=== PATIENT | female | born 1990 | race Caucasian/White ===

== ENCOUNTER 2017-11-17 22:09 | Emergency (ER) | payer MEDICAID, SELFPAY ==
[2017-11-17 22:10] VITALS: BP 136/87; PULSE 103; RESP 18; TEMP 37; O2SAT 100; BMI 22.6
--- NOTE | 2017-11-17 22:22 | EKG12_ITS ---
Test Reason : SEIZURE Blood Pressure : / mmHG Vent. Rate : 078 BPM Atrial Rate : 078 BPM P-R Int : 126 ms QRS Dur : 076 ms QT Int : 368 ms P-R-T Axes : 050 056 055 degrees QTc Int : 419 ms Normal sinus rhythm Normal ECG Confirmed by ART LIMON, ANGELICA ([id number]), film editor CRISTIANO BARAHONA ([id number]) on 11/23/2017 9:14:48 AM Referred By: Confirmed By:ANGELICA CORDOVA MD
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
[2017-11-17] MEDS: Acetaminophen 500 MG Tablet 1000 MG PO (22:37)
[2017-11-17] MEDS: Ondansetron ODT 4 MG Tablet PO (22:37)
[2017-11-17 22:48] LABS: Absolute Neutrophil Count 3.4 X10^3/uL (2.0-7.7); Basophil# 0.04 X10^3/uL; Basophil% 0.5 % (0-1); Eosinophil# 0.33 X10^3/uL; Eosinophils% 4.1 % (0-5); Hematocrit 41.8 % (37-47); Hemoglobin 14.3 g/dl (12.0-15.0); Lymphocyte % 41.3 % (19-41); Mean Corp Hgb Conc 34.2 g/gl (32-36); Mean Corpuscular Hgb 30.5 pg (27.0-32.0); Mean Corpuscular Volume 89.1 fL (81-99); Mean Platelet Vol. 10.7 fl (6.2-12.0); Monocyte# 0.95 X10^3/uL; Monocyte% 11.9 % (0-10); Neutrophil # 3.37 X10^3/uL (2.7-7.7); Neutrophil % 42.1 % (47-70); Platelet Count 252 K/mm3 (150-450); RBC Distribution Width CV 12.3 % (11.6-14.6); RBC Distribution Width SD 39.8 fl (35.1-43.9); Red Blood Count 4.69 M/mm3 (4.2-5.4)
[2017-11-17 22:52] LABS: POSITIVE COUNT NO; POSITIVE DIFFERENTIAL NO; POSITIVE MORPHOLOGY NO
[2017-11-17 23:00] LABS: Bacteria 0 SEEN /hpf (None Seen); Mucous, Urine 0 SEEN /hpf (<or=2+); Red Blood Cells-Urine 0 SEEN /hpf (0-5)
[2017-11-17 23:05] LABS: ALB/GLOB Ratio 0.9 RATIO (0.9-2.4); AST(SGOT) 8 U/L (15-37); Alanine Aminotransfer ALT/SGPT 12 U/L (13-56); Albumin, Serum 3.5 g/dL (3.2-5.0); Alkaline Phosphatase 66 U/L (45-117); Anion Gap 7 (5-15); BUN 14 mg/dL (7-18); BUN/Creat Ratio 13.9 RATIO (10-20); Calcium,Total 8.9 mg/dL (8.5-10.1); Chloride 107 mmol/L (98-107); Creatinine, Serum 1.01 mg/dL (0.55-1.02); EST Glomerular Filtration Rate 70 mL/min (>60); Est Glom Filt Rate - Afr Amer 84 mL/min (>60); Estimated Creatinine Clearance 78.32 ml/min; Globulin 3.8 g/dL (2.2-4.2); Glucose 87 mg/dL (74-106); Potassium 4.1 mmol/L (3.5-5.1); Protein, Total 7.3 g/dL (6.4-8.2); Sodium Level 140 mmol/L (136-145)
[2017-11-17 23:07] LABS: Color, Urine Yellow (Yellow); Glucose, Dipstick Normal (Normal); Ketone-Dipstick Negative (Negative); Leukocyte Esterase-Dipstick Negative /ul (Negative); Nitrite-Dipstick Negative (Negative); Occult Blood-Urine Negative /ul (Negative); Protein-Dipstick Negative (Negative); Specific Gravity, Urine 1.015 (1.002-1.030); Urine Bilirubin Dipstick Negative (Negative); Urine Clarity Cloudy (Clear); Urine Urobilinogen Normal (Normal)
[2017-11-17 23:11] LABS: Lactic Acid 1.1 mmol/L (0.4-2.0)
[2017-11-17 23:17] LABS: Amorphous Sediment 4+
[2017-11-17 23:18] LABS: Coarse Granular Cast 0-5 SEEN /lpf (0-5 /lpf)
[2017-11-17 23:19] LABS: Squamous Epithelial Cells - UA 0-5 SEEN /hpf (5-10); White Blood Cells 0-5 SEEN /hpf (0-5)
[2017-11-17 23:27] LABS: Amphetamine Urine VISTA NEGATIVE (<1000 ng/mL); Barbiturate Urine VISTA NEGATIVE (< 200 ng/mL); Benzodiazepine Urine VISTA NEGATIVE (< 200 ng/mL); Cocaine Urine VISTA NEGATIVE (< 300 ng/mL); Ecstacy Urine VISTA NEGATIVE (< 500 ng/mL); Methadone Urine VISTA NEGATIVE (< 300 ng/mL); PCP Urine VISTA NEGATIVE (< 25 ng/mL); THC Urine VISTA NEGATIVE (< 50 ng/mL); Vista UDS pH Range 7
[2017-11-18 00:11] LABS: Internal QC Validated? YES +Cl - CLEAR BKGD; Pregnancy, Urine Negative Negative
[2017-11-18 00:27] VITALS: BP 124/76; PULSE 76; RESP 16; O2SAT 98
== END 2017-11-18 00:31 | disposition home or self-care (01) ==
PROVIDERS: Emergency Provider Emergency Medicine; Family Provider Family Medicine; PCP Family Medicine
DX: R55 Syncope and collapse (principal); I48.91 Unspecified atrial fibrillation; F17.200 Nicotine dependence, unspecified, uncomplicated; Z79.899 Other long term (current) drug therapy
CPT/HCPCS: 80053; 80307; 80320; 81001; 81025; 83605; 85025; 93005; 99285; A4216; G0480

== ENCOUNTER → 2018-01-05 07:27 | Outpatient (CLI) | payer MEDICAID, SELFPAY ==
--- NOTE | 2018-01-14 11:51 | EEG_ITS ---
- Electroencephalogram Date of service 01/05/2018 This is an 18 channel electroencephalogram performed with photic stimulation and hyperventilation as well as EKG reference leads on this 27-year-old female with a history of losing track of time. International 10-20 electrode placement system is utilized. And remained awake throughout the recording without evidence of lateralizing or epileptiform changes. Background activity is 10-12 Hz symmetrically in the posterior leads which attenuates with eye opening. Hyperventilation is performed for 4 minutes with good effort with no lateralizing or epileptiform changes. Photic stimulation generates a normal symmetric driving response in the posterior leads , EKG rhythm strip recording is normal sinus rhythm throughout the recording. Impression: Normal awake electroencephalogram
== END ==
PROVIDERS: Family Provider Family Medicine; PCP Family Medicine; Visit Provider Family Medicine
DX: R56.9 Unspecified convulsions (principal)
CPT/HCPCS: 95819

== ENCOUNTER 2018-03-16 23:48 | Emergency (ER) | payer MEDICAID, SELFPAY ==
[2018-03-16 23:51] VITALS: BP 112/76; PULSE 81; RESP 18; TEMP 36.4; O2SAT 100; BMI 23.9
--- NOTE | 2018-03-17 00:26 | CT_ITS ---
STUDY: CT ABDOMEN AND PELVIS WITHOUT CONTRAST REASON FOR EXAM: Female, 27 years old. Left-sided abdominal pain and left groin pain for 2 days. RADIATION DOSAGE (If Supplied By Facility): CTDIvol = ( 6.95 ) mGy, DLP = ( 324.73 ) mGycm TECHNIQUE: Transaxial images were obtained from the dome of the diaphragm to the symphysis pubis without oral contrast, and without intravenous contrast. Sagittal and coronal images were reconstructed. Individualized dose optimization techniques were used for this CT. COMPARISON: CT of abdomen and pelvis dated August 28, 2013. FINDINGS: The visualized lung bases are unremarkable. The visualized portions of the heart are within normal limits. Normal liver. There is non-visualization of the gallbladder, which may be secondary to either contraction or a prior cholecystectomy. Normal spleen. Normal pancreas. Normal bilateral adrenal glands. There are nonobstructing right-sided renal calculi with the largest measuring about 3 mm in size. There are nonobstructing left-sided renal calculi with the largest measuring about 4 mm. There is no evidence for hydronephrosis, hydroureter or radiopaque ureteral calculus. Normal visualized stomach. There is no evidence for dilated bowel, ascites or pneumoperitoneum. The small bowel has a grossly normal appearance. Stool is visible throughout the colon with scattered diverticula. The appendix is visualized and appears normal. Normal abdominal aorta. There is venous distention of the inferior vena cava (IVC). Normal retroperitoneum. Normal urinary bladder. Normal visualized uterus. There is a small umbilical hernia containing fat. Normal osseous structures. CT/Abdomen/Pelvis without Cont IMPRESSION: 1. Nonobstructing bilateral renal calculi. 2. No CT evidence of acute intra-abdominal disease. Electronically Signed: Rachel Ortiz MD at 1:40 EDT , Service support ,
--- NOTE | 2018-03-17 00:39 | ED.DCSUM_ITS ---
- ER Visit Summary Date of Service: 03/17/18 Chief Complaint: [] Left hip and groin pain History of Present Illness: The patient is a 27 F complaining of left hip and groin pain for last 3 days. Gradual onset continuous stabbing pain. Current severity is mild after Tylenol. It was moderate. It hurts worse when she walks too long or sits too long. She went to [facility] and they gave her prednisone for possible sciatica and doxycycline for possible infection. They did no lab work or imaging studies. She came here for further evaluation. They did not tell her why they placed her on antibiotic. She denies a history of any sex since July. She denies any urinary symptoms. She did have a remote STD years ago but is not sexually active. She is on the NuvaRing. She has had sciatica in the past but this feels different. On the posterior lateral and medial portion of her left leg. Stops at her knee. She felt some lymph nodes were swollen in her groin a few days ago but that resolved. She said she had a temperature of 101 tonight. She took Tylenol she made it go away. Physical Examination: [] Vital signs reviewed General: Well-nourished well-developed Head: Normocephalic atraumatic Eyes: Pupils equal round and reactive to light extraocular movements intact ENT: TMs clear no hemotympanum no trauma Neck: Nontender full range of motion Cardiovascular: Regular rate rhythm no murmurs normal S1-S2 Respiratory: No distress clear to auscultation bilaterally chest nontender Abdomen: Soft tenderness left groin and left lower abdomen. nondistended normal bowel sounds no masses Back: Nontender no CVA tenderness Extremities. Mild tenderness left groin in left lateral thigh and quad. Decreased range of motion secondary to pain. Skin: Normal color no trauma Neuro alert oriented cranial nerves II through XII intact normal strength sensation reflexes Test Results: [] Emergency Department Course and Treatment: [] Patient did not want anything for symptoms. Lab work and CT abdomen pelvis obtained. Lab work is unremarkable including CBC chemistry and urine and . CT abdomen pelvis just shows renal calculi only. This is not the cause of her symptoms. These are inciden dotty findings. Nothing acute noted. Patient was reassured. She will not take the doxycycline. I think she was given this for chlamydia she had negative STI testing in the last several months. She is not sexually active. I told her she does not have to take this. It does not sound like sciatica. This could be viral related. She will follow-up as an outpatient. I do not think she needs to take the prednisone. Treatment Plan: [] Disposition: [] Impression: [] Left lower abdominal pain Left groin pain Left leg pain This note was generated with [employer] dictation software. It may contain incorrect words, spelling, and punctuation that were not noted in review of the chart prior to signing ED Disposition - Plan for ED Patient: Chief Complaint: Other, Pain/Inj Referrals: Deshaun Chao MD [Primary Care Provider] -
[2018-03-17 00:47] LABS: Absolute Lymphocyte Count 3.08 X10^3/ul (0.83-4.51); Absolute Neutrophil Count 5.5 X10^3/uL (2.0-7.7); Basophil# 0.03 X10^3/uL; Basophil% 0.3 % (0-1); Eosinophil# 0.27 X10^3/uL; Eosinophils% 2.8 % (0-5); Hematocrit 40.3 % (37-47); Hemoglobin 14.6 g/dl (12.0-15.0); Lymphocyte # 3.08 X10^3/ul (4.0); Mean Corp Hgb Conc 36.2 g/gl (32-36); Mean Corpuscular Hgb 31.3 pg (27.0-32.0); Mean Corpuscular Volume 86.3 fL (81-99); Mean Platelet Vol. 10.5 fl (6.2-12.0); Monocyte% 7.3 % (0-10); Neutrophil # 5.52 X10^3/uL (2.7-7.7); Neutrophil % 57.4 % (47-70); Platelet Count 259 K/mm3 (150-450); RBC Distribution Width CV 11.8 % (11.6-14.6); RBC Distribution Width SD 36.9 fl (35.1-43.9); Red Blood Count 4.67 M/mm3 (4.2-5.4); White Blood Count 9.6 K/mm3 (4.4-11.0)
[2018-03-17 00:47] LABS: Bacteria 0 SEEN /hpf (None Seen); Mucous, Urine 0 SEEN /hpf (<or=2+); Red Blood Cells-Urine 0 SEEN /hpf (0-5); White Blood Cells 0 SEEN /hpf (0-5)
[2018-03-17 00:50] LABS: Color, Urine Yellow (Yellow); Glucose, Dipstick Normal (Normal); Ketone-Dipstick Negative (Negative); Leukocyte Esterase-Dipstick Negative /ul (Negative); Nitrite-Dipstick Negative (Negative); Occult Blood-Urine Negative /ul (Negative); Protein-Dipstick Negative (Negative); Specific Gravity, Urine 1.015 (1.002-1.030); Urine Bilirubin Dipstick Negative (Negative); Urine Clarity Clear (Clear); Urine Urobilinogen Normal (Normal); Urine pH 6.5 (5.0 - 8.0)
[2018-03-17 00:50] LABS: POSITIVE COUNT NO; POSITIVE DIFFERENTIAL NO; POSITIVE MORPHOLOGY NO
[2018-03-17 00:58] LABS: Anion Gap 10 (5-15); BUN 12 mg/dL (7-18); BUN/Creat Ratio 13.8 RATIO (10-20); Calcium,Total 9.2 mg/dL (8.5-10.1); Chloride 105 mmol/L (98-107); Creatinine, Serum 0.87 mg/dL (0.55-1.02); EST Glomerular Filtration Rate 82 mL/min (>60); Est Glom Filt Rate - Afr Amer 100 mL/min (>60); Estimated Creatinine Clearance 90.93 ml/min; Glucose 100 mg/dL (74-106); Potassium 3.5 mmol/L (3.5-5.1); Sodium Level 137 mmol/L (136-145)
[2018-03-17 00:58] LABS: Squamous Epithelial Cells - UA 0-5 SEEN /hpf (5-10)
[2018-03-17 01:06] LABS: Pregnancy, Serum, hCG Quali. NEGATIVE Negative (0-9 Nonpreg)
[2018-03-17 02:15] VITALS: BP 107/75; PULSE 78; RESP 18; O2SAT 98
[2018-03-17 02:18] VITALS: BP 107/78; PULSE 78; RESP 18; O2SAT 98
--- NOTE | 2018-03-17 02:18 | ED.DEP ---
ED Disposition - Plan for ED Patient: Disposition: Home or Assisted Living Chief Complaint: Other, Pain/Inj Instructions: Abdominal Pain Referrals: Deshaun Chao MD [Primary Care Provider] -
== END 2018-03-17 02:21 | disposition home or self-care (01) ==
PROVIDERS: Emergency Provider Emergency Medicine; Family Provider Family Medicine; PCP Family Medicine
DX: R10.32 Left lower quadrant pain (principal); M79.652 Pain in left thigh; I48.91 Unspecified atrial fibrillation; Z86.19 Personal history of other infectious and parasitic diseases; Z72.0 Tobacco use; Z79.899 Other long term (current) drug therapy
CPT/HCPCS: 74176; 80048; 81001; 84703; 85025; 99284; A4216

== ENCOUNTER 2018-05-08 20:26 | Emergency (ER) | payer MEDICAID, SELFPAY ==
[2018-05-08 20:27] VITALS: BP 121/85; PULSE 108; RESP 20; TEMP 36.6; O2SAT 100; BMI 24.4
--- NOTE | 2018-05-08 20:34 | EKG12_ITS ---
Test Reason : CP Blood Pressure : / mmHG Vent. Rate : 099 BPM Atrial Rate : 099 BPM P-R Int : 124 ms QRS Dur : 074 ms QT Int : 324 ms P-R-T Axes : 065 074 062 degrees QTc Int : 415 ms Normal sinus rhythm Normal ECG Confirmed by ART LIMON, ANGELICA ([id number]), manuscript editor RCISTIANO BARAHONA ([id number]) on 05/11/2018 2:30:39 PM Referred By: TRISTEN Confirmed By:ANGELICA CORDOVA MD
--- NOTE | 2018-05-08 20:35 | RAD_ITS ---
STUDY: X-RAY CHEST REASON FOR EXAM: Female, 28 years old. Chest pain TECHNIQUE: Single frontal view COMPARISON: September 01, 2015 FINDINGS: The lungs are clear and expanded. There is no demonstrated pleural abnormality. Normal size heart. Normal mediastinum and elan. Normal visualized pulmonary arteries. Normal visualized aortic arch and descending thoracic aorta. Mild degenerative changes of the thoracic spine. Normal visualized ribs, clavicles, and shoulders. There is no demonstrated abnormality of the visualized soft tissue structures of the upper abdomen. RAD/Chest 1 View (Portable) IMPRESSION: Normal x-ray examination of the chest. Electronically Signed: Joey Cavanaugh DO at 21:35 EST Tel [phone], Service support ,
--- NOTE | 2018-05-08 20:35 | ED.VISSUMM ---
- ER Visit Summary Date of Service: 05/08/18 Chief Complaint: [] Sharp nonspecific chest pain to left neck and left shoulder since 6 PM today History of Present Illness: The patient is a 28 F [] history of chest pain etiology which is unclear, PVCs, indicates today around 6 PM she began having sharp chest pain to the left parasternal region left shoulder and left neck. She indicates she did not exert herself anyway she was did not do anything to cause the pain, she had a history of chest pain the past with a prior extensive evaluation including stress test echograms, though unremarkable she has had what sounds like a Holter monitor as her event monitors and was told one time she had frequent PVCs, she was seen by Dr. Cabral of [facility] who is now , she is on statalol for the PVCs, she indicates she had an ablation procedure for the PVCs but it did not work and she continued to have the PVCs so we was placed on that medicine. She has no history of DE PE or DVT she was not ill in any way today, she also has a history of reflux, she is not take any medicines for the reflux and this pain is not identical to previous episodes of reflux, no fever no cough normal bowel bladder habits denies , she believes she had PVCs today, On the monitoring manager here she is in a sinus rhythm no PVCs her EKG shows a sinus rhythm nothing acute Physical Examination: [] Blood pressure is 121/85 heart rate is 90 pulse ox is 100% on room air she is in no distress she takes her hand and draws it to her left sternal border across her left shoulder and then across her left neck General, no distress resting comfortably HEENT is generally unremarkable The neck is supple no adenopathy, palpation of the neck is entirely unremarkable Cardiovascular, regular rate and rhythm Lungs, clear bilateral Abdomen, soft nontender Extremities, no clubbing cyanosis or edema, palpation of the shoulder is entirely unremarkable full range of motion her pulses are symmetric upper lower extremities are completely normal Neurologic, awake alert answering questions appropriately moving all 4 extremities Nothing reproduces the pain She has had this pain in the past has had extensive prior evaluation at a different facility with a automatic lump making machine tender who is screening labs EKG Patient screening labs are all generally unremarkable please see those reports, I would like to reassess the patient she has is feeling better I explained to her we could arrange for admission versus discharge outpatient management report. Repeat her troponin, however she states she feels better does not wish to be admitted does not wish to have the troponin repeated wants to go home she indicates now that she is still under the care of [address] Cabral his colleagues who she can see for outpatient management of this recurring chest pain, she will follow-up with them return for change in symptoms Test Results: [] Emergency Department Course and Treatment: [] Treatment Plan: [] Disposition: [] Home stable Impression: [] Chest pain resolved This note was generated with [employer] dictation software. It may contain incorrect words, spelling, and punctuation that were not noted in review of the chart prior to signing ED Disposition - Plan for ED Patient: Chief Complaint: Chest Pain Referrals: Deshaun Chao MD [Primary Care Provider] -
[2018-05-08 20:38] VITALS: O2SAT 100
--- NOTE | 2018-05-08 20:38 | ED.DCSUM_ITS ---
- ER Visit Summary Date of Service: 05/08/18 Chief Complaint: [] Sharp nonspecific chest pain to left neck and left shoulder since 6 PM today History of Present Illness: The patient is a 28 F [] history of chest pain etiology which is unclear, PVCs, indicates today around 6 PM she began having sharp chest pain to the left parasternal region left shoulder and left neck. She indicates she did not exert herself anyway she was did not do anything to cause the pain, she had a history of chest pain the past with a prior extensive evaluation including stress test echograms, though unremarkable she has had what sounds like a Holter monitor as her event monitors and was told one time she had frequent PVCs, she was seen by Dr. Cabral of [facility] who is now , she is on statalol for the PVCs, she indicates she had an ablation procedure for the PVCs but it did not work and she continued to have the PVCs so we was placed on that medicine. She has no history of ID PE or DVT she was not ill in any way today, she also has a history of reflux, she is not take any medicines for the reflux and this pain is not identical to previous episodes of reflux, no fever no cough normal bowel bladder habits denies , she believes she had PVCs today, On the youth nutritional monitor here she is in a sinus rhythm no PVCs her EKG shows a sinus rhythm nothing acute Physical Examination: [] Blood pressure is 121/85 heart rate is 90 pulse ox is 100% on room air she is in no distress she takes her hand and draws it to her left sternal border across her left shoulder and then across her left neck General, no distress resting comfortably HEENT is generally unremarkable The neck is supple no adenopathy, palpation of the neck is entirely unremarkable Cardiovascular, regular rate and rhythm Lungs, clear bilateral Abdomen, soft nontender Extremities, no clubbing cyanosis or edema, palpation of the shoulder is entirely unremarkable full range of motion her pulses are symmetric upper lower extremities are completely normal Neurologic, awake alert answering questions appropriately moving all 4 extremities Nothing reproduces the pain She has had this pain in the past has had extensive prior evaluation at a different facility with a salon professional who is screening labs EKG Patient screening labs are all generally unremarkable please see those reports, I would like to reassess the patient she has is feeling better I explained to her we could arrange for admission versus discharge outpatient management report. Repeat her troponin, however she states she feels better does not wish to be admitted does not wish to have the troponin repeated wants to go home she indicates now that she is still under the care of [address] Cabral his colleagues who she can see for outpatient management of this recurring chest pain, she will follow-up with them return for change in symptoms Test Results: [] Emergency Department Course and Treatment: [] Treatment Plan: [] Disposition: [] Home stable Impression: [] Chest pain resolved This note was generated with [employer] dictation software. It may contain incorrect words, spelling, and punctuation that were not noted in review of the chart prior to signing ED Disposition - Plan for ED Patient: Chief Complaint: Chest Pain Referrals: Deshaun Chao MD [Primary Care Provider] -
[2018-05-08 20:43] LABS: Absolute Lymphocyte Count 3.41 X10^3/ul (0.83-4.51); Absolute Neutrophil Count 4.7 X10^3/uL (2.0-7.7); Basophil# 0.03 X10^3/uL; Basophil% 0.3 % (0-1); Eosinophil# 0.32 X10^3/uL; Eosinophils% 3.5 % (0-5); Hematocrit 43.5 % (37-47); Hemoglobin 15.2 g/dl (12.0-15.0); Lymphocyte # 3.41 X10^3/ul (4.0); Lymphocyte % 37.1 % (19-41); Mean Corp Hgb Conc 34.9 g/gl (32-36); Mean Corpuscular Hgb 30.5 pg (27.0-32.0); Mean Corpuscular Volume 87.3 fL (81-99); Mean Platelet Vol. 10.9 fl (6.2-12.0); Monocyte# 0.72 X10^3/uL; Monocyte% 7.8 % (0-10); Neutrophil # 4.71 X10^3/uL (2.7-7.7); Neutrophil % 51.2 % (47-70); Platelet Count 293 K/mm3 (150-450); RBC Distribution Width CV 12.6 % (11.6-14.6); RBC Distribution Width SD 39.6 fl (35.1-43.9); Red Blood Count 4.98 M/mm3 (4.2-5.4); White Blood Count 9.2 K/mm3 (4.4-11.0)
[2018-05-08 20:44] LABS: POSITIVE COUNT NO; POSITIVE DIFFERENTIAL NO; POSITIVE MORPHOLOGY NO
[2018-05-08] MEDS: Ondansetron 4 MG/2 ML Vial IV (20:48)
[2018-05-08] MEDS: 0.9% Normal Saline 1,000 ML 1000 ML IV (20:50)
[2018-05-08] MEDS: Aspirin 81 MG TAB.CHEW 324 MG PO (20:51)
[2018-05-08 21:01] LABS: D-Dimer Quantitative (DVT/PE) < 0.27 FEU/ug/m (0.27-0.49)
[2018-05-08 21:02] LABS: Anion Gap 8 (5-15); BUN 13 mg/dL (7-18); BUN/Creat Ratio 16.3 RATIO (10-20); Calcium,Total 9.1 mg/dL (8.5-10.1); Chloride 106 mmol/L (98-107); EST Glomerular Filtration Rate 91 mL/min (>60); Est Glom Filt Rate - Afr Amer 110 mL/min (>60); Estimated Creatinine Clearance 98.01 ml/min; Glucose 129 mg/dL (74-106); Potassium 3.3 mmol/L (3.5-5.1); Sodium Level 139 mmol/L (136-145)
[2018-05-08 21:11] LABS: BNP,B-Type NATRIURETIC PEPTIDE 11.9 pg/mL (0-100)
[2018-05-08 22:18] VITALS: BP 110/75; RESP 16; O2SAT 98
--- NOTE | 2018-05-08 22:21 | ED.DEP ---
ED Disposition - Plan for ED Patient: Chief Complaint: Chest Pain Instructions: ED Chest Pain Atypical Unkn Cause Referrals: Deshaun Chao MD [Primary Care Provider] -
[2018-05-08 22:59] VITALS: BP 111/78; PULSE 63; RESP 18; O2SAT 98
== END 2018-05-08 22:59 | disposition home or self-care (01) ==
LOC: ED 20:43
PROVIDERS: Emergency Provider Emergency Medicine; Family Provider Family Medicine; PCP Family Medicine
DX: R07.9 Chest pain, unspecified (principal); I49.3 Ventricular premature depolarization; Z79.899 Other long term (current) drug therapy
CPT/HCPCS: 71045; 80048; 83880; 84484; 85025; 85379; 93005; 96361; 96374; 96375; 99285; J7030; A4216; J2405

== ENCOUNTER 2018-06-12 14:30 | Outpatient (RCR) | payer MEDICAID, SELFPAY ==
--- NOTE | 2018-05-16 09:50 | HP.PTEVAL_ITS ---
Patient's Visit Information QUE HER is a 28 year old F referred to Physical Therapy by TAWNYA FLORES with a diagnosis of lumbar radiculopathy and sacral neuritis. Date of Evaluation: 05/10/18 Physical Therapist: Yousuf Mccallum - Visit Plan Frequency: 2x /Week Duration: 4-6 Weeks Plan: Continue AT. - Subjective Findings: Pt. is here today for his initial evaluation with diagnosis of lumbar radiculopathy and sacral neuritis. Pt. reports having pain for many years and has seen many physician without reduction in symptoms. She has recently not been able to work due to intensity of her pain. Pt. reports having low back pain that radiates into her sacrum and BLEs. Pt. denies N/T in either LE. Increased pain: walking, standing, sitting for too long, lying for too long. Decreased pain: nothing. Pt. reports having some urinary incontience, but not loss of function. Pt. relays this to bladder issues. Pt. reports having weakness in BLEs, but not sudden and is biteral. Her legs do not give out on her. Pt. reports all ADLs are difficult, due to increased pain. Pt. is hopeful to get an MRI and figure out what is causing her symptoms. Pt. did have an MRI in 2014 showing an L5-S1 disc protrustion. - Pain Back Pain Intensity (Out of 10): 8 Pain Intensity Range: 4, 10 - Objective POSTURE: Pt. has slouched posture in both sitting and standing. Pt. has increased pain with attempts to correct. Pt. has FH and rounded shoulder. Pt. has normal iliac crest heights. Normal FERNIE. Pt. has increased pain with initial standing and did not alleviate with further standing. PALPATION: Pt. has increased pain with palpation thorughout bilateral erector spinea, B gluteal regions. Pt. has increased pain with spring testing throughout L1-L5 no hypombility noted. Pt. has increased pain with all quadrant testing throughout sacral spine. NEURO: pt. has normal sensation of bilateral LEs throughout. Pt. ahs 2+ patellar and achilels DTR bilaterally. ROM: LUMBAR SPINE: flexion- mod loss increase NW, ext mod loss increase NW, SB mod loss increase NW bilat, rotation mod loss bilat increase NW. Pt. has tight HS and hip flexors bilaterally. Pt. has normal hip ROM bilat without increase in symptoms. MMT: RLE- ankle 5/5 throughout; knee- ext 4/5, flexion 4/5; hip- flexon 4/5, abd 4/5, ext 4/5. LLE- ankle 5/5 throughout; knee- ext 4/5, flexion 4/5; hip- flexon 4/5, abd 4/5, ext 4/5. Core strength- poor. increased pain with all testing. GAIT: Pt. was able to ambulate for 525' with out AD, but requested to sit down due to high intensity of pain. Pt. has flexed posture with gait, decreased step length bilat. Pt. has increased rigidity of trunk with movement. Flexed psoture throughout with occassional use of UEs on hips to stabilize. - Special Tests L/S Slump test left side: Negative L/S Slump test right side: Negative L/S Left Straight Leg Raise: Negative L/S Right Straight Leg Raise: Negative Lumbar Standing: Flexion - Mechanical Response: No effect Lumbar Standing: Flexion - Symptoms During Testing: Increases Lumbar Standing: Flexion - Symptoms After Testing: No worse Lumbar Standing: Extension - Mechanical Response: No effect Lumbar Standing: Extension - Symptoms During Testing: Increases Lumbar Standing: Extension - Symptoms After Testing: Worse Lumbar Standing: Right Side Glides - Mechanical Response: No effect Lumbar Standing: Right Side [place] - Symptoms During Testing: Abolishes Lumbar Standing: Right Side [place] - Symptoms After Testing: No worse Lumbar Standing: Left Side [place] - Mechanical Response: No effect Lumbar Standing: Left Side [place] - Symptoms During Testing: Increases Lumbar Standing: Left Side [place] - Symptoms After Testing: No worse Lumbar Lying: Flexion - Mechanical Response: No effect Lumbar Lying: Flexion - Symptoms During Testing: Increases Lumbar Lying: Flexion - Symptoms After Testing: No worse Lumbar Lying: Extension - Mechanical Response: No effect Lumbar Lying: Extension - Symptoms During Testing: Increases Lumbar Lying: Extension - Symptoms After Testing: Worse - Goals Goal 1:: Pt. to be I with HEP. Goal Time Frame: 4-6 Weeks Goal 2:: Pt. to have increased core and BLE strength by 1/2 grade of all effected musculature. Goal Time Frame: 4-6 Weeks Goal 3:: Pt. to tolerated walking unlimited distances with improved gait pattern allowing for increased community mobility. Goal Time Frame: 4-6 Weeks Goal 4:: Pt. to sleep throughout the night with 0-4/10 pain allowing for increased quality of life. Goal Time Frame: 4-6 Weeks Goal 5:: Pt. to tolerated all work activies with 0-2/10 pain in lumbar spine. - Rehabilitation Potential Physical Therapy Diagnosis: Pt. has signs and symptoms consistent with high le vels of back pain. Pt. has normal neuro testing, but has marked weakness through her core and BLEs. Pt. has limited tolerance to all functional mobility. Pt. would benefit from PT to increase tolerance to mobility and initial core stability. Pt. did not tolerate positioning required to complete most modalities at this point int time. I would like her to start to pool to increase tolerance to mobility and decrease symptoms, then progress to land if tolerated. Rehabilitation Potential: Fair - Anticipated Interventions Patient/Client Instruction: Educate patient on: Condition, Plan of Care, Risk Factors, Benefits of Fitness Program For the Purpose of:: To improve health and function, To foster healthy habits, To improve decision making, To facilitate caregiver knowledge, To improve self management, To prevent re-injury, To improve ability to perform tasks related to life management, To improve tolerance to ADL's Therapeutic Exercise to Include: Strength training, Power training, Endurance training, Balance training, Body mechanics, Postural training, Flexibilty training, Gait and locomotor training, In an aquatic setting, Passive ROM, Active ROM, Dynamic Lumbar Stabilization, Cristy Exercises, Scapular Strength/Stabilization For the Purpose of:: To decrease pain, To decrease swelling/inflammation, To increase ROM, To improve nutrient delivery to tissue, To increase oxygenation perfusion, To improve muscle performance and motor function, To improve ability to perform ADL's, To increase tolerance to activity/condition/position, To improve performance and independence with ADL's, To improve ability of physical actions for home/community/work/leisure, To improve gait and locomotor functions, To improve health of tissue, To decrease soft tissue restriction, To increase flexibility/ROM Manual Therapy Techniques to Include: Mobilization, Passive ROM, Functional dry needling, Soft tissue mobilization For the Purpose of:: To decrease pain, To decrease swelling/inflammation, To increase ROM, To improve nutrient delivery to tissue, To improve gait and locomotor functions, To improve health of tissue, To decrease soft tissue restriction IF ES: Yes Cryotherapy (ice pack, ice massage): Yes Thermo therapy (hot pack): Yes Ultrasound (thermal/non thermal): Yes For the Purpose of:: To decrease pain, To decrease swelling/inflammation, To increase ROM, To improve nutrient delivery to tissue, To increase oxygenation perfusion, To improve muscle performance and motor function Thank you for the opportunity to evaluate your patient. For Medicare and Medicare HMO plans, please review the plan of care and approve it. It will need to be FAXED BACK to us at [phone] for Medicare purposes. For Medicare only, by signing this I certify the plan of care. Please let me know if there are questions or concerns regarding this plan of care. Physician Signature: Date:
--- NOTE | 2018-08-01 14:19 | HP.PT.NRP ---
HP - Discharge Summary (1) - Patient Information QUE HER was seen in my office for initial evaluation on 05/10/18. The following Plan of Care was established for this patient: Initial Frequency: 2x /Week Initial Duration: 4-6 Weeks - Anticipated Interventions Patient/Client Instruction: Educate patient on: Condition, Plan of Care, Risk Factors, Benefits of Fitness Program For the Purpose of:: To improve health and function, To foster healthy habits, To improve decision making, To facilitate caregiver knowledge, To improve self management, To prevent re-injury, To improve ability to perform tasks related to life management, To improve tolerance to ADL's Therapeutic Exercise to Include: Strength training, Power training, Endurance training, Balance training, Body mechanics, Postural training, Flexibilty training, Gait and locomotor training, In an aquatic setting, Passive ROM, Active ROM, Dynamic Lumbar Stabilization, Cristy Exercises, Scapular Strength/Stabilization For the Purpose of:: To decrease pain, To decrease swelling/inflammation, To increase ROM, To improve nutrient delivery to tissue, To increase oxygenation perfusion, To improve muscle performance and motor function, To improve ability to perform ADL's, To increase tolerance to activity/condition/position, To improve performance and independence with ADL's, To improve ability of physical actions for home/community/work/leisure, To improve gait and locomotor functions, To improve health of tissue, To decrease soft tissue restriction, To increase flexibility/ROM Manual Therapy Techniques to Include: Mobilization, Passive ROM, Functional dry needling, Soft tissue mobilization For the Purpose of:: To decrease pain, To decrease swelling/inflammation, To increase ROM, To improve nutrient delivery to tissue, To improve gait and locomotor functions, To improve health of tissue, To decrease soft tissue restriction IF ES: Yes Cryotherapy (ice pack, ice massage): Yes Thermo therapy (hot pack): Yes Ultrasound (thermal/non thermal): Yes For the Purpose of:: To decrease pain, To decrease swelling/inflammation, To increase ROM, To improve nutrient delivery to tissue, To increase oxygenation perfusion, To improve muscle performance and motor function This patient was last seen in our office 06/12/18. Pertinent comments regarding their Physical therapy will appear below: Pt. was seen for her low back pain in PT. Pt. was treated in aquatic setting and was making mild progress. Pt. had to cancel several appointments and only attended 4 appoints since starting PT. Pt. cancelled the last 3 and the final one she did not show up to. Pt. has not been seen in ~7 weeks and will be DC from PT at this point intime. At this point I will be discontinuing this patient from physical therapy. I would be happy to see this patient again in the future if found appropriate by the physician. Thank you! MITCH CunninghamT
== END 2018-06-12 19:00 | disposition home or self-care (01) ==
LOC: PT 14:30
PROVIDERS: Family Provider Family Medicine; PCP Family Medicine
DX: M54.17 Radiculopathy, lumbosacral region (principal)
CPT/HCPCS: 97113; 97162

== ENCOUNTER 2018-06-19 20:12 | Emergency (ER) | payer MEDICAID, SELFPAY ==
[2018-06-19 20:13] VITALS: BP 103/59; PULSE 98; RESP 16; TEMP 36.7; O2SAT 98; BMI 23.5
[2018-06-19] MEDS: LORazepam 1 MG Tablet PO (21:12)
--- NOTE | 2018-06-19 21:19 | CM.ED ---
SOCIAL WORK ASSESSMENT REFERRAL DATE: 06/19/18 DATE OF ASSESSMENT: 06/19/18 INFORMANT: SELF-REFERRAL REASON FOR CONSULT: ANXIETY INFORMATION OBTAINED FROM: PATIENT LIVING ARRANGEMENTS: PT LIVES HOME WITH MAXIM CANALES AND CHILDREN. EMPLOYMENT/FINANCIAL: PT REPORTS HAS NOT WORKED SINCE DECEMBER AND HAS FILED FOR DISABILITY. 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 SUPPORTS: PT REPORTS GOOD SUPPORT FROM [employer] AND EXTENDED FAMILY. SOCIAL/FAMILY STRESSORS: PT REPORTS FEELINGS OF BEING OVERWHELMED WITH FAMILY ISSUES AND HEALTH ISSUES. PT'S COUSIN CAME TO [place] FROM [place] AND FAMILY PUT ALL THE RESPONSIBILITY OF ASSISTING COUSIN WITH FINDING A JOB AND HOUSING ON PT. PT STATES HER COUSIN HAS OWN MENTAL HEALTH ISSUES AND HER MENTAL HEALTH WAS GIVING PT MORE ANXIETY. PT REPORTS COUSIN IS CONSTANTLY PARANOID AND PT'S ANXIETY ESCALATED TODAY WHEN ASSISTING COUSIN WITH GETTING BACK AND FORTH TO APPOINTMENTS. PT REPORTS HAS OWN HEALTH ISSUES TO WORRY ABOUT AND STATES NEVER HAS TIME FOR ANYTHING ELSE. MENTAL HEALTH HX: PT ADMITS TO HX OF ANXIETY AND PANIC ATTACKS. SUBSTANCE ABUSE HX: PT ADMITS TO EXPERIMENTATION OF SUBSTANCES A TEENAGER. PT DENIES ANY CURRENT USE. INTERVENTIONS: INFORMATION ON OUTPT COUNSELING AND PSYCH SERVICES. REFERRAL TO [facility]. ASSESSMENT: PT IS A 28 Y/O FEMALE WHO PRESENTS TO THE ED WITH ANXIETY. NURSING INFORMED THIS WORKER PT HAD PRESCRIPTION FOR XANAX THAT HAD AND PT IN WANTING TO KNOW IF ABLE TO TAKE THE MEDICATION. UPON ENTERING ROOM, PT UP IN ROOM PACING. INTRODUCED THIS WORKER'S ROLE AND REASON FOR REFERRAL. PT EXPLAINED SOCIAL/FAMILY STRESSORS TO THIS WORKER AND PREVIOUS HX OF MENTAL HEALTH. PT REPORTS DOES NOT CURRENTLY FOLLOW WITH ANY MENTAL HEALTH SERVICES AND EXPLAINED EXTENSIVE CARE TEAM OF HEALTH CARE PROVIDERS INCLUDING PCP, GEAR SHAPER, PAIN MANAGEMENT, PHYSICAL THERAPY, OB, AND CHIROPRACTOR. PT DISCUSSED HER HX OF SEIZURES AND NEED FOR NEURO FOLLOW UP. PT REPORTS HER OB HAS DISCUSSED HER ANXIETY AND RECOMMENDED FOLLOW UP WITH OUTPT MENTAL HEALTH SERVICES. PT STATES HAS NOT FOUND THE TIME TO DO SO AND PUT IT OFF. DISCUSSED SERVICES AND EDUCATION PROVIDED ON [facility]. PT IN AGREEMENT WITH REFERRAL AND SCHEDULING OF INTAKE ASSESSMENT TOMORROW AT 2PM. INFORMED BY PT AND NURSING ATIVAN HAS BEEN ORDERED FOR PT. UPDATED NURSING ON THIS WORKER ASSESSMENT. REFERRAL FAXED TO THE [facility] AT THIS TIME. PLAN: HOME WITH REFERRAL TO [facility] FOR INTAKE APPOINTMENT TOMORROW AT 2PM.
--- NOTE | 2018-06-19 22:23 | ED.VISSUMM ---
- ER Visit Summary Date of Service: 06/19/18 Chief Complaint: [Anxiety reaction] History of Present Illness: The patient is a 28 F [presents the emergency department with complaint of feeling very anxious. Patient states her symptoms started around 10 AM. Patient states that she thinks that her trigger was her cousin who called her up and who is very intense and hard to be around. Patient feels very anxious and jittery and feels like her skin is crawling. Patient has felt sweaty. She had leftover Valium from 2016 but she was not sure if she should take it being that it is so old. Patient has had prior anxiety reaction like this before. She denies feeling suicidal or homicidal. Patient does have a history of seizures, chronic pain, PVCs, SVT, and anxiety.] Physical Examination: [HEENT-PERRLA, EOMI. Cranial nerves II through XII grossly intact. TMs clear. Mucous membranes moist. No adenopathy. Cardiovascular-regular rate and rhythm without murmur or ectopy Lungs-clear to auscultation, chest wall stable without crepitus or subcu emphysema Abdomen-normoactive bowel sounds, soft, nontender, no rebound or rigidity, no peritoneal signs. Extremities-intact ?4, normal range of motion, normal pulses, atraumatic] Test Results: [None indicated] Emergency Department Course and Treatment: [Patient was given a milligram of Ativan and felt significantly improved.] Treatment Plan: [Patient will be given a prescription for as needed Ativan and she will follow-up with counseling tomorrow] Disposition: [Discharged home in stable condition] Impression: [Anxiety reaction] This note was generated with [employer] dictation software. It may contain incorrect words, spelling, and punctuation that were not noted in review of the chart prior to signing ED Disposition - Plan for ED Patient: Chief Complaint: Anxiety Referrals: Deshaun Chao MD [Primary Care Provider] -
--- NOTE | 2018-06-19 22:25 | ED.DEP ---
ED Disposition - Plan for ED Patient: Chief Complaint: Anxiety Instructions: ED Panic Attack Prescriptions: Lorazepam [Ativan] 1 mg PO TID PRN #10 tab PRN Reason: Anxiety Referrals: Deshaun Chao MD [Primary Care Provider] - 3-5 Days
[2018-06-19 22:41] VITALS: PULSE 86; RESP 18; O2SAT 99
== END 2018-06-19 22:41 | disposition home or self-care (01) ==
LOC: ED 21:28
PROVIDERS: Emergency Provider Emergency Medicine; Family Provider Family Medicine; PCP Family Medicine
DX: F41.1 Generalized anxiety disorder (principal); I49.3 Ventricular premature depolarization; I47.1 Supraventricular tachycardia; G89.29 Other chronic pain; Z79.899 Other long term (current) drug therapy
CPT/HCPCS: 99283

== ENCOUNTER → 2018-06-22 11:00 | Outpatient (CLI) | payer MEDICAID, SELFPAY ==
[2018-06-19 20:13] VITALS: BMI 23.5
== END ==
PROVIDERS: Family Provider Family Medicine; PCP Family Medicine
DX: I48.3 Typical atrial flutter (principal)
CPT/HCPCS: 93225; 93226

== ENCOUNTER 2018-08-23 18:39 | Emergency (ER) | payer MEDICAID, SELFPAY ==
[2018-06-29 15:34] VITALS: BMI 23.5
[2018-08-23 18:40] VITALS: BP 128/87; PULSE 124; RESP 16; TEMP 36.9; O2SAT 98; BMI 23.8
[2018-08-23 19:16] LABS: Absolute Lymphocyte Count 1.59 X10^3/ul (0.83-4.51); Absolute Neutrophil Count 8.3 X10^3/uL (2.0-7.7); Basophil# 0.03 X10^3/uL; Basophil% 0.3 % (0-1); Eosinophil# 0.05 X10^3/uL; Eosinophils% 0.5 % (0-5); Hematocrit 43.7 % (37-47); Hemoglobin 15.4 g/dl (12.0-15.0); Lymphocyte # 1.59 X10^3/ul (4.0); Lymphocyte % 15.2 % (19-41); Mean Corp Hgb Conc 35.2 g/gl (32-36); Mean Corpuscular Hgb 30.9 pg (27.0-32.0); Mean Corpuscular Volume 87.8 fL (81-99); Mean Platelet Vol. 10.2 fl (6.2-12.0); Monocyte# 0.49 X10^3/uL; Monocyte% 4.7 % (0-10); Neutrophil # 8.27 X10^3/uL (2.7-7.7); Neutrophil % 79.1 % (47-70); Platelet Count 290 K/mm3 (150-450); RBC Distribution Width CV 12.6 % (11.6-14.6); RBC Distribution Width SD 40.5 fl (35.1-43.9); Red Blood Count 4.98 M/mm3 (4.2-5.4); White Blood Count 10.5 K/mm3 (4.4-11.0)
[2018-08-23 19:18] LABS: POSITIVE COUNT NO; POSITIVE DIFFERENTIAL NO; POSITIVE MORPHOLOGY NO
[2018-08-23 19:33] LABS: Anion Gap 9 (5-15); BUN 10 mg/dL (7-18); BUN/Creat Ratio 10.9 RATIO (10-20); Calcium,Total 9.2 mg/dL (8.5-10.1); Chloride 109 mmol/L (98-107); Creatinine, Serum 0.92 mg/dL (0.55-1.02); EST Glomerular Filtration Rate 77 mL/min (>60); Est Glom Filt Rate - Afr Amer 94 mL/min (>60); Estimated Creatinine Clearance 85.23 ml/min; Glucose 110 mg/dL (74-106); Potassium 3.4 mmol/L (3.5-5.1); Sodium Level 139 mmol/L (136-145)
[2018-08-23 19:37] LABS: Amphetamine Urine VISTA NEGATIVE (<1000 ng/mL); Barbiturate Urine VISTA NEGATIVE (< 200 ng/mL); Benzodiazepine Urine VISTA NEGATIVE (< 200 ng/mL); Cocaine Urine VISTA NEGATIVE (< 300 ng/mL); Ecstacy Urine VISTA NEGATIVE (< 500 ng/mL); Methadone Urine VISTA NEGATIVE (< 300 ng/mL); PCP Urine VISTA NEGATIVE (< 25 ng/mL); THC Urine VISTA NEGATIVE (< 50 ng/mL); Vista UDS pH Range 5
--- NOTE | 2018-08-23 20:00 | CM.ED ---
Social Work Assessment Referral Date: 08/23/18 Date of Assessment: 08/23/18 Informant: NURSING Reason for Consult: DEPRESSION Information obtained from: PATIENT Living Arrangements: PATIENT LIVES HOME WITH ÁNGEL MADRIGAL, MAXIM MARTINS AND 4 CHILDREN Employment/Financial: PATIENT IS CURRENTLY NOT WORKING. PATIENT DENIES ANY FINANCIAL CONCERNS. Supports: PATIENT REPORTS LIMITED SUPPORT. MOTHER LIVES IN [place]. NO LOCAL FAMILY MEMBERS. Social/Family Stressors: PATIENT REPORTS RELATIONSHIP ISSUES. PATIENT JUST FOUND OUT THIS DAY THAT SIG ROHAN IS CHEATING. PATIENT CONCERNED SHE NOW HAS AN STD. PATIENT HAS APPOINTMENT TOMORROW AT THE [facility] FOR STD TESTING. PATIENT REPORTS MULTIPLE OTHER STRESSORS D/T HEALTH ISSUES. Mental Health History: PATIENT ADMITS TO HX OF ANXIETY, DEPRESSION, AND BIPOLAR. PATIENT WAS PREVIOUSLY TREATED WITH MEDICATION-XANAX. PATIENT DOES NOT DO WELL ON ANTI DEPRESSANTS. Substance Abuse History: PATIENT ADMITS TO EXPERIMENTING WITH SUBSTANCES. PATIENT DENIES ANY SUBSTANCE ABUSE. Interventions: SOCIAL SERVICE ASSESSMENT CRISIS APPOINTMENT AT THE [facility]ING [facility] SCHEDULED FOR TOMORROW, 08/24/18 AT 11AM. Assessment: PATIENT IS A 28 Y/O FEMALE WHO PRESENTS TO THE ED BY POLICE. PATIENT HAS A HX OF CUTTING AND SCRATCHED HER WRIST AND ALSO DID BITE HER HAND IN ORDER TO TAKE THE PAIN AWAY. PATIENT STATES FOUND OUT THIS EVENING SIG OTHER HAD CHEATED ON HER. PATIENT TEARFUL WHEN EXPLAINING THE EVENTS THAT BROUGHT HER TO THE HOSPITAL. PATIENT STATES SIG ROHAN LOOKED AT HER WRIST AND CALLED THE POLICE. PATIENT DENIES ANY SUICIDAL IDEATION. PATIENT STATES I WOULD NOT KILL MYSELF. PATIENT DENIES ANY PLAN OR INTENT. PATIENT HAS INTAKE APPOINTMENT SCHEDULED AT THE [facility] FOR NEXT MONDAY. DISCUSSED SETTING UP CRISIS APPOINTMENT FOR TOMORROW. PATIENT IN AGREEMENT. DISCUSSED WITH DR. PEREZ, AND RECOMMENDED THE REMOVAL OF THE SITTER THIS PROTOCOL IS NOT NECESSARY AT THIS TIME. CALL TO THE [facility]ING [facility]. CRISIS APPOINTMENT SCHEDULED FOR TOMORROW AT 11AM. PATIENT PROVIDED WITH 24 HOUR CRISIS HOTLINE. UPDATED PATIENT'S NURSE ON THIS WORKER'S ASSESSMENT AND D/C PLAN. PLAN: HOME WITH CRISIS FOLLOW UP APPOINTMENT TOMORROW, Monday08/24/18 AT 11AM.
--- NOTE | 2018-08-23 20:03 | ED.VISSUMM ---
- ER Visit Summary Date of Service: 08/23/18 Chief Complaint: Depression History of Present Illness: The patient is a 28 F who presents with depression that has been getting worse over the past week. Patient states she recently found out that her fianc? was cheating on her. She states she has had suicidal thoughts but denies any suicidal plan. Currently, the patient denies any suicidal thoughts. Patient states she has children that she wants to live for. Patient states she has a history of anxiety. Patient admits to some chest pain but relates that to anxiety. Patient also admits to some recent nausea and vomiting that she also relates to anxiety. Physical Examination: Vital signs are stable except for mild tachycardia of 124. Patient is afebrile. Patient is in no acute distress. Patient does have a depressed mood and a flat affect. Patient admits to some suicidal thoughts but denies any suicidal ideations or plan. Oral mucosa is pink and moist. Neck is supple. Trachea is midline. There is no JVD noted. Heart was regular rate and rhythm. Lungs are clear and equal bilateral. Abdomen is soft. Bowel sounds are normal. There is no tenderness. Cranial nerves II through XII are intact. There are no focal motor or sensory deficits noted. Test Results: CBC and basic metabolic profile were obtained and were essentially within normal limits. Urine tox screen was negative. Serum alcohol level is normal. test was negative. Emergency Department Course and Treatment: electrical worker was in to evaluate the patient. She is going to try to make arrangements to have the patient see her counselor tomorrow instead of next week. She will contract for safety with the patient. Patient understands and is agreeable with the plan. All questions were answered. Disposition: Discharge home Impression: Depression This note was generated with [employer] dictation software. It may contain incorrect words, spelling, and punctuation that were not noted in review of the chart prior to signing ED Disposition - Plan for ED Patient: Disposition: Home or Assisted Living Diagnosis: Depression Instructions: ED Depression Referrals: Deshaun Chao MD [Primary Care Provider] - Additional Instructions: Follow-up with the crisis counseling center tomorrow morning at 11 AM.
--- NOTE | 2018-08-23 20:07 | ED.DCSUM_ITS ---
- ER Visit Summary Date of Service: 08/23/18 Chief Complaint: Depression History of Present Illness: The patient is a 28 F who presents with depression that has been getting worse over the past week. Patient states she recently found out that her fianc? was cheating on her. She states she has had suicidal thoughts but denies any suicidal plan. Currently, the patient denies any suicidal thoughts. Patient states she has children that she wants to live for. Patient states she has a history of anxiety. Patient admits to some chest pain but relates that to anxiety. Patient also admits to some recent nausea and vomiting that she also relates to anxiety. Physical Examination: Vital signs are stable except for mild tachycardia of 124. Patient is afebrile. Patient is in no acute distress. Patient does have a depressed mood and a flat affect. Patient admits to some suicidal thoughts but denies any suicidal ideations or plan. Oral mucosa is pink and moist. Neck is supple. Trachea is midline. There is no JVD noted. Heart was regular rate and rhythm. Lungs are clear and equal bilateral. Abdomen is soft. Bowel sounds are normal. There is no tenderness. Cranial nerves II through XII are intact. There are no focal motor or sensory deficits noted. Test Results: CBC and basic metabolic profile were obtained and were essentially within normal limits. Urine tox screen was negative. Serum alcohol level is normal. test was negative. Emergency Department Course and Treatment: community mental health worker was in to evaluate the patient. She is going to try to make arrangements to have the patient see her counselor tomorrow instead of next week. She will contract for safety with the patient. Patient understands and is agreeable with the plan. All questions were answered. Disposition: Discharge home Impression: Depression This note was generated with [employer] dictation software. It may contain incorrect words, spelling, and punctuation that were not noted in review of the chart prior to signing ED Disposition - Plan for ED Patient: Disposition: Home or Assisted Living Diagnosis: Depression Instructions: ED Depression Referrals: Deshaun Chao MD [Primary Care Provider] - Additional Instructions: Follow-up with the crisis counseling center tomorrow morning at 11 AM.
[2018-08-23 20:17] LABS: Pregnancy, Serum, hCG Quali. NEGATIVE Negative (0-9 Nonpreg)
[2018-08-23 21:28] VITALS: PULSE 100; RESP 17; RESP 18; O2SAT 100; O2SAT 99
== END 2018-08-23 21:30 | disposition home or self-care (01) ==
PROVIDERS: Emergency Provider Emergency Medicine; Family Provider Family Medicine; PCP Family Medicine
DX: F32.9 Major depressive disorder, single episode, unspecified (principal)
CPT/HCPCS: 80048; 80307; 80320; 84703; 85025; 99283; G0480

== ENCOUNTER 2020-09-25 15:47 | Emergency (ER) | payer MEDICAID, SELFPAY ==
[2020-09-25 15:49] VITALS: BP 94/69; PULSE 102; RESP 17; TEMP 36.1; O2SAT 96; BMI 25.7
--- NOTE | 2020-09-25 15:59 | ED.DCSUM_ITS ---
History of Present Illness Chief Complaint: Neuro S/Sx Informant: Patient Narrative: 30-year-old female presents out of concern for seizure and facial twitching. She tells me that she has a history of stress-induced petit mall seizures but has prescribed Ativan for it. She also history of A. fib and has been on sotalol. She tells me that around noon she thought it was odd that she would be having the petit mall seizure because she has not had 1 for about a year. She then noticed that her right eye seemed droopy and then she began to have twitching of the right side of her face. Symptoms resolved around 3:00. Her mom was concerned she was having a stroke and wanted her evaluated. Patient states that she frequently has muscle spasms. She denies any new medications or medication dosing adjustments. Past Medical History - Allergies and Home Meds Allergies/Adverse Reactions: Allergies metronidazole [From Flagyl] Allergy (Verified 09/25/20 15:48) Upset Stomach Penicillins [PCN] Allergy (Verified 09/25/20 15:48) Hives ANTIDEPRESSANTS Adverse Reaction (Uncoded 09/25/20 15:48) Other suicidal ideation Primary Care Physician: Deshaun Chao MD [Primary Care Provider] - 1 Week Past Medical History: - - Pseudoseizures A. fib Surgical History: noncontributory Smoking Status: Current every day smoker Drugs: None Review of Systems General: Denies: Chills, Fever, Sweats Eyes: Denies: Visual changes - bilaterally, Diplopia ENT: Denies: Rhinorrhea, Sore throat Cardiovascular: Denies: Chest pain, Palpitations Respiratory: Denies: Dyspnea, Cough, Dyspnea on exertion Gastrointestinal: Denies: Abdominal pain, Nausea, Vomiting, Diarrhea, Melena, Hematochezia Genitourinary: Denies: Dysuria, Hematuria, Frequency Musculoskeletal: Denies: Back pain, Extremity Pain Skin: Denies: Rash, Wounds Neurological: Reports: - - See history of present illness. Denies: Headache, Weakness, Parasthesia, Numbness Physical Exam Vital Signs/Narrative: Vital Signs Temp Pulse Resp BP Pulse Ox 09/25/20 15:49 97.0 F L 102 H 17 94/69 96 Inital Vital Signs reviewed: Yes General: Well nourished, Well developed, No Acute Distress Head: Normocephalic, Atraumatic Eyes: Perrl, EOMI ENT: Moist mucous membranes, No rhinorrhea Neck: Supple, Nontender Cardiovascular: Regular rate, Regular rhythm, No murmurs Respiratory: No distress, CTA bilaterally, Chest nontender Abdomen: Soft, Nontender, Nondistended, Normal bowel sounds Back: Nontender, Normal Inspection Extremities: Nontender, No edema Skin: Normal color, No rash Neurological: Alert, Oriented x3, Cranial nerves II-XII grossly intact, Normal Strength, Normal Sensation Psychological: Normal affect, Normal Mood Diagnostic/Tx/Re-eval Laboratory Last Values WBC 7.7 K/mm3 (4.4-11.0) 09/25/20 16:30 Corrected WBC Cancelled 09/25/20 16:13 RBC 4.65 M/mm3 (4.2-5.4) 09/25/20 16:30 Hgb 14.3 g/dL (12.0-15.0) 09/25/20 16:30 Hct 42.9 % (37-47) 09/25/20 16:30 MCV 92.3 fL (81-99) 09/25/20 16:30 MCH 30.8 pg (27.0-32.0) 09/25/20 16:30 MCHC 33.3 g/dL (32-36) 09/25/20 16:30 RDW Std Deviation 42.8 fl (35.1-43.9) 09/25/20 16:30 RDW Coeff of Debra 12.7 % (11.6-14.6) 09/25/20 16:30 Plt Count 263 K/mm3 (150-450) 09/25/20 16:30 MPV 10.0 fl (6.2-12.0) 09/25/20 16:30 Immature Gran % (Auto) 0.100 % (0.0-0.9) 09/25/20 16:30 Neut % (Auto) 54.6 % (47-70) 09/25/20 16:30 Lymph % (Auto) 33.1 % (19-41) 09/25/20 16:30 [place] % (Auto) 8.8 % (0-10) 09/25/20 16:30 Eos % (Auto) 3.0 % (0-5) 09/25/20 16:30 Baso % (Auto) 0.4 % (0-1) 09/25/20 16:30 Absolute Neuts (auto) 4.2 X10^3/uL (2.0-7.7) 09/25/20 16:30 Absolute Lymphs (auto) 2.56 X10^3/uL (0.83-4.51) 09/25/20 16:30 Total Counted Cancelled 09/25/20 16:13 Neutrophils % (Manual) Cancelled 09/25/20 16:13 Band Neutrophils % Cancelled 09/25/20 16:13 Lymphocytes % (Manual) Cancelled 09/25/20 16:13 Monocytes % (Manual) Cancelled 09/25/20 16:13 Eosinophils % (Manual) Cancelled 09/25/20 16:13 Basophils % (Manual) Cancelled 09/25/20 16:13 Metamyelocytes % Cancelled 09/25/20 16:13 Myelocytes % Cancelled 09/25/20 16:13 Promyelocytes % Cancelled 09/25/20 16:13 Blast Cells % Cancelled 09/25/20 16:13 Plasma Cell % (Manual) Cancelled 09/25/20 16:13 Other Cells % Cancelled 09/25/20 16:13 Nucleated RBC % 0 % (0-5) 09/25/20 16:30 Nucleated RBCs/100 WBC Cancelled 09/25/20 16:13 Differential Comment Cancelled 09/25/20 16:13 Diff Path Review Cancelled 09/25/20 16:13 Hypersegmented Neuts Cancelled 09/25/20 16:13 Atypical Lymphocytes Cancelled 09/25/20 16:13 Reactive Lymphocytes Cancelled 09/25/20 16:13 Smudge Cells Cancelled 09/25/20 16:13 Toxic Granulation Cancelled 09/25/20 16:13 Toxic Vacuolation Cancelled 09/25/20 16:13 Dohle Bodies Cancelled 09/25/20 16:13 Camille Rods Cancelled 09/25/20 16:13 Platelet Estimate Cancelled 09/25/20 16:13 Plt Morphology Comment Cancelled 09/25/20 16:13 RBC Morphology Cancelled 09/25/20 16:13 RBC Morphology Cancelled 09/25/20 16:13 Polychromasia Cancelled 09/25/20 16:13 Hypochromasia Cancelled 09/25/20 16:13 Poikilocytosis Cancelled 09/25/20 16:13 Basophilic Stippling Cancelled 09/25/20 16:13 Anisocytosis Cancelled 09/25/20 16:13 Microcytosis Cancelled 09/25/20 16:13 Macrocytosis Cancelled 09/25/20 16:13 Spherocytes Cancelled 09/25/20 16:13 Sickle Cells Cancelled 09/25/20 16:13 Target Cells Cancelled 09/25/20 16:13 Tear Drop Cells Cancelled 09/25/20 16:13 Ovalocytes Cancelled 09/25/20 16:13 Stomatocytes Cancelled 09/25/20 16:13 [place] Bodies Cancelled 09/25/20 16:13 [place] Cells Cancelled 09/25/20 16:13 Bite Cells Cancelled 09/25/20 16:13 Crenated Cell Cancelled 09/25/20 16:13 Acanthocytes (Spur) Cancelled 09/25/20 16:13 Rouleaux Cancelled 09/25/20 16:13 Schistocytes Cancelled 09/25/20 16:13 Sodium 140 mmol/L (136-145) 09/25/20 16:30 Potassium 3.9 mmol/L (3.5-5.1) 09/25/20 16:30 Chloride 109 mmol/L (98-107) H 09/25/20 16:30 Carbon Dioxide 27.0 mmol/L (21.0-32.0) 09/25/20 16:30 Anion Gap 4 (5-15) L 09/25/20 16:30 BUN 11 mg/dL (7-18) 09/25/20 16:30 Creatinine 0.96 mg/dL (0.55-1.02) 09/25/20 16:30 Estim Creat Clear Calc 80.22 ml/min 09/25/20 16:30 Est GFR (MDRD) Af Amer 87 mL/min (>60) 09/25/20 16:30 Est GFR (MDRD) Non-Af 72 mL/min (>60) 09/25/20 16:30 BUN/Creatinine Ratio 11.4 RATIO (10-20) 09/25/20 16:30 Glucose 98 mg/dL (74-106) 09/25/20 16:30 Calcium 9.1 mg/dL (8.5-10.1) 09/25/20 16:30 POC Glucose 114 mg/dL (70-110) H 09/25/20 16:36 - Medical Decision Making No events on the monitor. Her heart rate has slowed to a normal sinus rhythm at 82 on the monitor. Blood pressure is currently 108/79 Basic blood work showed glucose 114 normal potassium and calcium. She is not anemic. Patient symptoms have resolved. I do not believe the patient had a stroke. Should be discharged home with instructions to follow-up with her doctors return if worsening or concerns ED Disposition - Plan for ED Patient: Disposition: Home or Assisted Living Diagnosis: Facial twitching Instructions: Muscle Spasm Referrals: Deshaun Chao MD [Primary Care Provider] - 1 Week
[2020-09-25 16:32] VITALS: BMI 25.7
[2020-09-25 16:36] LABS: Absolute Lymphocyte Count 2.56 X10^3/uL (0.83-4.51); Absolute Neutrophil Count 4.2 X10^3/uL (2.0-7.7); Basophil# 0.03 X10^3/uL; Basophil% 0.4 % (0-1); Eosinophil# 0.23 X10^3/uL; Hematocrit 42.9 % (37-47); Hemoglobin 14.3 g/dL (12.0-15.0); Lymphocyte # 2.56 X10^3/ul (0.83-4.51); Lymphocyte % 33.1 % (19-41); Mean Corp Hgb Conc 33.3 g/dL (32-36); Mean Corpuscular Hgb 30.8 pg (27.0-32.0); Mean Corpuscular Volume 92.3 fL (81-99); Monocyte# 0.68 X10^3/uL; Monocyte% 8.8 % (0-10); NRBC Flagged by Analyzer 0 % (0-5); Neutrophil # 4.22 X10^3/uL (2.7-7.7); Neutrophil % 54.6 % (47-70); Platelet Count 263 K/mm3 (150-450); RBC Distribution Width CV 12.7 % (11.6-14.6); RBC Distribution Width SD 42.8 fl (35.1-43.9); Red Blood Count 4.65 M/mm3 (4.2-5.4); White Blood Count 7.7 K/mm3 (4.4-11.0)
[2020-09-25 16:45] LABS: Bedside Glucose 114 mg/dL (70-110)
[2020-09-25 16:48] LABS: Anion Gap 4 (5-15); BUN 11 mg/dL (7-18); BUN/Creat Ratio 11.4 RATIO (10-20); Calcium,Total 9.1 mg/dL (8.5-10.1); Chloride 109 mmol/L (98-107); Creatinine, Serum 0.96 mg/dL (0.55-1.02); EST Glomerular Filtration Rate 72 mL/min (>60); Est Glom Filt Rate - Afr Amer 87 mL/min (>60); Estimated Creatinine Clearance 80.22 ml/min; Glucose 98 mg/dL (74-106); Potassium 3.9 mmol/L (3.5-5.1); Sodium Level 140 mmol/L (136-145)
== END 2020-09-25 17:11 | disposition home or self-care (01) ==
PROVIDERS: Emergency Provider Emergency Medicine; PCP Family Medicine
DX: R25.3 Fasciculation (principal); F17.200 Nicotine dependence, unspecified, uncomplicated
CPT/HCPCS: 36415; 80048; 82962; 85025; 99282

== ENCOUNTER 2021-06-25 20:05 | Outpatient (CLI) | payer MEDICAID, SELFPAY ==
[2021-06-25 21:13] VITALS: BMI 28.0
[2021-06-25 21:22] VITALS: BP 113/69; PULSE 88; TEMP 37.1
[2021-06-25 22:13] LABS: Absolute Lymphocyte Count 2.46 X10^3/uL (0.83-4.51); Basophil# 0.02 X10^3/uL; Basophil% 0.2 % (0-1); Eosinophil# 0.25 X10^3/uL; Hematocrit 36.6 % (37-47); Hemoglobin 12.5 g/dL (12.0-15.0); Lymphocyte # 2.46 X10^3/ul (0.83-4.51); Lymphocyte % 19.3 % (19-41); Mean Corp Hgb Conc 34.2 g/dL (32-36); Mean Corpuscular Hgb 32.1 pg (27.0-32.0); Mean Corpuscular Volume 93.8 fL (81-99); Mean Platelet Vol. 10.3 fl (6.2-12.0); Monocyte# 0.88 X10^3/uL; Monocyte% 6.9 % (0-10); NRBC Flagged by Analyzer 0 % (0-5); Neutrophil # 9.01 X10^3/uL (2.7-7.7); Neutrophil % 70.6 % (47-70); Platelet Count 261 K/mm3 (150-450); RBC Distribution Width CV 13.3 % (11.6-14.6); RBC Distribution Width SD 45.7 fl (35.1-43.9); White Blood Count 12.8 K/mm3 (4.4-11.0)
[2021-06-25 22:16] LABS: Color, Urine Yellow (Yellow); Glucose, Dipstick Normal (Normal); Ketone-Dipstick 15 mg/dl (Negative); Leukocyte Esterase-Dipstick 100 /ul (Negative); Nitrite-Dipstick Negative (Negative); Occult Blood-Urine Negative /ul (Negative); Protein-Dipstick 15 mg/dl (Negative); Specific Gravity, Urine 1.025 (1.002-1.030); Urine Bilirubin Dipstick Negative (Negative); Urine Clarity Clear (Clear); Urine Urobilinogen Normal (Normal)
[2021-06-25 23:01] LABS: ALB/GLOB Ratio 0.7 RATIO (0.9-2.4); AST(SGOT) 22 U/L (15-37); Alanine Aminotransfer ALT/SGPT 51 U/L (13-56); Albumin, Serum 2.8 g/dL (3.2-5.0); Alkaline Phosphatase 84 U/L (45-117); Anion Gap 7 (5-15); BUN 10 mg/dL (7-18); BUN/Creat Ratio 15.9 RATIO (10-20); Calcium,Total 8.7 mg/dL (8.5-10.1); Chloride 105 mmol/L (98-107); Creatinine, Serum 0.63 mg/dL (0.55-1.02); EST Glomerular Filtration Rate 117 mL/min (>60); Est Glom Filt Rate - Afr Amer 142 mL/min (>60); Estimated Creatinine Clearance 121.12 ml/min; Glucose 96 mg/dL (74-106); Potassium 3.7 mmol/L (3.5-5.1); Protein, Total 6.8 g/dL (6.4-8.2); Sodium Level 136 mmol/L (136-145)
[2021-06-26 02:40] VITALS: PULSE 100; O2SAT 100
--- NOTE | 2021-06-26 22:33 | OB.TRI.NOTE ---
HPI - General HPI Narrative QUE HER, is a 31 F at 24.1 weeks gestation who presents to triage with lower abdominal pain and pressure with urination. Positive movement. Denies any loss of fluid, vaginal bleeding or contractions. Maternal Data Information JOY Calculator Estimated Delivery Date Method Current WG Current Estimate 10/14/21 Manual 24w 2d PFSH PFSH Home Medications escitalopram oxalate [Lexapro] 20 mg PO DAILY 06/25/21 [History Last Taken 06/25/21] famotidine [Pepcid] 10 mg PO BID 06/25/21 [History Last Taken 06/25/21] vit-iron fum-folic ac [ Fa] tab PO DAILY 06/25/21 [History Last Taken 06/25/21] valacyclovir [Valtrex] 500 mg PO DAILY 06/25/21 [History Last Taken 06/25/21] Allergy/AdvReac Type Severity Reaction Status Date / Time metronidazole [From Flagyl] Allergy Upset Verified 09/25/20 15:48 Stomach ANTIDEPRESSANTS AdvReac Other Uncoded 09/25/20 15:48 Social History (Updated 06/29/18 @ 17:19 by Bobby BELL, ARABELLA) Smoking Status: Current every day smoker History Elective abortions Hx Para 3 Spontaneous abortions Hx # Term Pregnancies Ectopic pregnancies Hx # Pregnancies Multiple births # of living children ROS Eyes Eyes: Denies blurry vision Cardiovascular Cardiovascular: Reports none; Denies chest pain at rest, chest pain with activity or dizziness Respiratory/Chest Respiratory/Chest: Denies cough or dyspnea Gastrointestinal Gastrointestinal: Reports abdominal pain, change in stool character and other Details: increased odor with stools- hx of cdiff Musculoskeletal Musculoskeletal: Reports none Integumentary Integumentary: Reports none; Denies rash Neurologic Neurologic: Denies dizziness, headache(s) or other visual disturbances Psychiatric Psychiatric: Reports none Physical Exam Const alert and no apparent distress General Appearance: cooperative Orientation / Consciousness: awake Exam Limitations: no limitations HEENT normocephalic Eyes General Eye: normal appearance of both eyes Neck full ROM Chest inspection of chest normal Resp normal respiratory effort and normal air movement Effort and Inspection: symmetric chest movement Auscultation: clear to auscultation bilaterally Cardio regular rate GI soft to palpation, non-tender and non-distended Inspection: and other Back/Spine normal ROM Extremity full ROM, normal capillary refill and no calf tenderness Skin no rashes or lesions noted Neuro oriented x3 and CN's II-XII intact bilaterally Psych mental status grossly normal Assessment & Plan (1) 24 weeks gestation of : (2) Abdominal pain affecting , antepartum: (3) Abnormality of urination: PLAN: FHT 135-140 bpm via doppler TOCO- no contractions or irritability noted UA- positive for ketones, protein and leukocyte Urine culture sent CBC and CMP normal D/C home with instructions for increased hydration, labor precautions and follow up in office
== END 2021-06-25 23:59 | disposition home or self-care (01) ==
LOC: WPOUT 20:15 → WP 20:26
PROVIDERS: PCP Family Medicine; Visit Provider Advanced Practice Midwife
DX: O26.892 Other specified pregnancy related conditions, second trimester (principal); R10.30 Lower abdominal pain, unspecified; O99.332 Smoking (tobacco) complicating pregnancy, second trimester; F17.200 Nicotine dependence, unspecified, uncomplicated; O99.891 Other specified diseases and conditions complicating pregnancy; R30.9 Painful micturition, unspecified; Z3A.24 24 weeks gestation of pregnancy
CPT/HCPCS: 36415; 59025; 59050; 80053; 81002; 85025; 99218; G0378

== ENCOUNTER → 2022-07-29 | Outpatient (CLI) | payer MEDICAID, SELFPAY ==
[2022-07-29 16:31] LABS: hCG Titer Quant., Serum 9612 mIU/mL (1-3)
== END | disposition home or self-care (01) ==
LOC: LAB 14:39
PROVIDERS: PCP Family Medicine; Visit Provider Obstetrics & Gynecology
DX: N91.2 Amenorrhea, unspecified (principal)
CPT/HCPCS: 36415; 84702

== ENCOUNTER → 2022-08-03 | Outpatient (CLI) | payer MEDICAID, SELFPAY ==
--- NOTE | 2022-08-03 15:27 | US_ITS ---
EXAM: US , TRANSVAGINAL CLINICAL INDICATION: viability TECHNIQUE: Real-time transvaginal obstetrical ultrasound of the maternal pelvis and a first trimester with image documentation. Transvaginal imaging was used for better evaluation of the fetus and adnexa. This report was created using [employer] report generation technology. COMPARISON: None. FINDINGS: GESTATION: There is a gestational sac mean sac diameter 1.6 cm age 6 weeks 3 days. There is a yolk sac present that measures 3 mm. There is a pole crown-rump length of 5 mm age 6 weeks 2 days. heart rate is 129 bpm. PLACENTA/AMNIOTIC FLUID: There is a 9 x 2 x 7 mm hypoechoic area in the uterus adjacent to the gestational sac which may represent a subchorionic hemorrhage. UTERUS/CERVIX: Uterus measures 10.1 x 5.0 x 6.7 cm. No myometrial mass. OVARIES: The left ovary measures 2.6 x 1.9 x 2.5 cm. There is a 1.2 x 1.4 x 1.1 cm anechoic structure in the left ovary compatible with a cyst. The right ovary measures 1.7 x 0.9 x 1.3 cm. No mass. FREE FLUID: No free fluid. US/Transvaginal w/Preg US IMPRESSION: Intrauterine gestation with an average ultrasound age of 6 weeks 3 days and ultrasound estimated due date of 03/26/2023. heart rate is 129 bpm. There is a small hypoechoic area adjacent to the gestational sac which may represent a subchorionic hemorrhage. Electronically Signed: Marcel Joshi MD at 0:07 EST ,
== END | disposition home or self-care (01) ==
LOC: US 15:25
PROVIDERS: PCP Family Medicine; Visit Provider Nurse Practitioner Women's Health
DX: N92.0 Excessive and frequent menstruation with regular cycle (principal)
CPT/HCPCS: 76817

== ENCOUNTER → 2022-08-17 | Outpatient (CLI) | payer MEDICAID, SELFPAY ==
[2022-08-20 11:09] LABS: Chlamydia By Nucleic Acid AMP Negative (Negative)
[2022-08-20 13:01] LABS: Gonococcus By Nucleic Acid AMP Negative (Negative)
[2022-08-25 12:52] LABS: HPV APTIMA, High Risk Negative (Negative)
== END | disposition home or self-care (01) ==
LOC: LABSPEC 14:58
PROVIDERS: PCP Family Medicine; Referring Provider Obstetrics & Gynecology; Visit Provider Obstetrics & Gynecology
DX: O09.90 Supervision of high risk pregnancy, unspecified, unspecified trimester (principal)
CPT/HCPCS: 87086; 87491; 87591; 87624; 88175; G0145

== ENCOUNTER → 2022-09-28 | Outpatient (CLI) | payer MEDICAID, SELFPAY | END | disposition home or self-care (01) | LOC: LABSPEC 12:01 | PROVIDERS: PCP Family Medicine; Referring Provider Obstetrics & Gynecology; Visit Provider Obstetrics & Gynecology | DX: O26.899 Other specified pregnancy related conditions, unspecified trimester (principal); N89.8 Other specified noninflammatory disorders of vagina | CPT/HCPCS: 87070; 87205 ==

== ENCOUNTER → 2022-11-04 | Outpatient (CLI) | payer MEDICAID, SELFPAY ==
--- NOTE | 2022-11-04 12:16 | US_ITS ---
STUDY: SECOND AND THIRD TRIMESTER OBSTETRICAL ULTRASOUND REASON FOR EXAM: Female, 32 years old anatomy LMP: December 14, 2022. TECHNIQUE: Transabdominal and Transvaginal TECHNICAL QUALITY: Adequate. PRIOR ULTRASOUND: Comparison is made with prior study August 03, 2022. FINDINGS: There is a single intrauterine fetus. The fetus is in a cephalic presentation. There is demonstrated cardiac activity with a heart rate of 150 bpm. There is a normal amniotic fluid volume. The largest amniotic fluid pocket measures 4.14 cm. The amniotic fluid index (PAULO) is within normal limits. The placenta is anterior in location and is not low lying. There are Grade 0 placental changes. The cervix measures 5.3 cm in length. The bilateral adnexal regions are normal. BIOMETRY: BPD: 4.94 cm: 21 weeks, 0 days HC: 18.08 cm: 20 weeks, 3 days AC: 15.47 cm: 20 weeks, 5 days FL: 3.12 cm: 20 weeks, 5 days CI: 79% FL/BPD: 63% FL/HC: FL/AC: 20% HC/AC: 1.17 age by current US: 20 weeks, 3 days. JOY by current US: March 21, 2023. Estimated weight: 347 grams, +/- 52 grams, 55 %. age by prior US: 19 weeks, 4 days. JOY by prior US: March 26, 2023. Age by LMP: 20 weeks, 1 days. JOY by LMP: March 23, 2023. ANATOMY: Gender: Male Cranium: Normal lateral ventricles. Normal choroid plexus. Normal cerebellum. Normal cisterna magna. Normal face, nose and lips. Chest: Normal 4-chamber heart. Abdomen/Pelvis: Normal diaphragm. Normal stomach. Normal abdominal wall. Normal cord insertion. Normal 3 vessel cord. Normal kidneys. Normal bladder. Spine: Normal cervical spine. Normal thoracic spine. Normal lumbar spine. Normal sacrum. Extremities: Normal bilateral upper extremities. Normal bilateral lower extremities. US/OB Anatomy w/ Transvaginal IMPRESSION: Single live uterine gestation with a mean gestational age of 19 weeks and 4 days. The measurements obtained today fall within the normal expected range. Electronically Signed: Yash Sullivan MD at 15:41 EDT ,
== END | disposition home or self-care (01) ==
PROVIDERS: PCP Family Medicine; Referring Provider Obstetrics & Gynecology; Visit Provider Obstetrics & Gynecology
DX: O09.90 Supervision of high risk pregnancy, unspecified, unspecified trimester (principal); Z3A.00 Weeks of gestation of pregnancy not specified
CPT/HCPCS: 76805; 76817

== ENCOUNTER → 2022-12-21 | Outpatient (CLI) | payer MEDICAID, SELFPAY ==
[2022-12-21 11:13] LABS: Absolute Lymphocyte Count 1.45 X10^3/uL (0.83-4.51); Absolute Neutrophil Count 6.8 X10^3/uL (2.0-7.7); Basophil# 0.04 X10^3/uL; Basophil% 0.4 % (0-1); Eosinophil# 0.23 X10^3/uL; Eosinophils% 2.5 % (0-5); Hematocrit 33.9 % (37-47); Lymphocyte # 1.45 X10^3/ul (0.83-4.51); Lymphocyte % 15.7 % (19-41); Mean Corp Hgb Conc 32.4 g/dL (32-36); Mean Corpuscular Hgb 30.5 pg (27.0-32.0); Mean Corpuscular Volume 93.9 fL (81-99); Mean Platelet Vol. 9.7 fl (6.2-12.0); Monocyte# 0.64 X10^3/uL; Monocyte% 6.9 % (0-10); NRBC Flagged by Analyzer 0 % (0-5); Neutrophil # 6.79 X10^3/uL (2.7-7.7); Neutrophil % 73.4 % (47-70); Platelet Count 280 K/mm3 (150-450); RBC Distribution Width CV 13.3 % (11.6-14.6); RBC Distribution Width SD 45.7 fl (35.1-43.9); Red Blood Count 3.61 M/mm3 (4.2-5.4); White Blood Count 9.3 K/mm3 (4.4-11.0)
[2022-12-21 11:25] LABS: Protein, Urine (Random) 23.1 mg/dL (<11.9); Protein:Creat Ratio 189 mg/g CRE (0-200)
[2022-12-21 11:42] LABS: ALB/GLOB Ratio 0.6 RATIO (0.9-2.4); AST(SGOT) 8 U/L (15-37); Alanine Aminotransfer ALT/SGPT 10 U/L (13-56); Albumin, Serum 2.5 g/dL (3.2-5.0); Alkaline Phosphatase 79 U/L (45-117); Anion Gap 10 (5-15); BUN 5 mg/dL (7-18); BUN/Creat Ratio 7.8 RATIO (10-20); Calcium,Total 8.6 mg/dL (8.5-10.1); Chloride 106 mmol/L (98-107); Creatinine, Serum 0.64 mg/dL (0.55-1.02); EST Glomerular Filtration Rate 113 mL/min (>60); Est Glom Filt Rate - Afr Amer 137 mL/min (>60); Globulin 4.1 g/dL (2.2-4.2); Glucose 139 mg/dL (74-106); Glucose Challenge Gest 1H 50g 139 mg/dL (70-140); Potassium 3.6 mmol/L (3.5-5.1); Protein, Total 6.6 g/dL (6.4-8.2); Sodium Level 137 mmol/L (136-145)
[2022-12-21 12:28] LABS: HIV - WCH Non-Reactive (Nonreactive); Hepatitis B Surface Antigen Non-Reactive (Nonreactive); Hepatitis C Antibody Non-Reactive (Nonreactive); Rubella IgG Reactive (Nonreactive); Syphilis Antibodies Non-reactive
== END | disposition home or self-care (01) ==
LOC: LAB 10:46
PROVIDERS: PCP Family Medicine; Referring Provider Obstetrics & Gynecology; Visit Provider Obstetrics & Gynecology
DX: O09.90 Supervision of high risk pregnancy, unspecified, unspecified trimester (principal); Z87.59 Personal history of other complications of pregnancy, childbirth and the puerperium; Z3A.00 Weeks of gestation of pregnancy not specified
CPT/HCPCS: 36415; 80053; 82570; 82950; 84156; 85025; 86703; 86762; 86780; 86803; 86850; 86900; 86901; 87340

== ENCOUNTER 2023-01-16 16:20 | Outpatient (CLI) | payer MEDICAID, SELFPAY ==
[2023-01-16 16:26] VITALS: BP 105/70; PULSE 96; TEMP 36.2
[2023-01-16 16:48] VITALS: BMI 30.5
--- NOTE | 2023-01-16 17:20 | OB.TRI.HP_ITS ---
HPI - General HPI Narrative QUE HER, is a 32 F who presents with bilateral lower back pain, no ctx or vb but possible LOF. she denies any fevers, co urinary discomfort has a history of bilateral kidney stones Maternal Data Information JOY Calculator Estimated Delivery Date Method Current WG Current Estimate 03/23/23 LMP (Certain) 30w 4d Other Estimates 03/25/23 Ultrasound #1 30w 2d PFSH PFSH Medical History 24 weeks gestation of Abdominal pain affecting , antepartum Abnormality of urination Fungal toenail infection Home Medications famotidine 20 mg tablet (Pepcid) 10 mg PO BID heartburn 06/25/21 [History Last Taken 06/25/21] vit with calcium-iron fum-folic acid 60 mg iron-1 mg tablet 1 tab PO DAILY 06/25/21 [History Last Taken 01/14/23] promethazine 12.5 mg tablet 12.5 mg PO Q6H PRN nausea and vomiting #30 tabs 08/17/22 [Rx Last Taken Unknown] valacyclovir 500 mg tablet (Valtrex) 500 mg PO DAILY #90 tabs 08/17/22 [Rx Last Taken Unknown] valacyclovir 500 mg tablet (Valtrex) 500 mg PO DAILY prevention 08/17/22 [History Last Taken 01/14/23] escitalopram oxalate 20 mg tablet (Lexapro) 10 mg PO DAILY depression 09/28/22 [History Last Taken 01/15/23] cephalexin 500 mg capsule 500 mg PO Q6 10 days #40 caps 01/16/23 [Rx Last Taken Unknown] omeprazole magnesium 20 mg capsule,delayed release (Acid Sport Intern (omeprazole)) 20 mg PO DAILY 01/16/23 [History Last Taken 01/15/23] Allergy/AdvReac Type Severity Reaction Status Date / Time metronidazole [From Flagyl] Allergy Upset Verified 01/16/23 16:49 Stomach Phenylpiperazine AdvReac suicidal Verified 01/16/23 16:49 Antidepressant ideation Tetracyclic Antidepressants AdvReac suicidal Verified 01/16/23 16:49 ideation Tricyclic Antidepressants AdvReac suicidal Verified 01/16/23 16:49 and Tricy ideation Social History Smoking Status: Current every day smoker alcohol intake: never substance use type: does not use caffeine: Yes what type of physical activity do you participate in: none seatbelt use: always do you feel safe at home: Yes additional social history: Boyfriend- Will History 6 Elective abortions Hx Para 5 Spontaneous abortions Hx # Term Pregnancies Ectopic pregnancies Hx # Pregnancies Multiple births # of living children Past Pregnancies Del. Date Name GA/Weeks Outcome Route Bth Weight Infant Gen Labor Lgth Anesthesia Del Locatn Provider FOB 02/23/08 Radha 42 live - full term 7lbs 2oz Female 14 epidural [facility] Dr. Emilia Jung 09/07/10 Tinslejitendra 39 live - full term 7lbs 4oz Female 46 suzette rs [facility] Satya 07/12/12 Pj 38 live - full term 7lbs 6oz Male 4 hours [facility] Lilli Piña 07/15/16 Missy 37 live - full term 7lbs 8oz Male 12 hours [facility] Dr. Jurado 10/12/21 [place] 40 live - full term 8lbs 2oz Male [place] Dr. Rueda Will Delivery Date: 02/23/08 Last Updated by: Tameka Harp Cord wrapped around neck twice and around body once. Born not breathing Delivery Date: 09/07/10 Last Updated by: Tameka Harp Cord around neck x1 Delivery Date: 07/12/12 Last Updated by: Tameka Harp Blood pressure dropped, passed out during labor, was getting prepped for csection when she woke up and delivered vaginally. Delivery Date: 07/15/16 Last Updated by: Tameka Harp Anemia Delivery Date: 10/12/21 Last Updated by: Tameka Harp No issues during or delivery. Visit Details Expected Delivery Route/Plan Labor Preferences- CB/BF classes: no labor support person: Will labor intervention preferences: [] pain management options preferred: wants epidural if stable cut cord/dad catch: cord : bottle PP control planned: spouse vasectomy now complete discussed possible routes of delivery and associated risks: [] special requests: [] Plans Covid status: [] Flu vaccine: [] Tdap vaccine: declines Rhogam: [] LARC form signed: yes Problem list reviewed and updated with the most current plan of care details and appropriate orders placed. Relevant counseling for the gestational age provided. Continue routine care and follow up unless otherwise noted in visit notes/problem list details OB Flowsheet Initial Weight: Not Recorded Date -?-?-?-?-?-?-?-?-?-?-?-?- EGA Weight BP Urine Prot -?-?-?-?-?-?-?-?-?-?-?-?- Glucose FHR FuHt Pres Dilation -?-?-?-?-?-?-?-?-?-?-?-?- Effaced St Visit Note 08/17/22 -?-?-?-?-?-?-?-?-?-?-?-?- 8w 6d 164 lb 105/70 -?-?-?-?-?-?-?-?-?-?-?-?- 180 -?-?-?-?-?-?-?-?-?-?-?-?- JV- single live IUP measuring 8 weeks 4d consistent with LMP. needs 16 week CL us. desires NIPT. 09/28/22 -?-?-?-?-?-?-?-?-?-?-?-?- 14w 6d 166 lb 6 oz 104/71 Nega tive -?-?-?-?-?-?-?-?-?-?-?-?- Negative 150 -?-?-?-?-?-?-?-?-?-?-?-?- JV- pt complains of vaginal discharge and odor. on exam has yeast like dc. She is tearful stating that she is having doubts about this . She took the morning after pill and was on her menses when got . She is not feeling attached to the baby. we talked for quite a while and resources offered. continue lexapro. declines increase. 10/28/22 -?-?-?-?-?-?-?-?-?-?-?-?- 19w 1d 170 lb 2 oz 106/73 Nega tive -?-?-?-?-?-?-?-?-?-?-?-?- Negative 140 -?-?-?-?-?-?-?-?-?-?-?-?- LC- c/o headache s tylenol and magnesium not assisting. does not want additiona l medication. neurology referral made. LC- c/o consistent headaches tylenol and magnesium not assisting. does not want additional medication. neurology referral made. no vb/cramping. +FM 11/25/22 -?-?-?-?-?-?-?-?-?-?-?-?- 23w 1d 175 lb 6 oz 98/65 Nega tive -?-?-?-?-?-?-?-?-?-?-?-?- Negative 155 24 -?-?-?-?-?-?-?-?-?-?-?-?- JV- no lof, vagi nal bleeding, or cramping. still has headaches. making appt with neuro. recommend phenergan and decreasing caffeine (drinking 4 cups of coffee a day) 12/21/22 -?-?-?-?--?-?-?-?-?-?-?-?- 26w 6d 182 lb 6 oz 110/70 Nega tive -?-?-?-?-?-?-?-?-?-?-?-?- Negative 156 27 -?-?-?-?-?-?-?-?-?-?-?-?- MH-No VB, lof. G ood FM. 28 wk labs pending. Declines tdap. Larc done. Struggles w/hip pain, stopped PT due to no time with other kids. Enc chiropractor 01/16/23 -?-?-?-?-?-?-?-?-?-?-?-?- 30w 4d 190 lb 8 oz Negative -?-?-?-?-?-?-?-?-?-?-?-?- Negative 140 30 -?-?-?-?-?-?-?-?-?-?-?-?- KW-no vb/crampin yomi salazar FM. complaints of vaginal discharge x 1 week with it running down her leg-to WP for evaluation KW-no vb/cramping. good FM. complaints of vaginal discharge x 1 week with it running down her leg-to WP for evaluation-SM aware ROS Constitutional Constitutional: Reports systems reviewed and no addt'l complaints, except as documented and as per HPI ENT HEENT: Reports systems reviewed and no addt'l complaints, except as documented Cardiovascular Cardiovascular: Reports systems reviewed and no addt'l complaints, except as documented Respiratory/Chest Respiratory/Chest: Reports systems reviewed and no addt'l complaints, except as documented Gastrointestinal Gastrointestinal: Reports as per HPI Genitourinary Genitourinary: Reports as per HPI Musculoskeletal Musculoskeletal: Reports systems reviewed and no addt'l complaints, except as documented Integumentary Integumentary: Reports systems reviewed and no addt'l complaints, except as documented Neurologic Neurologic: Reports systems reviewed and no addt'l complaints, except as documented Physical Exam Const alert, oriented x3 and no apparent distress HEENT Head and Scalp: normocephalic and atraumatic Neck full ROM and no lymphadenopathy Chest inspection of chest normal Resp normal respiratory effort GI GI Narrative: gravid, abdomen nontender, AGA Manual OB Exam: dilated, effaced and station NST FHR Rate Baby A Baseline: 150 Variability:: Moderate Accelerations:: 15 x 15 Decelerations:: None NST Reactive:: Yes FHR Category:: Category I Uterine Activity:: none Assessment & Plan (1) UTI in : COMMENT: ceftriaxone in triage renal US and then home on keflex, culture sent PLAN: Plan workup and IVFs, ultrasound. dc home on keflex Charges/Coding Multi Select Codes Visit Charges Office Visit/Consults: 54215 OV L3 Est Urinary/Genital Urinary/Genital CPT Codes: 42677-85 non-stress test Interp
[2023-01-16 17:30] LABS: ROM Internal Control Test YES-OK TO RESULT pt. (Internal QC); ROM Patient Test Negative (Negative); Record Kit Lot#, ROM+ K1374
[2023-01-16] MEDS: Lactated Ringers 1,000 ML 999 ML IV (17:35)
[2023-01-16 17:59] LABS: Hematocrit 29.1 % (37-47); Hemoglobin 9.5 g/dL (12.0-15.0); Mean Corp Hgb Conc 32.6 g/dL (32-36); Mean Corpuscular Hgb 30.1 pg (27.0-32.0); Mean Corpuscular Volume 92.1 fL (81-99); Mean Platelet Vol. 9.9 fl (6.2-12.0); Platelet Count 256 K/mm3 (150-450); RBC Distribution Width CV 13.5 % (11.6-14.6); RBC Distribution Width SD 45.9 fl (35.1-43.9); Red Blood Count 3.16 M/mm3 (4.2-5.4); White Blood Count 9.8 K/mm3 (4.4-11.0)
[2023-01-16] MEDS: 0.9% Saline Lock 10 ML Syringe IV (18:36)
[2023-01-16] MEDS: Ceftriaxone 1 GM/50 ML BAG IV (18:43)
[2023-01-16 19:56] VITALS: TEMP 36.6
[2023-01-16 19:57] VITALS: BP 96/54; PULSE 90; PULSE 94; O2SAT 99
[2023-01-18 22:06] LABS: Chlamydia By Nucleic Acid AMP Positive (Negative); Gonococcus By Nucleic Acid AMP Negative (Negative)
== END 2023-01-16 20:16 | disposition home or self-care (01) ==
LOC: WPOUT 16:26 → WP 16:27
PROVIDERS: Advanced Practice Midwife; PCP Family Medicine; Referring Provider Obstetrics & Gynecology; Visit Provider Obstetrics & Gynecology
DX: O23.43 Unspecified infection of urinary tract in pregnancy, third trimester (principal); O99.891 Other specified diseases and conditions complicating pregnancy; M54.9 Dorsalgia, unspecified; F17.200 Nicotine dependence, unspecified, uncomplicated; O99.333 Smoking (tobacco) complicating pregnancy, third trimester; Z3A.30 30 weeks gestation of pregnancy
CPT/HCPCS: 96360; 36415; 59025; 59050; 84112; 85027; 87491; 87591; 99221; J7120; A4216; G0378

== ENCOUNTER 2023-01-23 19:50 | Emergency (ER) | payer MEDICAID, SELFPAY ==
[2023-01-23 19:52] VITALS: BP 109/80; PULSE 104; RESP 18; TEMP 36.2; O2SAT 99; BMI 30.2
[2023-01-23 20:17] LABS: Absolute Lymphocyte Count 2.06 X10^3/uL (0.83-4.51); Absolute Neutrophil Count 8.5 X10^3/uL (2.0-7.7); Basophil# 0.05 X10^3/uL; Basophil% 0.4 % (0-1); Eosinophils% 0.9 % (0-5); Hematocrit 33.1 % (37-47); Hemoglobin 10.9 g/dL (12.0-15.0); Lymphocyte # 2.06 X10^3/ul (0.83-4.51); Lymphocyte % 17.5 % (19-41); Mean Corp Hgb Conc 32.9 g/dL (32-36); Mean Corpuscular Hgb 29.4 pg (27.0-32.0); Mean Corpuscular Volume 89.2 fL (81-99); Mean Platelet Vol. 9.7 fl (6.2-12.0); Monocyte# 0.81 X10^3/uL; Monocyte% 6.9 % (0-10); NRBC Flagged by Analyzer 0 % (0-5); Neutrophil # 8.52 X10^3/uL (2.7-7.7); Neutrophil % 72.6 % (47-70); Platelet Count 310 K/mm3 (150-450); RBC Distribution Width CV 13.9 % (11.6-14.6); RBC Distribution Width SD 44.8 fl (35.1-43.9); Red Blood Count 3.71 M/mm3 (4.2-5.4); White Blood Count 11.7 K/mm3 (4.4-11.0)
[2023-01-23 20:40] LABS: Anion Gap 11 (5-15); BUN 7 mg/dL (7-18); BUN/Creat Ratio 14.1 RATIO (10-20); Calcium,Total 9.4 mg/dL (8.5-10.1); Chloride 105 mmol/L (98-107); EST Glomerular Filtration Rate 152 mL/min (>60); Est Glom Filt Rate - Afr Amer 184 mL/min (>60); Estimated Creatinine Clearance 151.22 ml/min; Glucose 99 mg/dL (74-106); Potassium 3.3 mmol/L (3.5-5.1); Sodium Level 134 mmol/L (136-145); Troponin-I HS (w/2H Reflex) 6 pg/mL (3.0-54.0)
[2023-01-23 21:32] VITALS: BP 114/75; PULSE 104; RESP 18; O2SAT 96; O2SAT 97
[2023-01-23 22:14] LABS: Reflex Troponin-HS? (from REC) Y
[2023-01-23 22:36] VITALS: BP 117/79; PULSE 82; RESP 18; O2SAT 100
--- NOTE | 2023-01-24 00:18 | EDS_ITS ---
HPI History of Present Illness Chief Complaint: Palpitations Narrative Narrative: 32-year-old female with chest palpitations and dyspnea. This is ongoing and intermittent. Denies chest pain. Patient currently being treated for UTI on Keflex. No fevers or chills. No nausea or vomiting. Patient states that she was checking her Apple Watch and noted her heart rate was 103 earlier. She thinks she might be dehydrated. No vaginal bleeding or loss of fluid. She had confirmed intrauterine . [facility] Medical History 24 weeks gestation of Abdominal pain affecting , antepartum Abnormality of urination Fungal toenail infection Home Medications famotidine 20 mg tablet (Pepcid) 10 mg PO BID heartburn 06/25/21 [History Last Taken 06/25/21] vit with calcium-iron fum-folic acid 60 mg iron-1 mg tablet 1 tab PO DAILY 06/25/21 [History Last Taken 01/14/23] valacyclovir 500 mg tablet (Valtrex) 500 mg PO DAILY #90 tabs 08/17/22 [Rx Last Taken Unknown] valacyclovir 500 mg tablet (Valtrex) 500 mg PO DAILY prevention 08/17/22 [History Last Taken 01/14/23] escitalopram oxalate 20 mg tablet (Lexapro) 10 mg PO DAILY depression 09/28/22 [History Last Taken 01/15/23] cephalexin 500 mg capsule 500 mg PO Q6 10 days #40 caps 01/16/23 [Rx Last Taken Unknown] omeprazole magnesium 20 mg capsule,delayed release (Acid Squirrel Worker (omeprazole)) 20 mg PO DAILY 01/16/23 [History Last Taken 01/15/23] promethazine 12.5 mg tablet 12.5 mg PO Q6H PRN nausea and vomiting #60 tabs 01/18/23 [Rx Last Taken Unknown] azithromycin 500 mg tablet 500 mg PO ONCE #2 tabs 01/19/23 [Rx Last Taken Unknown] Allergy/AdvReac Type Severity Reaction Status Date / Time metronidazole [From Flagyl] Allergy Upset Verified 01/23/23 19:52 Stomach Phenylpiperazine AdvReac suicidal Verified 01/23/23 19:52 Antidepressant ideation Tetracyclic Antidepressants AdvReac suicidal Verified 01/23/23 19:52 ideation Tricyclic Antidepressants AdvReac suicidal Verified 01/23/23 19:52 and Tricy ideation Social History Smoking Status: Former smoker alcohol intake: never substance use type: does not use caffeine: Yes what type of physical activity do you participate in: none seatbelt use: always do you feel safe at home: Yes additional social history: Boyfriend- Will ROS ROS ED Constitutional Constitutional ED: Denies chills, fever(s) or sweats Eyes Eyes: Denies blurry vision or change in vision ENT ENT ED: Denies ear pain or sore throat Cardiovascular Cardiovascular: Reports palpitations and racing heartbeat Respiratory/Chest Respiratory/Chest: Reports dyspnea; Denies cough or sputum Gastrointestinal Gastrointestinal: Denies abdominal pain, constipation, diarrhea, nausea or vomiting Genitourinary Genitourinary ED: Denies dysuria, hematuria or urinary frequency Musculoskeletal Musculoskeletal: Denies arthralgias, myalgias or neck pain Integumentary Denies abscess, Abrasions or rash Neurologic Neurologic: Denies headache(s), paresthesias or weakness Psychiatric Psychiatric: Denies anxiety, depression, suicidal ideation or suicidal thoughts Endocrine Endocrinology: Denies polydipsia or polyuria EXAM Physical Exam Const Vital Signs: 01/23/23 19:52 01/23/23 21:32 01/23/23 21:32 Temperature 97.2 F L Temperature Source Temporal Pulse Rate 104 H 104 H Respiratory Rate 18 18 Respiratory Effort Blood Pressure 109/80 114/75 Blood Pressure Mean 89 88 Pulse Ox 99 96 97 Oxygen Delivery Method Room Air Room Air Room Air 01/23/23 21:45 01/23/23 22:36 Temperature Temperature Source Pulse Rate 82 Respiratory Rate 18 Respiratory Effort Normal Non-Labored Blood Pressure 117/79 Blood Pressure Mean Pulse Ox 100 Oxygen Delivery Method Positive well nourished General Appearance ED: NAD; Negative for pallor HEENT Reports moist mucous membranes normocephalic and atraumatic Eyes PERRL Chest Wall inspection of chest normal and palpation of chest normal Resp normal respiratory effort Auscultation: Negative for rales, rhonchi or wheezes Cardio regular rate and regular rhythm GI normal to inspection, nondistended, normoactive bowel sounds Back/Spine no CVA tenderness Neuro oriented x3 and CN's II-XII intact bilaterally Motor Exam: strength 5/5 throughout Psych mental status grossly normal Skin no rashes or lesions noted General Skin Exam: Negative for jaundice or pallor MDM MDM MDM Narrative Medical decision making narrative: Patient presenting palpitations in . 31weeks Gestation with confirmed intrauterine . She is having palpitations without chest pain. Patient currently being treated for UTI on Keflex. Denies fevers or chills. Currently has no dysuria or hematuria. CBC was obtained to assess white blood cell count, hemoglobin, platelets. BMP to assess renal function electrolytes. High- sensitivity troponin to assess for ischemia. EKG was obtained which shows a sinus rhythm at 109 bpm without sign of ischemic change or ectopy. Lungs are clear to auscultation bilaterally. Since electrolytes are normal and blood work is normal I feel the patient is safe for discharge home. I do not believe she is a chest x-ray since her lungs are clear. I have low suspicion for pneumonia as she is having palpitations and not chest pain. Her oxygen is 99 to 100% on room air. Heart rate is now 82. Respiratory rate of 18. She is afebrile. 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 Impression: 1. Palpitations 2. Dyspnea 3. 31 weeks gestation Lab Data Attestation: I reviewed the patient's lab results. Labs: Laboratory Results - last 24 hr 01/23/23 20:12 WBC 11.7 H RBC 3.71 L Hgb 10.9 L Hct 33.1 L MCV 89.2 MCH 29.4 MCHC 32.9 RDW Std Deviation 44.8 H RDW Coeff of Debra 13.9 Plt Count 310 MPV 9.7 Immature Gran % (Auto) 1.700 H Neut % (Auto) 72.6 H Lymph % (Auto) 17.5 L [place] % (Auto) 6.9 Eos % (Auto) 0.9 Baso % (Auto) 0.4 Absolute Neuts (auto) 8.5 H Absolute Lymphs (auto) 2.06 Nucleated RBC % 0 Sodium 134 L Potassium 3.3 L Chloride 105 Carbon Dioxide 18.0 L Anion Gap 11 BUN 7 Creatinine 0.50 L Estim Creat Clear Calc 151.22 Est GFR (MDRD) Af Amer 184 Est GFR (MDRD) Non-Af 152 BUN/Creatinine Ratio 14.1 Glucose 99 Calcium 9.4 Troponin I High Sens 6 Discharge Plan Triage Chief Complaint: Palpitations Other Complaint: Chest Pain ED Provider: Car Gage Dx/Rx/DC Orders Instructions: ED Chest Pain, Noncardiac Prescriptions: No Action valacyclovir [Valtrex] 500 mg tablet 500 mg PO DAILY valacyclovir [Valtrex] 500 mg tablet 500 mg PO DAILY Qty: 90 4RF Hold Instructions: Duplicate Order escitalopram oxalate [Lexapro] 20 mg tablet 10 mg PO DAILY Fa 60 mg iron-1 mg Tablet 1 tab PO DAILY famotidine [Pepcid] 20 mg Tablet 10 mg PO BID Hold Instructions: Pt stated not taking omeprazole magnesium [Acid Squirrel Worker (omeprazole)] 20 mg capsule,delayed rele ase(DR/EC) 20 mg PO DAILY cephalexin [cephalexin] 500 mg capsule 500 mg PO Q6 10 Days Qty: 40 0RF promethazine 12.5 mg tablet 12.5 mg PO Q6H PRN (Reason: nausea and vomiting) Qty: 60 2RF azithromycin 500 mg tablet 500 mg PO ONCE Qty: 2 0RF Primary Care Provider: Deshaun Chao Referrals: Deshaun Chao MD [Primary Care Provider] - Disposition Disposition: Home, Self Care Discharge Date/Time: 01/23/23 22:37
== END 2023-01-23 22:37 | disposition home or self-care (01) ==
PROVIDERS: Emergency Provider Student in an Organized Health Care Education/Training Program; PCP Family Medicine; Visit Provider Student in an Organized Health Care Education/Training Program
DX: O99.891 Other specified diseases and conditions complicating pregnancy (principal); O23.43 Unspecified infection of urinary tract in pregnancy, third trimester; Z3A.31 31 weeks gestation of pregnancy; R00.2 Palpitations; R06.00 Dyspnea, unspecified; Z87.891 Personal history of nicotine dependence; R07.9 Chest pain, unspecified
CPT/HCPCS: 80048; 84484; 85025; 93005; 99283; J7030; A4216

== ENCOUNTER 2023-01-30 13:45 | Outpatient (CLI) | payer MEDICAID, SELFPAY ==
--- NOTE | 2023-01-30 12:19 | US_ITS ---
STUDY: ABDOMINAL ULTRASOUND - RIGHT UPPER QUADRANT REASON FOR VISIT: Female, 32 years old BACK PAIN . Recent kidney infection. The patient is 32 weeks . TECHNIQUE: Ultrasound evaluation of the right upper quadrant was performed with real-time and static thurman-scale imaging. TECHNICAL QUALITY: Adequate. COMPARISON: None. FINDINGS: Liver: The liver measures 17 cm. There is normal echogenicity of the liver. The bile ducts are within normal limits. There is hepatic color flow. The direction of portal flow is hepatopetal. There is no demonstrated mass lesion. Gallbladder: The patient is status post cholecystectomy. Common Bile Duct (C.B.D.): The common bile duct measures 8.1 mm. It tapers to 4.6 mm distally. Pancreas: Normal size of the head, body and tail of the pancreas. There is normal echogenicity of the pancreas. There is no demonstrated pancreatic mass or cyst. Right Kidney: Normal size of the right kidney. The right kidney measures 12.8 cm x 6 cm x 6.8 cm. Normal renal cortex. The right cortex measures 1.7 cm. There is no demonstrated renal mass or cyst. There is moderate hydronephrosis of the right kidney. There are 2 right intrarenal calculi. The larger measures 4 mm x 3 mm x 4 mm. US/Gallbladder IMPRESSION: Moderate degree of right hydronephrosis. 2. Nonobstructive right intrarenal calculi. Status post cholecystectomy. Electronically Signed: Yash Sullivan MD at 13:59 EDT ,
[2023-01-30 12:23] LABS: Absolute Lymphocyte Count 1.57 X10^3/uL (0.83-4.51); Absolute Neutrophil Count 5.8 X10^3/uL (2.0-7.7); Basophil# 0.02 X10^3/uL; Basophil% 0.2 % (0-1); Eosinophil# 0.07 X10^3/uL; Eosinophils% 0.8 % (0-5); Hematocrit 30.6 % (37-47); Hemoglobin 10.1 g/dL (12.0-15.0); Lymphocyte # 1.57 X10^3/ul (0.83-4.51); Lymphocyte % 18.8 % (19-41); Mean Corpuscular Hgb 29.8 pg (27.0-32.0); Mean Corpuscular Volume 90.3 fL (81-99); Mean Platelet Vol. 9.8 fl (6.2-12.0); Monocyte# 0.79 X10^3/uL; Monocyte% 9.4 % (0-10); NRBC Flagged by Analyzer 0 % (0-5); Neutrophil # 5.84 X10^3/uL (2.7-7.7); Neutrophil % 69.8 % (47-70); Platelet Count 271 K/mm3 (150-450); RBC Distribution Width CV 14.2 % (11.6-14.6); RBC Distribution Width SD 46.1 fl (35.1-43.9); Red Blood Count 3.39 M/mm3 (4.2-5.4); White Blood Count 8.4 K/mm3 (4.4-11.0)
[2023-01-30 13:18] LABS: ALB/GLOB Ratio 0.6 RATIO (0.9-2.4); AST(SGOT) 17 U/L (15-37); Alanine Aminotransfer ALT/SGPT 22 U/L (13-56); Albumin, Serum 2.5 g/dL (3.2-5.0); Alkaline Phosphatase 99 U/L (45-117); Anion Gap 7 (5-15); BUN 5 mg/dL (7-18); BUN/Creat Ratio 8.4 RATIO (10-20); Calcium,Total 8.6 mg/dL (8.5-10.1); Chloride 107 mmol/L (98-107); Creatinine, Serum 0.59 mg/dL (0.55-1.02); EST Glomerular Filtration Rate 124 mL/min (>60); Est Glom Filt Rate - Afr Amer 151 mL/min (>60); Globulin 3.9 g/dL (2.2-4.2); Glucose 102 mg/dL (74-106); Potassium 3.1 mmol/L (3.5-5.1); Protein, Total 6.4 g/dL (6.4-8.2); Sodium Level 138 mmol/L (136-145)
[2023-01-30 13:52] LABS: Hepatitis B Surface Antibody Non-Reactive; Hepatitis C Antibody Non-Reactive (Nonreactive)
--- NOTE | 2023-01-30 14:07 | US_ITS ---
STUDY: OBSTETRICAL ULTRASOUND - BIOPHYSICAL PROFILE REASON FOR EXAM: Female, 32 years old wellbeing LMP: June 16, 2022. PRIOR ULTRASOUND: Comparison is made with prior ultrasound examination dated November 04, 2022. TECHNIQUE: Transabdominal TECHNICAL QUALITY: Adequate. FINDINGS: There is a single intrauterine fetus. The fetus is in a cephalic presentation. There is demonstrated cardiac activity with a heart rate of 142 bpm. There is a normal amniotic fluid volume. The largest amniotic fluid pocket measures 5.6 x 2 x 4.1 cm. The amniotic fluid index (PAULO) is 12.2 cm. The placenta is anterior and right lateral in location and is not low lying. There are Grade 1 placental changes. Age by LMP: 32 weeks, 4 days. JOY by LMP: March 23, 2023. age by prior US: 32 weeks, 6 days. JOY by prior US: March 21, 2023. BIOPHYSICAL PROFILE: Breathing Movements (FBM): 2 Gross Body Movements (GBM): 2 Tone (FT): 2 Amniotic Fluid Volume (AFV): 2 TOTAL SCORE: 8 / 8 US/Biophysical Prof W/O Non Stres IMPRESSION: Normal biophysical profile of 8/8. Electronically Signed: Yash Sullivan MD at 15:02 EDT ,
[2023-01-30 14:12] VITALS: BP 119/65; PULSE 101; TEMP 36
[2023-01-30 14:15] VITALS: BMI 30.8
[2023-01-30 18:40] VITALS: BP 119/68; PULSE 76; TEMP 36.6
--- NOTE | 2023-01-30 18:47 | OB.TRI.HP_ITS ---
HPI - General HPI Narrative QUE HER, is a 32 F who presents at 32+4 with complaints of itching on hands and feet with back pain with history of recent kidney infection treated by keflex. seen in PCP office who noticed icterus. LFTs demonstrated mildly elevated bilirubin and a RUQ ultrasound was ordered by with fi ndings below. bile acids are pending. sent to for BPP and extended monitoring. STUDY: ABDOMINAL ULTRASOUND - RIGHT UPPER QUADRANT REASON FOR VISIT: Female, 32 years old BACK PAIN . Recent kidney infection. The patient is 32 weeks . TECHNIQUE: Ultrasound evaluation of the right upper quadrant was performed with real-time and static thurman-scale imaging. TECHNICAL QUALITY: Adequate. COMPARISON: None. FINDINGS: Liver: The liver measures 17 cm. There is normal echogenicity of the liver. The bile ducts are within normal limits. There is hepatic color flow. The direction of portal flow is hepatopetal. There is no demonstrated mass lesion. Gallbladder: The patient is status post cholecystectomy. Common Bile Duct (C.B.D.): The common bile duct measures 8.1 mm. It tapers to 4.6 mm distally. Pancreas: Normal size of the head, body and tail of the pancreas. There is normal echogenicity of the pancreas. There is no demonstrated pancreatic mass or cyst. Right Kidney: Normal size of the right kidney. The right kidney measures 12.8 cm x 6 cm x 6.8 cm. Normal renal cortex. The right cortex measures 1.7 cm. There is no demonstrated renal mass or cyst. There is moderate hydronephrosis of the right kidney. There are 2 right intrarenal calculi. The larger measures 4 mm x 3 mm x 4 mm. US/Gallbladder IMPRESSION: Moderate degree of right hydronephrosis. 2. Nonobstructive right intrarenal calculi. Status post cholecystectomy. Electronically Signed: Yash Sullivan MD at 13:59 EDT , Maternal Data Information JOY Calculator Estimated Delivery Date Method Current WG Current Estimate 03/23/23 LMP (Certain) 32w 4d Other Estimates 03/25/23 Ultrasound #1 32w 2d PFSH PFSH Medical History 24 weeks gestation of Abdominal pain affecting , antepartum Abnormality of urination Fungal toenail infection Home Medications famotidine 20 mg tablet (Pepcid) 10 mg PO BID heartburn 06/25/21 [History Last Taken 06/25/21] vit with calcium-iron fum-folic acid 60 mg iron-1 mg tablet 1 tab PO DAILY 06/25/21 [History Last Taken 01/14/23] valacyclovir 500 mg tablet (Valtrex) 500 mg PO DAILY #90 tabs 08/17/22 [Rx Last Taken Unknown] valacyclovir 500 mg tablet (Valtrex) 500 mg PO DAILY prevention 08/17/22 [History Last Taken 01/14/23] escitalopram oxalate 20 mg tablet (Lexapro) 10 mg PO DAILY depression 09/28/22 [History Last Taken 01/15/23] cephalexin 500 mg capsule 500 mg PO Q6 10 days #40 caps 01/16/23 [Rx Last Taken Unknown] omeprazole magnesium 20 mg capsule,delayed release (Acid Sound Tester (omeprazole)) 20 mg PO DAILY 01/16/23 [History Last Taken 01/15/23] promethazine 12.5 mg tablet 12.5 mg PO Q6H PRN nausea and vomiting #60 tabs 01/18/23 [Rx Last Taken Unknown] azithromycin 500 mg tablet 500 mg PO ONCE #2 tabs 01/19/23 [Rx Last Taken Unknown] buspirone 7.5 mg tablet 7.5 mg PO TID PRN anxiety #30 tabs 01/27/23 [Rx Last Taken Unknown] potassium chloride 20 mEq tablet,extended release(part/cryst) 20 meq PO BID #6 tabs 01/30/23 [Rx Last Taken Unknown] ursodiol 300 mg capsule 300 mg PO BID #60 caps 01/30/23 [Rx Last Taken Unknown] Allergy/AdvReac Type Severity Reaction Status Date / Time metronidazole [From Flagyl] Allergy Upset Verified 01/30/23 14:14 Stomach Phenylpiperazine AdvReac suicidal Verified 01/30/23 14:14 Antidepressant ideation Tetracyclic Antidepressants AdvReac suicidal Verified 01/30/23 14:14 ideation Tricyclic Antidepressants AdvReac suicidal Verified 01/30/23 14:14 and Tricy ideation Social History Smoking Status: Former smoker alcohol intake: never substance use type: does not use caffeine: Yes what type of physical activity do you participate in: none seatbelt use: always do you feel safe at home: Yes additional social history: Boyfriend- Will History 6 Elective abortions Hx Para 5 Spontaneous abortions Hx # Term Pregnancies Ectopic pregnancies Hx # Pregnancies Multiple births # of living children Past Pregnancies Del. Date Name GA/Weeks Outcome Route Bth Weight Infant Gen Labor Lgth Anesthesia Del Locatn Provider FOB 02/23/08 Radha 42 live - full term 7lbs 2oz Female [address] [facility] Dr. Emilia Jung 09/07/10 Kaila 39 live - full term 7lbs 4oz Female [address] [facility] Satya 07/12/12 Pj 38 live - full term 7lbs 6oz Male [address] [facility] Lilli Piña 07/15/16 Missy 37 live - full term 7lbs 8oz Male [address] [facility] Dr. Jurado 10/12/21 [place] 40 live - full term 8lbs 2oz Male [facility] Dr. Rueda Will Delivery Date: 02/23/08 Last Updated by: Tameka Harp Cord wrapped around neck twice and around body once. Born not breathing Delivery Date: 09/07/10 Last Updated by: Tameka Harp Cord around neck x1 Delivery Date: 07/12/12 Last Updated by: Tameka Harp Blood pressure dropped, passed out during labor, was getting prepped for csection when she woke up and delivered vaginally. Delivery Date: 07/15/16 Last Updated by: Tameka Harp Anemia Delivery Date: 10/12/21 Last Updated by: Tameka Harp No issues during or delivery. Visit Details Expected Delivery Route/Plan Labor Preferences- CB/BF classes: no labor support person: Will labor intervention preferences: [] pain management options preferred: wants epidural if stable cut cord/dad catch: cord : bottle PP control planned: spouse vasectomy now complete discussed possible routes of delivery and associated risks: [] special requests: [] Plans Covid status: [] Flu vaccine: [] Tdap vaccine: declines Rhogam: [] LARC form signed: yes Problem list reviewed and updated with the most current plan of care details and appropriate orders placed. Relevant counseling for the gestational age provided. Continue routine care and follow up unless otherwise noted in visit notes/problem list details OB Flowsheet Initial Weight: Not Recorded Date -?-?-?-?-?-?-?-?-?-?-?-?- EGA Weight BP Urine Prot -?-?-?-?-?-?-?-?-?-?-?-?- Glucose FHR FuHt Pres Dilation -?-?-?-?-?-?-?-?-?-?-?-?- Effaced St Visit Note 08/17/22 -?-?-?-?-?-?-?-?--?-?-?-?- 8w 6d 164 lb 105/70 -?-?-?-?-?-?-?-?-?-?-?-?- 180 -?-?-?-?-?-?-?-?-?-?-?-?- JV- single live IUP measuring 8 weeks 4d consistent with LMP. needs 16 week CL us. desires NIPT. 09/28/22 -?-?-?-?-?-?-?-?-?-?-?-?- 14w 6d 166 lb 6 oz 104/71 Nega tive -?-?-?-?-?-?-?-?-?-?-?-?- Negative 150 -?-?-?-?-?-?-?-?-?-?-?-?- JV- pt complains of vaginal discharge and odor. on exam has yeast like dc. She is tearful stating that she is having doubts about this . She took the morning after pill and was on her menses when got . She is not feeling attached to the baby. we talked for quite a while and resources offered. continue lexapro. declines increase. 10/28/22 -?-?-?-?-?-?-?-?-?-?-?-?- 19w 1d 170 lb 2 oz 106/73 Nega tive -?-?-?-?-?-?-?-?-?-?-?-?- Negative 140 -?-?-?-?-?-?-?-?-?-?-?-?- LC- c/o headache s tylenol and magnesium not assisting. does not want additional medication. neurology referral made. LC- c/o consistent headaches tylenol and magnesium not assisting. does not want additional medication. neurology referral made. no vb/cramping. +FM 11/25/22 -?-?-?-?-?-?-?-?-?-?-?-?- 23w 1d 175 lb 6 oz 98/65 Nega tive -?-?-?-?-?--?-?-?-?-?-?-?- Negative 155 24 -?-?-?-?-?-?-?-?-?-?-?-?- JV- no lof, vagi nal bleeding, or cramping. still has headaches. making appt with neuro. recommend phenergan and decreasing caffeine (drinking 4 cups of coffee a day) 12/21/22 -?-?-?-?-?-?-?-?-?-?-?-?- 26w 6d 182 lb 6 oz 110/70 Nega tive -?-?-?-?-?-?-?-?-?-?-?-?- Negative 156 27 -?-?-?-?-?-?-?-?-?-?-?-?- MH-No VB, lof. G ood FM. 28 wk labs pending. Declines tdap. Larc done. Struggles w/hip pain, stopped PT due to no time with other kids. Enc chiropractor 01/16/23 -?-?-?-?-?-?-?-?-?-?-?-?- 30w 4d 190 lb 8 oz Negative -?-?-?-?-?-?-?-?-?-?-?-?- Negative 140 30 -?-?-?-?-?-?-?-?-?-?-?-?- KW-no vb/crampin g. good FM. complaints of vaginal discharge x 1 week with it running down her leg-to WP for evaluation KW-no vb/cramping. good FM. complaints of vaginal discharge x 1 week with it running down her leg-to WP for evaluation-SM aware Physical Exam Const alert and no apparent distress Eyes Eyes Narrative: mild scleral icterus Resp normal respiratory effort, normal air movement, no retractions and no use of accessory muscles Cardio regular rate and regular rhythm GI soft to palpation and non-tender Inspection: Palpation: soft Rectal Exam: deferred no CVA tenderness and external exam normal Bimanual Exam - Vag & Uterus: uterus non-tender and other gravid uterus, normal for gestational age Manual OB Exam: estimated gestational size appropriate Amniotic Fluid: no amniotic fluid noted Extremity normal to inspection and full ROM NST FHR Rate Baby A Variability:: Moderate Accelerations:: 15 x 15 Decelerations:: None NST Reactive:: Yes FHR Category:: Category I Assessment & Plan (1) Pruritus of : COMMENT: suspected cholestasis. bile acids pending. AST/ALT normal. actigall 300mg bid bpp 2xweekly (2) Elevated bilirubin: COMMENT: surgical consult. 02/01/2023 appt 0945am. RUQ ultrasound dilated CBD. (3) Supervision of high risk , antepartum: COMMENT: JOY 03/20/23 (4) : QUALIFIERS: Weeks of gestation: 23 weeks Qualified Code(s): Z3A.23 - 23 weeks gestation of COMMENT: NIPT, anatomy nl (5) Depression affecting : (6) Hypokalemia: COMMENT: started on K-Dur 20meq BID x3 days. repeat labs in 7 days (repeat 02/06/2023) PLAN: Plan Patient presents for triage evaluation secondary to extending monitoring following suspected cholestasis of . BPP 01/10. reactive NST. surgical consultation to be obtained for elevated bilirubin and dilated common bile duct in . consult scheduled for Monday. FHT: Moderate variability reactive no decelerations category I tracing [place]: no Contractions Assessment and plan: Reactive NST, reassuring maternal and status patient discharged to home to follow-up with plan to repeat BPP on monday and to be seen in office by . See problem list details for additional plan information. Charges/Coding Visit Charges Office Visits / Consults: 83840 OV L3 Est Procedures Urinary/Genital 52xxx-59xxx: 02826-93 non-stress test Interp Multi Select Codes Urinary/Genital Urinary/Genital CPT Codes: 08391-71 non-stress test Interp
== END 2023-01-30 16:56 | disposition home or self-care (01) ==
LOC: WPOUT 13:49 → US 13:52 → WPOUT 13:53 → WP 14:03
PROVIDERS: Nurse Practitioner Women's Health; Obstetrics & Gynecology; PCP Family Medicine; Referring Provider Registered Nurse; Visit Provider Registered Nurse
DX: O99.713 Diseases of the skin and subcutaneous tissue complicating pregnancy, third trimester (principal); Z3A.32 32 weeks gestation of pregnancy; O99.891 Other specified diseases and conditions complicating pregnancy; M54.9 Dorsalgia, unspecified; N13.30 Unspecified hydronephrosis; L29.9 Pruritus, unspecified; O99.343 Other mental disorders complicating pregnancy, third trimester; F32.A Depression, unspecified; O99.283 Endocrine, nutritional and metabolic diseases complicating pregnancy, third trimester; E87.6 Hypokalemia
CPT/HCPCS: 36415; 59025; 59050; 76705; 76819; 80053; 85025; 86706; 86803

== ENCOUNTER → 2023-02-02 | Outpatient (CLI) | payer MEDICAID, SELFPAY ==
--- NOTE | 2023-02-02 15:14 | US_ITS ---
STUDY: OBSTETRICAL ULTRASOUND - BIOPHYSICAL PROFILE REASON FOR EXAM: Female, 32 years old well being LMP: Unknown. PRIOR ULTRASOUND: None. TECHNIQUE: Transabdominal TECHNICAL QUALITY: Adequate. FINDINGS: There is a single intrauterine fetus. The fetus is in a cephalic presentation. There is demonstrated cardiac activity with a heart rate of 176 bpm. There is a normal amniotic fluid volume. The largest amniotic fluid pocket measures 6.0 cm. The amniotic fluid index (PAULO) is 12.0 cm. The placenta is anterior and slightly to the right lateral side, not low lying. There are Grade 1 placental changes. Age by LMP: 30 weeks, 0 days. JOY by LMP: 03/23/2023. BIOPHYSICAL PROFILE: Breathing Movements (FBM): 2 Gross Body Movements (GBM): 2 Tone (FT): 2 Amniotic Fluid Volume (AFV): 2 TOTAL SCORE: 8 / 8 US/Biophysical Prof W/O Non Stres IMPRESSION: Normal biophysical profile of 01/10. Electronically Signed: Manda Rodriguez MD at 16:43 EDT ,
== END | disposition home or self-care (01) ==
LOC: US 15:13
PROVIDERS: PCP Family Medicine; Referring Provider Obstetrics & Gynecology; Visit Provider Obstetrics & Gynecology
DX: O99.719 Diseases of the skin and subcutaneous tissue complicating pregnancy, unspecified trimester (principal); L29.9 Pruritus, unspecified; R17 Unspecified jaundice; O26.619 Liver and biliary tract disorders in pregnancy, unspecified trimester; K83.1 Obstruction of bile duct; E87.6 Hypokalemia
CPT/HCPCS: 76819

== ENCOUNTER → 2023-02-17 | Outpatient (CLI) | payer MEDICAID, SELFPAY | END | disposition home or self-care (01) | PROVIDERS: PCP Family Medicine; Visit Provider Registered Nurse | DX: O98.819 Other maternal infectious and parasitic diseases complicating pregnancy, unspecified trimester (principal); A74.9 Chlamydial infection, unspecified; Z3A.00 Weeks of gestation of pregnancy not specified | CPT/HCPCS: 87491; 87591 ==

== ENCOUNTER 2023-02-18 07:10 | Outpatient (CLI) | payer MEDICAID, SELFPAY ==
[2023-02-18 07:23] VITALS: BP 90/52; PULSE 88
[2023-02-18 07:25] VITALS: PULSE 96; O2SAT 98
[2023-02-18 08:09] LABS: ROM Internal Control Test YES-OK TO RESULT pt. (Internal QC); ROM Patient Test Negative (Negative); Record Kit Lot#, ROM+ K1409
[2023-02-18 08:48] VITALS: BP 107/66; PULSE 80
--- NOTE | 2023-02-18 09:21 | US_ITS ---
STUDY: OBSTETRICAL ULTRASOUND - BIOPHYSICAL PROFILE REASON FOR EXAM: Female, 32 years old Fall LMP: Unknown. PRIOR ULTRASOUND: 02/02/2023 TECHNIQUE: Transabdominal TECHNICAL QUALITY: Adequate. FINDINGS: There is a single intrauterine fetus. The fetus is in a cephalic presentation. There is demonstrated cardiac activity with a heart rate of 140 bpm. There is a normal amniotic fluid volume. The largest amniotic fluid pocket measures 3.8 cm. The amniotic fluid index (PAULO) is 11.5 cm. The placenta is anterior and right lateral, not low lying There are Grade 1 placental changes. BIOPHYSICAL PROFILE: Breathing Movements (FBM): 2 Gross Body Movements (GBM): 2 Tone (FT): 2 Amniotic Fluid Volume (AFV): 2 TOTAL SCORE: US/Biophysical Prof W/O Non Stres IMPRESSION: Normal biophysical profile of 01/10. Electronically Signed: Tarun Pierce MD at 12:33 EDT ,
--- NOTE | 2023-02-18 09:49 | OB.TRI.PN ---
Progress Notes Date of Service: 02/18/23 Progress Note: Patient presents for triage evaluation secondary to fall FHT: 140 Moderate variability reactive no decelerations category I tracing [place]: no regualr Contractions Assessment and plan: post fall rhogam given labs drawn WNL reasurring tracing 01/10 bpp Reactive NST, reassuring maternal and status patient discharged to home to follow-up as scheduled. See problem list details for additional plan information. Laboratory Studies: Laboratory Tests 02/18/23 Range/Units 07:40 Vag Amniotic Fld Detect Negative (Negative) Charges/Coding Procedures Urinary/Genital 52xxx-59xxx: 90716-84 non-stress test Interp
[2023-02-18 10:52] LABS: Hematocrit 29.5 % (37-47); Hemoglobin 9.5 g/dL (12.0-15.0); Mean Corp Hgb Conc 32.2 g/dL (32-36); Mean Corpuscular Hgb 28.3 pg (27.0-32.0); Mean Corpuscular Volume 87.8 fL (81-99); Mean Platelet Vol. 10.5 fl (6.2-12.0); Platelet Count 278 K/mm3 (150-450); RBC Distribution Width CV 14.6 % (11.6-14.6); RBC Distribution Width SD 46.6 fl (35.1-43.9); Red Blood Count 3.36 M/mm3 (4.2-5.4); White Blood Count 10.9 K/mm3 (4.4-11.0)
[2023-02-18 11:00] LABS: Fibrinogen 527 mg/dl (203-444)
[2023-02-18 11:20] LABS: ALB/GLOB Ratio 0.6 RATIO (0.9-2.4); AST(SGOT) 11 U/L (15-37); Alanine Aminotransfer ALT/SGPT 11 U/L (13-56); Albumin, Serum 2.4 g/dL (3.2-5.0); Alkaline Phosphatase 144 U/L (45-117); Anion Gap 9 (5-15); BUN 5 mg/dL (7-18); BUN/Creat Ratio 9.5 RATIO (10-20); Calcium,Total 8.5 mg/dL (8.5-10.1); Chloride 108 mmol/L (98-107); Creatinine, Serum 0.53 mg/dL (0.55-1.02); EST Glomerular Filtration Rate 142 mL/min (>60); Est Glom Filt Rate - Afr Amer 172 mL/min (>60); Globulin 3.7 g/dL (2.2-4.2); Glucose 85 mg/dL (74-106); Potassium 3.7 mmol/L (3.5-5.1); Protein, Total 6.1 g/dL (6.4-8.2); Sodium Level 137 mmol/L (136-145)
== END 2023-02-18 12:39 | disposition home or self-care (01) ==
LOC: WPOUT 07:15 → WP 07:16
PROVIDERS: PCP Family Medicine; Referring Provider Obstetrics & Gynecology; Visit Provider Obstetrics & Gynecology
DX: Z04.3 Encounter for examination and observation following other accident (principal)
CPT/HCPCS: 36415; 59025; 59050; 76819; 80053; 84112; 85027; 85384; 85461; 86850; 86900; 86901; 87070; 87205; 96372; 99221; G0378; J2790

== ENCOUNTER → 2023-02-22 | Outpatient (CLI) | payer MEDICAID, SELFPAY ==
--- NOTE | 2023-02-22 16:52 | US_ITS ---
STUDY: OBSTETRICAL ULTRASOUND - BIOPHYSICAL PROFILE REASON FOR EXAM: Female, 32 years old Cholestasis/ well being LMP: Unknown. PRIOR ULTRASOUND: February 18, 2023 TECHNIQUE: Transabdominal TECHNICAL QUALITY: Adequate. FINDINGS: There is a single intrauterine fetus. The fetus is in a cephalic presentation. There is demonstrated cardiac activity with a heart rate of 160 bpm. There is a normal amniotic fluid volume. The largest amniotic fluid pocket measures 6.1 cm. The amniotic fluid index (PAULO) is 12.1 cm. The placenta is anterior and right lateral. There are Grade 1 placental changes. Age by report: 35 weeks, 6 days. JOY by report: March 23, 2023. BIOPHYSICAL PROFILE: Breathing Movements (FBM): 2 Gross Body Movements (GBM): 2 Tone (FT): 2 Amniotic Fluid Volume (AFV): 2 TOTAL SCORE: 8 / 8 US/Biophysical Prof W/O Non Stres IMPRESSION: Normal biophysical profile of 8/8. Electronically Signed: Manuel Morelos MD at 18:12 EDT ,
== END | disposition home or self-care (01) ==
LOC: OPUS 16:51
PROVIDERS: PCP Family Medicine; Referring Provider Obstetrics & Gynecology; Visit Provider Obstetrics & Gynecology
DX: O26.619 Liver and biliary tract disorders in pregnancy, unspecified trimester (principal); O99.719 Diseases of the skin and subcutaneous tissue complicating pregnancy, unspecified trimester; K83.1 Obstruction of bile duct; L29.9 Pruritus, unspecified; Z3A.00 Weeks of gestation of pregnancy not specified; O99.619 Diseases of the digestive system complicating pregnancy, unspecified trimester
CPT/HCPCS: 76819

== ENCOUNTER → 2023-02-24 | Outpatient (CLI) | payer MEDICAID, SELFPAY ==
--- NOTE | 2023-02-24 11:15 | US_ITS ---
INDICATION: Cholestasis EXAMINATION: Ultrasound US Biophysical Profile W/O Nonst TECHNIQUE: Transabdominal pelvic ultrasound was performed. COMPARISON: Prior examination of 02/22/2023. LMP: Unknown. Beta-hCG: Unknown. Provided EGA: None. FINDINGS: INTRAUTERINE GESTATION(s): Single. HEART MOTION is 150 bpm. AMNIOTIC FLUID INDEX (PAULO): 13.5 cm, MVP: 6.4 cm. BIOPHYSICAL PROFILE (BPP): 01/10 -- Breathin/2. -- Movement: 2/2. -- Tone: 2/2. --PAULO: 2/2. PRESENTATION: Cephalic PLACENTA: Anterior. There is no placenta previa or abruption. CERVIX: Not visualized. MATERNAL OVARIES: No adnexal masses. FREE FLUID: None. US/Biophysical Prof W/O Non Stres IMPRESSION: Normal biophysical profile. Electronically Signed: Manoj Lopez MD at 15:25 EDT ,
== END | disposition home or self-care (01) ==
LOC: OPUS 11:13
PROVIDERS: PCP Family Medicine; Referring Provider Obstetrics & Gynecology; Visit Provider Obstetrics & Gynecology
DX: O26.619 Liver and biliary tract disorders in pregnancy, unspecified trimester (principal); O99.719 Diseases of the skin and subcutaneous tissue complicating pregnancy, unspecified trimester; K83.1 Obstruction of bile duct; L29.9 Pruritus, unspecified; Z3A.00 Weeks of gestation of pregnancy not specified; O99.619 Diseases of the digestive system complicating pregnancy, unspecified trimester
CPT/HCPCS: 76819

== ENCOUNTER → 2023-02-28 | Outpatient (CLI) | payer MEDICAID, SELFPAY ==
--- NOTE | 2023-02-28 14:16 | US_ITS ---
STUDY: OBSTETRICAL ULTRASOUND - BIOPHYSICAL PROFILE REASON FOR EXAM: Female, 32 years old Cholestasis LMP: June 16, 2022. PRIOR ULTRASOUND: Comparison is made with prior study dated February 24, 2023. TECHNIQUE: Transabdominal TECHNICAL QUALITY: Adequate. FINDINGS: There is a single intrauterine fetus. The fetus is in a cephalic presentation. There is demonstrated cardiac activity with a heart rate of 155 bpm. There is a normal amniotic fluid volume. The largest amniotic fluid pocket measures 4.9 cm. The amniotic fluid index (PAULO) is 16 cm. The placenta is anterior and right lateral in location and is not low lying. There are Grade 1 placental changes. Age by LMP: 36 weeks, 5 days. JOY by LMP: March 23, 2023. BIOPHYSICAL PROFILE: Breathing Movements (FBM): 2 Gross Body Movements (GBM): 2 Tone (FT): 2 Amniotic Fluid Volume (AFV): 2 TOTAL SCORE: US/Biophysical Prof W/O Non Stres IMPRESSION: Normal biophysical profile of 01/10. Electronically Signed: Yash Sullivan MD at 15:37 EDT ,
--- NOTE | 2023-02-28 14:16 | US_ITS ---
STUDY: RENAL ULTRASOUND - COMPLETE REASON FOR EXAM: Female, 32 years old. Hydronephrosis TECHNIQUE: Ultrasound evaluation of the kidneys was performed with real-time and static garzon-scale imaging. COMPARISON: None. FINDINGS: RIGHT KIDNEY: Normal location of the right kidney, which is normal in size. The right kidney measures 11.4 cm x 6.7 cm x 5.5 cm. There is a normal cortex of the right kidney. The renal cortex measures 1.3 cm. There is no right renal mass or cyst. There are no right renal calculi. There is mild hydronephrosis of the right kidney. DISTAL RIGHT URETER: There is non-visualization of the distal right ureter. There is no demonstrated right ureterovesical junction calculus. There is a visualized right ureteral jet. LEFT KIDNEY: Normal location of the left kidney, which is normal in size. The left kidney measures 12.8 cm x 5.5 cm x 6 cm. There is a normal cortex of the left kidney. The renal cortex measures 1.2 cm. There is no left renal mass or cyst. There are no left renal calculi. There is no left hydronephrosis. DISTAL LEFT URETER: There is non-visualization of the distal left ureter. There is no demonstrated left ureterovesical junction calculus. There is a visualized left ureteral jet. BLADDER: The distended urinary bladder has a volume of 195 ml. There is a normal wall thickness of the distended urinary bladder. There is no demonstrated mass within the urinary bladder. There are no demonstrated bladder calculi. US/Kidney and Bladder IMPRESSION: Mild degree of right hydronephrosis. Electronically Signed: Yash Sullivan MD at 15:41 EDT ,
== END | disposition home or self-care (01) ==
PROVIDERS: PCP Family Medicine; Referring Provider Obstetrics & Gynecology; Visit Provider Obstetrics & Gynecology
DX: O09.90 Supervision of high risk pregnancy, unspecified, unspecified trimester (principal); Z3A.00 Weeks of gestation of pregnancy not specified
CPT/HCPCS: 76770; 76819; 87081

== ENCOUNTER 2023-03-01 19:45 | Outpatient (CLI) | payer MEDICAID, SELFPAY ==
[2023-03-01 20:07] VITALS: PULSE 107; O2SAT 99
[2023-03-01 20:10] VITALS: BP 103/64; PULSE 105
[2023-03-01 20:19] VITALS: BMI 30.6
[2023-03-01] MEDS: Acetaminophen 325 MG Tablet 650 MG PO (21:15)
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
== END 2023-03-01 22:28 | disposition home or self-care (01) ==
LOC: WPOUT 19:53 → WP 19:54
PROVIDERS: PCP Family Medicine; Referring Provider Obstetrics & Gynecology; Visit Provider Obstetrics & Gynecology
DX: O47.1 False labor at or after 37 completed weeks of gestation (principal); Z3A.37 37 weeks gestation of pregnancy; F17.210 Nicotine dependence, cigarettes, uncomplicated; O99.333 Smoking (tobacco) complicating pregnancy, third trimester
CPT/HCPCS: 59025; 59050; 99221; G0378

== ENCOUNTER → 2023-03-03 | Outpatient (CLI) | payer MEDICAID, SELFPAY ==
--- NOTE | 2023-03-03 16:56 | US_ITS ---
STUDY: OBSTETRICAL ULTRASOUND - BIOPHYSICAL PROFILE REASON FOR EXAM: Female, 32 years old Cholestasis LMP: PRIOR ULTRASOUND: None. TECHNIQUE: Transabdominal TECHNICAL QUALITY: Adequate. FINDINGS: There is a single intrauterine fetus. The fetus is in a cephalic presentation. There is demonstrated cardiac activity with a heart rate of 153 bpm. There is a normal amniotic fluid volume. The largest amniotic fluid pocket measures 5.4 x 7.5 cm. The amniotic fluid index (PAULO) is 15.8 cm. The placenta is right anterolateral and not low-lying There are Grade 1 placental changes. Age by LMP: 37 weeks, 1 days. JOY by LMP: March 23, 2023. BIOPHYSICAL PROFILE: Breathing Movements (FBM): 2 Gross Body Movements (GBM): 2 Tone (FT): 2 Amniotic Fluid Volume (AFV): 2 TOTAL SCORE: 8 / 8 US/Biophysical Prof W/O Non Stres IMPRESSION: Normal biophysical profile of 01/10. Electronically Signed: Rm Crum MD at 17:37 EDT ,
== END | disposition home or self-care (01) ==
LOC: OPUS 16:55
PROVIDERS: PCP Family Medicine; Referring Provider Obstetrics & Gynecology; Visit Provider Obstetrics & Gynecology
DX: O26.619 Liver and biliary tract disorders in pregnancy, unspecified trimester (principal); K83.1 Obstruction of bile duct; O99.719 Diseases of the skin and subcutaneous tissue complicating pregnancy, unspecified trimester; L29.9 Pruritus, unspecified; Z3A.00 Weeks of gestation of pregnancy not specified; O99.619 Diseases of the digestive system complicating pregnancy, unspecified trimester
CPT/HCPCS: 76819

== ENCOUNTER 2023-03-04 03:50 | Outpatient (CLI) | payer MEDICAID, SELFPAY ==
[2023-03-04 04:00] VITALS: BMI 31.1
[2023-03-04 04:08] VITALS: TEMP 36.3
[2023-03-04 04:11] VITALS: BP 122/79; PULSE 74; PULSE 84; O2SAT 99
[2023-03-04 07:46] VITALS: TEMP 36.4; O2SAT 100
[2023-03-04 07:47] VITALS: BP 122/70; PULSE 74
--- NOTE | 2023-03-12 09:59 | OB.TRI.PN_ITS ---
Progress Notes Date of Service: 03/04/23 Progress Note: Patient presents for triage evaluation secondary to contractions and labor possibly FHT: 130 moderate variability reactive no decelerations category I tracing although questionable deceleration at the beginning of the tracing, extended monitoring and BPP done and reassuring. Darling: Irregular contractions Assessment and plan: False labor no cervical change reactive NST BPP done and reassuring, extended monitoring., reassuring maternal and status patient discharged to home to follow-up as scheduled. See problem list details for additional plan information. Charges/Coding Procedures Urinary/Genital 52xxx-59xxx: 85831-88 non-stress test Interp
== END 2023-03-04 08:00 | disposition home or self-care (01) ==
LOC: WPOUT 03:59 → WP 03:59
PROVIDERS: PCP Family Medicine; Referring Provider Obstetrics & Gynecology; Visit Provider Obstetrics & Gynecology
DX: O47.9 False labor, unspecified (principal); Z3A.00 Weeks of gestation of pregnancy not specified
CPT/HCPCS: 59025; 59050 ×2

== ENCOUNTER 2023-03-04 09:20 | Outpatient (CLI) | payer MEDICAID, SELFPAY ==
[2023-03-04 09:27] VITALS: BP 106/69; PULSE 99
[2023-03-04 09:28] VITALS: TEMP 36.5
[2023-03-04 09:34] VITALS: BMI 31.4
--- NOTE | 2023-03-04 09:39 | US_ITS ---
STUDY: OBSTETRICAL ULTRASOUND - BIOPHYSICAL PROFILE REASON FOR EXAM: Female, 32 years old decelerating heart LMP: 06/16/2022 PRIOR ULTRASOUND: 03/03/2023 TECHNIQUE: Transabdominal TECHNICAL QUALITY: Adequate. FINDINGS: There is a single intrauterine fetus. The fetus is in a cephalic presentation. There is demonstrated cardiac activity with a heart rate of 143 bpm. There is a normal amniotic fluid volume. The largest amniotic fluid pocket measures 5.0 cm. The amniotic fluid index (PAULO) is 11.54 cm. The placenta is anterior and right lateral, not low-lying There are Grade 1 placental changes. BIOPHYSICAL PROFILE: Breathing Movements (FBM): 2 Gross Body Movements (GBM): 2 Tone (FT): 2 Amniotic Fluid Volume (AFV): 2 TOTAL SCORE: / US/Biophysical Prof W/O Non Stres IMPRESSION: Normal biophysical profile of 01/10. Electronically Signed: Tarun Pierce MD at 13:55 EDT ,
--- NOTE | 2023-03-04 09:50 | OB.TRI.PN_ITS ---
Progress Notes Date of Service: 03/04/23 Progress Note: Patient presents for triage evaluation secondary to labor and contractions, heart rate decel FHT: 130-150 Moderate variability reactive no decelerations category I tracing [place]: irreuglar Contractions Assessment and plan: heart rate decel, no cervical change Reactive NST bpp done reassuring maternal and status patient discharged to home to follow- up as scheduled. See problem list details for additional plan information. Charges/Coding Procedures Urinary/Genital [id number]: 68585-03 non-stress test Interp
[2023-03-04] MEDS: Acetaminophen 500 MG Tablet 1000 MG PO (10:50)
[2023-03-04] MEDS: cycloBENZAPRine HCl 10 MG Tablet PO (11:31)
[2023-03-08 04:50] VITALS: BP 107/76; PULSE 100; TEMP 36.4; O2SAT 100; O2SAT 99
== END 2023-03-04 13:28 | disposition home or self-care (01) ==
LOC: WPOUT 09:24 → WP 09:30
PROVIDERS: PCP Family Medicine; Referring Provider Obstetrics & Gynecology; Visit Provider Obstetrics & Gynecology
DX: O47.9 False labor, unspecified (principal); Z3A.00 Weeks of gestation of pregnancy not specified
CPT/HCPCS: 59025; 59050; 76819

== ENCOUNTER 2023-03-08 04:25 | Outpatient (CLI) | payer MEDICAID, SELFPAY ==
[2023-03-08 05:22] VITALS: BMI 31.4
[2023-03-08 05:47] LABS: Mucous, Urine 0 SEEN /hpf (<or=2+)
[2023-03-08 05:50] LABS: Color, Urine Yellow (Yellow); Glucose, Dipstick Normal (Normal); Ketone-Dipstick 50 mg/dl (Negative); Leukocyte Esterase-Dipstick 100 /ul (Negative); Nitrite-Dipstick Negative (Negative); Occult Blood-Urine 10 /ul (Negative); Protein-Dipstick 30 mg/dl (Negative); Specific Gravity, Urine 1.015 (1.002-1.030); Urine Bilirubin Dipstick Negative (Negative); Urine Clarity Clear (Clear); Urine Urobilinogen 4 mg/dl (Normal); Urine pH 6.5 (5.0 - 8.0)
[2023-03-08 06:02] LABS: Bacteria 2+ /hpf (None Seen); Red Blood Cells-Urine 0-5 SEEN /hpf (0-5); Squamous Epithelial Cells - UA 5-10 SEEN /hpf (5-10); White Blood Cells 5-10 SEEN /hpf (0-5)
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
== END 2023-03-08 06:55 | disposition home or self-care (01) ==
LOC: WPOUT 05:07 → WP 05:08
PROVIDERS: PCP Family Medicine; Referring Provider Advanced Practice Midwife; Visit Provider Advanced Practice Midwife
DX: O47.03 False labor before 37 completed weeks of gestation, third trimester (principal); Z3A.36 36 weeks gestation of pregnancy; O99.810 Abnormal glucose complicating pregnancy; O99.891 Other specified diseases and conditions complicating pregnancy; R51.9 Headache, unspecified; O99.343 Other mental disorders complicating pregnancy, third trimester; F32.A Depression, unspecified; O98.513 Other viral diseases complicating pregnancy, third trimester; B00.9 Herpesviral infection, unspecified
CPT/HCPCS: 59025; 59050; 81001; G0378 ×2; 99221

== ENCOUNTER 2023-03-09 17:10 | Inpatient (IN) | payer MEDICAID, SELFPAY ==
[2023-03-09] VITALS (17 sets, daily range): BP systolic 101–128; BP diastolic 50–80; PULSE 80–98; TEMP 36.5–37.3; O2SAT 98–100; BMI 31.4
[2023-03-09] MEDS: Lactated Ringers 1,000 ML 200 ML IV ×2 (18:15→23:32)
[2023-03-09 19:01] LABS: Absolute Lymphocyte Count 2.13 X10^3/uL (0.83-4.51); Absolute Neutrophil Count 10.3 X10^3/uL (2.0-7.7); Basophil# 0.04 X10^3/uL; Basophil% 0.3 % (0-1); Eosinophil# 0.28 X10^3/uL; Hemoglobin 9.4 g/dL (12.0-15.0); Lymphocyte # 2.13 X10^3/ul (0.83-4.51); Lymphocyte % 15.1 % (19-41); Mean Corp Hgb Conc 31.3 g/dL (32-36); Mean Corpuscular Hgb 26.6 pg (27.0-32.0); Mean Corpuscular Volume 84.7 fL (81-99); Mean Platelet Vol. 10.9 fl (6.2-12.0); Monocyte# 1.15 X10^3/uL; Monocyte% 8.1 % (0-10); NRBC Flagged by Analyzer 0.1 % (0-5); Neutrophil # 10.33 X10^3/uL (2.7-7.7); Neutrophil % 73.2 % (47-70); Platelet Count 281 K/mm3 (150-450); RBC Distribution Width CV 15.6 % (11.6-14.6); RBC Distribution Width SD 47.6 fl (35.1-43.9); Red Blood Count 3.54 M/mm3 (4.2-5.4); White Blood Count 14.1 K/mm3 (4.4-11.0)
[2023-03-09] MEDS: LACTATED RINGERS 500 ML 999 ML IV (19:31)
[2023-03-09 19:53] LABS: Syphilis Antibodies Non-reactive
[2023-03-09] MEDS: fentaNYL-bupivacaine (epidural) 100 ML BAG EPIDURAL (20:40)
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
[2023-03-10] VITALS (43 sets, daily range): BP systolic 101–136; BP diastolic 57–90; PULSE 61–92; RESP 16–18; TEMP 36.2–36.9; O2SAT 91–100
[2023-03-10] MEDS: LACTATED RINGERS 500 ML 999 ML IV (01:18)
[2023-03-10] MEDS: fentaNYL-bupivacaine (epidural) 100 ML BAG EPIDURAL (02:17)
[2023-03-10] MEDS: Oxytocin 15 Units/NS 250ml 15 UNITS/250 ML IV.SOLN 2 UNITS IV (03:15)
[2023-03-10] MEDS: Lactated Ringers 1,000 ML 200 ML IV (04:28)
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
--- NOTE | 2023-03-10 05:44 | DCINST_ITS ---
Discharge Instructions Diet Discharge Diet: No restrictions Activity Discharge Activity: Return to Normal Activity, May Not Drive (while taking narcotic pain medications.) and May Shower May resume sexual activity in: 4-6 weeks Dressing / Incision Call your doctor if your incision/area has: Continuous Slow Oozing, Sudden Increased Bleeding, Increased Pain/ Swelling, Increased Redness and Foul Smelling Discharge Follow Up Care Please Follow Up With: Carolina Caal MD When: Call [phone] to make an appointment with your doctor in 6 weeks. If you had elevated blood pressure or 4th degree laceration, you will need to be seen in 2 weeks. Test Results: Test results from this visit will be discussed in further detail at your follow- up appointment, if applicable. Discharge Plan Admission Admit Date/Time: 03/09/23 17:10 Attending Provider: Carolina Caal Primary Care Provider: Deshaun Chao Discharge Orders/Prescriptions Prescriptions: No Action valacyclovir [Valtrex] 500 mg tablet 500 mg PO DAILY Qty: 90 4RF Hold Instructions: Duplicate Order escitalopram oxalate [Lexapro] 20 mg tablet 10 mg PO DAILY omeprazole magnesium [Acid Offset Duplicating Machine Operator (omeprazole)] 20 mg capsule,delayed release(DR/EC) 20 mg PO DAILY Qty: 30 12RF Fa 60 mg iron-1 mg Tablet 1 tab PO DAILY buspirone 7.5 mg tablet 7.5 mg PO TID PRN (Reason: anxiety) Qty: 30 0RF Referrals / Follow Up: Deshaun Chao MD [Primary Care Provider] - Disposition Disposition (needs filled in before D/C Order can be placed): Home, Self Care
[2023-03-10] MEDS: Lactated Ringers 1,000 ML 125 ML IV ×2 (06:17→11:30)
[2023-03-10] MEDS: Oxytocin 15 Units/NS 250ml 15 UNITS/250 ML IV.SOLN 83 UNITS IV (06:34)
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
--- NOTE | 2023-03-10 16:04 | NURSING ---
1130 to OR, transported in bed by OR staff
--- NOTE | 2023-03-10 16:53 | NURSING ---
1620 returned from OR via bed
--- NOTE | 2023-03-10 16:59 | NURSING ---
epidural cath removed, tip intact, bandaid applied.
[2023-03-10] MEDS: Naproxen 500 MG Tablet PO (19:36)
[2023-03-10] MEDS: oxyCODONE 5 MG Tablet PO (21:40)
[2023-03-10] MEDS: Escitalopram Oxalate 10 MG Tablet PO (22:30)
[2023-03-11 00:35] VITALS: BP 111/66; PULSE 74; RESP 16; TEMP 36.4; O2SAT 95
[2023-03-11] MEDS: Acetaminophen 500 MG Tablet 1000 MG PO ×2 (00:55→10:00)
[2023-03-11 04:12] VITALS: BP 110/67; PULSE 67; RESP 15; TEMP 36.5; O2SAT 95
--- NOTE | 2023-03-11 06:25 | PCM.OPRPT ---
Problems Associated Problem List Diagnoses (1) Sterilization: (2) Social discord: (3) Elevated bilirubin: (4) Chlamydia infection affecting : (5) Abnormal glucose: (6) Chronic headache: (7) History of pre-eclampsia: (8) History of LEEP (loop electrosurgical excision procedure) of cervix complicating : (9) Depression affecting : (10) Supervision of high risk , antepartum: (11) Rh negative status during : (12) : (13) Herpes simplex infection during , antepartum: (14) Vaginal delivery: Report of Operation Date of Procedure: 03/10/23 Pre-Operative Diagnosis: sterilization Post-Operative Diagnosis: same Surgery/Procedure Performed:: tubal ligation filshie clips Description of Surgical Findings:: nl tubes and ovaries Surgeon: Carolina Caal rubber tire and tubes supervisor: None Type of Anesthesia: General Special Medications: none Specimen's removed: tubes Drains: none Estimated Blood Loss (mL): 50 Fluids Replaced: crystalloid Description of Procedure: Patient was taken to the operating room and epidural anesthesia was found to be adequate. Patient was placed in the dorsal supine position was prepped and draped in normal sterile fashion. Carl catheter was used to drain the bladder. Infra umbilical incision was made with a scalpel after injecting with marcaine and carried through the underlying layer of the fascia with a scalpel fascial incision was extended bilaterally with Preciado scissors and bowel packed away and the right fallopian tube identified confirmed to be fallopian tube by following it out to the fimbria and a Filshie clip was applied in the mid interstitial portion of the fallopian tube noting to completely transect the tube. This was repeated on the left side where the tube was identified and followed out to the fimbria and confirmed to be fallopian tube and then the mid interstitial portion of the tube was completely transected with the Filshie clip. Excellent hemostasis was noted. Fascia was closed with 0 Vicryl and skin closed with 3-0 Monocryl. No complications. Patient was taken recovery in stable condition. Grafts/Implants Used: none Complications none Admit VTE Documentation VTE Present on Admission: No VTE Mechan Device Prophylaxis: SCD's Multi Select Codes Urinary/Genital Urinary/Genital CPT Codes: 42344 PPTL
[2023-03-11 10:00] VITALS: BP 126/71; PULSE 70; RESP 16; TEMP 36.5; O2SAT 100
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
--- NOTE | 2023-03-11 10:01 | PCM.PN.OB ---
Subjective Subjective Patient doing well, bonding with son. is having some shoulder pain following tubal ligation yesterday. improved after passing gas. Tolerating PO. Ambulating and voiding without difficulty. Feeding well, bottle feeding only. Denies chest pain, shortness of breath, calf pain/swelling, fevers, chills, lightheadedness. Objective Data Objective Data Vital Signs: Vital Signs Temp Pulse Resp BP Pulse Ox O2 Del Method 97.7 F L 67 15 110/67 95 Room Air 03/11/23 04:12 03/11/23 04:12 03/11/23 04:12 03/11/23 04:12 03/11/23 04:12 03/11/23 04:12 Oxygen Delivery Method Room Air Weight: 194 lb 7.163 oz Body Mass Index (BMI) 31.4 Intake & Output: Intake and Output for Last 24 Hours 03/09/23 03/10/23 03/11/23 23:59 23:59 23:59 Intake Total 1434.16 / 1434.16 3533.05 / 3533.05 Output Total 1530 / 1530 Balance 1434.16 / 1434.16 Lab / Micro Data 03/09/23 18:15 Labs: Laboratory Results - last 24 hr 03/10/23 21:45: Screen NEGATIVE, Baby's Blood Type A POSITIVE, Baby's MEJIA NEGATIVE Physical Exam Const alert and no apparent distress Neck General: normal visual inspection Lymph Lymphatic: no lymphadenopathy noted Chest inspection of chest normal Resp normal respiratory effort and normal air movement Cardio regular rate and regular rhythm GI normal to inspection, nondistended, normoactive bowel sounds and soft to palpation Assessment & Plan (1) Vaginal delivery: COMMENT: TESS [place] PLAN: s/p PPD # 1 1. routine post delivery care 2. formula feeding only. breast support provided. 3. rh positive 4. rubella immune 5 d/c home today (2) Status post tubal ligation: COMMENT: 03/10/2023 PLAN: d/c home with oral pain management.
[2023-03-11 12:00] VITALS: BP 117/74; PULSE 67; RESP 16; TEMP 36.7; O2SAT 99
[2023-03-11] MEDS: Naproxen 500 MG Tablet PO (13:18)
== END 2023-03-11 17:54 | disposition home or self-care (01) | DRG 541 ==
LOC: WPOUT 17:14 → WP 03-10 05:45
PROVIDERS: Admitting Provider Obstetrics & Gynecology; PCP Family Medicine; Referring Provider Obstetrics & Gynecology; Visit Provider Obstetrics & Gynecology
PROC: 0UL70ZZ Occlusion of Bilateral Fallopian Tubes, Open Approach (ICD-10-PCS; principal; 2023-03-10 12:30)
DX: O98.52 Other viral diseases complicating childbirth (principal); Z37.0 Single live birth; K83.8 Other specified diseases of biliary tract; F17.210 Nicotine dependence, cigarettes, uncomplicated; O99.334 Smoking (tobacco) complicating childbirth; O26.62 Liver and biliary tract disorders in childbirth; O34.43 Maternal care for other abnormalities of cervix, third trimester; Z30.2 Encounter for sterilization; R51.9 Headache, unspecified; B00.9 Herpesviral infection, unspecified; Z3A.38 38 weeks gestation of pregnancy
CPT/HCPCS: 59025; 59050; 81001; 85025; 85461; 86780; 86850; 86870; 86900; 86901; 99221; J7120; G0378; J2405; J2790

== ENCOUNTER 2023-03-18 01:17 | Outpatient (CLI) | payer MEDICAID, SELFPAY ==
[2023-03-18] VITALS (9 sets, daily range): BP systolic 109–139; BP diastolic 57–95; PULSE 56–72; O2SAT 98; BMI 28.2
--- NOTE | 2023-03-18 01:57 | EKG12_ITS ---
Test Reason : CP Blood Pressure : / mmHG Vent. Rate : 062 BPM Atrial Rate : 062 BPM P-R Int : 128 ms QRS Dur : 072 ms QT Int : 412 ms P-R-T Axes : 037 034 042 degrees QTc Int : 418 ms Normal sinus rhythm Normal ECG When compared with ECG of 23-JAN-2023 20:04, Vent. rate has decreased BY 47 BPM Nonspecific T wave abnormality has replaced inverted T waves in Inferior leads Nonspecific T wave abnormality no longer evident in Anterolateral leads Confirmed by ART LIMON, ANGELICA ([id number]), editor at large SAAD COELHO ([id number]) on 03/23/2023 1:44:45 PM Referred By: Confirmed By:ANGELICA CORDOVA MD
[2023-03-18 02:34] LABS: Hematocrit 34.9 % (37-47); Hemoglobin 10.4 g/dL (12.0-15.0); Mean Corp Hgb Conc 29.8 g/dL (32-36); Mean Corpuscular Hgb 26.1 pg (27.0-32.0); Mean Corpuscular Volume 87.7 fL (81-99); Mean Platelet Vol. 9.1 fl (6.2-12.0); Platelet Count 400 K/mm3 (150-450); RBC Distribution Width CV 15.8 % (11.6-14.6); RBC Distribution Width SD 49.8 fl (35.1-43.9); Red Blood Count 3.98 M/mm3 (4.2-5.4); White Blood Count 9.4 K/mm3 (4.4-11.0)
[2023-03-18] MEDS: Mag Hydrox/Al Hydrox/Simeth 30 ML UDC PO (02:50)
[2023-03-18 02:52] LABS: AST(SGOT) 12 U/L (15-37); Alanine Aminotransfer ALT/SGPT 17 U/L (13-56); Creatinine, Serum 0.65 mg/dL (0.55-1.02); EST Glomerular Filtration Rate 112 mL/min (>60); Est Glom Filt Rate - Afr Amer 136 mL/min (>60); Estimated Creatinine Clearance 116.32 ml/min; Uric Acid 5.1 mg/dL (2.6-6.0)
--- NOTE | 2023-03-18 03:40 | NURSING ---
Discussed with Dung Roach patient assessment, bp, and lab results. Medical screening exam indicates she needs evaluated by the doctor before discharge. Jeanette to be in to see patient.
--- NOTE | 2023-03-18 04:03 | PCM.PN.BLA ---
Progress Note hussein Escobar 32yr old female presents to for elevated BPs at home. Reports BPs in the 150/100s this evening accompanied by headache. She is one week . Denies dizziness, blurred vision and RUQ pain. Physical Exam Const alert, oriented x3 and no apparent distress Eyes no papilledema General Eye: normal appearance of both eyes Periorbital: periorbital findings normal Resp normal respiratory effort, normal air movement, no retractions and no use of accessory muscles GI soft to palpation Palpation: soft Uterus Palpation: Negative for uterus tender Extremity normal to inspection, full ROM, no calf tenderness and no pedal edema Peripheral Pulses: Yes pulses 2+ throughout Skin no rashes or lesions noted Neuro moves all extremities and deep tendon reflexes 2+ bilaterally Motor Exam: clonus present 1+ bilateral Psych mental status grossly normal, thought process normal and cooperative Appearance: grossly normal Assessment & Plan Assessment/Plan (1) Anxiety: PLAN: Restart home medication of ativan PRN buspirone (2) Depression: PLAN: has counselor and using SSRI (3) Status post tubal ligation: (4) Headache: PLAN: pre e labs normal bps normal follow up in office beginning of week for Bp check Visit Charges Office Visits / Consults: [id number] OV L3 Est
--- NOTE | 2023-03-18 04:06 | NURSING ---
Dung Roach in assessing patient and talking about discharge instructions with her.
== END 2023-03-18 04:10 | disposition home or self-care (01) ==
LOC: WPOUT 01:22 → WP 01:23
PROVIDERS: PCP Family Medicine; Visit Provider Advanced Practice Midwife
DX: O99.893 Other specified diseases and conditions complicating puerperium (principal); R51.9 Headache, unspecified; O99.345 Other mental disorders complicating the puerperium; F41.9 Anxiety disorder, unspecified; F32.A Depression, unspecified
CPT/HCPCS: 36415; 82565; 84450; 84460; 84550; 85027; 93005

== ENCOUNTER → 2023-06-28 | Outpatient (CLI) | payer MEDICAID, SELFPAY ==
[2023-06-28 14:18] LABS: Absolute Lymphocyte Count 1.74 X10^3/uL (0.83-4.51); Absolute Neutrophil Count 3.5 X10^3/uL (2.0-7.7); Basophil# 0.05 X10^3/uL; Basophil% 0.8 % (0-1); Eosinophil# 0.34 X10^3/uL; Eosinophils% 5.7 % (0-5); Hematocrit 37.6 % (37-47); Hemoglobin 11.9 g/dL (12.0-15.0); Lymphocyte # 1.74 X10^3/ul (0.83-4.51); Mean Corp Hgb Conc 31.6 g/dL (32-36); Mean Corpuscular Hgb 28.1 pg (27.0-32.0); Mean Corpuscular Volume 88.7 fL (81-99); Mean Platelet Vol. 9.7 fl (6.2-12.0); Monocyte% 6.7 % (0-10); NRBC Flagged by Analyzer 0 % (0-5); Neutrophil # 3.46 X10^3/uL (2.7-7.7); Neutrophil % 57.5 % (47-70); Platelet Count 388 K/mm3 (150-450); RBC Distribution Width CV 13.7 % (11.6-14.6); RBC Distribution Width SD 44.3 fl (35.1-43.9); Red Blood Count 4.24 M/mm3 (4.2-5.4)
[2023-06-28 15:24] LABS: Thyroid Stim Hormone (TSH) 1.21 uIU/mL (0.358-3.74)
== END | disposition home or self-care (01) ==
LOC: LAB 13:06
PROVIDERS: PCP Family Medicine; Referring Provider Obstetrics & Gynecology; Visit Provider Obstetrics & Gynecology
DX: N93.9 Abnormal uterine and vaginal bleeding, unspecified (principal)
CPT/HCPCS: 36415; 84443; 85025

== ENCOUNTER → 2023-06-28 | Outpatient (CLI) | payer MEDICAID, SELFPAY ==
[2023-07-01 06:10] LABS: Chlamydia By Nucleic Acid AMP Negative (Negative); Gonococcus By Nucleic Acid AMP Negative (Negative)
== END | disposition home or self-care (01) ==
LOC: LABSPEC 14:58
PROVIDERS: PCP Family Medicine; Referring Provider Nurse Practitioner Women's Health; Visit Provider Nurse Practitioner Women's Health
DX: N93.9 Abnormal uterine and vaginal bleeding, unspecified (principal)
CPT/HCPCS: 36415; 84443; 85025; 87070; 87205; 87491; 87591

== ENCOUNTER → 2023-07-13 | Outpatient (CLI) | payer MEDICAID, SELFPAY ==
--- NOTE | 2023-07-13 15:57 | US_ITS ---
STUDY: ULTRASOUND OF THE FEMALE PELVIS - COMPLETE REASON FOR EXAM: Female, 33 years old. Irregular bleeding LMP: June 02, 2023 TECHNIQUE: Transabdominal and Transvaginal TECHNICAL QUALITY: Adequate. Examination limited by bowel gas. COMPARISON: None. FINDINGS: The uterus is anteverted and is in a midline position. The uterus measures 8.7 x 5.9 x 4.3 cm. Normal uterine cervix. The endometrium measures 6 mm in thickness, and is hyperechoic. There is 0.3 cm cyst of the endometrium. There is no demonstrated myometrial mass. I.U.D. - The patient does not have an I.U.D. The right ovary is visualized. The right ovary measures 2.3 x 1.7 x 1.7 cm. There is no right ovarian cyst or ovarian mass. There is no visualized right adnexal mass or complex lesion. There is normal arterial and normal venous vascularity. The left ovary is visualized. The left ovary measures 2.4 x 2.0 x 1.1 cm. There is no left ovarian cyst or ovarian mass. There is no visualized left adnexal mass or complex lesion. There is normal arterial and normal venous vascularity. There is no fluid in the cul-de-sac. The pre void volume of the bladder was 46 ml. US/Pelvic w/ Transvaginal IMPRESSION: Small cystic focus of the endometrium. Electronically Signed: Manuel Morelos MD at 9:22 EST ,
[2023-07-13 18:09] LABS: hCG Titer Quant., Serum < 1 mIU/mL (1-3)
== END | disposition home or self-care (01) ==
LOC: US 15:54
PROVIDERS: PCP Family Medicine; Referring Provider Nurse Practitioner Women's Health; Visit Provider Nurse Practitioner Women's Health
DX: N92.1 Excessive and frequent menstruation with irregular cycle (principal)
CPT/HCPCS: 36415; 76830; 76856; 84702

== ENCOUNTER 2023-10-03 05:44 | Day surgery (SDC) | payer MEDICAID, SELFPAY ==
[2023-10-03] VITALS (7 sets, daily range): BP systolic 87–97; BP diastolic 61–70; PULSE 67–83; RESP 16; TEMP 35.9–36.5; O2SAT 92–100; BMI 28.0
[2023-10-03] MEDS: Lactated Ringers 1,000 ML 15 ML IV (06:28)
[2023-10-03 06:29] LABS: Hematocrit 36.6 % (37-47); Hemoglobin 11.9 g/dL (12.0-15.0); Mean Corp Hgb Conc 32.5 g/dL (32-36); Mean Corpuscular Hgb 27.8 pg (27.0-32.0); Mean Corpuscular Volume 85.5 fL (81-99); Mean Platelet Vol. 9.9 fl (6.2-12.0); Platelet Count 282 K/mm3 (150-450); RBC Distribution Width CV 14.6 % (11.6-14.6); RBC Distribution Width SD 45.8 fl (35.1-43.9); Red Blood Count 4.28 M/mm3 (4.2-5.4); White Blood Count 5.7 K/mm3 (4.4-11.0)
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
--- NOTE | 2023-10-03 07:26 | DCINST_ITS ---
Discharge Instructions Diet Discharge Diet: No restrictions Activity Discharge Activity: Return to Normal Activity, May Shower and May Take a Tub Bath (after 1 week) May resume sexual activity in: 1-2 weeks Weight Bearing Status: Weight bearing as tolerated Lifting Restrictions: none Dressing / Incision Call your doctor if you observe: Fever of 101 or Higher, Using more than 1 pad per hour, Shortness of breath and Uncontrolled pain Follow Up Care Please Follow Up With: Melissa Brasher DO When: Call [phone] to schedule appointment. Test Results: Test results from this visit will be discussed in further detail at your follow- up appointment, if applicable. Discharge Plan Admission Primary Reason for Your Visit: hysteroscopy dilation and curettage Attending Provider: Melissa Brasher Primary Care Provider: Deshaun Chao Discharge Orders/Prescriptions Prescriptions: New naproxen 500 mg tablet 500 mg PO BID PRN (Reason: pain) Qty: 20 0RF Continued escitalopram oxalate [Lexapro] 20 mg tablet 20 mg PO DAILY metoprolol tartrate 25 mg tablet 25 mg PO DAILY lorazepam [Ativan] 1 mg tablet 1 mg PO BID PRN (Reason: anxiety) valacyclovir [Valtrex] 500 mg tablet 500 mg PO DAILY Probiotic 10 billion cell capsule 100 mmu cells PO DAILY gabapentin 300 mg capsule 300 mg PO TID phenazopyridine 95 mg tablet 190 mg PO DAILY Referrals / Follow Up: Deshaun Chao MD [Primary Care Provider] - Disposition Disposition (needs filled in before D/C Order can be placed): Home, Self Care
--- NOTE | 2023-10-03 07:30 | EMB_PTH ---
PATIENT: QUE SANCHEZ [place] [facility] [place][id number] AGE/SX: 33/F ROOM: RE10/03/[address]: Dr. Melissa Brasher DO : 1990 BED: DIS: 10/03/2023 SPEC #: [id number] RECD: 10/03/23 10:26 STATUS: LEXI STEVEN #: [id number] LINDA: 10/03/23 07:[address]: Melissa Brasher DEPT: SURGICAL PATHOLOGY RECD BY: Chayo Segura ENTERED: 10/03/23 10:59 SP TYPE: ENDOM BX/C ROSSANA DR: Dr. Deshaun Chao MD Tissues: Endometrium, NOS Procedures: Surgery Specimen Level IV HEADER OPERATION: D&C, Hysteroscopy with Symphion PRE-OP DIAGNOSIS: Menorrhagia TISSUE SUBMITTED: Endometrial Curettings MICROSCOPIC DIAGNOSIS Endometrium, Curetitngs: Transitional endometrium with glandular and stromal breakdown. Fragments of benign superficial endocervix. Rare fragments of benign myometrium with changes suggested of adenomyosis. / 10/04/2023 MICROSCOPIC DESCRIPTION Slides are reviewed. GROSS DESCRIPTION Received in fixative is one container labeled with the patient's name and designated Endometrial curettings. The specimen consists of multiple irregular fragments of red - lala soft tissue that in aggregate measure 5.0 x 3.0 x 0.2 cm. The specimen is totally submitted in two cassettes. AM/mr 10/03/2023 TC:5 CPT:94792
[2023-10-03] MEDS: Lidocaine 1% (20 ml mdv) 20 ML Vial (07:42)
--- NOTE | 2023-10-03 08:15 | OP.PCM_ITS ---
Problems Associated Problem List Diagnoses (1) Menorrhagia with irregular cycle: Report of Operation Date of Procedure: 10/03/23 Pre-Operative Diagnosis: menorrhagia, finding of endometrial cyst on ultrasound Post-Operative Diagnosis: menorrhagia, finding of endometrial cyst on ultrasound Surgery/Procedure Performed:: hysteroscopy dilation and curettage Description of Surgical Findings:: thick endometrium with polyp or cystic like structures present Surgeon: Melissa Brasher warehouse incentive selector: None Type of Anesthesia: MAC and Topical Anesth Specimen's removed: endometrial curetting's Estimated Blood Loss (mL): 10cc Description of Procedure: Patient was prepped and draped in a normal sterile fashion under MAC anesthesia. A weighted speculum was placed in the vagina and the anterior lip of the cervix was grasped with a single-tooth tenaculum. A paracervical block was placed with 1% lidocaine. Cervix was progressively dilated to allow passage of a 5 mm hysteroscope. The lining was fully visualized and noted to have areas of increased vasculature and polyp like structures . The uterus sounded to 8 cm. Curettage was performed with the symphion device and cautery was used on the areas of increased vasculature for excellent hemostasis. The specimen was sent to pathology. All instruments were removed from the vagina and excellent hemostasis was noted. Patient was awoken and taken to recovery in stable condition. Complications none Admit VTE Documentation VTE Present on Admission: No VTE Mechan Device Prophylaxis: SCD's VTE Pharm Prophylaxis ordered?: No Multi Select Codes Urinary/Genital Urinary/Genital CPT Codes: 63497 Hysteroscopy,EMC, Polypectomy
[2023-10-03] MEDS: Acetaminophen 500 MG Tablet 1000 MG PO (09:05)
== END 2023-10-03 09:21 | disposition home or self-care (01) ==
LOC: SDC 05:45 → AC 05:47
PROVIDERS: PCP Family Medicine; Referring Provider Obstetrics & Gynecology; Visit Provider Obstetrics & Gynecology
PROC: (CPT 58120; principal; 2023-10-03 07:15)
DX: N92.5 Other specified irregular menstruation (principal); N93.9 Abnormal uterine and vaginal bleeding, unspecified; F17.200 Nicotine dependence, unspecified, uncomplicated; F41.9 Anxiety disorder, unspecified; Z79.899 Other long term (current) drug therapy
CPT/HCPCS: 58558; 00952; 85027; 86850; 86900; 86901; 88305; J7120; J2405

== ENCOUNTER → 2024-04-19 | Outpatient (CLI) | payer MEDICAID, SELFPAY ==
[2024-04-19 15:45] LABS: hCG Titer Quant., Serum < 1 mIU/mL (1-3)
[2024-04-19 15:52] LABS: Free T3 2.9 pg/mL (2.18-3.98); T4 Free Direct 1.08 ng/dL (0.76-1.46)
[2024-04-22 21:07] LABS: Chlamydia By Nucleic Acid AMP Negative (Negative); Gonococcus By Nucleic Acid AMP Negative (Negative)
== END | disposition home or self-care (01) ==
LOC: BWCLAB 14:20
PROVIDERS: PCP Family Medicine; Referring Provider Registered Nurse; Visit Provider Registered Nurse
DX: N89.8 Other specified noninflammatory disorders of vagina (principal); Z11.3 Encounter for screening for infections with a predominantly sexual mode of transmission; N91.2 Amenorrhea, unspecified
CPT/HCPCS: 36415; 84439; 84443; 84481; 84702; 87070; 87205; 87491; 87591

== ENCOUNTER → 2024-06-10 | Outpatient (CLI) | payer MEDICAID, SELFPAY | END | disposition home or self-care (01) | LOC: LABSPEC 15:02 | PROVIDERS: PCP Family Medicine; Referring Provider Nurse Practitioner Women's Health; Visit Provider Nurse Practitioner Women's Health | DX: N89.8 Other specified noninflammatory disorders of vagina (principal) | CPT/HCPCS: 87070; 87205 ==

== ENCOUNTER → 2024-07-24 | Outpatient (CLI) | payer MEDICAID, SELFPAY ==
[2024-07-24 16:09] LABS: Free T3 2.9 pg/mL (2.18-3.98); T4 Free Direct 1.06 ng/dL (0.76-1.46)
[2024-07-29 01:06] LABS: Anti-Mullerian Hormone,Serum 2.36 ng/mL (.)
== END | disposition home or self-care (01) ==
LOC: BWCLAB 14:21
PROVIDERS: PCP Family Medicine; Referring Provider Registered Nurse; Visit Provider Registered Nurse
DX: N91.2 Amenorrhea, unspecified (principal); N97.9 Female infertility, unspecified
CPT/HCPCS: 36415; 83516; 84439; 84443; 84481

== ENCOUNTER → 2024-08-19 | Outpatient (CLI) | payer MEDICAID, SELFPAY ==
[2024-08-21 21:07] LABS: Chlamydia By Nucleic Acid AMP Negative (Negative); Gonococcus By Nucleic Acid AMP Negative (Negative)
[2024-08-22 14:09] LABS: HPV APTIMA, High Risk Negative (Negative)
== END | disposition home or self-care (01) ==
LOC: LABSPEC 16:30
PROVIDERS: PCP Family Medicine; Referring Provider Obstetrics & Gynecology; Visit Provider Obstetrics & Gynecology
DX: N93.0 Postcoital and contact bleeding (principal); Z12.4 Encounter for screening for malignant neoplasm of cervix
CPT/HCPCS: 87070; 87205; 87491; 87591; 87624; 88175; G0145

== ENCOUNTER → 2024-08-21 | Outpatient (CLI) | payer MEDICAID, SELFPAY ==
--- NOTE | 2024-08-21 12:35 | US_ITS ---
EXAM: US Pelvis Transabdominal and Transvaginal, Complete CLINICAL INDICATION: POSTCOITAL BLEEDING TECHNIQUE: Real-time complete transabdominal and transvaginal pelvic ultrasound with image documentation. Transvaginal imaging was used for better evaluation of the endometrium and adnexa. COMPARISON: No relevant prior studies available. FINDINGS: UTERUS/CERVIX: Multiple uterine fibroids, largest measuring up to 1.8 cm. Apparent anechoic lesion within the endometrium, measuring up to 0.5 cm likely cyst. Fluid within the endometrial canal. The uterus measures 9.1 x 5.6 x 3.8 cm. The endometrial stripe measures 0.8 cm in thickness. RIGHT OVARY: Unremarkable. Normal blood flow. The right ovary measures 4.4 x 4.4 x 1.6 cm. LEFT OVARY: Apparent septated cystic structure shown in the left ovary measuring up to 1.9 cm, likely complex ovarian cysts. Normal blood flow. The left ovary measures 2.4 x 1.8 x 1.7 cm. FREE FLUID: No free fluid. BLADDER: Unremarkable as visualized. Wall is normal thickness for degree of distention. US/Pelvic w/ Transvaginal IMPRESSION: 1. Multiple uterine fibroids, largest measuring up to 1.8 cm. 2. Apparent anechoic lesion within the endometrium, measuring up to 0.5 cm lik yinka cyst. 3. If symptoms persist, further evaluation with MRI is recommended. Reading Location: [facility]
== END | disposition home or self-care (01) ==
PROVIDERS: PCP Family Medicine; Referring Provider Obstetrics & Gynecology; Visit Provider Obstetrics & Gynecology
DX: N93.0 Postcoital and contact bleeding (principal)
CPT/HCPCS: 76830; 76856

== ENCOUNTER → 2024-10-26 | Outpatient (CLI) | payer MEDICAID, SELFPAY ==
[2024-10-26 10:22] LABS: hCG Titer Quant., Serum < 1 mIU/mL (<9 non-preg)
== END | disposition home or self-care (01) ==
LOC: LAB 09:32
PROVIDERS: PCP Family Medicine; Referring Provider Obstetrics & Gynecology; Visit Provider Obstetrics & Gynecology
DX: N91.2 Amenorrhea, unspecified (principal)
CPT/HCPCS: 36415; 84702

== ENCOUNTER → 2024-11-11 | Outpatient (CLI) | payer MEDICAID, SELFPAY ==
[2024-11-13 08:08] LABS: PROGESTERONE 9.5 ng/mL (.)
== END | disposition home or self-care (01) ==
LOC: LAB 16:54
PROVIDERS: PCP Family Medicine; Referring Provider Obstetrics & Gynecology; Visit Provider Obstetrics & Gynecology
DX: N92.1 Excessive and frequent menstruation with irregular cycle (principal); N97.9 Female infertility, unspecified
CPT/HCPCS: 36415; 84144

== ENCOUNTER → 2024-11-15 | Outpatient (CLI) | payer MEDICAID, SELFPAY ==
[2024-11-15 18:06] LABS: hCG Titer Quant., Serum < 1 mIU/mL (<9 non-preg)
== END | disposition home or self-care (01) ==
PROVIDERS: Obstetrics & Gynecology; PCP Family Medicine; Referring Provider Advanced Practice Midwife; Visit Provider Advanced Practice Midwife
DX: N91.2 Amenorrhea, unspecified (principal)
CPT/HCPCS: 36415; 84702

== ENCOUNTER 2024-11-23 20:21 | Emergency (ER) | payer MEDICAID, SELFPAY ==
[2024-11-23 20:23] VITALS: BP 107/71; PULSE 78; RESP 18; TEMP 37.1; O2SAT 100; BMI 28.3
--- NOTE | 2024-11-23 21:28 | EKG12_ITS ---
Test Reason : CP Blood Pressure : */* mmHG Vent. Rate : 76 BPM Atrial Rate : 76 BPM P-R Int : 126 ms QRS Dur : 72 ms QT Int : 370 ms P-R-T Axes : 57 63 73 degrees QTcB Int : 416 ms Normal sinus rhythm Normal ECG Confirmed by Louis Rodriguez [id number]), publishing editor NATALIE OAKLEY ([id number]) on 11/26/2024 11:50:27 AM Referred By: Confirmed By: Louis Rodriguez
--- NOTE | 2024-11-23 21:28 | ED.VIS.CHEST ---
HPI History of Present Illness Chief Complaint: Chest Pain Informant: patient Narrative Narrative: Brought in for chest pain 7 PM sharp in nature reported nausea. She feels palpitations. History of A-fib with ablation in 2014 down in [place] at [place]. Currently does not follow with cardiology. Drinks 1 cup of coffee a day. Tobacco history. Denies control. Denies recent travel or surgeries. No history of mobilizations. No history of PE or DVT. Denies hypertension, diabetes, hyperlipidemia. No family history of MIs at young age. Denies any sudden heart . Reported was told EMS told her they auscultated an irregular rhythm however when EKG was done it was normal. Palpitations have resolved. Prior Similar Symptoms: Yes CVD Risk Factors: Positive for Smoking; Negative for Hypertension, Diabetes, Hypercholesterolemia or Family History 1' </=55 PFSH PFSH Medical History Multiple personality disorder History of Clostridium difficile infection Alcohol use Arthritis Injury of back Injury of head and neck Seizures TIA (transient ischemic attack) Eosinophilic esophagitis Difficulty swallowing History of ulceration History of IBS Electronic cigarette use History of echocardiogram History of stress test Tilt table evaluation Cardiology follow-up encounter Chest pain History of irregular heartbeat History of atrial fibrillation Tachycardia Abnormality of urination Abdominal pain affecting , antepartum 24 weeks gestation of Fungal toenail infection Home Medications ?Medication ?Instructions ?Recorded ?Last Taken ?Type NK 11/23/24 Unknown History Allergy/AdvReac Type Severity Reaction Status Date / Time metronidazole (From Flagyl) Allergy Upset Verified 11/23/24 20:22 Stomach Phenylpiperazine AdvReac suicidal Verified 11/23/24 20:22 Antidepressant ideation Tetracyclic Antidepressants AdvReac suicidal Verified 11/23/24 20:22 ideation Tricyclic Antidepressants AdvReac suicidal Verified 11/23/24 20:22 and Tricy ideation Surgical History S/P dilation and curettage (~10/03/23) Status post hysteroscopy History of cardiac radiofrequency ablation History of esophagogastroduodenoscopy (EGD) History of colonoscopy History of loop electrical excision procedure (LEEP) Status post tubal ligation History of surgery Sterilization Hx of cholecystectomy Social History household members: children Smoking Status: Current every day smoker tobacco type: e-cigarettes alcohol intake: never substance use type: does not use caffeine: Yes what type of physical activity do you participate in: none seatbelt use: always do you feel safe at home: Yes ROS ROS ED Constitutional Constitutional ED: Denies chills, fever(s) or sweats ENT ENT ED: Denies sore throat Cardiovascular Cardiovascular: Reports chest pain and palpitations; Denies leg edema or racing heartbeat Respiratory/Chest Respiratory/Chest: Denies cough, dyspnea or dyspnea on exertion Gastrointestinal Gastrointestinal: Reports nausea; Denies abdominal pain, diarrhea or vomiting Genitourinary Genitourinary ED: Denies dysuria, hematuria or urinary frequency Musculoskeletal Musculoskeletal: Denies back pain, extremity pain or neck pain Integumentary Denies rash or wounds Neurologic Neurologic: Denies headache(s), paresthesias or weakness EXAM Physical Exam Const Vital Signs: 11/23/24 20:23 11/23/24 20:25 11/23/24 22:10 Temperature 98.7 F Temperature Source Oral Pulse Rate 78 74 Respiratory Rate 18 22 H Respiratory Effort Normal Non-Labored Blood Pressure 107/71 97/72 Blood Pressure Mean 83 80 Pulse Ox 100 98 Oxygen Delivery Method Room Air Room Air 11/23/24 22:29 Temperature 98.1 F Temperature Source Pulse Rate 74 Respiratory Rate 23 H Respiratory Effort Blood Pressure 97/72 Blood Pressure Mean 80 Pulse Ox 97 Oxygen Delivery Method Positive well nourished and well developed General Appearance ED: well developed and NAD HEENT Reports moist mucous membranes normocephalic and atraumatic Eyes General Eye ED: Yes normal appearance of both eyes Neck full ROM Chest Wall Chest: Negative for tenderness Resp normal respiratory effort and normal air movement Effort and Inspection: symmetric chest movement; Negative for respiratory distress Cardio regular rate, regular rhythm and no murmurs Peripheral Pulses: pulses 2+ throughout GI normal to inspection, nondistended, normoactive bowel sounds and non-tender Palpation: Negative for guarding or rebound tenderness present Extremity normal to inspection General Extremety ED: Negative for edema or tenderness General Extremity: Negative for edema Neuro oriented x3 and no sensory deficits noted Sensorium / Orientation: awake and alert Skin no rashes or lesions noted and no wounds Heart Score History: Slightly/Non-Suspicious ECG: Normal Age: </= 45 years Risk Factors: 1 or 2 Risk Factors Troponin: </= Normal Limit Score: 1 MDM MDM MDM Narrative Medical decision making narrative: Interventions / MDM: Differential diagnosis: Atypical chest pain. Palpitations, history of A-fib with ablation Diagnosis considered but do not suspect: Pulmonary illness however PERC negative. My EKG interpretation: Sinus rate of 76, no ST changes. QTc 416. Imaging independently reviewed and interpreted by myself: 2 view chest x-ray: No acute process also read by radiology. External documents reviewed: N/A Test considered but not ordered:N/A ED course: Patient chest pain started 7 PM. Palpitations resolved. Nausea. History of A-fib with ablation 2014. Will check cardiac labs including thyroid screening. Will treat with Zofran. PERC criteria negative. Patient cardiac enzyme negative labs are stable. TSH normal. Nausea improved. Patient does have Zofran at home to use from previous surgeries. She is given cardiology for follow-up.Discussed return precautions. Re-evaluation: stable Disposition discussed with patient/family/significant other: Patient Case discussed with consulting clinician: N/A This note was generated with [employer]gar dictation software. It may contain incorrect words, spelling, and punctuation that were not noted in checking the note before signing. Lab Data Attestation: I reviewed the patient's lab results. Labs: Laboratory Results - last 24 hr 11/23/24 20:24 WBC 7.9 RBC 4.84 Hgb 14.9 Hct 42.4 MCV 87.6 MCH 30.8 MCHC 35.1 RDW Std Deviation 39.5 RDW Coeff of Debra 12.3 Plt Count 331 MPV 10.4 Immature Gran % (Auto) 0.400 Neut % (Auto) 49.5 Lymph % (Auto) 35.9 Tripp % (Auto) 8.0 Eos % (Auto) 5.6 H Baso % (Auto) 0.6 Absolute Neuts (auto) 3.9 Absolute Lymphs (auto) 2.84 Nucleated RBC % 0 Sodium 139 Potassium 3.7 Chloride 103 Carbon Dioxide 19.7 L Anion Gap 16 H BUN 11 Creatinine 1.06 Estim Creat Clear Calc 79.55 Est GFR (MDRD) Non-Af 71 BUN/Creatinine Ratio 10.6 Glucose 89 Calcium 9.9 Troponin T High Sens < 6 TSH 1.310 Radiography Diagnostic Testing: Clinical Impression(s) from Imaging Studies Chest X-Ray 11/23/24 21:40 IMPRESSION: NEGATIVE CHEST Reading Location: [facility] Discharge Plan Triage Chief Complaint: Chest Pain Other Complaint: Abd Pain ED Provider: Ryan Pearson Dx/Rx/DC Orders Clinical Impression: Chest pain, Palpitations Instructions: ED Chest Pain, Uncertain Cause, ED Palpitations Prescriptions: No Action NK Primary Care Provider: Deshaun Chao Referrals: Deshaun Chao MD [Primary Care Provider] - Louis Rodriguez MD [Med Staff - Active Staff] - 1 Week Activity Restrictions/Additional Instructions: EKG normal your labs troponin negative. Your thyroid levels normal. Use your home Zofran as needed. Tylenol Motrin as needed. Follow-up with cardiology with your history of A-fib and ablation in the past. If you develop any recurrent worsening symptoms, return to ED for reevaluation. Print Language: Kazakh Disposition Disposition: Home, Self Care Discharge Date/Time: 11/23/24 22:34
[2024-11-23] MEDS: Ondansetron 4 MG/2 ML Vial IV (21:37)
--- NOTE | 2024-11-23 21:40 | RAD_ITS ---
PROCEDURE: CHEST PA AND LATERAL 11/23/2024 REASON FOR EXAM: CHEST PAIN TECHNIQUE: CHEST PA AND LATERAL COMPARISON: Chest radiograph 05/08/2018. FINDINGS: Hardware: None. Heart: The heart size is normal. Mediastinum: The mediastinal contour is unremarkable. Lungs: No focal consolidation, pleural effusion or pneumothorax. Bones: The bones are unremarkable. RAD/Chest PA and Lateral IMPRESSION: NEGATIVE CHEST Reading Location: [id number]
--- OUTSIDE RECORDS SUMMARY | 2024-11-23 21:42 | XMS RPT_ITS | CCD ---
Author Organization [facility] Care Team Providers Care Ward Aide Name Role Phone Kam Crandall Unavailable Unavailable RENETTA SOW Attending Unavailable IMCA Referring Unavailable Davide Chao Primary Care Unavailable RENETTA SOW Attending Unavailable RENETTA SOW Referring Unavailable Davide Chao Primary Care Unavailable Davide Chao Primary Care Provider [phone] RENETTA SOW Attending Unavailable JERRY MORILLO Referring Unavailable RENETTA SOW Attending Unavailable RENETTA SOWROOLGAH Referring Unavailable HITESH RESTREPO Attending Unavailabl e PROVIDER, UNKNOWN Referring Unavailable Davide Chao Primary Care Unavailable Alexis Hernadez Attending Unavailable PROVIDER, UNKNOWN Referring Unavailable Davide Chao Primary Care Unavailable UNKNOWN, PROVIDER Attending Unavailable Davide Chao Primary Care Provider Davide Chao Unavailable Rm Veras Unavailable Unavailable Davide Chao MD Primary Care Provider Davide Blount Unavailable Unavailable Cheyanne Izaguirre Unavailable Unavailable Son Gunderson Unavailable Davide Chao MD Primary Care Provider [facility] Attending Un available SYSTEM, PROVIDER NOT IN Referring Unavaila ble DAVIDE CHAO Primary Care Unavailable ALEXANDRIA DIAZ Admitting Unavail able DAVIDE CHAO Primary Care Unavailable BARBARA SANDOVAL Attending Unavailable BARBARA SANDOVAL Admitting Unavailable DAVIDE CHAO Primary Care Unavailable MARICEL SIMEON Attending Unavailable DAVIDE CHAO Primary Care Unavailable TIKA RODRIGUEZ Attending UnavailTIKA Spears Admitting Unavailabl e RICHARD, YURI MOORE Attending Unavailable RICHARD, YURI MOORE Referring Unavailable ELDERBROSYDNEY, DAVIDE Primary Care Unavailable RICHARD, YURI MOORE Admitting Unavailable RICHARD, YURI MOORE Referring Unavailable ELDERBROSYDNEY, DAVIDE Primary Care Unavailable BLANCO, MARICEL MAKENZIE Admitting Unavailable RICHARD, YURI MOORE Attending Unavailable BLANCO, MARICEL MAKENZIE Referring Unavailable ZHANNA, DAVIDE Primary Care Unavailable Davide Chao MD Primary Care Provider PROVIDER, UNKNOWN Attending Unavailable PROVIDER, UNKNOWN Admitting Unavailable PATIENT, SELF Referring Unavailable Davide Chao Unavailable Unavailable Unavailable Andry Rueda Unavailable Davide Chao MD Primary Care Provider MIREYA DEWITT Attending Unavailabl e ZHANNA, DAVIDE Primary Care Unavailable Davide Chao MD Primary Care Provider Davide Chao MD Primary Care Provider Davide Chao MD Primary Care Provider Davide Chao Primary Care Provider [phone] Dr. Davide Chao Primary Care Provider Dr. Davide Chao Referring Provider Dr. Yuri Crenshaw Attending Provider DAVIDE CHAO Primary Care Unavailable DIAB, NERY Attending Unavailable ZHANNA, DAVIDE Primary Care Unavailable SKYE, YANIV P Attending Unavailable ZHANNA, DAVIDE Primary Care Unavailable SKYE, YANIV P Referring Unavailable ELDERBROSYDNEY, DAVIDE Primary Care Unavailable SKYE, YANIV P Referring Unavailable ELDERAGUSTO, DAVIDE Primary Care Unavailable DIPAK DIETZ Attending U navailable ZHANNA, DAVIDE Primary Care Unavailable ANDRY ECKERT JR. Attending Unav ailable ZHANNA, DAVIDE Primary Care Unavailable Zhanna, Dr. Davide Walsh Primary Care Unav ailMD ANDRY Olivier Attending Unavail able MD ANDRY RUEDA Attending Unavail able Zhanna, Dr. Davide Walsh Primary Care Unav MD ANDRY Esquivel Referring Unavail able Elderbrosydney, Dr. Davide Walsh Primary Care Unav ailable MD ANDRY RUEDA Attending Unavail able MD ANDRY RUEDA Referring Unavail able [place], Dr. Davide Walsh Primary Care Unav ailable MD ANDRY RUEDA Attending Unavail able MD ANDRY RUEDA Referring Unavail able [place], Dr. Davide Walsh Primary Care Unav ailable MD ANDRY RUEDA Attending Unavail able MOHIT, MD ANDRY EDWARD Referring Unavail able Abdulkadir, Dr. Anil Sharma Attending Unavailabl e [place], Dr. Anil Sharma Referring Unavailabl e [place], Dr. Davide Walsh Primary Care Unav ailMD ANDRY Olivier Attending Unavail able MOHIT, MD ANDRY EDWARD Referring Unavail able [place], Dr. Davide Walsh Primary Care Unav ailable MD ADNRY RUEDA Referring Unavail able MOHIT, MD ANDRY EDWARD Attending Unavail able [place]ros[place], Dr. Davide Walsh Primary Care Unav ailable Zhanna, Dr. Davide Walsh Primary Care Unav ailMD ANDRY Olivier Referring Unavail able MD ANDRY RUEDA Attending Unavail able Zhanna, Dr. Meade Primary Care Provider Zhanna, Dr. Meade Referring Provider [phone] Dr. Yuri Crenshaw Attending Provider [phone] Dr. Melissa Brasher Attending Provider Rosi, Byron I Unavailable Unavailable DAVIDE CHAO Primary Care Unavailable MELISSA VANG Referring Unavailab SUSANNE Snow Attending Unavailable Davide Chao MD Primary Care Provider TIM Salinas Attending Provider Zhanna, Dr. Davide Walsh Attending Unav ailable Zhanna, Dr. Davide Walsh Primary Care Chiquitav ailable Zhanna, Dr. Davide Walsh Primary Care Chiquitav ailbridgette Rueda, Dr. Andry Edward Attending Unavai lablarissa Rueda, Dr. Andry Edward Referring Unavai geo Valladares, Dr. John Myers Attending Un available Zhanna, Dr. Davide Walsh Primary Care Byron Chen Attending Unavailable Zhanna, Dr. Davide Walsh Primary Care [facility]av ailable [facility] Walsh Attending Chiquitav ailable Zhanna, Dr. Davide Walsh Primary Care Unav ailable Zhanna, Dr. Davide Walsh Attending Chiquitav ailable Zhanna, Dr. Davide Walsh Primary Care Unav ailable Zhanna, Dr. Davide Walsh Attending Chiquitav ailable Zhanna, Dr. Davide Walsh Primary Care Chiquitav ailbridgette Chao, Dr. Meade Primary Care Provider [phone] Zhanna, Dr. Meade Referring Provider [phone] Dr. Melissa Brasher Attending Provider Dr. Yuri Crenshaw Attending Provider Anna VENDING MACHINE REPAIRER, VENDING MACHINE REPAIRER-C Love Attending Provider [phone] TIM Roach Attending Provider Dr. Yuri Crenshaw Referring Provider [phone] Dr. Yuri Crenshaw Other Provider TIM Roach Other Provider Dr. Davide Chao Primary Care Provider [phone] Dr. Davide Chao Referring Provider [phone] Dr. Melissa Brasher Attending Provider [phone] Anna VENDING MACHINE REPAIRER, VENDING MACHINE REPAIRER-C Love Other Provider Brad, TIM Sanchez Referring Provider Brad, ANTONIM Laura Other Provider Dr. Zander Morales Attending Provider Dr. Davide Chao Primary Care Provider [phone] Dr. Davide Chao Referring Provider [phone] TIM Salinas Attending Provider Davide Chao MD Primary Care Provider Dr. Davide Chao Primary Care Provider [phone] Dr. Davide Chao Referring Provider [phone] Dr. Yuri Crenshaw Attending Provider [phone] TIM Roach Referring Provider [phone] Dr. Yuri Crenshaw Admit Provider Dr. Melissa Brasher Referring Provider [phone] Dr. Melissa Brasher Other Provider Davide Chao MD Primary Care Provider GUMPRECHT, ALINA Referring Unavailable DAVIDE CHAO Primary Care Unavailable GUMPRECHT, ALINA Attending Unavailable MAXX, ALINA Referring Unavailable DAVIDE CHAO Primary Care Unavailable MAXX, ALINA Attending Dr. Davide Gonzalez Primary Care Provider TIM Roach Attending Provider [phone] TIM Roach Referring Provider [phone] TIM Roach Other Provider [phone] Davide Chao Referring Provider Dr. Yuri Crenshaw Admit Provider Dr. Yuri Crenshaw Attending Provider [phone] Dr. Yuri Crenshaw Referring Provider [phone] Dr. Yuri Crenshaw Other Provider Dr. Melissa Brasher Attending Provider [phone] Dr. Melissa Brasher Referring Provider [phone] Dr. Melissa Brasher Other Provider Anna VENDING MACHINE REPAIRER, VENDING MACHINE REPAIRER-C Love Attending Provider [phone] Dr. Davide Chao Primary Care Provider [phone] Dr. Davide Chao Referring Provider GUMPRECHT, ALINA Referring Unavailable DAVIDE CHAO Primary Care Unavailable GUMPRECHT, ALINA Attending Unavailable DAVIDE CHAO Primary Care Unavailable SELF, SELF Referring Unavailable MAXX, ALINA Attending Unavailable Dr. Davide Chao Primary Care Provider [phone] Dr. Davide Chao Referring Provider Anna VENDING MACHINE REPAIRER, VENDING MACHINE REPAIRER-C Love Attending Provider Dr. Melissa Brasher Attending Provider [phone] Dr. Melissa Brasher Referring Provider Dr. Melissa Brasher Other Provider Davide Chao MD Primary Care Provider DAVIDE CHAO Primary Care UnavailSON Flannery W Attending Unavailable DAVIDE CHAO Primary Care Unavaila CHEYANNE Bassett Attending Unavailable DAVIDE CHAO Primary Care UnavailSON Flannery W Attending Unavailable DR DAVIDE CHAO MD Primary Care Physician ANATOLIY BRYANT Admitting Unavailable ANATOLIY BRYANT Attending Unavailable ANATOLIY BRYANT Primary Care Unavailable ROBER HANEY Consulting Unavailable ROBER HANEY Referring Unavailable PROVIDER, UNKNOWN Consulting Unavailable PROVIDER, UNKNOWN Consulting Unavailable PROVIDER, UNKNOWN Consulting Unavailable ANTONETTE MENDEZ Admitting Unavailable ANTONETTE MENDEZ Attending Unavailable ANTONETTE MENDEZ Primary Care Unavailable DAVIDE CHAO Consulting Unavailable PROVIDER, UNKNOWN Consulting Unavailable RAMON PULLIAM MD Attending Unavailable DR DAVIDE CHAO MD Primary Care Unavailab larissa Rock LINE PILOT.EMAIL DESIGNER, Harini Unavailable Frank LINE PILOT.EMAIL DESIGNER, Isaac Unavailable ALINA ALVARADO Referring Unavailable ALINA ALVARADO Attending Unavailable DAVIDE CHAO Primary Care Unavailable Dr. Davide Chao MD Primary Care Provider [phone] Dr. Davide Chao MD Referring Provider Anna VENDING MACHINE REPAIRER-CLove Attending Provider Anna VENDING MACHINE REPAIRER-C, Love Referring Provider Laura Salinas CNM Attending Provider Laura Salinas CNM Referring Provider Dr. Melissa Brasher DO Attending Provider Keith Saxena DO, Dr. Torres Referring Provider DAVIDE CHAO Referring Unavailable ELDERBROCK, DAVIDE Oglesby Primary Care Unavailable ELDERBROCK, DAVIDE D Primary Care Unavailable BOGNER, RAYO Attending Unavailable ELDERBROCK, DAVIDE D Primary Care Unavailable BOGNER, RAYO Referring Unavailable ELDERBROCK, DAVIDE D Primary Care Unavailable ELDERBROCK, DAVIDE D Attending Unavailable ELDERBROCK, DAVIDE D Attending Unavailable ELDERBROCK, DAVIDE D Primary Care Unavailable ELDERBROCK, DAVIDE D Attending Unavailable ELDERBROCK, DAVIDE D Primary Care Unavailable ELDERBROCK, DAVIDE D Referring Unavailable ELDERBROCK, DAVIDE D Primary Care Unavailable ELDERBROCK, DAVIDE D Primary Care Unavailable CHANNING MARINA Attending Unavailable CHANNING MARINA Referring Unavailable ELDERBROCK, DAVIDE D Primary Care Unavailable ELDERBROCK, DAVIDE D Attending Unavailable ELDERBROSYDNEY, DAVIDE D Primary Care Unavailable ELDERAGUSTO, DAVIDE D Attending Unavailable ELDERSAUDCK, DAVIDE D Primary Care Unavailable Pranav SALCEDO.Harini MESA Unavailable [phone] Zhanna LIMON, Dr. Meade Primary Care Provider [phone] Dr. Davide Chao MD Referring Provider Harini Rock APRN.CNP Unavailable Melissa Brasher Attending Unavailabl e Vande VelMelissa kan Referring Unavailabl e [place], Davide Primary Care Unavailable Melissa Brasher Attending Unavailabl e Vande VeldeMelissa Referring Unavailabl e [place], Davide Primary Care Unavailable Love Castillo Attending Unavailable Love Castillo Referring Unavailable [place], Davide Primary Care Unavailable Laura Salinas Attending Unavailable Salinas, Laura Referring Unavailable [place], Davide Primary Care Unavailable Melissa Brasher Attending Unavailabl e Vande VeldeMelissa Referring Unavailabl e [place], Davide Primary Care Unavailable Laura Salinas Attending Unavailable Salinas, Laura Referring Unavailable [place], Davide Primary Care Unavailable Jeanette Roach Attending Unavailable Jeanette Roach Referring Unavailable [place], Davide Primary Care Unavailable Laura Salinas Attending Unavailable [place], Davide Referring Unavailable [place], Davide Primary Care Unavailable Love Castillo Attending Unavailable Davide Chao Referring Unavailable Davide Chao Primary Care Unavailable Melissa Brasher Attending UnavailDavide Sweet Referring Unavailable Davide Chao Primary Care Unavailable Melissa Brasher Attending UnavailMelissa Montgomery Referring UnavailDavide Sweet Primary Care Unavailable Jeanette Roach CNM Attending Provider [phone] Jeanette Roach CNM Referring Provider Allergies Allergy Classification Reported Allergen(s) Allergy Type Date of Onset Reaction(s) Facility Penicillins (antibiotic) (2 sources) Penicillins Drug Allergy 05-13-20 15 [facility] (8 sources) Penicillins; 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: [PENICILLINS] Drug allergy (disorder) 01-16-20 08 [facility] Repository (6 sources) TRICYCLIC COMPOUNDS; 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: [TRICYCLIC COMPOUNDS] Propensity to adverse reactions (disorder) 08-16-19 12 Other: See Comments [facility] Repository (20 sources) Lactose; 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: [LACTOSE] Drug Allergy 08-21-19 19 GI Upset, Dyspepsia [facility] Repository (1 source) Penicillin; 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: [PENICILLIN G] Drug Allergy [facility] Repository (4 sources) Tricyclic Antidepressants; 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: [TRICYCLIC ANTIDEPRESSANTS] Propensity to adverse reactions to drug (disorder) 08-16-19 12 [facility] Rep[facility] (15 sources) Penicillins; 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: [Penicillins] Allergy to drug (finding) [facility] [employer] Work Phone: (15 sources) Tetracycline; 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: [tetracycline] Drug Allergy [place] [address] [employer] Work Phone: (20 sources) guaiFENesin; 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: [GUAIFENESIN] Drug Allergy 10-31-19 19 Other: See Comments [facility] (20 sources) metroNIDAZOLE; 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: [METRONIDAZOLE HCL] Drug Allergy 09-27-19 19 GI Upset [facility] Work Phone: (20 sources) Dog Dander; 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: [DOG DANDER] Drug Allergy 10-26-19 19 Other: See Comments [facility] (20 sources) Tricyclic Antidepressants And Tricyclic Compounds; 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: [TRICYCLIC ANTIDEPRESSANTS AND TRICYCLIC COMPOUNDS] Drug Intolerance 08-16-19 12 Other: See Comments [facility] Work Phone: (1 source) Penicillins Propensity to adverse reactions to drug 09-19-19 19 [facility] (3 sources) Antidepressants Propensity to adverse reactions 07-29-19 23 Other [facility] (20 sources) metroNIDAZOLE Drug Allergy 09-27-19 19 Dyspepsia [facility] (3 sources) *Animal Dander Propensity to adverse reactions to substance 10-26-19 [facility] (17 sources) traZODone Drug Allergy 10-29-19 23 suicidal ideation [facility] (17 sources) Tetracyclic Antidepressants Propensity to adverse reactions 10-29-19 23 suicidal ideation [facility] (17 sources) Tricyclic Antidepressants and Tricy Propensity to adverse reactions 10-29-19 23 suicidal ideation [facility] (2 sources) guaiFENesin Drug Allergy 10-31-19 [facility] (1 source) metroNIDAZOLE Drug Allergy 08-20-19 [facility] Rep[facility] (1 source) Tricyclic Antidepressants and Tricy Drug allergy (disorder) 08-20-19 25 [facility] Repository (1 source) Tetracyclic Antidepressants Drug allergy (disorder) 08-20-19 [facility] Rep[facility] (1 source) Phenylpiperazine Antidepressant Drug allergy (disorder) 08-20-19 [facility] Repository Medications Current Medications Medication Drug Class(es) Dates Sig (Normalized) Sig (Original) amoxicillin 875 mg / clavulanate 125 mg oral tablet (1 source) Penicillin-class Antibacterial Start: 11-21-2021 End: 12-01-2021 take 1 tablet by mouth twice daily amoxicillin-clav ulanate (Augmentin) 875-125 mg per tablet Take 1 (one) tablet by mouth 2 (two) times a day for 10 days . 20 tablet 0 11/21/2021 12/01/2021 Active aspirin 81 mg delayed release oral tablet (4 sources) Platelet Aggregation Inhibitor, Nonsteroidal Anti-inflammatory Drug Start: 09-27-2020 End: 09-26-2020 aspirin EC tablet 81 mg aspirin 81 MG Ch ew Tab chewable tablet Chew 1 tablet daily. 0 Active atomoxetine 18 mg oral capsule (15 sources) Norepinephrine Reuptake Inhibitor Start: 06-25-2024 take 1 capsule by mouth once daily Atomoxetine (Strattera) 18 mg capsule Active 36 mg PO daily August 19, 2024 12:00am Start: 06-10-2024 End: 08-06-2024 take 1 capsule by mouth once daily atomoxetine (STRATTERA) 40 mg capsule Indications: ADHD (attention deficit hyperactivity disorder), combined type Take 1 capsule by mouth once daily. 30 capsule 2 06/10/2024 08/06/2024 Discontinued (Changing Therapy/Dosage Form) cetirizine hydrochloride 10 mg oral tablet (1 source) Histamine-1 Receptor Antagonist Start: 11-21-2021 End: 12-21-2021 take 1 tablet by mouth once daily cetirizine (ZYRTEC) 10 MG tablet Take 1 (one) tablet (10 mg total) by mouth daily . 30 tablet 0 11/21/2021 12/21/2021 Active clonazePAM 1 mg oral tablet (2 sources) Benzodiazepine Start: 03-28-2023 End: 05-27-2023 take 1 tablet by mouth twice daily as needed clonazePAM (KLONOPIN) 1 mg tablet Indications: Anxiety with depression Take 1 tablet by mouth two times a day as needed for up to 60 days. 60 tablet 1 03/28/2023 05/27/2023 Active Comment on above: Take 1 tablet by abraham two times a day as needed for up to 60 days. 21 day ethinyl estradiol 0.434532 mg/hr / etonogestrel 0.005 mg/hr vaginal system (8 sources) Progestin, Estrogen Start: 08-30-2018 NuvaRing 0.120 mg-0.015 mg/24 hours vaginal ring Dose = 1 EA, Vaginal, q4wk Start Date: 08/30/18 Status: Ordered End: 07-13-2022 etonogestrel-ethinyl estradi ol (NUVARING) 0.12-0.015 MG/24HR vaginal ring Place 1 each vaginally See Admin Instructions 0 07/13/2022 Discontinued (LIST CLEANUP) etonogestrel-eth inyl estradiol (NUVARING) 0.12-0.015 mg/24 hr vaginal ring Insert 1 each into the vagina every 28 days Insert vaginally and leave in place for 3 consecutive weeks, then remove for 1 week. 0 Active Ethinyl Estradiol / Levonorgestrel (1 source) Progestin, Estrogen, Progestin-containing Intrauterine Device Start: 06-07-2023 End: 08-02-2023 levonorgestreL-ethinyl estrad (Nordette) 0.15-0.03 mg tablet Indications: Vaginal bleeding Take 1 tablet by mouth once daily. Special instructions: Take 4 tablets/day x 3 days then 3 tablets/day for 3 days then 2 tablets/day for 3 days then daily. Skip and discard the 7 days of placebo. 28 tablet 1 06/07/2023 08/02/2023 Active LORazepam 1 mg oral tablet (20 sources) Benzodiazepine Start: 03-29-2024 End: 04-28-2024 take 1 tablet by mouth every twelve hours as needed for anxiety LORazepam (ATIVAN) 1 mg tablet Indications: Anxiety with depression Take 1 tablet by mouth every 12 hours as needed for anxiety for up to 30 days. 60 tablet 03/29/2024 04/28/2024 Active Start: 03-22-2024 LORazepam 1 mg oral tablet Dose : 1 mg = 1 tab(s), Oral, BID, PRN as needed for anxiety, 0 Refill(s), 81.8 Start Date: 03/22/24 Status: Ordered Start: 01-01-2024 End: 01-31-2024 take 1 tablet by mouth every twelve hours as needed for anxiety LORazepam (ATIVAN) 1 mg tablet Indications: Anxiety with depression Take 1 tablet by mouth every 12 hours as needed for anxiety for up to 30 days. 60 tablet 0 01/01/2024 01/31/2024 Active Start: 06-28-2023 take 1 tablet by abraham three times daily Lorazepam (Ativan) 1 mg tablet Active 1 MG PO THREE TIMES A DAY June 28, 2023 12:00am Start: 04-10-2023 End: 08-19-2024 take 1 tablet by mouth twice daily as needed for anxiety Lorazepam (Ativan) 1 mg tablet Discontinued 1 mg PO TWICE A DAY as needed for anxiety June 28, 2023 1:00am August 19, 2024 3:42pm Start: 06-17-2022 End: 07-02-2022 take 1 tablet by mouth every twelve hours as needed for anxiety and anxiety LORazepam (ATIVAN) 1 mg tablet Indications: Anxiety Take 1 tablet by mouth twice daily as needed for anxiety for up to 15 days. 30 tablet 0 06/17/2022 07/02/2022 Active Start: 11-29-2021 End: 02-27-2022 take 1 tablet by mouth every twelve hours as needed for anxiety and anxiety LORazepam (ATIVAN) 1 mg tablet Indications: Anxiety Take 1 tablet by mouth twice daily as needed for anxiety for up to 90 days. 60 tablet 2 11/29/2021 02/27/2022 Active Start: 06-19-2018 End: 12-03-2023 take 1 tablet by mouth every twelve hours as needed for anxiety LORazepam (ATIVAN) 1 mg tablet Indications: Anxiety with depression Take 1 tablet by mouth every 12 hours as needed for anxiety for up to 30 days. 60 tablet 0 11/03/2023 12/03/2023 Active take 1 tablet by abraham th every six hours as needed for anxiety LORazepam (ATIVAN) 1 MG tablet Take 1 mg by mouth every 6 hours as needed for Anxiety. 0 Active Comment on above: Take 1 tablet by abarham th twice daily as needed for anxiety for up to 90 days. Take 1 tablet by abraham th twice daily as needed for anxiety for up to 15 days. Take 1 tablet by abraham th two times a day as needed for anxiety for up to 90 days. Take 1 tablet by abraham th two times a day as needed for anxiety for up to 30 days. meclizine hydrochloride 25 mg oral tablet (1 source) Antiemetic Start: 1 End: 1 take 1 tablet by mouth every six hours meclizine 25 mg oral tablet ; 1 tab(s) orally every 6 hours Quantity: 28 Refills: 0 Ordered: 16-Mar-2021 Cheyanne Izaguirre Start: 16-Mar-2021 End: 22-Mar-2021 Generic Substitution Allowed Comments: May cause drowsiness. Alcohol may intensify this effect. Use care when operating dangerous machinery. Comment on above: May cause drowsiness . Alcohol may intensify this effect. Use care when operating dangerous machinery. 12 hr orphenadrine citrate 100 mg extended release oral tablet (5 sources) Muscle Relaxant Start: 3 take 1 tablet by mouth twice daily as needed for muscle spasms orphenadrine (NORFLEX) 100 MG extended release tablet Take 1 tablet by mouth 2 times daily as needed for Muscle spasms 10 tablet 0 07/14/2022 Active Start: 07-13-2022 End: 07-13-2022 orphenadrine (NORFLEX) injec tion 30 mg pantoprazole 40 mg delayed release oral tablet (17 sources) Proton Pump Inhibitor Start: 03-29-2024 take 1 tablet by mouth once daily Pantoprazole (Protonix) 40 mg tablet,delayed release (DR/EC) Active 40 mg PO daily August 19, 2024 12:00am Start: 09-27-2020 End: 09-26-2020 take 40 mg by mouth once daily 40 mg, Oral, Daily, Fir st dose on 09/27/20 at 0900 DO NOT CRUSH OR CHEW. End: 07-13-2022 take 1 tablet by mouth once daily pantoprazole (PROTONIX) 20 MG tablet Take 20 mg by mouth daily 0 07/13/2022 Discontinued (LIST CLEANUP) 1 oral capsule (2 sources) take 1 capsule by mouth once daily 1 oral capsule ; 1 cap(s) orally once a day Quantity: 0 Refills: 0 Ordered: 14-Jul-2021 Elba Lowery Generic Substitution Allowed Fnmxtazj-Ehl-Qn-FA (PRE-CARLTON PO) (3 sources) take 1 capsule by mouth once daily Bcomulpo-Rcj-Gs-FA (PRE- PO) Take 1 capsule by mouth daily. 0 Active propranolol hydrochloride 40 mg oral tablet (9 sources) beta-Adrenergic Swapnil Start: 06-10-19 take 1 tablet by mouth twice daily as needed propranolol (INDERAL) 40 mg tablet Indications: Anxiety , Elevated blood pressure reading without diagnosis of hypertension Take 1 tablet by mouth two times a day as needed (panic attacks). 30 tablet 5 06/10/2024 Active sotalol hydrochloride 80 mg oral tablet (3 sources) Antiarrhythmic Start: 01-28-20 End: 07-13-19 sotalol 80 mg oral tablet Dose : 80 mg = 1 tab(s), Oral, BID, # 180 tab(s), 0 Refill(s) Start Date: 01/27/17 Status: Ordered End: 06-23-2021 sotalol 80 MG Tab tablet Deandre e 40 mg by mouth 2 times daily. 0 06/23/2021 Discontinued (Stop Taking at Discharge) Zofran ODT 4 mg oral tablet, disintegrating (1 source) Start: 08-30-2018 Zofran ODT 4 m g oral tablet, disintegrating Dose : 4 mg = 1 tab(s), Oral, TID, # 10 tab(s), 0 Refill(s) Start Date: 08/30/18 Status: Ordered Completed/Discontinued Medications Medication Drug Class(es) Dates Sig (Normalized) Sig (Original) acetaminophen 325 mg oral tablet (6 sources) Start: 06-06-2023 End: 06-06-2023 acetaminophen (Tylenol) tablet 650 mg Acetaminophen 32 5 MG tablet Take 1 tablet by mouth as needed for Mild Pain. 0 Active take 3 capsules by m outh every six hours as needed Tylenol 325 mg oral capsule ; 3 cap(s) orally every 6 hours, As Needed Quantity: 0 Refills: 0 Ordered: 14-Oct-2021 Luke Euceda Generic Substitution Allowed acyclovir 50 mg/ml topical cream (2 sources) Herpesvirus Nucleoside Analog DNA Polymerase Inhibitor, Herpes Simplex Virus Nucleoside Analog DNA Polymerase Inhibitor, Herpes Zoster Virus Nucleoside Analog DNA Polymerase Inhibitor Start: 06-17-2022 acyclovir (ZOVIRAX) 5 % crea Apply 1 application to affected area five times daily. Use for 4 days with viral sores. 2 g 3 06/17/2022 Active Comment on above: Apply 1 application to affected area five times daily. Use for 4 days with viral sores. albuterol 0.833 mg/ml / ipratropium bromide 0.167 mg/ml inhalation solution (1 source) Anticholinergic, beta2-Adrenergic Agonist Start: 09-26-2020 End: 09-26-2020 take 3 mL by inhalation every two hours as needed 3 mL, Inhalation, Every 2 hour PRN (RT), wheezing, shortness of breath, Starting 09/26/20 at 2019 ALPRAZolam 0.5 mg oral tablet (6 sources) Benzodiazepine Start: 09-26-2020 End: 05-17-2021 take 0.5 mg by mouth three times daily as needed for sleep 0.5 mg, Oral, 3 times daily PRN, sleep, Starting 09/26/20 at 2018 amoxicillin 500 mg oral capsule (4 sources) Penicillin-class Antibacterial Start: 12-08-2020 End: 12-14-2020 take 1 capsule by mouth three times daily amoxicillin 500 mg oral capsule ; 1 cap(s) orally 3 times a day Quantity: 21 Refills: 0 Ordered: 08-Dec-2020 Davide Blount Start: 08-Dec-2020 End: 14-Dec-2020 Generic Substitution Allowed Comments: Finish all this medication unless otherwise directed by prescriber. Comment on above: Finish all this medi cation unless otherwise directed by prescriber. azithromycin 500 mg oral tablet (16 sources) Macrolide Antimicrobial Start: 01-19-2023 End: 03-04-2023 take 1 tablet by mouth once Azithromycin 500 mg tablet Discontinued 500 mg PO ONCE January 19, 2023 12:00am March 04, 2023 4:14am On Hold: Order Changed busPIRone hydrochloride 7.5 mg oral tablet (15 sources) Start: 01-27-2023 End: 06-28-2023 take 1 tablet by mouth three times daily as needed for anxiety Buspirone 7.5 mg tablet Discontinued 7.5 mg PO THREE TIMES A DAY as needed for anxiety January 27, 2023 12:00am June 28, 2023 2:37pm cephalexin 500 mg oral capsule (16 sources) Cephalosporin Antibacterial Start: 01-16-2023 End: 03-04-2023 take 1 capsule by mouth every six hours Cephalexin 500 mg capsule Discontinued 500 mg PO EVERY 6 HOURS 40 January 16, 2023 12:00am March 04, 2023 4:14am On Hold: Order Completed ciprofloxacin 3 mg/ml / dexamethasone 1 mg/ml otic suspension (4 sources) Corticosteroid, Quinolone Antimicrobial Start: 12-08-2020 End: 12-12-2020 Ciprodex 0.3%-0.1% otic suspension ; 2 drop(s) in each affected ear 4 times a day Quantity: 1 Refills: 0 Ordered: 08-Dec-2020 Davide Blount Start: 08-Dec-2020 End: 12-Dec-2020 Generic Substitution Allowed Comments: For the ear.Shake well before use. Comment on above: For the ear.Shake we ll before use. clindamycin 300 mg oral capsule (1 source) Lincosamide Antibacterial End: 06-23-2021 take 1 capsule by mouth three times daily clindamycin 300 MG Cap Take 300 mg by mouth 3 times daily. 0 06/23/2021 Discontinued (Stop Taking at Discharge) clobetasol propionate 0.5 mg/ml medicated shampoo (5 sources) Corticosteroid Start: 05-24-2021 End: 06-21-2022 Clobetasol Propionate 0.05 % sham Use once daily as directed 118 mL 0 05/24/2021 06/21/2022 Discontinued Comment on above: Use once daily as di rected cyclobenzaprine hydrochloride 10 mg oral tablet (6 sources) Muscle Relaxant Start: 05-26-2020 End: 05-30-2020 take 1 tablet by mouth three times daily cyclobenzaprine 10 mg oral tablet ; 1 tab(s) orally 3 times a day Quantity: 15 Refills: 0 Ordered: 25-May-2020 Bernardo Ramos Start: 25-May-2020 End: 29-May-2020 Status: Other Generic Substitution Allowed Comments: May cause drowsiness. Alcohol may intensify this effect. Use care when operating dangerous machinery.Obtain medical advice before taking any non-prescription drugs as some may affect the action of this medication. Comment on above: May cause drowsiness . Alcohol may intensify this effect. Use care when operating dangerous machinery.Obtain medical advice before taking any non-prescription drugs as some may affect the action of this medication. dicyclomine hydrochloride 10 mg oral capsule (1 source) Anticholinergic End: 07-13-2022 take 1 capsule by mouth four times daily before mealtime dicyclomine (BENTYL) 10 MG capsule Take 10 mg by mouth 4 times daily (before meals and nightly) 0 07/13/2022 Discontinued (LIST CLEANUP) doxycycline hyclate 100 mg oral capsule (1 source) Tetracycline-class Drug Start: 03-16-2018 End: 03-23-2018 doxycycline hyclate 100 mg oral capsule Dose : 100 mg = 1 cap(s), Oral, BID, # 14 cap(s), 0 Refill(s) Start Date: 03/16/18 Stop Date: 03/23/18 Status: Ordered escitalopram 10 mg oral tablet (20 sources) Serotonin Reuptake Inhibitor Start: 12-08-2023 End: 03-29-2024 take 1 tablet by mouth once daily escitalopram oxalate (LEXAPRO) 10 mg tablet Indications: Anxiety with depression Take 1 tablet by mouth once daily. 30 tablet 5 12/08/2023 03/29/2024 Discontinued Start: 09-28-2022 End: 06-28-2023 take 1 tablet by mouth once daily Escitalopram Oxalate Discontinued 0 .ROUTE .COMPLEX April 20, 2023 11:38am June 28, 2023 2:36pm take 1 tablet by mouth once daily Start: 07-07-2021 End: 03-04-2022 take 1 tablet by mouth once daily escitalopram oxalate (LEXAPRO) 10 mg tablet Indications: Anxiety with depression Take 1 tablet by mouth once daily. 180 tablet 3 03/04/2022 Active Start: 06-25-2021 End: 08-19-2024 take 1 tablet by mouth once daily Escitalopram Oxalate 20 mg tablet Discontinued 0 .ROUTE .COMPLEX April 20, 2023 11:38am June 28, 2023 2:36pm take 1 tablet by mouth once daily Start: 10-05-2020 Escitalopram O xalate 10 MG Oral Tablet Quantity: 0 Refills: 0 Ordered: 30-Oct-2020 DO Start : 05-Oct-2020 Active take 2 tablets by mo uth once daily escitalopram 10 MG tablet Take 2 tablets by mouth daily. 0 Active take 1 tablet by abraham th once daily escitalopram oxalate (LEXAPRO) 5 MG tablet Take 5 mg by mouth daily . 0 Active Comment on above: Take 1 tablet by abraham th once daily. etodolac 400 mg oral tablet (1 source) Nonsteroidal Anti-inflammatory Drug Start: 1 End: 1 etodolac 400 mg oral tablet Dose : 400 mg = 1 tab(s), Oral, BID, # 14 tab(s), 0 Refill(s), Neck pain Start Date: 11/05/20 Stop Date: 11/12/20 Status: Ordered famotidine 20 mg oral tablet (20 sources) Histamine-2 Receptor Antagonist Start: 2 End: 3 take 10 mg by mouth twice daily Famotidine (Pepcid) 20 mg Tablet Discontinued 10 mg PO TWICE A DAY June 25, 2021 1:00am February 28, 2023 4:16pm On Hold: Pt stated not taking Start: 05-03-2021 Famotidine 20 MG Oral Tablet Quantity: 0 Refills: 0 Ordered: 07-Jul-2021 DO Start : 03-May-2021 Active Start: 05-03-2021 End: 06-21-2022 take 1 tablet by mouth twice daily famotidine (PEPCID) 20 mg tablet Indications: 16 weeks gestation of , Encounter for supervision of other normal in first trimester , Nausea/vomiting in Take 1 tablet by mouth twice daily. 60 tablet 1 05/03/2021 06/21/2022 Discontinued take 1 tablet by abraham th once daily at bedtime Pepcid 20 mg oral tablet ; 1 tab(s) orally once a day (at bedtime) Quantity: 0 Refills: 0 Ordered: 17-Jul-2021 Adilson Lundberg Generic Substitution Allowed Comment on above: Take 1 tablet by abraham th twice daily. ferrous sulfate 325 mg oral tablet (20 sources) Start: 05-07-20 End: 07-17-19 take 1 tablet by mouth twice daily at mealtime Ferrous Sulfate 325 MG tablet Discontinued 325 mg PO TWICE DAILY WITH MEALS May 07, 2016 1:00am July 17, 2016 11:38am gabapentin 300 mg oral capsule (20 sources) Anti-epileptic Agent Start: 04-10-20 End: 11-05-19 take 1 capsule by mouth three times daily Gabapentin 300 mg capsule Discontinued 300 mg PO THREE TIMES A DAY September 21, 2023 12:00am August 19, 2024 3:42pm Comment on above: Take 1 capsule by mo [facility] three times a day for 90 days. hydrOXYzine pamoate 25 mg oral capsule (6 sources) Antihistamine Start: 11-30-19 take 1 capsule by mouth every eight hours as needed hydrOXYzine pamoate (VISTARIL) 25 mg capsule Take 1 capsule by mouth three times daily as needed for anxiety. 30 capsule 5 11/29/2021 Active Comment on above: Take 1 capsule by mo ut three times daily as needed for anxiety. ibuprofen 400 mg oral tablet (3 sources) Nonsteroidal Anti-inflammatory Drug Start: 09-02-19 19 End: 09-02-19 ibuprofen (ADVIL,MOTRIN) tablet 400 mg take 1 tablet by abraham th every six hours as needed Motrin 600 mg oral tablet ; 1 tab(s) ora lly every 6 hours, As Needed Quantity: 0 Refills: 0 Ordered: 14-Oct-2021 Luke Euceda Generic Substitution Allowed lactobacillus acidophilus [id number] unt oral capsule (15 sources) Start: 09-21-2023 End: 08-19-2024 take 10 capsules by mouth once daily Lactobacillus Acidophilus (Probiotic) 10 billion cell capsule Discontinued 100 NMA PO DAILY September 21, 2023 12:00am August 19, 2024 3:42pm End: 03-29-2024 take 2 tablets by mouth once daily Lactobacillus acidophilus (PROBIOTIC ORAL) Take 2 tablets by mouth once daily. 03/29/2024 Discontinued take 2 tablets by mo ut once daily Lactobacillus acidophilus (PROBIOTIC ORAL) Take 2 tablets by mouth once daily. Active take 2 tablets by mo ut once daily Lactobacillus acidophilus (PROBIOTIC ORAL) Take 2 tablets by mouth once daily. 0 Active levonorgestrel 1.5 mg oral tablet (3 sources) Progestin, Progestin-containing Intrauterine Device Start: 06-21-2022 take 1 tablet by mouth once levonorgestrel (PLAN B ONE-STEP) 1.5 mg tab Take 1 tablet by mouth one time only for 1 dose. 1 tablet 0 06/21/2022 Active Start: 01-10-2022 take 1 tablet by mouth once le vonorgestrel (PLAN B ONE-STEP) 1.5 mg tab Take 1 tablet by mouth one time only for 1 dose. 1 tablet 0 01/10/2022 Active Comment on above: Take 1 tablet by [facility] one time only for 1 dose. lidocaine 0.05 mg/mg medicated patch (6 sources) Antiarrhythmic, Amide Local Anesthetic Start: 0 End: 1 Lidoderm 5% topical film ; Apply topically to affected area once a day Quantity: 90 Refills: 0 Ordered: 25-May-2020 Bernardo Ramos Start: 25-May-2020 End: 23-Jun-2020 Status: Other Generic Substitution Allowed Comments: For external use only.Remove old patch prior to applying a new patch. Comment on above: For external use onl y.Remove old patch prior to applying a new patch. metoprolol tartrate 25 mg oral tablet (14 sources) beta-Adrenergic Swapnil Start: 4 End: 5 take 1 tablet by mouth once daily Metoprolol Tartrate 25 mg tablet Discontinued 25 mg PO DAILY June 28, 2023 1:00am August 19, 2024 3:42pm End: 12-08-2023 take 1 tablet by mouth once daily metoprolol succinate ER (TOPROL XL) 25 mg 24 hr tablet Take 1 tablet by mouth once daily. 0 12/08/2023 Discontinued metroNIDAZOLE 500 mg oral tablet (10 sources) Nitroimidazole Antimicrobial Start: 05-01-2024 End: 05-04-2024 take 1 tablet by mouth twice daily Metronidazole 500 mg tablet Discontinued 500 mg PO TWICE A DAY 6 May 01, 2024 10:43am May 03, 2024 1:00am May 04, 2024 1:15am Start: 04-22-2024 End: 04-29-2024 take 1 tablet by mouth twice daily Metronidazole 500 mg tablet Discontinued 500 mg PO TWICE A DAY 14 April 22, 2024 1:00am April 28, 2024 1:00am April 29, 2024 1:08am nabumetone 500 mg oral tablet (6 sources) Nonsteroidal Anti-inflammatory Drug Start: 05-26-2020 End: 05-30-2020 take 1 tablet by mouth twice daily at mealtime nabumetone 500 mg oral tablet ; 1 tab(s) orally 2 times a day Quantity: 10 Refills: 0 Ordered: 25-May-2020 Bernardo Ramos Start: 25-May-2020 End: 29-May-2020 Status: Other Generic Substitution Allowed Comments: It is very important that you take or use this exactly as directed. Do not skip doses or discontinue unless directed by your doctor.May cause drowsiness or dizziness.Obtain medical advice before taking any non-prescription drugs as some may affect the action of this medication.Take with food or milk. Comment on above: It is very important that you take or use this exactly as directed. Do not skip doses or discontinue unless directed by your doctor.May cause drowsiness or dizziness.Obtain medical advice before taking any non-prescription drugs as some may affect the action of this medication.Take with food or milk. naproxen 500 mg oral tablet (6 sources) Nonsteroidal Anti-inflammatory Drug Start: 10-03-2023 End: 10-11-2023 take 1 tablet by mouth twice daily as needed for pain Naproxen 500 mg tablet Discontinued 500 mg PO TWICE A DAY as needed for pain October 03, 2023 12:00am October 11, 2023 9:41am nitroglycerin 0.4 mg/actuat mucosal spray (1 source) Nitrate Vasodilator Start: 06-09-2023 End: 06-09-2023 nitroGLYCERIN (NITROLINGUAL) spray 1 spray norethindrone acetate 5 mg oral tablet (9 sources) Start: 06-28-2023 End: 09-04-2023 Norethindrone Acetate 5 mg tablet Discontinued 5 mg PO .COMPLEX June 28, 2023 1:00am September 04, 2023 8:13am 5 mg PO tid until bleeding stops X 24 hr then bid to finish Rx omeprazole 20 mg delayed release oral capsule (20 sources) Proton Pump Inhibitor Start: 01-16-2023 End: 03-18-2023 take 1 capsule by mouth once daily Omeprazole Magnesium (Acid Switch Technician (Omeprazole)) 20 mg capsule,delayed release(DR/EC) Discontinued 20 mg PO DAILY February 28, 2023 4:16pm March 18, 2023 1:48am Start: 10-27-2022 End: 03-28-2023 take 1 capsule by mouth once daily omeprazole (PRILOSEC) 40 mg capsule Indications: Gastritis without bleeding, unspecified chronicity, unspecified gastritis type Take 1 capsule by mouth once daily. 30 capsule 5 10/27/2022 03/28/2023 Discontinued Start: 06-21-2022 take 1 capsule by [facility] once daily omeprazole (PRILOSEC) 40 mg capsule Indications: Gastritis without bleeding, unspecified chronicity, unspecified gastritis type Take 1 capsule by mouth once daily. 30 capsule 5 06/21/2022 Active take 1 capsule by mo [facility] once daily omeprazole (PRILOSEC) 10 MG delayed release capsule Take 10 mg by mouth daily 0 Active take 1 capsule by mo ut once daily omeprazole (PRILOSEC) 20 MG capsule Take 20 mg by mouth daily 0 Active Comment on above: Take 1 capsule by mo [facility] once daily. ondansetron 4 mg disintegrating oral tablet (20 sources) Serotonin-3 Receptor Antagonist Start: 08-10-19 End: 08-10-19 take 1 tablet by mouth every six hours as needed for nausea ondansetron orally disintegrating (ZOFRAN ODT) 4 mg disintegrating tablet Indications: Viral syndrome Take 1 tablet by mouth every 6 hours as needed for nausea/vomiting. 15 tablet 0 08/10/2023 08/10/2023 Discontinued Start: 06-06-2023 End: 06-06-2023 ondansetron ODT (Zofran-ODT) disintegrating tablet 4 mg Start: 07-30-2021 take 1 tablet by abraham th every eight hours as needed for nausea Ondansetron HCl - 8 MG Oral Tablet TAKE 1 TABLET Every 8 hours as needed for nausea Quantity: 10 Refills: 6 Ordered: 30-Jul-2021 Andry Rueda MD Start : 30-Jul-2021 Active Start: 03-17-2021 take 1 tablet by abraham th every six hours ondansetron 8 mg oral tablet, disintegrating ; 1 tab(s) orally every 6 hours Quantity: 12 Refills: 0 Ordered: 16-Mar-2021 Cheyanne Izaguirre Start: 16-Mar-2021 Generic Substitution Allowed Start: 09-26-2020 End: 09-26-2020 take 4 mg intravenously every six hours as needed 4 mg, Intravenous, Every 6 hours PRN, nausea, vomiting, Starting 09/26/20 at 2019 Start: 06-13-2019 End: 06-21-2022 take 1 tablet by mouth every eight hours as needed ondansetron orally disintegrating (ZOFRAN ODT) 4 mg disintegrating tablet Take 1 tablet by mouth every 8 hours as needed for nausea/vomiting. DISSOLVE ON TONGUE 30 tablet 1 04/02/2021 06/21/2022 Discontinued Start: 09-18-2018 End: 07-13-2022 take 1 tablet by mouth every eight hours as needed for nausea ondansetron (ZOFRAN) 4 MG tablet Take 1 tablet by mouth every 8 hours as needed for Nausea 10 tablet 0 09/18/2018 07/13/2022 Discontinued (LIST CLEANUP) Start: 09-01-2018 End: 09-01-2018 ondansetron (ZOFRAN) injecti on 4 mg Comment on above: Take 1 tablet by abraham th every 8 hours as needed for nausea/vomiting. DISSOLVE ON TONGUE Take 1 tablet by abraham th every 6 hours as needed for nausea/vomiting. oxyCODONE hydrochloride 5 mg oral tablet (10 sources) Opioid Agonist Start: 2022 End: 2023 take 1 tablet by mouth three times daily as needed for pain Oxycodone 5 mg tablet Discontinued 5 mg PO THREE TIMES A DAY as needed for pain 20 March 11, 2023 June 28, 2023 2:36pm phenazopyridine hydrochloride 95 mg oral tablet (6 sources) Start: 2023 End: 2024 take 2 tablets by mouth once daily Phenazopyridine 95 mg tablet Discontinued 190 mg PO DAILY September 21, 2023 12:00am August 19, 2024 3:42pm Start: 09-21-2023 take 190 mg by mouth once daily Phenazopyridine Active 190 MG PO DAILY September 21, 2023 12:00am microencapsulated potassium chloride 20 meq extended release oral tablet (20 sources) Start: 01-30-2023 End: 03-04-2023 Potassium Chloride 20 mEq tablet,ER particles/crystals Discontinued 0 .ROUTE .COMPLEX 6 January 31, 2023 9:56am March 04, 2023 4:14am On Hold: Order Completed take 1 tablet twice a day predniSONE 20 mg oral tablet (13 sources) Start: 05-26-2020 End: 05-30-2020 take 3 tablets by mouth once daily at mealtime predniSONE 20 mg oral tablet ; 3 tab(s) orally once a day Quantity: 15 Refills: 0 Ordered: 25-May-2020 Bernardo Ramos Start: 25-May-2020 End: 29-May-2020 Status: Other Generic Substitution Allowed Comments: It is very important that you take or use this exactly as directed. Do not skip doses or discontinue unless directed by your doctor.Obtain medical advice before taking any non-prescription drugs as some may affect the action of this medication.Take with food or milk. Start: 06-13-2019 End: 06-17-2019 take 2 tablets by mouth once daily at mealtime Deltasone 20 mg oral tablet ; 2 tab(s) orally once a day Quantity: 10 Refills: 0 Ordered: 13-Jun-2019 Son Gunderson Start: 13-Jun-2019 End: 17-Jun-2019 Status: Other Generic Substitution Allowed Comments: It is very important that you take or use this exactly as directed. Do not skip doses or discontinue unless directed by your doctor.Obtain medical advice before taking any non-prescription drugs as some may affect the action of this medication.Take with food or milk. Start: 03-16-2018 End: 03-19-2018 predniSONE 20 mg oral tablet Dose : 40 mg = 2 tab(s), Oral, Daily, # 6 tab(s), 0 Refill(s) Start Date: 03/16/18 Stop Date: 03/19/18 Status: Ordered Comment on above: It is very important that you take or use this exactly as directed. Do not skip doses or discontinue unless directed by your doctor.Obtain medical advice before taking any non-prescription drugs as some may affect the action of this medication.Take with food or milk. Multi +DHA 27-0.8-250 MG Oral Capsule (15 sources) Multi + DHA 27-0.8-250 MG Oral Capsule Quantity: 0 Refills: 0 Ordered: 12-Jul-2021 DO Active Gdhxydwv-Kn-Nvy-F e-FA ( VITAMIN) tab (5 sources) End: take 1 tablet by mouth once Qvbzvvlx-Bp-Hew-Fe-F A ( VITAMIN) tab Take 1 tablet by mouth. 0 06/21/2022 Discontinued take 1 tablet by mouth once Pren atal Znhjddbp-Oq-Std-Fe-FA ( VITAMIN) tab Take 1 tablet by mouth. 0 Active Comment on above: Take 1 tablet by abraham th. Vit-Iron Fum-Folic Ac ( Fa) 60 mg iron-1 mg Tablet (20 sources) Start: 06-25-2021 End: 03-18-2023 Vit-Iron Fum-Folic Ac ( Fa) 60 mg iron-1 mg Tablet Discontinued 1 {tbl} PO DAILY June 25, 2021 1:00am March 18, 2023 1:48am Start: 06-25-2021 End: 03-18-2023 take 1 tablet by mouth once daily before mealtime Vit-Iron Fum-Folic Ac ( Fa) 60 mg iron-1 mg Tablet Discontinued 1 TABLET PO DAILY June 25, 2021 12:00am March 18, 2023 12:48am Start: 06-25-2021 End: 03-18-2023 take 1 tablet by mouth once daily before mealtime Vit-Iron Fum-Folic Ac ( Fa) 60 mg iron-1 mg Tablet Discontinued 1 TABLET PO DAILY June 25, 2021 1:00am March 18, 2023 1:48am Start: 06-25-2021 take 1 tablet by abraham th once daily before mealtime Vit-Iron Fum-Folic Ac ( Fa) 60 mg iron-1 mg Tablet Active 1 TABLET PO DAILY June 25, 2021 1:00am Start: 06-25-2021 take 1 tablet by abraham th once daily before mealtime Vit-Iron Fum-Folic Ac ( Fa) 60 mg iron-1 mg Tablet Active TABLET PO DAILY June 25, 2021 1:00am Start: 06-25-2021 take 1 tablet by abraham th once daily before mealtime Vit-Iron Fum-Folic Ac ( Fa) 60 mg iron-1 mg Tablet Active TABLET PO DAILY June 25, 2021 12:00am promethazine hydrochloride 12.5 mg oral tablet (20 sources) Phenothiazine Start: 08-10-2023 End: 11-03-2023 take 1 tablet by mouth every six hours as needed promethazine (PHENERGAN) 12.5 mg tablet Indications: Viral syndrome Take 1 tablet by mouth every 6 hours as needed. 10 tablet 0 08/10/2023 11/03/2023 Discontinued (Course of therapy completed) Start: 08-17-2022 End: 03-04-2023 take 1 tablet by mouth every six hours as needed for nausea and vomiting Promethazine 12.5 mg tablet Discontinued 12.5 mg PO EVERY 6 HOURS as needed for nausea and vomiting 60 January 18, 2023 12:00am March 04, 2023 4:14am On Hold: Order Completed Start: 03-17-2021 Promethegan 25 mg rectal suppository ; 1 suppository(ies) rectally every 6 hours Quantity: 10 Refills: 0 Ordered: 16-Mar-2021 Cheyanne Izaguirre Start: 16-Mar-2021 Generic Substitution Allowed Comments: For rectal use only.Keep in refrigerator. Do not freeze.May cause drowsiness. Alcohol may intensify this effect. Use care when operating dangerous machinery.Obtain medical advice before taking any non-prescription drugs as some may affect the action of this medication. Start: 08-30-2018 Phenergan 25 m g rectal suppository Dose : 25 mg = 1 supp, Rectal, q4h, # 12 supp, 0 Refill(s) Start Date: 08/30/18 Status: Ordered Comment on above: For rectal use only. Keep in refrigerator. Do not freeze.May cause drowsiness. Alcohol may intensify this effect. Use care when operating dangerous machinery.Obtain medical advice before taking any non-prescription drugs as some may affect the action of this medication. Take 1 tablet by abraham th every 6 hours as needed. pyridoxine hydrochloride 25 mg oral tablet (5 sources) Start: 05-03-20 End: 06-21-19 23 take 1 tablet by mouth three times daily pyridoxine, vitamin B6, (VITAMIN B-6) 25 mg tablet Indications: 16 weeks gestation of , Nausea/vomiting in Take 1 tablet by mouth three times daily. 100 tablet 1 05/03/2021 06/21/2022 Discontinued Comment on above: Take 1 tablet by abraham three times daily. raNITIdine 25 mg/ml injectable solution (1 source) Histamine-2 Receptor Antagonist End: 07-13-19 ranitidine HCl (ZANTAC) 1000 MG/40ML injection Inject as directed 0 07/13/2022 Discontinued (LIST CLEANUP) 1000 ml sodium chloride 9 mg/ml injection (3 sources) Start: 06-09-19 End: 06-09-19 24 Sodium chloride 0.9% IV solution 1,000 mL Start: 06-06-2023 End: 06-07-2023 sodium chloride 0.9 % bolus 1,000 mL Start: 09-01-2018 End: 09-02-2018 sodium chloride (PF) (NS) fl ush 5 mL sodium chloride (PF) (NS) 0.9 % contrast line flush 10 mL (1 source) Start: 09-26-2020 End: 09-26-2020 sodium chloride (PF) (NS) 0.9 % contrast line flush 10 mL tamsulosin hydrochloride 0.4 mg oral capsule (2 sources) alpha-Adrenergic Swapnil Start: 09-01-2018 End: 09-06-2018 tamsulosin (FLOMAX) 24 hr capsule 0.4 mg terconazole 8 mg/ml vaginal cream (18 sources) Azole Antifungal Start: 09-28-2022 End: 10-01-2022 Terconazole 0.8 % cream Discontinued 1 NMA VAGINAL AT BEDTIME 20 September 28, 2022 12:00am September 30, 2022 12:00am October 01, 2022 12:13am Start: 09-28-2022 End: 10-01-2022 Terconazole Discontinued 1 A PPFUL VAGINAL AT BEDTIME 20 September 28, 2022 12:00am October 01, 2022 12:13am tiZANidine 2 mg oral capsule (9 sources) Central alpha-2 Adrenergic Agonist Start: 11-05-2020 End: 11-12-2020 tiZANidine 2 mg oral capsule Dose : 2 mg = 1 cap(s), Oral, q8h, PRN as needed for muscle spasm, # 21 cap(s), 0 Refill(s), Neck pain Start Date: 11/05/20 Stop Date: 11/12/20 Status: Ordered take 1 tablet by abraham th three times daily as needed for muscle spasms Tizanidine 2 MG tablet Take 1 tablet by mouth 3 times daily as needed for Muscle spasms. 0 Active traZODone hydrochloride 50 mg oral tablet (1 source) Serotonin Reuptake Inhibitor Start: 06-21-2022 take 1 tablet by mouth once daily at bedtime traZODone (DESYREL) 50 mg tablet Indications: Chronic insomnia Take 1 tablet by mouth daily at bedtime. 30 tablet 5 06/21/2022 Active Comment on above: Take 1 tablet by abraham th daily at bedtime. ursodiol 300 mg oral capsule (14 sources) Bile Acid Start: 01-30-2023 End: 03-04-2023 take 1 capsule by mouth twice daily Ursodiol 300 mg capsule Discontinued 300 mg PO TWICE A DAY 60 January 30, 2023 12:00am March 04, 2023 4:14am On Hold: Order Completed valACYclovir 500 mg oral tablet (20 sources) Herpesvirus Nucleoside Analog DNA Polymerase Inhibitor, Herpes Simplex Virus Nucleoside Analog DNA Polymerase Inhibitor, Herpes Zoster Virus Nucleoside Analog DNA Polymerase Inhibitor Start: 05-03-2021 End: 08-19-2024 take 1 tablet by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 [address] Performed By: #### 2 4331-1, 30668-6 ####[facility] LABIA [id number] [place] [id number] [place] CO2 [Moles/Vol] 25 mmol/L Normal 22-30 [facility] Comment on above: Order Comment: Speci men Type: BLOOD SPECIMENOrdering Facility: [facility] Address: [address] [place] [address] Performed By: #### 2 4331-1, 10611-9 ####[facility] LABIA [id number] [place] [address] [place] Creatinine [Mass/Vol] 0.75 mg/dL Normal 0.58-0.96 [facility] Comment on above: Order Comment: Speci men Type: BLOOD SPECIMENOrdering Facility: [facility] Address: [address] [place] [address] Performed By: #### 2 4331-1, 92596-8 ####[facility] [id number] [place] [address] [place] [facility] Creatinine and Glomerular filtration rate.predicted panel (S/P/Bld) 107 mL/min/1.73m??? Normal >=60 [facility] Comment on above: Order Comment: Speci men Type: BLOOD SPECIMENOrdering Facility: [facility] Address: [address] [place] [address] Result Comment: Yolanda mated Glomerular Filtration Rate (eGFR) is calculated using the 2020 CKD-EPI creatinine equation. This equation utilizes serum creatinine, sex, and age as parameters. The creatinine assay has traceable calibration to isotope dilution-mass spectrometry. Refer to KDIGO guidelines for clinical interpretation. In patients with unstable renal function, e.g. those with acute kidney injury, the eGFR may not accurately reflect actual GFR. Performed By: #### 2 4331-, ####[facility] LABCLIA [id number] [address] [address] [place] Glucose [Mass/Vol] 105 mg/dL High 74-99 [facility] Comment on above: Order Comment: Casandra moran Type: BLOOD SPECIMENOrdering Facility: [facility] Address: [address] [place] [address] Result Comment: The [place] Diabetes Association (ADA) provides guidance for cutoff values for fasting glucose and random glucose. The ADA defines fasting as no caloric intake for at least 8 hours. Fasting plasma glucose results between 100 to 125 mg/dL indicate increased risk for diabetes (prediabetes). Fasting plasma glucose results greater than or equal to 126 mg/dL meet the criteria for diagnosis of diabetes. In the absence of unequivocal hyperglycemia, results should be confirmed by repeat testing. In a patient with classic symptoms of hyperglycemia or hyperglycemic crisis, random plasma glucose results greater than or equal to 200 mg/dL meet the criteria for diagnosis of diabetes. Reference: Standards of Medical Care in Diabetes 2016, [place] Diabetes Association. Diabetes Care. 2016.39(Suppl 1). Performed By: #### 2 4331-, ####[facility] LABCLIA [id number] [facility] [place] [id number] [place] Potassium [Moles/Vol] 4.6 mmol/L Normal 3.7-5.1 [facility] Comment on above: Order Comment: Casandra moran Type: BLOOD SPECIMENOrdering Facility: [facility] Address: [address] [place] [address] Performed By: #### 2 433-, ####[facility] LABCLIA [id number] [address] [address] [place] Protein [Mass/Vol] 6.9 g/dL Normal 6.3-8.0 [facility] Comment on above: Order Comment: Speci men Type: BLOOD SPECIMENOrdering Facility: [facility] Address: [address] [place], [place] [address] Performed By: #### 2 4331-1, ####[facility] LABCLIA [id number] [address] [place] [address] [place] Sodium [Moles/Vol] 139 mmol/L Normal 136-144 [facility] Comment on above: Order Comment: Speci men Type: BLOOD SPECIMENOrdering Facility: [facility] Address: [address] [place] [address] Performed By: #### 2 4331-1, ####[facility] LABCLIA [id number] [address] [place] [address] [place] Urea nitrogen [Mass/Vol] 9 mg/dL Normal 7-21 [facility] Comment on above: Order Comment: Speci men Type: BLOOD SPECIMENOrdering Facility: [facility] Address: [address] [place] [address] Performed By: #### 2 4331-1, ####[facility] LABCLIA [id number] [address] [place] [address] [place] Lipid 1996 panelon 5 Cholesterol [Mass/Vol] 152 mg/dL Normal <200 [facility] Comment on above: Order Comment: Speci men Type: BLOOD SPECIMENOrdering Facility: [facility] Address: [address] [place], [place] [address] Result Comment: <200 mg/dL, Desirable 200-239 mg/dL, Borderline high >239 mg/dL, High Performed By: #### 2 4331-1, 15040-0 ####[facility] LABCLIA [id number] [address] [place] [address] [place] Cholesterol in HDL [Mass/Vol] 41 mg/dL Normal >39 [facility] Comment on above: Order Comment: Speci men Type: BLOOD SPECIMENOrdering Facility: [facility] Address: [address] [place] [address] Result Comment: 40-5 9 mg/dL, Acceptable >59 mg/dL, High: Negative risk factor for coronary heart disease <40 mg/dL, Low: Positive risk factor for coronary heart disease Performed By: #### 2 4331-1, ####[facility] LABCLIA [id number] [address] [address] [place] Cholesterol in LDL [Mass/Vol] 90 mg/dL Normal <100 [facility] Comment on above: Order Comment: Speci men Type: BLOOD SPECIMENOrdering Facility: [facility] Address: [address] [place] [address] Result Comment: <100 mg/dL, Optimal 100-129 mg/dL, Near optimal/above optimal 130-159 mg/dL, Borderline high 160-189 mg/dL, High >189 mg/dL, Very high Secondary prevention optimal LDL Cholesterol levels are recommended to be < 70 mg/dL Performed By: #### 2 4331-1, ####[facility] LABCLIA [id number] [address] [address] [place] Cholesterol in LDL/Cholesterol in HDL [Mass ratio] 2.20 {ratio} Normal <2.54 [facility] Comment on above: Order Comment: Speci men Type: BLOOD SPECIMENOrdering Facility: [facility] Address: [address] [place] [address] Result Comment: Refe rence: 1. National Cholesterol Education Program ATP III Guideline At-A-Glance Quick Desk Reference: National Heart, Lung, and Blood [place]. National Institutes of Health. 2001: NIH Publication No. 01-3305. 2. An International Atherosclerosis Society position paper: global recommendations for the management of dyslipidemia: executive summary, Atherosclerosis. 2014: 232(2):410-413. Performed By: #### 2 4331-1, ####[facility] LABCLIA [id number] [address] [address] [place] Cholesterol in VLDL [Mass/Vol] 21 mg/dL Normal <30 [facility] Comment on above: Order Comment: Speci men Type: BLOOD SPECIMENOrdering Facility: [facility] Address: [address] [place] [id number] Performed By: #### 2 4331-1, ####[facility] LABCLIA [id number] [id number] [address] [place] Cholesterol non HDL [Mass/Vol] 111 mg/dL Normal <130 [facility] Comment on above: Order Comment: Speci men Type: BLOOD SPECIMENOrdering Facility: [facility] Address: [address] [place] [address] Result Comment: <130 mg/dL, Optimal 130-159 mg/dL, Near optimal/above optimal 160-189 mg/dL, Borderline high 190-219 mg/dL, High >219 mg/dL, Very high Secondary prevention optimal non HDL Cholesterol levels are recommended to be <100 mg/dL Performed By: #### 2 433-, ####[facility] LABCLIA [id number] [facility]PL[facility]ITALK [address] [place] [address] [place] Cholesterol.total/Chol esterol in HDL [Mass ratio] 3.71 {ratio} Normal <5.10 [facility] Comment on above: Order Comment: Speci men Type: BLOOD SPECIMENOrdering Facility: [facility] Address: [address] [place], [place] [address] Performed By: #### 2 4331-, ####[facility] LABCLIA [id number] [address] [place] [address] [place] FASTING TIME 12 hrs Normal [facility] Comment on above: Order Comment: Speci men Type: BLOOD SPECIMENOrdering Facility: [facility] Address: [address] [place] [id number] Performed By: #### 2 4331-, ####[facility] LABCLIA [id number] [facility] [place] [address] [place] Triglyceride [Mass/Vol] 105 mg/dL Normal <150 [facility] Comment on above: Order Comment: Speci men Type: BLOOD SPECIMENOrdering Facility: [facility] Address: [address] [place] [address] Result Comment: <150 mg/dL, Normal 150-199 mg/dL, Borderline high 200-499 mg/dL, High >499 mg/dL, Very high Performed By: #### 2 4331-1, 59270-4 ####[facility] LABCLIA [id number] [place] [address] [place] Antimullerian Hormone, Serum on 07-29-2024 AMH, SERUM 2.36 ng/mL Normal . [facility] Comment on above: Result Comment: For assays employing antibodies, the possibility exists for interference by heterophile antibodies in the samples.1 1.Himanshu Quintana Interferences in Immunoassays - still a threat. Clin. Chem. 2000; 46: 1769-0820. This test was developed and its performance characteristics determined by [employer]. It has not been cleared or approved by the Food and Drug Administration. Reference Range: Females 31 - 35y: 0.66 - 8.75 Median 3.00 AMH concentrations of >= 1.06 ng/mL is correlated with a better response to ovarian stimulation, produced more retrievable oocytes and higher odds of live according to Reddyer et al. Fertility and Sterility. 2010: 94:9505-7618. The current AMH test method correlates with the study method with a slope of 0.94. Females at risk of ovarian hyperstimulation syndrome or polycystic ovarian syndrome (PCOS) may exhibit elevated serum AMH concentrations. AMH levels from PCOS patients may be 2 to 5 fold higher than age-appropriate reference interval values. Granulosa cell tumors of the ovary may secrete AMH along with other tumor markers. Elevated AMH is not specific for malignancy, and the assay should not be used exclusively to diagnose or exclude an AMH-secreting ovarian tumor. Performed at: [facility] [address] [place] [id number] [employer] Adjuster: Jasen Davila MD, Phone: [phone] Performed By: #### L 486.6912, I604.7656, L803.3000, L501.04845 ####[facility] [id number] [place], [address] Direct serum free thyroxine (FT4) measurementOrdered By: Laura Salinas on 07-24-2024 Free T4 [Mass/Vol] 1.06 ng/dL 0.76-1.46 [facility] Flecainide [Mass/Vol]Ordered By: Laura Salinas on 07-24-2024 Anti-Mullerian Hormone 2.36 ng/mL . [facility] Comment on above: For assays employing antibodies, the possibility exists forinterference by heterophile antibodies in the samples.11.Himanshu Quintana Interferences in Immunoassays - still a threat. Clin. Chem. 2000; 46: 7628-8951.This test was developed and its performance characteristicsdetermined by [employer]. It has not been cleared or approvedby the Food and Drug Administration.Reference Range:Females 31 - 35y: 0.66 - 8.75Median 3.00AMH concentrations of >= 1.06 ng/mL is correlated with abetter response to ovarian stimulation, produced moreretrievable oocytes and higher odds of live accordingto Reddyer et al. Fertility and Sterility. 2010:94:4335-5746. The current AMH test method correlates withthe study method with a slope of 0.94.Females at risk of ovarian hyperstimulation syndrome orpolycystic ovarian syndrome (PCOS) may exhibit elevatedserum AMH concentrations. AMH levels from PCOS patientsmay be 2 to 5 fold higher than age-appropriate referenceinterval values.Granulosa cell tumors of the ovary may secrete AMH alongwith other tumor markers. Elevated AMH is not specific formalignancy, and the assay should not be used exclusively todiagnose or exclude an AMH-secreting ovarian tumor.Performed at: [email or web address] [address] [id number] Director: Jasen Davila MD, Phone: [phone] Free T3on 07-24-2024 Free T3 [Mass/Vol] 2.9 pg/mL Normal 2.18-3.98 [facility] Comment on above: Performed By: #### L 506.0400, L501.9520, L803.3000, L501.29140 ####[facility] [id number] [place], [address] Free K5Wlzjvaq By: Laura weathers on 07-24-2024 Free T3 [Mass/Vol] 2.9 pg/mL 2.18-3.98 [facility] Free Triiodothyronine (T3) pg/dL 2.9 pg/mL 2.18-3.98 [facility] Serum or plasma flecainide m easurement (mass/volume)Ordered By: aLura Salinas on 07-24-2024 Flecainide [Mass/Vol] 2.36 ng/mL . [facility] Comment on above: For assays employing antibodies, the possibility exists forinterference by heterophile antibodies in the samples.11.Himanshu Quintana Interferences in Immunoassays - still a threat. Clin. Chem. 2000; 46: 4754-2628.This test was developed and its performance characteristicsdetermined by [employer]. It has not been cleared or approvedby the Food and Drug Administration.Reference Range:Females 31 - 35y: 0.66 - 8.75Median 3.00AMH concentrations of >= 1.06 ng/mL is correlated with abetter response to ovarian stimulation, produced moreretrievable oocytes and higher odds of live accordingto Ryan et al. Fertility and Sterility. 2010:94:5650-3543. The current AMH test method correlates withthe study method with a slope of 0.94.Females at risk of ovarian hyperstimulation syndrome orpolycystic ovarian syndrome (PCOS) may exhibit elevatedserum AMH concentrations. AMH levels from PCOS patientsmay be 2 to 5 fold higher than age-appropriate referenceinterval values.Granulosa cell tumors of the ovary may secrete AMH alongwith other tumor markers. Elevated AMH is not specific formalignancy, and the assay should not be used exclusively todiagnose or exclude an AMH-secreting ovarian tumor.Performed at: [email or web address] [address] [id number] Director: Jasen Davila MD, Phone: [phone] Serum or plasma thyroid stim ulating hormone (TSH) measurement (units/volume)Ordered By: Laura Salinas on 07-24-2024 TSH Qn 1.170 uIU/mL 0.358-3.740 [facility] T4 Free Directon 07-24-2024 T4 FREE DIRECT 1.06 ng/dL Normal 0.76-1.46 [facility] Comment on above: Performed By: #### L 506.0400, L501.9520, L803.3000, L501.19415 ####[facility] [id number] [place], [place], [address] TSH QnOrdered By: Laura hou on 07-24-2024 Thyroid Stimulating Hormone (TSH) 1.170 uIU/mL 0.358-3.740 [facility] Thyroid Stim Hormone (TSH)on 07-24-2024 TSH 1.170 uIU/mL Normal 0.358-3.740 [facility] Comment on above: Performed By: #### L 506.0400, L501.9520, L803.3000, L501.79853 ####[facility] [id number] [facility], [address] Genital Culture Comprehensiv tiara 06-11-2024 VAC Reason for Exam: Vaginal discharge Normal vaginal kenny isolated. No yeast, Gardnerella, Neisseria or beta-hemolytic Streptococcus isolated. Normal [facility] Comment on above: Performed By: #### M 100.2000, M100.3200 ####[facility] [id number] [facility] [address] [place], [place], [address] CNOVon 06-10-2024 CNOV Office Visit (FAMPWS ) QUE SANCHEZ ([id number]) 1990 [facility] Date Time Provider Department 1/6/25 7:00 PM DAVIDE CHAO FAMPWS During your visit today, we recorded the following information about you: Pulse Respiration Blood pressure Weight 78/minute 16/minute 110/74 81.1 kg Davide Chao MD 06/10/2024 7:53 PM Signed Chief Complaint Patient presents with: Blood Pressure Anxiety HPI Que Escobar is a 34 year old female who presents here today for blood pressure. Pt here with concerns about her blood pressure and anxiety. Anxiety: Chronic. Currently taking Ativan 1 mg 1 tab po every 12 hours prn. At last visit her Lexapro was decreased from 20 mg to 10 mg due to depersonalization, felt like she was in a movie. She states that she weaned herself off the lexapro a few months ago and is doing well without it as far as her moods, however the last few weeks she has been having panic attacks again. Has not had them in years. Has Ativan to use which helps but she can't work when she takes it. No sure what has triggered the panic attacks to start again. She states that she was driving and had a really bad attack so had to test puller to the side off road for about 30 minutes till it passed, hasn't had a panic attack while driving for a long time prior to that episode. Was previously working with two separate Counselors. Has been tried on several SSRI medications for depression, but were unable to take due to causing suicidal thoughts. She can not focus on more than one thing at a time, feels that someone can be talking to her but she doesn't hear them, is not focused. Stated this all seemed to have started after the stress and trauma she went through a year ago. She states she has hx of ADHD but never had issues like this with it. She prefers to be off medications, is not happy that she has had to start taking the Ativan again. States that there are times when the Ativan can calm her down and she can function and then other times she can take it and feels high off her ass. She has a lot of stress with her job. She states she feels broken. She states she doesn't mean to cry, states I am not sad it just sucks. Has a licensed counselor and works with her stock sorter which she feels the stock sorter is more helpful. Follows with Cardiology due to hx of arrhythmia, has taken Metoprolol 25 mg daily. No refills lately. She has talked to her operational intelligence analyst about this but has not wanted to treat her with medications as her BP has not been consistently elevated. She stated she has had readings as high as 155/120 and that the BP typically goes up in the evenings. States she doesn't get any chest pains, dizziness, or SOB but she gets pressure in her face and head and then tingling sensation down her body. Has been on Propranolol and Metoprolol in the past. The metoprolol wasn't helping so she stopped taking it. Is using Protonix but is still choking on her food at times and then vomiting. Was told at 21 years old that she needed to have her esophagus stretched but was too afraid to have that completed. Feels she needs to be referred back to Gastro. Has been trying to lose weight, is down 13 lbs. Past medical history, appointments, medications, allergies reviewed. Previous Medical History PAST MEDICAL HISTORY Diagnosis Date Anemia Anxiety Arrhythmia Bipolar affect, depressed (HCC) Chlamydia 05/2009 DJD (degenerative joint disease) GERD (gastroesophageal reflux disease) 09/18/2015 Herpes simplex virus (HSV) infection HGSIL (high grade squamous intraepithelial lesion) on Pap smear of cervix 2015 History of Helicobacter pylori infection 09/18/2015 IBS (irritable bowel syndrome) 2018 Interstitial cystitis 2018 MVP (mitral valve prolapse) Orthostatic hypotension 09/18/2015 Palpitations Paroxysmal supraventricular tachycardia (HCC) 09/18/2015 depression PVC (premature ventricular contraction) 09/18/2015 Seizure (HCC) Seizures (HCC) Syncope Previous Surgical History PAST SURGICAL HISTORY Procedure Laterality Date COLONOSCOPY FLX DX W/COLLJ SPEC WHEN PFRMD 11/21/2013 Colonoscopy AND EGD COLONOSCOPY FLX DX W/COLLJ SPEC WHEN PFRMD 07/20/2017 Colonoscopy CYSTOSCOPY jul 2018 DANDC, DIAG AND/OR THERAPEUTIC N/A 10/03/2023 ESOPHAGOGASTRODUODENOSC OPY TRANSORAL DIAGNOSTIC 07/20/2017 EGD ESOPHAGOGASTRODUODENOSC OPY TRANSORAL DIAGNOSTIC 08/08/2018 EGD LAPAROSCOPY SURG CHOLECYSTECTOMY 09/14/2009 LEEP PROCEDURE (PRINT FINISHER DEPT)_*FL 09/09/2015 SVT ABLATION 05/2015 procedure was incomplete and did not work per patient- records requested Family History FAMILY HISTORY Problem Relation Age of Onset Psychiatry Mother Depression Thyroid Mother No Known Problems Father No Known Problems Sister No Known Problems Sister Seizures Sister Multiple Sclerosis Sister (more content not included)... Normal [facility] Genital cultureOrdered By: Omer Castillo on 06-10-2024 Genital Culture Neisseria or beta-hemolytic Streptococcus isolated. [facility] Gram Stainon 06-10-2024 GS Reason for Exam: Vaginal discharge Gram Stain 3+ White Blood Cells 4+ Gram positive rods No Gram negative diplococci Score = 0 Interpretation: 0-3 Normal, 4-6 Intermediate, 7-10 Positive BV Normal [facility] Comment on above: Performed By: #### M 100.2000, M100.3200 #### [facility] [address] [place], [address] Gram stainOrdered By: Love Castillo on 06-10-2024 Microscopic observation Gram stain Nom (Unsp spec) [facility] No Panel Informationon 06-10 POC Bacterial Vaginitis (Rapid) Negative [facility] Damaged Freight Inspector Office Visit Reporton 06-10-2024 Damaged Freight Inspector Office Visit Report [facility] [address], [address] [place] [address] OFFICE VISIT Date of Service: 06/10/24 MR#: [id number] Acct: [id number] Name: QUE SANCHEZ Rep #: [id number] : 1990 Provider: MALENA samuels Age/Sex: 34/F Location[place] [facility] [place] Status: Signed Intake Vital Signs 04/19/24 13:51 06/10/24 13:57 06/10/24 14:04 Height 5 ft 6 in 5 ft 6 in 5 ft 6 in Weight: 183 lb 6 oz 176 lb 6 oz BMI 29.5 28.4 BP 118/80 112/74 Intake Visit Reasons: vaginal odor/cyst Chief Complaint: Vaginal odor/cyst Ammonium Nitrate Crystallizer Required: No Is patient in pain?: No Allergies metronidazole (From Flagyl) Allergy (Verified 06/10/24 13:56) Upset Stomach Phenylpiperazine Antidepressant Adverse Reaction (Verified 06/10/24 13:56) suicidal ideation Tetracyclic Antidepressants Adverse Reaction (Verified 06/10/24 13:56) suicidal ideation Tricyclic Antidepressants and Tricy Adverse Reaction (Verified 06/10/24 13:56) suicidal ideation Medications ???Medication ???Instructions ???Recorded ???Confirmed ???Type escitalopram oxalate 20 mg tablet 20 mg PO DAILY depression 09/28/22 06/10/24 History (Lexapro) lorazepam 1 mg tablet (Ativan) 1 mg PO BID PRN anxiety 06/28/23 06/10/24 History metoprolol tartrate 25 mg tablet 25 mg PO DAILY 06/28/23 06/10/24 History valacyclovir 500 mg tablet 500 mg PO DAILY 06/28/23 06/10/24 History (Valtrex) Lactobacillus acidophilus 10 100 mmu cells PO DAILY 09/21/23 06/10/24 History billion cell capsule (Probiotic) gabapentin 300 mg capsule 300 mg PO TID 09/21/23 06/10/24 History phenazopyridine 95 mg tablet 190 mg PO DAILY 09/21/23 06/10/24 History Is last menstrual period known: Yes Last Menstrual Period: 05/25/24 Post menopausal: No Patient : No : No PFSH Medical History Multiple personality disorder History of Clostridium difficile infection Alcohol use Arthritis Injury of back Injury of head and neck Seizures TIA (transient ischemic attack) Eosinophilic esophagitis Difficulty swallowing History of ulceration History of IBS Electronic cigarette use History of echocardiogram History of stress test Tilt table evaluation Cardiology follow-up encounter Chest pain History of irregular heartbeat History of atrial fibrillation Tachycardia Abnormality of urination Abdominal pain affecting , antepartum 24 weeks gestation of Fungal toenail infection Surgical History S/P dilation and curettage ( 10/03/23) Status post hysteroscopy History of cardiac radiofrequency ablation History of esophagogastroduodenosc opy (EGD) History of colonoscopy History of loop electrical excision procedure (LEEP) Status post tubal ligation History of surgery Sterilization Hx of cholecystectomy Social History household members: children Smoking Status: Current every day smoker tobacco type: e-cigarettes alcohol intake: never substance use type: does not use caffeine: Yes what type of physical activity do you participate in: none seatbelt use: always do you feel safe at home: Yes HPI vaginal odor/cyst Details: QUE SANCHEZ is a 34 year old who presents for vaginal odor that has persisted since visit in April when she had BV and was treated with flagyl and then clindamycin cream. She had STD theo ting at that time, negative and has not been sexually active since that visit. She also has a lump in vaginal area that actually drained and is now smaller. She and are planning to go to [place] so she can have a tubal reversal. Female Reproductive History Last Menstrual Period: 05/25/24 History 6 Elective abortions Hx Para 5 Spontaneous abortions Hx # Term Pregnancies Ectopic pregnancies Hx # Pregnancies Multiple births # of living children Past Pregnancies Del. Date Name GA/Weeks Outcome Route Bth Weight Gen Labor Lgth Anesthesia Del Locatn Provider FOB 02/23/08 Radha 42 live - full term 7lbs 2oz Female [address] [facility] [address] Emilia Jung 09/07/10 Bridget 39 live - full term 7lbs 4oz Female 46 hours [facility] Satya 07/12/12 Pj 38 live - full term 7lbs 6oz Male 4 hours [facility] intosh Wang 07/15/16 Missy 37 live - full term 7lbs 8oz Male 12 hours [facility] Reny Jurado 10/12/21 Lottie 40 live - full term 8lbs 2oz Male Christina Rueda Will 03/10/24 Von live - full term Male SM Delivery Date: 02/23/08 Last Updated by: Tameka Jacobo Katiuska Cord wrapped around neck twice and around body once. Born not breath (more content not included)... Normal [facility] Chlamydia/GC MAYTE aptimaon CHLAMY,NUC ACID Negative Normal Negative [facility] Comment on above: Performed By: #### M 100.3200, L7000.1800, M100.2000 #### [facility] [address] [place], [address] GC BY NUC ACID Negative Normal Negative [facility] Comment on above: Result Comment: Perf ormed at: =G - [facility] [address] [place] [place] [id number] [employer] Machine Adjuster: Rita Vallecillo MD, Phone: [phone] Performed By: #### M 100.3200, L7000.1800, .1999 #### [facility]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 Comment on above: Result Comment: MARCI T D-DIMER Performed By: #### 2 [id number] ####[address] [address] ED FACILITY CODING SUMMARYon 03-22-2024 ED FACILITY CODING SUMMARY Facility Coding Facility Coding Summary [address] [address] [phone] 03/22/2024 Patient: QUE SANCHEZ Sex: Female : 1990 Age: 33y Providers: Antonette Mendez D.O. DIAGNOSTIC WORKUP Chief Complaint CHEST PAIN. -- Antonette Mendez D.O. Principal Diagnosis Chest pain characterized as discomfort and pressure. -- Antonette Mendez D.O. ICD-10 Codes R07.89: Other chest pain PROCEDURES Procedures from Providers: EKG (Insufficient documentation to return CPT code.) -- Antonette Mendez D.O. Procedures from Nurses/Facility: EKG (CPT: 57717) [facility] 45266-83 1 of 2 Facility Coding This is a partial abstract of information documented in the full record. Bilingual Speech Therapist must use independent judgment in selecting codes. CPT copyright 2022 [employer]. All Rights Reserved. 2 of 2 Normal [facility] ED MED ADMINISTRATION DETAIL on 03-22-2024 ED MED ADMINISTRATION DETAIL Quality Assurance Coordinator Medication Administration Record [facility] [address] [place] [address] [id number] 03/22/2024 Patient: QUE SANCHEZ Sex: Female : 1990 Age: 33y MEASUREMENTS: Wt: 81.6 kg ALLERGIES: No known drug allergies Medication Ordered Medication Administration Date/Time 1 of 1 Normal [facility] ED NURSES CLINICAL NOTEon ED NURSES CLINICAL NOTE Nurse Narrative Nurse Clinical Narrative [facility] [address] [place] [address] [id number] 03/22/2024 Patient: QUE SANCHEZ Sex: Female : 1990 Age: 33y Disposition: Left AMA Left Against Medical Advice Disposition Decision Time: 14:18 03/22/2024 Departure Time: 14:18 03/22/2024 TRIAGE ( Started 1.5 hours ago with dizziness.). Triage time: 11:49 03/22/2024. Acuity: LEVEL 3. Chief Complaint: CHEST PAIN. This started today. Reports experiencing sweating episodes. The patient has had nausea. SEPSIS SCREEN: NEGATIVE. SIRS criteria negative. No possible sources of infection. -- 11:54 03/22/24 EDT Romero Reyes R.N. 11:53 03/22/24. BP: 128/74 MAP: 92. HR: 78. RR: 16. O2 saturation: 99% Temperature: 98 F. Pain level now 510. -- 11:53 03/22/24 EDT Romero Reyes R.N. Measurements: 11:54 03/22/24 Wt: 81.6 kg -- 11:54 03/22/24 EDT Romero Reyes R.N. Medications: no known home medications -- 11:51 03/22/24 VETO Reyes R.N. Allergies: 1 of 3 Nurse Narrative no known drug allergies -- 11:51 03/22/24 CARLOST Romero Reyes R.N. Problems: Anxiety disorder -- 11:55 03/22/24 CARLOST Romero Reyes R.N. ADDITIONAL SURGERIES: Cholecystectomy -- 11:51 03/22/24 VETO Reyes R.N. History 11:49 03/22/24. SOCIAL HX: Heavy vaping. No alcohol use or drug use. ABUSE ASSESSMENT: The patient answered yes to the question(s) Do you feel safe in your home? and no to the question(s) Are you afraid to go home?. SELF HARM ASSESSMENT: Self harm assessment was performed. The patient answered no to the question(s) Have you recently felt down, depressed, or hopeless? and Do you have thoughts of harming or killing yourself?. FALL RISK ASSESSMENT: Fall risk assessment completed. No risk factors identified. -- 11:54 03/22/24 VETO Reyes R.N. 11:55 03/22/24. SOCIAL HX: The patient has not traveled outside the [place] Infectious disease exposure: No infectious disease exposure. -- 11:55 03/22/24 VETO Reyes R.N. PHYSICAL ASSESSMENT 11:57 03/22/24. ( Patient complains of a 1.5 hour hx of midsternal chest pain accompanied with dizziness, nausea, and diaphoresis.). GENERAL / NEURO / PSYCH: Alert. Oriented X 4. Appears in no acute distress. HEENT: Mucous membranes are pink. RESPIRATORY: Respirations not labored. Chest nontender. Breath sounds within normal limits. CVS: Normal sinus rhythm noted. Heart sounds within normal limits. Pulses within normal limits. Capillary refill less than 2 seconds. GI / : Abdomen soft and nontender. 2 of 3 Nurse Narrative EXTREMITIES: No lower extremity edema. SKIN: Skin is warm and dry. Normal skin turgor. Skin is non-tender. -- 11:57 03/22/24 VETO Reyes R.N. NURSING PROGRESS NOTES 11:58 03/22/24. 12-LEAD EKG: EKG time: (11:28 03/22/2024). 12-Lead EKG was performed by a animal husbandry technician and shown to the ED physician. -- 11:58 03/22/24 EDT Romero Reyes R.N. 12:16 03/22/24. Site #1 started via IV with an 18g angiocath; 1 attempt. Blood drawn: rainbow set tube(s). Saline lock flushed with 5 mL saline. -- 12:16 03/22/24 EDT Romero Reyes R.N. DISPOSITION / DISCHARGE 14:17 03/22/24. Condition at departure: unchanged. ( Patient D/C her IV and elopes at this time). The patient left prior to discharge education being provided. -- 14:17 03/22/24 EDT Romero Reyes R.N. Departure time: 14:18 03/22/2024. -- 14:18 03/22/24 EDT Romero Reyes R.N. 14:18 03/22/24. Site #1 removed. -- 14:18 03/22/24 EDT Romero Reyes R.N. (Electronically signed by Romero Reyes R.N. 03/22/24 14:19:22 EDT) Generated by [facility] 3 of 3 Normal [facility] ED ORDER SHEET (CPOE ONLY)on 03-22-2024 ED ORDER SHEET (CPOE ONLY) Order Sheet Order Sheet [address] [place] [address] [id number] 03/22/2024 Patient: QUE SANCHEZ Sex: Female : 1990 Age: 33y MEASUREMENTS: Wt: 81.6 kg ALLERGIES: No known drug allergies MEDICATION/IV/DRIP/FLUI D ORDERS Order Description Priority Entered Acknowledged Completed LAB ORDERS Order Description Priority Entered Acknowledged Collected Completed CBC w Diff Stat Stat 12:03/22/2024 12:10 03/22/2024 Romero Pena D.O. R.N. CMP Stat Stat 12:03/22/2024 12:10 03/22/2024 Romero Pena D.O. R.N. Troponin-I (Sched: q3h Stat 12:05 03/22/2024 12:10 03/22/2024 X2); Stat 1 of 2 Romero Pena D.O. R.N. Troponin-I (Sched: q3h Stat 12:05 03/22/2024 X2); Stat 2 of 2 Antonette Mendez, 1 of 3 Order Sheet Reny.Celia D-Dimer Stat Stat 12:05 03/22/2024 12:10 03/22/2024 Romero Pena D.O. R.N. EKG - ED Stat Stat 12:05 03/22/2024 12:10 03/22/2024 12:16 03/22/2024 Romero Pena Cortnee Amos D.O. R.N. Urinalysis Stat Stat 12:24 03/22/2024 Antonette Mendez D.O. DIAGNOSTIC STUDY ORDERS Order Description Priority Entered Acknowledged Completed STAFF ORDERS Order Description Priority Entered Acknowledged Collected Completed IV Saline Lock 12:05 03/22/2024 12:10 03/22/2024 Romero Pena D.O. R.N. Obtain Old EKG 12:05 03/22/2024 12:10 03/22/2024 Romero Pena D.O. R.N. Office Clinician 12:05 03/22/2024 12:10 03/22/2024 Romero Pena D.O. R.N. 2 of 3 Order Sheet Vital signs every 15 12:05 03/22/2024 12:10 03/22/2024 minutes Romero Pena D.O. R.N. [Electronically signed by Antonette Mendez D.O. (03/22/2024 16:18 EDT)] 3 of 3 Normal [facility] ED PHYS CODING ABST SUMMARYo n 03-22-2024 ED PHYS CODING ABST SUMMARY Coding Summary Coding Summary [address] [place] [address] [id number] 03/22/2024 Patient: QUE SANCHEZ Sex: Female : 1990 Age: 33y ICD-10 Codes R07.89: Other chest pain CPT Codes EKG (Insufficient documentation to return CPT code.) This is a partial abstract of information documented in the full record. Bilingual Speech Therapist must use independent judgment in selecting codes. CPT copyright 2022 [employer]. All Rights Reserved. 1 of 1 Normal [facility] ED PHYSICIAN CLINICAL REPORT on 03-22-2024 ED PHYSICIAN CLINICAL REPORT Narrative Physician Clinical Narrative [facility] [address] [place] [address] [id number] 03/22/2024 Patient: QUE SANCHEZ Sex: Female : 1990 Age: 33y Disposition: Left AMA Left Against Medical Advice Disposition Decision Time: 14:18 03/22/2024 Departure Time: 14:18 03/22/2024 Measurements Wt: 81.6 kg Initial Vital Sign Measured Time BP MAP HR RR O2Sat ETCO2 Temp Pain GCS RTS 11:53 03/22/2024 128/74 92 78 16 99% 98.0 F 5 Time Seen: 11:33 03/22/2024. Arrived- By private vehicle. Historian- patient. HISTORY OF PRESENT ILLNESS Chief Complaint: CHEST PAIN. This started just prior to arrival patient chest discomfort started at 10:00 a.m. this morning while she was sitting doing work. They last for about 20 minutes she got lightheaded and kind of dissipated then she had again it went upper back into her shoulders into her jaw she had nausea she had no vomiting and the pain was very severe. She has had a history of AFib with ablation. She occasionally has hypertension but she is not on medication. She said she was diagnosed hypertension after her childbirth approximately a year ago. The patient has had difficulty breathing and nausea and has experienced diaphoresis. REVIEW OF SYSTEMS ENDO/HEME/LYMPH: No enlarged lymph nodes. NEUROLOGICAL: No fainting episodes. RESPIRATORY: No cough. CONSTITUTIONAL: No fever or chills. SKIN: No skin rash. 1 of 10 Narrative PAST HISTORY Anxiety disorder Surgeries: Cholecystectomy Medications: no known home medications Allergies: no known drug allergies SOCIAL HISTORY Current every day smoker. No alcohol use. ADDITIONAL NOTES The nursing notes have been reviewed. PHYSICAL EXAM Appearance: Alert. Oriented X3. No acute distress. Eyes: Eyes normal inspection. ENT: Ears normal. Nose normal. CVS: Normal heart rate and rhythm. Heart sounds normal. Respiratory: No respiratory distress. Breath sounds normal. Chest nontender. Abdomen: Soft and nontender. No mass. Skin: Skin warm and dry. Normal skin color. Normal skin turgor. Extremities: Extremities exhibit normal ROM. Neuro: Oriented X 3. No motor deficit. No sensory deficit. LABS, X-RAYS, AND EKG 12-LEAD EKG: EKG time: 11:30 03/22/2024. No acute process. No acute ischemia. Normal EKG. Normal sinus rhythm. Rate: 97. Interpretation time: 11:35 03/22/2024. 2 of 10 Narrative Laboratory Tests: CBC + DIFF Final LINDA: 03/22/2024 12:14:00 EDT MsgRcvd: 03/22/2024 12:33 EDT Lab Test Result Reference Status Received Comments 03/22/2024 12:33 CBC-COMPLETE CBC + DIFF Final EDT BLOOD COUNT 03/22/2024 12:33 WBC 8.0 x 10/UL 4.5 - 10.8 Final EDT 03/22/2024 12:33 RBC 4.91 x 10/UL 4.10 - 5.30 Final EDT 03/22/2024 12:33 HEMOGLOBIN 14.3 g/dl 12.0 - 16.0 Final EDT 03/22/2024 12:33 HEMATOCRIT 43.5 % 34.0 - 46.0 Final EDT 03/22/2024 12:33 MCV 89 fl 80 - 99 Final EDT 03/22/2024 12:33 MCH 29 pg 27 - 33 Final EDT 03/22/2024 12:33 MCHC 33 X10 3 32 - 36 Final EDT 03/22/2024 12:33 RDW/CV 13.9 % 12.0 - 15.6 Final EDT 03/22/2024 12:33 PLATELET 281 x10/UL 150 - 450 Final EDT 03/22/2024 12:33 AUTOMATED MPV 7.8 fl 6.6 - 10.5 Final EDT DIFFERENTIAL 3 of 10 Narrative 03/22/2024 12:33 NEUT % 66.5 % 46.0 - 76.0 Final EDT 03/22/2024 12:33 LYMPH % 23.0 % 20.0 - 45.0 Final EDT 03/22/2024 12:33 MONOS % 6.9 % 0.0 - 10.0 Final EDT 03/22/2024 12:33 EO % 3.4 % 0.0 - 7.0 Final EDT 03/22/2024 12:33 BASO % 0.3 % 0.0 - 2.0 Final EDT 03/22/2024 12:33 Lymph # 1.83 x10/UL 0.80 - 2.80 Final EDT 03/22/2024 12:33 Neut # 5.29 x10/UL 1.50 - 7.10 Final EDT 03/22/2024 12:33 [place] # 0.55 x10/UL 0.20 - 1.00 Final EDT 03/22/2024 12:33 EO # 0.27 x10/UL 0.00 - 0.50 Final EDT 03/22/2024 12:33 Baso # 0.02 x10/UL 0.00 - 0.10 Final EDT 03/22/2024 12:33 MANUAL DIFF N/A New Order EDT 03/22/2024 12:33 MORPHOLOGY N/A New Order EDT CMP with eGFR Final LINDA: 03/22/2024 12:14:00 EDT MsgRcvd: 03/22/2024 12:54 EDT Lab Test Result Reference Status Received Comments 4 of 10 Narrative COMPREHENSIVE 03/22/2024 CMP with eGFR Final METABOLIC 12:54 EDT PANEL 03/22/2024 SODIUM 139 mmol/l 136 - 145 Final 12:54 EDT 03/22/2024 POTASSIUM 4.0 mmol/L 3.5 - 5.1 Final 12:54 EDT 03/22/2024 CHLORIDE 105 mmol/L 98 - 107 Final 12:54 EDT 03/22/2024 CO2 24.3 mmol/L 21.0 - 32.0 Final 12:54 EDT 03/22/2024 GLUCOSE 87 mg/dl 74 - 106 Final 12:54 EDT 03/22/2024 BUN 15 mg/dl 7 - 18 Final 12:54 EDT 03/22/2024 CREATININE 0.87 mg/dl 0.55 - 1.02 Final 12:54 EDT 03/22/2024 AST/SGOT 18 U/L 13 - 39 Final 12:54 EDT 03/22/2024 ALK PHOS 104 U/L 46 - 116 Final 12:54 EDT 03/22/2024 CALCIUM (more content not included)... Normal [facility] ED SUPER BILLon 03-22-2024 ED SUPER BILL [facility] [address] [place] [address] [id number] 03/22/2024 Patient: QUE SANCHEZ Sex: Female : 1990 Age: 33y Item Professional Category Description Facility Code Code Quantity Fee Total Nurse/E/M EMERGENCY [id number] 1 $0.00 $0.00 DEPARTMENT VISIT MODERATE SEVERITY (78663-54) Grand Total $0.00 Providers Antonette Mendez D.O. Chief Complaint CHEST PAIN. Principal Diagnosis Chest pain characterized as discomfort and pressure. ICD-10 Codes 1 of 2 [facility] R07.89: Other chest pain 2 of 2 Normal [facility] ED VISIT SUMMARYon ED VISIT SUMMARY Visit Overview Visit Overview [facility] [address] [facility] [place] [address] [id number] 03/22/2024 Patient: QUE SANCHEZ Sex: Female : 1990 Age: 33y 03/22/2024 04:19 PM EDT ED Arrival:11:32 03/22/2024 EDT Status: Recent Travel:no Language:eng Adv Directive: Isolation Status: Ethnicity:N Fall Risk:no risk Infectious Disease Exposure:no Measurements:180.0 lb / 81.6 kg Self-Harm Status:risk Sepsis Screen:negative Chief Complaint:CHEST PAIN and (Started 1.5 hours ago with dizziness. ) ALLERGIES No Known Drug Allergies HOME MEDICATIONS None PAST MEDICAL HISTORY / PROBLEMS Anxiety disorder PAST SURGICAL HISTORY 1 of 3 Visit Overview Cholecystectomy SOCIAL HISTORY Smoking status: Unknown Alcohol use: No Drug use: No ED COURSE MEDICATIONS GIVEN IN EMERGENCY DEPARTMENT IV SITE INFORMATION INTAKE OUTPUT REASSESMENT (most recent) 11:57 03/22/24. ( Patient complains of a 1.5 hour hx of midsternal chest pain accompanied with dizziness, nausea, and diaphoresis.). GENERAL / NEURO / PSYCH: Alert. Oriented X 4. Appears in no acute distress. HEENT: Mucous membranes are pink. RESPIRATORY: Respirations not labored. Chest nontender. Breath sounds within normal limits. CVS: Normal sinus rhythm noted. Heart sounds within normal limits. Pulses within normal limits. Capillary refill less than 2 seconds. GI / : Abdomen soft and nontender. EXTREMITIES: No lower extremity edema. SKIN: Skin is warm and dry. Normal skin turgor. Skin is non-tender. VITAL SIGNS First Vitals Last Vitals Temp 11:53 03/22/24 98.0 F Temp 11:53 03/22/24 98.0 F BP 11:53 03/22/24 128/74 BP 11:53 03/22/24 128/74 HR 11:53 03/22/24 78 HR 11:53 03/22/24 78 RR 11:53 03/22/24 16 RR 11:53 03/22/24 16 O2 Sat 11:53 03/22/24 99% O2 Sat 11:53 03/22/24 99% Pain 11:53 03/22/24 5 Pain 11:53 03/22/24 5 ETCO2 11:53 03/22/24 ETCO2 11:53 03/22/24 GCS 11:53 03/22/24 GCS 11:53 03/22/24 2 of 3 Visit Overview First Vitals Last Vitals RTS 11:53 03/22/24 RTS 11:53 03/22/24 PROCEDURES NURSING INTERVENTIONS LABS / STUDIES LABS / STUDIES ORDERED CBC w Diff CMP D-Dimer EKG - ED Troponin-I Troponin-I Urinalysis CLINICAL IMPRESSION CHEST PAIN CHARACTERIZED DISCOMFORT AND PRESSURE 3 of 3 Normal [facility] LABORATORYOrdered By: Christopher Roberts on 03-22-2024 Appearance (U) Clear (03/22/24 3:04 PM) Normal Clear AO Auto Urine SS Bilirubin Ql (U) Negative (03/22/24 3:04 PM) Normal Negative AO Auto Urine SS Color (U) Yellow (03/22/24 3:04 PM) Normal AO Auto Urine SS Glucose Test strip (U) [Mass/Vol] Negative Normal Negative AO Auto Urine SS Hemoglobin Auto test strip (U) [Mass/Vol] Negative (03/22/24 3:04 PM) Normal Negative AO Auto Urine SS Ketones Ql (U) Trace mg/dL Invalid Interpretation Code Negative AO Auto Urine SS UA Leuk Est Negative (03/22/24 3:04 PM) Normal Negative AO Auto Urine SS UA Nitrite Negative (03/22/24 3:04 PM) Normal Negative AO Auto Urine SS UA pH 7.0 (03/22/24 3:04 PM) Normal 5.0 - 8.0 AO Auto Urine SS UA Protein Negative Normal Negative AO Auto Urine SS UA Spec Grav 1.020 (03/22/24 3:04 PM) Normal 1.015-1.025 AO Auto Urine SS UA Specimen Type Clean Catch (03/22/24 3:04 PM) Normal AO Auto Urine SS UA Urobilinogen 0.2 E.U./dL Normal 0.2-1.0 AO Auto Urine SS LABORATORYOrdered By: SYSTEM SYSTEM on 03-22-2024 Basophils (Bld) [#/Vol] 0.0 103/mcL Normal 0.0 - 0.2 10^3/mcL AO Workflow SS Basophils/100 WBC (Bld) 0.4 % Normal 0.0 - 2.5 % AO Workflow SS Calcium [Mass/Vol] 8.9 mg/dL Normal 8.4 - 10. 2 mg/dL AO ADM SS Chloride [Moles/Vol] 103 mmol/L Normal 98 - 10 7 mmol/L AO ADM SS CO2 [Moles/Vol] 25 mmol/L Normal 22 - 29 mmol/L AO ADM SS Creatinine [Mass/Vol] 0.82 mg/dL Normal 0.55 - 1.02 mg/dL AO ADM SS Comment on above: Interpretive Data: T esting performed on Siemens Dimension EXL analyzer using a modified kinetic Tyrell technique. Electrolyte Balance 10.0 mEq/L Normal 4.0 - 15 .0 mEq/L AO ADM SS Eosinophil, Absolute 0.2 103/mcL Normal 0.0 - 0 .7 10^3/mcL AO Workflow SS Eosinophils/100 WBC (Bld) 2.7 % Normal 0.0 - 7.0 % AO Workflow SS Erythrocyte distribution width (RBC) [Ratio] 13.8 % Normal 11.5 - 15.5 % AO Workflow SS GFR/1.73 sq M.predicted among blacks MDRD (S/P/Bld) [Vol rate/Area] 97 ml/min/1.73sqm Invalid Interpretation Code AO Chemistry S Comment on above: Interpretive Data: GFR Population mean for , Non- Americans Ages 20-29 = 116 mL/min/1.73 sq.m. Ages 30-39 = 107 mL/min/1.73 sq.m. Ages 40-49 = 99 mL/min/1.73 sq.m. Ages 50-59 = 93 mL/min/1.73 sq.m. Ages 60-69 = 85 mL/min/1.73 sq.m. Ages 70+ = 75 mL/min/1.73 sq.m. Chronic Kidney Disease: Less than 60 mL/min/1.73 square meters End Stage Renal Disease: Less than 15 mL/min/1.73 square meters GFR/1.73 sq M.predicted among non-blacks MDRD (S/P/Bld) [Vol rate/Area] 80 ml/min/1.73sqm Invalid Interpretation Code AO Chemistry S Comment on above: Interpretive Data: GFR Population mean for , Non- Americans Ages 20-29 = 116 mL/min/1.73 sq.m. Ages 30-39 = 107 mL/min/1.73 sq.m. Ages 40-49 = 99 mL/min/1.73 sq.m. Ages 50-59 = 93 mL/min/1.73 sq.m. Ages 60-69 = 85 mL/min/1.73 sq.m. Ages 70+ = 75 mL/min/1.73 sq.m. Chronic Kidney Disease: Less than 60 mL/min/1.73 square meters End Stage Renal Disease: Less than 15 mL/min/1.73 square meters Glucose [Mass/Vol] 88 mg/dL Normal 70 - 105 mg/dL AO ADM SS Hematocrit (Bld) [Volume fraction] 40.0 % Normal 34.0 - 46.0 % AO Workflow SS Hemoglobin (Bld) [Mass/Vol] 14.0 G/dL Normal 12.0 - 16.0 G/dL AO Workflow SS Lymphocytes (Bld) [#/Vol] 2.2 103/mcL Normal 0.9 - 4.3 10^3/mcL AO Workflow SS Lymphocytes/100 WBC (Bld) 29.5 % Normal 20.0 - 40.0 % AO Workflow SS MCH (RBC) [Entitic mass] 30.7 pg Normal 27.0 - 33.0 pg AO Workflow SS MCHC 35.0 G/dL Normal 32.0 - 36.0 G/dL AO Workflow SS MCV (RBC) [Entitic vol] 87.6 fL Normal 80.0 - 99.0 fL AO Workflow SS Monocyte distribution width Auto (Bld) [Entitic vol] 18.30 1 Normal 0.00 - 20.00 AO Workflow SS Comment on above: Result Comment: For ED adult patients suspected of sepsis, MDW<=20.0 does not rule out sepsis or risk of sepsis Monocytes (Bld) [#/Vol] 0.5 103/mcL Normal 0.1 - 1.4 10^3/mcL AO Workflow SS Monocytes/100 WBC (Bld) 7.4 % Normal 2.0 - 13.0 % AO Workflow SS Neutrophils (Bld) [#/Vol] 4.5 103/mcL Normal 2.3 - 8.1 10^3/mcL AO Workflow SS Neutrophils/100 WBC (Bld) 60.0 % Normal 50.0 - 75.0 % AO Workflow SS Platelet mean volume (Bld) [Entitic vol] 7.8 fL Normal 6.6 - 10.5 fL AO Workflow SS Platelets (Bld) [#/Vol] 257 103/mcL Normal 150 - 450 10^3/mcL AO Workflow SS Potassium [Moles/Vol] 3.6 mmol/L Normal 3.5 - 5.1 mmol/L AO ADM SS RBC (Bld) [#/Vol] 4.56 106/mcL Normal 4.10 - 5.3 0 10^6/mcL AO Workflow SS Sodium [Moles/Vol] 138 mmol/L Normal 136 - 145 mmol/L AO ADM SS Troponin I.cardiac DL <= 0.01 ng/mL [Mass/Vol] 4 ng/L Normal 0 - 51 ng/L AO ADM SS Comment on above: Interpretive Data: H igh Sensitive Troponin I Reference Ranges: Female: 0-51 ng/L Male: 0-76 ng/L Testing performed on [employer] using a homogeneous sandwich chemiluminescent immunoassay based on LiveProfile technology. Urea nitrogen [Mass/Vol] 12 mg/dL Normal 7 - 18 mg/dL AO ADM SS Urea nitrogen/Creatinine [Mass ratio] 15 ratio Normal 7 - 27 ratio AO ADM SS WBC (Bld) [#/Vol] 7.4 103/mcL Normal 4.5 - 10.8 10^3/mcL AO Workflow SS LABORATORYOrdered By: Jaya Dewitt on 03-22-2024 Platelets LM Ql (Bld) Normal (03/22/24 2:55 PM) Normal AO Hematology S TROPHSon 03-22-2024 High Sensitivity Troponin I 4 ng/L Normal 0-51 [facility] Comment on above: Result Comment: High Sensitive Troponin I Reference Ranges: Female: 0-51 ng/L Male: 0-76 ng/L Testing performed on [employer] using a homogeneous sandwich chemiluminescent immunoassay based on LiveProfile technology. Performed By: #### A MEERA DALE MDW, GFR, CBC, MORPH, TROPHS, BMP #### [place] [address] TROPONINon 03-22-2024 HS TROPONIN 4.7 pg/mL Normal 0.0 - 51.4 [facility] Comment on above: Performed By: #### 2 96583 #### [facility],[address] [place] [address] UAon 03-22-2024 Color (U) Yellow Normal [facility] Comment on above: Performed By: #### U A #### [place] [address] Glucose (U) [Mass/Vol] Negative Normal Negative [facility] Comment on above: Performed By: #### U A #### [place] [address] Ketones Ql (U) Trace Abnormal Negative [facility] Comment on above: Performed By: #### U A #### [place] [address] UA Appear Clear Normal Clear [facility] Comment on above: Performed By: #### U A #### [place] [address] UA Blood Negative Normal Negative [facility] Comment on above: Performed By: #### U A #### [place] [id number] UA Leuk Est Negative Normal Negative [facility] Comment on above: Performed By: #### U A #### [place] [address] UA Nitrite Negative Normal Negative [facility] Comment on above: Performed By: #### U A #### [place] [address] UA pH 7.0 Normal 5.0 - 8.0 [facility] Comment on above: Performed By: #### U A #### [place] [address] UA Protein Negative Normal Negative [facility] Comment on above: Performed By: #### U A #### [place] [address] UA Spec Grav 1.020 Normal 1.015-1.025 [facility] Comment on above: Performed By: #### U A #### [place] [address] UA Specimen Type Clean Catch Normal [facility] Comment on above: Performed By: #### U A #### [place] [address] UA Urobilinogen 0.2 E.U./dL Normal 0.2-1.0 [facility] Comment on above: Performed By: #### U A #### [place] [address] Urobilinogen (U) [Mass/Vol] Negative Normal Negative [facility] Comment on above: Performed By: #### U A #### [place] [address] URINALYSISon 03-22-2024 Bilirubin Ql (U) Negative Normal NORMAL: NEGATIVE [facility] Comment on above: Performed By: #### 2 27371 ####[facility],[address] [place] [address] Clarity (U) clear Normal NORMAL: CLEAR [facility] Comment on above: Performed By: #### 2 61437 ####[facility],[address] [place] [address] Color (U) YELLOW Normal NORMAL: YELLOW [facility] Comment on above: Performed By: #### 2 76657 ####[facility],[address] [place] [address] Glucose Ql (U) NORM Normal NORMAL: NORMAL [facility] Comment on above: Performed By: #### 2 51086 ####[facility],[address] [place] [address] Hemoglobin Ql (U) Negative Normal NORMAL: NEGATIVE [facility] Comment on above: Performed By: #### 2 36310 ####[facility],[address] [place] [address] Ketone Negative Normal NORMAL: NEGATIVE [facility] Comment on above: Performed By: #### 2 34883 ####[facility],[address] [place] [address] Leukocytes Negative Normal NORMAL: NEGATIVE [facility] Comment on above: Performed By: #### 2 44393 ####[facility],[address] [place] [address] Nitrite Ql (U) Negative Normal NORMAL: NEGATIVE [facility] Comment on above: Performed By: #### 2 44000 ####[facility],[address] [place] [address] pH (U) 7 [pH] Normal NORMAL: 5.0-8.0 [facility] Comment on above: Performed By: #### 2 18263 ####[facility],[address] [place] [address] Protein Ql (U) Negative Normal NORMAL: NEGATIVE [facility] Comment on above: Performed By: #### 2 42940 ####[facility],[address] [place] [address] Sp [place] 1.015 Normal NORMAL: 1.010-1.030 [facility] Comment on above: Performed By: #### 2 78237 ####[facility],[address] [place] [address] Specimen Type UNSPECIFIED Normal [facility] Comment on above: Performed By: #### 2 80486 ####[facility],[address] [place] [address] Urinalysis dipstick W Reflex Microscopic panel (U) NOT INDICATED Normal [facility] Comment on above: Performed By: #### 2 48952 ####[facility],[address] [place] [address] Urobilinog NORM Normal NORMAL: NORMAL [facility] Comment on above: Performed By: #### 2 49674 ####[facility],[address] [place] [address] 12-28-2023 [facility] Telephone ([facility]) QUE ESCOBAR ([id number]) 1990 [facility] Date Time Provider Department 12/28/23 DAVIDE CHAO [facility] During your visit today, we recorded the following information about you: Fiordaliza Sims RN 12/28/2023 3:53 PM Signed The patient has been identified by name and date of : Yes Caregiver verified no other encounters exist for this prescription request: Yes Caregiver confirmed with patient/requestor that no other refills are due, in the near future, with this provider at this time: Yes The last office visit in the department: 10/17/2023 Requested Prescriptions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 Take 1 tablet by mouth every 6 hours as needed. (Patient not taking: Reported on 10/17/2023) valACYclovir (VALTREX) 500 mg tablet Take 1 tablet by mouth once daily. (Patient not taking: Reported on 10/17/2023) No current facility-administered medications for this visit. SOCIAL HISTORY Social History Tobacco Use Smoking status: Former Packs/day: 1.00 Years: 17.00 Additional pack years: 0.00 Total pack years: 17.00 Types: Cigarettes Quit date: 01/22/2021 Years since quittin.7 Smokeless tobacco: Never Vaping Use Vaping Use: current everyday user Substance Use Topics Alcohol use: No Drug use: No REVIEW OF SYSTEMS See HPI OBJECTIVE: BP 89/62 (BP Site: Right Arm, BP Position: Sitting, BP Cuff Size: Large Adult) Pulse 94 Resp 16 Wt 79.2 kg (174 lb 9.6 oz) LMP 10/03/2023 (Approximate) SpO2 98% BMI 28.18 kg/m? APPEARANCE Well appearing, alert, in no acute distress, well-hydrated, well nourished. EYES PERRLA, conjunctiva and sclera normal. EARS External ears normal, canals clear NOSE/SINUS Nares normal. Septum midline. Mucosa normal. No drainage or sinus tenderness. THROAT normal, no erythema NECK Supple, no adenopathy; thyroid symmetric, normal size, no bruits HEART RRR with normal S1 and S2, no murmurs, no gallops, no JVD appreciated LUNG clear to auscultation ABDOMEN bowel sounds normoactive, no bruits, soft, non-tender, non-distended, without organomegaly or palpable masses, no tenderness to palpation EXTREMITIES Extremities normal, No deformities, No skin discoloration, No edema, and Normal pulses bilaterally. (more content not included)... Normal [facility] HbA1c (Bld)on 10-17-2023 Average glucose Estimated from glycated hemoglobin (Bld) [Mass/Vol] 105 mg/dL [facility] Comment on above: eAG: (Estimated aver age glucose) is a calculated value from HgbA1c and is underwriting sales representative of the average blood glucose level in the last 2-3 month period. HbA1c (Bld) [Mass fraction] 5.3 % 4.3 - 5.6 % [facility] Comment on above: [place] Diabetes As sociation guidelines indicate that patients with HgbA1c in the range 5.7-6.4% are at increased risk for development of diabetes, and intervention by lifestyle modification may be beneficial. HgbA1c greater or equal to 6.5% is considered diagnostic of diabetes. [facility] Average glucose Estimated from glycated hemoglobin (Bld) [Mass/Vol] 105 mg/dL Normal [facility] Comment on above: Order Comment: Casandra moran Type: BLOOD SPECIMENOrdering Facility: [facility] Address: [address] [place] [address] Result Comment: eAG: (Estimated average glucose) is a calculated value from HgbA1c and is underwriting sales representative of the average blood glucose level in the last 2-3 month period. Performed By: #### 5 5454-3 ####[facility] LABCLIA [id number] [place] [address] [place] HbA1c (Bld) [Mass fraction] 5.3 % Normal 4.3-5.6 [facility] Comment on above: Order Comment: Casandra moran Type: BLOOD SPECIMENOrdering Facility: [facility] Address: [address] [place] [address] Result Comment: [place] Diabetes Association guidelines indicate that patients with HgbA1c in the range 5.7-6.4% are at increased risk for development of diabetes, and intervention by lifestyle modification may be beneficial. HgbA1c greater or equal to 6.5% is considered diagnostic of diabetes. Performed By: #### 5 5454-3 ####[facility] LABCLIA [id number] [place] [address] [place] TSH SerPl-aCncon 10-17-2023 TSH Qn 0.885 m[IU]/L Normal 0.270-4.200 [facility] Comment on above: Order Comment: Speci men Type: BLOOD SPECIMENOrdering Facility: [facility] Address: [address] [place] [address] Result Comment: If t he patient is , TSH reference range varies by gestational period: First Trimester (weeks 9-12): 0.180-2.990 mIU/L Second Trimester: 0.110-3.980 mIU/L Third Trimester: 0.480-4.710 mIU/L Howard Jacobo et al. A Practical Approach for the Verifications and Determination of Site- and Trimester-Specific Reference Intervals for Thyroid Function tests in . Thyroid, 2019:29:3:412-420. John E, et al. 2017 Guidelines of the [place] Thyroid Association for the Diagnosis and Management of Thyroid Disease during and the . Thyroid, 2017:27:3:315-389. Performed By: #### 2 4321-2, 3016-3 ####[facility] LABCLIA [id number] [place] [address] [place] Basophil percentageOrdered B y: Melissa Saxena on 10-03-2023 Hemoglobin (Bld) [Mass/Vol] 11.9 g/dL 12.0-15.0 [facility] WBC (Bld) [#/Vol] 5.7 10*3/uL 4.4-11.0 [facility] Determination of erythrocyte mean corpuscular volume (MCV)Ordered By: Melissa Saxena on 10-03-2023 MCV (RBC) [Entitic vol] 85.5 fL 81-99 [facility] Erythrocyte distribution wid th ratioOrdered By: Melissa Saxena on 10-03-2023 Erythrocyte distribution width (RBC) [Ratio] 14.6 % 11.6-14.6 [facility] Erythrocyte distribution wid th standard deviationOrdered By: Melissa Armentaloreta on 10-03-2023 Erythrocyte distribution width (RBC) [Entitic vol] 45.8 fL 35.1-43.9 [facility] Hematocrit Auto (Bld) [Volum e fraction]Ordered By: Melissa Hemanth on 10-03-2023 Hematocrit (Bld) [Volume fraction] 36.6 % 37-47 [facility] Laboratory - Hematology and Cell countsOrdered By: Melissa Saxena on 10-03-2023 MCH (RBC) [Entitic mass] 27.8 pg 27.0-32.0 [facility] MCHC (RBC) [Mass/Vol] 32.5 g/dL 32-36 [facility] Platelet mean volume (Bld) [Entitic vol] 9.9 fL 6.2-12.0 [facility] Platelets (Bld) [#/Vol] 282 10*3/uL 150-450 [facility] RBC Auto (Bld) [#/Vol]Ordere d By: Melissa Hemanth on 10-03-2023 RBC (Bld) [#/Vol] 4.28 10*6/uL 4.2-5.4 [facility] CBC + DIFFon 09-21-2023 Baso # 0.04 x10EE3/UL Normal 0.00 - 0.10 [facility] Comment on above: Performed By: #### 2 25489 #### [facility],[address] [place] [address] Basophils/100 WBC (Bld) 0.5 % Normal 0.0 - 2.0 [facility] Comment on above: Performed By: #### 2 87654 #### [facility],[address] [place] [address] CBC + DIFF Normal [facility] Comment on above: Result Comment: CBC- COMPLETE BLOOD COUNT Performed By: #### 2 60954 #### [facility],[address] [place] [address] EO # 0.41 x10EE3/UL Normal 0.00 - 0.50 [facility] Comment on above: Performed By: #### 2 75248 #### [facility],[address] [place], [place] [id number] Eosinophils/100 WBC (Bld) 4.5 % Normal 0.0 - 7.0 [facility] Comment on above: Performed By: #### 2 59268 #### [facility],[address] [place] [address] Erythrocyte distribution width (RBC) [Ratio] 15.1 % Normal 12.0 - 15.6 [facility] Comment on above: Performed By: #### 2 01250 #### [facility],[address] [place] [address] Hematocrit (Bld) [Volume fraction] 38.9 % Normal 34.0 - 46.0 [facility] Comment on above: Performed By: #### 2 56943 #### [facility],[address] [place] [address] Hemoglobin (Bld) [Mass/Vol] 13.1 g/dL Normal 12.0 - 16.0 [facility] Comment on above: Performed By: #### 2 22996 #### [facility],[address] [place] [address]265 Lymph # 2.92 x10EE3/UL High 0.80 - 2.80 [facility] Comment on above: Performed By: #### 2 99522 #### [facility],[address] [place], [place] [id number] Lymphocytes/100 WBC (Bld) 32.0 % Normal 20.0 - 45.0 [facility] Comment on above: Performed By: #### 2 62983 #### [facility],[address] [place] [address] MANUAL DIFF N/A Normal [facility] Comment on above: Performed By: #### 2 49825 #### [facility],[address] [place] [address] MCH (RBC) [Entitic mass] 28 pg Normal 27 - 33 [facility] Comment on above: Performed By: #### 2 13356 #### [facility],[address] [place] [address] MCHC 34 X10 3 Normal 32 - 36 [facility] Comment on above: Performed By: #### 2 81936 #### [facility],[address] [place] [address] MCV (RBC) [Entitic vol] 84 fL Normal 80 - 99 [facility] Comment on above: Performed By: #### 2 88723 #### [facility],[address] [place] [address] [place] # 0.69 x10EE3/UL Normal 0.20 - 1.00 [facility] Comment on above: Performed By: #### 2 62914 #### [facility],[address] [place] [address] MONOS % 7.6 % Normal 0.0 - 10.0 [facility] Comment on above: Performed By: #### 2 40354 #### [facility],[address] [place] [address] Morphology Subhash (Bld) [Interp] N/A Normal [facility] Comment on above: Performed By: #### 2 41906 #### [facility],[address] [place] [address] Neut # 5.08 x10EE3/UL Normal 1.50 - 7.10 [facility] Comment on above: Performed By: #### 2 21538 #### [facility],[address] [place] [address] Neutrophils/100 WBC (Bld) 55.5 % Normal 46.0 - 76.0 [facility] Comment on above: Performed By: #### 2 74348 #### [facility],[address] [place] [address]49 PLATELET 295 x10EE3/UL Normal 150 - 450 [facility] Comment on above: Performed By: #### 2 25698 #### [facility],[address] [place] [address] 61672 Platelet mean volume (Bld) [Entitic vol] 8.8 fL Normal 6.6 - 10.5 [facility] Comment on above: Result Comment: AUTO MATED DIFFERENTIAL Performed By: #### 2 15070 #### [facility],[address] [place] [address] 74591 RBC 4.65 x 10EE6/UL Normal 4.10 - 5.30 [facility] Comment on above: Performed By: #### 2 89183 #### [facility],[address] [place] [address] 55071 WBC 9.2 x 10EE3/UL Normal 4.5 - 10.8 [facility] Comment on above: Performed By: #### 2 50626 #### [facility],[address] [place] [address] 98418 CMP with eGFRon 09-21-2023 AGE 33 years Normal [facility] Comment on above: Performed By: #### 2 70113 ####[facility],[address] [place] [address] 26495 Albumin [Mass/Vol] 3.8 g/dL Normal 3.4 - 5.0 [facility] Comment on above: Performed By: #### 2 18402 ####[facility],[address] [place] [address] 69202 Albumin/Globulin [Mass ratio] 1.0 {ratio} Normal 0.9 - 1.6 [facility] Comment on above: Performed By: #### 2 11623 ####[facility],[address] [place] [address] 33866 ALK PHOS 117 U/L High 46 - 116 [facility] Comment on above: Performed By: #### 2 56565 ####[facility],[address] [place] [address] 03781 ALT [Catalytic activity/Vol] 28 U/L Normal 16 - 63 [facility] Comment on above: Performed By: #### 2 40211 ####[facility],[address] [place] [address] 48238 Anion gap [Moles/Vol] 14 mmol/L Normal 10 - 20 [facility] Comment on above: Performed By: #### 2 73768 ####[facility],[address] [place] [place] [address] 35805 AST [Catalytic activity/Vol] 18 U/L Normal 13 - 39 [facility] Comment on above: Performed By: #### 2 95483 ####[facility],[address] [place] [address] 08663 B/C RATIO 20 ratio Normal 0 - 30 [facility] Comment on above: Performed By: #### 2 17027 ####[facility],[address] [place] [address] 32515 Bilirubin [Mass/Vol] 0.6 mg/dL Normal 0.2 - 1.0 [facility] Comment on above: Performed By: #### 2 17982 ####[facility],[address] [place] [address] 10986 Calcium [Mass/Vol] 8.9 mg/dL Normal 8.5 - 10.1 [facility] Comment on above: Performed By: #### 2 14471 ####[facility],[address] [place] [address] 69530 Chloride [Moles/Vol] 100 mmol/L Normal 98 - 107 [facility] Comment on above: Performed By: #### 2 65683 ####[facility],[address] [place] [address] 39583 CMP with eGFR Normal [facility] Comment on above: Result Comment: COMP REHENSIVE METABOLIC PANEL Performed By: #### 2 44630 ####[facility],[address] [place] [address] 24935 CO2 [Moles/Vol] 24.9 mmol/L Normal 21.0 - 32.0 [facility] Comment on above: Performed By: #### 2 99598 ####[facility],[address] [place] [address] 74670 Creatinine [Mass/Vol] 0.89 mg/dL Normal 0.55 - 1.02 [facility] Comment on above: Performed By: #### 2 15299 ####[facility],[address] [place] [address] 78468 GFR/1.73 sq M.predicted among non-blacks MDRD (S/P/Bld) [Vol rate/Area] mL/min/{1.73_m2} Normal 60 - 999 [facility] Comment on above: Performed By: #### 2 72355 ####[facility],[address] [place] [address] 05910 Result Comment: ACCO RDING TO THE NATIONAL KIDNEY DISEASE EDUCATION PROGRAM(NKDE), A NORMAL eGFR IS A VALUE GREATER THAN OR EQUAL TO 60 ML/MIN/1.73 SQ METERS. CHRONIC KIDNEY DISEASE: <60mL/MIN/1.73 SQ METERS KIDNEY FAILURE: <15mL/MIN/1.73 SQ METERS THIS TEST SHOULD ONLY BE USED FOR PATIENTS 18 YEARS OF AGE AND OLDER. Globulin (S) [Mass/Vol] 3.8 g/dL Normal 1.5 - 3.8 [facility] Comment on above: Performed By: #### 2 91303 ####[facility],[address] [place] [address] 25815 Glucose [Mass/Vol] 82 mg/dL Normal 74 - 106 [facility] Comment on above: Performed By: #### 2 67437 ####[facility],[address] [place] [address] 77644 Potassium [Moles/Vol] 3.8 mmol/L Normal 3.5 - 5.1 [facility] Comment on above: Performed By: #### 2 63030 ####[facility],[address] [place] [address] 79409 Protein [Mass/Vol] 7.6 g/dL Normal 6.4 - 8.2 [facility] Comment on above: Performed By: #### 2 32838 ####[facility],[address] [place] [address] 52125 Sodium [Moles/Vol] 135 mmol/L Low 136 - 145 [facility] Comment on above: Performed By: #### 2 86244 ####[facility],[address] [place] [address] 88824 Urea nitrogen [Mass/Vol] 18 mg/dL Normal 7 - 18 [facility] Comment on above: Performed By: #### 2 81796 ####[facility],[address] [place], [place] [id number] CT ABDOMEN/PELVIS [facility] 2023 CT ABDOMEN/PELVIS [place] [address] Patient: QUE ESCOBAR Phone#: : 1990 Age: 33 Gender: F Pt. Type: ER Account: [id number] Location: [facility] Ordering: ANATOLIY BRYANT Exam Date: 09/21/2023/18:04 Family Phys: ROBER HANEY Charge Code: 858528 Physician: Bradford Order #: [id number] Dose#: 13.2 PROCEDURE: CT ABDOMEN/PELVIS WITH CONTRAST COMPARISON: None. INDICATIONS: Left lower quadrant pain. TECHNIQUE: After obtaining the patient's consent, CT images were created with non-ionic intravenous contrast material. All CT scans at this facility use dose modulation, iterative reconstruction, and/or weight based dosing when appropriate to reduce radiation dose to as low as reasonably achievable. IV CONTRAST: Omnipaque 350,80ml TOTAL DOSE: 13.2 CTDIvol(mGy) FINDINGS: LIVER: Focal low-attenuation adjacent to the falciform ligament, nonspecific but most often due to focal fatty infiltration. No enlargement, atrophy, or significant focal lesion. BILIARY: Gallbladder is absent. PANCREAS: Normal. No lesion, fluid collection, ductal dilatation, or atrophy. SPLEEN: Normal. No enlargement or focal lesion. KIDNEYS: Kidneys enhance and excrete contrast symmetrically. No hydronephrosis. Low-attenuation lesion in the left kidney, too small to characterize. ADRENALS: Normal. No mass or enlargement. AORTA/VASCULAR: No aortic aneurysm. RETROPERITONEUM: Normal. No mass or adenopathy. BOWEL/MESENTERY: No bowel obstruction or dilatation. Moderate to large stool burden. Appendix is unremarkable in size containing air. ABDOMINAL WALL: Fat containing umbilical hernia URINARY BLADDER: Normal. No visible focal wall thickening, lesion, or calculus. PELVIC NODES: Normal. No adenopathy. PELVIC ORGANS: Uterus is present. Tubal ligation clips in the adnexa. No adnexal mass. BONES: Normal. No bony lesion or fracture. LUNG BASES: Normal. No visible pulmonary or pleural disease. Continued Report - Page 2 of 2 Patient: QUE ESCOBAR Phone#: : 1990 Age: 33 Gender: F Pt. Type: ER Account: [id number] Location: 052 Ordering: ANATOLIY BRYANT Exam Date: 09/21/2023/18:04 Family Phys: ROBER HANEY Charge Code: 257511 Physician: Bradford Order #: [id number] Dose#: 13.2 OTHER: Negative. CONCLUSION: 1. No acute intra-abdominal or pelvic abnormality. 2. Constipation Dictated by: Rowan Cordero MD on 09/22/2023 at 9:59 Approved by: Rowan Cordero MD on 09/22/2023 at 10:07 Normal [facility] LIPASEon 09-21-2023 Lipase [Catalytic activity/Vol] 49.0 U/L Normal 15.0 - 78.0 [facility] Comment on above: Result Comment: *PLE ASE NOTE THAT RANGES FOR LIPASE HAVE CHANGED OF 06/02/23 DUE TO AN ASSAY UPDATE BY THE METEOROLOGY INSTRUCTOR.THE NEW ASSAY RANGE IS 6-250 U/L, WITH A REFERENCE RANGE OF 16-77 U/L. Performed By: #### 2 85701 ####[facility],[address] [place] [address] 69464 URINEon 09-21-2023 Beta HCG ( test) Ql (U) Negative Normal NEGATIVE [facility] Comment on above: Performed By: #### 2 51493 #### [facility],[address] [place] [address] EXTERNAL QC DONE? YES Normal [facility] Comment on above: Performed By: #### 2 86295 #### [facility],[address] [place] [address] INTERNAL QC PASS Normal [facility] Comment on above: Performed By: #### 2 70345 #### [facility],[address] [place], [place] [id number] URINALYSISon 09-21-2023 Bilirubin Ql (U) Negative Normal NORMAL: NEGATIVE [facility] Comment on above: Performed By: #### 2 99513 #### [facility],[address] [place] [address] 45526 Clarity (U) clear Normal NORMAL: CLEAR [facility] Comment on above: Performed By: #### 2 84220 #### [facility],[address] [place] [address] 80759 Color (U) p.yel Normal NORMAL: YELLOW [facility] Comment on above: Performed By: #### 2 09739 #### [facility],[address] [place] [address] 48024 Glucose Ql (U) NORM Normal NORMAL: NORMAL [facility] Comment on above: Performed By: #### 2 24476 #### [facility],[address] [place] [address] 94168 Hemoglobin Ql (U) Negative Normal NORMAL: NEGATIVE [facility] Comment on above: Performed By: #### 2 63097 #### [facility],[address] [place] [address] 78350 Ketone Negative Normal NORMAL: NEGATIVE [facility] Comment on above: Performed By: #### 2 34510 #### [facility],[address] [place] [address] Leukocytes Negative Normal NORMAL: NEGATIVE [facility] Comment on above: Performed By: #### 2 92538 #### [facility],[address] [place] [address] Nitrite Ql (U) Negative Normal NORMAL: NEGATIVE [facility] Comment on above: Performed By: #### 2 13543 #### [facility],[address] [place] [address] pH (U) 7 [pH] Normal NORMAL: 5.0-8.0 [facility] Comment on above: Performed By: #### 2 18899 #### [facility],[address] [place] [address] Protein Ql (U) Negative Normal NORMAL: NEGATIVE [facility] Comment on above: Performed By: #### 2 41923 #### [facility],[address] [place] [address] Sp [place] 1.010 Normal NORMAL: 1.010-1.030 [facility] Comment on above: Performed By: #### 2 06297 #### [facility],[address] [place] [address] Specimen Type Void Normal [facility] Comment on above: Performed By: #### 2 43033 #### [facility],[address] [place] [address] Urinalysis dipstick W Reflex Microscopic panel (U) NOT INDICATED Normal [facility] Comment on above: Performed By: #### 2 05619 #### [facility],[address] [place] [address] Urobilinog NORM Normal NORMAL: NORMAL [facility] Comment on above: Performed By: #### 2 03622 #### [facility],[address] [place] [address] INFLUENZA A&B MOLECULAR (POC )on 08-10-2023 Flu A (POCT) Negative Negative [facility] Flu B (POCT) Negative Negative [facility] Procedural Control Valid [facility] UA DIP, URINE (POC)on 2023 BILIRUBIN UA (POCT) Negative Negative [facility] CLARITY UA (POCT) Clear [facility] COLOR UA (POCT) Yellow [facility] GLUCOSE UA (POCT) Negative Negative mg/dL [facility] Hemoglobin Ql (U) Small Abnormal Negative [facility] KETONE UA (POCT) Negative Negative mg/dL [facility] LEUKOCYTES UA (POCT) Negative Negative [facility] ([facility]) Negative [facility] PH UA (POCT) 6.0 4.5 - 8.0 [facility] Protein Ql (U) Negative Negative mg/dL [facility] SPECIFIC GRAVITY UA (POCT) 1.015 1.005 - 1.030 [facility] UROBILINOGEN UA (POCT) 0.2 E.U./dL Kelly l E.U./dL [facility] Serum or plasma choriogonado tropin detectionOrdered By: Love Castillo on 07-13-2023 HCG ( test) Ql < 1 mIU/mL <4 [facility] Comment on above: hCG levels with Gest ational AgeGestational Age hCG mIU/mL (IU/L)0.2 - 1 week 5 - 501-2 weeks 50 - 5002-3 weeks 100 - 40836-6 weeks 500 - 918399-3 weeks 1000 - 454205-1 weeks 85657 - 100,0006-8 weeks 62591 - 200,0002-3 months 67151 - 100,000 Absolute lymphocyte countOrd ered By: Melissa Saxena on 06-28-2023 Lymphocytes Auto (Unsp spec) [#/Vol] 1.74 10*3/uL 0.83-4.51 [facility] Automated lymphocyte count a s percentage of total leukocytesOrdered By: Melissa Saxena on 06-28-2023 Lymphocytes/100 WBC Auto (Unsp spec) 29.0 % 19-41 [facility] Basophil percentageOrdered B y: Melissa Saxena on 06-28-2023 Basophils/100 WBC (Bld) 0.8 % 0-1 [facility] Eosinophils/100 WBC (Bld) 5.7 % 0-5 [facility] Hemoglobin (Bld) [Mass/Vol] 11.9 g/dL 12.0-15.0 [facility] Monocytes/100 WBC (Bld) 6.7 % 0-10 [facility] Neutrophils (Bld) [#/Vol] 3.5 10*3/uL 2.0-7.7 [facility] Neutrophils/100 WBC (Bld) 57.5 % 47-70 [facility] WBC (Bld) [#/Vol] 6.0 10*3/uL 4.4-11.0 [facility] Chlamydia trachomatis rRNA d etection by probe and target amplification methodOrdered By: Love Castillo on 06-28-2023 C. trachomatis rRNA MAYTE+probe Ql (Unsp spec) Negative Negative [facility] Determination of erythrocyte mean corpuscular volume (MCV)Ordered By: Melissa [place] on 06-28-2023 MCV (RBC) [Entitic vol] 88.7 fL 81-99 [facility] Erythrocyte distribution wid th ratioOrdered By: Melissa Saxena on 06-28-2023 Erythrocyte distribution width (RBC) [Ratio] 13.7 % 11.6-14.6 [facility] Erythrocyte distribution wid th standard deviationOrdered By: Melissa [place]ena on 06-28-2023 Erythrocyte distribution width (RBC) [Entitic vol] 44.3 fL 35.1-43.9 [facility] Gram stain for investigation of transfusion reactionOrdered By: Love Castillo on 06-28-2023 Microscopic observation Gram stain Nom (Unsp spec) [facility] Microscopic observation Gram stain Nom (Unsp spec) [facility] Hematocrit Auto (Bld) [Volum e fraction]Ordered By: Melissa [place]ena on 06-28-2023 Hematocrit (Bld) [Volume fraction] 37.6 % 37-47 [facility] Immature granulocytes/100 WB C Auto (Bld)Ordered By: Melissa Saxena on 06-28-2023 Immature granulocytes/100 WBC (Bld) 0.300 % 0.0-0.9 [facility] Comment on above: IG% - Immature Granu locytes (promyelocytes, myelocytes and metamyelocytes) > 1% indicates that a LEFT SHIFT is Present. Laboratory - Hematology and Cell countsOrdered By: Melissa [place]ena on 06-28-2023 MCH (RBC) [Entitic mass] 28.1 pg 27.0-32.0 [facility] MCHC (RBC) [Mass/Vol] 31.6 g/dL 32-36 [facility] Nucleated RBC/100 WBC (Bld) [Ratio] 0 % 0-5 [facility] Platelets (Bld) [#/Vol] 388 10*3/uL 150-450 [facility] Laboratory - Microbiology an d Antimicrobial susceptibilityOrdered By: Love Castillo on 06-28-2023 N. gonorrhoeae DNA MAYTE+probe Ql (Unsp spec) Negative Negative [facility] Comment on above: Performed at: =[address] [id number] Director: Rita Vallecillo MD, Phone: [phone] No Panel InformationOrdered By: Love Castillo on 06-28-2023 Genital Culture Neisseria or beta-hemolytic Streptococcus isolated. [facility] Genital Culture Neisseria or beta-hemolytic Streptococcus isolated. [facility] No Panel Informationon 06-28 POC Bacterial Vaginitis (Rapid) Negative [facility] POC Trichomonas (Rapid) Negative [facility] Platelet mean volume Bulmaro-Ec ker (Bld) [Entitic vol]Ordered By: Melissa [place]ena on 06-28-2023 Platelet mean volume (Bld) [Entitic vol] 9.7 fL 6.2-12.0 [facility] RBC Auto (Bld) [#/Vol]Ordere d By: Melissa Saxena on 06-28-2023 RBC (Bld) [#/Vol] 4.24 10*6/uL 4.2-5.4 [facility] Serum or plasma thyroid stim ulating hormone (TSH) measurement (units/volume)Ordered By: Melissa Saxena on 06-28-2023 TSH Qn 1.21 uIU/mL 0.358-3.74 [facility] Urinalysis complete W Reflex Culture panel (U)on 06-07-2023 Appearance (U) Hazy Abnormal Clear [facility] Bilirubin (U) [Mass/Vol] Negative NEGATIVE [facility] Color (U) Yellow Straw, Yellow [facility] Crystals.amorphous Computer assisted (U) [#/Area] 1+ NONE, 1+, 2+ /HPF [facility] Glucose Auto test strip (U) [Mass/Vol] Negative NEGATIVE mg/dL [facility] Interpretation and review of laboratory results Abnormal [facility] Ketones (U) [Mass/Vol] Negative NEGAT JESUS mg/dL [facility] Leukocyte clumps Auto (Urine sed) [#/Area] FEW Reference range not established. /HPF [facility] Leukocyte esterase Auto test strip Ql (U) Negative NEGATIVE [facility] Mucus Auto (Urine sed) [#/Area] 1+ Reference range not established. /LPF [facility] Nitrite Auto test strip Ql (U) Negative NEGATIVE [facility] pH (U) 7.0 [pH] 5.0, 5.5, 6.0, 6.5, 7.0, 7.5, 8.0 [facility] Protein (U) [Mass/Vol] 100 (2+) Abnormal NEGAT JESUS mg/dL [facility] RBC (U) [#/Vol] LARGE (3+) Abnormal NEGATIVE [facility] RBC Auto (Urine sed) [#/Area] >20 Abnormal NONE, 1-2, 3-5 /HPF [facility] Specific gravity (U) [Rel density] 1.020 1.005 - 1.035 [facility] Urobilinogen (U) [Mass/Vol] mg/dL NINF - 2.0 mg/dL [facility] WBC Auto (Urine sed) [#/Area] 21-50 Abnormal 1-5, NONE /HPF [facility] ANTIBODY IDENTIFICATIONon Blood group antibody investigation (P/RBC) [Interp] Inconclusive [facility] Comment on above: Performed By: #### 5 902-2 #### STARKS TIARA ([id number]) [facility] ([facility]) [address] [place] [address] CASE # Normal [facility] Comment on above: Performed By: #### 5 902-2 #### RAUDEL MENJIVAR ([id number]) [facility] ([facility]) [facility] [place] [address] Bacteria identifiedon 2023 Bacteria identified Cx Nom (U) Test: Urine Culture Specimen Source: Clean Catch/Voided Specimen Type: Urine Specimen Date: 06/06/2023 11:41 PM Result Date: 06/08/2023 8:53 AM Result Status: Final result Abnormal: No Resulting Lab: [facility] [id number] [place] [address] CULTURE No growth Normal [facility] Comment on above: Performed By: #### 5 902-2 #### RAUDEL MENJIVAR ([id number]) [facility] ([facility]) [address] [place] [address] 98235 Basic metabolic 2000 panelon 06-06-2023 Anion gap [Moles/Vol] 11 mmol/L 10 - 2 0 mmol/L [facility] Calcium [Mass/Vol] 9.0 mg/dL 8.6 - 10. 3 mg/dL [facility] Chloride [Moles/Vol] 107 mmol/L 98 - 10 7 mmol/L [facility] CO2 [Moles/Vol] 25 mmol/L 21 - 32 mmol/L [facility] Creatinine [Mass/Vol] 0.79 mg/dL 0.50 - 1.05 mg/dL [facility] GFR/1.73 sq M.predicted MDRD (S/P/Bld) [Vol rate/Area] - PINF [facility] Comment on above: Calculations of yolanda mated GFR are performed using the 2020 CKD-EPI Study Refit equation without the race variable for the IDMS-Traceable creatinine methods. https://jasn.asnjournals.org/content/early/ASN.76983 47569 Glucose [Mass/Vol] 96 mg/dL 74 - 99 mg/dL [facility] Interpretation and review of laboratory results Normal [facility] Potassium [Moles/Vol] 3.9 mmol/L 3.5 - 5.3 mmol/L [facility] Sodium [Moles/Vol] 139 mmol/L 136 - 145 mmol/L [facility] Urea nitrogen [Mass/Vol] 12 mg/dL 6 - 23 mg/dL [facility] Anion gap [Moles/Vol] 11 mmol/L Normal 10-20 [facility] Comment on above: Performed By: #### 2 4321-2 ####RAUDEL MENJIVAR ([id number])[facility] ([facility])[address] [place] [address] 97156 Calcium [Mass/Vol] 9.0 mg/dL Normal 8.6-10.3 [facility] Comment on above: Performed By: #### 2 4321-2 ####RAUDEL MENJIVAR ([id number])[facility] ([facility])[address] [place] [address] 03530 Chloride [Moles/Vol] 107 mmol/L Normal 98-107 [facility] Comment on above: Performed By: #### 2 4321-2 ####RAUDEL MENJIVAR ([id number])[facility] ([facility])[address] [place] [address] 16626 CO2 [Moles/Vol] 25 mmol/L Normal 21-32 [facility] Comment on above: Performed By: #### 2 4321-2 ####RAUDEL MENJIVAR ([id number])[facility] ([facility])[address] [place] [address] 56194 Creatinine [Mass/Vol] 0.79 mg/dL Normal 0.50-1.05 [facility] Comment on above: Performed By: #### 2 4321-2 ####RAUDEL MENJIVAR ([id number])[facility] ([facility])[address] [place] [address] 78566 GFR/1.73 sq M.predicted MDRD (S/P/Bld) [Vol rate/Area] mL/min/{1.73_m2} Normal >60 [facility] Comment on above: Result Comment: Calc ulations of estimated GFR are performed using the 2020 CKD-EPI Study Refit equation without the race variable for the IDMS-Traceable creatinine methods. https://jasn.asnjournals.org/content//ASN.35588 33850 Performed By: #### 2 4321-2 ####RAUDEL MENJIVAR ([id number])[facility] ([facility])[address] [place] [address] 55913 Glucose [Mass/Vol] 96 mg/dL Normal 74-99 [facility] Comment on above: Performed By: #### 2 4321-2 ####RAUDEL MENJIVAR ([id number])[facility] ([facility])[address] [place] [address] 69793 Potassium [Moles/Vol] 3.9 mmol/L Normal 3.5-5.3 [facility] Comment on above: Performed By: #### 2 4321-2 ####RAUDEL MENJIVAR ([id number])[facility] ([facility])[address] [place] [address] 34795 Sodium [Moles/Vol] 139 mmol/L Normal 136-145 [facility] Comment on above: Performed By: #### 2 4321-2 ####RAUDEL MENJIVAR ([id number])[facility] ([facility])[address] [place] [address] 15794 Urea nitrogen [Mass/Vol] 12 mg/dL Normal 6-23 [facility] Comment on above: Performed By: #### 2 4321-2 ####RAUDEL MENJIVAR ([id number])[facility] ([facility])[address] [place] [address] 52969 Blood type and Indirect anti body screen panel (Bld)on 06-06-2023 ABO group Nom (Bld) A Normal [facility] Comment on above: Order Comment: Revie w your Rh Negative female patient's potential need for Rh Immune Globulin (RhIg)administration. Performed By: #### 3 4532-2 ####RAUDEL MENJIVAR ([id number])[facility] ([facility])[address] Blood group antibody screen Ql Positive Normal [facility] Comment on above: Order Comment: Revie w your Rh Negative female patient's potential need for Rh Immune Globulin (RhIg)administration. Performed By: #### 3 4532-2 ####RAUDEL MENJIVAR ([id number])[facility] ([facility])[address] [place] [address] D Ag Ql (Bld) Negative Normal [facility] Comment on above: Order Comment: Revie w your Rh Negative female patient's potential need for Rh Immune Globulin (RhIg)administration. Performed By: #### 3 4532-2 ####RAUDEL MENJIVAR ([id number])[facility] ([facility])[address] [place] [address] CBC W Auto Differential pane l (Bld)on 06-06-2023 Basophils (Bld) [#/Vol] 0.03 10*3/uL [facility] Basophils/100 WBC (Bld) 0.4 % 0.0 - 2.0 % [facility] Eosinophils (Bld) [#/Vol] 0.39 10*3/uL [facility] Eosinophils/100 WBC (Bld) 4.8 % 0.0 - 6.0 % [facility] Erythrocyte distribution width (RBC) [Ratio] 14.9 % High 11.5 - 14.5 % [facility] Hematocrit (Bld) [Volume fraction] 37.0 % 36.0 - 46.0 % [facility] Hemoglobin (Bld) [Mass/Vol] 11.8 g/dL Low 12.0 - 16.0 g/dL [facility] Immature granulocytes (Bld) [#/Vol] 0.02 10*3/uL [facility] Immature granulocytes/100 WBC (Bld) 0.2 % 0.0 - 0.9 % [facility] Comment on above: Immature Granulocyte Count (IG) includes promyelocytes, myelocytes and metamyelocytes but does not include bands. Percent differential counts (%) should be interpreted in the context of the absolute cell counts (cells/UL). Interpretation and review of laboratory results Abnormal [facility] Lymphocytes (Bld) [#/Vol] 2.86 10*3/uL [facility] Lymphocytes/100 WBC (Bld) 35.0 % 13.0 - 44.0 % [facility] MCH (RBC) [Entitic mass] 28.6 pg 26.0 - 34.0 pg [facility] MCHC (RBC) [Mass/Vol] 31.9 g/dL Low 32.0 - 36.0 g/dL [facility] MCV (RBC) [Entitic vol] 90 fL 80 - 100 fL [facility] Monocytes (Bld) [#/Vol] 0.61 10*3/uL [facility] Monocytes/100 WBC (Bld) 7.5 % 2.0 - 10.0 % [facility] Neutrophils (Bld) [#/Vol] 4.26 10*3/uL [facility] Comment on above: Percent differential counts (%) should be interpreted in the context of the absolute cell counts (cells/uL). Neutrophils/100 WBC (Bld) 52.1 % 40.0 - 80.0 % [facility] Nucleated RBC/100 WBC (Bld) [Ratio] 0.0 % [facility] Platelets (Bld) [#/Vol] 363 10*3/uL [facility] RBC (Bld) [#/Vol] 4.12 10*6/uL [facility] WBC (Bld) [#/Vol] 8.2 10*3/uL [facility] Basophils (Bld) [#/Vol] 0.03 x10*3/uL Normal 0.00-0.10 [facility] Comment on above: Performed By: #### 5 7021-8 ####RAUDEL MENJIVAR ([id number])[facility] ([facility])[address] [place] [address] 30820 Basophils/100 WBC (Bld) 0.4 % Normal 0.0-2.0 [facility] Comment on above: Performed By: #### 5 7021-8 ####RAUDEL MENJIVAR ([id number])[facility] ([facility])[address] [place] [address] 30540 Eosinophils (Bld) [#/Vol] 0.39 x10*3/uL Normal 0.00-0.70 [facility] Comment on above: Performed By: #### 5 7021-8 ####RAUDEL MENJIVAR ([id number])[facility] ([facility])[address] [place] [address] 83618 Eosinophils/100 WBC (Bld) 4.8 % Normal 0.0-6.0 [facility] Comment on above: Performed By: #### 5 7021-8 ####RAUDEL MENJIVAR ([id number])[facility] ([facility])[address] [place] [address] 57953 Erythrocyte distribution width (RBC) [Ratio] 14.9 % High 11.5-14.5 [facility] Comment on above: Performed By: #### 5 7021-8 ####RAUDEL MENJIVAR ([id number])[facility] ([facility])[address] [place] [address] 86668 Hematocrit (Bld) [Volume fraction] 37.0 % Normal 36.0-46.0 [facility] Comment on above: Performed By: #### 5 7021-8 ####RAUDEL MENJVIAR ([id number])[facility] ([facility])[address] [place] [address] 91488 Hemoglobin (Bld) [Mass/Vol] 11.8 g/dL Low 12.0-16.0 [facility] Comment on above: Performed By: #### 5 7021-8 ####RAUDEL MENJIVAR ([id number])[facility] ([facility])[address] [place] [address] 00388 Immature granulocytes (Bld) [#/Vol] 0.02 x10*3/uL Normal 0.00-0.70 [facility] Comment on above: Performed By: #### 5 7021-8 ####RAUDEL MENJIVAR ([id number])[facility] ([facility])[address] [place] [address] 17843 Immature granulocytes/100 WBC (Bld) 0.2 % Normal 0.0-0.9 [facility] Comment on above: Result Comment: Yuliya ture Granulocyte Count (IG) includes promyelocytes, myelocytes and metamyelocytes but does not include bands. Percent differential counts (%) should be interpreted in the context of the absolute cell counts (cells/UL). Performed By: #### 5 7021-8 ####RAUDEL MENJIVAR ([id number])[facility] ([facility])[address] [place] [address] 99042 Lymphocytes (Bld) [#/Vol] 2.86 x10*3/uL Normal 1.20-4.80 [facility] Comment on above: Performed By: #### 5 7021-8 ####RAUDEL MENJIVAR ([id number])[facility] ([facility])[address] [place] [address] 09030 Lymphocytes/100 WBC (Bld) 35.0 % Normal 13.0-44.0 [facility] Comment on above: Performed By: #### 5 7021-8 ####RAUDEL MENJIVAR ([id number])[facility] ([facility])[address] [place] [address] 67680 MCH (RBC) [Entitic mass] 28.6 pg Normal 26.0-34.0 [facility] Comment on above: Performed By: #### 5 7021-8 ####RAUDEL MENJIVAR ([id number])[facility] ([facility])[address] [place] [address] 86132 MCHC (RBC) [Mass/Vol] 31.9 g/dL Low 32.0-36.0 [facility] Comment on above: Performed By: #### 5 7021-8 ####RAUDEL MENJIVAR ([id number])[facility] ([facility])[address] [place] [address] 65801 MCV (RBC) [Entitic vol] 90 fL Normal 80-100 [facility] Comment on above: Performed By: #### 5 7021-8 ####RAUDEL MENJIVAR ([id number])[facility] ([facility])[address] [place] [address] 49874 Monocytes (Bld) [#/Vol] 0.61 x10*3/uL Normal 0.10-1.00 [facility] Comment on above: Performed By: #### 5 7021-8 ####RAUDEL MENJIVAR ([id number])[facility] ([facility])[address] [place] [address] 78568 Monocytes/100 WBC (Bld) 7.5 % Normal 2.0-10.0 [facility] Comment on above: Performed By: #### 5 7021-8 ####RAUDEL MENJIVAR ([id number])[facility] ([facility])[address] [place] [address] 43347 Neutrophils (Bld) [#/Vol] 4.26 x10*3/uL Normal 1.20-7.70 [facility] Comment on above: Result Comment: Perc ent differential counts (%) should be interpreted in the context of the absolute cell counts (cells/uL). Performed By: #### 5 7021-8 ####RAUDEL MENJIVAR ([id number])[facility] ([facility])[address] [place] [address] 05786 Neutrophils/100 WBC (Bld) 52.1 % Normal 40.0-80.0 [facility] Comment on above: Performed By: #### 5 7021-8 ####RAUDEL MENJIVAR ([id number])[facility] ([facility])[address] [place] [address] 60423 Nucleated RBC/100 WBC (Bld) [Ratio] 0.0 /100 WBCs Normal 0.0-0.0 [facility] Comment on above: Performed By: #### 5 7021-8 ####RAUDEL MENJIVAR ([id number])[facility] ([facility])[address] [place] [address] 44351 Platelets (Bld) [#/Vol] 363 x10*3/uL Normal 150-450 [facility] Comment on above: Performed By: #### 5 7021-8 ####RAUDEL MENJIVAR ([id number])[facility] ([facility])[address] [place] [address] 09284 RBC (Bld) [#/Vol] 4.12 x10*6/uL Normal 4.00-5.20 [facility] Comment on above: Performed By: #### 5 7021-8 ####RAUDEL MENJIVAR ([id number])[facility] ([facility])[address] [place] [address] WBC (Bld) [#/Vol] 8.2 x10*3/uL Normal 4.4-11.3 [facility] Comment on above: Performed By: #### 5 7021-8 ####RAUDEL MENJIVAR ([id number])[facility] ([facility])[address] [place] [address] Urinalysis complete W Reflex Culture panel (U)on 06-06-2023 Appearance (U) Hazy Normal Clear [facility] Comment on above: Performed By: #### 5 8077-9 ####RAUDEL MENJIVAR ([id number])[facility] ([facility])[address] [place] [address] Bilirubin (U) [Mass/Vol] Negative Normal NEGATIVE [facility] Comment on above: Performed By: #### 5 8077-9 ####RAUDEL MENJIVAR ([id number])[facility] ([facility])[address] [place] [address] Color (U) Yellow Normal Straw, Yellow [facility] Comment on above: Performed By: #### 5 8077-9 ####RAUDEL MENJIVAR ([id number])[facility] ([facility])[address] [place] [address] Crystals.amorphous Computer assisted (U) [#/Area] 1+ /HPF Normal NONE, 1+, 2+ [facility] Comment on above: Performed By: #### 5 8077-9 ####RAUDEL MENJIVAR ([id number])[facility] ([facility])[address] [place] [address] Glucose Auto test strip (U) [Mass/Vol] Negative Normal NEGATIVE [facility] Comment on above: Performed By: #### 5 8077-9 ####RAUDEL MENJIVAR ([id number])[facility] ([facility])[address] [place] [address] 22676 Ketones (U) [Mass/Vol] Negative Normal NEGATIVE [facility] Comment on above: Performed By: #### 5 8077-9 ####RAUDEL MENJIVAR ([id number])[facility] ([facility])[address] [place] [address] 92149 Leukocyte clumps Auto (Urine sed) [#/Area] FEW Normal Reference range not established. [facility] Comment on above: Performed By: #### 5 8077-9 ####RAUDEL MENJIVAR ([id number])[facility] ([facility])[address] [place] [address] 24042 Leukocyte esterase Auto test strip Ql (U) Negative Normal NEGATIVE [facility] Comment on above: Performed By: #### 5 8077-9 ####RAUDEL MENJIVAR ([id number])[facility] ([facility])[address] [place] [address] 67849 Mucus Auto (Urine sed) [#/Area] 1+ /LPF Normal Reference range not established. [facility] Comment on above: Performed By: #### 5 8077-9 ####RAUDEL MENJIVAR ([id number])[facility] ([facility])[address] [place] [address] 24762 Nitrite Auto test strip Ql (U) Negative Normal NEGATIVE [facility] Comment on above: Performed By: #### 5 8077-9 ####RAUDEL MENJIVAR ([id number])[facility] ([facility])[address] [place], [place] [id number] pH (U) 7.0 [pH] Normal 5.0, 5.5, 6.0, 6.5, 7.0, 7.5, 8.0 [facility] Comment on above: Performed By: #### 5 8077-9 ####RAUDEL MENJIVAR ([id number])[facility] ([facility])[address] [place] [address] 02432 Protein (U) [Mass/Vol] 100 (2+) Normal NEGATIVE [facility] Comment on above: Performed By: #### 5 8077-9 ####RAUDEL MENJIVAR ([id number])[facility] ([facility])[address] [place] [address] 59837 RBC (U) [#/Vol] LARGE (3+) Abnormal NEGATIVE [facility] Comment on above: Performed By: #### 5 8077-9 ####RAUEDL MENJIVAR ([id number])[facility] ([facility])[address] [place] [address] 58017 RBC Auto (Urine sed) [#/Area] >20 Abnormal NONE, 1-2, 3-5 [facility] Comment on above: Performed By: #### 5 8077-9 ####RAUDEL MENJIVAR ([id number])[facility] ([facility])[address] [place] [address] 11431 Specific gravity (U) [Rel density] 1.020 Normal 1.005-1.035 [facility] Comment on above: Performed By: #### 5 8077-9 ####RAUDEL MENJIVAR ([id number])[facility] ([facility])[address] [place] [address] 65505 Urobilinogen (U) [Mass/Vol] mg/dL Normal <2.0 [facility] Comment on above: Performed By: #### 5 8077-9 ####RAUDEL MENJIVAR ([id number])[facility] ([facility])[address] [place] [address] 10846 WBC Auto (Urine sed) [#/Area] 21-50 Abnormal 1-5, NONE [facility] Comment on above: Performed By: #### 5 8077-9 ####RAUDEL MENJIVAR ([id number])[facility] ([facility])[address] [place] [address] 50484 Basophil percentageOrdered B y: Jeanette Roach on 03-18-2023 WBC (Bld) [#/Vol] 9.4 10*3/uL 4.4-11.0 [facility] Blood erythrocytes count (nu mber/volume)Ordered By: Jeanette Roach on 03-18-2023 RBC (Bld) [#/Vol] 3.98 10*6/uL 4.2-5.4 [facility] Blood hemoglobin measurement (mass/volume)Ordered By: Jeanette Roach on 03-18-2023 Hemoglobin (Bld) [Mass/Vol] 10.4 g/dL 12.0-15.0 [facility] Blood platelet mean volumeOr dered By: Jeanette Roach on 03-18-2023 Platelet mean volume (Bld) [Entitic vol] 9.1 fL 6.2-12.0 [facility] Determination of erythrocyte mean corpuscular volume (MCV)Ordered By: Jeanette Roach on 03-18-2023 MCV (RBC) [Entitic vol] 87.7 fL 81-99 [facility] Hematocrit Auto (Bld) [Volum e fraction]Ordered By: Jeanette Roach on 03-18-2023 Hematocrit (Bld) [Volume fraction] 34.9 % 37-47 [facility] Laboratory - Chemistry and C hemistry - challengeOrdered By: Jeanette Roach on 03-18-2023 ALT [Catalytic activity/Vol] 17 U/L 13-56 [facility] - Hematology and Cell countsOrdered By: Jeanette Roach on 03-18-2023 Erythrocyte distribution width (RBC) [Entitic vol] 49.8 fL 35.1-43.9 [facility] Erythrocyte distribution width (RBC) [Ratio] 15.8 % 11.6-14.6 [facility] MCH (RBC) [Entitic mass] 26.1 pg 27.0-32.0 [facility] MCHC Auto (RBC) [Mass/Vol]Or dered By: Jeanette Roach on 03-18-2023 MCHC (RBC) [Mass/Vol] 29.8 g/dL 32-36 [facility] No Panel InformationOrdered By: Jeanette Roach on 03-18-2023 Estimated Creatinine Clearance Calc 116.32 ml/min [facility] Estimated GFR (MDRD) Amer 136 mL/min >60 [facility] Comment on above: GFR Calc Estimated GFR (MDRD) Non-Af Amer 112 mL/min >60 [facility] Comment on above: Non- GFR Calc Platelets bldOrdered By: Marc Roach on 03-18-2023 Platelets (Bld) [#/Vol] 400 10*3/uL 150-450 [facility] Serum or plasma creatinine m easurement (mass/volume)Ordered By: Jeanette Roach on 03-18-2023 Creatinine [Mass/Vol] 0.65 mg/dL 0.55-1.02 [facility] Comment on above: The validity of the calculated GFR & GFRAA in patients over 70 years has not been determined. Clinical correlation is essential. Serum or plasma uric acid me asurement (mass/volume)Ordered By: Jeanette Roach on 03-18-2023 Urate [Mass/Vol] 5.1 mg/dL 2.6-6.0 [facility] Comment on above: The drugs N-Acetylcy steine and Metamizole may falsely depress this assay. Thin prep Papanicolaou smear with manual screeningOrdered By: Jeanette Roach on 03-18-2023 Thin prep Papanicolaou smear with manual screening 12 U/L 15-37 [facility] APTTon 03-13-2023 aPTT Coag (PPP) [Time] 27 s Un [facility] Work Phone: Bacteria identifiedon 2022 Bacteria identified Cx Nom (U) Test: Urine Culture Specimen Source: Clean Catch/Voided Specimen Type: Urine Specimen Date: 03/13/2023 6:19 PM Result Date: 03/14/2023 7:22 PM Result Status: Final result Abnormal: No Resulting Lab: [facility] [address] [place] [address] CULTURE No significant growth Normal [facility] Comment on above: Performed By: #### 6 30-4 ####LEA Jacobo ([id number])[facility] ([facility])[id number] [place] [address] Basic metabolic 2000 panelon 03-13-2023 Anion gap [Moles/Vol] 15 mmol/L 10 - 2 0 mmol/L [facility] Calcium [Mass/Vol] 8.8 mg/dL 8.6 - 10. 3 mg/dL [facility] Chloride [Moles/Vol] 103 mmol/L 98 - 10 7 mmol/L [facility] CO2 [Moles/Vol] 25 mmol/L 21 - 32 mmol/L [facility] Creatinine [Mass/Vol] 0.51 mg/dL 0.50 - 1.05 mg/dL [facility] GFR/1.73 sq M.predicted MDRD (S/P/Bld) [Vol rate/Area] - PINF [facility] Comment on above: Calculations of yolanda mated GFR are performed using the 2020 CKD-EPI Study Refit equation without the race variable for the IDMS-Traceable creatinine methods. https://jasn.asnjournals.org/content/early//ASN.34526 08807 Glucose [Mass/Vol] 89 mg/dL 74 - 99 mg/dL [facility] Potassium [Moles/Vol] 3.8 mmol/L 3.5 - 5.3 mmol/L [facility] Sodium [Moles/Vol] 139 mmol/L 136 - 145 mmol/L [facility] Urea nitrogen [Mass/Vol] 10 mg/dL 6 - 23 mg/dL [facility] Anion gap [Moles/Vol] 15 mmol/L Normal 10-20 [facility] Comment on above: Performed By: #### 2 4321-2 ####RAUDEL MENJIVAR ([id number])[facility] ([facility])[address] [place] [address] 81875 Calcium [Mass/Vol] 8.8 mg/dL Normal 8.6-10.3 [facility] Comment on above: Performed By: #### 2 4321-2 ####RAUDEL MENJIVAR ([id number])[facility] ([facility] [place] [address] Chloride [Moles/Vol] 103 mmol/L Normal 98-107 [facility] Comment on above: Performed By: #### 2 4321-2 ####RAUDEL MENJIVAR ([id number])[facility] ([facility] [place] [address] CO2 [Moles/Vol] 25 mmol/L Normal 21-32 [facility] Comment on above: Performed By: #### 2 4321-2 ####RAUDEL MENJIVAR ([id number])[facility] ([facility] [place] [address] Creatinine [Mass/Vol] 0.51 mg/dL Normal 0.50-1.05 [facility] Comment on above: Performed By: #### 2 4321-2 ####RAUDEL MENJIVAR ([id number])[facility] ([facility])[address] [place] [address] 05398 GFR/1.73 sq M.predicted MDRD (S/P/Bld) [Vol rate/Area] mL/min/{1.73_m2} Normal >60 [facility] Comment on above: Result Comment: Calc ulations of estimated GFR are performed using the 2020 CKD-EPI Study Refit equation without the race variable for the IDMS-Traceable creatinine methods. https://jasn.asnjournals.org/content//ASN.94649 73372 Performed By: #### 2 1-2 ####RAUDEL MENJIVAR ([id number])[facility] ([facility])[address] [place] [address] 15624 Glucose [Mass/Vol] 89 mg/dL Normal 74-99 [facility] Comment on above: Performed By: #### 2 1-2 ####RAUDEL MENJIVAR ([id number])[facility] ([facility])[address] [place] [address] 29761 Potassium [Moles/Vol] 3.8 mmol/L Normal 3.5-5.3 [facility] Comment on above: Performed By: #### 2 4321-2 ####RAUDEL MENJIVAR ([id number])[facility] ([facility])[address] [place] [address] 27303 Sodium [Moles/Vol] 139 mmol/L Normal 136-145 [facility] Comment on above: Performed By: #### 2 4321-2 ####RAUDEL MENJIVAR ([id number])[facility] ([facility])[address] [place] [address] 28725 Urea nitrogen [Mass/Vol] 10 mg/dL Normal 6-23 [facility] Comment on above: Performed By: #### 2 4321-2 ####RAUDEL MENJIVAR ([id number])[facility] ([facility])[address] [place] [address] C reactive proteinon 023 CRP [Mass/Vol] 6.62 mg/dL High <1.00 [facility] Comment on above: Performed By: #### 1 988-5 #### RAUDEL MENJIVAR ([id number]) [facility] ([facility]) [address] [place] [address] C-Reactive Proteinon 023 CRP [Mass/Vol] 6.62 mg/dL High NINF - 1.00 mg/dL [facility] CBC W Auto Differential pane l (Bld)on 03-13-2023 Basophils (Bld) [#/Vol] 0.04 10*3/uL [facility] Basophils/100 WBC (Bld) 0.3 % 0.0 - 2.0 % [facility] Eosinophils (Bld) [#/Vol] 0.33 10*3/uL [facility] Eosinophils/100 WBC (Bld) 2.8 % 0.0 - 6.0 % [facility] Erythrocyte distribution width (RBC) [Ratio] 15.5 % High 11.5 - 14.5 % [facility] Hematocrit (Bld) [Volume fraction] 32.1 % Low 36.0 - 46.0 % [facility] Hemoglobin (Bld) [Mass/Vol] 9.7 g/dL Low 12.0 - 16.0 g/dL [facility] Immature granulocytes (Bld) [#/Vol] 0.12 10*3/uL [facility] Immature granulocytes/100 WBC (Bld) 1.0 % High 0.0 - 0.9 % [facility] Comment on above: Immature Granulocyte Count (IG) includes promyelocytes, myelocytes and metamyelocytes but does not include bands. Percent differential counts (%) should be interpreted in the context of the absolute cell counts (cells/UL). Interpretation and review of laboratory results Abnormal [facility] Lymphocytes (Bld) [#/Vol] 1.38 10*3/uL [facility] Lymphocytes/100 WBC (Bld) 11.8 % 13.0 - 44.0 % [facility] MCH (RBC) [Entitic mass] 26.5 pg 26.0 - 34.0 pg [facility] MCHC (RBC) [Mass/Vol] 30.2 g/dL Low 32.0 - 36.0 g/dL [facility] MCV (RBC) [Entitic vol] 88 fL 80 - 100 fL [facility] Monocytes (Bld) [#/Vol] 0.80 10*3/uL [facility] Monocytes/100 WBC (Bld) 6.9 % 2.0 - 10.0 % [facility] Neutrophils (Bld) [#/Vol] 8.99 10*3/uL High [facility] Comment on above: Percent differential counts (%) should be interpreted in the context of the absolute cell counts (cells/uL). Neutrophils/100 WBC (Bld) 77.2 % 40.0 - 80.0 % [facility] Nucleated RBC/100 WBC (Bld) [Ratio] 0.0 % [facility] Platelet mean volume (Bld) [Entitic vol] 9.6 fL 7.5 - 11.5 fL [facility] Platelets (Bld) [#/Vol] 287 10*3/uL [facility] RBC (Bld) [#/Vol] 3.66 10*6/uL Low [facility] WBC (Bld) [#/Vol] 11.7 10*3/uL High [facility] Basophils (Bld) [#/Vol] 0.04 x10*3/uL Normal 0.00-0.10 [facility] Comment on above: Performed By: #### 5 7021-8 #### RAUDEL MENJIVAR ([id number]) [facility] ([facility]) [address] [place] [address] Basophils/100 WBC (Bld) 0.3 % Normal 0.0-2.0 [facility] Comment on above: Performed By: #### 5 7021-8 #### RAUDEL MENJIVAR ([id number]) [facility] ([facility]) [address] [place] [address] 25347 Eosinophils (Bld) [#/Vol] 0.33 x10*3/uL Normal 0.00-0.70 [facility] Comment on above: Performed By: #### 5 7021-8 #### RAUDEL MENJIVAR ([id number]) [facility] ([facility]) [address] [place] [address] 98656 Eosinophils/100 WBC (Bld) 2.8 % Normal 0.0-6.0 [facility] Comment on above: Performed By: #### 5 7021-8 #### RAUDEL MENJIVAR ([id number]) [facility] ([facility]) [address] [place] [address] 71490 Erythrocyte distribution width (RBC) [Ratio] 15.5 % High 11.5-14.5 [facility] Comment on above: Performed By: #### 5 7021-8 #### RAUDEL MENJIVAR ([id number]) [facility] ([facility]) [address] [place] [address] Hematocrit (Bld) [Volume fraction] 32.1 % Low 36.0-46.0 [facility] Comment on above: Performed By: #### 5 7021-8 #### RAUDEL MENJIVAR ([id number]) [facility] ([facility]) [address] [place] [address] 35753 Hemoglobin (Bld) [Mass/Vol] 9.7 g/dL Low 12.0-16.0 [facility] Comment on above: Performed By: #### 5 7021-8 #### RAUDEL MENJIVAR ([id number]) [facility] ([facility]) [address] [place] [address] 00871 Immature granulocytes (Bld) [#/Vol] 0.12 x10*3/uL Normal 0.00-0.70 [facility] Comment on above: Performed By: #### 5 7021-8 #### RAUDEL MENJIVAR ([id number]) [facility] ([facility]) [address] [place] [id number] Immature granulocytes/100 WBC (Bld) 1.0 % High 0.0-0.9 [facility] Comment on above: Result Comment: Yuliya ture Granulocyte Count (IG) includes promyelocytes, myelocytes and metamyelocytes but does not include bands. Percent differential counts (%) should be interpreted in the context of the absolute cell counts (cells/UL). Performed By: #### 5 7021-8 #### RAUDEL MENJIVAR ([id number]) [facility] ([facility]) [address] [place] [address] Lymphocytes (Bld) [#/Vol] 1.38 x10*3/uL Normal 1.20-4.80 [facility] Comment on above: Performed By: #### 5 7021-8 #### RAUDEL MENJIVAR ([id number]) [facility] ([facility]) [address] [place] [address] Lymphocytes/100 WBC (Bld) 11.8 % Normal 13.0-44.0 [facility] Comment on above: Performed By: #### 5 7021-8 #### RAUDEL MENJIVAR ([id number]) [facility] ([facility]) [address] [place] [address] MCH (RBC) [Entitic mass] 26.5 pg Normal 26.0-34.0 [facility] Comment on above: Performed By: #### 5 7021-8 #### RAUDEL MENJIVAR ([id number]) [facility] ([facility]) [address] [place], [place] [address] MCHC (RBC) [Mass/Vol] 30.2 g/dL Low 32.0-36.0 [facility] Comment on above: Performed By: #### 5 7021-8 #### RAUDEL MENJIVAR ([id number]) [facility] ([facility]) [address] [place] [address]709 MCV (RBC) [Entitic vol] 88 fL Normal 80-100 [facility] Comment on above: Performed By: #### 5 7021-8 #### RAUDEL MENJIVAR ([id number]) [facility] ([facility]) [address] [place] [address] 99296 Monocytes (Bld) [#/Vol] 0.80 x10*3/uL Normal 0.10-1.00 [facility] Comment on above: Performed By: #### 5 7021-8 #### RAUDEL MENJIVAR ([id number]) [facility] ([facility]) [address] [place] [address] 41120 Monocytes/100 WBC (Bld) 6.9 % Normal 2.0-10.0 [facility] Comment on above: Performed By: #### 5 7021-8 #### RAUDEL MENJIVAR ([id number]) [facility] ([facility]) [address] [place] [address] 03343 Neutrophils (Bld) [#/Vol] 8.99 x10*3/uL High 1.20-7.70 [facility] Comment on above: Result Comment: Perc ent differential counts (%) should be interpreted in the context of the absolute cell counts (cells/uL). Performed By: #### 5 7021-8 #### RAUDEL MENJIVAR ([id number]) [facility] ([facility]) [address] [place] [address] 02711 Neutrophils/100 WBC (Bld) 77.2 % Normal 40.0-80.0 [facility] Comment on above: Performed By: #### 5 7021-8 #### RAUDEL MENJIVAR ([id number]) [facility] ([facility]) [address] [place] [address] 93329 Nucleated RBC/100 WBC (Bld) [Ratio] 0.0 /100 WBCs Normal 0.0-0.0 [facility] Comment on above: Performed By: #### 5 7021-8 #### RAUDEL MENJIVAR ([id number]) [facility] ([facility]) [address] [place] [address] 96398 Platelet mean volume (Bld) [Entitic vol] 9.6 fL Normal 7.5-11.5 [facility] Comment on above: Performed By: #### 5 7021-8 #### RAUDEL MENJIVAR ([id number]) [facility] ([facility]) [address] [place] [address] Platelets (Bld) [#/Vol] 287 x10*3/uL Normal 150-450 [facility] Comment on above: Performed By: #### 5 7021-8 #### RAUDEL MENJIVAR ([id number]) [facility] ([facility]) [address] [place] [address] RBC (Bld) [#/Vol] 3.66 x10*6/uL Low 4.00-5.20 [facility] Comment on above: Performed By: #### 5 7021-8 #### RAUDEL MENJIVAR ([id number]) [facility] ([facility]) [address] [place] [address] WBC (Bld) [#/Vol] 11.7 x10*3/uL High 4.4-11.3 [facility] Comment on above: Performed By: #### 5 7021-8 #### RAUDEL MENJIVAR ([id number]) [facility] ([facility]) [address] [place] [address] CRP [Mass/Vol]on 03-13-2023 Interpretation and review of laboratory results Abnormal [facility] Coagulation surface inducedo n 03-13-2023 aPTT Coag (PPP) [Time] 27 s Normal 27-38 [facility] Comment on above: Order Comment: The A PTT is no longer used for monitoring Unfractionated Heparin Therapy. For monitoring Heparin Therapy, use the Heparin Assay. Performed By: #### 1 4979-9 #### RAUDEL MENJIVAR ([id number]) [facility] ([facility]) [address] [place], [place] [address] Coagulation tissue factor in ducedon 03-13-2023 PT Coag (PPP) [Time] 10.9 s Normal 9.8-12.8 [facility] Comment on above: Performed By: #### 5 902-2 #### RAUDEL MENJIVAR ([id number]) [facility] ([facility]) [address] [place], [place] [address] Hepatic function 2000 panelo n 03-13-2023 Albumin BCP dye [Mass/Vol] 3.2 g/dL Low 3.4 - 5.0 g/dL [facility] ALP [Catalytic activity/Vol] 142 U/L High 33 - 110 U/L [facility] ALT With P-5'-P [Catalytic activity/Vol] 9 U/L 7 - 45 U/L [facility] Comment on above: Patients treated wit h Sulfasalazine may generate falsely decreased results for ALT. AST With P-5'-P [Catalytic activity/Vol] 14 U/L 9 - 39 U/L [facility] Bilirubin [Mass/Vol] 0.7 mg/dL 0.0 - 1 .2 mg/dL [facility] Bilirubin.direct [Mass/Vol] 0.1 mg/dL 0.0 - 0.3 mg/dL [facility] Interpretation and review of laboratory results Abnormal [facility] Protein [Mass/Vol] 6.3 g/dL Low 6.4 - 8.2 g/dL [facility] Albumin BCP dye [Mass/Vol] 3.2 g/dL Low 3.4-5.0 [facility] Comment on above: Performed By: #### 2 4325-3 ####RAUDEL MENJIVAR ([id number])[facility] ([facility])[address] [place] [address] ALP [Catalytic activity/Vol] 142 U/L High 33-110 [facility] Comment on above: Performed By: #### 2 4325-3 ####RAUDEL MENJIVAR ([id number])[facility] ([facility])[address] [place] [address] 90341 ALT With P-5'-P [Catalytic activity/Vol] 9 U/L Normal 7-45 [facility] Comment on above: Result Comment: Monika ents treated with Sulfasalazine may generate falsely decreased results for ALT. Performed By: #### 2 4325-3 ####RAUDEL MENJIVAR ([id number])[facility] ([facility])[address] [place] [address] 46437 AST With P-5'-P [Catalytic activity/Vol] 14 U/L Normal 9-39 [facility] Comment on above: Performed By: #### 2 4325-3 ####RAUDEL MENJIVAR ([id number])[facility] ([facility])[address] [place] [address] 81794 Bilirubin [Mass/Vol] 0.7 mg/dL Normal 0.0-1.2 [facility] Comment on above: Performed By: #### 2 4325-3 ####RAUDEL MENJIVAR ([id number])[facility] ([facility])[address] [place] [address]88 Bilirubin.direct [Mass/Vol] 0.1 mg/dL Normal 0.0-0.3 [facility] Comment on above: Performed By: #### 2 4325-3 ####RAUDEL MENJIVAR ([id number])[facility] ([facility])[address] [place] [address] 32100 Protein [Mass/Vol] 6.3 g/dL Low 6.4-8.2 [facility] Comment on above: Performed By: #### 2 4325-3 ####RAUDEL MENJIVAR ([id number])[facility] ([facility])[address] [place] [address] 50850 Lactateon 03-13-2023 Lactate [Moles/Vol] 0.9 mmol/L 0.4 - 2. 0 mmol/L [facility] Lactate [Moles/Vol] 0.9 mmol/L Normal 0.4-2.0 [facility] Comment on above: Order Comment: Venip uncture immediately after or during the administration of Metamizole may lead to falsely low results. Testing should be performed immediately prior to Metamizole dosing. Performed By: #### 2 524-7 #### RAUDEL MENJIVAR ([id number]) [facility] ([facility]) [address] [place] [address] 04498 Lactate [Moles/Vol]on 2022 Interpretation and review of laboratory results Normal [facility] Venipuncture immediately after or during the administration of Metamizole may lead to falsely low results. Testing should be performed immediately prior to Metamizole dosing. [facility] Magnesiumon 03-13-2023 Magnesium [Mass/Vol] 1.91 mg/dL 1.60 - 2.40 mg/dL [facility] Magnesium [Mass/Vol] 1.91 mg/dL Normal 1.60-2.40 [facility] Comment on above: Performed By: #### 1 9123-9 #### RAUDEL MENJIVAR ([id number]) [facility] ([facility]) [address] [place] [address] Natriuretic peptide B [Mass/ Vol]on 03-13-2023 Interpretation and review of laboratory results Abnormal [facility] Natriuretic peptide B (Bld) [Mass/Vol] 285 pg/mL High 0 - 99 pg/mL [facility] <100 pg/mL - Heart failure unlikely 100-299 pg/mL - Intermediate probability of acute heart failure exacerbation. Correlate with clinical context and patient history. >=300 pg/mL - Heart Failure likely. Correlate with clinical context and patient history. BNP testing is performed using different testing methodology at [facility]. Direct result comparisons should only be made within the same method. [facility] Natriuretic peptide B (Bld) [Mass/Vol] 285 pg/mL High 0-99 [facility] Comment on above: Order Comment: <100 pg/mL - Heart failure unlikely 100-299 pg/mL - Intermediate probability of acute heart failure exacerbation. Correlate with clinical context and patient history. >=300 pg/mL - Heart Failure likely. Correlate with clinical context and patient history. BNP testing is performed using different testing methodology at [facility] than [facility]. Direct result comparisons should only be made within the same method. Performed By: #### 3 0934-4 #### RAUDEL MENJIVAR ([id number]) [facility] ([facility]) [address] [place], [place] [address] No Panel Informationon 03-13 Interpretation and review of laboratory results Abnormal [facility] Interpretation and review of laboratory results Normal [facility] PT Coag (PPP) [Time]Ordered By: Carey Epstein on 10-09-2023 INR Coag (PPP) [Relative time] 1.0 {INR} 0.9 - 1.1 [facility] Interpretation and review of laboratory results Normal [facility] PT Coag (PPP) [Time]on 03-13 INR Coag (PPP) [Relative time] 1.0 Normal 0.9-1.1 [facility] Comment on above: Performed By: #### 5 902-2 #### RAUDEL MENJIVAR ([id number]) [facility] ([facility]) [address] [place] [address] 37803 Phosphateon 03-13-2023 Phosphate [Mass/Vol] 4.1 mg/dL Normal 2.5-4.9 [facility] Comment on above: Result Comment: The performance characteristics of phosphorus testing in heparinized plasma have been validated by the individual laboratory site where testing is performed. Testing on heparinized plasma is not approved by the FDA; however, such approval is not necessary. Performed By: #### 2 777-1 #### RAUDEL MENJIVAR ([id number]) [facility] ([facility]) [facility] [place] [address] Phosphoruson 03-13-2023 Phosphate [Mass/Vol] 4.1 mg/dL 2.5 - 4 .9 mg/dL [facility] Comment on above: The performance miles acteristics of phosphorus testing in heparinized plasma have been validated by the individual laboratory site where testing is performed. Testing on heparinized plasma is not approved by the FDA; however, such approval is not necessary. Protime-INROrdered By: Marilynn Epstein on 03-13-2023 PT Coag (PPP) [Time] 10.9 s [facility] Tropinin I.cardiac panel Hig h sensitivity methodon 03-13-2023 Interpretation and review of laboratory results Normal [facility] Less than 99th percentile of normal range cutoff- Female and children under 18 years old <14 ng/L; Male <21 ng/L: Negative Repeat testing should be performed if clinically indicated. Female and children under 18 years old 14-50 ng/L; Male 21-50 ng/L: Consistent with possible cardiac damage and possible increased clinical risk. Serial measurements may help to assess extent of myocardial damage. >50 ng/L: Consistent with cardiac damage, increased clinical risk and myocardial infarction. Serial measurements may help assess extent of myocardial damage. NOTE: Children less than 1 year old may have higher baseline troponin levels and results should be interpreted in conjunction with the overall clinical context. NOTE: Troponin I testing is performed using a different testing methodology at [facility] than at other [facility]. Direct result comparisons should only be made within the same method. [facility] Troponin I, High Sensitivity on 03-13-2023 Tropinin I.cardiac panel High sensitivity method 6 ng/L 0 - 13 ng/L [facility] Troponin I.cardiac panelon 1 Tropinin I.cardiac panel High sensitivity method 6 ng/L Normal 0-13 [facility] Comment on above: Order Comment: Less than 99th percentile of normal range cutoff- Female and children under 18 years old <14 ng/L; Male <21 ng/L: Negative Repeat testing should be performed if clinically indicated. Female and children under 18 years old 14-50 ng/L; Male 21-50 ng/L: Consistent with possible cardiac damage and possible increased clinical risk. Serial measurements may help to assess extent of myocardial damage. >50 ng/L: Consistent with cardiac damage, increased clinical risk and myocardial infarction. Serial measurements may help assess extent of myocardial damage. NOTE: Children less than 1 year old may have higher baseline troponin levels and results should be interpreted in conjunction with the overall clinical context. NOTE: Troponin I testing is performed using a different testing methodology at [facility] than at other [facility]. Direct result comparisons should only be made within the same method. Performed By: #### 8 9577-1 #### STARKS TIARA ([id number]) [facility] ([facility]) [address] [place] [address] Urinalysis complete W Reflex Culture panel (U)on 03-13-2023 Appearance (U) Clear Clear [facility] Bilirubin (U) [Mass/Vol] Negative NEGATIVE [facility] Color (U) Straw Straw, Yellow [facility] Glucose Auto test strip (U) [Mass/Vol] Negative NEGATIVE mg/dL [facility] Ketones (U) [Mass/Vol] Negative NEGAT JESUS mg/dL [facility] Leukocyte esterase Auto test strip Ql (U) TRACE Abnormal NEGATIVE [facility] Nitrite Auto test strip Ql (U) Negative NEGATIVE [facility] pH (U) 8.0 [pH] 5.0, 5.5, 6.0, 6.5, 7.0, 7.5, 8.0 [facility] Protein (U) [Mass/Vol] Negative NEGAT JESUS mg/dL [facility] RBC (U) [#/Vol] MODERATE (2+) Abnormal NEGATIVE [facility] Specific gravity (U) [Rel density] 1.010 1.005 - 1.035 [facility] Urobilinogen (U) [Mass/Vol] mg/dL NINF - 2.0 mg/dL [facility] Appearance (U) Clear Normal Clear [facility] Comment on above: Performed By: #### 5 8077-9 ####RAUDEL MENJIVAR ([id number])[facility] ([facility])[address] [place] [address] Bilirubin (U) [Mass/Vol] Negative Normal NEGATIVE [facility] Comment on above: Performed By: #### 5 8077-9 ####RAUDEL MENJIVAR ([id number])[facility] ([facility])[address] [place] [address] Color (U) Straw Normal Straw, Yellow [facility] Comment on above: Performed By: #### 5 8077-9 ####RAUDEL MENJIVAR ([id number])[facility] ([facility])[address] [place] [address] Glucose Auto test strip (U) [Mass/Vol] Negative Normal NEGATIVE [facility] Comment on above: Performed By: #### 5 8077-9 ####RAUDEL MENJIVAR ([id number])[facility] ([facility])[address] [place] [address] Ketones (U) [Mass/Vol] Negative Normal NEGATIVE [facility] Comment on above: Performed By: #### 5 8077-9 ####RAUDEL MENJIVAR ([id number])[facility] ([facility])[address] [place] [address] 36527 Leukocyte esterase Auto test strip Ql (U) TRACE Abnormal NEGATIVE [facility] Comment on above: Performed By: #### 5 8077-9 ####RAUDEL MENJIVAR ([id number])[facility] ([facility])[address] [place] [address] 45821 Nitrite Auto test strip Ql (U) Negative Normal NEGATIVE [facility] Comment on above: Performed By: #### 5 8077-9 ####RAUDEL MENJIVAR ([id number])[facility] ([facility])[address] [place] [address] 54144 pH (U) 8.0 [pH] Normal 5.0, 5.5, 6.0, 6.5, 7.0, 7.5, 8.0 [facility] Comment on above: Performed By: #### 5 8077-9 ####RAUDEL MENJIVAR ([id number])[facility] ([facility])[address] [place] [address] Protein (U) [Mass/Vol] Negative Normal NEGATIVE [facility] Comment on above: Performed By: #### 5 8077-9 ####RAUDEL MENJIVAR ([id number])[facility] ([facility])[address] [place], [place] [phone] RBC (U) [#/Vol] MODERATE (2+) Abnormal NEGATIVE [facility] Comment on above: Performed By: #### 5 8077-9 ####RAUDEL MENJIVAR ([id number])[facility] ([facility])[address] [place] [address] 94057 Specific gravity (U) [Rel density] 1.010 Normal 1.005-1.035 [facility] Comment on above: Performed By: #### 5 8077-9 ####RAUDEL MENJIVAR ([id number])[facility] ([facility])[address] [place] [address] 64788 Urobilinogen (U) [Mass/Vol] mg/dL Normal <2.0 [facility] Comment on above: Performed By: #### 5 8077-9 ####RAUDEL MENJIVAR ([id number])[facility] ([facility])[address] [place] [address] 26642 Urinalysis microscopic panel Auto Ql (U)on 03-13-2023 RBC Auto (Urine sed) [#/Area] 11-20 Abnormal NONE, 1-2, 3-5 /HPF [facility] WBC Auto (Urine sed) [#/Area] 1-5 1-5, NONE /HPF [facility] RBC Auto (Urine sed) [#/Area] 11-20 Abnormal NONE, 1-2, 3-5 [facility] Comment on above: Performed By: #### 5 3315-8 ####RAUDEL MENJIVAR ([id number])[facility] ([facility])[address] [place] [address] 53053 WBC Auto (Urine sed) [#/Area] 1-5 Normal 1-5, NONE [facility] Comment on above: Performed By: #### 5 3315-8 ####RAUDEL MENJIVAR ([id number])[facility] ([facility])[address] [place] [address] 21541 XR CHEST 1 VIEWon 03-13-2023 XR CHEST 1 VIEW Interpreted By: Jasen Aguirre, STUDY: XR CHEST 1 VIEW; 03/13/2023 5:17 pm INDICATION: Signs/Symptoms:pre-ecla mpsia. COMPARISON: May 25, [address] and December 14, 2020 chest radiograph ACCESSION NUMBER(S): [id number] ORDERING CLINICIAN: EDY ORELLANA FINDINGS: AP radiograph of the chest was provided. CARDIOMEDIASTINAL SILHOUETTE: Cardiomediastinal silhouette is normal in size and configuration. LUNGS: Lungs are clear. ABDOMEN: No remarkable upper abdominal findings. BONES: No acute osseous changes. IMPRESSION: 1. No evidence of acute cardiopulmonary process. MACRO: None Signed by: Jasen Aguirre 03/13/2023 5:28 PM Dictation workstation: [id number] [facility] XR Chest Single viewon 03-13 1. No evidence of ac kenaitze cardiopulmonary process. MACRO: None Signed by: Jasen Aguirre 03/13/2023 5:28 PM Dictation workstation: [id number] MMODAL Interpreted By: Jasen Aguirre, STUDY: XR CHEST 1 VIEW; 03/13/2023 5:17 pm INDICATION: Signs/Symptoms:pre-ecla mpsia. COMPARISON: May 25, [address] and December 14, 2020 chest radiograph ACCESSION NUMBER(S): [id number] ORDERING CLINICIAN: EDY ORELLANA FINDINGS: AP radiograph of the chest was provided. CARDIOMEDIASTINAL SILHOUETTE: Cardiomediastinal silhouette is normal in size and configuration. LUNGS: Lungs are clear. ABDOMEN: No remarkable upper abdominal findings. BONES: No acute osseous changes. [facility] Jasen Aguirre MD - 03/13/2023 Interpreted By: Jasen Aguirre, STUDY: XR CHEST 1 VIEW; 03/13/2023 5:17 pm INDICATION: Signs/Symptoms:pre-ecla mpsia. COMPARISON: May 25, [address] and December 14, 2020 chest radiograph ACCESSION NUMBER(S): [id number] ORDERING CLINICIAN: EDY ORELLANA FINDINGS: AP radiograph of the chest was provided. CARDIOMEDIASTINAL SILHOUETTE: Cardiomediastinal silhouette is normal in size and configuration. LUNGS: Lungs are clear. ABDOMEN: No remarkable upper abdominal findings. BONES: No acute osseous changes. IMPRESSION: 1. No evidence of acute cardiopulmonary process. MACRO: None Signed by: Jasen Aguirre 03/13/2023 5:28 PM Dictation workstation: [id number] [facility] Work Phone: Radiology Study observation (narrative) [facility] Work Phone: XR Chest Single viewOrdered By: Jasen Aguirre on 03-13-2023 [facility] Work Phone: aPTT Coag (PPP) [Time]on Interpretation and review of laboratory results Normal [facility] Work Phone: The APTT is no longe r used for monitoring Unfractionated Heparin Therapy. For monitoring Heparin Therapy, use the Heparin Assay. [facility] Work Phone: [facility] Work Phone: Absolute lymphocyte countOrd ered By: Yuri Crenshaw on 03-09-2023 Lymphocytes Auto (Unsp spec) [#/Vol] 2.13 10*3/uL 0.83-4.51 [facility] Basophil percentageOrdered B y: Yuri Crenshaw on 03-09-2023 Basophils/100 WBC (Bld) 0.3 % 0-1 [facility] Eosinophils/100 WBC (Bld) 2.0 % 0-5 [facility] Neutrophils (Bld) [#/Vol] 10.3 10*3/uL 2.0-7.7 [facility] Neutrophils/100 WBC (Bld) 73.2 % 47-70 [facility] WBC (Bld) [#/Vol] 14.1 10*3/uL 4.4-11.0 [facility] Blood erythrocytes count (nu mber/volume)Ordered By: Yuri Crenshaw on 03-09-2023 RBC (Bld) [#/Vol] 3.54 10*6/uL 4.2-5.4 [facility] Blood hemoglobin measurement (mass/volume)Ordered By: Yuri Crenshaw on 03-09-2023 Hemoglobin (Bld) [Mass/Vol] 9.4 g/dL 12.0-15.0 [facility] Blood lymphocytes/100 leukoc ytesOrdered By: Yuri Crenshaw on 03-09-2023 Lymphocytes/100 WBC (Bld) 15.1 % 19-41 [facility] Blood monocytes/100 leukocyt esOrdered By: Yuri Crenshaw on 03-09-2023 Monocytes/100 WBC (Bld) 8.1 % 0-10 [facility] Blood platelet mean volumeOr dered By: Yuri Crenshaw on 03-09-2023 Platelet mean volume (Bld) [Entitic vol] 10.9 fL 6.2-12.0 [facility] Determination of erythrocyte mean corpuscular volume (MCV)Ordered By: Yuri Crenshaw on 03-09-2023 MCV (RBC) [Entitic vol] 84.7 fL 81-99 [facility] Hematocrit Auto (Bld) [Volum e fraction]Ordered By: Yuri Crenshaw on 03-09-2023 Hematocrit (Bld) [Volume fraction] 30.0 % 37-47 [facility] Laboratory - Chemistry and C hemistry - challengeon 03-09-2023 Glucose Ql (U) Negative [facility] Laboratory - Hematology and Cell countsOrdered By: Yuri Crenshaw on 03-09-2023 Erythrocyte distribution width (RBC) [Entitic vol] 47.6 fL 35.1-43.9 [facility] Erythrocyte distribution width (RBC) [Ratio] 15.6 % 11.6-14.6 [facility] Immature granulocytes/100 WBC (Bld) 1.300 % 0.0-0.9 [facility] Comment on above: IG% - Immature Granu locytes (promyelocytes, myelocytes and metamyelocytes) > 1% indicates that a LEFT SHIFT is Present. MCH (RBC) [Entitic mass] 26.6 pg 27.0-32.0 [facility] Nucleated RBC/100 WBC (Bld) [Ratio] 0.1 % 0-5 [facility] Laboratory - Urinalysison Protein Ql (U) Negative [facility] MCHC Auto (RBC) [Mass/Vol]Or dered By: Yuri Crenshaw on 03-09-2023 MCHC (RBC) [Mass/Vol] 31.3 g/dL 32-36 [facility] Platelets bldOrdered By: Alexis Crenshaw on 03-09-2023 Platelets (Bld) [#/Vol] 281 10*3/uL 150-450 [facility] Serum Treponema species anti body detectionOrdered By: Yuri Crenshaw on 03-09-2023 Treponema sp Ab Ql (S) Non-Reactive [facility] Basophil percentageOrdered B y: Jeanette Roach on 03-08-2023 Basophil percentage 5-10 SEEN /hpf 0-5 [facility] Bilirubin Test strip Ql (U)O rdered By: Jeanette Roach on 03-08-2023 Bilirubin Ql (U) Negative Negative [facility] Ketones Test strip Ql (U)Ord ered By: Jeanette Roach on 03-08-2023 Ketones Ql (U) 50 mg/dl Negative [facility] Mucus LM Ql (Urine sed)Order ed By: Jeanette Roach on 03-08-2023 Mucus Ql (Urine sed) 0 SEEN /hpf [facility] Nitrite Test strip Ql (U)Ord ered By: Jeanette Roach on 03-08-2023 Nitrite Ql (U) Negative Negative [facility] Protein Test strip Ql (U)Ord ered By: Jeanette Roach on 03-08-2023 Protein Ql (U) 30 mg/dl Negative [facility] Squamous epithelial cells de tection in urine sediment by light microscopyOrdered By: Jeanette Roach on 03-08-2023 Epithelial cells.squamous LM Ql (Urine sed) 5-10 SEEN /hpf 5-10 [facility] Urine blood detectionOrdered By: Jeanette Roach on 03-08-2023 RBC Ql (U) 10 /ul Negative [facility] RBC Ql (U) 0-5 SEEN /hpf 0-5 [facility] Urine clarityOrdered By: Marc Roach on 03-08-2023 Clarity (U) Clear Clear [facility] Urine color determinationOrd ered By: Jeanette Roach on 03-08-2023 Color (U) Yellow Yellow [facility] Urine glucose detectionOrder ed By: Jeanette Roach on 03-08-2023 Glucose Ql (U) Normal mg/dl Normal [facility] Urine leukocyte esterase det ection by dipstickOrdered By: Jeanette Roach on 03-08-2023 Leukocyte esterase Test strip Ql (U) 100 /ul Negative [facility] Urine pHOrdered By: Jeanette silva on 03-08-2023 pH (U) 6.5 [pH] 5.0 - 8.0 [facility] Urine sediment bacteria coun t by microscopy (number/high power field)Ordered By: Jeanette Roach on 03-08-2023 Bacteria LM.HPF (Urine sed) [#/Area] 2 /[HPF] None Seen [facility] Urine specific gravity measu rementOrdered By: Jeanette Roach on 03-08-2023 Specific gravity (U) [Rel density] 1.015 1.002-1.030 [facility] Urobilinogen Auto test strip Ql (U)Ordered By: Jeanette Roach on 03-08-2023 Urobilinogen Ql (U) 4 mg/dl Normal [facility] Laboratory - Chemistry and C hemistry - challengeon 02-28-2023 Glucose Ql (U) Negative [facility] Laboratory - Urinalysison Protein Ql (U) Negative [facility] No Panel InformationOrdered By: Yuri Crenshaw on 02-28-2023 Group B Streptococcus Culture Group B Beta Streptococcus is not isolated. [facility] Basophil percentageOrdered B y: Yuri Crenshaw on 02-18-2023 Bilirubin [Mass/Vol] 1.00 mg/dL 0.20-1.00 [facility] Comment on above: For patients on eltr ombopag therapy, use of Dimension [employer] TBIL is not recommended. Chloride [Moles/Vol] 108 mmol/L 98-107 [facility] Glucose [Mass/Vol] 85 mg/dL 74-106 [facility] Potassium [Moles/Vol] 3.7 mmol/L 3.5-5.1 [facility] Protein [Mass/Vol] 6.1 g/dL 6.4-8.2 [facility] Sodium [Moles/Vol] 137 mmol/L 136-145 [facility] WBC (Bld) [#/Vol] 10.9 10*3/uL 4.4-11.0 [facility] Blood erythrocytes count (nu mber/volume)Ordered By: Yuri Crenshaw on 02-18-2023 RBC (Bld) [#/Vol] 3.36 10*6/uL 4.2-5.4 [facility] Blood hemoglobin measurement (mass/volume)Ordered By: Yuri Crenshaw on 02-18-2023 Hemoglobin (Bld) [Mass/Vol] 9.5 g/dL 12.0-15.0 [facility] Blood platelet mean volumeOr dered By: Yuri Crenshaw on 02-18-2023 Platelet mean volume (Bld) [Entitic vol] 10.5 fL 6.2-12.0 [facility] Determination of erythrocyte mean corpuscular volume (MCV)Ordered By: Yuri Crenshaw on 02-18-2023 MCV (RBC) [Entitic vol] 87.8 fL 81-99 [facility] Gram stain for investigation of transfusion reactionOrdered By: Yuri Crenshaw on 02-18-2023 Microscopic observation Gram stain Nom (Unsp spec) [facility] Hematocrit Auto (Bld) [Volum e fraction]Ordered By: Yuri Crenshaw on 02-18-2023 Hematocrit (Bld) [Volume fraction] 29.5 % 37-47 [facility] Laboratory - Chemistry and C hemistry - challengeOrdered By: Yuri Crenshaw on 02-18-2023 ALP [Catalytic activity/Vol] 144 U/L 45-117 [facility] ALT [Catalytic activity/Vol] 11 U/L 13-56 [facility] CO2 [Moles/Vol] 20.0 mmol/L 21.0-32.0 [facility] Globulin (S) [Mass/Vol] 3.7 g/dL 2.2-4.2 [facility] Urea nitrogen/Creatinine [Mass ratio] 9.5 mg/mg 10-20 [facility] Laboratory - Hematology and Cell countsOrdered By: Yuri Crenshaw on 02-18-2023 Erythrocyte distribution width (RBC) [Entitic vol] 46.6 fL 35.1-43.9 [facility] Erythrocyte distribution width (RBC) [Ratio] 14.6 % 11.6-14.6 [facility] MCH (RBC) [Entitic mass] 28.3 pg 27.0-32.0 [facility] MCHC Auto (RBC) [Mass/Vol]Or dered By: Yuri Crenshaw on 02-18-2023 MCHC (RBC) [Mass/Vol] 32.2 g/dL 32-36 [facility] No Panel InformationOrdered By: Yuri Crenshaw on 02-18-2023 Estimated GFR (MDRD) Amer 172 mL/min >60 [facility] Comment on above: GFR Calc Estimated GFR (MDRD) Non-Af Amer 142 mL/min >60 [facility] Comment on above: Non- GFR Calc Fibrinogen 527 mg/dl 203-444 [facility] Miscellaneous Test See [facility] [place] Comment on above: TEST RESULT LIMITSBi le Acids, Fractionated LCMS Ursodeoxycholic Acids <0.10 umol/L Reference Range: All Ages: <1.9 Cholic Acids 0.90 umol/L Reference Range: All Ages: <2.2 Chenodeoxycholic Acids 1.5 umol/L Reference Range: All Ages: <5.8 Deoxycholic Acids 0.60 umol/L Reference Range: All Ages: <3.3 Total Bile Acids 3.0 umol/L This test was developed and its performance characteristics determined by [facility]. It has not been cleared or approved by the Food and Drug Administration. Reference Range: All Ages: <9.2 TESTING PERFORMED AT [facility]. ORIGINAL REPORT ON FILE IN LAB CONTAINS ADDITIONAL TEST SITE INFORMATION. Vaginal Amniotic Fluid Detection Negative Negative [facility] Comment on above: Amniotic fluid not p resent indicates No Rupture of FetalMembranes at time of specimen collection. Platelets bldOrdered By: Alexis Crenshaw on 02-18-2023 Platelets (Bld) [#/Vol] 278 10*3/uL 150-450 [facility] Serum or plasma albumin edilia urement (mass/volume)Ordered By: Yuri Crenshaw on 02-18-2023 Albumin [Mass/Vol] 2.4 g/dL 3.2-5.0 [facility] Serum or plasma albumin/glob ulin mass ratioOrdered By: Yuri Crenshaw on 02-18-2023 Albumin/Globulin [Mass ratio] 0.6 {ratio} 0.9-2.4 [facility] Serum or plasma calcium edilia urement (mass/volume)Ordered By: Yuri Crenshaw on 02-18-2023 Calcium [Mass/Vol] 8.5 mg/dL 8.5-10.1 [facility] Serum or plasma creatinine m easurement (mass/volume)Ordered By: Yuri Crenshaw on 02-18-2023 Creatinine [Mass/Vol] 0.53 mg/dL 0.55-1.02 [facility] Comment on above: The validity of the calculated GFR & GFRAA in patients over 70 years has not been determined. Clinical correlation is essential. Serum or plasma urea nitroge n measurement (mass/volume)Ordered By: Yuri Crenshaw on 02-18-2023 Urea nitrogen [Mass/Vol] 5 mg/dL 7-18 [facility] Thin prep Papanicolaou smear with manual screeningOrdered By: Yuri Crenshaw on 02-18-2023 Thin prep Papanicolaou smear with manual screening Neisseria or beta-hemolytic Streptococcus isolated. [facility] Thin prep Papanicolaou smear with manual screening 11 U/L 15-37 [facility] Thin prep Papanicolaou smear with manual screening 9 5-15 [facility] Laboratory - Chemistry and C hemistry - challengeon 02-17-2023 Glucose Ql (U) Negative [facility] Laboratory - Urinalysison Protein Ql (U) Negative [facility] Neisseria gonorrhoeae genita l PCROrdered By: Laura Salinas on 02-17-2023 N. gonorrhoeae DNA MAYTE+probe Ql (Genital specimen) [facility] No Panel InformationOrdered By: Laura Salinas on 02-17-2023 Chlamydia trachomatis (PCR) [facility] Laboratory - Chemistry and C hemistry - challengeon 02-02-2023 Glucose Ql (U) Negative [facility] Laboratory - Urinalysison Protein Ql (U) Negative [facility] Absolute lymphocyte countOrd ered By: Love Castillo on 01-30-2023 Lymphocytes Auto (Unsp spec) [#/Vol] 1.57 10*3/uL 0.83-4.51 [facility] Basophil percentageOrdered B y: Love Castillo on 01-30-2023 Basophils/100 WBC (Bld) 0.2 % 0-1 [facility] Bilirubin [Mass/Vol] 1.10 mg/dL 0.20-1.00 [facility] Comment on above: For patients on eltr ombopag therapy, use of Dimension [employer] TBIL is not recommended. Chloride [Moles/Vol] 107 mmol/L 98-107 [facility] Eosinophils/100 WBC (Bld) 0.8 % 0-5 [facility] Glucose [Mass/Vol] 102 mg/dL 74-106 [facility] Comment on above: Fasting Glucose resu lt from 100 to 125 mg/dL suggests IMPAIRED HOMEOSTASIS per A.D.A. criteria. Neutrophils (Bld) [#/Vol] 5.8 10*3/uL 2.0-7.7 [facility] Neutrophils/100 WBC (Bld) 69.8 % 47-70 [facility] Potassium [Moles/Vol] 3.1 mmol/L 3.5-5.1 [facility] Protein [Mass/Vol] 6.4 g/dL 6.4-8.2 [facility] Sodium [Moles/Vol] 138 mmol/L 136-145 [facility] WBC (Bld) [#/Vol] 8.4 10*3/uL 4.4-11.0 [facility] Blood erythrocytes count (nu mber/volume)Ordered By: Love Castillo on 01-30-2023 RBC (Bld) [#/Vol] 3.39 10*6/uL 4.2-5.4 [facility] Blood hemoglobin measurement (mass/volume)Ordered By: Love Castillo on 01-30-2023 Hemoglobin (Bld) [Mass/Vol] 10.1 g/dL 12.0-15.0 [facility] Blood lymphocytes/100 leukoc ytesOrdered By: Love Castillo on 01-30-2023 Lymphocytes/100 WBC (Bld) 18.8 % 19-41 [facility] Blood monocytes/100 leukocyt esOrdered By: Love Castillo on 01-30-2023 Monocytes/100 WBC (Bld) 9.4 % 0-10 [facility] Blood platelet mean volumeOr dered By: Love Castillo on 01-30-2023 Platelet mean volume (Bld) [Entitic vol] 9.8 fL 6.2-12.0 [facility] Determination of erythrocyte mean corpuscular volume (MCV)Ordered By: Love Castillo on 01-30-2023 MCV (RBC) [Entitic vol] 90.3 fL 81-99 [facility] Hematocrit Auto (Bld) [Volum e fraction]Ordered By: Love Castillo on 01-30-2023 Hematocrit (Bld) [Volume fraction] 30.6 % 37-47 [facility] Laboratory - Chemistry and C hemistry - challengeOrdered By: Love Castillo on 01-30-2023 ALP [Catalytic activity/Vol] 99 U/L 45-117 [facility] ALT [Catalytic activity/Vol] 22 U/L 13-56 [facility] CO2 [Moles/Vol] 24.0 mmol/L 21.0-32.0 [facility] Globulin (S) [Mass/Vol] 3.9 g/dL 2.2-4.2 [facility] Urea nitrogen/Creatinine [Mass ratio] 8.4 mg/mg 10-20 [facility] Laboratory - Hematology and Cell countsOrdered By: Love Castillo on 01-30-2023 Erythrocyte distribution width (RBC) [Entitic vol] 46.1 fL 35.1-43.9 [facility] Erythrocyte distribution width (RBC) [Ratio] 14.2 % 11.6-14.6 [facility] Immature granulocytes/100 WBC (Bld) 1.000 % 0.0-0.9 [facility] Comment on above: IG% - Immature Granu locytes (promyelocytes, myelocytes and metamyelocytes) > 1% indicates that a LEFT SHIFT is Present. MCH (RBC) [Entitic mass] 29.8 pg 27.0-32.0 [facility] Nucleated RBC/100 WBC (Bld) [Ratio] 0 % 0-5 [facility] MCHC Auto (RBC) [Mass/Vol]Or dered By: Love Castillo on 01-30-2023 MCHC (RBC) [Mass/Vol] 33.0 g/dL 32-36 [facility] No Panel InformationOrdered By: Love Castillo on 01-30-2023 Estimated GFR (MDRD) Amer 151 mL/min >60 [facility] Comment on above: GFR Calc Estimated GFR (MDRD) Non-Af Amer 124 mL/min >60 [facility] Comment on above: Non- GFR Calc Miscellaneous Test See comment [facility] Comment on above: TEST RESULTS LIMITSB ile Acids, Fractionated LCMSUrsodeoxycholic Acids 0.10 umol/LReference Range:All Ages: <1.9Cholic Acids 0.20 umol/LReference Range:All Ages: <2.2Chenodeoxycholic Acids 0.90 umol/LReference Range:All Ages: <5.8Deoxycholic Acids 0.50 umol/LReference Range:All Ages: <3.3Total Bile Acids 1.7 umol/LThis test was developed and its performance characteristicsdetermined by [facility]. It has not been cleared or approvedby the Food and Drug Administration.Reference Range:All Ages: <9.2 TESTING PERFORMED AT [facility]. ORIGINAL REPORT ON FILE IN LAB CONTAINS ADDITIONAL TEST SITE INFORMATION. No Panel InformationOrdered By: Yuri Crenshaw on 01-30-2023 Hepatitis C Antibody Non-Reactive Nonreactive [facility] Comment on above: Non Reactive: < 0.8 Equivocal: >/= 0.8 to < 1.0 Reactive: >/= 1.0The CDC recommends that a reactive/equivocal HCV antibody result be followed up by the HCV Nucleic Acid Amplificationtest ([id number]) Platelets bldOrdered By: Doug Castillo on 01-30-2023 Platelets (Bld) [#/Vol] 271 10*3/uL 150-450 [facility] Serum hepatitis B virus [place] antibody IgG detectionOrdered By: Yuri Crenshaw on 01-30-2023 HBV surface IgG Ql (S) Non-Reactive [facility] Comment on above: Non Reactive: Incons istent with immunity less than <10 mIU/mL Reactive: Consistent with immunity greater than or equal to 10 mIU/mL Serum or plasma albumin edilia urement (mass/volume)Ordered By: Love Castillo on 01-30-2023 Albumin [Mass/Vol] 2.5 g/dL 3.2-5.0 [facility] Serum or plasma albumin/glob ulin mass ratioOrdered By: Love Castillo on 01-30-2023 Albumin/Globulin [Mass ratio] 0.6 {ratio} 0.9-2.4 [facility] Serum or plasma calcium edilia urement (mass/volume)Ordered By: Love Castillo on 01-30-2023 Calcium [Mass/Vol] 8.6 mg/dL 8.5-10.1 [facility] Serum or plasma creatinine m easurement (mass/volume)Ordered By: Love Castillo on 01-30-2023 Creatinine [Mass/Vol] 0.59 mg/dL 0.55-1.02 [facility] Comment on above: The validity of the calculated GFR & GFRAA in patients over 70 years has not been determined. Clinical correlation is essential. Serum or plasma urea nitroge n measurement (mass/volume)Ordered By: Love Castillo on 01-30-2023 Urea nitrogen [Mass/Vol] 5 mg/dL 7-18 [facility] Thin prep Papanicolaou smear with manual screeningOrdered By: Lovelevar Castillo on 01-30-2023 Thin prep Papanicolaou smear with manual screening 17 U/L 15-37 [facility] Thin prep Papanicolaou smear with manual screening 7 5-15 [facility] Absolute lymphocyte countOrd ered By: ED PROVIDER on 01-23-2023 Lymphocytes Auto (Unsp spec) [#/Vol] 2.06 10*3/uL 0.83-4.51 [facility] Basophil percentageOrdered B y: ED PROVIDER on 01-23-2023 Basophils/100 WBC (Bld) 0.4 % 0-1 [facility] Chloride [Moles/Vol] 105 mmol/L 98-107 [facility] Eosinophils/100 WBC (Bld) 0.9 % 0-5 [facility] Glucose [Mass/Vol] 99 mg/dL 74-106 [facility] Neutrophils (Bld) [#/Vol] 8.5 10*3/uL 2.0-7.7 [facility] Neutrophils/100 WBC (Bld) 72.6 % 47-70 [facility] Potassium [Moles/Vol] 3.3 mmol/L 3.5-5.1 [facility] Sodium [Moles/Vol] 134 mmol/L 136-145 [facility] WBC (Bld) [#/Vol] 11.7 10*3/uL 4.4-11.0 [facility] Blood erythrocytes count (nu mber/volume)Ordered By: ED PROVIDER on 01-23-2023 RBC (Bld) [#/Vol] 3.71 10*6/uL 4.2-5.4 [facility] Blood hemoglobin measurement (mass/volume)Ordered By: ED PROVIDER on 01-23-2023 Hemoglobin (Bld) [Mass/Vol] 10.9 g/dL 12.0-15.0 [facility] Blood lymphocytes/100 leukoc ytesOrdered By: ED PROVIDER on 01-23-2023 Lymphocytes/100 WBC (Bld) 17.5 % 19-41 [facility] Blood monocytes/100 leukocyt esOrdered By: ED PROVIDER on 01-23-2023 Monocytes/100 WBC (Bld) 6.9 % 0-10 [facility] Blood platelet mean volumeOr dered By: ED PROVIDER on 01-23-2023 Platelet mean volume (Bld) [Entitic vol] 9.7 fL 6.2-12.0 [facility] Determination of erythrocyte mean corpuscular volume (MCV)Ordered By: ED PROVIDER on 01-23-2023 MCV (RBC) [Entitic vol] 89.2 fL 81-99 [facility] Hematocrit Auto (Bld) [Volum e fraction]Ordered By: ED PROVIDER on 01-23-2023 Hematocrit (Bld) [Volume fraction] 33.1 % 37-47 [facility] Laboratory - Chemistry and C hemistry - challengeOrdered By: ED PROVIDER on 01-23-2023 CO2 [Moles/Vol] 18.0 mmol/L 21.0-32.0 [facility] Urea nitrogen/Creatinine [Mass ratio] 14.1 mg/mg 10-20 [facility] Laboratory - Hematology and Cell countsOrdered By: ED PROVIDER on 01-23-2023 Erythrocyte distribution width (RBC) [Entitic vol] 44.8 fL 35.1-43.9 [facility] Erythrocyte distribution width (RBC) [Ratio] 13.9 % 11.6-14.6 [facility] Immature granulocytes/100 WBC (Bld) 1.700 % 0.0-0.9 [facility] Comment on above: IG% - Immature Granu locytes (promyelocytes, myelocytes and metamyelocytes) > 1% indicates that a LEFT SHIFT is Present. MCH (RBC) [Entitic mass] 29.4 pg 27.0-32.0 [facility] Nucleated RBC/100 WBC (Bld) [Ratio] 0 % 0-5 [facility] MCHC Auto (RBC) [Mass/Vol]Or dered By: ED PROVIDER on 01-23-2023 MCHC (RBC) [Mass/Vol] 32.9 g/dL 32-36 [facility] No Panel InformationOrdered By: ED PROVIDER on 01-23-2023 Estimated Creatinine Clearance Calc 151.22 ml/min [facility] Estimated GFR (MDRD) Amer 184 mL/min >60 [facility] Comment on above: GFR Calc Estimated GFR (MDRD) Non-Af Amer 152 mL/min >60 [facility] Comment on above: Non- GFR Calc Troponin I High Sensitivity 6 pg/mL 3.0-54.0 [facility] Comment on above: Please Note: New Theo t Units and Gender Specific Reference Ranges. For more information see Policy Stat Procedure [employer] High Sensitivity Troponin (TNIH) and attachments. Platelets bldOrdered By: ED PROVIDER on 01-23-2023 Platelets (Bld) [#/Vol] 310 10*3/uL 150-450 [facility] Serum or plasma calcium edilia urement (mass/volume)Ordered By: ED PROVIDER on 01-23-2023 Calcium [Mass/Vol] 9.4 mg/dL 8.5-10.1 [facility] Serum or plasma creatinine m easurement (mass/volume)Ordered By: ED PROVIDER on 01-23-2023 Creatinine [Mass/Vol] 0.50 mg/dL 0.55-1.02 [facility] Comment on above: The validity of the calculated GFR & GFRAA in patients over 70 years has not been determined. Clinical correlation is essential. Serum or plasma urea nitroge n measurement (mass/volume)Ordered By: ED PROVIDER on 01-23-2023 Urea nitrogen [Mass/Vol] 7 mg/dL 7-18 [facility] Thin prep Papanicolaou smear with manual screeningOrdered By: ED PROVIDER on 01-23-2023 Thin prep Papanicolaou smear with manual screening 11 5-15 [facility] Basophil percentageOrdered B y: Yuri Crenshaw on 01-16-2023 WBC (Bld) [#/Vol] 9.8 10*3/uL 4.4-11.0 [facility] Blood erythrocytes count (nu mber/volume)Ordered By: Yuri Crenshaw on 01-16-2023 RBC (Bld) [#/Vol] 3.16 10*6/uL 4.2-5.4 [facility] Blood hemoglobin measurement (mass/volume)Ordered By: Yuri Crenshaw on 01-16-2023 Hemoglobin (Bld) [Mass/Vol] 9.5 g/dL 12.0-15.0 [facility] Blood platelet mean volumeOr dered By: Yuri Crenshaw on 01-16-2023 Platelet mean volume (Bld) [Entitic vol] 9.9 fL 6.2-12.0 [facility] Chlamydia trachomatis rRNA d etection by probe and target amplification methodOrdered By: Jeanette Roach on 01-16-2023 C. trachomatis rRNA MAYTE+probe Ql (Unsp spec) Positive Negative [facility] Determination of erythrocyte mean corpuscular volume (MCV)Ordered By: Yuri Crenshaw on 01-16-2023 MCV (RBC) [Entitic vol] 92.1 fL 81-99 [facility] Hematocrit Auto (Bld) [Volum e fraction]Ordered By: Yuri Crenshaw on 01-16-2023 Hematocrit (Bld) [Volume fraction] 29.1 % 37-47 [facility] Laboratory - Chemistry and C hemistry - challengeon 01-16-2023 Bilirubin Ql (U) Negative [facility] Glucose Ql (U) Negative [facility] Ketones Ql (U) Small (15+) [facility] Specific gravity (U) [Rel density] 1.010 [facility] Urobilinogen (U) [Mass/Vol] Negative [facility] Laboratory - Hematology and Cell countsOrdered By: Yuri Crenshaw on 01-16-2023 Erythrocyte distribution width (RBC) [Entitic vol] 45.9 fL 35.1-43.9 [facility] Erythrocyte distribution width (RBC) [Ratio] 13.5 % 11.6-14.6 [facility] MCH (RBC) [Entitic mass] 30.1 pg 27.0-32.0 [facility] Laboratory - Hematology and Cell countson 01-16-2023 Hemoglobin Ql (U) Negative [facility] Laboratory - Microbiology an d Antimicrobial susceptibilityOrdered By: Jeanette Roach on 01-16-2023 N. gonorrhoeae DNA MAYTE+probe Ql (Unsp spec) Negative Negative [facility] Comment on above: Performed at: =[address] [id number] Director: Rita Vallecillo MD, Phone: [phone] Laboratory - Specimen inform ationon 01-16-2023 Clarity (U) Clear [facility] Color (U) RED [facility] Laboratory - Urinalysison Nitrite Ql (U) Negative [facility] Protein Ql (U) Negative [facility] MCHC Auto (RBC) [Mass/Vol]Or dered By: Yuri Crenshaw on 01-16-2023 MCHC (RBC) [Mass/Vol] 32.6 g/dL 32-36 [facility] No Panel InformationOrdered By: Jeanette Roach on 01-16-2023 Vaginal Amniotic Fluid Detection Negative Negative [facility] Comment on above: Amniotic fluid not p resent indicates No Rupture of FetalMembranes at time of specimen collection. No Panel Informationon 01-16 POC Bacterial Vaginitis (Rapid) Negative [facility] POC Trichomonas (Rapid) Negative [facility] Urine Leukocytes Positive [facility] Urine Non-Hemolyzed Blood [facility] Platelets bldOrdered By: Alexis Crenshaw on 01-16-2023 Platelets (Bld) [#/Vol] 256 10*3/uL 150-450 [facility] Absolute lymphocyte countOrd ered By: Melissa Saxena on 12-21-2022 Lymphocytes Auto (Unsp spec) [#/Vol] 1.45 10*3/uL 0.83-4.51 [facility] Basophil percentageOrdered B y: Melissa Saxena on 12-21-2022 Basophils/100 WBC (Bld) 0.4 % 0-1 [facility] Bilirubin [Mass/Vol] 0.60 mg/dL 0.20-1.00 [facility] Comment on above: For patients on eltr ombopag therapy, use of Dimension [employer] TBIL is not recommended. Chloride [Moles/Vol] 106 mmol/L 98-107 [facility] Eosinophils/100 WBC (Bld) 2.5 % 0-5 [facility] Glucose [Mass/Vol] 139 mg/dL 74-106 [facility] Comment on above: Fasting Glucose resu lt greater than or equal to 126 mg/dL suggests DIABETES MELLITUS per A.D.A. criteria. Neutrophils (Bld) [#/Vol] 6.8 10*3/uL 2.0-7.7 [facility] Neutrophils/100 WBC (Bld) 73.4 % 47-70 [facility] Potassium [Moles/Vol] 3.6 mmol/L 3.5-5.1 [facility] Protein [Mass/Vol] 6.6 g/dL 6.4-8.2 [facility] Sodium [Moles/Vol] 137 mmol/L 136-145 [facility] WBC (Bld) [#/Vol] 9.3 10*3/uL 4.4-11.0 [facility] Blood erythrocytes count (nu mber/volume)Ordered By: Melissa Saxena on 12-21-2022 RBC (Bld) [#/Vol] 3.61 10*6/uL 4.2-5.4 [facility] Blood hemoglobin measurement (mass/volume)Ordered By: Melissa Saxena on 12-21-2022 Hemoglobin (Bld) [Mass/Vol] 11.0 g/dL 12.0-15.0 [facility] Blood lymphocytes/100 leukoc ytesOrdered By: Melissa Saxena on 12-21-2022 Lymphocytes/100 WBC (Bld) 15.7 % 19-41 [facility] Blood monocytes/100 leukocyt esOrdered By: Melissa Saxena on 12-21-2022 Monocytes/100 WBC (Bld) 6.9 % 0-10 [facility] Blood platelet mean volumeOr dered By: Melissa Saxena on 12-21-2022 Platelet mean volume (Bld) [Entitic vol] 9.7 fL 6.2-12.0 [facility] Determination of erythrocyte mean corpuscular volume (MCV)Ordered By: Melissa Saxena on 12-21-2022 MCV (RBC) [Entitic vol] 93.9 fL 81-99 [facility] Gestational diabetes screen 1-hour screen with 50g oral glucose loadOrdered By: Melissa Saxena on 12-21-2022 Glucose 1 Hr post 50 g glucose PO [Mass/Vol] 139 mg/dL 70-140 [facility] HIV 1 and HIV-2 antibody ass ay with HIV-1 p24 antigen detectionOrdered By: Melissa Saxena on 12-21-2022 HIV 1+2 Ab+HIV1 p24 Ag IA Ql Non-Reactive Nonreactive [facility] Hematocrit Auto (Bld) [Volum e fraction]Ordered By: Melissa Saxena on 12-21-2022 Hematocrit (Bld) [Volume fraction] 33.9 % 37-47 [facility] Laboratory - Chemistry and C hemistry - challengeOrdered By: Melissa Saxena on 12-21-2022 ALP [Catalytic activity/Vol] 79 U/L 45-117 [facility] ALT [Catalytic activity/Vol] 10 U/L 13-56 [facility] CO2 [Moles/Vol] 21.0 mmol/L 21.0-32.0 [facility] Globulin (S) [Mass/Vol] 4.1 g/dL 2.2-4.2 [facility] Urea nitrogen/Creatinine [Mass ratio] 7.8 mg/mg 10-20 [facility] Laboratory - Chemistry and C hemistry - challengeon 12-21-2022 Glucose Ql (U) Negative [facility] Laboratory - Hematology and Cell countsOrdered By: Melissa Saxena on 12-21-2022 Erythrocyte distribution width (RBC) [Entitic vol] 45.7 fL 35.1-43.9 [facility] Erythrocyte distribution width (RBC) [Ratio] 13.3 % 11.6-14.6 [facility] Immature granulocytes/100 WBC (Bld) 1.100 % 0.0-0.9 [facility] Comment on above: IG% - Immature Granu locytes (promyelocytes, myelocytes and metamyelocytes) > 1% indicates that a LEFT SHIFT is Present. MCH (RBC) [Entitic mass] 30.5 pg 27.0-32.0 [facility] Nucleated RBC/100 WBC (Bld) [Ratio] 0 % 0-5 [facility] Laboratory - Urinalysison Protein Ql (U) Negative [facility] MCHC Auto (RBC) [Mass/Vol]Or dered By: Melissa Saxena on 12-21-2022 MCHC (RBC) [Mass/Vol] 32.4 g/dL 32-36 [facility] No Panel InformationOrdered By: Melissa Saxena on 12-21-2022 Estimated GFR (MDRD) Amer 137 mL/min >60 [facility] Comment on above: GFR Calc Estimated GFR (MDRD) Non-Af Amer 113 mL/min >60 [facility] Comment on above: Non- GFR Calc Hepatitis B Surface Antigen Non-Reactive Nonreactive [facility] Hepatitis C Antibody Non-Reactive Nonreactive [facility] Comment on above: Non Reactive: < 0.8 Equivocal: >/= 0.8 to < 1.0 Reactive: >/= 1.0The CDC recommends that a reactive/equivocal HCV antibody result be followed up by the HCV Nucleic Acid Amplificationtest (618383) Rubella IgG Antibody Reactive Nonreactive [facility] Comment on above: Antibody Results Int erpretation of Immune Status Non Reactive Presumed Non-Immune Equivocal Equivocal Reactive Presumed Immune Platelets bldOrdered By: Ivanna Saxena on 12-21-2022 Platelets (Bld) [#/Vol] 280 10*3/uL 150-450 [facility] Serum Treponema species anti body detectionOrdered By: Melissa Saxena on 12-21-2022 Treponema sp Ab Ql (S) Non-Reactive [facility] Serum or plasma albumin edilia urement (mass/volume)Ordered By: Melissa Saxena on 12-21-2022 Albumin [Mass/Vol] 2.5 g/dL 3.2-5.0 [facility] Serum or plasma albumin/glob ulin mass ratioOrdered By: Melissa Saxena on 12-21-2022 Albumin/Globulin [Mass ratio] 0.6 {ratio} 0.9-2.4 [facility] Serum or plasma calcium edilia urement (mass/volume)Ordered By: Melissa Saxena on 12-21-2022 Calcium [Mass/Vol] 8.6 mg/dL 8.5-10.1 [facility] Serum or plasma creatinine m easurement (mass/volume)Ordered By: Melissa Saxena on 12-21-2022 Creatinine [Mass/Vol] 0.64 mg/dL 0.55-1.02 [facility] Comment on above: The validity of the calculated GFR & GFRAA in patients over 70 years has not been determined. Clinical correlation is essential. Serum or plasma urea nitroge n measurement (mass/volume)Ordered By: Melissa Saxena on 12-21-2022 Urea nitrogen [Mass/Vol] 5 mg/dL 7-18 [facility] Thin prep Papanicolaou smear with manual screeningOrdered By: Melissa Saxena on 12-21-2022 Thin prep Papanicolaou smear with manual screening 8 U/L 15-37 [facility] Thin prep Papanicolaou smear with manual screening 10 5-15 [facility] Urine creatinine measurement (mass/volume)Ordered By: Melissa Saxena on 12-21-2022 Creatinine (U) [Mass/Vol] 122.00 mg/dL NO RANGE EST. [facility] Urine protein measurement (m ass/volume)Ordered By: Melissa Saxena on 12-21-2022 Protein (U) [Mass/Vol] 23.1 mg/dL 0.0-11.8 [facility] Urine protein/creatinine mas s ratioOrdered By: Melissa Saxena on 12-21-2022 Protein/Creatinine (U) [Mass ratio] 189 mg/g CRE 0-200 [facility] PT Progress Noteon 3 PT Progress Note No report was sent Normal [facility] Therapy Communicationon 11-04 Therapy Communication Message QUE ESCOBAR no showed today 11/29/22. Pt NCNS to recheck again. Signatures Electronically signed by : Sylvia Calle, PT; Nov 29 2022 9:53AM EST (Author) Normal [facility] Laboratory - Chemistry and C hemistry - challengeon 11-25-2022 Glucose Ql (U) Negative [facility] Laboratory - Urinalysison Protein Ql (U) Negative [facility] PT Progress Noteon PT Progress Note No report was sent [facility] Therapy Communicationon 11-03 Therapy Communication Message QUE ESCOBAR canceled today 11/17/22. Pt cancel recheck today. If she does not return within 30 days she will be d/c from skilled PT per attendance policy. Signatures Electronically signed by : Sylvia Calle PT; Nov 17 2022 10:28AM EST (Author) Normal [facility] Blood type and Indirect anti body screen panel (Bld)on 11-11-2022 ABO group Nom (Bld) A [facility] Rh Nom (Bld) Negative [facility] Comment on above: Review your Rh Negat jesus female patient's potential need for Rh Immune Globulin (RhIg)administration. [facility] CBCon 11-11-2022 Erythrocyte distribution width (RBC) [Ratio] 14.2 % Normal 11.5 - 14.5 [facility] Comment on above: Performed By: #### C BC #### [address] [address] Hematocrit (Bld) [Volume fraction] 33.5 % Low 36.0 - 46.0 [facility] Comment on above: Performed By: #### C BC #### [address] [address] Hemoglobin (Bld) [Mass/Vol] 11.4 g/dL Low 12.0 - 16.0 [facility] Comment on above: Performed By: #### C BC #### [address] [address] MCHC (RBC) [Mass/Vol] 34.0 g/dL Normal 32.0 - 36.0 [facility] Comment on above: Performed By: #### C BC #### [address] [address] MCV (RBC) [Entitic vol] 93 fL Normal 80 - 100 [facility] Comment on above: Performed By: #### C BC #### [address] [address] Platelets (Bld) [#/Vol] 271 10*3/uL Normal 150 - 450 [facility] Comment on above: Performed By: #### C BC #### [address] [address] RBC 3.62 x10E12/L Low 4.00 - 5.20 [facility] Comment on above: Performed By: #### C BC #### [address] [address] WBC (Bld) [#/Vol] 10.5 10*3/uL Normal 4.4 - 11.3 [facility] Comment on above: Performed By: #### C BC #### [address] [address] CBC panel Auto (Bld)on 11-11 Erythrocyte distribution width (RBC) [Ratio] 14.2 % 11.5 - 14.5 % [facility] Hematocrit (Bld) [Volume fraction] 33.5 % Low 36.0 - 46.0 % [facility] Hemoglobin (Bld) [Mass/Vol] 11.4 g/dL Low 12.0 - 16.0 g/dL [facility] Interpretation and review of laboratory results Abnormal [facility] MCHC (RBC) [Mass/Vol] 34.0 g/dL 32.0 - 36.0 g/dL [facility] MCV (RBC) [Entitic vol] 93 fL 80 - 100 fL [facility] Platelets (Bld) [#/Vol] 271 10*3/uL [facility] RBC (Bld) [#/Vol] 3.62 10*6/uL Low [facility] WBC (Bld) [#/Vol] 10.5 10*3/uL [facility] Daily Progress Note - OB-Tri ageon 11-11-2022 Daily Progress Note - OB-Triage Current Stage: Stage: Triage OB Dating: EDC/EGA Final [id number] EGA21.1 Subjective Data: Antepartum Vaginal Bleeding: Yes Movement: Good Antepartum: Patient presents stating that she has had intermittent vaginal bleeding over the last day. Patient states that the bleeding was minimal and she then had intercourse earlier last night. Patient obtains her care in [place]. Objective Information Objective Information: T PRBPMAPSpO2 [id number]% Date/Time11/11 3: 0:256/9 3: 3: 3:48 Range (78 - 115 ) (16 - 16 ) (104 - 107 )/ (64 - 72 ) (77 - 84 ) (97% - 98% ) Physical Exam: Obstetric: Abdomen is soft and nontender per nursing. No blood on perineum noted per nursing. Recent Lab Results Results: CBC: 11/11/2022 01:25 \ Hgb / \ 11.4 L / WBC Plt 10.5 271 / Hct \ / 33.5 L \ RBC: 3.62 L MCV: 93 Radiology Results Results: Impression: Single live intrauterine with ultrasound average gestational age of 21 week and 4 days. Placenta is fundal in location without evidence of placenta previa. Please note the examination was performed for assessment of viability and anatomy is not assessed; correlation with outpatient full anatomic survey is recommended. Ultrasound Pelvis, Uterus and Ovaries [Nov 11 2022 2:30AM] Assessment and Plan: Assessment: 1. Intrauterine at 21 weeks 1 day 2. Vaginal bleeding in the second trimester 3. Probable postcoital bleeding 4. Patient is Rh- OB ultrasound shows the placenta to be fundal. Recent vaginal bleeding is most likely related to recent intercourse. 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 Electronic Signatures for Addendum Section: Andry Rueda) (Signed Addendum 11-Nov-2022 08:36) Patient given recommendation to avoid intercourse for the time being. Electronic Signatures: Andry Rueda) (Signed 11-Nov-2022 07:48) Authored: Current Stage, OB Dating, Subjective Data, Objective Data, Assessment and Plan, Note Completion Last Updated: 11-Nov-2022 08:36 by Andry Rueda) [facility] Laboratory - Blood bankon ABO group Nom (Bld) A [facility] Work Phone: Blood group antibody screen Ql Negative [facility] [place] Work Phone: Rh immune globulin screen (Bld) [Interp] Negative [facility] [place] Work Phone: Comment on above: Review your Rh Negat jesus female patient's potential need for Rh Immune Globulin (RhIg)administration. Laboratory - Hematology and Cell countson 11-11-2022 Erythrocyte distribution width (RBC) [Ratio] 14.2 % See Below [facility] [place] Work Phone: Comment on above: Reference Range: 11. 5 - 14.5 Hematocrit (Bld) [Volume fraction] 33.5 % below low threshold See Below [facility] [place] Work Phone: Comment on above: Reference Range: 36. 0 - 46.0 Hemoglobin (Bld) [Mass/Vol] 11.4 g/dL below low threshold [facility] [place] Work Phone: Comment on above: Reference Range: 12. 0 - 16.0 MCHC (RBC) [Mass/Vol] 34.0 g/dL See Below [facility] [place] Work Phone: Comment on above: Reference Range: 32. 0 - 36.0 MCV (RBC) [Entitic vol] 93 fL 80 - 100 [facility] [place] Work Phone: Platelets (Bld) [#/Vol] 271 10*3/uL 150 - 450 [facility] [place] Work Phone: RBC (Bld) [#/Vol] 3.62 {x10E12/L} below low threshold See Below [facility] Work Phone: Comment on above: Reference Range: 4.0 0 - 5.20 WBC (Bld) [#/Vol] 10.5 10*3/uL 4.4 - 11.3 [facility] Work Phone: No Panel Informationon 11-11 Normal [facility] Work Phone: TYPE + SCREENon 11-11-2022 ABO TYPE A Normal [facility] Comment on above: Performed By: #### T +S #### [address] [address] RH TYPE Negative Normal [facility] Comment on above: Result Comment: Revi ew your Rh Negative female patient's potential need for Rh Immune Globulin (RhIg)administration. Performed By: #### T +S #### [address] [address] Triage Note - OB v4on 2022 Triage Note - OB v4 Triage: General Info: Time of Arrival on [id number] 00:07 Patient arrived viaambulatory Arrived Frommorley Acuity Level2 Time Acuity Level [id number] 00:15 Chief Complaintvaginal bleeding Spoken Language PreferredEnglish Source of Informationpatient Weight in kg78 kilogram(s) Weight in hya637.9 pound(s) Weight Methodactual (measured) Scale Typestanding Height in feet5 feet Height in inches5.94 inch(es) Height in cm167.4 centimeter(s) Height Methodstated BMI (kg/m2)27.834 square meter Blood Avoidance/Restrictionsn one Previous Transfusion Reactionnot applicable Patient Belongingsremains with patient Patient Belongings Remaining with Patientcell phone/electronics; clothing Home Meds have been Reviewed and Verified with Patient/Familyyes Info: Gravida6 Term Deliveries5 Deliveries0 Abortions0 Living Children5 Patient stated [id number] Calculation of EGA based on patient stated EDD21.1 Records availableno Trimester Care Initiatedfirst Care ProviderRiley Vogel Current RisksRh negative, seizure disorder, previous subchorionic hem. @ 8wks- tx RhoGam Previous live (any gestational age)yes All Previous /Delivery Complicationsnone Substance: Smoking Statusmoderate user (uses 11-30 cig/day, OR 0.5-1.5 ppd, OR 2-3 cans/pouches loose leaf tobacco per week, OR 0.5-1.5 vape pods per day) Tobacco Cessation Education (provide if tobacco use within the last 12 mos) patient declined Alcohol Usedenies Drug Usedenies Disposition/Disch: Dispositiondischarged from facility, home with own care Patient Meets Criteria for Home Blood Pressure Monitorno Admission/Observation/D ischarge/Transfer Date/[id number]-[id number]-0438 03:53 Discharge Modeambulatory Transportation Methodprivate car Travel History: Travel or ExposureNO travel to International locations in the past 30 days Additional Information: Information Review: Allergies have been Reviewed and Verified with Patient/Familyyes Allergy, Intolerance, Adverse Event: Allergies: No Known Allergies: Active Intolerances: Flagyl: Drug, Nausea/Vomiting, Active Electronic Signatures: Eleuterio Boone) (Signed 11-Nov-2022 00:34) Authored: General Info, Info, Substance, Travel History, Additional Information Mame Hughes) (Signed 11-Nov-2022 03:58) Authored: Disposition/Disch, Additional Information Last Updated: 11-Nov-2022 03:58 by Mame Hughes (MICHAEL) [facility] US PLACENT LOCon 11-11-2022 US PLACENT LOC Patient Name: QUE ESCOBAR STUDY: US PLACENT LOC 11/11/2022 2:16 am INDICATION: 32 y/o F with vaginal bleeding . COMPARISON: 09/10/2022 ACCESSION NUMBER(S): [id number] ORDERING CLINICIAN: ANDRY RUEDA TECHNIQUE: Transabdominal sonographic grayscale and color images of the pelvis were performed. FINDINGS: There is a single live intrauterine . The presentation is variable. heart rate measures 153 beats per minute. The placenta is fundal in location. No evidence of placenta previa. The cervix is closed and measures 4.7 cm in length. The biparietal diameter measures 5.2 cm, which corresponds to 21 week and 5 day gestational age. The head circumference measures 19.3 cm, which corresponds to 21 week and 4 day gestational age. The abdominal circumference measures 15.9 cm, which corresponds to 21 week and 0 day gestational age. The femur length measures 3.8 cm, which corresponds to 22 week and 1 day gestational age. The ultrasound average gestational age is 21 week and 4 days gestational age. IMPRESSION: Single live intrauterine with ultrasound average gestational age of 21 week and 4 days. Placenta is fundal in location without evidence of placenta previa. Please note the examination was performed for assessment of viability and anatomy is not assessed; correlation with outpatient full anatomic survey is recommended. Electronically signed by: SOUTH NAJERA MD [facility] for pregnancyon 3 Single live intrauterine with ultrasound average gestational age of 21 week and 4 days. Placenta is fundal in location without evidence of placenta previa. Please note the examination was performed for assessment of viability and anatomy is not assessed; correlation with outpatient full anatomic survey is recommended. [facility] Interpreted By: SOUTH NAJERA MD Patient Name: QUE ESCOBAR STUDY: US PLACENT LOC 11/11/2022 2:16 am INDICATION: 32 y/o F with vaginal bleeding . COMPARISON: 09/10/2022 ACCESSION NUMBER(S): [id number] ORDERING CLINICIAN: ANDRY RUEDA TECHNIQUE: Transabdominal sonographic grayscale and color images of the pelvis were performed. FINDINGS: There is a single live intrauterine . The presentation is variable. heart rate measures 153 beats per minute. The placenta is fundal in location. No evidence of placenta previa. The cervix is closed and measures 4.7 cm in length. The biparietal diameter measures 5.2 cm, which corresponds to 21 week and 5 day gestational age. The head circumference measures 19.3 cm, which corresponds to 21 week and 4 day gestational age. The abdominal circumference measures 15.9 cm, which corresponds to 21 week and 0 day gestational age. The femur length measures 3.8 cm, which corresponds to 22 week and 1 day gestational age. The ultrasound average gestational age is 21 week and 4 days gestational age. [facility] South Najera MD - 11/11/2022 Interpreted By: SOUTH NAJERA MD Patient Name: QUE ESCOBAR STUDY: US PLACENT LOC 11/11/2022 2:16 am INDICATION: 32 y/o F with vaginal bleeding . COMPARISON: 09/10/2022 ACCESSION NUMBER(S): [id number] ORDERING CLINICIAN: ANDRY RUEDA TECHNIQUE: Transabdominal sonographic grayscale and color images of the pelvis were performed. FINDINGS: There is a single live intrauterine . The presentation is variable. heart rate measures 153 beats per minute. The placenta is fundal in location. No evidence of placenta previa. The cervix is closed and measures 4.7 cm in length. The biparietal diameter measures 5.2 cm, which corresponds to 21 week and 5 day gestational age. The head circumference measures 19.3 cm, which corresponds to 21 week and 4 day gestational age. The abdominal circumference measures 15.9 cm, which corresponds to 21 week and 0 day gestational age. The femur length measures 3.8 cm, which corresponds to 22 week and 1 day gestational age. The ultrasound average gestational age is 21 week and 4 days gestational age. IMPRESSION: Single live intrauterine with ultrasound average gestational age of 21 week and 4 days. Placenta is fundal in location without evidence of placenta previa. Please note the examination was performed for assessment of viability and anatomy is not assessed; correlation with outpatient full anatomic survey is recommended. [facility] Work Phone: Radiology Study observation (narrative) [facility] Work Phone: US for pregnancyOrdered By: South Najera on 11-11-2022 [facility] Work Phone: PT Progress Noteon 3 PT Progress Note Therapy Diagnosis Assessed Chronic bilateral low back pain with left-sided sciatica (724.2,724.3,338.29) (M54.42,G89.29) Neck pain (723.1) (M54.2) Plan Goals: Goals set and discussed today. Improved gross B GH joint and periscapular musculature strength for increased stability of thoracic and cervical region with completion of ADLs/iADLs-Week 4 Improved painfree cervical AROM flexion and B LF: 45 deg to demonstrate increased painfree functional mobility for ease with ADLs/iADLs.-Week 4 Activity Limitation: Decrease in RACHEL score to 17/50 to demonstrate ease with prolonged standing and ambulation, by week 4 Pain: 6/10 baseline pain of low back and cervical region for ease of sleeping and improved QOL, by week 4 Range Of Motion/Joint Mobility: Improved gross lumbar AROM painfree >/=85% for ease with performance of ADLs/iADLs, by week 4 Strength: Improved gross B hip, knee, and core musculature strength 5/5 MMT for increased stability with standing and ambulation, by week 4 HEP, Patient will demonstrate compliance in their home exercise program in order to promote independence in self management of functional mobility., by week 2 Planned interventions include: aquatic therapy, cryotherapy, education/instruction, home program, kinesiotaping, manual therapy, therapeutic activities and therapeutic exercises. Frequency and duration: 2 time(s) a week, for 4 weeks, for 8 visits. Potential to achieve rehab goals is good Continue with core strengthening/ cervical ROM and STW to allow for improved posture and reduced pain with ADLs. JW. Assessment Patient confirmed name and date of . Focused session on cervical ROM/STW. Patient could tolerate thoracic extension in small range. Patient could tolerate gentle STW and traction with no exacerbation of UE SX. UE Sx recreated with pec stretch. Adult Risk Screening There are no spiritual/cultural practices/values/needs that are important to know Initial Fall Risk Screening: QUE has not fallen in the last 6 months. QUE has a fear of falling. She needs assistance with d/t pain may need assistance. Does not need assistance walking in her home. She does not need assistance in an unfamiliar setting. The patient is not using an assistive device. Fall Risk Screening: Patient is identified as a fall risk. Care Plan: Low Risk: Environmental for all patients and low risk patients: Offer assistance as needed or requested, keep environment free of obstacles, keep floor clean and dry, keep room lighting, wheelchair brakes on, bed/ stretcher locked and in low position if applicable, non-slip footwear if applicable, walker/cane available if needed, side rails up if applicable and pre-emptive toileting. Low: current pain. Please identify location of pain: Low back. Pain Quality: aching. The pain makes it hard for the patient to do these things: walking, sleep and house work. Living Will. Living Will: Living will on file. Healthcare POA: Health care proxy on file. Declaration of Mental Health Treatment: Declaration of mental health treatment on file. Domestic Violence Screen: Does not feel threatened or abused physically, emotionally or sexually. Do you feel UNSAFE? The patient feels safe in the home. Depression/Suicide Screening: During the past 2 weeks, the patient has not felt down, depressed or hopeless. During the past 2 weeks, the patient has not felt little interest or pleasure in doing things. Shukla Learner(s) are identified by the patient as person(s) most likely to participate in providing care, such as managing medications or taking them to doctors? appointments. Primary Language for learning: azerbaijani. Insurance Insurance reviewed Visit number: 3 08/10 Authorization required after evaluation Insurance: [facility] Evaluating therapist: Sharon Baldwin, PT, DPT PT dx: M54.42, M54.2 Precautions: Seizure disorder Onset Date: 2022 Subjective Patient reports:. Patient reports neck/shoulder pain of 8/10, states that she gets pain all the way into her R UE that comes and goes. Reports that her back pain is 7/10. Home program performing as directed: Partially . once a day. Precautions: seizures. Fall Risk: low Patient is Hx of stroke (no traction of cervical region), CVA, PVCs, tachycardia, A-fib. Treatment Time in clinic started at 11:30 Time in clinic ended at 12:15 Total time in clinic is 45 minutes. Total timed code time is 38 minutes. Therapeutic exercise (37727): timed minutes 13, units 1 . 3x20 second each UT 3x20 second each levator scap Thoracic Extension 3 x 5 holds N Chin Tuck 10 x 3 holds N Scap Retraction 10 x 3 holds N Pec Stretch . Manual Therapy (21517): timed minutes 25, units 2 . PROM cervical 5' Gentle STW cervical paraspinals, UTs, LS, Pecs 10' Gentle traction 2'. Aquatic Therapy (58572):. Below not performed; deferred at this time d/t current heart monitor All exercises preformed (more content not included)... [facility] Progress Noteon 3 PT Progress Note No report was sent [facility] PT Progress Note Therapy Diagnosis Assessed Chronic bilateral low back pain with left-sided sciatica (724.2,724.3,338.29) (M54.42,G89.29) Neck pain (723.1) (M54.2) Plan Goals: Goals set and discussed today. Improved gross B GH joint and periscapular musculature strength for increased stability of thoracic and cervical region with completion of ADLs/iADLs-Week 4 Improved painfree cervical AROM flexion and B LF: 45 deg to demonstrate increased painfree functional mobility for ease with ADLs/iADLs.-Week 4 Activity Limitation: Decrease in RACHEL score to 17/50 to demonstrate ease with prolonged standing and ambulation, by week 4 Pain: 6/10 baseline pain of low back and cervical region for ease of sleeping and improved QOL, by week 4 Range Of Motion/Joint Mobility: Improved gross lumbar AROM painfree >/=85% for ease with performance of ADLs/iADLs, by week 4 Strength: Improved gross B hip, knee, and core musculature strength 5/5 MMT for increased stability with standing and ambulation, by week 4 HEP, Patient will demonstrate compliance in their home exercise program in order to promote independence in self management of functional mobility., by week 2 Planned interventions include: aquatic therapy, cryotherapy, education/instruction, home program, kinesiotaping, manual therapy, therapeutic activities and therapeutic exercises. Frequency and duration: 2 time(s) a week, for 4 weeks, for 8 visits. Potential to achieve rehab goals is good Continue with core strengthening to allow for improved tolerance to prolonged standing with ADLs. JW. Assessment Patient confirmed name and date of . Patient was encouraged to mildly engage TrA contraction secondary to , focusing on core control with LE/UE exercises. No increase in pain with UE/LE exercises and reduced pain with unloading. Reviewed Kegel exercises with patient. Adult Risk Screening There are no spiritual/cultural practices/values/needs that are important to know Initial Fall Risk Screening: QUE has not fallen in the last 6 months. QUE has a fear of falling. She needs assistance with d/t pain may need assistance. Does not need assistance walking in her home. She does not need assistance in an unfamiliar setting. The patient is not using an assistive device. Fall Risk Screening: Patient is identified as a fall risk. Care Plan: Low Risk: Environmental for all patients and low risk patients: Offer assistance as needed or requested, keep environment free of obstacles, keep floor clean and dry, keep room lighting, wheelchair brakes on, bed/ stretcher locked and in low position if applicable, non-slip footwear if applicable, walker/cane available if needed, side rails up if applicable and pre-emptive toileting. Low: current pain. Please identify location of pain: Low back. Pain Quality: aching. The pain makes it hard for the patient to do these things: walking, sleep and house work. Living Will. Living Will: Living will on file. Healthcare POA: Health care proxy on file. Declaration of Mental Health Treatment: Declaration of mental health treatment on file. Domestic Violence Screen: Does not feel threatened or abused physically, emotionally or sexually. Do you feel UNSAFE? The patient feels safe in the home. Depression/Suicide Screening: During the past 2 weeks, the patient has not felt down, depressed or hopeless. During the past 2 weeks, the patient has not felt little interest or pleasure in doing things. Hsukla Learner(s) are identified by the patient as person(s) most likely to participate in providing care, such as managing medications or taking them to doctors? appointments. Primary Language for learning: azerbaijani. Insurance Insurance reviewed Visit number: 2 07/13 Authorization required after evaluation Insurance: [facility] Evaluating therapist: Sharon Baldwin PT, DPT PT dx: M54.42, M54.2 Precautions: Seizure disorder Onset Date: 2022 Subjective Patient reports:. Patient reports neck/shoulder pain of 8/10 and low back pain of 7/10. States that she has LE weakness. 5/10 pain levels after session. Home program performing as directed: Partially . not everyday secondary to busyness. Precautions: seizures. Fall Risk: low Patient is Hx of stroke (no traction of cervical region), CVA, PVCs, tachycardia, A-fib. Treatment Time in clinic started at 11:30 Time in clinic ended at 12:15 Total time in clinic is 45 minutes. Total timed code time is 43 minutes. Aquatic Therapy (41461): timed minutes 43, units 3 . All exercises preformed in 70-75% unloading unless noted TrA x10 5? hold/instruction (review) TrA engagement w/each exercise Side Stepping 3 laps Hip flex x10 B/L Hip abd x10 B/L Alt august x10 Squats x10 Heel raises x10 B/L UE Paddles with TrA Level 1 2x10 -flex/ext, push/pull, abd/add, H abd/add 100% Unloading with LG noodle and B UE support -bike 5? -abd/add 5? -hang 5? Gradual exi (more content not included)... Normal [facility] - Chemistry and C hemistry - challengeon 10-28-2022 Glucose Ql (U) Negative [facility] Laboratory - Urinalysison Protein Ql (U) Negative [facility] PT Progress Noteon PT Progress Note No report was sent Normal [facility] Therapy Communicationon 10-04 Therapy Communication Message QUE ESCOBAR canceled today . Signatures Electronically signed by : Katalina Roach PTA; Oct 27 2022 11:42AM EST (Author) Normal [facility] Initial Evaluationon 10-03 PT Initial Evaluation Therapy Diagnosis Assessed Chronic bilateral low back pain with left-sided sciatica (724.2,724.3,338.29) (M54.42,G89.29) Neck pain (723.1) (M54.2) Plan of Care Goals: Goals set and discussed today. Improved gross B GH joint and periscapular musculature strength for increased stability of thoracic and cervical region with completion of ADLs/iADLs-Week 4 Improved painfree cervical AROM flexion and B LF: 45 deg to demonstrate increased painfree functional mobility for ease with ADLs/iADLs.-Week 4 Activity Limitation: Decrease in RACHEL score to 17/50 to demonstrate ease with prolonged standing and ambulation, by week 4 Pain: 6/10 baseline pain of low back and cervical region for ease of sleeping and improved QOL, by week 4 Range Of Motion/Joint Mobility: Improved gross lumbar AROM painfree >/=85% for ease with performance of ADLs/iADLs, by week 4 Strength: Improved gross B hip, knee, and core musculature strength 5/5 MMT for increased stability with standing and ambulation, by week 4 HEP, Patient will demonstrate compliance in their home exercise program in order to promote independence in self management of functional mobility., by week 2 Planned interventions include: aquatic therapy, cryotherapy, education/instruction, home program, kinesiotaping, manual therapy, therapeutic activities and therapeutic exercises. Frequency and duration: 2 time(s) a week, for 4 weeks, for 8 visits. Potential to achieve rehab goals is good Plan of care was developed with input and agreement by the patient. Assessment Que Escobar, a 32 year old female, arrives to outpatient PT c/o low back and neck pain. Pt presents with the following impairments: low back pain, neck pain, deficits in painfree cervical and lumbar AROM, deficits in B hip, knee, core, and B GH joint, and periscapular musculature strength, restriction of lumbopelvic and cervical region, and deficits in functional mobility per RACHEL score. These impairments contribute to difficulty in activity limitations and participation restrictions including standing, ambulation, household duties, sleeping, and community engagement. The pt will benefit from skilled PT services 2x/week for 4 weeks to address the above stated impairments and functional limitations to maximize participation and ease in household, social, and work related activities. The pt has a good prognosis when considering positive factors including age and prior improvement with PT interventions with barriers such as PLOF and chronicity of symptoms. Educated in cervical and lumbar mobility exercises within painfree ROM with good tolerance. HEP handout provided. No change in pain post treatment. The pt verbalized understanding and agreement to goals and POC. Thank you for this referral and please call [phone] with any questions or concerns. Clinical Presentation: Stable and/or uncomplicated characteristics. Level of Complexity: low Problem List: activity limitations, ADLs/IADLs/self care skills, decreased knowledge of HEP, flexibility, gait/locomotion, pain, participation restrictions, posture, range of motion/joint mobility and strength. Reason For Visit Initial Evaluation . Low back pain/Neck pain. Referred by: Davide Chao MD Adult Risk Screening There are no spiritual/cultural practices/values/needs that are important to know Initial Fall Risk Screening: QUE has not fallen in the last 6 months. QUE has a fear of falling. She needs assistance with d/t pain may need assistance. Does not need assistance walking in her home. She does not need assistance in an unfamiliar setting. The patient is not using an assistive device. Fall Risk Screening: Patient is identified as a fall risk. Care Plan: Low Risk: Environmental for all patients and low risk patients: Offer assistance as needed or requested, keep environment free of obstacles, keep floor clean and dry, keep room lighting, wheelchair brakes on, bed/ stretcher locked and in low position if applicable, non-slip footwear if applicable, walker/cane available if needed, side rails up if applicable and pre-emptive toileting. Low: current pain. Pain Scale: On a scale of 0 to 10, the patient rates the pain at 8. Please identify location of pain: Low back. Pain Quality: aching. The pain makes it hard for the patient to do these things: walking, sleep and house work. Living Will. Living Will: Living will on file. Healthcare POA: Health care proxy on file. Declaration of Mental Health Treatment: Declaration of mental health treatment on file. Domestic Violence Screen: Does not feel threatened or abused physically, emotionally or sexually. Do you feel UNSAFE? The patient feels safe in the home. Depression/Suicide Screening: During the past 2 weeks, the patient has not felt down, depressed or hopeless. During the past 2 weeks, the patient has not felt little interest or pleasure in doing things. Shukla Learner(s) are identified by the patient as person(s) most lik (more content not included)... Normal [facility] Thin prep Papanicolaou smear with manual screeningOrdered By: Dr. Saxena on 09-30-2022 Thin prep Papanicolaou smear with manual screening Normal genital kenny isolated [facility] Gram stain for investigation of transfusion reactionOrdered By: Dr. Saxena on 09-29-2022 Microscopic observation Gram stain Nom (Unsp spec) [facility] Gram stain for investigation of transfusion reactionOrdered By: Melissa Saxena on 09-28-2022 Microscopic observation Gram stain Nom (Unsp spec) [facility] Laboratory - Chemistry and C hemistry - challengeon 09-28-2022 Glucose Ql (U) Negative [facility] Laboratory - Urinalysison Protein Ql (U) Negative [facility] Thin prep Papanicolaou smear with manual screeningOrdered By: Melissa Saxena on 09-28-2022 Thin prep Papanicolaou smear with manual screening Normal genital kenny isolated [facility] Provider Note - ED v3on 0 Provider Note - ED v3 Provider Note: Clinical Impression: Chart Review: ED NOTES ED NOTES: HPI: Apparently patient was seen here yesterday for complaints of vaginal bleeding and apparently had a transvaginal ultrasound but patient left AMA before results were in stating she wanted to go get something to eat. On evaluation today she complains of kaleidoscope like vision. She states that she had a stroke about 2 years ago but was nonspecific on the details denying any residual effects. She states that this feels similar to her previous stroke. Patient's ultrasound yesterday shows a 12-week fetus with heart rate of 152. Patient is a negative. Apparently she did have a RhoGAM shot about 6 weeks ago. Patient follows up with Dr. Yuri Fermin out of [place]. She states that she did have some minor vaginal bleeding about 3:00 this afternoon but none since. Medical/Family HX: Physical Exam I have reviewed the triage vital signs. Const: Well nourished, well developed, appears stated age, no acute distress Eyes: PERRL, EOM intact, no conjunctival injection, vision grossly normal HENT: Neck supple without meningismus , Moist mucous membranes, no pharyengeal swelling or exudate CV: Regular rate and rhythm, Warm, well-perfused extremities. Chest non tender RESP: Lungs clear bilaterally, Unlabored respiratory effort GI: soft, non-tender, non-distended, no masses : MSK: No gross deformities appreciated Back: Non tender, no pain with ROM Skin: Warm, dry. No rashes Neuro: Alert and oriented x4, GCS 15 , cosmetic consultant II-XII grossly intact. Sensation and motor function of extremities grossly intact. Psych: Appropriate mood and affect. I have reviewed and confirmed nurses/medics notes for patient past, social and family history. Portions of this note were dictated by speech recognition. An attempt at proof reading was made to minimize errors. Minor errors in block out machine operator may be present. HISTORY OF PRESENTING ILLNESS QUE is a 32 year old Female and was seen by me at 11-Sep-2022 21:05 for a chief complaint of other (vision changes that started 10 min prior to arrival. pt was here yesterday for vaginal bleeding. PT is 12wks with her 6 child. PT is still experiencing stringy vaginal bleeding. RT pupil is slightly larger)(1). Triage Information: Most recent Vital Sign Value Date Heart Rate (beats/min): 80 09-11-2022 20:56 Respirations (breaths/min): 18 09-11-2022 20:56 SpO2 (%): 100 09-11-2022 20:56 BP Systolic (mm Hg): 114 09-11-2022 20:56 BP Diastolic (mm Hg): 77 09-11-2022 20:56 PAST MEDICAL HISTORY ALLERGIES/INTOLERANCES: Allergy Allergen: No Known Allergies Type: Reaction: Intolerance Allergen: Flagyl Type: Drug Reaction: Nausea/Vomiting HEALTH HISTORY: No documented data. OUTPATIENT MEDICATIONS: Home Medications Review Status for Reconciliation: N/A Med Status: Patient Currently Takes Medications Drug Name: 1 oral capsule Instructions: 1 cap(s) orally once a day Drug Name: Valtrex Instructions: 1 cap(s) orally once a day Drug Name: Lexapro 10 mg oral tablet Instructions: 1 tab(s) orally once a day Drug Name: Pepcid 20 mg oral tablet Instructions: 1 tab(s) orally once a day (at bedtime) Drug Name: Motrin 600 mg oral tablet Instructions: 1 tab(s) orally every 6 hours, As Needed Drug Name: Tylenol 325 mg oral capsule Instructions: 3 cap(s) orally every 6 hours, As Needed SIGNIFICANT EVENTS: Infection Control Description:C. Diff Past Medical History Description:TACHYCARDIA Description:H Pylori Description:A fib Description:seizures Description:PVCs Description:stroke Past Surgical History Description:EGD Description:Colonscopy Description:Cholecystec [facility] MDM/ED COURSE: On evaluation patient did not appear to have any obvious visual changes as when asked what time it was she looked at her phone and appeared to be focusing on it with no difficulty. Patient did the [id number] test again with no difficulty showing no obvious sign of vision changes. Based on my clinical exam my concern for CVA is extremely low. Even though the patient is [address] scan of the head will be ordered as a precaution. 2129-I did review the case with her OB, Dr. Crenshaw, who states that patient's RhoGAM shot is good for 12 weeks and should cover 15 L of blood. She is feels that patient does not need further treatment at this time. 2149-patient declined the CAT scan concern for her baby and also stating that her vision has returned to normal. I discussed with her various treatment options at this point she request to be discharged home and she will follow-up with her PCP and discuss outpatient MRI. Patient will be discharged home per her request. As patient has had a benign physical exam to this point I do not feel this is unreason (more content not included)... Normal [facility] ABO/RH GROUP TESTon 09-11-19 23 ABO TYPE A Normal [facility] Comment on above: Performed By: #### A BAY #### [place] [address] RH TYPE Negative Normal [facility] Comment on above: Result Comment: Revi ew your Rh Negative female patient's potential need for Rh Immune Globulin (RhIg)administration. Performed By: #### A BYA #### [place] [address] BASIC METABOLIC PANELon Anion gap [Moles/Vol] 10 mmol/L Normal 10 - 20 [facility] Comment on above: Performed By: #### B MP #### [place] [address] Calcium [Mass/Vol] 8.7 mg/dL Normal 8.6 - 10.3 [facility] Comment on above: Performed By: #### B MP #### [place] [id number] Chloride [Moles/Vol] 103 mmol/L Normal 98 - 107 [facility] Comment on above: Performed By: #### B MP #### [place] [id number] Creatinine [Mass/Vol] 0.56 mg/dL Normal 0.50 - 1.05 [facility] Comment on above: Performed By: #### B MP #### [place] [id number] eGFR FEMALE >90 Normal >90 [facility] Comment on above: Result Comment: CALC ULATIONS OF ESTIMATED GFR ARE PERFORMED USING THE 2020 CKD-EPI STUDY REFIT EQUATION WITHOUT THE RACE VARIABLE FOR THE IDMS-TRACEABLE CREATININE METHODS. https://jasn.asnjournals.org/content/early/ASN.15890 54167 Performed By: #### B MP #### [address] [address] Glucose [Mass/Vol] 84 mg/dL Normal 74 - 99 [facility] Comment on above: Performed By: #### B MP #### [address] [address] HCO3 (Bld) [Moles/Vol] 24 mmol/L Normal 21 - 32 [facility] Comment on above: Performed By: #### B MP #### [address] [address] Potassium [Moles/Vol] 3.8 mmol/L Normal 3.5 - 5.3 [facility] Comment on above: Performed By: #### B MP #### [address] [address] Sodium [Moles/Vol] 133 mmol/L Low 136 - 145 [facility] Comment on above: Performed By: #### B MP #### [address] [address] Urea nitrogen [Mass/Vol] 10 mg/dL Normal 6 - 23 [facility] Comment on above: Performed By: #### B MP #### [address] [address] CBC AND DIFFERENTIALon 09-10 % AUTOMATED IMMATURE GRAN 1.8 % High 0.0 - 0.9 [facility] Comment on above: Result Comment: Yuliya ture Granulocyte Count (IG) includes promyelocytes, myelocytes and metamyelocytes but does not include bands. Percent differential counts (%) should be interpreted in the context of the absolute cell counts (cells/L). Performed By: #### C BCDF #### [address] [address] Basophils (Bld) [#/Vol] 0.03 10*3/uL Normal 0.00 - 0.10 [facility] Comment on above: Performed By: #### C BCDF #### [address] [address] Basophils/100 WBC (Bld) 0.3 % Normal 0.0 - 2.0 [facility] Comment on above: Performed By: #### C BCDF #### [address] [address] Eosinophils (Bld) [#/Vol] 0.31 10*3/uL Normal 0.00 - 0.70 [facility] Comment on above: Performed By: #### C BCDF #### [address] [address] Eosinophils/100 WBC (Bld) 3.4 % Normal 0.0 - 6.0 [facility] Comment on above: Performed By: #### C BCDF #### [address] [address] Erythrocyte distribution width (RBC) [Ratio] 13.0 % Normal 11.5 - 14.5 [facility] Comment on above: Performed By: #### C BCDF #### [address] [address] Hematocrit (Bld) [Volume fraction] 38.5 % Normal 36.0 - 46.0 [facility] Comment on above: Performed By: #### C BCDF #### [address] [address] Hemoglobin (Bld) [Mass/Vol] 13.3 g/dL Normal 12.0 - 16.0 [facility] Comment on above: Performed By: #### C BCDF #### [address] [address] Lymphocytes (Bld) [#/Vol] 2.18 10*3/uL Normal 1.20 - 4.80 [facility] Comment on above: Performed By: #### C BCDF #### [address] [address] Lymphocytes/100 WBC (Bld) 23.9 % Normal 13.0 - 44.0 [facility] Comment on above: Performed By: #### C BCDF #### [address] [address] MCHC (RBC) [Mass/Vol] 34.5 g/dL Normal 32.0 - 36.0 [facility] Comment on above: Performed By: #### C BCDF #### [address] [address] MCV (RBC) [Entitic vol] 88 fL Normal 80 - 100 [facility] Comment on above: Performed By: #### C BCDF #### [address] [address] Monocytes (Bld) [#/Vol] 0.81 10*3/uL Normal 0.10 - 1.00 [facility] Comment on above: Performed By: #### C BCDF #### [address] [address] Monocytes/100 WBC (Bld) 8.9 % Normal 2.0 - 10.0 [facility] Comment on above: Performed By: #### C BCDF #### [address] [address] Neutrophils (Bld) [#/Vol] 5.64 10*3/uL Normal 1.20 - 7.70 [facility] Comment on above: Result Comment: Perc ent differential counts (%) should be interpreted in the context of the absolute cell counts (cells/L). Performed By: #### C BCDF #### [address] [address] Neutrophils/100 WBC (Bld) 61.7 % Normal 40.0 - 80.0 [facility] Comment on above: Performed By: #### C BCDF #### [address] [address] Platelets (Bld) [#/Vol] 253 10*3/uL Normal 150 - 450 [facility] Comment on above: Performed By: #### C BCDF #### [address] [address] RBC 4.39 x10E12/L Normal 4.00 - 5.20 [facility] Comment on above: Performed By: #### C BCDF #### [address] [address] WBC (Bld) [#/Vol] 9.1 10*3/uL Normal 4.4 - 11.3 [facility] Comment on above: Performed By: #### C BCDF #### [address] [address] HCG,BETA-QUANTITATIVEon HCG,BETA-QUANTITATIVE 18554 mIU/mL Abnormal [facility] Comment on above: Result Comment: . Total HCG measurement is performed using the [employer] Interactive Access Immunoassay which detects intact HCG and free beta HCG subunit. . This test is not indicated for use as a tumor marker. HCG testing is performed using a different test methodology at [facility] than other [facility]. Direct result comparison should only be made within the same method. REF VALUES NON FEMALE <5 MALES <5 . Low-level positive HCG results can be seen in early , in jean marie- or post-menopausal females due to normal pituitary HCG production, or with analytic interference. Repeat testing in 48-72 hours can aid in assessing for as results should double in this time period. FSH measurement is recommended in jean marie- or post-menopausal females as concurrent elevation of FSH can support pituitary production as the source of the HCG elevation. Performed By: #### H CGQU #### [address] [address] Provider Note - ED v3on Provider Note - ED v3 Provider Note: Chart Review: ED NOTES ED NOTES: Source of Information: Patient. EMR was reviewed for previous records. HPI: Vaginal bleeding. This 32-year-old right female states that she noted some vaginal bleeding today approximate hour prior to arrival to the ED when she was in the shower. She states that she noted bright red blood with some small clots. She does admit to some back pain though states that she has had back pain for most of her . She did have a lot of cramping yesterday. Patient is Rh- and states that 6 weeks ago she got RhoGAM. Patient states that she is 6 para 5 AB 0. She is seen by Yuri Crenshaw at [place]. Patient states that nothing makes her symptoms better or worse. PMH: atrial fibrillation, PVCs, seizure disorder, stroke, preeclampsia risk PSH: Cholecystectomy Social Hx: The patient denies any use of alcohol or illicit drugs. Patient vapes nicotine. Fam: MEDS: Dose aspirin ALLERGIES: NKDA PHYSICAL EXAM: General: Patient alert, awake, oriented X3, appears to be in no obvious distress, nontoxic, cooperative Skin: Warm. Dry. Intact. No rash. Eyes: PEARTLA, EOMIs intact, sclera white, conjunctiva clear HEENT: Atraumatic. Normo-cephalic. Oral and nasal mucosa pink and moist. Neck: Supple without meningismus, no lymphadenopathy. CV: Regular rate and rhythm without murmurs, heaves, lifts or thrills. Respiratory: Nonlabored breathing. There are no retractions or tachypnea. Lungs are clear to auscultation bilaterally. GI: Soft, nontender, without gross distention, bowel sounds present in all 4 quadrants. There is no pulsatile masses. There is no CVA tenderness. No rebound, rigidity or guarding. MUSC: There is no joint swelling or bony tenderness on exam. Neuro: Cranial nerves II - XII grossly intact. No focal neurologic deficits are noted on exam. Lower extremities: There is no peripheral edema bilaterally, negative Homans sign. No palpable cords. Distal pulses are +2/4 and present in both lower extremities. Psych: Maintains eye contact. Cooperative. ED course: Patient was seen and evaluated due to complaints of vaginal bleeding and is currently 5 weeks . She states that she has had some back pain but she has had back pain with her so far. She states that she had some cramping yesterday but minimal cramping today she does admit to some clots. Patient was ordered blood work, quantitative hCG and blood type she is Rh- and states that 6 weeks ago she had RhoGAM injections. Pelvic ultrasound was ordered and pending. At 2340 I was contacted by nursing staff that the patient wanted to sign out AGAINST MEDICAL ADVICE she felt as though she had waited long enough to get the ultrasound results and would be able to find these results on her cell phone with the shell. I told her that I wanted to talk to her the OB on-call concerning her RhoGAM status to see if she needed another dose because of her vaginal bleeding. She states that she does not believe she needs a and just wants to sign out AMA. Subsequently she signed out AGAINST MEDICAL ADVICE and I strongly recommended to the patient she contact her own OB concerning her RhoGAM status to see if she requires another dose. Patient was discharged after signing AMA form in stable satisfactory condition. This chart was dictated with the use of [employer] software within the framework of the current electronic medical records software. Attempts were made to edit in real time, given time constraints there is the potential for inaccuracies in my dictation. Cheyanne Izaguirre, DO HISTORY OF PRESENTING ILLNESS QUE is a 32 year old Female and was seen by me at 10-Sep-2022 19:51. Triage Information: Most recent Vital Sign Value Date Temp (F): 98.1 09-10-2022 20:15 Temp (C): 36.7 09-10-2022 20:15 Heart Rate (beats/min): 83 09-10-2022 20:15 Respirations (breaths/min): 20 09-10-2022 20:15 SpO2 (%): 99 09-10-2022 20:15 BP Systolic (mm Hg): 102 09-10-2022 20:15 BP Diastolic (mm Hg): 72 09-10-2022 20:15 PAST MEDICAL HISTORY CURRENT OR FORMER SUBSTANCE USE: Tobacco/Nicotine Use: never smoker Alcohol Use: denies Drug Use: denies,Drug 2 Use: daily (Vapes nicotine) ALLERGIES/INTOLERANCES: Allergy Allergen: No Known Allergies Type: Reaction: Intolerance Allergen: Flagyl T (more content not included)... Normal [facility] Risk Screen - Adult Emergenc yon 09-10-2022 Risk Screen - Adult Emergency Preferred Language: Preferred Language: Preferred Language for Discussing Health Care (patient/designee)Patrice fiore Patient Preferred Pharmacy: Patient Preferred Pharmacy Statement: I have reviewed and updated the patient's preferred pharmacy selection for today's visit. Advanced Directives: Advance Directive/DNRno Family Violence Adult: Abuse Screen: Are you or have you been threatened or abused physically, emotionally, or sexually by anyoneno Learning Assessment (Patient): Learning Assessment (Patient): Patient is Able to be Assessed for Learningyes Factors Influencing Readiness to Learninterest in learning Factors that Impact Ability to Learnnone Devices/Methods Used to Communicatenone Learning Preferencesverbal instruction; written material Cultural Considerationsnone Developmental Considerationsnone Mormonism Considerationsnone Learning Assessment (Other Learner): Learning Assessment (Other Learner): Other learner availableno Pressure Injury/TB/Substance: Pressure Injury: Pressure Injury Present on Admissionno Do you have a coughno Smoking Statusoccasional user (use that is infrequent, sporadic, not on a daily basis) Tobacco Cessation Education (provide if tobacco use within the last 12 mos)not applicable Alcohol Usedenies(1) Drug Usedenies (1) Drug 2 Usedaily Vapes nicotine (1) Admission Risk Screen: Significant IndicatorsComplete CAGE: CAGE: Is this an injured patient at a Trauma Center ([facility]/[place]/[place]): no Electronic Signatures: Jessica Tijerina (MICHAEL) (Signed 10-Sep-2022 21:01) Authored: Preferred Language, Patient Preferred Pharmacy, Advanced Directives, Family Violence Adult, Learning Assessment (Patient), Learning Assessment (Other Learner), Pressure Injury/TB/Substance, Pressure Injury, CAGE Last Updated: 10-Sep-2022 21:01 by Jessica Tijerina (MICHAEL) References: 1. Data Referenced From Provider Note - ED v3 10-Sep-2022 20:06 [facility] Triage - EDon 09-10-2022 Triage - ED Quick Triage: Are You yes Have You Given In The Last 6 Weeksno Are You Currently Breastfeedingno The patient and/or guardian verbally acknowledges placement for services into the following (when Urgent Care Service hours are operating):emergency department Chart Review: ARRIVAL INFORMATION Mode of Arrival: private vehicle CHIEF COMPLAINT QUE ESCOBAR is a Female patient with a chief complaint of vaginal bleeding (pt comes to the ER for vaginal bleeding starting around 1900. pt states she was getting in the shower when she noticed. Pt is currently 12wk with her 6th child. Pt was instructed to come to the ER by her OB if she started to bleed. Pt states she is having lower abdominal pain with stringy bleeding from the vagina.). Onset of the Complaint: 10-Sep-2022 19:00 Triage Date/Time: 10-Sep-2022 20:15 NAHUM: 2 Vital Signs: Temperature: 98.1F ( 36.7C) taken temporal Blood Pressure: 102/72 Mean: Heart Rate: 83 Respiratory Rate: 20 Pulse Oximetry: 99% Height: 5 feet 6.00 inches. 167.6 CM Weight: 160.2 pounds. Calculated 72.7 kg. 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 Symptoms Are Negative For: abdominal cramp, edema, fever, vaginal itching, nausea and vaginal discharge. Risk Screens Suicide Risk Screen In the Past Month: Have you wished you were or wished you could go to sleep and not wake up no In the Past Month: Have you had any actual thoughts of killing yourself no In Your Lifetime: Have you ever done anything, started to do anything, or prepared to do anything to end your life no Veras Fall Scale Screening Has the patient fallen before (or is the patient in the ED as a result of a fall) has not had a fall Does the patient have an impaired gait does not have impaired gait Is the patient cognitively impaired not cognitively impaired Interventions: Veras Fall Interventions: LOW INTERVENTIONS: *patient oriented to surroundings and call system, * patient/family falls education completed and documented, *patients fall status communicated during bedside handoff, *whiteboard updated, *mode of toileting discussed with patient, *bed in low position with brakes locked, *call light in reach, * non-skid footwear TRAVEL HISTORY Travel History Coronavirus Screening: no exposure or symptoms Travel Exposure History: NO travel to International locations in the past 30 days PAIN Pain Scale Used: ELVIN Past Medical History: Past Medical History Reviewedyes PVCs: Past Medical History, Active Electronic Signatures: Jessica Tijerina (RN) (Signed 10-Sep-2022 21:00) Authored: Quick Triage, Chart Review Hamlet Jamison (EMT-P) (Signed 10-Sep-2022 20:18) Entered: Risk Screens, Pain, Travel History, Chart Review, Scores, Past Medical History Authored: Quick Triage, Risk Screens, Pain, Travel History, Chart Review, Scores, Past Medical History Last Updated: 10-Sep-2022 21:00 by Jessica Tijerina (RN) Normal [facility] UA MICROSCOPICon 09-10-2022 Mucus Ql (Urine sed) 1+ /LPF Normal [facility] Comment on above: Performed By: #### U AMIC ####[place] [address] RBC 5 /HPF Normal 0-5 [facility] Comment on above: Performed By: #### U AMIC ####[place] [address] SQUAMOUS EPITH. CELLS 2 /HPF Normal [facility] Comment on above: Performed By: #### U AMIC ####[place] [address] WBC 1 /HPF Normal 0-5 [facility] Comment on above: Performed By: #### U AMIC ####[place] [address] URINALYSIS WITH CULTURE IF I NDICATEDon 09-10-2022 Appearance (U) CLEAR Normal CLEAR [facility] Comment on above: Performed By: #### U ARFX #### [place] [address] Bilirubin Ql (U) Negative Normal NEGATIVE [facility] Comment on above: Performed By: #### U ARFX #### [place] [address] Color (U) Yellow Normal STRAW,YELLOW [facility] Comment on above: Performed By: #### U ARFX #### [place] [address] Glucose Ql (U) Negative Normal NEGATIVE [facility] Comment on above: Performed By: #### U ARFX #### [place] [address] Hemoglobin Ql (U) MODERATE(2+) Abnormal NEGATIVE [facility] Comment on above: Performed By: #### U ARFX #### [place] [address] Ketones Ql (U) Negative Normal NEGATIVE [facility] Comment on above: Performed By: #### U ARFX #### [place] [address] Leukocyte esterase Test strip Ql (U) Negative Normal NEGATIVE [facility] Comment on above: Performed By: #### U ARFX #### [place] [address] Nitrite Ql (U) Negative Normal NEGATIVE [facility] Comment on above: Performed By: #### U ARFX #### [place] [address] pH (U) 5.0 [pH] Normal 5.0 - 8.0 [facility] Comment on above: Performed By: #### U ARFX #### [place] [address] Protein Ql (U) Negative Normal NEGATIVE [facility] Comment on above: Performed By: #### U ARFX #### [place] [address] Specific gravity (U) [Rel density] 1.028 Normal 1.005 - 1.035 [facility] Comment on above: Performed By: #### U ARFX #### [place] [address] Urobilinogen (U) [Mass/Vol] mg/dL Normal 0.0 - 1.9 [facility] Comment on above: Performed By: #### U ARFX #### [place] [id number] US AGEon 09-10-2022 US AGE Patient Name: QUE ESCOBAR STUDY: US AGE 409[birth year]10/2022 9:33 pm INDICATION: 32 y/o F with 12 WEEKS / BLEEDING. LMP: Unknown. COMPARISON: None. ACCESSION NUMBER(S): [id number] ORDERING CLINICIAN: CHEYANNE BRIGGS TECHNIQUE: Routine ultrasound of the pelvis was performed. Evaluation of the female pelvis was performed by transabdominal and subsequent transvaginal technique. Static images were obtained for remote interpretation. FINDINGS: Uterus measures 10.8 x 8.9 x 11.1 cm. Single intrauterine at 12 weeks 0 days by gestation. heart tones at 152 beats per minute. Ovaries not well seen IMPRESSION: 1. Single live intrauterine . 2. Estimated gestational age: 12 weeks 0 days. No complications detected. Electronically signed by: EDY BRIGGS MD [facility] Culture, urineOrdered By: Dr Susana Saxena on 08-20-2022 Bacteria identified Cx Nom (U) Culture exhibits no growth. [facility] Cervical or vagninal specime n microscopic examination by cytology stain (reported asOrdered By: Dr. Saxena on 08-17-2022 Cytology report Cyto stain Doc (Cvx/Vag) Comment . [facility] Comment on above: The Pap smear is a s creening test designed to aid in thedetection of premalignant and malignant conditions of theuterine cervix. It is not a diagnostic procedure andshould not be used as the sole means of detecting cervicalcancer. Both false-positive and false-negative reports dooccur. Chlamydia trachomatis rRNA d etection by probe and target amplification methodOrdered By: Dr. Saxena on 08-17-2022 C. trachomatis rRNA MAYTE+probe Ql (Unsp spec) Negative Negative [facility] Detection in cervical specim en of any of human papilloma virus (HPV) 16, 18, 31, 33,Ordered By: Dr. Saxena on 08-17-2022 HPV 16+18+31+33+35+39+45+5 1+52+56+58+59+66+68 DNA Probe+sig amp Ql (Cvx) Negative Negative [facility] Comment on above: This nucleic acid am plification test detects fourteen high- risk HPV types (16,18,31,33,35,39,45,51,52,56,58,59,66,68)without differentiation. Laboratory - CytologyOrdered By: Dr. Saxena on 08-17-2022 Business Supervisor Cyto stain Nom (Cvx/Vag) [ID] Comment . [facility] Comment on above: Lizandro Ferrer Cyt otechnologist (ASCP) Laboratory - Microbiology an d Antimicrobial susceptibilityOrdered By: Dr. Saxena on 08-17-2022 N. gonorrhoeae DNA MAYTE+probe Ql (Unsp spec) Negative Negative [facility] Comment on above: Performed at: =G - L [facility] [address] [id number] Director: Rita Vallecillo MD, Phone: [phone] Laboratory - Miscellaneous t estsOrdered By: Dr. Saxena on 08-17-2022 Service comment (Unsp spec) [Interp] Comment . [facility] Comment on above: This liquid based Th inPrep(R) pap test was screened withthe use of an image guided system. Service comment (Unsp spec) [Interp] . . [facility] Liquid-based cerv Pap + CT/G C by MAYTE w reflex to high-risk HPV for ASCUSOrdered By: Dr. Saxena on 08-17-2022 Cytology report Cyto stain.thin prep Doc (Cvx/Vag) Comment . [facility] Comment on above: Criteria not met, HP V Genotype not performed.Performed at: - [facility] [address] [id number] Director: Rita Vallecillo MD, Phone: [phone] at: = - [facility] [address] [id number] Director: Rita Vallecillo MD, Phone: [phone] No Panel InformationOrdered By: Dr. Saxena on 08-17-2022 Pathology report final diagnosis Narrative Comment . [facility] Comment on above: NEGATIVE FOR INTRAEP ITHELIAL LESION OR MALIGNANCY.CELLULAR CHANGES ASSOCIATED WITH INFLAMMATION ARE PRESENT. COVID-19/INFLUENZA A,B MOLEC ULARon 08-02-2022 SARS-CoV-2 (COVID-19) Ab IA Ql INFLUENZA A (CEPHEID): Not Detected INFLUENZA B (CEPHEID): Not Detected SARS-COV-2 (CEPHEID): Not Detected This test was performed under the FDA's Emergency Use Authorization (EUA). Testing was performed using the Xpert?? Xpress SARS-CoV-2/Flu/RSV plus RT-PCR [facility] Isotopesid assay on the GeneXpert Xpress System. This test has not been approved for use in asymptomatic patients and its performance in this patient population has not been evaluated. Negative results do not rule out the presence of SARS-CoV-2/COVID-19. Fact sheets for this EUA can be found at the following links: For Healthcare Providers: https://www.fda.gov/med ia/898180/download For Patients: https://www.fda.gov/med ia/994654/download [facility] Comment on above: Performed By: #### L [id number] #### [facility] [address] [place], [place] [address] Roberto Cruz M.D. [id number] HCG, Quanton 07-30-2022 HCG, Quant 80689 mIU/mL High <[address] [facility] Comment on above: Result Comment: Non-preg premeno <=5 Postmeno <=8 Male <=3 If HCG results do not concur with clinical observations, additional testing to confirm results is recommended. Performed By: #### B HCG #### [facility] [address] [place] [address] [employer] Adjuster: Osiel Sapp MD HCG, Quantitative, on 07-30-2022 hCG Quant 13953 High NINF [facility] Comment on above: Non-preg premeno <=5 Postmeno <=8 Male <=3 If HCG results do not concur with clinical observations, additional testing to confirm results is recommended. Interpretation and review of laboratory results Abnormal [facility] Serum or plasma choriogonado tropin detectionOrdered By: Dr. Saxena on 07-29-2022 HCG ( test) Ql 9612 mIU/mL <4 [facility] Comment on above: hCG levels with Gest ational AgeGestational Age hCG mIU/mL (IU/L)0.2 - 1 week 5 - 501-2 weeks 50 - 5002-3 weeks 100 - 55624-7 weeks 500 - 600277-0 weeks 1000 - 813259-0 weeks 69630 - 100,0006-8 weeks 42418 - 200,0002-3 months 83483 - 100,000 Cult,Urineon 07-28-2022 Cult,Urine Specimen Description .URINE, MIDSTREAM Culture NO SIGNIFICANT GROWTH Report Status FINAL 07/28/2022 Normal [facility] Comment on above: Performed By: #### U RC #### [facility] [address] [place] [address] [employer] Adjuster: Lucas Olson MD [facility] [address] [place] [address] [employer] Adjuster: Osiel Sapp MD HCG, Quanton 07-28-2022 HCG, Quant 7888 mIU/mL High <5 [facility] Comment on above: Result Comment: Non-preg premeno <=5 Postmeno <=8 Male <=3 If HCG results do not concur with clinical observations, additional testing to confirm results is recommended. Performed By: #### B HCG #### [facility] [address] [place] [address] [employer] Adjuster: Osiel Sapp MD US OB TRANSVAGINALon 023 US OB TRANSVAGINAL TRANSVAGINAL FIRST TRIMESTER OB ULTRASOUND HISTORY: ; size and dates. COMPARISON: None. FINDINGS: The uterus measures 9.4 x 4.0 x 6.9 cm. There is a single intrauterine with only a yolk sac visualized. There is no pole. The gestational sac measures 0.91 cm. There is a question of a subcentimeter subchronic hemorrhage. The right ovary measures 2.4 x 1.2 x 1.2 cm. The left ovary measures 3.1 x 1.6 x 1.6 cm. There is no free fluid seen within the cul-de-sac. IMPRESSION: Single viable intrauterine with only a yolk sac visualized with an estimated sonographic age less than 5 weeks. Question subcentimeter subchorionic hemorrhage. Recommend serial beta hCGs and follow-up ultrasound. Interpreted by: Charles Jay MD Signed by: Charles Jay MD 07/28/22 Final result Normal [facility] Single viable intrauterine with only a yolk sac visualized with an estimated sonographic age less than 5 weeks. Question subcentimeter subchorionic hemorrhage. Recommend serial beta hCGs and follow-up ultrasound. [facility] TRANSVAGINAL FIRST TRIMESTER OB ULTRASOUND HISTORY: ; size and dates. COMPARISON: None. FINDINGS: The uterus measures 9.4 x 4.0 x 6.9 cm. There is a single intrauterine with only a yolk sac visualized. There is no pole. The gestational sac measures 0.91 cm. There is a question of a subcentimeter subchronic hemorrhage. The right ovary measures 2.4 x 1.2 x 1.2 cm. The left ovary measures 3.1 x 1.6 x 1.6 cm. There is no free fluid seen within the cul-de-sac. [facility] Charles Jay MD - 07/28/2022 TRANSVAGINAL FIRST TRIMESTER OB ULTRASOUND HISTORY: ; size and dates. COMPARISON: None. FINDINGS: The uterus measures 9.4 x 4.0 x 6.9 cm. There is a single intrauterine with only a yolk sac visualized. There is no pole. The gestational sac measures 0.91 cm. There is a question of a subcentimeter subchronic hemorrhage. The right ovary measures 2.4 x 1.2 x 1.2 cm. The left ovary measures 3.1 x 1.6 x 1.6 cm. There is no free fluid seen within the cul-de-sac. IMPRESSION: Single viable intrauterine with only a yolk sac visualized with an estimated sonographic age less than 5 weeks. Question subcentimeter subchorionic hemorrhage. Recommend serial beta hCGs and follow-up ultrasound. [facility] Work Phone: Radiology Study observation (narrative) [facility] Work Phone: OB TRANSVAGINALOrdered By : Charles Jay on 07-28-2022 [employer] Work Phone: hCG, Quantitative, on 07-28-2022 hCG Quant 7888 High NINF [facility] Comment on above: Non-preg premeno <=5 Postmeno <=8 Male <=3 If HCG results do not concur with clinical observations, additional testing to confirm results is recommended. Interpretation and review of laboratory results Abnormal [facility] CBC with Diffon 07-26-2022 Abs. Basophil 0.00 k/uL Normal 0.0-0.2 [facility] Comment on above: Performed By: #### C DP, CP #### [facility] [address] [place], [place] [id number] [employer] Adjuster: Osiel Sapp MD Abs.Neutrophil (Seg) 5.10 k/uL Normal 2.5-7.0 [facility] Comment on above: Performed By: #### C DP, CP #### [facility] [address] [place] [address] [employer] Adjuster: Osiel Sapp MD Auto Diff Performed YES Normal [facility] Comment on above: Performed By: #### C DP, CP #### [facility] [address] [place] [address] [employer] Adjuster: Osiel Sapp MD Basophils/100 WBC (Bld) 0 % Normal 0-2 [facility] Comment on above: Performed By: #### C DP, CP #### [facility] [address] [place] [address] [employer] Adjuster: Osiel Sapp MD Eosinophils (Bld) [#/Vol] 0.30 10*3/uL Normal 0.0-0.4 [facility] Comment on above: Performed By: #### C DP, CP #### [facility] [address] [place], [place] [id number] [employer] Adjuster: Osiel Sapp MD Eosinophils/100 WBC (Bld) 3 % Normal 0-5 [facility] Comment on above: Performed By: #### C DP, CP #### [facility] [address] [place] [address] [employer] Adjuster: Osiel Sapp MD Erythrocyte distribution width (RBC) [Ratio] 13.1 % Normal 12.1-15.2 [facility] Comment on above: Performed By: #### C DP, CP #### [facility] [address] [place] [address] [employer] Adjuster: Osiel Sapp MD Hematocrit (Bld) [Volume fraction] 41.1 % Normal 36-46 [facility] Comment on above: Performed By: #### C DP, CP #### [facility] [address] [place] [id number] [employer] Adjuster: Osiel Sapp MD Hemoglobin (Bld) [Mass/Vol] 14.0 g/dL Normal 12.0-16.0 [facility] Comment on above: Performed By: #### C DP, CP #### [facility] [address] [place] [id number] [employer] Adjuster: Osiel Sapp MD Lymphocytes (Bld) [#/Vol] 2.40 10*3/uL Normal 1.0-4.8 [facility] Comment on above: Performed By: #### C DP, CP #### [facility] [address] [place] [address] [employer] Adjuster: Osiel Sapp MD Lymphocytes/100 WBC (Bld) 28 % Normal 15-40 [facility] Comment on above: Performed By: #### C DP, CP #### [facility] [address] [place] [id number] [employer] Adjuster: Osiel Sapp MD MCH (RBC) [Entitic mass] 30.3 pg Normal 26-34 [facility] Comment on above: Performed By: #### C DP, CP #### [facility] [address] [place] [address] [employer] Adjuster: Osiel Sapp MD MCHC (RBC) [Mass/Vol] 34.0 g/dL Normal 31-37 [facility] Comment on above: Performed By: #### C DP, CP #### [facility] [address] [place] [address] [employer] Adjuster: Osiel Sapp MD MCV (RBC) [Entitic vol] 89.2 fL Normal 80-100 [facility] Comment on above: Performed By: #### C DP, CP #### [facility] [address] [place], [place] [id number] (084) [employer] Adjuster: Osiel Sapp MD Monocytes (Bld) [#/Vol] 0.60 10*3/uL Normal 0.0-1.0 [facility] Comment on above: Performed By: #### C DP, CP #### [facility] [address] [place] [address] [employer] Adjuster: Osiel Sapp MD Monocytes/100 WBC (Bld) 7 % Normal 4-8 [facility] Comment on above: Performed By: #### C DP, CP #### [facility] [address] [place] [address] [employer] Adjuster: Osiel Sapp MD Neutrophil (Seg) 62 % Normal 47-75 [facility] Comment on above: Performed By: #### C DP, CP #### [facility] [address] [place] [address] [employer] Adjuster: Osiel Sapp MD Platelets (Bld) [#/Vol] 276 10*3/uL Normal 140-450 [facility] Comment on above: Performed By: #### C DP, CP #### [facility] [address] [place], [place] [address] [employer] Adjuster: Osiel Sapp MD RBC (Bld) [#/Vol] 4.61 10*6/uL Normal 4.0-5.2 [facility] Comment on above: Performed By: #### C DP, CP #### [facility] [address] [place], [place] [id number] (933) [employer] Adjuster: Osiel Sapp MD WBC (Bld) [#/Vol] 8.3 10*3/uL Normal 3.5-11.0 [facility] Comment on above: Performed By: #### C DP, CP #### [facility] [address] [place] [address] [employer] Adjuster: Osiel Sapp MD Comp Metabolic Profon 2022 Albumin [Mass/Vol] 4.3 g/dL Normal 3.5-5.2 [facility] Comment on above: Performed By: #### C DP, CP #### [facility] [address] [place] [address] [employer] Adjuster: Osiel Sapp MD Alkaline Phos 115 U/L High 35-104 [facility] Comment on above: Performed By: #### C DP, CP #### [facility] [address] [place] [address] [employer] Adjuster: Osiel Sapp MD ALT [Catalytic activity/Vol] 16 U/L Normal 5-33 [facility] Comment on above: Performed By: #### C DP, CP #### [facility] [address] [place], [place] [id number] [employer] Adjuster: Osiel Sapp MD Anion gap [Moles/Vol] 12 mmol/L Normal 9-17 [facility] Comment on above: Performed By: #### C DP, CP #### [facility] [address] [place], [place] [id number] [employer] Adjuster: Osiel Sapp MD AST [Catalytic activity/Vol] 17 U/L Normal <32 [facility] Comment on above: Performed By: #### C DP, CP #### [facility] [address] [place] [address] [employer] Adjuster: Osiel Sapp MD Bilirubin [Mass/Vol] 0.6 mg/dL Normal 0.3-1.2 [facility] Comment on above: Performed By: #### C DP, CP #### [facility] [address] [place], [place] [id number] [employer] Adjuster: Osiel Sapp MD BUN/CRE Ratio 13 Normal 9-20 [facility] Comment on above: Performed By: #### C DP, CP #### [facility] [address] [place], [place] [id number] [employer] Adjuster: Osiel Sapp MD Calcium [Mass/Vol] 9.1 mg/dL Normal 8.6-10.4 [facility] Comment on above: Performed By: #### C DP, CP #### [facility] [address] [place], [place] [id number] [employer] Adjuster: Osiel Sapp MD Chloride [Moles/Vol] 99 mmol/L Normal 98-107 [facility] Comment on above: Performed By: #### C DP, CP #### [facility] [address] [place], [place] [id number] [employer] Adjuster: Osiel Sapp MD CO2 [Moles/Vol] 20 mmol/L Normal 20-31 [facility] Comment on above: Performed By: #### C DP, CP #### [facility] [address] [place] [place], [place] [id number] [employer] Adjuster: Osiel Sapp MD Creatinine [Mass/Vol] 0.82 mg/dL Normal 0.50-0.90 [facility] Comment on above: Performed By: #### C DP, CP #### [facility] [address] [place], [place] [address] [employer] Adjuster: Osiel Sapp MD GFR/1.73 sq M.predicted among non-blacks MDRD (S/P/Bld) [Vol rate/Area] mL/min/{1.73_m2} Normal >60 [facility] Comment on above: Result Comment: These results are not intended for use in patients <18 years of age. eGFR results are calculated without a race factor using the 2020 CKD-EPI equation. Careful clinical correlation is recommended, particularly when comparing to results calculated using previous equations. The CKD-EPI equation is less accurate in patients with extremes of muscle mass, extra-renal metabolism of creatine, excessive creatine ingestion, or following therapy that affects renal tubular secretion. Performed By: #### C DP, CP #### [facility] [address] [place] [address] [employer] Adjuster: Osiel Sapp MD Glucose [Mass/Vol] 91 mg/dL Normal 70-99 [facility] Comment on above: Performed By: #### C DP, CP #### [facility] [address] [place] [address] [employer] Adjuster: Osiel Sapp MD Potassium [Moles/Vol] 3.7 mmol/L Normal 3.7-5.3 [facility] Comment on above: Performed By: #### C DP, CP #### [facility] [address] [place] [address] [employer] Adjuster: Osiel Sapp MD Protein [Mass/Vol] 7.2 g/dL Normal 6.4-8.3 [facility] Comment on above: Performed By: #### C DP, CP #### [facility] [address] [place] [address] [employer] Adjuster: Osiel Sapp MD Sodium [Moles/Vol] 131 mmol/L Low 135-144 [facility] Comment on above: Performed By: #### C DP, CP #### [facility] [address] [place] [address] [employer] Adjuster: Osiel Sapp MD Urea nitrogen [Mass/Vol] 11 mg/dL Normal 6-20 [facility] Comment on above: Performed By: #### C DP, CP #### [facility] [address] [place] [address] [employer] Adjuster: Osiel Sapp MD HCG, ,Urineon 07-26 Beta HCG ( test) Ql (U) Positive Abnormal NEG [facility] Comment on above: Result Comment: If H CG results do not concur with clinical observations, additional testing to confirm result is recommended. This test is not labeled for use as a tumor marker. Performed By: #### U A, FRANCCG, UMICAO #### [facility] [address] [place] [address] [employer] Adjuster: Osiel Sapp MD HCG, Quanton 07-26-2022 HCG, Quant 5174 mIU/mL High <5 [facility] Comment on above: Result Comment: Non-preg premeno <=5 Postmeno <=8 Male <=3 If HCG results do not concur with clinical observations, additional testing to confirm results is recommended. Performed By: #### B HCG #### [facility] [address] [place] [address] [employer] Adjuster: Osiel Sapp MD Urinalysis, Routineon 2022 Bilirubin, SemiQt,Ur Negative Normal NEG [facility] Comment on above: Performed By: #### U A, [facility] UMICAO #### [facility] [address] [place] [address] [employer] Adjuster: Osiel Sapp MD Blood, Urine Negative Normal NEG [facility] Comment on above: Performed By: #### U A, CG, UMICAO #### [facility] [address] [place] [address] [employer] Adjuster: Osiel Sapp MD Clarity (U) Clear Normal CLEAR [facility] Comment on above: Performed By: #### U A, [facility], UMICAO #### [facility] [address] [place] [address] [employer] Adjuster: Osiel Sapp MD Color (U) Yellow Normal YEL [facility] Comment on above: Performed By: #### U A, UHCG, UMICAO #### [facility] [address] [place], [place] [id number] [employer] Adjuster: Osiel Sapp MD Comment Normal [facility] Comment on above: Performed By: #### U A [facility] ZANEO #### [facility] [address] [place] [address] [employer] Adjuster: Osiel Sapp MD Glucose Ql (U) Negative Normal NEG [facility] Comment on above: Performed By: #### U A, [facility] UMICAO #### [facility] [address] [place] [address] [employer] Adjuster: Osiel Sapp MD Ketones Ql (U) TRACE Abnormal NEG [facility] Comment on above: Performed By: #### U Renee [facility] ZANEO #### [facility] [address] [place] [address] [employer] Adjuster: Osiel Sapp MD Leukocyte esterase Test strip Ql (U) 1+ Abnormal NEG [facility] Comment on above: Performed By: #### U Renee [facility] ZANEO #### [facility] [address] [place] [address] [employer] Adjuster: Osiel Sapp MD Nitrite,Ur Negative Normal NEG [facility] Comment on above: Performed By: #### U A [facility] ZANE[facility] #### [facility] [address] [place] [address] [employer] Adjuster: Osiel Sapp MD PH,Ur 5.0 Normal 5.0-8.0 [facility] Comment on above: Performed By: #### U A [facility], UMLOR[facility]O #### [facility] [address] [place] [address] [employer] Adjuster: Osiel Sapp MD Protein Ql (U) TRACE Abnormal NEG [facility] Comment on above: Performed By: #### U A, UHCG, UMICAO #### [facility] [address] [place] [address] [employer] Adjuster: Osiel Sapp MD Spec. [place],Ur 1.025 Normal 1.005-1.030 [facility] Comment on above: Performed By: #### U A, UHCG, UMICAO #### [facility] [address] [place] [address] [employer] Adjuster: Osiel Sapp MD Urobilinogen,Ur Normal Normal NORM [facility] Comment on above: Performed By: #### U A, [facility], UMICAO #### [facility] [address] [place] [address] [employer] Adjuster: Osiel Sapp MD Urinalysis,Microon 3 ----- Normal [facility] Comment on above: Performed By: #### U A, [facility], UMICAO #### [facility] [address] [place] [address] [employer] Adjuster: Osiel Sapp MD Bacteria RARE Abnormal NONE [facility] Comment on above: Performed By: #### U A, [facility], UMICAO #### [facility] [address] [place], [place] [id number] [employer] Adjuster: Osiel Sapp MD Urine RBC's 0 TO 2 Normal 0-2 [facility] Comment on above: Performed By: #### U A, [facility], UMICAO #### [facility] [address] [place], [place] [id number] [employer] Adjuster: Osiel Sapp MD Urine WBC's 2 TO 5 Normal 0 [facility] Comment on above: Performed By: #### U A, CG, UMICAO #### [facility] [address] [place] [address] [employer] Adjuster: Osiel Sapp MD CT LUMBAR SPINE WO CONTRASTo n 07-14-2022 CT LUMBAR SPINE WO CONTRAST EXAMINATION:CT LUMBAR SPINE WO CONTRAST HISTORY:Reason for exam:->back pain with sciatica COMPARISON:None TECHNIQUE:Multiple thin section transaxial slices were acquired through the lumbar spine without contrast. Coronal and sagittal reconstructed images were reviewed. FINDINGS: There is normal alignment of the lumbar spine without spondylolisthesis. No acute compression fractures are noted. The disc spaces are well-maintained. Surrounding paraspinal soft tissues are grossly unremarkable. IMPRESSION: Unremarkable CT examination of the lumbar spine. Interpreted by: Ashly Miles DO Signed by: Ashly Miles DO 07/14/22 Final result Normal [facility] Unremarkable CT examination of the lumbar spine. [facility] EXAMINATION:CT LUMBA R SPINE WO CONTRAST HISTORY:Reason for exam:->back pain with sciatica COMPARISON:None TECHNIQUE:Multiple thin section transaxial slices were acquired through the lumbar spine without contrast. Coronal and sagittal reconstructed images were reviewed. FINDINGS: There is normal alignment of the lumbar spine without spondylolisthesis. No acute compression fractures are noted. The disc spaces are well-maintained. Surrounding paraspinal soft tissues are grossly unremarkable. [facility] Ashly Miles DO - 07/14/2022 EXAMINATION:CT LUMBAR SPINE WO CONTRAST HISTORY:Reason for exam:->back pain with sciatica COMPARISON:None TECHNIQUE:Multiple thin section transaxial slices were acquired through the lumbar spine without contrast. Coronal and sagittal reconstructed images were reviewed. FINDINGS: There is normal alignment of the lumbar spine without spondylolisthesis. No acute compression fractures are noted. The disc spaces are well-maintained. Surrounding paraspinal soft tissues are grossly unremarkable. IMPRESSION: Unremarkable CT examination of the lumbar spine. [employer] [facility] Work Phone: CT LUMBAR SPINE WO CONTRASTO rdered By: Ashly Miles on 07-14-2022 [facility] Work Phone: HCG, ,Urineon 07-14 Beta HCG ( test) Ql (U) Negative Normal NEG [facility] Comment on above: Performed By: #### U HCG ####[facility] [address] [place] [address] lab Director: Osiel Sapp MD CT LUMBAR SPINE WO CONTRASTo n 07-13-2022 Radiology Study observation (narrative) [facility] Work Phone: Urine Preg (Lab)on 3 Beta HCG ( test) Ql (U) Negative NEGATIVE [facility] COVID-19/INFLUENZA A,B MOLEC ULARon 05-09-2022 SARS-CoV-2 (COVID-19) Ab IA Ql INFLUENZA A (CEPHEID): Detected INFLUENZA B (CEPHEID): Not Detected SARS-COV-2 (CEPHEID): Not Detected This test was performed under the FDA's Emergency Use Authorization (EUA). Testing was performed using the Xpert?? Xpress SARS-CoV-2/Flu/RSV plus RT-PCR Cepheid assay on the [employer] Xpress System. This test has not been approved for use in asymptomatic patients and its performance in this patient population has not been evaluated. Negative results do not rule out the presence of SARS-CoV-2/COVID-19. Fact sheets for this EUA can be found at the following links: For Healthcare Providers: https://www.fda.gov/med ia/707583/download For Patients: https://www.fda.gov/med ia/538957/download [facility] Comment on above: Performed By: #### L [id number] #### [facility] [address] [place], [place] [address] Roberto Cruz M.D. [id number] CORONAVIRUS 2019, SCREEN ASY MPTOMATICon 11-09-2021 SARS-CoV-2 (COVID-19) RNA MAYTE+probe Ql (Unsp spec) Canceled Normal [facility] Comment on above: Order Comment: TEST CORONAVIRUS 2018, SCREEN ASYMPTOMATIC WAS CANCELLED, 11/09/2021 11:40 test not completed. Result Comment: . This assay is designed to detect the N, ORF1ab and/or S genes of SARS-CoV-2 via nucleic acid amplification. A Negative (NOT DETECTED) result does not preclude 2019-nCoV infection since the adequacy of sample collection and/or low viral burden may result in presence of viral nucleic acids below the clinical sensitivity of this test method. Negative (NOT DETECTED) result should not be used as the sole basis for treatment or other patient management decisions. Rather negative results should be combined with clinical observations, patient history, and epidemiological information to make patient management decisions. Fact sheet for providers: https://www.fda.gov/media/504618/download Fact sheet for patients: https://www.fda.gov/media/823580/download This test has received FDA Emergency Use Authorization (EUA) and has been verified by [facility] ([facility]). This test is only authorized for the duration of time that circumstances exist to justify the authorization of the emergency use of in vitro diagnostic tests for the detection of SARS-CoV-2 virus and/or diagnosis of COVID-19 infection under section 564(b)(1) of the Act, 21 U.S.C. 360bbb-3(b)(1), unless the authorization is terminated or revoked sooner. [facility] is certified under CLIA-88 as qualified to perform high complexity testing. Testing is performed in the [facility] laboratories located at [address] [place] [address]. Performed By: #### C OVSC #### [address] [place] [address] CORONAVIRUS 2019, SCREEN ASY MPTOMATICon 10-11-2021 SARS-CoV-2 (COVID-19) RNA MAYTE+probe Ql (Unsp spec) Not detected Normal Not Detected [facility] Comment on above: Result Comment: . This assay is designed to detect the N, ORF1ab and/or S genes of SARS-CoV-2 via nucleic acid amplification. A Negative (NOT DETECTED) result does not preclude 2019-nCoV infection since the adequacy of sample collection and/or low viral burden may result in presence of viral nucleic acids below the clinical sensitivity of this test method. Negative (NOT DETECTED) result should not be used as the sole basis for treatment or other patient management decisions. Rather negative results should be combined with clinical observations, patient history, and epidemiological information to make patient management decisions. Fact sheet for providers: https://www.fda.gov/media/717994/download Fact sheet for patients: https://www.fda.gov/media/598625/download This test has received FDA Emergency Use Authorization (EUA) and has been verified by [facility] ([facility]). This test is only authorized for the duration of time that circumstances exist to justify the authorization of the emergency use of in vitro diagnostic tests for the detection of SARS-CoV-2 virus and/or diagnosis of COVID-19 infection under section 564(b)(1) of the Act, 21 U.S.C. 360bbb-3(b)(1), unless the authorization is terminated or revoked sooner. [facility] is certified under CLIA-88 as qualified to perform high complexity testing. Testing is performed in the [facility] laboratories located at [address] [place] [address]. Performed By: #### C OVSC #### [place] [address] Covid 19 Resultson 2 SARS-CoV-2 (COVID-19) RNA MAYTE+probe Ql (Unsp spec) NEGATIVE COVID-19 Test Coronaviruses are common world-wide and are the cause of many common colds. SARS-COV2 is a new coronavirus that began circulating worldwide in 2019 so we are calling it COVID-19. It has been estimated that four out of five patients with COVID-19 will recover at home without the need for medical attention. Symptoms of COVID-19 may include cough, fever, shortness of breath, loss of taste or smell and other flu-like symptoms including chills, sore muscles, sore throat, and headache. Severe illness is more common in older people and people with other health problems such as high blood pressure, obesity, and immune system problems. If the test is positive, you have COVID-19. You will be contacted by the ordering physicians office and instructed to remain on home isolation, in accordance with CDC guidelines. You may also be contacted by the [facility] to see if any of your close contacts may have been exposed to the virus and need to quarantine. If the test is negative, you likely do not have COVID-19 at this time, but you still may have a different illness that can spread to other people (like Influenza, or the Flu) and could still be at risk for getting COVID-19. We recommend that you stay away from other people to limit the spread of illness until your symptoms are improving and you are fever-free for 24 hours without the use of fever lowering medications such as acetaminophen or ibuprofen. No test is 100% accurate so if you are still concerned you may have COVID-19, talk to your doctor about the need to continue to stay away from others. Medicines Unless your provider told you not to use the following: Acetaminophen (Tylenol and others) is generally safe. Anti-inflammatory medications, such as Ibuprofen (Advil or Motrin) or Naproxen (Aleve) can also be used. Ntcy-wye-etyobfi cough and cold medicines can be used according to the instructions on the package. Some kisg-zod-kjtabbo medicines also contain acetaminophen. Make sure you are not taking more than your recommended dose. For those not hospitalized, there is no specific treatment available for this illness. Antibiotics do not treat Coronaviruses. Follow-Up Follow up with your doctor by scheduling a virtual visit or consider follow-up at one of our urgent care fever clinics. If you are having difficulty breathing, or are very weak and having difficulty standing, this is a medical emergency. Call 911 or have someone take you to the nearest emergency room immediately. If possible, wear a facemask. Additional guidance from the CDC for patients who tested POSITIVE for COVID-19 How to isolate: Isolate yourself in a specific room at home and limit your contact with others. Use a separate bathroom from other members of the household, when possible. Leave home only to get essential medical care. Do not go to work, school or public areas. Avoid using public transportation, ride-sharing, or taxis. Restrict contact with pets and other animals. If you must care for your pet or be around animals while you are sick, wash your hands before and after your interaction and wear a facemask. Make sure that shared spaces in the home have good airflow, such as by an air conditioner or an opened window, weather permitting. Personal Hygiene Procedures: Wear a face mask when in the same room as other people or pets. If a face mask interferes with your breathing, others should wear a mask when sharing space with you. Frequent hand-washing: wash your hands with soap and water for at least 20 seconds. If soap and water are not available, use alcohol-based hand mechanical engineering advisor. Avoid touching your eyes, nose, and mouth with unwashed hands. Household Hygiene Procedures: Avoid sharing personal household items such as dishes, glassware, cups, eating utensils, towels or bedding with other people or pets in your home. After use, these items should be washed with soap and hot water. Disinfect all high-touch surfaces every day with antibacterial cleaning solutions such as Lysol wipes, bleach, cleansers, etc. High-touch surfaces include tabletops, doorknobs, bathroom fixtures, toilets, phones, keyboards, tablets and bedside tables. Immediately clean any surfaces that may have blood, poop or body fluids on them, using antibacterial cleaning solutions such as Lysol wipes, bleach, cleansers, etc. If clothing or bedding come into contact with blood, poop or body fluids, they should be washed immediately. Follow the directions on the laundry detergent and clothing labels but hot water is recommended when possible. Stopping home isolation precautions: If possible, consult your doctor before stopping home isolation precautions. According to the CDC, you can discontinue home isolation precautions when you have met both of these criteria: Your fever and respiratory symptoms have been gone for 24 suzette (more content not included)... Normal [facility] CORONAVIRUS 2019, SCREEN ASY MPTOMATICon 10-10-2021 Lab Specimen Source Nasal, Nasopharyngeal Normal [facility] Comment on above: Performed By: #### C OVSC #### [facility] [address] [place] [address] Coronavirus 2019 RNA by PCR, Screening Asymptomticon 10-10-2021 Coronavirus 2019 RNA by PCR, Screening Asymptomtic Not detected Normal See Below [facility] [address] [employer] Work Phone: Comment on above: SOURCE: Nasal, Nasop haryngealReference Range: Not Detected.This assay is designed to detect the N, ORF1ab and/or S genes of SARS-CoV-2 via nucleic acid amplification. A Negative (NOT DETECTED) result does not preclude 2019-nCoV infection since the adequacy of sample collection and/or low viral burden may result in presence of viral nucleic acids below the clinical sensitivity of this test method. Negative (NOT DETECTED) result should not be used as the sole basis for treatment or other patient management decisions. Rather negative results should be combined with clinical observations, patient history, and epidemiological information to make patient management decisions.Fact sheet for providers: https://www.fda.gov/media/220830/downloadFact sheet for patients: https://www.fda.gov/media/522553/downloadThis test has received FDA Emergency Use Authorization (EUA) and has been verified by [facility] ([facility]). This test is only authorized for the duration of time that circumstances exist to justify the authorization of the emergency use of in vitro diagnostic tests for the detection of SARS-CoV-2 virus and/or diagnosis of COVID-19 infection under section 564(b)(1) of the Act, 21 U.S.C. 360bbb-3(b)(1), unless the authorization is terminated or revoked sooner. [facility] is certified under CLIA-88 as qualified to perform high complexity testing. Testing is performed in the [facility] laboratories located at [address] [place] [address]. CORONAVIRUS 2018, SCREEN ASY MPTOMATICon 10-08-2021 Lab Specimen Source Nasal, Nasopharyngeal Normal [facility] Comment on above: Order Comment: TEST CORONAVIRUS 2018, SCREEN ASYMPTOMATIC WAS CANCELLED, 11/09/2021 11:40 test not completed. Performed By: #### C OVSC #### [address] [place] [address] Laboratory - Chemistry and C hemistry - challengeon 09-26-2021 Albumin BCP dye [Mass/Vol] 3.2 g/dL below low threshold 3.4 - 5.0 [employer] Work Phone: ALP [Catalytic activity/Vol] 125 U/L above high threshold 33 - 110 [facility] [employer] Work Phone: ALT With P-5'-P [Catalytic activity/Vol] 7 U/L 7 - [address] [facility] [employer] Work Phone: Comment on above: Patients treated wit h Sulfasalazine may generate falsely decreased results for ALT. Anion gap [Moles/Vol] 14 mmol/L 10 - 20 [email or web address] Work Phone: AST With P-5'-P [Catalytic activity/Vol] 10 U/L 9 - 39 [employer] Work Phone: Bilirubin [Mass/Vol] 0.6 mg/dL 0.0 - 1.2 [facility] Work Phone: [phone] Calcium [Mass/Vol] 7.7 mg/dL below low threshold 8.6 - 10.3 [employer] Work Phone: [phone] Chloride [Moles/Vol] 107 mmol/L 98 - 107 [facility] Work Phone: CO2 [Moles/Vol] 18 mmol/L below low threshold 21 - 32 [employer] Work Phone: Creatinine [Mass/Vol] 0.44 mg/dL below low threshold See Below [employer] Work Phone: Comment on above: Reference Range: 0.5 0 - 1.05 Glucose [Mass/Vol] 117 mg/dL above high threshold 74 - 99 [employer] Work Phone: Potassium [Moles/Vol] 3.5 mmol/L 3.5 - 5.3 [email or web address] Work Phone: Protein [Mass/Vol] 6.0 g/dL below low threshold 6.4 - 8.2 [employer] Work Phone: Sodium [Moles/Vol] 135 mmol/L below low threshold 136 - 145 [employer] Work Phone: Urea nitrogen [Mass/Vol] 7 mg/dL 6 - 23 [employer] Work Phone: Laboratory - Hematology and Cell countson 09-26-2021 Erythrocyte distribution width (RBC) [Ratio] 14.2 % See Below [employer] Work Phone: Comment on above: Reference Range: 11. 5 - 14.5 Hematocrit (Bld) [Volume fraction] 33.5 % below low threshold See Below [employer] Work Phone: Comment on above: Reference Range: 36. 0 - 46.0 Hemoglobin (Bld) [Mass/Vol] 11.1 g/dL below low threshold See Below [employer] Work Phone: Comment on above: Reference Range: 12. 0 - 16.0 MCHC (RBC) [Mass/Vol] 33.2 g/dL See Below [facility] Work Phone: Comment on above: Reference Range: 32. 0 - 36.0 MCV (RBC) [Entitic vol] 92 fL 80 - 100 [employer] Work Phone: [phone] Platelets (Bld) [#/Vol] 233 10*3/uL 150 - 450 [employer] Work Phone: RBC (Bld) [#/Vol] 3.66 {x10E12/L} below low threshold See Below [employer] Work Phone: Comment on above: Reference Range: 4.0 0 - 5.20 WBC (Bld) [#/Vol] 12.0 10*3/uL above high threshold 4.4 - 11.3 [employer] Work Phone: No Panel Informationon 09-26 >90 >90 [employer] Work Phone: Comment on above: CALCULATIONS OF YOLANDA MATED GFR ARE PERFORMED USING THE 2020 CKD-EPI STUDY REFIT EQUATION WITHOUT THE RACE VARIABLE FOR THE IDMS-TRACEABLE CREATININE METHODS.https://jasn.asnjournals.org/content//A SN.3202753838 Total Protein, Urine Spoton 09-26-2021 Creatinine (U) [Mass/Vol] 86.0 mg/dL See Below [place] [address] [place] Work Phone: Comment on above: Reference Range: 20. 0 - 320.0 Protein (U) [Mass/Vol] 19 mg/dL 5 - 24 Wo [place] [address] [place] Work Phone: Protein/Creatinine (U) [Ratio] 0.22 {mg/mg_Creat} above high threshold See Below [address] Work Phone: Comment on above: Reference Range: 0.0 0 - 0.17 Uric Acid, Serumon Urate [Mass/Vol] 4.1 mg/dL 2.3 - 6.7 [place] [address] [place] Work Phone: Comment on above: Venipuncture immedia tely after or during the administration of Metamizole may lead to falsely low results. Testing should be performed immediately prior to Metamizole dosing. GROUP B STREP SCREENon 09-17 GROUP B STREP SCREEN PATIENT: ARSALAN ESCOBAR IN L LOCATION: [address]#: [id number] : 89 AGE: SEX: F ORDERED BY: ANDRY RUEDA SOURCE: VAGINAL COLLECTED: 09/17/21 11:29 ANTIBIOTICS AT LINDA.: RECEIVED : 09/17/21 22:38 SITE: VAGINAL R E S U L T S GROUP B STREP SCREEN FINAL 09/19/21 12:47 NEGATIVE FOR GROUP B BETA STREP. Normal [facility] Comment on above: Performed By: #### G BSCR #### [facility] [address] [place] [address] Laboratory - Microbiology an d Antimicrobial susceptibilityon 09-17-2021 Bacteria identified Aer cx Nom (Genital specimen) [address] Work Phone: No Panel Informationon 09-[address] Work Phone: IO Wet Mounton 08-27-2021 IO Wet Mount Negative [facility] [employer] Work Phone: No Panel Informationon 08-[address] [facility] [employer] Work Phone: Glucose, 1 Hour Screen, Preg nancyon 07-14-2021 Glucose 1 Hr post 50 g glucose PO [Mass/Vol] 132 mg/dL <135 [place] [address] [employer] Work Phone: Comment on above: Diagnostic value wit h glucose loading dose of 50 g. Reference values from [place] [employer]. Diabetes Care 2015;38(Suppl.1):S8-S16 Laboratory - Blood bankon Blood group antibody screen Ql Canceled [facility] Work Phone: Blood group antibody screen Ql Negative [facility] [employer] Work Phone: Laboratory - Hematology and Cell countson 07-14-2021 Erythrocyte distribution width (RBC) [Ratio] 13.9 % See Below [facility] [employer] Work Phone: Comment on above: Reference Range: 11. 5 - 14.5 Hematocrit (Bld) [Volume fraction] 35.7 % below low threshold See Below [facility] [employer] Work Phone: Comment on above: Reference Range: 36. 0 - 46.0 Hemoglobin (Bld) [Mass/Vol] 12.3 g/dL See Below [facility] [employer] Work Phone: Comment on above: Reference Range: 12. 0 - 16.0 MCHC (RBC) [Mass/Vol] 34.5 g/dL See Below Wom [facility] [employer] Work Phone: Comment on above: Reference Range: 32. 0 - 36.0 MCV (RBC) [Entitic vol] 93 fL 80 - 100 [facility] [employer] Work Phone: Platelets (Bld) [#/Vol] 260 10*3/uL 150 - 450 [facility] [employer] Work Phone: RBC (Bld) [#/Vol] 3.83 {x10E12/L} below low threshold See Below [employer] Work Phone: Comment on above: Reference Range: 4.0 0 - 5.20 WBC (Bld) [#/Vol] 10.7 10*3/uL 4.4 - 11.3 [employer] Work Phone: No Panel Informationon 07-14 NONE [employer] Work Phone: Rhogamon 07-14-2021 Rhogam ORDER RECD [facility] Work Phone: Rhogam Canceled [employer] Work Phone: RAPID TOX SCREEN WITH RELEX TO DRUGMCon 06-23-2021 Amphetamine (U) [Mass/Vol] Negative NEGATIVE NG/ML [facility] Comment on above: <500 ng/ml CUTOFF Barbiturates Screen Ql (U) Negative NEGATIVE NG/ML [facility] Comment on above: <200 ng/ml CUTOFF Benzodiazepines Ql (U) Negative NEGAT JESUS NG/ML [facility] Comment on above: <150 ng/ml CUTOFF Benzoylecgonine Ql (U) Negative NEGAT JESUS NG/ML [facility] Comment on above: <150 ng/ml CUTOFF Buprenorphine Ql (U) Negative NEGATIV E NG/ML [facility] Comment on above: <10 ng/ml CUTOFF Testing performed at [place], [place] [address] Cannabinoids Screen Ql (U) Negative NEGATIVE NG/ML [facility] Comment on above: <50 ng/ml CUTOFF Methadone Screen Ql (U) Negative NEGATIVE NG/ML [facility] Comment on above: <200 ng/ml CUTOFF Methamphetamine (U) [Mass/Vol] Negative NEGATIVE NG/ML [facility] Comment on above: <500 ng/ml CUTOFF Opiates Screen Ql (U) Negative NEGATI VE NG/ML [facility] Comment on above: <100 ng/ml CUTOFF oxyCODONE Ql (U) Negative NEGATIVE NG/ML [facility] Comment on above: <100 ng/ml CUTOFF Phencyclidine Screen method >25 ng/mL Ql (U) Negative NEGATIVE NG/ML [facility] Comment on above: <25 ng/ml CUTOFF Propoxyphene+Norpropox yphene Screen Ql (U) Negative NEGATIVE NG/ML [facility] Comment on above: <300 ng/ml CUTOFF Tricyclic antidepressants Screen Ql (U) Negative NEGATIVE NG/ML [facility] Comment on above: <300 ng/ml CUTOFF [facility] URINALYSIS, MACROon 06-23-19 22 Bilirubin Ql (U) Negative NEGATIVE [facility] Clarity (U) CLEAR CLEAR [facility] Color (U) YELLOW YELLOW [facility] Glucose Test strip (U) [Mass/Vol] Negative NEGATIVE mg/dl [facility] [place] [facility] Hemoglobin Ql (U) Negative NEGATIVE [facility] Ketones (U) [Mass/Vol] Negative NEGAT JESUS mg/dl [facility] Leukocyte esterase Test strip Ql (U) Negative NEGATIVE [facility] Comment on above: Testing performed at [place], [place] [address] Nitrite Ql (U) Negative NEGATIVE [facility] pH (U) 6.0 [pH] [facility] Protein Ql (U) Negative NEGATIVE mg/dl [facility] Specific gravity (U) [Rel density] 1.025 [facility] Urobilinogen (U) [Mass/Vol] 0.2 mg/dL [facility] HOLTER MONITOR- EXTENDED (3 TO 7 DAYS)on 06-01-2021 HOLTER MONITOR- EXTENDED (3 TO 7 DAYS) This is a summary report. The complete report is available in the patient's medical record. If you cannot access the medical record, please contact the sending organization for a detailed fax or copy. ?? HOLTER REPORT: 05/17/2021 TO 05/19/2021 ?? INDICATIONS: PALPIATIONS Sinus rhythm with rare PVCs No atrial fibrillation No high degree AV block No significant bradycardia episodes Normal [facility] Ferritinon 05-17-2021 Ferritin [Mass/Vol] 18 ng/mL 13 - 150 ng/mL [facility] Iron and Iron binding capaci ty panelon 05-17-2021 Iron [Mass/Vol] 123 ug/dL [facility] binding capacity [Mass/Vol] 368 [facility] Iron saturation [Mass fraction] 33 % 20 - 50 % [facility] No Panel Informationon 05-17 Interpretation and review of laboratory results Normal [facility] CTPCRon 02-14-2021 C. trachomatis Interp Normal See CT Interp N [facility] [place]) Comment on above: Result Comment: C. t rachomatis DNA not detected. Specimen is presumptive negative for C. trachomatis. A negative result does not preclude C. trachomatis infection because results depend on adequate specimen collection, absence of inhibitors, and sufficient DNA to be detected. See CT Interp N Performed By: #### C TPCR, [email or web address] #### [address] [address] C.trachomatis PCR Negative Normal Negative [facility] ([place]) Comment on above: Result Comment: Dias sport tube received with two swabs. Review collection procedure. Inappropriate collection may cause aberrant results. Transport tube received with two swabs. Review collection procedure. Inappropriate collection may cause aberrant results. Molecular (PCR) assay performed on the Kelvin Irma 4800 system. Performed By: #### C TPCR, NGPCR1 #### [address] [address] Chlam Source Vaginal Normal [facility] ([place] Comment on above: Performed By: #### C TPCR, NGPCR1 #### [address] [address] ADOHZ7io 02-14-2021 GC PCR Source Vaginal Normal [facility] ([place] Comment on above: Performed By: #### U A, PREGU #### [address] [address] N. gonorrhoeae (PCR) Negative Normal Negative [facility] ([place]) Comment on above: Result Comment: Dias sport tube received with two swabs. Review collection procedure. Inappropriate collection may cause aberrant results. Transport tube received with two swabs. Review collection procedure. Inappropriate collection may cause aberrant results. Molecular (PCR) assay performed on the Kelvin Irma 4800 System. Performed By: #### U A, PREGU #### [address] [address] N. gonorrhoeae Interp Normal See NG Interp N [facility] ([place] Comment on above: Result Comment: N. g onorrhoeae DNA not detected. Specimen is presumptive negative for N. gonorrhoeae. A negative result does not preclude Neisseria gonorrhoeae infection because results depend on adequate specimen collection, absence of inhibitors, and sufficient DNA to be detected. See NG Interp N Performed By: #### U A, PREGU #### [address] [address] .Auto Diffon 02-12-2021 Basophil, Absolute 0.00 10 3/mcL Normal 0.00-0.19 [facility] ([place]) Comment on above: Performed By: #### B MP, GFR #### [place] [address] #### CBC, ADIFF, ANEU, HCGQ, ABOG #### [address] [address] Basophils/100 WBC (Bld) 0.4 % Normal 0.0-2.5 [facility] ([place] Comment on above: Performed By: #### B MP, GFR #### [place] [address] #### CBC, ADIFF, ANEU, HCGQ, ABOG #### [address] [address] Eosinophil, Absolute 0.00 10 3/mcL Normal 0.00-0.40 A [facility] ([place]) Comment on above: Performed By: #### B MP, GFR #### [place] [address] #### CBC, ADIFF, ANEU, HCGQ, ABOG #### [address] [address] Eosinophils/100 WBC (Bld) 0.1 % Normal 0.0-7.0 [facility] ([place] Comment on above: Performed By: #### B MP, GFR #### [place] [address] #### CBC, ADIFF, ANEU, HCGQ, ABOG #### [address] [address] Lymphocyte, Absolute 1.40 10 3/mcL Normal 0.77-3.85 [facility] ([place]) Comment on above: Performed By: #### B MP, GFR #### [place] [address] #### CBC, ADIFF, ANEU, HCGQ, ABOG #### [address] [address] Lymphocytes/100 WBC (Bld) 29.2 % Normal 10.0-50.0 [facility] ([place]) Comment on above: Performed By: #### B MP, GFR #### [place] [address] #### CBC, ADIFF, ANEU, HCGQ, ABOG #### [address] [address] Monocyte, Absolute 0.30 10 3/mcL Normal 0.15-1.00 [facility] ([place]) Comment on above: Performed By: #### B MP, GFR #### [place] [address] #### CBC, ADIFF, ANEU, HCGQ, ABOG #### [address] [address] Monocytes/100 WBC (Bld) 7.2 % Normal 1.7-13.0 [facility] ([place] Comment on above: Performed By: #### B MP, GFR #### [place] [address] #### CBC, ADIFF, ANEU, HCGQ, ABOG #### [address] [address] Neutrophils/100 WBC (Bld) 63.1 % Normal 37.0-80.0 [facility] ([place] Comment on above: Performed By: #### B MP, GFR #### [place] [address] #### CBC, ADIFF, ANEU, HCGQ, ABOG #### [address] [address] .GFRon 02-12-2021 GFR 96 ml/min/1.73sqm Normal [facility] ([place] Comment on above: Result Comment: GFR Population mean for , Non- Americans Ages 20-29 = 116 mL/min/1.73 sq.m. Ages 30-39 = 107 mL/min/1.73 sq.m. Ages 40-49 = 99 mL/min/1.73 sq.m. Ages 50-59 = 93 mL/min/1.73 sq.m. Ages 60-69 = 85 mL/min/1.73 sq.m. Ages 70+ = 75 mL/min/1.73 sq.m. Chronic Kidney Disease: Less than 60 mL/min/1.73 square meters End Stage Renal Disease: Less than 15 mL/min/1.73 square meters Performed By: #### B MP, GFR #### [address] [address] #### CBC, ADIFF, ANEU, HCGQ, ABOG #### [address] [address] GFR Non- 80 ml/min/1.73sqm Normal [facility] ([place] Comment on above: Result Comment: GFR Population mean for , Non- Americans Ages 20-29 = 116 mL/min/1.73 sq.m. Ages 30-39 = 107 mL/min/1.73 sq.m. Ages 40-49 = 99 mL/min/1.73 sq.m. Ages 50-59 = 93 mL/min/1.73 sq.m. Ages 60-69 = 85 mL/min/1.73 sq.m. Ages 70+ = 75 mL/min/1.73 sq.m. Chronic Kidney Disease: Less than 60 mL/min/1.73 square meters End Stage Renal Disease: Less than 15 mL/min/1.73 square meters Performed By: #### B MP, GFR #### [address] [address] #### CBC, ADIFF, ANEU, HCGQ, ABOG #### [address] [address] .NEUABSon 02-12-2021 Neutrophil, Absolute 3.00 10 3/mcL Normal 2.85-6.16 A [facility] ([place]) Comment on above: Performed By: #### B MP, GFR #### [place] [address] #### CBC, ADIFF, ANEU, HCGQ, ABOG #### [address] [address] BMPon 02-12-2021 BUN/Creatinine Ratio 14 ratio Normal 7-27 [facility] ([place]) Comment on above: Performed By: #### B MP, GFR #### [place] [address] #### CBC, ADIFF, ANEU, HCGQ, ABOG #### [address] [address] Calcium [Mass/Vol] 8.4 mg/dL Normal 8.4-10.2 [facility] ([place]) Comment on above: Performed By: #### B MP, GFR #### [place] [address] #### CBC, ADIFF, ANEU, HCGQ, ABOG #### [address] [address] Chloride [Moles/Vol] 104 mmol/L Normal 98-107 [facility] ([place]) Comment on above: Performed By: #### B MP, GFR #### [place] [address] #### CBC, ADIFF, ANEU, HCGQ, ABOG #### [address] [address] CO2 [Moles/Vol] 26 mmol/L Normal 22-29 [facility] ([place] Comment on above: Performed By: #### B MP, GFR #### [place] [address] #### CBC, ADIFF, ANEU, HCGQ, ABOG #### [address] [address] Creatinine [Mass/Vol] 0.84 mg/dL Normal 0.55-1.02 [facility] ([place]) Comment on above: Performed By: #### B MP, GFR #### [place] [address] #### CBC, ADIFF, ANEU, HCGQ, ABOG #### [address] [address] Electrolyte Balance 11.0 mEq/L Normal [facility] ([place]) Comment on above: Performed By: #### B MP, GFR #### [place] [address] #### CBC, ADIFF, ANEU, HCGQ, ABOG #### [address] [address] Glucose [Mass/Vol] 151 mg/dL High 70-105 [facility] ([place]) Comment on above: Performed By: #### B MP, GFR #### [place] [address] #### CBC, ADIFF, ANEU, HCGQ, ABOG #### [address] [address] Potassium [Moles/Vol] 3.7 mmol/L Normal 3.5-5.1 [facility] ([place]) Comment on above: Performed By: #### B MP, GFR #### [place] [address] #### CBC, ADIFF, ANEU, HCGQ, ABOG #### [address] [address] Sodium [Moles/Vol] 141 mmol/L Normal 136-145 [facility] ([place]) Comment on above: Performed By: #### B MP, GFR #### [place] [address] #### CBC, ADIFF, ANEU, HCGQ, ABOG #### [address] [address] Urea nitrogen [Mass/Vol] 12 mg/dL Normal 7-18 [facility] ([place] Comment on above: Performed By: #### B MP, GFR #### [place] [address] #### CBC, ADIFF, ANEU, HCGQ, ABOG #### [address] [address] CBCon 02-12-2021 Erythrocyte distribution width (RBC) [Ratio] 13.1 % Normal 11.5-14.5 [facility] ([place] Comment on above: Performed By: #### B MP, GFR #### [place] [address] #### CBC, ADIFF, ANEU, HCGQ, ABOG #### [place] [id number] Hematocrit (Bld) [Volume fraction] 42.0 % Normal 37.0-47.0 [facility] ([place] Comment on above: Performed By: #### B MP, GFR #### [place] [address] #### CBC, ADIFF, ANEU, HCGQ, ABOG #### [place] [address] Hgb 14.3 G/dL Normal 12.0-16.0 [facility] ([place] Comment on above: Performed By: #### B MP, GFR #### [place] [address] #### CBC, ADIFF, ANEU, HCGQ, ABOG #### [address] [address] MCH (RBC) [Entitic mass] 31.5 pg High 27.0-31.2 [facility] ([place] Comment on above: Performed By: #### B MP, GFR #### [place] [address] #### CBC, ADIFF, ANEU, HCGQ, ABOG #### [address] [address] MCHC 34.1 G/dL Normal 33.0-37.0 [facility] ([place] Comment on above: Performed By: #### B MP, GFR #### [place] [address] #### CBC, ADIFF, ANEU, HCGQ, ABOG #### [address] [address] MCV (RBC) [Entitic vol] 92.3 fL Normal 80.0-94.0 [facility] ([place] Comment on above: Performed By: #### B MP, GFR #### [place] [address] #### CBC, ADIFF, ANEU, HCGQ, ABOG #### [address] [address] Platelet 199 10 3/mcL Normal 130-400 [facility] ([place] Comment on above: Performed By: #### Adria MP, GFR #### [place] [address] #### CBC, ADIFF, ANEU, HCGQ, ABOG #### [place] [address] Platelet mean volume (Bld) [Entitic vol] 8.6 fL Normal 7.4-10.4 [facility] ([place] Comment on above: Performed By: #### B MP, GFR #### [place] [address] #### CBC, ADIFF, ANEU, HCGQ, ABOG #### [address] [address] RBC 4.55 10 6/mcL Normal 4.20-5.40 [facility] ([place] Comment on above: Performed By: #### B MP, GFR #### [place] [address] #### CBC, ADIFF, ANEU, HCGQ, ABOG #### [address] [address] WBC 4.80 10 3/mcL Normal 4.60-10.80 [facility] ([place] Comment on above: Performed By: #### B MP, GFR #### [address] [address] #### CBC, ADIFF, ANEU, HCGQ, ABOG #### [address] [address] Gel ABOon 02-12-2021 ABO/Rh Interp Negative Invalid Interpretation Code [facility] ([place] Comment on above: Performed By: #### B MP, GFR #### [place] [id number] #### CBC, ADIFF, ANEU, HCGQ, ABOG #### [address] [address] HCGQon 02-12-2021 hCG, quantitative 5108.5 mIU/mL Normal [facility] ([place]) Comment on above: Result Comment: HCG Quantitative 3 Weeks Gestation mIU/mL 5.0 to 12.0 HCG Quantitative 4 Weeks Gestation mIU/mL 10.0 to 708.0 HCG Quantitative 5 Weeks Gestation mIU/mL 217.0 to 8245.0 HCG Quantitative 6 Weeks Gestation mIU/mL 152.0 to 32,177.0 HCG Quantitative 7 Weeks Gestation mIU/mL 4059.0 to 153,767.0 HCG Quantitative 8 Weeks Gestation mIU/mL 31,366.0 to 149,094.0 HCG Quantitative 9 Weeks Gestation mIU/mL 59,109.0 to 135,901.0 HCG Quantitative 10 Weeks Gestation mIU/mL 44,186.0 to 170,409.0 HCG Quantitative 12 Weeks Gestation mIU/mL 27,107.0 to 201,615.0 HCG Quantitative 14 Weeks Gestation mIU/mL 24,302.0 to 93,646.0 Performed By: #### B MP, GFR #### [place] [address] #### CBC, ADIFF, ANEU, HCGQ, ABOG #### [address] [address] PREGUon 02-12-2021 HCG ( test) Ql (U) Positive Normal [facility] ([place] Comment on above: Performed By: #### U A, PREGU #### [address] [address] test (u) int Detected Invalid Interpretation Code [facility] ([place]) Comment on above: Performed By: #### U A, PREGU #### [address] [address] UAon 02-12-2021 Color (U) Yellow Normal [facility] ([place] Comment on above: Performed By: #### U A, PREGU #### [place] [id number] Glucose (U) [Mass/Vol] Negative Normal Negative [facility] ([place]) Comment on above: Performed By: #### U A, PREGU #### [place] [address] Ketones Ql (U) 80 mg/dL Abnormal Negative [facility] ([place] Comment on above: Performed By: #### U A, PREGU #### [place] [id number] UA Appear Clear Normal Clear [facility] ([place]) Comment on above: Performed By: #### U A, PREGU #### [address] [address] UA Bili Small Abnormal Negative [facility] ([place] Comment on above: Performed By: #### U A, PREGU #### [address] [address] UA Blood Negative Normal Negative [facility] ([place] Comment on above: Performed By: #### U A, PREGU #### [address] [address] UA Leuk Est Negative Normal Negative [facility] ([place] Comment on above: Performed By: #### U A, PREGU #### [address] [address] UA Nitrite Negative Normal Negative [facility] ([place]) Comment on above: Performed By: #### U A, PREGU #### [address] [address] UA pH 6.0 Normal 5.0 - 8.0 [facility]) Comment on above: Performed By: #### U A, PREGU #### [address] [address] UA Protein Trace Normal Negative [facility]) Comment on above: Performed By: #### U A, PREGU #### [address] [address] UA Spec Grav >=1.030 Abnormal 1.015-1.025 [facility]) Comment on above: Performed By: #### U A, PREGU #### [address] [address] UA Specimen Type Clean Catch Normal [facility]) Comment on above: Performed By: #### U A, PREGU #### [address] [address] UA Urobilinogen 0.2 E.U./dL Normal 0.2-1.0 [facility]) Comment on above: Performed By: #### U A, PREGU #### [address] [address] CBC and Differentialon 10-17 Abs Baso 0.04 k/uL Normal <0.11 [facility] Comment on above: Performed By: #### C BCDIF, BETAMM, CMP, LIPA #### [facility] [address] [place], [place] [id number] Abs [place] 0.64 k/uL Normal <0.87 [facility] Comment on above: Performed By: #### C BCDIF, BETAMM, CMP, LIPA #### [facility] [address] [place], [place] [phone] Abs Neut 4.48 k/uL Normal 1.45-7.50 [facility] Comment on above: Performed By: #### C BCDIF, BETAMM, CMP, LIPA #### [facility] [address] [place], [place] [phone] Basophils/100 WBC (Bld) 0.5 % Normal [facility] Comment on above: Performed By: #### C BCDIF, BETAMM, CMP, LIPA #### [facility] [address] [phone] Eosinophils #/vol (Bld) 0.26 10*3/uL Normal <0.46 [facility] Comment on above: Performed By: #### C BCDIF, BETAMM, CMP, LIPA #### [facility] [address] [facility] [phone] Eosinophils/100 WBC (Bld) 3.4 % Normal [facility] Comment on above: Performed By: #### C BCDIF, BETAMM, CMP, LIPA #### [facility] [address] [place], [place] [phone] Erythrocyte distribution width Ratio (RBC) 13.1 % Normal 11.5-15.0 [facility] Comment on above: Performed By: #### C BCDIF, BETAMM, CMP, LIPA #### [facility] [address] [place] [phone] Hematocrit Volume Fraction (Bld) 44.4 % Normal 36.0-46.0 [facility] Comment on above: Performed By: #### C BCDIF, BETAMM, CMP, LIPA #### [facility] [address] [place] [phone] Hemoglobin mass conc (Bld) 14.8 g/dL Normal 11.5-15.5 [facility] Comment on above: Performed By: #### C BCDIF, BETAMM, CMP, LIPA #### [facility] [address] [place] [phone] Lymphocytes #/vol (Bld) 2.28 10*3/uL Normal 1.00-4.00 [facility] Comment on above: Performed By: #### C BCDIF, BETAMM, CMP, LIPA #### [facility] [address] [place] [phone] Lymphocytes/100 WBC (Bld) 29.6 % Normal [facility] Comment on above: Performed By: #### C BCDIF, BETAMM, CMP, LIPA #### [facility] [address] [place] [phone] MCH Entitic mass (RBC) 30.4 pG Normal 26.0-34.0 [facility] Comment on above: Performed By: #### C BCDIF, BETAMM, CMP, LIPA #### [facility] [address] [facility] [phone] MCHC mass conc (RBC) 33.3 g/dL Normal 30.5-36.0 [facility] Comment on above: Performed By: #### C BCDIF, BETAMM, CMP, LIPA #### [facility] [address] [facility] [phone] MCV Entitic volume (RBC) 91.2 fL Normal 80.0-100.0 [facility] Comment on above: Performed By: #### C BCDIF, BETAMM, CMP, LIPA #### [facility] [address] [facility] [phone] Monocytes/100 WBC (Bld) 8.3 % Normal [facility] Comment on above: Performed By: #### C BCDIF, BETAMM, CMP, LIPA #### [facility] [address] [facility] [phone] Neutrophils/100 WBC (Bld) 58.2 % Normal [facility] Comment on above: Performed By: #### C BCDIF, BETAMM, CMP, LIPA #### [facility] [address] [facility] [phone] Platelet mean volume Entitic volume (Bld) 10.7 fL Normal 9.0-12.7 [facility] Comment on above: Performed By: #### C BCDIF, BETAMM, CMP, LIPA #### [facility] [address] [facility] [phone] Platelets #/vol (Bld) 283 10*3/uL Normal 150-400 [facility] Comment on above: Performed By: #### C BCDIF, BETAMM, CMP, LIPA #### [facility] [address] [facility] [phone] RBC #/vol (Bld) 4.87 10*6/uL Normal 3.90-5.20 [facility] Comment on above: Performed By: #### C BCDIF, BETAMM, CMP, LIPA #### [facility] [address] [facility] [phone] WBC #/vol (Bld) 7.70 10*3/uL Normal 3.70-11.00 [facility] Comment on above: Performed By: #### C BCDIF, BETAMM, CMP, LIPA #### [facility] [address] [facility] [phone] CT ABD/PEL W IVCONon 019 CT ABD/PEL W IVCON * * *Final Report* * * DATE OF EXAM: Oct 17 2018 6:20PM [facility] [place] ABD/PEL W IVCON / PROCEDURE REASON: Infection, abdomen-pelvis * * * * Physician Interpretation * * * * EXAMINATION: CT ABDOMEN AND PELVIS WITH IV CONTRAST CLINICAL HISTORY: Infection, abdomen-pelvis Contrast and Creatinine->Wait for labs acute illness ABD PAIN, BLOOD IN STOOL, H PYLORI TECHNIQUE: CT of the abdomen and pelvis was performed using standard technique, scanning from just above the dome of the diaphragm to the symphysis pubis. MQ: CTAP_3 Contrast: IV: 100 ml of Omnipaque 300 CT Radiation dose: Integrated Dose-length product (DLP) for this visit = 457 mGy*cm. CT Dose Reduction Employed: Automated exposure control (AEC) COMPARISON: 08/31/2018. RESULT: Liver: No mass. Biliary: Mild intrahepatic biliary ductal dilatation likely related to cholecystectomy. Spleen: No mass. No splenomegaly. Pancreas: No mass or duct dilation. Adrenals: No mass. Kidneys: Subcentimeter lesions that are too small to characterize but likely benign. 2 mm stone in the interpolar right kidney. 2 mm stone in the interpolar left kidney. No hydronephrosis. The mid right ureter is mildly dilated; however, there is no obstructing stone or mass identified. GI tract: No dilation or wall thickening. Appendix is not visualized. No diverticulosis. Lymph nodes: No abdominal or pelvic lymphadenopathy. Mesentery/Peritoneum: No ascites or mass. Retroperitoneum: No mass. Vasculature: The celiac axis and SMA are patent. The portal vein and branches, splenic vein, SMV, and hepatic veins are patent. No abdominal aortic or iliac artery aneurysm. Pelvis: No mass, ascites or fluid collection. Bones/Soft Tissues: No significant finding. Lower thorax: Unremarkable. IMPRESSION: 1. No acute findings in the abdomen or pelvis. 2. Nonobstructing renal calculi bilaterally. Icer Hand: TONYA Transcribe Date/Time: Oct 17 2018 6:22P Dictated by : AG ALLAN MD This examination was interpreted and the report reviewed and electronically signed by: AG ALLAN MD on Oct 17 2018 6:35PM EST [id number] Normal [facility] Comp Metabolic Panelon 10-17 Albumin mass conc 4.0 g/dL Normal 3.9-4.9 [facility] Comment on above: Performed By: #### C BCDIF, BETAMM, CMP, LIPA #### [facility] [address] [place] [address] ALP enzyme act/vol 66 U/L Normal 34-123 [facility] Comment on above: Performed By: #### C BCDIF, BETAMM, CMP, LIPA #### [facility] [address] [place] [address] ALT enzyme act/vol 11 U/L Normal 7-38 [facility] Comment on above: Performed By: #### C BCDIF, BETAMM, CMP, LIPA #### [facility] [address] [place] [address] Anion gap molar conc 10 mmol/L Normal 9-18 [facility] Comment on above: Performed By: #### C BCDIF, BETAMM, CMP, LIPA #### [facility] [address] [place] [address] AST enzyme act/vol 14 U/L Normal 13-35 [facility] Comment on above: Performed By: #### C BCDIF, BETAMM, CMP, LIPA #### [facility] [address] [place] [address] Bilirubin mass conc 0.5 mg/dL Normal 0.2-1.3 [facility] Comment on above: Performed By: #### C BCDIF, BETAMM, CMP, LIPA #### [facility] [address] [place] [address] Calcium mass conc 8.8 mg/dL Normal 8.5-10.2 [facility] Comment on above: Performed By: #### C BCDIF, BETAMM, CMP, LIPA #### [facility] [address] [place] [address] Chloride molar conc 104 mmol/L Normal 97-105 [facility] Comment on above: Performed By: #### C BCDIF, BETAMM, CMP, LIPA #### [facility] [address] [facility] [phone] CO2 molar conc 22 mmol/L Normal 22-30 [facility] Comment on above: Performed By: #### C BCDIF, BETAMM, CMP, LIPA #### [facility] [address] [facility] [phone] Creatinine mass conc 0.83 mg/dL Normal 0.58-0.96 [facility] Comment on above: Performed By: #### C BCDIF, BETAMM, CMP, LIPA #### [facility] [address] [phone] eGFR- Amer. >60 Normal [facility] Comment on above: Performed By: #### C BCDIF, BETAMM, CMP, LIPA #### [facility] [address] [phone] GFR/1.73 sq M predicted among non-blacks MDRD vol rate/area (S/P/Bld) mL/min/{1.73_m2} Normal [facility] Comment on above: Result Comment: eGFR (Estimated GFR) Units of measure: mL/min/1.73 meters squared eGFR is derived from the reexpressed MDRD Study equation using the following parameters: serum creatinine, age, gender and race. The creatinine assay has been calibrated to be traceable to IDMS. An eGFR <60 mL/min/1.73m2 for >3 months is consistent with chronic kidney disease. Refer to KDOQI guidelines for clinical interpretation. In patients with unstable renal function, e.g. those with acute kidney injury, the eGFR may not accurately reflect actual GFR. Performed By: #### C BCDIF, BETAMM, CMP, LIPA #### [facility] [address] [facility] [phone] Glucose mass conc 99 mg/dL Normal 74-99 [facility] Comment on above: Result Comment: The [place] Diabetes Association (ADA) provides guidance for cutoff values for fasting glucose and random glucose. The ADA defines fasting as no caloric intake for at least 8 hours. Fasting plasma glucose results between 100 to 125 mg/dL indicate increased risk for diabetes (prediabetes). Fasting plasma glucose results greater than or equal to 126 mg/dL meet the criteria for diagnosis of diabetes. In the absence of unequivocal hyperglycemia, results should be confirmed by repeat testing. In a patient with classic symptoms of hyperglycemia or hyperglycemic crisis, random plasma glucose results greater than or equal to 200 mg/dL meet the criteria for diagnosis of diabetes. Reference: Standards of Medical Care in Diabetes 2016, [place] [employer] Association. Diabetes Care. 2016.39(Suppl 1). Performed By: #### C BCDIF, BETAMM, CMP, LIPA #### [facility] [address] [place] [address] Potassium molar conc 3.9 mmol/L Normal 3.7-5.1 [facility] Comment on above: Performed By: #### C BCDIF, BETAMM, CMP, LIPA #### [facility] [address] [place] [address] Protein mass conc 7.5 g/dL Normal 6.3-8.0 [facility] Comment on above: Performed By: #### C BCDIF, BETAMM, CMP, LIPA #### [facility] [address] [place] [address] Sodium molar conc 136 mmol/L Normal 136-144 [facility] Comment on above: Performed By: #### C BCDIF, BETAMM, CMP, LIPA #### [facility] [address] [place] [address] Urea nitrogen mass conc 10 mg/dL Normal 7-21 [facility] Comment on above: Performed By: #### C BCDIF, BETAMM, CMP, LIPA #### [facility] [address] [place] [address] ED NOTEon 10-17-2018 ED NOTE HNO ID: [id number] Author: Elba RecinosRnTigre Nguyen RN Service: ? Author Type: Registered Nurse Type: ED Notes Filed: 10/17/2018 7:10 PM Note Text: Pt was ambulatory with her discharge [facility] ED NOTE HNO ID: [id number] Author: Elba Nguyen RN Service: ? Author Type: Registered Nurse Type: ED Notes Filed: 10/17/2018 7:08 PM Note Text: Pt was discharged home and will follow up with her family medical dr as per needed [facility] ED NOTE HNO ID: [id number] Author: Elba RecinosRn) MICHAEL Nguyen Service: ? Author Type: Registered Nurse Type: ED Notes Filed: 10/17/2018 7:00 PM Note Text: viktor bell has rounded [facility] ED NOTE HNO ID: [id number] Author: Elba RecinosRn) MICHAEL Nguyen Service: ? Author Type: Registered Nurse Type: ED Notes Filed: 10/17/2018 5:56 PM Note Text: Pt report was received Pt is in a position of comfort [facility] ED NOTE HNO ID: [id number] Author: Charleen RecinosRn) MICHAEL Clifton Service: ? Author Type: Registered Nurse Type: ED Notes Filed: 10/17/2018 4:39 PM Note Text: In July pt found out from a scope that she has H. Pylori, per pt they tried with the flagyl to treat it but she got cold sweats and felt like she was going to pass out from it. Pt states she is suppose to come in to get evaluated for a pcn allergy. Pt has left side abd pain today with black stool that's like paint chips. Pt reports nausea and a unintentional 20lbs weight loss over the last two months [facility] ED PROV NOTEon 10-17-2018 Protein mass conc HNO ID: [id number] Author: Viktor Smith ([place]) Service: Emergency Medicine Author Type: Physician Dry Folder Cloth Type: ED Provider Notes Filed: 10/17/2018 6:56 PM Note Text: ED Provider Note Patient Name: Que Escobar SERVICE DATE: 10/17/18 History Patient presents with: Abdominal Pain: left, black stools 28-year-old female with a past medical history of anxiety, bipolar disorder, GERD, history of H. pylori infection, presents to the emergency department today with a chief complaint of abdominal pain. Patient also complained of dark tarry stools. Patient also complains of nausea and weight loss over the last 2 months now. She denies any chest pain. Denies any urinary symptoms. Denies any constipation or obstipation. She stated that she's had a history of H. pylori but was never treated because she was not tolerating and Flagyl and is penicillin allergic. Patient denies any fever or chills, denies any vaginal bleeding or discharge from PAST MEDICAL HISTORY Diagnosis Date - Anxiety - Arrhythmia - Bipolar affect, depressed (HCC) - Chlamydia 05/2009 - DJD (degenerative joint disease) - GERD (gastroesophageal reflux disease) 09/18/2015 - HGSIL (high grade squamous intraepithelial lesion) on Pap smear of cervix 2015 - History of Helicobacter pylori infection 09/18/2015 - IBS (irritable bowel syndrome) 2017 - Interstitial cystitis 2018 - MVP (mitral valve prolapse) - Orthostatic hypotension 09/18/2015 - Palpitations - Paroxysmal supraventricular tachycardia (HCC) 09/18/2015 - PVC (premature ventricular contraction) 09/18/2015 - Seizures (HCC) - Syncope PAST SURGICAL HISTORY Procedure Laterality Date - COLONOSCOP W/ OR W/O [facility] SPEC 11/21/2013 Colonoscopy AND EGD - COLONOSCOP W/ OR W/O [facility] SPEC 07/20/2017 Colonoscopy - EGD W/O OR W/BRUSH/WASH 07/20/2017 EGD - EGD W/O OR W/BRUSH/WASH 08/08/2018 EGD - LAPAROSCOPIC CHOLEYCYSTECTOMY 09/14/2009 - LEEP PROCEDURE ([employer] DE[employer])_*[place] 09/09/2015 - SVT ABLATION 05/2015 procedure was incomplete and did not work per patient- records requested FAMILY HISTORY Problem Relation Age of Onset - Psychiatry Mother Depression - Arthritis Maternal Grandmother - Arthritis Maternal Grandfather - Hypertension Maternal Grandfather - Lipids Maternal Grandfather - Alcohol/Drug Maternal Uncle - Alcohol/Drug Maternal Uncle - Alcohol/Drug Maternal Uncle - Alcohol/Drug Maternal Uncle - Seizures Sister Social History Tobacco Use - Smoking status: Current Every Day Smoker Packs/day: 1.00 Years: 15.00 Pack years: 15.00 Types: Cigarettes Last attempt to quit: 05/23/2010 Years since quittin.4 - Smokeless tobacco: Never Used Substance and Sexual Activity - Alcohol use: No - Drug use: No - Sexual activity: Yes Partners: Male control/protection: Condom, Inserts Comment: Nuvaring ALLERGIES Allergen Reactions - Flagyl [Metronidazo* GI Upset nausea, vomiting and cold sweats lightheaded like going to pass out. - Penicillins Rash CHILDHOOD REACTION - Antidepressants [Tr* Other: See Comments Suicidal thoughts - Lactose GI Upset Review of Systems Constitutional: Negative for chills and fever. HENT: Negative for congestion and sore throat. Eyes: Negative for photophobia and visual disturbance. Respiratory: Negative for chest tightness, shortness of breath and wheezing. Cardiovascular: Negative for chest pain and palpitations. Gastrointestinal: Positive for abdominal pain, blood in stool and nausea. Genitourinary: Negative for dysuria and hematuria. Musculoskeletal: Negative for neck pain and neck stiffness. Skin: Negative for color change. Neurological: Negative for dizziness and headaches. Psychiatric/Behavioral: Negative for agitation and confusion. Physical Exam BP 102/69 Pulse 98 Temp (Src) 98.7 (Oral) Resp 18 Wt 132 lb (59.9kg) SpO2 100% O2 Therapy: Room Air Physical Exam Constitutional: She is oriented to person, place, and time. She appears well-developed and well-nourished. HENT: Head: Normocephalic and atraumatic. Eyes: Conjunctivae and EOM are normal. Neck: Normal range of motion. Neck supple. Cardiovascular: Normal rate and regular rhythm. Pulmonary/Chest: Effort normal and breath sounds normal. No respiratory distress. She has no wheezes. Abdominal: Soft. Bowel sounds are normal. Abdomen is soft. Bowel sounds active in all 4 quadrants. TTP over the Left lower quadrant. There is no guarding or rebound tenderness on exam, no murphys or McBurneys, no mass or hernia appreciated on exam, no CVA tenderness Musculoskeletal: Normal range of motion. Neurological: She is alert and oriented to person, place, and time. Skin: Skin is warm and dry. Psychiatric: She has a normal mood and affect. Her behavior is normal. Diagnostic Testing ED Labs Ordered and Reviewed COMP METABOLIC PANEL CBC + DIFF LIPASE BLD HCG QUAL BLD URINALYSIS CT ABD/PEL W IVCON Final Result IMPRESSION: 1. No acute findings in the abdomen or pelvis. 2. Nonobstructing renal calculi bilaterally. Icer Hand: PSCB Transcribe Date/Time: Oct 17 2018 6:22P Dictated by : AG ALLAN MD This examination was interpreted and the report reviewed and electronically signed by: AG ALLAN MD on Oct 17 2018 6:35PM EST Results for orders placed or performed during the hospital encounter of 10/17/18 COMP METABOLIC PANEL Result Value Ref Range Protein, Total 7.5 6.3 - 8.0 g/dL Albumin 4.0 3.9 - 4.9 g/dL Calcium 8.8 8.5 - 10.2 mg/dL Bilirubin, Total 0.5 0.2 - 1.3 mg/dL Alkaline Phosphatase 66 34 - 123 U/L AST 14 13 - 35 U/L Glucose 99 74 - 99 mg/dL BUN 10 7 - 21 mg/dL Creatinine 0.83 0.58 - 0.96 mg/dL Sodium 136 136 - 144 mmol/L Potassium 3.9 3.7 - 5.1 mmol/L Chloride 104 97 - 105 mmol/L CO2 22 22 - 30 mmol/L Anion Gap 10 9 - 18 mmol/L ALT 11 7 - 38 U/L eGFR- >60 eGFR-All Other Races >60 . CBC + DIFF Result Value Ref Range WBC 7.70 3.70 - 11.00 k/uL RBC 4.87 3.90 - 5.20 m/uL Hemoglobin 14.8 11.5 - 15.5 g/dL Hematocrit 44.4 36.0 - 46.0 % MCV 91.2 80.0 - 100.0 fL MCH 30.4 26.0 - 34.0 pG MCHC 33.3 30.5 - 36.0 g/dL RDW-CV 13.1 11.5 - 15.0 % Platelet Count 283 150 - 400 k/uL MPV 10.7 9.0 - 12.7 fL Neut% 58.2 % Abs Neut (ANC) 4.48 1.45 - 7.50 k/uL Lymph% 29.6 % Abs Lymph 2.28 1.00 - 4.00 k/uL [place]% 8.3 % Abs [place] 0.64 <0.87 k/uL Eosin% 3.4 % Abs Eosin 0.26 <0.46 k/uL Baso% 0.5 % Abs Baso 0.04 <0.11 k/uL LIPASE BLD Result Value Ref Range Lipase 35 16 - 61 U/L HCG QUAL BLD Result Value Ref Range HCG, Qualitative Negative Negative URINALYSIS Result Value Ref Range Color Yellow Yellow Appearance (U) Clear Clear Glucose, Urine Negative Negative mg/dL Bilirubin, Urine Negative Negative Ketones, Urine Negative Negative Specific [place], Ur 1.015 1.001 - 1.029 Hemoglobin/Blood,Ur Negative Negative pH, Urine 6.5 5.0 - 8.0 Protein, Urine Negative Negative mg/dL Urobilinogen 0.2 0.2 - 1.0 Nitrites Negative Negative Leukest Negative Negative *Note: Due to a large number of results and/or encounters for the requested time period, some results have not been displayed. A complete set of results can be found in Results Review. Procedures ED Course / Clinical Impression Clinical Impressions as of Oct 17 1852 Generalized abdominal pain Nausea (R10.84) Generalized abdominal pain (primary encounter diagnosis) Comment: acute Plan: Fluids See pcp See gi Avoid motrin Rest Return to ed if sx worsen (R11.0) Nausea Comment: acute Plan: Fluids See pcp See gi Avoid motrin Rest Return to ed if sx worsen MDM / Disposition / Plan The medical record is reviewed.Triage note is reviewed and incorporated. The nursing note is reviewed and consistent with patient's history and physical exam findings. The vital signs were reviewed and the vital signs are : BP 102/69 Pulse (!) 98 Temp 37.1 ?C (98.7 ?F) (Oral) Resp 18 Wt 59.9 kg (132 lb) SpO2 100% BMI 21.31 kg/m? CT directly visualized by me and independently interpreted by radiologist showed : ?No acute findings in the abdomen or pelvis. 2. ?Nonobstructing renal calculi bilaterally. This is a well-appearing female with a pmh of anxiety, bipolar disorder, who presents to the ED with a chief complaint of abdominal pain, nausea, who is, afebrile , hemodynamically stable, in no acute distress patient whose symptoms are controlled in the ED with ivf . The plan is to obtain labs, ct. Based on patient's pmh, chief complaint and physical exam findings, differential diagnoses include but is not limited, acute abdomen vs colitis, vs pregnacy, vs pud vs anemia. LABS Reveal : cbc and cmp within normal limits lipase within normal limits DIFFERENTIAL DIAGNOSES: : Based on patient's physical exam findings, clinical picture, lab results and imaging studies that were performed here today in the ED, at this time, the following differential diagnoses such as acute abdomen is less likely due to unremarkable ct. The following differential diagnosis such as anemia is less likely due to unremarkable cbc.The following differential diagnosis such as electrolyte imbalance is less likely due to unremarkable cmp.The following differential diagnosis such as is less likely due to unremarkable hcg. ASSESSMENT AND PLAN: Patient presents today for abdominal pain. She also told me that she has dark tarry stools. She's had a history of H. pylori. She is not being treated for this. She feels better after IV fluids. CT unremarkable. Labs are unremarkable. She will go home with close follow-up with GI. She is on Zofran. DISCHARGE INSTRUCTIONS The patient has remained hemodynamically stable throughout the entire ED visit and is without objective evidence or laboratory findings for acute process requiring urgent intervention or hospitalization. The patient and/or family had all the tests and diagnosis explained to them and were given both verbal and written discharge instructions. I answered the patient's question as well as family to the best of my ability about the patient's symptoms. The patient is stable for discharge, and patient is instructed to follow up with pcp and educated to return to ed if symptoms worsen or starts to experience any new symptoms. I did educate the patient that at this time there is no indication for urgent intervention or hospitalization, however certain conditions or diagnosis sometimes take time to present, therefore if symptoms worsen, patient should presents back to the ED. Patient and family are agreeable with plan and are comfortable with the disposition. . At this time, based on the patient's history, physical exam findings, lab results and clinical picture , the most likely diagnosis is abdominal pain Pt educated on the most common causes of Abdominal pain Pt instructed to follow up with PCP in 1-2 days Discharge care instructions, medications, follow up instructions, and reasons to return to the ED immediately, such as worsening of symptoms or any new symptoms, were provided verbally and in writing to patient (patient guardian / underwriting sales representative), who verbalized understanding. This note was partially generated using [employer] voice recognition system, and there may be some incorrect words, spellings, and punctuation that were not noted in checking the note before saving SIGNATURE: ADIA Workman ([place]) 10/17/18 1856 Normal [facility] Lipaseon 10-17-2018 Lipase enzyme act/vol 35 U/L Normal 16-61 [facility] Comment on above: Performed By: #### C BCDIF, BETAMM, CMP, LIPA ####[facility] [id number] [place] [id number] Serum Beta HCG [facility]///[place] D/SL/LOon 10-17-2018 HCG.beta subunit Qn Negative Normal Negative [facility] Comment on above: Result Comment: Fals e positives and false negatives are rare but have been described. Clinical correlation of the findings is recommended. Performed By: #### C BCDIF, BETAMM, CMP, LIPA #### [facility] Laboratory [address] [address] Urinalysison 10-17-2018 Bilirubin, Urine Negative Normal Negative [facility] Comment on above: Performed By: #### U A ####[facility] [id number] [place] [address] Clarity Nom (U) Clear Normal Clear [facility] Comment on above: Performed By: #### U A ####[address] [address] Color Nom (U) Yellow Normal Yellow [facility] Comment on above: Performed By: #### U A ####[address] [address] Glucose Ql (U) Negative Normal Negative [facility] Comment on above: Performed By: #### U A ####[facility] [id number] [place] [address] Hemoglobin/Blood,Ur Negative Normal Negative [facility] Comment on above: Performed By: #### U A ####[address] [address] Ketones Ql (U) Negative Normal Negative [facility] Comment on above: Performed By: #### U A ####[address] [address] Leukest Negative Normal Negative [facility] Comment on above: Performed By: #### U A ####[facility] [id number] [place] [address] Nitrite Ql (U) Negative Normal Negative [facility] Comment on above: Performed By: #### U A ####[address] [address] pH (Bld) 6.5 Normal 5.0-8.0 [facility] Comment on above: Performed By: #### U A ####[address] [address] Protein mass conc (U) Negative Normal Negative [facility] Comment on above: Performed By: #### U A ####[facility] [id number]721-5160 Specific [place], Ur 1.015 Normal 1.001-1.029 [facility] Comment on above: Performed By: #### U A ####[facility] [id number] [id number] Urobilinogen Qn (U) 0.2 Normal 0.2-1.0 [facility] Comment on above: Performed By: #### U A ####[facility] [address]vks[address]ce4306 [address] Basic Metabolic Panelon - Calcium mass conc 9.5 mg/dL Normal 8.4-10.4 [facility] Comment on above: Performed By: #### H EMDF, BMP3 #### [facility] [address] [place] [address] Glucose mass conc 92 mg/dL Normal 70-100 [facility] Comment on above: Performed By: #### H EMDF, BMP3 #### [facility] [address] [place] [address] Urea nitrogen mass conc 13 mg/dL Normal 7-20 [facility] Comment on above: Performed By: #### H EMDF, BMP3 #### [facility] [address] [place] [address] Anion gap molar conc 8 Normal [facility] Comment on above: Performed By: #### H EMDF, BMP3 #### [facility] [address] [place] [address] CO2 molar conc 25 mmol/L Normal 22-30 [facility] Comment on above: Performed By: #### H EMDF, BMP3 #### [facility] [address] [place] [address] Creatinine mass conc 0.74 mg/dL Normal 0.52-1.25 [facility] Comment on above: Performed By: #### H EMDF, BMP3 #### [facility] [address] [place] [address] GFR/1.73 sq M predicted among blacks MDRD vol rate/area (S/P/Bld) mL/min/{1.73_m2} Normal >60 [facility] Comment on above: Performed By: #### H ADAMS, BMP3 #### [facility] [address] [place] [address] GFR/1.73 sq M predicted among non-blacks MDRD vol rate/area (S/P/Bld) mL/min/{1.73_m2} Normal >60 [facility] Comment on above: Result Comment: Sour ce- MDRD equation with creatinine calibration to IDMS(NKDEP) eGFR not recommended for drug dose adjustment Performed By: #### H ADAMS, BMP3 #### [facility] [address] [place] [address] Potassium molar conc 3.6 mmol/L Normal 3.5-5.1 [facility] Comment on above: Performed By: #### H DICKF, BMP3 #### [facility] [address] [place] [address] Chloride molar conc 106 mmol/L Normal 98-107 [facility] Comment on above: Performed By: #### H ADAMS, BMP3 #### [facility] [employer] [facility] [address] [place] [address] Sodium molar conc 139 mmol/L Normal 135-145 [facility] Comment on above: Performed By: #### H ADAMS, BMP3 #### [facility] [address] [place] [address] HCG,Urine Qualon 09-18-2018 HCG.beta subunit ( test) Ql (U) Negative Normal Negative [facility] Comment on above: Result Comment: Preg fallon is the most common reason for HCG in urine, although choriocarcinoma, hydatidiform mole, and certain nontropho- blastic malignancies also result in detectable urinary HCG levels. Sensitivity = 20mIU/mL. Performed By: #### H CGUR, UAMAC, UAMIC #### [facility] [employer] [facility] [address] [place] [address] Hemogram w/ Autodiffon 09-18 Abs Baso Cnt 0.0 10*3/uL Normal 0.0-0.2 [facility] Comment on above: Performed By: #### H EMDF, BMP3 #### [facility] [address] [place] [address] Abs Neutrophile Cnt 4.9 10*3/uL Normal 1.8-7.0 [facility] Comment on above: Performed By: #### H EMDF, BMP3 #### [facility] [address] [place] [address] Basophils/100 WBC (Bld) 0.6 % Normal 0.0-2.0 [facility] Comment on above: Performed By: #### H EMDF, BMP3 #### [facility] [address] [place] [address] Eosinophils #/vol (Bld) 0.1 10*3/uL Normal 0.0-0.5 [facility] Comment on above: Performed By: #### H EMDF, BMP3 #### [facility] [address] [place] [address] Eosinophils/100 WBC (Bld) 1.4 % Normal 1.0-6.0 [facility] Comment on above: Performed By: #### H EMDF, BMP3 #### [facility] [address] [place] [address] Erythrocyte distribution width Ratio (RBC) 13.5 % Normal 11.5-14.5 [facility] Comment on above: Performed By: #### H EMDF, BMP3 #### [facility] [address] [place] [address] Granulocytes/100 WBC (Bld) 63.0 % Normal 40.0-80.0 [facility] Comment on above: Performed By: #### H EMDF, BMP3 #### [facility] [address] [place] [address] Hematocrit Volume Fraction (Bld) 39.8 % Normal 35.0-47.0 [facility] Comment on above: Performed By: #### H EMDF, BMP3 #### [facility] [address] [place] [address] Hemoglobin mass conc (Bld) 13.6 g/dL Normal 11.7-16.0 [facility] Comment on above: Performed By: #### H EMDF, BMP3 #### [facility] [address] [place] [address] Lymphocytes #/vol (Bld) 2.2 10*3/uL Normal 1.0-4.3 [facility] Comment on above: Performed By: #### H EMDF, BMP3 #### [facility] [address] [place] [address] Lymphocytes/100 WBC (Bld) 27.6 % Normal 20.0-40.0 [facility] Comment on above: Performed By: #### H EMDF, BMP3 #### [facility] [address] [place] [address] MCH Entitic mass (RBC) 30.9 pg Normal 26.0-34.0 [facility] Comment on above: Performed By: #### H EMDF, BMP3 #### [facility] [address] [place] [address] MCHC mass conc (RBC) 34.3 % Normal 32.0-36.0 [facility] Comment on above: Performed By: #### H EMDF, BMP3 #### [facility] [address] [place] [address] MCV Entitic volume (RBC) 90.0 fL Normal 79.0-98.0 [facility] Comment on above: Performed By: #### H EMDF, BMP3 #### [facility] [address] [place] [address] Monocytes #/vol (Bld) 0.6 10*3/uL Normal 0.0-0.8 [facility] Comment on above: Performed By: #### H EMDF, BMP3 #### [facility] [address] [place] [address] Monocytes/100 WBC (Bld) 7.4 % Normal 2.0-10.0 [facility] Comment on above: Performed By: #### H EMDF, BMP3 #### [facility] [address] [place] [address] Platelet mean volume Entitic volume (Bld) 8.1 fL Normal 7.4-10.4 [facility] Comment on above: Performed By: #### H EMDF, BMP3 #### [facility] [address] [place] [address] Platelets #/vol (Bld) 296 10*3/uL Normal 140-440 [facility] Comment on above: Performed By: #### H EMDF, BMP3 #### [facility] [address] [place] [address] RBC #/vol (Bld) 4.42 10*6/uL Normal 3.80-5.20 [facility] Comment on above: Performed By: #### H EMDF, BMP3 #### [facility] [address] [place] [address] WBC #/vol (Bld) 7.8 10*3/uL Normal 3.6-10.7 [facility] Comment on above: Performed By: #### H EMDF, BMP3 #### [facility] [address] [place] [address] Urinalysis,Macroon 9 Appearance Nom (U) CLEAR Normal Clear [facility] Comment on above: Performed By: #### H EMDF, CMP3, LIPA4 #### [facility] [address] [place] [address] Bilirubin,Ur Positive Normal Negative [facility] Comment on above: Performed By: #### H EMDF, CMP3, LIPA4 #### [facility] [address] [place] [address] Color Nom (U) YELLOW Normal Lt. Yellow [facility] Comment on above: Performed By: #### H EMDF, CMP3, LIPA4 #### [facility] [address] [place] [address] Glucose Ql (U) Negative Normal Negative [facility] Comment on above: Performed By: #### H EMDF, CMP3, LIPA4 #### [facility] [address] [place] [address] Ketone,Urine TRACE Normal Negative [facility] Comment on above: Performed By: #### H EMDF, CMP3, LIPA4 #### [facility] [address] [place] [address] Nitrite Ql (U) Negative Normal Negative [facility] Comment on above: Performed By: #### H EMDF, CMP3, LIPA4 #### [facility] [address] [place] [address] Occult Blood,Ur Negative Normal Negative [facility] Comment on above: Performed By: #### H EMDF, CMP3, LIPA4 #### [facility] [address] [place] [address] pH (U) 6.0 Normal 5.0-8.0 [facility] Comment on above: Performed By: #### H EMDF, CMP3, LIPA4 #### [facility] [address] [place] [address] Protein mass conc (U) TRACE Normal Negative [facility] Comment on above: Performed By: #### H EMDF, CMP3, LIPA4 #### [facility] [address] [place] [address] Specific [place],Urine 1.025 Normal 1.005-1.030 [facility] Comment on above: Performed By: #### H EMDF, CMP3, LIPA4 #### [facility] [address] [place] [address] Urobilinogen Qn (U) 1.0 mg/dL Normal 0-1 [facility] Comment on above: Performed By: #### H EMDF, CMP3, LIPA4 #### [facility] [address] [place] [address] WBC #/vol (Bld) Negative Normal Negative [facility] Comment on above: Performed By: #### H EMDF, CMP3, LIPA4 #### [facility] [address] [place] [address] Urinalysis,Microscopicon Bacteria LM.HPF #/area (Urine sed) Few (1-5) Normal Negative [facility] Comment on above: Performed By: #### H EMDF, CMP3, LIPA4 #### [facility] [address] [place] [address] Cast, Hyaline 3 - 5 Normal 0-1 [facility] Comment on above: Performed By: #### H EMDF, CMP3, LIPA4 #### [facility] [address] [place] [address] Epithelial cells LM.HPF #/area (Urine sed) 0 - 2 Normal 3-5 [facility] Comment on above: Performed By: #### H EMDF, CMP3, LIPA4 #### [facility] [address] [place] [address] Mucous Threads Moderate Normal Negative [facility] Comment on above: Performed By: #### H EMDF, CMP3, LIPA4 #### [facility] [address] [place] [address] RBC LM.HPF #/area (Urine sed) 0 - 2 Normal 0-2 [facility] Comment on above: Performed By: #### H EMDF, CMP3, LIPA4 #### [facility] [address] [place] [address] WBC LM.HPF #/area (Urine sed) 0 - 2 Normal 0-5 [facility] Comment on above: Performed By: #### H EMDF, CMP3, LIPA4 #### [facility] [address] [place] [address] [facility] Anion gap molar conc 12 mmol/L 10 - 20 mmol/L [facility] Calcium mass conc 8.3 mg/dL Low 8.4 - 10.2 mg/dL [facility] Chloride molar conc 110 mmol/L High 98 - 108 mmol/L [facility] Creatinine mass conc 1.13 mg/dL High 0.4 - 1 .1 mg/dL [facility] GFR/1.73 sq M predicted among non-blacks MDRD vol rate/area (S/P/Bld) The eGFR should be used for monitoring renal function only and not for medication dosing. [facility] GFR/1.73 sq M.predicted CKD-EPI vol rate/area (S/P/Bld) 66 >=60 mL/min/1.73 m2 [facility] Glucose mass conc 78 mg/dL 65 - 99 mg/dL [facility] HCO3 molar conc 22 mmol/L 21 - 32 mmol/L [facility] Potassium molar conc 3.4 mmol/L Low 3.5 - 5 .1 mmol/L [facility] Sodium molar conc 141 mmol/L 135 - 145 mmol/L [facility] Urea nitrogen mass conc 7 mg/dL Low 8 - 25 mg/dL [facility] Urea nitrogen/Creatinine mass ratio 6.2 mg/mg Low [facility] CBC WITH AUTO DIFFERENTIALon 09-01-2018 Basophils #/vol (Bld) 0.04 10*3/uL [facility] Basophils/100 WBC (Bld) 0.3 % [facility] Eosinophils #/vol (Bld) 0.12 10*3/uL [facility] Eosinophils/100 WBC (Bld) 0.9 % [facility] Erythrocyte distribution width Entitic volume (RBC) 13.3 % 11.6 - 14.8 % [facility] Hematocrit Volume Fraction (Bld) 38.6 % 36 - 46 % [facility] Hemoglobin mass conc (Bld) 12.9 g/dL 12 - 16 g/dL [facility] Immature granulocytes #/vol (Bld) 0.05 10*3/uL [facility] Immature granulocytes/100 WBC (Bld) 0.40 % [facility] Comment on above: The IG parameter is the percentage of metamyelocytes, myelocytes, and promyelocytes. Interpretation and review of laboratory results Abnormal [facility] Lymphocytes #/vol (Bld) 2.10 10*3/uL [facility] Lymphocytes/100 WBC (Bld) 16.4 % [facility] MCH Entitic mass (RBC) 30.1 pg 26 - 34 pg [facility] MCHC mass conc (RBC) 33.4 g/dL 31 - 37 g/dL [facility] MCV Entitic volume (RBC) 90.2 fL 80 - 100 fL [facility] Monocytes #/vol (Bld) 1.27 10*3/uL [facility] Monocytes/100 WBC (Bld) 9.9 % [facility] Neutrophils #/vol (Bld) 9.22 10*3/uL [facility] Neutrophils/100 WBC (Bld) 72.1 % [facility] Nucleated RBC #/vol (Bld) 0.00 10*3/uL [facility] Nucleated RBC/100 WBC Ratio (Bld) 0.0 % [facility] Platelet mean volume Entitic volume (Bld) 10.8 fL 9 - 15.5 fL [facility] Platelets #/vol (Bld) 226 10*3/uL [facility] RBC #/vol (Bld) 4.28 10*6/uL [facility] lth WBC #/vol (Bld) 12.80 10*3/uL [facility] alth CT KIDNEY STONEon 09-01-2018 Qvfu-co-gkncyryy left-sided hydroureteronephrosis secondary to an obstructing 3 mm very distal left ureteral calculus. [employer]™ Network/[employer] Workstation ID: [id number] [facility] EXAMINATION: CT KIDN EY STONE HISTORY: ORDERING SYSTEM PROVIDED HISTORY: Left Flank Pain, TECHNOLOGIST PROVIDED HISTORY: Reason for exam: right flank pain Illness/Other Encounter Type: Subsequent/Follow-up Additional signs and symptoms: left constant flank pain, known stones ORDERING SYSTEM PROVIDED DIAGNOSIS CODES: COMPARISON: None. TECHNIQUE: Dose reduction techniques were achieved by using automated exposure control and/or adjustment of mA and/or kV according to patient size and/or use of iterative reconstruction technique. Axial CT images were performed of the abdomen/pelvis utilizing kidney stone protocol; coronal and sagittal reformats were provided. FINDINGS: Limited visualization of the lung bases is unremarkable. The osseous structures are intact. Limited visualization of the liver demonstrates mild hepatic steatosis. The visualized portions of the spleen, pancreas and bilateral adrenal glands are unremarkable. The patient is status post cholecystectomy. The aorta is nonaneurysmal. No abdominal/pelvic lymphadenopathy is present. There is mobq-xg-fneazwli left-sided hydroureteronephrosis secondary to an obstructing 3 mm very distal left ureteral calculus as on series 2, image 98 (appearing just proximal to the ureterovesicular junction). Punctate nonobstructing bilateral renal calculi are noted otherwise. No hydronephrosis is noted at the right kidney. No bowel obstruction or discrete evidence of acute bowel inflammatory changes are noted. The appendix is unremarkable. The CT appearance of the bladder is otherwise unremarkable. The uterus is present with a probable ring-like intrauterine device. No pelvic free fluid is evident. [facility] Interface, Rad In Fu ji Speechq - 09/01/2018 9:28 PM EDT EXAMINATION: CT KIDNEY STONE HISTORY: ORDERING SYSTEM PROVIDED HISTORY: Left Flank Pain, TECHNOLOGIST PROVIDED HISTORY: Reason for exam: right flank pain Illness/Other Encounter Type: Subsequent/Follow-up Additional signs and symptoms: left constant flank pain, known stones ORDERING SYSTEM PROVIDED DIAGNOSIS CODES: COMPARISON: None. TECHNIQUE: Dose reduction techniques were achieved by using automated exposure control and/or adjustment of mA and/or kV according to patient size and/or use of iterative reconstruction technique. Axial CT images were performed of the abdomen/pelvis utilizing kidney stone protocol; coronal and sagittal reformats were provided. FINDINGS: Limited visualization of the lung bases is unremarkable. The osseous structures are intact. Limited visualization of the liver demonstrates mild hepatic steatosis. The visualized portions of the spleen, pancreas and bilateral adrenal glands are unremarkable. The patient is status post cholecystectomy. The aorta is nonaneurysmal. No abdominal/pelvic lymphadenopathy is present. There is qfqs-rj-vkxrvasg left-sided hydroureteronephrosis secondary to an obstructing 3 mm very distal left ureteral calculus as on series 2, image 98 (appearing just proximal to the ureterovesicular junction). Punctate nonobstructing bilateral renal calculi are noted otherwise. No hydronephrosis is noted at the right kidney. No bowel obstruction or discrete evidence of acute bowel inflammatory changes are noted. The appendix is unremarkable. The CT appearance of the bladder is otherwise unremarkable. The uterus is present with a probable ring-like intrauterine device. No pelvic free fluid is evident. IMPRESSION: Ajqc-gs-cjffuemg left-sided hydroureteronephrosis secondary to an obstructing 3 mm very distal left ureteral calculus. [employer] Network/[employer] Workstation ID: [id number] [facility] ED NOTEon 09-01-2018 ED NOTE HNO ID: [id number] Author: Abhijeet (Rn) Baldemar, RN Service: Emergency Medicine Author Type: Registered Nurse Type: ED Notes Filed: 09/01/2018 1:55 AM Note Text: RN walked in pts room and pts ripping IV out of her arm. Pt told to not do that and pt responded im leaving this leaving this fucking place pt asked why ? What happened? Pt responded she caught her bf with someone else and he is outsdoe talign to her and she wants to leave. Pt encouraged to stay and reminded she has a procedure scheduled for today and she responded I dont care I will pass this fucking stone by myself and stormed out the room . Pt refused to take her potassium medication [facility] ED NOTE HNO ID: [id number] Author: Abhijeet RecinosRn) Baldemar, RN Service: Emergency Medicine Author Type: Registered Nurse Type: ED Notes Filed: 08/31/2018 11:48 PM Note Text: ED CT notified pt ready [facility] ED NOTE HNO ID: [id number] Author: Tera Wang (Tech) Service: Emergency Medicine Author Type: Director Internal Audit Type: ED Notes Filed: 08/31/2018 10:14 PM Note Text: urine specimen obtained and sent. [facility] ED PROV NOTEon 09-01-2018 Protein mass conc HNO ID: [id number] Author: Ondina Segal MD Service: Emergency Medicine Author Type: Resident Type: ED Provider Notes Filed: 09/01/2018 1:58 AM Note Text: Attestation signed by Jayesh Partida at 09/01/2018 11:03 PM Attending Physician Attestation Note: Shukla findings confirmed. I saw the patient in coordination with the resident physician. I personally interviewed and examined the patient. I discussed the patient with the resident physician. I reviewed the resident physician's note. I was present for shukla portions of and personally supervised any/all procedures. I agree with the resident physician's findings and medical decision making unless otherwise documented. Signature: Jayesh Partida, Date: 09/01/2018 Time: 11:03 PM ED Resident Continuation of Care Note September 01, 2018 1:53 Iraj Escobar was endorsed to me by Dr. Tubbs. Briefly, the patient initially presented to the ED for refractory ureteral stone pain. Signout note reviewed Clinical Course: Previously diagnosed ureteral stone of unknown size. Seen by Urology at outpatient visit, unknown physician. Told to come to this ED for uncontrollable pain because we have 24 hour Urology. Labs show a leukocytosis, negative UA, mild BRAXTON. CT A/P shows a 3-4mm left distal ureteral stone with mild hydronephrosis. Signed out to me with Urology consult pending. Urology spoke with their attending, Dr. Best, and will admit the patient to their service with plan for lithotripsy at 0800 today. I informed the patient of this. Patient was then admitted in stable condition. Shortly after, I was informed by nursing that the patient had ripped her IV out and said that she was leaving, referencing an issue with her boyfriend. Patient left before receiving any discharge instructions or follow-up instructions. Urology resident notified via text page. Ondina Segal, PGY2 Ondina (Res) MD Luzma Resident 09/01/18 0158 Jayesh Partida 09/01/18 2303 [facility] Protein mass conc HNO ID: [id number] Author: Hitesh Restrepo MD Service: Emergency Medicine Author Type: Physician Type: ED Provider Notes Filed: 09/01/2018 2:46 PM Note Text: Attending Note I evaluated the patient and personally participated in the shukla components. I agree with the resident's findings and plan as documented and have discussed the case and management of the patient's care with the resident. PE: Patient non-toxic appearing. Appears in discomfort. Awake and alert. Heart tachy and regular. Lungs clear. Abd soft, non-tender, and non-distended. Back with CVA tenderness on the left. Patient was at [facility] ED yesterday. Stated they did an ultrasound and x-ray and diagnosed the stone. She followed up with a Urologist today. Does not rememeber their name. Was seen at [facility]. 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 Labs here show leukocytosis. Elevated Cr. UA with some blood but no signs of infection. Will medicate here. Since she did not have CT yesterday will get one today. Likely Urology consult after CT. Patient signed out to Dr. Partida pending CT results. Signature: Hitesh Restrepo MD Date: 08/31/2018 Time: 11:07 PM Hitesh Restrepo MD 09/01/18 1446 [facility] Protein mass conc HNO ID: [id number] Author: Hitesh Restrepo MD Service: Emergency Medicine Author Type: Physician Type: ED Provider Notes Filed: 09/01/2018 2:45 PM Note Text: ED Provider Note Patient Name: Que Escobar SERVICE DATE: 08/31/18 History Patient presents with: Flank Pain: Pt comes to ED with complaints of a kidney stone. Pt states she went [place] and followed up with a urologist. Pt scheduled surgery but states the pain increased. Pt states they told her to come to ED for admission to have surgery. Pt states pain is on the left side. This patient is a 28-year-old female with a past medical history significant for bipolar disorder, IBS, arrhythmias, orthostatic hypotension, seizures, chronic pelvic pain and interstitial cystitis presents to emergency department with left flank pain as well as left lower quadrant pain. Patient also endorses nausea and vomiting that has been present for the last 4 days. Patient states was seen at [facility] ER and diagnosed with a kidney stone and referred to urology. Patient states for urology earlier today and was scheduled for outpatient urologic procedure but was advised by the urologist that if develops worsening symptoms she should go to the emergency department for immediate lithotripsy. Patient states this evening she had worsening pain despite taking ibuprofen and Percocet as prescribed hence coming to the emergency department. Patient however denies any fevers, chills, urinary symptoms or hematuria. History provided by: Patient historical interpreter used: No PAST MEDICAL HISTORY Diagnosis Date - Anxiety - Arrhythmia - Bipolar affect, depressed (HCC) - Chlamydia 05/2009 - DJD (degenerative joint disease) - GERD (gastroesophageal reflux disease) 09/18/2015 - HGSIL (high grade squamous intraepithelial lesion) on Pap smear of cervix 2015 - History of Helicobacter pylori infection 09/18/2015 - IBS (irritable bowel syndrome) 2017 - Interstitial cystitis 2018 - MVP (mitral valve prolapse) - Orthostatic hypotension 09/18/2015 - Palpitations - Paroxysmal supraventricular tachycardia (HCC) 09/18/2015 - PVC (premature ventricular contraction) 09/18/2015 - Seizures (HCC) - Syncope PAST SURGICAL HISTORY Procedure Laterality Date - COLONOSCOP W/ OR W/O [facility] SPEC 11/21/2013 Colonoscopy AND EGD - COLONOSCOP W/ OR W/O [facility] SPEC 07/20/2017 Colonoscopy - EGD W/O OR W/BRUSH/WASH 07/20/2017 EGD - EGD W/O OR W/BRUSH/WASH 08/08/2018 EGD - LAPAROSCOPIC CHOLEYCYSTECTOMY 09/14/2009 - LEEP PROCEDURE ([employer] DEPT)_*FL 09/09/2015 - SVT ABLATION 05/2015 procedure was incomplete and did not work per patient- records requested FAMILY HISTORY Problem Relation Age of Onset - Psychiatry Mother Depression - Arthritis Maternal Grandmother - Arthritis Maternal Grandfather - Hypertension Maternal Grandfather - Lipids Maternal Grandfather - Alcohol/Drug Maternal Uncle - Alcohol/Drug Maternal Uncle - Alcohol/Drug Maternal Uncle - Alcohol/Drug Maternal Uncle - Seizures Sister Social History Tobacco Use - Smoking status: Current Every Day Smoker Packs/day: 0.50 Years: 15.00 Pack years: 7.50 Types: Cigarettes Last attempt to quit: 05/23/2010 Years since quittin.2 - Smokeless tobacco: Never Used Substance and Sexual Activity - Alcohol use: No - Drug use: No - Sexual activity: Yes Partners: Male control/protection: Condom, Inserts Comment: Nuvaring ALLERGIES Allergen Reactions - Antidepressants [Tr* Other: See Comments Suicidal thoughts - Lactose GI Upset - Penicillins CHILDHOOD REACTION Review of Systems Constitutional: Negative for activity change, chills and fever. HENT: Negative for postnasal drip, rhinorrhea, sore throat, trouble swallowing and voice change. Eyes: Negative for pain, discharge and itching. Respiratory: Negative for cough, shortness of breath and wheezing. Cardiovascular: Negative for chest pain and palpitations. Gastrointestinal: Positive for abdominal pain, nausea and vomiting. Negative for blood in stool and constipation. Genitourinary: Positive for flank pain. Negative for decreased urine volume, dysuria and hematuria. Musculoskeletal: Negative for arthralgias and back pain. Skin: Negative for color change, pallor and rash. Neurological: Negative for dizziness, syncope and light-headedness. Physical Exam BP 94/72 Pulse 119 Temp (Src) 97.9 (Oral) Resp 18 Ht 5' 6 (1.68m) Wt 140 lb (63.5kg) SpO2 100% BMI 22.61 kg/(m2). O2 Therapy: Room Air Physical Exam Constitutional: She is oriented to person, place, and time. No distress. HENT: Mouth/Throat: Oropharynx is clear and moist. No oropharyngeal exudate. Eyes: Right eye exhibits no discharge. Left eye exhibits no discharge. Neck: No tracheal deviation present. Cardiovascular: Normal rate, regular rhythm and normal heart sounds. No murmur heard. Pulmonary/Chest: Effort normal and breath sounds normal. No stridor. No respiratory distress. She has no wheezes. She has no rales. Abdominal: Soft. Bowel sounds are normal. There is tenderness in the left lower quadrant. There is CVA tenderness. CVA tenderness. Lymphadenopathy: She has cervical adenopathy. Neurological: She is alert and oriented to person, place, and time. Skin: Skin is warm. Capillary refill takes less than 2 seconds. She is not diaphoretic. No erythema. No pallor. Nursing note and vitals reviewed. Diagnostic Testing ED Labs Ordered and Reviewed URINALYSIS WITH MICROSCOPIC (AK,AV,EU,FV,HL,BASHIR,MM,S P) - Abnormal; Notable for the following components: Result Value Ref Range Ketones, Urine TRACE (*) Negative mg/dL Protein, Urine 30 (*) Negative mg/dL Bilirubin, Urine see below (*) Negative RBC, Urine 5.9 (*) 0.0 - 5.0 /hpf Hyaline Cast 1.4 (*) 0.0 - 1.0 /lpf All other components within normal limits HCG QUALITATIVE URINE (AK,AV,EU,FV,HL,BASHIR,MM,S P) - Abnormal; Notable for the following components: Specific [place], Ur 1.032 (*) 1.005 - 1.030 All other components within normal limits CBC + AUTO DIFF (AK,AV,EU,FV,HL,BASHIR,MM,S P) - Abnormal; Notable for the following components: WBC 14.46 (*) 3.98 - 10.04 thou/cmm All other components within normal limits BASIC METABOLIC PANEL (AK,AV,EU,FV,HL,BASHIR,MM,S P) - Abnormal; Notable for the following components: Potassium 3.2 (*) 3.5 - 5.1 mEq/L Chloride 108 (*) 98 - 107 mEq/L Creatinine 1.37 (*) 0.51 - 0.95 mg/dL All other components within normal limits MDRD GFR Procedures ED Course / Clinical Impression ED Course as of Sep 01 1445 Others' Documentation MonAug 31, 2018 2318 WBC: (!) 14.46 [PK] ED Course User Index [PK] Misty (Res) MD Arley Clinical Impressions as of Sep 01 1445 Ureteral stone MDM / Disposition / Plan This is a 28-year-old female recently diagnosed with left ureteric stone presenting to the emergency department for evaluation for worsening symptoms. Patient's presentation is concerning for worsening hydronephrosis, infected stone, pyelonephritis. Patient's workup was remarkable for leukocytosis with a white count of 14.4 likely reactive as patient has not UTI. Patient had no electrolyte abnormalities, she however has BRAXTON with creatinine at 1.32 up from baseline of 1. Patient was also noted to be slightly hypokalemic with potassium at 3.2 likely secondary to vomiting. Potassium was replaced in the emergency department. We'll obtain a CT abdomen and pelvis to evaluate the kidney stone as he could not find the records from the outside hospital. CT scan revealedLeft distal ureter 3-4 mm stone with secondary mild left urinary tract obstruction. Small bilateral nonobstructing kidney stones. Imaging and lab results were discussed with the patient. Educated the patient will consult urology here for further recommendations. Patient verbalized understanding of information given call placed to urology. Patient signed out to Dr. Segal with urology recommendations pending. Additional Tests or Interventions: IV Fluids IV fluids were given for the following reasons routine maintenance. SIGNATURE: MD Misty Bartlett (Res) MD Arley Resident 09/01/18 0031 Attending Note I evaluated the patient and personally participated in the shukla components. I agree with the resident's findings and plan as documented and have discussed the case and management of the patient's care with the resident. Please see separate attending note. Signature: Hitesh Restrepo MD Date: 09/01/2018 Time: 2:45 PM Hitesh Restrepo MD 09/01/18 1440 Normal [facility] Hepatic Function Panel (LFT) on 09-01-2018 Albumin mass conc 3.2 g/dL 3.2 - 5.2 g/dL [facility] ALP enzyme act/vol 56 U/L 40 - 140 U/L [facility] ALT enzyme act/vol 22 U/L 14 - 65 U/L [facility] AST enzyme act/vol 16 U/L 0 - 45 U/L [facility] Bilirubin mass conc 0.9 mg/dL 0 - 1.3 mg/dL [facility] Bilirubin.conjugated mass conc 0.2 mg/dL 0 - 0.4 mg/dL [facility] Interpretation and review of laboratory results Normal [facility] Protein mass conc 6.9 g/dL 6 - 8 g/dL [facility] Lipaseon 09-01-2018 Lipase enzyme act/vol 60 U/L Low 73 - 393 U/L [facility] Otheron 09-01-2018 Extra Tube Hold for add-ons. [facility] Comment on above: Auto resulted. Interpretation and review of laboratory results Abnormal [facility] URINALYSISon 09-01-2018 Bacteria Auto Ql (U) None Seen None Se en /hpf [facility] Bilirubin Ql (U) Negative Negative [facility] th Clarity Refractometry automated Nom (U) Clear Clear [facility] Color Nom (U) Yellow Colorless, Yellow [facility] Epithelial cells.squamous Auto #/area (Urine sed) <1 [facility] Glucose Automated test strip mass conc (U) Negative Negative mg/dL [facility] Hemoglobin Automated test strip Ql (U) Negative Negative [facility] Interpretation and review of laboratory results Abnormal [facility] Ketones mass conc (U) >=80 Abnormal Negati ve mg/dL [facility] Leukocyte esterase Automated test strip Ql (U) Negative Negative [facility] Mucus Auto #/area (Urine sed) Rare None Seen, Rare /lpf [facility] Nitrite Automated test strip Ql (U) Negative Negative [facility] pH (U) 5.0 [pH] [facility] Protein mass conc (U) 30 Abnormal Negati ve mg/dL [facility] Comment on above: False positive resul ts may occur in urines with large amounts of hemoglobin, pH greater than 8.0, contrast medium, or disinfectants including ammonium compounds. RBC Auto #/area (Urine sed) <1 [facility] Specific gravity Relative Density (U) 1.021 [facility] Urobilinogen mass conc (U) <2.0 <2.0 mg/dL [facility] WBC Auto #/area (Urine sed) 4 [facility] Microscopic examinat ion is performed on all urinalysis samples and only positive findings are reported. The test for blood on the chemical analytic portion of urinalysis may also be positive due to hemoglobinuria and myoglobinuria and if red blood cells are present they are quantified by microscopic examination. [facility] Urine Pregnancyon 09-01-2018 HCG ( test) Ql (U) Negative Negative [facility] Interpretation and review of laboratory results Normal [facility] ED Triage Noteon 08-31-2018 ED Triage Note HNO ID: [id number] Author: Lelia Caro (Pa) Service: ? Author Type: Physician Dry Folder Cloth Type: ED Triage Notes Filed: 08/31/2018 9:58 PM Note Text: ED INTAKE NOTE Patient Name: Que Escobar Service Date: 08/31/18 BRIEF HPI: Patient is a 28-year-old female, presenting to the ED today for increased left-sided flank pain with nausea and vomiting that she states is due to a kidney stone that she was diagnosed with yesterday at an outside hospital. BRIEF EXAM: Awake and Alert RRR CTAB Abd soft/NT/ND; no rebound/guarding JOHANSEN INTAKE WORKUP: Bloodwork: CBC BMP Urinalysis Test SIGNATURE: Lelia Caro PA-C [facility] US Pelvis TA/TVon 08-23-2018 US Pelvis TA/TV Patient Name: QUE ESCOBAR Ultrasound Exam Date/Time 08/22/2018 22:02:00 EDT Exam US Pelvis TA/TV Ordering Physician PATRICK BUENO PETER J Accession Number [id number] CPT4 Codes 66057 (US Pelvis TA/TV), 43657 (US Transvaginal) Reason For Exam Right lower quadrant pain Report TRANSABDOMINAL and TRANSVAGINAL ULTRASOUND INDICATION: Abdominal pain x1 year and pelvic pain for the past several days. COMPARISON: None Transvaginal ultrasound of pelvis for optimal imaging of uterus and ovaries FINDINGS: The uterus is anteverted and measures 7.3 x 3.6 x 5 cm. No discrete fibroids are seen. There is a small, approximately 1.5 mm focal, nonshadowing hyperechogenicity along the anterior endometrial interface in the fundus. Otherwise, the visualized portions of the endometrial stripe are within normal limits, measuring 3 mm in thickness. The right ovary measures 1.2 x 2.5 x 1.3 cm. Multiple right ovarian follicles are present. The left ovary measures 1.7 x 1.1 x 2.2 cm. Multiple left ovarian follicles are present. Normal color and spectral Doppler flow is seen within both ovaries. IMPRESSION: Small nonspecific focal echogenicity in the region of the endometrial myometrial surface, which is nonspecific. Differential considerations include a tiny polyp or small area of focal endometrial hyperplasia. There are no additional findings to suggest adenomyosis. Report Dictated on Final Dictating Physician: MD LOVELL KERISTEN L Signed Date and Time: 08/22/2018 10:56 pm Signed by: MD LOVELL KERISTEN L Transcribed Date and Time: 08/22/2018 10:57 Normal [facility] Comp Metabolic Panelon 08-22 Calcium mass conc 9.3 mg/dL Normal 8.4-10.4 [facility] Comment on above: Performed By: #### H EMDF, CMP3, LIPA4 #### [facility] [address] [place] [address] ALP enzyme act/vol 58 U/L Normal 38-126 [facility] Comment on above: Performed By: #### H EMDF, CMP3, LIPA4 #### [facility] [address] [place] [address] ALT enzyme act/vol 25 U/L Normal 13-69 [facility] Comment on above: Performed By: #### H EMDF, CMP3, LIPA4 #### [facility] [address] [place] [address] Anion gap molar conc 8 Normal [facility] Comment on above: Performed By: #### H EMDF, CMP3, LIPA4 #### [facility] [address] [place] [address] AST enzyme act/vol 12 U/L Low 15-46 [facility] Comment on above: Performed By: #### H EMDF, CMP3, LIPA4 #### [facility] [address] [place] [address] Bilirubin mass conc 0.6 mg/dL Normal 0.2-1.3 [facility] Comment on above: Performed By: #### H EMDF, CMP3, LIPA4 #### [facility] [address] [place] [address] CO2 molar conc 26 mmol/L Normal 22-30 [facility] Comment on above: Performed By: #### H EMDF, CMP3, LIPA4 #### [facility] [address] [place] [address] Creatinine mass conc 1.10 mg/dL Normal 0.52-1.25 [facility] Comment on above: Performed By: #### H EMDF, CMP3, LIPA4 #### [facility] [address] [place] [address] GFR/1.73 sq M predicted among blacks MDRD vol rate/area (S/P/Bld) mL/min/{1.73_m2} Normal >60 [facility] Comment on above: Performed By: #### H EMDF, CMP3, LIPA4 #### [facility] [address] [place] [address] GFR/1.73 sq M predicted among non-blacks MDRD vol rate/area (S/P/Bld) 59.0 mL/min/{1.73_m2} Normal >60 [facility] Comment on above: Result Comment: Sour ce- MDRD equation with creatinine calibration to IDMS(NKDEP) eGFR not recommended for drug dose adjustment Performed By: #### H EMDF, CMP3, LIPA4 #### [facility] [address] [place] [address] Glucose mass conc 89 mg/dL Normal 70-100 [facility] Comment on above: Performed By: #### H EMDF, CMP3, LIPA4 #### [facility] [address] [place] [address] Protein mass conc 6.8 g/dL Normal 6.3-8.2 [facility] Comment on above: Performed By: #### H EMDF, CMP3, LIPA4 #### [facility] [address] [place] [address] Urea nitrogen mass conc 18 mg/dL Normal 7-20 [facility] Comment on above: Performed By: #### H EMDF, CMP3, LIPA4 #### [facility] [address] [place] [address] Potassium molar conc 3.9 mmol/L Normal 3.5-5.1 [facility] Comment on above: Performed By: #### H EMDF, CMP3, LIPA4 #### [facility] [address] [place] [address] Sodium molar conc 137 mmol/L Normal 135-145 [facility] Comment on above: Performed By: #### H EMDF, CMP3, LIPA4 #### [facility] [address] [place] [address] Albumin mass conc 4.0 g/dL Normal 3.5-5.0 [facility] Comment on above: Performed By: #### H EMDF, CMP3, LIPA4 #### [facility] [address] [place] [address] Chloride molar conc 103 mmol/L Normal 98-107 [facility] Comment on above: Performed By: #### H EMDF, CMP3, LIPA4 #### [facility] [address] [place] [address] HCG,Urine Qualon 08-22-2018 HCG.beta subunit ( test) Ql (U) Negative Normal Negative [facility] Comment on above: Result Comment: Preg fallon is the most common reason for HCG in urine, although choriocarcinoma, hydatidiform mole, and certain nontropho- blastic malignancies also result in detectable urinary HCG levels. Sensitivity = 20mIU/mL. Performed By: #### U AMAC, UAMIC, HCGUR #### [facility] [address] [place] [address] Hemogram w/ Autodiffon 08-22 Abs Baso Cnt 0.1 10*3/uL Normal 0.0-0.2 [facility] Comment on above: Performed By: #### H EMDF, CMP3, LIPA4 #### [facility] [address] [place] [address] Abs Neutrophile Cnt 4.4 10*3/uL Normal 1.8-7.0 [facility] Comment on above: Performed By: #### H EMDF, CMP3, LIPA4 #### [facility] [address] [place] [address] Basophils/100 WBC (Bld) 0.8 % Normal 0.0-2.0 [facility] Comment on above: Performed By: #### H EMDF, CMP3, LIPA4 #### [facility] [address] [place] [address] Eosinophils #/vol (Bld) 0.2 10*3/uL Normal 0.0-0.5 [facility] Comment on above: Performed By: #### H EMDF, CMP3, LIPA4 #### [facility] [address] [place] [address] Eosinophils/100 WBC (Bld) 2.3 % Normal 1.0-6.0 [facility] Comment on above: Performed By: #### H EMDF, CMP3, LIPA4 #### [facility] [address] [place] [address] Erythrocyte distribution width Ratio (RBC) 13.1 % Normal 11.5-14.5 [facility] Comment on above: Performed By: #### H EMDF, CMP3, LIPA4 #### [facility] [address] [place] [address] Granulocytes/100 WBC (Bld) 50.3 % Normal 40.0-80.0 [facility] Comment on above: Performed By: #### H EMDF, CMP3, LIPA4 #### [facility] [facility] [address] [place] [address] Hematocrit Volume Fraction (Bld) 42.0 % Normal 35.0-47.0 [facility] Comment on above: Performed By: #### H EMDF, CMP3, LIPA4 #### [facility] [address] [place] [address] Hemoglobin mass conc (Bld) 14.4 g/dL Normal 11.7-16.0 [facility] Comment on above: Performed By: #### H EMDF, CMP3, LIPA4 #### [facility] [facility] [address] [place] [address] Lymphocytes #/vol (Bld) 3.3 10*3/uL Normal 1.0-4.3 [facility] Comment on above: Performed By: #### H EMDF, CMP3, LIPA4 #### [facility] [facility] [address] [place] [address] Lymphocytes/100 WBC (Bld) 37.7 % Normal 20.0-40.0 [facility] Comment on above: Performed By: #### H EMDF, CMP3, LIPA4 #### [facility] [address] [place] [address] MCH Entitic mass (RBC) 31.0 pg Normal 26.0-34.0 [facility] Comment on above: Performed By: #### H EMDF, CMP3, LIPA4 #### [facility] [address] [place] [address] MCHC mass conc (RBC) 34.3 % Normal 32.0-36.0 [facility] Comment on above: Performed By: #### H EMDF, CMP3, LIPA4 #### [facility] [address] [place] [address] MCV Entitic volume (RBC) 90.3 fL Normal 79.0-98.0 [facility] Comment on above: Performed By: #### H EMDF, CMP3, LIPA4 #### [facility] [address] [place] [address] Monocytes #/vol (Bld) 0.8 10*3/uL Normal 0.0-0.8 [facility] Comment on above: Performed By: #### H EMDF, CMP3, LIPA4 #### [facility] [address] [place] [address] Monocytes/100 WBC (Bld) 8.9 % Normal 2.0-10.0 [facility] Comment on above: Performed By: #### H EMDF, CMP3, LIPA4 #### [facility] [address] [place] [address] Platelet mean volume Entitic volume (Bld) 8.7 fL Normal 7.4-10.4 [facility] Comment on above: Performed By: #### H EMDF, CMP3, LIPA4 #### [facility] [address] [place] [address] Platelets #/vol (Bld) 294 10*3/uL Normal 140-440 [facility] Comment on above: Performed By: #### H EMDF, CMP3, LIPA4 #### [facility] [address] [place] [address] RBC #/vol (Bld) 4.65 10*6/uL Normal 3.80-5.20 [facility] Comment on above: Performed By: #### H EMDF, CMP3, LIPA4 #### [facility] [address] [place] [address] WBC #/vol (Bld) 8.7 10*3/uL Normal 3.6-10.7 [facility] Comment on above: Performed By: #### H EMDF, CMP3, LIPA4 #### [facility] [address] [place] [address] Lipaseon 08-22-2018 Lipase enzyme act/vol 114 U/L Normal 23-300 [facility] Comment on above: Performed By: #### H EMDF, CMP3, LIPA4 #### [place] [address] [place] [address] Urinalysis,Macroon 9 Appearance Nom (U) TURBID Normal Clear [facility] Comment on above: Performed By: #### U AMAC, UAMIC, HCGUR #### [place] [address] [place] [address] Bilirubin,Ur Negative Normal Negative [facility] Comment on above: Performed By: #### U AMAC, UAMIC, HCGUR #### [place] [address] [place] [address] Color Nom (U) YELLOW Normal Lt. Yellow [facility] Comment on above: Performed By: #### U AMAC, UAMIC, HCGUR #### [place] [address] [place] [address] Glucose Ql (U) Negative Normal Negative [facility] Comment on above: Performed By: #### U AMAC, UAMIC, HCGUR #### [address] [place]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 Davide Chao MD Work Phone: [facility] 06-10-2024 18:44-0500 Systolic blood pressure 110 mm[Hg] Davide Chao MD Work Phone: [facility] 06-10-2024 13:57-0500 Body mass index (BMI) [Ratio] 28.4 kg/m2 Dr. Davide Chao MD Work Phone: [facility] 06-10-2024 13:57-0500 Body weight [address] Davide Chao MD Work Phone: [facility] 06-10-2024 13:57-0500 Diastolic blood pressure 74 mm[Hg] Dr. Davide Chao MD Work Phone: [facility] 06-10-2024 13:57-0500 Systolic blood pressure 112 mm[Hg] Dr. Davide Chao MD Work Phone: [facility] 03-22-2024 15:52-0400 Diastolic Blood Pressure Non-Invasive 74 mm[Hg] RAMON PULLIAM MD [facility] 03-22-2024 15:52-0400 Heart rate 85 /min RAMON PULLIAM MD [facility] 03-22-2024 15:52-0400 Respiratory rate 16 /min RAMON PULLIAM MD [facility] 03-22-2024 15:52-0400 Systolic Blood Pressure Non-Invasive 101 mm[Hg] RAMON PULLIAM MD [facility] 03-22-2024 15:37-0400 Diastolic Blood Pressure Non-Invasive 74 mm[Hg] RAMON PULLIAM MD [facility] 03-22-2024 15:37-0400 Heart rate 88 /min RAMON PULLIAM MD [facility] 03-22-2024 15:37-0400 Respiratory rate 18 /min RAMON PULLIAM MD [facility] 03-22-2024 15:37-0400 Systolic Blood Pressure Non-Invasive 98 mm[Hg] RAMON PULLIAM MD [facility] 03-22-2024 15:08-0400 Diastolic Blood Pressure Non-Invasive 73 mm[Hg] RAMON PULLIAM MD [facility] 10-18-2024 15:08-0400 Heart rate 78 /min RAMON PULLIAM MD [facility] 03-22-2024 15:08-0400 Respiratory rate 20 /min RAMON PULLIAM MD [facility] 03-22-2024 15:08-0400 Systolic Blood Pressure Non-Invasive 100 mm[Hg] RAMON PULLIAM MD [facility] 03-22-2024 14:32-0400 Body height 167.6 cm RAMON PULLIAM MD [facility] 03-22-2024 14:32-0400 Body temperature 97.88 [degF] RAMON PULLIAM MD [facility] 03-22-2024 14:32-0400 Body weight 81.8 kg RAMON PULLIAM MD [facility] 03-22-2024 14:32-0400 Heart rate 106 /min RAMON PULLIAM MD [facility] 10-17-2023 11:55-0400 Body mass index (BMI) [Ratio] 28.18 kg/m2 Rayo Bogner PA-C Work Phone: [facility] 10-17-2023 11:55-0400 Body weight 79.2 kg Rayo Bogner PA-C Work Phone: [facility] 10-17-2023 11:55-0400 Diastolic blood pressure 62 mm[Hg] Rayo Bogner PA-C Work Phone: [facility] 10-17-2023 11:55-0400 Heart rate 94 /min Rayo Bogner PA-C Work Phone: [facility] 10-17-2023 11:55-0400 Respiratory rate 16 /min Rayo Bogner PA-C Work Phone: [facility] 10-17-2023 11:55-0400 SaO2% (BldA) [Mass fraction] 98 % Rayo BELL-C Work Phone: [facility] 10-17-2023 11:55-0400 Systolic blood pressure 89 mm[Hg] Rayo BELL-C Work Phone: [facility] 10-03-2023 08:30-0400 Body temperature 96.7 [degF] Dr. Davide Chao Work Phone: [facility] 10-03-2023 08:30-0400 Diastolic blood pressure 65 mm[Hg] Dr. Davide Chao Work Phone: [facility] 10-03-2023 08:30-0400 Heart rate 83 /min Dr. Davide Chao Work Phone: 3(383)244-689515 [place] [address] 10-03-2023 08:30-0400 Respiratory rate 16 /min Dr. Davide Chao Work Phone: [facility] 10-03-2023 08:30-0400 SaO2% (BldA) [Mass fraction] 100 % Dr. Davide Chao Work Phone: [facility] 10-03-2023 08:30-0400 Systolic blood pressure 92 mm[Hg] Dr. Davide Chao Work Phone: [facility] 10-03-2023 06:24-0400 Body height 167.[address] Davide Chao Work Phone: [facility] 10-03-2023 06:24-0400 Body mass index (BMI) [Ratio] 28 kg/m2 Dr. Davide Chao Work Phone: [facility] 10-03-2023 06:24-0400 Body weight 78.[address] Davide Chao Work Phone: [facility] 09-04-2023 08:12-0400 Body mass index (BMI) [Ratio] 28.2 kg/m2 Dr. Davide Chao Work Phone: [facility] 09-04-2023 08:12-0400 Body weight 79.[address] Davide Chao Work Phone: [facility] 09-04-2023 08:12-0400 Diastolic blood pressure 65 mm[Hg] Dr. Davide Chao Work Phone: [facility] 09-04-2023 08:12-0400 Systolic blood pressure 94 mm[Hg] Dr. Davide Chao Work Phone: [facility] 08-10-2023 11:38-0500 Body temperature 97.39 [degF] Roberto Andrea [employer] DES[employer] Work Phone: [facility] 08-10-2023 11:38-0500 Body weight 77.6 kg Roberto Andrea [employer] DESIGNER Work Phone: [facility] 08-10-2023 11:38-0500 Diastolic blood pressure 76 mm[Hg] Roberto Andrea [employer] DESIGNER Work Phone: [facility] 08-10-2023 11:38-0500 Heart rate 82 /min Roberto Andrea [employer] DESIGNER Work Phone: [facility] 08-10-2023 11:38-0500 Respiratory rate 18 /min Roberto Andrea [employer] DESIGNER Work Phone: [facility] 08-10-2023 11:38-0500 SaO2% (BldA) [Mass fraction] 99 % Roberto Andrea [employer] DESIGNER Work Phone: [facility] 08-10-2023 11:38-0500 Systolic blood pressure 105 mm[Hg] Roberto Andrea [employer] DESIGNER Work Phone: [facility] 06-28-2023 13:38-0500 Body height 167.[address] Davide Chao Work Phone: [facility] 06-28-2023 13:29-0500 Body mass index (BMI) [Ratio] 27 kg/m2 Dr. Davide Chao Work Phone: [facility] 06-28-2023 13:29-0500 Body weight 75.[address] Davide Chao Work Phone: [facility] 06-28-2023 13:29-0500 Diastolic blood pressure 62 mm[Hg] Dr. Davide Chao Work Phone: [facility] 06-28-2023 13:29-0500 Systolic blood pressure 96 mm[Hg] Dr. Davide Chao Work Phone: [facility] 06-07-2023 00:38-0500 Diastolic blood pressure 78 mm[Hg] Son Gunderson MD Work Phone: [facility] 06-07-2023 00:38-0500 Heart rate 63 /min Son Gunderson MD Work Phone: [facility] 06-07-2023 00:38-0500 Respiratory rate 18 /min Son Gunderson MD Work Phone: [facility] 06-07-2023 00:38-0500 SaO2% (BldA) [Mass fraction] 97 % Son Gunderson MD Work Phone: [facility] 06-07-2023 00:38-0500 Systolic blood pressure 128 mm[Hg] Son Gunderson MD Work Phone: [facility] 06-06-2023 22:28-0500 Body height 167.6 cm Son Gunderson MD Work Phone: [facility] 06-06-2023 22:28-0500 Body mass index (BMI) [Ratio] 25.82 kg/m2 Son Gunderson MD Work Phone: [facility] 06-06-2023 22:28-0500 Body temperature 96.1 [degF] Son Gunderson MD Work Phone: [facility] 06-06-2023 22:28-0500 Body weight 72.58 kg Son Gunderson MD Work Phone: [facility] 03-18-2023 03:50-0400 Diastolic blood pressure 57 mm[Hg] Dr. Davide Chao Work Phone: [facility] 03-18-2023 03:50-0400 Heart rate 64 /min Dr. Davide Chao Work Phone: [facility] 03-18-2023 03:50-0400 Systolic blood pressure 109 mm[Hg] Dr. Davide Chao Work Phone: [facility] 03-18-2023 01:35-0400 Body height 167.[address] Davide Chao Work Phone: [facility] 03-18-2023 01:35-0400 Body mass index (BMI) [Ratio] 28.2 kg/m2 Dr. Davide Chao Work Phone: [facility] 03-18-2023 01:35-0400 Body weight 79.[address] Davide Chao Work Phone: [facility] 03-18-2023 01:32-0400 SaO2% (BldA) [Mass fraction] 98 % Dr. Davide Chao Work Phone: [facility] 03-13-2023 20:01-0400 Diastolic blood pressure 89 mm[Hg] Edy Orellana MD Work Phone: [facility] 03-13-2023 20:01-0400 Heart rate 63 /min Edy Orellana MD Work Phone: [facility] 03-13-2023 20:01-0400 Respiratory rate 16 /min Edy Orellana MD Work Phone: [facility] 03-13-2023 20:01-0400 SaO2% (BldA) [Mass fraction] 97 % Edy Orellana MD Work Phone: [facility] 03-13-2023 20:01-0400 Systolic blood pressure 133 mm[Hg] Edy Orellana MD Work Phone: [facility] 03-13-2023 16:40-0400 Body height 167.6 cm Edy Orellana MD Work Phone: [facility] 03-13-2023 16:40-0400 Body mass index (BMI) [Ratio] 27.44 kg/m2 Edy Orellana MD Work Phone: [facility] 03-13-2023 16:40-0400 Body temperature 98.4 [degF] Edy Orellana MD Work Phone: [facility] 03-13-2023 16:40-0400 Body weight 77.11 kg Edy Orellana MD Work Phone: [facility] 03-11-2023 12:00-0400 Body temperature 98 [degF] Dr. Davide Chao Work Phone: 4(095)606-988215 [place] [address] 03-11-2023 12:00-0400 Diastolic blood pressure 74 mm[Hg] Dr. Davide Chao Work Phone: 2(742)197-678437 [address] 03-11-2023 12:00-0400 Heart rate 67 /min Dr. Davide Chao Work Phone: 0(578)406-423274 [place] [address] 03-11-2023 12:00-0400 Respiratory rate 16 /min Dr. Davide Chao Work Phone: 0(353)431-633574 [place] [address] 03-11-2023 12:00-0400 SaO2% (BldA) [Mass fraction] 99 % Dr. Davide Chao Work Phone: [facility] 03-11-2023 12:00-0400 Systolic blood pressure 117 mm[Hg] Dr. Davide Chao Work Phone: [facility] 03-09-2023 17:37-0400 Body mass index (BMI) [Ratio] 31.4 kg/m2 Dr. Davide Chao Work Phone: [facility] 03-09-2023 17:37-0400 Body weight 88.[address] Davide Chao Work Phone: 2(112)826-087174 [place] [address] 03-09-2023 10:31-0400 Body mass index (BMI) [Ratio] 31.3 kg/m2 Dr. Davide Chao Work Phone: 1(027)009-874774 [place] [address] 03-09-2023 10:31-0400 Body weight 87.[address] Davide Chao Work Phone: 8(651)526-299174 [place] [address] 03-08-2023 05:22-0400 Body mass index (BMI) [Ratio] 31.4 kg/m2 Dr. Davide Chao Work Phone: 4(316)374-579474 [place] [address] 03-08-2023 05:22-0400 Body weight 88.[address] Davide Chao Work Phone: 7(610)752-438674 [place] [address] 03-08-2023 04:50-0400 Body temperature 97.6 [degF] Dr. Davide Chao Work Phone: 1(454)838-144874 [place] [address] 03-08-2023 04:50-0400 Diastolic blood pressure 76 mm[Hg] Dr. Davide Chao Work Phone: 4(665)486-376574 [place] [address] 03-08-2023 04:50-0400 Heart rate 100 /min Dr. Davide Chao Work Phone: 5(176)198-195374 [place] [address] 03-08-2023 04:50-0400 SaO2% (BldA) [Mass fraction] 100 % Dr. Davide Chao Work Phone: 3(283)110-503474 [place] [address] 03-08-2023 04:50-0400 Systolic blood pressure 107 mm[Hg] Dr. Davide Chao Work Phone: 7(368)873-857574 [place] [address] 03-04-2023 09:34-0400 Body height 167.[address] Davide Chao Work Phone: 4(049)409-122374 [place] [address] 03-04-2023 09:34-0400 Body mass index (BMI) [Ratio] 31.4 kg/m2 Dr. Davide Chao Work Phone: 9(613)508-633274 [place] [address] 03-04-2023 09:34-0400 Body weight 88.[address] Davide Chao Work Phone: 6(775)419-141874 [place] [address] 03-04-2023 09:28-0400 Body temperature 97.7 [degF] Dr. Davide Chao Work Phone: 3(400)032-737474 [place] [address] 03-04-2023 09:27-0400 Diastolic blood pressure 69 mm[Hg] Dr. Davide Chao Work Phone: 3(993)120-141074 [place] [address] 03-04-2023 09:27-0400 Heart rate 99 /min Dr. Davide Chao Work Phone: 3(999)238-334674 [place] [address] 03-04-2023 09:27-0400 Systolic blood pressure 106 mm[Hg] Dr. Davide Chao Work Phone: 2(563)471-120274 [place] [address] 03-04-2023 07:47-0400 Diastolic blood pressure 70 mm[Hg] Dr. Davide Chao Work Phone: 8(470)784-568774 [place] [address] 03-04-2023 07:47-0400 Heart rate 74 /min Dr. Davide Chao Work Phone: 4(064)897-551974 [place] [address] 03-04-2023 07:47-0400 Systolic blood pressure 122 mm[Hg] Dr. Davide Chao Work Phone: 1(985)345-665374 [place] [address] 03-04-2023 07:46-0400 Body temperature 97.6 [degF] Dr. Davide Chao Work Phone: 5(414)736-707674 [place] [address] 03-04-2023 07:46-0400 SaO2% (BldA) [Mass fraction] 100 % Dr. Davide Chao Work Phone: 6(961)669-281974 [place] [address] 03-04-2023 04:00-0400 Body mass index (BMI) [Ratio] 31.1 kg/m2 Dr. Davide Chao Work Phone: 9(717)356-232574 [place] [address] 03-04-2023 04:00-0400 Body weight 87.[address] Davide Chao Work Phone: 1(961)963-448874 [place] [address] 03-01-2023 20:19-0400 Body mass index (BMI) [Ratio] 30.6 kg/m2 Dr. Davide Chao Work Phone: 3(500)450-299474 [place] [address] 03-01-2023 20:19-0400 Body weight [address] Davide Chao Work Phone: 2(052)455-567474 [place] [address] 03-01-2023 20:10-0400 Diastolic blood pressure 64 mm[Hg] Dr. Davide Chao Work Phone: 0(594)475-104874 [place] [address] 03-01-2023 20:10-0400 Heart rate 105 /min Dr. Davide Choa Work Phone: 3(124)743-010174 [place] [address] 03-01-2023 20:10-0400 Systolic blood pressure 103 mm[Hg] Dr. Davide Chao Work Phone: 3(990)774-149874 [place] [address] 03-01-2023 20:07-0400 SaO2% (BldA) [Mass fraction] 99 % Dr. Davide Chao Work Phone: 1(205)003-920974 [place] [address] 02-28-2023 15:37-0400 Body mass index (BMI) [Ratio] 30.7 kg/m2 Dr. Davide Chao Work Phone: 3(750)685-690074 [place] [address] 02-28-2023 15:37-0400 Body weight 86.[address] Davide Chao Work Phone: 9(007)483-559674 [place] [address] 02-28-2023 15:37-0400 Diastolic blood pressure 70 mm[Hg] Dr. Davide Chao Work Phone: 1(363)809-382674 [place] [address] 02-28-2023 15:37-0400 Systolic blood pressure 102 mm[Hg] Dr. Davide Chao Work Phone: 0(215)197-058374 [place] [address] 02-18-2023 14:35-0400 Body height 167.[address] Davide Chao Work Phone: 5(408)623-815574 [place] [address] 02-18-2023 14:35-0400 Body mass index (BMI) [Ratio] 30 kg/m2 Dr. Davide Chao Work Phone: 1(926)762-183474 [place] [address] 02-18-2023 14:35-0400 Body weight 84.[address] Davide Chao Work Phone: 7(941)514-673274 [place] [address] 02-18-2023 08:48-0400 Diastolic blood pressure 66 mm[Hg] Dr. Davide Chao Work Phone: 1(880)138-504074 [place] [address] 02-18-2023 08:48-0400 Heart rate 80 /min Dr. Davide Chao Work Phone: 8(387)391-939474 [place] [address] 02-18-2023 08:48-0400 Systolic blood pressure 107 mm[Hg] Dr. Davide Chao Work Phone: 2(758)317-768074 [place] [address] 02-18-2023 07:25-0400 SaO2% (BldA) [Mass fraction] 98 % Dr. Davide Chao Work Phone: 2(424)226-256274 [place] [address] 02-17-2023 15:47-0400 Body height 165.[address] Davide Chao Work Phone: 7(246)273-152374 [place] [address] 02-17-2023 15:45-0400 Body mass index (BMI) [Ratio] 31.1 kg/m2 Dr. Davide Chao Work Phone: 3(736)080-559574 [place] [address] 02-17-2023 15:45-0400 Body weight 84.[address] Davide Chao Work Phone: 5(732)022-488874 [place] [address] 02-17-2023 15:45-0400 Diastolic blood pressure 80 mm[Hg] Dr. Davide Chao Work Phone: 4(481)456-014974 [place] [address] 02-17-2023 15:45-0400 Systolic blood pressure 110 mm[Hg] Dr. Davide Chao Work Phone: 7(020)337-473074 [place] [address] 02-02-2023 15:58-0400 Body mass index (BMI) [Ratio] 31.1 kg/m2 Dr. Davide Chao Work Phone: 8(470)241-110374 [place] [address] 02-02-2023 15:58-0400 Body weight 85.[address] Davide Chao Work Phone: 1(890)217-659874 [place] [address] 02-02-2023 15:58-0400 Diastolic blood pressure 72 mm[Hg] Dr. Davide Chao Work Phone: 9(441)726-344574 [place] [address] 02-02-2023 15:58-0400 Systolic blood pressure 110 mm[Hg] Dr. Davide Chao Work Phone: 9(931)232-132374 [place] [address] 02-01-2023 09:45-0400 Body temperature 97.3 [degF] Dr. Davide Chao Work Phone: 8(543)538-111774 [place] [address] 02-01-2023 09:45-0400 Diastolic blood pressure 73 mm[Hg] Dr. Davide Chao Work Phone: 1(426)384-579774 [place] [address] 02-01-2023 09:45-0400 Heart rate 93 /min Dr. Davide Chao Work Phone: 2(695)047-495174 [place] [address] 02-01-2023 09:45-0400 Respiratory rate 17 /min Dr. Davide Chao Work Phone: 3(644)510-660374 [place] [address] 02-01-2023 09:45-0400 SaO2% (BldA) [Mass fraction] 99 % Dr. Davide Chao Work Phone: 1(976)158-505874 [place] [address] 02-01-2023 09:45-0400 Systolic blood pressure 106 mm[Hg] Dr. Davide Chao Work Phone: 7(024)305-955074 [place] [address] 01-30-2023 18:40-0400 Body temperature 97.8 [degF] Dr. Davide Chao Work Phone: 8(096)199-145874 [place] [address] 01-30-2023 18:40-0400 Diastolic blood pressure 68 mm[Hg] Dr. Davide Chao Work Phone: 3(051)924-825174 [place] [address] 01-30-2023 18:40-0400 Heart rate 76 /min Dr. Davide Chao Work Phone: 3(296)832-333674 [place] [address] 01-30-2023 18:40-0400 Systolic blood pressure 119 mm[Hg] Dr. Davide Chao Work Phone: 7(529)928-617374 [place] [address] 01-30-2023 14:15-0400 Body height 165.[address] Davide Chao Work Phone: 6(821)042-875874 [place] [address] 01-30-2023 14:15-0400 Body mass index (BMI) [Ratio] 30.8 kg/m2 Dr. Davide Chao Work Phone: 9(678)718-524674 [place] [address] 01-30-2023 14:15-0400 Body weight [address] Davide Chao Work Phone: 3(429)664-546674 [place] [address] 01-30-2023 14:12-0400 Body temperature 96.8 [degF] Dr. Davide Chao Work Phone: 7(214)908-330974 [place] [address] 01-30-2023 14:12-0400 Diastolic blood pressure 65 mm[Hg] Dr. Davide Chao Work Phone: 4(970)298-964174 [place] [address] 01-30-2023 14:12-0400 Heart rate 101 /min Dr. Davide Chao Work Phone: 3(426)388-183574 [place] [address] 01-30-2023 14:12-0400 Systolic blood pressure 119 mm[Hg] Dr. Davide Chao Work Phone: 0(603)366-606774 [place] [address] 01-23-2023 22:36-0400 Diastolic blood pressure 79 mm[Hg] Dr. Davide Chao Work Phone: 6(036)583-367774 [place] [address] 01-23-2023 22:36-0400 Heart rate 82 /min Dr. Davide Chao Work Phone: 9(295)758-925674 [place] [address] 01-23-2023 22:36-0400 Respiratory rate 18 /min Dr. Davide Chao Work Phone: 6(630)090-960715 [place] [address] 01-23-2023 22:36-0400 SaO2% (BldA) [Mass fraction] 100 % Dr. Davide Chao Work Phone: 4(975)833-249674 [place] [address] 01-23-2023 22:36-0400 Systolic blood pressure 117 mm[Hg] Dr. Davide Chao Work Phone: 8(581)913-012874 [place] [address] 01-23-2023 19:52-0400 Body height 167.[address] Davide Chao Work Phone: 7(209)637-033774 [place] [address] 01-23-2023 19:52-0400 Body mass index (BMI) [Ratio] 30.2 kg/m2 Dr. Davide Chao Work Phone: 1(642)426-720874 [place] [address] 01-23-2023 19:52-0400 Body temperature 97.2 [degF] Dr. Davide Chao Work Phone: 0(441)471-383874 [place] [address] 01-23-2023 19:52-0400 Body weight 84.[address] Davide Chao Work Phone: 3(436)938-994774 [place] [address] 01-16-2023 19:57-0400 Diastolic blood pressure 54 mm[Hg] Dr. Davide Chao Work Phone: 1(073)346-840674 [place] [address] 01-16-2023 19:57-0400 Heart rate 94 /min Dr. Davide Chao Work Phone: 5(253)509-513674 [place] [address] 01-16-2023 19:57-0400 SaO2% (BldA) [Mass fraction] 99 % Dr. Davide Chao Work Phone: 7(001)411-562174 [place] [address] 01-16-2023 19:57-0400 Systolic blood pressure 96 mm[Hg] Dr. Davide Chao Work Phone: 0(454)224-440474 [place] [address] 01-16-2023 19:56-0400 Body temperature 97.8 [degF] Dr. Davide Chao Work Phone: 6(334)368-009574 [place] [address] 01-16-2023 16:48-0400 Body mass index (BMI) [Ratio] 30.5 kg/m2 Dr. Davide Chao Work Phone: 6(492)000-876674 [place] [address] 01-16-2023 16:48-0400 Body weight 85.[address] Davide Chao Work Phone: 1(321)454-570174 [place] [address] 01-16-2023 15:24-0400 Body mass index (BMI) [Ratio] 30.7 kg/m2 Dr. Davide Chao Work Phone: 7(872)330-621974 [place] [address] 01-16-2023 15:24-0400 Body weight 86.[address] Davide Chao Work Phone: [facility] 12-21-2022 11:19-0400 Body mass index (BMI) [Ratio] 29.4 kg/m2 Dr. Davide Chao Work Phone: [facility] 12-21-2022 11:19-0400 Body weight 82.[address] Davide Chao Work Phone: [facility] 12-21-2022 11:19-0400 Diastolic blood pressure 70 mm[Hg] Dr. Davide Chao Work Phone: [facility] 12-21-2022 11:19-0400 Systolic blood pressure 110 mm[Hg] Dr. Davide Chao Work Phone: [facility] 11-25-2022 09:26-0400 Body mass index (BMI) [Ratio] 28.3 kg/m2 Dr. Davide Chao Work Phone: [facility] 11-25-2022 09:26-0400 Body weight 79.[address] Davide Chao Work Phone: [facility] 11-25-2022 09:26-0400 Diastolic blood pressure 65 mm[Hg] Dr. Davide Chao Work Phone: [facility] 11-25-2022 09:26-0400 Systolic blood pressure 98 mm[Hg] Dr. Davide Chao Work Phone: [facility] 11-11-2022 00:19-0400 Body height 167.4 cm Andry Rueda MD Work Phone: [facility] 11-11-2022 00:19-0400 Body mass index (BMI) [Ratio] 27.83 kg/m2 Andry Rueda MD Work Phone: [facility] 11-11-2022 00:19-0400 Body weight 78 kg Andry Rueda MD Work Phone: [facility] 10-28-2022 09:23-0400 Body height 167.[address] Davide Chao Work Phone: 5(477)921-449515 [place] [address] 10-28-2022 09:16-0400 Body mass index (BMI) [Ratio] 27.4 kg/m2 Dr. Davide Chao Work Phone: 8(561)930-806937 [address] 10-28-2022 09:16-0400 Body weight 77.[address] Davide Chao Work Phone: 4(457)865-769837 [address] 10-28-2022 09:16-0400 Diastolic blood pressure 73 mm[Hg] Dr. Davide Chao Work Phone: 4(007)333-008737 [address] 10-28-2022 09:16-0400 Systolic blood pressure 106 mm[Hg] Dr. Davide Chao Work Phone: 8(770)225-452537 [address] 09-28-2022 08:06-0400 Body height 167.[address] Davide Chao Work Phone: 5(664)557-034474 [place] [address] 09-28-2022 08:06-0400 Body mass index (BMI) [Ratio] 26.8 kg/m2 Dr. Davide Chao Work Phone: 6(228)007-309115 [place] [address] 09-28-2022 08:06-0400 Body weight 75.[address] Davide Chao Work Phone: 0(374)594-019074 [place] [address] 09-28-2022 08:06-0400 Diastolic blood pressure 71 mm[Hg] Dr. Davide Chao Work Phone: 0(506)464-041715 [place] [address] 09-28-2022 08:06-0400 Systolic blood pressure 104 mm[Hg] Dr. Davide Chao Work Phone: 1(276)777-917115 [place] [address] 09-11-2022 23:47-0400 Diastolic blood pressure 62 mm[Hg] Davide Chao Other Phone: [facility] 09-11-2022 23:47-0400 Heart rate 85 /min Davide Chao Other Phone: [facility] 09-11-2022 23:47-0400 Respiratory rate 15 /min Davide Chao Other Phone: [facility] 09-11-2022 23:47-0400 SaO2% (BldA) [Mass fraction] 100 % Davide Chao Other Phone: [facility] 09-11-2022 23:47-0400 Systolic blood pressure 95 mm[Hg] Davide Chao Other Phone: [facility] 09-11-2022 22:56-0400 Body height 167.6 cm Davide Chao Other Phone: [facility] 09-11-2022 22:56-0400 Body weight 72.7 kg Davide Chao Other Phone: [facility] 08-17-2022 13:25-0400 Body height 167.[address] Davide Chao Work Phone: [facility] 08-17-2022 13:24-0400 Body mass index (BMI) [Ratio] 26.4 kg/m2 Dr. Davide Chao Work Phone: [facility] 08-17-2022 13:24-0400 Body weight 74.[address] Davide Chao Work Phone: [facility] 08-17-2022 13:24-0400 Diastolic blood pressure 70 mm[Hg] Dr. Davide Chao Work Phone: [facility] 08-17-2022 13:24-0400 Systolic blood pressure 105 mm[Hg] Dr. Davide Chao Work Phone: [facility] 07-29-2022 15:16-0500 Body height 167.[address] Davide Chao Work Phone: [facility] 07-29-2022 15:16-0500 Body mass index (BMI) [Ratio] 26.9 kg/m2 Dr. Davide Chao Work Phone: [facility] 07-29-2022 15:16-0500 Body weight 75.[address] Davide Chao Work Phone: [facility] 07-29-2022 15:16-0500 Diastolic blood pressure 72 mm[Hg] Dr. Davide Chao Work Phone: [facility] 07-29-2022 15:16-0500 Systolic blood pressure 104 mm[Hg] Dr. Davide Chao Work Phone: [facility] 07-13-2022 23:15-0500 Diastolic blood pressure 71 mm[Hg] Nery Esparza MD Work Phone: [facility] 07-13-2022 23:15-0500 SaO2% (BldA) [Mass fraction] 100 % Nery Esparza MD Work Phone: [facility] 07-13-2022 23:15-0500 Systolic blood pressure 105 mm[Hg] Nery Esparza MD Work Phone: [facility] 07-13-2022 22:57-0500 Body height 167.6 cm Nery Esparza MD Work Phone: [facility] 07-13-2022 22:57-0500 Body mass index (BMI) [Ratio] 27.07 kg/m2 Nery Esparza MD Work Phone: [facility] 07-13-2022 22:57-0500 Body temperature 98.2 [degF] Nery Esparza MD Work Phone: [facility] 07-13-2022 22:57-0500 Body weight 76.07 kg Nery Esparza MD Work Phone: [facility] 07-13-2022 22:57-0500 Heart rate 96 /min Nery Esparza MD Work Phone: [facility] 07-13-2022 22:57-0500 Respiratory rate 18 /min Nery Esparza MD Work Phone: [facility] 11-21-2021 09:11-0400 Body mass index (BMI) [Ratio] 27.12 kg/m2 Mireya Dewitt CNP Work Phone: [facility] 11-21-2021 09:11-0400 Body temperature 98.4 [degF] Mireya Dewitt CNP Work Phone: [facility] 11-21-2021 09:11-0400 Body weight 76.2 kg Mireya Dewitt CNP Work Phone: [facility] 11-21-2021 09:11-0400 Diastolic blood pressure 70 mm[Hg] Mireya Dewitt CNP Work Phone: [facility] 11-21-2021 09:11-0400 Heart rate 86 /min Mireya Dewitt CNP Work Phone: [facility] 11-21-2021 09:11-0400 Respiratory rate 14 /min Mireya Dewitt CNP Work Phone: [facility] 11-21-2021 09:11-0400 SaO2% (BldA) [Mass fraction] 97 % Mireya Dewitt CNP Work Phone: [facility] 11-21-2021 09:11-0400 Systolic blood pressure 99 mm[Hg] Mireya Dewitt CNP Work Phone: [facility] 11-16-2021 13:58-0400 Body height 167.64 cm Davide Reny [employer] Work Phone: [employer] Work Phone: 11-16-2021 13:58-0400 Body mass index (BMI) [Ratio] 28.43 kg/m2 Davide Oglesby [employer] Work Phone: [employer] Work Phone: 11-16-2021 13:58-0400 Body surface area Derived from formula 1.9 m2 Davide Reny [employer] Work Phone: [employer] Work Phone: 11-16-2021 13:58-0400 Body weight 79.9 kg Davide Oglesby [employer] Work Phone: [employer] Work Phone: 11-16-2021 13:58-0400 Diastolic blood pressure 64 mm[Hg] Davide Chao Work Phone: [employer] Work Phone: 11-16-2021 13:58-0400 Systolic blood pressure 110 mm[Hg] Davide Chao Work Phone: [employer] Work Phone: 10-14-2021 15:28-0400 Body temperature 97.88 [degF] Davide Chao Other Phone: [facility] 10-14-2021 15:28-0400 Diastolic blood pressure 71 mm[Hg] Davide Chao Other Phone: [facility] 10-14-2021 15:28-0400 Heart rate 79 /min Davide Chao Other Phone: [facility] 10-14-2021 15:28-0400 Respiratory rate 16 /min Davide Chao Other Phone: [facility] 10-14-2021 15:28-0400 SaO2% (BldA) [Mass fraction] 99 % Davide Chao Other Phone: [facility] 10-14-2021 15:28-0400 Systolic blood pressure 118 mm[Hg] Davide Chao Other Phone: [facility] 10-08-2021 10:24-0400 Body height 167.64 cm Davide Chao Work Phone: [employer] Work Phone: 10-08-2021 10:24-0400 Body mass index (BMI) [Ratio] 31.24 kg/m2 Davide Chao Work Phone: [employer] Work Phone: 10-08-2021 10:24-0400 Body surface area Derived from formula 1.97 m2 Davide Chao Work Phone: [place] [address] [employer] Work Phone: 10-08-2021 10:24-0400 Body weight 87.8 kg Davide D [employer] Work Phone: [place] [address] [employer] Work Phone: 10-08-2021 10:24-0400 Diastolic blood pressure 64 mm[Hg] Davide Reny [employer] Work Phone: [place] [address] [employer] Work Phone: 10-08-2021 10:24-0400 Systolic blood pressure 104 mm[Hg] Davide Reny [employer] Work Phone: [place] [address] [employer] Work Phone: 10-01-2021 11:25-0400 Body height 167.64 cm Davide Reny [employer] Work Phone: [place] [address] [employer] Work Phone: 10-01-2021 11:25-0400 Body mass index (BMI) [Ratio] 31.06 kg/m2 Davide Reny [employer] Phone: [place] [address] [employer] Work Phone: 10-01-2021 11:25-0400 Body surface area Derived from formula 1.97 m2 Davide Reny [employer] Work Phone: [place] [address] [employer] Work Phone: 10-01-2021 11:25-0400 Body weight 87.3 kg Davide Reny [employer] Work Phone: [place] [address] [employer] Work Phone: 10-01-2021 11:25-0400 Diastolic blood pressure 62 mm[Hg] Davide Oglesby [employer] Work Phone: [place] [address] [employer] Work Phone: 10-01-2021 11:25-0400 Systolic blood pressure 102 mm[Hg] Davide [employer] Work Phone: [place] [address] [place] Work Phone: 09-24-2021 11:14-0400 Body height 167.64 cm Davide Reny [employer] Work Phone: [place] [address] [place] Work Phone: 09-24-2021 11:14-0400 Body mass index (BMI) [Ratio] 30.53 kg/m2 Davide Oglesby [employer] Work Phone: [place] [address] [place] Work Phone: 09-24-2021 11:14-0400 Body surface area Derived from formula 1.95 m2 Davide Oglesby [employer] Work Phone: [place] [address] [employer] Work Phone: 09-24-2021 11:14-0400 Body weight 85.79 kg Davide [employer] Work Phone: [employer] [place] [address] [place] Work Phone: 09-24-2021 11:14-0400 Diastolic blood pressure 80 mm[Hg] Davide [employer] Work Phone: [place] [address] [place] Work Phone: 09-24-2021 11:14-0400 Systolic blood pressure 110 mm[Hg] Davide [employer] Work Phone: [place] [address] [place] Work Phone: 09-17-2021 11:35-0400 Body height 167.64 cm Davide Oglesby [employer] Work Phone: [place] [address] [place] Work Phone: 09-17-2021 11:35-0400 Body mass index (BMI) [Ratio] 30.21 kg/m2 Davide Oglesby [employer] Work Phone: [place] [address] [place] Work Phone: 09-17-2021 11:35-0400 Body surface area Derived from formula 1.94 m2 Davide D [employer] Work Phone: [place] [address] [place] Work Phone: 09-17-2021 11:35-0400 Body weight 84.9 kg Davide D [employer] Work Phone: [place] [address] [place] Work Phone: 09-17-2021 11:35-0400 Diastolic blood pressure 66 mm[Hg] Davide D [employer] Work Phone: [place] [address] [place] Work Phone: 09-17-2021 11:35-0400 Systolic blood pressure 108 mm[Hg] Davide D [employer] Work Phone: [place] [address] [place] Work Phone: 09-10-2021 10:59-0400 Body height 167.64 cm Davide D [employer] Work Phone: [place] [address] [place] Work Phone: 09-10-2021 10:59-0400 Body mass index (BMI) [Ratio] 30.1 kg/m2 Davide D [employer] Work Phone: [place] [address] [place] Work Phone: 09-10-2021 10:59-0400 Body surface area Derived from formula 1.94 m2 Davide D [employer] Work Phone: [place] [address] [place] Work Phone: 09-10-2021 10:59-0400 Body weight 84.6 kg Davide D [employer] Work Phone: [place] [address] [place] Work Phone: 09-10-2021 10:59-0400 Diastolic blood pressure 62 mm[Hg] Davide D [employer] Work Phone: [place] [address] [place] Work Phone: 09-10-2021 10:59-0400 Systolic blood pressure 110 mm[Hg] Davide Oglesby [employer] Work Phone: [employer] Work Phone: 08-27-2021 11:23-0400 Body height 167.64 cm Davide D [employer] Work Phone: [employer] Work Phone: 08-27-2021 11:23-0400 Body mass index (BMI) [Ratio] 30.04 kg/m2 Davide Oglesby [employer] Work Phone: [employer] Work Phone: 08-27-2021 11:23-0400 Body surface area Derived from formula 1.94 m2 Davide Oglesby [employer] Work Phone: [employer] Work Phone: 08-27-2021 11:23-0400 Body weight 84.43 kg Davide Oglesby [employer] Work Phone: [employer] Work Phone: 08-27-2021 11:23-0400 Diastolic blood pressure 78 mm[Hg] Davide D [employer] Work Phone: [employer] Work Phone: 08-27-2021 11:23-0400 Systolic blood pressure 118 mm[Hg] Davide D [employer] Work Phone: [employer] Work Phone: 08-13-2021 08:58-0500 Body height 167.64 cm Davide Oglesby [employer] Work Phone: [employer] Work Phone: 08-13-2021 08:58-0500 Body mass index (BMI) [Ratio] 29.39 kg/m2 Davide D [employer] Work Phone: [employer] Work Phone: 08-13-2021 08:58-0500 Body surface area Derived from formula 1.92 m2 Davide D [employer] Work Phone: [place] [address] [place] Work Phone: 08-13-2021 08:58-0500 Body weight 82.6 kg Davide D [employer] Work Phone: [employer] [place] [address] [place] Work Phone: 08-13-2021 08:58-0500 Diastolic blood pressure 60 mm[Hg] Davide D [employer] Work Phone: [employer] Work Phone: 08-13-2021 08:58-0500 Systolic blood pressure 112 mm[Hg] Davide D [employer] Work Phone: [place] [address] [employer] Work Phone: 07-30-2021 11:06-0500 Body height 167.64 cm Davide D [employer] Work Phone: [place] [address] [employer] Work Phone: 07-30-2021 11:06-0500 Body mass index (BMI) [Ratio] 28.93 kg/m2 Davide D [employer] Work Phone: [place] [address] [place] Work Phone: 07-30-2021 11:06-0500 Body surface area Derived from formula 1.91 m2 Davide D [employer] Work Phone: [employer] [place] [address] [place] Work Phone: 07-30-2021 11:06-0500 Body weight 81.3 kg Davide D [employer] Work Phone: [place] [address] [place] Work Phone: 07-30-2021 11:06-0500 Diastolic blood pressure 68 mm[Hg] Davide D [employer] Work Phone: [place] [address] [employer] Work Phone: 07-30-2021 11:06-0500 Systolic blood pressure 114 mm[Hg] Davide [employer] Work Phone: [place] [address] [employer] Work Phone: 07-12-2021 14:39-0500 Body height 167.64 cm Davide [employer] Work Phone: [place] [address] [employer] Work Phone: 07-12-2021 14:39-0500 Body mass index (BMI) [Ratio] 28.75 kg/m2 Davide [employer] Work Phone: [place] [address] [employer] Work Phone: 07-12-2021 14:39-0500 Body surface area Derived from formula 1.9 m2 Davide [employer] Work Phone: [place] [address] [employer] Work Phone: 07-12-2021 14:39-0500 Body temperature 97.7 [degF] Davide [employer] Work Phone: [place] [address] [employer] Work Phone: 07-12-2021 14:39-0500 Body weight 80.8 kg Davide [employer] Work Phone: [place] [address] [employer] Work Phone: 07-12-2021 14:39-0500 Diastolic blood pressure 64 mm[Hg] Davide Reny [employer] Work Phone: [place] [address] [employer] Work Phone: 07-12-2021 14:39-0500 Systolic blood pressure 116 mm[Hg] Davide Reny [employer] Work Phone: [place] [address] [employer] Work Phone: 06-23-2021 20:00-0500 Body height 167.6 cm Gallito Couch MD Work Phone: [facility] [facility] 06-23-2021 20:00-0500 Body mass index (BMI) [Ratio] 27.95 kg/m2 Gallito Couch MD Work Phone: [facility] 06-23-2021 20:00-0500 Body temperature 98.4 [degF] Gallito Couch MD Work Phone: [facility] 06-23-2021 20:00-0500 Body weight 78.55 kg Gallito Couch MD Work Phone: [facility] 06-23-2021 20:00-0500 Diastolic blood pressure 66 mm[Hg] Gallito Couch MD Work Phone: [facility] 06-23-2021 20:00-0500 Heart rate 81 /min Gallito Couch MD Work Phone: [facility] 06-23-2021 20:00-0500 Respiratory rate 18 /min Gallito Couch MD Work Phone: [facility] 06-23-2021 20:00-0500 SaO2% (BldA) [Mass fraction] 98 % Gallito Couch MD Work Phone: [facility] 06-23-2021 20:00-0500 Systolic blood pressure 101 mm[Hg] Gallito Couch MD Work Phone: [facility] 05-17-2021 13:06-0500 Body height 167.6 cm Yuri Ramos MD Work Phone: [facility] 05-17-2021 13:06-0500 Body mass index (BMI) [Ratio] 26.26 kg/m2 Yuri Ramos MD Work Phone: [facility] 05-17-2021 13:06-0500 Body weight 73.8 kg Yuri Ramos MD Work Phone: [facility] 05-17-2021 13:06-0500 Diastolic blood pressure 65 mm[Hg] Yuri Ramos MD Work Phone: [facility] 05-17-2021 13:06-0500 Heart rate 80 /min Yuri Ramos MD Work Phone: [facility] 05-17-2021 13:06-0500 SaO2% (BldA) [Mass fraction] 95 % Yuri Ramos MD Work Phone: [facility] 05-17-2021 13:06-0500 Systolic blood pressure 97 mm[Hg] Yuri Ramos MD Work Phone: [facility] 03-17-2021 02:05-0400 Diastolic blood pressure 66 mm[Hg] Davide Chao Other Phone: [facility] 03-17-2021 02:05-0400 Heart rate 59 /min Davide Chao Other Phone: [facility] 03-17-2021 02:05-0400 Respiratory rate 16 /min Davide Chao Other Phone: [facility] 03-17-2021 02:05-0400 SaO2% (BldA) [Mass fraction] 96 % Davide Chao Other Phone: [facility] 03-17-2021 02:05-0400 Systolic blood pressure 102 mm[Hg] Davide Chao Other Phone: [facility] 03-01-2021 06:50-0400 Diastolic blood pressure 63 mm[Hg] Davide Chao Other Phone: [facility] 03-01-2021 06:50-0400 Heart rate 60 /min Davide Chao Other Phone: [facility] 03-01-2021 06:50-0400 Respiratory rate 18 /min Davide Chao Other Phone: [facility] 03-01-2021 06:50-0400 SaO2% (BldA) [Mass fraction] 99 % Davide Chao Other Phone: [facility] 03-01-2021 06:50-0400 Systolic blood pressure 98 mm[Hg] Davide Chao Other Phone: [facility] 12-15-2020 02:09-0400 Diastolic blood pressure 72 mm[Hg] Davide Chao Other Phone: [facility] 12-15-2020 02:09-0400 Heart rate 74 /min Davide Chao Other Phone: [facility] 12-15-2020 02:09-0400 Respiratory rate 20 /min Davide Chao Other Phone: [facility] 12-15-2020 02:09-0400 SaO2% (BldA) [Mass fraction] 99 % Davide Chao Other Phone: [facility] 12-15-2020 02:09-0400 Systolic blood pressure 107 mm[Hg] Davide Chao Other Phone: [facility] 12-08-2020 03:30-0400 Diastolic blood pressure 68 mm[Hg] Davide Chao Other Phone: [facility] 12-08-2020 03:30-0400 Heart rate 61 /min Davide Chao Other Phone: [facility] 12-08-2020 03:30-0400 SaO2% (BldA) [Mass fraction] 98 % Davide Chao Other Phone: [facility] 12-08-2020 03:30-0400 Systolic blood pressure 103 mm[Hg] Davide Chao Other Phone: [facility] 12-08-2020 02:21-0400 Respiratory rate 16 /min Davide Chao Other Phone: [facility] 09-27-2020 12:09-0400 Body temperature 98.4 [degF] Barbara Sandoval MD Work Phone: [facility] 09-27-2020 12:09-0400 Diastolic blood pressure 76 mm[Hg] Barbara Sandoval MD Work Phone: [facility] 09-27-2020 12:09-0400 Heart rate 102 /min Barbara Sandoval MD Work Phone: [facility] 09-27-2020 12:09-0400 Respiratory rate 18 /min Barbara Sandoval MD Work Phone: [facility] 09-27-2020 12:09-0400 SaO2% (BldA) [Mass fraction] 100 % Barbara Sandoval MD Work Phone: [facility] 09-27-2020 12:09-0400 Systolic blood pressure 114 mm[Hg] Barbara Sandoval MD Work Phone: [facility] 09-26-2020 21:00-0400 Diastolic blood pressure 59 mm[Hg] Davide Chao Other Phone: [facility] 09-26-2020 21:00-0400 Heart rate 66 /min Davide Willieagusto Other Phone: [facility] 09-26-2020 21:00-0400 Respiratory rate 18 /min Davide Willieagusto Other Phone: [facility] 09-26-2020 21:00-0400 SaO2% (BldA) [Mass fraction] 99 % Davide Willieagusto Other Phone: [facility] 09-26-2020 21:00-0400 Systolic blood pressure 95 mm[Hg] Davide Chao Other Phone: [facility] 09-26-2020 19:57-0400 Diastolic blood pressure 85 mm[Hg] [facility] Work Phone: [facility] 09-26-2020 19:57-0400 Heart rate 75 /min Generic [facility] Work Phone: [facility] 09-26-2020 19:57-0400 Respiratory rate 16 /min Generic [facility] Work Phone: [facility] 09-26-2020 19:57-0400 Systolic blood pressure 121 mm[Hg] [facility] Work Phone: [facility] 09-26-2020 16:40-0400 Body height 167.6 cm Davide Chao Other Phone: [facility] 09-26-2020 16:40-0400 Body temperature 98.6 [degF] Davide Chao Other Phone: [facility] 09-26-2020 16:40-0400 Body weight 72.7 kg Davide Chao Other Phone: [facility] 09-01-2018 22:18-0400 BP Diastolic 79 mm[Hg] [facility] 09-01-2018 22:18-0400 BP Systolic 108 mm[Hg] [facility] 09-01-2018 22:18-0400 Pulse (Heart Rate) 73 /min [facility] 09-01-2018 22:18-0400 Pulse Oximetry 100 % [facility] 09-01-2018 22:18-0400 Respiratory Rate 16 /min [facility] 09-01-2018 16:13-0400 BMI (Body Mass Index) 21.95 kg/m2 [facility] 09-01-2018 16:13-0400 Body Temperature 98.01 [degF] [facility] 09-01-2018 16:13-0400 Height 167.6 cm [facility] 09-01-2018 16:13-0400 Weight 61.69 kg [facility] Encounters Encounter Date Encounter Type Care Provider Facility Start: 11-15-2024 End: 11-15-2024 Patient encounter procedure Jeanette Roach CNM -Lab [facility] Start: 11-15-2024 End: 11-15-2024 ambulatory Jeanette Roach Facility:[facility] Start: 11-11-2024 End: 11-11-[address] Davide Chao MD Work Phone: [facility] Work Phone: Start: 11-11-2024 End: 11-11-[address] Melissa Brasher DO -Laboratory Work Phone: Start: 11-11-2024 End: 11-11-2024 ambulatory Melissa Bras[place] Facility:[facility] Start: 10-26-2024 End: 10-26-[address] Davide Chao MD Work Phone: [facility] Work Phone: Start: 10-26-2024 End: 10-26-[address] Melissa Brasher DO -Laboratory Work Phone: Start: 10-26-2024 End: 10-26-2024 ambulatory Melissa Brasher Facility:[facility] Start: 09-12-2024 End: 11-12-2024 Follow-up encounter Marina Snell APRN.EMAIL DESIGNER Work Phone: OB/Gynecology Start: 09-12-2024 End: 09-12-2024 Telephone encounter Davide Chao MD Work Phone: [facility] [place] Comment on above: Faxed to [facility] Start: 09-10-2024 End: 09-10-2024 ambulatory [employer] Work Phone: OB/Gynecology Start: 09-10-2024 End: 09-10-2024 Patient encounter procedure Us Tech 1 [employer] OB/Gynecology Start: 09-05-2024 End: 09-05-2024 ambulatory DAVIDE CHAO Facility:[facility] Start: 09-05-2024 End: 09-05-2024 Patient encounter procedure Marina Snell APRN.EMAIL DESIGNER Work Phone: OB/Gynecology Comment on above: Uterine cyst (Primar y Dx); Adenomyosis of uterus Start: 08-21-2024 End: 08-21-[address] Davide Chao MD Work Phone: [facility] Work Phone: Start: 08-21-2024 End: 08-21-[address] Melissa Brasher DO -Ultrasound, [facility] Work Phone: Start: 08-21-2024 End: 08-21-2024 ambulatory Melissa Brasher Facility:[facility] Start: 08-19-2024 End: 08-19-[address] Davide Chao MD Work Phone: [facility] Work Phone: Start: 08-19-2024 End: 08-19-[address] Melissa Brasher DO -Laboratory, Specimen Work Phone: Start: 08-19-2024 End: 08-19-[address] Melissa Brasher DO -[facility] Work Phone: Start: 08-19-2024 End: 08-19-2024 ambulatory Melissa Brasher Facility:[facility] Start: 08-19-2024 End: 10-19-2024 Follow-up encounter Davide Chao MD Work Phone: Family [facility] Start: 08-19-2024 End: 08-19-2024 ambulatory Melissa Brasher Facility:[facility] Start: 08-16-2024 End: 08-16-2024 ambulatory DAVIDE CHAO Facility:[facility] Start: 08-15-2024 ambulatory [facility] Start: 08-14-2024 End: 08-15-2024 Telephone encounter Davide Chao MD Work Phone: [facility] Comment on above: Results (labs) Start: 08-12-2024 End: 08-12-2024 Follow-up encounter Davide Chao MD Work Phone: [facility] [place] Start: 08-12-2024 End: 08-12-2024 ambulatory DAVIDE CHAO Facility:[facility] Start: 08-06-2024 End: 08-06-2024 Distance Health Davide Chao MD Work Phone: [facility] [place] Comment on above: Elevated blood press ure reading without diagnosis of hypertension (Primary Dx); Fibromyalgia; Anxiety with depression; ADHD (attention deficit hyperactivity disorder), combined type Start: 07-24-2024 End: 07-24-2024 Patient encounter procedure Laura Salinas CNM -Lab, [facility] Start: 07-24-2024 End: 07-24-2024 ambulatory Laurawing Salinas Facility:[facility] Start: 06-10-2024 End: 06-10-2024 Patient encounter procedure Davide Chao MD Work Phone: [facility] Comment on above: Anxiety (Primary Dx) ; Elevated blood pressure reading without diagnosis of hypertension; ADHD (attention deficit hyperactivity disorder), combined type Start: 06-10-2024 End: 06-10-2024 ambulatory DAVIDE CHAO Facility:[facility] Start: 06-10-2024 End: 06-10-2024 ambulatory [facility] Facility:[facility] Start: 04-19-2024 End: 04-19-2024 ambulatory Laura Salinas Facility:[facility] Start: 04-19-2024 End: 04-19-2024 ambulatory [facility] [place] Facility:[facility] Start: 03-29-2024 End: 03-29-2024 ambulatory Davide [facility]ao MD [facility] Comment on above: Eosinophilic esophag itis (Primary Dx); Anxiety with depression; Dysphagia, unspecified type Start: 03-29-2024 End: 03-29-2024 Telemedicine consultation with patient Davide Chao MD Work Phone: [facility] Start: 03-26-2024 End: 03-26-2024 ambulatory Davide Chao MD Work Phone: [facility] Comment on above: Advice Start: 03-22-2024 End: 03-22-2024 Emergency department patient visit RAMON PULLIAM MD [facility] Start: 03-22-2024 End: 03-22-2024 Telephone encounter Davide Chao MD Work Phone: Family [facility] [place] Comment on above: Chest Pain Start: 03-22-2024 End: 03-22-2024 Emergency department patient visit ANTONETTE Siddiqi MANFRED [facility] Start: 12-28-2023 Telephone encounter Davide dneg MD Work Phone: [facility] [place] Comment on above: Medication Request Start: 12-08-2023 End: 12-08-2023 ambulatory Davide Chao MD Work Phone: [facility] Comment on above: Anxiety with depress ion (Primary Dx) Start: 12-08-2023 End: 12-08-2023 Telemedicine consultation with patient Davide Chao MD Work Phone: [facility] [place] Start: 11-03-2023 End: 11-03-2023 ambulatory Davide Chao MD Work Phone: [facility] Comment on above: Fibromyalgia (Primar y Dx); Anxiety with depression; Near syncope; URI, acute Start: 11-03-2023 End: 11-03-2023 Telemedicine consultation with patient Davide Chao MD Work Phone: [facility] [place] Start: 11-01-2023 Refill Davide haq MD Work Phone: [facility] Comment on above: Refill Request Start: 10-18-2023 Telephone encounter Rayo Nielson PA-C Work Phone: [facility] Start: 10-17-2023 End: 10-17-2023 ambulatory DAVIDE CHAO Facility:[facility] Start: 10-17-2023 End: 10-17-2023 Office outpatient visit 25 minutes Rayo Nielson PA-C Work Phone: [facility] [place] Comment on above: Near syncope (Primar y Dx) Start: 10-03-2023 Non-patient / Non-visit Dr. Richi Chao Work Phone: [facility] Start: 10-03-2023 End: 10-03-2023 Admission to same day surgery center Dr. Davide Chao Work Phone: [facility] Start: 10-03-2023 End: 10-03-[address] Davide Chao Work Phone: [facility] Work Phone: Start: 09-21-2023 End: 09-21-2023 Emergency department patient visit ANATOLIY BRYANT [facility] Start: 09-04-2023 End: 09-04-[address] Davide Chao Work Phone: [facility] Work Phone: Start: 08-11-2023 ambulatory Davide haq MD Work Phone: [facility] Comment on above: Supplement Start: 08-10-2023 End: 08-10-2023 Patient encounter procedure Roberto King SERA Work Phone: [facility] Comment on above: Viral syndrome (Prim james Dx); Urinary frequency Start: 07-13-2023 End: 07-13-[address] Davide Chao Work Phone: [facility] Work Phone: Start: 07-13-2023 End: 07-13-[address] Davide Chao Work Phone: [facility] Work Phone: Start: 07-11-2023 Refill Davide haq MD Work Phone: [facility] Comment on above: Refill Request Start: 06-28-2023 End: 06-28-[address] Davide Chao Work Phone: [facility] Work Phone: Start: 06-28-2023 End: 06-28-[address] Davide Chao Work Phone: [facility]-Laboratory, Specimen Work Phone: Start: 06-28-2023 End: 06-28-[address] Davide Chao Work Phone: [facility] Work Phone: Start: 06-28-2023 End: 06-28-[address] Davide Chao Work Phone: [facility] Emergency Department Work Phone: Start: 06-20-2023 [facility] Start: 06-09-2023 End: 06-09-2023 Subsequent hospital visit by physician Alina Alvarado MD Work Phone: [facility] Office Clinician Comment on above: Arrived Start: 06-06-2023 End: 06-07-2023 Emergency department patient visit Son Gunderson MD Work Phone: [facility] Emergency Medicine Comment on above: Vaginal bleeding (Pr imary Dx) Start: 05-31-2023 [facility] Start: 05-31-2023 End: 05-31-2023 Subsequent hospital visit by physician Alina Alvarado MD Work Phone: [facility] Office Clinician Comment on above: Arrived Start: 05-16-2023 [facility] DAVIDE CHAO [facility] Start: 05-08-2023 Refill Davide haq MD Work Phone: [facility] Comment on above: Refill Request Start: 04-07-2023 Telephone encounter Davide deng MD Work Phone: [facility] Comment on above: Patient Question Start: 03-28-2023 End: 03-28-2023 ambulatory Davide Chao MD Work Phone: [facility] Comment on above: Anxiety with depress ion (Primary Dx); Bilateral leg edema; Anemia, unspecified type; Elevated liver function tests Start: 03-28-2023 End: 03-28-2023 Telemedicine consultation with patient Davide Chao MD Work Phone: [facility] Start: 03-18-2023 Non-patient / Non-visit Dr. Richi Chao Work Phone: [facility] Start: 03-18-2023 End: 03-18-[address] Davide Chao Work Phone: [facility] Work Phone: Start: 03-18-2023 End: 03-18-[address] Davide Chao Work Phone: [facility] Outpatients Work Phone: Start: 03-18-2023 End: 03-18-2023 Emergency department patient visit DAVIDE WALSH [facility] Start: 03-13-2023 Non-patient / Non-visit Dr. Richi Chao Work Phone: [facility] Start: 03-13-2023 End: 03-13-2023 Emergency department patient visit Edy Orellana MD Work Phone: [facility] Emergency Medicine Comment on above: Hypertension, unspec ified type (Primary Dx); induced hypertension, antepartum Start: 03-12-2023 Non-patient / Non-visit Dr. Richi Chao Work Phone: [facility] Start: 03-11-2023 Non-patient / Non-visit Dr. Richi Chao Work Phone: [facility] Start: 03-10-2023 Non-patient / Non-visit Dr. Richi Chao Work Phone: [facility] Start: 03-09-2023 Non-patient / Non-visit Dr. Richi Chao Work Phone: [facility] Start: 03-09-2023 End: 03-11-2023 Evaluation and management of inpatient Dr. Davide Chao Work Phone: [facility] Work Phone: Start: 03-09-2023 End: 03-09-[address] Davide Chao Work Phone: [facility] Work Phone: Start: 03-08-2023 Non-patient / Non-visit Dr. Richi Chao Work Phone: [facility] Start: 03-08-2023 End: 03-08-[address] Davide Chao Work Phone: [facility] Work Phone: Start: 03-04-2023 Non-patient / Non-visit Dr. Richi Chao Work Phone: [facility] Start: 03-04-2023 End: 03-04-[address] Davide Chao Work Phone: [facility] Work Phone: Start: 03-04-2023 End: 03-04-[address] Davide Chao Work Phone: [facility], Outpatients Work Phone: Start: 03-04-2023 End: 03-04-[address] Davide Chao Work Phone: [facility] Work Phone: Start: 03-04-2023 End: 03-04-[address] Davide Chao Work Phone: [facility], Outpatients Work Phone: Start: 03-03-2023 End: 03-03-[address] Davide Chao Work Phone: [facility] Work Phone: Start: 03-01-2023 End: 03-01-[address] Davide Chao Work Phone: [facility], Outpatients Work Phone: Start: 02-28-2023 End: 02-28-[address] Davide Chao Work Phone: [facility] Work Phone: Start: 02-28-2023 End: 02-28-[address] Davide Chao Work Phone: [facility] Work Phone: Start: 02-24-2023 End: 02-24-[address] Davide Chao Work Phone: [facility] Work Phone: Start: 02-22-2023 End: 02-22-[address] Davide Chao Work Phone: [facility] Work Phone: Start: 02-22-2023 End: 02-22-[address] Davide Chao Work [facility] Work Phone: Start: 02-18-2023 Non-patient / Non-visit Dr. Richi Chao Work Phone: [facility] Start: 02-18-2023 End: 02-18-[address] Davide Chao Work Phone: [facility] Work Phone: Start: 02-18-2023 End: 02-18-[address] Davide Chao Work Phone: [facility], Outpatients Work Phone: Start: 02-17-2023 End: 02-17-[address] Davide Chao Work Phone: [facility]-Laboratory, Specimen Work Phone: Start: 02-17-2023 End: 02-17-[address] Davide Chao Work Phone: [facility] Work Phone: Start: 02-02-2023 End: 02-02-[address] Davide Chao Work Phone: [facility] Work Phone: Start: 02-01-2023 End: 02-01-[address] Davide Chao Work Phone: [facility] Work Phone: Start: 01-30-2023 Non-patient / Non-visit Dr. Richi Chao Work Phone: [facility] Start: 01-30-2023 Telephone encounter Davide deng MD Work Phone: [facility] [place] Comment on above: Pain, Back; yellowin g of sclera Start: 01-30-2023 End: 01-30-[address] Davide Chao Work Phone: [facility] Work Phone: Start: 01-30-2023 End: 01-30-[address] Davide Chao Work [facility] Work Phone: Start: 01-27-2023 End: 01-27-2023 Patient encounter procedure Marilyn Gruber APRN.EMAIL DESIGNER Work Phone: [facility] Comment on above: STD (sexually transm itted disease) (Primary Dx) Start: 01-23-2023 End: 01-23-2023 Emergency department patient visit Dr. Davide Chao Work Phone: [facility]Emergency Department Work Phone: Start: 01-16-2023 Non-patient / Non-visit Dr. Richi Chao Work Phone: [facility] Start: 01-16-2023 End: 01-16-[address] [facility] Work Phone: Start: 01-16-2023 End: 01-16-[address] Davide Chao Work Phone: [facility] Work Phone: Start: 12-21-2022 End: 12-21-[address] Davide Chao Work Phone: [facility] Work Phone: Start: 11-29-[address] Davide Chao Facility:[id number] Start: 11-29-2022 Patient encounter procedure [facility] Start: 11-25-2022 End: 11-25-[address] Davide Chao Work Phone: [facility] Work Phone: Start: 11-11-2022 End: 11-11-[address] Davide Chao Work Phone: [facility] Work Phone: Start: 11-11-2022 End: 11-11-[address] Davide Chao Facility:[id number] Start: 11-11-2022 End: 11-11-2022 Subsequent hospital visit by physician Andry Rueda MD Work Phone: [facility] Comment on above: Lower abdominal pain , unspecified; Antepartum hemorrhage, unspecified, second trimester; Maternal care for other rhesus isoimmunization, second trimester, not applicable or unspecified; 21 weeks gestation of Start: 11-10-[address] Davide Chao Facility:[id number] Start: 11-04-2022 [facility] Start: 11-04-2022 End: 11-04-2022 Subsequent hospital visit by physician Alina Alvarado MD Work Phone: [facility] Office Clinician Comment on above: Arrived Start: 11-04-2022 End: 11-04-[address] Davide Chao Work Phone: [facility] Work Phone: Start: 11-04-2022 End: 11-04-[address] Davide Chao Work Phone: [facility] Start: 11-03-2022 AQUATICFU4, Provider : Katalina Roach, Status: Pen, Time: 11:30 AM Davide Chao Work Phone: [facility] Work Phone: Start: 11-01-2022 Patient encounter procedure Dvaide Chao Work [facility] Work [facility]: Start: 11-01-[address] Davide Chao Facility:[id number] Start: 10-28-2022 End: 10-28-[address] Davide Chao Work Phone: [facility] Emergency Department Start: 10-18-2022 Patient encounter procedure Davide Chao Work [facility] Work [facility]: Start: 10-18-[address] Davide Chao Facility:[id number] Start: 10-10-2022 Telephone encounter Davide deng MD Work Phone: [facility] Comment on above: Referral Request Start: 10-10-2022 End: 10-10-2022 ambulatory DAVIDE CHAO [facility] Start: 09-28-2022 End: 09-28-[address] Davide Chao Work Phone: [facility] Work Phone: Start: 09-28-2022 End: 09-28-[address] Davide Chao Work Phone: [facility]-Laboratory, Specimen Start: 09-28-2022 End: 09-28-[address] Davide Chao Work Phone: [facility] Start: 09-11-2022 End: 09-12-2022 Emergency department patient visit Byron Aranda [facility] Emergency 09 Start: 09-10-2022 End: 09-11-2022 Emergency department patient visit Dr. John Valladares Facility:[id number] Start: 08-17-2022 End: 08-17-[address] Davide Chao Work Phone: [facility] Work Phone: Start: 08-17-2022 End: 08-17-[address] Davide Chao [facility] Start: 08-17-2022 End: 08-17-[address] Davide Chao Work Phone: [facility] Start: 08-10-[address] Davide Chao Facility:[id number] Start: 08-03-2022 End: 08-03-[address] Davide Chao Work Phone: [facility] Start: 08-02-2022 End: 08-02-2022 Emergency department patient visit [facility] Start: 07-30-2022 End: 07-31-2022 ambulatory [facility] Start: 07-30-2022 End: 07-30-2022 Subsequent hospital visit by physician Davide Chao Work Phone: [facility] Start: 07-29-2022 End: 07-29-[address] Davide Chao Work Phone: [facility] Work Phone: Start: 07-29-2022 End: 07-29-[address] Davide Chao Work Phone: [facility] Start: 07-28-2022 End: 07-30-2022 ambulatory YANIV Cantor SKYE [facility] Hospit al Start: 07-28-2022 End: 07-30-2022 Subsequent hospital visit by physician [facility] Ultrasound Room [facility] Comment on above: Acute bilateral low back pain with right-sided sciatica; , unspecified gestational age , unspecifi ed gestational age Start: 07-26-2022 End: 07-26-2022 Emergency department patient visit [facility] Start: 07-14-2022 Emergency department patient visit [facility] Start: 07-13-2022 End: 07-14-2022 Emergency department patient visit Nery Esparza MD Work Phone: [facility] Comment on above: Back strain, initial encounter (Primary Dx) Start: 06-21-2022 End: 06-21-2022 ambulatory Davide Chao MD Work Phone: [facility] [place] Comment on above: Chronic insomnia (Pr imary Dx); Anxiety with depression; Gastritis without bleeding, unspecified chronicity, unspecified gastritis type Start: 06-21-2022 End: 06-21-2022 Telemedicine consultation with patient Davide Chao MD Work Phone: [facility] [place] Start: 05-09-2022 End: 05-09-2022 [facility] Start: 03-04-2022 End: 03-04-2022 ambulatory Davide Chao MD Work Phone: [facility] [place] Comment on above: Anxiety with depress ion (Primary Dx) Start: 03-04-2022 End: 03-04-2022 Telemedicine consultation with patient Davide Chao MD Work Phone: [facility] Start: 03-03-2022 ambulatory Davide haq MD Work Phone: [facility] Medicine [place] Comment on above: Medications Start: 11-29-2021 E-mail encounter fro m caregiver [facility] Start: 11-29-2021 Follow-up encounter [facility] Comment on above: Follow up Start: 11-29-2021 End: 11-29-2021 ambulatory Davide Chao MD Work Phone: [facility] Comment on above: Anxiety Start: 11-29-2021 End: 11-29-2021 Telemedicine consultation with patient Davide Chao MD Work Phone: [facility] Start: 11-21-2021 End: 11-21-2021 ambulatory [facility] Start: 11-21-2021 End: 11-21-2021 Office outpatient visit 15 minutes [facility] Work Phone: [facility]gent [facility] Comment on above: Non-recurrent acute suppurative otitis media of left ear without spontaneous rupture of tympanic membrane (Primary Dx) Start: 11-16-[address] Davide Chao Facility:[id number] Start: 10-12-2021 End: 10-14-2021 Evaluation and management of inpatient Andry Rueda [facility] L[facility] 405 Start: 10-11-2021 Chart Update Davide haq Work Phone: [address] Work Phone: Start: 10-08-2021 ambulatory MD ANDRY RUEDA Facility:[id number] Start: 10-01-2021 Office outpatient vi sit 15 minutes Davide D Elderbrock Work Phone: [facility] [address] Work Phone: Start: 10-01-2021 ambulatory MD ANDRY RUEDA Facility:[id number] Start: 09-27-2021 Chart Update Davide Reny Williebr ock Work Phone: [facility] [address] Work Phone: Start: 09-24-2021 Office outpatient vi sit 10 minutes Davide Oglesby Deannck Work Phone: [facility] [address] Work Phone: Start: 09-24-[address] Anil Panchal Fa cility:[id number] Start: 09-20-2021 Chart Update Davide Oglesby Cristino ock Work Phone: [facility] [address] Work Phone: Start: 09-17-[address] Davide Chao Facility:[id number] Start: 09-10-2021 Office outpatient vi sit 15 minutes Davide Chao Work Phone: [facility] [address] Work Phone: Start: 09-10-[address] Davide Chao Facility:[id number] Start: 08-31-2021 AUDIT Davide Espitiaalvin ock Work Phone: [facility] [address] Work Phone: Start: 08-27-[address] Davide Chao Facility:[id number] Start: 08-27-2021 Office outpatient vi sit 15 minutes Davide Oglesby Williesaudsydney Work Phone: [facility] [address] Work Phone: Start: 08-13-2021 ambulatory MD ANDRY RUEDA Facility:[id number] Start: 08-06-2021 Chart Update Davide Espitiabr ock Work Phone: [facility] [address] Work Phone: Start: 07-30-2021 Office outpatient vi sit 15 minutes Davide Chao Work Phone: [place] [id number] [employer] Work Phone: Start: 07-12-2021 Office outpatient vi sit 15 minutes Davide Chao Work Phone: [facility] [id number] [employer] Work Phone: Start: 06-23-2021 End: 06-23-2021 Subsequent hospital visit by physician Gallito Couch MD Work Phone: [facility] Start: 05-17-2021 End: 05-21-2021 [facility] Start: 05-17-2021 End: 05-17-2021 Office outpatient new 45 minutes Maricel Simeon MD Work Phone: [facility] Comment on above: Palpitations (Primar y Dx) Start: 05-12-2021 End: 05-13-2021 Emergency department patient visit [facility] Start: 05-09-2021 End: 05-10-2021 Emergency department patient visit [facility] Start: 03-16-2021 End: 03-17-2021 Emergency department patient visit Cheyanne Izaguirre [facility] Emergency 10 Start: 03-01-2021 End: 03-01-2021 Emergency department patient visit Son Gunderson [facility] Emergency 12 Start: 02-12-2021 Patient requested procedure [facility] Provider [facility] Work Phone: Start: 12-14-2020 End: 12-15-2020 Emergency department patient visit Cheyanne Izaguirre [facility] Emergency 04 Start: 12-08-2020 End: 12-08-2020 [facility] Start: 09-27-2020 End: 09-27-2020 Emergency department patient visit [facility] Start: 09-27-2020 End: 09-27-2020 Emergency department patient visit Barbara Sandoval MD Work Phone: [facility] Emergency Department Start: 09-26-2020 End: 09-26-2020 ambulatory [facility] Start: 09-26-2020 End: 09-26-2020 Evaluation and management of inpatient Generic [facility] Work Phone: [facility] Intermediate Start: 09-26-2020 End: 09-26-2020 Emergency department patient visit Rm DuranSusana HandyEda [facility] Emergency 02 Start: 08-12-2020 End: 08-12-2020 Transcribe Orders Davide Chao Work Phone: [facility] Comment on above: Cervical pain (Prima ry Dx) Start: 09-18-2018 Emergency department patient visit UNKNOWN PROVIDER [facility] Start: 09-01-2018 End: 09-01-2018 Emergency department patient visit Tony Roe Egal Work Phone: [facility] Emergency Department Comment on above: Kidney stone on left side (Primary Dx) Start: 08-31-2018 End: 09-01-2018 Emergency department patient visit HITESH RESTREPO [facility] Start: 08-22-2018 Emergency department patient visit UNKNOWN PROVIDER [facility] Start: 08-17-2018 End: 08-17-2018 ambulatory UNKNOWN PROVIDER Facility:[facility] Start: 07-12-2018 End: 07-12-2018 Patient encounter procedure RENETTA SOW Facility:[facility] Start: 06-21-2018 End: 06-21-2018 Patient encounter procedure RENETTA SOW Facility:[facility] Start: 11-25-2017 End: 11-25-2017 Emergency department patient visit [facility] Facility:[facility] Procedures Date Procedure Procedure Detail Performing Clinician Start: 11-11-[address] Davide Chao MD Work Phone: Comment on above: Follicular phase 0.1 - 0.9 Luteal phase 1.8 - 23.9 Ovulation phase 0.1 - 12.0 First trimester 11.0 - 44.3 Second trimester 25.4 - 83.3 Third trimester 58.7 - 214.0 Postmenopausal 0.0 - 0.1Performed at: [facility] [address] [id number] Director: Maximilian Hunt PhD, Phone: [phone] Start: 09-10-2024 Us pelvic nonobstetric real-time image complete Marina Snell APRN.EMAIL DESIGNER Work Phone: Start: 08-21-[address] Davide Chao MD Work Phone: Start: 08-19-2024 Liquid based cervical cytology screening Dr. Davide Chao MD Work Phone: Comment on above: EPITHELIAL CELL ABNORMALITY.ATYPICAL SQU AMOUS CELLS OF UNDETERMINED SIGNIFICANCE (ASC-US). This liquid based Th inPrep(R) pap test was screened withthe use of an image guided system. Start: 08-19-[address] Davide Chao MD Work Phone: Start: 08-19-[address] Davide Chao MD Work Phone: Start: 06-10-[address] Davide Chao MD Work Phone: Start: 06-10-[address] Davide Chao MD Work Phone: Start: 03-22-2024 Urinalysis ANATOLIY BRYANT Comment on above: Result Comment: URINALYSIS Performed By: #### [id number] ####[place] [id number] Start: 10-03-[address] Davide Chao Work Phone: Start: 09-21-2023 Urinalysis ANATOLIY BRYANT Comment on above: Result Comment: URINALYSIS Performed By: #### [id number] #### [facility],[address] [place] [address] Start: 08-10-2023 INFLUENZA A&B MOLECULAR (POC) Roberto Andrea APRN.EMAIL DESIGNER Work Phone: Start: 08-10-2023 Urnls dip stick/tablet rgnt auto w/o microscopy Roberto Andrea APRN.EMAIL DESIGNER Work Phone: Start: 07-13-[address] Davide Chao Work Phone: Start: 06-28-[address] Davide Chao Work Phone: Start: 06-28-2023 Investigation of transfusion reaction Dr. Davide Chao Work Phone: Start: 06-07-2023 Bacteria identified in Urine by Culture DAVIDE CHAO Start: 06-07-2023 EXTRA URINE GILBERT TUBE DAVIDE CHAO Start: 06-07-2023 URINALYSIS MICROSCOPIC WITH REFLEX CULTURE DAVIDE CHAO Start: 06-07-2023 URINALYSIS WITH REFLEX CULTURE AND MICROSCOPIC DAVIDE CHAO Start: 06-07-2023 Basic metabolic 2000 panel - Serum or Plasma DAVIDE CHAO Start: 06-07-2023 ANTIBODY IDENTIFICATION DAVIDE CHAO Start: 06-07-2023 CBC W Auto Differential panel - Blood DAVIDE CHAO Start: 06-07-2023 TYPE AND SCREEN DAVIDE CHAO Start: 06-06-2023 Urinalysis complete W Reflex Culture panel - Urine Son Gunderson MD Work Phone: Start: 06-06-2023 Urnls dip stick/tablet reagent auto microscopy Son Gunderson MD Work Phone: Start: 06-06-2023 End: 06-06-2023 Basic metabolic panel calcium total Son Gunderson MD Work Phone: Start: 03-18-2023 Basic metabolic 2000 panel - Serum or Plasma DAVIDE CHAO Start: 03-18-2023 EXTRA URINE GILBERT TUBE DAVIDE CHAO Start: 03-18-2023 Hepatic function 2000 panel - Serum or Plasma DAVIDE CHAO Start: 03-18-2023 Lactate dehydrogenase [Enzymatic activity/volume] in Serum or Plasma DAVIDE CHAO Start: 03-18-2023 Urate [Mass/volume] in Serum or Plasma DAVIDE CHAO Start: 03-18-2023 URINALYSIS WITH REFLEX MICROSCOPIC AND CULTURE DVAIDE CHAO Start: 03-18-2023 CBC W Auto Differential panel - Blood DAVIDE CHAO Start: 03-13-2023 DISCHARGE PATIENT DAVIDE CHAO Start: 03-13-2023 INITIATE REQUEST TO ANOTHER FACILITY DAVIDE CHAO Start: 03-13-2023 Bacteria identified in Urine by Culture DAVIDE CHAO Start: 03-13-2023 URINALYSIS MICROSCOPIC ONLY DAVIDE LOPEZ Dung Start: 03-13-2023 URINALYSIS WITH REFLEX MICROSCOPIC AND CULTURE DAVIDE CHAO Start: 03-13-2023 XR CHEST 1 VIEW DAVIDE CHAO Start: 03-13-2023 aPTT in Blood by Coagulation assay DAVIDE CHAO Start: 03-13-2023 Basic metabolic 2000 panel - Serum or Plasma DAVIDE CHAO Start: 03-13-2023 C-reactive protein [facility] Start: 03-13-2023 CBC W Auto Differential panel - [facility] Start: 03-13-2023 Hepatic function 2000 panel - Serum or Plasma DAVIDE CHAO Start: 03-13-2023 Lactate [Moles/volume] in Serum or Plasma [facility] Start: 03-13-2023 Magnesium [Mass/volume] in Serum or Plasma [facility] Start: 03-13-2023 Natriuretic peptide B [Mass/volume] in Blood [facility] Start: 03-13-2023 Phosphate [Mass/volume] in Serum or Plasma [facility] Start: 03-13-2023 PROTIME-INR [facility]IDE [facility] Start: 03-13-2023 TROPONIN I, HIGH SENSITIVITY DAVIDE [facility] Start: 03-13-2023 EXTRA URINE GILBERT TUBE DAVIDE CHAO Start: 03-13-2023 Urinalysis microscopic panel - Urine Qualitative by Automated Edy Orellana MD Work Phone: Start: 03-13-2023 Urnls dip stick/tablet reagent auto microscopy Edy Orellana MD Work Phone: Start: 03-13-2023 Radiologic exam chest single view Edy Orellana MD Work Phone: Start: 03-13-2023 C-reactive protein Edy Orellana MD Work Phone: Start: 03-13-2023 Comprehensive metabolic panel Edy Orellana MD Work Phone: Start: 03-10-2023 Post Bilateral Tubal Occulsion (Bilateral) Dr. Davide Caho Work Phone: Start: 03-04-2023 Ultrasonography for biophysical profile without non-stress testing Dr. Davide Chao Work Phone: Start: 03-03-2023 Ultrasonography for biophysical profile without non-stress testing Dr. Davide Chao Work Phone: Start: 02-28-2023 Ultrasonography for biophysical profile without non-stress testing Dr. Davide Chao Work Phone: Start: 02-28-[address] Davide Chao Work Phone: Start: 02-28-2023 Group B Streptococcus Culture Dr. Davide Chao Work Phone: Start: 02-24-2023 Ultrasonography for biophysical profile without non-stress testing Dr. Davide Chao Work Phone: Start: 02-22-2023 Ultrasonography for biophysical profile without non-stress testing Dr. Davide Chao Work Phone: Start: 02-18-2023 Cytopathology procedure, preparation of smear, genital source Dr. Davide Chao Work Phone: Start: 02-18-2023 Investigation of transfusion reaction Dr. Davide Chao Work Phone: Start: 02-18-2023 Ultrasonography for biophysical profile without non-stress testing Dr. Davide Chao Work Phone: Start: 02-17-[address] acid [address] Davide Chao Work Phone: Start: 02-17-2023 Chlamydia trachomatis (PCR) Dr. Davide Chao Work Phone: Start: 02-02-2023 Ultrasonography for biophysical profile without non-stress testing Dr. Davide Chao Work Phone: Start: 01-30-2023 Ultrasonography for biophysical profile without non-stress testing Dr. Davide Chao Work Phone: Start: 01-30-2023 US scan of gallbladder Dr. Davide Chao Work Phone: Start: 01-16-2023 Bacteria identified in Urine by Culture Dr. Davide Chao Work Phone: Start: 01-16-[address] Davide Chao Work Phone: Start: 01-16-2023 Chlamydia trachomatis (PCR) Dr. Davide Chao Work Phone: Start: 01-16-2023 Cytopathology procedure, preparation of smear, genital source Dr. Davide Chao Work Phone: Start: 01-16-2023 Microscopic observation [Identifier] in Unspecified specimen by Gram stain Dr. Davide Chao Work Phone: Start: 11-11-[address] Davide Chao Comment on above: Performed By: #### T+S #### [place] [id number] [place] [address] Start: 11-11-2022 Antibody screen Andry Rueda MD Work Phone: Start: 11-11-2022 Us uterus limited 1/> fetuses Andry Rueda MD Work Phone: Start: 11-11-2022 Complete blood count Andry Rueda MD Work Phone: Start: 11-11-2022 Blood type and Indirect antibody screen panel - Blood Andry Rueda MD Work Phone: Start: 11-04-2022 Ultrasonography in first trimester Dr. Davide Chao Work Phone: Start: 09-28-2022 Cytopathology procedure, preparation of smear, genital source Dr. Davide Chao Work Phone: Start: 09-28-2022 Investigation of transfusion reaction Dr. Davide Chao Work Phone: Start: 08-03-[address] Davide hCao Work Phone: Start: 07-30-2022 Gonadotropin chorionic quantitative Unknown Provider Result Start: 07-28-2022 Us preg uterus real time w/image dcmtn transvag Yaniv Pederson MD Work Phone: Start: 07-28-2022 Gonadotropin chorionic quantitative Yaniv Pederson MD Work Phone: Start: 07-13-2022 Ct lumbar spine w/o contrast material Nery Esparza MD Work Phone: Start: 07-13-2022 Urine test visual color cmprsn meths Nery Esparza MD Work Phone: Start: 11-16-2021 care only separate procedure Davide Oglesby Deannsydney Work Phone: Start: 10-12-2021 Rhogam Andry Rueda Start: 06-23-2021 RAPID TOX SCREEN WITH RELEX [facility] Gallito Couch MD Work Phone: Start: 06-23-2021 Urinalysis, reagent strip without microscopy Gallito Couch MD Work Phone: Start: 05-17-2021 Referral to cardiology service Maricel Simeon MD Work Phone: Start: 12-14-2020 End: 12-14-2020 EKG impression Deyvi Green Start: 12-08-2020 End: 12-08-2020 EKG impression Davide Blount Start: 09-26-2020 End: 09-26-2020 EKG impression Byron I Moomaw Start: 10-11-2018 Follow-up visit Start: 09-01-2018 CT of urinary tract Davide Marion Work Phone: Start: 09-01-2018 Basic metabolic 2000 panel - Serum or Plasma Davide Marion Work Phone: Start: 09-01-2018 Complete blood count with white cell differential, automated Davide Marion Work Phone: Start: 09-01-2018 Complete blood count with white cell differential, manual Davide Marion Work Phone: Start: 09-01-2018 Hepatic function 2000 panel - Serum or Plasma Davide Marion Work Phone: Start: 09-01-2018 LIGHT BLUE TOP Tony Bhupinder Egal Work Phone: Start: 09-01-2018 LIGHT GREEN TOP Tony Roe Egal Work Phone: Start: 09-01-2018 Lipase [Enzymatic activity/volume] in Serum or Plasma Davide Marion Work Phone: Start: 09-01-2018 RAINBOW DRAW Tony Roe Egal Work Phone: Start: 09-01-2018 Choriogonadotropin ( test) [Presence] in Urine Tony Roe Egal Work Phone: Start: 09-01-2018 Urinalysis Tony Roe Egal Work Phone: Start: 08-17-2018 UROLOGY SERVICE REQUEST UNKNOWN PROVIDER Start: 06-15-2018 Microscopic observation [Identifier] in Cervix by Cyto stain Davide Chao Cardiac ablation sys tem (physical object) RAMON PULLIAM MD Cardiac catheterization CE PULLIAM MD Cholecystectomy Davide liz Work Phone: Comment on above: 2009; Cholecystectomy RAMON Duran MD Cytopathology proced ure, preparation of smear, genital source Dr. Davide Chao Work Phone: H/O: tubal ligation Status post tubal ligation Dr. Davide Chao Work Phone: Comment on above: 03/10/2023 History of cholecystectomy Hx of cholecys tectomy Dr. Davide Chao Work Phone: Investigation of transfusion reaction Dr. Davide Chao Work Phone: Sinusitis (disorder) RAMON TAPIA MD Surgical procedure Davide bearden Work Phone: Urine culture Dr. Davide Chao Work Phone: Plan of Treatment Date Care Activity Detail Author Start: 2040 Zoster Vaccines (1 of 2) Zoster Vaccines (1 of 2) [facility] Start: 08-19-2029 Screening for malignant neoplasm of cervix Cervical Cancer Screening [facility] Start: 05-04-2026 DTaP/Tdap/Td vaccine (2 - Td or Tdap) DTaP/Tdap/Td vaccine (2 - Td or Tdap) [facility] Start: 05-04-2026 DTaP/Tdap/Td Vaccines (2 - Td or Tdap) DTaP/Tdap/Td Vaccines (2 - Td or Tdap) [facility] Start: 05-04-2026 Tetanus vaccination [facility] Start: 05-04-2026 Urine microalbumin profile [facility] Start: 01-07-2026 HPV TESTING HPV TESTING [facility] Start: 01-07-2026 PAP TESTING PAP TESTING [facility] Start: 01-07-2026 Screening for malignant neoplasm of cervix [facility] Start: 02-03-2025 Influenza vaccination Influenza Vaccine (Season Ended) [facility] Start: 09-10-2024 End: 09-10-2024 ambulatory 09/10/2024 2:00 PM EDT Procedure OB/Gynecology [address] [place] [address] Remote, Yard Laborer [facility] [address] [place] [address] Uterine cyst [N85.8]; Adenomyosis of uterus [N80.03] OB/Gynecology Comment on above: Uterine cyst [N85.8]; Adenomyosis of kenaitze lizzy [N80.03] Start: 09-09-2024 End: 09-09-2024 Patient encounter procedure 09/09/2024 12:40 PM EDT Office Visit Family Odilia Vogel [address] [place] [address] Davide Chao MD [address] [place] [id number] 3 month follow up Family Odilia Vogel Comment on above: 3 month follow up Start: 09-05-2024 End: 09-05-2025 US Pelvis PELVIC US [facility] Anc Imaging Routine Uterine cyst Adenomyosis of uterus Expected: 09/05/2024, Expires: 09/05/2025 [facility] Work Phone: Comment on above: Expected: 09/05/2024, Expires: 6 Start: 08-15-2024 End: 11-14-2024 Folate [Mass/volume] in Serum or Plasma FOLATE, SERUM Lab Routine Fatigue, unspecified type Expected: 08/15/2024, Expires: 11/14/2024 [facility] Comment on above: Expected: 08/15/2024, Expires: 5 Start: 08-15-2024 End: 11-14-2024 Iron and Iron binding capacity panel - Serum or Plasma IRON AND TIBC Lab Routine Fatigue, unspecified type Expected: 08/15/2024, Expires: 11/14/2024 [facility] Work Phone: Comment on above: Expected: 08/15/2024, Expires: Start: 03-29-2024 End: 03-29-2024 ambulatory 03/29/2024 11:[address] [facility] [place] [address] [place] [address] Davide Chao MD [address] [place] [address] Chest pain, ER visit-nothing found, can't swallow [facility] [place] Comment on above: Chest pain, ER visit-nothing found, can' t swallow Start: 02-04-2024 Covid-19 Vaccine ( season) Covid-19 Vaccine ( season) [facility] Start: 02-04-2024 Influenza vaccination Influenza Vaccine (#1) [facility] Start: 10-17-2023 End: 01-16-2024 Basic metabolic 2000 panel - Serum or Plasma [facility] Work Phone: Comment on above: Expected: 10/17/2023, Expires: 4 Start: 10-17-2023 End: 01-16-2024 Thyrotropin [Units/volume] in Serum or Plasma [facility] Comment on above: Expected: 10/17/2023, Expires: Start: 10-03-2023 Patient discharge [facility] Start: 10-03-2023 Procedure discontinued [facility] Start: 10-03-2023 Ambulation without limitation [facility] Start: 10-03-2023 Medical regimen orders management [facility] Start: 10-03-2023 Medication education [facility] Start: 10-03-2023 Taking patient vital signs [facility] Start: 10-03-2023 Vital signs measurements [facility] Start: 10-03-2023 [facility] Start: 06-28-2023 Assay of thyroid stimulating hormone tsh ASSAY THYROID STIM HORMONE [facility] Start: 06-28-2023 Blood count complete auto&auto difrntl wbc COMPLETE CBC W/AUTO DIFF WBC [facility] Start: 06-28-2023 Collection venous blood venipuncture ROUTINE VENIPUNCTURE [facility] Start: 06-19-2023 End: 06-19-2023 Patient encounter procedure 06/19/2023 1:00 PM EST Office Visit [facility] [address] [place] [address], [place] [address] Alina Alvarado MD [address] [place] [address] [facility] Start: 06-09-2023 End: 06-09-2023 Patient encounter procedure 06/09/2023 1:00 PM EST Appointment [facility] [address] [place] [address] Alina Alvarado MD [address] [place] [address] [facility] Start: 06-06-2023 End: 06-06-2023 Patient encounter procedure 06/06/2023 1:45 PM EST Office Visit [facility] [address] [place] [address] Alina Alvarado MD [address] [place] [address] [facility] Start: 03-28-2023 End: 06-27-2023 CBC panel - Blood by Automated count CBC Lab Routine Anemia, unspecified type Expected: 03/28/2023, Expires: 06/27/2023 [facility] Work Phone: Comment on above: Expected: 03/28/2023, Expires: 4 Start: 03-28-2023 End: 06-27-2023 Comprehensive metabolic 2000 panel - Serum or Plasma COMP METABOLIC PANEL Lab Routine Anemia, unspecified type Elevated liver function tests Expected: 03/28/2023 (Approximate), Expires: 06/27/2023 [facility] Work Phone: Comment on above: Expected: 03/28/2023 (Approximate), Expi res: 06/27/2023 Start: 03-28-2023 End: 06-27-2023 Natriuretic peptide.B prohormone N-Terminal [Mass/volume] in Serum or Plasma NT PRO BNP Lab Routine Bilateral leg edema Anemia, unspecified type Elevated liver function tests Expected: 03/28/2023, Expires: 06/27/2023 [facility] Work Phone: Comment on above: Expected: 03/28/2023, Expires: 4 Start: 03-18-2023 Vital signs measurements [facility] Start: 03-18-2023 End: 03-18-2023 [facility] Start: 03-18-2023 Patient discharge [facility] Start: 03-11-2023 Patient discharge [facility] Start: 03-10-2023 Administration of blood product [facility] Start: 03-10-2023 Administration of medication [facility] Start: 03-10-2023 Application of ice collar, cap or bag [facility] Start: 03-10-2023 Catheterization of vein [facility] Start: 03-10-2023 Introduction of urinary catheter [facility] Start: 03-10-2023 Measuring intake and output [facility] Start: 03-10-2023 Notification of physician [facility] Start: 03-10-2023 Procedure discontinued [facility] Start: 03-10-2023 Provision of activity privileges [facility] Start: 03-10-2023 Vital signs measurements [facility] Start: 03-10-2023 [facility] Start: 03-10-2023 Consultation [facility] Start: 03-09-2023 Admission procedure [facility] Start: 03-08-2023 monitoring labor phys written report MONITOR W/REPORT [facility] Start: 03-08-2023 nonstress test NON-STRESS TEST [facility] Start: 03-08-2023 Urnls dip stick/tablet reagent auto microscopy URINALYSIS AUTO W/SCOPE [facility] Start: 03-08-2023 Nonstress test [facility] Start: 03-08-2023 Obstetric monitoring [facility] Start: 03-08-2023 Vital signs measurements [facility] Start: 03-08-2023 [facility] Start: 03-08-2023 Patient discharge [facility] Start: 03-04-2023 [facility] Start: 03-04-2023 Nonstress test [facility] Start: 03-04-2023 Biophysical profile panel US [facility] Start: 03-04-2023 Ultrasonography for biophysical profile without non-stress testing Biophysical Prof W/O Non Stres [facility] Start: 03-04-2023 Obstetric monitoring [facility] Start: 03-04-2023 Vital signs measurements [facility] Start: 03-04-2023 [facility] Start: 03-04-2023 Patient discharge [facility] Start: 03-04-2023 [facility] Start: 03-01-2023 Nonstress test [facility] Start: 03-01-2023 Obstetric monitoring [facility] Start: 03-01-2023 Vital signs measurements [facility] Start: 03-01-2023 [facility] Start: 02-18-2023 Genital Culture Genital Culture [facility] Start: 02-18-2023 Microscopic observation [Identifier] in Unspecified specimen by Gram stain Gram Stain [facility] Start: 02-18-2023 Source specific culture [facility] Start: 02-18-2023 Procedure [facility] Start: 02-18-2023 Administration of blood product [facility] Start: 02-18-2023 Nonstress test [facility] Start: 02-18-2023 Obstetric monitoring [facility] Start: 02-18-2023 Vital signs measurements [facility] Start: 02-18-2023 [facility] Start: 02-18-2023 Chlamydia deoxyribonucleic acid detection [facility] Start: 02-18-2023 Patient discharge [facility] Start: 02-03-2023 Covid-19 Vaccine () Covid-19 Vaccine () [facility] Start: 02-03-2023 Influenza vaccination [facility] Start: 01-30-2023 Nonstress test [facility] Start: 01-30-2023 Obstetric monitoring [facility] Start: 01-30-2023 Vital signs measurements [facility] Start: 01-30-2023 [facility] Start: 01-30-2023 Patient discharge [facility] Start: 01-24-2023 [facility] Start: 01-23-2023 Troponin I measurement [facility] Start: 01-23-2023 [facility] Start: 01-16-2023 Following clinical pathway protocol [facility] Start: 01-16-2023 Iv infusion hydration initial 31 min-1 hour HYDRATION IV INFUSION INIT [facility] Start: 12-21-2022 Patient referral [facility] Work Phone: Start: 11-25-2022 Patient referral [facility] Work Phone: Start: 11-17-2022 OLIVER, Provider: Sylvia Calle, Status: Pen, Time: 11:30 AM OLIVER, Provider: Sylvia Calle, Status: Pen, Time: 11:30 AM [facility] Work Phone: Start: 11-15-2022 AQUATICFU4, Provider: Katalina Roach, Status: Pen, Time: 11:30 AM [facility]QUATICFU4, Provider: Katalina Roach, Status: Pen, Time: 11:30 AM [facility] Work Phone: Start: 11-10-2022 AQUATICFU4, Provider: Katalina Roach, Status: Pen, Time: 11:30 AM [facility], Provider: Katalina Roach, Status: Pen, Time: 11:30 AM [facility] Work Phone: Start: 11-08-2022 AQUATICFU4, Provider: Katalina Roach, Status: Pen, Time: 11:30 AM [facility], Provider: Katalina Roach, Status: Pen, Time: 11:30 AM [facility] Work Phone: Start: 10-28-2022 Patient referral [facility] Work Phone: Start: 08-17-2022 Liquid based cervical cytology screening [facility] Start: 02-15-2022 Patient encounter procedure ANNUAL, Provider: Andry Rueda, Status: Pen, Time: 11:00 AM [employer] Work Phone: Start: 02-03-2022 Influenza vaccination [facility] Start: 01-03-2022 Influenza vaccination Flu vaccine (#1) [facility] Start: 11-16-2021 Patient encounter procedure [facility] Start: 11-16-2021 PPV, Provider: Andry Rueda, Status: Pen, Time: 2:00 PM PPV, Provider: Andry Rueda, Status: Pen, Time: 2:00 PM [employer] Work Phone: Start: 10-12-2021 End: 10-13-2022 [facility] Comment on above: Consult provider prior to administration . Push over more than 2 minutes. Systolic greater than or equal to 160 OR Diastolic greater than or equal to 110. Contraindications: active asthma, heart disease, heart failure, maternal bradycardia < 60. Consult provider amol or to administration. Push over more than 2 minutes. Systolic greater than or equal to 160 OR Diastolic greater than or equal to 110. Contraindication: coronary artery disease (CAD); Caution in suspected CAD. Consult provider amol or to administration. Systolic greater than or equal to 160 OR Diastolic greater than or equal to 110. Capsules administered orally and swallowed whole; Do not puncture or crush; Do not administer sublingually. May self-administer after voiding administer if patien t screen is non- immune or equivocal After and PRN Consult provider amol or to administration. Conditional order. C onsult Provider prior to administration. Max dose of 16mg / 2 4 hours Conditional order. 6 00 milliunits/min x 30 mins., then 60 milliunits/min for the remainder of the bag. Consult Provider prior to administration. Start: 10-12-2021 End: 10-13-2022 fentaNYL 2 mcg/mL - Bupivacaine 0.0625% PCEA ([facility] ONLY) ; DEMAND/ PCEA Dose = 4BASAL/ Continuous Rate = 10One Hour Dose Limit = 34 mL/hr mL per hourNotes from Pharmacy: [Fentanyl 2 mcg/mL - Bupivacaine 0.0625%] Start: 12-Oct-2021 End: 12-Oct-2022 Ordered: 12-Oct-2021 Osiel Valentin [facility] Start: 10-08-2021 EPVOB, Provider: Andry Rueda, Status: Pen, Time: 10:30 AM EPVOB, Provider: Andry Rueda, Status: Pen, Time: 10:30 AM [employer] Work Phone: Start: 10-01-2021 EPVOB, Provider: Andry Rueda, Status: Pen, Time: 11:15 AM EPVOB, Provider: Andry Rueda, Status: Pen, Time: 11:15 AM [employer] Work Phone: Start: 09-26-2021 Diabetes mellitus screening Diabetes Screening [facility] Start: 09-24-2021 EPVOB, Provider: Anil Panchal, Status: Pen, Time: 11:15 AM EPVOB, Provider: Anil Panchal, Status: Pen, Time: 11:15 AM [employer] Work Phone: Start: 09-17-2021 EPVOB, Provider: Andry Rueda, Status: Pen, Time: 11:30 AM EPVOB, Provider: Andry Rueda, Status: Pen, Time: 11:30 AM [employer] Work Phone: Start: 09-10-2021 EPVOB, Provider: Andry Rueda, Status: Pen, Time: 11:00 AM EPVOB, Provider: Andry Rueda, Status: Pen, Time: 11:00 AM [employer] Work Phone: Start: 08-13-2021 EPVOB, Provider: Andry Rueda, Status: Pen, Time: 9:00 AM EPVOB, Provider: Andry Rueda, Status: Pen, Time: 9:00 AM [employer] Work Phone: Start: 07-30-2021 EPVOB, Provider: Andry Rueda, Status: Pen, Time: 11:15 AM EPVOB, Provider: Andry Rueda, Status: Pen, Time: 11:15 AM [employer] Work Phone: Start: 07-20-2021 End: 07-20-2021 Patient encounter procedure 07/20/2021 Office Visit Cardiology Yuri Ramos MD [address] [place], [place] [id number] [facility] Start: 06-15-2021 Screening for malignant neoplasm of cervix [facility] Start: 05-17-2021 End: 07-18-2022 Echocardiography Echocardiogram complete Echocardiography Routine Palpitations Expected: 05/17/2021, Expires: 07/18/2022 [facility] Work Phone: Comment on above: Expected: 05/17/2021, Expires: 3 Start: 05-17-2021 End: 07-18-2022 Extended Holter Monitor (3-7 days) Extended Holter Monitor (3-7 days) Cardiac Services Routine Palpitations Expected: 05/17/2021, Expires: 07/18/2022 [facility] Comment on above: Expected: 05/17/2021, Expires: 3 Start: 02-03-2021 Influenza vaccination [facility] Start: 2020 Screening for malignant neoplasm of cervix HPV (without or with Pap) [facility] Start: 02-04-2020 Influenza vaccination Sequential Influenza Vaccine (#1) [facility] Start: 02-04-2020 Influenza vaccination given Sequential Influenza Vaccine (#1) [facility] Start: 02-03-2018 Influenza vaccination given SEQUENTIAL INFLUENZA VACCINE (#1) [facility] Start: 2011 Screening for malignant neoplasm of cervix [facility] Start: 2009 Hepatitis A Vaccines (1 of 2 - Risk 2-dose series) Hepatitis A Vaccines (1 of 2 - Risk 2-dose series) [facility] Start: 2009 Hepatitis B Vaccine (1 of 3 - 19+ 3-dose series) Hepatitis B Vaccine (1 of 3 - 19+ 3-dose series) [facility] Start: 2009 Third diphtheria, tetanus and acellular pertussis (DTaP) vaccination TDAP (ADULT) [facility] Start: 2008 Hepatitis C antibody, confirmatory test Hepatitis C Screening [facility] Start: 2008 Hepatitis C screening [facility] Start: 2008 Tetanus vaccination TETANUS [facility] Start: 2006 COVID-19 Vaccine (1 of 2) COVID-19 Vaccine (1 of 2) [facility] Start: 2006 COVID-19 Vaccine (1) COVID-19 Vaccine (1) [facility] Start: 2005 HIV screening [facility] Start: 2002 Adolescent depression screening assessment Depression Screening (PHQ9) [facility] Start: 2002 Depression Screen Depression Screen [facility] Start: 2002 Depression screening using PHQ-9 (Patient Health Questionnaire 9) score [facility] Start: 1995 COVID-19 Vaccine (#1) COVID-19 Vaccine (#1) [facility] Start: 1995 COVID-19 Vaccine (1) COVID-19 Vaccine (1) [facility] Start: 1993 History and physical examination, annual for health maintenance Wellness Visit [facility] Start: 1991 MMR Vaccines (1 of 1 - Standard series) MMR Vaccines (1 of 1 - Standard series) [facility] Start: 1991 Varicella vaccination Varicella Vaccines (1 of 2 - 2-dose childhood series) [facility] Start: 1991 Varicella vaccine (1 of 2 - 2-dose childhood series) Varicella vaccine (1 of 2 - 2-dose childhood series) [facility] Start: 1990 COVID-19 VACCINE (#1) COVID-19 VACCINE (#1) [facility] Start: 1990 HEPATITIS B (1 of 3 - 3-dose series) HEPATITIS B (1 of 3 - 3-dose series) [facility] Start: 1990 Hepatitis B vaccination HEP B VACCINE (1 of 3 - 3-dose series) [facility] Start: 1990 Hepatitis B Vaccine (1 of 3 - 3-dose series) Hepatitis B Vaccine (1 of 3 - 3-dose series) [facility] Start: 1990 Hepatitis B Vaccines (1 of 3 - 3-dose series) Hepatitis B Vaccines (1 of 3 - 3-dose series) [facility] Start: 1990 Hepatitis C antibody, confirmatory test HEPATITIS C VIRUS SCREENING [facility] Start: 1990 Hepatitis C screening HEPATITIS C VIRUS SCREENING [facility] Start: 1990 HIV screening HIV Screening [facility] Start: 1990 Lipid panel Lipid Panel [facility] Start: 1990 Screening for malignant neoplasm of cervix PAP SMEAR [facility] Start: 1990 Tetanus vaccination TETANUS EVERY 10 YR [facility] Start: 1990 Yearly Adult Physical Yearly Adult Physical [facility] End: 03-13-2023 Bacteria identified in Urine by Culture [facility] Work Phone: Comment on above: Once (Lab) for 1 Occurrences starting until 03/13/2023 End: 06-07-2023 Bacteria identified in Urine by Culture Urine Culture Microbiology Routine Once (Lab) for 1 Occurrences starting 06/07/2023 until 06/07/2023 [facility] Work Phone: Comment on above: Once (Lab) for 1 Occurrences starting until 06/07/2023 Bacteria identified in Urine by Culture Urine Culture Microbiology Routine 06/06/2023 11:41 PM EST [facility] Work Phone: End: 06-06-2023 Blood type and Indirect antibody screen panel - Blood [facility] Service Area Work Phone: Comment on above: Once (Lab) for 1 Occurrences starting until 06/06/2023 CBC W Auto Different ial panel - Blood [facility] Creatinine [Mass/vol ume] in Urine collected for unspecified duration [facility] End: 03-13-2023 Extra Urine Gilbert Tube [facility] Work Phone: Comment on above: Once for 1 Occurrences starting 03/13/20 23 until 03/13/2023, 1 completed End: 06-06-2023 Extra Urine Gilbert Tube [facility] Work Phone: Comment on above: Once for 1 Occurrences starting 06/06/19 24 until 06/06/2023 Biophysical pr ofile panel US [facility] Genital microscopy, culture and sensitivities [facility] Hepatitis B surface antigen measurement [facility] Hepatitis C antibody measurement [facility] HIV 1+2 Ab+HIV1 p24 Ag [Presence] in Serum or Plasma by Immunoassay [facility] HOLTER MONITOR - [place] G TERM HOLTER MONITOR - HOME APPLIANCE TECH ECG Routine Tachycardia Near syncope Dizziness and giddiness Ordered: 10/20/2022 [facility] Comment on above: Ordered: 10/20/2022 End: 05-31-2023 HOLTER MONITOR - HOME APPLIANCE TECH HOLTER MONITOR - USP ECG Routine Near syncope Tachycardia 1 Occurrences starting 05/31/2023 until 05/31/2023 [facility] Comment on above: 1 Occurrences starting 05/31/2023 until 05/31/2023 Neisseria gonorrhoea e rRNA [Presence] in Unspecified specimen by MAYTE with probe detection [facility] Path report.final Dx Spec [facility] Patient Education [facility] Work Phone: Patient referral [facility] Work Phone: PCR test for Chlamyd ia trachomatis [facility] Procedure [facility] Protein [Mass/volume ] in Urine [facility] Protein/Creatinine [ Mass Ratio] in Urine [facility] Protein/Creatinine [Ratio] in Urine [facility] Rubella IgG measurement [facility] Treponema sp Ab [Presence] in Serum [facility] End: 03-13-2023 Urinalysis complete W Reflex Culture panel - Urine [facility] Service Area Work Phone: Comment on above: Once (Lab) for 1 Occurrences starting until 03/13/2023 End: 06-06-2023 Urinalysis complete W Reflex Culture panel - Urine [facility] Work Phone: Comment on above: Once (Lab) for 1 Occurrences starting until 06/06/2023 [facility] Immunizations Immunization Date Immunization Notes Care Provider [facility] 08-03-2023 influenza virus vaccine, unspecified formulation Davide Chao MD Work Phone: [facility] 06-17-2019 influenza virus vaccine, unspecified formulation Davide Chao MD Work Phone: [facility] 05-04-2016 RHO(D) immune globulin- IV or IM [facility] Provider [facility] Work Phone: 05-04-2016 tetanus toxoid, reduced diphtheria toxoid, and acellular pertussis vaccine, adsorbed [facility] Provider [facility] Work Phone: 03-23-2016 influenza, injectabl e, quadrivalent, contains preservative [facility] Provider [facility] 03-23-2016 influenza virus vaccine, unspecified formulation Gallito Couch MD Work Phone: [facility] 06-14-2013 influenza virus vaccine, unspecified formulation [facility] Provider [facility] 04-25-2012 RHO(D) immune globulin- IV or IM [facility] Provider [facility] Work Phone: 04-05-2012 influenza virus vaccine, whole virus [facility] Provider [facility] 06-22-2010 RHO(D) immune globulin- IV or IM [facility] Provider [facility] Payers Date Payer Category Payer Self-pay [id number] 2017 Unknown 2014 Medicaid [facility] xxxxxxxxxxx 2014-Present [id number] 2014 Medicaid [id number]. [id number] 2014 Medicaid [id number]. 1.13.385.2.7.3. [id number] 2014 Unknown [id number] 2014 Unknown [id number] 1.2.840.073641.1.13.239.2.7.3. [id number] 1990 Unknown [id number] 2.16.840.1.118882.3.579.2.278 1990 Unknown [id number] 2.16.840.1.745287.3.579.2.278 1990 Unknown [id number] 2.16.840.1.594531.3.579.2.668 1990 Unknown [id number] 2.16.840.1.620394.3.579.2.668 1990 Unknown [id number] 2.16.840.1.875487.3.579.2.903 1990 Unknown [id number] 2.16.840.1.586861.3.579.2.903 1990 Unknown [id number] 2.16.840.1.978535.3.579.2.903 1990 Unknown [id number] 2.16.840.1.629912.3.579.2.903 1990 Unknown [id number] 2.16.840.1.351831.3.579.2.903 1990 Unknown [id number] 2.16.840.1.613612.3.579.2.903 1990 Unknown [id number] 2.16.840.1.522178.3.579.2.903 1990 Unknown [id number] 2.16.840.1.027905.3.579.2.732 1990 Unknown [id number] 2.16.840.1.692953.3.579.2.903 1990 Unknown [id number] 2.16.840.1.675572.3.579.2.174 1990 Unknown [id number] 2.16.840.1.529301.3.579.2.174 1990 Unknown [id number] 2.16.840.1.635562.3.579.2.174 1990 Unknown [id number] 2.16.840.1.012401.3.579.2.174 1990 Unknown [id number] 2.16.840.1.803504.3.579.2.174 1990 Unknown [id number] 2.16.840.1.191689.3.579.2.903 1990 Unknown [id number] 2.16.840.1.254962.3.579.2.903 1990 Unknown [id number] 2.16.840.1.002834.3.579.2.356 1990 Unknown [id number] 2.16.840.1.015875.3.579.2.356 1990 Unknown [id number] 2.16.840.1.809663.3.579.2.356 1990 Unknown [id number] 2.16.840.1.951887.3.579.2.356 1990 Unknown [id number] 2.16.840.1.280968.3.579.2.356 1990 Unknown [id number] 2.16.840.1.057073.3.579.2.356 1990 Unknown [id number] 2.16.840.1.892071.3.579.2.356 1990 Unknown [id number] 2.16.840.1.831880.3.579.2.356 1990 Unknown [id number] 2.16.840.1.518742.3.579.2.356 1990 Unknown [id number] 2.16.840.1.509969.3.579.2.479 1990 Unknown [id number] 2.16.840.1.281617.3.579.2.1068 1990 Unknown [id number] 2.16.840.1.493263.3.579.2.1068 1990 Unknown [id number] 2.16.840.1.609468.3.579.2.1068 1990 Unknown [id number] 2.16.840.1.329535.3.579.2.1068 1990 Unknown [id number] 2.16.840.1.483507.3.579.2.1068 1990 Unknown [id number] 2.16.840.1.648524.3.579.2.1068 1990 Unknown [id number] 2.16.840.1.444258.3.579.2.1068 1990 Unknown [id number] 2.16.840.1.831095.3.579.2.98 1990 Unknown [id number] 2.16.840.1.579687.3.579.2. 1990 Unknown [id number] 2.16.840.1.517535.3.579.2.983 1990 Unknown [id number] 2.16.840.1.020288.3.579.2.98 1990 Unknown [id number] 2.16.840.1.704957.3.579.2.1243 1990 Unknown [id number] 2.16.840.1.955976.3.579.2.1243 1990 Unknown [id number] 2.16.840.1.531571.3.579.2.1243 1990 Unknown [id number] 2.16.840.1.877416.3.579.2.651 1990 Unknown [id number] 2.16.840.1.424772.3.579.2.651 1990 Unknown [id number] 2.16.840.1.818279.3.579.2.627 1990 Unknown [id number] 2.16.840.1.700173.3.579.2.983 Unknown [id number] 2.16.840.1.096612.3.579.2.462 Unknown [id number] 2.16.840.1.402196.3.579.2.462 Unknown [id number] 2.16.840.1.684318.3.579.2.462 Unknown [id number] 2.16.840.1.114855.3.579.2.462 Unknown [id number] 2.16.840.1.537097.3.579.2.462 Unknown [id number] 2.16.840.1.819857.3.579.2.462 Unknown [id number] 2.16.840.1.648994.3.579.2.462 Unknown [id number] 2.16.840.1.179496.3.579.2.462 Unknown [id number] 2.16.840.1.359094.3.579.2.462 Unknown [id number] 2.16.840.1.714272.3.579.2.462 Unknown [id number] 2.16.840.1.237721.3.579.2.462 Social History Date Type Detail Facility Start: 09-01-2018 End: 04-17-2024 Tobacco smoking status MDIS Current every day smoker [facility] Start: 01-23-2004 End: 01-24-2021 History of tobacco use Cigarette Smoker [facility] Start: 09-01-2018 End: 11-03-2023 Cigarettes smoked current (pack per day) - Reported [facility] Start: 1990 Sex Assigned At Not on file O [facility] Start: 09-01-2018 Alcohol intake Not Asked [facility] Start: 07-29-2022 End: 09-21-2023 Tobacco smoking consumption unknown [facility] Start: 11-11-2021 End: 06-07-2023 Exposure to SARS-CoV-2 (event) Not sure [facility] Start: 09-27-2020 End: 06-10-2024 Tobacco use and exposure Never used [facility] Start: 09-27-2020 End: 06-07-2023 Alcohol intake Lifetime non-drinker (finding) [facility] Start: 09-27-2020 End: 06-21-2022 History SDOH Alcohol Frequency 1 [facility] Start: 05-17-2021 End: 06-10-2024 Tobacco smoking status MDIS Ex-smoker [facility] Start: 01-23-2004 End: 01-24-2021 History of tobacco use Current smoker [facility] Start: 06-23-2021 End: 09-05-2024 Alcohol intake Current non-drinker of alcohol (finding) [facility] Start: 11-29-2021 End: 06-21-2022 History SDOH Alcohol Frequency 2 [facility] Start: 11-29-2021 End: 06-21-2022 History SDOH Social Connections Living 8 [facility] Start: 11-29-2021 End: 06-21-2022 History SDOH Physical Activity DPW 0 [facility] Start: 11-29-2021 End: 06-21-2022 History SDOH Stress 4 [facility] Start: 11-29-2021 History SDOH Housing Places Lived 3 [facility] Start: 06-13-2019 Education 21 [facility] Start: 06-21-2022 History SDOH Stress 5 [facility] Start: 09-25-2020 None [facility] Start: 09-25-2020 Cigarettes [facility] Start: 1990 Sex Assigned At Female [facility] Start: 10-20-2022 Tobacco Comment Currently vapes [facility] Start: 06-21-2022 End: 11-03-2023 Social connection and isolation panel [facility] Do you belong to any clubs or organizations such as evangelical groups, [employer], [employer] or [employer]le[employer] groups, or school groups? No [facility] Are you now , , , , never or living with a partner? Living with partner [facility] How often to you hav e a drink containing alcohol? Monthly or less [facility] How many standard drinks containing alcohol do you have on a typical day? 1 or 2 [facility] How often do you hav e 6 or more drinks on 1 occasion? Never [facility] How hard is it for y ou to pay for the very basics like food, housing, medical care, and heating Not very hard [facility] Adult Depression Screening Assessment 3 [facility] Do you feel stress - tense, restless, nervous, or anxious, or unable to sleep at night because your mind is troubled all the time - these days [OSQ] Very much [facility] (I/We) worried lexa er (my/our) food would run out before (I/we) got money to buy more. Never true [facility] Start: 03-13-2023 Tobacco smoking stat us MDIS Never smoked tobacco [facility] Work Phone: Start: 03-13-2023 End: 05-16-2023 Tobacco use and exposure User of smokeless tobacco [facility] Work Phone: Start: 06-23-2017 Gender identity Identifies as female gender (finding) [facility] Do you belong to any clubs or organizations such as evangelical groups, [employer], [employer] or athletic groups, or school groups? Yes [facility] Tobacco Nicotine Use: Va ping Product in Last 90 Days. Type: Electronic Cigarettes (Vaping). [facility] Sex Assigned At Sex [facility] Start: 08-27-2024 End: 08-29-2024 Sex Female (finding) [facility] NEGATED: Highlighted row [facility] Medical Equipment Procedure Code Equipment Code Equipment Origin al Text Equipment Identifier Dates Fallopian tube clip/band ()[id number] FDA Start: 03-10-2023 Goals Date Patient Goal Desired Activity /State Functional Status Date Assessment Result Facility 03-22-2024 Functional Status Up ad krish [facility] 03-22-2024 Functional Status Standard Safet y ID band on, Call device within reach, Bed in low position, Wheels locked [facility] 10-03-2023 Functional status Ambulates;Bath room Privilege [facility] Work Phone: 03-18-2023 Functional status Activity Abili ty Independent [facility] Work Phone: 12-29-2014 Are you deaf, or do you have serious difficulty hearing No 12/29/2014 12:30 PM EDT Bonnie Eduardo LPN No [facility] 12-29-2014 Are you blind, or do you have serious difficulty seeing, even when wearing glasses No 12/29/2014 12:30 PM EDT Bonnie Eduardo LPN No [facility] 12-29-2014 Do you have serious difficulty walking or climbing stairs No 12/29/2014 12:30 PM EDT Bonnie Eduardo LPN No [facility] 12-29-2014 Do you have difficul ty dressing or bathing No 12/29/2014 12:30 PM EDT Bonnie Eduardo LPN No [facility] 12-29-2014 Because of a physica l, mental, or emotional condition, do you have difficulty doing errands alone such as visiting a physician's office or shopping No 12/29/2014 12:30 PM EDT Bonnie Eduardo LPN No [facility] Functional observable [facility] Mental Status Date Assessment Result Facility 03-22-2024 Mental Status Orientation Oriented x 4 [facility] 03-22-2024 [facility] 10-03-2023 Cognitive function Light Pain [facility] Work Phone: 03-10-2023 Cognitive function Level Of Cons ciousness Follows Commands;Drowsy [facility] Work Phone: 01-23-2023 Cognitive function Voice/Name [facility] Work Phone: 10-14-2021 Cognitive functi ons :22 [facility] 12-29-2014 Because of a physica l, mental, or emotional condition, do you have serious difficulty concentrating, remembering, or making decisions No 12/29/2014 12:30 PM EDT Bonnie Eduardo LPN No [facility] Clinical Notes 07-04-2016 to 09-12-2024 Telephone Encounter - Omer Cowan RN - 09/12/2024 9:31 AM EDTTelephone Encounter - Omer Cowan RN - 09/12/2024 9:31 AM EDTLatonia Gray MD - 09/10/2024 11:01 PM EDT Note Date & Type Note Facility 09-12-2024 Telephone encounter Note Faxed US pelvic results to attn: Samara/nurse, [facility], per patient request. [facility] 09-12-2024 Miscellaneous Notes Faxed US pelvic results to attn: Samara/nurse, [facility], per patient request. documented in this encounter [facility] 09-10-2024 Note HNO ID: [id number] Author: LATONIA GRAY MD Service: ? Author Type: Physician Type: Progress Notes Filed: 09/11/2024 23:10 Note Text: The patient presents for requested ultrasound. Full report available in the Imaging tab in Epic. Latonia Gray MD [facility] 09-10-2024 History of Presen t illness Narrative The patient presents for requested ultrasound. Full report available in the Imaging tab in [facility]. Latonia Gray MD documented in this encounter [facility] 09-05-2024 History of Presen t illness Narrative Que Sanchez is a 34 year old female who presents for problem visit 2nd opinion uterine cyst/polyp HPI: Tubal reversal 08/29/2024 in [place] - brings records with her. Was previously told that she had a cyst in her uterus but now sent message on portal from [employer] that she has a uterine polyp that should be removed as it could cause miscarriage. US report as below - indicates cyst. She does have known adenomyosis. She would like second opinion as she does would like to achieve and was told that it was most likely soon after tubal reversal. LMP 09/04/2024 Study: Pelvic w/ Transvaginal Date of Exam: 08/21/24 Exam# [id number] Ordering Dr: Melissa Brasher DO EXAM: US Pelvis Transabdominal and Transvaginal, Complete CLINICAL INDICATION: POSTCOITAL BLEEDING TECHNIQUE: Real-time complete transabdominal and transvaginal pelvic ultrasound with image documentation. Transvaginal imaging was used for better evaluation of the endometrium and adnexa. COMPARISON: No relevant prior studies available. FINDINGS: UTERUS/CERVIX: Multiple uterine fibroids, largest measuring up to 1.8 cm. Apparent anechoic lesion within the endometrium, measuring up to 0.5 cm likely cyst. Fluid within the endometrial canal. The uterus measures 9.1 x 5.6 x 3.8 cm. The endometrial stripe measures 0.8 cm in thickness. RIGHT OVARY: Unremarkable. Normal blood flow. The right ovary measures 4.4 x 4.4 x 1.6 cm. LEFT OVARY: Apparent septated cystic structure shown in the left ovary measuring up to 1.9 cm, likely complex ovarian cysts. Normal blood flow. The left ovary measures 2.4 x 1.8 x 1.7 cm. FREE FLUID: No free fluid. BLADDER: Unremarkable as visualized. Wall is normal thickness for degree of distention. US/Pelvic w/ Transvaginal IMPRESSION: 1. Multiple uterine fibroids, largest measuring up to 1.8 cm. 2. Apparent anechoic lesion within the endometrium, measuring up to 0.5 cm likely cyst. 3. If symptoms persist, further evaluation with MRI is recommended. 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 [employer] History Comments: Sexual Activity: Yes; Male; Nuvaring Contraception: Condom, Inserts PAST MEDICAL HISTORY Diagnosis Date Anemia Anxiety Arrhythmia Bipolar affect, depressed (HCC) Chlamydia 05/2009 DJD (degenerative joint disease) GERD (gastroesophageal reflux disease) 09/18/2015 Herpes simplex virus (HSV) infection HGSIL (high grade squamous intraepithelial lesion) on Pap smear of cervix 2015 History of Helicobacter pylori infection 09/18/2015 IBS (irritable bowel syndrome) 2018 Interstitial cystitis 2018 MVP (mitral valve prolapse) Orthostatic hypotension 09/18/2015 Palpitations Paroxysmal supraventricular tachycardia (HCC) 09/18/2015 depression PVC (premature ventricular contraction) 09/18/2015 Seizure (HCC) Seizures (HCC) Syncope PAST SURGICAL HISTORY Procedure Laterality Date COLONOSCOPY FLX DX W/COLLJ SPEC WHEN PFRMD 11/21/2013 Colonoscopy & EGD COLONOSCOPY FLX DX W/COLLJ SPEC WHEN PFRMD 07/20/2017 Colonoscopy CYSTOSCOPY jul 2018 D&C, DIAG AND/OR THERAPEUTIC N/A 10/03/2023 ESOPHAGOGASTRODUODENOSCOPY TRANSORAL DIAGNOSTIC 07/20/2017 EGD ESOPHAGOGASTRODUODENOSCOPY TRANSORAL DIAGNOSTIC 08/08/2018 EGD LAPAROSCOPY SURG CHOLECYSTECTOMY 09/14/2009 LEEP PROCEDURE ([employer] DEPT)_*[place] 09/09/2015 SVT ABLATION 05/2015 procedure was incomplete and did not work per patient- records requested FAMILY HISTORY Problem Relation Age of Onset Psychiatry Mother Depression Thyroid Mother No Known Problems Father No Known Problems Sister No Known Problems Sister Seizures Sister Multiple Sclerosis Sister No Known Problems Brother No Known Problems Brother No Known Problems Brother Arthritis Maternal Grandmother Arthritis Maternal Grandfather Hypertension Maternal Grandfather Lipids Maternal Grandfather No Known Problems Paternal Grandmother No Known Problems Daughter No Known Problems Daughter No Known Problems Son No Known Problems Son Alcohol/Drug Maternal Uncle Alcohol/Drug Maternal Uncle Alcohol/Drug Maternal Uncle Alcohol/Drug Maternal Uncle Social History Tobacco Use Smoking status: Former Current packs/day: 0.00 Average packs/day: 1 pack/day for 17.0 years (17.0 ttl pk-yrs) Types: Cigarettes Start date: 01/23/2004 Quit date: 01/22/2021 Years since quittin.6 Smokeless tobacco: Never Vaping Use Vaping status: current everyday user Substance Use Topics Alcohol use: No Drug use: No Current Outpatient Medications Medication Sig gabapentin (NEURONTIN) 300 mg capsule Take 1 capsule by mouth three times a day for 90 days. atomoxetine (STRATTERA) 18 mg capsule Take 1 capsule by mouth once daily. propranolol (INDERAL) 40 mg tablet Take 1 tablet by mouth two times a day as needed (panic attacks). pantoprazole DR (PROTONIX) 40 mg tablet Take 1 tablet by mouth daily before breakfast. Take on empty stomach, 1/2 hr before meal. No current facility-administered medications for this visit. Allergies As of Date: 09/05/2024 Allergen Noted Reaction COUGH SYRUP [GUAIFENESIN] 10/30/2018 Other: See Comments FLAGYL [METRONIDAZOLE HCL] 09/26/2018 GI Upset ANTIDEPRESSANTS [TRICYCLIC ANTIDE*08/16/2011 Other: See Comments DOG DANDER 10/25/2018 Other: See Comments LACTOSE 08/20/2018 GI Upset Fully Assessed 08/06/2024 REVIEW OF SYSTEMS Abdomen: minimal post-op Allergies and current medication updated:Yes SENSITIVE EXAM: Sensitive exam not performed. EXAM: BP 104/71 Wt 170 lb (77.1kg) LMP 09/04/2024 GENERAL: pleasant, female in no apparent distress CHEST: Normal inspiratory effort ABDOMEN: healing post-op low abd incision NEURO: alert and oriented x3,exam grossly non-focal ASSESSMENT AND PLAN: Assessment & Plan Uterine cyst Orders: PELVIC US WHI; Future Adenomyosis of uterus Orders: PELVIC US WHI; Future Will notify of results. Follow- up as needed. Marina Snell APRN.EMAIL DESIGNER Medical Decision Making: Problems: Moderate: New problem with uncertain prognosis Data: Unique source(s) for external note(s) reviewed: 2 Unique test result(s) reviewed: 2 Unique test(s) ordered: 1 Medical Decision Making Level: 4 - Moderate documented in this encounter [facility] 09-05-2024 Note HNO ID: [id number] Author: MARINA SNELL APRN.CNP Service: ? Author Type: Nurse Practitioner Type: Progress Notes Filed: 09/05/2024 08:06 Note Text: Que Sanchez is a 34 year old female who presents for problem visit 2nd opinion uterine cyst/polyp HPI: Tubal reversal 08/29/2024 in [place] - brings records with her. Was previously told that she had a cyst in her uterus but now sent message on portal from [employer] that she has a uterine polyp that should be removed as it could cause miscarriage. US report as below - indicates cyst. She does have known adenomyosis. She would like second opinion as she does would like to achieve and was told that it was most likely soon after tubal reversal. LMP 09/04/2024 Study: Pelvic w/ Transvaginal Date of Exam: 08/21/24 Exam# [id number] Ordering Dr: Melissa Brasher DO EXAM: US Pelvis Transabdominal and Transvaginal, Complete CLINICAL INDICATION: POSTCOITAL BLEEDING TECHNIQUE: Real-time complete transabdominal and transvaginal pelvic ultrasound with image documentation. Transvaginal imaging was used for better evaluation of the endometrium and adnexa. COMPARISON: No relevant prior studies available. FINDINGS: UTERUS/CERVIX: Multiple uterine fibroids, largest measuring up to 1.8 cm. Apparent anechoic lesion within the endometrium, measuring up to 0.5 cm likely cyst. Fluid within the endometrial canal. The uterus measures 9.1 x 5.6 x 3.8 cm. The endometrial stripe measures 0.8 cm in thickness. RIGHT OVARY: Unremarkable. Normal blood flow. The right ovary measures 4.4 x 4.4 x 1.6 cm. LEFT OVARY: Apparent septated cystic structure shown in the left ovary measuring up to 1.9 cm, likely complex ovarian cysts. Normal blood flow. The left ovary measures 2.4 x 1.8 x 1.7 cm. FREE FLUID: No free fluid. BLADDER: Unremarkable as visualized. Wall is normal thickness for degree of distention. US/Pelvic w/ Transvaginal IMPRESSION: 1. Multiple uterine fibroids, largest measuring up to 1.8 cm. 2. Apparent anechoic lesion within the endometrium, measuring up to 0.5 cm likely cyst. 3. If symptoms persist, further evaluation with MRI is recommended. 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 [employer] History Comments: Sexual Activity: Yes; Male; Nuvaring Contraception: Condom, Inserts PAST MEDICAL HISTORY Diagnosis Date Anemia Anxiety Arrhythmia Bipolar affect, depressed (HCC) Chlamydia 05/2009 DJD (degenerative joint disease) GERD (gastroesophageal reflux disease) 09/18/2015 Herpes simplex virus (HSV) infection HGSIL (high grade squamous intraepithelial lesion) on Pap smear of cervix 2015 History of Helicobacter pylori infection 09/18/2015 IBS (irritable bowel syndrome) 2018 Interstitial cystitis 2018 MVP (mitral valve prolapse) Orthostatic hypotension 09/18/2015 Palpitations Paroxysmal supraventricular tachycardia (HCC) 09/18/2015 depression PVC (premature ventricular contraction) 09/18/2015 Seizure (HCC) Seizures (HCC) Syncope PAST SURGICAL HISTORY Procedure Laterality Date COLONOSCOPY FLX DX W/COLLJ SPEC WHEN PFRMD 11/21/2013 Colonoscopy AND EGD COLONOSCOPY FLX DX W/COLLJ SPEC WHEN PFRMD 07/20/2017 Colonoscopy CYSTOSCOPY jul 2018 DANDC, DIAG AND/OR THERAPEUTIC N/A 10/03/2023 ESOPHAGOGASTRODUODENOSCOPY TRANSORAL DIAGNOSTIC 07/20/2017 EGD ESOPHAGOGASTRODUODENOSCOPY TRANSORAL DIAGNOSTIC 08/08/2018 EGD LAPAROSCOPY SURG CHOLECYSTECTOMY 09/14/2009 LEEP PROCEDURE ([employer] DEPT)_*FL 09/09/2015 SVT ABLATION 05/2015 procedure was incomplete and did not work per patient- records requested FAMILY HISTORY Problem Relation Age of Onset Psychiatry Mother Depression Thyroid Mother No Known Problems Father No Known Problems Sister No Known Problems Sister Seizures Sister Multiple Sclerosis Sister No Known Problems Brother No Known Problems Brother No Known Problems Brother Arthritis Maternal Grandmother Arthritis Maternal Grandfather Hypertension Maternal Grandfather Lipids Maternal Grandfather No Known Problems Paternal Grandmother No Known Problems Daughter No Known Problems Daughter No Known Problems Son No Known Problems Son Alcohol/Drug Maternal Uncle Alcohol/Drug Maternal Uncle Alcohol/Drug Maternal Uncle Alcohol/Drug Maternal Uncle Social History Tobacco Use Smoking status: Former Current packs/day: 0.00 Average packs/day: 1 pack/day for 17.0 years (17.0 ttl pk-yrs) Types: Cigarettes Start date: 01/23/2004 Quit date: 01/22/2021 Years since quittin.6 Smokeless tobacco: Never Vaping Use Vaping status: current everyday user Substance Use Topics Alcohol use: No Drug use: No Current Outpatient Medications Medication Sig gabapentin (NEURO (more content not included)... [facility] 08-21-2024 Radiology Diagnostic study note [facility] Imaging Services [address] [place] [address] Pelvic w/ Transvaginal MR#: [id number] Acct: [id number] Name: QUE SANCHEZ Rep #: [id number] : 1990 F 34 From: Alicja Pearson MD PCP: Dr. Davide Chao MD Status: RE G CLI Study:Pelvic w/ Transvaginal Date of Exam: 08/21/24 Exam# [id number] Ordering Dr: Melissa Mcneill DO EXAM: US Pelvis Transabdominal and Transvaginal, Complete CLINICAL INDICATION: POSTCOITAL BLEEDING TECHNIQUE: Real-time complete transabdominal and transvaginal pelvic ultrasoundwith image documentation. Transvaginal imaging was used for better evaluation of the endometrium and adnexa. COMPARISON: No relevant prior studies available. FINDINGS: UTERUS/CERVIX: Multiple uterine fibroids, largest measuring up to 1.8 cm. Apparent anechoic lesion within the endometrium, measuring up to 0.5 cm likely cyst. Fluid within the endometrial canal. The uterus measures 9.1 x 5.6 x 3.8 cm. The endometrial stripe measures 0.8 cm in thickness. RIGHT OVARY: Unremarkable. Normal blood flow. The right ovary measures 4.4 x 4.4 x 1.6 cm. LEFT OVARY: Apparent septated cystic structure shown in the left ovary measuring up to 1.9 cm, likely complex ovarian cysts. Normal blood flow. The left ovary measures 2.4 x 1.8 x 1.7 cm. FREE FLUID: No free fluid. BLADDER: Unremarkable as visualized. Wall is normal thickness for degree of distention. US/Pelvic w/ Transvaginal IMPRESSION: 1. Multiple uterine fibroids, largest measuring up to 1.8 cm. 2. Apparent anechoic lesion within the endometrium, measuring up to 0.5 cm likely cyst. 3. If symptoms persist, further evaluation with MRI is recommended. Reading Location: [facility] CC: Dr. Melissa Brasher DO; Dr. Davide Chao MD ~ Icer Hand: Signed [facility] 08-19-2024 Note [facility] Pap Smear Specimen Adequacy August 19, 2024 11:59pm Comment . Satisfactory for evaluation. Endocervical and/or squamous metaplasticcells (endocervical component) are present. Comment on above: Satisfactory for rowan luation. Endocervical and/or squamous metaplasticcells (endocervical component) are present. 08-19-2024 Note [facility] Pap Smear Specimen Adequacy August 19, 2024 11:59pm Comment . Satisfactory for evaluation. Endocervical and/or squamous metaplasticcells (endocervical component) are present. Comment on above: Satisfactory for rowan luation. Endocervical and/or squamous metaplasticcells (endocervical component) are present. 08-19-2024 Evaluation note Diagnosis Onset Date Resolution Postcoital bleeding acute August 19, 2024 2:42pm [facility] Work Phone: [phone] 270-441603-13-2025 Telephone encounter Note* Telephone Encounter - Candice Turpin RN - 08/15/2024 4:10 PM EDT Pt called and is notified of providers results and instructions. Pt voices understanding. Candice Turpin RN [facility]03-13-2025 Miscellaneous Notes* Telephone Encounter - Candice Turpin RN - 08/15/2024 4:10 PM EDT Pt called and is notified of providers results and instructions. Pt voices understanding. Candice Turpin RN * Telephone Encounter - Davide Chao MD - 08/15/2024 2:52 PM EDT Her blood work all looked good; her glucose was just slightly high. Her blood count was normal, theAbsolute nRBC count is not a significant abnormality; the hemoglobin and hematocrit are the tests used to evaluate for anemia, and these are normal.. It is OK to check iron and folate levels. Davide Chao MD * Telephone Encounter - Mamie Paul RN - 08/14/2024 3:32 PM EDT patient is calling in requesting results of lab work the was completed on 08/12. patient is also asking if she can get an order for iron and folic acid levels to be checked also. please review and advise patient needs called with information [facility] Telephone encounter Note * Telephone Encounter - Davide Chao MD - 08/15/2024 2:52 PM EDT Her blood work all looked good; her glucose was just slightly high. Her blood count was normal, theAbsolute nRBC count is not a significant abnormality; the hemoglobin and hematocrit are the tests used to evaluate for anemia, and these are normal.. It is OK to check iron and folate levels. Davide Chao MD [facility]03-12-2025 Telephone encounter Note* Telephone Encounter - Mamie Paul RN - 08/14/2024 3:32 PM EDT patient is calling in requesting results of lab work the was completed on 08/12. patient is also asking if she can get an order for iron and folic acid levels to be checked also. please review and advise patient needs called with information [facility]03-10-2025 Telephone encounter Note* Telephone Encounter - Vera Lewis MA - 08/12/2024 4:36 PM EDT See Recommend message. Not sure what this is. Wanted to follow up. Online it says I could be anemic or have low oxygen? Other tests are normal. I've been having issues with my breathing for about a week or so, but my meters never read below 96. Probably from vaping. Just wanted to check with you ! [facility]03-10-2025 Miscellaneous Notes* Telephone Encounter - Vera Lewis MA - 08/12/2024 4:36 PM EDT See Recommend message. Not sure what this is. Wanted to follow up. Online it says I could be anemic or have low oxygen? Other tests are normal. I've been having issues with my breathing for about a week or so, but my meters never read below 96. Probably from vaping. Just wanted to check with you ! [facility] History of Present illness Narrative* Davide Chao MD - 08/06/2024 3:20 PM EST Chief Complaint Patient presents with: Blood Pressure Medication Follow-up HPI:This Team Access Model visit is a virtual encounter. It required patient- provider interaction for the medical decision making as documented below. Patient was offered a virtual/telemedicine appointment in lieu of an office visit due to recommendations to reduce patient exposure to COVID-19. Patient is aware of limitations of performing the visit without a face to face visit in the office setting and agrees. Pt completing a virtual visit today for a medication follow up. I have communicated my name and active licensure. The patient's identity and physical location wereverified at the time of this visit. Either the patient or their legal underwriting sales representative has been informed of the risks and benefits of -- and alternatives to -- treatment through a remote evaluation andconsents to proceed with the evaluation remotely. Pt sent in a [employer] message back on 07/29/24 asking for a full blood work up due to having reverse tubal surgery in the next couple months. She wanted to make sure everything was normal with kidney, liver, and heart. Lab orders have been placed. PRINT FINISHER placed orders for other testing. Main concern today is asking about going back on Gabapentin due to BP spiking. Woke up with elevated BP. Whenever she's had this evaluated in the past they've been unable to find anything wrong. Has bene evaluated by Cardiology in the past, was given metoprolol but this did not help and made her tired. Anxiety/Moods - At last visit pt reported increased anxiety and panic attacks. Has tried several SSRI medications, but were unable to take them due to causing suicidal thoughts. Pt has a licensed Counselor and works with her. Also has a Building Custodian, which she feels the Building Custodian is more helpful. Was started on Strattera 40 mg at previous visit and Propranolol 40 mg 1 tab po bid. Did not tolerate the Strattera 40 mg, so this was reduced to 18 mg. Doing much better on this dosage and this has helped her anxiety as well. Using Ativan infrequently. Doesn't really like the Propranolol much. ADHD - At previous visit pt reported not being able to focus on more than one thing at a time. Feels someone could be talking to her, but she doesn't hear them, due to not being focused. She seems tobelieve this started happening after the trauma she went through a year ago. Pt reports a hx of ADHD, but never had issues likes this previously. Was started on Strattera 18 mg once daily. Feels thatshe is doing well on this dosage. Did not like 40 mg, didn't tolerate it well. Past medical history, appointments, medications, allergies reviewed. Previous Medical History PAST MEDICAL HISTORY Diagnosis Date Anemia Anxiety Arrhythmia Bipolar affect, depressed (HCC) Chlamydia 05/2009 DJD (degenerative joint disease) GERD (gastroesophageal reflux disease) 09/18/2015 Herpes simplex virus (HSV) infection HGSIL (high grade squamous intraepithelial lesion) on Pap smear of cervix 2015 History of Helicobacter pylori infection 09/18/2015 IBS (irritable bowel syndrome) 2017 Interstitial cystitis 2018 MVP (mitral valve prolapse) Orthostatic hypotension 09/18/2015 Palpitations Paroxysmal supraventricular tachycardia (HCC) 09/18/2015 depression PVC (premature ventricular contraction) 09/18/2015 Seizure (HCC) Seizures (HCC) Syncope Previous Surgical History PAST SURGICAL HISTORY Procedure Laterality Date COLONOSCOPY FLX DX W/COLLJ SPEC WHEN PFRMD 11/21/2013 Colonoscopy & EGD COLONOSCOPY FLX DX W/COLLJ SPEC WHEN PFRMD 07/20/2017 Colonoscopy CYSTOSCOPY jul 2018 D&C, DIAG AND/OR THERAPEUTIC N/A 10/03/2023 ESOPHAGOGASTRODUODENOSCOPY TRANSORAL DIAGNOSTIC 07/20/2017 EGD ESOPHAGOGASTRODUODENOSCOPY TRANSORAL DIAGNOSTIC 08/08/2018 EGD LAPAROSCOPY SURG CHOLECYSTECTOMY 09/14/2009 LEEP PROCEDURE ([employer]ISH[employer] DEPT)_*FL 09/09/2015 SVT ABLATION 05/2015 procedure was incomplete and did not work per patient- records requested Family History FAMILY HISTORY Problem Relation Age of Onset Psychiatry Mother Depression Thyroid Mother No Known Problems Father No Known Problems Sister No Known Problems Sister Seizures Sister Multiple Sclerosis Sister No Known Problems Brother No Known Problems Brother No Known Problems Brother Arthritis Maternal Grandmother Arthritis Maternal Grandfather Hypertension Maternal Grandfather Lipids Maternal Grandfather No Known Problems Paternal Grandmother No Known Problems Daughter No Known Problems Daughter No Known Problems Son No Known Problems Son Alcohol/Drug Maternal Uncle Alcohol/Drug Maternal Uncle Alcohol/Drug Maternal Uncle Alcohol/Drug Maternal Uncle Patient Allergies ALLERGIES Allergen Reactions Cough Syrup [Guaife* Other: See Comments Messes with heart rate/beat Flagyl [Metronidazo* GI Upset nausea, vomiting and cold sweats lightheaded like going to pass out. Antidepressants [Tr* Other: See Comments Suicidal thoughts Dog Dander Other: See Comments Positive allergy skin test Lactose GI Upset Current Medications Current Outpatient Medications on File Prior to Visit Medication Sig atomoxetine (STRATTERA) 18 mg capsule Take 1 capsule by mouth once daily. propranolol (INDERAL) 40 mg tablet Take 1 tablet by mouth two times a day as needed (panic attacks). atomoxetine (STRATTERA) 40 mg capsule Take 1 capsule by mouth once daily. pantoprazole DR (PROTONIX) 40 mg tablet Take 1 tablet by mouth daily before breakfast. Take on empty stomach, 1/2 hr before meal. No current facility-administered medications on file prior to visit. Social History Social History Tobacco Use Smoking status: Former Current packs/day: 0.00 Average packs/day: 1 pack/day for 17.0 years (17.0 ttl pk-yrs) Types: Cigarettes Start date: 01/23/2004 Quit date: 01/22/2021 Years since quittin.5 Smokeless tobacco: Never Vaping Use Vaping status: current everyday user Substance Use Topics Alcohol use: No Drug use: No EXAM: LMP 10/03/2023 (Approximate) General Appearance: Well appearing, alert, in no acute distress, well-hydrated, well nourished.. Health Maintenance List Hepatitis B Vaccine(1 of 3 - 19+ 3-dose series) Never done Influenza Vaccine(1) due on 02/04/2024 Covid-19 Vaccine( - 2023- season) Never done Cervical Cancer Screening due on 01/07/2026 DTaP,Tdap,Td Vaccine(2 - Td or Tdap) due on 05/04/2026 Hepatitis C Screening Completed HIV Screening Completed Data reviewed None ASSESSMENT/PLAN: 1. Elevated blood pressure reading without diagnosis of hypertension - ICD9: 796.2, ICD10: R03.0 (primary diagnosis) - Recommended regular aerobic exercise. - Recommend home blood pressure monitoring, to bring results in on next visit - OK to go back on gabapentin, as she says this helped previously 2. Fibromyalgia - ICD9: 729.1, ICD10: M79.7 - GABAPENTIN 300 MG CAPSULE 3. Anxiety with depression - ICD9: 300.4, ICD10: F41.8 Continue current medications. 4. ADHD (attention deficit hyperactivity disorder), combined type - ICD9: 314.01, ICD10: F90.2 Continue Strattera 18 mg daily Follow up prn Davide Chao MD [facility]25 NoteHNO ID: [id number] Author: DAVIDE CHAO MD Service: ? Author Type: Physician Type: Progress Notes Filed: 08/06/2024 15:33 Note Text: Chief Complaint Patient presents with: Blood Pressure Medication Follow-up HPI:This Team Access Model visit is a virtual encounter. It required patient-provider interaction for the medical decision making as documented below. Patient was offered a virtual/telemedicine appointment in lieu of an office visit due to recommendations to reduce patient exposure to COVID-19. Patient is aware of limitations of performing the visit without a face to face visit in the office setting and agrees. Pt completing a virtual visit today for a medication follow up. I have communicated my name and active licensure. The patient's identity and physical location were verified at the time of this visit. Either the patient or their legal underwriting sales representative has been informed of the risks and benefits of -- and alternatives to -- treatment through a remote evaluation and consents to proceed with the evaluation remotely. Pt sent in a [employer] message back on 07/29/24 asking for a full blood work up due to having reverse tubal surgery in the next couple months. She wanted to make sure everything was normal with kidney, liver, and heart. Lab orders have been placed. PRINT [employer]ISHER placed orders for other testing. Main concern today is asking about going back on Gabapentin due to BP spiking. Woke up with elevated BP. Whenever she's had this evaluated in the past they've been unable to find anything wrong. Has bene evaluated by Cardiology in the past, was given metoprolol but this did not help and made her tired. Anxiety/Moods - At last visit pt reported increased anxiety and panic attacks. Has tried several SSRI medications, but were unable to take them due to causing suicidal thoughts. Pt has a licensed Counselor and works with her. Also has a Building Custodian, which she feels the Building Custodian is more helpful. Was started on Strattera 40 mg at previous visit and Propranolol 40 mg 1 tab po bid. Did not tolerate the Strattera 40 mg, so this was reduced to 18 mg. Doing much better on this dosage and this has helped her anxiety as well. Using Ativan infrequently. Doesn't really like the Propranolol much. ADHD - At previous visit pt reported not being able to focus on more than one thing at a time. Feels someone could be talking to her, but she doesn't hear them, due to not being focused. She seems to believe this started happening after the trauma she went through a year ago. Pt reports a hx of ADHD, but never had issues likes this previously. Was started on Strattera 18 mg once daily. Feels that she is doing well on this dosage. Did not like 40 mg, didn't tolerate it well. Past medical history, appointments, medications, allergies reviewed. Previous Medical History PAST MEDICAL HISTORY Diagnosis Date Anemia Anxiety Arrhythmia Bipolar affect, depressed (HCC) Chlamydia 05/2009 DJD (degenerative joint disease) GERD (gastroesophageal reflux disease) 09/18/2015 Herpes simplex virus (HSV) infection HGSIL (high grade squamous intraepithelial lesion) on Pap smear of cervix 2015 History of Helicobacter pylori infection 09/18/2015 IBS (irritable bowel syndrome) 2017 Interstitial cystitis 2018 MVP (mitral valve prolapse) Orthostatic hypotension 09/18/2015 Palpitations Paroxysmal supraventricular tachycardia (HCC) 09/18/2015 depression PVC (premature ventricular contraction) 09/18/2015 Seizure (HCC) Seizures (HCC) Syncope Previous Surgical History PAST SURGICAL HISTORY Procedure Laterality Date COLONOSCOPY FLX DX W/COLLJ SPEC WHEN PFRMD 11/21/2013 Colonoscopy AND EGD COLONOSCOPY FLX DX W/COLLJ SPEC WHEN PFRMD 07/20/2017 Colonoscopy CYSTOSCOPY jul 2018 DANDC, DIAG AND/OR THERAPEUTIC N/A 10/03/2023 ESOPHAGOGASTRODUODENOSCOPY TRANSORAL DIAGNOSTIC 07/20/2017 EGD ESOPHAGOGASTRODUODENOSCOPY TRANSORAL DIAGNOSTIC 08/08/2018 EGD LAPAROSCOPY SURG CHOLECYSTECTOMY 09/14/2009 LEEP PROCEDURE (PRINT FINISHER DEPT)_*FL 09/09/2015 SVT ABLATION 05/2015 procedure was incomplete and did not work per patient- records requested Family History FAMILY HISTORY Problem Relation Age of Onset Psychiatry Mother Depression Thyroid Mother No Known Problems Father No Known Problems Sister No Known Problems Sister Seizures Sister Multiple Sclerosis Sister No Known Problems Brother No Known Problems Brother No Known Problems Brother Arthritis Maternal Grandmother Arthritis Maternal Grandfather Hypertension Maternal Grandfather Lipids Maternal Grandfather No Known Problems Paternal Grandmother No Known Problems Daughter No Known Problems Daughter No Known Problems Son No Known Problems Son Alcohol/Drug Maternal Uncle Alcohol/Drug Maternal Uncle Alcohol/Drug Maternal Uncle Alcohol/Drug Maternal Uncle Patient Allergies ALLERGIES Allergen Reactions Cough (more content not included)...[facility]01-06-2025 History of Present illness Narrative* Davide Chao MD - 06/10/2024 7:00 PM EST Chief Complaint Patient presents with: Blood Pressure Anxiety HPI Que Escobar is a 34 year old female who presents here today for blood pressure. Pt here with concerns about her blood pressure and anxiety. Anxiety: Chronic. Currently taking Ativan 1 mg 1 tab po every 12 hours prn. At last visit her Lexapro was decreased from 20 mg to 10 mg due to depersonalization, felt like she was in a movie. She states that she weaned herself off the lexapro a few months ago and is doing well without it as far as her moods, however the last few weeks she has been having panic attacks again. Has not had them inyears. Has Ativan to use which helps but she can't work when she takes it. No sure what has triggered the panic attacks to start again. She states that she was driving and had a really bad attack so had to test puller to the side off road for about 30 minutes till it passed, hasn't had a panic attack while driving for a long time prior to that episode. Was previously working with two separate Counselors. Has been tried on several SSRI medications for depression, but were unable to take due to causing suicidal thoughts. She can not focus on more than one thing at a time, feels that someone can be talking to her but she doesn't hear them, is not focused. Stated this all seemed to have started after the stress and trauma she went through a year ago. She states she has hx of ADHD but never had issues like this with it. She prefers to be off medications, is not happy that she has had to start taking the Ativan again. States that there are times when the Ativan can calm her down and she can fu nction and then other times she can take it and feels high off her ass. She has a lot of stress with her job. She states she feels broken. She states she doesn't mean to cry, states I am not sadit just sucks. Has a licensed counselor and works with her stock sorter which she feels the stock sorter is more helpful. Follows with Cardiology due to hx of arrhythmia, has taken Metoprolol 25 mg daily. No refills lately. She has talked to her operational intelligence analyst about this but has not wanted to treat her with medications emma BP has not been consistently elevated. She stated she has had readings as high as 155/120 and that the BP typically goes up in the evenings. States she doesn't get any chest pains, dizziness, or SOB but she gets pressure in her face and head and then tingling sensation down her body. Has been on Propranolol and Metoprolol in the past. The metoprolol wasn't helping so she stopped taking it. Is using Protonix but is still choking on her food at times and then vomiting. Was told at 21 yearsold that she needed to have her esophagus stretched but was too afraid to have that completed. Feels she needs to be referred back to Gastro. Has been trying to lose weight, is down 13 lbs. Past medical history, appointments, medications, allergies reviewed. Previous Medical History PAST MEDICAL HISTORY Diagnosis Date Anemia Anxiety Arrhythmia Bipolar affect, depressed (HCC) Chlamydia 05/2009 DJD (degenerative joint disease) GERD (gastroesophageal reflux disease) 09/18/2015 Herpes simplex virus (HSV) infection HGSIL (high grade squamous intraepithelial lesion) on Pap smear of cervix 2015 History of Helicobacter pylori infection 09/18/2015 IBS (irritable bowel syndrome) 2017 Interstitial cystitis 2018 MVP (mitral valve prolapse) Orthostatic hypotension 09/18/2015 Palpitations Paroxysmal supraventricular tachycardia (HCC) 09/18/2015 depression PVC (premature ventricular contraction) 09/18/2015 Seizure (HCC) Seizures (HCC) Syncope Previous Surgical History PAST SURGICAL HISTORY Procedure Laterality Date COLONOSCOPY FLX DX W/COLLJ SPEC WHEN PFRMD 11/21/2013 Colonoscopy & EGD COLONOSCOPY FLX DX W/COLLJ SPEC WHEN PFRMD 07/20/2017 Colonoscopy CYSTOSCOPY jul 2018 D&C, DIAG AND/OR THERAPEUTIC N/A 10/03/2023 ESOPHAGOGASTRODUODENOSCOPY TRANSORAL DIAGNOSTIC 07/20/2017 EGD ESOPHAGOGASTRODUODENOSCOPY TRANSORAL DIAGNOSTIC 08/08/2018 EGD LAPAROSCOPY SURG CHOLECYSTECTOMY 09/14/2009 LEEP PROCEDURE (PRINT FINISHER DEPT)_*FL 09/09/2015 SVT ABLATION 05/2015 procedure was incomplete and did not work per patient- records requested Family History FAMILY HISTORY Problem Relation Age of Onset Psychiatry Mother Depression Thyroid Mother No Known Problems Father No Known Problems Sister No Known Problems Sister Seizures Sister Multiple Sclerosis Sister No Known Problems Brother No Known Problems Brother No Known Problems Brother Arthritis Maternal Grandmother Arthritis Maternal Grandfather Hypertension Maternal Grandfather Lipids Maternal Grandfather No Known Problems Paternal Grandmother No Known Problems Daughter No Known Problems Daughter No Known Problems Son No Known Problems Son Alcohol/Drug Maternal Uncle Alcohol/Drug Maternal Uncle Alcohol/Drug Maternal Uncle Alcohol/Drug Maternal Uncle Patient Allergies ALLERGIES Allergen Reactions Cough Syrup [Guaife* Other: See Comments Messes with heart rate/beat Flagyl [Metronidazo* GI Upset nausea, vomiting and cold sweats lightheaded like going to pass out. Antidepressants [Tr* Other: See Comments Suicidal thoughts Dog Dander Other: See Comments Positive allergy skin test Lactose GI Upset Current Medications Current Outpatient Medications on File Prior to Visit Medication Sig pantoprazole DR (PROTONIX) 40 mg tablet Take 1 tablet by mouth daily before breakfast. Take on empty stomach, 1/2 hr before meal. No current facility-administered medications on file prior to visit. Social History Social History Tobacco Use Smoking status: Former Current packs/day: 0.00 Average packs/day: 1 pack/day for 17.0 years (17.0 ttl pk-yrs) Types: Cigarettes Start date: 01/23/2004 Quit date: 01/22/2021 Years since quittin.3 Smokeless tobacco: Never Vaping Use Vaping status: current everyday user Substance Use Topics Alcohol use: No Drug use: No EXAM: BP 110/74 Pulse 78 Resp 16 Wt 81.1 kg (178 lb 12.7 oz) LMP 10/03/2023 (Approximate) BMI 28.86 kg/m General Appearance: Well appearing, alert, in no acute distress, well-hydrated, well nourished.. Lungs: Lungs clear to auscultation. No wheezing, rhonchi, rales.. Heart: RRR without murmur, gallop, or rubs. No ectopy. Health Maintenance List Hepatitis B Vaccine(1 of 3 - 19+ 3-dose series) Never done Influenza Vaccine(1) due on 02/04/2024 Covid-19 Vaccine( - season) Never done Cervical Cancer Screening due on 01/07/2026 DTaP,Tdap,Td Vaccine(2 - Td or Tdap) due on 05/04/2026 Hepatitis C Screening Completed HIV Screening Completed HPV Vaccine Aged Out Data reviewed None ASSESSMENT/PLAN: 1. Anxiety - ICD9: 300.00, ICD10: F41.9 (primary diagnosis) Start Propranolol 40 mg bid prn as needed. Continue with Ativan prn Continue with Counselor 2. Elevated blood pressure reading without diagnosis of hypertension - ICD9: 796.2, ICD10: R03.0 - Encouraged dietary sodium restriction/DASH diet - Recommended regular aerobic exercise. - Recommend home blood pressure monitoring, to bring results in on next visit - start Propranolol 40 mg daily as needed - Goal of BP <130/80 3. ADHD (attention deficit hyperactivity disorder), combined type - ICD9: 314.01, ICD10: F90.2 Start Strattera daily Follow up in 3 months. I agree with the Chief Complaint, ROS, and Past Histories independently gathered by the clinical product support sales representative and the remaining scribed note accurately describes my personal service to the patient. Medical Decision Making: Problems: Moderate: 1+ chronic illnesses with change Risk: Moderate: Drug management Medical Decision Making Level: 4 - Moderate Davide Chao MD The documentation for this note was completed by Vera Lewis MA acting as scribe for Davide Chao MD. June 10, 2024 6:40 PM. Vera Lewis MA [facility] NoteHNO ID: [id number] Author: DAVIDE CHAO MD Service: ? Author Type: Physician Type: Progress Notes Filed: 06/10/2024 19:53 Note Text: Chief Complaint Patient presents with: Blood Pressure Anxiety HPI Que Escobar is a 34 year old female who presents here today for blood pressure. Pt here with concerns about her blood pressure and anxiety. Anxiety: Chronic. Currently taking Ativan 1 mg 1 tab po every 12 hours prn. At last visit her Lexapro was decreased from 20 mg to 10 mg due to depersonalization, felt like she was in a movie. She states that she weaned herself off the lexapro a few months ago and is doing well without it as far as her moods, however the last few weeks she has been having panic attacks again. Has not had them in years. Has Ativan to use which helps but she can't work when she takes it. No sure what has triggered the panic attacks to start again. She states that she was driving and had a really bad attack so had to test puller to the side off road for about 30 minutes till it passed, hasn't had a panic attack while driving for a long time prior to that episode. Was previously working with two separate Counselors. Has been tried on several SSRI medications for depression, but were unable to take due to causing suicidal thoughts. She can not focus on more than one thing at a time, feels that someone can be talking to her but she doesn't hear them, is not focused. Statedthis all seemed to have started after the stress and trauma she went through a year ago. She states she has hx of ADHD but never had issues like this with it. She prefers to be off medications, is not happy that she has had to start taking the Ativan again. States that there are times when the Ativan can calm her down and she can function and then other times she can take it and feels high off her ass. She has a lot of stress with her job. She states she feels broken. She states she doesn't mean to cry, states I am not sad it just sucks. Has a licensed counselor and works with her stock sorter which she feels the stock sorter is more helpful. Follows with Cardiology due to hx of arrhythmia, has taken Metoprolol 25 mg daily. No refills lately. She has talked to her operational intelligence analyst about this but has not wanted to treat her with medications as her BP has not been consistently elevated. She stated she has had readings as high as 155/120 and that the BP typically goes up in the evenings. States she doesn't get any chest pains, dizziness, or SOB but she gets pressure in her face and head and then tingling sensation down her body. Has been on Propranolol and Metoprolol in the past. The metoprolol wasn't helping so she stopped taking it. Is using Protonix but is still choking on her food at times and then vomiting. Was told at 21 years old that she needed to have her esophagus stretched but was too afraid to have that completed. Feels she needs to be referred back to Gastro. Has been trying to lose weight, is down 13 lbs. Past medical history, appointments, medications, allergies reviewed. Previous Medical History PAST MEDICAL HISTORY Diagnosis Date Anemia Anxiety Arrhythmia Bipolar affect, depressed (HCC) Chlamydia 05/2009 DJD (degenerative joint disease) GERD (gastroesophageal reflux disease) 09/18/2015 Herpes simplex virus (HSV) infection HGSIL (high grade squamous intraepithelial lesion) on Pap smear of cervix 2015 History of Helicobacter pylori infection 09/18/2015 IBS (irritable bowel syndrome) 2017 Interstitial cystitis 2018 MVP (mitral valve prolapse) Orthostatic hypotension 09/18/2015 Palpitations Paroxysmal supraventricular tachycardia (HCC) 09/18/2015 depression PVC (premature ventricular contraction) 09/18/2015 Seizure (HCC) Seizures (HCC) Syncope Previous Surgical History PAST SURGICAL HISTORY Procedure Laterality Date COLONOSCOPY FLX DX W/COLLJ SPEC WHEN PFRMD 11/21/2013 Colonoscopy AND EGD COLONOSCOPY FLX DX W/COLLJ SPEC WHEN PFRMD 07/20/2017 Colonoscopy CYSTOSCOPY jul 2018 DANDC, DIAG AND/OR THERAPEUTIC N/A 10/03/2023 ESOPHAGOGASTRODUODENOSCOPY TRANSORAL DIAGNOSTIC 07/20/2017 EGD ESOPHAGOGASTRODUODENOSCOPY TRANSORAL DIAGNOSTIC 08/08/2018 EGD LAPAROSCOPY SURG CHOLECYSTECTOMY 09/14/2009 LEEP PROCEDURE (PRINT FINISHER DEPT)_*FL 09/09/2015 SVT ABLATION 05/2015 procedure was incomplete and did not work per patient- records requested Family History FAMILY HISTORY Problem Relation Age of Onset Psychiatry Mother Depression Thyroid Mother No Known Problems Father No Known Problems Sister No Known Problems Sister Seizures Sister Multiple Sclerosis Sister No Known Problems Brother No Known Problems Brother No Known Problems Brother Arthritis Maternal Grandmother Arthritis Maternal Grandfather Hypertension Maternal Grandfather Lipids Maternal Grandfather No Known Problems Paternal Grandmother No Known Problems Daughte (more content not included)...[facility]01-06-2025 Evaluation note* Diagnosis Onset Date Resolution Status Admit Date Inclusion cyst of vulva noneactive J anuary 2024 1:49pm Vaginal odor noneactive June 10, 2024 1:49pm Postcoital bleeding acute August 19, 2024 2:42pm [facility] Work Phone: 1(428) 633-449810-25-2024 History of Present illness Narrative* Davide Chao MD - 03/29/2024 11:40 AM EDT Chief Complaint Patient presents with: ER F/U: Chest pain Dysphagia with vomiting HPI: This Team Access Model visit is a virtual/phone encounter. It required patient-provider interaction for the medical decision making as documented below. Patient was offered a virtual/telemedicine appointment in lieu of an office visit due to recommendations to reduce patient exposure to COVID-19. Patient is aware of limitations of performing the visit without a face to face visit in the office setting and agrees. Pt was at [facility] with complaints of chest pain. Pt was seen at the ED for complaints of chest pain, cardiac work up was negative. Pt wrote into the office asking for advice. Notes that she's beenchoking on every single meal that she eats for the last few weeks, but worse recently. Did some research on this issues. Hx of being diagnosed in [place] with eosinophilic esophagitis. Reports this has been an issue since she was 20, with choking when eating. States she was told she had this, but never said what she needed to do for this so she didn't pursue anything further. States previously ifshe would drink something, she was able to get the food down, however this is no longer working. She is vomiting half of her meals up, stating it won't go past the bottom of her esophagus. She believes this issue is causing her chest pain. She wonders what she needs to do for this, cause it's difficult to swallow food at all. She is losing her insurance on 04/04/24 and won't be able to look into new insurance until June. ER records attached below: Scan on 03/29/2024 8:42 AM by Provider, ADIA Edwards: Consultation - Emergency Medicine Diagnosed with eosinophilic esophagitis in 2013. Recently started eating some peanut butter, and she has mild allergy to peanuts. Not using any acid suppression. Requests refill of ativan; uses prn. Losing insurance at the end of the month. Past medical history, appointments, medications, allergies reviewed. Previous Medical History PAST MEDICAL HISTORY Diagnosis Date Anemia Anxiety Arrhythmia Bipolar affect, depressed (HCC) Chlamydia 05/2009 DJD (degenerative joint disease) GERD (gastroesophageal reflux disease) 09/18/2015 Herpes simplex virus (HSV) infection HGSIL (high grade squamous intraepithelial lesion) on Pap smear of cervix 2015 History of Helicobacter pylori infection 09/18/2015 IBS (irritable bowel syndrome) 2017 Interstitial cystitis 2018 MVP (mitral valve prolapse) Orthostatic hypotension 09/18/2015 Palpitations Paroxysmal supraventricular tachycardia (HCC) 09/18/2015 depression PVC (premature ventricular contraction) 09/18/2015 Seizure (HCC) Seizures (HCC) Syncope Previous Surgical History PAST SURGICAL HISTORY Procedure Laterality Date COLONOSCOPY FLX DX W/COLLJ SPEC WHEN PFRMD 11/21/2013 Colonoscopy & EGD COLONOSCOPY FLX DX W/COLLJ SPEC WHEN PFRMD 07/20/2017 Colonoscopy CYSTOSCOPY jul 2018 D&C, DIAG AND/OR THERAPEUTIC N/A 10/03/2023 ESOPHAGOGASTRODUODENOSCOPY TRANSORAL DIAGNOSTIC 07/20/2017 EGD ESOPHAGOGASTRODUODENOSCOPY TRANSORAL DIAGNOSTIC 08/08/2018 EGD LAPAROSCOPY SURG CHOLECYSTECTOMY 09/14/2009 LEEP PROCEDURE (PRINT FINISHER DEPT)_*FL 09/09/2015 SVT ABLATION 05/2015 procedure was incomplete and did not work per patient- records requested Family History FAMILY HISTORY Problem Relation Age of Onset Psychiatry Mother Depression Thyroid Mother No Known Problems Father No Known Problems Sister No Known Problems Sister Seizures Sister Multiple Sclerosis Sister No Known Problems Brother No Known Problems Brother No Known Problems Brother Arthritis Maternal Grandmother Arthritis Maternal Grandfather Hypertension Maternal Grandfather Lipids Maternal Grandfather No Known Problems Paternal Grandmother No Known Problems Daughter No Known Problems Daughter No Known Problems Son No Known Problems Son Alcohol/Drug Maternal Uncle Alcohol/Drug Maternal Uncle Alcohol/Drug Maternal Uncle Alcohol/Drug Maternal Uncle Patient Allergies ALLERGIES Allergen Reactions Cough Syrup [Guaife* Other: See Comments Messes with heart rate/beat Flagyl [Metronidazo* GI Upset nausea, vomiting and cold sweats lightheaded like going to pass out. Antidepressants [Tr* Other: See Comments Suicidal thoughts Dog Dander Other: See Comments Positive allergy skin test Lactose GI Upset Current Medications Current Outpatient Medications on File Prior to Visit Medication Sig escitalopram oxalate (LEXAPRO) 10 mg tablet Take 1 tablet by mouth once daily. valACYclovir (VALTREX) 500 mg tablet Take 1 tablet by mouth once daily. Lactobacillus acidophilus (PROBIOTIC ORAL) Take 2 tablets by mouth once daily. No current facility-administered medications on file prior to visit. Social History Social History Tobacco Use Smoking status: Former Current packs/day: 0.00 Average packs/day: 1 pack/day for 17.0 years (17.0 ttl pk-yrs) Types: Cigarettes Start date: 01/23/2004 Quit date: 01/22/2021 Years since quittin.1 Smokeless tobacco: Never Vaping Use Vaping status: current everyday user Substance Use Topics Alcohol use: No Drug use: No EXAM: LMP 10/03/2023 (Approximate) Health Maintenance List Hepatitis B Vaccine(1 of 3 - 19+ 3-dose series) Never done Influenza Vaccine(1) due on 02/04/2024 Covid-19 Vaccine( - season) Never done Cervical Cancer Screening due on 01/07/2026 DTaP,Tdap,Td Vaccine(2 - Td or Tdap) due on 05/04/2026 Hepatitis C Screening Completed HIV Screening Completed HPV Vaccine Aged Out Data reviewed Care Everywhere ASSESSMENT/PLAN: 1. Eosinophilic esophagitis - ICD9: 530.13, ICD10: K20.0 (primary diagnosis) Probable cause of chest symptoms; use PPI, avoid peanuts - PANTOPRAZOLE 40 MG TABLET,DELAYED RELEASE 2. Anxiety with depression - ICD9: 300.4, ICD10: F41.8 - LORAZEPAM 1 MG TABLET 3. Dysphagia, unspecified type - ICD9: 787.20, ICD10: R13.10 - PANTOPRAZOLE 40 MG TABLET,DELAYED RELEASE Follow up prn Davide Chao MD documented [facility] NoteHNO ID: [id number] Author: DAVIDE CHAO MD Service: ? Author Type: Physician Type: Progress Notes Filed: 03/29/2024 11:57 Note Text: Chief Complaint Patient presents with: ER F/U: Chest pain Dysphagia with vomiting HPI: This Team Access Model visit is a virtual/phone encounter. It required patient-provider interaction for the medical decision making as documented below. Patient was offered a virtual/telemedicine appointment in lieu of an office visit due to recommendations to reduce patient exposure to COVID-19. Patient is aware of limitations of performing the visit without a face to face visit in the office setting and agrees. Pt was at [facility] with complaints of chest pain. Pt was seen at the ED for complaints of chest pain, cardiac work up was negative. Pt wrote into the office asking for advice. Notes that she's been choking on every single meal that she eats for the last few weeks, but worse recently. Did some research on this issues. Hx of being diagnosed in [place] with eosinophilic esophagitis. Reports this has been an issue since she was 20, with choking when eating. States she was told she had this, but never said what she needed to do for this so she didn't pursue anything further. States previously if she would drink something, she was able to get the food down, however this is no longer working. She is vomiting half of her meals up, stating it won't go past the bottom of her esophagus. She believes this issue is causing her chest pain. She wonders what she needs to do for this, cause it's difficult to swallow food at all. She is losing her insurance on 04/04/24 and won't be able to look into new insurance until June. ER records attached below: Scan on 03/29/2024 8:42 AM by Provider, ADIA Edwards: Consultation - Emergency Medicine Diagnosed with eosinophilic esophagitis in 2013. Recently started eating some peanut butter, and she has mild allergy to peanuts. Not using any acid suppression. Requests refill of ativan; uses prn. Losing insurance at the end of the month. Past medical history, appointments, medications, allergies reviewed. Previous Medical History PAST MEDICAL HISTORY Diagnosis Date Anemia Anxiety Arrhythmia Bipolar affect, depressed (HCC) Chlamydia 05/2009 DJD (degenerative joint disease) GERD (gastroesophageal reflux disease) 09/18/2015 Herpes simplex virus (HSV) infection HGSIL (high grade squamous intraepithelial lesion) on Pap smear of cervix 2015 History of Helicobacter pylori infection 09/18/2015 IBS (irritable bowel syndrome) 2018 Interstitial cystitis 2019 MVP (mitral valve prolapse) Orthostatic hypotension 09/18/2015 Palpitations Paroxysmal supraventricular tachycardia (HCC) 09/18/2015 depression PVC (premature ventricular contraction) 09/18/2015 Seizure (HCC) Seizures (HCC) Syncope Previous Surgical History PAST SURGICAL HISTORY Procedure Laterality Date COLONOSCOPY FLX DX W/COLLJ SPEC WHEN PFRMD 11/21/2013 Colonoscopy AND EGD COLONOSCOPY FLX DX W/COLLJ SPEC WHEN PFRMD 07/20/2017 Colonoscopy CYSTOSCOPY jul 2018 DANDC, DIAG AND/OR THERAPEUTIC N/A 10/03/2023 ESOPHAGOGASTRODUODENOSCOPY TRANSORAL DIAGNOSTIC 07/20/2017 EGD ESOPHAGOGASTRODUODENOSCOPY TRANSORAL DIAGNOSTIC 08/08/2018 EGD LAPAROSCOPY SURG CHOLECYSTECTOMY 09/14/2009 LEEP PROCEDURE (PRINT FINISHER DEPT)_*[place] 09/09/2015 SVT ABLATION 05/2015 procedure was incomplete and did not work per patient- records requested Family History FAMILY HISTORY Problem Relation Age of Onset Psychiatry Mother Depression Thyroid Mother No Known Problems Father No Known Problems Sister No Known Problems Sister Seizures Sister Multiple Sclerosis Sister No Known Problems Brother No Known Problems Brother No Known Problems Brother Arthritis Maternal Grandmother Arthritis Maternal Grandfather Hypertension Maternal Grandfather Lipids Maternal Grandfather No Known Problems Paternal Grandmother No Known Problems Daughter No Known Problems Daughter No Known Problems Son No Known Problems Son Alcohol/Drug Maternal Uncle Alcohol/Drug Maternal Uncle Alcohol/Drug Maternal Uncle Alcohol/Drug Maternal Uncle Patient Allergies ALLERGIES Allergen Reactions Cough Syrup [Guaife* Other: See Comments Messes with heart rate/beat Flagyl [Metronidazo* GI Upset nausea, vomiting and cold sweats lightheaded like going to pass out. Antidepressants [Tr* Other: See Comments Suicidal thoughts Dog Dander Other: See Comments Positive allergy skin test Lactose GI Upset Current Medications Current Outpatient Medications on File Prior to Visit Medication Sig escitalopram oxalate (LEXAPRO) 10 mg tablet Take 1 tablet by mouth once daily. valACYclovir (VALTREX) 500 mg tablet Take 1 tablet by mouth once daily. Lactobacillus acidophilus (PROBIOTIC ORAL) Take 2 tablets by mouth once daily. No current facility-administered (more content not included)...[facility]10-22-2024 Telephone encounter Note* Telephone Encounter - Yue Genao MA - 03/26/2024 10:26 AM EDT Pt has been notified that she needs to see an VENDING MACHINE REPAIRER if appt is not available. PCP is out multiple daysthis month, with limited scheduling. After further review pt is scheduled for a VV Monday. Yue Genao MA [facility]10-22-2024 Miscellaneous Notes* Telephone Encounter - Yue Genao MA - 03/26/2024 10:26 AM EDT Pt has been notified that she needs to see an VENDING MACHINE REPAIRER if appt is not available. PCP is out multiple daysthis month, with limited scheduling. After further review pt is scheduled for a VV Monday. Yue Genao MA * Telephone Encounter - Yue Genao MA - 03/26/2024 9:39 AM EDT Advised pt that she needs an appt to discuss as this has not been discussed previously over the past year. Yue Genao MA [facility] Telephone encounter Note * Telephone Encounter - Yue Genao MA - 03/26/2024 9:39 AM EDT Advised pt that she needs an appt to discuss as this has not been discussed previously over the past year. Yue Genao MA [facility]10-18-2024 Hospital Discharge instructions Patient Education 03/22/2024 15:37:05 Chest Pain, Uncertain Cause Uncertain Causes of Chest Pain Chest pain can happen for a number of reasons. Sometimes the cause can't be determined. If your condition does not seem serious, and your pain does not appear to be coming from your heart, your healthcare provider may recommend watching it closely. Sometimes the signs of a serious problem take moretime to appear. Many problems not related to your heart can cause chest pain. These include: Musculoskeletal. Costochondritis is an inflammation of the tissues around the ribs that can occur from trauma or overuse injuries, or a strain of the muscles of the chest wall Respiratory. Pneumonia, collapsed lung (pneumothorax), or inflammation of the lining of the chest and lungs (pleurisy) Gastrointestinal. Esophageal reflux, heartburn, ulcers, or gallbladder disease Anxiety and panic disorders Nerve compression and inflammation Rare miscellaneous problems such as aortic aneurysm (a swelling of the large artery coming out of the heart) or pulmonary embolism (a blood clot in the lungs) Home care After your visit, follow these recommendations: Rest today and avoid strenuous activity. Take any prescribed medicine as directed. Be aware of any recurrent chest pain and notice any changes Follow-up care Follow up with your healthcare provider if you do not start to feel better within 24 hours, or as advised. Call 911 Call 911 if any of these occur: A change in the type of pain: if it feels different, becomes more severe, lasts longer, or begins to spread into your shoulder, arm, neck, jaw or back Shortness of breath or increased pain with breathing Weakness, dizziness, or fainting Rapid heart beat Crushing sensation in your chest When to seek medical advice Call your healthcare provider right away if any of the following occur: Cough with dark colored sputum (phlegm) or blood Fever of 100.4 F (38 C) or higher, or as directed by your healthcare provider Swelling, pain or redness in one leg [id number] [employer] [place] [address]. All rights reserved. This information is not intended as a substitute for professional medical care. Always follow yourhealthcare professional's instructions. Follow Up Care 03/22/2024 14:31:02 With:DAVIDE CHAO MD Address: [address] [place] [address]- When:2-4 days [facility] 10-18-2024 Telephone encounter Note* Telephone Encounter - Davide Chao MD - 03/22/2024 5:06 PM EDT Noted Davide Chao MD [facility]10-18-2024 Miscellaneous Notes* Telephone Encounter - Davide Chao MD - 03/22/2024 5:06 PM EDT Noted Davide Chao MD * Telephone Encounter - Latanya Tam LPN - 03/22/2024 1:32 PM EDT Pt. calling from [facility] Er with Chest pain wanting appt today with provider. Advised Pt. she should talk to the MD that she is seeing at the Er. She states they probably won't help me. I offered her Er follow up next week and refused. documented in [facility] encounter[facility]10-[facility]24 NoteDischarge Instructions Discharge Summary [address] [address] [id number] 03/22/2024 Patient: QUE SACNHEZ Sex: Female : 1990 Age: 33y Thank you for visiting [facility]. You have been evaluated today by Antonette Mendez D.O. for the following condition(s): Principal Diagnosis Chest pain characterized as discomfort and pressure. INSTRUCTIONS Eloped: Patient left the Emergency Department without completion of treatment. Notified the primarynurse of patient departure. Patient paged with no response. Unable to locate patient. Instructed staff to attempt to follow up with patient. 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. You have been evaluated today by Antonette Mendez D.O. for the following condition(s): Principal Diagnosis Chest pain characterized as discomfort and pressure. INSTRUCTIONS Eloped: Patient left the Emergency Department without completion of treatment. Notified the primarynurse of patient departure. Patient paged with no response. Unable to locate patient. Instructed staff to attempt to follow up with patient. ADDITIONAL INFORMATION 2 of 4 Discharge Instructions Uncertain Causes of Chest Pain Chest pain can happen for a number of reasons. Sometimes the cause can't be determined. If your condition does not seem serious, and your pain does not appear to be coming from your heart, your healthcare provider may recommend watching it closely. Sometimes the signs of a serious problem take more time to appear. Many problems not related to your heart can cause chest pain. These include: Musculoskeletal. Costochondritis is an inflammation of the tissues around the ribs that can occur from trauma or overuse injuries, or a strain of the muscles of the chest wall Respiratory. Pneumonia, collapsed lung (pneumothorax), or inflammation of the lining of the chest and lungs (pleurisy) Gastrointestinal. Esophageal reflux, heartburn, ulcers, or gallbladder disease Anxiety and panic disorders Nerve compression and inflammation Rare miscellaneous problems such as aortic aneurysm (a swelling of the large artery coming out of the heart) or pulmonary embolism (a blood clot in the lungs) Home care After your visit, follow these recommendations: Rest today and avoid strenuous activity. Take any prescribed medicine as directed. 3 of 4 Discharge Instructions Be aware of any recurrent chest pain and notice any changes Follow-up care Follow up with your healthcare provider if you do not start to feel better within 24 hours, or as advised. Call 911 Call 911 if any of these occur: A change in the type of pain: if it feels different, becomes more severe, lasts longer, or begins to spread into your shoulder, arm, neck, jaw or back Shortness of breath or increased pain with breathing Weakness, dizziness, or fainting Rapid heart beat Crushing sensation in your chest When to seek medical advice Call your healthcare provider right away if any of the following occur: Cough with dark colored sputum (phlegm) or blood Fever of 100.4F (38C) or higher, or as directed by your healthcare provider Swelling, pain or redness in one leg [address] [place], [place] 3090310-18-2024 Note Discharge Instructions Thank you for allowing [facility] to assist you with your healthcare needs. The following is importantdischarge information regarding your hospital visit. What to Do Next Instructions from Your Care Team No qualifying data available. Post Acute Orders No qualifying data available. You Need to Schedule the Following Appointments Follow Up with DAVIDE CHAO MD When:Within 2-4 days Where:[address] [facility] [place] [address]- Allergies No Known Medication Allergies Medications Please ask your primary doctor or pharmacist before taking any other medication not listed, including over the counter drugs, herbal medications, vitamins and or supplements as they may interact withyour home medications. What How Much When Why Instructions Last Dose Unchanged doxycycline (doxycycline hyclate 100 mg oral capsule) 1 cap by mouth Two (2) times a day Duration: 7 Days Unchanged ethinyl estradiol-etonogestrel (NuvaRing 0.120 mg-0.015 mg/ 24 hours vaginal ring) 1 Each Vaginal Every 4 weeks Unchanged etodolac (etodolac 400 mg oral tablet) 1 tab(s) by mouth Two (2) times a day Neck pain Duration: 7 Days Unchanged LORazepam (LORazepam 1 mg oral tablet) 1 tab(s) by mouth Two (2) times a day as needed for as needed for anxiety Unchanged ondansetron (Zofran ODT 4 mg oral tablet, disintegrating) 1 tab(s) by mouth Three (3) times a day Unchanged predniSONE (predniSONE 20 mg oral tablet) 2 tab(s) by mouth Every day Duration: 3 Days Unchanged promethazine (Phenergan 25 mg rectal suppository) 1 suppository(ies) in the rectum Every 4 hours Unchanged sotalol (sotalol 80 mg oral tablet) 1 tab(s) by mouth Two (2) times a day Unchanged tiZANidine (tiZANidine 2 mg oral capsule) 1 cap by mouth Every 8 hours as needed for as needed for muscle spasm Neck pain Duration: 7 Days Please take this list to your next doctor s visit. Bring all medications you take, including over the counter medications, herbals and other supplements with you to your doctor s visit. Patients and families are reminded to discard old lists and to update any records with all medication providers or retail pharmacies. Education Materials Uncertain Causes of Chest Pain Chest pain can happen for a number of reasons. Sometimes the cause can't be determined. If your condition does not seem serious, and your pain does not appear to be coming from your heart, your healthcare provider may recommend watching it closely. Sometimes the signs of a serious problem take moretime to appear. Many problems not related to your heart can cause chest pain. These include: Musculoskeletal. Costochondritis is an inflammation of the tissues around the ribs that can occur from trauma or overuse injuries, or a strain of the muscles of the chest wall Respiratory. Pneumonia, collapsed lung (pneumothorax), or inflammation of the lining of the chest and lungs (pleurisy) Gastrointestinal. Esophageal reflux, heartburn, ulcers, or gallbladder disease Anxiety and panic disorders Nerve compression and inflammation Rare miscellaneous problems such as aortic aneurysm (a swelling of the large artery coming out of the heart) or pulmonary embolism (a blood clot in the lungs) Home care After your visit, follow these recommendations: Rest today and avoid strenuous activity. Take any prescribed medicine as directed. Be aware of any recurrent chest pain and notice any changes Follow-up care Follow up with your healthcare provider if you do not start to feel better within 24 hours, or as advised. Call 911 Call 911 if any of these occur: A change in the type of pain: if it feels different, becomes more severe, lasts longer, or begins to spread into your shoulder, arm, neck, jaw or back Shortness of breath or increased pain with breathing Weakness, dizziness, or fainting Rapid heart beat Crushing sensation in your chest When to seek medical advice Call your healthcare provider right away if any of the following occur: Cough with dark colored sputum (phlegm) or blood Fever of 100.4 F (38 C) or higher, or as directed by your healthcare provider Swelling, pain or redness in one leg [id number] [employer] [place], [place] [id number]. All rights reserved. This information is not intended as a substitute for professional medical care. Always follow yourhealthcare professional's instructions. Additional Information VACCINATE! IT SAVES LIVES! Members of the community who have not yet received the COVID-19 vaccine and would like to receive it can visit one of [facility] vaccine clinics. There are many vaccine clinic locations within the [facility]. For locations and available times, please visit www.gettheshot.coronavirus.[place].gov/. It is important to note that some COVID mobile vaccine clinics are held outdoors and may be canceled in rainy or stormy conditions. To learn more about pediatric vaccinations (ages 5-11), we invite you to visit the [facility] webpage. [email or web address]/[email or web address] learn more about the COVID-19 vaccine, we invite you to visit the CDC website for a list of frequently asked questions. https://www.cdc.gov/coronavirus/2019-ncov/vaccines/faq.html [facility] Patient Portal Access Instructions: Stay connected with your healthcare team and access your personal medical information anytime with the [facility] Patient Portal. If you would like a full copy of your medical records please contact the [facility] Medical Records Department Monday through Monday between 8a.m. and 4:30p.m. Please follow the directions below to access the portal: 1.Access the email account you provided upon registration to the [facility].2.Look for an invitation email from [facility].3.Open the email and access the invitation link: Accept Invitation to [facility]4.Fill in the required coughlin to create your account. Sign into www.[employer] with your username and password that you created in the above steps to stay up to date. You can then view a summary of results, a summary of your visits, and the ability to download your summaries to your computer or send the information securely to a physician. Remember that your healthcare information is confidential, so carefully consider who you will allow to register on the [facility] Patient Portal for access to your information. You can also access the [facility] Patient Portal on the [employer]. Simply click on Health Records under [employer] and then click on the [employer] logo. HOW TO SAFELY DISPOSE OF PRESCRIPTION MEDICATIONS Please use one of the following methods to safely dispose of your unused medications. 1.Use a drug disposal kit: the drug disposal pouch allows you to safely discard your old and unuseddrugs. Ask your nurse to give you one when you are discharged.2.Visit a local take-back location: Many local pharmacies and police departments have programs that collect old and unwanted prescriptiondrugs. Call your local pharmacy or go to http://bit.malathi/1P3Ls0f to find one close to you.3.Make use of household items: Use cat litter or old coffee grounds to dispose medications if other options arenot available. Mix your drugs with these household products, seal them in an airtight container andthrow it into the garbage. Call [facility]: [phone] to be sure your drugs can be disposed of in this way. Some medicines may require a different approach.4.Never flush your medications down the toilet. IF YOU HAVE BEEN PRESCRIBED AN OPIOIDS FOR PAIN If you have been prescribed an opioid (such as hydrocodone, oxycodone or morphine), it is critical to understand the possible side effects and risks of opioid pain medications. Even when taken as directed, opioids can have several side effects including: Tolerance, meaning you might need to take more of a medication for the same pain relief. Nausea, vomiting and/or constipation. Sleepiness, dizziness, dry mouth, confusion, depression or itching. Physical dependence, meaning you have withdrawal symptoms when a medication is stopped ? this can develop within a few days. KNOW YOUR RESPONSIBILITIES It is important to know exactly how much and how often to take the opioid pain medications you are prescribed. Never take opioids in higher amounts or more often than prescribed. Do not combine opioids with alcohol or other drugs that cause drowsiness, such as benzodiazepines, also known as benzos,including diazepam and alprazolam, muscle relaxants or sleep aids. Never sell or share prescriptionopioids. This is illegal. Store opioids in a secure place and out of reach of others (including children, family, friends and visitors). The last page(s) of this document has been signed and retained as a CHART COPY Signatures Patient Education Materials Chest Pain, Uncertain Cause Medication Leaflets My discharge plan and instructions have been reviewed and explained to me and IARDEN KERSTIN L understand my current condition and have read and understand these discharge instructions. I have received a written copy of the plan/instructions. If I have questions, I am aware that I should contact my doctor. 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 calling from [facility] Er with Chest pain wanting appt today with provider. Advised Pt. she should talk to the MD that she is seeing at the Er. She states they probably won't help me. I offered her Er follow up next week and refused. [facility] Work Phone: [phone]) 904-214107-29-2024 Miscellaneous Notes* Telephone Encounter - Harini Rock APRN.CNP - 01/01/2024 5:43 PM EDT The following approved medication requests have been transmitted electronically. Requested Prescriptions Signed Prescriptions Disp Refills LORazepam (ATIVAN) 1 mg tablet 60 tablet 0 Sig: Take 1 tablet by mouth every 12 hours as needed for anxiety for up to 30 days. Authorizing Provider: HARINI ROCK APRN.CNP PDMP website checked and validated. All prescriptions have been APPROPRIATELY filled. No suspiciousactivity was identified. 01/01/2024 by Harini Rock APRN.CNP * Telephone Encounter - Fiordaliza Sims RN - 12/28/2023 3:13 PM EDT The patient has been identified by name and date of : Yes Caregiver verified no other encounters exist for this prescription request: Yes Caregiver confirmed with patient/requestor that no other refills are due, in the near future, with this provider at this time: Yes The last office visit in the department: 10/17/2023 Requested Prescriptions Pending Prescriptions Disp Refills LORazepam (ATIVAN) 1 mg tablet 60 tablet 0 Sig: Take 1 tablet by mouth every 12 hours as needed for anxiety for up to 30 days. Fiordaliza Sims RN documented [facility]07-[facility]24 Telephone encounter Note * Telephone Encounter - Harini Rock APRN.CNP - 01/01/2024 5:43 PM EDT The following approved medication requests have been transmitted electronically. Requested Prescriptions Signed Prescriptions Disp Refills LORazepam (ATIVAN) 1 mg tablet 60 tablet 0 Sig: Take 1 tablet by mouth every 12 hours as needed for anxiety for up to 30 days. Authorizing Provider: HARINI ROCK APRN.CNP PDMP website checked and validated. All prescriptions have been APPROPRIATELY filled. No suspiciousactivity was identified. 01/01/2024 by Harini Rock APRN.CNP [facility]07-25-2024 Telephone encounter Note* Telephone Encounter - Fiordaliza Sims RN - 12/28/2023 3:13 PM EDT The patient has been identified by name and date of : Yes Caregiver verified no other encounters exist for this prescription request: Yes Caregiver confirmed with patient/requestor that no other refills are due, in the near future, with this provider at this time: Yes The last office visit in the department: 10/17/2023 Requested Prescriptions Pending Prescriptions Disp Refills LORazepam (ATIVAN) 1 mg tablet 60 tablet 0 Sig: Take 1 tablet by mouth every 12 hours as needed for anxiety for up to 30 days. Fiordaliza Sims RN [facility]07-05-2024 History of Present illness Narrative* Davide Chao MD - 12/08/2023 2:00 PM EDT Chief Complaint Patient presents with: Medication Follow-up HPI: This Team Access Model visit is a virtual/phone encounter. It required patient-provider interaction for the medical decision making as documented below. Patient was offered a virtual/telemedicine appointment in lieu of an office visit due to recommendations to reduce patient exposure to COVID-19. Patient is aware of limitations of performing the visit without a face to face visit in the office setting and agrees. I have communicated my name and active licensure. The patient's identity and physical location wereverified at the time of this visit. Either the patient or their legal underwriting sales representative has been informed of the risks and benefits of -- and alternatives to -- treatment through a remote evaluation andconsents to proceed with the evaluation remotely. Pt completing a virtual visit today. , last name is now Malgorzata. Would prefer to leave [place] listed as this is what her insurance is under at this time. Until she receives everything to make hername switch final. TINY/Depression: Is on Lexapro 20 mg once daily and Ativan 1 mg, 1 pill BID prn. Denies needing a refill of Ativan at this time; just takes this for panic attacks. Pt is wanting to discuss the Lexapro. Unsure if it's the medication or not but has not been feeling normal for a while now. Spouse noticing depersonalization but she feels like she is in a movie, is the best way she can describe it. Has been going on for a while now, best guess couple months. Working with two counselors. Has had bad reactions to other SSRIs with suicidal thoughts. Has been on wellbutrin and buspar. Would like to avoid antipsychotics. Pt reports she's currently not taking Gabapentin, hasn't taken this in a while. Did not feel thatthis helped. Is prescribed Metoprolol 25 mg from Cardiology, but doesn't have refills. Uses [employer]. Past medical history, appointments, medications, allergies reviewed. Previous Medical History PAST MEDICAL HISTORY Diagnosis Date Anemia Anxiety Arrhythmia Bipolar affect, depressed (HCC) Chlamydia 05/2009 DJD (degenerative joint disease) GERD (gastroesophageal reflux disease) 09/18/2015 Herpes simplex virus (HSV) infection HGSIL (high grade squamous intraepithelial lesion) on Pap smear of cervix 2015 History of Helicobacter pylori infection 09/18/2015 IBS (irritable bowel syndrome) 2017 Interstitial cystitis 2018 MVP (mitral valve prolapse) Orthostatic hypotension 09/18/2015 Palpitations Paroxysmal supraventricular tachycardia (HCC) 09/18/2015 depression PVC (premature ventricular contraction) 09/18/2015 Seizure (HCC) Seizures (HCC) Syncope Previous Surgical History PAST SURGICAL HISTORY Procedure Laterality Date COLONOSCOPY FLX DX W/COLLJ SPEC WHEN PFRMD 11/21/2013 Colonoscopy & EGD COLONOSCOPY FLX DX W/COLLJ SPEC WHEN PFRMD 07/20/2017 Colonoscopy CYSTOSCOPY jul 2018 D&C, DIAG AND/OR THERAPEUTIC N/A 10/03/2023 ESOPHAGOGASTRODUODENOSCOPY TRANSORAL DIAGNOSTIC 07/20/2017 EGD ESOPHAGOGASTRODUODENOSCOPY TRANSORAL DIAGNOSTIC 08/08/2018 EGD LAPAROSCOPY SURG CHOLECYSTECTOMY 09/14/2009 LEEP PROCEDURE (PRINT FINISHER DEPT)_*[place] 09/09/2015 SVT ABLATION 05/2015 procedure was incomplete and did not work per patient- records requested Family History FAMILY HISTORY Problem Relation Age of Onset Psychiatry Mother Depression Thyroid Mother No Known Problems Father No Known Problems Sister No Known Problems Sister Seizures Sister Multiple Sclerosis Sister No Known Problems Brother No Known Problems Brother No Known Problems Brother Arthritis Maternal Grandmother Arthritis Maternal Grandfather Hypertension Maternal Grandfather Lipids Maternal Grandfather No Known Problems Paternal Grandmother No Known Problems Daughter No Known Problems Daughter No Known Problems Son No Known Problems Son Alcohol/Drug Maternal Uncle Alcohol/Drug Maternal Uncle Alcohol/Drug Maternal Uncle Alcohol/Drug Maternal Uncle Patient Allergies ALLERGIES Allergen Reactions Cough Syrup [Guaife* Other: See Comments Messes with heart rate/beat Flagyl [Metronidazo* GI Upset nausea, vomiting and cold sweats lightheaded like going to pass out. Antidepressants [Tr* Other: See Comments Suicidal thoughts Dog Dander Other: See Comments Positive allergy skin test Lactose GI Upset Current Medications Current Outpatient Medications on File Prior to Visit Medication Sig valACYclovir (VALTREX) 500 mg tablet Take 1 tablet by mouth once daily. metoprolol succinate ER (TOPROL XL) 25 mg 24 hr tablet Take 1 tablet by mouth once daily. Lactobacillus acidophilus (PROBIOTIC ORAL) Take 2 tablets by mouth once daily. gabapentin (NEURONTIN) 300 mg capsule Take 1 capsule by mouth three times a day for 90 days. escitalopram oxalate (LEXAPRO) 20 mg tablet Take 1 tablet by mouth once daily. No current facility-administered medications on file prior to visit. Social History Social History Tobacco Use Smoking status: Former Packs/day: 1.00 Years: 17.00 Additional pack years: 0.00 Total pack years: 17.00 Types: Cigarettes Quit date: 01/22/2021 Years since quittin.8 Smokeless tobacco: Never Vaping Use Vaping Use: current everyday user Substance Use Topics Alcohol use: No Drug use: No EXAM: LMP 10/03/2023 (Approximate) Health Maintenance List Hepatitis B Vaccine(1 of 3 - 19+ 3-dose series) Never done Covid-19 Vaccine( - 2022- season) Never done Influenza Vaccine(1) due on 02/04/2024 Cervical Cancer Screening due on 01/07/2026 DTaP,Tdap,Td Vaccine(2 - Td or Tdap) due on 05/04/2026 Hepatitis C Screening Completed HIV Screening Completed HPV Vaccine Aged Out Data reviewed none ASSESSMENT/PLAN: 1. Anxiety with depression - ICD9: 300.4, ICD10: F41.8 Will decrease lexapro to 10 mg daily - ESCITALOPRAM 10 MG TABLET Follow up in 3 months I agree with the Chief Complaint, ROS, and Past Histories independently gathered by the clinical product support sales representative and the remaining scribed note accurately describes my personal service to the patient. Davide Chao MD The documentation for this note was completed by Yue Genao MA acting as scribe for Davide Chao MD. December 08, 2023 1:28 PM. Yue Genao MA [facility] NoteHNO ID: [id number] Author: DAVIDE CHAO MD Service: ? Author Type: Physician Type: Progress Notes Filed: 12/08/2023 14:15 Note Text: Chief Complaint Patient presents with: Medication Follow-up HPI: This Team Access Model visit is a virtual/phone encounter. It required patient-provider interaction for the medical decision making as documented below. Patient was offered a virtual/telemedicine appointment in lieu of an office visit due to recommendations to reduce patient exposure to COVID-19. Patient is aware of limitations of performing the visit without a face to face visit in the office setting and agrees. I have communicated my name and active licensure. The patient's identity and physical location were verified at the time of this visit. Either the patient or their legal underwriting sales representative has been informed of the risks and benefits of -- and alternatives to -- treatment through a remote evaluation and consents to proceed with the evaluation remotely. Pt completing a virtual visit today. , last name is now Malgorzata. Would prefer to leave [place] listed as this is what her insurance is under at this time. Until she receives everything to make her name switch final. TINY/Depression: Is on Lexapro 20 mg once daily and Ativan 1 mg, 1 pill BID prn. Denies needing a refill of Ativan at this time; just takes this for panic attacks. Pt is wanting to discuss the Lexapro. Unsure if it's the medication or not but has not been feeling normal for a while now. Spouse noticing depersonalization but she feels like she is in a movie, is the best way she can describe it. Has been going on for a while now, best guess couple months. Working with two counselors. Has had bad reactions to other SSRIs with suicidal thoughts. Has been on wellbutrin and buspar. Would like to avoid antipsychotics. Pt reports she's currently not taking Gabapentin, hasn't taken this in a while. Did not feel that this helped. Is prescribed Metoprolol 25 mg from Cardiology, but doesn't have refills. Uses [employer]. Past medical history, appointments, medications, allergies reviewed. Previous Medical History PAST MEDICAL HISTORY Diagnosis Date Anemia Anxiety Arrhythmia Bipolar affect, depressed (HCC) Chlamydia 05/2009 DJD (degenerative joint disease) GERD (gastroesophageal reflux disease) 09/18/2015 Herpes simplex virus (HSV) infection HGSIL (high grade squamous intraepithelial lesion) on Pap smear of cervix 2015 History of Helicobacter pylori infection 09/18/2015 IBS (irritable bowel syndrome) 2018 Interstitial cystitis 2018 MVP (mitral valve prolapse) Orthostatic hypotension 09/18/2015 Palpitations Paroxysmal supraventricular tachycardia (HCC) 09/18/2015 depression PVC (premature ventricular contraction) 09/18/2015 Seizure (HCC) Seizures (HCC) Syncope Previous Surgical History PAST SURGICAL HISTORY Procedure Laterality Date COLONOSCOPY FLX DX W/COLLJ SPEC WHEN PFRMD 11/21/2013 Colonoscopy AND EGD COLONOSCOPY FLX DX W/COLLJ SPEC WHEN PFRMD 07/20/2017 Colonoscopy CYSTOSCOPY jul 2018 DANDC, DIAG AND/OR THERAPEUTIC N/A 10/03/2023 ESOPHAGOGASTRODUODENOSCOPY TRANSORAL DIAGNOSTIC 07/20/2017 EGD ESOPHAGOGASTRODUODENOSCOPY TRANSORAL DIAGNOSTIC 08/08/2018 EGD LAPAROSCOPY SURG CHOLECYSTECTOMY 09/14/2009 LEEP PROCEDURE (PRINT FINISH[employer] DEPT)_*[place] 09/09/2015 SVT ABLATION 05/2015 procedure was incomplete and did not work per patient- records requested Family History FAMILY HISTORY Problem Relation Age of Onset Psychiatry Mother Depression Thyroid Mother No Known Problems Father No Known Problems Sister No Known Problems Sister Seizures Sister Multiple Sclerosis Sister No Known Problems Brother No Known Problems Brother No Known Problems Brother Arthritis Maternal Grandmother Arthritis Maternal Grandfather Hypertension Maternal Grandfather Lipids Maternal Grandfather No Known Problems Paternal Grandmother No Known Problems Daughter No Known Problems Daughter No Known Problems Son No Known Problems Son Alcohol/Drug Maternal Uncle Alcohol/Drug Maternal Uncle Alcohol/Drug Maternal Uncle Alcohol/Drug Maternal Uncle Patient Allergies ALLERGIES Allergen Reactions Cough Syrup [Guaife* Other: See Comments Messes with heart rate/beat Flagyl [Metronidazo* GI Upset nausea, vomiting and cold sweats lightheaded like going to pass out. Antidepressants [Tr* Other: See Comments Suicidal thoughts Dog Dander Other: See Comments Positive allergy skin test Lactose GI Upset Current Medications Current Outpatient Medications on File Prior to Visit Medication Sig valACYclovir (VALTREX) 500 mg tablet Take 1 tablet by mouth once daily. metoprolol succinate ER (TOPROL XL) 25 mg 24 hr tablet Take 1 tablet by mouth once daily. Lactobacillus acidophilus (PROBIOTIC ORAL) Take 2 tablets by mouth once daily. gabapentin (NEURONTIN) 300 mg c (more content not included)...[facility]05-31-2024 History of Present illness Narrative* Davide Chao MD - 11/03/2023 11:20 AM EDT Chief Complaint Follow up HPI:This Team Access Model visit is a virtual encounter. It required patient- provider interaction for the medical decision making as documented below. Patient was offered a virtual/telemedicine appointment in lieu of an office visit due to recommendations to reduce patient exposure to COVID-19. Patient is aware of limitations of performing the visit without a face to face visit in the office setting and agrees. I have communicated my name and active licensure. The patient's identity and physical location wereverified at the time of this visit. Either the patient or their legal underwriting sales representative has been informed of the risks and benefits of -- and alternatives to -- treatment through a remote evaluation andconsents to proceed with the evaluation remotely. Pt completing a virtual visit today. Pt last name changed to Angélica, not updated on chart. Pt c/o not being able to hear. Reports she has a really bad cold and states her ears are plugged. Reports nasal drainage. Symptoms started about two days ago. Has been using OTC cold medication whichhas not helped her. Depression/TINY - Has been working with a Counselor. On current regimen of Lexapro 20 mg once daily and Ativan 1 mg 1 tab po bid prn; uses a couple of times/week. Pt's PH-9 score 16. Cardio - Has been following with [facility] for near syncope and tachycardia. Was recently seen by Rayo Nielson CNP on 10/17/23 for syncope. Pt is currently taking Toprol XL 25 mg once daily. Fibro - Chronic pain on current regimen of Gabapentin 300 mg 1 caps po TID, but taking this at bedtime. Will be losing her insurance next month; getting Past medical history, appointments, medications, allergies reviewed. Previous Medical History PAST MEDICAL HISTORY Diagnosis Date Anemia Anxiety Arrhythmia Bipolar affect, depressed (HCC) Chlamydia 05/2009 DJD (degenerative joint disease) GERD (gastroesophageal reflux disease) 09/18/2015 Herpes simplex virus (HSV) infection HGSIL (high grade squamous intraepithelial lesion) on Pap smear of cervix 2015 History of Helicobacter pylori infection 09/18/2015 IBS (irritable bowel syndrome) 2017 Interstitial cystitis 2018 MVP (mitral valve prolapse) Orthostatic hypotension 09/18/2015 Palpitations Paroxysmal supraventricular tachycardia (HCC) 09/18/2015 depression PVC (premature ventricular contraction) 09/18/2015 Seizure (HCC) Seizures (HCC) Syncope Previous Surgical History PAST SURGICAL HISTORY Procedure Laterality Date COLONOSCOPY FLX DX W/COLLJ SPEC WHEN PFRMD 11/21/2013 Colonoscopy & EGD COLONOSCOPY FLX DX W/COLLJ SPEC WHEN PFRMD 07/20/2017 Colonoscopy CYSTOSCOPY jul 2018 ESOPHAGOGASTRODUODENOSCOPY TRANSORAL DIAGNOSTIC 07/20/2017 EGD ESOPHAGOGASTRODUODENOSCOPY TRANSORAL DIAGNOSTIC 08/08/2018 EGD LAPAROSCOPY SURG CHOLECYSTECTOMY 09/14/2009 LEEP PROCEDURE (PRINT FINISHER DEPT)_*[place] 09/09/2015 SVT ABLATION 05/2015 procedure was incomplete and did not work per patient- records requested Family History FAMILY HISTORY Problem Relation Age of Onset Psychiatry Mother Depression Thyroid Mother No Known Problems Father No Known Problems Sister No Known Problems Sister Seizures Sister Multiple Sclerosis Sister No Known Problems Brother No Known Problems Brother No Known Problems Brother Arthritis Maternal Grandmother Arthritis Maternal Grandfather Hypertension Maternal Grandfather Lipids Maternal Grandfather No Known Problems Paternal Grandmother No Known Problems Daughter No Known Problems Daughter No Known Problems Son No Known Problems Son Alcohol/Drug Maternal Uncle Alcohol/Drug Maternal Uncle Alcohol/Drug Maternal Uncle Alcohol/Drug Maternal Uncle Patient Allergies ALLERGIES Allergen Reactions Cough Syrup [Guaife* Other: See Comments Messes with heart rate/beat Flagyl [Metronidazo* GI Upset nausea, vomiting and cold sweats lightheaded like going to pass out. Antidepressants [Tr* Other: See Comments Suicidal thoughts Dog Dander Other: See Comments Positive allergy skin test Lactose GI Upset Current Medications Current Outpatient Medications on File Prior to Visit Medication Sig valACYclovir (VALTREX) 500 mg tablet Take 1 tablet by mouth once daily. metoprolol succinate ER (TOPROL XL) 25 mg 24 hr tablet Take 1 tablet by mouth once daily. LORazepam (ATIVAN) 1 mg tablet Take 1 tablet by mouth every 12 hours as needed for anxiety. Lactobacillus acidophilus (PROBIOTIC ORAL) Take 2 tablets by mouth once daily. gabapentin (NEURONTIN) 300 mg capsule Take 1 capsule by mouth three times a day for 90 days. promethazine (PHENERGAN) 12.5 mg tablet Take 1 tablet by mouth every 6 hours as needed. (Patient not taking: Reported on 10/17/2023) escitalopram oxalate (LEXAPRO) 20 mg tablet Take 1 tablet by mouth once daily. No current facility-administered medications on file prior to visit. Social History Social History Tobacco Use Smoking status: Former Packs/day: 1.00 Years: 17.00 Additional pack years: 0.00 Total pack years: 17.00 Types: Cigarettes Quit date: 01/22/2021 Years since quittin.7 Smokeless tobacco: Never Vaping Use Vaping Use: current everyday user Substance Use Topics Alcohol use: No Drug use: No EXAM: LMP 10/03/2023 (Approximate) General Appearance: Well appearing, alert, in no acute distress, well-hydrated, well nourished.. Health Maintenance List Hepatitis B Vaccine(1 of 3 - 19+ 3-dose series) Never done Covid-19 Vaccine( season) Never done Pap Testing due on 01/07/2026 HPV Testing due on 01/07/2026 DTaP,Tdap,Td Vaccine(2 - Td or Tdap) due on 05/04/2026 Influenza Vaccine Completed Hepatitis C Screening Completed HIV Screening Completed HPV Vaccine Aged Out Data reviewed Appointment on 10/17/2023 Component Date Value WBC 10/17/2023 9.52 RBC 10/17/2023 4.89 Hemoglobin 10/17/2023 13.6 Hematocrit 10/17/2023 42.5 MCV 10/17/2023 86.9 MCH 10/17/2023 27.8 MCHC 10/17/2023 32.0 RDW-CV 10/17/2023 14.9 Platelet Count 10/17/2023 337 MPV 10/17/2023 10.2 Neutrophils % 10/17/2023 65.8 Abs Neut 10/17/2023 6.26 Lymphocytes % 10/17/2023 24.1 Abs Lymph 10/17/2023 2.29 Monocytes % 10/17/2023 6.5 Abs [place] 10/17/2023 0.62 Eosinophils % 10/17/2023 2.8 Abs Eosin 10/17/2023 0.27 Basophils % 10/17/2023 0.5 Abs Baso 10/17/2023 0.05 Immature Granulocytes % 10/17/2023 0.3 Abs Immature Gran 10/17/2023 0.03 NRBC 10/17/2023 0.0 Absolute nRBC 10/17/2023 <0.01 Diff Type 10/17/2023 Auto Glucose 10/17/2023 77 BUN 10/17/2023 17 Creatinine 10/17/2023 0.78 Sodium 10/17/2023 137 Potassium 10/17/2023 4.4 Chloride 10/17/2023 103 CO2 10/17/2023 21 (L) Anion Gap 10/17/2023 13 Calcium, Total 10/17/2023 9.2 Estimated Glomerular Dmitry* 10/17/2023 103 TSH 10/17/2023 0.885 Hemoglobin A1C 10/17/2023 5.3 Estimated Average Glucose 10/17/2023 105 ASSESSMENT/PLAN: 1. Fibromyalgia - ICD9: 729.1, ICD10: M79.7 (primary diagnosis) Continue current medications. 2. Anxiety with depression - ICD9: 300.4, ICD10: F41.8 Refill lorazepam - LORAZEPAM 1 MG TABLET 3. Near syncope - ICD9: 780.2, ICD10: R55 Monitor; no recurrence 4. URI OTC Flonase Follow up prn Davide Chao MD [facility] NoteHNO ID: [id number] Author: DAVIDE CHAO MD Service: ? Author Type: Physician Type: Progress Notes Filed: 11/03/2023 11:35 Note Text: Chief Complaint Follow up HPI:This Team Access Model visit is a virtual encounter. It required patient-provider interaction for the medical decision making as documented below. Patient was offered a virtual/telemedicine appointment in lieu of an office visit due to recommendations to reduce patient exposure to COVID-19. Patient is aware of limitations of performing the visit without a face to face visit in the office setting and agrees. I have communicated my name and active licensure. The patient's identity and physical location were verified at the time of this visit. Either the patient or their legal underwriting sales representative has been informed of the risks and benefits of -- and alternatives to -- treatment through a remote evaluation and consents to proceed with the evaluation remotely. Pt completing a virtual visit today. Pt last name changed to Angélica, not updated on chart. Pt c/o not being able to hear. Reports she has a really bad cold and states her ears are plugged. Reports nasal drainage. Symptoms started about two days ago. Has been using OTC cold medication which has not helped her. Depression/TINY - Has been working with a Counselor. On current regimen of Lexapro 20 mg once daily and Ativan 1 mg 1 tab po bid prn; uses a couple of times/week. Pt's PH-9 score 16. Cardio - Has been following with [facility] for near syncope and tachycardia. Was recently seen by Rayo Nielson CNP on 10/17/23 for syncope. Pt is currently taking Toprol XL 25 mg once daily. Fibro - Chronic pain on current regimen of Gabapentin 300 mg 1 caps po TID, but taking this at bedtime. Will be losing her insurance next month; getting Past medical history, appointments, medications, allergies reviewed. Previous Medical History PAST MEDICAL HISTORY Diagnosis Date Anemia Anxiety Arrhythmia Bipolar affect, depressed (HCC) Chlamydia 05/2009 DJD (degenerative joint disease) GERD (gastroesophageal reflux disease) 09/18/2015 Herpes simplex virus (HSV) infection HGSIL (high grade squamous intraepithelial lesion) on Pap smear of cervix 2015 History of Helicobacter pylori infection 09/18/2015 IBS (irritable bowel syndrome) 2017 Interstitial cystitis 2018 MVP (mitral valve prolapse) Orthostatic hypotension 09/18/2015 Palpitations Paroxysmal supraventricular tachycardia (HCC) 09/18/2015 depression PVC (premature ventricular contraction) 09/18/2015 Seizure (HCC) Seizures (HCC) Syncope Previous Surgical History PAST SURGICAL HISTORY Procedure Laterality Date COLONOSCOPY FLX DX W/COLLJ SPEC WHEN PFRMD 11/21/2013 Colonoscopy AND EGD COLONOSCOPY FLX DX W/COLLJ SPEC WHEN PFRMD 07/20/2017 Colonoscopy CYSTOSCOPY jul 2018 ESOPHAGOGASTRODUODENOSCOPY TRANSORAL DIAGNOSTIC 07/20/2017 EGD ESOPHAGOGASTRODUODENOSCOPY TRANSORAL DIAGNOSTIC 08/08/2018 EGD LAPAROSCOPY SURG CHOLECYSTECTOMY 09/14/2009 LEEP PROCEDURE (PRINT FINISHER DEPT)_*FL 09/09/2015 SVT ABLATION 05/2015 procedure was incomplete and did not work per patient- records requested Family History FAMILY HISTORY Problem Relation Age of Onset Psychiatry Mother Depression Thyroid Mother No Known Problems Father No Known Problems Sister No Known Problems Sister Seizures Sister Multiple Sclerosis Sister No Known Problems Brother No Known Problems Brother No Known Problems Brother Arthritis Maternal Grandmother Arthritis Maternal Grandfather Hypertension Maternal Grandfather Lipids Maternal Grandfather No Known Problems Paternal Grandmother No Known Problems Daughter No Known Problems Daughter No Known Problems Son No Known Problems Son Alcohol/Drug Maternal Uncle Alcohol/Drug Maternal Uncle Alcohol/Drug Maternal Uncle Alcohol/Drug Maternal Uncle Patient Allergies ALLERGIES Allergen Reactions Cough Syrup [Guaife* Other: See Comments Messes with heart rate/beat Flagyl [Metronidazo* GI Upset nausea, vomiting and cold sweats lightheaded like going to pass out. Antidepressants [Tr* Other: See Comments Suicidal thoughts Dog Dander Other: See Comments Positive allergy skin test Lactose GI Upset Current Medications Current Outpatient Medications on File Prior to Visit Medication Sig valACYclovir (VALTREX) 500 mg tablet Take 1 tablet by mouth once daily. metoprolol succinate ER (TOPROL XL) 25 mg 24 hr tablet Take 1 tablet by mouth once daily. LORazepam (ATIVAN) 1 mg tablet Take 1 tablet by mouth every 12 hours as needed for anxiety. Lactobacillus acidophilus (PROBIOTIC ORAL) Take 2 tablets by mouth once daily. gabapentin (NEURONTIN) 300 mg capsule Take 1 capsule by mouth three times a day for 90 days. promethazine (PHENERGAN) 12.5 mg tablet Take 1 tablet by mouth every 6 hours as needed. (Patient not taking: Reported on (more content not included)...[facility]05-30-2024 Telephone encounter Note* Telephone Encounter - Harini Rock APRN.CNP - 11/02/2023 7:24 AM EDT The following approved medication requests have been transmitted electronically. Requested Prescriptions Pending Prescriptions Disp Refills valACYclovir (VALTREX) 500 mg tablet 30 tablet 5 Sig: Take 1 tablet by mouth once daily. Harini Rock APRN.CNP [facility]-30-[facility] Miscellaneous Notes* Telephone Encounter - Harini Rock APRN.CNP - 11/02/2023 7:24 AM EDT The following approved medication requests have been transmitted electronically. Requested Prescriptions Pending Prescriptions Disp Refills valACYclovir (VALTREX) 500 mg tablet 30 tablet 5 Sig: Take 1 tablet by mouth once daily. Harini Tannhof, [email or web address] DESIGNER * Telephone Encounter - Judy Tapia LPN - 11/01/2023 1:39 PM EDT MARGOT-10/26/22 Labs-10/16/22 NOV- My Chart message sent to schedule yearly. Judy aTpia LPN documented [facility] encounter[facility] Telephone encounter Note * Telephone Encounter - Judy Tapia LPN - 11/01/2023 1:39 PM EDT MARGOT-10/26/22 Labs-10/16/22 NOV- My Chart message sent to schedule yearly. Judy Tapia LPN [facility]05-[facility] Telephone encounter Note* Telephone Encounter - Sarah Amador MA - 10/18/2023 10:59 AM EDT Pt informed, Sarah Amador MA [facility] Miscellaneous Notes* Telephone Encounter - Sarah Amador MA - 10/18/2023 10:59 AM EDT Pt informedSarah MA * Telephone Encounter - Rayo Nielson PA-C - 10/18/2023 10:49 AM EDT Please let patient know that her labs were all normal. Recommend plan as discussed, f/u if continuing to have symptoms or seek care in ED if worsening symptoms. Rayo Nielson PA-C 10/18/2023 documented in this encounterGal[facility]05-[facility] Telephone encounter Note * Telephone Encounter - Rayo Nielson PA-C - 10/18/2023 10:49 AM EDT Please let patient know that her labs were all normal. Recommend plan as discussed, f/u if continuing to have symptoms or seek care in ED if worsening symptoms. Rayo Nielson PA-C 10/18/2023 [facility] Work Phone: [phone] [id number] NoteHNO ID: [id number] Author: RAYO NIELSON PA-C Service: ? Author Type: Physician Dry Folder Cloth Type: Progress Notes Filed: 10/17/2023 16:45 Note Text: 10/17/2023 Patient presents with: Low Blood Sugar: Possibly d/t feeling like syncope, out of breath AND vomiting with relief post juice intake x last 2 days SUBJECTIVE: This is a 33 year old that is here today for Complaint(s) of near syncopal episode yesterday morning. States she hadn't eaten anything, was in the shower and started to feel lightheaded and nauseous. She did vomit twice and then after drinking some juice symptoms completely resolved. No associated numbness/tingling, head trauma, SOB, chest, worst CROCKETT of life. Similar to symptoms of hypoglycemia she's had in the past. Admits to not eating regular meals, skips breakfast. . Tells me she is on metroprolol 25 mg once daily for intermittent elevated BP. States she used to take metroprolol BID but BP was still spiking to 170. Has not had any symptoms prior to 2 days ago. She follows with cardiology-had a work up for MENSAH negative. Denies any current symptoms of dizziness, nausea, abdominal pain, urinary symptoms, chance of , chest pain, SOB, palpitations. Had a DNC 2 weeks ago, has been having heavy menses. Last Hgb on 10/02 was 11.9. Scheduled for hysterectomy in the next couple months. States she always had low BP prior to last and it's normal for her to have orthostatic. No active vomiting, diarrhea. Last 5 Encounter BP Readings: Date: BP: 10/17/2023 89/62 08/10/2023 105/76 10/27/2022 100/72 05/27/2021 100/60 05/03/2021 114/60] PAST MEDICAL HISTORY Diagnosis Date Anemia Anxiety Arrhythmia Bipolar affect, depressed (HCC) Chlamydia 05/2009 DJD (degenerative joint disease) GERD (gastroesophageal reflux disease) 09/18/2015 Herpes simplex virus (HSV) infection HGSIL (high grade squamous intraepithelial lesion) on Pap smear of cervix 2015 History of Helicobacter pylori infection 09/18/2015 IBS (irritable bowel syndrome) 2017 Interstitial cystitis 2018 MVP (mitral valve prolapse) Orthostatic hypotension 09/18/2015 Palpitations Paroxysmal supraventricular tachycardia (HCC) 09/18/2015 depression PVC (premature ventricular contraction) 09/18/2015 Seizure (HCC) Seizures (HCC) Syncope ALLERGIES Cough Syrup [Guaifenesin], Flagyl [Metronidazole Hcl], Antidepressants [Tricyclic Antidepressants And Tricyclic Compounds], Dog Dander, and Lactose MEDICATIONS Current Outpatient Medications Medication Sig metoprolol succinate ER (TOPROL XL) 25 mg 24 hr tablet Take 1 tablet by mouth once daily. LORazepam (ATIVAN) 1 mg tablet Take 1 tablet by mouth every 12 hours as needed for anxiety. Lactobacillus acidophilus (PROBIOTIC ORAL) Take 2 tablets by mouth once daily. gabapentin (NEURONTIN) 300 mg capsule Take 1 capsule by mouth three times a day for 90 days. escitalopram oxalate (LEXAPRO) 20 mg tablet Take 1 tablet by mouth once daily. promethazine (PHENERGAN) 12.5 mg tablet Take 1 tablet by mouth every 6 hours as needed. (Patient not taking: Reported on 10/17/2023) valACYclovir (VALTREX) 500 mg tablet Take 1 tablet by mouth once daily. (Patient not taking: Reported on 10/17/2023) No current facility-administered medications for this visit. SOCIAL HISTORY Social History Tobacco Use Smoking status: Former Packs/day: 1.00 Years: 17.00 Additional pack years: 0.00 Total pack years: 17.00 Types: Cigarettes Quit date: 01/22/2021 Years since quittin.7 Smokeless tobacco: Never Vaping Use Vaping Use: current everyday user Substance Use Topics Alcohol use: No Drug use: No REVIEW OF SYSTEMS See HPI OBJECTIVE: BP 89/62 (BP Site: Right Arm, BP Position: Sitting, BP Cuff Size: Large Adult) Pulse 94 Resp 16 Wt 79.2 kg (174 lb 9.6 oz) LMP 10/03/2023 (Approximate) SpO2 98% BMI 28.18 kg/m? APPEARANCE Well appearing, alert, in no acute distress, well-hydrated, well nourished. EYES PERRLA, conjunctiva and sclera normal. EARS External ears normal, canals clear NOSE/SINUS Nares normal. Septum midline. Mucosa normal. No drainage or sinus tenderness. THROAT normal, no erythema NECK Supple, no adenopathy; thyroid symmetric, normal size, no bruits HEART RRR with normal S1 and S2, no murmurs, no gallops, no JVD appreciated LUNG clear to auscultation ABDOMEN bowel sounds normoactive, no bruits, soft, non-tender, non-distended, without organomegaly or palpable masses, no tenderness to palpation EXTREMITIES Extremities normal, No deformities, No skin discoloration, No edema, and Normal pulses bilaterally. NEURO Awake, alert and oriented x 3, Cranial nerves II-XII grossly intact, Reflexes symmetrical, Normal gait, and No involuntary motions. ASSESSMENT/PLAN: 1. Near syncope - ICD9: 780.2, ICD10: R55 Suspect related to hypoglycemia and/or possible low BP associated. Recommend increase (more content not included)...[facility] 10-17-2023 History of Present illness Narrative* Rayo Nielson PA-C - 10/17/2023 11:55 AM EDT 10/17/2023 Patient presents with: Low Blood Sugar: Possibly d/t feeling like syncope, out of breath & vomiting with relief post juice intake x last 2 days SUBJECTIVE: This is a 33 year old that is here today for Complaint(s) of near syncopal episode yesterday morning. States she hadn't eaten anything, was in the shower and started to feel lightheaded and nauseous. She did vomit twice and then after drinking some juice symptoms completely resolved. Noassociated numbness/tingling, head trauma, SOB, chest, worst CROCKETT of life. Similar to symptoms of hypoglycemia she's had in the past. Admits to not eating regular meals, skips breakfast. . Tells me she is on metroprolol 25 mg once daily for intermittent elevated BP. States she used to take metroprolol BID but BP was still spiking to 170. Has not had any symptoms prior to 2 days ago. She follows with cardiology-had a work up for MENSAH negative. Denies any current symptoms of dizziness, nausea, abdominal pain, urinary symptoms, chance of , chest pain, SOB, palpitations. Had a DNC 2 weeks ago, has been having heavy menses. Last Hgb on 10/02 was 11.9. Scheduled for hysterectomy in the next couple months. States she always had low BP prior to last and it's normal for her to have orthostatic.No active vomiting, diarrhea. Last 5 Encounter BP Readings: Date: BP: 10/17/2023 89/62 08/10/2023 105/76 10/27/2022 100/72 05/27/2021 100/60 05/03/2021 114/60] PAST MEDICAL HISTORY Diagnosis Date Anemia Anxiety Arrhythmia Bipolar affect, depressed (HCC) Chlamydia 05/2009 DJD (degenerative joint disease) GERD (gastroesophageal reflux disease) 09/18/2015 Herpes simplex virus (HSV) infection HGSIL (high grade squamous intraepithelial lesion) on Pap smear of cervix 2016 History of Helicobacter pylori infection 09/18/2015 IBS (irritable bowel syndrome) 2018 Interstitial cystitis 2019 MVP (mitral valve prolapse) Orthostatic hypotension 09/18/2015 Palpitations Paroxysmal supraventricular tachycardia (HCC) 09/18/2015 depression PVC (premature ventricular contraction) 09/18/2015 Seizure (HCC) Seizures (HCC) Syncope ALLERGIES Cough Syrup [Guaifenesin], Flagyl [Metronidazole Hcl], Antidepressants [Tricyclic Antidepressants And Tricyclic Compounds], Dog Dander, and Lactose MEDICATIONS Current Outpatient Medications Medication Sig metoprolol succinate ER (TOPROL XL) 25 mg 24 hr tablet Take 1 tablet by mouth once daily. LORazepam (ATIVAN) 1 mg tablet Take 1 tablet by mouth every 12 hours as needed for anxiety. Lactobacillus acidophilus (PROBIOTIC ORAL) Take 2 tablets by mouth once daily. gabapentin (NEURONTIN) 300 mg capsule Take 1 capsule by mouth three times a day for 90 days. escitalopram oxalate (LEXAPRO) 20 mg tablet Take 1 tablet by mouth once daily. promethazine (PHENERGAN) 12.5 mg tablet Take 1 tablet by mouth every 6 hours as needed. (Patient not taking: Reported on 10/17/2023) valACYclovir (VALTREX) 500 mg tablet Take 1 tablet by mouth once daily. (Patient not taking: Reported on 10/17/2023) No current facility-administered medications for this visit. SOCIAL HISTORY Social History Tobacco Use Smoking status: Former Packs/day: 1.00 Years: 17.00 Additional pack years: 0.00 Total pack years: 17.00 Types: Cigarettes Quit date: 01/22/2021 Years since quittin.7 Smokeless tobacco: Never Vaping Use Vaping Use: current everyday user Substance Use Topics Alcohol use: No Drug use: No REVIEW OF SYSTEMS See HPI OBJECTIVE: BP 89/62 (BP Site: Right Arm, BP Position: Sitting, BP Cuff Size: Large Adult) Pulse 94 Resp 16 Wt 79.2 kg (174 lb 9.6 oz) LMP 10/03/2023 (Approximate) SpO2 98% BMI 28.18 kg/m APPEARANCE Well appearing, alert, in no acute distress, well-hydrated, well nourished. EYES PERRLA, conjunctiva and sclera normal. EARS External ears normal, canals clear NOSE/SINUS Nares normal. Septum midline. Mucosa normal. No drainage or sinus tenderness. THROAT normal, no erythema NECK Supple, no adenopathy; thyroid symmetric, normal size, no bruits HEART RRR with normal S1 and S2, no murmurs, no gallops, no JVD appreciated LUNG clear to auscultation ABDOMEN bowel sounds normoactive, no bruits, soft, non-tender, non-distended, without organomegaly or palpable masses, no tenderness to palpation EXTREMITIES Extremities normal, No deformities, No skin discoloration, No edema, and Normal pulses bilaterally. NEURO Awake, alert and oriented x 3, Cranial nerves II-XII grossly intact, Reflexes symmetrical, Normal gait, and No involuntary motions. ASSESSMENT/PLAN: 1. Near syncope - ICD9: 780.2, ICD10: R55 Suspect related to hypoglycemia and/or possible low BP associated. Recommend increase fluid intake, small frequent meals. Do not skip meals or breakfast. Check labs Recommend f/u with cardiology to reevaluate BP control. She is hesitant to make any adjustments to the metoprolol at this time. - COMPLETE BLOOD COUNT AND DIFFERENTIAL - BASIC METABOLIC PANEL - THYROID STIMULATING HORMONE - HEMOGLOBIN A1C Reviewed red flags and when to seek care sooner in ED The patient indicates understanding of these issues and agrees with the plan. Rayo Nielson PA-C documented [facility] encounter[facility]04-30-[facility] Procedure [facility] Miscellaneous Notes* Telephone Encounter - Yue Genao Ma - 08/11/2023 8:42 AM EST See pt message regarding supplement and if okay to take. Requesting refill on Gabapentin. Update ptwith response regarding supplement and when Rx has been sent in. Last rx: 04/10/23 #90 w/2. Last OV: 04/10/23 Next OV: No upcoming appt Yue Genao Ma documented in this encounterGalion [facility]03-07-2024 History of Present illness Narrative* Roberto Andrea APRN.EMAIL DESIGNER - 08/10/2023 11:45 AM EST Subjective HPI HPI Que Escobar is a 33 year old female who presents today for CC of nausea, vomiting, body aches, left abd discomfort. This started 1 day ago. Has tried nothing for relief. Symptoms are worsened by nothing. 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 Denies possibility of being . .Patient presents with: Nausea & Vomiting: Body aches, pain in left side, front x 1 day PAST MEDICAL HISTORY Diagnosis Date Anemia Anxiety Arrhythmia Bipolar affect, depressed (HCC) Chlamydia 05/2009 DJD (degenerative joint disease) GERD (gastroesophageal reflux disease) 09/18/2015 Herpes simplex virus (HSV) infection HGSIL (high grade squamous intraepithelial lesion) on Pap smear of cervix 2015 History of Helicobacter pylori infection 09/18/2015 IBS (irritable bowel syndrome) 2018 Interstitial cystitis 2018 MVP (mitral valve prolapse) Orthostatic hypotension 09/18/2015 Palpitations Paroxysmal supraventricular tachycardia (HCC) 09/18/2015 depression PVC (premature ventricular contraction) 09/18/2015 Seizure (HCC) Seizures (HCC) Syncope PAST SURGICAL HISTORY Procedure Laterality Date COLONOSCOPY FLX DX W/COLLJ SPEC WHEN PFRMD 11/21/2013 Colonoscopy & EGD COLONOSCOPY FLX DX W/COLLJ SPEC WHEN PFRMD 07/20/2017 Colonoscopy CYSTOSCOPY jul 2018 ESOPHAGOGASTRODUODENOSCOPY TRANSORAL DIAGNOSTIC 07/20/2017 EGD ESOPHAGOGASTRODUODENOSCOPY TRANSORAL DIAGNOSTIC 08/08/2018 EGD LAPAROSCOPY SURG CHOLECYSTECTOMY 09/14/2009 LEEP PROCEDURE (PRINT [employer]ISH[employer] DEPT)_*[place] 09/09/2015 SVT ABLATION 05/2015 procedure was incomplete and did not work per patient- records requested ALLERGIES Cough Syrup [Guaifenesin], Flagyl [Metronidazole Hcl], Antidepressants [Tricyclic Antidepressants And Tricyclic Compounds], Dog Dander, and Lactose MEDICATIONS valACYclovir (VALTREX) 500 mg tablet Take 1 tablet by mouth once daily. escitalopram oxalate (LEXAPRO) 20 mg tablet Take 1 tablet by mouth once daily. LORazepam (ATIVAN) 1 mg tablet Take 1 tablet by mouth two times a day as needed for anxiety for up to 90 days. gabapentin (NEURONTIN) 300 mg capsule Take 1 capsule by mouth three times a day for 90 days. FAMILY HISTORY Problem Relation Age of Onset Psychiatry Mother Depression Thyroid Mother No Known Problems Father No Known Problems Sister No Known Problems Sister Seizures Sister Multiple Sclerosis Sister No Known Problems Brother No Known Problems Brother No Known Problems Brother Arthritis Maternal Grandmother Arthritis Maternal Grandfather Hypertension Maternal Grandfather Lipids Maternal Grandfather No Known Problems Paternal Grandmother No Known Problems Daughter No Known Problems Daughter No Known Problems Son No Known Problems Son Alcohol/Drug Maternal Uncle Alcohol/Drug Maternal Uncle Alcohol/Drug Maternal Uncle Alcohol/Drug Maternal Uncle Social History Tobacco Use Smoking status: Former Packs/day: 1.00 Years: 17.00 Additional pack years: 0.00 Total pack years: 17.00 Types: Cigarettes Quit date: 01/22/2021 Years since quittin.5 Smokeless tobacco: Never Vaping Use Vaping Use: current everyday user Substance Use Topics Alcohol use: No Drug use: No Review of Systems Constitutional: Positive for fever. Respiratory: Negative for cough and shortness of breath. Cardiovascular: Negative for chest pain. Gastrointestinal: Negative for blood in stool and diarrhea. Skin: Negative for itching and rash. Objective Blood pressure 105/76, pulse 82, temperature 36.3 C (97.4 F), resp. rate 18, weight 77.6 kg (171 lb1.2 oz), last menstrual period 08/10/2023, SpO2 99%, not currently . Physical Exam Constitutional: General: She is not in acute distress. Appearance: Normal appearance. She is not toxic-appearing. Cardiovascular: Rate and Rhythm: Normal rate and regular rhythm. Heart sounds: Normal heart sounds. Pulmonary: Effort: Pulmonary effort is normal. Breath sounds: Normal breath sounds. Abdominal: General: Bowel sounds are normal. Palpations: Abdomen is soft. Tenderness: There is no abdominal tenderness. Skin: General: Skin is warm and dry. ASSESSMENT/PLAN: 1. Viral syndrome - ICD9: 079.99, ICD10: B34.9 (primary diagnosis) - Discussed viral etiology and rationale for treatment. - Symptomatic treatment with prn analgesia - Supportive care with fluids and rest - INFLUENZA A&B MOLECULAR (POC) - PROMETHAZINE 12.5 MG TABLET 2. Urinary frequency - ICD9: 788.41, ICD10: R35.0 acute - UA positive for hematuria, currently on menstrual cycle - Patient education for prevention given - UA DIP, URINE (POC) Roberto Andrea APRN.BONITA documented in this encounterGal[facility] Hospital02-06-2024 Miscellaneous Notes* Telephone Encounter - Davide Chao MD - 07/11/2023 11:44 AM EST OK to refill as ordered Davide Chao MD * Telephone Encounter - Bere Hughes LPN - 07/11/2023 9:56 AM EST Patient has been identified by name and date of : Yes, Patient phones for refill(s): Requested Prescriptions Pending Prescriptions Disp Refills valACYclovir (VALTREX) 500 mg tablet 30 tablet 5 Sig: Take 1 tablet by mouth once daily. escitalopram oxalate (LEXAPRO) 20 mg tablet Sig: Take 1 tablet by mouth once daily. LORazepam (ATIVAN) 1 mg tablet 60 tablet 2 Sig: Take 1 tablet by mouth two times a day as needed for anxiety for up to 90 days. Date of last office visit in primary care: 10/27/2022 Date of next office visit in primary care: Visit date not found Please advise. Thank you. Bere Hughes LPN. documented in this encounterGalion Hospital01-03-2024 Hospital Discharge instructions* Discharge Instructions* Son Gunderson MD - 06/07/2023 12:32 AM EST Follow-up with your AGRICULTURAL INSPECTOR documented in [facility] encounterWilson [facility] Work Phone: [phone]) 709-933912-04-2023 Miscellaneous Notes* Telephone Encounter - Davide Chao MD - 05/08/2023 1:38 PM EST OK to refill as ordered Davide Chao MD * Telephone Encounter - Vera Lewis Ma - 05/08/2023 1:22 PM EST Last office visit: 04/10/23 F/u scheduled: none Last refilled on: Ativan #60 with 0 refills on 04/10/23 Vera Lewis Ma * Telephone Encounter - Laura Vivas - 05/08/2023 12:53 PM EST Patient has been identified by name and date of : Yes Requested Prescriptions Pending Prescriptions Disp Refills LORazepam (ATIVAN) 1 mg tablet 60 tablet 0 Sig: Take 1 tablet by mouth two times a day as needed for anxiety for up to 30 days. RX INSTRUCTIONS: Patient aware RX will be sent to pharmacy. No need to notify patient. Laura Craven documented in this encounterGalion Hospital11-03-2023 Miscellaneous Notes* Telephone Encounter - Vera Lewis Ma - 04/07/2023 2:55 PM EDT Pt notified and voiced understanding. Vera Lewis MA * Telephone Encounter - Davide Chao MD - 04/07/2023 2:24 PM EDT Stay on the same regimen until her appt on Monday Davide Chao MD * Telephone Encounter - Omer Cowan RN - 04/07/2023 8:52 AM EDT Patient reports she just had a baby Mar 10. Reports she is having issues with depressed moods. Moods are all over the place. Her OB ([facility]) increased her lexapro from 10 mg to 20 mg 3 weeks ago b/c her BP's were 150's/100's. Reports pcp prescribed klonopin 1 mg bid prn, since ativan was not doing enough. Reports she is taking it twice daily. Reports her BP's are normal when she takes klonopin- running 113/76, but her depression is not improved. Patient has appt with pcp on Monday. Asking if she should change anything before that appt? Please advise patient. documented in this encounterGalion Hospital10-24-2023 History of Present illness Narrative* Davide Chao MD - 03/28/2023 8:00 AM EDT Chief Complaint Patient presents with: restart medication: For anxiety/depression HPI: This Team Access Model visit is a virtual/phone encounter. It required patient-provider interaction for the medical decision making as documented below. Patient was offered a virtual/telemedicine appointment in lieu of an office visit due to recommendations to reduce patient exposure to COVID-19. Patient is aware of limitations of performing the visit without a face to face visit in the office setting and agrees. I have communicated my name and active licensure. The patient's identity and physical location wereverified at the time of this visit. Either the patient or their legal underwriting sales representative has been informed of the risks and benefits of -- and alternatives to -- treatment through a remote evaluation andconsents to proceed with the evaluation remotely. Two weeks . Has had increased stress during her , with increased depression and anxiety. She was on lexapro 10 mg daily and prn ativan. Lexapro recently increased to 20 mg daily. Does not feel that the ativan does much for her. Working with counselor. Lab abnormalities on recent blood work - elevated BNP. Has some swelling and elevated BP, anemia, elevated liver tests. Past medical history, appointments, medications, allergies reviewed. Previous Medical History PAST MEDICAL HISTORY Diagnosis Date Anemia Anxiety Arrhythmia Bipolar affect, depressed (HCC) Chlamydia 05/2009 DJD (degenerative joint disease) GERD (gastroesophageal reflux disease) 09/18/2015 Herpes simplex virus (HSV) infection HGSIL (high grade squamous intraepithelial lesion) on Pap smear of cervix 2015 History of Helicobacter pylori infection 09/18/2015 IBS (irritable bowel syndrome) 2017 Interstitial cystitis 2018 MVP (mitral valve prolapse) Orthostatic hypotension 09/18/2015 Palpitations Paroxysmal supraventricular tachycardia (HCC) 09/18/2015 depression PVC (premature ventricular contraction) 09/18/2015 Seizure (HCC) Seizures (HCC) Syncope Previous Surgical History PAST SURGICAL HISTORY Procedure Laterality Date COLONOSCOPY FLX DX W/COLLJ SPEC WHEN PFRMD 11/21/2013 Colonoscopy & EGD COLONOSCOPY FLX DX W/COLLJ SPEC WHEN PFRMD 07/20/2017 Colonoscopy CYSTOSCOPY jul 2018 ESOPHAGOGASTRODUODENOSCOPY TRANSORAL DIAGNOSTIC 07/20/2017 EGD ESOPHAGOGASTRODUODENOSCOPY TRANSORAL DIAGNOSTIC 08/08/2018 EGD LAPAROSCOPY SURG CHOLECYSTECTOMY 09/14/2009 LEEP PROCEDURE ([employer] DEPT)_*[place] 09/09/2015 SVT ABLATION 05/2015 procedure was incomplete and did not work per patient- records requested Family History FAMILY HISTORY Problem Relation Age of Onset Psychiatry Mother Depression Thyroid Mother No Known Problems Father No Known Problems Sister No Known Problems Sister Seizures Sister Multiple Sclerosis Sister No Known Problems Brother No Known Problems Brother No Known Problems Brother Arthritis Maternal Grandmother Arthritis Maternal Grandfather Hypertension Maternal Grandfather Lipids Maternal Grandfather No Known Problems Paternal Grandmother No Known Problems Daughter No Known Problems Daughter No Known Problems Son No Known Problems Son Alcohol/Drug Maternal Uncle Alcohol/Drug Maternal Uncle Alcohol/Drug Maternal Uncle Alcohol/Drug Maternal Uncle Patient Allergies ALLERGIES Allergen Reactions Cough Syrup [Guaife* Other: See Comments Messes with heart rate/beat Flagyl [Metronidazo* GI Upset nausea, vomiting and cold sweats lightheaded like going to pass out. Antidepressants [Tr* Other: See Comments Suicidal thoughts Dog Dander Other: See Comments Positive allergy skin test Lactose GI Upset Current Medications Current Outpatient Medications on File Prior to Visit Medication Sig omeprazole (PRILOSEC) 40 mg capsule Take 1 capsule by mouth once daily. valACYclovir (VALTREX) 500 mg tablet Take 1 tablet by mouth once daily. escitalopram oxalate (LEXAPRO) 10 mg tablet Take 1 tablet by mouth once daily. No current facility-administered medications on file prior to visit. Social History Social History Tobacco Use Smoking status: Former Packs/day: 1.00 Years: 17.00 Additional pack years: 0.00 Total pack years: 17.00 Types: Cigarettes Quit date: 01/22/2021 Years since quittin.1 Smokeless tobacco: Never Vaping Use Vaping Use: current everyday user Substance Use Topics Alcohol use: No Drug use: No EXAM: LMP 01/07/2021 (Exact Date) Health Maintenance List Hepatitis B Vaccine(1 of 3 - 3-dose series) Never done Covid-19 Vaccine(1) Never done Influenza Vaccine(1) due on 02/03/2023 Pap Testing due on 01/07/2026 HPV Testing due on 01/07/2026 DTaP,Tdap,Td Vaccine(2 - Td or Tdap) due on 05/04/2026 Hepatitis C Screening Completed HIV Screening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 dissolve on their own, you do not need to come back to have them removed Stitches take about 2 weeks to heal. You may feel tightness, pulling, or itching as theyheal Breast Care - Lactating Proper latch = prevention of problems After feeding, manually express some colostrum/milk, or apply lanolin ointment and gently rub on to nipple and areola Avoid using drying soaps in the shower, dry nipples can crack Wear a supportive bra Airing out is good practice Breast Care - Dry Breast Try to eliminate any extra stimulation to the breasts/nipples Wear a supportive bra (sports bra is best) Keep your back to running water in the shower Resist the temptation to check for milk. Any time milk leaks out, it signals hormones to make more milk If your milk starts tocome in, do not pump to relieve discomfort. Instead, use cold compresses such as ice packs, cabbageleaves (rinse clean and snap the veins of the leaf and place in your bra,) or frozen vegetables (never consume after thawing) Apply cold compress to breast for 10-15 minutes each time the baby takes a bottleWhen to Call Provider - Other Persistent pain Dizziness, faintness Breasts, perineum, or legs that are hot, red, painful, or swollen Nausea and/or vomiting Pain, burning, frequency, or difficulty peeing Anything that seems abnormal or that you may have questions about Any difficulty please call [phone] to speak with a peoplesoft consultant.Please join our mom's support group, which is the second Monday of every month from [phone] in the Birthing & Women's Unit, 4th floor [facility]. No registration required.[facility]* Attachments The following attachments cannot be sent through Care Everywhere. * Back: Strain (Jordanian) [facility] Work Phone: Hospital Discharge instructions Additional Instructions Follow up with [facility] on February 02 as previously scheduled. You have an appointment for a surgical consultation with Dr. Morales on February 01 at 9:45am. His office is located in the Outpatient Pavilion at [address] [place] [address], [address]. Eat potassium-rich foods when able. A prescription for a potassium supplement will be sent to your pharmacy.[facility] Work Phone: Instructions* Attachments The following attachments cannot be sent through Care Everywhere. * Otitis Media (Jordanian) documented in this encounterOhioHealthReason for referral (narrative)* Consultation (Routine) - Pending Review Specialty Diagnoses / Procedures Referred By Contac t Referred To Contact Obstetrics and Gynecology Procedures TX OFFICE/OUTPATIENT NEW HIGH MDM 60-74 MINUTES Cheyanne Izaguirre, [address] [place] [address] Referral ID Status Reason Start Date Expiration Date Visits Requested Visits Authorized [id number] Pending Review Specialty Services Required 03/13/2023 09/09/2023 1 1 [facility] Work Phone: Reason for referral (narrative)No reason for referral information availableWMem[facility] Work Phone: Reason for visit Narrative* Initial Evaluation . Low back pain/Neck pain. 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 [address] [place] [address] Phone: tel: fax: [facility] [address] [place] [address] Referral ID Status Reason Start Date Expiration Date V isits Requested Visits Authorized [id number] Closed Auto-Generate d Referral 09/05/2024 09/05/2025 1 1 [facility] Summary Purpose Family History Unknown Family Member Name Dates Details Healthy female: Mother Status:Active Family history of malignant neoplasm: Father(V16.9, Z80.9) Status:Active Family history of multiple s clerosis: Sister(V17.2, Z82.0) Status:Active Unknown Family Member Name Dates Details Healthy female: Mother Status:Active Family history of malignant neoplasm: Father(V16.9, Z80.9) Status:Active Family history of multiple s clerosis: Sister(V17.2, Z82.0) Status:Active Unknown Family Member Name Dates Details Healthy female: Mother Status:Active Family history of malignant neoplasm: Father(V16.9, Z80.9) Status:Active Family history of multiple s clerosis: Sister(V17.2, Z82.0) Status:Active Unknown Family Member Name Dates Details Healthy female: Mother Status:Active Family history of malignant neoplasm: Father(V16.9, Z80.9) Status:Active Family history of multiple s clerosis: Sister(V17.2, Z82.0) Status:Active Unknown Family Member Name Dates Details Healthy female: Mother Status:Active Family history of malignant neoplasm: Father(V16.9, Z80.9) Status:Active Family history of multiple s clerosis: Sister(V17.2, Z82.0) Status:Active Unknown Family Member Name Dates Details Healthy female: Mother Status:Active Family history of malignant neoplasm: Father(V16.9, Z80.9) Status:Active Family history of multiple s clerosis: Sister(V17.2, Z82.0) Status:Active Unknown Family Member Name Dates Details Healthy female: Mother Status:Active Family history of malignant neoplasm: Father(V16.9, Z80.9) Status:Active Family history of multiple s clerosis: Sister(V17.2, Z82.0) Status:Active Unknown Family Member Name Dates Details Healthy female: Mother Status:Active Family history of malignant neoplasm: Father(V16.9, Z80.9) Status:Active Family history of multiple s clerosis: Sister(V17.2, Z82.0) Status:Active Unknown Family Member Name Dates Details Family history of multiple s clerosis: Sister(V17.2, Z82.0) Status:Active Family history of malignant neoplasm: Father(V16.9, Z80.9) Status:Active Healthy female: Mother Status:Active Unknown Family Member Name Dates Details Healthy female: Mother Status:Active Family history of malignant neoplasm: Father(V16.9, Z80.9) Status:Active Family history of multiple s clerosis: Sister(V17.2, Z82.0) Status:Active Unknown Family Member Name Dates Details Healthy female: Mother Status:Active Family history of malignant neoplasm: Father(V16.9, Z80.9) Status:Active Family history of multiple s clerosis: Sister(V17.2, Z82.0) Status:Active Unknown Family Member Name Dates Details Healthy female: Mother Status:Active Family history of malignant neoplasm: Father(V16.9, Z80.9) Status:Active Family history of multiple s clerosis: Sister(V17.2, Z82.0) Status:Active Unknown Family Member Name Dates Details Healthy female: Mother Status:Active Family history of malignant neoplasm: Father(V16.9, Z80.9) Status:Active Family history of multiple s clerosis: Sister(V17.2, Z82.0) Status:Active Unknown Family Member Name Dates Details Healthy female: Mother Status:Active Family history of malignant neoplasm: Father(V16.9, Z80.9) Status:Active Family history of multiple s clerosis: Sister(V17.2, Z82.0) Status:Active Unknown Family Member Name Dates Details Healthy female: Mother Status:Active Family history of malignant neoplasm: Father(V16.9, Z80.9) Status:Active Family history of multiple s clerosis: Sister(V17.2, Z82.0) Status:Active Advance Directives Documents on File Type Date Recorded 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 Advance Directives and Livin g Will 09/01/2018 5:16 PM Documents on File Type Date Recorded 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 Advance Directives and Livin g Will 09/01/2018 5:16 PM Latest Code Status on File Code Status Date Activated Date Inactivated Comments Full Code - Unverified 09/26/2020 8:24 PM 09/26/2020 10: 50 PM Documents on File Type Date Recorded 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 Advance Directives and Livin g Will 09/27/2020 5:16 PM Documents on File Type Date Recorded 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 Advance Directives and Livin g Will 05/17/2021 1:51 PM Latest Code Status on File Code Status Date Activated Date Inactivated Comments Full Code - Unverified 09/26/2020 8:24 PM 09/26/2020 10: 50 PM Documents on File Type Date Recorded 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 Advance Directive(s) Advance Directive(s) 10/17/2018 4:46 PM Advance Directive(s) 08/31/2018 11:07 PM Advance Directive(s) 08/08/2018 2:32 PM Advance Directive(s) 07/26/2018 10:38 AM Advance Directive(s) 07/20/2017 1:06 PM Advance Directive(s) 07/19/2017 10:33 AM Advance Directive(s) 09/22/2015 9:59 AM Advance Directive(s) 09/10/2015 3:57 PM Advance Directive Response Recorded Date/ Time Advance Directives No July 1:22am Living Will No September 25, 2020 3:03pm Power of Automotive Service Consultant No September 25 3:03pm Advance Directive Response Recorded Date/ Time Advance Directives No July 2:22am Living Will No September 25, 2020 4:03pm Power of Automotive Service Consultant No September 25 4:03pm Advance Directive Response Recorded Date/ Time Advance Directives No July 2:22am Living Will No January 23 3 9:45pm Power of Automotive Service Consultant No January 23, 2 023 9:45pm Advance Directive Response Recorded Date/ Time Advance Directives No July 2:22am Living Will No March 09 3 5:42pm Power of Automotive Service Consultant No March 09, 2 023 5:42pm Advance Directive Response Recorded Date/ Time Advance Directives No July 1:22am Living Will No March 09 3 4:42pm Power of Automotive Service Consultant No March 09, 2 023 4:42pm Advance Directive Response Recorded Date/ Time Advance Directives No July 2:22am Living Will No September 21, 2023 8:57am Power of Automotive Service Consultant No September 20 8:57am Advance Directive Response Recorded Date/ Time Advance Directives No April 10:08am Discharge Instructions * Instructions* Davide Marion PA-C - 09/01/2018 THE UROLOGIST AT [facility] STATES THAT YOUR KIDNEY STONE IS JUST ABOVE THE LEVEL OF YOUR URINARY BLADDER AND SHOULD PASS IN THE NEAR FUTURE. IF YOU ARE STILL EXPERIENCING SYMPTOMS ON MONDAY MORNING YOU MUST CONTACT YOUR UROLOGIST AT [facility]. OUR UROLOGIST ALSO STATES THAT YOU SHOULD RETURN TO THE EMERGENCY DEPARTMENT IF YOU DEVELOP A FEVER. YOU SHOULD TAKE YOUR TEMPERATURE AT HOME ON A REGULAR BASIS TO SEE IF YOU ARE DEVELOPING A FEVER THAT YOU MAY NOT NOTICE. * Attachments The following attachments cannot be sent through Care Everywhere. * Kidney Stone (Jordanian) in this encounter Assessments Diagnosis Kidney stone on left side- Primary Diagnosis Cervical pain- Primary Cervicalgia Reason for Referral Status Reason Specialty Diagnoses / Procedures Referred By Contact Referred To Contact Authorized Neurosurgery Diagnoses Cervical pain Davide Chao MD [address] [place] [address] [facility] [address] [place] [address] Specialty Diagnoses / Procedures Referred By Contac t Referred To Contact Cardiology Diagnoses Palpitations Procedures Extended Holter Monitor (3-7 days) Yuri Ramos MD [address] [place] [address] Referral ID Status Reason Start Date Expiration Date Visits Re quested Visits Authorized [id number] Closed 05/17/2021 05/17/2022 1 1 Specialty Diagnoses / Procedures Referred By Contac t Referred To Contact Cardiology Diagnoses Palpitations Procedures Echocardiogram complete Yuri Ramos MD [address] [place] [address] Referral ID Status Reason Start Date Expiration Date V isits Requested Visits Authorized [id number] New Request 05/17/2021 05/17/2022 1 1 Specialty Diagnoses / Procedures Referred By Contac t Referred To Contact Radiology Diagnoses , unspecified gestational age Procedures US OB TRANSVAGINAL Yaniv Pederson MD [address] [place] [address] Referral ID Status Reason Start Date Expiration Date Visits Re quested Visits Authorized [id number] Open 07/26/2022 07/26/2023 1 1 Specialty Diagnoses / Procedures Referred By Contac t Referred To Contact [facility] Diagnoses Chronic bilateral low back pain with left-sided sciatica Procedures CONSULT TO PHYSICAL THERAPY PHYSICAL THERAPY EVALUATION HIGH COMPLEX 45 MINS Davide Chao MD [address] [place] [address] [facility] [place] [facility] [place] [address] Referral ID Status Reason Start Date Expiration Date Visits Requested Visits Authorized [id number] Pending Review Auto-Generat ed Referral 10/10/2022 10/10/2023 1 1 Specialty Diagnoses / Procedures Referred By Elder merritt Referred To Contact Cardiology Diagnoses History of PSVT (paroxysmal supraventricular tachycardia) Procedures CONSULT TO CARDIOLOGY OFFICE/OUTPATIENT NEW HIGH MDM 60-74 MINUTES Davide Chao MD [address] [place] [address] Referral ID Status Reason Start Date Expiration Date Visits Requested Visits Authorized [id number] Authorized PCP Requested Referral 10/10/2022 10/10/2023 1 1 Specialty Diagnoses / Procedures Referred By Elder merritt Referred To Contact Cardiovascular Medicine Diagnoses Near syncope Tachycardia Procedures HOLTER MONITOR - HOME APPLIANCE TECH Alina Alvarado MD [address] [facility] 1st [place] [address] [facility] Office Clinician [address] [place] [address] Referral ID Status Reason Start Date Expiration Date Visits Re quested Visits Authorized [id number] Closed 05/24/2023 06/17/2024 1 1 Specialty Diagnoses / Procedures Referred By Elder merritt Referred To Contact Diagnoses ADHD (attention deficit hyperactivity disorder), combined type Davide Chao MD [address] [place] [address] Referral ID Status Reason Start Date Expiration Date V isits Requested Visits Authorized [id number] Pending Review 1 1 Chief Complaint Patient is here for her 4 week post visit. Patient had a vaginal delivery of a male on 10/12/21 at 39 weeks 5 days, infant weighted 8 # 2 oz. Patient is currently bottle feeding. Patientwould not like to discuss control options. Patient has resumed sexual activity. Patient has no other concerns at this time. Chief Complaint and Reason for Visit Chief Complaint EORDERS Rhogam Inj VIABILITY Chief Complaint EORDERS Rhogam Inj VIABILITY NOB LMP 06/16 PAP, Reason for Visit Depression affecting Herpes simplex infection during , antepartum [id number] History of pre-eclampsia Rh negative status during Spotting Supervision of high risk , antepartum Chief Complaint EORDERS Rhogam Inj VIABILITY NOB LMP 1/12 PAP, 14 WK OB Reason for Visit Depression affecting Herpes simplex infection during , antepartum [id number] History of pre-eclampsia Rh negative status during Spotting Supervision of high risk , antepartum Depression affecting Herpes simplex infection during , antepartum [id number] History of pre-eclampsia Rh negative status during Spotting Supervision of high risk , antepartum Chief Complaint EORDERS Rhogam Inj VIABILITY NOB LMP 1/12 PAP, 14 WK OB 19 wk ob ANATOMY 18-20 WEEKS Reason for Visit Depression affecting Herpes simplex infection during , antepartum [id number] History of pre-eclampsia Rh negative status during Spotting Supervision of high risk , antepartum Depression affecting Herpes simplex infection during , antepartum [id number] History of pre-eclampsia Rh negative status during Spotting Supervision of high risk , antepartum Depression affecting Herpes simplex infection during , antepartum [id number] History of pre-eclampsia Rh negative status during Spotting Supervision of high risk , antepartum Chief Complaint 14 WK OB 19 wk ob ANATOMY 18-20 WEEKS rhogam 23 WK OB 27 WK OB/GLUCOSE 30 WK OB R/O UTI R/O UTI palpitations Reason for Visit Depression affecting Herpes simplex infection during , antepartum [id number] History of pre-eclampsia Rh negative status during Spotting Supervision of high risk , antepartum Depression affecting Herpes simplex infection during , antepartum [id number] History of pre-eclampsia Rh negative status during Spotting Supervision of high risk , antepartum Rh negative status during Depression affecting Herpes simplex infection during , antepartum [id number] History of pre-eclampsia Rh negative status during Spotting Supervision of high risk , antepartum Chronic headache Arthritis pain, hip Depression affecting Herpes simplex infection during , antepartum [id number] History of pre-eclampsia Rh negative status during Sciatic leg pain Supervision of high risk , antepartum Chronic headache Abnormal glucose Back pain Depression affecting Herpes simplex infection during , antepartum [id number] History of pre-eclampsia Rh negative status during Supervision of high risk , antepartum Vaginal discharge during Chronic headache UTI in Chief Complaint 19 wk ob ANATOMY 18-20 WEEKS rhogam 23 WK OB 27 WK OB/GLUCOSE 30 WK OB R/O UTI R/O UTI palpitations DORSALGIA, 23 WKS /NST Reason for Visit Depression affecting Herpes simplex infection during , antepartum [id number] History of pre-eclampsia Rh negative status during Spotting Supervision of high risk , antepartum Rh negative status during Depression affecting Herpes simplex infection during , antepartum [id number] History of pre-eclampsia Rh negative status during Spotting Supervision of high risk , antepartum Chronic headache Arthritis pain, hip Depression affecting Herpes simplex infection during , antepartum [id number] History of pre-eclampsia Rh negative status during Sciatic leg pain Supervision of high risk , antepartum Chronic headache Abnormal glucose Back pain Depression affecting Herpes simplex infection during , antepartum [id number] History of pre-eclampsia Rh negative status during Supervision of high risk , antepartum Vaginal discharge during Chronic headache UTI in Chief Complaint 19 wk ob ANATOMY 18-20 WEEKS rhogam 23 WK OB 27 WK OB/GLUCOSE 30 WK OB R/O UTI R/O UTI palpitations DORSALGIA, 23 WKS /NST DORSALGIA, 23 WKS /NST POSSIBLE ERCP WELL BEING 32 WK OB 34 WK OB NST NST Reason for Visit Depression affecting Herpes simplex infection during , antepartum [id number] History of pre-eclampsia Rh negative status during Spotting Supervision of high risk , antepartum Rh negative status during Depression affecting Herpes simplex infection during , antepartum [id number] History of pre-eclampsia Rh negative status during Spotting Supervision of high risk , antepartum Chronic headache Arthritis pain, hip Depression affecting Herpes simplex infection during , antepartum [id number] History of pre-eclampsia Rh negative status during Sciatic leg pain Supervision of high risk , antepartum Chronic headache Abnormal glucose Back pain Depression affecting Herpes simplex infection during , antepartum [id number] History of pre-eclampsia Rh negative status during Supervision of high risk , antepartum Vaginal discharge during Chronic headache UTI in Depression affecting Elevated bilirubin Hypokalemia Pruritus of Supervision of high risk , antepartum Elevated bilirubin Abnormal glucose Arthritis pain, hip Back pain Chlamydia infection affecting Cholestasis during Depression affecting Elevated bilirubin Herpes simplex infection during , antepartum [id number] History of pre-eclampsia Hx of cholecystectomy Hypokalemia Pruritus of Rh negative status during Sciatic leg pain Spotting Supervision of high risk , antepartum UTI in Vaginal discharge during Chronic headache Abnormal glucose Arthritis pain, hip Back pain Chlamydia infection affecting Depression affecting Elevated bilirubin Herpes simplex infection during , antepartum [id number] History of pre-eclampsia Hx of cholecystectomy Hypokalemia Pruritus of Rh negative status during Sciatic leg pain Spotting Supervision of high risk , antepartum Vaginal discharge during Chronic headache Chief Complaint ANATOMY 18-20 WEEKS rhogam 23 WK OB 27 WK OB/GLUCOSE 30 WK OB R/O UTI R/O UTI palpitations DORSALGIA, 23 WKS /NST DORSALGIA, 23 WKS /NST POSSIBLE ERCP WELL BEING 32 WK OB 34 WK OB NST NST OBSTRUCTION OF BILE DUCT IN OBSTRUCTION OF BILE DUCT IN Reason for Visit Rh negative status d uring Depression affecting Herpes simplex infection during , antepartum [id number] History of pre-eclampsia Rh negative status during Spotting Supervision of high risk , antepartum Chronic headache Arthritis pain, hip Depression affecting Herpes simplex infection during , antepartum [id number] History of pre-eclampsia Rh negative status during Sciatic leg pain Supervision of high risk , antepartum Chronic headache Abnormal glucose Back pain Depression affecting Herpes simplex infection during , antepartum [id number] History of pre-eclampsia Rh negative status during Supervision of high risk , antepartum Vaginal discharge during Chronic headache UTI in Depression affecting Elevated bilirubin Hypokalemia Pruritus of Supervision of high risk , antepartum Elevated bilirubin Abnormal glucose Arthritis pain, hip Back pain Chlamydia infection affecting Cholestasis during Depression affecting Elevated bilirubin Herpes simplex infection during , antepartum [id number] History of pre-eclampsia Hx of cholecystectomy Hypokalemia Pruritus of Rh negative status during Sciatic leg pain Spotting Supervision of high risk , antepartum UTI in Vaginal discharge during Chronic headache Abnormal glucose Arthritis pain, hip Back pain Chlamydia infection affecting Depression affecting Elevated bilirubin Herpes simplex infection during , antepartum [id number] History of pre-eclampsia Hx of cholecystectomy Hypokalemia Pruritus of Rh negative status during Sciatic leg pain Spotting Supervision of high risk , antepartum Vaginal discharge during Chronic headache Chief Complaint ANATOMY 18-20 WEEKS rhogam 23 WK OB 27 WK OB/GLUCOSE 30 WK OB R/O UTI R/O UTI palpitations DORSALGIA, 23 WKS /NST DORSALGIA, 23 WKS /NST POSSIBLE ERCP WELL BEING 32 WK OB 34 WK OB NST NST OBSTRUCTION OF BILE DUCT IN OBSTRUCTION OF BILE DUCT IN HYDRONEPHROSIS, OBSTRUCT OF BILE DUCT IN 36 WK OB 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 LABOR OBSTRUCTION OF BILE DUCT IN R/O Reason for Visit Rh negative status d uring Depression affecting Herpes simplex infection during , antepartum [id number] History of pre-eclampsia Rh negative status during Supervision of high risk , antepartum Chronic headache Spotting Depression affecting Herpes simplex infection during , antepartum [id number] History of pre-eclampsia Rh negative status during Supervision of high risk , antepartum Chronic headache Arthritis pain, hip Sciatic leg pain Abnormal glucose Depression affecting Herpes simplex infection during , antepartum [id number] History of pre-eclampsia Rh negative status during Supervision of high risk , antepartum Chronic headache Back pain Vaginal discharge during UTI in Depression affecting Elevated bilirubin Supervision of high risk , antepartum Hypokalemia Pruritus of Elevated bilirubin Abnormal glucose Chlamydia infection affecting Depression affecting Elevated bilirubin Herpes simplex infection during , antepartum [id number] History of pre-eclampsia Rh negative status during Supervision of high risk , antepartum Chronic headache Arthritis pain, hip Back pain Cholestasis during Hypokalemia Pruritus of Sciatic leg pain Spotting UTI in Vaginal discharge during Abnormal glucose Chlamydia infection affecting Depression affecting Elevated bilirubin Herpes simplex infection during , antepartum [id number] History of pre-eclampsia Rh negative status during Supervision of high risk , antepartum Chronic headache Arthritis pain, hip Back pain Hypokalemia Pruritus of Sciatic leg pain Spotting Vaginal discharge during Abnormal glucose Chlamydia infection affecting Depression affecting Elevated bilirubin Herpes simplex infection during , antepartum [id number] History of pre-eclampsia Rh negative status during Social discord Sterilization Supervision of high risk , antepartum Chronic headache Hypokalemia Pruritus of Chief Complaint ANATOMY 18-20 WEEKS rhogam 23 WK OB 27 WK OB/GLUCOSE 30 WK OB R/O UTI R/O UTI palpitations DORSALGIA, 23 WKS /NST DORSALGIA, 23 WKS /NST POSSIBLE ERCP WELL BEING 32 WK OB 34 WK OB NST NST OBSTRUCTION OF BILE DUCT IN OBSTRUCTION OF BILE DUCT IN HYDRONEPHROSIS, OBSTRUCT OF BILE DUCT IN 36 WK OB 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 LABOR OBSTRUCTION OF BILE DUCT IN R/O EXTENSIVE MONITORING Reason for Visit Rh negative status d uring Depression affecting Herpes simplex infection during , antepartum [id number] History of pre-eclampsia Rh negative status during Supervision of high risk , antepartum Chronic headache Spotting Depression affecting Herpes simplex infection during , antepartum [id number] History of pre-eclampsia Rh negative status during Supervision of high risk , antepartum Chronic headache Arthritis pain, hip Sciatic leg pain Abnormal glucose Depression affecting Herpes simplex infection during , antepartum [id number] History of pre-eclampsia Rh negative status during Supervision of high risk , antepartum Chronic headache Back pain Vaginal discharge during UTI in Depression affecting Elevated bilirubin Supervision of high risk , antepartum Hypokalemia Pruritus of Elevated bilirubin Abnormal glucose Chlamydia infection affecting Depression affecting Elevated bilirubin Herpes simplex infection during , antepartum [id number] History of pre-eclampsia Rh negative status during Supervision of high risk , antepartum Chronic headache Arthritis pain, hip Back pain Cholestasis during Hypokalemia Pruritus of Sciatic leg pain Spotting UTI in Vaginal discharge during Abnormal glucose Chlamydia infection affecting Depression affecting Elevated bilirubin Herpes simplex infection during , antepartum [id number] History of pre-eclampsia Rh negative status during Supervision of high risk , antepartum Chronic headache Arthritis pain, hip Back pain Hypokalemia Pruritus of Sciatic leg pain Spotting Vaginal discharge during Abnormal glucose Chlamydia infection affecting Depression affecting Elevated bilirubin Herpes simplex infection during , antepartum [id number] History of pre-eclampsia Rh negative status during Social discord Sterilization Supervision of high risk , antepartum Chronic headache Hypokalemia Pruritus of Chief Complaint 23 WK OB 27 WK OB/GLUCOSE 30 WK OB R/O UTI R/O UTI palpitations DORSALGIA, 23 WKS /NST DORSALGIA, 23 WKS /NST POSSIBLE ERCP WELL BEING 32 WK OB 34 WK OB NST NST OBSTRUCTION OF BILE DUCT IN OBSTRUCTION OF BILE DUCT IN HYDRONEPHROSIS, OBSTRUCT OF BILE DUCT IN 36 WK OB RULE OUT LABOR OBSTRUCTION OF BILE DUCT IN R/O EXTENSIVE MONITORING EXTENSIVE MONITORING R/O LABOR R/O LABOR 38 WK OB RULE OUT LABOR RULE OUT LABOR RULE OUT LABOR RULE OUT LABOR R/O RULE OUT LABOR R/O HIGH BP R/O HIGH BP Reason for Visit Chronic headache Depression affecting Herpes simplex infection during , antepartum [id number] History of pre-eclampsia Rh negative status during Spotting Supervision of high risk , antepartum Arthritis pain, hip Chronic headache Depression affecting Herpes simplex infection during , antepartum [id number] History of pre-eclampsia Rh negative status during Sciatic leg pain Supervision of high risk , antepartum Abnormal glucose Back pain Chronic headache Depression affecting Herpes simplex infection during , antepartum [id number] History of pre-eclampsia Rh negative status during Supervision of high risk , antepartum Vaginal discharge during UTI in Depression affecting Elevated bilirubin Hypokalemia Pruritus of Supervision of high risk , antepartum Elevated bilirubin Abnormal glucose Arthritis pain, hip Back pain Chlamydia infection affecting Cholestasis during Chronic headache Depression affecting Elevated bilirubin Herpes simplex infection during , antepartum [id number] History of pre-eclampsia Hypokalemia Pruritus of Rh negative status during Sciatic leg pain Spotting Supervision of high risk , antepartum UTI in Vaginal discharge during Abnormal glucose Arthritis pain, hip Back pain Chlamydia infection affecting Chronic headache Depression affecting Elevated bilirubin Herpes simplex infection during , antepartum [id number] History of pre-eclampsia Hypokalemia Pruritus of Rh negative status during Sciatic leg pain Spotting Supervision of high risk , antepartum Vaginal discharge during Abnormal glucose Chlamydia infection affecting Chronic headache Depression affecting Elevated bilirubin Herpes simplex infection during , antepartum [id number] History of pre-eclampsia Hypokalemia Pruritus of Rh negative status during Social discord Sterilization Supervision of high risk , antepartum False labor after 37 completed weeks of gestation Abnormal glucose Chlamydia infection affecting Chronic headache Depression affecting Elevated bilirubin Herpes simplex infection during , antepartum [id number] History of pre-eclampsia Rh negative status during Social discord Sterilization Supervision of high risk , antepartum Abnormal glucose Chlamydia infection affecting Chronic headache Depression affecting Elevated bilirubin Herpes simplex infection during , antepartum [id number] History of pre-eclampsia Rh negative status during Social discord Sterilization Supervision of high risk , antepartum Status post tubal ligation Abnormal glucose Chlamydia infection affecting Chronic headache Depression affecting Elevated bilirubin Herpes simplex infection during , antepartum [id number] History of pre-eclampsia Rh negative status during Social discord Sterilization Supervision of high risk , antepartum Vaginal delivery Anxiety Depression Headache Status post tubal ligation Chief Complaint R/O LABOR R/O LABOR 38 WK OB RULE OUT LABOR RULE OUT LABOR RULE OUT LABOR RULE OUT LABOR R/O RULE OUT LABOR R/O HIGH BP R/O HIGH BP E ORDER AUB Reason for Visit Abnormal glucose Chlamydia infection affecting Chronic headache Depression affecting Elevated bilirubin Herpes simplex infection during , antepartum [id number] History of pre-eclampsia Rh negative status during Social discord Sterilization Supervision of high risk , antepartum Abnormal glucose Chlamydia infection affecting Chronic headache Depression affecting Elevated bilirubin Herpes simplex infection during , antepartum [id number] History of pre-eclampsia Rh negative status during Social discord Sterilization Supervision of high risk , antepartum Abnormal glucose Chlamydia infection affecting Chronic headache Depression affecting Elevated bilirubin Herpes simplex infection during , antepartum [id number] History of pre-eclampsia Rh negative status during Social discord Sterilization Supervision of high risk , antepartum Vaginal delivery Anxiety Depression Headache Menorrhagia with irregular cycle Possible exposure to STD Vaginal odor Chief Complaint E ORDER AUB EXCESSIVE AND FREQUENT MENSTRUATION Reason for Visit Menorrhagia with irr egular cycle Possible exposure to STD Vaginal odor Chief Complaint E ORDER AUB EXCESSIVE AND FREQUENT MENSTRUATION Surgical consult/AUB Dilation and Curettage Dilation and Curettage Reason for Visit Menorrhagia with irr egular cycle Possible exposure to STD Vaginal odor Menorrhagia with irregular cycle Menorrhagia with irregular cycle Chief Complaint Admit Date vaginal odor/cyst June 10, 2024 1: 49pm bleeding after intercourse August 19, 2 025 2:42pm POSTCOITAL BLEEDING August 21, 2024 12: 29pm Reason for Visit Admit Date Inclusion cyst of vulva June 10 1:49pm Vaginal odor June 10, 2024 1: 49pm Postcoital bleeding August 19, 2024 2:4 2pm Chief Complaint Admit Date bleeding after intercourse August 19, 2 025 2:42pm POSTCOITAL BLEEDING August 21, 2024 12: 29pm Reason for Visit Admit Date Postcoital bleeding August 19, 2024 2:4 2pm Chief Complaint Admit Date bleeding after intercourse August 19 025 2:42pm POSTCOITAL BLEEDING August 21, 2024 12: 29pm INT LAB ORDER November 11, 2024 4:53p m Additional Source Comments INFORMATION SOURCE (unrecogn ized section and content) DATE CREATED AUTHOR 11/25/2017 [facility] DATE CREATED AUTHOR AUTHOR'S ORGANIZ ATION 07/25/2018 [facility] DATE CREATED AUTHOR AUTHOR'S ORGANIZ ATION 09/04/2018 [facility] DATE CREATED AUTHOR AUTHOR'S ORGANIZ ATION 09/27/2018 [facility] DATE CREATED AUTHOR AUTHOR'S ORGANIZ ATION 10/26/2018 [employer] DATE CREATED AUTHOR AUTHOR'S ORGANIZ ATION 10/27/2018 [facility] DATE CREATED AUTHOR AUTHOR'S ORGANIZ ATION 02/15/2021 [facility] ([place]) DATE CREATED AUTHOR AUTHOR'S ORGANIZ ATION [facility] DATE CREATED AUTHOR AUTHOR'S ORGANIZ ATION 06/02/2021 [facility] DATE CREATED AUTHOR AUTHOR'S ORGANIZ ATION 06/28/2021 [facility] DATE CREATED AUTHOR AUTHOR'S ORGANIZ ATION 11/21/2021 [facility] DATE CREATED AUTHOR AUTHOR'S ORGANIZ ATION 08/11/2022 [facility] DATE CREATED AUTHOR AUTHOR'S ORGANIZ ATION 08/11/2022 [facility] DATE CREATED AUTHOR AUTHOR'S ORGANIZ ATION 08/12/2022 [facility] DATE CREATED AUTHOR AUTHOR'S ORGANIZ ATION 10/11/2022 [facility] DATE CREATED AUTHOR AUTHOR'S ORGANIZ ATION 11/30/2022 [facility] DATE CREATED AUTHOR AUTHOR'S ORGANIZ ATION 11/30/2022 [employer] DATE CREATED AUTHOR AUTHOR'S ORGANIZ ATION 06/02/2023 [facility] DATE CREATED AUTHOR AUTHOR'S ORGANIZ ATION 07/22/2023 [facility] DATE CREATED AUTHOR AUTHOR'S ORGANIZ ATION 02/09/2024 [facility] DATE CREATED AUTHOR AUTHOR'S ORGANIZ ATION 03/25/2024 [facility] DATE CREATED AUTHOR AUTHOR'S ORGANIZ ATION 03/27/2024 [facility] DATE CREATED AUTHOR AUTHOR'S ORGANIZ ATION 08/18/2024 [facility] DATE CREATED AUTHOR AUTHOR'S ORGANIZ ATION 09/13/2024 [facility] DATE CREATED AUTHOR AUTHOR'S ORGANIZ ATION 11/18/2024 [facility] Reason for Visit (unrecogniz ed section and content) Reason Comments Flank Pain pt was seen at [place] yesterday and told to stay for treatment of kidneu stone. pt staets she left AMA and is here today for treatment. Reason Comments Blurred Vision Reason Comments Palpitations Specialty Diagnoses / Procedures Referred By Elder merritt Referred To Contact Cardiology Diagnoses heart pouaishwaryaing Maricel Simeon MD [address] [place] [id number] Referral ID Status Reason Start Date Expiration Date Visits Re quested Visits Authorized [id number] Closed 05/16/2021 05/16/2022 1 1 Reason Comments Otalgia Pt with c/o SORE THR OAT x 5 days, b/l ear pain x 1 day- states she thinks left ear has ruptured, c/o facial pain Reason Comments Anxiety Reason Comments Anxiety Reason Comments Sleep Problem Reason Comments Back Pain Back pain x3 days I have been puking because of the pain and its making my leg give out Specialty Diagnoses / Procedures Referred By Tanmayac t Referred To Contact Radiology Diagnoses , unspecified gestational age Procedures US OB TRANSVAGINAL Yaniv Pederson MD [address] [place] [address] Referral ID Status Reason Start Date Expiration Date Visits Re quested Visits Authorized [id number] Open 07/26/2022 07/26/2023 1 1 Reason Comments Referral Request Specialty Diagnoses / Procedures Referred By Tanmayac t Referred To Contact Cardiovascular Medicine Diagnoses Tachycardia Near syncope Dizziness and giddiness Procedures HOLTER MONITOR - USP Alina Alvarado MD [address] [address] [facility] [address] [place] [phone] Referral ID Status Reason Start Date Expiration Date Visits Re quested Visits Authorized [id number] Closed 10/20/2022 11/14/2023 1 1 Reason Comments Pain, Back yellowing of sclera Reason Comments Hypertension Amb to ED with c/o s welling since Mar 05. Had vaginal delivery and tubal ligation Mar 10. She is concerned about her BP readings at home today. Reason Comments restart medication For anxiety/depressi on Reason Comments Patient Question Reason Comments Other VAGINAL BLEEDING IN Reason Comments Refill Request Specialty Diagnoses / Procedures Referred By Tanmayac t Referred To Contact Cardiovascular Medicine Diagnoses Near syncope Tachycardia Procedures HOLTER MONITOR - USP Alina Alvarado MD [address] [place] [address] [facility] Clin[facility] [address] [place] [phone] Referral ID Status Reason Start Date Expiration Date Visits Re quested Visits Authorized [id number] Closed 05/24/2023 06/17/2024 1 1 Reason Comments Vaginal Bleeding Pt has been having h eavy menstrual bleeding x approx 36 hours. Denies , has had tubal ligation. Reports lower abd cramping, mild light-headedness and headache. Specialty Diagnoses / Procedures Referred By Contac t Referred To Contact Diagnoses Near syncope Procedures TILT TABLE TEST Alina Alvarado MD [address] [place] [address] Referral ID Status Reason Start Date Expiration Date Visits Re quested Visits Authorized [id number] Closed 05/16/2023 06/09/2024 1 1 Reason Onset Date Comments Refill Request 07/11/2023 Reason Comments Nausea & Vomiting Body aches, pain in left side, front x 1 day Reason Comments Low Blood Sugar Possibly d/t feeling like syncope, out of breath & vomiting with relief post juice intake x last 2 days Reason Onset Date Comments Refill Request 11/01/2023 Reason Comments Follow Up Reason Comments Medication Follow-up Reason Comments Medication Request Reason Comments Chest Pain Reason Comments ER F/U Chest painDysphagia with vomiting Reason Comments Blood Pressure Anxiety Reason Comments Blood Pressure Medication Follow-up Reason Comments Results labs Reason Comments Ovarian Cyst Reason Comments Faxed to [facility] Bernardo Sibley RN - 09/01/2018 9:05 PM Bernardo Joy RN - 09/01/2018 8:50 PM Eden Oneil EMT - 09/01/2018 7:28 PM EDTAndry Santiago RN - 09/01/2018 7:23 PM EDT ED Notes (unrecognized secti on and content) IN bed. No distress. Breathing even and unlabored. VS updated. Denies any needs. SRx2. Call light in reach. ARABELLA fink. Call light answered and patient requesting Ibuprofen, states Mine is wearing off. Side rails up x2 and call light within reach. RN updated Returns from CT via cart at this time. To CT via cart. IN bed on phone. No distress. VS updated. warm blanket given. No other needs. SRx2. Call light in reach. Pt brought to 23 with complaint of L flank pain. A&Ox3. No distress. Breathing even and unlabored. Assessment complete. SRx1. Call light in reach. in this encounter <item><item><item><item><item><item><item> Privacy Markings (unrecogniz ed section and content) Section Author: Caprice Cowan PROHIBITION ON REDISCLOSURE OF CONFIDENTIAL INFORMATION This notice accompanies a disclosure of information concerning a client made to you with the consent of such client. Section Author: Caprice Cowan PROHIBITION ON REDISCLOSURE OF CONFIDENTIAL INFORMATION This notice accompanies a disclosure of information concerning a client made to you with the consent of such client. Section Author: Caprice Cowan PROHIBITION ON REDISCLOSURE OF CONFIDENTIAL INFORMATION This notice accompanies a disclosure of information concerning a client made to you with the consent of such client. Section Author: Caprice Cowan PROHIBITION ON REDISCLOSURE OF CONFIDENTIAL INFORMATION This notice accompanies a disclosure of information concerning a client made to you with the consent of such client. Section Author: Caprice Cowan PROHIBITION ON REDISCLOSURE OF CONFIDENTIAL INFORMATION This notice accompanies a disclosure of information concerning a client made to you with the consent of such client. Section Author: Caprice Cowan PROHIBITION ON REDISCLOSURE OF CONFIDENTIAL INFORMATION This notice accompanies a disclosure of information concerning a client made to you with the consent of such client. Section Author: Caprice Cowan PROHIBITION ON REDISCLOSURE OF CONFIDENTIAL INFORMATION This notice accompanies a disclosure of information concerning a client made to you with the consent of such client. Care Teams (unrecognized sec tion and content) Ward Aide Relationship Specialty Start Date End Date Davide Chao MD [address] [facility] [address] [place] [id number] PCP - General Family Medicine 05/13/15 Ward Aide Relationship Specialty Start Date End Date Davide Chao MD [address] [place] [phone] PCP - General Family Medicine 06/23/17 Ward Aide Relationship Specialty Start Date End Date Davide Chao MD [address] [place] [id number] PCP - General Family Medicine 05/13/15 Ward Aide Relationship Specialty Start Date End Date Davide Chao MD [address] [place] [id number] PCP - General 04/07/09 Ward Aide Relationship Specialty Start Date End Date Davide Chao MD [address] [place] [id number] PCP - General 04/07/09 Ward Aide Relationship Specialty Start Date End Date Davide Chao MD [address] [place] [address] PCP - General 04/07/09 Ward Aide Relationship Specialty Start Date End Date Davide Chao MD [address] [place] [address] PCP - General 04/07/09 Ward Aide Relationship Specialty Start Date End Date Davide Chao [address] [place] [address] PCP - General 08/22/18 Ward Aide Relationship Specialty Start Date End Date Davide Chao [address] [place] [address] PCP - General 08/22/18 Ward Aide Relationship Specialty Start Date End Date Davide Chao [address] [place] [address] PCP - General 08/22/18 Ward Aide Relationship Specialty Start Date End Date Davide Chao [address] [place] [address] PCP - General 08/22/18 Team Status: Active Member Role Status Dates Dr. Davide Chao MD Family Provider Active Dr. Davide Chao MD Primary Care Provider Active Team Status: Inactive Member Role Status Dates Dr. Davide Chao MD Primary Care Provider, Referr ing Provider Active Dr. Yuri Crenshaw MD Attending Provider Active Team Status: Inactive Member Role Status Dates Dr. Davide Chao MD Primary Care Provider Active Dr. Melissa Brasher DO Attending Provider Activ e Team Status: Active Member Role Status Dates Dr. Davide Chao MD Primary Care Provider Active Love Castillo VENDING MACHINE REPAIRER, VENDING MACHINE REPAIRER-C Attending Provider Active Team Status: Inactive Member Role Status Dates Dr. Davide Chao MD Primary Care Provider, Referr ing Provider Active Dr. Melissa Brasher DO Attending Provider Activ e Team Status: Inactive Member Role Status Dates Dr. Davide Chao MD Primary Care Provider Active Love Castillo VENDING MACHINE REPAIRER, VENDING MACHINE REPAIRER-C Attending Provider Active Team Status: Inactive Member Role Status Dates Dr. Davide Chao MD Primary Care Provider Active Dr. Melissa Brasher DO Attending Provider, Refe rring Provider Active Ward Aide Relationship Specialty Start Date End Date Davide Chao MD [address] [place], [place] [id number] PCP - General 04/07/09 Ward Aide Relationship Specialty Start Date End Date Davide Chao MD [address] [place] [phone] PCP - General Family Medicine 06/23/17 Team Status: Inactive Member Role Status Dates Dr. Davide Chao MD Primary Care Provider, Referr ing Provider Active Laura Salinas CNM Attending Provider Active Team Status: Inactive Member Role Status Dates Dr. Davide Chao MD Primary Care Provider, Referr ing Provider Active Love Castillo VENDING MACHINE REPAIRER, VENDING MACHINE REPAIRER-C Attending Provider Active Team Status: Inactive Member Role Status Dates Dr. Davide Chao MD Primary Care Provider, Referr ing Provider Active Jeanette Roach CNM Attending Provider Active Team Status: Active Member Role Status Dates Dr. Davide Chao MD Primary Care Provider Active Dr. Yuri Crenshaw MD Attending Pr ovider, Referring Provider, Other Provider Active Jeanette Roach CNM Other Provider Active Team Status: Inactive Member Role Status Dates Dr. Davide Chao MD Primary Care Provider Active Dr. Car Gage DO Emergency Provider Active Team Status: Inactive Member Role Status Dates Dr. Davide Chao MD Primary Care Provider Active Dr. Yuri Crenshaw MD Attending Provider, Referr ing Provider Active Jeanette Roach CNM Other Provider Active Ward Aide Relationship Specialty Start Date End Date Davide Chao MD [address] [place] [address] PCP - General 04/07/09 Team Status: Inactive Member Role Status Dates Dr. Davide Chao MD Primary Care Provider Active Dr. Car Gage DO Attending Provider, Emergency Provider Active Team Status: Inactive Member Role Status Dates Dr. Davide Chao MD Primary Care Provider Active Dr. Yuri Crenshaw MD Other Provider Active Love Castillo VENDING MACHINE REPAIRER, VENDING MACHINE REPAIRER-C Other Provider Active Laura Salinas CNM Attending Provider, Referring Pr ovider Active Ward Aide Relationship Specialty Start Date End Date Davide Chao MD [address] [place] [address] PCP - General 04/07/09 Team Status: Inactive Member Role Status Dates Dr. Davide Chao MD Primary Care Provider, Referr ing Provider Active Dr. Zander Morales MD Attending Provider Active Team Status: Active Member Role Status Dates Dr. Davide Chao MD Primary Care Provider Active Dr. Yuri Crenshaw MD Other Provider Active Love Castillo VENDING MACHINE REPAIRER, VENDING MACHINE REPAIRER-C Other Provider Active Laura Salinas CNM Attending Provider , Referring Provider, Other Provider Active Team Status: Active Member Role Status Dates Dr. Davide Chao MD Primary Care Provider Active Dr. Yuri Crenshaw MD Attending Pr ovider, Referring Provider, Other Provider Active Team Status: Active Member Role Status Dates Dr. Davide Chao MD Primary Care Provider Active Laura Salinas CNM Attending Provider Active Team Status: Inactive Member Role Status Dates Dr. Davide Chao MD Primary Care Provider Active Dr. Yuri Crenshaw MD Attending Provider, Referr ing Provider Active Team Status: Active Member Role Status Dates Dr. Davide Chao MD Primary Care Provider Active Dr. Melissa Brasher DO Attending Provider, Refe rring Provider Active Team Status: Inactive Member Role Status Dates Dr. Davide Chao MD Primary Care Provider Active Laura Salinas CNM Attending Provider Active Team Status: Active Member Role Status Dates Dr. Davide Chao MD Primary Care Provider Active Dr. Melissa Brasher DO Attending Provider, Refe rring Provider Active Dr. Yuri Crenshaw MD Other Provider Active Team Status: Inactive Member Role Status Dates Dr. Davide Chao MD Primary Care Provider Active Dr. Melissa Brasher DO Attending Provider, Refe rring Provider Active Dr. Yuri Crenshaw MD Other Provider Active Ward Aide Relationship Specialty Start Date End Date Davide Chao MD [address] [place] [address] PCP - General 06/13/19 Team Status: Active Member Role Status Dates Dr. Davide Chao MD Primary Care Provider Active Jeanette Roach CNM Attending Provider, Referring Provider, Other Provider Active Team Status: Active Member Role Status Dates Dr. Davide Chao MD Primary Care Provider Active Dr. Yuri Crenshaw MD Admit Provid er, Attending Provider, Referring Provider, Other Provider Active Team Status: Active Member Role Status Dates Dr. Davide Chao MD Primary Care Provider Active Dr. Melissa Brasher DO Attending Provider, Referring Provider, Other Provider Active Team Status: Active Member Role Status Dates Dr. Davide Chao MD Primary Care Provider Active Jeanette Roach CNM Attending Provider, Other Provide r Active Team Status: Inactive Member Role Status Dates Dr. Davide Chao MD Primary Care Provider Active Dr. Yuri Crenshaw MD Admit Provid er, Attending Provider, Referring Provider Active Team Status: Inactive Member Role Status Dates Dr. Davide Chao MD Primary Care Provider Active Jeanette Roach CNM Attending Provider Active Team Status: Inactive Member Role Status Dates Dr. Davide Chao MD Primary Care Provider Active Jeanette Roach CNM Attending Provider, Referring Pro vider Active Ward Aide Relationship Specialty Start Date End Date Davide Chao MD [address] [place] [address] PCP - General 04/07/09 Ward Aide Relationship Specialty Start Date End Date Davide Chao MD [address] [place] [address] PCP - General 04/07/09 Ward Aide Relationship Specialty Start Date End Date Davide Chao MD [address] [place] [address] PCP - General 06/13/19 Ward Aide Relationship Specialty Start Date End Date Davide Chao MD [address] [place], [place] [address] PCP - General 04/07/09 Ward Aide Relationship Specialty Start Date End Date Davide Chao MD [address] [place] [id number] PCP - General Family Medicine 06/23/17 Ward Aide Relationship Specialty Start Date End Date Davide Chao MD [address] [place], [place] [id number] PCP - General 06/13/19 Ward Aide Relationship Specialty Start Date End Date Davide Chao MD [address] [place] [id number] PCP - General Family Medicine 06/23/17 Team Status: Active Member Role Status Dates Dr. Davide Chao MD Primary Care Provider Active Love Castillo VENDING MACHINE REPAIRER, VENDING MACHINE REPAIRER-C Attending Provider, Referring Provider Active Team Status: Inactive Member Role Status Dates Dr. Davide Chao MD Primary Care Provider Active Love Castillo VENDING MACHINE REPAIRER, VENDING MACHINE REPAIRER-C Attending Provider, Referring Provider Active Ward Aide Relationship Specialty Start Date End Date Davide Chao MD [address] [place], [place] [address] PCP - General 04/07/09 Ward Aide Relationship Specialty Start Date End Date Davide Chao MD [address] [place] [address] PCP - General 04/07/09 Ward Aide Relationship Specialty Start Date End Date Davide Chao MD [address] [place] [address] PCP - General 04/07/09 Ward Aide Relationship Specialty Start Date End Date Davide Chao MD [address] [place] [address] PCP - General 04/07/09 Ward Aide Relationship Specialty Start Date End Date Davide Chao MD [address] [place] [address] PCP - General 04/07/09 Ward Aide Relationship Specialty Start Date End Date Davide Chao MD [address] [place] [address] PCP - General 04/07/09 Ward Aide Relationship Specialty Start Date End Date Davide Chao MD [address] [place] [address] PCP - General 04/07/09 Ward Aide Relationship Specialty Start Date End Date Davide Chao MD [address] [place] [address] PCP - General 04/07/09 Harini Rock, LINE PILOT.EMAIL DESIGNER [address] [place] [address] [facility] 05/12/24 Isaac Marie LINE PILOT.EMAIL DESIGNER [address] [place] [address] [facility] 05/21/24 Ward Aide Relationship Specialty Start Date End Date Davide Chao MD [address] [place] [address] PCP - General 04/07/09 Harini Rock, LINE PILOT.EMAIL DESIGNER [address] [place] [address] [facility] 05/12/24 Isaac Marie APRN.EMAIL DESIGNER [address] [place] [address] [facility] Ward Aide Relationship Specialty Start Date End Date Davide Chao MD [address] [place] [address] PCP - General 04/07/09 Harini Rock APRN.EMAIL DESIGNER [address] [place] [address] [facility]24 Isaac Marie APRN.EMAIL DESIGNER [address] [place] [address] [facility] 05/21/24 Ward Aide Relationship Specialty Start Date End Date Davide Chao MD [address] [place] [address] PCP - General 04/07/09 Harini Rock LINE PILOT.EMAIL DESIGNER [address] [place] [address] [facility]/24 Isaac Marie LINE PILOT.EMAIL DESIGNER [address] [place] [address] [facility] 05/21/24 Team Status: Active Member Role Status Dates Dr. Davide Chao MD Primary Care Provider Active Team Status: Inactive Member Role Status Dates Dr. Davide Chao MD Primary Care Provider Active Start: June 10, 2024 End: June 10, 2024 Dr. Davide Chao MD Referring Provider Active Start: June 10, 2024 End: June 10, 2024 Love Castillo VENDING MACHINE REPAIRER, VENDING MACHINE REPAIRER-C Attending Provider Active Start: June 10, 2024 End: June 10, 2024 Team Status: Inactive Member Role Status Dates Dr. Davide Chao MD Primary Care Provider Active Start: June 10, 2024 End: June 10, 2024 Love Castillo VENDING MACHINE REPAIRER, VENDING MACHINE REPAIRER-C Attending Provider Active Start: June 10, 2024 End: June 10, 2024 Love Castillo VENDING MACHINE REPAIRER, VENDING MACHINE REPAIRER-C Referring Provider Active Start: June 10, 2024 End: June 10, 2024 Team Status: Inactive Member Role Status Dates Dr. Davide Chao MD Primary Care Provider Active Start: July 24, 2024 End: July 24, 2024 Laura Salinas CNM Attending Provider Active Start: July 24, 2024 End: July 24, 2024 Laura Salinas CNM Referring Provider Active Start: July 24, 2024 End: July 24, 2024 Team Status: Inactive Member Role Status Dates Dr. Davide Chao MD Primary Care Provider Active Start: August 19, 2024 End: August 19, 2024 Dr. Davide Chao MD Referring Provider Active Start: August 19, 2024 End: August 19, 2024 Dr. Melissa Brasher DO Attending Provider Activ e Start: August 19, 2024 End: August 19, 2024 Team Status: Inactive Member Role Status Dates Dr. Davide Chao MD Primary Care Provider Active Start: August 19, 2024 End: August 19, 2024 Dr. Melissa Brasher DO Attending Provider Activ e Start: August 19, 2024 End: August 19, 2024 Dr. Melissa Brasher DO Referring Provider Activ e Start: August 19, 2024 End: August 19, 2024 Team Status: Active Member Role Status Dates Dr. Davide Chao MD Primary Care Provider Active Start: August 21, 2024 Dr. Melissa Brasher DO Attending Provider Activ e Start: August 21, 2024 Dr. Melissa Brasher DO Referring Provider Activ e Start: August 21, 2024 Team Status: Inactive Member Role Status Dates Dr. Davide Chao MD Primary Care Provider Active Start: August 21, 2024 End: August 21, 2024 Dr. Melissa Brasher DO Attending Provider Activ e Start: August 21, 2024 End: August 21, 2024 Dr. Melissa Brasher DO Referring Provider Activ e Start: August 21, 2024 End: August 21, 2024 Ward Aide Relationship Specialty Start Date End Date Davide Chao MD [address] [place] [address] PCP - General 04/07/09 Harini Rock APRN.EMAIL DESIGNER [address] [place] [address] [facility]/24 Isaac Marie APRN.EMAIL DESIGNER [address] [place] [address] [facility] Ward Aide Relationship Specialty Start Date End Date Davide Chao MD [address] [place] [address] PCP - General 04/07/09 Harini Rock APRN.EMAIL DESIGNER [address] [place] [address] [facility] 05/12/24 Isaac Marie LINE PILOT.EMAIL DESIGNER [address] [place] [address] [facility] 05/21/24 Ward Aide Relationship Specialty Start Date End Date Davide Chao MD [address] [place] [address] PCP - General 04/07/09 Harini Rock APRN.EMAIL DESIGNER [address] [place] [address] [facility] 05/12/24 10/16/24 Isaac Marie APRN.EMAIL DESIGNER [address] [place], [place] [id number] [facility] 05/21/24 Team Status: Inactive Member Role Status Dates Dr. Davide Chao MD Primary Care Provider Active Start: October 26, 2024 End: October 26, 2024 Dr. Melissa Brasher , Attending Provider Activ e Start: October 26, 2024 End: October 26, 2024 Dr. Melissa Brasher DO Referring Provider Activ e Start: October 26, 2024 End: October 26, 2024 Ward Aide Relationship Specialty Start Date End Date Davide Chao MD [address] [place] [address] PCP - General 04/07/09 Harini Rock APRN.EMAIL DESIGNER [address] [place] [address] [facility] 05/12/24 10/16/24 Isaac Marie APRN.EMAIL DESIGNER [address] [place] [address] [facility] 05/21/24 Team Status: Inactive Member Role Status Dates Dr. Davide Chao MD Primary Care Provider Active Start: November 11, 2024 End: November 11, 2024 Dr. Melissa Brasher DO Attending Provider Activ e Start: November 11, 2024 End: November 11, 2024 Dr. Melissa Brasher DO Referring Provider Activ e Start: November 11, 2024 End: November 11, 2024 Team Status: Inactive Member Role Status Dates Dr. Davide Chao MD Primary Care Provider Active Start: November 15, 2024 End: November 15, 2024 Jeanette Roach CNM Attending Provider Active S tart: November 15, 2024 End: November 15, 2024 Jeanette Roach CNM Referring Provider Active S tart: November 15, 2024 End: November 15, 2024 Source Comments (unrecognize d section and content) In the event this informatio n is protected by the Federal Confidentiality of Alcohol and Drug Abuse Patient Records regulations: The Federal rules restrict any use of the information to criminally investigate or prosecute any alcohol or drug abuse patient.[facility]In the event this information is protected by the Federal Confidentiality of Alcohol and Drug Abuse Patient Records regulations: The Federal rules restrict any use of the information to criminally investigate or prosecute any alcohol or drug abuse patient.[facility] HospitalIn the event this information is protected by the Federal Confidentiality of Alcohol and Drug Abuse Patient Records regulations: The Federal rules restrict any use of the information to criminally investigate or prosecute any alcohol or drug abuse patient.[facility] HospitalIn the event this information is protected by the Federal Confidentiality of Alcohol and Drug Abuse Patient Records regulations: The Federal rules restrict any use of the information to criminally investigate or prosecute any alcohol or drug abuse patient.[facility] HospitalIn the event this information is protected by the Federal Confidentiality of Alcohol and Drug Abuse Patient Records regulations: The Federal rules restrict any use of the information to criminally investigate or prosecute any alcohol or drug abuse patient.[facility] HospitalIn the event this information is protected by the Federal Confidentiality of Alcohol and Drug Abuse Patient Records regulations: The Federal rules restrict any use of the information to criminally investigate or prosecute any alcohol or drug abuse patient.[facility] HospitalIn the event this information is protected by the Federal Confidentiality of Alcohol and Drug Abuse Patient Records regulations: The Federal rules restrict any use of the information to criminally investigate or prosecute any alcohol or drug abuse patient.[facility] HospitalIn the event this information is protected by the Federal Confidentiality of Alcohol and Drug Abuse Patient Records regulations: The Federal rules restrict any use of the information to criminally investigate or prosecute any alcohol or drug abuse patient.[facility] HospitalIn the event this information is protected by the Federal Confidentiality of Alcohol and Drug Abuse Patient Records regulations: The Federal rules restrict any use of the information to criminally investigate or prosecute any alcohol or drug abuse patient.[facility] HospitalIn the event this information is protected by the Federal Confidentiality of Alcohol and Drug Abuse Patient Records regulations: The Federal rules restrict any use of the information to criminally investigate or prosecute any alcohol or drug abuse patient.[facility] HospitalIn the event this information is protected by the Federal Confidentiality of Alcohol and Drug Abuse Patient Records regulations: The Federal rules restrict any use of the information to criminally investigate or prosecute any alcohol or drug abuse patient.[facility] HospitalIn the event this information is protected by the Federal Confidentiality of Alcohol and Drug Abuse Patient Records regulations: The Federal rules restrict any use of the information to criminally investigate or prosecute any alcohol or drug abuse patient.[facility] HospitalIn the event this information is protected by the Federal Confidentiality of Alcohol and Drug Abuse Patient Records regulations: The Federal rules restrict any use of the information to criminally investigate or prosecute any alcohol or drug abuse patient.[facility] HospitalIn the event this information is protected by the Federal Confidentiality of Alcohol and Drug Abuse Patient Records regulations: The Federal rules restrict any use of the information to criminally investigate or prosecute any alcohol or drug abuse patient.[facility] HospitalIn the event this information is protected by the Federal Confidentiality of Alcohol and Drug Abuse Patient Records regulations: The Federal rules restrict any use of the information to criminally investigate or prosecute any alcohol or drug abuse patient.[facility] HospitalIn the event this information is protected by the Federal Confidentiality of Alcohol and Drug Abuse Patient Records regulations: The Federal rules restrict any use of the information to criminally investigate or prosecute any alcohol or drug abuse patient.[facility] HospitalIn the event this information is protected by the Federal Confidentiality of Alcohol and Drug Abuse Patient Records regulations: The Federal rules restrict any use of the information to criminally investigate or prosecute any alcohol or drug abuse patient.[facility] HospitalIn the event this information is protected by the Federal Confidentiality of Alcohol and Drug Abuse Patient Records regulations: The Federal rules restrict any use of the information to criminally investigate or prosecute any alcohol or drug abuse patient.[facility] HospitalIn the event this information is protected by the Federal Confidentiality of Alcohol and Drug Abuse Patient Records regulations: The Federal rules restrict any use of the information to criminally investigate or prosecute any alcohol or drug abuse patient.[facility] HospitalIn the event this information is protected by the Federal Confidentiality of Alcohol and Drug Abuse Patient Records regulations: The Federal rules restrict any use of the information to criminally investigate or prosecute any alcohol or drug abuse patient.[facility] HospitalIn the event this information is protected by the Federal Confidentiality of Alcohol and Drug Abuse Patient Records regulations: The Federal rules restrict any use of the information to criminally investigate or prosecute any alcohol or drug abuse patient.[facility] HospitalIn the event this information is protected by the Federal Confidentiality of Alcohol and Drug Abuse Patient Records regulations: The Federal rules restrict any use of the information to criminally investigate or prosecute any alcohol or drug abuse patient.[facility] HospitalIn the event this information is protected by the Federal Confidentiality of Alcohol and Drug Abuse Patient Records regulations: The Federal rules restrict any use of the information to criminally investigate or prosecute any alcohol or drug abuse patient.[facility] the event this information is protected by the Federal Confidentiality of Alcohol and Drug Abuse Patient Records regulations: The Federal rules restrict any use of the information to criminally investigate or prosecute any alcohol or drug abuse patient.[facility] HospitalIn the event this information is protected by the Federal Confidentiality of Alcohol and Drug Abuse Patient Records regulations: The Federal rules restrict any use of the information to criminally investigate or prosecute any alcohol or drug abuse patient.[facility] HospitalIn the event this information is protected by the Federal Confidentiality of Alcohol and Drug Abuse Patient Records regulations: The Federal rules restrict any use of the information to criminally investigate or prosecute any alcohol or drug abuse patient.[facility] HospitalIn the event this information is protected by the Federal Confidentiality of Alcohol and Drug Abuse Patient Records regulations: The Federal rules restrict any use of the information to criminally investigate or prosecute any alcohol or drug abuse patient.[facility] HospitalIn the event this information is protected by the Federal Confidentiality of Alcohol and Drug Abuse Patient Records regulations: The Federal rules restrict any use of the information to criminally investigate or prosecute any alcohol or drug abuse patient.[facility] HospitalIn the event this information is protected by the Federal Confidentiality of Alcohol and Drug Abuse Patient Records regulations: The Federal rules restrict any use of the information to criminally investigate or prosecute any alcohol or drug abuse patient.[facility] HospitalIn the event this information is protected by the Federal Confidentiality of Alcohol and Drug Abuse Patient Records regulations: The Federal rules restrict any use of the information to criminally investigate or prosecute any alcohol or drug abuse patient.[facility] HospitalIn the event this information is protected by the Federal Confidentiality of Alcohol and Drug Abuse Patient Records regulations: The Federal rules restrict any use of the information to criminally investigate or prosecute any alcohol or drug abuse patient.[facility] HospitalIn the event this information is protected by the Federal Confidentiality of Alcohol and Drug Abuse Patient Records regulations: The Federal rules restrict any use of the information to criminally investigate or prosecute any alcohol or drug abuse patient.[facility] Ordered Prescriptions (unrec ognized section and content) Prescription Sig Dispensed Refills Start Date End Da te orphenadrine (NORFLEX) 100 MG extended release tablet Take 1 tablet by mouth 2 times daily as needed for Muscle spasms 10 tablet 0 07/14/2022 Scheduled Active and Recently Administ ered Medications (unrecognized section and content) Medication Order 07/12/2022 07/13/2022 07/14/2022 orphenadrine (NORFLEX) injection 30 mg (COMPLETED) 30 mg, IntraMUSCular, ONCE, 1 dose, On Mon07/13/22 at 2315 2331 (Given - Provider: Jailyn Corley RN) Scheduled Medication Order 06/05/2023 06/06/2023 06/07/2023 acetaminophen (Tylenol) tablet 650 mg (COMPLETED) 650 mg, oral, Once, On Mon06/06/23 at 2335, For 1 dose, If ordered PRN for pain, nurse is permitted to administer this medication for higher pain scores based on patient preference? Yes 2331 (Given - Provider: Jessica Tijerina RN) ondansetron ODT (Zofran-ODT) disintegrating tablet 4 mg (COMPLETED) 4 mg, oral, Once, On Mon06/06/23 at 2335, For 1 dose 2339 (Given - Provider: Jessica Tijerina RN) sodium chloride 0.9 % bolus 1,000 mL (COMPLETED) 1,000 mL, intravenous, at 1,000 mL/hr, Administer over 1 Hours, Once, On Mon06/06/23 at 2320, For 1 dose 2339 (New Bag - Provider: Jessica Tijerina RN) 0039 (Stopped - Provider: Jessica Tijerina RN) Goals (unrecognized section and content) Goals may be documented in a n alternate sectionGoals may be documented in an alternate sectionGoals may be documented in an alternate sectionGoals may be documented in an alternate sectionGoals may be documented in an alternate sectionGoals may be documented in an alternate sectionGoals may be documented in an alternate sectionGoals may be documented in an alternate sectionGoals may be documented in an alternate sectionGoals may be documented in an alternate sectionGoals may be documented in an alternate section No data available for this sectionGoals may be documented in an alternate sectionGoals may be documented in an alternate sectionGoals may be documented in an alternate sectionGoals may be documented in an alternate sectionGoals may be documented in an alternate section FOR RECORDS PERTAINING TO PATIENTS WHO ARE OR HAVE BEEN ENROLLED IN A CHEMICAL DEPENDENCY/SUBSTANCEABUSE PROGRAM, SOME INFORMATION MAY BE OMITTED. This clinical summary was aggregated from multiple sources. Caution should be exercised in using it in the provision of clinical care. This summary normalizes information from multiple sources, and as a consequence, information in this document may materially change the coding, format and clinical context of patient data. In addition, data may be omitted in some cases. CLINICAL DECISIONS SHOULD BE BASED ON THE PRIMARY CLINICAL RECORDS. [facility]. provides no warranty or guarantee of the accuracy or completeness of information in this document.
[2024-11-23 21:58] LABS: Absolute Lymphocyte Count 2.84 X10^3/uL (0.83-4.51); Absolute Neutrophil Count 3.9 X10^3/uL (2.0-7.7); Basophil# 0.05 X10^3/uL; Basophil% 0.6 % (0-1); Eosinophil# 0.44 X10^3/uL; Eosinophils% 5.6 % (0-5); Hematocrit 42.4 % (37-47); Hemoglobin 14.9 g/dL (12.0-15.0); Lymphocyte # 2.84 X10^3/ul (0.83-4.51); Lymphocyte % 35.9 % (19-41); Mean Corp Hgb Conc 35.1 g/dL (32-36); Mean Corpuscular Hgb 30.8 pg (27.0-32.0); Mean Corpuscular Volume 87.6 fL (81-99); Mean Platelet Vol. 10.4 fl (6.2-12.0); Monocyte# 0.63 X10^3/uL; NRBC Flagged by Analyzer 0 % (0-5); Neutrophil # 3.92 X10^3/uL (2.7-7.7); Neutrophil % 49.5 % (47-70); Platelet Count 331 K/mm3 (150-450); RBC Distribution Width CV 12.3 % (11.6-14.6); RBC Distribution Width SD 39.5 fl (35.1-43.9); Red Blood Count 4.84 M/mm3 (4.2-5.4); White Blood Count 7.9 K/mm3 (4.4-11.0)
[2024-11-23 22:00] LABS: Anion Gap 16 (5-15); BUN 11 mg/dL (4-19); BUN/Creat Ratio 10.6 RATIO (10-20); Calcium,Total 9.9 mg/dL (7.6-11.0); Carbon Dioxide 19.7 mmol/L (21.0-32.0); Chloride 103 mmol/L (98-108); Creatinine, Serum 1.06 mg/dL (0.70-1.20); EST Glomerular Filtration Rate 71 (>60); Estimated Creatinine Clearance 79.55 ml/min (50-250); Glucose 89 mg/dL (70-99); Potassium 3.7 mmol/L (3.3-5.1); Sodium Level 139 mmol/L (133-145)
[2024-11-23 22:02] LABS: Troponin T High Sensitivity < 6 ng/L (<=14)
[2024-11-23 22:10] VITALS: BP 97/72; PULSE 74; RESP 22; O2SAT 98
[2024-11-23 22:29] VITALS: BP 97/72; PULSE 74; RESP 23; TEMP 36.7; O2SAT 97
== END 2024-11-23 22:34 | disposition home or self-care (01) ==
PROVIDERS: Emergency Provider Emergency Medicine; PCP Family Medicine; Visit Provider Emergency Medicine
DX: R07.89 Other chest pain (principal); R11.0 Nausea; R00.2 Palpitations; F17.290 Nicotine dependence, other tobacco product, uncomplicated; Z86.73 Personal history of transient ischemic attack (TIA), and cerebral infarction without residual deficits; Z86.79 Personal history of other diseases of the circulatory system; Z87.19 Personal history of other diseases of the digestive system; Z90.49 Acquired absence of other specified parts of digestive tract; Z98.890 Other specified postprocedural states
CPT/HCPCS: 71046; 80048; 84443; 84484; 85025; 93005; 96374; 99285; J2405

== ENCOUNTER → 2024-12-20 | Outpatient (CLI) | payer MEDICAID, SELFPAY ==
--- NOTE | 2024-12-20 12:01 | RAD_ITS ---
PROCEDURE: SALPINGOGRAM 12/20/2024 REASON FOR EXAM: HSG TECHNIQUE: SALPINGOGRAM COMPARISON: None FINDINGS: Hysterosalpingogram was performed by the facility assistant. Imaging was provided. Dose report: 21 seconds of fluoroscopy. 8.98 mGy. 2 images were submitted. The uterus is unremarkable. Both fallopian tubes are patent with free spill. RAD/Salpingogram IMPRESSION: Unremarkable hysterosalpingogram. Reading Location: [facility]
--- NOTE | 2024-12-20 17:12 | PCM.OP.PRO2 ---
Problems Associated Problem List Diagnoses (1) Tubal reversal surgical follow up: Multi Select Codes Urinary/Genital Urinary/Genital CPT Codes: 17670 HSG/SIS Non-invasive Procedural Procedure Information Date of Procedure: 12/23/24 Pre-Procedure Diagnosis: tubal reversal follow up Post-Procedure Diagnosis: tubal reversal follow up Procedure Performed:: HSG long chain beamer: No Description of procedure: Operative details: Patient was taken to the x-ray room and was placed on the x-ray table and was in the dorsal lithotomy position. Speculum was placed in the vagina and the cervix prepped with Betadine and the HSG catheter was easily introduced into the uterus and speculum removed. Radiologist was brought in and while pushing radiopaque dye into the uterus via the HSG catheter the radiologist took multiple images and views and confirmed bilateral tubal patency seen. No gross uterine filling defects or abnormalities were seen. All instruments removed from the vagina and the uterus without complication. Patient tolerated the procedure well. Procedure findings: patent bilateral fallopian tubes Complications Complications: No
== END | disposition home or self-care (01) ==
PROVIDERS: PCP Family Medicine; Referring Provider Obstetrics & Gynecology; Visit Provider Obstetrics & Gynecology
DX: N97.9 Female infertility, unspecified (principal)
CPT/HCPCS: 58340; 74740; Q9967

== ENCOUNTER → 2025-01-03 | Outpatient (CLI) | payer MEDICAID, SELFPAY ==
[2025-01-03 17:24] LABS: hCG Titer Quant., Serum 11 mIU/mL (<9 non-preg)
--- OUTSIDE RECORDS SUMMARY | 2025-01-03 19:35 | XMS RPT_ITS | CCD ---
Author Organization [facility] Care Team Providers Care Big Machine Consultant Name Role Phone Kam Crandall Unavailable Unavailable RENETTA SOW Attending Unavailable IMCA Referring Unavailable Davide Chao Primary Care Unavailable RENETTA SOW Attending Unavailable RENETTA SOW Referring Unavailable Davide Chao Primary Care Unavailable Davide Chao Primary Care Provider [phone] RENETTA SOW Attending Unavailable JERRY MORILLO Referring Unavailable RENETTA SOW Attending Unavailable RENETTA SOWROOLGAH Referring Unavailable HITESH RESTREPO Attending Unavailabl e PROVIDER, UNKNOWN Referring Unavailable Davide Chao Primary Care Unavailable Alexis Hernadez Attending Unavailable PROVIDER, UNKNOWN Referring Unavailable Davide Chao Primary Care Unavailable UNKNOWN, PROVIDER Attending Unavailable Davide Chao Primary Care Provider Davide Chao Unavailable [phone] Rm Veras Unavailable Unavailable Davide Chao MD Primary Care Provider Davide Blount Unavailable Unavailable Cheyanne Izaguirre Unavailable Unavailable Son Gunderson Unavailable Davide Chao MD Primary Care Provider [facility] Attending Un available SYSTEM, PROVIDER [...] Care Provider Davide Chao Primary Care Provider Dr. Davide Chao Primary Care Provider Dr. Davide Chao Referring Provider [phone] Dr. Yuri Crenshaw Attending Provider [phone] DAVIDE CHAO Primary Care Unavailable DIAB, NREY Attending Unavailable ZHANNA, DAVIDE Primary Care Unavailable [...] MOHIT, MD ANDRY EDWARD Referring Unavail able [place], Dr. Anil Sharma Attending Unavailabl e [place], Dr. Anil Sharma Referring Unavailabl e [place], Dr. Davide Walsh Primary Care Unav ailMD ANDRY Olivier Attending Unavail able MOHIT, MD ANDRY EDWARD Referring Unavail able [place], Dr. Davide Walsh Primary Care Unav ailable MD ANDRY RUEDA Referring Unavail able MOHIT, MD ANDRY EDWARD Attending Unavail able [place]ney, Dr. Davide Walsh Primary Care Unav ailable Zhanna, Dr. Davide Walsh Primary Care Unav ailMD ANDRY Olivier Referring Unavail able MD ANDRY RUEDA Attending Unavail able Zhanna, Dr. Meade Primary Care Provider Zhanna, Dr. Meade Referring Provider Dr. Yuri Crenshaw Attending Provider Dr. Melissa Brasher Attending Provider Rosi, Byron [...] Dr. Davide Walsh Primary Care Unav ailable [facility] Dr[facility] Davide Walsh Attending Chiquitav ailable Zhanna, [...] Provider Dr. Yuri Crenshaw Attending Provider Anna PREPAROLE COUNSELING AIDE, PREPAROLE COUNSELING AIDE-C Love Attending Provider [phone] TIM Roach Attending Provider Dr. Yuri Crenshaw Referring Provider [phone] Dr. Yuri Crenshaw Other Provider TIM Roach Other Provider Dr. Davide Chao Primary Care Provider [phone] Dr. Davide Chao Referring Provider [phone] Dr. Melissa Brasher Attending Provider [phone] Anna PREPAROLE COUNSELING AIDE, PREPAROLE COUNSELING AIDE-C Love Other Provider Brad, TIM Sanchez Referring Provider Brad, ANTONIM Laura Other Provider Dr. Zander Morales Attending Provider Dr. Davide Chao Primary Care Provider [phone] Dr. Davide Chao Referring Provider [phone] TIM Salinas Attending Provider Davide Chao MD Primary Care Provider Dr. Davide Chao Primary Care Provider [phone] Dr. Davide Chao Referring Provider [phone] Dr. Yuri Crenshaw Attending Provider TIM Roach Referring Provider [phone] Dr. Yuri Crenshaw Admit Provider Dr. Melissa Brasher Referring Provider [phone] Dr. Melissa Brasher Other Provider Davide Chao MD Primary Care Provider GUMPRECHT, ALINA Referring Unavailable DAVIDE CHAO Primary Care Unavailable GUMKENA, ALINA Attending Unavailable JACOBO ALVARADOEST Referring Unavailable DAVIDE CHAO Primary Care Unavailable MAXX, ALINA Attending Unavailable Dr. Davide Chao Primary Care Provider TIM Roach Attending Provider [phone] TIM Roach Referring Provider [phone] TIM Roach Other Provider [phone] Dr. Davide Chao Referring Provider Dr. Yuri Crenshaw Admit Provider Dr. Yuri Crenshaw Attending Provider [phone] Dr. Yuri Crenshaw Referring Provider [phone] Dr. Yuri Crenshaw Other Provider Dr. Melissa Brasher Attending Provider [phone] Dr. Melissa Brasher Referring Provider [phone] Dr. Melissa Brasher Other Provider Anna PREPAROLE COUNSELING AIDE, MALENA Aleman Attending Provider [phone] Dr. Davide Chao Primary Care Provider [phone] Dr. Davide Chao Referring Provider [phone] Dr. Davide Chao Primary Care Provider [phone] Dr. Davide Chao Referring Provider Anna PREPAROLE COUNSELING AIDE, NORMA-Jennifer Aleman Attending Provider [phone] Dr. Melissa Brasher Attending Provider Dr. Melissa Brasher Referring Provider Dr. Melissa Brasher Other Provider Davide Chao MD Primary Care Provider DAVIDE CHAO Primary Care Unavaila SON Dorman W Attending Unavailable DAVIDE CHAO Primary Care Unavaila CHEYANNE Bassett Attending Unavailable DAVIDE CHAO Primary Care Unavaila SON Dorman W Attending Unavailable DR DAVIDE CHAO MD Primary Care Physician RAMON PULLIAM MD Attending Unavailable DR DAVIDE CHAO MD Primary Care Unavailab larissa Mabryhochrista DIRECTOR OF MANAGED CARE.LEAVE COORDINATOR, Harini Unavailable Frank DIRECTOR OF MANAGED CARE.LEAVE COORDINATOR, Isaac Unavailable ALINA ALVARADO Referring Unavailable ALINA ALVARADO Attending Unavailable DAVIDE CHAO Primary Care Unavailable Dr. Davide Chao MD Primary Care Provider Dr. Davide Chao MD Referring Provider Anna PREPAROLE COUNSELING AIDE-CLove Attending Provider Anna PREPAROLE COUNSELING AIDE-CLove Referring Provider Laura Salinas CNM Attending Provider Jarred Salinas CNMsay Referring Provider Dr. Melissa Brasher DO Attending Provider Dr. Melissa Brahser DO Referring Provider DAVIDE CHAO Referring Unavailable DAVIDE CHAO Primary Care Unavailable DAVIDE CHAO Primary Care Unavailable RAYO NIELSON Attending Unavailable DAVIDE CHAO Primary Care Unavailable RAYO NIELSON Referring Unavailable DAVIDE CHAO Primary Care Unavailable DAVIDE CHAO Attending Unavailable DAVIDE CHAO Attending Unavailable DAVIDE CHAO Primary Care Unavailable DAVIDE CHAO Attending Unavailable DAVIDE CHAO Primary Care Unavailable ELDERBROSYDNYE, DAVIDE Oglesby Referring Unavailable ELDERBROCK, DAVIDE Oglesby Primary Care Unavailable ELDERBROCK, DAVIDE Oglesby Primary Care Unavailable SNELL, MARINA Attending Unavailable CHANNING, MARINA Referring Unavailable ELDERBROCK, DAVIDE Oglesby Primary Care Unavailable ELDERBROCK, DAVIDE Oglesby Attending Unavailable ELDERBROCK, DAVIDE Oglesby Primary Care Unavailable ELDERBROCK, DAVIDE Oglesby Attending Unavailable ZHANNA, DAVIDE Oglesby Primary Care Unavailable Clotildehochrista DIRECTOR OF MANAGED CARE.BONITA, Harini Unavailable Dr. Davide Chao MD Primary Care Provider Dr. Davide Chao MD Referring Provider [phone] Pranav DIRECTOR OF MANAGED CARE.LEAVE COORDINATOR, Harini Hewitt Unavailable Jeanette Roach CNM Attending Provider [phone] Jeanette Roach CNM Referring Provider Dr. Davide Chao MD Primary Care Provider Larissa GONZALEZ, Dr. Davis Emergency Provider [phone] EDUARDO, TRISTIN DO Admitting Unavailable EDUARDO, TRISTIN DO Primary Care Unavailable EDUARDO, TRISTIN DO Attending Unavailable DAVIDE CHAO Consulting Unavailable DAVIDE CHAO Referring Unavailable PROVIDER, UNKNOWN Consulting Unavailable MANFRED, ANTONETTE E Admitting Unavailable MANFRED, ANTONETTE E Primary Care Unavailable MANFRED, ANTONETTE E Attending Unavailable ZHANNA, DAVIDE Oglesby Consulting Unavailable PROVIDER, UNKNOWN Consulting Unavailable DAVIDE CHAO Consulting Unavailable EDUARDO, TRISTIN DO Attending Unavailable EDUARDO, TRISTIN DO Primary Care Unavailable EDUARDO, TRISTIN DO Admitting Unavailable ZHANNA, DAVIDE Oglesby Referring Unavailable PROVIDER, UNKNOWN Consulting Unavailable Dr. Davide Chao MD Primary Care Provider Dr. Melissa Brasher DO Attending Provider Dr. Melissa Brasher DO Referring Provider Dr. Ryan Pearson DO Attending Provider [phone] Bre Madrid MD Attending Provider [phone] Dr. Melissa Brasher DO Other Provider [phone] DAVIDE CHAO Primary Care Unavailable ALINA ALVARADO Attending Unavailable SELF, SELF Referring Unavailable Vande Velde, Melissa Attending Unavailabl e Vande Velde, Melissa Referring Unavailabl e [place], Davide Primary Care Unavailable [place], Davide Primary Care Unavailable Doc, Jeanette Referring Unavailable Jeanette Roach Attending Unavailable Salinas, Laura Referring Unavailable Salinas, Laura Attending Unavailable [place], Davide Primary Care Unavailable Salinas, Laura Attending Unavailable [place], Davide Referring Unavailable [place], Davide Primary Care Unavailable Drayton PREPAROLE COUNSELING AIDELove Attending Unavailable [place], Davide Referring Unavailable [place], Davide Primary Care Unavailable Vande Velde, Melissa Attending Unavailabl e [place], Davide Referring Unavailable [place], Davide Primary Care Unavailable Vande Velde, Melissa Attending Unavailabl e Vande Velde, Melissa Referring Unavailabl e [place], Davide Primary Care Unavailable [place], Davide Primary Care Unavailable Ryan Pearson Attending Unavailable Vande Velde, Melissa Attending Unavailabl e Vande Velde, Melissa Referring Unavailabl e [place], Davide Primary Care Unavailable Vande Velde, Melissa Attending Unavailabl e Vande Velde, Melissa Referring Unavailabl e [place], Davide Primary Care Unavailable [place], Davide Primary Care Unavailable PESEK, ROBERTO Referring Unavailable PESEK, ROBERTO Attending Unavailable Vande Velde, Melissa Attending Unavailabl e Vande Velde, Melissa Consulting Unavailabl e Vande Velde, Melissa Referring Unavailabl e [place], Davide Primary Care Unavailable Vande Velde, Melissa Attending Unavailabl e Vande Velde, Melissa Referring Unavailabl e [place], Davide Primary Care Unavailable Anna PREPAROLE COUNSELING AIDE, Love Referring Unavailable Anna PREPAROLE COUNSELING AIDELove Attending Unavailable [place], Davide Primary Care Unavailable Salinas, Laura Referring Unavailable Salinas, Laura Attending Unavailable [place], Davide Primary Care Unavailable ALINA ALVARADO Attending Provider ALINA ALVARADO Referring Provider Dr. Davide Chao MD Referring Provider Allergies Allergy Classification Reported Allergen(s) Allergy Type Date of Onset Reaction(s) Facility Penicillins (antibiotic) (2 sources) Penicillins Drug Allergy 05-13-20 15 [facility] (8 sources) Penicillins; 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: [PENICILLINS] Drug allergy (disorder) 01-16-20 08 Rash [facility] Repository (6 sources) TRICYCLIC COMPOUNDS; 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: [TRICYCLIC COMPOUNDS] Propensity to adverse reactions (disorder) 08-16-19 12 Other: See Comments [facility] Repository (20 sources) Lactose; 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: [LACTOSE] Drug Allergy 08-21-19 19 GI Upset, Dyspepsia [facility] Other [place] Repository (1 source) Penicillin; 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: [PENICILLIN G] Drug Allergy [facility] Repository (4 sources) Tricyclic Antidepressants; 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: [TRICYCLIC ANTIDEPRESSANTS] Propensity to adverse reactions to drug (disorder) 08-16-19 12 [facility] Repository (15 sources) Penicillins; 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: [Penicillins] Allergy to drug (finding) [facility] [employer] Work Phone: (15 sources) Tetracycline; 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: [tetracycline] Drug Allergy [facility] [employer] Work Phone: (20 sources) guaiFENesin; 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: [GUAIFENESIN] Drug Allergy 10-31-19 Other: See Comments [facility] (20 sources) metroNIDAZOLE; 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: [METRONIDAZOLE HCL] Drug Allergy 09-27-19 19 GI Upset [facility] Work Phone: (20 sources) Dog Dander; 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: [DOG DANDER] Drug Allergy 10-26-19 Other: See Comments [facility] (20 sources) Tricyclic Antidepressants And Tricyclic Compounds; 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: [TRICYCLIC ANTIDEPRESSANTS AND TRICYCLIC COMPOUNDS] Drug Intolerance 08-16-19 12 Other: See Comments [facility] Work Phone: (1 source) Penicillins Propensity to adverse reactions to drug 09-19-19 [facility] (3 sources) Antidepressants Propensity to adverse reactions 07-29-19 23 Other [facility] (20 sources) metroNIDAZOLE Drug Allergy 09-27-19 19 Dyspepsia [facility] (3 sources) *Animal Dander Propensity to adverse reactions to substance 10-26-19 [facility] (20 sources) traZODone Drug Allergy 10-29-19 23 suicidal ideation [facility] (20 sources) Tetracyclic Antidepressants Propensity to adverse reactions 10-29-19 suicidal ideation [facility] (20 sources) Tricyclic Antidepressants and Tricy Propensity to adverse reactions 10-29-19 suicidal ideation [facility] (2 sources) guaiFENesin Drug Allergy 10-31-19 [facility] (1 source) metroNIDAZOLE Drug Allergy 11-24-19 [facility] Repository (1 source) Tricyclic Antidepressants and Tricy Drug allergy (disorder) 11-24-19 [facility] Repository (1 source) Tetracyclic Antidepressants Drug allergy (disorder) 11-24-19 [facility] Repository (1 source) Phenylpiperazine Antidepressant Drug allergy (disorder) 11-24-19 [facility] Repository Medications Current Medications Medication Drug Class(es) [...] tablet Chew 1 tablet daily. 0 Active cetirizine hydrochloride 10 mg oral tablet (1 [...] to 60 days. 21 day ethinyl estradiol 0.515708 mg/hr / etonogestrel 0.005 mg/hr vaginal system [...] 28 tablet 1 06/07/2023 08/02/2023 Active LORazepam 0.5 mg oral tablet (20 sources) Benzodiazepine Start: 01-03-2025 take 1 tablet by mouth twice daily as needed Lorazepam (Ativan) 0.5 mg tablet Active 0.5 mg PO TWICE A DAY as needed January 03, 2025 12:00am Start: 03-29-2024 End: 04-28-2024 take 1 tablet [...] Start: 06-28-2023 take 1 tablet by abraham th three times daily Lorazepam (Ativan) 1 mg [...] 90 days. Take 1 tablet by abraham twice daily as needed for anxiety for up to 15 days. Take 1 tablet by abraham two times a day as needed for anxiety for up to 90 days. Take 1 tablet by abraham th two times a day as needed for anxiety for up to 30 days. Magnesium (1 source) Start: 5 take 1 tablet by mouth once daily Magnesium 200 mg tablet Active 200 mg PO daily January 03, 2025 12:00am meclizine hydrochloride 25 mg oral tablet (1 [...] effect. Use care when operating dangerous machinery. Rumson (Nk) (2 sources) Start: 5 Rumson (Nk) Active November 23, 2024 12:00am 12 hr orphenadrine citrate 100 mg extended release oral tablet (5 sources) Muscle Relaxant Start: 3 take 1 tablet by mouth twice daily as needed for muscle spasms orphenadrine (NORFLEX) 100 MG extended release tablet Take 1 tablet by mouth 2 times daily as needed for Muscle spasms 10 tablet 0 07/14/2022 Active Start: 07-13-2022 End: 07-13-2022 orphenadrine (NORFLEX) injec tion 30 mg Prenat.Vits,Malgorzata,Yvi-Jkoq-Evb ic tablet (1 source) Start: 01-03-2025 Prenat.Vits,Malgorzata,Wjb-Urlk-Nbv ic tablet Active {tbl} PO January 03, 2025 12:00am 1 oral capsule (2 sources) take 1 capsul e by mouth once daily 1 oral capsule ; 1 cap(s) orally once a day Quantity: 0 Refills: 0 Ordered: 14-Jul-2021 Blust, Elba Generic Substitution Allowed Nmwzbupw-Oqx-Ls-FA (PRE- PO) (3 sources) take 1 capsul e by mouth once daily Dugbbqrl-Mmk-Ym-FA (PRE-CARLTON PO) Take 1 capsule by mouth daily. 0 Active propranolol hydrochloride 40 mg oral tablet (9 sources) beta-A [facility] Marcia herrera Start: 06-10-2024 take 1 tablet by mouth twice daily as needed propranolol (INDERAL) 40 mg tablet Indications: Anxiety , Elevated blood pressure reading without diagnosis of hypertension Take 1 tablet by mouth two times a day as needed (panic attacks). 30 tablet 5 06/10/2024 Active sotalol hydrochloride 80 mg oral tablet (3 sources) Antiar rhythm ic Start: 01-27-2017 End: 07-13-2022 sotalol 80 mg oral tablet Do se : 80 mg = 1 tab(s), Oral, BID, # 180 tab(s), 0 Refill(s) Start Date: 01/27/17 Status: Ordered End: 06-23-2021 sotalol 80 MG Tab tablet Deandre e 40 mg by mouth 2 times daily. 0 06/23/2021 Discontinued (Stop Taking at Discharge) zinc acetate 25 mg oral capsule (1 source) Start: 01-03-2025 take 1 capsule by mouth once daily Zinc Acetate 25 mg (zinc) capsule Active 25 mg PO daily January 03, 2025 12:00am Zofran ODT 4 mg oral tablet, disintegrating [...] times daily PRN, sleep, Starting 09/26/20 at 2017 amoxicillin 500 mg oral capsule (4 sources) [...] medi cation unless otherwise directed by prescriber. atomoxetine 18 mg oral capsule (18 sources) Norepinephrine Reuptake Inhibitor Start: 06-25-2024 End: 11-23-2024 take 1 capsule by mouth once daily Atomoxetine (Strattera) 18 mg capsule Discontinued 36 mg PO daily August 19, 2024 12:00am November 23, 2024 8:26pm Start: 06-10-2024 End: 08-06-2024 take 1 capsule by mouth once daily atomoxetine (STRATTERA) 40 mg capsule Indications: ADHD (attention deficit hyperactivity disorder), combined type Take 1 capsule by mouth once daily. 30 capsule 2 06/10/2024 08/06/2024 Discontinued (Changing Therapy/Dosage Form) azithromycin 500 mg oral tablet (19 sources) Macrolide Antimicrobial Start: 01-19-2023 End: 03-04-2023 take 1 tablet by mouth once Azithromycin 500 mg tablet Discontinued 500 mg PO ONCE 2 January 19, 2023 12:00am March 04, 2023 4:14am Chlamydia infection affecting Chlamydial infection, unspecified On Hold: Order Changed busPIRone hydrochloride 7.5 mg oral tablet (18 sources) Start: 01-27-2023 End: 06-28-2023 take 1 tablet by mouth three times daily as needed for anxiety Buspirone 7.5 mg tablet Discontinued 7.5 mg PO THREE TIMES A DAY as needed for anxiety 30 January 27, 2023 12:00am June 28, 2023 2:37pm cephalexin 500 mg oral capsule (19 sources) Cephalosporin Antibacterial Start: 01-16-2023 End: 03-04-2023 take 1 capsule by mouth every six hours Cephalexin 500 mg capsule Discontinued 500 mg PO EVERY 6 HOURS 40 10 January 16, 2023 12:00am March 04, 2023 [...] 20 mg tablet Discontinued 0 .ROUTE .COMPLEX 30 April 20, 2023 11:38am June 28, 2023 2:36pm take 1 tablet by mouth once daily Start: 10-05-2020 Escitalopram O xalate 10 MG Oral Tablet Quantity: 0 Refills: 0 Ordered: 30-Oct-2020 DO Start : 05-Oct-2020 Active take 2 tablets by mo ut once daily escitalopram 10 MG tablet Take [...] 25, 2021 1:00am February 28, 2023 4:16pm heartburn On Hold: Pt stated not taking Start: [...] tablet (20 sources) Start: 05-07-20 End: 07-17-19 17 take 1 tablet by mouth twice daily [...] on above: Take 1 capsule by mo [facility] three times a day for 90 days. hydrOXYzine pamoate 25 mg oral capsule (6 sources) Antihistamine Start: 11-30-19 take 1 capsule by mouth every eight hours as needed hydrOXYzine pamoate (VISTARIL) 25 mg capsule Take 1 capsule by mouth three times daily as needed for anxiety. 30 capsule 5 11/29/2021 Active Comment on above: Take 1 capsule by mo [facility] three times daily as needed for anxiety. ibuprofen 400 mg oral tablet (3 sources) Nonsteroidal Anti-inflammatory Drug Start: 09-02-19 19 End: 09-02-19 19 ibuprofen (ADVIL,MOTRIN) tablet 400 mg take 1 tablet by abraham th every six hours as needed Motrin 600 mg oral tablet ; 1 tab(s) ora lly every 6 hours, As Needed Quantity: 0 Refills: 0 Ordered: 14-Oct-2021 Luke Euceda Generic Substitution Allowed lactobacillus acidophilus [id number] unt oral capsule (18 sources) Start: 09-21-2023 End: 08-19-2024 take 10 capsules by mouth once daily Lactobacillus Acidophilus (Probiotic) 10 billion cell capsule Discontinued 100 NMA PO DAILY September 21, 2023 12:00am August 19, 2024 3:42pm End: 03-29-2024 take 2 tablets by mouth once daily Lactobacillus acidophilus (PROBIOTIC ORAL) Take 2 tablets by mouth once daily. 03/29/2024 Discontinued take 2 tablets by [facility] once daily Lactobacillus acidophilus (PROBIOTIC ORAL) Take 2 tablets by mouth once daily. Active take 2 tablets by [facility] once daily Lactobacillus acidophilus (PROBIOTIC ORAL) Take [...] Comment on above: Take 1 tablet by [facility] one time only for 1 dose. lidocaine [...] patch. metoprolol tartrate 25 mg oral tablet (17 sources) beta-Adrenergic Swapnil Start: 4 End: 5 [...] 12/08/2023 Discontinued metroNIDAZOLE 500 mg oral tablet (16 sources) Nitroimidazole Antimicrobial Start: 05-01-2024 End: 05-04-2024 take 1 tablet by mouth twice daily Metronidazole 500 mg tablet Discontinued 500 mg PO TWICE A DAY 6 3 0 May 01, 2024 10:43am May 03, 2024 1:00am May 04, 2024 1:15am Start: 04-22-2024 End: 04-29-2024 take 1 tablet by mouth twice daily Metronidazole 500 mg tablet Discontinued 500 mg PO TWICE A DAY 14 7 0 April 22, 2024 1:00am April 28, 2024 [...] or milk. naproxen 500 mg oral tablet (9 sources) Nonsteroidal Anti-inflammatory Drug Start: 10-03-2023 End: 10-11-2023 take 1 tablet by mouth twice daily as needed for pain Naproxen 500 mg tablet Discontinued 500 mg PO TWICE A DAY as needed for pain 0 October 03, 2023 12:00am October 11, 2023 9:41am nitroglycerin 0.4 mg/actuat mucosal spray (1 source) Nitrate Vasodilator Start: 06-09-2023 End: 06-09-2023 nitroGLYCERIN (NITROLINGUAL) spray 1 spray norethindrone acetate 5 mg oral tablet (12 sources) Start: 06-28-2023 End: 09-04-2023 Norethindrone Acetate 5 mg tablet Discontinued 5 mg PO .COMPLEX 45 0 June 28, 2023 1:00am September 04, 2023 8:13am 5 mg PO tid until bleeding stops X 24 hr then bid to finish Rx omeprazole 20 mg delayed release oral capsule (20 sources) Proton Pump Inhibitor Start: 01-16-2023 End: 03-18-2023 take 1 capsule by mouth once daily Omeprazole Magnesium (Acid Autocutter (Omeprazole)) 20 mg capsule,delayed release(DR/EC) Discontinued 20 mg PO DAILY 30 February 28, 2023 4:16pm March 18, 2023 1:48am indigestion Start: 10-27-2022 End: 03-28-2023 take 1 capsule by mouth once daily omeprazole (PRILOSEC) 40 mg capsule Indications: Gastritis without bleeding, unspecified chronicity, unspecified gastritis type Take 1 capsule by mouth once daily. 30 capsule 5 10/27/2022 03/28/2023 Discontinued Start: 06-21-2022 take 1 capsule by [facility] once daily omeprazole (PRILOSEC) 40 mg capsule Indications: Gastritis without bleeding, unspecified chronicity, unspecified gastritis type Take 1 capsule by mouth once daily. 30 capsule 5 06/21/2022 Active take 1 capsule by [facility] once daily omeprazole (PRILOSEC) 10 MG delayed release capsule Take 10 mg by mouth daily 0 Active take 1 capsule by mo [facility] once daily omeprazole (PRILOSEC) 20 MG capsule Take 20 mg by mouth daily 0 Active Comment on above: Take 1 capsule by mo [facility] once daily. ondansetron 4 mg disintegrating oral [...] nausea/vomiting. oxyCODONE hydrochloride 5 mg oral tablet (13 sources) Opioid Agonist Start: 03-11-20 End: 06-28-19 24 take 1 tablet by mouth three times daily as needed for pain Oxycodone 5 mg tablet Discontinued 5 mg PO THREE TIMES A DAY as needed for pain 20 7 0 March 11, 2023 June 28, 2023 2:36pm Status post tubal ligation Tubal ligation status pantoprazole 40 mg delayed release oral tablet (20 sources) Proton Pump Inhibitor Start: 03-29-20 End: 11-24-19 take 1 tablet by mouth once daily Pantoprazole (Protonix) 40 mg tablet,delayed release (DR/EC) Discontinued 40 mg PO daily August 19, 2024 12:00am November 23, 2024 8:26pm Start: 09-27-2020 End: 09-26-2020 take 40 mg by mouth once daily 40 mg, Oral, Daily, Fir st dose on 09/27/20 at 0900 DO NOT CRUSH OR CHEW. End: 07-13-2022 take 1 tablet by mouth once daily pantoprazole (PROTONIX) 20 MG tablet Take 20 mg by mouth daily 0 07/13/2022 Discontinued (LIST CLEANUP) phenazopyridine hydrochloride 95 mg oral tablet (9 sources) Start: 09-21-2023 End: 08-19-2024 take 2 tablets by mouth once daily [...] tablet,ER particles/crystals Discontinued 0 .ROUTE .COMPLEX 6 0 January 31, 2023 9:56am March 04, 2023 [...] 0 Refills: 0 Ordered: 12-Jul-2021 DO Active Qcylxebc-Jp-Leu-F e-FA ( VITAMIN) tab (5 sources) End: 3 take 1 tablet by mouth once Kjnkshax-Di-Hog-Fe-F A ( VITAMIN) tab Take 1 tablet by mouth. 0 06/21/2022 Discontinued take 1 tablet by mouth once Pren atal Ipsjafmz-Cb-Grw-Fe-FA ( VITAMIN) tab Take 1 tablet by mouth. 0 Active Comment on above: Take 1 tablet by abraham th. Vit-Iron Fum-Folic Ac ( Fa) 60 mg iron-1 mg Tablet (20 sources) Start: 06-25-2021 End: 03-18-2023 Vit-Iron Fum-Folic Ac ( Fa) 60 mg iron-1 mg Tablet Discontinued 1 {tbl} PO DAILY June 25, 2021 1:00am March 18, 2023 1:48am Start: 06-25-2021 End: 03-18-2023 Vit-Iron Fum-Folic Ac [...] as needed for nausea and vomiting 60 2 January 18, 2023 12:00am March 04, 2023 [...] tablet (5 sources) Start: 05-03-20 End: 06-21-19 take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 Cholesterol.total/Chol esterol in HDL [Mass ratio] 3.71 {ratio} Normal <5.10 [facility] Comment on above: Order Comment: Speci men Type: BLOOD SPECIMENOrdering Facility: [facility] Address: [address] [place] [address] Performed By: #### 2 4331-1, 32260-1 ####[facility] LABCLIA [id number] [place] [address] [place] FASTING TIME 12 hrs Normal [facility] Comment on above: Order Comment: Speci men Type: BLOOD SPECIMENOrdering Facility: [facility] Address: [address] [place] [address] Performed By: #### 2 4331-1, ####[facility] LABCLIA [id number] [place] [address] [place] Triglyceride [Mass/Vol] 105 mg/dL Normal <150 [facility] Comment on above: Order Comment: Speci men Type: BLOOD SPECIMENOrdering Facility: [facility] Address: [address] [place] [address] Result Comment: <150 mg/dL, Normal 150-199 mg/dL, Borderline high 200-499 mg/dL, High >499 mg/dL, Very high Performed By: #### 2 4331-1, 49722-6 ####[facility] LABCLIA [id number] [place] [address] [place] Antimullerian Hormone, Serum on 07-29-2024 AMH, SERUM 2.36 ng/mL Normal . [facility] Comment on above: Result Comment: For assays employing antibodies, the possibility exists for interference by heterophile antibodies in the samples.1 1.Himanshu Quintana Interferences in Immunoassays - still a threat. Clin. Chem. 2000; 46: 3590-4183. This test was developed and its performance characteristics determined by [employer]. It has not been cleared or approved by the Food and Drug Administration. Reference Range: Females 31 - 35y: 0.66 - 8.75 Median 3.00 AMH concentrations of >= 1.06 ng/mL is correlated with a better response to ovarian stimulation, produced more retrievable oocytes and higher odds of live according to Reddyer et al. Fertility and Sterility. 2010: 94:1729-7798. The current AMH test method correlates with [...] exclude an AMH-secreting ovarian tumor. Performed at: [facility] [address] [place] [id number] Christmas Bell Ringer: Jasen Davila MD, Phone: [phone] Performed By: #### M 100.2000, M100.3200 #### [facility] [address] [place] [address]. [place], [place], [address] Direct serum free thyroxine (FT4) measurementOrdered By: Laura Salinas on 07-24-2024 Free T4 [Mass/Vol] 1.06 ng/dL 0.76-1.46 [facility] Flecainide [Mass/Vol]Ordered By: Laura Salinas on 07-24-2024 Anti-Mullerian Hormone 2.36 ng/mL . [facility] Comment on above: For assays employing antibodies, the possibility exists forinterference by heterophile antibodies in the samples.11.Himanshu Quintana Interferences in Immunoassays - still a threat. Clin. Chem. 2000; 46: 8394-2937.This test was developed and its performance characteristicsdetermined by [employer]. It has not been cleared or approvedby the Food and Drug Administration.Reference Range:Females 31 - 35y: 0.66 - 8.75Median 3.00AMH concentrations of >= 1.06 ng/mL is correlated with abetter response to ovarian stimulation, produced moreretrievable oocytes and higher odds of live accordingto Ryan et al. Fertility and Sterility. 2010:94:1070-3684. The current AMH test method correlates withthe [...] or exclude an AMH-secreting ovarian tumor.Performed at: [facility] [address] [place], [place] [id number] Director: Jasen Davila MD, Phone: [phone] Free T3on 07-24-2024 Free T3 [Mass/Vol] 2.9 pg/mL Normal 2.18-3.98 [facility] Comment on above: Performed By: #### M 100.2000, M100.3200 #### [facility] [place], [address] Free R8Ucashqg By: Laura weathers on 07-24-2024 Free T3 [Mass/Vol] 2.9 pg/mL 2.18-3.98 [facility] Free Triiodothyronine (T3) pg/dL 2.9 pg/mL 2.18-3.98 [facility] Serum or plasma flecainide m easurement (mass/volume)Ordered By: Laura Salinas on 07-24-2024 Flecainide [Mass/Vol] 2.36 ng/mL . [facility] Comment on above: For assays employing antibodies, the possibility exists forinterference by heterophile antibodies in the samples.11.Himanshu Jacobo. Interferences in Immunoassays - still a threat. Clin. Chem. 2000; 46: 7122-8144.This test was developed and its performance characteristicsdetermined by [employer]. It has not been cleared or approvedby the Food and Drug Administration.Reference Range:Females 31 - 35y: 0.66 - 8.75Median 3.00AMH concentrations of >= 1.06 ng/mL is correlated with abetter response to ovarian stimulation, produced moreretrievable oocytes and higher odds of live accordingto Ryan et al. Fertility and Sterility. 2010:94:1654-5216. The current AMH test method correlates withthe [...] or exclude an AMH-secreting ovarian tumor.Performed at: [facility] [address] [id number] Director: Jasen Davila MD, Phone: [phone] Serum or plasma thyroid stim ulating hormone (TSH) measurement (units/volume)Ordered By: Laura Salinas on 07-24-2024 TSH Qn 1.170 uIU/mL 0.358-3.740 [facility] T4 Free Directon 07-24-2024 T4 FREE DIRECT 1.06 ng/dL Normal 0.76-1.46 [facility] Comment on above: Performed By: #### M , 0 #### [facility] [address] [place], [place], [id number] TSH QnOrdered By: Laura hou on 07-24-2024 Thyroid Stimulating Hormone (TSH) 1.170 uIU/mL 0.358-3.740 [facility] Thyroid Stim Hormone (TSH)on 07-24-2024 TSH 1.170 uIU/mL Normal 0.358-3.740 [facility] Comment on above: Performed By: #### M , 0 #### [facility] [address] [place], [place], [id number] Genital Culture Comprehensiv tiara 06-11-2024 VAC Reason for Exam: Vaginal discharge Normal vaginal kenny isolated. No yeast, Gardnerella, Neisseria or beta-hemolytic Streptococcus isolated. Normal [facility] Comment on above: Performed By: #### M 100.2000, M100.3200 #### [facility] [address] 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 Follows with Cardiology due to hx of arrhythmia, has taken Metoprolol 25 mg daily. No refills lately. 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 Normal [facility] Genital cultureOrdered By: Omer Castillo on 06-10-2024 Genital Culture Neisseria or beta-hemolytic Streptococcus isolated. [facility] Gram Stainon 06-10-2024 GS Reason for Exam: Vaginal discharge Gram Stain 3+ White Blood Cells 4+ Gram positive rods No Gram negative diplococci Score = 0 Interpretation: 0-3 Normal, 4-6 Intermediate, 7-10 Positive BV Normal [facility] Comment on above: Performed By: #### M 100.2000, M100.3200 #### [facility] [place], [address] Gram stainOrdered By: Love Castillo on 06-10-2024 Microscopic observation Gram stain Nom (Unsp spec) [facility] No Panel Informationon 06-10 POC Bacterial Vaginitis (Rapid) Negative [facility] Laundry Attendant Office Visit Reporton 06-10-2024 Laundry Attendant Office Visit Report [facility] [address], [address] [place] [address] OFFICE VISIT Date of Service: 06/10/24 MR#: [id number] Acct: [id number] Name: QUE SANCHEZ Rep #: [id number] : 1990 Provider: MALENA samuels Age/Sex: 34/F Location: [facility] Status: Signed Intake Vital Signs 04/19/24 13:51 06/10/24 13:57 06/10/24 14:04 Height 5 ft 6 in 5 ft 6 in 5 ft 6 in Weight: 183 lb 6 oz 176 lb 6 oz BMI 29.5 28.4 BP 118/80 112/74 Intake Visit Reasons: vaginal odor/cyst Chief Complaint: Vaginal odor/cyst Processing Lead Required: No Is patient in pain?: No [...] She and are planning to go to [place] so she can have a tubal reversal. [...] full term 7lbs 2oz Female [address] [facility] [address] Emilia Jung 09/07/10 Bridget 39 live - full term 7lbs 4oz Female 46 hours [facility] Satya 07/12/12 Pj 38 live - full term 7lbs 6oz Male 4 hours [facility] Jim Piña 07/15/16 Missy 37 live - full term 7lbs 8oz Male 12 hours [facility] eRny Jurado 10/12/21 Aurora 40 live - full term 8lbs 2oz Male Christina Rueda Will 03/10/24 Von live - full term Male SM Delivery Date: 02/23/08 Last Updated by: Tameka Harp Cord wrapped around neck twice and around body once. Born not breath (more content not included)... Normal [facility] Chlamydia/GC MAYTE aptimaon CHLAMY,NUC ACID Negative Normal Negative [facility] Comment on above: Performed By: #### M , .3200 #### [facility] [address] [place], [address] GC BY NUC ACID Negative Normal Negative [facility] Comment on above: Result Comment: Perf ormed at: =G - [facility] [address] [id number] Christmas Bell Ringer: Rita Vallecillo MD, Phone: [phone] Performed By: #### M , M100.3200 #### [facility] [address] [place], [address] Genital Culture Comprehensiv tiara 04-21-2024 VAC Reason for Exam: vaginal odor G. vaginalis (Presumptive) Amount Growth 3+ Normal [facility] Comment on above: Performed By: #### M , .3200 #### [facility] [address] [place], [address] Free T3on 04-19-2024 Free T3 [Mass/Vol] 2.9 pg/mL Normal 2.18-3.98 [facility] Comment on above: Performed By: #### M , M1.3200 #### [facility] [address] [place], [address] Gram Stainon 04-19-2024 GS Reason for Exam: vaginal odor Gram Stain 4+ Gram variable alma 1+ Epithelial cells 1+ White Blood Cells No Gram negative diplococci 1+ Clue Cells Rare Gram positive cocci Score = 8 Interpretation: 0-3 Normal, 4-6 Intermediate, 7-10 Positive BV Normal [facility] Comment on above: Performed By: #### M 100.2000, M100.3200 #### [facility] [address] [place], [address] Laundry Attendant Office Visit Reporton 04-19-2024 Laundry Attendant Office Visit Report [facility] [address], [address] [place] [address] OFFICE VISIT Date of Service: 04/19/24 MR#: [id number] Acct: [id number] Name: QUE SANCHEZ Rep #: [id number] : 1990 Provider: TIM dalal Age/Sex: 34/F Location: [facility] Status: Signed Intake Vital Signs 10/11/23 09:39 04/17/24 09:08 04/19/24 13:51 Height 5 ft 6 in 5 ft 6 in 5 ft 6 in Weight: 176 lb 4 oz 183 lb 6 oz BMI 28.4 29.5 BP 99/71 118/80 Intake Visit Reasons: Vaginal infection, late menses Processing Lead Required: No Is patient in pain?: No [...] Labor Lgth Anesthesia Del Locatn Provider FOB 09/20/08 Radha 42 live - full term 7lbs 2oz Female [address] [facility] [address] Emilia Jung 09/07/10 Bridget 39 live - full term 7lbs 4oz Female 46 hours [facility] Satya 07/12/12 Pj 38 live - full term 7lbs 6oz Male 4 hours [facility] Mc intomacarena Piña 07/15/16 Missy 37 live - full term 7lbs 8oz Male 12 hours [facility] Reny Jurado [birth year] [place] 40 live - full term 8lbs 2oz Male Christina urbina Mohit Will Delivery Date: 02/23/08 Last Updated by: Tameka Harp Cord wrapped around neck twice and around body once. Born not breathing Delivery Date: 09/07/10 Last Updated by: Tameka Harp Cord around neck x1 Delivery Date: 07/12/12 Last Updated by: Tameka Harp Blood pressure dropped, passed out during labor, was getting prepped for csection when she w (more content not included)... Normal [facility] T4 Free Directon 04-19-2024 T4 FREE DIRECT 1.08 ng/dL Normal 0.76-1.46 [facility] Comment on above: Performed By: #### M 100.1999, M100.3200 #### [facility] [address] [place], [place], [address] Thyroid Stim Hormone (TSH)on 04-19-2024 TSH 1.430 uIU/mL Normal 0.358-3.740 [facility] Comment on above: Performed By: #### M 100.1999, M100.3200 #### [facility] [address] [place], [place], [address] hCG Titer Quant., Serumon HCG QUANT. < 1 Normal 1-3 [facility] Comment on above: Result Comment: hCG levels with Gestational Age Gestational Age hCG mIU/mL (IU/L) 0.2 - 1 week 5 - 50 1-2 weeks 50 - 500 2-3 weeks 100 - 5000 3-4 weeks 500 - 16891 4-5 weeks 1000 - 15983 5-6 weeks 32081 - 100,000 6-8 weeks 34437 - 200,000 2-3 months 53264 - 100,000 Performed By: #### M 100.2000, M100.3200 #### [facility] [place], [address] .Auto Diffon 03-22-2024 Basophil, Absolute 0.0 10 3/mcL Normal 0.0-0.2 [facility] Comment on above: Performed By: #### A MEERA DALE MDW, GFR, CBC, MORPH, TROPHS, BMP #### [address] [address] Basophils/100 WBC (Bld) 0.4 % Normal 0.0-2.5 [facility] Comment on above: Performed By: #### A MEERA DALE MDW, GFR, CBC, MORPH, TROPHS, BMP #### [address] [address] Eosinophil, Absolute 0.2 10 3/mcL Normal 0.0-0.7 [facility] Comment on above: Performed By: #### A MEERA DALE MDW, GFR, CBC, MORPH, TROPHS, BMP #### [address] [address] Eosinophils/100 WBC (Bld) 2.7 % Normal 0.0-7.0 [facility] Comment on above: Performed By: #### A MEERA DALE MDW, GFR, CBC, MORPH, TROPHS, BMP #### [address] [address] Lymphocyte, Absolute 2.2 10 3/mcL Normal 0.9-4.3 [facility] Comment on above: Performed By: #### A MEERA DALE MDW, GFR, CBC, MORPH, TROPHS, BMP #### [address] [address] Lymphocytes/100 WBC (Bld) 29.5 % Normal 20.0-40.0 [facility] Comment on above: Performed By: #### A MEERA DALE MDW, GFR, CBC, MORPH, TROPHS, BMP #### [address] [address] Monocyte, Absolute 0.5 10 3/mcL Normal 0.1-1.4 [facility] Comment on above: Performed By: #### A MEERA DALE MDW, GFR, CBC, MORPH, TROPHS, BMP #### [address] [address] Monocytes/100 WBC (Bld) 7.4 % Normal 2.0-13.0 [facility] Comment on above: Performed By: #### A MEERA DALE MDW, GFR, CBC, MORPH, TROPHS, BMP #### [address] [address] Neutrophils/100 WBC (Bld) 60.0 % Normal 50.0-75.0 [facility] Comment on above: Performed By: #### A MEERA DALE MDW, GFR, CBC, MORPH, TROPHS, BMP #### [address] [address] .GFRon 03-22-2024 GFR 97 ml/min/1.73sqm Normal [facility] Comment on above: Result Comment: GFR Population [...] MDW, GFR, CBC, MORPH, TROPHS, BMP #### [address] [address] GFR Non- 80 ml/min/1.73sqm Normal [facility] Comment on above: Result Comment: GFR Population [...] MDW, GFR, CBC, MORPH, TROPHS, BMP #### [place] [address] .MDWon 03-22-2024 Monocyte Distribution Width 18.30 Normal 0.00-20.00 [facility] Comment on above: Result Comment: For ED adult patients suspected of sepsis, MDW<=20.0 does not rule out sepsis or risk of sepsis Performed By: #### A MEERA DALE MDW, GFR, CBC, MORPH, TROPHS, BMP #### [place] [address] .Morphon 03-22-2024 Platelet Estimate Normal Normal [facility] Comment on above: Performed By: #### A MEERA DALE MDW, GFR, CBC, MORPH, TROPHS, BMP #### [place] [address] .NEUABSon 03-22-2024 Neutrophil, Absolute 4.5 10 3/mcL Normal 2.3-8.1 [facility] Comment on above: Performed By: #### A MEERA DALE MDW, GFR, CBC, MORPH, TROPHS, BMP #### [place] [address] BMPon 03-22-2024 BUN/Creatinine Ratio 15 ratio Normal 7-27 [facility] Comment on above: Performed By: #### A MEERA DALE MDW, GFR, CBC, MORPH, TROPHS, BMP #### [address] [address] Calcium [Mass/Vol] 8.9 mg/dL Normal 8.4-10.2 [facility] Comment on above: Performed By: #### A MEERA DALE MDW, GFR, CBC, MORPH, TROPHS, BMP #### [address] [address] Chloride [Moles/Vol] 103 mmol/L Normal 98-107 [facility] Comment on above: Performed By: #### A MEERA DALE MDW, GFR, CBC, MORPH, TROPHS, BMP #### [place] [address] CO2 [Moles/Vol] 25 mmol/L Normal 22-29 [facility] Comment on above: Performed By: #### A MEERA DALE MDW, GFR, CBC, MORPH, TROPHS, BMP #### [place] [address] Creatinine [Mass/Vol] 0.82 mg/dL Normal 0.55-1.02 [facility] Comment on above: Result Comment: Test ing performed on Siemens Dimension EXL analyzer using a modified kinetic Tyrell technique. Performed By: #### A MEERA DALE MDW, GFR, CBC, MORPH, TROPHS, BMP #### [address] [address] Electrolyte Balance 10.0 mEq/L Normal 4.0-15.0 [facility] Comment on above: Performed By: #### A MEERA DALE MDW, GFR, CBC, MORPH, TROPHS, BMP #### [place] [id number] Glucose [Mass/Vol] 88 mg/dL Normal 70-105 [facility] Comment on above: Performed By: #### A MEERA DALE MDW, GFR, CBC, MORPH, TROPHS, BMP #### [address] [address] Potassium [Moles/Vol] 3.6 mmol/L Normal 3.5-5.1 [facility] Comment on above: Performed By: #### A MEERA DALE MDW, GFR, CBC, MORPH, TROPHS, BMP #### [place] [phone] Sodium [Moles/Vol] 138 mmol/L Normal 136-145 [facility] Comment on above: Performed By: #### A MEERA DALE MDW, GFR, CBC, MORPH, TROPHS, BMP #### [place] [phone] Urea nitrogen [Mass/Vol] 12 mg/dL Normal 7-18 [facility] Comment on above: Performed By: #### A MEERA DALE MDW, GFR, CBC, MORPH, TROPHS, BMP #### [place] [phone] CBCon 03-22-2024 Erythrocyte distribution width (RBC) [Ratio] 13.8 % Normal 11.5-15.5 [facility] Comment on above: Performed By: #### A MEERA DALE MDW, GFR, CBC, MORPH, TROPHS, BMP #### [address] [address] Hematocrit (Bld) [Volume fraction] 40.0 % Normal 34.0-46.0 [facility] Comment on above: Performed By: #### A MEERA DALE MDW, GFR, CBC, MORPH, TROPHS, BMP #### [address] [address] Hgb 14.0 G/dL Normal 12.0-16.0 [facility] Comment on above: Performed By: #### A MEERA DALE MDW, GFR, CBC, MORPH, TROPHS, BMP #### [address] [address] MCH (RBC) [Entitic mass] 30.7 pg Normal 27.0-33.0 [facility] Comment on above: Performed By: #### A MEERA DALE MDW, GFR, CBC, MORPH, TROPHS, BMP #### [address] [address] MCHC 35.0 G/dL Normal 32.0-36.0 [facility] Comment on above: Performed By: #### A MEERA DALE MDW, GFR, CBC, MORPH, TROPHS, BMP #### [address] [address] MCV (RBC) [Entitic vol] 87.6 fL Normal 80.0-99.0 [facility] Comment on above: Performed By: #### A MEERA DALE MDW, GFR, CBC, MORPH, TROPHS, BMP #### [address] [address] Platelet 257 10 3/mcL Normal 150-450 [facility] Comment on above: Performed By: #### A MEERA DALE MDW, GFR, CBC, MORPH, TROPHS, BMP #### [address] [address] Platelet mean volume (Bld) [Entitic vol] 7.8 fL Normal 6.6-10.5 [facility] Comment on above: Performed By: #### A MEERA DALE MDW, GFR, CBC, MORPH, TROPHS, BMP #### [address] [address] RBC 4.56 10 6/mcL Normal 4.10-5.30 [facility] Comment on above: Performed By: #### A MEERA DALE MDW, GFR, CBC, MORPH, TROPHS, BMP #### [address] [address] WBC 7.4 10 3/mcL Normal 4.5-10.8 [facility] Comment on above: Performed By: #### A MEERA DALE MDW, GFR, CBC, MORPH, TROPHS, BMP #### [address] [address] CBC + DIFFon 03-22-2024 Baso # 0.02 x10EE3/UL Normal 0.00 - 0.10 [facility] Comment on above: Performed By: #### 2 42643 ####[facility],[address] [place] [address] Basophils/100 WBC (Bld) 0.3 % Normal 0.0 - 2.0 [facility] Comment on above: Performed By: #### 2 02075 ####[facility],[address] [place] [address] CBC + DIFF Normal [facility] Comment on above: Result Comment: CBC- COMPLETE BLOOD COUNT Performed By: #### 2 00220 ####[facility],[address] [place] [address] EO # 0.27 x10EE3/UL Normal 0.00 - 0.50 [facility] Comment on above: Performed By: #### 2 86631 ####[facility],[address] [place] [address] Eosinophils/100 WBC (Bld) 3.4 % Normal 0.0 - 7.0 [facility] Comment on above: Performed By: #### 2 15872 ####[facility],[address] [place] [address] Erythrocyte distribution width (RBC) [Ratio] 13.9 % Normal 12.0 - 15.6 [facility] Comment on above: Performed By: #### 2 98926 ####[facility],[address] [place] [address] Hematocrit (Bld) [Volume fraction] 43.5 % Normal 34.0 - 46.0 [facility] Comment on above: Performed By: #### 2 82266 ####[facility],[address] [place] [address] Hemoglobin (Bld) [Mass/Vol] 14.3 g/dL Normal 12.0 - 16.0 [facility] Comment on above: Performed By: #### 2 60483 ####[facility],[address] [place] [address] Lymph # 1.83 x10EE3/UL Normal 0.80 - 2.80 [facility] Comment on above: Performed By: #### 2 34761 ####[facility],[address] [place], [place] [id number] Lymphocytes/100 WBC (Bld) 23.0 % Normal 20.0 - 45.0 [facility] Comment on above: Performed By: #### 2 77395 ####[facility],[address] [place], [place] [id number] MANUAL DIFF N/A Normal [facility] Comment on above: Performed By: #### 2 40481 ####[facility],[address] [place] [address] MCH (RBC) [Entitic mass] 29 pg Normal 27 - 33 [facility] Comment on above: Performed By: #### 2 77420 ####[facility],[address] [place] [address] MCHC 33 X10 3 Normal 32 - 36 [facility] Comment on above: Performed By: #### 2 02610 ####[facility],[address] [place] [address] MCV (RBC) [Entitic vol] 89 fL Normal 80 - 99 [facility] Comment on above: Performed By: #### 2 09554 ####[facility],[address] [place] [address] Leon # 0.55 x10EE3/UL Normal 0.20 - 1.00 [facility] Comment on above: Performed By: #### 2 92191 ####[facility],[address] [place] [address] MONOS % 6.9 % Normal 0.0 - 10.0 [facility] Comment on above: Performed By: #### 2 28378 ####[facility],[address] [place] [address] Morphology Subhash (Bld) [Interp] N/A Normal [facility] Comment on above: Performed By: #### 2 77946 ####[facility],[address] [place] [address] Neut # 5.29 x10EE3/UL Normal 1.50 - 7.10 [facility] Comment on above: Performed By: #### 2 47586 ####[facility],[address] [place] [address] Neutrophils/100 WBC (Bld) 66.5 % Normal 46.0 - 76.0 [facility] Comment on above: Performed By: #### 2 24437 ####[facility],[address] [place] [address] PLATELET 281 x10EE3/UL Normal 150 - 450 [facility] Comment on above: Performed By: #### 2 87587 ####[facility],[address] [place] [address] Platelet mean volume (Bld) [Entitic vol] 7.8 fL Normal 6.6 - 10.5 [facility] Comment on above: Result Comment: AUTO MATED DIFFERENTIAL Performed By: #### 2 69711 ####[facility],[address] [place] [address] RBC 4.91 x 10EE6/UL Normal 4.10 - 5.30 [facility] Comment on above: Performed By: #### 2 68039 ####[facility],[address] [place] [address] WBC 8.0 x 10EE3/UL Normal 4.5 - 10.8 [facility] Comment on above: Performed By: #### 2 51786 ####[facility],[address] [place] [address] CMP with eGFRon 03-22-2024 AGE 33 years Normal [facility] Comment on above: Performed By: #### 2 87231 #### [facility],[address] [place] [address] Albumin [Mass/Vol] 3.7 g/dL Normal 3.4 - 5.0 [facility] Comment on above: Performed By: #### 2 48034 #### [facility],[address] [place] [address] Albumin/Globulin [Mass ratio] 1.2 {ratio} Normal 0.9 - 1.6 [facility] Comment on above: Performed By: #### 2 96233 #### [facility],[address] [place] [address] ALK PHOS 104 U/L Normal 46 - 116 [facility] Comment on above: Performed By: #### 2 49606 #### [facility],[address] [place], [place] [id number] ALT [Catalytic activity/Vol] 25 U/L Normal 16 - 63 [facility] Comment on above: Performed By: #### 2 30035 #### [facility],[address] [place] [address] Anion gap [Moles/Vol] 14 mmol/L Normal 10 - 20 [facility] Comment on above: Performed By: #### 2 80246 #### [facility],[address] [place] [address] AST [Catalytic activity/Vol] 18 U/L Normal 13 - 39 [facility] Comment on above: Performed By: #### 2 01220 #### [address] [address] B/C RATIO 17 ratio Normal 0 - 30 [facility] Comment on above: Performed By: #### 2 27824 #### [facility],[address] [place] [address] Bilirubin [Mass/Vol] 0.9 mg/dL Normal 0.2 - 1.0 [facility] Comment on above: Performed By: #### 2 69173 #### [facility],[address] [place] [address] Calcium [Mass/Vol] 8.6 mg/dL Normal 8.5 - 10.1 [facility] Comment on above: Performed By: #### 2 93039 #### [facility],[address] [place] [address] Chloride [Moles/Vol] 105 mmol/L Normal 98 - 107 [facility] Comment on above: Performed By: #### 2 95421 #### [facility],[address] [place] [address] CMP with eGFR Normal [facility] Comment on above: Result Comment: COMP REHENSIVE METABOLIC PANEL Performed By: #### 2 40112 #### [place] [address] CO2 [Moles/Vol] 24.3 mmol/L Normal 21.0 - 32.0 [facility] Comment on above: Performed By: #### 2 20098 #### [facility],[address] [place] [address] Creatinine [Mass/Vol] 0.87 mg/dL Normal 0.55 - 1.02 [facility] Comment on above: Performed By: #### 2 03060 #### [facility],[address] [place] [address] GFR/1.73 sq M.predicted among non-blacks MDRD (S/P/Bld) [Vol rate/Area] mL/min/{1.73_m2} Normal 60 - 999 [facility] Comment on above: Performed By: #### 2 02032 #### [facility],[address] [place] [address] Result Comment: ACCO RDING TO THE NATIONAL KIDNEY DISEASE EDUCATION PROGRAM(NKDE), A NORMAL eGFR IS A VALUE GREATER THAN OR EQUAL TO 60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 men Type: BLOOD SPECIMENOrdering Facility: [facility] Address: [address] [place] [address] Performed By: #### 5 7021-8 ####[facility] [id number] [place] [address] [place] Monocytes (Bld) [#/Vol] 0.62 10*3/uL Normal <0.87 [facility] Comment on above: Order Comment: Speci men Type: BLOOD SPECIMENOrdering Facility: [facility] Address: [address] [place] [address] Performed By: #### 5 7021-8 ####[facility] [id number] [place] [address] [place] Monocytes/100 WBC (Bld) 6.5 % Normal [facility] Comment on above: Order Comment: Speci men Type: BLOOD SPECIMENOrdering Facility: [facility] Address: [address] [place] [address] Performed By: #### 5 7021-8 ####[facility] LABCLIA [id number] [place] [address] [place] Neutrophils (Bld) [#/Vol] 6.26 10*3/uL Normal 1.45-7.50 [facility] Comment on above: Order Comment: Speci men Type: BLOOD SPECIMENOrdering Facility: [facility] Address: [address] [place] [address] Performed By: #### 5 7021-8 ####[facility] LABCLIA [id number] [place] [address] [place] Neutrophils/100 WBC (Bld) 65.8 % Normal [facility] Comment on above: Order Comment: Speci men Type: BLOOD SPECIMENOrdering Facility: [facility] Address: [address] [place] [address] Performed By: #### 5 7021-8 ####[facility] LABCLIA [id number] [place] [address] [place] Nucleated RBC (Bld) [#/Vol] 10*3/uL Normal <0.01 [facility] Comment on above: Order Comment: Speci men Type: BLOOD SPECIMENOrdering Facility: [facility] Address: [address] [place] [address] Performed By: #### 5 7021-8 ####[facility] LABCLIA [id number] [place] [address] [place] Nucleated RBC/100 WBC (Bld) [Ratio] 0.0 /100 WBC Normal [facility] Comment on above: Order Comment: Speci men Type: BLOOD SPECIMENOrdering Facility: [facility] Address: [address] [place] [address] Performed By: #### 5 7021-8 ####[facility] LABCLIA [id number] [place] [address] [place] Platelet mean volume (Bld) [Entitic vol] 10.2 fL Normal 9.0-12.7 [facility] Comment on above: Order Comment: Speci men Type: BLOOD SPECIMENOrdering Facility: [facility] Address: [address] [place] [address] Performed By: #### 5 7021-8 ####[facility] LABCLIA [id number] [place] [address] [place] Platelets (Bld) [#/Vol] 337 10*3/uL Normal 150-400 [facility] Comment on above: Order Comment: Speci men Type: BLOOD SPECIMENOrdering Facility: [facility] Address: [address] [place] [address] Performed By: #### 5 7021-8 ####[facility] LABIA [id number] [place] [address] [place] RBC (Bld) [#/Vol] 4.89 10*6/uL Normal 3.90-5.20 [facility] Comment on above: Order Comment: Speci men Type: BLOOD SPECIMENOrdering Facility: [facility] Address: [address] [place] [address] Performed By: #### 5 7021-8 ####[facility] LABIA [id number] [place] [address] [place] WBC (Bld) [#/Vol] 9.52 10*3/uL Normal 3.70-11.00 [facility] Comment on above: Order Comment: Speci men Type: BLOOD SPECIMENOrdering Facility: [facility] Address: [address] [place] [address] Performed By: #### 5 7021-8 ####[facility] LABIA [id number] [place] [address] [place] CNOVon 10-17-2023 CNOV Office Visit (FAMPWS ) QUE ESCOBAR ([id number]) 1990 F [address] Date Time Provider Department 10/17/23 11:40 AM RAYO NIELSON During your visit today, we recorded the [...] pulses bilaterally. (more content not included)... Normal [facility] HbA1c (Bld)on 10-17-2023 Average glucose Estimated from glycated hemoglobin (Bld) [Mass/Vol] 105 mg/dL [facility] Comment on above: eAG: (Estimated aver age glucose) is a calculated value from HgbA1c and is product sales representative of the average blood glucose level in the last 2-3 month period. HbA1c (Bld) [Mass fraction] 5.3 % 4.3 - 5.6 % [facility] Comment on above: [place] Diabetes As sociation guidelines indicate that patients with HgbA1c in the range 5.7-6.4% are at increased risk for development of diabetes, and intervention by lifestyle modification may be beneficial. HgbA1c greater or equal to 6.5% is considered diagnostic of diabetes. [facility] Average glucose Estimated from glycated hemoglobin (Bld) [Mass/Vol] 105 mg/dL Normal [facility] Comment on above: Order Comment: Speci men Type: BLOOD SPECIMENOrdering Facility: [facility] Address: [address] [place] [address] Result Comment: eAG: (Estimated average glucose) is a calculated value from HgbA1c and is product sales representative of the average blood glucose level in the last 2-3 month period. Performed By: #### 5 5454-3 ####[facility] LABCLIA [id number] [place] [address] [place] HbA1c (Bld) [Mass fraction] 5.3 % Normal 4.3-5.6 [facility] Comment on above: Order Comment: Casandra moran Type: BLOOD SPECIMENOrdering Facility: [facility] Address: [address] [place] [address] Result Comment: Amer [place] Diabetes Association guidelines indicate that patients with HgbA1c in the range 5.7-6.4% are at increased risk for development of diabetes, and intervention by lifestyle modification may be beneficial. HgbA1c greater or equal to 6.5% is considered diagnostic of diabetes. Performed By: #### 5 5454-3 ####[facility] LABCLIA [id number] [address] [place] TSH SerPl-aCncon 10-17-2023 TSH Qn 0.885 m[IU]/L Normal 0.270-4.200 [facility] Comment on above: Order Comment: Casandra moran Type: BLOOD SPECIMENOrdering Facility: [facility] Address: [address] [place] [address] Result Comment: If t he patient is , TSH reference range varies by gestational period: First Trimester (weeks 9-12): 0.180-2.990 mIU/L Second Trimester: 0.110-3.980 mIU/L Third Trimester: 0.480-4.710 mIU/L Howard Jacobo et al. A Practical Approach for the Verifications and Determination of Site- and Trimester-Specific Reference Intervals for Thyroid Function tests in . Thyroid, 2019:29:3:412-420. John Siddiqi, et al. 2017 Guidelines of the [place] Thyroid Association for the Diagnosis and Management of Thyroid Disease during and the . Thyroid, 2017:27:3:315-389. Performed By: #### 2 4321-2, 3016-3 ####[facility] LABCLIA [id number] [address] [place] Basophil percentageOrdered B y: Melissa Saxena on 10-03-2023 Hemoglobin (Bld) [Mass/Vol] 11.9 g/dL 12.0-15.0 [facility] WBC (Bld) [#/Vol] 5.7 10*3/uL 4.4-11.0 [facility] Determination of erythrocyte mean corpuscular volume (MCV)Ordered By: Melissa Saxena on 10-03-2023 MCV (RBC) [Entitic vol] 85.5 fL 81-99 [facility] Erythrocyte distribution wid th ratioOrdered By: Melissa Saxena on 10-03-2023 Erythrocyte distribution width (RBC) [Ratio] 14.6 % 11.6-14.6 [facility] Erythrocyte distribution wid th standard deviationOrdered By: Melissa Saxena on 10-03-2023 Erythrocyte distribution width (RBC) [Entitic vol] 45.8 fL 35.1-43.9 [facility] Hematocrit Auto (Bld) [Volum e fraction]Ordered By: Melissa Saxena on 10-03-2023 Hematocrit (Bld) [Volume fraction] 36.6 % 37-47 [facility] Laboratory - Hematology and Cell countsOrdered By: Melissa Saxena on 10-03-2023 MCH (RBC) [Entitic mass] 27.8 pg 27.0-32.0 [facility] MCHC (RBC) [Mass/Vol] 32.5 g/dL 32-36 [facility] Platelet mean volume (Bld) [Entitic vol] 9.9 fL 6.2-12.0 [facility] Platelets (Bld) [#/Vol] 282 10*3/uL 150-450 [facility] RBC Auto (Bld) [#/Vol]Ordere d By: Melissa Saxena on 10-03-2023 RBC (Bld) [#/Vol] 4.28 10*6/uL 4.2-5.4 [facility] INFLUENZA A&B MOLECULAR (POC )on 08-10-2023 Flu A (POCT) Negative Negative [facility] Flu B (POCT) Negative Negative [facility] Procedural Control Valid [facility] UA DIP, URINE (POC)on 2023 BILIRUBIN UA (POCT) Negative Negative [facility] CLARITY UA (POCT) Clear [facility] COLOR UA (POCT) Yellow [facility] GLUCOSE UA (POCT) Negative Negative mg/dL [facility] Hemoglobin Ql (U) Small Abnormal Negative [facility] KETONE UA (POCT) Negative Negative mg/dL [facility] LEUKOCYTES UA (POCT) Negative Negative [facility] NITRITE UA (POCT) Negative Negative [facility] PH UA (POCT) 6.0 4.5 - 8.0 [facility] Protein Ql (U) Negative Negative mg/dL [facility] SPECIFIC GRAVITY UA (POCT) 1.015 1.005 - 1.030 [facility] UROBILINOGEN UA (POCT) 0.2 E.U./dL Kelly l E.U./dL [facility] Serum or plasma choriogonado tropin detectionOrdered By: Love Castillo on 07-13-2023 HCG ( test) Ql < 1 mIU/mL <4 [facility] Comment on above: hCG levels with Gest ational AgeGestational Age hCG mIU/mL (IU/L)0.2 - 1 week 5 - 501-2 weeks 50 - 5002-3 weeks 100 - 55747-8 weeks 500 - 279012-6 weeks 1000 - 875263-7 weeks 50748 - 100,0006-8 weeks 50943 - 200,0002-3 months 34967 - 100,000 Absolute lymphocyte countOrd ered By: Melissa Saxena on 06-28-2023 Lymphocytes Auto (Unsp spec) [#/Vol] 1.74 10*3/uL 0.83-4.51 [facility] Automated lymphocyte count a s percentage of total leukocytesOrdered By: Melissa Saxena on 06-28-2023 Lymphocytes/100 WBC Auto (Unsp spec) 29.0 % 19-41 [facility] Basophil percentageOrdered B y: Melissa Saxena on 06-28-2023 Basophils/100 WBC (Bld) 0.8 % 0-1 [facility] Eosinophils/100 WBC (Bld) 5.7 % 0-5 [facility] Hemoglobin (Bld) [Mass/Vol] 11.9 g/dL 12.0-15.0 [facility] Monocytes/100 WBC (Bld) 6.7 % 0-10 [facility] Neutrophils (Bld) [#/Vol] 3.5 10*3/uL 2.0-7.7 [facility] Neutrophils/100 WBC (Bld) 57.5 % 47-70 [facility] WBC (Bld) [#/Vol] 6.0 10*3/uL 4.4-11.0 [facility] Chlamydia trachomatis rRNA d etection by probe and target amplification methodOrdered By: Love Castillo on 06-28-2023 C. trachomatis rRNA MAYTE+probe Ql (Unsp spec) Negative Negative [facility] Determination of erythrocyte mean corpuscular volume (MCV)Ordered By: Melissa Saxena on 06-28-2023 MCV (RBC) [Entitic vol] 88.7 fL 81-99 [facility] Erythrocyte distribution wid th ratioOrdered By: Melissa Saxena on 06-28-2023 Erythrocyte distribution width (RBC) [Ratio] 13.7 % 11.6-14.6 [facility] Erythrocyte distribution wid th standard deviationOrdered By: Melissa Saxena on 06-28-2023 Erythrocyte distribution width (RBC) [Entitic vol] 44.3 fL 35.1-43.9 [facility] Gram stain for investigation of transfusion reactionOrdered By: Love Castillo on 06-28-2023 Microscopic observation Gram stain Nom (Unsp spec) [facility] Microscopic observation Gram stain Nom (Unsp spec) [facility] Hematocrit Auto (Bld) [Volum e fraction]Ordered By: Melissa Saxena on 06-28-2023 Hematocrit (Bld) [Volume fraction] 37.6 % 37-47 [facility] Immature granulocytes/100 WB C Auto (Bld)Ordered By: Melissa Saxena on 06-28-2023 Immature granulocytes/100 WBC (Bld) 0.300 % 0.0-0.9 [facility] Comment on above: IG% - Immature Granu locytes (promyelocytes, myelocytes and metamyelocytes) > 1% indicates that a LEFT SHIFT is Present. Laboratory - Hematology and Cell countsOrdered By: Melissa Saxena on 06-28-2023 MCH (RBC) [Entitic mass] 28.1 pg 27.0-32.0 [facility] MCHC (RBC) [Mass/Vol] 31.6 g/dL 32-36 [facility] Nucleated RBC/100 WBC (Bld) [Ratio] 0 % 0-5 [facility] Platelets (Bld) [#/Vol] 388 10*3/uL 150-450 [facility] Laboratory - Microbiology an d Antimicrobial susceptibilityOrdered By: Love Castillo on 06-28-2023 N. gonorrhoeae DNA MAYTE+probe Ql (Unsp spec) Negative Negative [facility] Comment on above: Performed at: =[address] [id number] Director: Rita Vallecillo MD, Phone: [phone] No Panel InformationOrdered By: Love Castillo on 06-28-2023 Genital Culture Neisseria or beta-hemolytic Streptococcus isolated. [facility] Genital Culture Neisseria or beta-hemolytic Streptococcus isolated. [facility] No Panel Informationon 06-28 POC Bacterial Vaginitis (Rapid) Negative [facility] POC Trichomonas (Rapid) Negative [facility] Platelet mean volume Bulmaro-Ec ker (Bld) [Entitic vol]Ordered By: Melissa Saxena on 06-28-2023 Platelet mean volume (Bld) [Entitic vol] 9.7 fL 6.2-12.0 [facility] RBC Auto (Bld) [#/Vol]Ordere d By: Melissa Saxena on 06-28-2023 RBC (Bld) [#/Vol] 4.24 10*6/uL 4.2-5.4 [facility] Serum or plasma thyroid stim ulating hormone (TSH) measurement (units/volume)Ordered By: Melissa Saxena on 06-28-2023 TSH Qn 1.21 uIU/mL 0.358-3.74 [facility] Urinalysis complete W Reflex Culture panel (U)on 06-07-2023 Appearance (U) Hazy Abnormal Clear [facility] Bilirubin (U) [Mass/Vol] Negative NEGATIVE [facility] Color (U) Yellow Straw, Yellow [facility] Crystals.amorphous Computer assisted (U) [#/Area] 1+ NONE, 1+, 2+ /HPF [facility] Glucose Auto test strip (U) [Mass/Vol] Negative NEGATIVE mg/dL [facility] Interpretation and review of laboratory results Abnormal [facility] Ketones (U) [Mass/Vol] Negative NEGAT JESUS mg/dL [facility] Leukocyte clumps Auto (Urine sed) [#/Area] FEW Reference range not established. /HPF [facility] Leukocyte esterase Auto test strip Ql (U) Negative NEGATIVE [facility] Mucus Auto (Urine sed) [#/Area] 1+ Reference range not established. /LPF [facility] Nitrite Auto test strip Ql (U) Negative NEGATIVE [facility] pH (U) 7.0 [pH] 5.0, 5.5, 6.0, 6.5, 7.0, 7.5, 8.0 [facility] Protein (U) [Mass/Vol] 100 (2+) Abnormal NEGAT JESUS mg/dL [facility] RBC (U) [#/Vol] LARGE (3+) Abnormal NEGATIVE [facility] RBC Auto (Urine sed) [#/Area] >20 Abnormal NONE, 1-2, 3-5 /HPF [facility] Specific gravity (U) [Rel density] 1.020 1.005 - 1.035 [facility] Urobilinogen (U) [Mass/Vol] mg/dL NINF - 2.0 mg/dL [facility] WBC Auto (Urine sed) [#/Area] 21-50 Abnormal 1-5, NONE /HPF [facility] ANTIBODY IDENTIFICATIONon Blood group antibody investigation (P/RBC) [Interp] Inconclusive Normal [facility] Comment on above: Performed By: #### 5 902-2 #### RAUDEL MENJIVAR ([id number]) [facility] ([facility]) [address] [place] [address] CASE # Normal [facility] Comment on above: Performed By: #### 5 902-2 #### RAUDEL MENJIVAR ([id number]) [facility] ([facility]) [address] [place] [address] Bacteria identifiedon 2023 Bacteria identified Cx Nom (U) Test: Urine Culture Specimen Source: Clean Catch/Voided Specimen Type: Urine Specimen Date: 06/06/2023 11:41 PM Result Date: 06/08/2023 8:53 AM Result Status: Final result Abnormal: No Resulting Lab: [facility] [id number] [facility] [address] CULTURE No growth Normal [facility] Comment on above: Performed By: #### 5 902-2 #### STARKS TIARA ([id number]) [facility] ([facility]) [address] [place] [address] Basic metabolic 2000 panelon 06-06-2023 Anion gap [Moles/Vol] 11 mmol/L 10 - 2 0 mmol/L [facility] Calcium [Mass/Vol] 9.0 mg/dL 8.6 - 10. 3 mg/dL [facility] Chloride [Moles/Vol] 107 mmol/L 98 - 10 7 mmol/L [facility] CO2 [Moles/Vol] 25 mmol/L 21 - 32 mmol/L [facility] Creatinine [Mass/Vol] 0.79 mg/dL 0.50 - 1.05 mg/dL [facility] GFR/1.73 sq M.predicted MDRD (S/P/Bld) [Vol rate/Area] - PINF [facility] Comment on above: Calculations of yolanda mated GFR are performed using the 2020 CKD-EPI Study Refit equation without the race variable for the IDMS-Traceable creatinine methods. https://jasn.asnjournals.org/content//ASN.29479 03556 Glucose [Mass/Vol] 96 mg/dL 74 - 99 mg/dL [facility] Interpretation and review of laboratory results Normal [facility] Potassium [Moles/Vol] 3.9 mmol/L 3.5 - 5.3 mmol/L [facility] Sodium [Moles/Vol] 139 mmol/L 136 - 145 mmol/L [facility] Urea nitrogen [Mass/Vol] 12 mg/dL 6 - 23 mg/dL [facility] Anion gap [Moles/Vol] 11 mmol/L Normal 10-20 [facility] Comment on above: Performed By: #### 2 4321-2 ####RAUDEL MENJIVAR ([id number])[facility] ([facility])[address] [place] [address]071 Calcium [Mass/Vol] 9.0 mg/dL Normal 8.6-10.3 [facility] Comment on above: Performed By: #### 2 4321-2 ####RAUDEL MENJIVAR ([id number])[facility] ([facility])[address] [place] [address]344 Chloride [Moles/Vol] 107 mmol/L Normal 98-107 [facility] Comment on above: Performed By: #### 2 4321-2 ####RAUDEL MENJIVAR ([id number])[facility] ([facility])[address] [place] [address] 31089 CO2 [Moles/Vol] 25 mmol/L Normal 21-32 [facility] Comment on above: Performed By: #### 2 4321-2 ####RAUDEL MENJIVAR ([id number])[facility] ([facility])[address] [place] [address]238 Creatinine [Mass/Vol] 0.79 mg/dL Normal 0.50-1.05 [facility] Comment on above: Performed By: #### 2 4321-2 ####RAUDEL MENJIVAR ([id number])[facility] ([facility])[address] [place] [address]602 GFR/1.73 sq M.predicted MDRD (S/P/Bld) [Vol rate/Area] mL/min/{1.73_m2} Normal >60 [facility] Comment on above: Result Comment: Calc ulations of estimated GFR are performed using the 2020 CKD-EPI Study Refit equation without the race variable for the IDMS-Traceable creatinine methods. https://jasn.asnjournals.org/content/early//ASN.21591 88646 Performed By: #### 2 4321-2 ####RAUDEL MENJIVAR ([id number])[facility] ([facility])[address] [place] [address] 32673 Glucose [Mass/Vol] 96 mg/dL Normal 74-99 [facility] Comment on above: Performed By: #### 2 4321-2 ####RAUDEL MENJIVAR ([id number])[facility] ([facility])[address] [place] [address] Potassium [Moles/Vol] 3.9 mmol/L Normal 3.5-5.3 [facility] Comment on above: Performed By: #### 2 4321-2 ####RAUDEL MENJIVAR ([id number])[facility] ([facility])[address] [place] [address]808 Sodium [Moles/Vol] 139 mmol/L Normal 136-145 [facility] Comment on above: Performed By: #### 2 4321-2 ####RAUDEL MENJIVAR ([id number])[facility] ([facility])[address] [place] [address]10 Urea nitrogen [Mass/Vol] 12 mg/dL Normal 6-23 [facility] Comment on above: Performed By: #### 2 4321-2 ####RAUDEL MENJIVAR ([id number])[facility] ([facility])[address] [place], [place] [address] Blood type and Indirect anti body screen panel (Bld)on 06-06-2023 ABO group Nom (Bld) A Normal [facility] Comment on above: Order Comment: Revie w your Rh Negative female patient's potential need for Rh Immune Globulin (RhIg)administration. Performed By: #### 3 4532-2 ####RAUDEL MENJIVAR ([id number])[facility] ([facility])[address] [place] [address] [place] Blood group antibody screen Ql Positive [facility] Comment on above: Order Comment: Revie w your Rh Negative female patient's potential need for Rh Immune Globulin (RhIg)administration. Performed By: #### 3 4532-2 ####RAUDEL MENJIVAR ([id number])[facility])[address] [place], [place] [address] [place] D Ag Ql (Bld) Negative Normal [facility] Comment on above: Order Comment: Tish w your Rh Negative female patient's potential need for Rh Immune Globulin (RhIg)administration. Performed By: #### 3 4532-2 ####STARKS TIARA ([id number])[facility] ([facility])[address] [place] [address] CBC W Auto Differential pane l (Bld)on 06-06-2023 Basophils (Bld) [#/Vol] 0.03 10*3/uL [facility] Basophils/100 WBC (Bld) 0.4 % 0.0 - 2.0 % [facility] Eosinophils (Bld) [#/Vol] 0.39 10*3/uL [facility] Eosinophils/100 WBC (Bld) 4.8 % 0.0 - 6.0 % [facility] Erythrocyte distribution width (RBC) [Ratio] 14.9 % High 11.5 - 14.5 % [facility] Hematocrit (Bld) [Volume fraction] 37.0 % 36.0 - 46.0 % [facility] Hemoglobin (Bld) [Mass/Vol] 11.8 g/dL Low 12.0 - 16.0 g/dL [facility] Immature granulocytes (Bld) [#/Vol] 0.02 10*3/uL [facility] Immature granulocytes/100 WBC (Bld) 0.2 % 0.0 - 0.9 % [facility] Comment on above: Immature Granulocyte Count (IG) includes promyelocytes, myelocytes and metamyelocytes but does not include bands. Percent differential counts (%) should be interpreted in the context of the absolute cell counts (cells/UL). Interpretation and review of laboratory results Abnormal [facility] Lymphocytes (Bld) [#/Vol] 2.86 10*3/uL [facility] Lymphocytes/100 WBC (Bld) 35.0 % 13.0 - 44.0 % [facility] MCH (RBC) [Entitic mass] 28.6 pg 26.0 - 34.0 pg [facility] MCHC (RBC) [Mass/Vol] 31.9 g/dL Low 32.0 - 36.0 g/dL [facility] MCV (RBC) [Entitic vol] 90 fL 80 - 100 fL [facility] Monocytes (Bld) [#/Vol] 0.61 10*3/uL [facility] Monocytes/100 WBC (Bld) 7.5 % 2.0 - 10.0 % [facility] Neutrophils (Bld) [#/Vol] 4.26 10*3/uL [facility] Comment on above: Percent differential counts (%) should be interpreted in the context of the absolute cell counts (cells/uL). Neutrophils/100 WBC (Bld) 52.1 % 40.0 - 80.0 % [facility] Nucleated RBC/100 WBC (Bld) [Ratio] 0.0 % [facility] Platelets (Bld) [#/Vol] 363 10*3/uL [facility] RBC (Bld) [#/Vol] 4.12 10*6/uL [facility] WBC (Bld) [#/Vol] 8.2 10*3/uL [facility] Basophils (Bld) [#/Vol] 0.03 x10*3/uL Normal 0.00-0.10 [facility] Comment on above: Performed By: #### 5 7021-8 ####RAUDEL MENJIVAR ([id number])[facility] ([facility])[address] [place] [address]01 Basophils/100 WBC (Bld) 0.4 % Normal 0.0-2.0 [facility] Comment on above: Performed By: #### 5 7021-8 ####RAUDEL MENJIVAR ([id number])[facility] ([facility] [place] [address] Eosinophils (Bld) [#/Vol] 0.39 x10*3/uL Normal 0.00-0.70 [facility] Comment on above: Performed By: #### 5 7021-8 ####RAUDEL MENJIVAR ([id number])[facility] ([facility] [place] [address] Eosinophils/100 WBC (Bld) 4.8 % Normal 0.0-6.0 [facility] Comment on above: Performed By: #### 5 7021-8 ####RAUDEL MENJIVAR ([id number])[facility] ([facility])[address] [place], [place] [address] Erythrocyte distribution width (RBC) [Ratio] 14.9 % High 11.5-14.5 [facility] Comment on above: Performed By: #### 5 7021-8 ####RAUDEL MENJIVAR ([id number])[facility] ([facility])[address] [place], [place] [address] Hematocrit (Bld) [Volume fraction] 37.0 % Normal 36.0-46.0 [facility] Comment on above: Performed By: #### 5 7021-8 ####RAUDEL MENJIVAR ([id number])[facility] ([facility])[address] [place] [address] 48003 Hemoglobin (Bld) [Mass/Vol] 11.8 g/dL Low 12.0-16.0 [facility] Comment on above: Performed By: #### 5 7021-8 ####RAUDEL MENJIVAR ([id number])[facility] ([facility])[address] [place] [address]122 Immature granulocytes (Bld) [#/Vol] 0.02 x10*3/uL Normal 0.00-0.70 [facility] Comment on above: Performed By: #### 5 7021-8 ####RAUDEL MENJIVAR ([id number])[facility] ([facility])[address] [place], [place] [address] Immature granulocytes/100 WBC (Bld) 0.2 % Normal 0.0-0.9 [facility] Comment on above: Result Comment: Yuliya ture Granulocyte Count (IG) includes promyelocytes, myelocytes and metamyelocytes but does not include bands. Percent differential counts (%) should be interpreted in the context of the absolute cell counts (cells/UL). Performed By: #### 5 7021-8 ####RAUDEL MENJIVAR ([id number])[facility] ([facility])[address] [place] [address] Lymphocytes (Bld) [#/Vol] 2.86 x10*3/uL Normal 1.20-4.80 [facility] Comment on above: Performed By: #### 5 7021-8 ####RAUDEL MENJIVAR ([id number])[facility] ([facility])[address] [place] [address] 18518 Lymphocytes/100 WBC (Bld) 35.0 % Normal 13.0-44.0 [facility] Comment on above: Performed By: #### 5 7021-8 ####RAUDEL MENJIVAR ([id number])[facility] ([facility])[address] [place] [address]2315 MCH (RBC) [Entitic mass] 28.6 pg Normal 26.0-34.0 [facility] Comment on above: Performed By: #### 5 7021-8 ####RAUDEL MENJIVAR ([id number])[facility] ([facility])[address] [place] [address] 59061 MCHC (RBC) [Mass/Vol] 31.9 g/dL Low 32.0-36.0 [facility] Comment on above: Performed By: #### 5 7021-8 ####RAUDEL MENJIVAR ([id number])[facility] ([facility])[address] [place] [address] 77653 MCV (RBC) [Entitic vol] 90 fL Normal 80-100 [facility] Comment on above: Performed By: #### 5 7021-8 ####RAUDEL MENJIVAR ([id number])[facility] ([facility])[address] [place] [address] 12431 Monocytes (Bld) [#/Vol] 0.61 x10*3/uL Normal 0.10-1.00 [facility] Comment on above: Performed By: #### 5 7021-8 ####RAUDEL MENJIVAR ([id number])[facility] ([facility])[address] [place] [address] 05437 Monocytes/100 WBC (Bld) 7.5 % Normal 2.0-10.0 [facility] Comment on above: Performed By: #### 5 7021-8 ####RAUDEL MENJIVAR ([id number])[facility] ([facility])[address] [place] [address] 93145 Neutrophils (Bld) [#/Vol] 4.26 x10*3/uL Normal 1.20-7.70 [facility] Comment on above: Result Comment: Perc ent differential counts (%) should be interpreted in the context of the absolute cell counts (cells/uL). Performed By: #### 5 7021-8 ####RAUDEL MENJIVAR ([id number])[facility] ([facility])[address] [place] [address] 67162 Neutrophils/100 WBC (Bld) 52.1 % Normal 40.0-80.0 [facility] Comment on above: Performed By: #### 5 7021-8 ####RAUDEL MENJIAVR ([id number])[facility] ([facility])[address] [place] [address] 21425 Nucleated RBC/100 WBC (Bld) [Ratio] 0.0 /100 WBCs Normal 0.0-0.0 [facility] Comment on above: Performed By: #### 5 7021-8 ####RAUDEL MENJIVAR ([id number])[facility] ([facility])[address] [place] [address] 01535 Platelets (Bld) [#/Vol] 363 x10*3/uL Normal 150-450 [facility] Comment on above: Performed By: #### 5 7021-8 ####RAUDEL MENJIVAR ([id number])[facility] ([facility])[address] [place] [address] 43470 RBC (Bld) [#/Vol] 4.12 x10*6/uL Normal 4.00-5.20 [facility] Comment on above: Performed By: #### 5 7021-8 ####RAUDEL MENJIVAR ([id number])[facility] ([facility])[address] [place] [address] 25413 WBC (Bld) [#/Vol] 8.2 x10*3/uL Normal 4.4-11.3 [facility] Comment on above: Performed By: #### 5 7021-8 ####RAUDEL MENJIVAR ([id number])[facility] ([facility])[address] [place] [address] Urinalysis complete W Reflex Culture panel (U)on 06-06-2023 Appearance (U) Hazy Normal Clear [facility] Comment on above: Performed By: #### 5 8077-9 ####RAUDEL MENJIVAR ([id number])[facility] ([facility])[address] [place] [address] Bilirubin (U) [Mass/Vol] Negative Normal NEGATIVE [facility] Comment on above: Performed By: #### 5 8077-9 ####RAUDEL MENJIVAR ([id number])[facility] ([facility])[address] [place] [address] Color (U) Yellow Normal Straw, Yellow [facility] Comment on above: Performed By: #### 5 8077-9 ####RAUDEL MENJIVAR ([id number])[facility] ([facility])[address] [place] [address] Crystals.amorphous Computer assisted (U) [#/Area] 1+ /HPF Normal NONE, 1+, 2+ [facility] Comment on above: Performed By: #### 5 8077-9 ####RAUDEL MENJIVAR ([id number])[facility] ([facility])[address] [place], [place] [phone] Glucose Auto test strip (U) [Mass/Vol] Negative Normal NEGATIVE [facility] Comment on above: Performed By: #### 5 8077-9 ####RAUDEL MENJIVAR ([id number])[facility] ([facility])[address] [place], [place] [address] Ketones (U) [Mass/Vol] Negative Normal NEGATIVE Un [facility] Comment on above: Performed By: #### 5 8077-9 ####RAUDEL MENJIVAR ([id number])[facility] ([facility])[address] [place] [address] Leukocyte clumps Auto (Urine sed) [#/Area] FEW Normal Reference range not established. [facility] Comment on above: Performed By: #### 5 8077-9 ####RAUDEL MENJIVAR ([id number])[facility] ([facility])[address] [place] [address] 28777 Leukocyte esterase Auto test strip Ql (U) Negative Normal NEGATIVE [facility] Comment on above: Performed By: #### 5 8077-9 ####RAUDEL MENJIVAR ([id number])[facility] ([facility])[address] [place] [address] 13657 Mucus Auto (Urine sed) [#/Area] 1+ /LPF Normal Reference range not established. [facility] Comment on above: Performed By: #### 5 8077-9 ####RAUDEL MENJIVAR ([id number])[facility] ([facility])[address] [place] [address] 95042 Nitrite Auto test strip Ql (U) Negative Normal NEGATIVE [facility] Comment on above: Performed By: #### 5 8077-9 ####RAUDEL MENJIVAR ([id number])[facility] ([facility])[address] [place] [address] 19674 pH (U) 7.0 [pH] Normal 5.0, 5.5, 6.0, 6.5, 7.0, 7.5, 8.0 [facility] Comment on above: Performed By: #### 5 8077-9 ####RAUDEL MENJIVAR ([id number])[facility] ([facility])[address] [place] [address] 04209 Protein (U) [Mass/Vol] 100 (2+) Normal NEGATIVE [facility] Comment on above: Performed By: #### 5 8077-9 ####RAUDEL MENJIVAR ([id number])[facility] ([facility])[address] [place] [address] 95699 RBC (U) [#/Vol] LARGE (3+) Abnormal NEGATIVE [facility] Comment on above: Performed By: #### 5 8077-9 ####RAUDEL MENJIVAR ([id number])[facility] ([facility])[address] [place] [address] RBC Auto (Urine sed) [#/Area] >20 Abnormal NONE, 1-2, 3-5 [facility] Comment on above: Performed By: #### 5 8077-9 ####RAUDEL MENJIVAR ([id number])[facility] ([facility])[address] [place] [address] 18079 Specific gravity (U) [Rel density] 1.020 Normal 1.005-1.035 [facility] Comment on above: Performed By: #### 5 8077-9 ####RAUDEL MENJIVAR ([id number])[facility] ([facility])[address] [place] [address] 49641 Urobilinogen (U) [Mass/Vol] mg/dL Normal <2.0 [facility] Comment on above: Performed By: #### 5 8077-9 ####RAUDEL MENJIVAR ([id number])[facility] ([facility])[address] [place], [place] [address] WBC Auto (Urine sed) [#/Area] 21-50 Abnormal 1-5, NONE [facility] Comment on above: Performed By: #### 5 8077-9 ####RAUDEL MENJIVAR ([id number])[facility] ([facility])[address] [place] [address] 42104 Basophil percentageOrdered B y: Jeanette Roach on 03-18-2023 WBC (Bld) [#/Vol] 9.4 10*3/uL 4.4-11.0 [facility] Blood erythrocytes count (nu mber/volume)Ordered By: Jeanette Roach on 03-18-2023 RBC (Bld) [#/Vol] 3.98 10*6/uL 4.2-5.4 [facility] Blood hemoglobin measurement (mass/volume)Ordered By: Jeanette Roach on 03-18-2023 Hemoglobin (Bld) [Mass/Vol] 10.4 g/dL 12.0-15.0 [facility] Blood platelet mean volumeOr dered By: Jeanette Roach on 03-18-2023 Platelet mean volume (Bld) [Entitic vol] 9.1 fL 6.2-12.0 [facility] Determination of erythrocyte mean corpuscular volume (MCV)Ordered By: Jeanette Roach on 03-18-2023 MCV (RBC) [Entitic vol] 87.7 fL 81-99 [facility] Hematocrit Auto (Bld) [Volum e fraction]Ordered By: Jeanette Roach on 03-18-2023 Hematocrit (Bld) [Volume fraction] 34.9 % 37-47 [facility] Laboratory - Chemistry and C hemistry - challengeOrdered By: Jeanette Roach on 03-18-2023 ALT [Catalytic activity/Vol] 17 U/L 13-56 [facility] Laboratory - Hematology and Cell countsOrdered By: Jeanette Roach on 03-18-2023 Erythrocyte distribution width (RBC) [Entitic vol] 49.8 fL 35.1-43.9 [facility] Erythrocyte distribution width (RBC) [Ratio] 15.8 % 11.6-14.6 [facility] MCH (RBC) [Entitic mass] 26.1 pg 27.0-32.0 [facility] MCHC Auto (RBC) [Mass/Vol]Or dered By: Jeanette Roach on 03-18-2023 MCHC (RBC) [Mass/Vol] 29.8 g/dL 32-36 [facility] No Panel InformationOrdered By: Jeanette Roach on 03-18-2023 Estimated Creatinine Clearance Calc 116.32 ml/min [facility] Estimated GFR (MDRD) Amer 136 mL/min >60 [facility] Comment on above: GFR Calc Estimated GFR (MDRD) Non-Af Amer 112 mL/min >60 [facility] Comment on above: Non- GFR Calc Platelets bldOrdered By: Marc Roach on 03-18-2023 Platelets (Bld) [#/Vol] 400 10*3/uL 150-450 [facility] Serum or plasma creatinine m easurement (mass/volume)Ordered By: Jeanette Roach on 03-18-2023 Creatinine [Mass/Vol] 0.65 mg/dL 0.55-1.02 [facility] Comment on above: The validity of the calculated GFR & GFRAA in patients over 70 years has not been determined. Clinical correlation is essential. Serum or plasma uric acid me asurement (mass/volume)Ordered By: Jeanette Roach on 03-18-2023 Urate [Mass/Vol] 5.1 mg/dL 2.6-6.0 [facility] Comment on above: The drugs N-Acetylcy steine and Metamizole may falsely depress this assay. Thin prep Papanicolaou smear with manual screeningOrdered By: Jeanette Roach on 03-18-2023 Thin prep Papanicolaou smear with manual screening 12 U/L 15-37 [facility] APTTon 03-13-2023 aPTT Coag (PPP) [Time] 27 s [facility] Work Phone: Bacteria identifiedon 2022 Bacteria identified Cx Nom (U) Test: Urine Culture Specimen Source: Clean Catch/Voided Specimen Type: Urine Specimen Date: 03/13/2023 6:19 PM Result Date: 03/14/2023 7:22 PM Result Status: Final result Abnormal: No Resulting Lab: [facility] [address] [place] [address] CULTURE No significant growth Normal [facility] Comment on above: Performed By: #### 6 30-4 ####LEA Jacobo ([id number])[facility] ([facility])[address] [place] [address] Basic metabolic 2000 panelon 03-13-2023 Anion gap [Moles/Vol] 15 mmol/L 10 - 2 0 mmol/L [facility] Calcium [Mass/Vol] 8.8 mg/dL 8.6 - 10. 3 mg/dL [facility] Chloride [Moles/Vol] 103 mmol/L 98 - 10 7 mmol/L [facility] CO2 [Moles/Vol] 25 mmol/L 21 - 32 mmol/L [facility] Creatinine [Mass/Vol] 0.51 mg/dL 0.50 - 1.05 mg/dL [facility] GFR/1.73 sq M.predicted MDRD (S/P/Bld) [Vol rate/Area] - PINF [facility] Comment on above: Calculations of yolanda mated GFR are performed using the 2020 CKD-EPI Study Refit equation without the race variable for the IDMS-Traceable creatinine methods. https://jasn.asnjournals.org/content//ASN.57578 55056 Glucose [Mass/Vol] 89 mg/dL 74 - 99 mg/dL [facility] Potassium [Moles/Vol] 3.8 mmol/L 3.5 - 5.3 mmol/L [facility] Sodium [Moles/Vol] 139 mmol/L 136 - 145 mmol/L [facility] Urea nitrogen [Mass/Vol] 10 mg/dL 6 - 23 mg/dL [facility] Anion gap [Moles/Vol] 15 mmol/L Normal 10-20 [facility] Comment on above: Performed By: #### 2 4321-2 ####RAUDEL MENJIVAR ([id number])[facility] ([facility])[address] [place] [address] 74023 Calcium [Mass/Vol] 8.8 mg/dL Normal 8.6-10.3 [facility] Comment on above: Performed By: #### 2 4321-2 ####RAUDEL MENJIVAR ([id number])[facility] ([facility])[address] [place] [address] 35171 Chloride [Moles/Vol] 103 mmol/L Normal 98-107 [facility] Comment on above: Performed By: #### 2 4321-2 ####RAUDEL MENJIVAR ([id number])[facility] ([facility])[address] [place] [address] 76433 CO2 [Moles/Vol] 25 mmol/L Normal 21-32 [facility] Comment on above: Performed By: #### 2 4321-2 ####RAUDEL MENJIVAR ([id number])[facility] ([facility])[address] [place] [address] 90951 Creatinine [Mass/Vol] 0.51 mg/dL Normal 0.50-1.05 [facility] Comment on above: Performed By: #### 2 4321-2 ####RAUDEL MENJIVAR ([id number])[facility] ([facility])[address] [place] [address] 28846 GFR/1.73 sq M.predicted MDRD (S/P/Bld) [Vol rate/Area] mL/min/{1.73_m2} Normal >60 [facility] Comment on above: Result Comment: Calc ulations of estimated GFR are performed using the 2020 CKD-EPI Study Refit equation without the race variable for the IDMS-Traceable creatinine methods. https://jasn.asnjournals.org/content/early//ASN.48524 95543 Performed By: #### 2 4321-2 ####RAUDEL MENJIVAR ([id number])[facility] ([facility])[address] [place] [address] 46682 Glucose [Mass/Vol] 89 mg/dL Normal 74-99 [facility] Comment on above: Performed By: #### 2 4321-2 ####RAUDEL MENJIVAR ([id number])[facility] ([facility])[address] [place] [address] 04232 Potassium [Moles/Vol] 3.8 mmol/L Normal 3.5-5.3 [facility] Comment on above: Performed By: #### 2 4321-2 ####RAUDEL MENJIVAR ([id number])[facility] ([facility])[address] [place] [address] 63350 Sodium [Moles/Vol] 139 mmol/L Normal 136-145 [facility] Comment on above: Performed By: #### 2 4321-2 ####RAUDEL MENJIVAR ([id number])[facility] ([facility])[address] [place] [address] 29203 Urea nitrogen [Mass/Vol] 10 mg/dL Normal 6-23 [facility] Comment on above: Performed By: #### 2 4321-2 ####RAUDEL MENJIVAR ([id number])[facility] ([facility])[address] [place] [address] 83439 C reactive proteinon 023 CRP [Mass/Vol] 6.62 mg/dL High <1.00 [facility] Comment on above: Performed By: #### 1 988-5 #### STARKS TIARA ([id number]) [facility] ([facility]) [address] [place] [address] C-Reactive Proteinon 023 CRP [Mass/Vol] 6.62 mg/dL High NINF - 1.00 mg/dL [facility] CBC W Auto Differential pane l (Bld)on 03-13-2023 Basophils (Bld) [#/Vol] 0.04 10*3/uL [facility] Basophils/100 WBC (Bld) 0.3 % 0.0 - 2.0 % [facility] Eosinophils (Bld) [#/Vol] 0.33 10*3/uL [facility] Eosinophils/100 WBC (Bld) 2.8 % 0.0 - 6.0 % [facility] Erythrocyte distribution width (RBC) [Ratio] 15.5 % High 11.5 - 14.5 % [facility] Hematocrit (Bld) [Volume fraction] 32.1 % Low 36.0 - 46.0 % [facility] Hemoglobin (Bld) [Mass/Vol] 9.7 g/dL Low 12.0 - 16.0 g/dL [facility] Immature granulocytes (Bld) [#/Vol] 0.12 10*3/uL [facility] Immature granulocytes/100 WBC (Bld) 1.0 % High 0.0 - 0.9 % [facility] Comment on above: Immature Granulocyte Count (IG) includes promyelocytes, myelocytes and metamyelocytes but does not include bands. Percent differential counts (%) should be interpreted in the context of the absolute cell counts (cells/UL). Interpretation and review of laboratory results Abnormal [facility] Lymphocytes (Bld) [#/Vol] 1.38 10*3/uL [facility] Lymphocytes/100 WBC (Bld) 11.8 % 13.0 - 44.0 % [facility] MCH (RBC) [Entitic mass] 26.5 pg 26.0 - 34.0 pg [facility] MCHC (RBC) [Mass/Vol] 30.2 g/dL Low 32.0 - 36.0 g/dL [facility] MCV (RBC) [Entitic vol] 88 fL 80 - 100 fL [facility] Monocytes (Bld) [#/Vol] 0.80 10*3/uL [facility] Monocytes/100 WBC (Bld) 6.9 % 2.0 - 10.0 % [facility] Neutrophils (Bld) [#/Vol] 8.99 10*3/uL High [facility] Comment on above: Percent differential counts (%) should be interpreted in the context of the absolute cell counts (cells/uL). Neutrophils/100 WBC (Bld) 77.2 % 40.0 - 80.0 % [facility] Nucleated RBC/100 WBC (Bld) [Ratio] 0.0 % [facility] Platelet mean volume (Bld) [Entitic vol] 9.6 fL 7.5 - 11.5 fL [facility] Platelets (Bld) [#/Vol] 287 10*3/uL [facility] RBC (Bld) [#/Vol] 3.66 10*6/uL Low [facility] WBC (Bld) [#/Vol] 11.7 10*3/uL High [facility] Basophils (Bld) [#/Vol] 0.04 x10*3/uL Normal 0.00-0.10 [facility] Comment on above: Performed By: #### 5 7021-8 #### RAUDEL MENJIVAR ([id number]) [facility] ([facility]) [address] [place] [address] 39836 Basophils/100 WBC (Bld) 0.3 % Normal 0.0-2.0 [facility] Comment on above: Performed By: #### 5 7021-8 #### RAUDEL MENJIVAR ([id number]) [facility] ([facility]) [address] [place] [address] 12824 Eosinophils (Bld) [#/Vol] 0.33 x10*3/uL Normal 0.00-0.70 [facility] Comment on above: Performed By: #### 5 7021-8 #### RAUDEL MENJIVAR ([id number]) [facility] ([facility]) [address] [place] [address] 20960 Eosinophils/100 WBC (Bld) 2.8 % Normal 0.0-6.0 [facility] Comment on above: Performed By: #### 5 7021-8 #### RAUDEL MENJIVAR ([id number]) [facility] ([facility]) [address] [place] [address] 04572 Erythrocyte distribution width (RBC) [Ratio] 15.5 % High 11.5-14.5 [facility] Comment on above: Performed By: #### 5 7021-8 #### RAUDEL MENJIVAR ([id number]) [facility] ([facility]) [address] [place] [address] Hematocrit (Bld) [Volume fraction] 32.1 % Low 36.0-46.0 [facility] Comment on above: Performed By: #### 5 7021-8 #### RAUDEL MENJIVAR ([id number]) [facility] ([facility]) [address] [place] [address] 13802 Hemoglobin (Bld) [Mass/Vol] 9.7 g/dL Low 12.0-16.0 [facility] Comment on above: Performed By: #### 5 7021-8 #### RAUDEL MENJIVAR ([id number]) [facility] ([facility]) [address] [place] [address] 98476 Immature granulocytes (Bld) [#/Vol] 0.12 x10*3/uL Normal 0.00-0.70 [facility] Comment on above: Performed By: #### 5 7021-8 #### RAUDEL MENJIVAR ([id number]) [facility] ([facility]) [address] [place] [address] [id number] Immature granulocytes/100 WBC (Bld) 1.0 % High 0.0-0.9 [facility] Comment on above: Result Comment: Yuliya ture Granulocyte Count (IG) includes promyelocytes, myelocytes and metamyelocytes but does not include bands. Percent differential counts (%) should be interpreted in the context of the absolute cell counts (cells/UL). Performed By: #### 5 7021-8 #### RAUDEL MENJIVAR ([id number]) [facility] ([facility]) [address] [place] [address] [id number] Lymphocytes (Bld) [#/Vol] 1.38 x10*3/uL Normal 1.20-4.80 [facility] Comment on above: Performed By: #### 5 7021-8 #### RAUDEL MENJIVAR ([id number]) [facility] ([facility]) [address] [place] [address] 35976 Lymphocytes/100 WBC (Bld) 11.8 % Normal 13.0-44.0 [facility] Comment on above: Performed By: #### 5 7021-8 #### RAUDEL MENJIVAR ([id number]) [facility] ([facility]) [address] [place] [address] [id number] MCH (RBC) [Entitic mass] 26.5 pg Normal 26.0-34.0 [facility] Comment on above: Performed By: #### 5 7021-8 #### RAUDEL MENJIVAR ([id number]) [facility] ([facility]) [address] [place] [address] 41787 MCHC (RBC) [Mass/Vol] 30.2 g/dL Low 32.0-36.0 [facility] Comment on above: Performed By: #### 5 7021-8 #### RAUDEL MENJIVAR ([id number]) [facility] ([facility]) [address] [place] [address] [id number] MCV (RBC) [Entitic vol] 88 fL Normal 80-100 [facility] Comment on above: Performed By: #### 5 7021-8 #### RAUDEL MENJIVAR ([id number]) [facility] ([facility]) [address] [place] [address] 86034 Monocytes (Bld) [#/Vol] 0.80 x10*3/uL Normal 0.10-1.00 [facility] Comment on above: Performed By: #### 5 7021-8 #### RAUDEL MENJIVAR ([id number]) [facility] ([facility]) [address] [place] [address] 60016 Monocytes/100 WBC (Bld) 6.9 % Normal 2.0-10.0 [facility] Comment on above: Performed By: #### 5 7021-8 #### RAUDEL MENJIVAR ([id number]) [facility] ([facility]) [address] [place] [address] 46041 Neutrophils (Bld) [#/Vol] 8.99 x10*3/uL High 1.20-7.70 [facility] Comment on above: Result Comment: Perc ent differential counts (%) should be interpreted in the context of the absolute cell counts (cells/uL). Performed By: #### 5 7021-8 #### RAUDEL MENJIVAR ([id number]) [facility] ([facility]) [address] [place] [address] 84702 Neutrophils/100 WBC (Bld) 77.2 % Normal 40.0-80.0 [facility] Comment on above: Performed By: #### 5 7021-8 #### RAUDEL MENJIVAR ([id number]) [facility] ([facility]) [address] [place] [address] 81678 Nucleated RBC/100 WBC (Bld) [Ratio] 0.0 /100 WBCs Normal 0.0-0.0 [facility] Comment on above: Performed By: #### 5 7021-8 #### RAUDEL MENJIVAR ([id number]) [facility] ([facility]) [address] [place] [address] 42895 Platelet mean volume (Bld) [Entitic vol] 9.6 fL Normal 7.5-11.5 [facility] Comment on above: Performed By: #### 5 7021-8 #### RAUDEL MENJIVAR ([id number]) [facility] ([facility]) [address] [place] [address] 87068 Platelets (Bld) [#/Vol] 287 x10*3/uL Normal 150-450 [facility] Comment on above: Performed By: #### 5 7021-8 #### RAUDEL MENJIVAR ([id number]) [facility] ([facility]) [address] [place] [address] 03779 RBC (Bld) [#/Vol] 3.66 x10*6/uL Low 4.00-5.20 [facility] Comment on above: Performed By: #### 5 7021-8 #### RAUDEL MENJIVAR ([id number]) [facility] ([facility]) [address] [place] [address] 17538 WBC (Bld) [#/Vol] 11.7 x10*3/uL High 4.4-11.3 [facility] Comment on above: Performed By: #### 5 7021-8 #### RAUDEL MENJIVAR ([id number]) [facility] ([facility]) [address] [place] [address] 34637 CRP [Mass/Vol]on 03-13-2023 Interpretation and review of laboratory results Abnormal [facility] Coagulation surface inducedo n 03-13-2023 aPTT Coag (PPP) [Time] 27 s Normal 27-38 [facility] Comment on above: Order Comment: The A PTT is no longer used for monitoring Unfractionated Heparin Therapy. For monitoring Heparin Therapy, use the Heparin Assay. Performed By: #### 1 4979-9 #### RAUDEL MENJIVAR ([id number]) [facility] ([facility]) [address] [place], [place] [id number] Coagulation tissue factor in ducedon 03-13-2023 PT Coag (PPP) [Time] 10.9 s Normal 9.8-12.8 [facility] Comment on above: Performed By: #### 5 902-2 #### RAUDEL MENJIVAR ([id number]) [facility] ([facility]) [address] [place] [address] 70244 Hepatic function 2000 panelo n 03-13-2023 Albumin BCP dye [Mass/Vol] 3.2 g/dL Low 3.4 - 5.0 g/dL [facility] ALP [Catalytic activity/Vol] 142 U/L High 33 - 110 U/L [facility] ALT With P-5'-P [Catalytic activity/Vol] 9 U/L 7 - 45 U/L [facility] Comment on above: Patients treated wit h Sulfasalazine may generate falsely decreased results for ALT. AST With P-5'-P [Catalytic activity/Vol] 14 U/L 9 - 39 U/L [facility] Bilirubin [Mass/Vol] 0.7 mg/dL 0.0 - 1 .2 mg/dL [facility] Bilirubin.direct [Mass/Vol] 0.1 mg/dL 0.0 - 0.3 mg/dL [facility] Interpretation and review of laboratory results Abnormal [facility] Protein [Mass/Vol] 6.3 g/dL Low 6.4 - 8.2 g/dL [facility] Albumin BCP dye [Mass/Vol] 3.2 g/dL Low 3.4-5.0 [facility] Comment on above: Performed By: #### 2 5-3 ####RAUDEL MENJIVAR ([id number])[facility] ([facility])[address] [place] [address] 84617 ALP [Catalytic activity/Vol] 142 U/L High 33-110 [facility] Comment on above: Performed By: #### 2 5-3 ####RAUDEL MENJIVAR ([id number])[facility] ([facility])[address] [place] [address] 11433 ALT With P-5'-P [Catalytic activity/Vol] 9 U/L Normal 7-45 [facility] Comment on above: Result Comment: Monika ents treated with Sulfasalazine may generate falsely decreased results for ALT. Performed By: #### 2 4325-3 ####RAUDEL MENJIVAR ([id number])[facility] ([facility] [place] [address] AST With P-5'-P [Catalytic activity/Vol] 14 U/L Normal 9-39 [facility] Comment on above: Performed By: #### 2 4325-3 ####RAUDEL MENJIVAR ([id number])[facility] ([facility])[address] [place] [address] 40694 Bilirubin [Mass/Vol] 0.7 mg/dL Normal 0.0-1.2 [facility] Comment on above: Performed By: #### 2 4325-3 ####RAUDEL MENJIVAR ([id number])[facility] ([facility])[address] [place] [address] 78361 Bilirubin.direct [Mass/Vol] 0.1 mg/dL Normal 0.0-0.3 [facility] Comment on above: Performed By: #### 2 4325-3 ####RAUDEL MENJIVAR ([id number])[facility] ([facility])[address] [place] [address] 54216 Protein [Mass/Vol] 6.3 g/dL Low 6.4-8.2 [facility] Comment on above: Performed By: #### 2 4325-3 ####RAUDEL MENJIVAR ([id number])[facility] ([facility])[address] [place] [address] Lactateon 03-13-2023 Lactate [Moles/Vol] 0.9 mmol/L 0.4 - 2. 0 mmol/L [facility] Lactate [Moles/Vol] 0.9 mmol/L Normal 0.4-2.0 [facility] Comment on above: Order Comment: Venip uncture immediately after or during the administration of Metamizole may lead to falsely low results. Testing should be performed immediately prior to Metamizole dosing. Performed By: #### 2 524-7 #### RAUDEL MENJIVAR ([id number]) [facility] ([facility]) [address] [place] [address] 46132 Lactate [Moles/Vol]on 2022 Interpretation and review of laboratory results Normal [facility] Venipuncture immediately after or during the administration of Metamizole may lead to falsely low results. Testing should be performed immediately prior to Metamizole dosing. [facility] Magnesiumon 03-13-2023 Magnesium [Mass/Vol] 1.91 mg/dL 1.60 - 2.40 mg/dL [facility] Magnesium [Mass/Vol] 1.91 mg/dL Normal 1.60-2.40 [facility] Comment on above: Performed By: #### 1 9123-9 ###Rozina MENJIVAR ([id number]) [facility] ([facility]) [address] [id number] Natriuretic peptide B [Mass/ Vol]on 03-13-2023 Interpretation and review of laboratory results Abnormal [facility] Natriuretic peptide B (Bld) [Mass/Vol] 285 pg/mL High 0 - 99 pg/mL [facility] <100 pg/mL - Heart failure unlikely 100-299 pg/mL - Intermediate probability of acute heart failure exacerbation. Correlate with clinical context and patient history. >=300 pg/mL - Heart Failure likely. Correlate with clinical context and patient history. BNP testing is performed using different testing methodology at [facility] than at other [facility]. Direct result comparisons should only be made within the same method. [facility] Natriuretic peptide B (Bld) [Mass/Vol] 285 pg/mL High 0-99 [facility] Comment on above: Order Comment: <100 pg/mL - Heart failure unlikely 100-299 pg/mL - Intermediate probability of acute heart failure exacerbation. Correlate with clinical context and patient history. >=300 pg/mL - Heart Failure likely. Correlate with clinical context and patient history. BNP testing is performed using different testing methodology at [facility] than at other [facility]. Direct result comparisons should only be made within the same method. Performed By: #### 3 0934-4 #### RAUDEL MENJIVAR ([id number]) [facility] ([facility]) [facility] [place] [address] No Panel Informationon 03-13 Interpretation and review of laboratory results Abnormal [facility] Interpretation and review of laboratory results Normal [facility] PT Coag (PPP) [Time]Ordered By: Carey Epstein on 03-13-2023 INR Coag (PPP) [Relative time] 1.0 {INR} 0.9 - 1.1 [facility] Interpretation and review of laboratory results Normal [facility] PT Coag (PPP) [Time]on 03-13 INR Coag (PPP) [Relative time] 1.0 Normal 0.9-1.1 [facility] Comment on above: Performed By: #### 5 902-2 #### STARKS TIARA ([id number]) [facility] ([facility]) [facility] [place] [address] Phosphateon 03-13-2023 Phosphate [Mass/Vol] 4.1 mg/dL Normal 2.5-4.9 [facility] Comment on above: Result Comment: The performance characteristics of phosphorus testing in heparinized plasma have been validated by the individual laboratory site where testing is performed. Testing on heparinized plasma is not approved by the FDA; however, such approval is not necessary. Performed By: #### 2 777-1 #### STARKS TIARA ([id number]) [facility] ([facility]) [facility] [place] [address] Phosphoruson 03-13-2023 Phosphate [Mass/Vol] 4.1 mg/dL 2.5 - 4 .9 mg/dL [facility] Comment on above: The performance miles acteristics of phosphorus testing in heparinized plasma have been validated by the individual laboratory site where testing is performed. Testing on heparinized plasma is not approved by the FDA; however, such approval is not necessary. Protime-INROrdered By: Marilynn Epstein on 03-13-2023 PT Coag (PPP) [Time] 10.9 s [facility] Tropinin I.cardiac panel Hig h sensitivity methodon 03-13-2023 Interpretation and review of laboratory results Normal [facility] Less than 99th percentile of normal range [...] performed using a different testing methodology at [facility] than at other [facility]. Direct result comparisons should only be made within the same method. [facility] Troponin I, High Sensitivity on 03-13-2023 Tropinin I.cardiac panel High sensitivity method 6 ng/L 0 - 13 ng/L [facility] Troponin I.cardiac panelon 1 Tropinin I.cardiac panel High sensitivity method 6 ng/L Normal 0-13 [facility] Comment on above: Order Comment: Less than [...] performed using a different testing methodology at [facility] than at other [facility]. Direct result comparisons should only be made within the same method. Performed By: #### 8 9577-1 #### STARKS TIARA ([id number]) [facility] ([facility]) [address] [place] [address] Urinalysis complete W Reflex Culture panel (U)on 03-13-2023 Appearance (U) Clear Clear [facility] Bilirubin (U) [Mass/Vol] Negative NEGATIVE [facility] Color (U) Straw Straw, Yellow [facility] Glucose Auto test strip (U) [Mass/Vol] Negative NEGATIVE mg/dL [facility] Ketones (U) [Mass/Vol] Negative NEGAT JESUS mg/dL [facility] Leukocyte esterase Auto test strip Ql (U) TRACE Abnormal NEGATIVE [facility] Nitrite Auto test strip Ql (U) Negative NEGATIVE [facility] pH (U) 8.0 [pH] 5.0, 5.5, 6.0, 6.5, 7.0, 7.5, 8.0 [facility] Protein (U) [Mass/Vol] Negative NEGAT JESUS mg/dL [facility] RBC (U) [#/Vol] MODERATE (2+) Abnormal NEGATIVE [facility] Specific gravity (U) [Rel density] 1.010 1.005 - 1.035 [facility] Urobilinogen (U) [Mass/Vol] mg/dL NINF - 2.0 mg/dL [facility] Appearance (U) Clear Normal Clear [facility] Comment on above: Performed By: #### 5 8077-9 ####RAUDEL MENJIVAR ([id number])[facility] ([facility])[address] [place] [address] 46226 Bilirubin (U) [Mass/Vol] Negative Normal NEGATIVE [facility] Comment on above: Performed By: #### 5 8077-9 ####RAUDEL MENJIVAR ([id number])[facility] ([facility])[address] [place] [address] Color (U) Straw Normal Straw, Yellow [facility] Comment on above: Performed By: #### 5 8077-9 ####RAUDEL MENJIVAR ([id number])[facility] ([facility])[address] [place] [address] 39303 Glucose Auto test strip (U) [Mass/Vol] Negative Normal NEGATIVE [facility] Comment on above: Performed By: #### 5 8077-9 ####RAUDEL MENJIVAR ([id number])[facility] ([facility])[address] [place] [address] 51350 Ketones (U) [Mass/Vol] Negative Normal [facility]IVE [facility] on above: Performed By: #### 5 8077-9 ####RAUDEL MENJIVAR ([id number])[facility] ([facility])[address] [place] [address] 71621 Leukocyte esterase Auto test strip Ql (U) TRACE Abnormal NEGATIVE [facility] Comment on above: Performed By: #### 5 8077-9 ####RAUDEL MENJIVAR ([id number])[facility] ([facility])[address] [place] [address] 33851 Nitrite Auto test strip Ql (U) Negative Normal NEGATIVE [facility] Comment on above: Performed By: #### 5 8077-9 ####RAUDEL MENJIVAR ([id number])[facility] ([facility])[address] [place] [address] pH (U) 8.0 [pH] Normal 5.0, 5.5, 6.0, 6.5, 7.0, 7.5, 8.0 [facility] Comment on above: Performed By: #### 5 8077-9 ####RAUDEL MENJIVAR ([id number])[facility] ([facility])[address] [place] [address] Protein (U) [Mass/Vol] Negative Normal NEGATIVE [facility] Comment on above: Performed By: #### 5 8077-9 ####RAUDEL MENJIVAR ([id number])[facility] ([facility])[address] [place] [address] RBC (U) [#/Vol] MODERATE (2+) Abnormal NEGATIVE [facility] Comment on above: Performed By: #### 5 8077-9 ####RAUDEL MENJIVAR ([id number])[facility] ([facility])[address] [place] [address] Specific gravity (U) [Rel density] 1.010 Normal 1.005-1.035 [facility] Comment on above: Performed By: #### 5 8077-9 ####RAUDEL MENJIVAR ([id number])[facility] ([facility])[address] [place], [place] [phone] Urobilinogen (U) [Mass/Vol] mg/dL Normal <2.0 [facility] Comment on above: Performed By: #### 5 8077-9 ####RAUDEL MENJIVAR ([id number])[facility] ([facility])[address] [place], [place] [address] Urinalysis microscopic panel Auto Ql (U)on 03-13-2023 RBC Auto (Urine sed) [#/Area] 11-20 Abnormal NONE, 1-2, 3-5 /HPF [facility] WBC Auto (Urine sed) [#/Area] 1-5 1-5, NONE /HPF [facility] RBC Auto (Urine sed) [#/Area] 11-20 Abnormal NONE, 1-2, 3-5 [facility] Comment on above: Performed By: #### 5 3315-8 ####STARKS TIARA ([id number])[facility] ([facility])[address] [place] [address] WBC Auto (Urine sed) [#/Area] 1-5 Normal 1-5, NONE [facility] Comment on above: Performed By: #### 5 3315-8 ####STARKS SACHINHRLI ([id number])[facility] ([facility])[address] [place] [address] 32399 XR CHEST 1 VIEWon 03-13-2023 XR CHEST 1 VIEW Interpreted By: Jasen Aguirre, STUDY: XR CHEST 1 VIEW; 03/13/2023 5:17 pm INDICATION: Signs/Symptoms:pre-ecla mpsia. COMPARISON: May 25, [address] and December 14, 2020 chest radiograph ACCESSION NUMBER(S): [id number] ORDERING CLINICIAN: EDY ORELLANA FINDINGS: AP radiograph of the chest was provided. CARDIOMEDIASTINAL SILHOUETTE: Cardiomediastinal silhouette is normal in size and configuration. LUNGS: Lungs are clear. ABDOMEN: No remarkable upper abdominal findings. BONES: No acute osseous changes. IMPRESSION: 1. No evidence of acute cardiopulmonary process. MACRO: None Signed by: Jasen Aguirre 03/13/2023 5:28 PM Dictation workstation: [id number] Normal [facility] XR Chest Single viewon 03-13 1. No evidence of ac [place] cardiopulmonary process. MACRO: None Signed by: Jasen Aguirre 03/13/2023 5:28 PM Dictation workstation: [id number] [facility] MMODAL Interpreted By: Jasen Aguirre, STUDY: XR CHEST 1 VIEW; 03/13/2023 5:17 pm INDICATION: Signs/Symptoms:pre-ecla mpsia. COMPARISON: May 25, [address] and December 14, 2020 chest radiograph ACCESSION NUMBER(S): [id number] ORDERING CLINICIAN: EDY SOMPLE FINDINGS: AP radiograph of the chest was provided. CARDIOMEDIASTINAL SILHOUETTE: Cardiomediastinal silhouette is normal in size and configuration. LUNGS: Lungs are clear. ABDOMEN: No remarkable upper abdominal findings. BONES: No acute osseous changes. MMODAL Jasen Aguirre MD - 03/13/2023 Interpreted By: Jasen Aguirre, STUDY: XR CHEST 1 VIEW; 03/13/2023 5:17 pm INDICATION: Signs/Symptoms:pre-ecla mpsia. COMPARISON: May 25, [address] and December 14, 2020 chest radiograph ACCESSION NUMBER(S): [id number] ORDERING CLINICIAN: EDY ORELLANA FINDINGS: AP radiograph of the chest was provided. CARDIOMEDIASTINAL SILHOUETTE: Cardiomediastinal silhouette is normal in size and configuration. LUNGS: Lungs are clear. ABDOMEN: No remarkable upper abdominal findings. BONES: No acute osseous changes. IMPRESSION: 1. No evidence of acute cardiopulmonary process. MACRO: None Signed by: Jasen Aguirre 03/13/2023 5:28 PM Dictation workstation: [id number] [facility] Work Phone: Radiology Study observation (narrative) [facility] Work Phone: XR Chest Single viewOrdered By: Jasen Aguirre on 03-13-2023 [facility] Work Phone: aPTT Coag (PPP) [Time]on Interpretation and review of laboratory results Normal [facility] Work Phone: The APTT is no longe r used for monitoring Unfractionated Heparin Therapy. For monitoring Heparin Therapy, use the Heparin Assay. [facility] Work Phone: [facility] Work Phone: Absolute lymphocyte countOrd ered By: Yuri Crenshaw on 03-09-2023 Lymphocytes Auto (Unsp spec) [#/Vol] 2.13 10*3/uL 0.83-4.51 [facility] Basophil percentageOrdered B y: Yuri Crenshaw on 03-09-2023 Basophils/100 WBC (Bld) 0.3 % 0-1 [facility] Eosinophils/100 WBC (Bld) 2.0 % 0-5 [facility] Neutrophils (Bld) [#/Vol] 10.3 10*3/uL 2.0-7.7 [facility] Neutrophils/100 WBC (Bld) 73.2 % 47-70 [facility] WBC (Bld) [#/Vol] 14.1 10*3/uL 4.4-11.0 [facility] Blood erythrocytes count (nu mber/volume)Ordered By: Yuri Crenshaw on 03-09-2023 RBC (Bld) [#/Vol] 3.54 10*6/uL 4.2-5.4 [facility] Blood hemoglobin measurement (mass/volume)Ordered By: Yuri Crenshaw on 03-09-2023 Hemoglobin (Bld) [Mass/Vol] 9.4 g/dL 12.0-15.0 [facility] Blood lymphocytes/100 leukoc ytesOrdered By: Yuri Crenshaw on 03-09-2023 Lymphocytes/100 WBC (Bld) 15.1 % 19-41 [facility] Blood monocytes/100 leukocyt esOrdered By: Yuri Crenshaw on 03-09-2023 Monocytes/100 WBC (Bld) 8.1 % 0-10 [facility] Blood platelet mean volumeOr dered By: Yuri Crenshaw on 03-09-2023 Platelet mean volume (Bld) [Entitic vol] 10.9 fL 6.2-12.0 [facility] Determination of erythrocyte mean corpuscular volume (MCV)Ordered By: Yuri Crenshaw on 03-09-2023 MCV (RBC) [Entitic vol] 84.7 fL 81-99 [facility] Hematocrit Auto (Bld) [Volum e fraction]Ordered By: Yuri Crenshaw on 03-09-2023 Hematocrit (Bld) [Volume fraction] 30.0 % 37-47 [facility] Laboratory - Chemistry and C hemistry - challengeon 03-09-2023 Glucose Ql (U) Negative [facility] Laboratory - Hematology and Cell countsOrdered By: Yuri Crenshaw on 03-09-2023 Erythrocyte distribution width (RBC) [Entitic vol] 47.6 fL 35.1-43.9 [facility] Erythrocyte distribution width (RBC) [Ratio] 15.6 % 11.6-14.6 [facility] Immature granulocytes/100 WBC (Bld) 1.300 % 0.0-0.9 [facility] Comment on above: IG% - Immature Granu locytes (promyelocytes, myelocytes and metamyelocytes) > 1% indicates that a LEFT SHIFT is Present. MCH (RBC) [Entitic mass] 26.6 pg 27.0-32.0 [facility] Nucleated RBC/100 WBC (Bld) [Ratio] 0.1 % 0-5 [facility] Laboratory - Urinalysison Protein Ql (U) Negative [facility] MCHC Auto (RBC) [Mass/Vol]Or dered By: Yuri Crenshaw on 03-09-2023 MCHC (RBC) [Mass/Vol] 31.3 g/dL 32-36 [facility] Platelets bldOrdered By: Alexis Crenshaw on 03-09-2023 Platelets (Bld) [#/Vol] 281 10*3/uL 150-450 [facility] Serum Treponema species anti body detectionOrdered By: Yuri Crenshaw on 03-09-2023 Treponema sp Ab Ql (S) Non-Reactive [facility] Basophil percentageOrdered B y: Jeanette Roach on 03-08-2023 Basophil percentage 5-10 SEEN /hpf 0-5 [facility] Bilirubin Test strip Ql (U)O rdered By: Jeanette Roach on 03-08-2023 Bilirubin Ql (U) Negative Negative [facility] Ketones Test strip Ql (U)Ord ered By: Jeanette Roach on 03-08-2023 Ketones Ql (U) 50 mg/dl Negative [facility] Mucus LM Ql (Urine sed)Order ed By: Jeanette Roach on 03-08-2023 Mucus Ql (Urine sed) 0 SEEN /hpf [facility] Nitrite Test strip Ql (U)Ord ered By: Jeanette Roach on 03-08-2023 Nitrite Ql (U) Negative Negative [facility] Protein Test strip Ql (U)Ord ered By: Jeanette Roach on 03-08-2023 Protein Ql (U) 30 mg/dl Negative [facility] Squamous epithelial cells de tection in urine sediment by light microscopyOrdered By: Jeanette Roach on 03-08-2023 Epithelial cells.squamous LM Ql (Urine sed) 5-10 SEEN /hpf 5-10 [facility] Urine blood detectionOrdered By: Jeanette Roach on 03-08-2023 RBC Ql (U) 10 /ul Negative [facility] RBC Ql (U) 0-5 SEEN /hpf 0-5 [facility] Urine clarityOrdered By: Marc Roach on 03-08-2023 Clarity (U) Clear Clear [facility] Urine color determinationOrd ered By: Jeanette Roach on 03-08-2023 Color (U) Yellow Yellow [facility] Urine glucose detectionOrder ed By: Jeanette Roach on 03-08-2023 Glucose Ql (U) Normal mg/dl Normal [facility] Urine leukocyte esterase det ection by dipstickOrdered By: Jeanette Roach on 03-08-2023 Leukocyte esterase Test strip Ql (U) 100 /ul Negative [facility] Urine pHOrdered By: Jeanette silva on 03-08-2023 pH (U) 6.5 [pH] 5.0 - 8.0 [facility] Urine sediment bacteria coun t by microscopy (number/high power field)Ordered By: Jeanette Roach on 03-08-2023 Bacteria LM.HPF (Urine sed) [#/Area] 2 /[HPF] None Seen [facility] Urine specific gravity measu rementOrdered By: Jeanette Roach on 03-08-2023 Specific gravity (U) [Rel density] 1.015 1.002-1.030 [facility] Urobilinogen Auto test strip Ql (U)Ordered By: Jeanette Roach on 03-08-2023 Urobilinogen Ql (U) 4 mg/dl Normal [facility] Laboratory - Chemistry and C hemistry - challengeon 02-28-2023 Glucose Ql (U) Negative [facility] Laboratory - Urinalysison Protein Ql (U) Negative [facility] No Panel InformationOrdered By: Yuri Crenshaw on 02-28-2023 Group B Streptococcus Culture Group B Beta Streptococcus is not isolated. [facility] Basophil percentageOrdered B y: Yuri Crenshaw on 02-18-2023 Bilirubin [Mass/Vol] 1.00 mg/dL 0.20-1.00 [facility] Comment on above: For patients on eltr ombopag therapy, use of Dimension [place] TBIL is not recommended. Chloride [Moles/Vol] 108 mmol/L 98-107 [facility] Glucose [Mass/Vol] 85 mg/dL 74-106 [facility] Potassium [Moles/Vol] 3.7 mmol/L 3.5-5.1 [facility] Protein [Mass/Vol] 6.1 g/dL 6.4-8.2 [facility] Sodium [Moles/Vol] 137 mmol/L 136-145 [facility] WBC (Bld) [#/Vol] 10.9 10*3/uL 4.4-11.0 [facility] Blood erythrocytes count (nu mber/volume)Ordered By: Yuri Crenshaw on 02-18-2023 RBC (Bld) [#/Vol] 3.36 10*6/uL 4.2-5.4 [facility] Blood hemoglobin measurement (mass/volume)Ordered By: Yuri Crenshaw on 02-18-2023 Hemoglobin (Bld) [Mass/Vol] 9.5 g/dL 12.0-15.0 [facility] Blood platelet mean volumeOr dered By: Yuri Crenshaw on 02-18-2023 Platelet mean volume (Bld) [Entitic vol] 10.5 fL 6.2-12.0 [facility] Determination of erythrocyte mean corpuscular volume (MCV)Ordered By: Yuri Crenshaw on 02-18-2023 MCV (RBC) [Entitic vol] 87.8 fL 81-99 [facility] Gram stain for investigation of transfusion reactionOrdered By: Yuri Crenshaw on 02-18-2023 Microscopic observation Gram stain Nom (Unsp spec) [facility] Hematocrit Auto (Bld) [Volum e fraction]Ordered By: Yuri Crenshaw on 02-18-2023 Hematocrit (Bld) [Volume fraction] 29.5 % 37-47 [facility] Laboratory - Chemistry and C hemistry - challengeOrdered By: Yuri Crenshaw on 02-18-2023 ALP [Catalytic activity/Vol] 144 U/L 45-117 [facility] ALT [Catalytic activity/Vol] 11 U/L 13-56 [facility] CO2 [Moles/Vol] 20.0 mmol/L 21.0-32.0 [facility] Globulin (S) [Mass/Vol] 3.7 g/dL 2.2-4.2 [facility] Urea nitrogen/Creatinine [Mass ratio] 9.5 mg/mg 10-20 [facility] Laboratory - Hematology and Cell countsOrdered By: Yuri Crenshaw on 02-18-2023 Erythrocyte distribution width (RBC) [Entitic vol] 46.6 fL 35.1-43.9 [facility] Erythrocyte distribution width (RBC) [Ratio] 14.6 % 11.6-14.6 [facility] MCH (RBC) [Entitic mass] 28.3 pg 27.0-32.0 [facility] MCHC Auto (RBC) [Mass/Vol]Or dered By: Yuri Crenshaw on 02-18-2023 MCHC (RBC) [Mass/Vol] 32.2 g/dL 32-36 [facility] No Panel InformationOrdered By: Yuri Crenshaw on 02-18-2023 Estimated GFR (MDRD) Amer 172 mL/min >60 [facility] Comment on above: GFR Calc Estimated GFR (MDRD) Non-Af Amer 142 mL/min >60 [facility] Comment on above: Non- GFR Calc Fibrinogen 527 mg/dl 203-444 [facility] Miscellaneous Test See comment [facility] Comment on above: TEST RESULT LIMITSBi le Acids, Fractionated LCMS Ursodeoxycholic Acids <0.10 umol/L Reference Range: All Ages: <1.9 Cholic Acids 0.90 umol/L Reference Range: All Ages: <2.2 Chenodeoxycholic Acids 1.5 umol/L Reference Range: All Ages: <5.8 Deoxycholic Acids 0.60 umol/L Reference Range: All Ages: <3.3 Total Bile Acids 3.0 umol/L This test was developed and its performance characteristics determined by [employer]. It has not been cleared or approved by the Food and Drug Administration. Reference Range: All Ages: <9.2 TESTING PERFORMED AT [facility]. ORIGINAL REPORT ON FILE IN LAB CONTAINS ADDITIONAL TEST SITE INFORMATION. Vaginal Amniotic Fluid Detection Negative Negative [facility] Comment on above: Amniotic fluid not p resent indicates No Rupture of FetalMembranes at time of specimen collection. Platelets bldOrdered By: Alexis Crenshaw on 02-18-2023 Platelets (Bld) [#/Vol] 278 10*3/uL 150-450 [facility] Serum or plasma albumin edilia urement (mass/volume)Ordered By: Yuri Crenshaw on 02-18-2023 Albumin [Mass/Vol] 2.4 g/dL 3.2-5.0 [facility] Serum or plasma albumin/glob ulin mass ratioOrdered By: Yuri Crenshaw on 02-18-2023 Albumin/Globulin [Mass ratio] 0.6 {ratio} 0.9-2.4 [facility] Serum or plasma calcium edilia urement (mass/volume)Ordered By: Yuri Crenshaw on 02-18-2023 Calcium [Mass/Vol] 8.5 mg/dL 8.5-10.1 [facility] Serum or plasma creatinine m easurement (mass/volume)Ordered By: Yuri Crenshaw on 02-18-2023 Creatinine [Mass/Vol] 0.53 mg/dL 0.55-1.02 [facility] Comment on above: The validity of the calculated GFR & GFRAA in patients over 70 years has not been determined. Clinical correlation is essential. Serum or plasma urea nitroge n measurement (mass/volume)Ordered By: Yuri Crenshaw on 02-18-2023 Urea nitrogen [Mass/Vol] 5 mg/dL 7-18 [facility] Thin prep Papanicolaou smear with manual screeningOrdered By: Yuri Crenshaw on 02-18-2023 Thin prep Papanicolaou smear with manual screening Neisseria or beta-hemolytic Streptococcus isolated. [facility] Thin prep Papanicolaou smear with manual screening 11 U/L 15-37 [facility] Thin prep Papanicolaou smear with manual screening 9 5-15 [facility] Laboratory - Chemistry and C hemistry - challengeon 02-17-2023 Glucose Ql (U) Negative [facility] Laboratory - Urinalysison Protein Ql (U) Negative [facility] Neisseria gonorrhoeae genita l PCROrdered By: Laura Salinas on 02-17-2023 N. gonorrhoeae DNA MAYTE+probe Ql (Genital specimen) [facility] No Panel InformationOrdered By: Laura Salinas on 02-17-2023 Chlamydia trachomatis (PCR) [facility] Laboratory - Chemistry and C hemistry - challengeon 02-02-2023 Glucose Ql (U) Negative [facility] Laboratory - Urinalysison Protein Ql (U) Negative [facility] Absolute lymphocyte countOrd ered By: Love Castillo on 01-30-2023 Lymphocytes Auto (Unsp spec) [#/Vol] 1.57 10*3/uL 0.83-4.51 [facility] Basophil percentageOrdered B y: Love Castillo on 01-30-2023 Basophils/100 WBC (Bld) 0.2 % 0-1 [facility] Bilirubin [Mass/Vol] 1.10 mg/dL 0.20-1.00 [facility] Comment on above: For patients on eltr ombopag therapy, use of Dimension [place] TBIL is not recommended. Chloride [Moles/Vol] 107 mmol/L 98-107 [facility] Eosinophils/100 WBC (Bld) 0.8 % 0-5 [facility] Glucose [Mass/Vol] 102 mg/dL 74-106 [facility] Comment on above: Fasting Glucose resu lt from 100 to 125 mg/dL suggests IMPAIRED HOMEOSTASIS per A.D.A. criteria. Neutrophils (Bld) [#/Vol] 5.8 10*3/uL 2.0-7.7 [facility] Neutrophils/100 WBC (Bld) 69.8 % 47-70 [facility] Potassium [Moles/Vol] 3.1 mmol/L 3.5-5.1 [facility] Protein [Mass/Vol] 6.4 g/dL 6.4-8.2 [facility] Sodium [Moles/Vol] 138 mmol/L 136-145 [facility] WBC (Bld) [#/Vol] 8.4 10*3/uL 4.4-11.0 [facility] Blood erythrocytes count (nu mber/volume)Ordered By: Love Castillo on 01-30-2023 RBC (Bld) [#/Vol] 3.39 10*6/uL 4.2-5.4 [facility] Blood hemoglobin measurement (mass/volume)Ordered By: Love Castillo on 01-30-2023 Hemoglobin (Bld) [Mass/Vol] 10.1 g/dL 12.0-15.0 [facility] Blood lymphocytes/100 leukoc ytesOrdered By: Love Castillo on 01-30-2023 Lymphocytes/100 WBC (Bld) 18.8 % 19-41 [facility] Blood monocytes/100 leukocyt esOrdered By: Love Castillo on 01-30-2023 Monocytes/100 WBC (Bld) 9.4 % 0-10 [facility] Blood platelet mean volumeOr dered By: Love Castillo on 01-30-2023 Platelet mean volume (Bld) [Entitic vol] 9.8 fL 6.2-12.0 [facility] Determination of erythrocyte mean corpuscular volume (MCV)Ordered By: Love Castillo on 01-30-2023 MCV (RBC) [Entitic vol] 90.3 fL 81-99 [facility] Hematocrit Auto (Bld) [Volum e fraction]Ordered By: Love Castillo on 01-30-2023 Hematocrit (Bld) [Volume fraction] 30.6 % 37-47 [facility] Laboratory - Chemistry and C hemistry - challengeOrdered By: Love Castillo on 01-30-2023 ALP [Catalytic activity/Vol] 99 U/L 45-117 [facility] ALT [Catalytic activity/Vol] 22 U/L 13-56 [facility] CO2 [Moles/Vol] 24.0 mmol/L 21.0-32.0 [facility] Globulin (S) [Mass/Vol] 3.9 g/dL 2.2-4.2 [facility] Urea nitrogen/Creatinine [Mass ratio] 8.4 mg/mg 10-20 [facility] Laboratory - Hematology and Cell countsOrdered By: Love Castillo on 01-30-2023 Erythrocyte distribution width (RBC) [Entitic vol] 46.1 fL 35.1-43.9 [facility] Erythrocyte distribution width (RBC) [Ratio] 14.2 % 11.6-14.6 [facility] Immature granulocytes/100 WBC (Bld) 1.000 % 0.0-0.9 [facility] Comment on above: IG% - Immature Granu locytes (promyelocytes, myelocytes and metamyelocytes) > 1% indicates that a LEFT SHIFT is Present. MCH (RBC) [Entitic mass] 29.8 pg 27.0-32.0 [facility] Nucleated RBC/100 WBC (Bld) [Ratio] 0 % 0-5 [facility] MCHC Auto (RBC) [Mass/Vol]Or dered By: Love Castillo on 01-30-2023 MCHC (RBC) [Mass/Vol] 33.0 g/dL 32-36 [facility] No Panel InformationOrdered By: Love Castillo on 01-30-2023 Estimated GFR (MDRD) Amer 151 mL/min >60 [facility] Comment on above: GFR Calc Estimated GFR (MDRD) Non-Af Amer 124 mL/min >60 [facility] Comment on above: Non- GFR Calc Miscellaneous Test See comment [facility] Comment on above: TEST RESULTS LIMITSB ile Acids, Fractionated LCMSUrsodeoxycholic Acids 0.10 umol/LReference Range:All Ages: <1.9Cholic Acids 0.20 umol/LReference Range:All Ages: <2.2Chenodeoxycholic Acids 0.90 umol/LReference Range:All Ages: <5.8Deoxycholic Acids 0.50 umol/LReference Range:All Ages: <3.3Total Bile Acids 1.7 umol/LThis test was developed and its performance characteristicsdetermined by [employer]. It has not been cleared or approvedby the Food and Drug Administration.Reference Range:All Ages: <9.2 TESTING PERFORMED AT [facility]. ORIGINAL REPORT ON FILE IN LAB CONTAINS ADDITIONAL TEST SITE INFORMATION. No Panel InformationOrdered By: Yuri Crenshaw on 01-30-2023 Hepatitis C Antibody Non-Reactive Nonreactive [facility] Comment on above: Non Reactive: < 0.8 Equivocal: >/= 0.8 to < 1.0 Reactive: >/= 1.0The CDC recommends that a reactive/equivocal HCV antibody result be followed up by the HCV Nucleic Acid Amplificationtest (867594) Platelets bldOrdered By: Doug Castillo on 01-30-2023 Platelets (Bld) [#/Vol] 271 10*3/uL 150-450 [facility] Serum hepatitis B virus [place] antibody IgG detectionOrdered By: Yuri Crenshaw on 01-30-2023 HBV surface IgG Ql (S) Non-Reactive [facility] Comment on above: Non Reactive: Incons istent with immunity less than <10 mIU/mL Reactive: Consistent with immunity greater than or equal to 10 mIU/mL Serum or plasma albumin edilia urement (mass/volume)Ordered By: Love Castillo on 01-30-2023 Albumin [Mass/Vol] 2.5 g/dL 3.2-5.0 [facility] Serum or plasma albumin/glob ulin mass ratioOrdered By: Love Castillo on 01-30-2023 Albumin/Globulin [Mass ratio] 0.6 {ratio} 0.9-2.4 [facility] Serum or plasma calcium edilia urement (mass/volume)Ordered By: Love Castillo on 01-30-2023 Calcium [Mass/Vol] 8.6 mg/dL 8.5-10.1 [facility] Serum or plasma creatinine m easurement (mass/volume)Ordered By: Love Castillo on 01-30-2023 Creatinine [Mass/Vol] 0.59 mg/dL 0.55-1.02 [facility] Comment on above: The validity of the calculated GFR & GFRAA in patients over 70 years has not been determined. Clinical correlation is essential. Serum or plasma urea nitroge n measurement (mass/volume)Ordered By: Lovelevar Castillo on 01-30-2023 Urea nitrogen [Mass/Vol] 5 mg/dL 7-18 [facility] Thin prep Papanicolaou smear with manual screeningOrdered By: Lovelevar Castillo on 01-30-2023 Thin prep Papanicolaou smear with manual screening 17 U/L 15-37 [facility] Thin prep Papanicolaou smear with manual screening 7 5-15 [facility] Absolute lymphocyte countOrd ered By: ED PROVIDER on 01-23-2023 Lymphocytes Auto (Unsp spec) [#/Vol] 2.06 10*3/uL 0.83-4.51 [facility] Basophil percentageOrdered B y: ED PROVIDER on 01-23-2023 Basophils/100 WBC (Bld) 0.4 % 0-1 [facility] Chloride [Moles/Vol] 105 mmol/L 98-107 [facility] Eosinophils/100 WBC (Bld) 0.9 % 0-5 [facility] Glucose [Mass/Vol] 99 mg/dL 74-106 [facility] Neutrophils (Bld) [#/Vol] 8.5 10*3/uL 2.0-7.7 [facility] Neutrophils/100 WBC (Bld) 72.6 % 47-70 [facility] Potassium [Moles/Vol] 3.3 mmol/L 3.5-5.1 [facility] Sodium [Moles/Vol] 134 mmol/L 136-145 [facility] WBC (Bld) [#/Vol] 11.7 10*3/uL 4.4-11.0 [facility] Blood erythrocytes count (nu mber/volume)Ordered By: ED PROVIDER on 01-23-2023 RBC (Bld) [#/Vol] 3.71 10*6/uL 4.2-5.4 [facility] Blood hemoglobin measurement (mass/volume)Ordered By: ED PROVIDER on 01-23-2023 Hemoglobin (Bld) [Mass/Vol] 10.9 g/dL 12.0-15.0 [facility] Blood lymphocytes/100 leukoc ytesOrdered By: ED PROVIDER on 01-23-2023 Lymphocytes/100 WBC (Bld) 17.5 % 19-41 [facility] Blood monocytes/100 leukocyt esOrdered By: ED PROVIDER on 01-23-2023 Monocytes/100 WBC (Bld) 6.9 % 0-10 [facility] Blood platelet mean volumeOr dered By: ED PROVIDER on 01-23-2023 Platelet mean volume (Bld) [Entitic vol] 9.7 fL 6.2-12.0 [facility] Determination of erythrocyte mean corpuscular volume (MCV)Ordered By: ED PROVIDER on 01-23-2023 MCV (RBC) [Entitic vol] 89.2 fL 81-99 [facility] Hematocrit Auto (Bld) [Volum e fraction]Ordered By: ED PROVIDER on 01-23-2023 Hematocrit (Bld) [Volume fraction] 33.1 % 37-47 [facility] Laboratory - Chemistry and C hemistry - challengeOrdered By: ED PROVIDER on 01-23-2023 CO2 [Moles/Vol] 18.0 mmol/L 21.0-32.0 [facility] Urea nitrogen/Creatinine [Mass ratio] 14.1 mg/mg 10-20 [facility] Laboratory - Hematology and Cell countsOrdered By: ED PROVIDER on 01-23-2023 Erythrocyte distribution width (RBC) [Entitic vol] 44.8 fL 35.1-43.9 [facility] Erythrocyte distribution width (RBC) [Ratio] 13.9 % 11.6-14.6 [facility] Immature granulocytes/100 WBC (Bld) 1.700 % 0.0-0.9 [facility] Comment on above: IG% - Immature Granu locytes (promyelocytes, myelocytes and metamyelocytes) > 1% indicates that a LEFT SHIFT is Present. MCH (RBC) [Entitic mass] 29.4 pg 27.0-32.0 [facility] Nucleated RBC/100 WBC (Bld) [Ratio] 0 % 0-5 [facility] MCHC Auto (RBC) [Mass/Vol]Or dered By: ED PROVIDER on 01-23-2023 MCHC (RBC) [Mass/Vol] 32.9 g/dL 32-36 [facility] No Panel InformationOrdered By: ED PROVIDER on 01-23-2023 Estimated Creatinine Clearance Calc 151.22 ml/min [facility] Estimated GFR (MDRD) Amer 184 mL/min >60 [facility] Comment on above: GFR Calc Estimated GFR (MDRD) Non-Af Amer 152 mL/min >60 [facility] Comment on above: Non- GFR Calc Troponin I High Sensitivity 6 pg/mL 3.0-54.0 [facility] Comment on above: Please Note: New Theo t Units and Gender Specific Reference Ranges. For more information see Policy Stat Procedure [place] High Sensitivity Troponin (TNIH) and attachments. Platelets bldOrdered By: ED PROVIDER on 01-23-2023 Platelets (Bld) [#/Vol] 310 10*3/uL 150-450 [facility] Serum or plasma calcium edilia urement (mass/volume)Ordered By: ED PROVIDER on 01-23-2023 Calcium [Mass/Vol] 9.4 mg/dL 8.5-10.1 [facility] Serum or plasma creatinine m easurement (mass/volume)Ordered By: ED PROVIDER on 01-23-2023 Creatinine [Mass/Vol] 0.50 mg/dL 0.55-1.02 [facility] Comment on above: The validity of the calculated GFR & GFRAA in patients over 70 years has not been determined. Clinical correlation is essential. Serum or plasma urea nitroge n measurement (mass/volume)Ordered By: ED PROVIDER on 01-23-2023 Urea nitrogen [Mass/Vol] 7 mg/dL 7-18 [facility] Thin prep Papanicolaou smear with manual screeningOrdered By: ED PROVIDER on 01-23-2023 Thin prep Papanicolaou smear with manual screening 11 5-15 [facility] Basophil percentageOrdered B y: Yuri Crenshaw on 01-16-2023 WBC (Bld) [#/Vol] 9.8 10*3/uL 4.4-11.0 [facility] Blood erythrocytes count (nu mber/volume)Ordered By: Yuri Crenshaw on 01-16-2023 RBC (Bld) [#/Vol] 3.16 10*6/uL 4.2-5.4 [facility] Blood hemoglobin measurement (mass/volume)Ordered By: Yuri Crenshaw on 01-16-2023 Hemoglobin (Bld) [Mass/Vol] 9.5 g/dL 12.0-15.0 [facility] Blood platelet mean volumeOr dered By: Yuri Crenshaw on 01-16-2023 Platelet mean volume (Bld) [Entitic vol] 9.9 fL 6.2-12.0 [facility] Chlamydia trachomatis rRNA d etection by probe and target amplification methodOrdered By: Jeanette Roach on 01-16-2023 C. trachomatis rRNA MAYTE+probe Ql (Unsp spec) Positive Negative [facility] Determination of erythrocyte mean corpuscular volume (MCV)Ordered By: Yuri Crenshaw on 01-16-2023 MCV (RBC) [Entitic vol] 92.1 fL 81-99 [facility] Hematocrit Auto (Bld) [Volum e fraction]Ordered By: Yuri Crenshaw on 01-16-2023 Hematocrit (Bld) [Volume fraction] 29.1 % 37-47 [facility] Laboratory - Chemistry and C hemistry - challengeon 01-16-2023 Bilirubin Ql (U) Negative [facility] Glucose Ql (U) Negative [facility] Ketones Ql (U) Small (15+) [facility] Specific gravity (U) [Rel density] 1.010 [facility] Urobilinogen (U) [Mass/Vol] Negative [facility] Laboratory - Hematology and Cell countsOrdered By: Yuri Crenshaw on 01-16-2023 Erythrocyte distribution width (RBC) [Entitic vol] 45.9 fL 35.1-43.9 [facility] Erythrocyte distribution width (RBC) [Ratio] 13.5 % 11.6-14.6 [facility] MCH (RBC) [Entitic mass] 30.1 pg 27.0-32.0 [facility] Laboratory - Hematology and Cell countson 01-16-2023 Hemoglobin Ql (U) Negative [facility] Laboratory - Microbiology an d Antimicrobial susceptibilityOrdered By: Jeanette Roach on 01-16-2023 N. gonorrhoeae DNA MAYTE+probe Ql (Unsp spec) Negative Negative [facility] Comment on above: Performed at: [address] [id number] Director: Rita Vallecillo MD, Phone: [phone] Laboratory - Specimen inform ationon 01-16-2023 Clarity (U) Clear [facility] Color (U) RED [facility] Laboratory - Urinalysison Nitrite Ql (U) Negative [facility] Protein Ql (U) Negative [facility] MCHC Auto (RBC) [Mass/Vol]Or dered By: Yuri Crenshaw on 01-16-2023 MCHC (RBC) [Mass/Vol] 32.6 g/dL 32-36 [facility] No Panel InformationOrdered By: Jeanette Roach on 01-16-2023 Vaginal Amniotic Fluid Detection Negative Negative [facility] Comment on above: Amniotic fluid not p resent indicates No Rupture of FetalMembranes at time of specimen collection. No Panel Informationon 01-16 POC Bacterial Vaginitis (Rapid) Negative [facility] POC Trichomonas (Rapid) Negative [facility] Urine Leukocytes Positive [facility] Urine Non-Hemolyzed Blood [facility] Platelets bldOrdered By: Alexis Crenshaw on 01-16-2023 Platelets (Bld) [#/Vol] 256 10*3/uL 150-450 [facility] Absolute lymphocyte countOrd ered By: Melissa Saxena on 12-21-2022 Lymphocytes Auto (Unsp spec) [#/Vol] 1.45 10*3/uL 0.83-4.51 [facility] Basophil percentageOrdered B y: Melissa Saxena on 12-21-2022 Basophils/100 WBC (Bld) 0.4 % 0-1 [facility] Bilirubin [Mass/Vol] 0.60 mg/dL 0.20-1.00 [facility] Comment on above: For patients on eltr ombopag therapy, use of Dimension [place] TBIL is not recommended. Chloride [Moles/Vol] 106 mmol/L 98-107 [facility] Eosinophils/100 WBC (Bld) 2.5 % 0-5 [facility] Glucose [Mass/Vol] 139 mg/dL 74-106 [facility] Comment on above: Fasting Glucose resu lt greater than or equal to 126 mg/dL suggests DIABETES MELLITUS per A.D.A. criteria. Neutrophils (Bld) [#/Vol] 6.8 10*3/uL 2.0-7.7 [facility] Neutrophils/100 WBC (Bld) 73.4 % 47-70 [facility] Potassium [Moles/Vol] 3.6 mmol/L 3.5-5.1 [facility] Protein [Mass/Vol] 6.6 g/dL 6.4-8.2 [facility] Sodium [Moles/Vol] 137 mmol/L 136-145 [facility] WBC (Bld) [#/Vol] 9.3 10*3/uL 4.4-11.0 [facility] Blood erythrocytes count (nu mber/volume)Ordered By: Melissa Saxena on 12-21-2022 RBC (Bld) [#/Vol] 3.61 10*6/uL 4.2-5.4 [facility] Blood hemoglobin measurement (mass/volume)Ordered By: Melissa Saxena on 12-21-2022 Hemoglobin (Bld) [Mass/Vol] 11.0 g/dL 12.0-15.0 [facility] Blood lymphocytes/100 leukoc ytesOrdered By: Melissa Saxena on 12-21-2022 Lymphocytes/100 WBC (Bld) 15.7 % 19-41 [facility] Blood monocytes/100 leukocyt esOrdered By: Melissa Saxena on 12-21-2022 Monocytes/100 WBC (Bld) 6.9 % 0-10 [facility] Blood platelet mean volumeOr dered By: Melissa Saxena on 12-21-2022 Platelet mean volume (Bld) [Entitic vol] 9.7 fL 6.2-12.0 [facility] Determination of erythrocyte mean corpuscular volume (MCV)Ordered By: Melissa Saxena on 12-21-2022 MCV (RBC) [Entitic vol] 93.9 fL 81-99 [facility] Gestational diabetes screen 1-hour screen with 50g oral glucose loadOrdered By: Melissa Saxena on 12-21-2022 Glucose 1 Hr post 50 g glucose PO [Mass/Vol] 139 mg/dL 70-140 [facility] HIV 1 and HIV-2 antibody ass ay with HIV-1 p24 antigen detectionOrdered By: Melissa Saxena on 12-21-2022 HIV 1+2 Ab+HIV1 p24 Ag IA Ql Non-Reactive Nonreactive [facility] Hematocrit Auto (Bld) [Volum e fraction]Ordered By: Melissa Saxena on 12-21-2022 Hematocrit (Bld) [Volume fraction] 33.9 % 37-47 [facility] Laboratory - Chemistry and C hemistry - challengeOrdered By: Melissa Saxena on 12-21-2022 ALP [Catalytic activity/Vol] 79 U/L 45-117 [facility] ALT [Catalytic activity/Vol] 10 U/L 13-56 [facility] CO2 [Moles/Vol] 21.0 mmol/L 21.0-32.0 [facility] Globulin (S) [Mass/Vol] 4.1 g/dL 2.2-4.2 [facility] Urea nitrogen/Creatinine [Mass ratio] 7.8 mg/mg 10-20 [facility] Laboratory - Chemistry and C hemistry - challengeon 12-21-2022 Glucose Ql (U) Negative [facility] Laboratory - Hematology and Cell countsOrdered By: Melissa Saxena on 12-21-2022 Erythrocyte distribution width (RBC) [Entitic vol] 45.7 fL 35.1-43.9 [facility] Erythrocyte distribution width (RBC) [Ratio] 13.3 % 11.6-14.6 [facility] Immature granulocytes/100 WBC (Bld) 1.100 % 0.0-0.9 [facility] Comment on above: IG% - Immature Granu locytes (promyelocytes, myelocytes and metamyelocytes) > 1% indicates that a LEFT SHIFT is Present. MCH (RBC) [Entitic mass] 30.5 pg 27.0-32.0 [facility] Nucleated RBC/100 WBC (Bld) [Ratio] 0 % 0-5 [facility] Laboratory - Urinalysison Protein Ql (U) Negative [facility] MCHC Auto (RBC) [Mass/Vol]Or dered By: Melissa Saxena on 12-21-2022 MCHC (RBC) [Mass/Vol] 32.4 g/dL 32-36 [facility] No Panel InformationOrdered By: Melissa Saxena on 12-21-2022 Estimated GFR (MDRD) Amer 137 mL/min >60 [facility] Comment on above: GFR Calc Estimated GFR (MDRD) Non-Af Amer 113 mL/min >60 [facility] Comment on above: Non- GFR Calc Hepatitis B Surface Antigen Non-Reactive Nonreactive [facility] Hepatitis C Antibody Non-Reactive Nonreactive [facility] Comment on above: Non Reactive: < 0.8 Equivocal: >/= 0.8 to < 1.0 Reactive: >/= 1.0The CDC recommends that a reactive/equivocal HCV antibody result be followed up by the HCV Nucleic Acid Amplificationtest (382218) Rubella IgG Antibody Reactive Nonreactive [facility] Comment on above: Antibody Results Int erpretation of Immune Status Non Reactive Presumed Non-Immune Equivocal Equivocal Reactive Presumed Immune Platelets bldOrdered By: Ivanna Saxena on 12-21-2022 Platelets (Bld) [#/Vol] 280 10*3/uL 150-450 [facility] Serum Treponema species anti body detectionOrdered By: Melissa Saxena on 12-21-2022 Treponema sp Ab Ql (S) Non-Reactive [facility] Serum or plasma albumin edilia urement (mass/volume)Ordered By: Melissa Saxena on 12-21-2022 Albumin [Mass/Vol] 2.5 g/dL 3.2-5.0 [facility] Serum or plasma albumin/glob ulin mass ratioOrdered By: Melissa Saxena on 12-21-2022 Albumin/Globulin [Mass ratio] 0.6 {ratio} 0.9-2.4 [facility] Serum or plasma calcium edilia urement (mass/volume)Ordered By: Melissa Saxena on 12-21-2022 Calcium [Mass/Vol] 8.6 mg/dL 8.5-10.1 [facility] Serum or plasma creatinine m easurement (mass/volume)Ordered By: Melissa Saxena on 12-21-2022 Creatinine [Mass/Vol] 0.64 mg/dL 0.55-1.02 [facility] Comment on above: The validity of the calculated GFR & GFRAA in patients over 70 years has not been determined. Clinical correlation is essential. Serum or plasma urea nitroge n measurement (mass/volume)Ordered By: Melissa Saxena on 12-21-2022 Urea nitrogen [Mass/Vol] 5 mg/dL 7-18 [facility] Thin prep Papanicolaou smear with manual screeningOrdered By: Melissa Saxena on 12-21-2022 Thin prep Papanicolaou smear with manual screening 8 U/L 15-37 [facility] Thin prep Papanicolaou smear with manual screening 10 5-15 [facility] Urine creatinine measurement (mass/volume)Ordered By: Melissa Saxena on 12-21-2022 Creatinine (U) [Mass/Vol] 122.00 mg/dL NO RANGE EST. [facility] Urine protein measurement (m ass/volume)Ordered By: Melissa Saxena on 12-21-2022 Protein (U) [Mass/Vol] 23.1 mg/dL 0.0-11.8 [facility] Urine protein/creatinine mas s ratioOrdered By: Melissa Saxena on 12-21-2022 Protein/Creatinine (U) [Mass ratio] 189 mg/g CRE 0-200 [facility] PT Progress Noteon 3 PT Progress Note No report was sent Normal [facility] Therapy Communicationon 11-04 Therapy Communication Message QUE ESCOBAR no showed today 11/29/22. Pt NCNS to recheck again. Signatures Electronically signed by : Sylvia Calle, PT; Nov 29 2022 9:53AM EST (Author) Normal [facility] Laboratory - Chemistry and C hemistry - challengeon 11-25-2022 Glucose Ql (U) Negative [facility] Laboratory - Urinalysison Protein Ql (U) Negative [facility] PT Progress Noteon 3 PT Progress Note No report was sent Normal [facility] Therapy Communicationon 11-03 Therapy Communication Message QUE ESCOBAR canceled today 11/17/22. Pt cancel recheck today. If she does not return within 30 days she will be d/c from skilled PT per attendance policy. Signatures Electronically signed by : Sylvia Calle, PT; Nov 17 2022 10:28AM EST (Author) Normal [facility] Blood type and Indirect anti body screen panel (Bld)on 11-11-2022 ABO group Nom (Bld) A [facility] Rh Nom (Bld) Negative [facility] Comment on above: Review your Rh Negat jesus female patient's potential need for Rh Immune Globulin (RhIg)administration. [facility] CBCon 11-11-2022 Erythrocyte distribution width (RBC) [Ratio] 14.2 % Normal 11.5 - 14.5 [facility] Comment on above: Performed By: #### C BC #### [address] [address] Hematocrit (Bld) [Volume fraction] 33.5 % Low 36.0 - 46.0 [facility] Comment on above: Performed By: #### C BC #### [address] [address] Hemoglobin (Bld) [Mass/Vol] 11.4 g/dL Low 12.0 - 16.0 [facility] Comment on above: Performed By: #### C BC #### [address] [address] MCHC (RBC) [Mass/Vol] 34.0 g/dL Normal 32.0 - 36.0 [facility] Comment on above: Performed By: #### C BC #### [address] [address] MCV (RBC) [Entitic vol] 93 fL Normal 80 - 100 [facility] Comment on above: Performed By: #### C BC #### [address] [address] Platelets (Bld) [#/Vol] 271 10*3/uL Normal 150 - 450 [facility] Comment on above: Performed By: #### C BC #### [id number] [place] [address] RBC 3.62 x10E12/L Low 4.00 - 5.20 [facility] Comment on above: Performed By: #### C BC #### [id number] [place] [address] WBC (Bld) [#/Vol] 10.5 10*3/uL Normal 4.4 - 11.3 [facility] Comment on above: Performed By: #### C BC #### [address] [address] CBC panel Auto (Bld)on 11-11 Erythrocyte distribution width (RBC) [Ratio] 14.2 % 11.5 - 14.5 % [facility] Hematocrit (Bld) [Volume fraction] 33.5 % Low 36.0 - 46.0 % [facility] Hemoglobin (Bld) [Mass/Vol] 11.4 g/dL Low 12.0 - 16.0 g/dL [facility] Interpretation and review of laboratory results Abnormal [facility] MCHC (RBC) [Mass/Vol] 34.0 g/dL 32.0 - 36.0 g/dL [facility] MCV (RBC) [Entitic vol] 93 fL 80 - 100 fL [facility] Platelets (Bld) [#/Vol] 271 10*3/uL [facility] RBC (Bld) [#/Vol] 3.62 10*6/uL Low [facility] WBC (Bld) [#/Vol] 10.5 10*3/uL [facility] Daily Progress Note - OB-Tri ageon 11-11-2022 Daily Progress Note - OB-Triage Current Stage: Stage: Triage OB Dating: EDC/EGA Final [id number] EGA21.1 Subjective Data: Antepartum Vaginal Bleeding: Yes Movement: Good Antepartum: Patient presents stating that she has had intermittent vaginal bleeding over the last day. Patient states that the bleeding was minimal and she then had intercourse earlier last night. Patient obtains her care in [place]. Objective Information Objective Information: T PRBPMAPSpO2 [id number]% Date/Time11/11 3: 0:2569 3: 3: 3:48 Range (78 - 115 [...] related to recent intercourse. Follow-up with her [facility] in the next several days. Electronic Signatures for Addendum Section: Andry Rueda) (Signed Addendum 11-Nov-2022 08:36) Patient given recommendation to avoid intercourse for the time being. Electronic Signatures: Andry Rueda) (Signed 11-Nov-2022 07:48) Authored: Current Stage, OB Dating, Subjective Data, Objective Data, Assessment and Plan, Note Completion Last Updated: 11-Nov-2022 08:36 by Andry Rueda) [facility] Laboratory - Blood bankon ABO group Nom (Bld) [facility] Work Phone: Blood group antibody screen Ql Negative [facility] Work Phone: Rh immune globulin screen (Bld) [Interp] Negative [facility] [place] vik [place] Work Phone: Comment on above: Review your Rh Negat jesus female patient's potential need for Rh Immune Globulin (RhIg)administration. Laboratory - Hematology and Cell countson 11-11-2022 Erythrocyte distribution width (RBC) [Ratio] 14.2 % See Below [facility] [place] Work Phone: Comment on above: Reference Range: 11. 5 - 14.5 Hematocrit (Bld) [Volume fraction] 33.5 % below low threshold See Below [facility] [place] Work Phone: Comment on above: Reference Range: 36. 0 - 46.0 Hemoglobin (Bld) [Mass/Vol] 11.4 g/dL below low threshold See Below [facility] [place] Work Phone: Comment on above: Reference Range: 12. 0 - 16.0 MCHC (RBC) [Mass/Vol] 34.0 g/dL See Below [facility] [place] Work Phone: Comment on above: Reference Range: 32. 0 - 36.0 MCV (RBC) [Entitic vol] 93 fL 80 - 100 [facility] [place] Work Phone: Platelets (Bld) [#/Vol] 271 10*3/uL 150 - 450 [facility] [place] Work Phone: RBC (Bld) [#/Vol] 3.62 {x10E12/L} below low threshold See Below [facility] vik [place] Work Phone: Comment on above: Reference Range: 4.0 0 - 5.20 WBC (Bld) [#/Vol] 10.5 10*3/uL 4.4 - 11.3 [facility] v[facility] [place] Work Phone: No Panel Informationon 11-11 [facility] Work Phone: TYPE + SCREENon 11-11-2022 ABO TYPE A Normal [facility] Comment on above: Performed By: #### T +S #### [address] [address] RH TYPE Negative Normal [facility] Comment on above: Result Comment: Revi ew your Rh Negative female patient's potential need for Rh Immune Globulin (RhIg)administration. Performed By: #### T +S #### [id number] Triage Note - OB v4on 2022 Triage Note - OB v4 Triage: General Info: Time of Arrival on [id number]-2705 00:07 Patient arrived viaambulatory Arrived [place] Acuity Level2 Time Acuity Level [id number]-8208 00:15 Chief Complaintvaginal bleeding Spoken Language PreferredEnglish Source of Informationpatient Weight in kg78 kilogram(s) Weight in tec318.9 pound(s) Weight Methodactual (measured) Scale Typestanding Height in feet5 feet Height in inches5.94 inch(es) Height in cm167.4 centimeter(s) Height Methodstated BMI (kg/m2)27.834 square meter Blood Avoidance/Restrictionsn one Previous Transfusion Reactionnot applicable Patient Belongingsremains with patient Patient Belongings Remaining with Patientcell phone/electronics; clothing Home Meds have been Reviewed and Verified with Patient/Familyyes Info: Gravida6 Term Deliveries5 Deliveries0 Abortions0 Living Children5 Patient stated [id number]-2295 Calculation of EGA based on patient stated [...] for Home Blood Pressure Monitorno Admission/Observation/D ischarge/Transfer Date/Xzag73-Gaa-3774 03:53 Discharge Modeambulatory Transportation Methodprivate car Travel History: Travel or ExposureNO travel to International locations in the past 30 days Additional Information: Information Review: Allergies have been Reviewed and Verified with Patient/Familyyes Allergy, Intolerance, Adverse Event: Allergies: No Known Allergies: Active Intolerances: Flagyl: Drug, Nausea/Vomiting, Active Electronic Signatures: Eleuterio Boone (RN) (Signed 11-Nov-2022 00:34) Authored: General Info, Info, Substance, Travel History, Additional Information Mame Hughes) (Signed 11-Nov-2022 03:58) Authored: Disposition/Disch, Additional Information Last Updated: 11-Nov-2022 03:58 by Mame Hughes (MICHAEL) [facility] US PLACENT LOCon 11-11-2022 PLACENT LOC Patient Name: QUE ESCOBAR STUDY: US PLACENT LOC 11/11/2022 2:16 am INDICATION: 32 y/o F with vaginal bleeding . COMPARISON: 09/10/2022 ACCESSION NUMBER(S): [id number] ORDERING CLINICIAN: ANDRY RUEDA TECHNIQUE: Transabdominal sonographic [...] Electronically signed by: SOUTH NAJERA MD [facility] for pregnancyon 3 Single live intrauterine with ultrasound average gestational age of 21 week and 4 days. Placenta is fundal in location without evidence of placenta previa. Please note the examination was performed for assessment of viability and anatomy is not assessed; correlation with outpatient full anatomic survey is recommended. [facility] Interpreted By: SOUTH NAJERA MD Patient Name: QUE ESCOBAR STUDY: US PLACENT LOC 11/11/2022 2:16 am INDICATION: 32 y/o F with vaginal bleeding . COMPARISON: 09/10/2022 ACCESSION NUMBER(S): [id number] ORDERING CLINICIAN: ANDRY RUEDA TECHNIQUE: Transabdominal sonographic [...] 21 week and 4 days gestational age. [facility] South Najera MD - 11/11/2022 Interpreted By: SOUTH NAJERA MD Patient Name: QUE ESCOBAR STUDY: US PLACENT LOC 11/11/2022 2:16 am INDICATION: 32 y/o F with vaginal bleeding . COMPARISON: 09/10/2022 ACCESSION NUMBER(S): [id number] ORDERING CLINICIAN: ANDRY RUEDA TECHNIQUE: Transabdominal sonographic [...] with outpatient full anatomic survey is recommended. [facility] Work Phone: Radiology Study observation (narrative) [facility] Work Phone: US for pregnancyOrdered By: South Najera on 11-11-2022 [facility] Work Phone: PT Progress Noteon 3 PT [...] to doctors? appointments. Primary Language for learning: ivorian. Insurance Insurance reviewed Visit number: 3 08/10 Authorization required after evaluation Insurance: [facility] Evaluating therapist: Sharon Baldwin, PT, DPT PT [...] code time is 38 minutes. Therapeutic exercise (09770): timed minutes 13, units 1 . 3x20 second each UT 3x20 second each levator scap Thoracic Extension 3 x 5 holds N Chin Tuck 10 x 3 holds N Scap Retraction 10 x 3 holds N Pec Stretch . Manual Therapy (72807): timed minutes 25, units 2 . PROM cervical 5' Gentle STW cervical paraspinals, UTs, LS, Pecs 10' Gentle traction 2'. Aquatic Therapy (84249):. Below not performed; deferred at this time d/t current heart monitor All exercises preformed (more content not included)... Normal [facility] PT Progress Noteon 3 PT Progress Note No report was sent Normal [facility] PT Progress Noteon 3 PT Progress Note [...] to doctors? appointments. Primary Language for learning: ivorian. Insurance Insurance reviewed Visit number: 2 07/13 Authorization required after evaluation Insurance: [facility] Evaluating therapist: Sharon Baldwin PT, DPT PT [...] code time is 43 minutes. Aquatic Therapy (55155): timed minutes 43, units 3 . All [...] Gradual exi (more content not included)... Normal [facility] Laboratory - Chemistry and C hemistry - challengeon 10-28-2022 Glucose Ql (U) Negative [facility] Laboratory - Urinalysison Protein Ql (U) Negative [facility] PT Progress Noteon 3 PT Progress Note No report was sent Normal [facility] Therapy Communicationon 10-04 Therapy Communication Message QUE ESCOBAR canceled today . Signatures Electronically signed by : Katalina Roach PTA; Oct 27 2022 11:42AM EST (Author) Normal [facility] PT Initial Evaluationon 10-03 PT Initial Evaluation [...] you for this referral and please call [phone] with any questions or concerns. Clinical Presentation: [...] with manual screening Normal genital kenny isolated [facility] Gram stain for investigation of transfusion reactionOrdered By: Dr. Saxena on 09-29-2022 Microscopic observation Gram stain Nom (Unsp spec) [facility] Gram stain for investigation of transfusion reactionOrdered By: Melissa Saxena on 09-28-2022 Microscopic observation Gram stain Nom (Unsp spec) [facility] Laboratory - Chemistry and C hemistry - challengeon 09-28-2022 Glucose Ql (U) Negative [facility] Laboratory - Urinalysison Protein Ql (U) Negative [facility] Thin prep Papanicolaou smear with manual screeningOrdered By: Melissa Saxena on 09-28-2022 Thin prep Papanicolaou smear with manual screening Normal genital kenny isolated [facility] Provider Note - ED v3on 04-0 Provider Note - ED v3 Provider Note: [...] up with Dr. Yuri Fermin out of [place]. She states that she did have some [...] Alert and oriented x4, GCS 15 , medical assistant cardiology II-XII grossly intact. Sensation and motor function of extremities grossly intact. Psych: Appropriate mood and affect. I have reviewed and confirmed nurses/medics notes for patient past, social and family history. Portions of this note were dictated by speech recognition. An attempt at proof reading was made to minimize errors. Minor errors in care technician may be present. HISTORY OF PRESENTING ILLNESS [...] Past Surgical History Description:EGD Description:Colonscopy Description:Cholecystec damaris MDM MDM/ED COURSE: On evaluation patient did not appear to have any obvious visual changes as when asked what time it was she looked at her phone and appeared to be focusing on it with no difficulty. Patient did the zyteuv-yq-zjix test again with no difficulty showing no [...] is unreason (more content not included)... Normal [facility] ABO/RH GROUP TESTon 09-11-19 23 ABO TYPE A Normal [facility] Comment on above: Performed By: #### A BAY #### [address] [address] RH TYPE Negative Normal [facility] Comment on above: Result Comment: Revi ew your Rh Negative female patient's potential need for Rh Immune Globulin (RhIg)administration. Performed By: #### A BAY #### [address] [address] BASIC METABOLIC PANELon 04- Anion gap [Moles/Vol] 10 mmol/L Normal 10 - [address] [facility] Comment on above: Performed By: #### B MP #### [address] [address] Calcium [Mass/Vol] 8.7 mg/dL Normal 8.6 - 10.3 [facility] Comment on above: Performed By: #### B MP #### [address] [address] Chloride [Moles/Vol] 103 mmol/L Normal 98 - 107 [facility] Comment on above: Performed By: #### B MP #### [address] [address] Creatinine [Mass/Vol] 0.56 mg/dL Normal 0.50 - 1.05 [facility] Comment on above: Performed By: #### B MP #### [address] [address] eGFR FEMALE >90 Normal >90 [facility] Comment on above: Result Comment: CALC ULATIONS OF ESTIMATED GFR ARE PERFORMED USING THE 2020 CKD-EPI STUDY REFIT EQUATION WITHOUT THE RACE VARIABLE FOR THE IDMS-TRACEABLE CREATININE METHODS. https://jasn.asnjournals.org/content/early/ASN.67981 65888 Performed By: #### B MP #### [address] [address] Glucose [Mass/Vol] 84 mg/dL Normal 74 - 99 [facility] Comment on above: Performed By: #### B MP #### [address] [address] HCO3 (Bld) [Moles/Vol] 24 mmol/L Normal 21 - 32 [facility] Comment on above: Performed By: #### B MP #### [address] [address] Potassium [Moles/Vol] 3.8 mmol/L Normal 3.5 - 5.[address] [facility] Comment on above: Performed By: #### B MP #### [address] [address] Sodium [Moles/Vol] 133 mmol/L Low 136 - 145 [facility] Comment on above: Performed By: #### B MP #### [address] [address] Urea nitrogen [Mass/Vol] 10 mg/dL Normal 6 - 23 [facility] Comment on above: Performed By: #### B MP #### [address] [address] CBC AND DIFFERENTIALon 09-10 % AUTOMATED IMMATURE GRAN 1.8 % High 0.0 - 0.9 [facility] Comment on above: Result Comment: Yuliya ture Granulocyte Count (IG) includes promyelocytes, myelocytes and metamyelocytes but does not include bands. Percent differential counts (%) should be interpreted in the context of the absolute cell counts (cells/L). Performed By: #### C BCDF #### [address] [address] Basophils (Bld) [#/Vol] 0.03 10*3/uL Normal 0.00 - 0.10 [facility] Comment on above: Performed By: #### C BCDF #### [address] [address] Basophils/100 WBC (Bld) 0.3 % Normal 0.0 - 2.0 [facility] Comment on above: Performed By: #### C BCDF #### [address] [address] Eosinophils (Bld) [#/Vol] 0.31 10*3/uL Normal 0.00 - 0.70 [facility] Comment on above: Performed By: #### C BCDF #### [address] [address] Eosinophils/100 WBC (Bld) 3.4 % Normal 0.0 - 6.0 [facility] Comment on above: Performed By: #### C BCDF #### [address] [address] Erythrocyte distribution width (RBC) [Ratio] 13.0 % Normal 11.5 - 14.5 [facility] Comment on above: Performed By: #### C BCDF #### [address] [address] Hematocrit (Bld) [Volume fraction] 38.5 % Normal 36.0 - 46.0 [facility] Comment on above: Performed By: #### C BCDF #### [address] [address] Hemoglobin (Bld) [Mass/Vol] 13.3 g/dL Normal 12.0 - 16.0 [facility] Comment on above: Performed By: #### C BCDF #### [address] [address] Lymphocytes (Bld) [#/Vol] 2.18 10*3/uL Normal 1.20 - 4.80 [facility] Comment on above: Performed By: #### C BCDF #### [address] [address] Lymphocytes/100 WBC (Bld) 23.9 % Normal 13.0 - 44.0 [facility] Comment on above: Performed By: #### C BCDF #### [address] [address] MCHC (RBC) [Mass/Vol] 34.5 g/dL Normal 32.0 - 36.0 [facility] Comment on above: Performed By: #### C BCDF #### [address] [address] MCV (RBC) [Entitic vol] 88 fL Normal 80 - 100 [facility] Comment on above: Performed By: #### C BCDF #### [address] [address] Monocytes (Bld) [#/Vol] 0.81 10*3/uL Normal 0.10 - 1.00 [facility] Comment on above: Performed By: #### C BCDF #### [address] [address] Monocytes/100 WBC (Bld) 8.9 % Normal 2.0 - 10.0 [facility] Comment on above: Performed By: #### C BCDF #### [address] [address] Neutrophils (Bld) [#/Vol] 5.64 10*3/uL Normal 1.20 - 7.70 [facility] Comment on above: Result Comment: Perc ent differential counts (%) should be interpreted in the context of the absolute cell counts (cells/L). Performed By: #### C BCDF #### [address] [address] Neutrophils/100 WBC (Bld) 61.7 % Normal 40.0 - 80.0 [facility] Comment on above: Performed By: #### C BCDF #### [address] [address] Platelets (Bld) [#/Vol] 253 10*3/uL Normal 150 - 450 [facility] Comment on above: Performed By: #### C BCDF #### [address] [address] RBC 4.39 x10E12/L Normal 4.00 - 5.20 [facility] Comment on above: Performed By: #### C BCDF #### [address] [address] WBC (Bld) [#/Vol] 9.1 10*3/uL Normal 4.4 - 11.3 [facility] Comment on above: Performed By: #### C BCDF #### [address] [address] HCG,BETA-QUANTITATIVEon HCG,BETA-QUANTITATIVE [address]009 mIU/mL Abnormal [facility] Comment on above: Result Comment: . Total HCG measurement is performed using the Loreto Kitty Access Immunoassay which detects intact HCG and free beta HCG subunit. . This test is not indicated for use as a tumor marker. HCG testing is performed using a different test methodology at [facility] than other [facility]. Direct result comparison should only be made [...] elevation. Performed By: #### H CGQU #### [address] [address] Provider Note - ED v3on Provider Note [...] She is seen by Yuri Crenshaw at [place]. Patient states that nothing makes her symptoms [...] chart was dictated with the use of [employer] software within the framework of the current [...] Flagyl T (more content not included)... Normal [facility] Risk Screen - Adult Emergenc yon 09-10-2022 [...] instruction; written material Cultural Considerationsnone Developmental Considerationsnone Mormon Considerationsnone Learning Assessment (Other Learner): Learning Assessment [...] an injured patient at a Trauma Center ([facility]/[place]): no Electronic Signatures: Jessica Tijerina (RN) (Signed 10-Sep-2022 21:01) Authored: Preferred Language, Patient Preferred Pharmacy, Advanced Directives, Family Violence Adult, Learning Assessment (Patient), Learning Assessment (Other Learner), Pressure Injury/TB/Substance, Pressure Injury, CAGE Last Updated: 10-Sep-2022 21:01 by Jessica Tijerina (RN) References: 1. Data Referenced From Provider Note - ED v3 10-Sep-2022 20:06 [facility] Triage - EDon 09-10-2022 Triage - [...] BMI (kg/m2): 25.881 Calculated BSA (m2) 1.84 Denison Coma Scale: Best Eye Response: (E4) spontaneous Best Motor Response: (M6) obeys commands Best Verbal Response: (V5) oriented Denison Score: 15 Cough lasting greater than 3 weeks: no Allergies: yes Mask applied: no BLADE CHANGER History: Patient has homicidal thoughts: no Symptoms [...] 10-Sep-2022 21:00 by Jessica Tijerina (RN) Normal [facility] UA MICROSCOPICon 09-10-2022 Mucus Ql (Urine sed) 1+ /LPF Normal [facility] Comment on above: Performed By: #### U [place]IC ####[place] [address] RBC 5 /HPF Normal 0-5 [facility] Comment on above: Performed By: #### U AMIC ####[place] [address] SQUAMOUS EPITH. CELLS 2 /HPF Normal [facility] Comment on above: Performed By: #### U AMIC ####[place] [address] WBC 1 /HPF Normal 0-5 [facility] Comment on above: Performed By: #### U AMIC ####[place] [address] URINALYSIS WITH CULTURE IF I NDICATEDon 09-10-2022 Appearance (U) CLEAR Normal CLEAR [facility] Comment on above: Performed By: #### U ARFX #### [place] [address] Bilirubin Ql (U) Negative Normal NEGATIVE [facility] Comment on above: Performed By: #### U ARFX #### [place] [address] Color (U) Yellow Normal STRAW,YELLOW [facility] Comment on above: Performed By: #### U ARFX #### [place] [address] Glucose Ql (U) Negative Normal NEGATIVE [facility] Comment on above: Performed By: #### U ARFX #### [place] [address] Hemoglobin Ql (U) MODERATE(2+) Abnormal NEGATIVE [facility] Comment on above: Performed By: #### U ARFX #### [place] [address] Ketones Ql (U) Negative Normal NEGATIVE [facility] Comment on above: Performed By: #### U ARFX #### [address] [address] Leukocyte esterase Test strip Ql (U) Negative Normal NEGATIVE [facility] Comment on above: Performed By: #### U ARFX #### [address] [address] Nitrite Ql (U) Negative Normal NEGATIVE [facility] Comment on above: Performed By: #### U ARFX #### [place] [id number] pH (U) 5.0 [pH] Normal 5.0 - 8.0 [facility] Comment on above: Performed By: #### U ARFX #### [place] [id number] Protein Ql (U) Negative Normal NEGATIVE [facility] Comment on above: Performed By: #### U ARFX #### [place] [id number] Specific gravity (U) [Rel density] 1.028 Normal 1.005 - 1.035 [facility] Comment on above: Performed By: #### U ARFX #### [place] [id number] Urobilinogen (U) [Mass/Vol] mg/dL Normal 0.0 - 1.9 [facility] Comment on above: Performed By: #### U ARFX #### [place] [id number] US AGEon 09-10[birth year]22 US AGE Patient Name: QUE ESCOBAR STUDY: US AGE 409/10/2022 9:33 pm INDICATION: 32 y/o F with 12 WEEKS / BLEEDING. LMP: Unknown. COMPARISON: None. ACCESSION NUMBER(S): [id number] ORDERING CLINICIAN: CHEYANNE BRIGGS TECHNIQUE: Routine ultrasound [...] detected. Electronically signed by: EDY BRIGGS MD [facility] Culture, urineOrdered By: Dr Susana Saxena on 08-20-2022 Bacteria identified Cx Nom (U) Culture exhibits no growth. [facility] Cervical or vagninal specime n microscopic examination by cytology stain (reported asOrdered By: Dr. Saxena on 08-17-2022 Cytology report Cyto stain Doc (Cvx/Vag) Comment . [facility] Comment on above: The Pap smear is [...] rRNA MAYTE+probe Ql (Unsp spec) Negative Negative [facility] Detection in cervical specim en of any of human papilloma virus (HPV) 16, 18, 31, 33,Ordered By: Dr. Saxena on 08-17-2022 HPV 16+18+31+33+35+39+45+5 1+52+56+58+59+66+68 DNA Probe+sig amp Ql (Cvx) Negative Negative [facility] Comment on above: This nucleic acid am plification test detects fourteen high- risk HPV types (16,18,31,33,35,39,45,51,52,56,58,59,66,68)without differentiation. Laboratory - CytologyOrdered By: Dr. Saxena on 08-17-2022 Police Lieutenant Cyto stain Nom (Cvx/Vag) [ID] Comment . [facility] Comment on above: Lizandro Ferrer [facility] otechnologist (ASCP) Laboratory - Microbiology an d Antimicrobial susceptibilityOrdered By: Dr. Saxena on 08-17-2022 N. gonorrhoeae DNA MAYTE+probe Ql (Unsp spec) Negative Negative [facility] Comment on above: Performed at: [address] [id number] Director: Rita Vallecillo MD, Phone: [phone] Laboratory - Miscellaneous t estsOrdered By: Dr. Saxena on 08-17-2022 Service comment (Unsp spec) [Interp] Comment . [facility] Comment on above: This liquid based Th inPrep(R) pap test was screened withthe use of an image guided system. Service comment (Unsp spec) [Interp] . . [facility] Liquid-based cerv Pap + CT/G C by MAYTE w reflex to high-risk HPV for ASCUSOrdered By: Dr. Saxena on 08-17-2022 Cytology report Cyto stain.thin prep Doc (Cvx/Vag) Comment . [facility] Comment on above: Criteria not met, HP V Genotype not performed.Performed at: - [address] [id number] Director: Rita Vallecillo MD, Phone: [phone] at: =[facility] [address] [id number] Director: Rita Vallecillo MD, Phone: [phone] No Panel InformationOrdered By: Dr. Saxena on 08-17-2022 Pathology report final diagnosis Narrative Comment . [facility] Comment on above: NEGATIVE FOR INTRAEP ITHELIAL LESION OR MALIGNANCY.CELLULAR CHANGES ASSOCIATED WITH INFLAMMATION ARE PRESENT. COVID-19/INFLUENZA A,B NBA Tharonald 08-02-2022 SARS-CoV-2 (COVID-19) Ab IA Ql INFLUENZA A (CEPHEID): Not Detected INFLUENZA B (CEPHEID): Not Detected SARS-COV-2 (CEPHEID): Not Detected This test was performed under the FDA's Emergency Use Authorization (EUA). Testing was performed using the Xpert?? Xpress SARS-CoV-2/Flu/RSV plus RT-PCR [employer] assay on the [employer] Xpress System. This test has not been approved for use in asymptomatic patients and its performance in this patient population has not been evaluated. Negative results do not rule out the presence of SARS-CoV-2/COVID-19. Fact sheets for this EUA can be found at the following links: For Healthcare Providers: https://www.fda.gov/med ia/681731/download For Patients: https://www.fda.gov/med ia/042061/download [facility] Comment on above: Performed By: #### L [id number] #### [facility] [address], [place] [address] Roberto Cruz M.D. [id number] HCG, Quanton 07-30-2022 HCG, Quant 29370 mIU/mL High <5 [facility] Comment on above: Result Comment: Non-preg premeno <=5 Postmeno <=8 Male <=3 If HCG results do not concur with clinical observations, additional testing to confirm results is recommended. Performed By: #### B HCG #### [facility] [address] [place] [address] Christmas Bell Ringer: Osiel Sapp MD HCG, Quantitative, on 07-30-2022 hCG Quant [id number] High NINF [facility] Comment on above: Non-preg premeno <=5 Postmeno <=8 Male <=3 If HCG results do not concur with clinical observations, additional testing to confirm results is recommended. Interpretation and review of laboratory results Abnormal [facility] Serum or plasma choriogonado tropin detectionOrdered By: Dr. Saxena on 07-29-2022 HCG ( test) Ql 9612 mIU/mL <4 [facility] Comment on above: hCG levels with Gest ational AgeGestational Age hCG mIU/mL (IU/L)0.2 - 1 week 5 - 501-2 weeks 50 - 5002-3 weeks 100 - 22415-2 weeks 500 - 849225-2 weeks 1000 - 380597-2 weeks 27815 - 100,0006-8 weeks 36160 - 200,0002-3 months 04474 - 100,000 Cult,Urineon 07-28-2022 Cult,Urine Specimen Description .URINE, MIDSTREAM Culture NO SIGNIFICANT GROWTH Report Status FINAL 07/28/2022 [facility] Comment on above: Performed By: #### U RC #### [facility] [employer] [address] [place] [address] Christmas Bell Ringer: Lucas Olson MD [facility] [address] [place] [address] Christmas Bell Ringer: Osiel Sapp MD HCG, Quanton 07-28-2022 HCG, Quant 7888 mIU/mL High <5 [facility] Comment on above: Result Comment: Non-preg premeno <=5 Postmeno <=8 Male <=3 If HCG results do not concur with clinical observations, additional testing to confirm results is recommended. Performed By: #### B HCG #### [facility] [address] [place] [address] Christmas Bell Ringer: Osiel Sapp MD US OB TRANSVAGINALon 023 [...] Charles Jay MD 07/28/22 Final result Normal [facility] Single viable intrauterine with only a yolk sac visualized with an estimated sonographic age less than 5 weeks. Question subcentimeter subchorionic hemorrhage. Recommend serial beta hCGs and follow-up ultrasound. [facility] TRANSVAGINAL FIRST TRIMESTER OB ULTRASOUND HISTORY: ; [...] no free fluid seen within the cul-de-sac. [facility] Charles Foote MD - 07/28/2022 TRANSVAGINAL FIRST TRIMESTER OB [...] Recommend serial beta hCGs and follow-up ultrasound. [employer] Work Phone: Radiology Study observation (narrative) [facility] [employer] Work Phone: US OB TRANSVAGINALOrdered By : Charles Jay on 07-28-2022 [facility] [employer] Work Phone: hCG, Quantitative, on 07-28-2022 hCG Quant 7888 High NINF [facility] [employer] Comment on above: Non-preg premeno <=5 Postmeno <=8 Male <=3 If HCG results do not concur with clinical observations, additional testing to confirm results is recommended. Interpretation and review of laboratory results Abnormal [facility] [employer] [facility] [employer] CBC with Diffon 07-26-2022 Abs. Basophil 0.00 k/uL Normal 0.0-0.2 [facility] Comment on above: Performed By: #### C DP, CP #### [facility] [address] [place] [address] Christmas Bell Ringer: Osiel Sapp MD Abs.Neutrophil (Seg) 5.10 k/uL Normal 2.5-7.0 [facility] Comment on above: Performed By: #### C DP, CP #### [facility] [address] [place] [phone] Christmas Bell Ringer: Osiel Sapp MD Auto Diff Performed YES Normal [facility] Comment on above: Performed By: #### C DP, CP #### [facility] [address] [place] [phone] Christmas Bell Ringer: Osiel Sapp MD Basophils/100 WBC (Bld) 0 % Normal 0-2 [facility] Comment on above: Performed By: #### C DP, CP #### [facility] [address] [place] [phone] Christmas Bell Ringer: Osiel Sapp MD Eosinophils (Bld) [#/Vol] 0.30 10*3/uL Normal 0.0-0.4 [facility] Comment on above: Performed By: #### C DP, CP #### [facility] [address] [place] [phone] Christmas Bell Ringer: Osiel Sapp MD Eosinophils/100 WBC (Bld) 3 % Normal 0-5 [facility] Comment on above: Performed By: #### C DP, CP #### [facility] [address] [place] [address] Christmas Bell Ringer: Osiel Sapp MD Erythrocyte distribution width (RBC) [Ratio] 13.1 % Normal 12.1-15.2 [facility] Comment on above: Performed By: #### C DP, CP #### [facility] [address] [place] [phone] Christmas Bell Ringer: Osiel Sapp MD Hematocrit (Bld) [Volume fraction] 41.1 % Normal 36-46 [facility] Comment on above: Performed By: #### C DP, CP #### [facility] [address] [place] [address] Christmas Bell Ringer: Osiel Sapp MD Hemoglobin (Bld) [Mass/Vol] 14.0 g/dL Normal 12.0-16.0 [facility] Comment on above: Performed By: #### C DP, CP #### [facility] [address] [place] [address] Christmas Bell Ringer: Osiel Sapp MD Lymphocytes (Bld) [#/Vol] 2.40 10*3/uL Normal 1.0-4.8 [facility] Comment on above: Performed By: #### C DP, CP #### [facility] [address] [place] [address] Christmas Bell Ringer: Osiel Sapp MD Lymphocytes/100 WBC (Bld) 28 % Normal 15-40 [facility] Comment on above: Performed By: #### C DP, CP #### [facility] [address] [place] [address] Christmas Bell Ringer: Osiel Sapp MD MCH (RBC) [Entitic mass] 30.3 pg Normal 26-34 [facility] Comment on above: Performed By: #### C DP, CP #### [facility] [address] [place] [address] Christmas Bell Ringer: Osiel Sapp MD MCHC (RBC) [Mass/Vol] 34.0 g/dL Normal 31-37 [facility] Comment on above: Performed By: #### C DP, CP #### [facility] [address] [place] [address] Christmas Bell Ringer: Osiel Sapp MD MCV (RBC) [Entitic vol] 89.2 fL Normal 80-100 [facility] Comment on above: Performed By: #### C DP, CP #### [facility] [address] [place] [address] Christmas Bell Ringer: Osiel Sapp MD Monocytes (Bld) [#/Vol] 0.60 10*3/uL Normal 0.0-1.0 [facility] Comment on above: Performed By: #### C DP, CP #### [facility] [address] [place], [place] [phone] Christmas Bell Ringer: Osiel Sapp MD Monocytes/100 WBC (Bld) 7 % Normal 4-8 [facility] Comment on above: Performed By: #### C DP, CP #### [facility] [address] [place], [place] [phone] Christmas Bell Ringer: Osiel Sapp MD Neutrophil (Seg) 62 % Normal 47-75 [facility] Comment on above: Performed By: #### C DP, CP #### [facility] [address] [place], [place] [phone] Christmas Bell Ringer: Osiel Sapp MD Platelets (Bld) [#/Vol] 276 10*3/uL Normal 140-450 [facility] Comment on above: Performed By: #### C DP, CP #### [facility] [address] [place], [place] [phone] ([phone] Christmas Bell Ringer: Osiel Sapp MD RBC (Bld) [#/Vol] 4.61 10*6/uL Normal 4.0-5.2 [facility] Comment on above: Performed By: #### C DP, CP #### [facility] [address] [place], [place] [phone] Christmas Bell Ringer: Oisel Sapp MD WBC (Bld) [#/Vol] 8.3 10*3/uL Normal 3.5-11.0 [facility] Comment on above: Performed By: #### C DP, CP #### [facility] [address] [place], [place] [phone] Christmas Bell Ringer: Osiel Sapp MD Comp Metabolic Profon 2022 Albumin [Mass/Vol] 4.3 g/dL Normal 3.5-5.2 [facility] Comment on above: Performed By: #### C DP, CP #### [facility] [address] [place], [place] [phone] Christmas Bell Ringer: Osiel Sapp MD Alkaline Phos 115 U/L High 35-104 [facility] Comment on above: Performed By: #### C DP, CP #### [facility] [address] [place], [place] [phone] Christmas Bell Ringer: Osiel Sapp MD ALT [Catalytic activity/Vol] 16 U/L Normal 5-33 [facility] Comment on above: Performed By: #### C DP, CP #### [facility] [address] [place], [place] [phone] Christmas Bell Ringer: Osiel Sapp MD Anion gap [Moles/Vol] 12 mmol/L Normal 9-17 [facility] Comment on above: Performed By: #### C DP, CP #### [facility] [address] [place], [place] [phone] Christmas Bell Ringer: Osiel Sapp MD AST [Catalytic activity/Vol] 17 U/L Normal <32 [facility] Comment on above: Performed By: #### C DP, CP #### [facility] [address] [place], [place] [phone] Christmas Bell Ringer: Osiel Sapp MD Bilirubin [Mass/Vol] 0.6 mg/dL Normal 0.3-1.2 [facility] Comment on above: Performed By: #### C DP, CP #### [facility] [address] [place], [place] [phone] Christmas Bell Ringer: Osiel Sapp MD BUN/CRE Ratio 13 Normal 9-20 [facility] Comment on above: Performed By: #### C DP, CP #### [facility] [address] [place], [place] [phone] Christmas Bell Ringer: Osiel Sapp MD Calcium [Mass/Vol] 9.1 mg/dL Normal 8.6-10.4 [facility] Comment on above: Performed By: #### C DP, CP #### [facility] [address] [place], [place] [phone] Christmas Bell Ringer: Osiel Sapp MD Chloride [Moles/Vol] 99 mmol/L Normal 98-107 [facility] Comment on above: Performed By: #### C DP, CP #### [facility] [address] [place], [place] [phone] Christmas Bell Ringer: Osiel Sapp MD CO2 [Moles/Vol] 20 mmol/L Normal 20-31 [facility] Comment on above: Performed By: #### C DP, CP #### [facility] [address] [place], [place] [phone] Christmas Bell Ringer: Osiel Sapp MD Creatinine [Mass/Vol] 0.82 mg/dL Normal 0.50-0.90 [facility] Comment on above: Performed By: #### C DP, CP #### [facility] [address] [place], [place] [phone] Christmas Bell Ringer: Osiel Sapp MD GFR/1.73 sq M.predicted among non-blacks MDRD (S/P/Bld) [Vol rate/Area] mL/min/{1.73_m2} Normal >60 [facility] Comment on above: Result Comment: These results [...] Performed By: #### C DP, CP #### [facility] [address] [place], [place] [phone] Christmas Bell Ringer: Osiel Sapp MD Glucose [Mass/Vol] 91 mg/dL Normal 70-99 [facility] Comment on above: Performed By: #### C DP, CP #### [facility] [address] [place], [place] [phone] Christmas Bell Ringer: Osiel Sapp MD Potassium [Moles/Vol] 3.7 mmol/L Normal 3.7-5.3 [facility] Comment on above: Performed By: #### C DP, CP #### [facility] [address] [place], [place] [phone] Christmas Bell Ringer: Osiel Sapp MD Protein [Mass/Vol] 7.2 g/dL Normal 6.4-8.3 [facility] Comment on above: Performed By: #### C DP, CP #### [facility] [address] [place], [place] [phone] Christmas Bell Ringer: Osiel Sapp MD Sodium [Moles/Vol] 131 mmol/L Low 135-144 [facility] Comment on above: Performed By: #### C DP, CP #### [facility] [address] [place], [place] [phone] Christmas Bell Ringer: Osiel Sapp MD Urea nitrogen [Mass/Vol] 11 mg/dL Normal 6-20 [facility] Comment on above: Performed By: #### C DP, CP #### [facility] [address] [place] [address] Christmas Bell Ringer: Osiel Sapp MD HCG, ,Urineon 07-26 Beta HCG ( test) Ql (U) Positive Abnormal NEG [facility] Comment on above: Result Comment: If H CG results do not concur with clinical observations, additional testing to confirm result is recommended. This test is not labeled for use as a tumor marker. Performed By: #### U A, UHCG, UMICAO #### [facility] [address] [place], [place] [phone] Christmas Bell Ringer: Osiel Sapp MD HCG, Quanton 07-26-2022 HCG, Quant 5174 mIU/mL High <5 [facility] Comment on above: Result Comment: Non-preg premeno <=5 Postmeno <=8 Male <=3 If HCG results do not concur with clinical observations, additional testing to confirm results is recommended. Performed By: #### B HCG #### [facility] [address] [place], [place] [phone] Christmas Bell Ringer: Osiel Sapp MD Urinalysis, Routineon 2022 Bilirubin, SemiQt,Ur Negative Normal NEG [facility] Comment on above: Performed By: #### U A, CG, UMICAO #### [facility] [address] [place], [place] [phone] Christmas Bell Ringer: Osiel Sapp MD Blood, Urine Negative Normal NEG [facility] Comment on above: Performed By: #### U A, UHCG, UMICAO #### [facility] [address] [place], [place] [phone] Christmas Bell Ringer: Osiel Sapp MD Clarity (U) Clear Normal CLEAR [facility] Comment on above: Performed By: #### U A, UHCG, UMICAO #### [facility] [address] [place], [place] [phone] Christmas Bell Ringer: Osiel Sapp MD Color (U) Yellow Normal YEL [facility] Comment on above: Performed By: #### U A, CG, UMICAO #### [facility] [address] [facility] [place] [phone] Christmas Bell Ringer: Osiel Sapp MD Comment Normal [facility] Comment on above: Performed By: #### U A, UHCG, UMICAO #### [facility] [address] [facility] [place] [phone] Christmas Bell Ringer: Osiel Sapp MD Glucose Ql (U) Negative Normal NEG [facility] Comment on above: Performed By: #### U A, [facility], UM[facility]O #### [facility] [address] [place] [address] Christmas Bell Ringer: Osiel Sapp MD Ketones Ql (U) TRACE Abnormal NEG [facility] Comment on above: Performed By: #### U A, CG, UMICAO #### [facility] [address] [place] [address] Christmas Bell Ringer: Osiel Sapp MD Leukocyte esterase Test strip Ql (U) 1+ Abnormal NEG [facility] Comment on above: Performed By: #### U Renee [facility] UM[facility]O #### [facility] [address] [place] [address] Christmas Bell Ringer: Osiel Sapp MD Nitrite,Ur Negative Normal NEG [facility] Comment on above: Performed By: #### U A, [facility] UM[facility] #### [facility] [address] [place] [address] Christmas Bell Ringer: Osiel Sapp MD PH,Ur 5.0 Normal 5.0-8.0 [facility] Comment on above: Performed By: #### U Renee, [facility] UM[facility] #### [facility] [address] [place] [address] Christmas Bell Ringer: Osiel Sapp MD Protein Ql (U) TRACE Abnormal NEG [facility] Comment on above: Performed By: #### U A, [facility] UM[facility] #### [facility] [address] [place] [address] Christmas Bell Ringer: Osiel Sapp MD Spec. [place],Ur 1.025 Normal 1.005-1.030 [facility] Comment on above: Performed By: #### U A, UHCG, UMICAO #### [facility] [address] [place] [address] Christmas Bell Ringer: Osiel Sapp MD Urobilinogen,Ur Normal Normal NORM [facility] Comment on above: Performed By: #### U A, CG, UMICAO #### [facility] [address] [place] [address] Christmas Bell Ringer: Osiel Sapp MD Urinalysis,Microon 3 ----- Normal [facility] Comment on above: Performed By: #### U A, CG, UMICAO #### [facility] [address] [place] [address] Christmas Bell Ringer: Osiel Sapp MD Bacteria RARE Abnormal NONE [facility] Comment on above: Performed By: #### U A, CG, UMICAO #### [facility] [address] [place] [address] Christmas Bell Ringer: Osiel Sapp MD Urine RBC's 0 TO 2 Normal 0-2 [facility] Comment on above: Performed By: #### U A, CG, UMICAO #### [facility] [address] [place] [address] Christmas Bell Ringer: Osiel Sapp MD Urine WBC's 2 TO 5 Normal 0 [facility] Comment on above: Performed By: #### U A, CG, UMICAO #### [facility] [address] [place] [address] Christmas Bell Ringer: Osiel Sapp MD CT LUMBAR SPINE WO [...] Ashly Miles DO 07/14/22 Final result Normal [facility] Unremarkable CT examination of the lumbar spine. [facility] EXAMINATION:CT LUMBA R SPINE [...] Surrounding paraspinal soft tissues are grossly unremarkable. [facility] Ashly Miles DO - [...] Unremarkable CT examination of the lumbar spine. [employer] Work Phone: CT LUMBAR SPINE WO CONTRASTO rdered By: Ashly Miles on 07-14-2022 [facility] [employer] Work Phone: HCG, ,Urineon 07-14 Beta HCG ( test) Ql (U) Negative Normal NEG [facility] Comment on above: Performed By: #### U HCG ####[facility] [id number] [place] [address] lab Director: Osiel Sapp MD CT LUMBAR SPINE WO CONTRASTo n 07-13-2022 Radiology Study observation (narrative) [employer] Phone: Urine Preg (Lab)on 3 Beta HCG ( test) Ql (U) Negative NEGATIVE [facility] COVID-19/INFLUENZA A,B NBA Valadez 05-09-2022 SARS-CoV-2 (COVID-19) Ab IA Ql INFLUENZA A (CEPHEID): Detected INFLUENZA B (CEPHEID): Not Detected SARS-COV-2 (CEPHEID): Not Detected This test was performed under the FDA's Emergency Use Authorization (EUA). Testing was performed using the Xpert?? Xpress SARS-CoV-2/Flu/RSV plus RT-PCR Cepheid assay on the AccuVein Xpress System. This test has not been approved for use in asymptomatic patients and its performance in this patient population has not been evaluated. Negative results do not rule out the presence of SARS-CoV-2/COVID-19. Fact sheets for this EUA can be found at the following links: For Healthcare Providers: https://www.fda.gov/med ia/490383/download For Patients: https://www.fda.gov/med ia/041765/download [facility] Comment on above: Performed By: #### L [id number] #### SH [address] [address] Roberto Cruz M.D. [id number] CORONAVIRUS 2019, SCREEN ASY MPTOMATICon 11-09-2021 SARS-CoV-2 (COVID-19) RNA MAYTE+probe Ql (Unsp spec) Canceled Normal [facility] Comment on above: Order Comment: TEST CORONAVIRUS 2019, SCREEN ASYMPTOMATIC WAS CANCELLED, 11/09/2021 11:40 test [...] patient management decisions. Fact sheet for providers: https://www.fda.gov/media/204980/download Fact sheet for patients: https://www.fda.gov/media/799570/download This test has received [facility] Emergency Use Authorization (EUA) and has been verified by [facility] ([facility]). This test is only authorized for the duration of time that circumstances exist to justify the authorization of the emergency use of in vitro diagnostic tests for the detection of SARS-CoV-2 virus and/or diagnosis of COVID-19 infection under section 564(b)(1) of the Act, 21 U.S.C. 360bbb-3(b)(1), unless the authorization is terminated or revoked sooner. [facility] is certified under CLIA-88 as qualified to perform high complexity testing. Testing is performed in the [facility] laboratories located at [address] [place] [address]. Performed By: #### C OVSC #### [place] [address] CORONAVIRUS 2019, SCREEN ASY MPTOMATICon 10-11-2021 SARS-CoV-2 (COVID-19) RNA MAYTE+probe Ql (Unsp spec) Not detected Normal Not Detected [facility] Comment on above: Result Comment: . This [...] patient management decisions. Fact sheet for providers: https://www.fda.gov/media/254048/download Fact sheet for patients: https://www.fda.gov/media/443127/download This test has received FDA Emergency Use Authorization (EUA) and has been verified by [facility] ([facility]). This test is only authorized for the duration of time that circumstances exist to justify the authorization of the emergency use of in vitro diagnostic tests for the detection of SARS-CoV-2 virus and/or diagnosis of COVID-19 infection under section 564(b)(1) of the Act, 21 U.S.C. 360bbb-3(b)(1), unless the authorization is terminated or revoked sooner. [facility] is certified under CLIA-88 as qualified to perform high complexity testing. Testing is performed in the [facility] laboratories located at [address] [place] [address]. Performed By: #### C OVSC #### [facility] [address] [facility] [place] [address] Covid 19 Resultson 2 SARS-CoV-2 (COVID-19) RNA [...] You may also be contacted by the [facility] to see if any of your close [...] or Naproxen (Aleve) can also be used. Nzfo-sdq-spgsoja cough and cold medicines can be used according to the instructions on the package. Some dvbr-wlw-nkeyrtz medicines also contain acetaminophen. Make sure you [...] water are not available, use alcohol-based hand tape edge machine operator. Avoid touching your eyes, nose, and mouth [...] 24 suzette (more content not included)... Normal [facility] CORONAVIRUS 2019, SCREEN ASY MPTOMATICon 10-10-2021 Lab Specimen Source Nasal, Nasopharyngeal Normal [facility] Comment on above: Performed By: #### C OVSC #### [facility] [address] [place] [address] Coronavirus 2019 RNA by PCR, Screening Asymptomticon 10-10-2021 Coronavirus 2019 RNA by PCR, Screening Asymptomtic Not detected Normal See Below [place] [address] [employer] Work Phone: Comment on above: SOURCE: Nasal, [...] make patient management decisions.Fact sheet for providers: https://www.fda.gov/media/721775/downloadFact sheet for patients: https://www.fda.gov/media/921990/downloadThis test has received FDA Emergency Use Authorization (EUA) and has been verified by [facility] ([facility]). This test is only authorized for the duration of time that circumstances exist to justify the authorization of the emergency use of in vitro diagnostic tests for the detection of SARS-CoV-2 virus and/or diagnosis of COVID-19 infection under section 564(b)(1) of the Act, 21 U.S.C. 360bbb-3(b)(1), unless the authorization is terminated or revoked sooner. [facility] is certified under CLIA-88 as qualified to perform high complexity testing. Testing is performed in the [facility] laboratories located at [id number] [place] [address]. CORONAVIRUS 2018, SCREEN ASY MPTOMATICon 10-08-2021 Lab Specimen Source Nasal, Nasopharyngeal Normal [facility] Comment on above: Order Comment: TEST CORONAVIRUS 2018, SCREEN ASYMPTOMATIC WAS CANCELLED, 11/09/2021 11:40 test not completed. Performed By: #### C OVSC #### [facility] [address] [place] [address]. [place] [address] Laboratory - Chemistry and C hemistry - challengeon 09-26-2021 Albumin BCP dye [Mass/Vol] 3.2 g/dL below low threshold 3.4 - 5.0 [employer] Work Phone: ALP [Catalytic activity/Vol] 125 U/L above high threshold 33 - 110 [facility] Work Phone: ALT With P-5'-P [Catalytic activity/Vol] 7 U/L 7 - 45 [facility] [employer] Work Phone: Comment on above: Patients treated wit h Sulfasalazine may generate falsely decreased results for ALT. Anion gap [Moles/Vol] 14 mmol/L 10 - 20 [facility] Work Phone: AST With P-5'-P [Catalytic activity/Vol] 10 U/L 9 - 39 [facility] [employer] Work Phone: Bilirubin [Mass/Vol] 0.6 mg/dL 0.0 - 1.2 [facility] Work Phone: Calcium [Mass/Vol] 7.7 mg/dL below low threshold 8.6 - 10.3 [employer] Work Phone: Chloride [Moles/Vol] 107 mmol/L 98 - 107 [facility] Work Phone: [phone] CO2 [Moles/Vol] 18 mmol/L below low threshold 21 - 32 [employer] Work Phone: [phone] Creatinine [Mass/Vol] 0.44 mg/dL below low threshold See Below [employer] Work Phone: Comment on above: Reference Range: 0.5 0 - 1.05 Glucose [Mass/Vol] 117 mg/dL above high threshold 74 - 99 [employer] Work Phone: Potassium [Moles/Vol] 3.5 mmol/L 3.5 - 5.3 [facility] Work Phone: Protein [Mass/Vol] 6.0 g/dL below low threshold 6.4 - 8.2 [employer] Work Phone: Sodium [Moles/Vol] 135 mmol/L below low threshold 136 - 145 [employer] Work Phone: Urea nitrogen [Mass/Vol] 7 mg/dL 6 - 23 [employer] Work Phone: Laboratory - Hematology and Cell countson 09-26-2021 Erythrocyte distribution width (RBC) [Ratio] 14.2 % See Below [employer] Work Phone: Comment on above: Reference Range: 11. 5 - 14.5 Hematocrit (Bld) [Volume fraction] 33.5 % below low threshold See Below [employer] Work Phone: Comment on above: Reference Range: 36. 0 - 46.0 Hemoglobin (Bld) [Mass/Vol] 11.1 g/dL below low threshold See Below [employer] Work Phone: Comment on above: Reference Range: 12. 0 - 16.0 MCHC (RBC) [Mass/Vol] 33.2 g/dL See Below [facility] Work Phone: Comment on above: Reference Range: 32. 0 - 36.0 MCV (RBC) [Entitic vol] 92 fL 80 - 100 [employer] Work Phone: [phone] Platelets (Bld) [#/Vol] 233 10*3/uL 150 - 450 [employer] Work Phone: [phone] RBC (Bld) [#/Vol] 3.66 {x10E12/L} below low threshold See Below [employer] Work Phone: Comment on above: Reference Range: 4.0 0 - 5.20 WBC (Bld) [#/Vol] 12.0 10*3/uL above high threshold 4.4 - 11.3 [employer] Work Phone: No Panel Informationon 09-26 >90 >90 [employer] Work Phone: Comment on above: CALCULATIONS OF YOLANDA MATED GFR ARE PERFORMED USING THE 2020 CKD-EPI STUDY REFIT EQUATION WITHOUT THE RACE VARIABLE FOR THE IDMS-TRACEABLE CREATININE METHODS.https://jasn.asnjournals.org/content/early/A SN.6554759762 Total Protein, Urine Spoton 09-26-2021 Creatinine (U) [Mass/Vol] 86.0 mg/dL See Below [employer] Work Phone: Comment on above: Reference Range: 20. 0 - 320.0 Protein (U) [Mass/Vol] 19 mg/dL 5 - 24 [employer] Work Phone: Protein/Creatinine (U) [Ratio] 0.22 {mg/mg_Creat} above high threshold See Below [place] [address] [place] Work Phone: Comment on above: Reference Range: 0.0 0 - 0.17 Uric Acid, Serumon 2 Urate [Mass/Vol] 4.1 mg/dL 2.3 - 6.7 [place] [address] [place] Work Phone: Comment on above: Venipuncture immedia tely after or during the administration of Metamizole may lead to falsely low results. Testing should be performed immediately prior to Metamizole dosing. GROUP B STREP SCREENon 09-17 GROUP B STREP SCREEN PATIENT: ARSALAN ESCOBAR IN L LOCATION: [place] BILL#: [id number] : 89 AGE: SEX: F ORDERED BY: ANDRY RUEDA SOURCE: VAGINAL COLLECTED: 09/17/21 11:29 ANTIBIOTICS AT LINDA.: RECEIVED : 09/17/21 22:38 SITE: VAGINAL R E S U L T S GROUP B STREP SCREEN FINAL 09/19/21 12:47 NEGATIVE FOR GROUP B BETA STREP. Normal [facility] Comment on above: Performed By: #### G BSCR #### [facility] [address] [place] [address] Laboratory - Microbiology an d Antimicrobial susceptibilityon 09-17-2021 Bacteria identified Aer cx Nom (Genital specimen) [address] Work Phone: No Panel Informationon 09-[address] Work Phone: IO Wet Mounton 08-27-2021 IO Wet Mount Negative [place] [address] [place] Work Phone: No Panel Informationon 08-[address] Work Phone: Glucose, 1 Hour Screen, Preg nancyon 07-14-2021 Glucose 1 Hr post 50 g glucose PO [Mass/Vol] 132 mg/dL <135 [employer] Work Phone: Comment on above: Diagnostic value wit h glucose loading dose of 50 g. Reference values from [employer]. Diabetes Care 2015;38(Suppl.1):S8-S16 Laboratory - Blood bankon Blood group antibody screen Ql Canceled [employer] Work Phone: Blood group antibody screen Ql Negative [employer] Work Phone: Laboratory - Hematology and Cell countson 07-14-2021 Erythrocyte distribution width (RBC) [Ratio] 13.9 % See Below [employer] Work Phone: Comment on above: Reference Range: 11. 5 - 14.5 Hematocrit (Bld) [Volume fraction] 35.7 % below low threshold See Below [employer] Work Phone: Comment on above: Reference Range: 36. 0 - 46.0 Hemoglobin (Bld) [Mass/Vol] 12.3 g/dL See Below [employer] Work Phone: Comment on above: Reference Range: 12. 0 - 16.0 MCHC (RBC) [Mass/Vol] 34.5 g/dL See Below [facility] Work Phone: Comment on above: Reference Range: 32. 0 - 36.0 MCV (RBC) [Entitic vol] 93 fL 80 - 100 [employer] Work Phone: [phone] Platelets (Bld) [#/Vol] 260 10*3/uL 150 - 450 [employer] Work Phone: RBC (Bld) [#/Vol] 3.83 {x10E12/L} below low threshold See Below [employer] Work Phone: Comment on above: Reference Range: 4.0 0 - 5.20 WBC (Bld) [#/Vol] 10.7 10*3/uL 4.4 - 11.3 [facility] Work Phone: No Panel Informationon 07-14 NONE [facility] [address] [place] Work Phone: Rhogamon 07-14-2021 Rhogam ORDER RECD [facility] [address] [place] Work Phone: Rhogam Canceled [facility] [address] [employer] Work Phone: RAPID TOX SCREEN WITH RELEX TO DRUGMCon 06-23-2021 Amphetamine (U) [Mass/Vol] Negative NEGATIVE NG/ML [facility] Comment on above: <500 ng/ml CUTOFF Barbiturates Screen Ql (U) Negative NEGATIVE NG/ML [facility] Comment on above: <200 ng/ml CUTOFF Benzodiazepines Ql (U) Negative NEGAT JESUS NG/ML [facility] Comment on above: <150 ng/ml CUTOFF Benzoylecgonine Ql (U) Negative NEGAT JESUS NG/ML [facility] Comment on above: <150 ng/ml CUTOFF Buprenorphine Ql (U) Negative NEGATIV E NG/ML [facility] Comment on above: <10 ng/ml CUTOFF Testing performed at [place], [place] [address] Cannabinoids Screen Ql (U) Negative NEGATIVE NG/ML [facility] Comment on above: <50 ng/ml CUTOFF Methadone Screen Ql (U) Negative NEGATIVE NG/ML [facility] Comment on above: <200 ng/ml CUTOFF Methamphetamine (U) [Mass/Vol] Negative NEGATIVE NG/ML [facility] Comment on above: <500 ng/ml CUTOFF Opiates Screen Ql (U) Negative NEGATI VE NG/ML [facility] Comment on above: <100 ng/ml CUTOFF oxyCODONE Ql (U) Negative NEGATIVE NG/ML [facility] Comment on above: <100 ng/ml CUTOFF Phencyclidine Screen method >25 ng/mL Ql (U) Negative NEGATIVE NG/ML [facility] Comment on above: <25 ng/ml CUTOFF Propoxyphene+Norpropox yphene Screen Ql (U) Negative NEGATIVE NG/ML [facility] Comment on above: <300 ng/ml CUTOFF Tricyclic antidepressants Screen Ql (U) Negative NEGATIVE NG/ML [facility] Comment on above: <300 ng/ml CUTOFF [facility] URINALYSIS, MACROon 06-23-19 22 Bilirubin Ql (U) Negative NEGATIVE [facility] Clarity (U) CLEAR CLEAR [facility] Color (U) YELLOW YELLOW [facility] Glucose Test strip (U) [Mass/Vol] Negative NEGATIVE mg/dl [facility] Hemoglobin Ql (U) Negative NEGATIVE [facility] Ketones (U) [Mass/Vol] Negative NEGAT JESUS mg/dl [facility] Leukocyte esterase Test strip Ql (U) Negative NEGATIVE [facility] Comment on above: Testing performed at [place], [place] [address] Nitrite Ql (U) Negative NEGATIVE [facility] pH (U) 6.0 [pH] [facility] Protein Ql (U) Negative NEGATIVE mg/dl [facility] Specific gravity (U) [Rel density] 1.025 [facility] Urobilinogen (U) [Mass/Vol] 0.2 mg/dL [facility] HOLTER MONITOR- EXTENDED (3 TO 7 [...] AV block No significant bradycardia episodes Normal [facility] Ambulatory Ferritinon 05-17-2021 Ferritin [Mass/Vol] 18 ng/mL 13 - 150 ng/mL [facility] Iron and Iron binding capaci ty panelon 05-17-2021 Iron [Mass/Vol] 123 ug/dL [facility] Iron binding capacity [Mass/Vol] 368 [facility] Iron saturation [Mass fraction] 33 % 20 - 50 % [facility] No Panel Informationon 05-17 Interpretation and review of laboratory results Normal [facility] CTPCRon 02-14-2021 C. trachomatis Interp Normal See CT Interp N [facility] ([place]) Comment on above: Result Comment: C. t rachomatis DNA not detected. Specimen is presumptive negative for C. trachomatis. A negative result does not preclude C. trachomatis infection because results depend on adequate specimen collection, absence of inhibitors, and sufficient DNA to be detected. See CT Interp N Performed By: #### C TPCR, NGPCR1 #### [address] [address] C.trachomatis PCR Negative Normal Negative [facility] ([place]) Comment on above: Result Comment: Dias sport tube received with two swabs. Review collection procedure. Inappropriate collection may cause aberrant results. Transport tube received with two swabs. Review collection procedure. Inappropriate collection may cause aberrant results. Molecular (PCR) assay performed on the Kelvin Irma 4800 system. Performed By: #### C TPCR, NGPCR1 #### [address] [address] Chlam Source Vaginal Normal [facility] ([place]) Comment on above: Performed By: #### C TPCR, NGPCR1 #### [address] [address] [id number] 02-14-2021 GC PCR Source Vaginal Normal [facility] ([place]) Comment on above: Performed By: #### U A, PREGU #### [address] [address] N. gonorrhoeae (PCR) Negative Normal Negative [facility] [place] Comment on above: Result Comment: Dias sport tube received with two swabs. Review collection procedure. Inappropriate collection may cause aberrant results. Transport tube received with two swabs. Review collection procedure. Inappropriate collection may cause aberrant results. Molecular (PCR) assay performed on the Kel[employer] Irma 4800 System. Performed By: #### U A, PREGU #### [address] [address] N. gonorrhoeae Interp Normal See NG Interp N [facility] ([place]) Comment on above: Result Comment: N. g onorrhoeae DNA not detected. Specimen is presumptive negative for N. gonorrhoeae. A negative result does not preclude Neisseria gonorrhoeae infection because results depend on adequate specimen collection, absence of inhibitors, and sufficient DNA to be detected. See NG Interp N Performed By: #### U A, PREGU #### [address] [address] .Auto Diffon 02-12-2021 Basophil, Absolute 0.00 10 3/mcL Normal 0.00-0.19 [facility] ([place]) Comment on above: Performed By: #### B MP, GFR #### [place] [address] #### CBC, ADIFF, ANEU, HCGQ, ABOG #### [address] [address] Basophils/100 WBC (Bld) 0.4 % Normal 0.0-2.5 [facility] ([place]) Comment on above: Performed By: #### B MP, GFR #### [place] [address] #### CBC, ADIFF, ANEU, HCGQ, ABOG #### [address] [address] Eosinophil, Absolute 0.00 10 3/mcL Normal 0.00-0.40 [facility] ([place]) Comment on above: Performed By: #### B MP, GFR #### [place] [address] #### CBC, ADIFF, ANEU, HCGQ, ABOG #### [address] [address] Eosinophils/100 WBC (Bld) 0.1 % Normal 0.0-7.0 [facility] ([place]) Comment on above: Performed By: #### B MP, GFR #### [place] [address] #### CBC, ADIFF, ANEU, HCGQ, ABOG #### [address] [address] Lymphocyte, Absolute 1.40 10 3/mcL Normal 0.77-3.85 [facility] ([place]) Comment on above: Performed By: #### B MP, GFR #### [place] [address] #### CBC, ADIFF, ANEU, HCGQ, ABOG #### [address] [address] Lymphocytes/100 WBC (Bld) 29.2 % Normal 10.0-50.0 [facility] ([place]) Comment on above: Performed By: #### B MP, GFR #### [place] [address] #### CBC, ADIFF, ANEU, HCGQ, ABOG #### [address] [address] Monocyte, Absolute 0.30 10 3/mcL Normal 0.15-1.00 [facility] ([place]) Comment on above: Performed By: #### B MP, GFR #### [place] [address] #### CBC, ADIFF, ANEU, HCGQ, ABOG #### [address] [address] Monocytes/100 WBC (Bld) 7.2 % Normal 1.7-13.0 [facility] ([place]) Comment on above: Performed By: #### B MP, GFR #### [place] [address] #### CBC, ADIFF, ANEU, HCGQ, ABOG #### [address] [address] Neutrophils/100 WBC (Bld) 63.1 % Normal 37.0-80.0 [facility] ([place]) Comment on above: Performed By: #### B MP, GFR #### [place] [address] #### CBC, ADIFF, ANEU, HCGQ, ABOG #### [address] [address] .GFRon 02-12-2021 GFR 96 ml/min/1.73sqm Normal [facility] ([place]) Comment on above: Result Comment: GFR Population [...] Performed By: #### B MP, GFR #### [address] [address] #### CBC, ADIFF, ANEU, HCGQ, ABOG #### [address] [address] GFR Non- 80 ml/min/1.73sqm Normal [facility] ([place]) Comment on above: Result Comment: GFR Population [...] Performed By: #### B MP, GFR #### [place] [address] #### CBC, ADIFF, ANEU, HCGQ, ABOG #### [address] [address] .NEUABSon 02-12-2021 Neutrophil, Absolute 3.00 10 3/mcL Normal 2.85-6.16 A formerly [facility] ([place]) Comment on above: Performed By: #### B MP, GFR #### [place] [address] #### CBC, ADIFF, ANEU, HCGQ, ABOG #### [address] [address] BMPon 02-12-2021 BUN/Creatinine Ratio 14 ratio Normal 7-27 [facility] [place] Comment on above: Performed By: #### B MP, GFR #### [place] [address] #### CBC, ADIFF, ANEU, HCGQ, ABOG #### [address] [address] Calcium [Mass/Vol] 8.4 mg/dL Normal 8.4-10.2 [facility] ([place]) Comment on above: Performed By: #### B MP, GFR #### [place] [address] #### CBC, ADIFF, ANEU, HCGQ, ABOG #### [address] [address] Chloride [Moles/Vol] 104 mmol/L Normal 98-107 [facility] [place] Comment on above: Performed By: #### B MP, GFR #### [place] [address] #### CBC, ADIFF, ANEU, HCGQ, ABOG #### [address] [address] CO2 [Moles/Vol] 26 mmol/L Normal 22-29 [facility] ([place]) Comment on above: Performed By: #### B MP, GFR #### [place] [address] #### CBC, ADIFF, ANEU, HCGQ, ABOG #### [address] [address] Creatinine [Mass/Vol] 0.84 mg/dL Normal 0.55-1.02 [facility] ([place]) Comment on above: Performed By: #### B MP, GFR #### [place] [address] #### CBC, ADIFF, ANEU, HCGQ, ABOG #### [address] [address] Electrolyte Balance 11.0 mEq/L Normal [facility] ([place]) Comment on above: Performed By: #### B MP, GFR #### [address] [address] #### CBC, ADIFF, ANEU, HCGQ, ABOG #### [address] [address] Glucose [Mass/Vol] 151 mg/dL High 70-105 [facility] ([place]) Comment on above: Performed By: #### B MP, GFR #### [place] [address] #### CBC, ADIFF, ANEU, HCGQ, ABOG #### [address] [address] Potassium [Moles/Vol] 3.7 mmol/L Normal 3.5-5.1 [facility] ([place]) Comment on above: Performed By: #### B MP, GFR #### [place] [address] #### CBC, ADIFF, ANEU, HCGQ, ABOG #### [address] [address] Sodium [Moles/Vol] 141 mmol/L Normal 136-145 [facility] ([place]) Comment on above: Performed By: #### B MP, GFR #### [place] [address] #### CBC, ADIFF, ANEU, HCGQ, ABOG #### [address] [address] Urea nitrogen [Mass/Vol] 12 mg/dL Normal 7-18 [facility] ([place]) Comment on above: Performed By: #### B MP, GFR #### [place] [address] #### CBC, ADIFF, ANEU, HCGQ, ABOG #### [address] [address] CBCon 02-12-2021 Erythrocyte distribution width (RBC) [Ratio] 13.1 % Normal 11.5-14.5 [facility] ([place]) Comment on above: Performed By: #### B MP, GFR #### [place] [address] #### CBC, ADIFF, ANEU, HCGQ, ABOG #### [address] [address] Hematocrit (Bld) [Volume fraction] 42.0 % Normal 37.0-47.0 [facility] ([place]) Comment on above: Performed By: #### B MP, GFR #### [place] [address] #### CBC, ADIFF, ANEU, HCGQ, ABOG #### [place] [address] Hgb 14.3 G/dL Normal 12.0-16.0 [facility] ([place]) Comment on above: Performed By: #### B MP, GFR #### [place] [address] #### CBC, ADIFF, ANEU, HCGQ, ABOG #### [address] [address] MCH (RBC) [Entitic mass] 31.5 pg High 27.0-31.2 [facility] ([place]) Comment on above: Performed By: #### B MP, GFR #### [place] [address] #### CBC, ADIFF, ANEU, HCGQ, ABOG #### [place] [address] MCHC 34.1 G/dL Normal 33.0-37.0 [facility] ([place]) Comment on above: Performed By: #### B MP, GFR #### [place] [address] #### CBC, ADIFF, ANEU, HCGQ, ABOG #### [address] [address] MCV (RBC) [Entitic vol] 92.3 fL Normal 80.0-94.0 [facility] ([place]) Comment on above: Performed By: #### B MP, GFR #### [place] [address] #### CBC, ADIFF, ANEU, HCGQ, ABOG #### [address] [address] Platelet 199 10 3/mcL Normal 130-400 [facility] ([place]) Comment on above: Performed By: #### B MP, GFR #### [place] [address] #### CBC, ADIFF, ANEU, HCGQ, ABOG #### [address] [address] Platelet mean volume (Bld) [Entitic vol] 8.6 fL Normal 7.4-10.4 [facility] ([place]) Comment on above: Performed By: #### B MP, GFR #### [place] [address] #### CBC, ADIFF, ANEU, HCGQ, ABOG #### [address] [address] RBC 4.55 10 6/mcL Normal 4.20-5.40 [facility] ([place]) Comment on above: Performed By: #### B MP, GFR #### [place] [address] #### CBC, ADIFF, ANEU, HCGQ, ABOG #### [address] [address] WBC 4.80 10 3/mcL Normal 4.60-10.80 [facility] ([place]) Comment on above: Performed By: #### B MP, GFR #### [place] [address] #### CBC, ADIFF, ANEU, HCGQ, ABOG #### [address] [address] Gel ABOon 02-12-2021 ABO/Rh Interp Negative Invalid Interpretation Code [facility] ([place]) Comment on above: Performed By: #### B MP, GFR #### [place] [address] #### CBC, ADIFF, ANEU, HCGQ, ABOG #### [address] [address] HCGQon 02-12-2021 hCG, quantitative 5108.5 mIU/mL Normal [facility] [place] Comment on above: Result Comment: HCG Quantitative [...] Performed By: #### B MP, GFR #### [place] [address] #### CBC, ADIFF, ANEU, HCGQ, ABOG #### [address] [address] PREGUon 02-12-2021 HCG ( test) Ql (U) Positive Normal [facility] ([place]) Comment on above: Performed By: #### U A, PREGU #### [address] [address] test (u) int Detected Invalid Interpretation Code [facility] ([place]) Comment on above: Performed By: #### U A, PREGU #### [address] [address] UAon 02-12-2021 Color (U) Yellow Normal [facility] ([place]) Comment on above: Performed By: #### U A, PREGU #### [address] [address] Glucose (U) [Mass/Vol] Negative Normal Negative [facility] [place] Comment on above: Performed By: #### U A, PREGU #### [address] [address] Ketones Ql (U) 80 mg/dL Abnormal Negative [facility] ([place]) Comment on above: Performed By: #### U A, PREGU #### [address] [address] UA Appear Clear Normal Clear [facility] ([place]) Comment on above: Performed By: #### U A, PREGU #### [address] [address] UA Bili Small Abnormal Negative [facility] ([place]) Comment on above: Performed By: #### U A, PREGU #### [address] [address] UA Blood Negative Normal Negative [facility] ([place]) Comment on above: Performed By: #### U A, PREGU #### [address] [address] UA Leuk Est Negative Normal Negative [facility] ([place]) Comment on above: Performed By: #### U A, PREGU #### [address] [address] UA Nitrite Negative Normal Negative [facility] ([place]) Comment on above: Performed By: #### U A, PREGU #### [address] [address] UA pH 6.0 Normal 5.0 - 8.0 [facility] ([place]) Comment on above: Performed By: #### U A, PREGU #### [address] [address] UA Protein Trace Normal Negative [facility] ([place]) Comment on above: Performed By: #### U A, PREGU #### [place] [address] UA Spec Grav >=1.030 Abnormal 1.015-1.025 [facility] ([place]) Comment on above: Performed By: #### U A, PREGU #### [address] [address] UA Specimen Type Clean Catch Normal [facility] ([place]) Comment on above: Performed By: #### U A, PREGU #### [address] [address] UA Urobilinogen 0.2 E.U./dL Normal 0.2-1.0 [facility] ([place]) Comment on above: Performed By: #### U A, PREGU #### [address] [address] CBC and Differentialon 10-17 Abs Baso 0.04 k/uL Normal <0.11 [facility] Comment on above: Performed By: #### C BCDIF, BETAMM, CMP, LIPA #### [facility] [address] [place] [address] Abs Leon 0.64 k/uL Normal <0.87 [facility] Comment on above: Performed By: #### C BCDIF, BETAMM, CMP, LIPA #### [facility] [address] [place] [address] Abs Neut 4.48 k/uL Normal 1.45-7.50 [facility] Comment on above: Performed By: #### C BCDIF, BETAMM, CMP, LIPA #### [facility] [address] [place], [place] [phone] Basophils/100 WBC (Bld) 0.5 % Normal [facility] Comment on above: Performed By: #### C BCDIF, BETAMM, CMP, LIPA #### [facility] [address] [place] [address] Eosinophils #/vol (Bld) 0.26 10*3/uL Normal <0.46 [facility] Comment on above: Performed By: #### C BCDIF, BETAMM, CMP, LIPA #### [facility] [address] [place], [place] [phone] Eosinophils/100 WBC (Bld) 3.4 % Normal [facility] Comment on above: Performed By: #### C BCDIF, BETAMM, CMP, LIPA #### [facility] [address] [place] [address] Erythrocyte distribution width Ratio (RBC) 13.1 % Normal 11.5-15.0 [facility] Comment on above: Performed By: #### C BCDIF, BETAMM, CMP, LIPA #### [facility] [address] [place] [address] Hematocrit Volume Fraction (Bld) 44.4 % Normal 36.0-46.0 [facility] Comment on above: Performed By: #### C BCDIF, BETAMM, CMP, LIPA #### [facility] [address] [place] [address] Hemoglobin mass conc (Bld) 14.8 g/dL Normal 11.5-15.5 [facility] Comment on above: Performed By: #### C BCDIF, BETAMM, CMP, LIPA #### [facility] [address] [place] [address] Lymphocytes #/vol (Bld) 2.28 10*3/uL Normal 1.00-4.00 [facility] Comment on above: Performed By: #### C BCDIF, BETAMM, CMP, LIPA #### [facility] [address] [place] [address] Lymphocytes/100 WBC (Bld) 29.6 % Normal [facility] Comment on above: Performed By: #### C BCDIF, BETAMM, CMP, LIPA #### [facility] [address] [place] [address] MCH Entitic mass (RBC) 30.4 pG Normal 26.0-34.0 [facility] Comment on above: Performed By: #### C BCDIF, BETAMM, CMP, LIPA #### [facility] [address] [place] [address] MCHC mass conc (RBC) 33.3 g/dL Normal 30.5-36.0 [facility] Comment on above: Performed By: #### C BCDIF, BETAMM, CMP, LIPA #### [facility] [address] [phone] MCV Entitic volume (RBC) 91.2 fL Normal 80.0-100.0 [facility] Comment on above: Performed By: #### C BCDIF, BETAMM, CMP, LIPA #### [facility] [address] [place] [address] Monocytes/100 WBC (Bld) 8.3 % Normal [facility] Comment on above: Performed By: #### C BCDIF, BETAMM, CMP, LIPA #### [facility] [address] [place] [address] Neutrophils/100 WBC (Bld) 58.2 % Normal [facility] Comment on above: Performed By: #### C BCDIF, BETAMM, CMP, LIPA #### [facility] [address] [place] [address] Platelet mean volume Entitic volume (Bld) 10.7 fL Normal 9.0-12.7 [facility] Comment on above: Performed By: #### C BCDIF, BETAMM, CMP, LIPA #### [facility] [address] [place] [address] Platelets #/vol (Bld) 283 10*3/uL Normal 150-400 [facility] Comment on above: Performed By: #### C BCDIF, BETAMM, CMP, LIPA #### [facility] [address] [place] [address] RBC #/vol (Bld) 4.87 10*6/uL Normal 3.90-5.20 [facility] Comment on above: Performed By: #### C BCDIF, BETAMM, CMP, LIPA #### [facility] [address] [place] [address] WBC #/vol (Bld) 7.70 10*3/uL Normal 3.70-11.00 [facility] Comment on above: Performed By: #### C BCDIF, BETAMM, CMP, LIPA #### [facility] [address] [place] [address] CT ABD/PEL W IVCONon 05-15-[address] ABD/PEL W IVCON * * *Final Report* * * DATE OF EXAM: Oct 17 2018 6:20PM [facility] [place] 0530 - CT ABD/PEL W IVCON [...] or pelvis. 2. Nonobstructing renal calculi bilaterally. Accounting Clerk: PSCAdria Transcribe Date/Time: Oct 17 2018 6:22P Dictated by : AG ALLAN MD This examination was interpreted and the report reviewed and electronically signed by: AG ALLAN MD on Oct 17 2018 6:35PM EST [id number] Normal [facility] Comp Metabolic Panelon 10-17 Albumin mass conc 4.0 g/dL Normal 3.9-4.9 [facility] Comment on above: Performed By: #### C BCDIF, BETAMM, CMP, LIPA #### [facility] [address] ALP enzyme act/vol 66 U/L Normal 34-123 [facility] Comment on above: Performed By: #### C BCDIF, BETAMM, CMP, LIPA #### [facility] [address] [place] [address] ALT enzyme act/vol 11 U/L Normal 7-38 [facility] Comment on above: Performed By: #### C BCDIF, BETAMM, CMP, LIPA #### [facility] [address] [place] [address] Anion gap molar conc 10 mmol/L Normal 9-18 [facility] Comment on above: Performed By: #### C BCDIF, BETAMM, CMP, LIPA #### [facility] [address] [place] [address] AST enzyme act/vol 14 U/L Normal 13-35 [facility] Comment on above: Performed By: #### C BCDIF, BETAMM, CMP, LIPA #### [facility] [address] [place] [address] Bilirubin mass conc 0.5 mg/dL Normal 0.2-1.3 [facility] Comment on above: Performed By: #### C BCDIF, BETAMM, CMP, LIPA #### [facility] [address] [place] [address] Calcium mass conc 8.8 mg/dL Normal 8.5-10.2 [facility] Comment on above: Performed By: #### C BCDIF, BETAMM, CMP, LIPA #### [facility] [address] Chloride molar conc 104 mmol/L Normal 97-105 [facility] Comment on above: Performed By: #### C BCDIF, BETAMM, CMP, LIPA #### [facility] [address] [place] [address] CO2 molar conc 22 mmol/L Normal 22-30 [facility] Comment on above: Performed By: #### C BCDIF, BETAMM, CMP, LIPA #### [facility] [address] [place] [address] Creatinine mass conc 0.83 mg/dL Normal 0.58-0.96 [facility] Comment on above: Performed By: #### C BCDIF, BETAMM, CMP, LIPA #### [facility] [address] [facility] [phone] eGFR- Amer. >60 Normal [facility] Comment on above: Performed By: #### C BCDIF, BETAMM, CMP, LIPA #### [facility] [address] [facility] [phone] GFR/1.73 sq M predicted among non-blacks MDRD vol rate/area (S/P/Bld) mL/min/{1.73_m2} Normal [facility] Comment on above: Result Comment: eGFR (Estimated [...] #### C BCDIF, BETAMM, CMP, LIPA #### [facility] [address] [place] [address] Glucose mass conc 99 mg/dL Normal 74-99 [facility] Comment on above: Result Comment: The [place] [employer] (ADA) provides guidance for cutoff [...] Standards of Medical Care in Diabetes 2016, [place] [employer]. Diabetes Care. 2016.39(Suppl 1). Performed By: #### C BCDIF, BETAMM, CMP, LIPA #### [facility] [address] [facility] [phone] Potassium molar conc 3.9 mmol/L Normal 3.7-5.1 [facility] Comment on above: Performed By: #### C BCDIF, BETAMM, CMP, LIPA #### [facility] [address] [facility] [phone] Protein mass conc 7.5 g/dL Normal 6.3-8.0 [facility] Comment on above: Performed By: #### C BCDIF, BETAMM, CMP, LIPA #### [facility] [address] [facility] [phone] Sodium molar conc 136 mmol/L Normal 136-144 [facility] Comment on above: Performed By: #### C BCDIF, BETAMM, CMP, LIPA #### [facility] [address] [facility] [phone] Urea nitrogen mass conc 10 mg/dL Normal 7-21 [facility] Comment on above: Performed By: #### C BCDIF, BETAMM, CMP, LIPA #### [facility] [address] [facility] [phone] ED NOTEon 10-17-2018 ED NOTE HNO ID: [id number] Author: Elba Nguyen RN Service: ? Author Type: Registered Nurse Type: ED Notes Filed: 10/17/2018 7:10 PM Note Text: Pt was ambulatory with her discharge [facility] ED NOTE HNO ID: [id number] Author: Elba Nguyen RN Service: ? Author Type: Registered Nurse Type: ED Notes Filed: 10/17/2018 7:08 PM Note Text: Pt was discharged home and will follow up with her family medical dr as per needed [facility] ED NOTE HNO ID: [id number] Author: Elba Nguyen RN Service: ? Author Type: Registered Nurse Type: ED Notes Filed: 10/17/2018 7:00 PM Note Text: viktor harris has rounded [facility] ED NOTE HNO ID: [id number] Author: Elba Nguyen RN Service: ? Author Type: Registered Nurse Type: ED Notes Filed: 10/17/2018 5:56 PM Note Text: Pt report was received Pt is in a position of comfort [facility] ED NOTE HNO ID: [id number] Author: Charleen Amezcua) MICHAEL Clifton Service: ? Author Type: Registered [...] weight loss over the last two months [facility] ED PROV NOTEon 10-17-2018 Protein mass conc HNO ID: [id number] Author: Viktor Smith ([place]) Service: Emergency Medicine Author Type: Physician Caustic Room Attendant Type: ED Provider Notes Filed: 10/17/2018 6:56 [...] Laterality Date - COLONOSCOP W/ OR W/O [facility] SPEC 11/21/2013 Colonoscopy AND EGD - COLONOSCOP W/ OR W/O [facility] SPEC 07/20/2017 Colonoscopy - EGD W/O OR W/BRUSH/WASH 07/20/2017 EGD - EGD W/O OR W/BRUSH/WASH 08/08/2018 EGD - LAPAROSCOPIC CHOLEYCYSTECTOMY 09/14/2009 - 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 2. Nonobstructing renal calculi bilaterally. 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 This note was partially generated using [employer] voice recognition system, and there may be some incorrect words, spellings, and punctuation that were not noted in checking the note before saving SIGNATURE: ADIA Workman ([place]) 10/17/18 1856 Normal [facility] Lipaseon 10-17-2018 Lipase enzyme act/vol 35 U/L Normal 16-61 [facility] Comment on above: Performed By: #### C BCDIF, BETAMM, CMP, LIPA ####[facility] [id number] [phone] Serum Beta HCG [facility]/// ED/SL/LOon 10-17-2018 HCG.beta subunit Qn Negative Normal Negative [facility] Comment on above: Result Comment: Fals e positives and false negatives are rare but have been described. Clinical correlation of the findings is recommended. Performed By: #### C BCDIF, BETAMM, CMP, LIPA #### [facility] [address] [facility] [phone] Urinalysison 10-17-2018 Bilirubin, Urine Negative Normal Negative [facility] Comment on above: Performed By: #### U A ####[facility] [id number] [place] [address] Clarity Nom (U) Clear Normal Clear [facility] Comment on above: Performed By: #### U A ####[facility] [address] [place] [address] Color Nom (U) Yellow Normal Yellow [facility] Comment on above: Performed By: #### U A ####[facility] [id number] [place] [address] Glucose Ql (U) Negative Normal Negative [facility] Comment on above: Performed By: #### U A ####[facility] [address] [place] [address] Hemoglobin/Blood,Ur Negative Normal Negative [facility] Comment on above: Performed By: #### U A ####[facility] [address] [place] [address] Ketones Ql (U) Negative Normal Negative [facility] Comment on above: Performed By: #### U A ####[facility] [address] [place] [address] Leukest Negative Normal Negative [facility] Comment on above: Performed By: #### U A ####[facility] [address] [place] [address] Nitrite Ql (U) Negative Normal Negative [facility] Comment on above: Performed By: #### U A ####[place] [address] pH (Bld) 6.5 Normal 5.0-8.0 [facility] Comment on above: Performed By: #### U A ####[facility] [address] [place] [address] Protein mass conc (U) Negative Normal Negative [facility] Comment on above: Performed By: #### U A ####[facility] [id number] [place] [address] Specific [place], Ur 1.015 Normal 1.001-1.029 [facility] Comment on above: Performed By: #### U A ####[facility] [address] [place] [address] Urobilinogen Qn (U) 0.2 Normal 0.2-1.0 [facility] Comment on above: Performed By: #### U A ####[facility] [address] [phone] Basic Metabolic Panelon 09-03 Calcium mass conc 9.5 mg/dL Normal 8.4-10.4 [facility] Comment on above: Performed By: #### H EMDF, BMP3 #### [facility] [address] [place] [address] Glucose mass conc 92 mg/dL Normal 70-100 [facility] Comment on above: Performed By: #### H EMDF, BMP3 #### [facility] [address] [place] [address] Urea nitrogen mass conc 13 mg/dL Normal 7-20 [facility] Comment on above: Performed By: #### H EMDF, BMP3 #### [facility] [address] [place] [address] Anion gap molar conc 8 Normal [facility] Comment on above: Performed By: #### H EMDF, BMP3 #### [facility] [address] [place] [address] CO2 molar conc 25 mmol/L Normal 22-30 [facility] Comment on above: Performed By: #### H EMDF, BMP3 #### [facility] [address] [place] [address] Creatinine mass conc 0.74 mg/dL Normal 0.52-1.25 [facility] Comment on above: Performed By: #### H EMDF, BMP3 #### [facility] [address] [place] [address] GFR/1.73 sq M predicted among blacks MDRD vol rate/area (S/P/Bld) mL/min/{1.73_m2} Normal >60 [facility] Comment on above: Performed By: #### H EMDF, BMP3 #### [facility] [address] [place] [address] GFR/1.73 sq M predicted among non-blacks MDRD vol rate/area (S/P/Bld) mL/min/{1.73_m2} Normal >60 [facility] Comment on above: Result Comment: Sour ce- MDRD equation with creatinine calibration to IDMS(NKDEP) eGFR not recommended for drug dose adjustment Performed By: #### H EMDF, BMP3 #### [facility] [address] [place] [address] Potassium molar conc 3.6 mmol/L Normal 3.5-5.1 [facility] Comment on above: Performed By: #### H EMDF, BMP3 #### [facility] [address] [place] [address] Chloride molar conc 106 mmol/L Normal 98-107 [facility] Comment on above: Performed By: #### H EMDF, BMP3 #### [facility] [address] [place] [address] Sodium molar conc 139 mmol/L Normal 135-145 [facility] Comment on above: Performed By: #### H EMDF, BMP3 #### [facility] [address] [place] [address] HCG,Urine Qualon 09-18-2018 HCG.beta subunit ( test) Ql (U) Negative Normal Negative [facility] Comment on above: Result Comment: Preg fallon is the most common reason for HCG in urine, although choriocarcinoma, hydatidiform mole, and certain nontropho- blastic malignancies also result in detectable urinary HCG levels. Sensitivity = 20mIU/mL. Performed By: #### H CGUR, UAMAC, UAMIC #### [facility] [address] [place] [address] Hemogram w/ Autodiffon 09-18 Abs Baso Cnt 0.0 10*3/uL Normal 0.0-0.2 [facility] Comment on above: Performed By: #### H EMDF, BMP3 #### [facility] [address] [place] [address] Abs Neutrophile Cnt 4.9 10*3/uL Normal 1.8-7.0 [facility] Comment on above: Performed By: #### H EMDF, BMP3 #### [facility] [address] [place] [address] Basophils/100 WBC (Bld) 0.6 % Normal 0.0-2.0 [facility] Comment on above: Performed By: #### H EMDF, BMP3 #### [facility] [facility] [address] [place] [address] Eosinophils #/vol (Bld) 0.1 10*3/uL Normal 0.0-0.5 [facility] Comment on above: Performed By: #### H EMDF, BMP3 #### [facility] [address] [place] [address] Eosinophils/100 WBC (Bld) 1.4 % Normal 1.0-6.0 [facility] Comment on above: Performed By: #### H EMDF, BMP3 #### [facility] [address] [place] [address] Erythrocyte distribution width Ratio (RBC) 13.5 % Normal 11.5-14.5 [facility] Comment on above: Performed By: #### H EMDF, BMP3 #### [facility] [address] [place] [address] Granulocytes/100 WBC (Bld) 63.0 % Normal 40.0-80.0 [facility] Comment on above: Performed By: #### H EMDF, BMP3 #### [facility] [address] [place] [address] Hematocrit Volume Fraction (Bld) 39.8 % Normal 35.0-47.0 [facility] Comment on above: Performed By: #### H EMDF, BMP3 #### [facility] [address] [place] [address] Hemoglobin mass conc (Bld) 13.6 g/dL Normal 11.7-16.0 [facility] Comment on above: Performed By: #### H EMDF, BMP3 #### [facility] [address] [place] [address] Lymphocytes #/vol (Bld) 2.2 10*3/uL Normal 1.0-4.3 [facility] Comment on above: Performed By: #### H EMDF, BMP3 #### [facility] [address] [place] [address] Lymphocytes/100 WBC (Bld) 27.6 % Normal 20.0-40.0 [facility] Comment on above: Performed By: #### H EMDF, BMP3 #### [facility] [address] [place] [address] MCH Entitic mass (RBC) 30.9 pg Normal 26.0-34.0 [facility] Comment on above: Performed By: #### H EMDF, BMP3 #### [facility] [address] [place] [address] MCHC mass conc (RBC) 34.3 % Normal 32.0-36.0 [facility] Comment on above: Performed By: #### H EMDF, BMP3 #### [facility] [address] [place] [address] MCV Entitic volume (RBC) 90.0 fL Normal 79.0-98.0 [facility] Comment on above: Performed By: #### H EMDF, BMP3 #### [facility] [address] [place] [address] Monocytes #/vol (Bld) 0.6 10*3/uL Normal 0.0-0.8 [facility] Comment on above: Performed By: #### H EMDF, BMP3 #### [facility] [address] [place] [address] Monocytes/100 WBC (Bld) 7.4 % Normal 2.0-10.0 [facility] Comment on above: Performed By: #### H EMDF, BMP3 #### [facility] [address] [place] [address] Platelet mean volume Entitic volume (Bld) 8.1 fL Normal 7.4-10.4 [facility] Comment on above: Performed By: #### H EMDF, BMP3 #### [facility] [address] [place] [address] Platelets #/vol (Bld) 296 10*3/uL Normal 140-440 [facility] Comment on above: Performed By: #### H EMDF, BMP3 #### [facility] [address] [place] [address] RBC #/vol (Bld) 4.42 10*6/uL Normal 3.80-5.20 [facility] Comment on above: Performed By: #### H EMDF, BMP3 #### [facility] [address] [place] [address] WBC #/vol (Bld) 7.8 10*3/uL Normal 3.6-10.7 [facility] Comment on above: Performed By: #### H EMDF, BMP3 #### [facility] [address] [place] [address] Urinalysis,Macroon 9 Appearance Nom (U) CLEAR Normal Clear [facility] Comment on above: Performed By: #### H EMDF, CMP3, LIPA4 #### [facility] [address] [place] [address] Bilirubin,Ur Positive Normal Negative [facility] Comment on above: Performed By: #### H EMDF, CMP3, LIPA4 #### [facility] [address] [place] [address] Color Nom (U) YELLOW Normal Lt. Yellow [facility] Comment on above: Performed By: #### H EMDF, CMP3, LIPA4 #### [facility] [address] [place] [address] Glucose Ql (U) Negative Normal Negative [facility] Comment on above: Performed By: #### H EMDF, CMP3, LIPA4 #### [facility] [address] [place] [address] Ketone,Urine TRACE Normal Negative [facility] Comment on above: Performed By: #### H EMDF, CMP3, LIPA4 #### [facility] [address] [place] [address] Nitrite Ql (U) Negative Normal Negative [facility] Comment on above: Performed By: #### H EMDF, CMP3, LIPA4 #### [facility] [address] [place] [address] Occult Blood,Ur Negative Normal Negative [facility] Comment on above: Performed By: #### H EMDF, CMP3, LIPA4 #### [facility] [address] [place] [address] pH (U) 6.0 Normal 5.0-8.0 [facility] Comment on above: Performed By: #### H EMDF, CMP3, LIPA4 #### [facility] [address] [place] [address] Protein mass conc (U) TRACE Normal Negative [facility] Comment on above: Performed By: #### H EMDF, CMP3, LIPA4 #### [facility] [address] [place] [address] Specific [place],Urine 1.025 Normal 1.005-1.030 [facility] Comment on above: Performed By: #### H EMDF, CMP3, LIPA4 #### [facility] [address] [place] [address] Urobilinogen Qn (U) 1.0 mg/dL Normal 0-1 [facility] Comment on above: Performed By: #### H EMDF, CMP3, LIPA4 #### [facility] [address] [place] [address] WBC #/vol (Bld) Negative Normal Negative [facility] Comment on above: Performed By: #### H EMDF, CMP3, LIPA4 #### [facility] [address] [place] [address] Urinalysis,Microscopicon Bacteria LM.HPF #/area (Urine sed) Few (1-5) Normal Negative [facility] Comment on above: Performed By: #### H EMDF, CMP3, LIPA4 #### [facility] [address] [place] [address] Cast, Hyaline 3 - 5 Normal 0-1 [facility] Comment on above: Performed By: #### H EMDF, CMP3, LIPA4 #### [facility] [address] [place] [address] Epithelial cells LM.HPF #/area (Urine sed) 0 - 2 Normal 3-5 [facility] Comment on above: Performed By: #### H EMDF, CMP3, LIPA4 #### [facility] [address] [place] [address] Mucous Threads Moderate Normal Negative [facility] Comment on above: Performed By: #### H EMDF, CMP3, LIPA4 #### [facility] [address] [place] [address] RBC LM.HPF #/area (Urine sed) 0 - 2 Normal 0-2 [facility] Comment on above: Performed By: #### H EMDF, CMP3, LIPA4 #### [facility] [address] [place] [address] WBC LM.HPF #/area (Urine sed) 0 - 2 Normal 0-5 [facility] Comment on above: Performed By: #### H EMDF, CMP3, LIPA4 #### [facility] [address] [place] [address] BMPon 09-01-2018 Anion gap molar conc 12 mmol/L 10 - 20 mmol/L [facility] Calcium mass conc 8.3 mg/dL Low 8.4 - 10.2 mg/dL [facility] Chloride molar conc 110 mmol/L High 98 - 108 mmol/L [facility] Creatinine mass conc 1.13 mg/dL High 0.4 - 1 .1 mg/dL [facility] GFR/1.73 sq M predicted among non-blacks MDRD vol rate/area (S/P/Bld) The eGFR should be used for monitoring renal function only and not for medication dosing. [facility] GFR/1.73 sq M.predicted CKD-EPI vol rate/area (S/P/Bld) 66 >=60 mL/min/1.73 m2 [facility] Glucose mass conc 78 mg/dL 65 - 99 mg/dL [facility] HCO3 molar conc 22 mmol/L 21 - 32 mmol/L [facility] Potassium molar conc 3.4 mmol/L Low 3.5 - 5 .1 mmol/L [facility] Sodium molar conc 141 mmol/L 135 - 145 mmol/L [facility] Urea nitrogen mass conc 7 mg/dL Low 8 - 25 mg/dL [facility] Urea nitrogen/Creatinine mass ratio 6.2 mg/mg Low [facility] CBC WITH AUTO DIFFERENTIALon 09-01-2018 Basophils #/vol (Bld) 0.04 10*3/uL [facility] Basophils/100 WBC (Bld) 0.3 % [facility] Eosinophils #/vol (Bld) 0.12 10*3/uL [facility] Eosinophils/100 WBC (Bld) 0.9 % [facility] Erythrocyte distribution width Entitic volume (RBC) 13.3 % 11.6 - 14.8 % [facility] Hematocrit Volume Fraction (Bld) 38.6 % 36 - 46 % [facility] Hemoglobin mass conc (Bld) 12.9 g/dL 12 - 16 g/dL [facility] Immature granulocytes #/vol (Bld) 0.05 10*3/uL [facility] Immature granulocytes/100 WBC (Bld) 0.40 % [facility] Comment on above: The IG parameter is the percentage of metamyelocytes, myelocytes, and promyelocytes. Interpretation and review of laboratory results Abnormal [facility] Lymphocytes #/vol (Bld) 2.10 10*3/uL [facility] Lymphocytes/100 WBC (Bld) 16.4 % [facility] MCH Entitic mass (RBC) 30.1 pg 26 - [address] [facility] MCHC mass conc (RBC) 33.4 g/dL 31 - 37 g/dL [facility] MCV Entitic volume (RBC) 90.2 fL 80 - 100 fL [facility] Monocytes #/vol (Bld) 1.27 10*3/uL [facility] Monocytes/100 WBC (Bld) 9.9 % [facility] Neutrophils #/vol (Bld) 9.22 10*3/uL High [facility] Neutrophils/100 WBC (Bld) 72.1 % [facility] Nucleated RBC #/vol (Bld) 0.00 10*3/uL [facility] Nucleated RBC/100 WBC Ratio (Bld) 0.0 % [facility] Platelet mean volume Entitic volume (Bld) 10.8 fL 9 - 15.5 fL [facility] Platelets #/vol (Bld) 226 10*3/uL [facility] RBC #/vol (Bld) 4.28 10*6/uL [facility] WBC #/vol (Bld) 12.80 10*3/uL High [facility] alth CT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 Vital Sign Value Performing Clinician Facility 01-03-2025 15:35-0400 Body height 167.[address] Davide Chao MD Work Phone: [phone])[phone] [place] [address] 01-03-2025 15:35-0400 Body mass index (BMI) [Ratio] 28.5 kg/m2 Dr. Davide Chao MD Work Phone: 9(519)507-139590 [place] [address] 01-03-2025 15:35-0400 Body weight 80.[address] Davide Chao MD Work Phone: [facility] 01-03-2025 15:35-0400 Diastolic blood pressure 68 mm[Hg] Dr. Davide Chao MD Work Phone: [facility] 01-03-2025 15:35-0400 Systolic blood pressure 108 mm[Hg] Dr. Davide Chao MD Work Phone: [facility] 11-23-2024 22:29-0400 Body temperature 98.1 [degF] Dr. Davide Chao MD Work Phone: [facility] 11-23-2024 22:29-0400 Diastolic blood pressure 72 mm[Hg] Dr. Davide Chao MD Work Phone: [facility] 11-23-2024 22:29-0400 Heart rate 74 /min Dr. Davide Chao MD Work Phone: [facility] 11-23-2024 22:29-0400 Respiratory rate 23 /min Dr. Davide Chao MD Work Phone: [facility] 11-23-2024 22:29-0400 SaO2% (BldA) [Mass fraction] 97 % Dr. Davide Chao MD Work Phone: 3(497)[phone] [place] [address] 11-23-2024 22:29-0400 Systolic blood pressure 97 mm[Hg] Dr. Davide Chao MD Work Phone: 6(739)208-002343 [place] [address] 11-23-2024 20:23-0400 Body height 167.[address] Davide Chao MD Work Phone: 4(083)[phone] [place] [address] 11-23-2024 20:23-0400 Body mass index (BMI) [Ratio] 28.3 kg/m2 Dr. Davide Chao MD Work Phone: [facility] 11-23-2024 20:23-0400 Body weight 79.[address] Davide Chao MD Work Phone: [facility] 09-05-2024 07:06-0400 Body mass index (BMI) [Ratio] 27.44 kg/m2 Marina Snell APRN.LEAVE COORDINATOR Work Phone: [facility] 09-05-2024 07:06-0400 Body weight 77.11 kg Marina Snell APRN.LEAVE COORDINATOR Work Phone: [facility] 09-05-2024 07:06-0400 Diastolic blood pressure 71 mm[Hg] Marina Snell APRN.LEAVE COORDINATOR Work Phone: [facility] 09-05-2024 07:06-0400 Systolic blood pressure 104 mm[Hg] Marina Snell APRN.LEAVE COORDINATOR Work Phone: [facility] 08-19-2024 15:36-0400 Body height 167.[address] Davide Chao MD Work Phone: [facility] 08-19-2024 15:35-0400 Body mass index (BMI) [Ratio] 27.8 kg/m2 Dr. Davide Chao MD Work Phone: [facility] 08-19-2024 15:35-0400 Body weight 78.[address] Davide Chao MD Work Phone: 2(094)[phone] [place] [address] 08-19-2024 15:35-0400 Diastolic blood pressure 79 mm[Hg] Dr. Davide Chao MD Work Phone: 2(344)[phone] [place] [address] 08-19-2024 15:35-0400 Systolic blood pressure 115 mm[Hg] Dr. Davide Chao MD Work Phone: [facility] 06-10-2024 18:44-0500 Body mass index (BMI) [Ratio] 28.86 kg/m2 Davide Chao MD Work Phone: [facility] 06-10-2024 18:44-0500 Body weight 81.1 kg Davide Chao MD Work Phone: [facility] 06-10-2024 18:44-0500 Diastolic blood pressure 74 mm[Hg] Davide Chao MD Work Phone: [facility] 06-10-2024 18:44-0500 Heart rate 78 /min Davide Chao MD Work Phone: [facility] 06-10-2024 18:44-0500 Respiratory rate 16 /min Davide Chao MD Work Phone: [facility] 06-10-2024 18:44-0500 Systolic blood pressure 110 mm[Hg] Davide Chao MD Work Phone: [facility] 06-10-2024 13:57-0500 Body mass index (BMI) [Ratio] 28.4 kg/m2 Dr. Davide Chao MD Work Phone: [facility] 06-10-2024 13:57-0500 Body weight [address] Davide Chao MD Work Phone: [facility] 06-10-2024 13:57-0500 Diastolic blood pressure 74 mm[Hg] Dr. Davide Chao MD Work Phone: [facility] 06-10-2024 13:57-0500 Systolic blood pressure 112 mm[Hg] Dr. Davide Chao MD Work Phone: [facility] 03-22-2024 15:52-0400 Diastolic Blood Pressure Non-Invasive 74 mm[Hg] RAMON PULLIAM MD [facility] 03-22-2024 15:52-0400 Heart rate 85 /min RAMON PULLIAM MD [facility] 03-22-2024 15:52-0400 Respiratory rate 16 /min RAMON PULLIAM MD [facility] 03-22-2024 15:52-0400 Systolic Blood Pressure Non-Invasive 101 mm[Hg] RAMON PULLIAM MD [facility] 03-22-2024 15:37-0400 Diastolic Blood Pressure Non-Invasive 74 mm[Hg] RAMON PULLIAM MD [facility] 03-22-2024 15:37-0400 Heart rate 88 /min RAMON PULLIAM MD [facility] 03-22-2024 15:37-0400 Respiratory rate 18 /min RAMON PULLIAM MD [facility] 03-22-2024 15:37-0400 Systolic Blood Pressure Non-Invasive 98 mm[Hg] RAMON PULLIAM MD [facility] 03-22-2024 15:08-0400 Diastolic Blood Pressure Non-Invasive 73 mm[Hg] RAMON PULLIAM MD [facility] 03-22-2024 15:08-0400 Heart rate 78 /min RAMON PULLIAM MD [facility] 03-22-2024 15:08-0400 Respiratory rate 20 /min RAMON PULLIAM MD [facility] 03-22-2024 15:08-0400 Systolic Blood Pressure Non-Invasive 100 mm[Hg] RAMON PULLIAM MD [facility] 03-22-2024 14:32-0400 Body height 167.6 cm RAMON PULLIAM MD [facility] 03-22-2024 14:32-0400 Body temperature 97.88 [degF] RAMON PULLIAM MD [facility] 03-22-2024 14:32-0400 Body weight 81.8 kg RAMON PULLIAM MD [facility] 03-22-2024 14:32-0400 Heart rate 106 /min RAMON PULLIAM MD [facility] 10-17-2023 11:55-0400 Body mass index (BMI) [Ratio] 28.18 kg/m2 Rayo Bogner PA-C Work Phone: [facility] 10-17-2023 11:55-0400 Body weight 79.2 kg Rayo Bogner PA-C Work Phone: [facility] 10-17-2023 11:55-0400 Diastolic blood pressure 62 mm[Hg] Rayo Bogner PA-C Work Phone: [facility] 10-17-2023 11:55-0400 Heart rate 94 /min Rayo Bogner PA-C Work Phone: [facility] 10-17-2023 11:55-0400 Respiratory rate 16 /min Rayo Bogner PA-C Work Phone: [facility] 10-17-2023 11:55-0400 SaO2% (BldA) [Mass fraction] 98 % Rayo Nielson PA-C Work Phone: [facility] 10-17-2023 11:55-0400 Systolic blood pressure 89 mm[Hg] Rayo Nielson PA-C Work Phone: [facility] 10-03-2023 08:30-0400 Body temperature 96.7 [degF] Dr. Davide Chao Work Phone: [facility] 10-03-2023 08:30-0400 Diastolic blood pressure 65 mm[Hg] Dr. Davide Chao Work Phone: [facility] 10-03-2023 08:30-0400 Heart rate 83 /min Dr. Davide Chao Work Phone: [facility] 10-03-2023 08:30-0400 Respiratory rate 16 /min Dr. Davide Chao Work Phone: [facility] 10-03-2023 08:30-0400 SaO2% (BldA) [Mass fraction] 100 % Dr. Davide Chao Work Phone: [facility] 10-03-2023 08:30-0400 Systolic blood pressure 92 mm[Hg] Dr. Davide Chao Work Phone: [facility] 10-03-2023 06:24-0400 Body height 167.[address] Davide Chao Work Phone: [facility] 10-03-2023 06:24-0400 Body mass index (BMI) [Ratio] 28 kg/m2 Dr. Davide Chao Work Phone: [facility] 10-03-2023 06:24-0400 Body weight 78.[address] Davide Chao Work Phone: [facility] 09-04-2023 08:12-0400 Body mass index (BMI) [Ratio] 28.2 kg/m2 Dr. Davide Chao Work Phone: [facility] 09-04-2023 08:12-0400 Body weight 79.[address] Davide Chao Work Phone: [facility] 09-04-2023 08:12-0400 Diastolic blood pressure 65 mm[Hg] Dr. Davide Chao Work Phone: [facility] 09-04-2023 08:12-0400 Systolic blood pressure 94 mm[Hg] Dr. Davide Chao Work Phone: [facility] 08-10-2023 11:38-0500 Body temperature 97.39 [degF] Roberto Andrea DIRECTOR OF MANAGED CARE.LEAVE COORDINATOR Work Phone: [facility] 08-10-2023 11:38-0500 Body weight 77.6 kg Roberto Andrea DIRECTOR OF MANAGED CARE.LEAVE COORDINATOR Work Phone: [facility] 08-10-2023 11:38-0500 Diastolic blood pressure 76 mm[Hg] Roberto Andrea DIRECTOR OF MANAGED CARE.LEAVE COORDINATOR Work Phone: [facility] 08-10-2023 11:38-0500 Heart rate 82 /min Roberto Andrea DIRECTOR OF MANAGED CARE.LEAVE COORDINATOR Work Phone: [facility] 08-10-2023 11:38-0500 Respiratory rate 18 /min Roberto Andrea DIRECTOR OF MANAGED CARE.LEAVE COORDINATOR Work Phone: [facility] 08-10-2023 11:38-0500 SaO2% (BldA) [Mass fraction] 99 % Roberto Andrea DIRECTOR OF MANAGED CARE.LEAVE COORDINATOR Work Phone: [facility] 08-10-2023 11:38-0500 Systolic blood pressure 105 mm[Hg] Roberto Andrea DIRECTOR OF MANAGED CARE.LEAVE COORDINATOR Work Phone: [facility] 06-28-2023 13:38-0500 Body height 167.[address] Davide Chao Work Phone: [facility] 06-28-2023 13:29-0500 Body mass index (BMI) [Ratio] 27 kg/m2 Dr. Davide Chao Work Phone: [facility] 06-28-2023 13:29-0500 Body weight 75.[address] Davide Chao Work Phone: [facility] 06-28-2023 13:29-0500 Diastolic blood pressure 62 mm[Hg] Dr. Davide Chao Work Phone: [facility] 06-28-2023 13:29-0500 Systolic blood pressure 96 mm[Hg] Dr. Davide Chao Work Phone: [facility] 06-07-2023 00:38-0500 Diastolic blood pressure 78 mm[Hg] Son Gunderson MD Work Phone: [facility] 06-07-2023 00:38-0500 Heart rate 63 /min Son Gunderson MD Work Phone: [facility] 06-07-2023 00:38-0500 Respiratory rate 18 /min Son Gunderson MD Work Phone: [facility] 06-07-2023 00:38-0500 SaO2% (BldA) [Mass fraction] 97 % Son Gunderson MD Work Phone: [facility] 06-07-2023 00:38-0500 Systolic blood pressure 128 mm[Hg] Son Gunderson MD Work Phone: [facility] 06-06-2023 22:28-0500 Body height 167.6 cm Son Gunderson MD Work Phone: [facility] 06-06-2023 22:28-0500 Body mass index (BMI) [Ratio] 25.82 kg/m2 Son Gunderson MD Work Phone: [facility] 06-06-2023 22:28-0500 Body temperature 96.1 [degF] Son Gunderson MD Work Phone: [facility] 06-06-2023 22:28-0500 Body weight 72.58 kg Son Gunderson MD Work Phone: [facility] 03-18-2023 03:50-0400 Diastolic blood pressure 57 mm[Hg] Dr. Davide Chao Work Phone: [facility] 03-18-2023 03:50-0400 Heart rate 64 /min Dr. Davide Chao Work Phone: [facility] 03-18-2023 03:50-0400 Systolic blood pressure 109 mm[Hg] Dr. Davide Chao Work Phone: [facility] 03-18-2023 01:35-0400 Body height 167.[address] Davide Chao Work Phone: [facility] 03-18-2023 01:35-0400 Body mass index (BMI) [Ratio] 28.2 kg/m2 Dr. Davide Chao Work Phone: [facility] 03-18-2023 01:35-0400 Body weight 79.[address] Davide Chao Work Phone: [facility] 03-18-2023 01:32-0400 SaO2% (BldA) [Mass fraction] 98 % Dr. Davide Chao Work Phone: [facility] 03-13-2023 20:01-0400 Diastolic blood pressure 89 mm[Hg] Edy Orellana MD Work Phone: [facility] 03-13-2023 20:01-0400 Heart rate 63 /min Edy Orellana MD Work Phone: [facility] 03-13-2023 20:01-0400 Respiratory rate 16 /min Edy Orellana MD Work Phone: [facility] 03-13-2023 20:01-0400 SaO2% (BldA) [Mass fraction] 97 % Edy Orellana MD Work Phone: [facility] 03-13-2023 20:01-0400 Systolic blood pressure 133 mm[Hg] Edy Orellana MD Work Phone: [facility] 03-13-2023 16:40-0400 Body height 167.6 cm Edy Orellana MD Work Phone: [facility] 03-13-2023 16:40-0400 Body mass index (BMI) [Ratio] 27.44 kg/m2 Edy Orellana MD Work Phone: [facility] 03-13-2023 16:40-0400 Body temperature 98.4 [degF] Edy Orellana MD Work Phone: [facility] 03-13-2023 16:40-0400 Body weight 77.11 kg Edy Orellana MD Work Phone: [facility] 03-11-2023 12:00-0400 Body temperature 98 [degF] Dr. Davide Chao Work Phone: [facility] 03-11-2023 12:00-0400 Diastolic blood pressure 74 mm[Hg] Dr. Davide Chao Work Phone: [facility] 03-11-2023 12:00-0400 Heart rate 67 /min Dr. Davide Chao Work Phone: [facility] 03-11-2023 12:00-0400 Respiratory rate 16 /min Dr. Davide Chao Work Phone: [facility] 03-11-2023 12:00-0400 SaO2% (BldA) [Mass fraction] 99 % Dr. Davide Chao Work Phone: [facility] 03-11-2023 12:00-0400 Systolic blood pressure 117 mm[Hg] Dr. Davide Chao Work Phone: [facility] 03-09-2023 17:37-0400 Body mass index (BMI) [Ratio] 31.4 kg/m2 Dr. Davide Chao Work Phone: [facility] 03-09-2023 17:37-0400 Body weight 88.[address] Davide Chao Work Phone: 0(680)443-574643 [place] [address] 03-09-2023 10:31-0400 Body mass index (BMI) [Ratio] 31.3 kg/m2 Dr. Davide Chao Work Phone: 6(078)390-387443 [place] [address] 03-09-2023 10:31-0400 Body weight 87.[address] Davide Chao Work Phone: 2(942)609-486943 [place] [address] 03-08-2023 05:22-0400 Body mass index (BMI) [Ratio] 31.4 kg/m2 Dr. Davide Chao Work Phone: 6(896)807-030143 [place] [address] 03-08-2023 05:22-0400 Body weight 88.[address] Davide Chao Work Phone: 3(002)740-843343 [place] [address] 03-08-2023 04:50-0400 Body temperature 97.6 [degF] Dr. Davide Chao Work Phone: 7(695)844-952643 [place] [address] 03-08-2023 04:50-0400 Diastolic blood pressure 76 mm[Hg] Dr. Davide Chao Work Phone: 0(586)896-363643 [place] [address] 03-08-2023 04:50-0400 Heart rate 100 /min Dr. Davide Chao Work Phone: 9(904)246-585143 [place] [address] 03-08-2023 04:50-0400 SaO2% (BldA) [Mass fraction] 100 % Dr. Davide Chao Work Phone: 4(422)665-231043 [place] [address] 03-08-2023 04:50-0400 Systolic blood pressure 107 mm[Hg] Dr. Davide Chao Work Phone: 4(510)736-959843 [place] [address] 03-04-2023 09:34-0400 Body height 167.[address] Davide Chao Work Phone: 1(378)467-699143 [place] [address] 03-04-2023 09:34-0400 Body mass index (BMI) [Ratio] 31.4 kg/m2 Dr. Davide Chao Work Phone: 9(882)558-959343 [place] [address] 03-04-2023 09:34-0400 Body weight 88.[address] Davide Chao Work Phone: 4(230)647-357643 [place] [address] 03-04-2023 09:28-0400 Body temperature 97.7 [degF] Dr. Davide Chao Work Phone: 5(154)407-008643 [place] [address] 03-04-2023 09:27-0400 Diastolic blood pressure 69 mm[Hg] Dr. Davide Chao Work Phone: 7(553)348-721343 [place] [address] 03-04-2023 09:27-0400 Heart rate 99 /min Dr. Davide Chao Work Phone: 8(695)875-838743 [place] [address] 03-04-2023 09:27-0400 Systolic blood pressure 106 mm[Hg] Dr. Davide Chao Work Phone: 8(267)602-415443 [place] [address] 03-04-2023 07:47-0400 Diastolic blood pressure 70 mm[Hg] Dr. Davide Chao Work Phone: 1(213)224-837643 [place] [address] 03-04-2023 07:47-0400 Heart rate 74 /min Dr. Davide Chao Work Phone: 5(489)397-392743 [place] [address] 03-04-2023 07:47-0400 Systolic blood pressure 122 mm[Hg] Dr. Davide Chao Work Phone: 9(227)111-844243 [place] [address] 03-04-2023 07:46-0400 Body temperature 97.6 [degF] Dr. Davide Chao Work Phone: 2(318)673-255243 [place] [address] 03-04-2023 07:46-0400 SaO2% (BldA) [Mass fraction] 100 % Dr. Davide Chao Work Phone: 5(533)485-163043 [place] [address] 03-04-2023 04:00-0400 Body mass index (BMI) [Ratio] 31.1 kg/m2 Dr. Davide Chao Work Phone: 0(795)044-533243 [place] [address] 03-04-2023 04:00-0400 Body weight 87.[address] Davide Chao Work Phone: 5(568)036-712243 [place] [address] 03-01-2023 20:19-0400 Body mass index (BMI) [Ratio] 30.6 kg/m2 Dr. Davide Chao Work Phone: 0(194)308-992343 [place] [address] 03-01-2023 20:19-0400 Body weight [address] Davide Chao Work Phone: 7(839)548-731043 [place] [address] 03-01-2023 20:10-0400 Diastolic blood pressure 64 mm[Hg] Dr. Davide Chao Work Phone: 0(466)873-917743 [place] [address] 03-01-2023 20:10-0400 Heart rate 105 /min Dr. Davide Chao Work Phone: 3(367)604-030343 [place] [address] 03-01-2023 20:10-0400 Systolic blood pressure 103 mm[Hg] Dr. Davide Chao Work Phone: 3(613)441-911343 [place] [address] 03-01-2023 20:07-0400 SaO2% (BldA) [Mass fraction] 99 % Dr. Davide Chao Work Phone: 7(687)433-051843 [place] [address] 02-28-2023 15:37-0400 Body mass index (BMI) [Ratio] 30.7 kg/m2 Dr. Davide Chao Work Phone: 5(199)141-828943 [place] [address] 02-28-2023 15:37-0400 Body weight 86.[address] Davide Chao Work Phone: 3(633)161-034143 [place] [address] 02-28-2023 15:37-0400 Diastolic blood pressure 70 mm[Hg] Dr. Davide Chao Work Phone: 3(068)838-517943 [place] [address] 02-28-2023 15:37-0400 Systolic blood pressure 102 mm[Hg] Dr. Davide Chao Work Phone: 8(883)241-823143 [place] [address] 02-18-2023 14:35-0400 Body height 167.[address] Davide Chao Work Phone: 7(353)095-329543 [place] [address] 02-18-2023 14:35-0400 Body mass index (BMI) [Ratio] 30 kg/m2 Dr. Davide Chao Work Phone: 9(641)862-675743 [place] [address] 02-18-2023 14:35-0400 Body weight 84.[address] Davide Chao Work Phone: 3(290)353-848743 [place] [address] 02-18-2023 08:48-0400 Diastolic blood pressure 66 mm[Hg] Dr. Davide Chao Work Phone: 2(642)394-875943 [place] [address] 02-18-2023 08:48-0400 Heart rate 80 /min Dr. Davide Chao Work Phone: 6(169)334-440743 [place] [address] 02-18-2023 08:48-0400 Systolic blood pressure 107 mm[Hg] Dr. Davide Chao Work Phone: 9(059)194-701043 [place] [address] 02-18-2023 07:25-0400 SaO2% (BldA) [Mass fraction] 98 % Dr. Davide Chao Work Phone: 5(471)033-202243 [place] [address] 02-17-2023 15:47-0400 Body height 165.[address] Davide Chao Work Phone: 1(538)474-592443 [place] [address] 02-17-2023 15:45-0400 Body mass index (BMI) [Ratio] 31.1 kg/m2 Dr. Davide Chao Work Phone: 7(256)535-085643 [place] [address] 02-17-2023 15:45-0400 Body weight 84.[address] Davide Chao Work Phone: 1(687)078-738943 [place] [address] 02-17-2023 15:45-0400 Diastolic blood pressure 80 mm[Hg] Dr. Davide Chao Work Phone: 3(937)671-675443 [place] [address] 02-17-2023 15:45-0400 Systolic blood pressure 110 mm[Hg] Dr. Davide Chao Work Phone: 4(310)473-137343 [place] [address] 02-02-2023 15:58-0400 Body mass index (BMI) [Ratio] 31.1 kg/m2 Dr. Davide Chao Work Phone: 4(287)995-535643 [place] [address] 02-02-2023 15:58-0400 Body weight 85.[address] Davide Chao Work Phone: 2(143)665-925443 [place] [address] 02-02-2023 15:58-0400 Diastolic blood pressure 72 mm[Hg] Dr. Davide Chao Work Phone: 1(173)170-041143 [place] [address] 02-02-2023 15:58-0400 Systolic blood pressure 110 mm[Hg] Dr. Davide Chao Work Phone: 1(172)414-149443 [place] [address] 02-01-2023 09:45-0400 Body temperature 97.3 [degF] Dr. Davide Chao Work Phone: 2(936)725-909843 [place] [address] 02-01-2023 09:45-0400 Diastolic blood pressure 73 mm[Hg] Dr. Davide Chao Work Phone: 8(080)551-664343 [place] [address] 02-01-2023 09:45-0400 Heart rate 93 /min Dr. Davide Chao Work Phone: 6(214)672-325143 [place] [address] 02-01-2023 09:45-0400 Respiratory rate 17 /min Dr. Davide Chao Work Phone: 9(344)192-287443 [place] [address] 02-01-2023 09:45-0400 SaO2% (BldA) [Mass fraction] 99 % Dr. Davide Chao Work Phone: 8(659)720-023343 [place] [address] 02-01-2023 09:45-0400 Systolic blood pressure 106 mm[Hg] Dr. Davide Chao Work Phone: 3(318)428-118643 [place] [address] 01-30-2023 18:40-0400 Body temperature 97.8 [degF] Dr. Davide Chao Work Phone: 7(458)561-790090 [place] [address] 01-30-2023 18:40-0400 Diastolic blood pressure 68 mm[Hg] Dr. Davide Chao Work Phone: 6(927)240-370359 [address] 01-30-2023 18:40-0400 Heart rate 76 /min Dr. Davide Chao Work Phone: 9(586)139-325643 [place] [address] 01-30-2023 18:40-0400 Systolic blood pressure 119 mm[Hg] Dr. Davide Chao Work Phone: 4(763)803-977243 [place] [address] 01-30-2023 14:15-0400 Body height 165.[address] Davide Chao Work Phone: 4(061)097-431590 [place] [address] 01-30-2023 14:15-0400 Body mass index (BMI) [Ratio] 30.8 kg/m2 Dr. Davide Chao Work Phone: 7(942)807-909143 [place] [address] 01-30-2023 14:15-0400 Body weight [address] Davide Chao Work Phone: 5(896)501-810443 [place] [address] 01-30-2023 14:12-0400 Body temperature 96.8 [degF] Dr. Davide Chao Work Phone: 5(909)824-492343 [place] [address] 01-30-2023 14:12-0400 Diastolic blood pressure 65 mm[Hg] Dr. Davide Chao Work Phone: 5(714)795-462343 [place] [address] 01-30-2023 14:12-0400 Heart rate 101 /min Dr. Davide Chao Work Phone: 2(474)649-012443 [place] [address] 01-30-2023 14:12-0400 Systolic blood pressure 119 mm[Hg] Dr. Davide Chao Work Phone: 9(101)460-950743 [place] [address] 01-23-2023 22:36-0400 Diastolic blood pressure 79 mm[Hg] Dr. Davide Chao Work Phone: 0(659)595-400543 [place] [address] 01-23-2023 22:36-0400 Heart rate 82 /min Dr. Davide Chao Work Phone: 7(998)320-605743 [place] [address] 01-23-2023 22:36-0400 Respiratory rate 18 /min Dr. Davide Chao Work Phone: 1(327)594-863243 [place] [address] 01-23-2023 22:36-0400 SaO2% (BldA) [Mass fraction] 100 % Dr. Davide Chao Work Phone: 6(486)209-734243 [place] [address] 01-23-2023 22:36-0400 Systolic blood pressure 117 mm[Hg] Dr. Davide Chao Work Phone: 2(982)434-228643 [place] [address] 01-23-2023 19:52-0400 Body height 167.[address] Davide Chao Work Phone: 0(384)537-900043 [place] [address] 01-23-2023 19:52-0400 Body mass index (BMI) [Ratio] 30.2 kg/m2 Dr. Davide Chao Work Phone: 5(996)551-717043 [place] [address] 01-23-2023 19:52-0400 Body temperature 97.2 [degF] Dr. Davide Chao Work Phone: 5(772)288-338043 [place] [address] 01-23-2023 19:52-0400 Body weight 84.[address] Davide Chao Work Phone: 0(691)929-520443 [place] [address] 01-16-2023 19:57-0400 Diastolic blood pressure 54 mm[Hg] Dr. Davide Chao Work Phone: 3(154)999-532343 [place] [address] 01-16-2023 19:57-0400 Heart rate 94 /min Dr. Davide Chao Work Phone: 8(837)950-532143 [place] [address] 01-16-2023 19:57-0400 SaO2% (BldA) [Mass fraction] 99 % Dr. Davide Chao Work Phone: 6(645)299-463243 [place] [address] 01-16-2023 19:57-0400 Systolic blood pressure 96 mm[Hg] Dr. Davide Chao Work Phone: 6(127)931-039443 [place] [address] 01-16-2023 19:56-0400 Body temperature 97.8 [degF] Dr. Davide Chao Work Phone: 7(793)646-342143 [place] [address] 01-16-2023 16:48-0400 Body mass index (BMI) [Ratio] 30.5 kg/m2 Dr. Davide Chao Work Phone: 9(881)373-997143 [place] [address] 01-16-2023 16:48-0400 Body weight 85.[address] Davide Chao Work Phone: 5(372)751-134343 [place] [address] 01-16-2023 15:24-0400 Body mass index (BMI) [Ratio] 30.7 kg/m2 Dr. Davide Chao Work Phone: 9(160)650-512243 [place] [address] 01-16-2023 15:24-0400 Body weight 86.[address] Davide Chao Work Phone: [facility] 12-21-2022 11:19-0400 Body mass index (BMI) [Ratio] 29.4 kg/m2 Dr. Davide Chao Work Phone: [facility] 12-21-2022 11:19-0400 Body weight 82.[address] Davide Chao Work Phone: [facility] 12-21-2022 11:19-0400 Diastolic blood pressure 70 mm[Hg] Dr. Davide Chao Work Phone: [facility] 12-21-2022 11:19-0400 Systolic blood pressure 110 mm[Hg] Dr. Davide Chao Work Phone: [facility] 11-25-2022 09:26-0400 Body mass index (BMI) [Ratio] 28.3 kg/m2 Dr. Davide Chao Work Phone: [facility] 11-25-2022 09:26-0400 Body weight 79.[address] Davide Chao Work Phone: [facility] 11-25-2022 09:26-0400 Diastolic blood pressure 65 mm[Hg] Dr. Davide Chao Work Phone: [facility] 11-25-2022 09:26-0400 Systolic blood pressure 98 mm[Hg] Dr. Davide Chao Work Phone: [facility] 11-11-2022 00:19-0400 Body height 167.4 cm Andry Rueda MD Work Phone: [facility] 11-11-2022 00:19-0400 Body mass index (BMI) [Ratio] 27.83 kg/m2 Andry Rueda MD Work Phone: [facility] 11-11-2022 00:19-0400 Body weight 78 kg Andry Rueda MD Work Phone: [facility] 10-28-2022 09:23-0400 Body height 167.[address] Davide Chao Work Phone: 3(110)379-092290 [place] [address] 10-28-2022 09:16-0400 Body mass index (BMI) [Ratio] 27.4 kg/m2 Dr. Davide Chao Work Phone: 7(459)201-439959 [address] 10-28-2022 09:16-0400 Body weight 77.[address] Davide Chao Work Phone: 7(968)592-843659 [address] 10-28-2022 09:16-0400 Diastolic blood pressure 73 mm[Hg] Dr. Davide Chao Work Phone: 7(413)856-142459 [address] 10-28-2022 09:16-0400 Systolic blood pressure 106 mm[Hg] Dr. Davide Chao Work Phone: 4(931)176-580943 [place] [address] 09-28-2022 08:06-0400 Body height 167.[address] Davide Chao Work Phone: 8(783)741-555143 [place] [address] 09-28-2022 08:06-0400 Body mass index (BMI) [Ratio] 26.8 kg/m2 Dr. Davide Chao Work Phone: 4(007)098-923443 [place] [address] 09-28-2022 08:06-0400 Body weight 75.[address] Davide Chao Work Phone: 5(013)264-637943 [place] [address] 09-28-2022 08:06-0400 Diastolic blood pressure 71 mm[Hg] Dr. Davide Chao Work Phone: 8(883)454-633659 [address] 09-28-2022 08:06-0400 Systolic blood pressure 104 mm[Hg] Dr. Davide Chao Work Phone: 8(317)204-264943 [place] [address] 09-11-2022 23:47-0400 Diastolic blood pressure 62 mm[Hg] Davide Chao Other Phone: [facility] 09-11-2022 23:47-0400 Heart rate 85 /min Davide Chao Other Phone: [facility] 09-11-2022 23:47-0400 Respiratory rate 15 /min Davide Chao Other Phone: [facility] 09-11-2022 23:47-0400 SaO2% (BldA) [Mass fraction] 100 % Davide Chao Other Phone: [facility] 09-11-2022 23:47-0400 Systolic blood pressure 95 mm[Hg] Davide Chao Other Phone: [facility] 09-11-2022 22:56-0400 Body height 167.6 cm Davide Chao Other Phone: [facility] 09-11-2022 22:56-0400 Body weight 72.7 kg Davide Chao Other Phone: [facility] 08-17-2022 13:25-0400 Body height 167.[address] Davide Chao Work Phone: [facility] 08-17-2022 13:24-0400 Body mass index (BMI) [Ratio] 26.4 kg/m2 Dr. Davide Chao Work Phone: [facility] 08-17-2022 13:24-0400 Body weight 74.[address] Davide Chao Work Phone: [facility] 08-17-2022 13:24-0400 Diastolic blood pressure 70 mm[Hg] Dr. Davide Chao Work Phone: [facility] 08-17-2022 13:24-0400 Systolic blood pressure 105 mm[Hg] Dr. Davide Chao Work Phone: [facility] 07-29-2022 15:16-0500 Body height 167.[address] Davide Chao Work Phone: [facility] 07-29-2022 15:16-0500 Body mass index (BMI) [Ratio] 26.9 kg/m2 Dr. Davide Chao Work Phone: [facility] 07-29-2022 15:16-0500 Body weight 75.[address] Davide Chao Work Phone: [facility] 07-29-2022 15:16-0500 Diastolic blood pressure 72 mm[Hg] Dr. Davide Chao Work Phone: [facility] 07-29-2022 15:16-0500 Systolic blood pressure 104 mm[Hg] Dr. Davide Chao Work Phone: [facility] 07-13-2022 23:15-0500 Diastolic blood pressure 71 mm[Hg] Nery Esparza MD Work Phone: [employer] 07-13-2022 23:15-0500 SaO2% (BldA) [Mass fraction] 100 % Nery Esparza MD Work Phone: [employer] 07-13-2022 23:15-0500 Systolic blood pressure 105 mm[Hg] Nery Esparza MD Work Phone: [employer] 07-13-2022 22:57-0500 Body height 167.6 cm Nery Esparza MD Work Phone: [employer] 07-13-2022 22:57-0500 Body mass index (BMI) [Ratio] 27.07 kg/m2 Nery Esparza MD Work Phone: [employer] 07-13-2022 22:57-0500 Body temperature 98.2 [degF] Nery Esparza MD Work Phone: [employer] 07-13-2022 22:57-0500 Body weight 76.07 kg Nery Esparza MD Work Phone: [employer] 07-13-2022 22:57-0500 Heart rate 96 /min Nery Esparza MD Work Phone: [employer] 07-13-2022 22:57-0500 Respiratory rate 18 /min Nery Esparza MD Work Phone: [employer] 11-21-2021 09:11-0400 Body mass index (BMI) [Ratio] 27.12 kg/m2 Mireya Dewitt CNP Work Phone: [facility] 11-21-2021 09:11-0400 Body temperature 98.4 [degF] Mireya Dewitt CNP Work Phone: [facility] 11-21-2021 09:11-0400 Body weight 76.2 kg Mireya Dewitt CNP Work Phone: [facility] 11-21-2021 09:11-0400 Diastolic blood pressure 70 mm[Hg] Mireya Dewitt CNP Work Phone: [facility] 11-21-2021 09:11-0400 Heart rate 86 /min Mireya Dewitt CNP Work Phone: [facility] 11-21-2021 09:11-0400 Respiratory rate 14 /min Mireya Dewitt CNP Work Phone: [facility] 11-21-2021 09:11-0400 SaO2% (BldA) [Mass fraction] 97 % Mireya Dewitt CNP Work Phone: [facility] 11-21-2021 09:11-0400 Systolic blood pressure 99 mm[Hg] Mireya Dewitt CNP Work Phone: [facility] 11-16-2021 13:58-0400 Body height 167.64 cm Davide Reny [employer] Work Phone: [employer] Work Phone: 11-16-2021 13:58-0400 Body mass index (BMI) [Ratio] 28.43 kg/m2 Davide [employer]y [employer] Work Phone: [employer] Work Phone: 11-16-2021 13:58-0400 Body surface area Derived from formula 1.9 m2 Davide Reny [employer] Work Phone: [employer] Work Phone: 11-16-2021 13:58-0400 Body weight 79.9 kg Davide Oglesby [employer] Work Phone: [facility] Work Phone: 11-16-2021 13:58-0400 Diastolic blood pressure 64 mm[Hg] Davide Chao Work Phone: [employer] Work Phone: 11-16-2021 13:58-0400 Systolic blood pressure 110 mm[Hg] Davide Chao Work Phone: [employer] Work Phone: 10-14-2021 15:28-0400 Body temperature 97.88 [degF] Davide Chao Other Phone: [facility] 10-14-2021 15:28-0400 Diastolic blood pressure 71 mm[Hg] Davide Chao Other Phone: [facility] 10-14-2021 15:28-0400 Heart rate 79 /min Davide Chao Other Phone: [facility] 10-14-2021 15:28-0400 Respiratory rate 16 /min Davide Chao Other Phone: [facility] 10-14-2021 15:28-0400 SaO2% (BldA) [Mass fraction] 99 % Davide Chao Other Phone: [facility] 10-14-2021 15:28-0400 Systolic blood pressure 118 mm[Hg] Davide Chao Other Phone: [facility] 10-08-2021 10:24-0400 Body height 167.64 cm Davide Chao Work Phone: [employer] Work Phone: 10-08-2021 10:24-0400 Body mass index (BMI) [Ratio] 31.24 kg/m2 Davide Chao Work Phone: [employer] Work Phone: 10-08-2021 10:24-0400 Body surface area Derived from formula 1.97 m2 Davide Chao Work Phone: [place] [address] [place] Work Phone: 10-08-2021 10:24-0400 Body weight 87.8 kg Davide D WillieMavin Work Phone: [place] [address] [place] Work Phone: 10-08-2021 10:24-0400 Diastolic blood pressure 64 mm[Hg] Davide D [employer] Work Phone: [place] [id number] [employer] Work Phone: 10-08-2021 10:24-0400 Systolic blood pressure 104 mm[Hg] Davide Reny [employer] Work Phone: [place] [id number] [employer] Work Phone: 10-01-2021 11:25-0400 Body height 167.64 cm Davide Reny [employer] Work Phone: [place] [id number] [employer] Work Phone: 10-01-2021 11:25-0400 Body mass index (BMI) [Ratio] 31.06 kg/m2 Davide Reny [employer] Work Phone: [place] [id number] [employer] Work Phone: 10-01-2021 11:25-0400 Body surface area Derived from formula 1.97 m2 Davide Reny [employer] Work Phone: [place] [id number] [employer] Work Phone: 10-01-2021 11:25-0400 Body weight 87.3 kg Davide Reny [employer] Work Phone: [place] [address] [employer] Work Phone: 10-01-2021 11:25-0400 Diastolic blood pressure 62 mm[Hg] Davide Oglesby [employer] Work Phone: [place] [id number] [employer] Work Phone: 10-01-2021 11:25-0400 Systolic blood pressure 102 mm[Hg] Davide EspitiaMavin Work Phone: [facility] [place] [address] [place] Work Phone: 09-24-2021 11:14-0400 Body height 167.64 cm Davide EspitiaMavin Work Phone: [facility] [employer] [address] [place] Work Phone: 09-24-2021 11:14-0400 Body mass index (BMI) [Ratio] 30.53 kg/m2 Davide Oglesby [employer] Work Phone: [facility] [place] [address] [employer] Work Phone: 09-24-2021 11:14-0400 Body surface area Derived from formula 1.95 m2 Davide EspitiaMavin Work Phone: [facility] [id number] [employer] Work Phone: 09-24-2021 11:14-0400 Body weight 85.79 kg Davide EspitiaMavin Work Phone: [facility] [id number] [employer] Work Phone: 09-24-2021 11:14-0400 Diastolic blood pressure 80 mm[Hg] Davide EspitiaMavin Work Phone: [facility] [address] [place] Work Phone: 09-24-2021 11:14-0400 Systolic blood pressure 110 mm[Hg] Davide EspitiaMavin Work Phone: [facility] [employer] [facility] [employer] [facility] [place] [address] [place] Work Phone: 09-17-2021 11:35-0400 Body height 167.64 cm Davide EspitiaMavin Work Phone: [facility] [address] [place] Work Phone: 09-17-2021 11:35-0400 Body mass index (BMI) [Ratio] 30.21 kg/m2 Davide EspitiaMavin Work Phone: [facility] hospital[facility] [address] [place] Work Phone: 09-17-2021 11:35-0400 Body surface area Derived from formula 1.94 m2 Davide Oglesby [employer] Work Phone: [place] [address] [place] Work Phone: 09-17-2021 11:35-0400 Body weight 84.9 kg Davide D [employer] Work Phone: [place] [address] [place] Work Phone: 09-17-2021 11:35-0400 Diastolic blood pressure 66 mm[Hg] Davide D [employer] Work Phone: [place] [address] [place] Work Phone: 09-17-2021 11:35-0400 Systolic blood pressure 108 mm[Hg] Davide Oglesby [employer] Work Phone: [employer] [facility] [place] Work Phone: 09-10-2021 10:59-0400 Body height 167.64 cm Davide Oglesby [employer] Work Phone: [employer] [facility] [place] Work Phone: 09-10-2021 10:59-0400 Body mass index (BMI) [Ratio] 30.1 kg/m2 Davide Oglesby [employer] Work Phone: [place] [address] [place] Work Phone: 09-10-2021 10:59-0400 Body surface area Derived from formula 1.94 m2 Davide Oglesby [employer] Work Phone: [employer] [facility] [place] Work Phone: 09-10-2021 10:59-0400 Body weight 84.6 kg Davide Reny [employer] Work Phone: [place] [address] [place] Work Phone: 09-10-2021 10:59-0400 Diastolic blood pressure 62 mm[Hg] Davide Oglesby [employer] Work Phone: [place] [address] [place] Work Phone: 09-10-2021 10:59-0400 Systolic blood pressure 110 mm[Hg] Davide Oglesby [employer] Work Phone: [employer] Work Phone: 08-27-2021 11:23-0400 Body height 167.64 cm Davide Oglesby [employer] Work Phone: [employer] Work Phone: 08-27-2021 11:23-0400 Body mass index (BMI) [Ratio] 30.04 kg/m2 Davide Oglesby [employer] Work Phone: [employer] Work Phone: 08-27-2021 11:23-0400 Body surface area Derived from formula 1.94 m2 Davide Oglesby [employer] Work Phone: [employer] Work Phone: 08-27-2021 11:23-0400 Body weight 84.43 kg Davide Oglesby [employer] Work Phone: [employer] Work Phone: 08-27-2021 11:23-0400 Diastolic blood pressure 78 mm[Hg] Davide Oglesby [employer] Phone: [employer] Work Phone: 08-27-2021 11:23-0400 Systolic blood pressure 118 mm[Hg] Davide EspitiaMavin Work Phone: [employer] Work Phone: 08-13-2021 08:58-0500 Body height 167.64 cm Davide Oglesby [employer] Work Phone: [employer] Work Phone: 08-13-2021 08:58-0500 Body mass index (BMI) [Ratio] 29.39 kg/m2 Davide Oglesby [employer] Work Phone: [employer] Work Phone: 08-13-2021 08:58-0500 Body surface area Derived from formula 1.92 m2 Davide D [employer] Work Phone: [place] [address] [place] Work Phone: 08-13-2021 08:58-0500 Body weight 82.6 kg Davide D [employer] Work Phone: [place] [address] [place] Work Phone: 08-13-2021 08:58-0500 Diastolic blood pressure 60 mm[Hg] Davide D [employer] Work Phone: [place] [address] [place] Work Phone: 08-13-2021 08:58-0500 Systolic blood pressure 112 mm[Hg] Davide D [employer] Work Phone: [place] [address] [place] Work Phone: 07-30-2021 11:06-0500 Body height 167.64 cm Davide D [employer] Work Phone: [place] [address] [place] Work Phone: 07-30-2021 11:06-0500 Body mass index (BMI) [Ratio] 28.93 kg/m2 Davide D [employer] Work Phone: [place] [address] [place] Work Phone: 07-30-2021 11:06-0500 Body surface area Derived from formula 1.91 m2 Davide D [employer] Work Phone: [place] [address] [place] Work Phone: 07-30-2021 11:06-0500 Body weight 81.3 kg Davide D [employer] Work Phone: [place] [address] [place] Work Phone: 07-30-2021 11:06-0500 Diastolic blood pressure 68 mm[Hg] Davide D [employer] Work Phone: [place] [address] [place] Work Phone: 07-30-2021 11:06-0500 Systolic blood pressure 114 mm[Hg] Davide Chao Work Phone: [place] [address] [place] Work Phone: 07-12-2021 14:39-0500 Body height 167.64 cm Davide Chao Work Phone: [place] [address] [place] Work Phone: 07-12-2021 14:39-0500 Body mass index (BMI) [Ratio] 28.75 kg/m2 Davide Chao Work Phone: [place] [address] [place] Work Phone: 07-12-2021 14:39-0500 Body surface area Derived from formula 1.9 m2 Davide Chao Work Phone: [place] [address] [place] Work Phone: 07-12-2021 14:39-0500 Body temperature 97.7 [degF] Davide Chao Work Phone: [place] [address] [place] Work Phone: 07-12-2021 14:39-0500 Body weight 80.8 kg Davide Chao Work Phone: [place] [address] [place] Work Phone: 07-12-2021 14:39-0500 Diastolic blood pressure 64 mm[Hg] Davide Chao Work Phone: [place] [address] [place] Work Phone: 07-12-2021 14:39-0500 Systolic blood pressure 116 mm[Hg] Davide Chao Work Phone: [place] [address] [place] Work Phone: 06-23-2021 20:00-0500 Body height 167.6 cm Gallito Couch MD Work Phone: [facility] 06-23-2021 20:00-0500 Body mass index (BMI) [Ratio] 27.95 kg/m2 Gallito Couch MD Work Phone: [facility] 06-23-2021 20:00-0500 Body temperature 98.4 [degF] Gallito Couch MD Work Phone: [facility] 06-23-2021 20:00-0500 Body weight 78.55 kg Gallito Couch MD Work Phone: [facility] [place] [facility] 06-23-2021 20:00-0500 Diastolic blood pressure 66 mm[Hg] Gallito Couch MD Work Phone: [facility] 06-23-2021 20:00-0500 Heart rate 81 /min Gallito Couch MD Work Phone: [facility] 06-23-2021 20:00-0500 Respiratory rate 18 /min Gallito Couch MD Work Phone: [facility] 06-23-2021 20:00-0500 SaO2% (BldA) [Mass fraction] 98 % Gallito Couch MD Work Phone: [facility] 06-23-2021 20:00-0500 Systolic blood pressure 101 mm[Hg] Gallito Couch MD Work Phone: [facility] 05-17-2021 13:06-0500 Body height 167.6 cm Yuri Palencia MD Work Phone: [facility] 05-17-2021 13:06-0500 Body mass index (BMI) [Ratio] 26.26 kg/m2 Yuri Palencia MD Work Phone: [facility] 05-17-2021 13:06-0500 Body weight 73.8 kg Yuri Palencia MD Work Phone: [facility] 05-17-2021 13:06-0500 Diastolic blood pressure 65 mm[Hg] Yuri Palencia MD Work Phone: [facility] 05-17-2021 13:06-0500 Heart rate 80 /min Yuri Palencia MD Work Phone: [facility] 05-17-2021 13:06-0500 SaO2% (BldA) [Mass fraction] 95 % Yuri Palencia MD Work Phone: [facility] 05-17-2021 13:06-0500 Systolic blood pressure 97 mm[Hg] Yuri Palencia MD Work Phone: [facility] 03-17-2021 02:05-0400 Diastolic blood pressure 66 mm[Hg] Davide Chao Other Phone: [facility] 03-17-2021 02:05-0400 Heart rate 59 /min Davide Chao Other Phone: [facility] 03-17-2021 02:05-0400 Respiratory rate 16 /min Davide Chao Other Phone: [facility] 03-17-2021 02:05-0400 SaO2% (BldA) [Mass fraction] 96 % Davide Chao Other Phone: [facility] 03-17-2021 02:05-0400 Systolic blood pressure 102 mm[Hg] Davide Chao Other Phone: [facility] 03-01-2021 06:50-0400 Diastolic blood pressure 63 mm[Hg] Davide Chao Other Phone: [facility] 03-01-2021 06:50-0400 Heart rate 60 /min Davide Chao Other Phone: [facility] 03-01-2021 06:50-0400 Respiratory rate 18 /min Davide Chao Other Phone: [facility] 03-01-2021 06:50-0400 SaO2% (BldA) [Mass fraction] 99 % Davide Chao Other Phone: [facility] 03-01-2021 06:50-0400 Systolic blood pressure 98 mm[Hg] Davide Chao Other Phone: [facility] 12-15-2020 02:09-0400 Diastolic blood pressure 72 mm[Hg] Davide Chao Other Phone: [facility] 12-15-2020 02:09-0400 Heart rate 74 /min Davide Chao Other Phone: [facility] 12-15-2020 02:09-0400 Respiratory rate 20 /min Davide Chao Other Phone: [facility] 12-15-2020 02:09-0400 SaO2% (BldA) [Mass fraction] 99 % Davide Chao Other Phone: [facility] 12-15-2020 02:09-0400 Systolic blood pressure 107 mm[Hg] Davide Chao Other Phone: [facility] 12-08-2020 03:30-0400 Diastolic blood pressure 68 mm[Hg] Davide Chao Other Phone: [facility] 12-08-2020 03:30-0400 Heart rate 61 /min Davide Chao Other Phone: [facility] 12-08-2020 03:30-0400 SaO2% (BldA) [Mass fraction] 98 % Davide Chao Other Phone: [facility] 12-08-2020 03:30-0400 Systolic blood pressure 103 mm[Hg] Davide Chao Other Phone: [facility] 12-08-2020 02:21-0400 Respiratory rate 16 /min Davide Chao Other Phone: [facility] 09-27-2020 12:09-0400 Body temperature 98.4 [degF] Barbara Sandoval MD Work Phone: [facility] 09-27-2020 12:09-0400 Diastolic blood pressure 76 mm[Hg] Barbara Sandoval MD Work Phone: [facility] 09-27-2020 12:09-0400 Heart rate 102 /min Barbara Sandoval MD Work Phone: [facility] 09-27-2020 12:09-0400 Respiratory rate 18 /min Barbara Sandoval MD Work Phone: [facility] 09-27-2020 12:09-0400 SaO2% (BldA) [Mass fraction] 100 % Barbara Sandoval MD Work Phone: [facility] 09-27-2020 12:09-0400 Systolic blood pressure 114 mm[Hg] Barbara Sandoval MD Work Phone: [facility] 09-26-2020 21:00-0400 Diastolic blood pressure 59 mm[Hg] Davide Chao Other Phone: [facility] 09-26-2020 21:00-0400 Heart rate 66 /min Davide Chao Other Phone: [facility] 09-26-2020 21:00-0400 Respiratory rate 18 /min Davide Chao Other Phone: [facility] 09-26-2020 21:00-0400 SaO2% (BldA) [Mass fraction] 99 % Davide Willieagusto Other Phone: [facility] 09-26-2020 21:00-0400 Systolic blood pressure 95 mm[Hg] Davide Chao Other Phone: [facility] 09-26-2020 19:57-0400 Diastolic blood pressure 85 mm[Hg] Generic [facility] Work Phone: [facility] 09-26-2020 19:57-0400 Heart rate 75 /min Generic [facility] Work Phone: [facility] 09-26-2020 19:57-0400 Respiratory rate 16 /min Generic [facility] Work Phone: [facility] 09-26-2020 19:57-0400 Systolic blood pressure 121 mm[Hg] [facility] Work Phone: [facility] 09-26-2020 16:40-0400 Body height 167.6 cm Davide Chao Other Phone: [facility] 09-26-2020 16:40-0400 Body temperature 98.6 [degF] Davide Chao Other Phone: [facility] 09-26-2020 16:40-0400 Body weight 72.7 kg Davide Chao Other Phone: [facility] 09-01-2018 22:18-0400 BP Diastolic 79 mm[Hg] [facility] 09-01-2018 22:18-0400 BP Systolic 108 mm[Hg] [facility] 09-01-2018 22:18-0400 Pulse (Heart Rate) 73 /min [facility] 09-01-2018 22:18-0400 Pulse Oximetry 100 % [facility] 09-01-2018 22:18-0400 Respiratory Rate 16 /min [facility] 09-01-2018 16:13-0400 BMI (Body Mass Index) 21.95 kg/m2 [facility] 09-01-2018 16:13-0400 Body Temperature 98.01 [degF] [facility] 09-01-2018 16:13-0400 Height 167.6 cm [facility] 09-01-2018 16:13-0400 Weight 61.69 kg [facility] Encounters Encounter Date Encounter Type Care Provider Facility Start: 01-03-2025 End: 01-03-[address] Davide Chao MD Work Phone: -[facility] Start: 01-03-2025 End: 01-03-2025 Patient encounter procedure Jeanette Roach CNM -[facility] Work Phone: Start: 12-31-2024 ambulatory Davide Mason y:[facility] Start: 07-29-[address] Davide calloway MD Work Phone: -Cardiovascular Services Work Phone: Start: 12-24-2024 ambulatory DAVIDE CHAO [facility] Start: 12-20-2024 ambulatory Melissa Brasher Fa cility:[facility] Start: 12-20-2024 Non-patient / Non-visit Dr. César Brasher DO -[facility] Start: 12-20-2024 End: 12-20-[address] Davide Chao MD Work Phone: -Radiology [facility] Start: 12-20-2024 End: 12-20-[address] Melissa Brasher DO [facility] Work Phone: Start: 12-20-2024 End: 12-20-2024 ambulatory Melissa Brasher Facility:[facility] Start: 12-06-2024 End: 12-06-2024 Emergency department patient visit TRISTIN DO [facility] Start: 12-03-2024 Non-patient / Non-visit Dr. Bre hutton MD -[facility] Work Phone: Start: 11-23-2024 End: 11-23-2024 Emergency department patient visit Dr. Davide Chao MD Work Phone: -Emergency Department Work Phone: Start: 11-15-2024 End: 11-15-[address] Davide Chao MD Work Phone: [facility] Work Phone: Start: 11-15-2024 End: 11-15-2024 Patient encounter procedure Jeanette Roach CNM -Lab [facility] Start: 11-15-2024 End: 11-15-2024 ambulatory Davide Chao Facility:[facility] Start: 11-11-2024 End: 11-11-[address] Davide Chao MD Work Phone: [facility] Work Phone: Start: 11-11-2024 End: 11-11-[address] Melissa Brasher DO -Laboratory Work Phone: Start: 11-11-2024 End: 11-11-2024 ambulatory Melissa Brasher Facility:[facility] Start: 10-26-2024 End: 10-26-[address] Davide Chao MD Work Phone: [facility] Work Phone: Start: 10-26-2024 End: 10-26-[address] Melissa Brasher DO -Laboratory Work Phone: Start: 10-26-2024 End: 10-26-2024 ambulatory Melissa Brasher Facility:[facility] Start: 09-12-2024 End: 11-12-2024 Follow-up encounter Marina Snell APRN.LEAVE COORDINATOR Work Phone: OB/Gynecology Start: 09-12-2024 End: 09-12-2024 Telephone encounter Davide Chao MD Work Phone: [facility] [place] Comment on above: Faxed to [facility] Start: 09-10-2024 End: 09-10-2024 ambulatory [employer] Work Phone: OB/Gynecology Start: 09-10-2024 End: 09-10-2024 Patient encounter procedure [employer] [facility] OB/Gynecology Start: 09-05-2024 End: 09-05-2024 ambulatory DAVIDE CHAO Facility:[facility] Start: 09-05-2024 End: 09-05-2024 Patient encounter procedure Marina Snell APRN.LEAVE COORDINATOR Work Phone: OB/Gynecology Comment on above: Uterine cyst (Primar y Dx); Adenomyosis of uterus Start: 08-21-2024 End: 08-21-[address] Davide Chao MD Work Phone: [facility] Work Phone: Start: 08-21-2024 End: 08-21-[address] Melissa Brasher DO -Ultrasound, [facility] Work Phone: Start: 08-21-2024 End: 08-21-2024 ambulatory Melissa Brasher Facility:[facility] Start: 08-19-2024 End: 08-19-[address] Davide Chao MD Work Phone: [facility] Work Phone: Start: 08-19-2024 End: 08-19-[address] Melissa Brasher DO -Laboratory, Specimen Work Phone: Start: 08-19-2024 End: 08-19-[address] Melissa Brasher DO -[facility] Work Phone: Start: 08-19-2024 End: 08-19-2024 ambulatory Melissa Brasher Facility:[facility] Start: 08-19-2024 End: 10-19-2024 Follow-up encounter Davide Chao MD Work Phone: [facility] [place] Start: 08-19-2024 End: 08-19-2024 ambulatory Melissa Brasher Facility:[facility] Start: 08-16-2024 End: 08-16-2024 ambulatory DAVIDE CHAO Facility:[facility] Start: 08-15-2024 ambulatory [facility] Start: 08-14-2024 End: 08-15-2024 Telephone encounter Davide Chao MD Work Phone: Coumadin [facility] Comment on above: Results (labs) Start: 08-12-2024 End: 08-12-2024 Follow-up encounter Davide Chao MD Work Phone: [facility] [place] Start: 08-12-2024 End: 08-12-2024 ambulatory DAVIDE CHAO Facility:[facility] Start: 08-06-2024 End: 08-06-2024 Distance Health Davide Chao MD Work Phone: [facility] Comment on above: Elevated blood press ure reading without diagnosis of hypertension (Primary Dx); Fibromyalgia; Anxiety with depression; ADHD (attention deficit hyperactivity disorder), combined type Start: 07-24-2024 End: 07-24-2024 Patient encounter procedure Laura Salinas CNM -Lab, [facility] Start: 07-24-2024 End: 07-24-2024 ambulatory Laura Salinas Facility:[facility] Start: 06-10-2024 End: 06-10-2024 Patient encounter procedure Davide Chao MD Work Phone: [facility] Comment on above: Anxiety (Primary Dx) ; Elevated blood pressure reading without diagnosis of hypertension; ADHD (attention deficit hyperactivity disorder), combined type Start: 06-10-2024 End: 06-10-2024 ambulatory DAVIDE HCAO Facility:[facility] Start: 06-10-2024 End: 06-10-2024 ambulatory Love Castillo NP Facility:[facility] Start: 04-19-2024 End: 04-19-2024 ambulatory [facility] [place] Start: 04-19-2024 End: 04-19-2024 ambulatory [facility] Start: 03-29-2024 End: 03-29-2024 ambulatory Davide Chao MD Work Phone: [facility] Comment on above: Eosinophilic esophag itis (Primary Dx); Anxiety with depression; Dysphagia, unspecified type Start: 03-29-2024 End: 03-29-2024 Telemedicine consultation with patient Davide Chao MD Work Phone: Family [facility] [place] Start: 03-26-2024 End: 03-26-2024 ambulatory Davide Chao MD Work Phone: [facility] Comment on above: Advice Start: 03-22-2024 End: 03-22-2024 Emergency department patient visit RAMON PULLIAM MD [facility] Start: 03-22-2024 End: 03-22-2024 Telephone encounter Davide Chao MD Work Phone: [facility] [place] Comment on above: Chest Pain Start: 03-22-2024 End: 03-22-2024 Emergency department patient visit ANTONETTE Siddiqi MANFRED [facility] Start: 12-28-2023 Telephone encounter Davide deng MD Work Phone: Family [facility] [place] Comment on above: Medication Request Start: 12-08-2023 End: 12-08-2023 ambulatory Davide Chao MD Work Phone: [facility] [place] Comment on above: Anxiety with depress ion (Primary Dx) Start: 12-08-2023 End: 12-08-2023 Telemedicine consultation with patient Davide Chao MD Work Phone: [facility] [place] Start: 11-03-2023 End: 11-03-2023 ambulatory Davide Chao MD Work Phone: Family [facility] [place] Comment on above: Fibromyalgia (Primar y Dx); Anxiety with depression; Near syncope; URI, acute Start: 11-03-2023 End: 11-03-2023 Telemedicine consultation with patient Davide Chao MD Work Phone: [facility] [place] Start: 11-01-2023 Refill Davide haq MD Work Phone: [facility] [place] Comment on above: Refill Request Start: 10-18-2023 Telephone encounter Rayo Nielson PA-C Work Phone: [facility] [place] Start: 10-17-2023 End: 10-17-2023 ambulatory DAVIDE CHAO Facility:[facility] Start: 10-17-2023 End: 10-17-2023 Office outpatient visit 25 minutes Rayo Nielson PA-C Work Phone: [facility] [place] Comment on above: Near syncope (Primar y Dx) Start: 10-03-2023 Non-patient / Non-visit Dr. Lana Chao Work Phone: [facility] Start: 10-03-2023 End: 10-03-2023 Admission to same day surgery center Dr. Davide Chao Work Phone: [facility] Start: 10-03-2023 End: 10-03-[address] Davide Chao Work Phone: [facility] Work Phone: Start: 09-04-2023 End: 09-04-[address] Davide Chao Work Phone: [facility] Work Phone: Start: 08-11-2023 ambulatory Davide haq MD Work Phone: [facility] Comment on above: Supplement Start: 08-10-2023 End: 08-10-2023 Patient encounter procedure Roberto King SONNYLEAVE COORDINATOR Work Phone: [facility] Comment on above: Viral syndrome (Prim james Dx); Urinary frequency Start: 07-13-2023 End: 07-13-[address] Davide Chao Work Phone: [facility] Work Phone: Start: 07-13-2023 End: 07-13-[address] Davide Chao Work Phone: [facility] Work Phone: Start: 07-11-2023 Refill Davide haq MD Work Phone: [facility] Comment on above: Refill Request Start: 06-28-2023 End: 06-28-[address] Davide Chao Work Phone: [facility] Work Phone: Start: 06-28-2023 End: 06-28-[address] Davide Chao Work Phone: [facility]-Laboratory, Specimen Work Phone: Start: 06-28-2023 End: 06-28-[address] Davide Chao Work Phone: [facility] Work Phone: Start: 06-28-2023 End: 06-28-[address] Davide Chao Work Phone: [facility] Work Phone: Start: 06-09-2023 End: 06-09-2023 Subsequent hospital visit by physician Alina Alvarado MD Work Phone: [facility] [employer] Comment on above: Arrived Start: 06-06-2023 End: 06-07-2023 Emergency department patient visit Son Gunderson MD Work Phone: [facility] Comment on above: Vaginal bleeding (Pr imary Dx) Start: 05-31-2023 ambulatory [facility] Start: 05-31-2023 End: 05-31-2023 Subsequent hospital visit by physician Alina Alvarado MD Work Phone: [facility] [employer] Comment on above: Arrived Start: 05-08-2023 Refill Davide haq MD Work Phone: [facility] Comment on above: Refill Request Start: 04-07-2023 Telephone encounter Davide deng MD Work Phone: [facility] Comment on above: Patient Question Start: 03-28-2023 End: 03-28-2023 ambulatory Davide Chao MD Work Phone: [facility] Comment on above: Anxiety with depress ion (Primary Dx); Bilateral leg edema; Anemia, unspecified type; Elevated liver function tests Start: 03-28-2023 End: 03-28-2023 Telemedicine consultation with patient Davide Chao MD Work Phone: [facility] Start: 03-18-2023 Non-patient / Non-visit Dr. Lana Chao Work Phone: [facility] Start: 03-18-2023 End: 03-18-[address] Davide Chao Work Phone: [facility] Work Phone: Start: 03-18-2023 End: 03-18-[address] Davide Chao Work Phone: [facility] Out[facility] Work Phone: Start: 03-18-2023 End: 03-18-2023 [facility] Start: 03-13-2023 Non-patient / Non-visit Dr. Lana Chao Work Phone: [facility] Start: 03-13-2023 End: 03-13-2023 Emergency department patient visit Edy Orellana MD Work Phone: [facility] Comment on above: Hypertension, unspec ified type (Primary Dx); induced hypertension, antepartum Start: 03-12-2023 Non-patient / Non-visit Dr. Lana Chao Work Phone: [facility] Start: 03-11-2023 Non-patient / Non-visit Dr. Lana Chao Work Phone: [facility] Start: 03-10-2023 Non-patient / Non-visit Dr. Lana Chao Work Phone: [facility] Start: 03-09-2023 Non-patient / Non-visit Dr. Lana Chao Work Phone: [facility] Start: 03-09-2023 End: 03-11-2023 Evaluation and management of inpatient Dr. Davide Chao Work Phone: [facility] Work Phone: Start: 03-09-2023 End: 03-09-[address] Davide Chao Work Phone: [facility] [place] Work Phone: Start: 03-08-2023 Non-patient / Non-visit Dr. Lana Chao Work Phone: [facility] Start: 03-08-2023 End: 03-08-[address] Davide Chao Work Phone: [facility], Outpatients Work Phone: Start: 03-04-2023 Non-patient / Non-visit Dr. Lana Chao Work Phone: [facility] Start: 03-04-2023 End: 03-04-[address] Davide Chao Work Phone: [facility] Work Phone: Start: 03-04-2023 End: 03-04-[address] Davide Chao Work Phone: [facility], Outpatients Work Phone: Start: 03-04-2023 End: 03-04-[address] Davide Chao Work Phone: [facility] Work Phone: Start: 03-04-2023 End: 03-04-[address] Davide Chao Work Phone: [facility], Outpatients Work Phone: Start: 03-03-2023 End: 03-03-[address] Davide Chao Work Phone: [facility] Work Phone: Start: 03-01-2023 End: 03-01-[address] Davide Chao Work Phone: [facility], Outpatients Work Phone: Start: 02-28-2023 End: 02-28-[address] Davide Chao Work Phone: [facility] [place] [place] Work Phone: Start: 02-28-2023 End: 02-28-[address] Davide Chao Work Phone: [facility] Work Phone: Start: 02-24-2023 End: 02-24-[address] Davide Chao Work Phone: [facility] Work Phone: Start: 02-22-2023 End: 02-22-[address] Davide Chao Work Phone: [facility] Work Phone: Start: 02-22-2023 End: 02-22-[address] Davide Chao Work Phone: [facility] Work Phone: Start: 02-18-2023 Non-patient / Non-visit Dr. Lana Chao Work Phone: [facility] Start: 02-18-2023 End: 02-18-[address] Davide Chao Work Phone: [facility] Work Phone: Start: 02-18-2023 End: 02-18-[address] Davide Chao Work Phone: [facility], Outpatients Work Phone: Start: 02-17-2023 End: 02-17-[address] Davide Chao Work Phone: [facility]-Laboratory, Specimen Work Phone: Start: 02-17-2023 End: 02-17-[address] Davide Chao Work Phone: [facility] Work Phone: Start: 02-02-2023 End: 02-02-[address] Davide Chao Work Phone: [facility] Work Phone: Start: 02-01-2023 End: 02-01-[address] Davide Chao Work Phone: [facility] Work Phone: Start: 01-30-2023 Non-patient / Non-visit Dr. Lana Chao Work Phone: [facility] Start: 01-30-2023 Telephone encounter Davide deng MD Work Phone: [facility] [place] Comment on above: Pain, Back; yellowin g of sclera Start: 01-30-2023 End: 01-30-[address] Davide Chao Work Phone: [facility] Work Phone: Start: 01-30-2023 End: 01-30-[address] Davide Chao Work Phone: [facility] Work Phone: Start: 01-27-2023 End: 01-27-2023 Patient encounter procedure Marilyn Gruber APRN.LEAVE COORDINATOR Work Phone: [facility] Comment on above: STD (sexually transm itted disease) (Primary Dx) Start: 01-23-2023 End: 01-23-2023 Emergency department patient visit Dr. Davide Chao Work Phone: [facility]-Emergency Department Work Phone: Start: 01-16-2023 Non-patient / Non-visit Dr. Lana Chao Work Phone: [facility] Start: 01-16-2023 End: 01-16-[address] [facility] [place] Work Phone: Start: 01-16-2023 End: 01-16-[address] Davide Chao Work Phone: [facility] Work Phone: Start: 12-21-2022 End: 12-21-[address] Davide Chao Work Phone: [facility] Work Phone: Start: 11-29-[address] Davide Chao Facility:[id number] Start: 11-29-2022 Patient encounter procedure [facility]ao Work [facility] Work Phone: Start: 11-25-2022 End: 11-25-[address] Davide Chao Work Phone: [facility] Work Phone: Start: 11-11-2022 End: 11-11-[address] Davide Chao Work Phone: [facility] Work Phone: Start: 11-11-2022 End: 11-11-[address] Davide Chao Facility:[id number] Start: 11-11-2022 End: 11-11-2022 Subsequent hospital visit by physician Andry Rueda MD Work Phone: [id number] Comment on above: Lower abdominal pain , unspecified; Antepartum hemorrhage, unspecified, second trimester; Maternal care for other rhesus isoimmunization, second trimester, not applicable or unspecified; 21 weeks gestation of Start: 11-10-[address] Davide Chao Facility:[id number] Start: 11-04-2022 ambulatory ALINA ALVARADO [facility] Start: 11-04-2022 End: 11-04-2022 Subsequent hospital visit by physician Alina Alvarado MD Work Phone: [facility] [employer] Comment on above: Arrived Start: 11-04-2022 End: 11-04-[address] Davide Chao Work Phone: [facility] Work Phone: Start: 11-04-2022 End: 11-04-[address] Davide Chao Work Phone: [facility] Start: 11-03-2022 AQUATICFU4, Provider : Katalina Roach, Status: Pen, Time: 11:30 AM Davide Chao Work Phone: [facility] Work Phone: Start: 11-01-2022 Patient encounter procedure Davide Chao Work Phone: [facility] Work Phone: Start: 11-01-[address] Davide Chao Facility:[id number] Start: 10-28-2022 End: 10-28-[address] Davide Chao Work Phone: [facility] [place] Start: 10-18-2022 Patient encounter procedure Davide Chao Work Phone: [facility] Work Phone: Start: 10-18-[address] Davide Chao Facility:[id number] Start: 10-10-2022 Telephone encounter Davide deng MD Work Phone: [facility] Comment on above: Referral Request Start: 10-10-2022 End: 10-10-2022 ambulatory DAVIDE CHAO [facility] Start: 09-28-2022 End: 09-28-[address] Davide Chao Work Phone: [facility] Work Phone: Start: 09-28-2022 End: 09-28-[address] Davide Chao Work Phone: [facility]-Laboratory, Specimen Start: 09-28-2022 End: 09-28-[address] Davide Chao Work Phone: [facility] Start: 09-11-2022 End: 09-12-2022 Emergency department patient visit Byron Aranda [facility] Emergency 09 Start: 09-10-2022 End: 09-11-2022 Emergency department patient visit Dr. John Valladares Facility:[id number] Start: 08-17-2022 End: 08-17-[address] Davide Chao Work Phone: [facility] Work Phone: Start: 08-17-2022 End: 08-17-[address] Davide Chao Work Phone: [facility]-Laboratory, Specimen Start: 08-17-2022 End: 08-17-[address] Davide Chao Work Phone: [facility] Start: 08-10-[address] Davide Chao Facility:[id number] Start: 08-03-2022 End: 08-03-[address] Davide Chao Work Phone: [facility]-Ultrasound, [facility] Start: 08-02-2022 End: 08-02-2022 Emergency department patient visit ANDRY ECKERT [facility] Start: 07-30-2022 End: 07-31-2022 ambulatory DAVIDE Shirley [facility] Start: 07-30-2022 End: 07-30-2022 Subsequent hospital visit by physician Davide Chao Work Phone: [facility] Start: 07-29-2022 End: 07-29-[address] Davide Chao Work Phone: [facility] Work Phone: Start: 07-29-2022 End: 07-29-[address] Davide Chao Work Phone: [facility] Start: 07-28-2022 End: 07-30-2022 [facility] Start: 07-28-2022 End: 07-30-2022 Subsequent hospital visit by physician [facility] Ultrasound Room Andrés [facility] Comment on above: Acute bilateral low back pain with right-sided sciatica; , unspecified gestational age , unspecifi ed gestational age Start: 07-26-2022 End: 07-26-2022 Emergency department patient visit [facility] Start: 07-14-2022 Emergency department patient visit [facility] Start: 07-13-2022 End: 07-14-2022 Emergency department patient visit Nery Esparza MD Work Phone: [facility] ED Comment on above: Back strain, initial encounter (Primary Dx) Start: 06-21-2022 End: 06-21-2022 ambulatory Davide Chao MD Work Phone: [facility] Comment on above: Chronic insomnia (Pr imary Dx); Anxiety with depression; Gastritis without bleeding, unspecified chronicity, unspecified gastritis type Start: 06-21-2022 End: 06-21-2022 Telemedicine consultation with patient Davide Chao MD Work Phone: [facility] Start: 05-09-2022 End: 05-09-2022 Emergency department patient visit DIPAK MANCINI [facility] Start: 03-04-2022 End: 03-04-2022 ambulatory Davide Chao MD Work Phone: [facility] Comment on above: Anxiety with depress ion (Primary Dx) Start: 03-04-2022 End: 03-04-2022 Telemedicine consultation with patient Davide Chao MD Work Phone: [facility] Start: 03-03-2022 ambulatory Davide haq MD Work Phone: [facility] [place] Comment on above: Medications Start: 11-29-2021 E-mail encounter fro m caregiver [facility] Provider [facility] Start: 11-29-2021 Follow-up encounter [facility] Provider [facility] [place] Comment on above: Follow up Start: 11-29-2021 End: 11-29-2021 ambulatory Davide Chao MD Work Phone: [facility] [place] Comment on above: Anxiety Start: 11-29-2021 End: 11-29-2021 Telemedicine consultation with patient Davide Chao MD Work Phone: [facility] Start: 11-21-2021 End: 11-21-[address] [facility] Start: 11-21-2021 End: 11-21-2021 Office outpatient visit 15 minutes [facility] Work Phone: [facility] Comment on above: Non-recurrent acute suppurative otitis media of left ear without spontaneous rupture of tympanic membrane (Primary Dx) Start: 11-16-[address] Davide Chao Facility:[id number] Start: 10-12-2021 End: 10-14-2021 Evaluation and management of inpatient Andry Rueda [facility] 405 Start: 10-11-2021 Chart Update Davide haq Work Phone: [facility] Work Phone: Start: 10-08-2021 ambulatory MD ANDRY RUEDA Facility:[id number] Start: 10-01-2021 Office outpatient vi sit 15 minutes Davide Chao Work Phone: [facility] [facility] Work Phone: Start: 10-01-2021 ambulatory MD ANDRY RUEDA Facility:[id number] Start: 09-27-2021 Chart Update Davide haq Work Phone: [facility] [address] [place] Work Phone: Start: 09-24-2021 Office outpatient vi sit 10 minutes Davide Oglesby Zhanna Work Phone: [facility] [address] [place] Work Phone: Start: 09-24-[address] [id number] Start: 09-20-2021 Chart Update Davide Reny Cristino ock Work Phone: [facility] [address] [place] Work Phone: Start: 09-17-[address] Davide Chao Facility:[id number] Start: 09-10-2021 Office outpatient vi sit 15 minutes Davide Chao Work Phone: [facility] [address] [place] Work Phone: Start: 09-10-[address] Davide Chao Facility:[id number] Start: 08-31-2021 AUDIT Davide Gregg ock Work Phone: [facility] [address] [place] Work Phone: Start: 08-27-[address] Davide Chao Facility:[id number] Start: 08-27-2021 Office outpatient vi sit 15 minutes Davide Chao Work Phone: [facility] [address] [place] Work Phone: Start: 08-13-2021 ambulatory MD ANDRY RUEDA Facility:[id number] Start: 08-06-2021 Chart Update Davide Gregg ock Work Phone: [facility] [address] [place] Work Phone: Start: 07-30-2021 Office outpatient vi sit 15 minutes Davide Chao Work Phone: [facility] [address] [place] Work Phone: Start: 07-12-2021 Office outpatient vi sit 15 minutes Davide Chao Work Phone: [address] Work Phone: Start: 06-23-2021 End: 06-23-2021 Subsequent hospital visit by physician Gallito Couch MD Work Phone: [facility] Start: 05-17-2021 End: 05-21-2021 ambulatory YURIIRIVNG MOORE RICHARD [facility] Start: 05-17-2021 End: 05-17-2021 Office outpatient new 45 minutes Maricel Simeon MD Work Phone: [facility] Comment on above: Palpitations (Primar y Dx) Start: 05-12-2021 End: 05-13-2021 Emergency department patient visit [facility] Start: 05-09-2021 End: 05-10-2021 Emergency department patient visit [facility] Start: 03-16-2021 End: 03-17-2021 Emergency department patient visit Cheyanne Izaguirre [facility] Emergency 10 Start: 03-01-2021 End: 03-01-2021 Emergency department patient visit Son Gunderson [facility] Emergency 12 Start: 02-12-2021 Patient requested procedure [facility] Provider [facility] Work Phone: Start: 12-14-2020 End: 12-15-2020 Emergency department patient visit Cheyanne Izaguirre [facility] Emergency 04 Start: 12-08-2020 End: 12-08-2020 [facility] Start: 09-27-2020 End: 09-27-2020 Emergency department patient visit [facility] Start: 09-27-2020 End: 09-27-2020 Emergency department patient visit Barbara Sandoval MD Work Phone: [facility] Emergency Department Start: 09-26-2020 End: 09-26-2020 ambulatory [facility] Start: 09-26-2020 End: 09-26-2020 Evaluation and management of inpatient Generic [facility] Work Phone: [facility] Intermediate Start: 09-26-2020 End: 09-26-2020 Emergency department patient visit Rm DuranSusana Veras [facility] Emergency 02 Start: 08-12-2020 End: 08-12-2020 Transcribe Orders Davide Chao Work Phone: [facility] Neurological Physicians Comment on above: Cervical pain (Prima ry Dx) Start: 09-18-2018 Emergency department patient visit UNKNOWN PROVIDER [facility] Start: 09-01-2018 End: 09-01-2018 Emergency department patient visit Tony Roe Egal Work Phone: [facility] Emergency Department Comment on above: Kidney stone on left side (Primary Dx) Start: 08-31-2018 End: 09-01-2018 Emergency department patient visit LAMARGARTH Abel KAYE [facility] Start: 08-22-2018 Emergency department patient visit UNKNOWN PROVIDER [facility] Start: 08-17-2018 End: 08-17-2018 ambulatory UNKNOWN PROVIDER Facility:[facility] Start: 07-12-2018 End: 07-12-2018 Patient encounter procedure RENETTAROMINA SOW Facility:[facility] Start: 06-21-2018 End: 06-21-2018 Patient encounter procedure RENETTA ADRIANAY Facility:[facility] Start: 11-25-2017 End: 11-25-2017 [facility] Procedures Date Procedure Procedure Detail Performing Clinician Start: 12-20-[address] Davide Chao MD Work Phone: Start: 11-23-2024 X-ray of chest, PA and lateral views Dr. Davide Chao MD Work Phone: Start: 11-23-[address] Davide Chao MD Work Phone: Start: 11-11-[address] Davide Chao MD Work Phone: Comment on above: Follicular phase 0.1 - 0.9 Luteal phase 1.8 - 23.9 Ovulation phase 0.1 - 12.0 First trimester 11.0 - 44.3 Second trimester 25.4 - 83.3 Third trimester 58.7 - 214.0 Postmenopausal 0.0 - 0.1Performed at: CB - [facility] [id number] [place], [place] [id number] Director: Maximilian Hunt PhD, Phone: [phone] Start: 09-10-2024 Us pelvic nonobstetric real-time image complete Marina Snell APRN.LEAVE COORDINATOR Work Phone: Start: 08-21-[address] [...] Chao MD Work Phone: Start: 03-22-2024 Urinalysis TRISTIN EDUARDO Comment on above: Result Comment: URINALYSIS Performed By: #### 2 [id number] ####[facility],[address] [place] [address] Start: 10-03-[address] Davide Chao Work Phone: Start: 08-10-2023 INFLUENZA A&B MOLECULAR (POC) Roberto Andrea APRN.LEAVE COORDINATOR Work Phone: Start: 08-10-2023 Urnls dip stick/tablet rgnt auto w/o microscopy Roberto Andrea APRN.LEAVE COORDINATOR Work Phone: Start: 07-13-[address] [...] 03-18-2023 URINALYSIS WITH REFLEX MICROSCOPIC AND CULTURE DAVIDE CHAO Start: 03-18-2023 CBC W Auto Differential panel - Blood DAVIDE CHAO Start: 03-13-2023 DISCHARGE PATIENT DAVIDE CHAO Start: 03-13-2023 INITIATE REQUEST TO ANOTHER FACILITY DAVIDE CHAO Start: 03-13-2023 Bacteria identified in Urine by Culture DAVIDE CHAO Start: 03-13-2023 URINALYSIS MICROSCOPIC ONLY DAVIDE HAQ Start: 03-13-2023 URINALYSIS WITH REFLEX MICROSCOPIC AND CULTURE DAVIDE CHAO Start: 03-13-2023 XR CHEST 1 VIEW DAVIDE CHAO Start: 03-13-2023 aPTT in Blood by Coagulation assay DAVIDE CHAO Start: 03-13-2023 Basic metabolic 2000 panel - Serum or Plasma DAVIDE CHAO Start: 03-13-2023 C-reactive protein DAVIDE CHAO Start: 03-13-2023 CBC W Auto Differential panel - Blood DAVIDE CHAO Start: 03-13-2023 Hepatic function 2000 panel - Serum or Plasma DAVIDE CHAO Start: 03-13-2023 Lactate [Moles/volume] in Serum or Plasma DAVIDE CHAO Start: 03-13-2023 Magnesium [Mass/volume] in Serum or Plasma DAVIDE CHAO Start: 03-13-2023 Natriuretic peptide B [Mass/volume] in Blood DAVIDE CHAO Start: 03-13-2023 Phosphate [Mass/volume] in Serum or Plasma DAVIDE CHAO Start: 03-13-2023 PROTIME-INR DAVIDE CHAO Start: 03-13-2023 TROPONIN I, HIGH SENSITIVITY DAVIDE CHAO Start: 03-13-2023 EXTRA URINE GILBERT TUBE DAVIDE [...] Post Bilateral Tubal Occulsion (Bilateral) Dr. Davide Chao Work Phone: Start: 03-04-2023 Ultrasonography for biophysical [...] biophysical profile without non-stress testing Dr. Davide hCao Work Phone: Start: 01-30-2023 Ultrasonography for biophysical [...] on above: Performed By: #### T+S #### [address] [address] Start: 11-11-2022 Antibody screen Andry Rueda MD [...] Start: 08-03-[address] Davide Chao Work Phone: Start: 07-30-2022 Gonadotropin chorionic quantitative Unknown Provider Result Start: 07-28-2022 Us preg uterus real time w/image dcmtn transvag Yainv Pederson MD Work Phone: Start: 07-28-2022 Gonadotropin chorionic quantitative Yaniv Pederson MD Work Phone: Start: 07-13-2022 Ct lumbar spine w/o contrast material Nery Esparza MD Work Phone: Start: 07-13-2022 Urine test visual color cmprsn meths Nery Esparza MD Work Phone: Start: 11-16-2021 care only separate procedure Davide Chao Work Phone: Start: 10-12-2021 Rhogam Andry Rueda Start: 06-23-2021 RAPID TOX SCREEN WITH [facility]LEX [facility] Gallito Couch MD Work Phone: Start: 06-23-2021 Urinalysis, reagent strip without microscopy Gallito Couch MD Work Phone: Start: 05-17-2021 Referral to cardiology service Maricel Simeon MD Work Phone: Start: 12-14-2020 End: 12-14-2020 EKG impression Deyvi Peter Start: 12-08-2020 End: 12-08-2020 EKG impression Davide [...] Phone: Start: 09-01-2018 LIGHT GREEN TOP Tony Bhupinder Egal Work Phone: Start: 09-01-2018 Lipase [Enzymatic [...] of 2) Zoster Vaccines (1 of 2) [facility] Start: 08-19-2029 Screening for malignant neoplasm of cervix Cervical Cancer Screening [facility] Start: 05-04-2026 DTaP/Tdap/Td vaccine (2 - Td or Tdap) DTaP/Tdap/Td vaccine (2 - Td or Tdap) [facility] Start: 05-04-2026 DTaP/Tdap/Td Vaccines (2 - Td or Tdap) DTaP/Tdap/Td Vaccines (2 - Td or Tdap) [facility] Start: 05-04-2026 Tetanus vaccination [facility] Start: 05-04-2026 Urine microalbumin profile [facility] Start: 01-07-2026 HPV TESTING HPV TESTING [facility] Start: 01-07-2026 PAP TESTING PAP TESTING [facility] Start: 01-07-2026 Screening for malignant neoplasm of cervix [facility] Start: 02-03-2025 Influenza vaccination Influenza Vaccine (Season Ended) [facility] Start: 01-03-2025 Choriogonadotropin ( test) [Presence] in Serum or Plasma [facility] Start: 01-03-2025 Serum progesterone measurement [facility] Start: 11-23-2024 [facility] Start: 11-23-2024 End: 11-23-2024 [facility] Start: 09-10-2024 End: 09-10-2024 ambulatory 09/10/2024 2:00 PM EDT Procedure OB/Gynecology [address] [place] [address] Remote, Reject Opener And Filler [facility] [address] [place] [address] Uterine cyst [N85.8]; Adenomyosis of uterus [N80.03] OB/Gynecology Comment on above: Uterine cyst [N85.8]; Adenomyosis of ysleta del sur lizzy [N80.03] Start: 09-09-2024 End: 09-09-2024 Patient encounter procedure 09/09/2024 12:40 PM EDT Office Visit [facility] [address] [place], [place] [id number] Davide Chao MD [address] [place], [place] [address] 3 month follow up [facility] [place] Comment on above: 3 month follow up Start: 09-05-2024 End: 09-05-2025 US Pelvis PELVIC US [facility] Anc Imaging Routine Uterine cyst Adenomyosis of uterus Expected: 09/05/2024, Expires: 09/05/2025 [facility] Work Phone: Comment on above: Expected: 09/05/2024, Expires: 6 Start: 08-15-2024 End: 11-14-2024 Folate [Mass/volume] in Serum or Plasma FOLATE, SERUM Lab Routine Fatigue, unspecified type Expected: 08/15/2024, Expires: 11/14/2024 [facility] Comment on above: Expected: 08/15/2024, Expires: 5 Start: 08-15-2024 End: 11-14-2024 Iron and Iron binding capacity panel - Serum or Plasma IRON AND TIBC Lab Routine Fatigue, unspecified type Expected: 08/15/2024, Expires: 11/14/2024 [facility] Work Phone: Comment on above: Expected: 08/15/2024, Expires: Start: 03-29-2024 End: 03-29-2024 ambulatory 03/29/2024 11:40 AM EDT [facility] [address] [place] [address] Davide Chao MD [address] [place] [address] Chest pain, ER visit-nothing found, can't swallow [facility] [place] Comment on above: Chest pain, ER visit-nothing found, can' t swallow Start: 02-04-2024 Covid-19 Vaccine ( season) Covid-19 Vaccine ( season) [facility] Start: 02-04-2024 Influenza vaccination Influenza Vaccine (#1) [facility] [facility] Start: 10-17-2023 End: 01-16-2024 Basic metabolic 2000 panel - Serum or Plasma [facility] Work Phone: Comment on above: Expected: 10/17/2023, Expires: 4 Start: 10-17-2023 End: 01-16-2024 Thyrotropin [Units/volume] in Serum or Plasma [facility] Comment on above: Expected: 10/17/2023, Expires: Start: 10-03-2023 Patient discharge [facility] Start: 10-03-2023 Procedure discontinued [facility] Start: 10-03-2023 Ambulation without limitation [facility] Start: 10-03-2023 Medical regimen orders management [facility] Start: 10-03-2023 Medication education [facility] Start: 10-03-2023 Taking patient vital signs [facility] Start: 10-03-2023 Vital signs measurements [facility] Start: 10-03-2023 [facility] Start: 06-28-2023 Assay of thyroid stimulating hormone tsh ASSAY THYROID STIM HORMONE [facility] Start: 06-28-2023 Blood count complete auto&auto difrntl wbc COMPLETE CBC W/AUTO DIFF WBC [facility] Start: 06-28-2023 Collection venous blood venipuncture ROUTINE VENIPUNCTURE [facility] Start: 06-19-2023 End: 06-19-2023 Patient encounter procedure 06/19/2023 1:00 PM EST Office Visit [facility] [address] [place] [id number] Alina Alvarado MD [address] [place] [address] [facility] Start: 06-09-2023 End: 06-09-2023 Patient encounter procedure 06/09/2023 1:00 PM EST Appointment [facility] [address] [place] [address] Alina Alvarado MD [address] [place] [address] [facility] Start: 06-06-2023 End: 06-06-2023 Patient encounter procedure 06/06/2023 1:45 PM EST Office Visit [facility] [address] [place] [address] Alina Alvarado MD [address] [place] [address] [facility] Start: 03-28-2023 End: 06-27-2023 CBC panel - Blood by Automated count CBC Lab Routine Anemia, unspecified type Expected: 03/28/2023, Expires: 06/27/2023 [facility] Work Phone: Comment on above: Expected: 03/28/2023, Expires: 4 Start: 03-28-2023 End: 06-27-2023 Comprehensive metabolic 2000 panel - Serum or Plasma COMP METABOLIC PANEL Lab Routine Anemia, unspecified type Elevated liver function tests Expected: 03/28/2023 (Approximate), Expires: 06/27/2023 [facility] Work Phone: Comment on above: Expected: 03/28/2023 (Approximate), Expi res: 06/27/2023 Start: 03-28-2023 End: 06-27-2023 Natriuretic peptide.B prohormone N-Terminal [Mass/volume] in Serum or Plasma NT PRO BNP Lab Routine Bilateral leg edema Anemia, unspecified type Elevated liver function tests Expected: 03/28/2023, Expires: 06/27/2023 [facility] Work Phone: Comment on above: Expected: 03/28/2023, Expires: 4 Start: 03-18-2023 Vital signs measurements [facility] Start: 03-18-2023 End: 03-18-2023 [facility] Start: 03-18-2023 Patient discharge [facility] Start: 03-11-2023 Patient discharge [facility] Start: 03-10-2023 Administration of blood product [facility] Start: 03-10-2023 Administration of medication [facility] Start: 03-10-2023 Application of ice collar, cap or bag [facility] Start: 03-10-2023 Catheterization of vein [facility] Start: 03-10-2023 Introduction of urinary catheter [facility] Start: 03-10-2023 Measuring intake and output [facility] Start: 03-10-2023 Notification of physician [facility] Start: 03-10-2023 Procedure discontinued [facility] Start: 03-10-2023 Provision of activity privileges [facility] Start: 03-10-2023 Vital signs measurements [facility] Start: 03-10-2023 [facility] Start: 03-10-2023 Consultation [facility] Start: 03-09-2023 Admission procedure [facility] Start: 03-08-2023 monitoring labor phys written report MONITOR W/REPORT [facility] Start: 03-08-2023 nonstress test NON-STRESS TEST [facility] Start: 03-08-2023 Urnls dip stick/tablet reagent auto microscopy URINALYSIS AUTO W/SCOPE [facility] Start: 03-08-2023 Nonstress test [facility] Start: 03-08-2023 Obstetric monitoring [facility] Start: 03-08-2023 Vital signs measurements [facility] Start: 03-08-2023 [facility] Start: 03-08-2023 Patient discharge [facility] Start: 03-04-2023 [facility] Start: 03-04-2023 Nonstress test [facility] Start: 03-04-2023 Biophysical profile panel US [facility] Start: 03-04-2023 Ultrasonography for biophysical profile without non-stress testing Biophysical Prof W/O Non Stres [facility] Start: 03-04-2023 Obstetric monitoring [facility] Start: 03-04-2023 Vital signs measurements [facility] Start: 03-04-2023 [facility] Start: 03-04-2023 Patient discharge [facility] Start: 03-04-2023 [facility] Start: 03-01-2023 Nonstress test [facility] Start: 03-01-2023 Obstetric monitoring [facility] Start: 03-01-2023 Vital signs measurements [facility] Start: 03-01-2023 [facility] Start: 02-18-2023 Genital Culture Genital Culture [facility] Start: 02-18-2023 Microscopic observation [Identifier] in Unspecified specimen by Gram stain Gram Stain [facility] Start: 02-18-2023 Source specific culture [facility] Start: 02-18-2023 Procedure [facility] Start: 02-18-2023 Administration of blood product [facility] Start: 02-18-2023 Nonstress test [facility] Start: 02-18-2023 Obstetric monitoring [facility] Start: 02-18-2023 Vital signs measurements [facility] Start: 02-18-2023 [facility] Start: 02-18-2023 Chlamydia deoxyribonucleic acid detection [facility] Start: 02-18-2023 Patient discharge [facility] Start: 02-03-2023 Covid-19 Vaccine ( season) Covid-19 Vaccine () [facility] Start: 02-03-2023 Influenza vaccination [facility] Start: 01-30-2023 Nonstress test [facility] Start: 01-30-2023 Obstetric monitoring [facility] Start: 01-30-2023 Vital signs measurements [facility] Start: 01-30-2023 [facility] Start: 01-30-2023 Patient discharge [facility] Start: 01-24-2023 [facility] Start: 01-23-2023 Troponin I measurement [facility] Start: 01-23-2023 [facility] Start: 01-16-2023 Following clinical pathway protocol [facility] Start: 01-16-2023 Iv infusion hydration initial 31 min-1 hour HYDRATION IV INFUSION INIT [facility] Start: 12-21-2022 Patient referral [facility] Work Phone: Start: 11-25-2022 Patient referral [facility] Work Phone: Start: 11-17-2022 OLIVER, Provider: Sylvia Calle, Status: Pen, Time: 11:30 AM OLIVER, Provider: Sylvia Calle, Status: Pen, Time: 11:30 AM [facility] Work Phone: Start: 11-15-2022 AQUATICFU4, Provider: Katalina Roach, Status: Pen, Time: 11:30 AM AQUATICFU4, Provider: Katalina Roach, Status: Pen, Time: 11:30 AM [facility] Work Phone: Start: 11-10-2022 AQUATICFU4, Provider: Katalina Roach, Status: Pen, Time: 11:30 AM AQUATICFU4, Provider: Katalina Roach, Status: Pen, Time: 11:30 AM [facility] Work Phone: Start: 11-08-2022 AQUATICFU4, Provider: Katalina Roach, Status: Pen, Time: 11:30 AM AQUATICFU4, Provider: Katalina Roach, Status: Pen, Time: 11:30 AM [facility] Work Phone: Start: 10-28-2022 Patient referral [facility] Work Phone: Start: 08-17-2022 Liquid based cervical cytology screening [facility] Start: 02-15-2022 Patient encounter procedure ANNUAL, Provider: Andry Rueda, Status: Pen, Time: 11:00 AM [employer] [facility] Work Phone: Start: 02-03-2022 Influenza vaccination [facility] Start: 01-03-2022 Influenza vaccination Flu vaccine (#1) [facility] Start: 11-16-2021 Patient encounter procedure [facility] Start: 11-16-2021 PPV, Provider: Andry Rueda, Status: Pen, Time: 2:00 PM PPV, Provider: Andry Rueda, Status: Pen, Time: 2:00 PM [employer] [facility] Work Phone: Start: 10-12-2021 End: 10-13-2022 [facility] Comment on above: Consult provider prior to [...] fentaNYL 2 mcg/mL - Bupivacaine 0.0625% PCEA ([facility] ONLY) ; DEMAND/ PCEA Dose = 4BASAL/ Continuous Rate = 10One Hour Dose Limit = 34 mL/hr mL per hourNotes from Pharmacy: [Fentanyl 2 mcg/mL - Bupivacaine 0.0625%] Start: 12-Oct-2021 End: 12-Oct-2022 Ordered: 12-Oct-2021 Osiel Valentin [facility] Start: 10-08-2021 EPVOB, Provider: Andry Rueda, Status: Pen, Time: 10:30 AM EPVOB, Provider: Andry Rueda, Status: Pen, Time: 10:30 AM [place] [address] [employer] Work Phone: Start: 10-01-2021 EPVOB, Provider: Andry Rueda, Status: Pen, Time: 11:15 AM EPVOB, Provider: Andry Rueda, Status: Pen, Time: 11:15 AM [place] [address] [employer] Work Phone: Start: 09-26-2021 Diabetes mellitus screening Diabetes Screening [facility] Start: 09-24-2021 EPVOB, Provider: Anil Panchal, Status: Pen, Time: 11:15 AM EPVOB, Provider: Anil Panchal, Status: Pen, Time: 11:15 AM [facility] Work Phone: Start: 09-17-2021 EPVOB, Provider: Andry Rueda, Status: Pen, Time: 11:30 AM EPVOB, Provider: Andry Rueda, Status: Pen, Time: 11:30 AM [facility] Work Phone: Start: 09-10-2021 EPVOB, Provider: Andry Rueda, Status: Pen, Time: 11:00 AM EPVOB, Provider: Andry Rueda, Status: Pen, Time: 11:00 AM [facility] Work Phone: Start: 08-13-2021 EPVOB, Provider: Andry Rueda, Status: Pen, Time: 9:00 AM EPVOB, Provider: Andry Rueda, Status: Pen, Time: 9:00 AM [employer] [facility] Work Phone: Start: 07-30-2021 EPVOB, Provider: Andry Rueda, Status: Pen, Time: 11:15 AM EPVOB, Provider: Andry Rueda, Status: Pen, Time: 11:15 AM [facility] Work Phone: Start: 07-20-2021 End: 07-20-2021 Patient encounter procedure 07/20/2021 Office Visit Cardiology Yuri Palencia MD [address] [place] [address] [facility] Start: 06-15-2021 Screening for malignant neoplasm of cervix [facility] Start: 05-17-2021 End: 07-18-2022 Echocardiography Echocardiogram complete Echocardiography Routine Palpitations Expected: 05/17/2021, Expires: 07/18/2022 [facility] Work Phone: Comment on above: Expected: 05/17/2021, Expires: Start: 05-17-2021 End: 07-18-2022 Extended Holter Monitor (3-7 days) Extended Holter Monitor (3-7 days) [facility] Routine Palpitations Expected: 05/17/2021, Expires: 07/18/2022 [facility] Comment on above: Expected: 05/17/2021, Expires: 3 Start: 02-03-2021 Influenza vaccination [facility] Start: 2020 Screening for malignant neoplasm of cervix HPV (without or with Pap) [facility] Start: 02-04-2020 Influenza vaccination Sequential Influenza Vaccine (#1) [facility] Start: 02-04-2020 Influenza vaccination given Sequential Influenza Vaccine (#1) [facility] Start: 02-03-2018 Influenza vaccination given SEQUENTIAL INFLUENZA VACCINE (#1) [facility] Start: 2011 Screening for malignant neoplasm of cervix [facility] Start: 2009 Hepatitis A Vaccines (1 of 2 - Risk 2-dose series) Hepatitis A Vaccines (1 of 2 - Risk 2-dose series) [facility] Start: 2009 Hepatitis B Vaccine (1 of 3 - 19+ 3-dose series) Hepatitis B Vaccine (1 of 3 - 19+ 3-dose series) [facility] Start: 2009 Third diphtheria, tetanus and acellular pertussis (DTaP) vaccination TDAP (ADULT) [facility] Start: 2008 Hepatitis C antibody, confirmatory test Hepatitis C Screening [facility] Start: 2008 Hepatitis C screening [facility] Start: 2008 Tetanus vaccination TETANUS [facility] Start: 2006 COVID-19 Vaccine (1 of 2) COVID-19 Vaccine (1 of 2) [facility] Start: 2006 COVID-19 Vaccine (1) COVID-19 Vaccine (1) [facility] Start: 2005 HIV screening [facility] Start: 2002 Adolescent depression screening assessment Depression Screening (PHQ9) [facility] Start: 2002 Depression Screen Depression Screen [facility] Start: 2002 Depression screening using PHQ-9 (Patient Health Questionnaire 9) score [facility] Start: 1995 COVID-19 Vaccine (#1) COVID-19 Vaccine (#1) [facility] Start: 1995 COVID-19 Vaccine (1) COVID-19 Vaccine (1) [facility] Start: 1993 History and physical examination, annual for health maintenance Wellness Visit [facility] Start: 1991 MMR Vaccines (1 of 1 - Standard series) MMR Vaccines (1 of 1 - Standard series) [facility] Start: 1991 Varicella vaccination Varicella Vaccines (1 of 2 - 2-dose childhood series) [facility] Start: 1991 Varicella vaccine (1 of 2 - 2-dose childhood series) Varicella vaccine (1 of 2 - 2-dose childhood series) [facility] Start: 1990 COVID-19 VACCINE (#1) COVID-19 VACCINE (#1) [facility] Start: 1990 HEPATITIS B (1 of 3 - 3-dose series) HEPATITIS B (1 of 3 - 3-dose series) [facility] Start: 1990 Hepatitis B vaccination HEP B VACCINE (1 of 3 - 3-dose series) [facility] Start: 1990 Hepatitis B Vaccine (1 of 3 - 3-dose series) Hepatitis B Vaccine (1 of 3 - 3-dose series) [facility] Start: 1990 Hepatitis B Vaccines (1 of 3 - 3-dose series) Hepatitis B Vaccines (1 of 3 - 3-dose series) [facility] Start: 1990 Hepatitis C antibody, confirmatory test HEPATITIS C VIRUS SCREENING [facility] Start: 1990 Hepatitis C screening HEPATITIS C VIRUS SCREENING [facility] Start: 1990 HIV screening HIV Screening [facility] Start: 1990 Lipid panel Lipid Panel [facility] Start: 1990 Screening for malignant neoplasm of cervix PAP SMEAR [facility] Start: 1990 Tetanus vaccination TETANUS EVERY 10 YR [facility] Start: 1990 Yearly Adult Physical Yearly Adult Physical [facility] End: 03-13-2023 Bacteria identified in Urine by Culture [facility] Work Phone: Comment on above: Once (Lab) for 1 Occurrences starting until 03/13/2023 End: 06-07-2023 Bacteria identified in Urine by Culture Urine Culture Microbiology Routine Once (Lab) for 1 Occurrences starting 06/07/2023 until 06/07/2023 [facility] Work Phone: Comment on above: Once (Lab) for 1 Occurrences starting until 06/07/2023 Bacteria identified in Urine by Culture Urine Culture Microbiology Routine 06/06/2023 11:41 PM EST [facility] Work Phone: End: 06-06-2023 Blood type and Indirect antibody screen panel - Blood [facility] Work Phone: Comment on above: Once (Lab) for 1 Occurrences starting until 06/06/2023 CBC W Auto Different ial panel - Blood [facility] Creatinine [Mass/vol ume] in Urine collected for unspecified duration [facility] End: 03-13-2023 Extra Urine Gilbert Tube [facility] Work Phone: Comment on above: Once for 1 Occurrences starting 03/13/20 23 until 03/13/2023, 1 completed End: 06-06-2023 Extra Urine Gilbert Tube [facility] Work Phone: Comment on above: Once for 1 Occurrences starting 06/06/19 24 until 06/06/2023 Biophysical pr ofile panel US [facility] Genital microscopy, culture and sensitivities [facility] Hepatitis B surface antigen measurement [facility] Hepatitis C antibody measurement [facility] HIV 1+2 Ab+HIV1 p24 Ag [Presence] in Serum or Plasma by Immunoassay [facility] HOLTER MONITOR - HEEL COVERER JOANN R MONITOR - USP ECG Routine Tachycardia Near syncope Dizziness and giddiness Ordered: 10/20/2022 [facility] Comment on above: Ordered: 10/20/2022 End: 05-31-2023 HOLTER MONITOR - HEEL COVERER HOLTER MONITOR - USP ECG Routine Near syncope Tachycardia 1 Occurrences starting 05/31/2023 until 05/31/2023 [facility] Comment on above: 1 Occurrences starting 05/31/2023 until 05/31/2023 Neisseria gonorrhoea e rRNA [Presence] in Unspecified specimen by MAYTE with probe detection [facility] Path report.final Dx Spec [facility] Patient Education [facility] Work Phone: Patient referral [facility] Work Phone: PCR test for Chlamyd ia trachomatis [facility] Procedure [facility] Protein [Mass/volume ] in Urine [facility] Protein/Creatinine [ Mass Ratio] in Urine [facility] Protein/Creatinine [ Ratio] in Urine [facility] Rubella IgG measurement [facility] Source specific culture [facility] Treponema sp Ab [Pre sence] in Serum [facility] End: 03-13-2023 Urinalysis complete W Reflex Culture panel - Urine [facility] Service [facility] Work Phone: Comment on above: Once (Lab) for 1 Occurrences starting until 03/13/2023 End: 06-06-2023 Urinalysis complete W Reflex Culture panel - Urine [facility] Work Phone: Comment on above: Once (Lab) for 1 Occurrences starting until 06/06/[address] [facility] Immunizations Immunization Date Immunization Notes Care Provider [facility] 08-03-2023 influenza virus vaccine, unspecified formulation Davide Chao MD Work Phone: [facility] 06-17-2019 influenza virus vaccine, unspecified formulation Davide Chao MD Work Phone: [facility] 05-04-2016 RHO(D) immune globulin- IV or IM [facility] Work Phone: 05-04-2016 tetanus toxoid, reduced diphtheria toxoid, and acellular pertussis vaccine, adsorbed [facility] Work Phone: 03-23-2016 influenza, injectabl e, quadrivalent, contains preservative [facility] 03-23-2016 influenza virus vaccine, unspecified formulation Gallito Couch MD Work Phone: [facility] 06-14-2013 influenza virus vaccine, unspecified formulation [facility] Provider [facility] 04-25-2012 RHO(D) immune globulin- IV or IM [facility] Work Phone: 04-05-2012 influenza virus vaccine, whole virus [facility] 06-22-2010 RHO(D) immune globulin- IV or IM [facility] Payers Date Payer Category Payer Self-pay [id number] 2017 Unknown 2014 Medicaid [facility] xxxxxxxxxxx 2014-Present [id number] 2014 Medicaid [id number]. [id number] 2014 Medicaid [id number] 1.13.385.2.7.3. [id number] 2014 Unknown [id number] 2014 Unknown [id number] 1.2.840.262493.1.13.239.2.7.3. [id number] 1990 Unknown [id number] 2.16.840.1.311263.3.579.2.278 1990 Unknown [id number] 2.16.840.1.359663.3.579.2.278 1990 Unknown [id number] 2.16.840.1.545320.3.579.2.668 1990 Unknown [id number] 2.16.840.1.737968.3.579.2.668 1990 Unknown [id number] 2.16.840.1.233990.3.579.2.903 1990 Unknown [id number] 2.16.840.1.473579.3.579.2.903 1990 Unknown [id number] 2.16.840.1.189540.3.579.2.903 1990 Unknown [id number] 2.16.840.1.073848.3.579.2.903 1990 Unknown [id number] 2.16.840.1.827275.3.579.2.903 1990 Unknown [id number] 2.16.840.1.576682.3.579.2.903 1990 Unknown [id number] 2.16.840.1.483627.3.579.2.903 1990 Unknown [id number] 2.16.840.1.405276.3.579.2.732 1990 Unknown [id number] 2.16.840.1.387878.3.579.2.903 1990 Unknown [id number] 2.16.840.1.256931.3.579.2.174 1990 Unknown [id number] 2.16.840.1.138331.3.579.2.174 1990 Unknown [id number] 2.16.840.1.952881.3.579.2.174 1990 Unknown [id number] 2.16.840.1.423548.3.579.2.174 1990 Unknown [id number] 2.16.840.1.312171.3.579.2.174 1990 Unknown [id number] 2.16.840.1.330227.3.579.2.903 1990 Unknown [id number] 2.16.840.1.209047.3.579.2.903 1990 Unknown [id number] 2.16.840.1.164004.3.579.2.356 1990 Unknown [id number] 2.16.840.1.011029.3.579.2.356 1990 Unknown [id number] 2.16.840.1.055064.3.579.2.356 1990 Unknown [id number] 2.16.840.1.084980.3.579.2.356 1990 Unknown [id number] 2.16.840.1.541634.3.579.2.356 1990 Unknown [id number] 2.16.840.1.728207.3.579.2.356 1990 Unknown [id number] 2.16.840.1.761981.3.579.2.356 1990 Unknown [id number] 2.16.840.1.151794.3.579.2.356 1990 Unknown [id number] 2.16.840.1.259375.3.579.2.356 1990 Unknown [id number] 2.16.840.1.864510.3.579.2.479 1990 Unknown [id number] 2.16.840.1.535516.3.579.2.1068 1990 Unknown [id number] 2.16.840.1.627831.3.579.2.1068 1990 Unknown [id number] 2.16.840.1.186373.3.579.2.1068 1990 Unknown [id number] 2.16.840.1.374005.3.579.2.1068 1990 Unknown [id number] 2.16.840.1.786799.3.579.2.1068 1990 Unknown [id number] 2.16.840.1.901325.3.579.2.1068 1990 Unknown [id number] 2.16.840.1.713615.3.579.2.1068 1990 Unknown [id number] 2.16.840.1.482170.3.579.2.983 1990 Unknown [id number] 2.16.840.1.510111.3.579.2.983 1990 Unknown [id number] 2.16.840.1.216038.3.579.2.1243 1990 Unknown [id number] 2.16.840.1.042677.3.579.2.1243 1990 Unknown [id number] 2.16.840.1.595069.3.579.2.1243 1990 Unknown [id number] 2.16.840.1.917928.3.579.2.627 1990 Unknown [id number] 2.16.840.1.945424.3.579.2.983 1990 Unknown [id number] 2.16.840.1.862141.3.579.2.651 1990 Unknown [id number] 2.16.840.1.847527.3.579.2.651 1990 Unknown [id number] 2.16.840.1.358388.3.579.2.651 1990 Unknown [id number] 2.16.840.1.356526.3.579.2.983 Unknown [id number] 2.16.840.1.195083.3.579.2.462 Unknown [id number] 2.16.840.1.795966.3.579.2.462 Unknown [id number] 2.16.840.1.460011.3.579.2.462 Unknown [id number] 2.16.840.1.038733.3.579.2.462 Unknown [id number] 2.16.840.1.501560.3.579.2.462 Unknown [id number] 2.16.840.1.183206.3.579.2.462 Unknown [id number] 2.16.840.1.303334.3.579.2.462 Unknown [id number] Unknown [id number] Unknown [id number] Unknown [id number] Unknown [id number] Unknown [id number] Unknown [id number] Unknown [id number] Social History Date Type Detail Facility Start: 09-01-2018 End: 11-23-2024 Tobacco smoking status MEIS Current every day smoker [facility] Start: 01-23-2004 End: 01-24-2021 History of tobacco use Cigarette Smoker [facility] Start: 09-01-2018 End: 11-03-2023 Cigarettes smoked current (pack per day) - Reported [facility] Start: 1990 Sex Assigned At Not on file O [facility] Start: 09-01-2018 Alcohol intake Not Asked [facility] Start: 07-29-2022 End: 09-21-2023 Tobacco smoking consumption unknown [facility] Start: 11-11-2021 End: 06-07-2023 Exposure to SARS-CoV-2 (event) Not sure [facility] Start: 09-27-2020 End: 06-10-2024 Tobacco use and exposure Never used [facility] Start: 09-27-2020 End: 06-07-2023 Alcohol intake Lifetime non-drinker (finding) [facility] Start: 09-27-2020 End: 06-21-2022 History SDOH Alcohol Frequency 1 [facility] Start: 05-17-2021 End: 06-10-2024 Tobacco smoking status NHIS Ex-smoker [facility] Start: 01-23-2004 End: 01-24-2021 History of tobacco use Current smoker [facility] Start: 06-23-2021 End: 04-03-2025 Alcohol intake Current non-drinker of alcohol (finding) [facility] Start: 11-29-2021 End: 06-21-2022 History SDOH Alcohol Frequency 2 [facility] Start: 11-29-2021 End: 06-21-2022 History SDOH Social Connections Living 8 [facility] Start: 11-29-2021 End: 06-21-2022 History SDOH Physical Activity DPW 0 [facility] Start: 11-29-2021 End: 06-21-2022 History SDOH Stress 4 [facility] Start: 11-29-2021 History SDOH Housing Places Lived 3 [facility] Start: 06-13-2019 Education 21 [facility] Start: 06-21-2022 History SDOH Stress 5 [facility] Start: 09-25-2020 None [facility] Start: 09-25-2020 Cigarettes [facility] Start: 1990 Sex Assigned At Female W [facility] Start: 10-20-2022 Tobacco Comment Currently vapes [facility] Start: 06-21-2022 End: 11-03-2023 Social connection and isolation panel [facility] Do you belong to any clubs or organizations such as mandaeism groups, unions, fraternal or athletic groups, or school groups? No [facility] Are you now , , , , never or living with a partner? Living with partner [facility] How often to you hav e a drink containing alcohol? Monthly or less [facility] How many standard drinks containing alcohol do you have on a typical day? 1 or 2 [facility] How often do you hav e 6 or more drinks on 1 occasion? Never [facility] How hard is it for y ou to pay for the very basics like food, housing, medical care, and heating Not very hard [facility] Adult Depression Screening Assessment 3 [facility] Do you feel stress - tense, restless, nervous, or anxious, or unable to sleep at night because your mind is troubled all the time - these days [OSQ] Very much [facility] (I/We) worried wheth er (my/our) food would run out before (I/we) got money to buy more. Never true [facility] Start: 03-13-2023 [facility] Work Phone: Start: 03-13-2023 End: 05-16-2023 Tobacco use and exposure User of smokeless tobacco [facility] Work Phone: Start: 06-23-2017 Gender identity Identifies as female gender (finding) [facility] Do you belong to any clubs or organizations such as mandaeism groups, unions, fraternal or athletic groups, or school groups? Yes [facility] Tobacco Nicotine Use: Va ping Product in Last 90 Days. Type: Electronic Cigarettes (Vaping). [facility] Sex Assigned At Sex [facility] Start: 08-27-2024 End: 08-29-2024 Sex Female (finding) [facility] NEGATED: Highlighted row [facility] Medical Equipment Procedure Code Equipment Code Equipment Origin al Text Equipment Identifier Dates Fallopian tube clip/band ([id number] FDA Start: 03-10-2023 Goals Date Patient Goal Desired Activity /State Functional Status Date Assessment Result Facility 03-22-2024 Functional Status Up ad krish [facility] 03-22-2024 Functional Status Standard Safet y ID band on, Call device within reach, Bed in low position, Wheels locked [facility] 10-03-2023 Functional status Ambulates;Bath room Privilege [facility] Work Phone: 03-18-2023 Functional status Activity Abili ty Independent [facility] Work Phone: 12-29-2014 Are you deaf, or do you have serious difficulty hearing No 12/29/2014 12:30 PM EDT Bonnie Eduardo LPN No [facility] 12-29-2014 Are you blind, or do you have serious difficulty seeing, even when wearing glasses No 12/29/2014 12:30 PM EDT Bonnie Eduardo LPN No [facility] 12-29-2014 Do you have serious difficulty walking or climbing stairs No 12/29/2014 12:30 PM EDT Bonnie Eduardo LPN No [facility] 12-29-2014 Do you have difficul ty dressing or bathing No 12/29/2014 12:30 PM EDT Bonnie Eduardo LPN No [facility] 12-29-2014 Because of a physica l, mental, or emotional condition, do you have difficulty doing errands alone such as visiting a physician's office or shopping No 12/29/2014 12:30 PM EDT Bonnie Eduardo LPN No [facility] Functional observable [facility] Mental Status Date Assessment Result Facility 11-23-2024 Cognitive function Level Of Cons ciousness Awake;Alert;Appropriate;Fol lows Commands [facility] Work Phone: 03-22-2024 Mental Status Orientation Oriented x 4 [facility] 03-22-2024 Mental Status [facility] 10-03-2023 Cognitive function Light Pain [facility] Work Phone: 03-10-2023 Cognitive function Level Of Cons ciousness Follows Commands;Drowsy [facility] Work Phone: 01-23-2023 Cognitive function Voice/Name [facility] Work Phone: 10-14-2021 Cognitive functi ons [id number] [facility] 12-29-2014 Because of a physica l, mental, or emotional condition, do you have serious difficulty concentrating, remembering, or making decisions No 12/29/2014 12:30 PM EDT Bonnie Eduardo LPN No [facility] Clinical Notes 07-04-2016 to 01-03-2025 Note Date & Type Note Facility 01-03-2025 Progress note [facility] 01-03-2025 Progress note Note Date/Time January 03, 2025 3:56pm [facility] [address], [address] [place] [address] OFFICE VISIT Date of Service: 01/03/25 MR#: [id number] Acct: [id number] Name: QUE SANCHEZ Rep #: [id number] : 1990 Provider: TIM Roach Age/Sex: 34/F Location[facility] Status: Signed Intake Vital Signs 11/23/24 20:23 01/03/25 15:35 Height 5 ft 6 in 5 ft 6 in Weight: 177 lb 4 oz BMI 28.5 BP 108/68 Intake Visit Reasons: Possible BV Chief Complaint: Possible BV Processing Lead Required: No Is patient in pain?: No Allergies metronidazole (From Flagyl) Allergy (Verified 01/03/25 15:34) Upset Stomach Phenylpiperazine Antidepressant Adverse Reaction (Verified 01/03/25 15:34) suicidal ideation Tetracyclic Antidepressants Adverse Reaction (Verified 01/03/25 15:34) suicidal ideation Tricyclic Antidepressants and Tricy Adverse Reaction (Verified 01/03/25 15:34) suicidal ideation Medications ?Medication ?Instructions ?Recorded ?Confirmed ?Type lorazepam 0.5 mg tablet (Ativan) 0.5 mg PO BID PRN 06/2901/03/25 History magnesium 200 mg tablet 200 mg PO QDAY 01/03/2506/29 History prenat.vits,malgorzata,jpa-muvj-hpehe tab PO 01/03/25 5 History zinc acetate 25 mg (zinc) capsule 25 mg PO QDAY 01/03/25 History Is last menstrual period known: Yes Last Menstrual Period: 12/11/24 Post menopausal: No Patient : Yes : No PFSH Medical History Multiple personality [...] infection Surgical History S/P dilation and curettage (~10/03/23) Status post hysteroscopy History of cardiac radiofrequency ablation History of esophagogastroduodenoscopy (EGD) History of colonoscopy History of loop [...] you feel safe at home: Yes HPI Possible BV Details: QUE SANCHEZ is a 34 year old who presents for vaginal odor. has had BV in the past and thinks it is BV again. Started about 1-2 weeks ago. No discharge, itching, irritation. Female Reproductive History Last Menstrual Period: 12/11/24 Cycle Length: 21-35 Bleeding Duration: 4 Questions: sexually active: Yes, dyspareunia: No and PCB: No History 6 Elective abortions Hx Para 5 Spontaneous abortions Hx # Term Pregnancies Ectopic pregnancies Hx # Pregnancies Multiple births # of living children Past Pregnancies Del. Date Name GA/Weeks Outcome Route Bth Weight Infant Gen Labor Lgth Anesthesia Del Locatn Provider FOB 02/23/08 Radha 42 live - full term 7lbs 2oz Female [address] [facility] [address] Emilia Jung 09/07/10 Bridget 39 live - full term 7lbs 4oz Female 46 suzette rs [facility] Satya 07/12/12 Pj 38 live - full term 7lbs 6oz Male 4 hours [facility] Lilli Piña 07/15/16 Missy 37 live - full term 7lbs 8oz Male [address] [facility] [address] Jurado 10/12/21 [place] 40 live - full term 8lbs 2oz Male Christina Germain an Will 03/10/24 Von live - full term [...] No issues during or delivery. ROS Const Constitutional: Reports system reviewed and no additional complaints, except as documented Cardio Card: Reports system reviewed and no additional complaints, except as documented Resp Resp: Reports system reviewed and no additional complaints, except as documented GI GI: Reports system reviewed and no additional complaints, except as documented : Reports system reviewed and no additional complaints, except as documented; Denies difficulty voiding, dysuria or urinary frequency Skin Skin/Breast: Reports system reviewed and no additional complaints, except as documented Neuro Neuro: Reports system reviewed and no additional complaints, except as documented Psych Psych: Reports system reviewed and no additional complaints, except as documented Exam Const General: cooperative, healthy appearing, comfortable and no acute distress Resp Effort & Inspection: normal respiratory effort, able to speak in complete sentences and symmetric chest movement GI Inspection: normal to inspection Palpation: soft External Female Exam: normal external appearance and normal appearance of the urethra Urethra: normal appearance of the urethra Speculum Exam - Vagina: normal appearance of the vagina and normal vaginal discharge Speculum Exam - Cervix: normal appearance of the cervix and nontender Bimanual Exam- Vagina & Uterus: normal bimanual exam, normal palpation, uterine size normal, No tender and non-tender Bimanual Exam- Adnexa, other: normal Pelvic Support: normal Neuro General: patient alert, patient awake and patient oriented x3 Cognition: normal cognition Speech: speech normal Gait: normal gait Psych Appearance: grossly normal and well kempt Mental Status: mental status grossly normal Affect: normal affect Speech and Movement: speech and movement normal Attitude: cooperative Thought Process: normal Thought Content: normal Judgment: judgment good Coding Level of Care Code Off vis,est,level 3 Diagnoses Vaginal odor N89.8 Amenorrhea N91.2 Assessment and Plan Assessment and Plan (1) Vaginal odor: Status: Acute Plan: genital culture ELIGIO BV (2) Amenorrhea: Status: Acute Plan: HCG x 2 progesterone 01/03/25 1556 <Electronically signed by Jeanette guido CNM> Date _ Jeanette Roach CNM Cosigner Signature: Date (if applicable) CC: ~ [facility] Work Phone: [phone]) 749-852407-21-2025 Procedure note [facility] Medical Records Department [address] [place] [address] Procedure Report 12/20/24 1712 MR#: [id number] Acct: [id number] Name: QUE SANCHEZ Rep #:[id number] : 1990 34 From: Melissa Brasher DO PCP: Dr. Davide hCao MD Status:RE G CLI Location: RAD Problems Associated Problem List Diagnoses (1) Tubal reversal surgical follow up: Multi Select Codes Urinary/Genital Urinary/Genital CPT Codes: 68089 HSG/SIS Non-invasive Procedural Procedure Information Date of Procedure: 12/23/24 Pre-Procedure Diagnosis: tubal reversal follow up Post-Procedure Diagnosis: tubal reversal follow up Procedure Performed:: HSG valve repairer reclamation: No Description of procedure: Operative details: Patient was taken to the x-ray room and was placed on the x- ray table and was inthe dorsal lithotomy position. Speculum was placed in the vagina and the cervix prepped with Betadine and the HSG catheter was easily introduced into the uterus and speculum removed. Radiologist was brought in andwhile pushing radiopaque dye into the uterus via the HSG catheter the radiologist tookmultiple images and views and confirmed bilateral tubal patency seen. No gross uterine filling defects or abnormalities were seen. All instruments removed from the vagina and the uterus without complication. Patient tolerated the procedure well. Procedure findings: patent bilateral fallopian tubes Complications Complications: No 12/23/244 Cosigner Signature (if applicable): CC: Dr. Melissa Brasher DO; Dr. Davide Chao MD~ Signed [facility]07-18-2025 Evaluation note* Diagnosis Onset Date Resolution Status Admit Date Tubal reversal surgical foll ow up acute December 20, 2024 11:44am [facility] Work Phone: 1(635) 151-982807-18-2025 Evaluation note* Diagnosis Onset Date Resolution Status Admit Date Tubal reversal surgical foll ow up acute December 20, 2024 11:44am Amenorrhea acute January 03 3:30pm Vaginal odor acute January 03, 2025 3:30pm [facility] Work Phone: 1(361) 688-375507-18-2025 Radiology Diagnostic study note [facility] Imaging Services [address] [place] [address] Salpingogram MR#: [id number] Acct: [id number] Name: QUE SANCHEZ Rep #: [id number] : 1990 F 34 From: Andrés Sullivan MD PCP: Dr. Davide Chao MD Status: RE G CLI Study:Salpingogram Date of Exam: 5 Exam# [id number] Ordering Dr: Melissa Mcneill DO PROCEDURE: SALPINGOGRAM 12/20/2024 REASON FOR EXAM: HSG TECHNIQUE: SALPINGOGRAM COMPARISON: None FINDINGS: Hysterosalpingogram was performed by the nutrition internship. Imaging was provided. Dose report: 21 seconds of fluoroscopy. 8.98 mGy. 2 images were submitted. The uterus is unremarkable. Both fallopian tubes are patent with free spill. RAD/Salpingogram IMPRESSION: Unremarkable hysterosalpingogram. Reading Location: [facility] CC: Dr. Melissa Brasher DO; Dr. Davide Chao MD ~ Accounting Clerk: Signed [facility]06-21-2025 Radiology Diagnostic study note [facility] Services [address] [place] [id number] Chest PA and Lateral MR#: [id number] Acct: [id number] Name: QUE SANCHEZ Rep #: [id number] : 1990 F 34 From: Carolyne Vo MD PCP: Dr. Davide Chao MD Status: RE G ER Study:Chest PA and Lateral Date of Exam: 11/23/24 Exam# [id number] Ordering Dr: Ryan Pearson DO PROCEDURE: CHEST PA AND LATERAL 11/23/2024 REASON FOR EXAM: CHEST PAIN TECHNIQUE: CHEST PA AND LATERAL COMPARISON: Chest radiograph 05/08/2018. FINDINGS: Hardware: None. Heart: The heart size is normal. Mediastinum: The mediastinal contour is unremarkable. Lungs: No focal consolidation, pleural effusion or pneumothorax. Bones: The bones are unremarkable. RAD/Chest PA and Lateral IMPRESSION: NEGATIVE CHEST Reading Location: [id number] CC: Dr. Davide Chao MD; Dr. Ryan Pearson DO ~ Accounting Clerk: Signed [facility]04-10-2025 Telephone encounter Note* Telephone Encounter - Omer Cowan RN - 09/12/2024 9:31 AM EDT Faxed US pelvic results to attn: Samara/nurse, [facility], per patient request. [facility]04-10-2025 Miscellaneous Notes* Telephone Encounter - Omer Cowan RN - 09/12/2024 9:31 AM EDT Faxed US pelvic results to attn: Samara/nurse, [facility], per patient request. documented in [facility] encounterHigh[facility]04-08-2025 NoteHNO ID: [id number] Author: LATONIA GRAY MD Service: ? Author Type: Physician Type: Progress Notes Filed: 09/11/2024 23:10 Note Text: The patient presents for requested ultrasound. Full report available in the Imaging tab in [facility]. Latonia Gray [facility]04-08-2025 History of Present illness Narrative* Latonia Gray MD - 09/10/2024 11:01 PM EDT The patient presents for requested ultrasound. Full report available in the Imaging tab in Epic. Latonia Gray MD documented in [facility]High[facility]04-03-2025 History of Present illness Narrative* Marina Snell APRN.LEAVE COORDINATOR - 09/05/2024 7:00 AM EDT Que Sanchez is a 34 year old female who presents for problem visit 2nd opinion uterine cyst/polyp HPI: Tubal reversal 08/29/2024 in [place] - brings records with her. Was previously told thatkiley had a cyst in her uterus but now sent message on portal from [facility] that she has a uterine polypthat should be removed as it could cause miscarriage. US report as below - indicates cyst. She doeshave known adenomyosis. She would like second opinion as she does would like to achieve and was told that it was most likely soon after tubal reversal. LMP 09/04/2024 Study: Pelvic w/ Transvaginal Date of Exam: 08/21/24 Exam# [id number] Ordering Dr: Melissa Brasher DO EXAM: US [...] Living4 SAB0 IAB0 Ectopic0 Multiple0 Live Births4 Workers' Compensation Magistrate History LMP: 10/03/2023 (Approximate), Age at Menarche: Age at First : Age at Menopause: Workers' Compensation Magistrate History Comments: Sexual Activity: Yes; Male; Nuvaring [...] EGD LAPAROSCOPY SURG CHOLECYSTECTOMY 09/14/2009 LEEP PROCEDURE (SECURITIES COUNSELOR DEPT)_*[place] 09/09/2015 SVT ABLATION 05/2015 procedure was [...] results. Follow- up as needed. Marina Snell APRN.LEAVE COORDINATOR Medical Decision Making: Problems: Moderate: New problem with uncertain prognosis Data: Unique source(s) for external note(s) reviewed: 2 Unique test result(s) reviewed: 2 Unique test(s) ordered: 1 Medical Decision Making Level: 4 - Moderate documented in this encounterHigh[facility]04-03-2025 NoteHNO ID: [id number] Author: MARINA SNELL APRN.CNP Service: ? Author Type: Nurse Practitioner Type: Progress Notes Filed: 09/05/2024 08:06 Note Text: Que Sanchez is a 34 year old female who presents for problem visit 2nd opinion uterine cyst/polyp HPI: Tubal reversal 08/29/2024 in [place] - brings records with her. Was previously told that she had a cyst in her uterus but now sent message on portal from [facility] that she has a uterine polyp that should be removed as it could cause miscarriage. US report as below - indicates cyst. She does have known adenomyosis. She would like second opinion as she does would like to achieve and was told that it was most likely soon after tubal reversal. LMP 09/04/2024 Study: Pelvic w/ Transvaginal Date of Exam: 08/21/24 Exam# [id number] Ordering Dr: Melissa Brasher DO EXAM: US [...] Living4 SAB0 IAB0 Ectopic0 Multiple0 Live Births4 Workers' Compensation Magistrate History LMP: 10/03/2023 (Approximate), Age at Menarche: Age at First : Age at Menopause: Workers' Compensation Magistrate History Comments: Sexual Activity: Yes; Male; Nuvaring [...] EGD LAPAROSCOPY SURG CHOLECYSTECTOMY 09/14/2009 LEEP PROCEDURE (SECURITIES COUNSELOR DEPT)_[place] 09/09/2015 SVT ABLATION 05/2015 procedure was [...] Medication Sig gabapentin (NEURO (more content not included)...[facility] 08-21-2024 Radiology Diagnostic study note [facility] Imaging Services [address] [place] [address] Pelvic w/ Transvaginal MR#: [id number] Acct: [id number] Name: QUE SANCHEZ Rep #: [id number] : 1990 F 34 From: Alicja Pearson MD PCP: Dr. Davide Chao MD Status: RE G CLI Study:Pelvic w/ Transvaginal Date of Exam: 08/21/24 Exam# [id number] Ordering Dr: Melissa Mcneill DO EXAM: US [...] evaluation with MRI is recommended. Reading Location: [facility] CC: Dr. Melissa Brasher DO; Dr. Davide Chao MD ~ Accounting Clerk: Signed [facility]03-17-2025 NotePap Smear Specimen AdequacyMarch 2024 11:59pmComment.Satisfactory for evaluation. Endocervical and/or squamous metaplasticcells (endocervical component)are present.[facility] INTER[facility]ACED A#[id number] [facility] Medical CenterComment on above:Satisfactory for evaluation. Endocervical and/or squamous metaplasticcells (endocervical component)are present.08-19-2024 NotePap Smear Specimen AdequacyMarch 2024 11:59pmComment.Satisfactory for evaluation. Endocervical and/or squamous metaplasticcells (endocervical component)are present.[facility] INTER[facility]ED A#[id number] Stokes [facility] Medical CenterCommunson healthcare [facility] on above:Satisfactory for evaluation. Endocervical and/or squamous metaplasticcells (endocervical component)are present.08-19-2024 Evaluation note* Diagnosis Onset Date Resolution Status Admit Date Postcoital bleeding acute August 19, 2024 2:42pm [facility] Work Phone: 1(258) 115-434203-13-2025 Telephone encounter Note* Telephone Encounter - Natalie Turpin RN - 08/15/2024 4:10 PM EDT Pt called and is notified of providers results and instructions. Pt voices understanding. Natalie Turpin RN [facility]03-13-2025 Miscellaneous Notes* Telephone Encounter - Natalie Turpin RN - 08/15/2024 4:10 PM EDT Pt called and is notified of providers results and instructions. Pt voices understanding. Natalie Turpin RN * Telephone Encounter - Davide [...] needs called with information documented in this encounterHigh[facility]03-13-2025 Telephone encounter Note * Telephone Encounter [...] iron and folate levels. Davide Chao MD [facility]03-12-2025 Telephone encounter Note* Telephone Encounter - Mamie Paul RN - 08/14/2024 3:32 PM EDT patient is calling in requesting results of lab work the was completed on 08/12. patient is also asking if she can get an order for iron and folic acid levels to be checked also. please review and advise patient needs called with information [facility]03-10-2025 Telephone encounter Note* Telephone Encounter - Vera Lewis MA - 08/12/2024 4:36 PM EDT See [employer] message. Not sure what this is. Wanted to follow up. Online it says I could be anemic or have low oxygen? Other tests are normal. I've been having issues with my breathing for about a week or so, but my meters never read below 96. Probably from vaping. Just wanted to check with you ! [facility]03-10-2025 Miscellaneous Notes* Telephone Encounter - Vera Lewis MA - 08/12/2024 4:36 PM EDT See [employer]char[employer] message. Not sure what this is. Wanted to follow up. Online it says I could be anemic or have low oxygen? Other tests are normal. I've been having issues with my breathing for about a week or so, but my meters never read below 96. Probably from vaping. Just wanted to check with you ! documented in this encounterHighland [facility] Hospital03-04-2025 History of Present illness Narrative* Davide [...] visit. Either the patient or their legal product sales representative has been informed of the risks and benefits of -- and alternatives to -- treatment through a remote evaluation andconsents to proceed with the evaluation remotely. Pt sent in a Friendster message back on 07/29/24 asking for a full blood work up due to having reverse tubal surgery in the next couple months. She wanted to make sure everything was normal with kidney, liver, and heart. Lab orders have been placed. SECURITIES COUNSELOR placed orders for other testing. Main concern [...] and works with her. Also has a Employment Supervisor, which she feels the Employment Supervisor is more helpful. Was started on Strattera [...] EGD LAPAROSCOPY SURG CHOLECYSTECTOMY 09/14/2009 LEEP PROCEDURE (SECURITIES COUNSELOR DEPT)_*[place] 09/09/2015 SVT ABLATION 05/2015 procedure was [...] done Influenza Vaccine(1) due on 02/04/2024 Covid-19 Vaccine(2023- season) Never done Cervical Cancer Screening due [...] prn Davide Chao MD documented in this encounterHigh[facility]03-[facility]-2025 NoteHNO ID: [id number] Author: DAVIDE CHAO MD Service: ? Author [...] visit. Either the patient or their legal product sales representative has been informed of the risks and benefits of -- and alternatives to -- treatment through a remote evaluation and consents to proceed with the evaluation remotely. Pt sent in a Friendster message back on 07/29/24 asking for a full blood work up due to having reverse tubal surgery in the next couple months. She wanted to make sure everything was normal with kidney, liver, and heart. Lab orders have been placed. SECURITIES COUNSELOR placed orders for other testing. Main concern [...] and works with her. Also has a Employment Supervisor, which she feels the Employment Supervisor is more helpful. Was started on Strattera [...] EGD LAPAROSCOPY SURG CHOLECYSTECTOMY 09/14/2009 LEEP PROCEDURE (SECURITIES COUNSELOR DEPT)_*[place] 09/09/2015 SVT ABLATION 05/2015 procedure was [...] ALLERGIES Allergen Reactions Cough (more content not included)...[facility]01-06-2025 History of Present illness Narrative* Davide Chao [...] a really bad attack so had to machine tack puller to the side off road for [...] a licensed counselor and works with her dielectric tester which she feels the dielectric tester is more helpful. Follows with Cardiology due to hx of arrhythmia, has taken Metoprolol 25 mg daily. No refills lately. She has talked to her food quality tester about this but has not wanted to [...] EGD LAPAROSCOPY SURG CHOLECYSTECTOMY 09/14/2009 LEEP PROCEDURE (SECURITIES COUNSELOR DEPT)_*FL 09/09/2015 SVT ABLATION 05/2015 procedure was [...] Past Histories independently gathered by the clinical clerical and office support workers and the remaining scribed note accurately describes [...] PM. Vera Lewis MA documented in this encounterHighland [facility] Hospital01-06-2025 NoteHNO ID: [id number] Author: DAVIDE CHAO MD Service: ? Author [...] a really bad attack so had to machine tack puller to the side off road for [...] a licensed counselor and works with her dielectric tester which she feels the dielectric tester is more helpful. Follows with Cardiology due to hx of arrhythmia, has taken Metoprolol 25 mg daily. No refills lately. She has talked to her food quality tester about this but has not wanted to [...] EGD LAPAROSCOPY SURG CHOLECYSTECTOMY 09/14/2009 LEEP PROCEDURE (SECURITIES COUNSELOR DEPT)_*FL 09/09/2015 SVT ABLATION 05/2015 procedure was [...] Known Problems Paternal Grandmother No Known Problems [place] (more content not included)...[facility]01-06-2025 Evaluation note* Diagnosis Onset Date Resolution Status Admit Date Inclusion cyst of vulva noneactive J anuary 2024 1:49pm Vaginal odor noneactive June 10, 2024 1:49pm Postcoital bleeding acute August 19, 2024 2:42pm [facility] Work Phone: [phone] History of Present illness Narrative* Davide Chao [...] office setting and agrees. Pt was at [place] [facility] with complaints of chest pain. Pt was seen at the ED for complaints of chest pain, cardiac work up was negative. Pt wrote into the office asking for advice. Notes that she's beenchoking on every single meal that she eats for the last few weeks, but worse recently. Did some research on this issues. Hx of being diagnosed in [place] with eosinophilic esophagitis. Reports this has been [...] Scan on 03/29/2024 8:42 AM by Provider, External, ADIA: Consultation - Emergency Medicine Diagnosed with eosinophilic [...] EGD LAPAROSCOPY SURG CHOLECYSTECTOMY 09/14/2009 LEEP PROCEDURE (SECURITIES COUNSELOR DEPT)_*[place] 09/09/2015 SVT ABLATION 05/2015 procedure was [...] prn Davide Chao MD documented in this encounterHighland [facility] Hospital10-25-2024 NoteHNO ID: [id number] Author: DAVIDE CHAO MD Service: ? Author [...] office setting and agrees. Pt was at [facility] with complaints of chest pain. Pt was seen at the ED for complaints of chest pain, cardiac work up was negative. Pt wrote into the office asking for advice. Notes that she's been choking on every single meal that she eats for the last few weeks, but worse recently. Did some research on this issues. Hx of being diagnosed in [place] with eosinophilic esophagitis. Reports this has been [...] EGD LAPAROSCOPY SURG CHOLECYSTECTOMY 09/14/2009 LEEP PROCEDURE (SECURITIES COUNSELOR DEPT)_*FL 09/09/2015 SVT ABLATION 05/2015 procedure was [...] daily. No current facility-administered (more content not included)...[facility]10-22-2024 Telephone encounter Note* Telephone Encounter - Yue Genao MA - 03/26/2024 10:26 AM EDT Pt has been notified that she needs to see an PREPAROLE COUNSELING AIDE if appt is not available. PCP is out multiple daysthis month, with limited scheduling. After further review pt is scheduled for a VV Monday. Yue Genao MA [facility]10-22-2024 Miscellaneous Notes* Telephone Encounter - Yue Genao MA - 03/26/2024 10:26 AM EDT Pt has been notified that she needs to see an PREPAROLE COUNSELING AIDE if appt is not available. PCP is [...] year. Yue Genao MA documented in this encounterHighland District Hospital10-22-2024 Telephone encounter Note * Telephone Encounter - Yue Genao MA - 03/26/2024 9:39 AM EDT Advised pt that she needs an appt to discuss as this has not been discussed previously over the past year. Yue Genao MA [facility]10-18-2024 Hospital Discharge instructions Patient Education 03/22/2024 [...] Swelling, pain or redness in one leg [id number] [facility]. [address] [place] [address]. All rights reserved. This information is not intended as a substitute for professional medical care. Always follow yourhealthcare professional's instructions. Follow Up Care 03/22/2024 14:31:02 With:DAVIDE CHAO MD Address: [address] [place] [address]- When:2-4 days [facility] 10-18-2024 Telephone encounter Note* Telephone Encounter - Davide Chao MD - 03/22/2024 5:06 PM EDT Noted Davide Chao MD [facility]10-18-2024 Miscellaneous Notes* Telephone Encounter - Davide Chao MD - 03/22/2024 5:06 PM EDT Noted Davide Chao MD * Telephone Encounter - Latanya Tam LPN - 03/22/2024 1:32 PM EDT Pt. calling from [facility] with Chest pain wanting appt today with provider. Advised Pt. she should talk to the MD that she is seeing at the Er. She states they probably won't help me. I offered her Er follow up next week and refused. documented in this encounterHighland District Hospital10-18-2024 NoteDischarge Instructions Discharge Summary [address] [address] [id number] 03/22/2024 Patient: QUE SANCHEZ Sex: Female : 1990 Age: 33y Thank you for visiting [facility]. You have been evaluated today by Antonette [...] Causes of Chest Pain Patient Signature Facility Superintendent Meters Date/Time 1 of 4 Discharge Instructions General Instructions with ExitWriter [address] [address] [id number] 03/22/2024 Patient: QUE SANCHEZ Sex: Female : 1990 Age: 33y Thank you for visiting [facility]. You have been evaluated today by Antonette [...] Swelling, pain or redness in one leg [address]10-18-2024 Note Discharge Instructions Thank you for allowing [facility] to assist you with your healthcare needs. The following is importantdischarge information regarding your hospital visit. What to Do Next Instructions from Your Care Team No qualifying data available. Post Acute Orders No qualifying data available. You Need to Schedule the Following Appointments Follow Up with DAVIDE CHAO MD When:Within 2-4 days Where:[address] [facility] [place] [address]- Allergies No Known Medication Allergies Medications Please [...] Swelling, pain or redness in one leg 6528-2018 [facility]. [address] [place] [address], [place] [address]. All rights reserved. This information is not intended as a substitute for professional medical care. Always follow yourhealthcare professional's instructions. Additional Information VACCINATE! IT SAVES LIVES! Members of the community who have not yet received the COVID-19 vaccine and would like to receive it can visit one of [facility] vaccine clinics. There are many vaccine clinic locations within the [facility]. For locations and available times, please visit www.[facility].coronavirus.[place].gov/. It is important to note that some COVID mobile vaccine clinics are held outdoors and may be canceled in rainy or stormy conditions. To learn more about pediatric vaccinations (ages 5-11), we invite you to visit the [facility] webpage. [email or web address]/[email or web address]-Uxvlcipycvc-Izpfgsmtnl-Opyte-Uxa stions.htmlTo learn more about the COVID-19 vaccine, we invite you to visit the CDC website for a list of frequently asked questions. https://www.cdc.gov/coronavirus/2019-ncov/vaccines/faq.html [employer] Patient Portal Access Instructions: Stay connected with your healthcare team and access your personal medical information anytime with the [facility] Patient Portal. If you would like a full copy of your medical records please contact the [facility] Medical Records Department Monday through Monday between 8a.m. and 4:30p.m. Please follow the directions below to access the portal: 1.Access the email account you provided upon registration to the hospital.2.Look for an invitation email from [facility].3.Open the email and access the invitation link: Accept Invitation to [facility]4.Fill in the required coughlin to create your account. Sign into [email or web address].OROS with your username and password that you [...] you will allow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 work-up there was negative but she was transferred to [facility] forfurther evaluation, neurology consult, and MRI. However [...] file Gets together: Not on file Attends hinduism service: Not on file Active member of [...] to stay in the hospital again and thenshe would leave AGAINST MEDICAL ADVICE. When she is informed by staff and by me that there is no MRI capability, department of the emergency department. . . Clinical Impression: 1. Left against medical advice 2. Blurred vision Disposition: Patient is being AGAINST MEDICAL ADVICE Barbara Sandoval MD [facility] Emergency Department (Please note that portions of this note have been completed with a voice recognition software. Efforts were made to correct any errors, but occasionally words are mis-transcribed.) Barbara Sandoval MD 09/27/20 1226 * Laury Merchant, MICHAEL - 09/27/2020 12:06 PM EDT PT WAS ADMITTED HERE YESTERDAY FOR FURTHER EVAL OF BLURRED VISION, [facility] DID[facility]T WANT TO STAY IN THE [...] back in ER tomorrow. documented in this [id number] Miscellaneous Notes* Quick Note - Donita Biggs RN - 09/26/2020 8:41 PM EDT Patient left AMA at 8:40pm. Educated on the importance of staying, but patient stated she was leaving. documented in this [id number] History and physical note* Alexandria Diaz MD - 09/26/2020 8:40 PM EDT [facility] Medicine Inpatient H&P 09/26/2020 Alexandria Diaz MD [facility] Patient: Que Escobar Date of : 1990 [...] and evaluation, Per Byron pt presents to [facility] ED with reported acute onset of [...] IMAGING: Reviewed 9:18 PM documented in this [id number] Hospital course Narrative* Alexandria Diaz MD - 09/26/2020 8:40 PM EDT DISCHARGE SUMMARY Patient: Que Escobar Date of : 1990 Site: [facility] Provider: Davide Chao MD Admit Date: 09/26/2020 [...] Physician(s) Family Provider: Davide Chao MD, Address: [address] [place] [address] / [facility] [address] Follow Up: No follow-up provider specified. Additional Information: Patient instructions, including activity, were given to the patient/family at discharge. Please seethe After Visit Summary in the electronic medical record for details. Time spent on discharge: > 30 minutes Completed by: Alexandria Diaz MD on 09/26/20, 9:21 PM documented in this [id number] History of Past illness Narrative* Problem Noted Date Resolved Date Uterine size-date discrepancy 07/04/2016 Overview: July 04, [address] [facility] ordered Yuri Crenshaw MD Tobacco use in [...] states that her last menstrual period was boat buffer plastic than normal, and she is uncertain of [...] she was treated one month ago at [facility] emergency room for a urinary tract infection. [...] of this encounter (statuses as of 11/29/2021) [facility] History of Past illness Narrative* Problem Noted Date Resolved Date Uterine size-date discrepancy 07/04/2016 Overview: July 04, 2016 [facility] ordered Yuri Crenshaw MD Tobacco use [...] states that her last menstrual period was boat buffer plastic than normal, and she is uncertain of [...] she was treated one month ago at [facility] emergency room for a urinary tract infection. [...] of this encounter (statuses as of 11/29/2021) [facility] History of Past illness Narrative* Problem [...] states that her last menstrual period was boat buffer plastic than normal, and she is uncertain of [...] she was treated one month ago at [facility] emergency room for a urinary tract infection. [...] ation of other contraceptive measures 06/08/2011 [facility]28/[facility]23.89[facility] 0 06/08/2011 Supervision of other high-risk (V23.89) 02/19/2008 02/25/2008 documented as of this encounter (statuses as of 03/03/2022) [facility] of Past illness Narrative* Problem Noted Date Resolved Date Uterine size-date discrepancy 07/04/2016 Overview: July 04, [address] [facility] ordered Yuri Crenshaw MD Tobacco use in [...] states that her last menstrual period was boat buffer plastic than normal, and she is uncertain of [...] she was treated one month ago at [facility] emergency room for a urinary tract infection. [...] of this encounter (statuses as of 03/04/2022) [facility] History of Past illness Narrative* Problem [...] states that her last menstrual period was boat buffer plastic than normal, and she is uncertain of [...] she was treated one month ago at [facility] emergency room for a urinary tract infection. [...] of this encounter (statuses as of 06/21/2022) [facility] of Past illness Narrative* Problem [...] states that her last menstrual period was boat buffer plastic than normal, and she is uncertain of [...] she was treated one month ago at [facility] emergency room for a urinary tract infection. [...] of this encounter (statuses as of 10/11/2022) [facility] of Past illness Narrative* Problem Noted Date Diagnosed Date Resolved Date Uterine size-date discrepancy 07/04/2016 08/10/2016 Overview: July 04, [address] [facility] ordered Yuri Crenshaw MD Tobacco use in [...] states that her last menstrual period was boat buffer plastic than normal, and she is uncertain of [...] she was treated one month ago at [facility] emergency room for a urinary tract infection. [...] per Dr. Melissa Vang. History of syncope 11/09/2011201 7 Overview: Patient states she has a [...] of this encounter (statuses as of 01/27/2023) [facility] of Past illness Narrative* Problem Noted Date Diagnosed Date Resolved Date Uterine size-date discrepancy 07/04/2016 08/10/2016 Overview: July 04, 2016 [facility] ordered Yuri Crenshaw MD Tobacco use [...] states that her last menstrual period was boat buffer plastic than normal, and she is uncertain of [...] she was treated one month ago at [facility] emergency room for a urinary tract infection. [...] ation of other contraceptive measures 06/08/2011 03/28/2013 [facility] HIGH RISK NEC [V23.89] 05/25/2010 06/08/2011 Supervision of other high-ri sk (V23.89) 02/19/2008 02/25/2008 documented as of this encounter (statuses as of 01/31/2023) [facility] of Past illness Narrative* Problem [...] states that her last menstrual period was boat buffer plastic than normal, and she is uncertain of [...] she was treated one month ago at [facility] emergency room for a urinary tract infection. [...] of this encounter (statuses as of 03/28/2023) [facility] of Past illness Narrative* Problem Noted Date Diagnosed Date Resolved Date Uterine size-date discrepancy 07/04/2016 08/10/2016 Overview: July 04, [address] [facility] ordered Yuri Crenshaw MD Tobacco use in [...] states that her last menstrual period was boat buffer plastic than normal, and she is uncertain of [...] she was treated one month ago at [facility] emergency room for a urinary tract infection. [...] of this encounter (statuses as of 04/08/2023) [facility] of [facility] illness Narrative* Problem [...] states that her last menstrual period was boat buffer plastic than normal, and she is uncertain of [...] she was treated one month ago at [facility] emergency room for a urinary tract infection. [...] ation of other contraceptive measures 06/08/2011 03/28/2013 [facility] HIGH RISK NEC [V23.89] 05/25/2010 06/08/2011 Supervision of other high-ri sk (V23.89) 02/19/2008 02/25/2008 documented as of this encounter (statuses as of 05/09/2023) [facility] of [facility] Narrative* Problem [...] states that her last menstrual period was boat buffer plastic than normal, and she is uncertain of [...] she was treated one month ago at [facility] emergency room for a urinary tract infection. [...] ation of other contraceptive measures 06/08/2011 03/28[facility] [V23.89] 05/25/2010 06/08/2011 Supervision of other high-ri sk (V23.89) 02/19/2008 02/25/2008 documented as of this encounter (statuses as of 07/11/2023) [facility] of [facility] Narrative* Problem Noted Date Diagnosed Date Resolved Date Uterine size-date discrepancy 07/04/2016 08/10/2016 Overview: July 04, [address] [facility] ordered Yuri Crenshaw MD Tobacco use in [...] states that her last menstrual period was boat buffer plastic than normal, and she is uncertain of [...] she was treated one month ago at [facility] emergency room for a urinary tract infection. [...] of this encounter (statuses as of 08/10/2023) [facility] of [facility] illness Narrative* Problem Noted Date Diagnosed Date Resolved Date Uterine size-date discrepancy 07/04/2016 08/10/2016 Overview: July 04, [address] [facility] ordered Yuri Crenshaw MD Tobacco use in [...] states that her last menstrual period was boat buffer plastic than normal, and she is uncertain of [...] she was treated one month ago at [facility] emergency room for a urinary tract infection. She was unable to finish the medication, because she lost it. Patient states she still notes some frequency of urination. She denies any pain with urination. Urine culture ordered by Dr. Mleissa Vang Discussed importance of reporting the onset [...] of this encounter (statuses as of 08/11/2023) [facility] summary Author Melissa Saxena [facility] October 03, 2023 7:26am Note Date/Time October 03, 2023 7:2 6am [facility] Medical Records Department [address] [place] [address] Instructions for Home/Discharge Instructions 10/03/23 0726 MR#: [id number] Acct: [id number] Name: QUE BAILEY Rep #:[id number] : 1990 33 From: Melissa Brasher DO PCP: Dr. Davide Chao MD Status[place] [facility] Discharge Instructions Diet Discharge Diet: No restrictions [...] Up With: Melissa Brasher DO When: Call [phone] to schedule appointment. Test Results: Test results [...] CC: Dr. Davide Chao MD ~ Signed [facility] Work Phone: Evaluation + Plan note No data available for this section [facility] Evaluation note* Diagnosis Right sided weakness- Primary documented in this encounter [facility] note* Diagnosis Left against medical advice- Primary Blurred vision Other specified visual disturbances documented in this encounter [facility] note* Diagnosis Palpitations- Primary documented in this encounter [facility] note* Cardiovascular: S1 S2 RRR, no murmursExtremities: no calf tenderness, reflexes 2+Constitutional: alert, orientedRespiratory/Thorax: normal respiratory effort, lungs clear, no wheezes or rhonchi [facility] Diagnosis Non-recurrent acute suppurative otitis media of left ear without spontaneous rupture of tympanic membrane- Primary documented in this encounter [facility] note* Diagnosis Anxiety Anxiety state, unspecified documented in this encounter [facility] note* Diagnosis Anxiety with depression- Primary documented in this encounter [facility] note* Diagnosis Chronic insomnia- Primary Insomnia, unspecified Anxiety with depression Gastritis without bleeding, unspecified chronicity, unspecified gastritis type documented in this encounter [facility] note* Diagnosis Back strain, initial encounter- Primary documented in this encounter [facility] Phone: evaluation note* Diagnosis Acute bilateral low back pain with right-sided sciatica , unspecified gestational age documented in this encounter [facility] Phone: evaluation note* Diagnosis , unspecified gestational age documented in this encounter [facility] Phone: evaluation noteNo assessment information available [facility] Work Phone: Evaluation note* Diagnosis Onset Date Resolution Status Depression affecting acute Herpes simplex infection during , antepartum acute [id number] acute History of pre-eclampsia acu te acute Rh negative status during acute Spotting acute Supervision of high risk , antepartum acute [facility] Work Phone: Evaluation note* Diagnosis Onset Date Resolution Status Depression affecting acute Herpes simplex infection during , antepartum acute [id number] acute History of pre-eclampsia acu te acute Rh negative status during acute Spotting acute Supervision of high risk , antepartum acute Depression affecting acute Herpes simplex infection during , antepartum acute [id number] acute History of pre-eclampsia acu te acute Rh negative status during acute Spotting acute Supervision of high risk , antepartum acute [facility] Work Phone: Evaluation note* Diagnosis History of PSVT (paroxysmal supraventricular tachycardia)- Primary Personal history of other diseases of circulatory system Chronic bilateral low back pain with left-sided sciatica [facility] Tachycardia Tachycardia, unspecified Near syncope Syncope and collapse Dizziness and giddiness [facility] Diagnosis Onset Date Resolution Status Depression affecting acute Herpes simplex infection during , antepartum acute [id number] acute History of pre-eclampsia acu te acute Rh negative status during acute Spotting acute Supervision of high risk , antepartum acute Depression affecting acute Herpes simplex infection during , antepartum acute [id number] acute History of pre-eclampsia acu te acute Rh negative status during acute Spotting acute Supervision of high risk , antepartum acute Depression affecting acute Herpes simplex infection during , antepartum acute [id number] acute History of pre-eclampsia acu te acute Rh negative status during acute Spotting acute Supervision of high risk , antepartum acute [facility] Work Phone: Evaluation note* Diagnosis Onset Date Resolution Status Depression affecting acute Herpes simplex infection during , antepartum acute [id number] acute History of pre-eclampsia acu te acute Rh negative status during acute Spotting acute Supervision of high risk , antepartum acute Depression affecting acute Herpes simplex infection during , antepartum acute [id number] acute History of pre-eclampsia acu te acute Rh negative status during acute Spotting acute Supervision of high risk , antepartum acute Rh negative status during acute Depression affecting acute Herpes simplex infection during , antepartum acute [id number] acute History of pre-eclampsia acu te acute Rh negative status during acute Spotting acute Supervision of high risk , antepartum acute Chronic headache chronic Arthritis pain, hip acute Depression affecting acute Herpes simplex infection during , antepartum acute [id number] acute History of pre-eclampsia acu te acute Rh negative status during acute Sciatic leg pain acute Supervision of high risk , antepartum acute Chronic headache chronic Abnormal glucose acute Back pain acute Depression affecting acute Herpes simplex infection during , antepartum acute [id number] acute History of pre-eclampsia acu te acute Rh negative status during acute Supervision of high risk , antepartum acute Vaginal discharge during acute Chronic headache chronic UTI in acute [facility] Work Phone: Evaluation note* Diagnosis STD (sexually transmitted disease)- Primary Venereal disease, unspecified [facility] Diagnosis Onset Date Resolution Status Depression affecting acute Herpes simplex infection during , antepartum acute [id number] acute History of pre-eclampsia acu te acute Rh negative status during acute Spotting acute Supervision of high risk , antepartum acute Rh negative status during acute Depression affecting acute Herpes simplex infection during , antepartum acute [id number] acute History of pre-eclampsia acu te acute Rh negative status during acute Spotting acute Supervision of high risk , antepartum acute Chronic headache chronic Arthritis pain, hip acute Depression affecting acute Herpes simplex infection during , antepartum acute [id number] acute History of pre-eclampsia acu te acute Rh negative status during acute Sciatic leg pain acute Supervision of high risk , antepartum acute Chronic headache chronic Abnormal glucose acute Back pain acute Depression affecting acute Herpes simplex infection during , antepartum acute [id number] acute History of pre-eclampsia acu te acute Rh negative status during acute Supervision of high risk , antepartum acute Vaginal discharge during acute Chronic headache chronic UTI in acute [facility] Work Phone: Evaluation note* Diagnosis Onset Date Resolution Status Depression affecting acute Herpes simplex infection during , antepartum acute [id number] acute History of pre-eclampsia acu te acute Rh negative status during acute Spotting acute Supervision of high risk , antepartum acute Rh negative status during acute Depression affecting acute Herpes simplex infection during , antepartum acute [id number] acute History of pre-eclampsia acu te acute Rh negative status during acute Spotting acute Supervision of high risk , antepartum acute Chronic headache chronic Arthritis pain, hip acute Depression affecting acute Herpes simplex infection during , antepartum acute [id number] acute History of pre-eclampsia acu te acute Rh negative status during acute Sciatic leg pain acute Supervision of high risk , antepartum acute Chronic headache chronic Abnormal glucose acute Back pain acute Depression affecting acute Herpes simplex infection during , antepartum acute [id number] acute History of pre-eclampsia acu te acute [...] Herpes simplex infection during , antepartum acute [id number] acute History of pre-eclampsia acu te Hx [...] Herpes simplex infection during , antepartum acute [id number] acute History of pre-eclampsia acu te Hx of cholecystectomy acute Hypokalemia acute acute Pruritus of acute Rh negative status during acute Sciatic leg pain acute Spotting acute Supervision of high risk , antepartum acute Vaginal discharge during acute Chronic headache [facility] Work Phone: Evaluation note* Diagnosis Onset Date Resolution Status Rh negative status during acute Depression affecting acute Herpes simplex infection during , antepartum acute [id number] acute History of pre-eclampsia acu te acute Rh negative status during acute Spotting acute Supervision of high risk , antepartum acute Chronic headache chronic Arthritis pain, hip acute Depression affecting acute Herpes simplex infection during , antepartum acute [id number] acute History of pre-eclampsia acu te acute Rh negative status during acute Sciatic leg pain acute Supervision of high risk , antepartum acute Chronic headache chronic Abnormal glucose acute Back pain acute Depression affecting acute Herpes simplex infection during , antepartum acute [id number] acute History of pre-eclampsia acu te acute [...] Herpes simplex infection during , antepartum acute [id number] acute History of pre-eclampsia acu te Hx [...] Herpes simplex infection during , antepartum acute [id number] acute History of pre-eclampsia acu te Hx of cholecystectomy acute Hypokalemia acute acute Pruritus of acute Rh negative status during acute Sciatic leg pain acute Spotting acute Supervision of high risk , antepartum acute Vaginal discharge during acute Chronic headache [facility] Work Phone: Evaluation note* Diagnosis Onset Date Resolution Status Rh negative status during acute Depression affecting acute Herpes simplex infection during , antepartum acute [id number] acute History of pre-eclampsia acu te acute Rh negative status during acute Supervision of high risk , antepartum acute Chronic headache chronic Spotting resolved Depression affecting acute Herpes simplex infection during , antepartum acute [id number] acute History of pre-eclampsia acu te acute Rh negative status during acute Supervision of high risk , antepartum acute Chronic headache chronic Arthritis pain, hip resolved Sciatic leg pain resolved Abnormal glucose acute Depression affecting acute Herpes simplex infection during , antepartum acute [id number] acute History of pre-eclampsia acu te acute [...] Herpes simplex infection during , antepartum acute [id number] acute History of pre-eclampsia acu te acute [...] Herpes simplex infection during , antepartum acute [id number] acute History of pre-eclampsia acu te acute [...] Herpes simplex infection during , antepartum acute [id number] acute History of pre-eclampsia acu te acute Rh negative status during acute Social discord acute Sterilization acute Supervision of high risk , antepartum acute Chronic headache chronic Hypokalemia resolved Pruritus of resolv ed [facility] Work Phone: Evaluation note* Diagnosis Hypertension, unspecified type- Primary induced hypertension, antepartum Transient hypertension of , antepartum documented in this encounter [facility] Work Phone: Evaluation note* Diagnosis Onset Date Resolution Status Chronic headache resolved Depression affecting resolved Herpes simplex infection during , antepartum resolved [id number] resolved History of pre-eclampsia res olved resolved Rh negative status during resolved Spotting resolved Supervision of high risk , antepartum resolved Arthritis pain, hip resolved Chronic headache resolved Depression affecting resolved Herpes simplex infection during , antepartum resolved [id number] resolved History of pre-eclampsia res olved resolved Rh negative status during resolved Sciatic leg pain resolved Supervision of high risk , antepartum resolved Abnormal glucose resolved Back pain resolved Chronic headache resolved Depression affecting resolved Herpes simplex infection during , antepartum resolved [id number] resolved History of pre-eclampsia res olved resolved [...] Herpes simplex infection during , antepartum resolved [id number] resolved History of pre-eclampsia res olved Hypokalemia [...] Herpes simplex infection during , antepartum resolved [id number] resolved History of pre-eclampsia res olved Hypokalemia resolved resolved Pruritus of resolv ed Rh negative status during resolved Sciatic leg pain resolved Spotting resolved Supervision of high risk , antepartum resolved Vaginal discharge during resolved Abnormal glucose resolved Chlamydia infection affecting resolved Chronic headache resolved Depression affecting resolved Elevated bilirubin resolved Herpes simplex infection during , antepartum resolved [id number] resolved History of pre-eclampsia res olved Hypokalemia resolved resolved Pruritus of resolv ed Rh negative status during resolved Social discord resolved Sterilization resolved Supervision of high risk , antepartum resolved False labor after 37 completed weeks of gestation resolved Abnormal glucose resolved Chlamydia infection affecting resolved Chronic headache resolved Depression affecting resolved Elevated bilirubin resolved Herpes simplex infection during , antepartum resolved [id number] resolved History of pre-eclampsia res olved resolved Rh negative status during resolved Social discord resolved Sterilization resolved Supervision of high risk , antepartum resolved Abnormal glucose resolved Chlamydia infection affecting resolved Chronic headache resolved Depression affecting resolved Elevated bilirubin resolved Herpes simplex infection during , antepartum resolved [id number] resolved History of pre-eclampsia res olved resolved Rh negative status during resolved Social discord resolved Sterilization resolved Supervision of high risk , antepartum resolved Status post tubal ligation a cute Abnormal glucose resolved Chlamydia infection affecting resolved Chronic headache resolved Depression affecting resolved Elevated bilirubin resolved Herpes simplex infection during , antepartum resolved [id number] resolved History of pre-eclampsia res olved resolved Rh negative status during resolved Social discord resolved Sterilization resolved Supervision of high risk , antepartum resolved Vaginal delivery resolved Anxiety acute Depression acute Headache acute Status post tubal ligation a [facility] Work Phone: Evaluation note* Diagnosis Anxiety with depression- Primary Bilateral leg edema Edema Anemia, unspecified type Elevated liver function tests Other abnormal blood chemistry [facility]* Diagnosis Lower abdominal pain, unspecified Antepartum hemorrhage, unspecified, second trimester Maternal care for other rhesus isoimmunization, second trimester, not applicable or unspecified 21 weeks gestation of documented in this encounter [facility] Work Phone: Evaluation note* Diagnosis Anxiety Anxiety state, unspecified [facility]* Diagnosis Near syncope Syncope and collapse Tachycardia Tachycardia, unspecified [facility] Diagnosis Vaginal bleeding- Primary Other specified noninflammatory disorder of vagina documented in this encounter [facility] Work Phone: Evaluation note* Diagnosis Near syncope- Primary Syncope and collapse [facility] Diagnosis Onset Date Resolution Status Abnormal glucose resolved Chlamydia infection affecting resolved Chronic headache resolved Depression affecting resolved Elevated bilirubin resolved Herpes simplex infection dur ing , antepartum resolved [id number] resolved History of pre-eclampsia res olved resolved Rh negative status during resolved Social discord resolved Sterilization resolved Supervision of high risk , antepartum resolved Abnormal glucose resolved Chlamydia infection affecting resolved Chronic headache resolved Depression affecting resolved Elevated bilirubin resolved Herpes simplex infection dur ing , antepartum resolved [id number] resolved History of pre-eclampsia res olved resolved Rh negative status during resolved Social discord resolved Sterilization resolved Supervision of high risk , antepartum resolved Abnormal glucose resolved Chlamydia infection affecting resolved Chronic headache resolved Depression affecting resolved Elevated bilirubin resolved Herpes simplex infection dur ing , antepartum resolved [id number] resolved History of pre-eclampsia res olved resolved Rh negative status during resolved Social discord resolved Sterilization resolved Supervision of high risk , antepartum resolved Vaginal delivery resolved Anxiety acute Depression acute Headache acute Menorrhagia with irregular cycle acute Possible exposure to STD non eactive Vaginal odor noneactive [facility] Work Phone: Evaluation note* Diagnosis 16 weeks gestation of state, incidental Encounter for supervision of other normal in first trimester History of herpes genitalis Personal history of other infectious and parasitic disease Anxiety Anxiety state, unspecified [facility] Diagnosis Onset Date Resolution Status Menorrhagia with irregular cycle acute Possible exposure to STD non eactive Vaginal odor noneactive [facility] Work Phone: Evaluation note* Diagnosis Viral syndrome- Primary Unspecified viral infection, in conditions classified elsewhere and of unspecified site Urinary frequency [facility] Diagnosis Fibromyalgia Mylagia and myositis, unspecified [facility] Diagnosis Onset Date Resolution Status Menorrhagia with irregular cycle acute Possible exposure to STD non eactive Vaginal odor noneactive Menorrhagia with irregular cycle acute Menorrhagia with irregular cycle acute [facility] Work Phone: Evaluation note* Diagnosis Near syncope- Primary Syncope and collapse [facility] Diagnosis 16 weeks gestation of state, incidental Encounter for supervision of other normal in first trimester History of herpes genitalis Personal history of other infectious and parasitic disease [facility]* Diagnosis Fibromyalgia- Primary Mylagia and myositis, unspecified Anxiety with depression Near syncope Syncope and collapse URI, acute Acute upper respiratory infections of unspecified site [facility]* Diagnosis Anxiety with depression- Primary [facility]* Diagnosis Anxiety with depression [facility]* Diagnosis Eosinophilic esophagitis- Primary Anxiety with depression Dysphagia, unspecified type [facility]* Diagnosis Anxiety- Primary Anxiety state, unspecified Elevated blood pressure reading without diagnosis of hypertension ADHD (attention deficit hyperactivity disorder), combined type Attention deficit disorder with hyperactivity [facility]* Diagnosis Elevated blood pressure reading without diagnosis of hypertension- Primary Fibromyalgia Mylagia and myositis, unspecified Anxiety with depression ADHD (attention deficit hyperactivity disorder), combined type Attention deficit disorder with hyperactivity [facility]* Diagnosis Fatigue, unspecified type- Primary [facility]* Diagnosis Uterine cyst- Primary Other specified disorders of uterus, not elsewhere classified Adenomyosis of uterus [facility]* Diagnosis Uterine cyst- Primary Other specified disorders of uterus, not elsewhere classified Adenomyosis of uterus Paratubal cyst Other noninflammatory disorder of ovary, fallopian tube, and broad ligament Intramural uterine fibroid documented [facility] Author Melissa Saxena [facility] October 03, 2023 7:25am Note Date/Time October 03, 2023 7:2 6am [facility] Medical Records Department [address] [place] [address] History & Physical Exam 10/03/23 0724 MR#: [id number] Acct: [id number] Name: QUE BAILEY Rep #:[id number] : 1990 33 From: Melissa Brasher DO PCP: Dr. Davide Chao MD Status:[facility] Location: [place] [address] History and Physical Date of Admission: 10/03/23 Intake Vital Signs 06/28/2412:38 09/04/2407:12 09/04/2407:14 Height 5 ft 6 in 5 ft 6 in 5 ft 6 in Weight: 175 lb BMI 28.2 BP 94/65 Intake Visit Reasons: Surgical consult/AUB Processing Lead Required: No Is patient in pain?: No [...] new BF. The ex is now in [facility] and looking at 5 years in custodial. ultrasound shows the following: TECHNIQUE: Transabdominal and [...] full term 7lbs 2oz Female [address] [facility] [address] Emilia Jung 09/07/10 Bridget 39 live - full term 7lbs 4oz Female 46 hours [facility] Satya 07/12/12 Pj 38 live - full term 7lbs 6oz Male 4 hours [facility] Lilli Piña 07/15/16 Missy 37 live - full term 7lbs 8oz Male [address] [facility] [address] Jurado 10/12/21 [place] 40 live - full term 8lbs 2oz Male [place]. Rueda Will Delivery Date: 02/23/08 Last [...] references given for additional information regarding procedure. 10/03/23 0725 <Electronically signed by Melissa Vande Velde DO> Cosigner Signature (if applicable): CC: Dr. Melissa Brasher DO; Dr. Davide Chao MD~ Signed [facility] Work Phone: History of Present illness Narrative* [...] other systems reviewed and negative for complaint [address] Work Phone: History of Present illness Narrative* arrives to outpatient PT c/o . Pt presents with the following impairments: . These impairments contribute to difficulty in activity limitations and participation restrictions including . Thept s signs and symptoms are consistent with likely . The pt will benefit from skilled PT [id number]/week for 8 weeks to address the above stated impairments and functional limitations to maximize p articipation and ease in household, social, and work related activities. The pt has a prognosis when considering positive factors including with barriers such as . The pt verbalized understanding and agreement to goals and POC. Thank you for this referral and please call [phone] with any questions or concerns. * Clinical Presentation: Stable and/or uncomplicated characteristics. * Level of Complexity: low [facility] Work Phone: History of Present illness NarrativePatient confirmed name and date of . Patient was encouraged to mildly engage TrA contraction secondary to , focusing on core control with LE/UE exercises. No increase in pain with UE/LEexercises and reduced pain with unloading. Reviewed Kegel exercises with patient. [facility] Work Phone: Hospital Discharge instructions* Activity:Return to [...] go to nearestemergency room. *Information obtained from [facility] s: Save Your Life: Get Care for [...] pad in <1hr, egg sized blood clots) Spencer-sized blood clots are normal Bright red for [...] laxative without results, contact your doctor or mold stamper and repairer Activity No pushing, pulling, or lifting anything [...] may feel tightness, pulling, or itching as they heal Breast Care - Lactating Proper latch = prevention of problems After feeding, manually expresssome colostrum/milk, or apply lanolin ointment and gently [...] make more milk If your milk starts to come in, do not pump to relieve discomfort. Instead, use cold compresses such as ice packs, cabbage leaves (rinse clean and snap the veins of the leaf and place in your bra,) or frozen vegetables (never consume after thawing) Apply cold compress to breast for 10-15 minutes each time the baby takesa bottleWhen to Call Provider - Other Persistent pain Dizziness, faintness Breasts, perineum, or legs that are hot, red, painful, or swollen Nausea and/or vomiting Pain, burning, frequency, or difficulty peeing Anything that seems abnormal or that you may have questions about Any difficulty please call [phone] to speak with a proposal consultant.Please join our mom'ssupport group, which is the second Monday of every month from [phone] in the Birthing & Women's Unit, 4th floor [facility]. No registration required.[facility] you for choosing [facility]* Attachments The following attachments cannot be sent through Care Everywhere. * Back: Strain (Bruneian) [facility] Work Phone: Hospital Discharge instructions Additional Instructions Follow up with [facility] on February 02 as previously scheduled. You have an appointment for a surgical consultation with Dr. Morales on February 01 at 9:45am. His office is located in the Outpatient Pavilion at [address] [place] [address], [address]. Eat potassium-rich foods when able. A prescription for a potassium supplement will be sent to your pharmacy.[facility] Work Phone: Hospital Discharge instructions Additional Instructions EKG normal your labs troponin negative. Your thyroid levels normal. Use your home Zofran as needed. Tylenol Motrin as needed. Follow-up with cardiology with your history of A-fib and ablation in the past. If you develop any recurrent worsening symptoms, return to ED for reevaluation.[facility] Work Phone: Instructions* Attachments The following attachments cannot be sent through Care Everywhere. * Otitis Media (Bruneian) documented in this encounterOhioHealthReason for referral (narrative)* Consultation (Routine) - Pending Review Specialty Diagnoses / Procedures Referred By Elder merritt Referred To Contact Obstetrics and Gynecology Procedures AL OFFICE/OUTPATIENT NEW HIGH MDM 60-74 MINUTES Cheyanne Izaguirre, [address] [place] [address] Referral ID Status Reason Start Date Expiration Date Visits Requested Visits Authorized [id number] Pending Review Specialty Services Required 03/13/2023 09/09/2023 1 1 [facility] Work Phone: Reason for referral (narrative)No reason for referral information availableWKettering Health [facility] Work Phone: Reason for visit Narrative* Initial Evaluation . Low back pain/Neck pain. * Referred by: Davide Chao MD [facility] Work Phone: Reason for visit Narrative* Diagnostic Procedure Only (Routine) - Closed Specialty Diagnoses / Procedures Referred By Elder merritt Referred To Contact [facility] Diagnoses Uterine cyst Adenomyosis of uterus Procedures PELVIC US WHI US PELVIC NONOBSTETRIC REAL-TIME IMAGE COMPLETE Marina Snell, DIRECTOR OF MANAGED CARE.LEAVE COORDINATOR [address] [place] [address] Phone: tel: fax: [facility] [address] [place] [address] Referral ID Status Reason Start Date Expiration Date V isits Requested Visits Authorized [id number] Closed Auto-Generate d Referral 09/05/2024 09/05/2025 1 1 [facility] Summary Purpose Family History Unknown Family [...] Documents on File Type Date Recorded 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 Superintendent Meters Expl anation Advance Directives and Livin g Will 09/01/2018 5:16 PM Documents on File Type Date Recorded Patient Superintendent Meters Expl anation Advance Directives and Livin g Will 09/01/2018 5:16 PM Latest Code Status on File Code Status Date Activated Date Inactivated Comments Full Code - Unverified 09/26/2020 8:24 PM 09/26/2020 10: 50 PM Documents on File Type Date Recorded 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 Superintendent Meters Expl anation Advance Directives and Livin g Will 09/27/2020 5:16 PM Documents on File Type Date Recorded Patient Superintendent Meters Expl anation Advance Directives and Livin g Will 05/17/2021 1:51 PM Latest Code Status on File Code Status Date Activated Date Inactivated Comments Full Code - Unverified 09/26/2020 8:24 PM 09/26/2020 10: 50 PM Documents on File Type Date Recorded Patient Superintendent Meters Expl anation Advance Directive(s) Advance Directive(s) 10/17/2018 [...] No September 25, 2020 3:03pm Power of Jacquard Card Cutter No September 25 3:03pm Advance Directive Response Recorded Date/ Time Advance Directives No July 2:22am Living Will No September 25, 2020 4:03pm Power of Jacquard Card Cutter No September 25 4:03pm Advance Directive Response Recorded Date/ Time Advance Directives No July 2:22am Living Will No January 23 3 9:45pm Power of Jacquard Card Cutter No January 23, 2 023 9:45pm Advance Directive Response Recorded Date/ Time Advance Directives No July 2:22am Living Will No March 09 3 5:42pm Power of Jacquard Card Cutter No March 09, 2 023 5:42pm Advance Directive Response Recorded Date/ Time Advance Directives No July 1:22am Living Will No March 09 3 4:42pm Power of Jacquard Card Cutter No March 09, 2 023 4:42pm Advance Directive Response Recorded Date/ Time Advance Directives No July 2:22am Living Will No September 21, 2023 8:57am Power of Jacquard Card Cutter No September 20 8:57am Advance Directive Response Recorded Date/ Time Advance Directives No April 10:08am Advance Directive Response Recorded Date/ Time Do you have a Healthcare Power of Jacquard Card Cutter? No November 23, 2024 8:22pm Advance Directives No April 10:08am Discharge Instructions * Instructions* Davide Marion PA-C - 09/01/2018 THE UROLOGIST AT [facility] STATES THAT YOUR KIDNEY STONE IS JUST ABOVE THE LEVEL OF YOUR URINARY BLADDER AND SHOULD PASS IN THE NEAR FUTURE. IF YOU ARE STILL EXPERIENCING SYMPTOMS ON MONDAY MORNING YOU MUST CONTACT YOUR UROLOGIST AT [facility]. OUR UROLOGIST ALSO STATES THAT YOU SHOULD RETURN TO THE EMERGENCY DEPARTMENT IF YOU DEVELOP A FEVER. YOU SHOULD TAKE YOUR TEMPERATURE AT HOME ON A REGULAR BASIS TO SEE IF YOU ARE DEVELOPING A FEVER THAT YOU MAY NOT NOTICE. * Attachments The following attachments cannot be sent through Care Everywhere. * Kidney Stone (Bruneian) in this encounter Assessments Diagnosis Kidney stone on left side- Primary Diagnosis Cervical pain- Primary Cervicalgia Reason for Referral Status Reason Specialty Diagnoses / Procedures Referred By Contact Referred To Contact Authorized Neurosurgery Diagnoses Cervical pain Davide Chao MD [address] [place] [id number] [facility] [address] [place] [address] Specialty Diagnoses / Procedures Referred By Contac t Referred To Contact Cardiology Diagnoses Palpitations Procedures Extended Holter Monitor (3-7 days) Yuri Palencia MD [address] [place] [id number] Referral ID Status Reason Start Date Expiration Date Visits Re quested Visits Authorized [id number] Closed 05/17/2021 05/17/2022 1 1 Specialty Diagnoses / Procedures Referred By Contac t Referred To Contact Cardiology Diagnoses Palpitations Procedures Echocardiogram complete Yuri Palencia MD [address] [place] [id number] Referral ID Status Reason Start Date Expiration Date V isits Requested Visits Authorized [id number] New Request 05/17/2021 05/17/2022 1 1 Specialty Diagnoses / Procedures Referred By Contac t Referred To Contact Radiology Diagnoses , unspecified gestational age Procedures US OB TRANSVAGINAL Yaniv Pederson MD [address] [place] [address] Referral ID Status Reason Start Date Expiration Date Visits Re quested Visits Authorized [id number] Open 07/26/2022 07/26/2023 1 1 Specialty Diagnoses / Procedures Referred By Contac t Referred To Contact [facility] Diagnoses Chronic bilateral low back pain with left-sided sciatica Procedures CONSULT TO PHYSICAL THERAPY PHYSICAL THERAPY EVALUATION [facility] COMPLEX 45 MINS Davide Chao MD [address] [place] [address] [facility] [place] [address] [place] [address] Referral ID Status Reason Start Date Expiration Date Visits Requested Visits Authorized [id number] Pending Review Auto-Generat ed Referral 10/10/2022 10/10/2023 1 1 Specialty Diagnoses / Procedures Referred By Contac t Referred To Contact Cardiology Diagnoses History of PSVT (paroxysmal supraventricular tachycardia) Procedures CONSULT TO CARDIOLOGY OFFICE/OUTPATIENT [facility] MDM 60-74 MINUTES Davide Chao MD [address] [place] [address] Referral ID Status Reason Start Date Expiration Date Visits Requested Visits Authorized [id number] Authorized PCP Requested Referral 10/10/2022 10/10/2023 1 1 Specialty Diagnoses / Procedures Referred By Contac t Referred To Contact Cardiovascular Medicine Diagnoses Near syncope Tachycardia Procedures HOLTER MONITOR - USP Alina Alvarado MD [address] [facility] 1[address] [place] [address] [facility] Screenplay Writer [address] [place] [address] Referral ID Status Reason Start Date Expiration Date Visits Re quested Visits Authorized [id number] Closed 05/24/2023 06/17/2024 1 1 Specialty Diagnoses / Procedures Referred By Contac t Referred To Contact Diagnoses ADHD (attention deficit hyperactivity disorder), combined type Davide Chao MD [address] [place] [address] Referral ID Status Reason Start Date Expiration Date V isits Requested Visits Authorized [id number] Pending Review 1 1 Chief Complaint Patient [...] Complaint EORDERS Rhogam Inj VIABILITY NOB LMP 1 PAP, Reason for Visit Depression affecting Herpes simplex infection during , antepartum [id number] History of pre-eclampsia Rh negative status during Spotting Supervision of high risk , antepartum Chief Complaint EORDERS Rhogam Inj VIABILITY NOB LMP 1 PAP, 14 WK OB Reason for Visit Depression affecting Herpes simplex infection during , antepartum [id number] History of pre-eclampsia Rh negative status during Spotting Supervision of high risk , antepartum Depression affecting Herpes simplex infection during , antepartum [id number] History of pre-eclampsia Rh negative status during Spotting Supervision of high risk , antepartum Chief Complaint EORDERS Rhogam Inj VIABILITY NOB LMP 1 PAP, 14 WK OB 19 wk ob ANATOMY 18-20 WEEKS Reason for Visit Depression affecting Herpes simplex infection during , antepartum [id number] History of pre-eclampsia Rh negative status during Spotting Supervision of high risk , antepartum Depression affecting Herpes simplex infection during , antepartum [id number] History of pre-eclampsia Rh negative status during Spotting Supervision of high risk , antepartum Depression affecting Herpes simplex infection during , antepartum [id number] History of pre-eclampsia Rh negative status during Spotting Supervision of high risk , antepartum Chief Complaint 14 WK OB 19 wk ob ANATOMY 18-20 WEEKS rhogam 23 WK OB 27 WK OB/GLUCOSE 30 WK OB R/O UTI R/O UTI palpitations Reason for Visit Depression affecting Herpes simplex infection during , antepartum [id number] History of pre-eclampsia Rh negative status during Spotting Supervision of high risk , antepartum Depression affecting Herpes simplex infection during , antepartum [id number] History of pre-eclampsia Rh negative status during Spotting Supervision of high risk , antepartum Rh negative status during Depression affecting Herpes simplex infection during , antepartum [id number] History of pre-eclampsia Rh negative status during Spotting Supervision of high risk , antepartum Chronic headache Arthritis pain, hip Depression affecting Herpes simplex infection during , antepartum [id number] History of pre-eclampsia Rh negative status during Sciatic leg pain Supervision of high risk , antepartum Chronic headache Abnormal glucose Back pain Depression affecting Herpes simplex infection during , antepartum [id number] History of pre-eclampsia Rh negative status during Supervision of high risk , antepartum Vaginal discharge during Chronic headache UTI in Chief Complaint 19 wk ob ANATOMY 18-20 WEEKS rhogam 23 WK OB 27 WK OB/GLUCOSE 30 WK OB R/O UTI R/O UTI palpitations DORSALGIA, 23 WKS /NST Reason for Visit Depression affecting Herpes simplex infection during , antepartum [id number] History of pre-eclampsia Rh negative status during Spotting Supervision of high risk , antepartum Rh negative status during Depression affecting Herpes simplex infection during , antepartum [id number] History of pre-eclampsia Rh negative status during Spotting Supervision of high risk , antepartum Chronic headache Arthritis pain, hip Depression affecting Herpes simplex infection during , antepartum [id number] History of pre-eclampsia Rh negative status during Sciatic leg pain Supervision of high risk , antepartum Chronic headache Abnormal glucose Back pain Depression affecting Herpes simplex infection during , antepartum [id number] History of pre-eclampsia Rh negative status during [...] affecting Herpes simplex infection during , antepartum [id number] History of pre-eclampsia Rh negative status during Spotting Supervision of high risk , antepartum Rh negative status during Depression affecting Herpes simplex infection during , antepartum [id number] History of pre-eclampsia Rh negative status during Spotting Supervision of high risk , antepartum Chronic headache Arthritis pain, hip Depression affecting Herpes simplex infection during , antepartum [id number] History of pre-eclampsia Rh negative status during Sciatic leg pain Supervision of high risk , antepartum Chronic headache Abnormal glucose Back pain Depression affecting Herpes simplex infection during , antepartum [id number] History of pre-eclampsia Rh negative status during Supervision of high risk , antepartum Vaginal discharge during Chronic headache UTI in Depression affecting Elevated bilirubin Hypokalemia Pruritus of Supervision of high risk , antepartum Elevated bilirubin Abnormal glucose Arthritis pain, hip Back pain Chlamydia infection affecting Cholestasis during Depression affecting Elevated bilirubin Herpes simplex infection during , antepartum [id number] History of pre-eclampsia Hx of cholecystectomy Hypokalemia Pruritus of Rh negative status during Sciatic leg pain Spotting Supervision of high risk , antepartum UTI in Vaginal discharge during Chronic headache Abnormal glucose Arthritis pain, hip Back pain Chlamydia infection affecting Depression affecting Elevated bilirubin Herpes simplex infection during , antepartum [id number] History of pre-eclampsia Hx of cholecystectomy Hypokalemia [...] affecting Herpes simplex infection during , antepartum [id number] History of pre-eclampsia Rh negative status during Spotting Supervision of high risk , antepartum Chronic headache Arthritis pain, hip Depression affecting Herpes simplex infection during , antepartum [id number] History of pre-eclampsia Rh negative status during Sciatic leg pain Supervision of high risk , antepartum Chronic headache Abnormal glucose Back pain Depression affecting Herpes simplex infection during , antepartum [id number] History of pre-eclampsia Rh negative status during Supervision of high risk , antepartum Vaginal discharge during Chronic headache UTI in Depression affecting Elevated bilirubin Hypokalemia Pruritus of Supervision of high risk , antepartum Elevated bilirubin Abnormal glucose Arthritis pain, hip Back pain Chlamydia infection affecting Cholestasis during Depression affecting Elevated bilirubin Herpes simplex infection during , antepartum [id number] History of pre-eclampsia Hx of cholecystectomy Hypokalemia Pruritus of Rh negative status during Sciatic leg pain Spotting Supervision of high risk , antepartum UTI in Vaginal discharge during Chronic headache Abnormal glucose Arthritis pain, hip Back pain Chlamydia infection affecting Depression affecting Elevated bilirubin Herpes simplex infection during , antepartum [id number] History of pre-eclampsia Hx of cholecystectomy Hypokalemia [...] affecting Herpes simplex infection during , antepartum [id number] History of pre-eclampsia Rh negative status during Supervision of high risk , antepartum Chronic headache Spotting Depression affecting Herpes simplex infection during , antepartum [id number] History of pre-eclampsia Rh negative status during Supervision of high risk , antepartum Chronic headache Arthritis pain, hip Sciatic leg pain Abnormal glucose Depression affecting Herpes simplex infection during , antepartum [id number] History of pre-eclampsia Rh negative status during Supervision of high risk , antepartum Chronic headache Back pain Vaginal discharge during UTI in Depression affecting Elevated bilirubin Supervision of high risk , antepartum Hypokalemia Pruritus of Elevated bilirubin Abnormal glucose Chlamydia infection affecting Depression affecting Elevated bilirubin Herpes simplex infection during , antepartum [id number] History of pre-eclampsia Rh negative status during Supervision of high risk , antepartum Chronic headache Arthritis pain, hip Back pain Cholestasis during Hypokalemia Pruritus of Sciatic leg pain Spotting UTI in Vaginal discharge during Abnormal glucose Chlamydia infection affecting Depression affecting Elevated bilirubin Herpes simplex infection during , antepartum [id number] History of pre-eclampsia Rh negative status during Supervision of high risk , antepartum Chronic headache Arthritis pain, hip Back pain Hypokalemia Pruritus of Sciatic leg pain Spotting Vaginal discharge during Abnormal glucose Chlamydia infection affecting Depression affecting Elevated bilirubin Herpes simplex infection during , antepartum [id number] History of pre-eclampsia Rh negative status during [...] affecting Herpes simplex infection during , antepartum [id number] History of pre-eclampsia Rh negative status during Supervision of high risk , antepartum Chronic headache Spotting Depression affecting Herpes simplex infection during , antepartum [id number] History of pre-eclampsia Rh negative status during Supervision of high risk , antepartum Chronic headache Arthritis pain, hip Sciatic leg pain Abnormal glucose Depression affecting Herpes simplex infection during , antepartum [id number] History of pre-eclampsia Rh negative status during Supervision of high risk , antepartum Chronic headache Back pain Vaginal discharge during UTI in Depression affecting Elevated bilirubin Supervision of high risk , antepartum Hypokalemia Pruritus of Elevated bilirubin Abnormal glucose Chlamydia infection affecting Depression affecting Elevated bilirubin Herpes simplex infection during , antepartum [id number] History of pre-eclampsia Rh negative status during Supervision of high risk , antepartum Chronic headache Arthritis pain, hip Back pain Cholestasis during Hypokalemia Pruritus of Sciatic leg pain Spotting UTI in Vaginal discharge during Abnormal glucose Chlamydia infection affecting Depression affecting Elevated bilirubin Herpes simplex infection during , antepartum [id number] History of pre-eclampsia Rh negative status during Supervision of high risk , antepartum Chronic headache Arthritis pain, hip Back pain Hypokalemia Pruritus of Sciatic leg pain Spotting Vaginal discharge during Abnormal glucose Chlamydia infection affecting Depression affecting Elevated bilirubin Herpes simplex infection during , antepartum [id number] History of pre-eclampsia Rh negative status during [...] affecting Herpes simplex infection during , antepartum [id number] History of pre-eclampsia Rh negative status during Spotting Supervision of high risk , antepartum Arthritis pain, hip Chronic headache Depression affecting Herpes simplex infection during , antepartum [id number] History of pre-eclampsia Rh negative status during Sciatic leg pain Supervision of high risk , antepartum Abnormal glucose Back pain Chronic headache Depression affecting Herpes simplex infection during , antepartum [id number] History of pre-eclampsia Rh negative status during Supervision of high risk , antepartum Vaginal discharge during UTI in Depression affecting Elevated bilirubin Hypokalemia Pruritus of Supervision of high risk , antepartum Elevated bilirubin Abnormal glucose Arthritis pain, hip Back pain Chlamydia infection affecting Cholestasis during Chronic headache Depression affecting Elevated bilirubin Herpes simplex infection during , antepartum [id number] History of pre-eclampsia Hypokalemia Pruritus of Rh negative status during Sciatic leg pain Spotting Supervision of high risk , antepartum UTI in Vaginal discharge during Abnormal glucose Arthritis pain, hip Back pain Chlamydia infection affecting Chronic headache Depression affecting Elevated bilirubin Herpes simplex infection during , antepartum [id number] History of pre-eclampsia Hypokalemia Pruritus of Rh negative status during Sciatic leg pain Spotting Supervision of high risk , antepartum Vaginal discharge during Abnormal glucose Chlamydia infection affecting Chronic headache Depression affecting Elevated bilirubin Herpes simplex infection during , antepartum [id number] History of pre-eclampsia Hypokalemia Pruritus of Rh negative status during Social discord Sterilization Supervision of high risk , antepartum False labor after 37 completed weeks of gestation Abnormal glucose Chlamydia infection affecting Chronic headache Depression affecting Elevated bilirubin Herpes simplex infection during , antepartum [id number] History of pre-eclampsia Rh negative status during Social discord Sterilization Supervision of high risk , antepartum Abnormal glucose Chlamydia infection affecting Chronic headache Depression affecting Elevated bilirubin Herpes simplex infection during , antepartum [id number] History of pre-eclampsia Rh negative status during Social discord Sterilization Supervision of high risk , antepartum Status post tubal ligation Abnormal glucose Chlamydia infection affecting Chronic headache Depression affecting Elevated bilirubin Herpes simplex infection during , antepartum [id number] History of pre-eclampsia Rh negative status during [...] bilirubin Herpes simplex infection during , antepartum [id number] History of pre-eclampsia Rh negative status during Social discord Sterilization Supervision of high risk , antepartum Abnormal glucose Chlamydia infection affecting Chronic headache Depression affecting Elevated bilirubin Herpes simplex infection during , antepartum [id number] History of pre-eclampsia Rh negative status during Social discord Sterilization Supervision of high risk , antepartum Abnormal glucose Chlamydia infection affecting Chronic headache Depression affecting Elevated bilirubin Herpes simplex infection during , antepartum [id number] History of pre-eclampsia Rh negative status during [...] 1: 49pm bleeding after intercourse August 19, 025 2:42pm POSTCOITAL BLEEDING August 21, 2024 [...] LAB ORDER November 11, 2024 4:53p m Chief Complaint Admit Date bleeding after intercourse August 19, 2 025 2:42pm POSTCOITAL BLEEDING August 21, 2024 12: 29pm INT LAB ORDER November 11, 2024 4:53p m chest pain, abd pain November 23, 2024 8:2 1pm Chief Complaint Admit Date INT LAB ORDER November 11, 2024 4:53p m chest pain, abd pain November 23, 2024 8:2 1pm HSG December 20, 2024 11:4 4am HSG December 20, 2024 5:12 pm Reason for Visit Admit Date Tubal reversal surgical follow up December 032024 11:44am Chief Complaint Admit Date INT LAB ORDER November 11, 2024 4:53p m chest pain, abd pain November 23, 2024 8:2 1pm HSG December 20, 2024 11:4 4am HSG December 20, 2024 5:12 pm EPISODIC TACHYCARDIA December 31, 2024 11: 36am Possible BV January 03, 2025 3:3 0pm Reason for Visit Admit Date Tubal reversal surgical follow up December 032024 11:44am Amenorrhea January 03, 2025 3:3 0pm Vaginal odor January 03, 2025 3:3 0pm Additional Source Comments INFORMATION SOURCE (unrecogn ized section and content) DATE CREATED AUTHOR 11/25/2017 [facility] DATE CREATED AUTHOR AUTHOR'S ORGANIZ ATION 07/25/2018 [facility] DATE CREATED AUTHOR AUTHOR'S ORGANIZ ATION 09/04/2018 [facility] DATE CREATED AUTHOR AUTHOR'S ORGANIZ ATION 09/27/2018 [facility] DATE CREATED AUTHOR AUTHOR'S ORGANIZ ATION 10/26/2018 [facility] DATE CREATED AUTHOR AUTHOR'S ORGANIZ ATION 10/27/2018 [facility] DATE CREATED AUTHOR AUTHOR'S ORGANIZ ATION 02/15/2021 [facility] DATE CREATED AUTHOR AUTHOR'S ORGANIZ ATION 06/01/2021 [facility] DATE CREATED AUTHOR AUTHOR'S ORGANIZ ATION 06/02/2021 [facility] DATE CREATED AUTHOR AUTHOR'S ORGANIZ ATION 06/28/2021 [facility] DATE CREATED AUTHOR AUTHOR'S ORGANIZ ATION 11/21/2021 [facility] DATE CREATED AUTHOR AUTHOR'S ORGANIZ ATION 08/11/2022 [facility] DATE CREATED AUTHOR AUTHOR'S ORGANIZ ATION 08/11/2022 [facility] DATE CREATED AUTHOR AUTHOR'S ORGANIZ ATION 08/12/2022 [facility] DATE CREATED AUTHOR AUTHOR'S ORGANIZ ATION 10/11/2022 [facility] DATE CREATED AUTHOR AUTHOR'S ORGANIZ ATION 11/30/2022 [facility] DATE CREATED AUTHOR AUTHOR'S ORGANIZ ATION 11/30/2022 [facility] DATE CREATED AUTHOR AUTHOR'S ORGANIZ ATION 06/02/2023 [facility] DATE CREATED AUTHOR AUTHOR'S ORGANIZ ATION 02/09/2024 [facility] DATE CREATED AUTHOR AUTHOR'S ORGANIZ ATION 03/27/2024 [facility] DATE CREATED AUTHOR AUTHOR'S ORGANIZ ATION 08/18/2024 [facility] DATE CREATED AUTHOR AUTHOR'S ORGANIZ ATION 09/13/2024 [facility] DATE CREATED AUTHOR AUTHOR'S ORGANIZ ATION 12/08/2024 [facility] DATE CREATED AUTHOR AUTHOR'S ORGANIZ ATION 12/26/2024 [facility] DATE CREATED AUTHOR AUTHOR'S ORGANIZ ATION 01/03/2025 [facility] Reason for Visit (unrecogniz ed section and content) Reason Comments Flank Pain pt was seen at [facility] yesterday and told to stay for treatment of kidneu stone. pt staets she left AMA and is here today for treatment. Reason Comments Blurred Vision Reason Comments Palpitations Specialty Diagnoses / Procedures Referred By Elder t Referred To Contact Cardiology Diagnoses heart pounding Maricel Simeon MD [address] [place] [address] Referral ID Status Reason Start Date Expiration Date Visits Re quested Visits Authorized [id number] Closed 05/16/2021 05/16/2022 1 1 Reason Comments [...] out Specialty Diagnoses / Procedures Referred By Contac t Referred To Contact Radiology Diagnoses , unspecified gestational age Procedures US OB TRANSVAGINAL Yaniv Pederson MD [address] [place] [address] Referral ID Status Reason Start Date Expiration Date Visits Re quested Visits Authorized [id number] Open 07/26/2022 07/26/2023 1 1 Reason Comments Referral Request Specialty Diagnoses / Procedures Referred By Contac t Referred To Contact Cardiovascular Medicine Diagnoses Tachycardia Near syncope Dizziness and giddiness Procedures HOLTER MONITOR - USP Alina Alvarado MD [address] [place] [id number] [employer] Writer [address] [place] [phone] Referral ID Status Reason Start Date Expiration Date Visits Re quested Visits Authorized [id number] Closed 10/20/2022 11/14/2023 1 1 Reason Comments [...] Request Specialty Diagnoses / Procedures Referred By Elder t Referred To Contact Cardiovascular Medicine Diagnoses Near syncope Tachycardia Procedures HOLTER MONITOR - USP Alina Alvarado MD [address] [place] [id number] [employer] Writer [address] [place] [phone] Referral ID Status Reason Start Date Expiration Date Visits Re quested Visits Authorized [id number] Closed 05/24/2023 06/17/2024 1 1 Reason Comments Vaginal Bleeding Pt has been having h eavy menstrual bleeding x approx 36 hours. Denies , has had tubal ligation. Reports lower abd cramping, mild light-headedness and headache. Specialty Diagnoses / Procedures Referred By Elder t Referred To Contact Diagnoses Near syncope Procedures TILT TABLE TEST Alina Alvarado MD [address] [place] [address] Referral ID Status Reason Start Date Expiration Date Visits Re quested Visits Authorized [id number] Closed 05/16/2023 06/09/2024 1 1 Reason Onset [...] Comments Ovarian Cyst Reason Comments Faxed to [facility] Bernardo Sibley RN - 09/01/2018 9:05 PM EDBernardo Anguiano RN - 09/01/2018 8:50 PM EDEden Thompson, EMT - 09/01/2018 7:28 PM EDTAndry Santiago [...] Care Teams (unrecognized sec tion and content) Big Machine Consultant Relationship Specialty Start Date End Date Davide Chao MD [address] [place] [address] [place] [id number] PCP - General Family Medicine 05/13/15 Big Machine Consultant Relationship Specialty Start Date End Date Davide Chao MD [address] [place] [phone] PCP - General Family Medicine 06/23/17 Big Machine Consultant Relationship Specialty Start Date End Date Davide Chao MD [address] [place] [address], [place] [address] PCP - General Family Medicine 05/13/15 Big Machine Consultant Relationship Specialty Start Date End Date Davide Chao MD [address] [place] [address], [place] [address] PCP - General 04/07/09 Big Machine Consultant Relationship Specialty Start Date End Date Davide Chao MD [address] [place] [address], [place] [address] PCP - General 04/07/09 Big Machine Consultant Relationship Specialty Start Date End Date Davide Chao MD [address] [place] [address], [place] [address] PCP - General 04/07/09 Big Machine Consultant Relationship Specialty Start Date End Date Davide Chao MD [address] [place] [address], [place] [address] PCP - General 04/07/09 Big Machine Consultant Relationship Specialty Start Date End Date Davide Chao [address] [place] [address], [place] [address] PCP - General 08/22/18 Big Machine Consultant Relationship Specialty Start Date End Date Davide Chao [address] [place] [address] PCP - General 08/22/18 Big Machine Consultant Relationship Specialty Start Date End Date Davide Chao [address] [place] [address] PCP - General 08/22/18 Big Machine Consultant Relationship Specialty Start Date End Date WillieDavide liz [address] [place] [address] PCP - General 08/22/18 Team Status: Active [...] MD Primary Care Provider Active Love Castillo PREPAROLE COUNSELING AIDE, PREPAROLE COUNSELING AIDE-C Attending Provider Active Team Status: Inactive Member Role Status Dates Dr. Davide Chao MD Primary Care Provider, Referr ing Provider Active Dr. Melissa Brasher DO Attending Provider Activ e Team Status: Inactive Member Role Status Dates Dr. Davide Chao MD Primary Care Provider Active Love Castillo PREPAROLE COUNSELING AIDE, PREPAROLE COUNSELING AIDE-C Attending Provider Active Team Status: Inactive Member Role Status Dates Dr. Davide Chao MD Primary Care Provider Active Dr. Melissa Brasher DO Attending Provider, Refe rring Provider Active Big Machine Consultant Relationship Specialty Start Date End Date Davide Chao MD [address] [place] [address] PCP - General 04/07/09 Big Machine Consultant Relationship Specialty Start Date End Date Davide Chao MD [address] [place] [id number] PCP - General Family Medicine 06/23/17 Team Status: Inactive Member Role Status Dates Dr. Davide Chao MD Primary Care Provider, Referr ing Provider Active Laura Salinas CNM Attending Provider Active Team Status: Inactive Member Role Status Dates Dr. Davide Chao MD Primary Care Provider, Referr ing Provider Active Love Castillo PREPAROLE COUNSELING AIDE, PREPAROLE COUNSELING AIDE-C Attending Provider Active Team Status: Inactive Member Role Status Dates Dr. Davide Chao MD Primary Care Provider, Referr ing Provider Active Jeanette Roach CNM Attending Provider Active Team Status: Active Member Role Status Dates Dr. Davide Chao MD Primary Care Provider Active Dr. Yrui Crenshaw MD Attending Pr ovider, Referring Provider, [...] Active Jeanette Roach CNM Other Provider Active Big Machine Consultant Relationship Specialty Start Date End Date Davide Chao MD [address] [place] [address] PCP - General 04/07/09 Team Status: Inactive Member Role Status Dates Dr. Davide Chao MD Primary Care Provider Active Dr. Car Gage DO Attending Provider, Emergency Provider Active Team Status: Inactive Member Role Status Dates Dr. Davide Chao MD Primary Care Provider Active Dr. Yuri Crenshaw MD Other Provider Active Love Castillo PREPAROLE COUNSELING AIDE, PREPAROLE COUNSELING AIDE-C Other Provider Active Laura Salinas CNM Attending Provider, Referring Pr ovider Active Big Machine Consultant Relationship Specialty Start Date End Date Davide Chao MD [address] [place], [place] [address] PCP - General 04/07/09 Team Status: Inactive Member Role Status Dates Dr. Davide Chao MD Primary Care Provider, Referr ing Provider Active Dr. Zander Morales MD Attending Provider Active Team Status: Active Member Role Status Dates Dr. Davide Chao MD Primary Care Provider Active Dr. Yuri Crenshaw MD Other Provider Active Love Castillo PREPAROLE COUNSELING AIDE, PREPAROLE COUNSELING AIDE-C Other Provider Active Laura Salinas CNM Attending [...] Dr. Yuri Crenshaw MD Other Provider Active Big Machine Consultant Relationship Specialty Start Date End Date Davide Chao MD [address] [place] [address] PCP - General 06/13/19 Team Status: Active [...] CNM Attending Provider, Referring Pro vider Active Big Machine Consultant Relationship Specialty Start Date End Date Davide Chao MD [address] [place] [address] PCP - General 04/07/09 Big Machine Consultant Relationship Specialty Start Date End Date Davide Chao MD [address] [place], [place] [id number] PCP - General 04/07/09 Big Machine Consultant Relationship Specialty Start Date End Date Davide Chao MD [address] [place] [address] PCP - General 06/13/19 Big Machine Consultant Relationship Specialty Start Date End Date Davide Chao MD [address] [place] [address] PCP - General 04/07/09 Big Machine Consultant Relationship Specialty Start Date End Date Davide Chao MD [address] [place] [address] PCP - General Family Medicine 06/23/17 Big Machine Consultant Relationship Specialty Start Date End Date Davide Chao MD [address] [place] [address] PCP - General 06/13/19 Big Machine Consultant Relationship Specialty Start Date End Date Davide Chao MD [address] [place] [id number] PCP - General Family Medicine 06/23/17 Team Status: Active Member Role Status Dates Dr. Davide Chao MD Primary Care Provider Active Love Castillo PREPAROLE COUNSELING AIDE, PREPAROLE COUNSELING AIDE-C Attending Provider, Referring Provider Active Team Status: Inactive Member Role Status Dates Dr. Davide Chao MD Primary Care Provider Active Love Castillo PREPAROLE COUNSELING AIDE, PREPAROLE COUNSELING AIDE-C Attending Provider, Referring Provider Active Big Machine Consultant Relationship Specialty Start Date End Date Davide Chao MD [address] [place] [address] PCP - General 04/07/09 Big Machine Consultant Relationship Specialty Start Date End Date Davide Chao MD [address] [place] [address] PCP - General 04/07/09 Big Machine Consultant Relationship Specialty Start Date End Date Davide Chao MD [address] [place] [address] PCP - General 04/07/09 Big Machine Consultant Relationship Specialty Start Date End Date Davide Chao MD [address] [place] [address] PCP - General 04/07/09 Big Machine Consultant Relationship Specialty Start Date End Date Davide Chao MD [address] [place] [address] PCP - General 04/07/09 Big Machine Consultant Relationship Specialty Start Date End Date Davide Chao MD [address] [place] [address] PCP - General 04/07/09 Big Machine Consultant Relationship Specialty Start Date End Date Davide Chao MD [address] [place] [address] PCP - General 04/07/09 Big Machine Consultant Relationship Specialty Start Date End Date Davide Chao MD [address] [place] [address] PCP - General 04/07/09 Harini Rock APRN.LEAVE COORDINATOR [address] [place] [address] Nuclear Physicist Family Medicine 05/12/24 Isaac Marie APRN.LEAVE COORDINATOR [address] [place] [address] Nuclear Physicist Family Medicine 05/21/24 Big Machine Consultant Relationship Specialty Start Date End Date Davide Chao MD [address] [place] [address] PCP - General 04/07/09 Harini Rock APRN.LEAVE COORDINATOR [address] [place] [address] Nuclear Physicist Family Medicine 05/12/24 Isaac Marie APRN.LEAVE COORDINATOR [address] [place] [address] [facility] Big Machine Consultant Relationship Specialty Start Date End Date Davide Chao MD [address] [place], [place] [address] PCP - General 04/07/09 Harini Rock, DIRECTOR OF MANAGED CARE.LEAVE COORDINATOR [address] [place] [address] [facility] 05/12/24 Isaac Marie DIRECTOR OF MANAGED CARE.LEAVE COORDINATOR [address] [place] [address] [facility] 05/21/24 Big Machine Consultant Relationship Specialty Start Date End Date Davide Chao MD [address] [place] [address] PCP - General 04/07/09 Harini Rock, DIRECTOR OF MANAGED CARE.LEAVE COORDINATOR [address] [place] [address] [facility] 05/12/24 Isaac Marie DIRECTOR OF MANAGED CARE.LEAVE COORDINATOR [address] [place] [address] [facility] 05/21/24 Team Status: Active Member Role Status Dates Dr. Davide Chao MD Primary Care Provider Active Team Status: Inactive Member Role Status Dates Dr. Davide Chao MD Primary Care Provider Active Start: June 10, 2024 End: June 10, 2024 Dr. Davide Chao MD Referring Provider Active Start: June 10, 2024 End: June 10, 2024 Love Castillo PREPAROLE COUNSELING AIDE, PREPAROLE COUNSELING AIDE-C Attending Provider Active Start: June 10, 2024 End: June 10, 2024 Team Status: Inactive Member Role Status Dates Dr. Davide Chao MD Primary Care Provider Active Start: June 10, 2024 End: June 10, 2024 Love Castillo NP, PREPAROLE COUNSELING AIDE-C Attending Provider Active Start: June 10, 2024 End: June 10, 2024 Love Castillo PREPAROLE COUNSELING AIDE, PREPAROLE COUNSELING AIDE-C Referring Provider Active Start: June 10, 2024 [...] August 21, 2024 End: August 21, 2024 Big Machine Consultant Relationship Specialty Start Date End Date Davide Chao MD [address] [place] [address] PCP - General 04/07/09 Harini Rock APRN.LEAVE COORDINATOR [address] [place] [address] [facility] 05/12/24 Isaac Marie APRN.LEAVE COORDINATOR [address] [place] [address] [facility] 05/21/24 Big Machine Consultant Relationship Specialty Start Date End Date Davide Chao MD [address] [place] [address] PCP - General 04/07/09 Harini Rock APRN.LEAVE COORDINATOR [address] [place] [address] [facility] 05/12/24 Isaac Marie APRN.LEAVE COORDINATOR [address] [place] [address] [facility] 05/21/24 Big Machine Consultant Relationship Specialty Start Date End Date Davide Chao MD [address] [place] [address] PCP - General 04/07/09 Harini Rock APRN.LEAVE COORDINATOR [address] [place] [address] Nuclear Physicist Family Medicine 05/12/24 10/16/24 Isaac Marie APRN.LEAVE COORDINATOR [address] [place], [place] [address] [facility] 05/21/24 Team Status: Inactive Member Role Status Dates Dr. Davide Chao MD Primary Care Provider Active Start: October 26, 2024 End: October 26, 2024 Dr. Melissa Brasher , DO Attending Provider Activ e Start: October 26, 2024 End: October 26, 2024 Dr. Melissa Brasher , DO Referring Provider Activ e Start: October 26, 2024 End: October 26, 2024 Big Machine Consultant Relationship Specialty Start Date End Date Davide Chao MD [address] [place] [address] PCP - General 04/07/09 Harini Rock APRN.LEAVE COORDINATOR [address] [place] [address] [facility] 05/12/24 10/16/24 Isaac Marie APRN.LEAVE COORDINATOR [address] [place] [address] [facility] 05/21/24 Team Status: Inactive Member Role Status Dates Dr. Davide Chao MD Primary Care Provider Active Start: November 11, 2024 End: November 11, 2024 Dr. Melissa Brasher , DO Attending Provider Activ e Start: November [...] November 15, 2024 End: November 15, 2024 Team Status: Inactive Member Role Status Dates Dr. Davide Chao MD Primary Care Provider Active Start: November 23, 2024 End: November 23, 2024 Dr. Ryan Pearson DO Emergency Provider Active Start : November 23, 2024 End: November 23, 2024 Team Status: Active Member Role/Relationship Status Dates Dr. Davide Chao MD Primary Care Provider Active Team Status: Inactive Member Role/Relationship Status Dates Dr. Davide Chao MD Primary Care Provider Active Start: October 26, 2024 End: October 26, 2024 Dr. Melissa Brasher DO Attending Provider Activ e Start: October 26, 2024 End: October 26, 2024 Dr. Melissa Brasher DO Referring Provider Activ e Start: October 26, 2024 End: October 26, 2024 Team Status: Inactive Member Role/Relationship Status Dates Dr. Davide Chao MD Primary Care Provider Active Start: November 11, 2024 End: November 11, 2024 Dr. Melissa Brasher DO Attending Provider Activ e Start: November 11, 2024 End: November 11, 2024 Dr. Melissa Brasher DO Referring Provider Activ e Start: November 11, 2024 End: November 11, 2024 Team Status: Inactive Member Role/Relationship Status Dates Dr. Davide Chao MD Primary Care Provider Active Start: November 15, 2024 End: November 15, 2024 Jeanette Roach CNM Attending Provider Active S tart: November 15, 2024 End: November 15, 2024 Jeanette Roach CNM Referring Provider Active S tart: November 15, 2024 End: November 15, 2024 Team Status: Inactive Member Role/Relationship Status Dates Dr. Davide Chao MD Primary Care Provider Active Start: November 23, 2024 End: November 23, 2024 Dr. Rayn Pearson DO Attending Provider Active Start : November 23, 2024 End: November 23, 2024 Dr. Ryan Pearson DO Emergency Provider Active Start : November 23, 2024 End: November 23, 2024 Team Status: Inactive Member Role/Relationship Status Dates Dr. Davide Chao MD Primary Care Provider Active Start: December 03, 2024 Dr. Bre Madrid MD Attending Provider Active Start: December 03, 2024 Team Status: Inactive Member Role/Relationship Status Dates Dr. Davide Chao MD Primary Care Provider Active Start: December 20, 2024 End: December 20, 2024 Dr. Melissa Brasher DO Attending Provider Activ e Start: December 20, 2024 End: December 20, 2024 Dr. Melissa Brasher DO Referring Provider Activ e Start: December 20, 2024 End: December 20, 2024 Team Status: Active Member Role/Relationship Status Dates Dr. Davide Chao MD Primary Care Provider Active Start: December 20, 2024 Dr. Melissa Brasher DO Attending Provider Activ e Start: December 20, 2024 Dr. Melissa Brasher DO Referring Provider Activ e Start: December 20, 2024 Dr. Melissa Brasher DO Other Provider Active Start: December 20, 2024 Team Status: Active Member Role/Relationship Status Dates Dr. Davide Chao MD Primary Care Provider Active Start: December 31, 2024 ALINAMAXX Attending Provider Active Star t: December 31, 2024 ALINA, ROBINAPRETERESA Referring Provider Active Star t: December 31, 2024 Team Status: Inactive Member Role/Relationship Status Dates Dr. Davide Chao MD Primary Care Provider Active Start: January 03, 2025 End: January 03, 2025 Dr. Davide Chao MD Referring Provider Active Start: January 03, 2025 End: January 03, 2025 Jeanette Roach CNM Attending Provider Active S tart: January 03, 2025 End: January 03, 2025 Team Status: Active Member Role/Relationship Status Dates Dr. Davide Chao MD Primary Care Provider Active Start: January 03, 2025 Jeanette Roach CNM Attending Provider Active S tart: January 03, 2025 Jeanette Roach CNM Referring Provider Active S tart: January 03, 2025 Source Comments (unrecognize d section and content) In the event this informatio n is protected by the Federal Confidentiality of Alcohol and Drug Abuse Patient Records regulations: The Federal rules restrict any use of the information to criminally investigate or prosecute any alcohol or drug abuse patient.[facility] the event this information is protected by the Federal Confidentiality of Alcohol and Drug Abuse Patient Records regulations: The Federal rules restrict any use of the information to criminally investigate or prosecute any alcohol or drug abuse patient.[facility] HospitalIn the event this information is protected by the Federal Confidentiality of Alcohol and Drug Abuse Patient Records regulations: The Federal rules restrict any use of the information to criminally investigate or prosecute any alcohol or drug abuse patient.[facility] HospitalIn the event this information is protected by the Federal Confidentiality of Alcohol and Drug Abuse Patient Records regulations: The Federal rules restrict any use of the information to criminally investigate or prosecute any alcohol or drug abuse patient.[facility] HospitalIn the event this information is protected by the Federal Confidentiality of Alcohol and Drug Abuse Patient Records regulations: The Federal rules restrict any use of the information to criminally investigate or prosecute any alcohol or drug abuse patient.[facility] HospitalIn the event this information is protected by the Federal Confidentiality of Alcohol and Drug Abuse Patient Records regulations: The Federal rules restrict any use of the information to criminally investigate or prosecute any alcohol or drug abuse patient.[facility] HospitalIn the event this information is protected by the Federal Confidentiality of Alcohol and Drug Abuse Patient Records regulations: The Federal rules restrict any use of the information to criminally investigate or prosecute any alcohol or drug abuse patient.[facility] HospitalIn the event this information is protected by the Federal Confidentiality of Alcohol and Drug Abuse Patient Records regulations: The Federal rules restrict any use of the information to criminally investigate or prosecute any alcohol or drug abuse patient.[facility] HospitalIn the event this information is protected by the Federal Confidentiality of Alcohol and Drug Abuse Patient Records regulations: The Federal rules restrict any use of the information to criminally investigate or prosecute any alcohol or drug abuse patient.[facility] HospitalIn the event this information is protected by the Federal Confidentiality of Alcohol and Drug Abuse Patient Records regulations: The Federal rules restrict any use of the information to criminally investigate or prosecute any alcohol or drug abuse patient.[facility] HospitalIn the event this information is protected by the Federal Confidentiality of Alcohol and Drug Abuse Patient Records regulations: The Federal rules restrict any use of the information to criminally investigate or prosecute any alcohol or drug abuse patient.[facility] HospitalIn the event this information is protected by the Federal Confidentiality of Alcohol and Drug Abuse Patient Records regulations: The Federal rules restrict any use of the information to criminally investigate or prosecute any alcohol or drug abuse patient.[facility] HospitalIn the event this information is protected by the Federal Confidentiality of Alcohol and Drug Abuse Patient Records regulations: The Federal rules restrict any use of the information to criminally investigate or prosecute any alcohol or drug abuse patient.[facility] HospitalIn the event this information is protected by the Federal Confidentiality of Alcohol and Drug Abuse Patient Records regulations: The Federal rules restrict any use of the information to criminally investigate or prosecute any alcohol or drug abuse patient.[facility] HospitalIn the event this information is protected by the Federal Confidentiality of Alcohol and Drug Abuse Patient Records regulations: The Federal rules restrict any use of the information to criminally investigate or prosecute any alcohol or drug abuse patient.[facility] HospitalIn the event this information is protected by the Federal Confidentiality of Alcohol and Drug Abuse Patient Records regulations: The Federal rules restrict any use of the information to criminally investigate or prosecute any alcohol or drug abuse patient.[facility] HospitalIn the event this information is protected by the Federal Confidentiality of Alcohol and Drug Abuse Patient Records regulations: The Federal rules restrict any use of the information to criminally investigate or prosecute any alcohol or drug abuse patient.[facility] HospitalIn the event this information is protected by the Federal Confidentiality of Alcohol and Drug Abuse Patient Records regulations: The Federal rules restrict any use of the information to criminally investigate or prosecute any alcohol or drug abuse patient.[facility] HospitalIn the event this information is protected by the Federal Confidentiality of Alcohol and Drug Abuse Patient Records regulations: The Federal rules restrict any use of the information to criminally investigate or prosecute any alcohol or drug abuse patient.[facility] HospitalIn the event this information is protected by the Federal Confidentiality of Alcohol and Drug Abuse Patient Records regulations: The Federal rules restrict any use of the information to criminally investigate or prosecute any alcohol or drug abuse patient.[facility] HospitalIn the event this information is protected by the Federal Confidentiality of Alcohol and Drug Abuse Patient Records regulations: The Federal rules restrict any use of the information to criminally investigate or prosecute any alcohol or drug abuse patient.[facility] HospitalIn the event this information is protected by the Federal Confidentiality of Alcohol and Drug Abuse Patient Records regulations: The Federal rules restrict any use of the information to criminally investigate or prosecute any alcohol or drug abuse patient.[facility] HospitalIn the event this information is protected by the Federal Confidentiality of Alcohol and Drug Abuse Patient Records regulations: The Federal rules restrict any use of the information to criminally investigate or prosecute any alcohol or drug abuse patient.[facility] HospitalIn the event this information is protected by the Federal Confidentiality of Alcohol and Drug Abuse Patient Records regulations: The Federal rules restrict any use of the information to criminally investigate or prosecute any alcohol or drug abuse patient.[facility] HospitalIn the event this information is protected by the Federal Confidentiality of Alcohol and Drug Abuse Patient Records regulations: The Federal rules restrict any use of the information to criminally investigate or prosecute any alcohol or drug abuse patient.[facility] HospitalIn the event this information is protected by the Federal Confidentiality of Alcohol and Drug Abuse Patient Records regulations: The Federal rules restrict any use of the information to criminally investigate or prosecute any alcohol or drug abuse patient.[facility] HospitalIn the event this information is protected by the Federal Confidentiality of Alcohol and Drug Abuse Patient Records regulations: The Federal rules restrict any use of the information to criminally investigate or prosecute any alcohol or drug abuse patient.[facility] HospitalIn the event this information is protected by the Federal Confidentiality of Alcohol and Drug Abuse Patient Records regulations: The Federal rules restrict any use of the information to criminally investigate or prosecute any alcohol or drug abuse patient.[facility] HospitalIn the event this information is protected by the Federal Confidentiality of Alcohol and Drug Abuse Patient Records regulations: The Federal rules restrict any use of the information to criminally investigate or prosecute any alcohol or drug abuse patient.[facility] HospitalIn the event this information is protected by the Federal Confidentiality of Alcohol and Drug Abuse Patient Records regulations: The Federal rules restrict any use of the information to criminally investigate or prosecute any alcohol or drug abuse patient.[facility] HospitalIn the event this information is protected by the Federal Confidentiality of Alcohol and Drug Abuse Patient Records regulations: The Federal rules restrict any use of the information to criminally investigate or prosecute any alcohol or drug abuse patient.[facility] HospitalIn the event this information is protected by the Federal Confidentiality of Alcohol and Drug Abuse Patient Records regulations: The Federal rules restrict any use of the information to criminally investigate or prosecute any alcohol or drug abuse patient.[facility] Ordered Prescriptions (unrec ognized section and [...] pain scores based on patient preference? Yes 2338 (Given - Provider: Jessica Tijerina RN) ondansetron ODT (Zofran-ODT) disintegrating tablet 4 mg (COMPLETED) 4 mg, oral, Once, On Mon06/06/23 at 2335, For 1 dose 2338 (Given - Provider: Jessica Tijerina RN) sodium chloride 0.9 % bolus 1,000 mL (COMPLETED) 1,000 mL, intravenous, at 1,000 mL/hr, Administer over 1 Hours, Once, On Mon06/06/23 at 2320, For 1 dose 2338 (New Bag - Provider: Jessica Tijerina RN) [...] BE BASED ON THE PRIMARY CLINICAL RECORDS. [employer] provides no warranty or guarantee of the accuracy or completeness of information in this document.
[2025-01-05 06:39] LABS: PROGESTERONE 16.7 ng/mL (.)
== END | disposition home or self-care (01) ==
PROVIDERS: Obstetrics & Gynecology; PCP Family Medicine; Referring Provider Advanced Practice Midwife; Visit Provider Advanced Practice Midwife
DX: N89.8 Other specified noninflammatory disorders of vagina (principal); N91.2 Amenorrhea, unspecified
CPT/HCPCS: 36415; 84144; 84702; 87070; 87205

== ENCOUNTER → 2025-01-05 | Outpatient (CLI) | payer MEDICAID, SELFPAY ==
--- OUTSIDE RECORDS SUMMARY | 2025-01-05 16:43 | XMS RPT_ITS | CCD ---
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 [place] [address] Performed By: #### 2 4321-2, 3016-3 ####[facility] [id number] [place] [id number] [place] CO2 [Moles/Vol] 21 mmol/L Low 22-30 [facility] Comment on above: Order Comment: Speci men Type: BLOOD SPECIMENOrdering Facility: [facility] Address: [address] [place] [address] Performed By: #### 2 4320-2, 3015-3 ####[facility] [id number] [place] [address] [place] Creatinine [Mass/Vol] 0.78 mg/dL Normal 0.58-0.96 [facility] Comment on above: Order Comment: Speci men Type: BLOOD SPECIMENOrdering Facility: [facility] Address: [address] [place] [address] Performed By: #### 2 4320-2, 3 ####[facility] [id number] [place] [address] [place] Creatinine and Glomerular filtration rate.predicted panel (S/P/Bld) 103 mL/min/1.73m??? Normal >=60 [facility] Comment on above: Order Comment: Speci men Type: BLOOD SPECIMENOrdering Facility: [facility] Address: [address] [place] [address] Result Comment: Yolanda mated Glomerular Filtration Rate [...] GFR. Performed By: #### 2 4320-2, 3015-3 ####[facility] [id number] [place] [id number] [place] Glucose [Mass/Vol] 77 mg/dL Normal 74-99 [facility] Comment on above: Order Comment: Casandra moran Type: BLOOD SPECIMENOrdering Facility: [facility] Address: [address] [place] [address] Result Comment: The [place] [employer] (ADA) provides guidance for cutoff [...] Standards of Medical Care in Diabetes 2016, [place] [employer]. Diabetes Care. 2016.39(Suppl 1). Performed By: #### 2 4321-2, 3015-3 ####[facility] [id number] [place] [address] [place] Potassium [Moles/Vol] 4.4 mmol/L Normal 3.7-5.1 [facility] Comment on above: Order Comment: Casandra moran Type: BLOOD SPECIMENOrdering Facility: [facility] Address: [address] [place] [address] Performed By: #### 2 4321-2, 3015-3 ####[facility] [id number] [facility] [place] [address] [place] Sodium [Moles/Vol] 137 mmol/L Normal 136-144 [facility] Comment on above: Order Comment: Primitivoi men Type: BLOOD SPECIMENOrdering Facility: [facility] Address: [address] [place], [place] [address] Performed By: #### 2 4321-2, 6-3 ####[facility] [id number] [place] [address] [place] Urea nitrogen [Mass/Vol] 17 mg/dL Normal 7-21 [facility] Comment on above: Order Comment: Speci men Type: BLOOD SPECIMENOrdering Facility: [facility] Address: [address] [place] [address] Performed By: #### 2 4321-2, 3016-3 ####[facility] [id number] [facility] [id number] [address] [place] CBC W Auto Differential pane l (Bld)on 10-17-2023 Basophils (Bld) [#/Vol] 0.05 10*3/uL [facility] Basophils/100 WBC (Bld) 0.5 % [facility] Differential cell count method Nom (Bld) Auto [facility] Eosinophils (Bld) [#/Vol] 0.27 10*3/uL [facility] Eosinophils/100 WBC (Bld) 2.8 % [facility] Erythrocyte distribution width (RBC) [Ratio] 14.9 % 11.5 - 15.0 % [facility] Hematocrit (Bld) [Volume fraction] 42.5 % 36.0 - 46.0 % [facility] Hemoglobin (Bld) [Mass/Vol] 13.6 g/dL 11.5 - 15.5 g/dL [facility] Immature granulocytes (Bld) [#/Vol] 0.03 10*3/uL [facility] Immature granulocytes/100 WBC (Bld) 0.3 % [facility] Lymphocytes (Bld) [#/Vol] 2.29 10*3/uL [facility] Lymphocytes/100 WBC (Bld) 24.1 % [facility] MCH (RBC) [Entitic mass] 27.8 pg 26.0 - 34.0 pg [facility] MCHC (RBC) [Mass/Vol] 32.0 g/dL 30.5 - 36.0 g/dL [facility] MCV (RBC) [Entitic vol] 86.9 fL 80.0 - 100.0 fL [facility] Monocytes (Bld) [#/Vol] 0.62 10*3/uL [facility] Monocytes/100 WBC (Bld) 6.5 % [facility] Neutrophils (Bld) [#/Vol] 6.26 10*3/uL [facility] Neutrophils/100 WBC (Bld) 65.8 % [facility] Nucleated RBC (Bld) [#/Vol] NINF [facility] Nucleated RBC/100 WBC (Bld) [Ratio] 0.0 % /100 WBC [facility] Platelet mean volume (Bld) [Entitic vol] 10.2 fL 9.0 - 12.7 fL [facility] Platelets (Bld) [#/Vol] 337 10*3/uL [facility] RBC (Bld) [#/Vol] 4.89 10*6/uL 3.90 - 5.2 0 m/uL [facility] WBC (Bld) [#/Vol] 9.52 10*3/uL [facility] Basophils (Bld) [#/Vol] 0.05 10*3/uL Normal <0.11 [facility] Comment on above: Order Comment: Speci men Type: BLOOD SPECIMENOrdering Facility: [facility] Address: [address] [place] [address] Performed By: #### 5 7021-8 ####[facility] [id number] [place] [address] [place] Basophils/100 WBC (Bld) 0.5 % Normal [facility] Comment on above: Order Comment: Speci men Type: BLOOD SPECIMENOrdering Facility: [facility] Address: [address] [place] [address] Performed By: #### 5 7021-8 ####[facility] [id number] [place] [address] [place] Differential cell count method Nom (Bld) Auto Normal [facility] Comment on above: Order Comment: Speci men Type: BLOOD SPECIMENOrdering Facility: [facility] Address: [address] [place] [address] Performed By: #### 5 7021-8 ####[facility] [id number] [place] [address] [place] Eosinophils (Bld) [#/Vol] 0.27 10*3/uL Normal <0.46 [facility] Comment on above: Order Comment: Speci men Type: BLOOD SPECIMENOrdering Facility: [facility] Address: [address] [place] [address] Performed By: #### 5 7021-8 ####[facility] [id number] [place] [address] [place] Eosinophils/100 WBC (Bld) 2.8 % Normal [facility] Comment on above: Order Comment: Speci men Type: BLOOD SPECIMENOrdering Facility: [facility] Address: [address] [place] [address] Performed By: #### 5 7021-8 ####[facility] [id number] [place] [address] [place] Erythrocyte distribution width (RBC) [Ratio] 14.9 % Normal 11.5-15.0 [facility] Comment on above: Order Comment: Speci men Type: BLOOD SPECIMENOrdering Facility: [facility] Address: [address] [place] [address] Performed By: #### 5 7021-8 ####[facility] [id number] [place] [address] [place] Hematocrit (Bld) [Volume fraction] 42.5 % Normal 36.0-46.0 [facility] Comment on above: Order Comment: Speci men Type: BLOOD SPECIMENOrdering Facility: [facility] Address: [address] [place] [address] Performed By: #### 5 7021-8 ####[facility] [id number] [place] [address] [place] Hemoglobin (Bld) [Mass/Vol] 13.6 g/dL Normal 11.5-15.5 [facility] Comment on above: Order Comment: Speci men Type: BLOOD SPECIMENOrdering Facility: [facility] Address: [address] [place] [address] Performed By: #### 5 7021-8 ####[facility] [id number] [place] [address] [place] Immature granulocytes (Bld) [#/Vol] 0.03 10*3/uL Normal <0.10 [facility] Comment on above: Order Comment: Speci men Type: BLOOD SPECIMENOrdering Facility: [facility] Address: [address] [place] [address] Performed By: #### 5 7021-8 ####[facility] [id number] [place] [address] [place] Immature granulocytes/100 WBC (Bld) 0.3 % Normal [facility] Comment on above: Order Comment: Speci men Type: BLOOD SPECIMENOrdering Facility: [facility] Address: [address] [place] [address] Performed By: #### 5 7021-8 ####[facility] [id number] [place] [address] [place] Lymphocytes (Bld) [#/Vol] 2.29 10*3/uL Normal 1.00-4.00 [facility] Comment on above: Order Comment: Speci men Type: BLOOD SPECIMENOrdering Facility: [facility] Address: [address] [place] [address] Performed By: #### 5 7021-8 ####[facility] [id number] [place] [address] [place] Lymphocytes/100 WBC (Bld) 24.1 % Normal [facility] Comment on above: Order Comment: Speci men Type: BLOOD SPECIMENOrdering Facility: [facility] Address: [address] [place] [address] Performed By: #### 5 7021-8 ####[facility] [id number] [place] [address] [place] MCH (RBC) [Entitic mass] 27.8 pg Normal 26.0-34.0 [facility] Comment on above: Order Comment: Speci men Type: BLOOD SPECIMENOrdering Facility: [facility] Address: [address] [place] [address] Performed By: #### 5 7021-8 ####[facility] [id number] [place] [address] [place] MCHC (RBC) [Mass/Vol] 32.0 g/dL Normal 30.5-36.0 [facility] Comment on above: Order Comment: Speci men Type: BLOOD SPECIMENOrdering Facility: [facility] Address: [address] [place] [address] Performed By: #### 5 7021-8 ####[facility] [id number] [place] [address] [place] MCV (RBC) [Entitic vol] 86.9 fL Normal 80.0-100.0 [facility] Comment on above: Order Comment: Speci men Type: BLOOD SPECIMENOrdering Facility: [facility] Address: [address] [place] [address] Performed By: #### 5 7021-8 ####[facility] [id number] [place] [address] [place] Monocytes (Bld) [#/Vol] 0.62 10*3/uL Normal <0.87 [facility] Comment on above: Order Comment: Speci men Type: BLOOD SPECIMENOrdering Facility: [facility] Address: [address] [place] [address] Performed By: #### 5 7021-8 ####[facility] [id number] [place] [address] [place] Monocytes/100 WBC (Bld) 6.5 % Normal [facility] Comment on above: Order Comment: Speci men Type: BLOOD SPECIMENOrdering Facility: [facility] Address: [address] [place] [address] Performed By: #### 5 7021-8 ####[facility] [id number] [place] [address] [place] Neutrophils (Bld) [#/Vol] 6.26 10*3/uL Normal 1.45-7.50 [facility] Comment on above: Order Comment: Speci men Type: BLOOD SPECIMENOrdering Facility: [facility] Address: [address] [place] [address] Performed By: #### 5 7021-8 ####[facility] [id number] [place] [address] [place] Neutrophils/100 WBC (Bld) 65.8 % Normal [facility] Comment on above: Order Comment: Speci men Type: BLOOD SPECIMENOrdering Facility: [facility] Address: [address] [place] [address] Performed By: #### 5 7021-8 ####[facility] [id number] [place] [address] [place] Nucleated RBC (Bld) [#/Vol] 10*3/uL Normal <0.01 [facility] Comment on above: Order Comment: Speci men Type: BLOOD SPECIMENOrdering Facility: [facility] Address: [address] [place] [address] Performed By: #### 5 7021-8 ####[facility] [id number] [place] [address] [place] Nucleated RBC/100 WBC (Bld) [Ratio] 0.0 /100 WBC Normal [facility] Comment on above: Order Comment: Speci men Type: BLOOD SPECIMENOrdering Facility: [facility] Address: [address] [place] [address] Performed By: #### 5 7021-8 ####[facility] [id number] [place] [address] [place] Platelet mean volume (Bld) [Entitic vol] 10.2 fL Normal 9.0-12.7 [facility] Comment on above: Order Comment: Speci men Type: BLOOD SPECIMENOrdering Facility: [facility] Address: [address] [place] [address] Performed By: #### 5 7021-8 ####[facility] [id number] [place] [address] [place] Platelets (Bld) [#/Vol] 337 10*3/uL Normal 150-400 [facility] Comment on above: Order Comment: Speci men Type: BLOOD SPECIMENOrdering Facility: [facility] Address: [address] [place] [address] Performed By: #### 5 7021-8 ####[facility] [id number] [place] [address] [place] RBC (Bld) [#/Vol] 4.89 10*6/uL Normal 3.90-5.20 [facility] Comment on above: Order Comment: Speci men Type: BLOOD SPECIMENOrdering Facility: [facility] Address: [address] [place] [address] Performed By: #### 5 7021-8 ####[facility] [id number] [place] [address] [place] WBC (Bld) [#/Vol] 9.52 10*3/uL Normal 3.70-11.00 [facility] Comment on above: Order Comment: Speci men Type: BLOOD SPECIMENOrdering Facility: [facility] Address: [address] [place] [address] Performed By: #### 5 7021-8 ####[facility] [id number] [place] [address] [place] CNOVon 10-17-2023 CNOV Office Visit (FAMPWS ) QUE ESCOBAR ([id number]) 1990 F [place] Date Time Provider Department [...] pulses bilaterally. (more content not included)... Normal [facility] HbA1c (Bld)on 10-17-2023 Average glucose Estimated from glycated hemoglobin (Bld) [Mass/Vol] 105 mg/dL [facility] Comment on above: eAG: (Estimated aver age glucose) is a calculated value from HgbA1c and is authorization representative of the average blood glucose level in the last 2-3 month period. HbA1c (Bld) [Mass fraction] 5.3 % 4.3 - 5.6 % [facility] Comment on above: [place] Diabetes As sociation guidelines indicate that patients with HgbA1c in the range 5.7-6.4% are at increased risk for development of diabetes, and intervention by lifestyle modification may be beneficial. HgbA1c greater or equal to 6.5% is considered diagnostic of diabetes. [facility] Average glucose Estimated from glycated hemoglobin (Bld) [Mass/Vol] 105 mg/dL Normal [facility] Comment on above: Order Comment: Speci men Type: BLOOD SPECIMENOrdering Facility: [facility] Address: [address] [place] [address] Result Comment: eAG: (Estimated average glucose) is a calculated value from HgbA1c and is authorization representative of the average blood glucose level in the last 2-3 month period. Performed By: #### 5 5454-3 ####[facility] [id number] [place] [address] [place] HbA1c (Bld) [Mass fraction] 5.3 % Normal 4.3-5.6 [facility] Comment on above: Order Comment: Casandra moran Type: BLOOD SPECIMENOrdering Facility: [facility] Address: [address] [place] [address] Result Comment: [place] Diabetes Association guidelines indicate that patients with HgbA1c in the range 5.7-6.4% are at increased risk for development of diabetes, and intervention by lifestyle modification may be beneficial. HgbA1c greater or equal to 6.5% is considered diagnostic of diabetes. Performed By: #### 5 5454-3 ####[facility] [id number] [address] [place] TSH SerPl-aCncon 10-17-2023 TSH Qn 0.885 m[IU]/L Normal 0.270-4.200 [facility] Comment on above: Order Comment: Casandra moran Type: BLOOD SPECIMENOrdering Facility: [facility] Address: [address] [place] [address] Result Comment: If t he patient is , TSH reference range varies by gestational period: First Trimester (weeks 9-12): 0.180-2.990 mIU/L Second Trimester: 0.110-3.980 mIU/L Third Trimester: 0.480-4.710 mIU/L Howard Jacobo et al. A Practical Approach for the Verifications and Determination of Site- and Trimester-Specific Reference Intervals for Thyroid Function tests in . Thyroid, 2019:29:3:412-420. John Siddiqi, et al. 2017 Guidelines of the [place] Thyroid Association for the Diagnosis and Management of Thyroid Disease during and the . Thyroid, 2017:27:3:315-389. Performed By: #### 2 4321-2, 3016-3 ####[facility] [id number] [address] [place] Basophil percentageOrdered B y: Melissa Saxena on 10-03-2023 Hemoglobin (Bld) [Mass/Vol] 11.9 g/dL 12.0-15.0 [facility] WBC (Bld) [#/Vol] 5.7 10*3/uL 4.4-11.0 [facility] Determination of erythrocyte mean corpuscular volume (MCV)Ordered By: Melissa Saxena on 10-03-2023 MCV (RBC) [Entitic vol] 85.5 fL 81-99 [facility] Erythrocyte distribution wid th ratioOrdered By: Melissa Saxena on 10-03-2023 Erythrocyte distribution width (RBC) [Ratio] 14.6 % 11.6-14.6 [facility] Erythrocyte distribution wid th standard deviationOrdered By: Melissa Saxena on 10-03-2023 Erythrocyte distribution width (RBC) [Entitic vol] 45.8 fL 35.1-43.9 [facility] Hematocrit Auto (Bld) [Volum e fraction]Ordered By: Melissa Saxena on 10-03-2023 Hematocrit (Bld) [Volume fraction] 36.6 % 37-47 [facility] Laboratory - Hematology and Cell countsOrdered By: Melissa Saxena on 10-03-2023 MCH (RBC) [Entitic mass] 27.8 pg 27.0-32.0 [facility] MCHC (RBC) [Mass/Vol] 32.5 g/dL 32-36 [facility] Platelet mean volume (Bld) [Entitic vol] 9.9 fL 6.2-12.0 [facility] Platelets (Bld) [#/Vol] 282 10*3/uL 150-450 [facility] RBC Auto (Bld) [#/Vol]Ordere d By: Melissa Saxena on 10-03-2023 RBC (Bld) [#/Vol] 4.28 10*6/uL 4.2-5.4 [facility] INFLUENZA A&B MOLECULAR (POC )on 08-10-2023 Flu A (POCT) Negative Negative [facility] Flu B (POCT) Negative Negative [facility] Procedural Control Valid [facility] UA DIP, URINE (POC)on 2023 BILIRUBIN UA (POCT) Negative Negative [facility] CLARITY UA (POCT) [facility] COLOR UA (POCT) Yellow [facility] GLUCOSE UA (POCT) Negative Negative mg/dL [facility] Hemoglobin Ql (U) Small Abnormal Negative [facility] KETONE UA (POCT) Negative Negative mg/dL [facility] LEUKOCYTES UA (POCT) Negative Negative [facility] NITRITE UA (POCT) Negative Negative [facility] PH UA (POCT) 6.0 4.5 - 8.0 [facility] Protein Ql (U) Negative Negative mg/dL [facility] SPECIFIC GRAVITY UA (POCT) 1.015 1.005 - 1.030 [facility] UROBILINOGEN UA (POCT) 0.2 E.U./dL Kelly l E.U./dL [facility] Serum or plasma choriogonado tropin detectionOrdered By: Love Castillo on 07-13-2023 HCG ( test) Ql < 1 mIU/mL <4 [facility] Comment on above: hCG levels with Gest ational AgeGestational Age hCG mIU/mL (IU/L)0.2 - 1 week 5 - 501-2 weeks 50 - 5002-3 weeks 100 - 13911-7 weeks 500 - 293428-0 weeks 1000 - 394895-5 weeks 41433 - 100,0006-8 weeks 35177 - 200,0002-3 months 07501 - 100,000 Absolute lymphocyte countOrd ered By: Melissa Saxena on 06-28-2023 Lymphocytes Auto (Unsp spec) [#/Vol] 1.74 10*3/uL 0.83-4.51 [facility] Automated lymphocyte count a s percentage of total leukocytesOrdered By: Melissa Saxena on 06-28-2023 Lymphocytes/100 WBC Auto (Unsp spec) 29.0 % 19-41 [facility] Basophil percentageOrdered B y: Melissa Saxena on 06-28-2023 Basophils/100 WBC (Bld) 0.8 % 0-1 [facility] Eosinophils/100 WBC (Bld) 5.7 % 0-5 [facility] Hemoglobin (Bld) [Mass/Vol] 11.9 g/dL 12.0-15.0 [facility] Monocytes/100 WBC (Bld) 6.7 % 0-10 [facility] Neutrophils (Bld) [#/Vol] 3.5 10*3/uL 2.0-7.7 [facility] Neutrophils/100 WBC (Bld) 57.5 % 47-70 [facility] WBC (Bld) [#/Vol] 6.0 10*3/uL 4.4-11.0 [facility] Chlamydia trachomatis rRNA d etection by probe and target amplification methodOrdered By: Love Castillo on 06-28-2023 C. trachomatis rRNA MAYTE+probe Ql (Unsp spec) Negative Negative [facility] Determination of erythrocyte mean corpuscular volume (MCV)Ordered By: Melissa Saxena on 06-28-2023 MCV (RBC) [Entitic vol] 88.7 fL 81-99 [facility] Erythrocyte distribution wid th ratioOrdered By: Melissa Saxena on 06-28-2023 Erythrocyte distribution width (RBC) [Ratio] 13.7 % 11.6-14.6 [facility] Erythrocyte distribution wid th standard deviationOrdered By: Melissa Saxena on 06-28-2023 Erythrocyte distribution width (RBC) [Entitic vol] 44.3 fL 35.1-43.9 [facility] Gram stain for investigation of transfusion reactionOrdered By: Love Castillo on 06-28-2023 Microscopic observation Gram stain Nom (Unsp spec) [facility] Microscopic observation Gram stain Nom (Unsp spec) [facility] Hematocrit Auto (Bld) [Volum e fraction]Ordered By: Melissa Saxena on 06-28-2023 Hematocrit (Bld) [Volume fraction] 37.6 % 37-47 [facility] Immature granulocytes/100 WB C Auto (Bld)Ordered By: Melissa Saxena on 06-28-2023 Immature granulocytes/100 WBC (Bld) 0.300 % 0.0-0.9 [facility] Comment on above: IG% - Immature Granu locytes (promyelocytes, myelocytes and metamyelocytes) > 1% indicates that a LEFT SHIFT is Present. Laboratory - Hematology and Cell countsOrdered By: Melissa Saxena on 06-28-2023 MCH (RBC) [Entitic mass] 28.1 pg 27.0-32.0 [facility] MCHC (RBC) [Mass/Vol] 31.6 g/dL 32-36 [facility] Nucleated RBC/100 WBC (Bld) [Ratio] 0 % 0-5 [facility] Platelets (Bld) [#/Vol] 388 10*3/uL 150-450 [facility] Laboratory - Microbiology an d Antimicrobial susceptibilityOrdered By: Love Castillo on 06-28-2023 N. gonorrhoeae DNA MAYTE+probe Ql (Unsp spec) Negative Negative [facility] Comment on above: Performed at: =[address] [id number] Director: Rita Vallecillo MD, Phone: [phone] No Panel InformationOrdered By: Love Castillo on 06-28-2023 Genital Culture Neisseria or beta-hemolytic Streptococcus isolated. [facility] Genital Culture Neisseria or beta-hemolytic Streptococcus isolated. [facility] No Panel Informationon 06-28 POC Bacterial Vaginitis (Rapid) Negative [facility] POC Trichomonas (Rapid) Negative [facility] Platelet mean volume Bulmaro-Ec ker (Bld) [Entitic vol]Ordered By: Melissa Saxena on 06-28-2023 Platelet mean volume (Bld) [Entitic vol] 9.7 fL 6.2-12.0 [facility] RBC Auto (Bld) [#/Vol]Ordere d By: Melissa Saxena on 06-28-2023 RBC (Bld) [#/Vol] 4.24 10*6/uL 4.2-5.4 [facility] Serum or plasma thyroid stim ulating hormone (TSH) measurement (units/volume)Ordered By: Melissa Saxena on 06-28-2023 TSH Qn 1.21 uIU/mL 0.358-3.74 [facility] Urinalysis complete W Reflex Culture panel (U)on 06-07-2023 Appearance (U) Hazy Abnormal Clear [facility] Bilirubin (U) [Mass/Vol] Negative NEGATIVE [facility] Color (U) Yellow Straw, Yellow [facility] Crystals.amorphous Computer assisted (U) [#/Area] 1+ NONE, 1+, 2+ /HPF [facility] Glucose Auto test strip (U) [Mass/Vol] Negative NEGATIVE mg/dL [facility] Interpretation and review of laboratory results Abnormal [facility] Ketones (U) [Mass/Vol] Negative NEGAT JESUS mg/dL [facility] Leukocyte clumps Auto (Urine sed) [#/Area] FEW Reference range not established. /HPF [facility] Leukocyte esterase Auto test strip Ql (U) Negative NEGATIVE [facility] Mucus Auto (Urine sed) [#/Area] 1+ Reference range not established. /LPF [facility] Nitrite Auto test strip Ql (U) Negative NEGATIVE [facility] pH (U) 7.0 [pH] 5.0, 5.5, 6.0, 6.5, 7.0, 7.5, 8.0 [facility] Protein (U) [Mass/Vol] 100 (2+) Abnormal NEGAT JESUS mg/dL [facility] RBC (U) [#/Vol] LARGE (3+) Abnormal NEGATIVE [facility] RBC Auto (Urine sed) [#/Area] >20 Abnormal NONE, 1-2, 3-5 /HPF [facility] Specific gravity (U) [Rel density] 1.020 1.005 - 1.035 [facility] Urobilinogen (U) [Mass/Vol] mg/dL NINF - 2.0 mg/dL [facility] WBC Auto (Urine sed) [#/Area] 21-50 Abnormal 1-5, NONE /HPF [facility] ANTIBODY IDENTIFICATIONon Blood group antibody investigation (P/RBC) [Interp] Inconclusive Normal [facility] Comment on above: Performed By: #### 5 902-2 #### RAUDEL MENJIVAR ([id number]) [facility] ([facility]) [address] [place] [address] CASE # Normal [facility] Comment on above: Performed By: #### 5 902-2 #### RAUDEL MENJIVAR ([id number]) [facility] ([facility]) [address] [place] [address] Bacteria identifiedon 2023 Bacteria identified Cx Nom (U) Test: Urine Culture Specimen Source: Clean Catch/Voided Specimen Type: Urine Specimen Date: 06/06/2023 11:41 PM Result Date: 06/08/2023 8:53 AM Result Status: Final result Abnormal: No Resulting Lab: [facility] [address] [facility] [address] CULTURE No growth Normal [facility] Comment on above: Performed By: #### 5 902-2 #### STARKS TIARA ([id number]) [facility] ([facility]) [address] [place] [address] Basic metabolic 2000 panelon 06-06-2023 Anion gap [Moles/Vol] 11 mmol/L 10 - 2 0 mmol/L [facility] Calcium [Mass/Vol] 9.0 mg/dL 8.6 - 10. 3 mg/dL [facility] Chloride [Moles/Vol] 107 mmol/L 98 - 10 7 mmol/L [facility] CO2 [Moles/Vol] 25 mmol/L 21 - 32 mmol/L [facility] Creatinine [Mass/Vol] 0.79 mg/dL 0.50 - 1.05 mg/dL [facility] GFR/1.73 sq M.predicted MDRD (S/P/Bld) [Vol rate/Area] - PINF [facility] Comment on above: Calculations of yolanda mated GFR are performed using the 2020 CKD-EPI Study Refit equation without the race variable for the IDMS-Traceable creatinine methods. https://jasn.asnjournals.org/content//ASN.96234 55275 Glucose [Mass/Vol] 96 mg/dL 74 - 99 mg/dL [facility] Interpretation and review of laboratory results Normal [facility] Potassium [Moles/Vol] 3.9 mmol/L 3.5 - 5.3 mmol/L [facility] Sodium [Moles/Vol] 139 mmol/L 136 - 145 mmol/L [facility] Urea nitrogen [Mass/Vol] 12 mg/dL 6 - 23 mg/dL [facility] Anion gap [Moles/Vol] 11 mmol/L Normal 10-20 [facility] Comment on above: Performed By: #### 2 4321-2 ####RAUDEL MENJIVAR ([id number])[facility] ([facility])[address] [place] [address] Calcium [Mass/Vol] 9.0 mg/dL Normal 8.6-10.3 [facility] Comment on above: Performed By: #### 2 4321-2 ####RAUDEL MENJIVAR ([id number])[facility] ([facility])[address] [place] [address]92 Chloride [Moles/Vol] 107 mmol/L Normal 98-107 [facility] Comment on above: Performed By: #### 2 4321-2 ####RAUDEL MENJIVAR ([id number])[facility] ([facility])[address] [place] [address]18[address] CO2 [Moles/Vol] 25 mmol/L Normal 21-32 [facility] Comment on above: Performed By: #### 2 4321-2 ####RAUDEL MENJIVAR ([id number])[facility] ([facility])[address] [place] [address]763 Creatinine [Mass/Vol] 0.79 mg/dL Normal 0.50-1.05 [facility] Comment on above: Performed By: #### 2 4321-2 ####RAUDEL MENJIVAR ([id number])[facility] ([facility])[address] [place] [address] GFR/1.73 sq M.predicted MDRD (S/P/Bld) [Vol rate/Area] mL/min/{1.73_m2} Normal >60 [facility] Comment on above: Result Comment: Calc ulations of estimated GFR are performed using the 2020 CKD-EPI Study Refit equation without the race variable for the IDMS-Traceable creatinine methods. https://jasn.asnjournals.org/content/early//ASN.06925 51294 Performed By: #### 2 4321-2 ####RAUDEL MENJIVAR ([id number])[facility] ([facility])[address] [place] [address]3821 Glucose [Mass/Vol] 96 mg/dL Normal 74-99 [facility] Comment on above: Performed By: #### 2 4321-2 ####RAUDEL MENJIVAR ([id number])[facility] ([facility])[address] [place] [address] 21533 Potassium [Moles/Vol] 3.9 mmol/L Normal 3.5-5.3 [facility] Comment on above: Performed By: #### 2 4321-2 ####RAUDEL MENJIVAR ([id number])[facility] ([facility])[address] [place] [address]96 Sodium [Moles/Vol] 139 mmol/L Normal 136-145 [facility] Comment on above: Performed By: #### 2 4321-2 ####RAUDEL MENJIVAR ([id number])[facility] ([facility])[address] [place] [address]3279 Urea nitrogen [Mass/Vol] 12 mg/dL Normal 6-23 [facility] Comment on above: Performed By: #### 2 4321-2 ####RAUDEL MENJIVAR ([id number])[facility] ([facility])[address] [place], [place] [address] Blood type and Indirect anti body screen panel (Bld)on 06-06-2023 ABO group Nom (Bld) A Normal [facility] Comment on above: Order Comment: Revie w your Rh Negative female patient's potential need for Rh Immune Globulin (RhIg)administration. Performed By: #### 3 4532-2 ####RAUDEL MENJIVAR ([id number])[facility] ([facility])[address] [place] [address] [place] Blood group antibody screen Ql Positive [facility] Comment on above: Order Comment: Revie w your Rh Negative female patient's potential need for Rh Immune Globulin (RhIg)administration. Performed By: #### 3 4532-2 ####RAUDEL MENJIVAR ([id number])[facility] ([facility] [place], [place] [address] [place] D Ag Ql (Bld) Negative Normal [facility] Comment on above: Order Comment: Tish w your Rh Negative female patient's potential need for Rh Immune Globulin (RhIg)administration. Performed By: #### 3 4532-2 ####STARKS TIARA ([id number])[facility] ([facility])[address] [place] [address] CBC W Auto Differential pane l (Bld)on 06-06-2023 Basophils (Bld) [#/Vol] 0.03 10*3/uL [facility] Basophils/100 WBC (Bld) 0.4 % 0.0 - 2.0 % [facility] Eosinophils (Bld) [#/Vol] 0.39 10*3/uL [facility] Eosinophils/100 WBC (Bld) 4.8 % 0.0 - 6.0 % [facility] Erythrocyte distribution width (RBC) [Ratio] 14.9 % High 11.5 - 14.5 % [facility] Hematocrit (Bld) [Volume fraction] 37.0 % 36.0 - 46.0 % [facility] Hemoglobin (Bld) [Mass/Vol] 11.8 g/dL Low 12.0 - 16.0 g/dL [facility] Immature granulocytes (Bld) [#/Vol] 0.02 10*3/uL [facility] Immature granulocytes/100 WBC (Bld) 0.2 % 0.0 - 0.9 % [facility] Comment on above: Immature Granulocyte Count (IG) includes promyelocytes, myelocytes and metamyelocytes but does not include bands. Percent differential counts (%) should be interpreted in the context of the absolute cell counts (cells/UL). Interpretation and review of laboratory results Abnormal [facility] Lymphocytes (Bld) [#/Vol] 2.86 10*3/uL [facility] Lymphocytes/100 WBC (Bld) 35.0 % 13.0 - 44.0 % [facility] MCH (RBC) [Entitic mass] 28.6 pg 26.0 - 34.0 pg [facility] MCHC (RBC) [Mass/Vol] 31.9 g/dL Low 32.0 - 36.0 g/dL [facility] MCV (RBC) [Entitic vol] 90 fL 80 - 100 fL [facility] Monocytes (Bld) [#/Vol] 0.61 10*3/uL [facility] Monocytes/100 WBC (Bld) 7.5 % 2.0 - 10.0 % [facility] Neutrophils (Bld) [#/Vol] 4.26 10*3/uL [facility] Comment on above: Percent differential counts (%) should be interpreted in the context of the absolute cell counts (cells/uL). Neutrophils/100 WBC (Bld) 52.1 % 40.0 - 80.0 % [facility] Nucleated RBC/100 WBC (Bld) [Ratio] 0.0 % [facility] Platelets (Bld) [#/Vol] 363 10*3/uL [facility] RBC (Bld) [#/Vol] 4.12 10*6/uL [facility] WBC (Bld) [#/Vol] 8.2 10*3/uL [facility] Basophils (Bld) [#/Vol] 0.03 x10*3/uL Normal 0.00-0.10 [facility] Comment on above: Performed By: #### 5 7021-8 ####RAUDEL MENJIVAR ([id number])[facility] ([facility])[address] [place] [address]67 Basophils/100 WBC (Bld) 0.4 % Normal 0.0-2.0 [facility] Comment on above: Performed By: #### 5 7021-8 ####RAUDEL MENJIVAR ([id number])[facility] ([facility] [place] [address] Eosinophils (Bld) [#/Vol] 0.39 x10*3/uL Normal 0.00-0.70 [facility] Comment on above: Performed By: #### 5 7021-8 ####RAUDEL MENJIVAR ([id number])[facility] ([facility] [place] [address] Eosinophils/100 WBC (Bld) 4.8 % Normal 0.0-6.0 [facility] Comment on above: Performed By: #### 5 7021-8 ####RAUDEL MENJIVAR ([id number])[facility] ([facility])[address] [place], [place] [address] Erythrocyte distribution width (RBC) [Ratio] 14.9 % High 11.5-14.5 [facility] Comment on above: Performed By: #### 5 7021-8 ####RAUDEL MENJIVAR ([id number])[facility] ([facility])[address] [place], [place] [address] Hematocrit (Bld) [Volume fraction] 37.0 % Normal 36.0-46.0 [facility] Comment on above: Performed By: #### 5 7021-8 ####RAUDEL MENJIVAR ([id number])[facility] ([facility])[address] [place] [address] 14877 Hemoglobin (Bld) [Mass/Vol] 11.8 g/dL Low 12.0-16.0 [facility] Comment on above: Performed By: #### 5 7021-8 ####RAUDEL MENJIVAR ([id number])[facility] ([facility])[address] [place] [address]2565 Immature granulocytes (Bld) [#/Vol] 0.02 x10*3/uL Normal 0.00-0.70 [facility] Comment on above: Performed By: #### 5 7021-8 ####RAUDEL MENJIVAR ([id number])[facility] ([facility])[address] [place], [place] [address] Immature granulocytes/100 WBC (Bld) 0.2 % Normal 0.0-0.9 [facility] Comment on above: Result Comment: Yuliya ture Granulocyte Count (IG) includes promyelocytes, myelocytes and metamyelocytes but does not include bands. Percent differential counts (%) should be interpreted in the context of the absolute cell counts (cells/UL). Performed By: #### 5 7021-8 ####RAUDEL MENJIVAR ([id number])[facility] ([facility])[address] [place] [address] Lymphocytes (Bld) [#/Vol] 2.86 x10*3/uL Normal 1.20-4.80 [facility] Comment on above: Performed By: #### 5 7021-8 ####RAUDEL MENJIVAR ([id number])[facility] ([facility])[address] [place] [address] 95723 Lymphocytes/100 WBC (Bld) 35.0 % Normal 13.0-44.0 [facility] Comment on above: Performed By: #### 5 7021-8 ####RAUDEL MENJIVAR ([id number])[facility] ([facility])[address] [place] [address] 75330 MCH (RBC) [Entitic mass] 28.6 pg Normal 26.0-34.0 [facility] Comment on above: Performed By: #### 5 7021-8 ####RAUDEL MENJIVAR ([id number])[facility] ([facility])[address] [place] [address] 50148 MCHC (RBC) [Mass/Vol] 31.9 g/dL Low 32.0-36.0 [facility] Comment on above: Performed By: #### 5 7021-8 ####RAUDEL MENJIVAR ([id number])[facility] ([facility])[address] [place] [address] 64112 MCV (RBC) [Entitic vol] 90 fL Normal 80-100 [facility] Comment on above: Performed By: #### 5 7021-8 ####RAUDEL MENJIVAR ([id number])[facility] ([facility])[address] [place] [address] 75082 Monocytes (Bld) [#/Vol] 0.61 x10*3/uL Normal 0.10-1.00 [facility] Comment on above: Performed By: #### 5 7021-8 ####RAUDEL MENJIVAR ([id number])[facility] ([facility])[address] [place] [address] 62885 Monocytes/100 WBC (Bld) 7.5 % Normal 2.0-10.0 [facility] Comment on above: Performed By: #### 5 7021-8 ####RAUDEL MENJIVAR ([id number])[facility] ([facility])[address] [place] [address] 70246 Neutrophils (Bld) [#/Vol] 4.26 x10*3/uL Normal 1.20-7.70 [facility] Comment on above: Result Comment: Perc ent differential counts (%) should be interpreted in the context of the absolute cell counts (cells/uL). Performed By: #### 5 7021-8 ####RAUDEL MENJIVAR ([id number])[facility] ([facility])[address] [place] [address] 51233 Neutrophils/100 WBC (Bld) 52.1 % Normal 40.0-80.0 [facility] Comment on above: Performed By: #### 5 7021-8 ####RAUDEL MENJIVAR ([id number])[facility] ([facility])[address] [place] [address] 48424 Nucleated RBC/100 WBC (Bld) [Ratio] 0.0 /100 WBCs Normal 0.0-0.0 [facility] Comment on above: Performed By: #### 5 7021-8 ####RAUDEL MENJIVAR ([id number])[facility] ([facility])[address] [place] [address] 56642 Platelets (Bld) [#/Vol] 363 x10*3/uL Normal 150-450 [facility] Comment on above: Performed By: #### 5 7021-8 ####RAUDEL MENJIVAR ([id number])[facility] ([facility])[address] [place] [address] 75745 RBC (Bld) [#/Vol] 4.12 x10*6/uL Normal 4.00-5.20 [facility] Comment on above: Performed By: #### 5 7021-8 ####RAUDEL MENJIVAR ([id number])[facility] ([facility])[address] [place] [address] 52579 WBC (Bld) [#/Vol] 8.2 x10*3/uL Normal 4.4-11.3 [facility] Comment on above: Performed By: #### 5 7021-8 ####RAUDEL MENJIVAR ([id number])[facility] ([facility])[address] [place] [address] Urinalysis complete W Reflex Culture panel (U)on 06-06-2023 Appearance (U) Hazy Normal Clear [facility] Comment on above: Performed By: #### 5 8077-9 ####RAUDEL MENJIVAR ([id number])[facility] ([facility])[address] [place] [address] Bilirubin (U) [Mass/Vol] Negative Normal NEGATIVE [facility] Comment on above: Performed By: #### 5 8077-9 ####RAUDEL MENJIVAR ([id number])[facility] ([facility])[address] [place] [address] Color (U) Yellow Normal Straw, Yellow [facility] Comment on above: Performed By: #### 5 8077-9 ####RAUDEL MENJIVAR ([id number])[facility] ([facility])[address] [place] [address] Crystals.amorphous Computer assisted (U) [#/Area] 1+ /HPF Normal NONE, 1+, 2+ [facility] Comment on above: Performed By: #### 5 8077-9 ####RAUDEL MENJIVAR ([id number])[facility] ([facility])[address] [place], [place] [address] Glucose Auto test strip (U) [Mass/Vol] Negative Normal NEGATIVE [facility] Comment on above: Performed By: #### 5 8077-9 ####RAUDEL MENJIVAR ([id number])[facility] ([facility])[address] [place], [place] [address] Ketones (U) [Mass/Vol] Negative Normal NEGATIVE Un [facility] Comment on above: Performed By: #### 5 8077-9 ####RAUDEL MENJIVAR ([id number])[facility] ([facility])[address] [place] [address] Leukocyte clumps Auto (Urine sed) [#/Area] FEW Normal Reference range not established. [facility] Comment on above: Performed By: #### 5 8077-9 ####RAUDEL MENJIVAR ([id number])[facility] ([facility])[address] [place] [address] 75654 Leukocyte esterase Auto test strip Ql (U) Negative Normal NEGATIVE [facility] Comment on above: Performed By: #### 5 8077-9 ####RAUDEL MENJIVAR ([id number])[facility] ([facility])[address] [place] [address] 00331 Mucus Auto (Urine sed) [#/Area] 1+ /LPF Normal Reference range not established. [facility] Comment on above: Performed By: #### 5 8077-9 ####RAUDEL MENJIVAR ([id number])[facility] ([facility])[address] [place] [address] 54126 Nitrite Auto test strip Ql (U) Negative Normal NEGATIVE [facility] Comment on above: Performed By: #### 5 8077-9 ####RAUDEL MENJIVAR ([id number])[facility] ([facility])[address] [place] [address] 18475 pH (U) 7.0 [pH] Normal 5.0, 5.5, 6.0, 6.5, 7.0, 7.5, 8.0 [facility] Comment on above: Performed By: #### 5 8077-9 ####RAUDEL MENJIVAR ([id number])[facility] ([facility])[address] [place] [address] 24795 Protein (U) [Mass/Vol] 100 (2+) Normal NEGATIVE [facility] Comment on above: Performed By: #### 5 8077-9 ####RAUDEL MENJIVAR ([id number])[facility] ([facility])[address] [place] [address] 53863 RBC (U) [#/Vol] LARGE (3+) Abnormal NEGATIVE [facility] Comment on above: Performed By: #### 5 8077-9 ####RAUDEL MENJIVAR ([id number])[facility] ([facility])[address] [place] [address] RBC Auto (Urine sed) [#/Area] >20 Abnormal NONE, 1-2, 3-5 [facility] Comment on above: Performed By: #### 5 8077-9 ####RAUDEL MENJIVAR ([id number])[facility] ([facility])[address] [place] [address] 51505 Specific gravity (U) [Rel density] 1.020 Normal 1.005-1.035 [facility] Comment on above: Performed By: #### 5 8077-9 ####RAUDEL MENJIVAR ([id number])[facility] ([facility])[address] [place] [address] 78895 Urobilinogen (U) [Mass/Vol] mg/dL Normal <2.0 [facility] Comment on above: Performed By: #### 5 8077-9 ####RAUDEL MENJIVAR ([id number])[facility] ([facility])[address] [place], [place] [address] WBC Auto (Urine sed) [#/Area] 21-50 Abnormal 1-5, NONE [facility] Comment on above: Performed By: #### 5 8077-9 ####RAUDEL MENJIVAR ([id number])[facility] ([facility])[address] [place] [address] 68245 Basophil percentageOrdered B y: Jeanette Roach on 03-18-2023 WBC (Bld) [#/Vol] 9.4 10*3/uL 4.4-11.0 [facility] Blood erythrocytes count (nu mber/volume)Ordered By: Jeanette Roach on 03-18-2023 RBC (Bld) [#/Vol] 3.98 10*6/uL 4.2-5.4 [facility] Blood hemoglobin measurement (mass/volume)Ordered By: Jeanette Roach on 03-18-2023 Hemoglobin (Bld) [Mass/Vol] 10.4 g/dL 12.0-15.0 [facility] Blood platelet mean volumeOr dered By: Jeanette Roach on 03-18-2023 Platelet mean volume (Bld) [Entitic vol] 9.1 fL 6.2-12.0 [facility] Determination of erythrocyte mean corpuscular volume (MCV)Ordered By: Jeanette Roach on 03-18-2023 MCV (RBC) [Entitic vol] 87.7 fL 81-99 [facility] Hematocrit Auto (Bld) [Volum e fraction]Ordered By: Jeanette Roach on 03-18-2023 Hematocrit (Bld) [Volume fraction] 34.9 % 37-47 [facility] Laboratory - Chemistry and C hemistry - challengeOrdered By: Jeanette Roach on 03-18-2023 ALT [Catalytic activity/Vol] 17 U/L 13-56 [facility] - Hematology and Cell countsOrdered By: Jeanette Roach on 03-18-2023 Erythrocyte distribution width (RBC) [Entitic vol] 49.8 fL 35.1-43.9 [facility] Erythrocyte distribution width (RBC) [Ratio] 15.8 % 11.6-14.6 [facility] MCH (RBC) [Entitic mass] 26.1 pg 27.0-32.0 [facility] MCHC Auto (RBC) [Mass/Vol]Or dered By: Jeanette Roach on 03-18-2023 MCHC (RBC) [Mass/Vol] 29.8 g/dL 32-36 [facility] No Panel InformationOrdered By: Jeanette Roach on 03-18-2023 Estimated Creatinine Clearance Calc 116.32 ml/min [facility] Estimated GFR (MDRD) Amer 136 mL/min >60 [facility] Comment on above: GFR Calc Estimated GFR (MDRD) Non-Af Amer 112 mL/min >60 [facility] Comment on above: Non- GFR Calc Platelets bldOrdered By: Marc Roach on 03-18-2023 Platelets (Bld) [#/Vol] 400 10*3/uL 150-450 [facility] Serum or plasma creatinine m easurement (mass/volume)Ordered By: Jeanette Roach on 03-18-2023 Creatinine [Mass/Vol] 0.65 mg/dL 0.55-1.02 [facility] Comment on above: The validity of the calculated GFR & GFRAA in patients over 70 years has not been determined. Clinical correlation is essential. Serum or plasma uric acid me asurement (mass/volume)Ordered By: Jeanette Roach on 03-18-2023 Urate [Mass/Vol] 5.1 mg/dL 2.6-6.0 [facility] Comment on above: The drugs N-Acetylcy steine and Metamizole may falsely depress this assay. Thin prep Papanicolaou smear with manual screeningOrdered By: Jeanette Roach on 03-18-2023 Thin prep Papanicolaou smear with manual screening 12 U/L 15-37 [facility] APTTon 03-13-2023 aPTT Coag (PPP) [Time] 27 s [facility] Work Phone: Bacteria identifiedon 2022 Bacteria identified Cx Nom (U) Test: Urine Culture Specimen Source: Clean Catch/Voided Specimen Type: Urine Specimen Date: 03/13/2023 6:19 PM Result Date: 03/14/2023 7:22 PM Result Status: Final result Abnormal: No Resulting Lab: [facility] [address] [place] [address] CULTURE No significant growth Normal [facility] Comment on above: Performed By: #### 6 30-4 ####LEA Jacobo ([id number])[facility] ([facility])[address] [place] [address] Basic metabolic 2000 panelon 03-13-2023 Anion gap [Moles/Vol] 15 mmol/L 10 - 2 0 mmol/L [facility] Calcium [Mass/Vol] 8.8 mg/dL 8.6 - 10. 3 mg/dL [facility] Chloride [Moles/Vol] 103 mmol/L 98 - 10 7 mmol/L [facility] CO2 [Moles/Vol] 25 mmol/L 21 - 32 mmol/L [facility] Creatinine [Mass/Vol] 0.51 mg/dL 0.50 - 1.05 mg/dL [facility] GFR/1.73 sq M.predicted MDRD (S/P/Bld) [Vol rate/Area] - PINF [facility] Comment on above: Calculations of yolanda mated GFR are performed using the 2020 CKD-EPI Study Refit equation without the race variable for the IDMS-Traceable creatinine methods. https://jasn.asnjournals.org/content//ASN.71472 37150 Glucose [Mass/Vol] 89 mg/dL 74 - 99 mg/dL [facility] Potassium [Moles/Vol] 3.8 mmol/L 3.5 - 5.3 mmol/L [facility] Sodium [Moles/Vol] 139 mmol/L 136 - 145 mmol/L [facility] Urea nitrogen [Mass/Vol] 10 mg/dL 6 - 23 mg/dL [facility] Anion gap [Moles/Vol] 15 mmol/L Normal 10-20 [facility] Comment on above: Performed By: #### 2 4321-2 ####RAUDEL MENJIVAR ([id number])[facility] ([facility])[address] [place] [address] 21335 Calcium [Mass/Vol] 8.8 mg/dL Normal 8.6-10.3 [facility] Comment on above: Performed By: #### 2 4321-2 ####RAUDEL MENJIVAR ([id number])[facility] ([facility])[address] [place] [address] 81010 Chloride [Moles/Vol] 103 mmol/L Normal 98-107 [facility] Comment on above: Performed By: #### 2 4321-2 ####RAUDEL MENJIVAR ([id number])[facility] ([facility])[address] [place] [address] 67465 CO2 [Moles/Vol] 25 mmol/L Normal 21-32 [facility] Comment on above: Performed By: #### 2 4321-2 ####RAUDEL MENJIVAR ([id number])[facility] ([facility])[address] [place] [address] 05516 Creatinine [Mass/Vol] 0.51 mg/dL Normal 0.50-1.05 [facility] Comment on above: Performed By: #### 2 4321-2 ####RAUDEL MENJIVAR ([id number])[facility] ([facility])[address] [place] [address] 87775 GFR/1.73 sq M.predicted MDRD (S/P/Bld) [Vol rate/Area] mL/min/{1.73_m2} Normal >60 [facility] Comment on above: Result Comment: Calc ulations of estimated GFR are performed using the 2020 CKD-EPI Study Refit equation without the race variable for the IDMS-Traceable creatinine methods. https://jasn.asnjournals.org/content/early//ASN.94990 86880 Performed By: #### 2 4321-2 ####RAUDEL MENJIVAR ([id number])[facility] ([facility])[address] [place] [address] 01911 Glucose [Mass/Vol] 89 mg/dL Normal 74-99 [facility] Comment on above: Performed By: #### 2 4321-2 ####RAUDEL MENJIVAR ([id number])[facility] ([facility])[address] [place] [address] 43664 Potassium [Moles/Vol] 3.8 mmol/L Normal 3.5-5.3 [facility] Comment on above: Performed By: #### 2 4321-2 ####RAUDEL MENJIVAR ([id number])[facility] ([facility])[address] [place] [address] 00299 Sodium [Moles/Vol] 139 mmol/L Normal 136-145 [facility] Comment on above: Performed By: #### 2 4321-2 ####RAUDEL MENJIVAR ([id number])[facility] ([facility])[address] [place] [address] 38817 Urea nitrogen [Mass/Vol] 10 mg/dL Normal 6-23 [facility] Comment on above: Performed By: #### 2 4321-2 ####RAUDEL MENJIVAR ([id number])[facility] ([facility])[address] [place] [address] 18881 C reactive proteinon 023 CRP [Mass/Vol] 6.62 mg/dL High <1.00 [facility] Comment on above: Performed By: #### 1 988-5 #### STARKS TIARA ([id number]) [facility] ([facility]) [address] [place] [address] C-Reactive Proteinon 023 CRP [Mass/Vol] 6.62 mg/dL High NINF - 1.00 mg/dL [facility] CBC W Auto Differential pane l (Bld)on 03-13-2023 Basophils (Bld) [#/Vol] 0.04 10*3/uL [facility] Basophils/100 WBC (Bld) 0.3 % 0.0 - 2.0 % [facility] Eosinophils (Bld) [#/Vol] 0.33 10*3/uL [facility] Eosinophils/100 WBC (Bld) 2.8 % 0.0 - 6.0 % [facility] Erythrocyte distribution width (RBC) [Ratio] 15.5 % High 11.5 - 14.5 % [facility] Hematocrit (Bld) [Volume fraction] 32.1 % Low 36.0 - 46.0 % [facility] Hemoglobin (Bld) [Mass/Vol] 9.7 g/dL Low 12.0 - 16.0 g/dL [facility] Immature granulocytes (Bld) [#/Vol] 0.12 10*3/uL [facility] Immature granulocytes/100 WBC (Bld) 1.0 % High 0.0 - 0.9 % [facility] Comment on above: Immature Granulocyte Count (IG) includes promyelocytes, myelocytes and metamyelocytes but does not include bands. Percent differential counts (%) should be interpreted in the context of the absolute cell counts (cells/UL). Interpretation and review of laboratory results Abnormal [facility] Lymphocytes (Bld) [#/Vol] 1.38 10*3/uL [facility] Lymphocytes/100 WBC (Bld) 11.8 % 13.0 - 44.0 % [facility] MCH (RBC) [Entitic mass] 26.5 pg 26.0 - 34.0 pg [facility] MCHC (RBC) [Mass/Vol] 30.2 g/dL Low 32.0 - 36.0 g/dL [facility] MCV (RBC) [Entitic vol] 88 fL 80 - 100 fL [facility] Monocytes (Bld) [#/Vol] 0.80 10*3/uL [facility] Monocytes/100 WBC (Bld) 6.9 % 2.0 - 10.0 % [facility] Neutrophils (Bld) [#/Vol] 8.99 10*3/uL High [facility] Comment on above: Percent differential counts (%) should be interpreted in the context of the absolute cell counts (cells/uL). Neutrophils/100 WBC (Bld) 77.2 % 40.0 - 80.0 % [facility] Nucleated RBC/100 WBC (Bld) [Ratio] 0.0 % [facility] Platelet mean volume (Bld) [Entitic vol] 9.6 fL 7.5 - 11.5 fL [facility] Platelets (Bld) [#/Vol] 287 10*3/uL [facility] RBC (Bld) [#/Vol] 3.66 10*6/uL Low [facility] WBC (Bld) [#/Vol] 11.7 10*3/uL High [facility] Basophils (Bld) [#/Vol] 0.04 x10*3/uL Normal 0.00-0.10 [facility] Comment on above: Performed By: #### 5 7021-8 #### RAUDEL MENJIVAR ([id number]) [facility] ([facility]) [address] [place] [address] 25914 Basophils/100 WBC (Bld) 0.3 % Normal 0.0-2.0 [facility] Comment on above: Performed By: #### 5 7021-8 #### RAUDEL MENJIVAR ([id number]) [facility] ([facility]) [address] [place] [address] 03075 Eosinophils (Bld) [#/Vol] 0.33 x10*3/uL Normal 0.00-0.70 [facility] Comment on above: Performed By: #### 5 7021-8 #### RAUDEL MENJIVAR ([id number]) [facility] ([facility]) [address] [place] [address] 81117 Eosinophils/100 WBC (Bld) 2.8 % Normal 0.0-6.0 [facility] Comment on above: Performed By: #### 5 7021-8 #### RAUDEL MENJIVAR ([id number]) [facility] ([facility]) [address] [place] [address] 75807 Erythrocyte distribution width (RBC) [Ratio] 15.5 % High 11.5-14.5 [facility] Comment on above: Performed By: #### 5 7021-8 #### RAUDEL MENJIVAR ([id number]) [facility] ([facility]) [address] [place] [address] Hematocrit (Bld) [Volume fraction] 32.1 % Low 36.0-46.0 [facility] Comment on above: Performed By: #### 5 7021-8 #### RAUDEL MENJIVAR ([id number]) [facility] ([facility]) [address] [place] [address] 29186 Hemoglobin (Bld) [Mass/Vol] 9.7 g/dL Low 12.0-16.0 [facility] Comment on above: Performed By: #### 5 7021-8 #### RAUDEL MENJIVAR ([id number]) [facility] ([facility]) [address] [place] [address] 28905 Immature granulocytes (Bld) [#/Vol] 0.12 x10*3/uL Normal 0.00-0.70 [facility] Comment on above: Performed By: #### 5 7021-8 #### RAUDEL MENJIVAR ([id number]) [facility] ([facility]) [address] [place] [address] 44491 Immature granulocytes/100 WBC (Bld) 1.0 % High 0.0-0.9 [facility] Comment on above: Result Comment: Yuliya ture Granulocyte Count (IG) includes promyelocytes, myelocytes and metamyelocytes but does not include bands. Percent differential counts (%) should be interpreted in the context of the absolute cell counts (cells/UL). Performed By: #### 5 7021-8 #### RAUDEL MENJIVAR ([id number]) [facility] ([facility]) [address] [place] [address] 32604 Lymphocytes (Bld) [#/Vol] 1.38 x10*3/uL Normal 1.20-4.80 [facility] Comment on above: Performed By: #### 5 7021-8 #### RAUDEL MENJIVAR ([id number]) [facility] ([facility]) [address] [place] [address] 49451 Lymphocytes/100 WBC (Bld) 11.8 % Normal 13.0-44.0 [facility] Comment on above: Performed By: #### 5 7021-8 #### RAUDEL MENJIVAR ([id number]) [facility] ([facility]) [address] [place] [address] 62135 MCH (RBC) [Entitic mass] 26.5 pg Normal 26.0-34.0 [facility] Comment on above: Performed By: #### 5 7021-8 #### RAUDEL MENJIVAR ([id number]) [facility] ([facility]) [address] [place] [address] 94902 MCHC (RBC) [Mass/Vol] 30.2 g/dL Low 32.0-36.0 [facility] Comment on above: Performed By: #### 5 7021-8 #### RAUDEL MENJIVAR ([id number]) [facility] ([facility]) [address] [place] [address] 98609 MCV (RBC) [Entitic vol] 88 fL Normal 80-100 [facility] Comment on above: Performed By: #### 5 7021-8 #### RAUDEL MENJIVAR ([id number]) [facility] ([facility]) [address] [place] [address] 24933 Monocytes (Bld) [#/Vol] 0.80 x10*3/uL Normal 0.10-1.00 [facility] Comment on above: Performed By: #### 5 7021-8 #### RAUDEL MENJIVAR ([id number]) [facility] ([facility]) [address] [place] [address] 92542 Monocytes/100 WBC (Bld) 6.9 % Normal 2.0-10.0 [facility] Comment on above: Performed By: #### 5 7021-8 #### RAUDEL MENJIVAR ([id number]) [facility] ([facility]) [address] [place] [address] 88167 Neutrophils (Bld) [#/Vol] 8.99 x10*3/uL High 1.20-7.70 [facility] Comment on above: Result Comment: Perc ent differential counts (%) should be interpreted in the context of the absolute cell counts (cells/uL). Performed By: #### 5 7021-8 #### RAUDEL MENJIVAR ([id number]) [facility] ([facility]) [address] [place] [address] 82819 Neutrophils/100 WBC (Bld) 77.2 % Normal 40.0-80.0 [facility] Comment on above: Performed By: #### 5 7021-8 #### RAUDEL MENJIVAR ([id number]) [facility] ([facility]) [address] [place] [address] 21232 Nucleated RBC/100 WBC (Bld) [Ratio] 0.0 /100 WBCs Normal 0.0-0.0 [facility] Comment on above: Performed By: #### 5 7021-8 #### RAUDEL MENJIVAR ([id number]) [facility] ([facility]) [address] [place] [address] 80739 Platelet mean volume (Bld) [Entitic vol] 9.6 fL Normal 7.5-11.5 [facility] Comment on above: Performed By: #### 5 7021-8 #### RAUDEL MENJIVAR ([id number]) [facility] ([facility]) [address] [place] [address] 42887 Platelets (Bld) [#/Vol] 287 x10*3/uL Normal 150-450 [facility] Comment on above: Performed By: #### 5 7021-8 #### RAUDEL MENJIVAR ([id number]) [facility] ([facility]) [address] [place] [address] [id number] RBC (Bld) [#/Vol] 3.66 x10*6/uL Low 4.00-5.20 [facility] Comment on above: Performed By: #### 5 7021-8 #### RAUDEL MENJIVAR ([id number]) [facility] ([facility]) [address] [place] [address] [id number] WBC (Bld) [#/Vol] 11.7 x10*3/uL High 4.4-11.3 [facility] Comment on above: Performed By: #### 5 7021-8 #### RAUDEL MENJIVAR ([id number]) [facility] ([facility]) [address] [place] [address] [id number] CRP [Mass/Vol]on 03-13-2023 Interpretation and review of laboratory results Abnormal [facility] Coagulation surface inducedo n 03-13-2023 aPTT Coag (PPP) [Time] 27 s Normal 27-38 [facility] Comment on above: Order Comment: The A PTT is no longer used for monitoring Unfractionated Heparin Therapy. For monitoring Heparin Therapy, use the Heparin Assay. Performed By: #### 1 4979-9 #### RAUDEL MENJIVAR ([id number]) [facility] ([facility]) [address] [place], [place] [id number] Coagulation tissue factor in ducedon 03-13-2023 PT Coag (PPP) [Time] 10.9 s Normal 9.8-12.8 [facility] Comment on above: Performed By: #### 5 902-2 #### RAUDEL MENJIVAR ([id number]) [facility] ([facility]) [address] [place] [address] 12754 Hepatic function 2000 panelo n 03-13-2023 Albumin BCP dye [Mass/Vol] 3.2 g/dL Low 3.4 - 5.0 g/dL [facility] ALP [Catalytic activity/Vol] 142 U/L High 33 - 110 U/L [facility] ALT With P-5'-P [Catalytic activity/Vol] 9 U/L 7 - 45 U/L [facility] Comment on above: Patients treated wit h Sulfasalazine may generate falsely decreased results for ALT. AST With P-5'-P [Catalytic activity/Vol] 14 U/L 9 - 39 U/L [facility] Bilirubin [Mass/Vol] 0.7 mg/dL 0.0 - 1 .2 mg/dL [facility] Bilirubin.direct [Mass/Vol] 0.1 mg/dL 0.0 - 0.3 mg/dL [facility] Interpretation and review of laboratory results Abnormal [facility] Protein [Mass/Vol] 6.3 g/dL Low 6.4 - 8.2 g/dL [facility] Albumin BCP dye [Mass/Vol] 3.2 g/dL Low 3.4-5.0 [facility] Comment on above: Performed By: #### 2 5-3 ####RAUDEL MENJIVAR ([id number])[facility] ([facility])[address] [place] [address] 47112 ALP [Catalytic activity/Vol] 142 U/L High 33-110 [facility] Comment on above: Performed By: #### 2 5-3 ####RAUDEL MENJIVAR ([id number])[facility] ([facility])[address] [place] [address] 34265 ALT With P-5'-P [Catalytic activity/Vol] 9 U/L Normal 7-45 [facility] Comment on above: Result Comment: Monika ents treated with Sulfasalazine may generate falsely decreased results for ALT. Performed By: #### 2 4325-3 ####RAUDEL MENJIVAR ([id number])[facility] ([facility] [place] [address] AST With P-5'-P [Catalytic activity/Vol] 14 U/L Normal 9-39 [facility] Comment on above: Performed By: #### 2 4325-3 ####RAUDEL MENJIVAR ([id number])[facility] ([facility])[address] [place] [address] 62689 Bilirubin [Mass/Vol] 0.7 mg/dL Normal 0.0-1.2 [facility] Comment on above: Performed By: #### 2 4325-3 ####RAUDEL MENJIVAR ([id number])[facility] ([facility])[address] [place] [address] 30936 Bilirubin.direct [Mass/Vol] 0.1 mg/dL Normal 0.0-0.3 [facility] Comment on above: Performed By: #### 2 4325-3 ####RAUDEL MENJIVAR ([id number])[facility] ([facility])[address] [place] [address] 82588 Protein [Mass/Vol] 6.3 g/dL Low 6.4-8.2 [facility] Comment on above: Performed By: #### 2 4325-3 ####RAUDEL MENJIVAR ([id number])[facility] ([facility])[address] [place] [address] Lactateon 03-13-2023 Lactate [Moles/Vol] 0.9 mmol/L 0.4 - 2. 0 mmol/L [facility] Lactate [Moles/Vol] 0.9 mmol/L Normal 0.4-2.0 [facility] Comment on above: Order Comment: Venip uncture immediately after or during the administration of Metamizole may lead to falsely low results. Testing should be performed immediately prior to Metamizole dosing. Performed By: #### 2 524-7 #### RAUDEL MENJIVAR ([id number]) [facility] ([facility]) [address] [place] [address]1897 Lactate [Moles/Vol]on 2022 Interpretation and review of laboratory results Normal [facility] Venipuncture immediately after or during the administration of Metamizole may lead to falsely low results. Testing should be performed immediately prior to Metamizole dosing. [facility] Magnesiumon 03-13-2023 Magnesium [Mass/Vol] 1.91 mg/dL 1.60 - 2.40 mg/dL [facility] Magnesium [Mass/Vol] 1.91 mg/dL Normal 1.60-2.40 [facility] Comment on above: Performed By: #### 1 9123-9 ###Rozina MENJIVAR ([id number]) [facility] ([facility]) [address] [place] [id number] Natriuretic peptide B [Mass/ Vol]on 03-13-2023 Interpretation and review of laboratory results Abnormal [facility] Natriuretic peptide B (Bld) [Mass/Vol] 285 pg/mL High 0 - 99 pg/mL [facility] <100 pg/mL - Heart failure unlikely 100-299 pg/mL - Intermediate probability of acute heart failure exacerbation. Correlate with clinical context and patient history. >=300 pg/mL - Heart Failure likely. Correlate with clinical context and patient history. BNP testing is performed using different testing methodology at [facility] than at other [facility]. Direct result comparisons should only be made within the same method. [facility] Natriuretic peptide B (Bld) [Mass/Vol] 285 pg/mL High 0-99 [facility] Comment on above: Order Comment: <100 pg/mL - Heart failure unlikely 100-299 pg/mL - Intermediate probability of acute heart failure exacerbation. Correlate with clinical context and patient history. >=300 pg/mL - Heart Failure likely. Correlate with clinical context and patient history. BNP testing is performed using different testing methodology at [facility] than at other [facility]. Direct result comparisons should only be made within the same method. Performed By: #### 3 0934-4 #### RAUDEL MENJIVAR ([id number]) [facility] ([facility]) [facility] [place] [address] No Panel Informationon 03-13 Interpretation and review of laboratory results Abnormal [facility] Interpretation and review of laboratory results Normal [facility] PT Coag (PPP) [Time]Ordered By: Carey Epstein on 03-13-2023 INR Coag (PPP) [Relative time] 1.0 {INR} 0.9 - 1.1 [facility] Interpretation and review of laboratory results Normal [facility] PT Coag (PPP) [Time]on 03-13 INR Coag (PPP) [Relative time] 1.0 Normal 0.9-1.1 [facility] Comment on above: Performed By: #### 5 902-2 #### STARKS TIARA ([id number]) [facility] ([facility]) [facility] [place] [address] Phosphateon 03-13-2023 Phosphate [Mass/Vol] 4.1 mg/dL Normal 2.5-4.9 [facility] Comment on above: Result Comment: The performance characteristics of phosphorus testing in heparinized plasma have been validated by the individual laboratory site where testing is performed. Testing on heparinized plasma is not approved by the FDA; however, such approval is not necessary. Performed By: #### 2 777-1 #### STARKS TIARA ([id number]) [facility] ([facility]) [facility] [place] [address] Phosphoruson 03-13-2023 Phosphate [Mass/Vol] 4.1 mg/dL 2.5 - 4 .9 mg/dL [facility] Comment on above: The performance miles acteristics of phosphorus testing in heparinized plasma have been validated by the individual laboratory site where testing is performed. Testing on heparinized plasma is not approved by the FDA; however, such approval is not necessary. Protime-INROrdered By: Marilynn Epstein on 03-13-2023 PT Coag (PPP) [Time] 10.9 s [facility] Tropinin I.cardiac panel Hig h sensitivity methodon 03-13-2023 Interpretation and review of laboratory results Normal [facility] Less than 99th percentile of normal range [...] performed using a different testing methodology at [facility] than at other [facility]. Direct result comparisons should only be made within the same method. [facility] Troponin I, High Sensitivity on 03-13-2023 Tropinin I.cardiac panel High sensitivity method 6 ng/L 0 - 13 ng/L [facility] Troponin I.cardiac panelon 1 Tropinin I.cardiac panel High sensitivity method 6 ng/L Normal 0-13 [facility] Comment on above: Order Comment: Less than [...] performed using a different testing methodology at [facility] than at other [facility]. Direct result comparisons should only be made within the same method. Performed By: #### 8 9577-1 #### STARKS TIARA ([id number]) [facility] ([facility]) [address] [place] [address] Urinalysis complete W Reflex Culture panel (U)on 03-13-2023 Appearance (U) Clear Clear [facility] Bilirubin (U) [Mass/Vol] Negative NEGATIVE [facility] Color (U) Straw Straw, Yellow [facility] Glucose Auto test strip (U) [Mass/Vol] Negative NEGATIVE mg/dL [facility] Ketones (U) [Mass/Vol] Negative NEGAT JESUS mg/dL [facility] Leukocyte esterase Auto test strip Ql (U) TRACE Abnormal NEGATIVE [facility] Nitrite Auto test strip Ql (U) Negative NEGATIVE [facility] pH (U) 8.0 [pH] 5.0, 5.5, 6.0, 6.5, 7.0, 7.5, 8.0 [facility] Protein (U) [Mass/Vol] Negative NEGAT JESUS mg/dL [facility] RBC (U) [#/Vol] MODERATE (2+) Abnormal NEGATIVE [facility] Specific gravity (U) [Rel density] 1.010 1.005 - 1.035 [facility] Urobilinogen (U) [Mass/Vol] mg/dL NINF - 2.0 mg/dL [facility] Appearance (U) Clear Normal Clear [facility] Comment on above: Performed By: #### 5 8077-9 ####RAUDEL MENJIVAR ([id number])[facility] ([facility])[address] [place] [address] 46366 Bilirubin (U) [Mass/Vol] Negative Normal NEGATIVE [facility] Comment on above: Performed By: #### 5 8077-9 ####RAUDEL MENJIVAR ([id number])[facility] ([facility])[address] [place] [address] Color (U) Straw Normal Straw, Yellow [facility] Comment on above: Performed By: #### 5 8077-9 ####RAUDEL MENJIVAR ([id number])[facility] ([facility])[address] [place] [address] 64330 Glucose Auto test strip (U) [Mass/Vol] Negative Normal NEGATIVE [facility] Comment on above: Performed By: #### 5 8077-9 ####RAUDEL MENJIVAR ([id number])[facility] ([facility])[address] [place] [address] 58965 Ketones (U) [Mass/Vol] Negative Normal [facility] on above: Performed By: #### 5 8077-9 ####RAUDEL MENJIVAR ([id number])[facility] ([facility])[address] [place] [address] 79704 Leukocyte esterase Auto test strip Ql (U) TRACE Abnormal NEGATIVE [facility] Comment on above: Performed By: #### 5 8077-9 ####RAUDEL MENJIVAR ([id number])[facility] ([facility])[address] [place] [address] 35122 Nitrite Auto test strip Ql (U) Negative Normal NEGATIVE [facility] Comment on above: Performed By: #### 5 8077-9 ####RAUDEL MENJIVAR ([id number])[facility] ([facility])[address] [place] [address] pH (U) 8.0 [pH] Normal 5.0, 5.5, 6.0, 6.5, 7.0, 7.5, 8.0 [facility] Comment on above: Performed By: #### 5 8077-9 ####RAUDEL MENJIVAR ([id number])[facility] ([facility])[address] [place] [address] Protein (U) [Mass/Vol] Negative Normal NEGATIVE [facility] Comment on above: Performed By: #### 5 8077-9 ####RAUDEL MENJIVAR ([id number])[facility] ([facility])[address] [place] [address] RBC (U) [#/Vol] MODERATE (2+) Abnormal NEGATIVE [facility] Comment on above: Performed By: #### 5 8077-9 ####RAUDEL MENJIVAR ([id number])[facility] ([facility])[address] [place] [address] Specific gravity (U) [Rel density] 1.010 Normal 1.005-1.035 [facility] Comment on above: Performed By: #### 5 8077-9 ####RAUDEL MENJIVAR ([id number])[facility] ([facility])[address] [place], [place] [phone] Urobilinogen (U) [Mass/Vol] mg/dL Normal <2.0 [facility] Comment on above: Performed By: #### 5 8077-9 ####RAUDEL MENJIVAR ([id number])[facility] ([facility])[address] [place], [place] [address] Urinalysis microscopic panel Auto Ql (U)on 03-13-2023 RBC Auto (Urine sed) [#/Area] 11-20 Abnormal NONE, 1-2, 3-5 /HPF [facility] WBC Auto (Urine sed) [#/Area] 1-5 1-5, NONE /HPF [facility] RBC Auto (Urine sed) [#/Area] 11-20 Abnormal NONE, 1-2, 3-5 [facility] Comment on above: Performed By: #### 5 3315-8 ####STARKS TIARA ([id number])[facility] ([facility])[address] [place] [address] WBC Auto (Urine sed) [#/Area] 1-5 Normal 1-5, NONE [facility] Comment on above: Performed By: #### 5 3315-8 ####STARKS SACHINHRLI ([id number])[facility] ([facility])[address] [place] [address] 08568 XR CHEST 1 VIEWon 03-13-2023 XR CHEST 1 VIEW Interpreted By: Jasen Aguirre, STUDY: XR CHEST 1 VIEW; 03/13/2023 5:17 pm INDICATION: Signs/Symptoms:pre-ecla mpsia. COMPARISON: May 25, [address] and December 14, 2020 chest radiograph ACCESSION NUMBER(S): [id number] ORDERING CLINICIAN: EDY ORELLANA FINDINGS: AP radiograph of the chest was provided. CARDIOMEDIASTINAL SILHOUETTE: Cardiomediastinal silhouette is normal in size and configuration. LUNGS: Lungs are clear. ABDOMEN: No remarkable upper abdominal findings. BONES: No acute osseous changes. IMPRESSION: 1. No evidence of acute cardiopulmonary process. MACRO: None Signed by: Jasen Aguirre 03/13/2023 5:28 PM Dictation workstation: [id number] Normal [facility] XR Chest Single viewon 03-13 1. No evidence of ac [place] cardiopulmonary process. MACRO: None Signed by: Jasen Aguirre 03/13/2023 5:28 PM Dictation workstation: [id number]AL Interpreted By: Jasen Aguirre, STUDY: XR CHEST 1 VIEW; 03/13/2023 5:17 pm INDICATION: Signs/Symptoms:pre-ecla mpsia. COMPARISON: May 25, [address] and December 14, 2020 chest radiograph ACCESSION NUMBER(S): [id number] ORDERING CLINICIAN: EDY SOMPLE FINDINGS: AP radiograph [...] December 14, 2020 chest radiograph ACCESSION NUMBER(S): [id number] ORDERING CLINICIAN: EDY ORELLANA FINDINGS: AP radiograph of the chest was provided. CARDIOMEDIASTINAL SILHOUETTE: Cardiomediastinal silhouette is normal in size and configuration. LUNGS: Lungs are clear. ABDOMEN: No remarkable upper abdominal findings. BONES: No acute osseous changes. IMPRESSION: 1. No evidence of acute cardiopulmonary process. MACRO: None Signed by: Jasen Aguirre 03/13/2023 5:28 PM Dictation workstation: [id number] [facility] Work Phone: Radiology Study observation (narrative) [facility] Work Phone: XR Chest Single viewOrdered By: Jasen Aguirre on 03-13-2023 [facility] Work Phone: aPTT Coag (PPP) [Time]on Interpretation and review of laboratory results Normal [facility] Work Phone: The APTT is no longe r used for monitoring Unfractionated Heparin Therapy. For monitoring Heparin Therapy, use the Heparin Assay. [facility] Work Phone: [facility] Work Phone: Absolute lymphocyte countOrd ered By: Yuri Crenshaw on 03-09-2023 Lymphocytes Auto (Unsp spec) [#/Vol] 2.13 10*3/uL 0.83-4.51 [facility] Basophil percentageOrdered B y: Yuri Crenshaw on 03-09-2023 Basophils/100 WBC (Bld) 0.3 % 0-1 [facility] Eosinophils/100 WBC (Bld) 2.0 % 0-5 [facility] Neutrophils (Bld) [#/Vol] 10.3 10*3/uL 2.0-7.7 [facility] Neutrophils/100 WBC (Bld) 73.2 % 47-70 [facility] WBC (Bld) [#/Vol] 14.1 10*3/uL 4.4-11.0 [facility] Blood erythrocytes count (nu mber/volume)Ordered By: Yuri Crenshaw on 03-09-2023 RBC (Bld) [#/Vol] 3.54 10*6/uL 4.2-5.4 [facility] Blood hemoglobin measurement (mass/volume)Ordered By: Yuri Crenshaw on 03-09-2023 Hemoglobin (Bld) [Mass/Vol] 9.4 g/dL 12.0-15.0 [facility] Blood lymphocytes/100 leukoc ytesOrdered By: Yuri Crenshaw on 03-09-2023 Lymphocytes/100 WBC (Bld) 15.1 % 19-41 [facility] Blood monocytes/100 leukocyt esOrdered By: Yuri Crenshaw on 03-09-2023 Monocytes/100 WBC (Bld) 8.1 % 0-10 [facility] Blood platelet mean volumeOr dered By: Yuri Crenshaw on 03-09-2023 Platelet mean volume (Bld) [Entitic vol] 10.9 fL 6.2-12.0 [facility] Determination of erythrocyte mean corpuscular volume (MCV)Ordered By: Yuri Crenshaw on 03-09-2023 MCV (RBC) [Entitic vol] 84.7 fL 81-99 [facility] Hematocrit Auto (Bld) [Volum e fraction]Ordered By: Yuri Crenshaw on 03-09-2023 Hematocrit (Bld) [Volume fraction] 30.0 % 37-47 [facility] Laboratory - Chemistry and C hemistry - challengeon 03-09-2023 Glucose Ql (U) Negative [facility] - Hematology and Cell countsOrdered By: Yuri Crenshaw on 03-09-2023 Erythrocyte distribution width (RBC) [Entitic vol] 47.6 fL 35.1-43.9 [facility] Erythrocyte distribution width (RBC) [Ratio] 15.6 % 11.6-14.6 [facility] Immature granulocytes/100 WBC (Bld) 1.300 % 0.0-0.9 [facility] Comment on above: IG% - Immature Granu locytes (promyelocytes, myelocytes and metamyelocytes) > 1% indicates that a LEFT SHIFT is Present. MCH (RBC) [Entitic mass] 26.6 pg 27.0-32.0 [facility] Nucleated RBC/100 WBC (Bld) [Ratio] 0.1 % 0-5 [facility] - Urinalysison Protein Ql (U) Negative [facility] MCHC Auto (RBC) [Mass/Vol]Or dered By: Yuri Crenshaw on 03-09-2023 MCHC (RBC) [Mass/Vol] 31.3 g/dL 32-36 [facility] Platelets bldOrdered By: Alexis Crenshaw on 03-09-2023 Platelets (Bld) [#/Vol] 281 10*3/uL 150-450 [facility] Serum Treponema species anti body detectionOrdered By: Yuri Crenshaw on 03-09-2023 Treponema sp Ab Ql (S) Non-Reactive [facility] Basophil percentageOrdered B y: Jeanette Roach on 03-08-2023 Basophil percentage 5-10 SEEN /hpf 0-5 [facility] Bilirubin Test strip Ql (U)O rdered By: Jeanette Roach on 03-08-2023 Bilirubin Ql (U) Negative Negative [facility] Ketones Test strip Ql (U)Ord ered By: Jeanette Roach on 03-08-2023 Ketones Ql (U) 50 mg/dl Negative [facility] Mucus LM Ql (Urine sed)Order ed By: Jeanette Roach on 03-08-2023 Mucus Ql (Urine sed) 0 SEEN /hpf [facility] Nitrite Test strip Ql (U)Ord ered By: Jeanette Roach on 03-08-2023 Nitrite Ql (U) Negative Negative [facility] Protein Test strip Ql (U)Ord ered By: Jeanette Roach on 03-08-2023 Protein Ql (U) 30 mg/dl Negative [facility] Squamous epithelial cells de tection in urine sediment by light microscopyOrdered By: Jeanette Roach on 03-08-2023 Epithelial cells.squamous LM Ql (Urine sed) 5-10 SEEN /hpf 5-10 [facility] Urine blood detectionOrdered By: Jeanette Roach on 03-08-2023 RBC Ql (U) 10 /ul Negative [facility] RBC Ql (U) 0-5 SEEN /hpf 0-5 [facility] Urine clarityOrdered By: Marc Roach on 03-08-2023 Clarity (U) Clear Clear [facility] Urine color determinationOrd ered By: Jeanette Roach on 03-08-2023 Color (U) Yellow Yellow [facility] Urine glucose detectionOrder ed By: Jeanette Roach on 03-08-2023 Glucose Ql (U) Normal mg/dl Normal [facility] Urine leukocyte esterase det ection by dipstickOrdered By: Jeanette Roach on 03-08-2023 Leukocyte esterase Test strip Ql (U) 100 /ul Negative [facility] Urine pHOrdered By: Jeanette silva on 03-08-2023 pH (U) 6.5 [pH] 5.0 - 8.0 [facility] Urine sediment bacteria coun t by microscopy (number/high power field)Ordered By: Jeanette Roach on 03-08-2023 Bacteria LM.HPF (Urine sed) [#/Area] 2 /[HPF] None Seen [facility] Urine specific gravity measu rementOrdered By: Jeanette Roach on 03-08-2023 Specific gravity (U) [Rel density] 1.015 1.002-1.030 [facility] Urobilinogen Auto test strip Ql (U)Ordered By: Jeanette Roach on 03-08-2023 Urobilinogen Ql (U) 4 mg/dl Normal [facility] Laboratory - Chemistry and C hemistry - challengeon 02-28-2023 Glucose Ql (U) Negative [facility] - Urinalysison Protein Ql (U) Negative [facility] No Panel InformationOrdered By: Yuri Crenshaw on 02-28-2023 Group B Streptococcus Culture Group B Beta Streptococcus is not isolated. [facility] Basophil percentageOrdered B y: Yuri Crenshaw on 02-18-2023 Bilirubin [Mass/Vol] 1.00 mg/dL 0.20-1.00 [facility] Comment on above: For patients on eltr ombopag therapy, use of Dimension [place] TBIL is not recommended. Chloride [Moles/Vol] 108 mmol/L 98-107 [facility] Glucose [Mass/Vol] 85 mg/dL 74-106 [facility] Potassium [Moles/Vol] 3.7 mmol/L 3.5-5.1 [facility] Protein [Mass/Vol] 6.1 g/dL 6.4-8.2 [facility] Sodium [Moles/Vol] 137 mmol/L 136-145 [facility] WBC (Bld) [#/Vol] 10.9 10*3/uL 4.4-11.0 [facility] Blood erythrocytes count (nu mber/volume)Ordered By: Yuri Crenshaw on 02-18-2023 RBC (Bld) [#/Vol] 3.36 10*6/uL 4.2-5.4 [facility] Blood hemoglobin measurement (mass/volume)Ordered By: Yuri Crenshaw on 02-18-2023 Hemoglobin (Bld) [Mass/Vol] 9.5 g/dL 12.0-15.0 [facility] Blood platelet mean volumeOr dered By: Yuri Crenshaw on 02-18-2023 Platelet mean volume (Bld) [Entitic vol] 10.5 fL 6.2-12.0 [facility] Determination of erythrocyte mean corpuscular volume (MCV)Ordered By: Yuri Crenshaw on 02-18-2023 MCV (RBC) [Entitic vol] 87.8 fL 81-99 [facility] Gram stain for investigation of transfusion reactionOrdered By: Yuri Crenshaw on 02-18-2023 Microscopic observation Gram stain Nom (Unsp spec) [facility] Hematocrit Auto (Bld) [Volum e fraction]Ordered By: Yuri Crenshaw on 02-18-2023 Hematocrit (Bld) [Volume fraction] 29.5 % 37-47 [facility] Laboratory - Chemistry and C hemistry - challengeOrdered By: Yuri Crenshaw on 02-18-2023 ALP [Catalytic activity/Vol] 144 U/L 45-117 [facility] ALT [Catalytic activity/Vol] 11 U/L 13-56 [facility] CO2 [Moles/Vol] 20.0 mmol/L 21.0-32.0 [facility] Globulin (S) [Mass/Vol] 3.7 g/dL 2.2-4.2 [facility] Urea nitrogen/Creatinine [Mass ratio] 9.5 mg/mg 10-20 [facility] - Hematology and Cell countsOrdered By: Yuri Crenshaw on 02-18-2023 Erythrocyte distribution width (RBC) [Entitic vol] 46.6 fL 35.1-43.9 [facility] Erythrocyte distribution width (RBC) [Ratio] 14.6 % 11.6-14.6 [facility] MCH (RBC) [Entitic mass] 28.3 pg 27.0-32.0 [facility] MCHC Auto (RBC) [Mass/Vol]Or dered By: Yuri Crenshaw on 02-18-2023 MCHC (RBC) [Mass/Vol] 32.2 g/dL 32-36 [facility] No Panel InformationOrdered By: Yuri Crenshaw on 02-18-2023 Estimated GFR (MDRD) Amer 172 mL/min >60 [facility] Comment on above: GFR Calc Estimated GFR (MDRD) Non-Af Amer 142 mL/min >60 [facility] Comment on above: Non- GFR Calc Fibrinogen 527 mg/dl 203-444 [facility] Miscellaneous Test See comment [facility] [...] developed and its performance characteristics determined by [employer]. It has not been cleared or approved by the Food and Drug Administration. Reference Range: All Ages: <9.2 TESTING PERFORMED AT [employer]. ORIGINAL REPORT ON FILE IN LAB CONTAINS ADDITIONAL TEST SITE INFORMATION. Vaginal Amniotic Fluid Detection Negative Negative [facility] Comment on above: Amniotic fluid not p resent indicates No Rupture of FetalMembranes at time of specimen collection. Platelets bldOrdered By: Alexis Crenshaw on 02-18-2023 Platelets (Bld) [#/Vol] 278 10*3/uL 150-450 [facility] Serum or plasma albumin edilia urement (mass/volume)Ordered By: Yuri Crenshaw on 02-18-2023 Albumin [Mass/Vol] 2.4 g/dL 3.2-5.0 [facility] Serum or plasma albumin/glob ulin mass ratioOrdered By: Yuri Crenshaw on 02-18-2023 Albumin/Globulin [Mass ratio] 0.6 {ratio} 0.9-2.4 [facility] Serum or plasma calcium edilia urement (mass/volume)Ordered By: Yuri Crenshaw on 02-18-2023 Calcium [Mass/Vol] 8.5 mg/dL 8.5-10.1 [facility] Serum or plasma creatinine m easurement (mass/volume)Ordered By: Yuri Crenshaw on 02-18-2023 Creatinine [Mass/Vol] 0.53 mg/dL 0.55-1.02 [facility] Comment on above: The validity of the calculated GFR & GFRAA in patients over 70 years has not been determined. Clinical correlation is essential. Serum or plasma urea nitroge n measurement (mass/volume)Ordered By: Yuri Crenshaw on 02-18-2023 Urea nitrogen [Mass/Vol] 5 mg/dL 7-18 [facility] Thin prep Papanicolaou smear with manual screeningOrdered By: Yuri Crenshaw on 02-18-2023 Thin prep Papanicolaou smear with manual screening Neisseria or beta-hemolytic Streptococcus isolated. [facility] Thin prep Papanicolaou smear with manual screening 11 U/L 15-37 [facility] Thin prep Papanicolaou smear with manual screening 9 5-15 [facility] Laboratory - Chemistry and C hemistry - challengeon 02-17-2023 Glucose Ql (U) Negative [facility] Laboratory - Urinalysison Protein Ql (U) Negative [facility] Neisseria gonorrhoeae genita l PCROrdered By: Laura Salinas on 02-17-2023 N. gonorrhoeae DNA MAYTE+probe Ql (Genital specimen) [facility] No Panel InformationOrdered By: Laura Salinas on 02-17-2023 Chlamydia trachomatis (PCR) [facility] Laboratory - Chemistry and C hemistry - challengeon 02-02-2023 Glucose Ql (U) Negative [facility] Laboratory - Urinalysison Protein Ql (U) Negative [facility] Absolute lymphocyte countOrd ered By: Love Castillo on 01-30-2023 Lymphocytes Auto (Unsp spec) [#/Vol] 1.57 10*3/uL 0.83-4.51 [facility] Basophil percentageOrdered B y: Love Castillo on 01-30-2023 Basophils/100 WBC (Bld) 0.2 % 0-1 [facility] Bilirubin [Mass/Vol] 1.10 mg/dL 0.20-1.00 [facility] Comment on above: For patients on eltr ombopag therapy, use of Dimension [place] TBIL is not recommended. Chloride [Moles/Vol] 107 mmol/L 98-107 [facility] Eosinophils/100 WBC (Bld) 0.8 % 0-5 [facility] Glucose [Mass/Vol] 102 mg/dL 74-106 [facility] Comment on above: Fasting Glucose resu lt from 100 to 125 mg/dL suggests IMPAIRED HOMEOSTASIS per A.D.A. criteria. Neutrophils (Bld) [#/Vol] 5.8 10*3/uL 2.0-7.7 [facility] Neutrophils/100 WBC (Bld) 69.8 % 47-70 [facility] Potassium [Moles/Vol] 3.1 mmol/L 3.5-5.1 [facility] Protein [Mass/Vol] 6.4 g/dL 6.4-8.2 [facility] Sodium [Moles/Vol] 138 mmol/L 136-145 [facility] WBC (Bld) [#/Vol] 8.4 10*3/uL 4.4-11.0 [facility] Blood erythrocytes count (nu mber/volume)Ordered By: Love Castillo on 01-30-2023 RBC (Bld) [#/Vol] 3.39 10*6/uL 4.2-5.4 [facility] Blood hemoglobin measurement (mass/volume)Ordered By: Love Castillo on 01-30-2023 Hemoglobin (Bld) [Mass/Vol] 10.1 g/dL 12.0-15.0 [facility] Blood lymphocytes/100 leukoc ytesOrdered By: Love Castillo on 01-30-2023 Lymphocytes/100 WBC (Bld) 18.8 % 19-41 [facility] Blood monocytes/100 leukocyt esOrdered By: Love Castillo on 01-30-2023 Monocytes/100 WBC (Bld) 9.4 % 0-10 [facility] Blood platelet mean volumeOr dered By: Love Castillo on 01-30-2023 Platelet mean volume (Bld) [Entitic vol] 9.8 fL 6.2-12.0 [facility] Determination of erythrocyte mean corpuscular volume (MCV)Ordered By: Love Castillo on 01-30-2023 MCV (RBC) [Entitic vol] 90.3 fL 81-99 [facility] Hematocrit Auto (Bld) [Volum e fraction]Ordered By: Love Castillo on 01-30-2023 Hematocrit (Bld) [Volume fraction] 30.6 % 37-47 [facility] Laboratory - Chemistry and C hemistry - challengeOrdered By: Love Castillo on 01-30-2023 ALP [Catalytic activity/Vol] 99 U/L 45-117 [facility] ALT [Catalytic activity/Vol] 22 U/L 13-56 [facility] CO2 [Moles/Vol] 24.0 mmol/L 21.0-32.0 [facility] Globulin (S) [Mass/Vol] 3.9 g/dL 2.2-4.2 [facility] Urea nitrogen/Creatinine [Mass ratio] 8.4 mg/mg 10-20 [facility] Laboratory - Hematology and Cell countsOrdered By: Love Castillo on 01-30-2023 Erythrocyte distribution width (RBC) [Entitic vol] 46.1 fL 35.1-43.9 [facility] Erythrocyte distribution width (RBC) [Ratio] 14.2 % 11.6-14.6 [facility] Immature granulocytes/100 WBC (Bld) 1.000 % 0.0-0.9 [facility] Comment on above: IG% - Immature Granu locytes (promyelocytes, myelocytes and metamyelocytes) > 1% indicates that a LEFT SHIFT is Present. MCH (RBC) [Entitic mass] 29.8 pg 27.0-32.0 [facility] Nucleated RBC/100 WBC (Bld) [Ratio] 0 % 0-5 [facility] MCHC Auto (RBC) [Mass/Vol]Or dered By: Love Castillo on 01-30-2023 MCHC (RBC) [Mass/Vol] 33.0 g/dL 32-36 [facility] No Panel InformationOrdered By: Love Castillo on 01-30-2023 Estimated GFR (MDRD) Amer 151 mL/min >60 [facility] Comment on above: GFR Calc Estimated GFR (MDRD) Non-Af Amer 124 mL/min >60 [facility] Comment on above: Non- GFR Calc Miscellaneous Test See comment [facility] Comment on above: TEST RESULTS LIMITSB ile Acids, Fractionated LCMSUrsodeoxycholic Acids 0.10 umol/LReference Range:All Ages: <1.9Cholic Acids 0.20 umol/LReference Range:All Ages: <2.2Chenodeoxycholic Acids 0.90 umol/LReference Range:All Ages: <5.8Deoxycholic Acids 0.50 umol/LReference Range:All Ages: <3.3Total Bile Acids 1.7 umol/LThis test was developed and its performance characteristicsdetermined by [employer]. It has not been cleared or approvedby the Food and Drug Administration.Reference Range:All Ages: <9.2 TESTING PERFORMED AT [facility]. ORIGINAL REPORT ON FILE IN LAB CONTAINS ADDITIONAL TEST SITE INFORMATION. No Panel InformationOrdered By: Yuri Crenshaw on 01-30-2023 Hepatitis C Antibody Non-Reactive Nonreactive [facility] Comment on above: Non Reactive: < 0.8 Equivocal: >/= 0.8 to < 1.0 Reactive: >/= 1.0The CDC recommends that a reactive/equivocal HCV antibody result be followed up by the HCV Nucleic Acid Amplificationtest (362764) Platelets bldOrdered By: Doug Castillo on 01-30-2023 Platelets (Bld) [#/Vol] 271 10*3/uL 150-450 [facility] Serum hepatitis B virus [place] antibody IgG detectionOrdered By: Yuri Crenshaw on 01-30-2023 HBV surface IgG Ql (S) Non-Reactive [facility] Comment on above: Non Reactive: Incons istent with immunity less than <10 mIU/mL Reactive: Consistent with immunity greater than or equal to 10 mIU/mL Serum or plasma albumin edilia urement (mass/volume)Ordered By: Love Castillo on 01-30-2023 Albumin [Mass/Vol] 2.5 g/dL 3.2-5.0 [facility] Serum or plasma albumin/glob ulin mass ratioOrdered By: Love Castillo on 01-30-2023 Albumin/Globulin [Mass ratio] 0.6 {ratio} 0.9-2.4 [facility] Serum or plasma calcium edilia urement (mass/volume)Ordered By: Love Castillo on 01-30-2023 Calcium [Mass/Vol] 8.6 mg/dL 8.5-10.1 [facility] Serum or plasma creatinine m easurement (mass/volume)Ordered By: Love Castillo on 01-30-2023 Creatinine [Mass/Vol] 0.59 mg/dL 0.55-1.02 [facility] Comment on above: The validity of the calculated GFR & GFRAA in patients over 70 years has not been determined. Clinical correlation is essential. Serum or plasma urea nitroge n measurement (mass/volume)Ordered By: Lovelevar Castillo on 01-30-2023 Urea nitrogen [Mass/Vol] 5 mg/dL 7-18 [facility] Thin prep Papanicolaou smear with manual screeningOrdered By: Lovelevar Castillo on 01-30-2023 Thin prep Papanicolaou smear with manual screening 17 U/L 15-37 [facility] Thin prep Papanicolaou smear with manual screening 7 5-15 [facility] Absolute lymphocyte countOrd ered By: ED PROVIDER on 01-23-2023 Lymphocytes Auto (Unsp spec) [#/Vol] 2.06 10*3/uL 0.83-4.51 [facility] Basophil percentageOrdered B y: ED PROVIDER on 01-23-2023 Basophils/100 WBC (Bld) 0.4 % 0-1 [facility] Chloride [Moles/Vol] 105 mmol/L 98-107 [facility] Eosinophils/100 WBC (Bld) 0.9 % 0-5 [facility] Glucose [Mass/Vol] 99 mg/dL 74-106 [facility] Neutrophils (Bld) [#/Vol] 8.5 10*3/uL 2.0-7.7 [facility] Neutrophils/100 WBC (Bld) 72.6 % 47-70 [facility] Potassium [Moles/Vol] 3.3 mmol/L 3.5-5.1 [facility] Sodium [Moles/Vol] 134 mmol/L 136-145 [facility] WBC (Bld) [#/Vol] 11.7 10*3/uL 4.4-11.0 [facility] Blood erythrocytes count (nu mber/volume)Ordered By: ED PROVIDER on 01-23-2023 RBC (Bld) [#/Vol] 3.71 10*6/uL 4.2-5.4 [facility] Blood hemoglobin measurement (mass/volume)Ordered By: ED PROVIDER on 01-23-2023 Hemoglobin (Bld) [Mass/Vol] 10.9 g/dL 12.0-15.0 [facility] Blood lymphocytes/100 leukoc ytesOrdered By: ED PROVIDER on 01-23-2023 Lymphocytes/100 WBC (Bld) 17.5 % 19-41 [facility] Blood monocytes/100 leukocyt esOrdered By: ED PROVIDER on 01-23-2023 Monocytes/100 WBC (Bld) 6.9 % 0-10 [facility] Blood platelet mean volumeOr dered By: ED PROVIDER on 01-23-2023 Platelet mean volume (Bld) [Entitic vol] 9.7 fL 6.2-12.0 [facility] Determination of erythrocyte mean corpuscular volume (MCV)Ordered By: ED PROVIDER on 01-23-2023 MCV (RBC) [Entitic vol] 89.2 fL 81-99 [facility] Hematocrit Auto (Bld) [Volum e fraction]Ordered By: ED PROVIDER on 01-23-2023 Hematocrit (Bld) [Volume fraction] 33.1 % 37-47 [facility] Laboratory - Chemistry and C hemistry - challengeOrdered By: ED PROVIDER on 01-23-2023 CO2 [Moles/Vol] 18.0 mmol/L 21.0-32.0 [facility] Urea nitrogen/Creatinine [Mass ratio] 14.1 mg/mg 10-20 [facility] Laboratory - Hematology and Cell countsOrdered By: ED PROVIDER on 01-23-2023 Erythrocyte distribution width (RBC) [Entitic vol] 44.8 fL 35.1-43.9 [facility] Erythrocyte distribution width (RBC) [Ratio] 13.9 % 11.6-14.6 [facility] Immature granulocytes/100 WBC (Bld) 1.700 % 0.0-0.9 [facility] Comment on above: IG% - Immature Granu locytes (promyelocytes, myelocytes and metamyelocytes) > 1% indicates that a LEFT SHIFT is Present. MCH (RBC) [Entitic mass] 29.4 pg 27.0-32.0 [facility] Nucleated RBC/100 WBC (Bld) [Ratio] 0 % 0-5 [facility] MCHC Auto (RBC) [Mass/Vol]Or dered By: ED PROVIDER on 01-23-2023 MCHC (RBC) [Mass/Vol] 32.9 g/dL 32-36 [facility] No Panel InformationOrdered By: ED PROVIDER on 01-23-2023 Estimated Creatinine Clearance Calc 151.22 ml/min [facility] Estimated GFR (MDRD) Amer 184 mL/min >60 [facility] Comment on above: GFR Calc Estimated GFR (MDRD) Non-Af Amer 152 mL/min >60 [facility] Comment on above: Non- GFR Calc Troponin I High Sensitivity 6 pg/mL 3.0-54.0 [facility] Comment on above: Please Note: New Theo t Units and Gender Specific Reference Ranges. For more information see Policy Stat Procedure [place] High Sensitivity Troponin (TNIH) and attachments. Platelets bldOrdered By: ED PROVIDER on 01-23-2023 Platelets (Bld) [#/Vol] 310 10*3/uL 150-450 [facility] Serum or plasma calcium edilia urement (mass/volume)Ordered By: ED PROVIDER on 01-23-2023 Calcium [Mass/Vol] 9.4 mg/dL 8.5-10.1 [facility] Serum or plasma creatinine m easurement (mass/volume)Ordered By: ED PROVIDER on 01-23-2023 Creatinine [Mass/Vol] 0.50 mg/dL 0.55-1.02 [facility] Comment on above: The validity of the calculated GFR & GFRAA in patients over 70 years has not been determined. Clinical correlation is essential. Serum or plasma urea nitroge n measurement (mass/volume)Ordered By: ED PROVIDER on 01-23-2023 Urea nitrogen [Mass/Vol] 7 mg/dL 7-18 [facility] Thin prep Papanicolaou smear with manual screeningOrdered By: ED PROVIDER on 01-23-2023 Thin prep Papanicolaou smear with manual screening 11 5-15 [facility] Basophil percentageOrdered B y: Yuri Crenshaw on 01-16-2023 WBC (Bld) [#/Vol] 9.8 10*3/uL 4.4-11.0 [facility] Blood erythrocytes count (nu mber/volume)Ordered By: Yuri Crenshaw on 01-16-2023 RBC (Bld) [#/Vol] 3.16 10*6/uL 4.2-5.4 [facility] Blood hemoglobin measurement (mass/volume)Ordered By: Yuri Crenshaw on 01-16-2023 Hemoglobin (Bld) [Mass/Vol] 9.5 g/dL 12.0-15.0 [facility] Blood platelet mean volumeOr dered By: Yuri Crenshaw on 01-16-2023 Platelet mean volume (Bld) [Entitic vol] 9.9 fL 6.2-12.0 [facility] Chlamydia trachomatis rRNA d etection by probe and target amplification methodOrdered By: Jeanette Roach on 01-16-2023 C. trachomatis rRNA MAYTE+probe Ql (Unsp spec) Positive Negative [facility] Determination of erythrocyte mean corpuscular volume (MCV)Ordered By: Yuri Crenshaw on 01-16-2023 MCV (RBC) [Entitic vol] 92.1 fL 81-99 [facility] Hematocrit Auto (Bld) [Volum e fraction]Ordered By: Yuri Crenshaw on 01-16-2023 Hematocrit (Bld) [Volume fraction] 29.1 % 37-47 [facility] Laboratory - Chemistry and C hemistry - challengeon 01-16-2023 Bilirubin Ql (U) Negative [facility] Glucose Ql (U) Negative [facility] Ketones Ql (U) Small (15+) [facility] Specific gravity (U) [Rel density] 1.010 [facility] Urobilinogen (U) [Mass/Vol] Negative [facility] Laboratory - Hematology and Cell countsOrdered By: Yuri Crenshaw on 01-16-2023 Erythrocyte distribution width (RBC) [Entitic vol] 45.9 fL 35.1-43.9 [facility] Erythrocyte distribution width (RBC) [Ratio] 13.5 % 11.6-14.6 [facility] MCH (RBC) [Entitic mass] 30.1 pg 27.0-32.0 [facility] Laboratory - Hematology and Cell countson 01-16-2023 Hemoglobin Ql (U) Negative [facility] Laboratory - Microbiology an d Antimicrobial susceptibilityOrdered By: Jeanette Roach on 01-16-2023 N. gonorrhoeae DNA MAYTE+probe Ql (Unsp spec) Negative Negative [facility] Comment on above: Performed at: [address] [id number] Director: Rita Vallecillo MD, Phone: [phone] Laboratory - Specimen inform ationon 01-16-2023 Clarity (U) Clear [facility] Color (U) RED [facility] Laboratory - Urinalysison Nitrite Ql (U) Negative [facility] Protein Ql (U) Negative [facility] MCHC Auto (RBC) [Mass/Vol]Or dered By: Yuri Crenshaw on 01-16-2023 MCHC (RBC) [Mass/Vol] 32.6 g/dL 32-36 [facility] No Panel InformationOrdered By: Jeanette Roach on 01-16-2023 Vaginal Amniotic Fluid Detection Negative Negative [facility] Comment on above: Amniotic fluid not p resent indicates No Rupture of FetalMembranes at time of specimen collection. No Panel Informationon 01-16 POC Bacterial Vaginitis (Rapid) Negative [facility] POC Trichomonas (Rapid) Negative [facility] Urine Leukocytes Positive [facility] Urine Non-Hemolyzed Blood [facility] Platelets bldOrdered By: Alexis Crenshaw on 01-16-2023 Platelets (Bld) [#/Vol] 256 10*3/uL 150-450 [facility] Absolute lymphocyte countOrd ered By: Melissa Saxena on 12-21-2022 Lymphocytes Auto (Unsp spec) [#/Vol] 1.45 10*3/uL 0.83-4.51 [facility] Basophil percentageOrdered B y: Melissa Saxena on 12-21-2022 Basophils/100 WBC (Bld) 0.4 % 0-1 [facility] Bilirubin [Mass/Vol] 0.60 mg/dL 0.20-1.00 [facility] Comment on above: For patients on eltr ombopag therapy, use of Dimension [place] TBIL is not recommended. Chloride [Moles/Vol] 106 mmol/L 98-107 [facility] Eosinophils/100 WBC (Bld) 2.5 % 0-5 [facility] Glucose [Mass/Vol] 139 mg/dL 74-106 [facility] Comment on above: Fasting Glucose resu lt greater than or equal to 126 mg/dL suggests DIABETES MELLITUS per A.D.A. criteria. Neutrophils (Bld) [#/Vol] 6.8 10*3/uL 2.0-7.7 [facility] Neutrophils/100 WBC (Bld) 73.4 % 47-70 [facility] Potassium [Moles/Vol] 3.6 mmol/L 3.5-5.1 [facility] Protein [Mass/Vol] 6.6 g/dL 6.4-8.2 [facility] Sodium [Moles/Vol] 137 mmol/L 136-145 [facility] WBC (Bld) [#/Vol] 9.3 10*3/uL 4.4-11.0 [facility] Blood erythrocytes count (nu mber/volume)Ordered By: Melissa Saxena on 12-21-2022 RBC (Bld) [#/Vol] 3.61 10*6/uL 4.2-5.4 [facility] Blood hemoglobin measurement (mass/volume)Ordered By: Melissa Saxena on 12-21-2022 Hemoglobin (Bld) [Mass/Vol] 11.0 g/dL 12.0-15.0 [facility] Blood lymphocytes/100 leukoc ytesOrdered By: Melissa Saxena on 12-21-2022 Lymphocytes/100 WBC (Bld) 15.7 % 19-41 [facility] Blood monocytes/100 leukocyt esOrdered By: Melissa Saxena on 12-21-2022 Monocytes/100 WBC (Bld) 6.9 % 0-10 [facility] Blood platelet mean volumeOr dered By: Melissa Saxena on 12-21-2022 Platelet mean volume (Bld) [Entitic vol] 9.7 fL 6.2-12.0 [facility] Determination of erythrocyte mean corpuscular volume (MCV)Ordered By: Melissa Saxena on 12-21-2022 MCV (RBC) [Entitic vol] 93.9 fL 81-99 [facility] Gestational diabetes screen 1-hour screen with 50g oral glucose loadOrdered By: Melissa Saxena on 12-21-2022 Glucose 1 Hr post 50 g glucose PO [Mass/Vol] 139 mg/dL 70-140 [facility] HIV 1 and HIV-2 antibody ass ay with HIV-1 p24 antigen detectionOrdered By: Melissa Saxena on 12-21-2022 HIV 1+2 Ab+HIV1 p24 Ag IA Ql Non-Reactive Nonreactive [facility] Hematocrit Auto (Bld) [Volum e fraction]Ordered By: Melissa Saxena on 12-21-2022 Hematocrit (Bld) [Volume fraction] 33.9 % 37-47 [facility] Laboratory - Chemistry and C hemistry - challengeOrdered By: Melissa Saxena on 12-21-2022 ALP [Catalytic activity/Vol] 79 U/L 45-117 [facility] ALT [Catalytic activity/Vol] 10 U/L 13-56 [facility] CO2 [Moles/Vol] 21.0 mmol/L 21.0-32.0 [facility] Globulin (S) [Mass/Vol] 4.1 g/dL 2.2-4.2 [facility] Urea nitrogen/Creatinine [Mass ratio] 7.8 mg/mg 10-20 [facility] Laboratory - Chemistry and C hemistry - challengeon 12-21-2022 Glucose Ql (U) Negative [facility] Laboratory - Hematology and Cell countsOrdered By: Melissa Saxena on 12-21-2022 Erythrocyte distribution width (RBC) [Entitic vol] 45.7 fL 35.1-43.9 [facility] Erythrocyte distribution width (RBC) [Ratio] 13.3 % 11.6-14.6 [facility] Immature granulocytes/100 WBC (Bld) 1.100 % 0.0-0.9 [facility] Comment on above: IG% - Immature Granu locytes (promyelocytes, myelocytes and metamyelocytes) > 1% indicates that a LEFT SHIFT is Present. MCH (RBC) [Entitic mass] 30.5 pg 27.0-32.0 [facility] Nucleated RBC/100 WBC (Bld) [Ratio] 0 % 0-5 [facility] Laboratory - Urinalysison Protein Ql (U) Negative [facility] MCHC Auto (RBC) [Mass/Vol]Or dered By: Melissa Saxena on 12-21-2022 MCHC (RBC) [Mass/Vol] 32.4 g/dL 32-36 [facility] No Panel InformationOrdered By: Melissa Saxena on 12-21-2022 Estimated GFR (MDRD) Amer 137 mL/min >60 [facility] Comment on above: GFR Calc Estimated GFR (MDRD) Non-Af Amer 113 mL/min >60 [facility] Comment on above: Non- GFR Calc Hepatitis B Surface Antigen Non-Reactive Nonreactive [facility] Hepatitis C Antibody Non-Reactive Nonreactive [facility] Comment on above: Non Reactive: < 0.8 Equivocal: >/= 0.8 to < 1.0 Reactive: >/= 1.0The CDC recommends that a reactive/equivocal HCV antibody result be followed up by the HCV Nucleic Acid Amplificationtest (120646) Rubella IgG Antibody Reactive Nonreactive [facility] Comment on above: Antibody Results Int erpretation of Immune Status Non Reactive Presumed Non-Immune Equivocal Equivocal Reactive Presumed Immune Platelets bldOrdered By: Ivanna Saxena on 12-21-2022 Platelets (Bld) [#/Vol] 280 10*3/uL 150-450 [facility] Serum Treponema species anti body detectionOrdered By: Melissa Saxena on 12-21-2022 Treponema sp Ab Ql (S) Non-Reactive [facility] Serum or plasma albumin edilia urement (mass/volume)Ordered By: Melissa Saxena on 12-21-2022 Albumin [Mass/Vol] 2.5 g/dL 3.2-5.0 [facility] Serum or plasma albumin/glob ulin mass ratioOrdered By: Melissa Saxena on 12-21-2022 Albumin/Globulin [Mass ratio] 0.6 {ratio} 0.9-2.4 [facility] Serum or plasma calcium edilia urement (mass/volume)Ordered By: Melissa Saxena on 12-21-2022 Calcium [Mass/Vol] 8.6 mg/dL 8.5-10.1 [facility] Serum or plasma creatinine m easurement (mass/volume)Ordered By: Melissa Saxena on 12-21-2022 Creatinine [Mass/Vol] 0.64 mg/dL 0.55-1.02 [facility] Comment on above: The validity of the calculated GFR & GFRAA in patients over 70 years has not been determined. Clinical correlation is essential. Serum or plasma urea nitroge n measurement (mass/volume)Ordered By: Melissa Saxena on 12-21-2022 Urea nitrogen [Mass/Vol] 5 mg/dL 7-18 [facility] Thin prep Papanicolaou smear with manual screeningOrdered By: Melissa Saxena on 12-21-2022 Thin prep Papanicolaou smear with manual screening 8 U/L 15-37 [facility] Thin prep Papanicolaou smear with manual screening 10 5-15 [facility] Urine creatinine measurement (mass/volume)Ordered By: Melissa Saxena on 12-21-2022 Creatinine (U) [Mass/Vol] 122.00 mg/dL NO RANGE EST. [facility] Urine protein measurement (m ass/volume)Ordered By: Melissa Saxena on 12-21-2022 Protein (U) [Mass/Vol] 23.1 mg/dL 0.0-11.8 [facility] Urine protein/creatinine mas s ratioOrdered By: Melissa Saxena on 12-21-2022 Protein/Creatinine (U) [Mass ratio] 189 mg/g CRE 0-200 [facility] PT Progress Noteon 3 PT Progress Note No report was sent Normal [employer] Therapy Communicationon 11-04 Therapy Communication Message QUE ESCOBAR no showed today 11/29/22. Pt NCNS to recheck again. Signatures Electronically signed by : Sylvia Calle, PT; Nov 29 2022 9:53AM EST (Author) Normal [employer] Laboratory - Chemistry and C hemistry - challengeon 11-25-2022 Glucose Ql (U) Negative [facility] Laboratory - Urinalysison Protein Ql (U) Negative [facility] PT Progress Noteon 3 PT Progress Note No report was sent Normal [employer] Therapy Communicationon 11-03 Therapy Communication Message QUE [...] ABO group Nom (Bld) A [facility] Rh Nom (Bld) Negative [facility] Comment on above: Review your Rh Negat jesus female patient's potential need for Rh Immune Globulin (RhIg)administration. [facility] CBCon 11-11-2022 Erythrocyte distribution width (RBC) [Ratio] 14.2 % Normal 11.5 - 14.5 [facility] Comment on above: Performed By: #### C BC #### [address] [address] Hematocrit (Bld) [Volume fraction] 33.5 % Low 36.0 - 46.0 [facility] Comment on above: Performed By: #### C BC #### [address] [address] Hemoglobin (Bld) [Mass/Vol] 11.4 g/dL Low 12.0 - 16.0 [facility] Comment on above: Performed By: #### C BC #### [address] [address] MCHC (RBC) [Mass/Vol] 34.0 g/dL Normal 32.0 - 36.[address] [facility] Comment on above: Performed By: #### C BC #### [address] [address] MCV (RBC) [Entitic vol] 93 fL Normal 80 - 100 [facility] Comment on above: Performed By: #### C BC #### [address] [address] Platelets (Bld) [#/Vol] 271 10*3/uL Normal 150 - 450 [facility] Comment on above: Performed By: #### C BC #### [id number] [place] [address] RBC 3.62 x10E12/L Low 4.00 - 5.20 [facility] Comment on above: Performed By: #### C BC #### [address] [place] [address] WBC (Bld) [#/Vol] 10.5 10*3/uL Normal 4.4 - 11.3 [facility] Comment on above: Performed By: #### C BC #### [address] [address] CBC panel Auto (Bld)on 11-11 Erythrocyte distribution width (RBC) [Ratio] 14.2 % 11.5 - 14.5 % [facility] Hematocrit (Bld) [Volume fraction] 33.5 % Low 36.0 - 46.0 % [facility] Hemoglobin (Bld) [Mass/Vol] 11.4 g/dL Low 12.0 - 16.0 g/dL [facility] Interpretation and review of laboratory results Abnormal [facility] MCHC (RBC) [Mass/Vol] 34.0 g/dL 32.0 - 36.0 g/dL [facility] MCV (RBC) [Entitic vol] 93 fL 80 - 100 fL [facility] Platelets (Bld) [#/Vol] 271 10*3/uL [facility] RBC (Bld) [#/Vol] 3.62 10*6/uL Low Unive [facility] WBC (Bld) [#/Vol] 10.5 10*3/uL [facility] Daily Progress Note - OB-Tri ageon 11-11-2022 Daily Progress Note - OB-Triage Current Stage: Stage: Triage OB Dating: EDC/EGA Final [id number] [id number] Subjective Data: Antepartum Vaginal Bleeding: Yes Movement: Good Antepartum: Patient presents stating that she has had intermittent vaginal bleeding over the last day. Patient states that the bleeding was minimal and she then had intercourse earlier last night. Patient obtains her care in [place]. Objective Information Objective Information: T [id number]% Date/Time11/11 3: 0:2569 3: 3: 3:48 Range [...] related to recent intercourse. Follow-up with her [employer]SO[employer]EVELER in the next several days. Electronic Signatures for Addendum Section: Andry Rueda) (Signed Addendum 11-Nov-2022 08:36) Patient given recommendation to avoid intercourse for the time being. Electronic Signatures: Andry Rueda) (Signed 11-Nov-2022 07:48) Authored: Current Stage, OB Dating, Subjective Data, Objective Data, Assessment and Plan, Note Completion Last Updated: 11-Nov-2022 08:36 by Andry Rueda) [facility] Laboratory - Blood bankon ABO group Nom (Bld) A Re [facility]-Wanda Chappell Work Phone: Blood group antibody screen Ql Negative [facility] Chappell Work Phone: Rh immune globulin screen (Bld) [Interp] Negative [facility] vik Wyarno Work Phone: Comment on above: Review your Rh Negat jesus female patient's potential need for Rh Immune Globulin (RhIg)administration. Laboratory - Hematology and Cell countson 11-11-2022 Erythrocyte distribution width (RBC) [Ratio] 14.2 % See Below [facility] Chappell Work Phone: Comment on above: Reference Range: 11. 5 - 14.5 Hematocrit (Bld) [Volume fraction] 33.5 % below low threshold See Below [facility] [place] Work Phone: Comment on above: Reference Range: 36. 0 - 46.0 Hemoglobin (Bld) [Mass/Vol] 11.4 g/dL below low threshold See Below [facility] [place] Work Phone: Comment on above: Reference Range: 12. 0 - 16.0 MCHC (RBC) [Mass/Vol] 34.0 g/dL See Below [facility] [place] Work Phone: Comment on above: Reference Range: 32. 0 - 36.0 MCV (RBC) [Entitic vol] 93 fL 80 - [address] [facility] [place] Work Phone: Platelets (Bld) [#/Vol] 271 10*3/uL 150 - [address] [facility] vik Wyarno Work Phone: RBC (Bld) [#/Vol] 3.62 {x10E12/L} below low threshold See Below [facility] vik Wyarno Work Phone: Comment on above: Reference Range: 4.0 0 - 5.20 WBC (Bld) [#/Vol] 10.5 10*3/uL 4.4 - 11.3 [facility] hab Services-Wanda vik Chappell Work Phone: No Panel Informationon 11-11 Normal [facility]Wanda Chappell Work Phone: TYPE + SCREENon 11-11-2022 ABO TYPE A Normal [facility] Comment on above: Performed By: #### T +S #### [address] [address] RH TYPE Negative Normal [facility] Comment on above: Result Comment: Revi ew your Rh Negative female patient's potential need for Rh Immune Globulin (RhIg)administration. Performed By: #### T +S #### [place] [id number] Triage Note - OB v4on 2022 Triage Note - OB v4 Triage: General Info: Time of Arrival on [id number] 00:07 Patient arrived viaambulatory Arrived Fromgoshen Acuity Level2 Time Acuity Level [id number]-5817 00:15 Chief Complaintvaginal bleeding Spoken Language PreferredEnglish Source of Informationpatient Weight in kg78 kilogram(s) Weight in fdj434.9 pound(s) Weight Methodactual (measured) Scale Typestanding Height in feet5 feet Height in inches5.94 inch(es) Height in cm167.4 centimeter(s) Height Methodstated BMI (kg/m2)27.834 square meter Blood Avoidance/Restrictionsn one Previous Transfusion Reactionnot applicable Patient Belongingsremains with patient Patient Belongings Remaining with Patientcell phone/electronics; clothing Home Meds have been Reviewed and Verified with Patient/Familyyes Info: Gravida6 Term Deliveries5 Deliveries0 Abortions0 Living Children5 Patient stated [id number] Calculation of EGA based on patient stated [...] for Home Blood Pressure Monitorno Admission/Observation/D ischarge/Transfer Date/[id number]-Cki-4634 03:53 Discharge Modeambulatory Transportation Methodprivate car Travel [...] Updated: 11-Nov-2022 03:58 by Mame Hughes (MICHAEL) [facility] US PLACENT LOCon 11-11-2022 PLACENT LOC Patient Name: QUE ESCOBAR STUDY: US PLACENT LOC 11/11/2022 2:16 am INDICATION: 32 y/o F with vaginal bleeding . COMPARISON: 09/10/2022 ACCESSION NUMBER(S): [id number] ORDERING CLINICIAN: ANDRY RUEDA TECHNIQUE: Transabdominal sonographic [...] recommended. Electronically signed by: SOUTH NAJERA MD [facility] for pregnancyon 3 Single live intrauterine with ultrasound average gestational age of 21 week and 4 days. Placenta is fundal in location without evidence of placenta previa. Please note the examination was performed for assessment of viability and anatomy is not assessed; correlation with outpatient full anatomic survey is recommended. [facility] Interpreted By: SOUTH NAJERA MD Patient Name: QUE ESCOBAR STUDY: US PLACENT LOC 11/11/2022 2:16 am INDICATION: 32 y/o F with vaginal bleeding . COMPARISON: 09/10/2022 ACCESSION NUMBER(S): [id number] ORDERING CLINICIAN: ANDRY RUEDA TECHNIQUE: Transabdominal sonographic [...] 21 week and 4 days gestational age. [facility] South Najera MD - 11/11/2022 Interpreted By: SOUTH NAJERA MD Patient Name: QUE ESCOBAR STUDY: US PLACENT LOC 11/11/2022 2:16 am INDICATION: 32 y/o F with vaginal bleeding . COMPARISON: 09/10/2022 ACCESSION NUMBER(S): [id number] ORDERING CLINICIAN: ANDRY RUEDA TECHNIQUE: Transabdominal sonographic [...] with outpatient full anatomic survey is recommended. [facility] Work Phone: Radiology Study observation (narrative) [facility] Work Phone: US for pregnancyOrdered By: South Najera on 11-11-2022 [facility] Work Phone: PT Progress Noteon 3 PT [...] to doctors? appointments. Primary Language for learning: kazakh. Insurance Insurance reviewed Visit number: 3 08/10 Authorization required after evaluation Insurance: [facility] Evaluating therapist: Sharon Baldwin, PT, DPT [...] code time is 38 minutes. Therapeutic exercise (94034): timed minutes 13, units 1 . 3x20 second each UT 3x20 second each levator scap Thoracic Extension 3 x 5 holds N Chin Tuck 10 x 3 holds N Scap Retraction 10 x 3 holds N Pec Stretch . Manual Therapy (80672): timed minutes 25, units 2 . PROM cervical 5' Gentle STW cervical paraspinals, UTs, LS, Pecs 10' Gentle traction 2'. Aquatic Therapy (58866):. Below not performed; deferred at this time d/t current heart monitor All exercises preformed (more content not included)... Normal [employer] PT Progress Noteon 3 PT Progress Note No report was sent Normal [employer] PT Progress Noteon 3 PT Progress Note [...] to doctors? appointments. Primary Language for learning: kazakh. Insurance Insurance reviewed Visit number: 2 07/13 Authorization required after evaluation Insurance: [facility] Evaluating therapist: Sharon Baldwin PT, DPT [...] code time is 43 minutes. Aquatic Therapy (66858): timed minutes 43, units 3 . All [...] Gradual exi (more content not included)... Normal [employer] Laboratory - Chemistry and C hemistry - challengeon 10-28-2022 Glucose Ql (U) Negative [facility] Laboratory - Urinalysison Protein Ql (U) Negative [facility] PT Progress Noteon 3 PT Progress Note No report was sent Normal [employer] Therapy Communicationon 10-04 Therapy Communication Message QUE ESCOBAR canceled today . Signatures Electronically signed by : Katalina Roach PTA; Oct 27 2022 11:42AM EST (Author) Normal [facility] PT Initial Evaluationon 10-03 PT Initial Evaluation [...] you for this referral and please call [phone] with any questions or concerns. Clinical Presentation: [...] with manual screening Normal genital kenny isolated [facility] Gram stain for investigation of transfusion reactionOrdered By: Dr. Saxena on 09-29-2022 Microscopic observation Gram stain Nom (Unsp spec) [facility] Gram stain for investigation of transfusion reactionOrdered By: Melissa Saxena on 09-28-2022 Microscopic observation Gram stain Nom (Unsp spec) [facility] Laboratory - Chemistry and C hemistry - challengeon 09-28-2022 Glucose Ql (U) Negative [facility] Laboratory - Urinalysison Protein Ql (U) Negative [facility] Thin prep Papanicolaou smear with manual screeningOrdered By: Melissa Saxena on 09-28-2022 Thin prep Papanicolaou smear with manual screening Normal genital kenny isolated [facility] Provider Note - ED v3on 04-0 Provider [...] up with Dr. Yuri Fermin out of [place]. She states that she did have some [...] Alert and oriented x4, GCS 15 , manager product II-XII grossly intact. Sensation and motor function of extremities grossly intact. Psych: Appropriate mood and affect. I have reviewed and confirmed nurses/medics notes for patient past, social and family history. Portions of this note were dictated by speech recognition. An attempt at proof reading was made to minimize errors. Minor errors in settlement processor may be present. HISTORY OF PRESENTING ILLNESS [...] it with no difficulty. Patient did the [id number]-dx-[id number] test again with no difficulty showing no [...] is unreason (more content not included)... Normal [facility] ABO/RH GROUP TESTon 09-11-19 23 ABO TYPE A Normal [facility] Comment on above: Performed By: #### A BAY #### [address] [address] RH TYPE Negative Normal [facility] Comment on above: Result Comment: Revi ew your Rh Negative female patient's potential need for Rh Immune Globulin (RhIg)administration. Performed By: #### A BAY #### [address] [address] BASIC METABOLIC PANELon 04- Anion gap [Moles/Vol] 10 mmol/L Normal 10 - 20 [facility] Comment on above: Performed By: #### B MP #### [address] [address] Calcium [Mass/Vol] 8.7 mg/dL Normal 8.6 - 10.3 [facility] Comment on above: Performed By: #### B MP #### [address] [address] Chloride [Moles/Vol] 103 mmol/L Normal 98 - 107 [facility] Comment on above: Performed By: #### B MP #### [address] [address] Creatinine [Mass/Vol] 0.56 mg/dL Normal 0.50 - 1.[address] [facility] Comment on above: Performed By: #### B MP #### [address] [address] eGFR FEMALE >90 Normal >90 [facility] Comment on above: Result Comment: CALC ULATIONS OF ESTIMATED GFR ARE PERFORMED USING THE 2020 CKD-EPI STUDY REFIT EQUATION WITHOUT THE RACE VARIABLE FOR THE IDMS-TRACEABLE CREATININE METHODS. https://jasn.asnjournals.org/content/early/ASN.91346 22940 Performed By: #### B MP #### [address] [address] Glucose [Mass/Vol] 84 mg/dL Normal 74 - 99 [facility] Comment on above: Performed By: #### B MP #### [address] [address] HCO3 (Bld) [Moles/Vol] 24 mmol/L Normal 21 - [address] [facility] Comment on above: Performed By: #### B MP #### [address] [address] Potassium [Moles/Vol] 3.8 mmol/L Normal 3.5 - 5.3 [facility] Comment on above: Performed By: #### B MP #### [address] [address] Sodium [Moles/Vol] 133 mmol/L Low 136 - 145 [facility] Comment on above: Performed By: #### B MP #### [address] [address] Urea nitrogen [Mass/Vol] 10 mg/dL Normal 6 - 23 [facility] Comment on above: Performed By: #### B MP #### [address] [address] CBC AND DIFFERENTIALon 09-10 % AUTOMATED IMMATURE GRAN 1.8 % High 0.0 - 0.9 [facility] Comment on above: Result Comment: Yuliya ture Granulocyte Count (IG) includes promyelocytes, myelocytes and metamyelocytes but does not include bands. Percent differential counts (%) should be interpreted in the context of the absolute cell counts (cells/L). Performed By: #### C BCDF #### [address] [address] Basophils (Bld) [#/Vol] 0.03 10*3/uL Normal 0.00 - 0.10 [facility] Comment on above: Performed By: #### C BCDF #### [address] [address] Basophils/100 WBC (Bld) 0.3 % Normal 0.0 - 2.0 [facility] Comment on above: Performed By: #### C BCDF #### [address] [address] Eosinophils (Bld) [#/Vol] 0.31 10*3/uL Normal 0.00 - 0.70 [facility] Comment on above: Performed By: #### C BCDF #### [address] [address] Eosinophils/100 WBC (Bld) 3.4 % Normal 0.0 - 6.0 [facility] Comment on above: Performed By: #### C BCDF #### [address] [address] Erythrocyte distribution width (RBC) [Ratio] 13.0 % Normal 11.5 - 14.5 [facility] Comment on above: Performed By: #### C BCDF #### [address] [address] Hematocrit (Bld) [Volume fraction] 38.5 % Normal 36.0 - 46.0 [facility] Comment on above: Performed By: #### C BCDF #### [address] [address] Hemoglobin (Bld) [Mass/Vol] 13.3 g/dL Normal 12.0 - 16.0 [facility] Comment on above: Performed By: #### C BCDF #### [address] [address] Lymphocytes (Bld) [#/Vol] 2.18 10*3/uL Normal 1.20 - 4.80 [facility] Comment on above: Performed By: #### C BCDF #### [address] [address] Lymphocytes/100 WBC (Bld) 23.9 % Normal 13.0 - 44.0 [facility] Comment on above: Performed By: #### C BCDF #### [address] [address] MCHC (RBC) [Mass/Vol] 34.5 g/dL Normal 32.0 - 36.[address] [facility] Comment on above: Performed By: #### C BCDF #### [address] [address] MCV (RBC) [Entitic vol] 88 fL Normal 80 - 100 [facility] Comment on above: Performed By: #### C BCDF #### [address] [address] Monocytes (Bld) [#/Vol] 0.81 10*3/uL Normal 0.10 - 1.00 [facility] Comment on above: Performed By: #### C BCDF #### [address] [address] Monocytes/100 WBC (Bld) 8.9 % Normal 2.0 - 10.0 [facility] Comment on above: Performed By: #### C BCDF #### [address] [address] Neutrophils (Bld) [#/Vol] 5.64 10*3/uL Normal 1.20 - 7.70 [facility] Comment on above: Result Comment: Perc ent differential counts (%) should be interpreted in the context of the absolute cell counts (cells/L). Performed By: #### C BCDF #### [address] [address] Neutrophils/100 WBC (Bld) 61.7 % Normal 40.0 - 80.0 [facility] Comment on above: Performed By: #### C BCDF #### [address] [address] Platelets (Bld) [#/Vol] 253 10*3/uL Normal 150 - 450 [facility] Comment on above: Performed By: #### C BCDF #### [address] [address] RBC 4.39 x10E12/L Normal 4.00 - 5.20 [facility] Comment on above: Performed By: #### C BCDF #### [address] [address] WBC (Bld) [#/Vol] 9.1 10*3/uL Normal 4.4 - 11.3 [facility] Comment on above: Performed By: #### C BCDF #### [address] [address] HCG,BETA-QUANTITATIVEon HCG,BETA-QUANTITATIVE 25628 mIU/mL Abnormal [facility] Comment on above: Result Comment: . Total HCG measurement is performed using the Lore[employer] Kitty Access Immunoassay which detects intact HCG and free beta HCG subunit. . This test is not indicated for use as a tumor marker. HCG testing is performed using a different test methodology at [facility] than other [facility]. Direct result comparison should only be [...] elevation. Performed By: #### H CGQU #### [address] [address] Provider Note - ED v3on Provider Note [...] She is seen by Yuri Crenshaw at [place]. Patient states that nothing makes her symptoms [...] chart was dictated with the use of Activity Rocket software within the framework of the current [...] Flagyl T (more content not included)... Normal [facility] Risk Screen - Adult Emergenc yon [...] instruction; written material Cultural Considerationsnone Developmental Considerationsnone Spiritism Considerationsnone Learning Assessment (Other Learner): Learning Assessment [...] an injured patient at a Trauma Center ([facility]/[place] a/[place]): no Electronic Signatures: Jessica Tijerina (RN) (Signed 10-Sep-2022 21:01) Authored: Preferred Language, Patient Preferred Pharmacy, Advanced Directives, Family Violence Adult, Learning Assessment (Patient), Learning Assessment (Other Learner), Pressure Injury/TB/Substance, Pressure Injury, CAGE Last Updated: 10-Sep-2022 21:01 by Jessica Tijerina (RN) References: 1. Data Referenced From Provider Note - ED v3 10-Sep-2022 20:06 [facility] Triage - EDon 09-10-2022 Triage - [...] BMI (kg/m2): 25.881 Calculated BSA (m2) 1.84 [place] Coma Scale: Best Eye Response: (E4) spontaneous Best Motor Response: (M6) obeys commands Best Verbal Response: (V5) oriented [place] Score: 15 Cough lasting greater than 3 weeks: no Allergies: yes Mask applied: no INSOLE BEVELER History: Patient has homicidal thoughts: no Symptoms [...] 10-Sep-2022 21:00 by Jessica Tijerina (RN) Normal [facility] UA MICROSCOPICon 09-10-2022 Mucus Ql (Urine sed) 1+ /LPF Normal [facility] Comment on above: Performed By: #### U AMIC ####[place] [address] RBC 5 /HPF Normal 0-5 [facility] Comment on above: Performed By: #### U AMIC ####[place] [address] SQUAMOUS EPITH. CELLS 2 /HPF Normal [facility] Comment on above: Performed By: #### U AMIC ####[place] [address] WBC 1 /HPF Normal 0-5 [facility] Comment on above: Performed By: #### U AMIC ####[place] [address] URINALYSIS WITH CULTURE IF I NDICATEDon 09-10-2022 Appearance (U) CLEAR Normal CLEAR [facility] Comment on above: Performed By: #### U ARFX #### [place] [address] Bilirubin Ql (U) Negative Normal NEGATIVE [facility] Comment on above: Performed By: #### U ARFX #### [place] [address] Color (U) Yellow Normal STRAW,YELLOW [facility] Comment on above: Performed By: #### U ARFX #### [place] [address] Glucose Ql (U) Negative Normal NEGATIVE [facility] Comment on above: Performed By: #### U ARFX #### [place] [address] Hemoglobin Ql (U) MODERATE(2+) Abnormal NEGATIVE [facility] Comment on above: Performed By: #### U ARFX #### [place] [address] Ketones Ql (U) Negative Normal NEGATIVE [facility] Comment on above: Performed By: #### U ARFX #### [address] [address] Leukocyte esterase Test strip Ql (U) Negative Normal NEGATIVE [facility] Comment on above: Performed By: #### U ARFX #### [address] [address] Nitrite Ql (U) Negative Normal NEGATIVE [facility] Comment on above: Performed By: #### U ARFX #### [place] 02[address] pH (U) 5.0 [pH] Normal 5.0 - 8.0 [facility] Comment on above: Performed By: #### U ARFX #### [place] [address] Protein Ql (U) Negative Normal NEGATIVE [facility] Comment on above: Performed By: #### U ARFX #### [place] [id number] Specific gravity (U) [Rel density] 1.028 Normal 1.005 - 1.035 [facility] Comment on above: Performed By: #### U ARFX #### [place] 02[address] Urobilinogen (U) [Mass/Vol] mg/dL Normal 0.0 - 1.9 [facility] Comment on above: Performed By: #### U ARFX #### [place] [id number] US AGEon 09-10-[birth year]22 US AGE Patient Name: QUE ESCOBAR STUDY: US AGE 409/10[birth year]2022 9:33 pm INDICATION: 32 y/o F with 12 WEEKS / BLEEDING. LMP: Unknown. COMPARISON: None. ACCESSION NUMBER(S): [id number] ORDERING CLINICIAN: CHEYANNE BRIGGS TECHNIQUE: Routine ultrasound [...] detected. Electronically signed by: EDY BRIGGS MD [facility] Culture, urineOrdered By: Dr Susana Saxena on 08-20-2022 Bacteria identified Cx Nom (U) Culture exhibits no growth. [facility] Cervical or vagninal specime n microscopic examination by cytology stain (reported asOrdered By: Dr. Saxena on 08-17-2022 Cytology report Cyto stain Doc (Cvx/Vag) Comment . [facility] Comment on above: The Pap smear is [...] rRNA MAYTE+probe Ql (Unsp spec) Negative Negative [facility] Detection in cervical specim en of any of human papilloma virus (HPV) 16, 18, 31, 33,Ordered By: Dr. Saxena on 08-17-2022 HPV 16+18+31+33+35+39+45+5 1+52+56+58+59+66+68 DNA Probe+sig amp Ql (Cvx) Negative Negative [facility] Comment on above: This nucleic acid am plification test detects fourteen high- risk HPV types (16,18,31,33,35,39,45,51,52,56,58,59,66,68)without differentiation. Laboratory - CytologyOrdered By: Dr. Saxena on 08-17-2022 [employer] Cyto stain Nom (Cvx/Vag) [ID] Comment . [facility] Comment on above: Lizandro Ferrer [facility] otechnologist (ASCP) Laboratory - Microbiology an d Antimicrobial susceptibilityOrdered By: Dr. Saxena on 08-17-2022 N. gonorrhoeae DNA MAYTE+probe Ql (Unsp spec) Negative Negative [facility] Comment on above: Performed at: [address] [id number] Director: Rita Vallecillo MD, Phone: [phone] Laboratory - Miscellaneous t estsOrdered By: Dr. Saxena on 08-17-2022 Service comment (Unsp spec) [Interp] Comment . [facility] Comment on above: This liquid based Th inPrep(R) pap test was screened withthe use of an image guided system. Service comment (Unsp spec) [Interp] . . [facility] Liquid-based cerv Pap + CT/G C by MAYTE w reflex to high-risk HPV for ASCUSOrdered By: Dr. Saxena on 08-17-2022 Cytology report Cyto stain.thin prep Doc (Cvx/Vag) Comment . [facility] Comment on above: Criteria not met, HP V Genotype not performed.Performed at: - Lab[address] [id number] Director: Rita Vallecillo MD, Phone: [phone] at: =[facility] [id number] Director: Rita Vallecillo MD, Phone: [phone] No Panel InformationOrdered By: Dr. Saxena on 08-17-2022 Pathology report final diagnosis Narrative Comment . [facility] Comment on above: NEGATIVE FOR INTRAEP ITHELIAL LESION OR MALIGNANCY.CELLULAR CHANGES ASSOCIATED WITH INFLAMMATION ARE PRESENT. COVID-19/INFLUENZA A,B NBA Tharonald 08-02-2022 SARS-CoV-2 (COVID-19) Ab IA Ql INFLUENZA A (CEPHEID): Not Detected INFLUENZA B (CEPHEID): Not Detected SARS-COV-2 (CEPHEID): Not Detected This test was performed under the FDA's Emergency Use Authorization (EUA). Testing was performed using the Xpert?? Xpress SARS-CoV-2/Flu/RSV plus RT-PCR CepBantr assay on the [employer] Xpress System. This test has not been approved for use in asymptomatic patients and its performance in this patient population has not been evaluated. Negative results do not rule out the presence of SARS-CoV-2/COVID-19. Fact sheets for this EUA can be found at the following links: For Healthcare Providers: https://www.fda.gov/med ia/261109/download For Patients: https://www.fda.gov/med ia/306035/download [facility] Comment on above: Performed By: #### L [id number] #### [facility] [address] [place], [place] [address] Roberto Cruz M.D. [id number] HCG, Quanton 07-30-2022 HCG, Quant 74568 mIU/mL High <5 [facility] Comment on above: Result Comment: Non-preg premeno <=5 Postmeno <=8 Male <=3 If HCG results do not concur with clinical observations, additional testing to confirm results is recommended. Performed By: #### B HCG #### [facility] [address] [place] [address] Hand I Tube Bender: Osiel Sapp MD HCG, Quantitative, on 07-30-2022 hCG Quant 34665 High NINF [facility] Comment on above: Non-preg premeno <=5 Postmeno <=8 Male <=3 If HCG results do not concur with clinical observations, additional testing to confirm results is recommended. Interpretation and review of laboratory results Abnormal [facility] Serum or plasma choriogonado tropin detectionOrdered By: Dr. Saxena on 07-29-2022 HCG ( test) Ql 9612 mIU/mL <4 [facility] Comment on above: hCG levels with Gest ational AgeGestational Age hCG mIU/mL (IU/L)0.2 - 1 week 5 - 501-2 weeks 50 - 5002-3 weeks 100 - 91127-8 weeks 500 - 060227-6 weeks 1000 - 953710-8 weeks 27360 - 100,0006-8 weeks 52470 - 200,0002-3 months 88623 - 100,000 Cult,Urineon 07-28-2022 Cult,Urine Specimen Description .URINE, MIDSTREAM Culture NO SIGNIFICANT GROWTH Report Status FINAL 07/28/2022 [facility] Comment on above: Performed By: #### U RC #### [facility] [address] [place] [address] Hand I Tube Bender: Lucas Olson MD [facility] [address] [place] [address] Hand I Tube Bender: Osiel Sapp MD HCG, Quanton 07-28-2022 HCG, Quant 7888 mIU/mL High <5 [facility] Comment on above: Result Comment: Non-preg premeno <=5 Postmeno <=8 Male <=3 If HCG results do not concur with clinical observations, additional testing to confirm results is recommended. Performed By: #### B HCG #### [facility] [address] [place] [address] Hand I Tube Bender: Osiel Sapp MD US OB TRANSVAGINALon 023 [...] Charles Jay MD 07/28/22 Final result Normal [facility] Single viable intrauterine with only a yolk sac visualized with an estimated sonographic age less than 5 weeks. Question subcentimeter subchorionic hemorrhage. Recommend serial beta hCGs and follow-up ultrasound. [facility] TRANSVAGINAL FIRST TRIMESTER OB ULTRASOUND HISTORY: [...] no free fluid seen within the cul-de-sac. [facility] Charles Foote MD - [...] Recommend serial beta hCGs and follow-up ultrasound. [employer] Work Phone: Radiology Study observation (narrative) [facility] [email or web address] Work Phone: US OB TRANSVAGINALOrdered By : Charles Jay on 07-28-2022 [facility] [email or web address] Work Phone: hCG, Quantitative, on 07-28-2022 hCG Quant 7888 High NINF [facility] Comment on above: Non-preg premeno <=5 Postmeno <=8 Male <=3 If HCG results do not concur with clinical observations, additional testing to confirm results is recommended. Interpretation and review of laboratory results Abnormal [facility] CBC with Diffon 07-26-2022 Abs. Basophil 0.00 k/uL Normal 0.0-0.2 [facility] Comment on above: Performed By: #### C DP, CP #### [facility] [address] [place] [address] Hand I Tube Bender: Osiel Sapp MD Abs.Neutrophil (Seg) 5.10 k/uL Normal 2.5-7.0 [facility] Comment on above: Performed By: #### C DP, CP #### [facility] [address] [place] [id number] Hand I Tube Bender: Osiel Sapp MD Auto Diff Performed YES Normal [facility] Comment on above: Performed By: #### C DP, CP #### [facility] [address] [id number] Hand I Tube Bender: Osiel Sapp MD Basophils/100 WBC (Bld) 0 % Normal 0-2 [facility] Comment on above: Performed By: #### C DP, CP #### [facility] [address] [id number] Hand I Tube Bender: Osiel Sapp MD Eosinophils (Bld) [#/Vol] 0.30 10*3/uL Normal 0.0-0.4 [facility] Comment on above: Performed By: #### C DP, CP #### [facility] [address] [place] [id number] Hand I Tube Bender: Osiel Sapp MD Eosinophils/100 WBC (Bld) 3 % Normal 0-5 [facility] Comment on above: Performed By: #### C DP, CP #### [facility] [address] [place] [address] Hand I Tube Bender: Osiel Sapp MD Erythrocyte distribution width (RBC) [Ratio] 13.1 % Normal 12.1-15.2 [facility] Comment on above: Performed By: #### C DP, CP #### [facility] [address] [place] [id number] Hand I Tube Bender: Osiel Sapp MD Hematocrit (Bld) [Volume fraction] 41.1 % Normal 36-46 [facility] Comment on above: Performed By: #### C DP, CP #### [facility] [address] [place] [address] Hand I Tube Bender: Osiel Sapp MD Hemoglobin (Bld) [Mass/Vol] 14.0 g/dL Normal 12.0-16.0 [facility] Comment on above: Performed By: #### C DP, CP #### [facility] [address] [place] [address] Hand I Tube Bender: Osiel Sapp MD Lymphocytes (Bld) [#/Vol] 2.40 10*3/uL Normal 1.0-4.8 [facility] Comment on above: Performed By: #### C DP, CP #### [facility] [address] [place] [address] Hand I Tube Bender: Osiel Sapp MD Lymphocytes/100 WBC (Bld) 28 % Normal 15-40 [facility] Comment on above: Performed By: #### C DP, CP #### [facility] [address] [place] [address] Hand I Tube Bender: Osiel Sapp MD MCH (RBC) [Entitic mass] 30.3 pg Normal 26-34 [facility] Comment on above: Performed By: #### C DP, CP #### [facility] [address] [place] [address] Hand I Tube Bender: Osiel Sapp MD MCHC (RBC) [Mass/Vol] 34.0 g/dL Normal 31-37 [facility] Comment on above: Performed By: #### C DP, CP #### [facility] [address] [place] [address] Hand I Tube Bender: Osiel Sapp MD MCV (RBC) [Entitic vol] 89.2 fL Normal 80-100 [facility] Comment on above: Performed By: #### C DP, CP #### [facility] [address] [place] [address] Hand I Tube Bender: Osiel Sapp MD Monocytes (Bld) [#/Vol] 0.60 10*3/uL Normal 0.0-1.0 [facility] Comment on above: Performed By: #### C DP, CP #### [facility] [address] [place], [place] [phone] (302) Hand I Tube Bender: Osiel Sapp MD Monocytes/100 WBC (Bld) 7 % Normal 4-8 [facility] Comment on above: Performed By: #### C DP, CP #### [facility] [address] [place], [place] [id number] (555) Hand I Tube Bender: Osiel Sapp MD Neutrophil (Seg) 62 % Normal 47-75 [facility] Comment on above: Performed By: #### C DP, CP #### [facility] [address] [place], [place] [id number] (899) Hand I Tube Bender: Osiel Sapp MD Platelets (Bld) [#/Vol] 276 10*3/uL Normal 140-450 [facility] Comment on above: Performed By: #### C DP, CP #### [facility] [address] [place], [place] [id number] (087) Hand I Tube Bender: Osiel Sapp MD RBC (Bld) [#/Vol] 4.61 10*6/uL Normal 4.0-5.2 [facility] Comment on above: Performed By: #### C DP, CP #### [facility] [address] [place], [place] [phone] (254) Hand I Tube Bender: Osiel Sapp MD WBC (Bld) [#/Vol] 8.3 10*3/uL Normal 3.5-11.0 [facility] Comment on above: Performed By: #### C DP, CP #### [facility] [address] [place], [place] [id number] (183) Hand I Tube Bender: Osiel Sapp MD Comp Metabolic Profon 2022 Albumin [Mass/Vol] 4.3 g/dL Normal 3.5-5.2 [facility] Comment on above: Performed By: #### C DP, CP #### [facility] [address] [place], [place] [address] Hand I Tube Bender: Osiel Sapp MD Alkaline Phos 115 U/L High 35-104 [facility] Comment on above: Performed By: #### C DP, CP #### [facility] [address] [place], [place] 0385290 Hand I Tube Bender: Osiel Sapp MD ALT [Catalytic activity/Vol] 16 U/L Normal 5-33 [facility] Comment on above: Performed By: #### C DP, CP #### [facility] [address] [place], [place] [id number] Hand I Tube Bender: Osiel Sapp MD Anion gap [Moles/Vol] 12 mmol/L Normal 9-17 [facility] Comment on above: Performed By: #### C DP, CP #### [facility] [address] [place], [place] 2495190 Hand I Tube Bender: Osiel Sapp MD AST [Catalytic activity/Vol] 17 U/L Normal <32 [facility] Comment on above: Performed By: #### C DP, CP #### [facility] [address] [place], [place] [id number] Hand I Tube Bender: Osiel Sapp MD Bilirubin [Mass/Vol] 0.6 mg/dL Normal 0.3-1.2 [facility] Comment on above: Performed By: #### C DP, CP #### [facility] [address] [place], [place] 6076690 Hand I Tube Bender: Osiel Sapp MD BUN/CRE Ratio 13 Normal 9-20 [facility] Comment on above: Performed By: #### C DP, CP #### [facility] [address] [place], [place] [id number] Hand I Tube Bender: Osiel Sapp MD Calcium [Mass/Vol] 9.1 mg/dL Normal 8.6-10.4 [facility] Comment on above: Performed By: #### C DP, CP #### [facility] [address] [place], [place] 8706090 Hand I Tube Bender: Osiel Sapp MD Chloride [Moles/Vol] 99 mmol/L Normal 98-107 [facility] Comment on above: Performed By: #### C DP, CP #### [facility] [address] [place], [place] [id number] Hand I Tube Bender: Osiel Sapp MD CO2 [Moles/Vol] 20 mmol/L Normal 20-31 [facility] Comment on above: Performed By: #### C DP, CP #### [facility] [address] [place], [place] 0116190 Hand I Tube Bender: Osiel Sapp MD Creatinine [Mass/Vol] 0.82 mg/dL Normal 0.50-0.90 [facility] Comment on above: Performed By: #### C DP, CP #### [facility] [address] [place], [place] 1747290 Hand I Tube Bender: Osiel Sapp MD GFR/1.73 sq M.predicted among non-blacks MDRD (S/P/Bld) [Vol rate/Area] mL/min/{1.73_m2} Normal >60 [facility] Comment on above: Result Comment: These results [...] Performed By: #### C DP, CP #### [facility] [address] [place], [place] [phone] Hand I Tube Bender: Osiel Sapp MD Glucose [Mass/Vol] 91 mg/dL Normal 70-99 [facility] Comment on above: Performed By: #### C DP, CP #### [facility] [address] [place], [place] 9647590 Hand I Tube Bender: Osiel Sapp MD Potassium [Moles/Vol] 3.7 mmol/L Normal 3.7-5.3 [facility] Comment on above: Performed By: #### C DP, CP #### [facility] [address] [place], [place] [id number] Hand I Tube Bender: Osiel Sapp MD Protein [Mass/Vol] 7.2 g/dL Normal 6.4-8.3 [facility] Comment on above: Performed By: #### C DP, CP #### [facility] [address] [place], [place] 7079090 Hand I Tube Bender: Osiel Sapp MD Sodium [Moles/Vol] 131 mmol/L Low 135-144 [facility] Comment on above: Performed By: #### C DP, CP #### [facility] [address] [place], [place] 2194490 Hand I Tube Bender: Osiel Sapp MD Urea nitrogen [Mass/Vol] 11 mg/dL Normal 6-20 [facility] Comment on above: Performed By: #### C DP, CP #### [facility] [address] [place] [address] Hand I Tube Bender: Osiel Sapp MD HCG, ,Urineon 07-26 Beta HCG ( test) Ql (U) Positive Abnormal NEG [facility] Comment on above: Result Comment: If H CG results do not concur with clinical observations, additional testing to confirm result is recommended. This test is not labeled for use as a tumor marker. Performed By: #### U A, UHCG, UMICAO #### [facility] [address] [place], [place] [id number] Hand I Tube Bender: Osiel Sapp MD HCG, Quanton 07-26-2022 HCG, Quant 5174 mIU/mL High <5 [facility] Comment on above: Result Comment: Non-preg premeno <=5 Postmeno <=8 Male <=3 If HCG results do not concur with clinical observations, additional testing to confirm results is recommended. Performed By: #### B HCG #### [facility] [address] [place], [place] [id number] Hand I Tube Bender: Osiel Sapp MD Urinalysis, Routineon 2022 Bilirubin, SemiQt,Ur Negative Normal NEG [facility] Comment on above: Performed By: #### U A, CG, UMICAO #### [facility] [address] [place], [place] 49[address] Hand I Tube Bender: Osiel Sapp MD Blood, Urine Negative Normal NEG [facility] Comment on above: Performed By: #### U A, UHCG, UMICAO #### [facility] [address] [place], [place] 78237[address] Hand I Tube Bender: Osiel Sapp MD Clarity (U) Clear Normal CLEAR [facility] Comment on above: Performed By: #### U A, UHCG, UMICAO #### [facility] [address] [place], [place] 3940990 Hand I Tube Bender: Osiel Sapp MD Color (U) Yellow Normal YEL [facility] Comment on above: Performed By: #### U A, CG, UMICAO #### [facility] [address] [facility] [place] [id number] Hand I Tube Bender: Osiel Sapp MD Comment Normal [facility] Comment on above: Performed By: #### U A, UHCG, UMICAO #### [facility] [address] [facility] [place] [id number] Hand I Tube Bender: Osiel Sapp MD Glucose Ql (U) Negative Normal NEG [facility] Comment on above: Performed By: #### U A, [facility] UMICAO #### [facility] [address] [place] [address] Hand I Tube Bender: Osiel Sapp MD Ketones Ql (U) TRACE Abnormal NEG [facility] Comment on above: Performed By: #### U A, CG, UMICAO #### [facility] [address] [place] [address] Hand I Tube Bender: Osiel Sapp MD Leukocyte esterase Test strip Ql (U) 1+ Abnormal NEG [facility] Comment on above: Performed By: #### U Renee [facility] UMICAO #### [facility] [address] [place] [address] Hand I Tube Bender: Osiel Sapp MD Nitrite,Ur Negative Normal NEG [facility] Comment on above: Performed By: #### U A, [facility] UMICAO #### [facility] [address] [place] [address] Hand I Tube Bender: Osiel Sapp MD PH,Ur 5.0 Normal 5.0-8.0 [facility] Comment on above: Performed By: #### U Renee, [facility] UMICAO #### [facility] [address] [place] [address] Hand I Tube Bender: Osiel Sapp MD Protein Ql (U) TRACE Abnormal NEG [facility] Comment on above: Performed By: #### U A, [facility] UMICAO #### [facility] [address] [place] [address] Hand I Tube Bender: Osiel Sapp MD Spec. [place],Ur 1.025 Normal 1.005-1.030 [facility] Comment on above: Performed By: #### U A, UHCG, UMICAO #### [facility] [address] [place] [address] Hand I Tube Bender: Osiel Sapp MD Urobilinogen,Ur Normal Normal NORM [facility] Comment on above: Performed By: #### U A, CG, UMICAO #### [facility] [address] [place] [address] Hand I Tube Bender: Osiel Sapp MD Urinalysis,Microon 3 ----- Normal [facility] Comment on above: Performed By: #### U A, CG, UMICAO #### [facility] [address] [place] [address] Hand I Tube Bender: Osiel Sapp MD Bacteria RARE Abnormal NONE [facility] Comment on above: Performed By: #### U A, CG, UMICAO #### [facility] [address] [place] [address] Hand I Tube Bender: Osiel Sapp MD Urine RBC's 0 TO 2 Normal 0-2 [facility] Comment on above: Performed By: #### U A, CG, UMICAO #### [facility] [address] [place] [address] Hand I Tube Bender: Osiel Sapp MD Urine WBC's 2 TO 5 Normal 0 [facility] Comment on above: Performed By: #### U A, CG, UMICAO #### [facility] [address] [place] [address] Hand I Tube Bender: Osiel Sapp MD CT LUMBAR SPINE WO [...] Ashly Miles DO 07/14/22 Final result Normal [facility] Unremarkable CT examination of the lumbar spine. [facility] CONSOLIDATED EXAMINATION:CT LUMBA R [...] Surrounding paraspinal soft tissues are grossly unremarkable. [facility] Ashly Miles DO [...] Unremarkable CT examination of the lumbar spine. [employer] Work Phone: CT LUMBAR SPINE WO CONTRASTO rdered By: Ashly Miles on 07-14-2022 [facility] [email or web address] Work Phone: HCG, ,Urineon 07-14 Beta HCG ( test) Ql (U) Negative Normal NEG [facility] Comment on above: Performed By: #### U HCG ####[facility] [id number] [place] [address] lab Director: Osiel Sapp MD CT LUMBAR SPINE WO CONTRASTo n 07-13-2022 Radiology Study observation (narrative) [employer] Phone: Urine Preg (Lab)on 3 Beta HCG ( test) Ql (U) Negative NEGATIVE [facility] COVID-19/INFLUENZA A,B NBA Valadez 05-09-2022 SARS-CoV-2 (COVID-19) Ab IA Ql INFLUENZA A (CEPHEID): Detected INFLUENZA B (CEPHEID): Not Detected SARS-COV-2 (CEPHEID): Not Detected This test was performed under the FDA's Emergency Use Authorization (EUA). Testing was performed using the Xpert?? Xpress SARS-CoV-2/Flu/RSV plus RT-PCR Cepheid assay on the [employer] Xpress System. This test has not been approved for use in asymptomatic patients and its performance in this patient population has not been evaluated. Negative results do not rule out the presence of SARS-CoV-2/COVID-19. Fact sheets for this EUA can be found at the following links: For Healthcare Providers: https://www.fda.gov/med ia/426747/download For Patients: https://www.fda.gov/med ia/729911/download [facility] Comment on above: Performed By: #### L [id number] #### SH [address] [address] Roberto Cruz M.D. [id number] CORONAVIRUS 2019, SCREEN ASY MPTOMATICon 11-09-2021 SARS-CoV-2 (COVID-19) RNA MAYTE+probe Ql (Unsp spec) Canceled Normal [facility] Comment on above: Order Comment: TEST [...] patient management decisions. Fact sheet for providers: https://www.fda.gov/media/289883/download Fact sheet for patients: https://www.fda.gov/media/432841/download This test has received [facility] Emergency Use Authorization (EUA) and has been verified by [facility] ([facility]). This test is only authorized for the duration of time that circumstances exist to justify the authorization of the emergency use of in vitro diagnostic tests for the detection of SARS-CoV-2 virus and/or diagnosis of COVID-19 infection under section 564(b)(1) of the Act, 21 U.S.C. 360bbb-3(b)(1), unless the authorization is terminated or revoked sooner. [facility] is certified under CLIA-88 as qualified to perform high complexity testing. Testing is performed in the [facility] laboratories located at [address] [place] [address]. Performed By: #### C OVSC #### [place] [address] CORONAVIRUS 2019, SCREEN ASY MPTOMATICon 10-11-2021 SARS-CoV-2 (COVID-19) RNA MAYTE+probe Ql (Unsp spec) Not detected Normal Not Detected [facility] Comment on above: Result Comment: . [...] patient management decisions. Fact sheet for providers: https://www.fda.gov/media/212660/download Fact sheet for patients: https://www.fda.gov/media/942142/download This test has received FDA Emergency Use Authorization (EUA) and has been verified by [facility] ([facility]). This test is only authorized for the duration of time that circumstances exist to justify the authorization of the emergency use of in vitro diagnostic tests for the detection of SARS-CoV-2 virus and/or diagnosis of COVID-19 infection under section 564(b)(1) of the Act, 21 U.S.C. 360bbb-3(b)(1), unless the authorization is terminated or revoked sooner. [facility] is certified under CLIA-88 as qualified to perform high complexity testing. Testing is performed in the [facility] laboratories located at [address] [place] [address]. Performed By: #### C OVSC #### [facility] [address] [facility] [place] [address] Covid 19 Resultson 2 SARS-CoV-2 (COVID-19) RNA [...] be contacted by the [facility] to see if any of your close [...] or Naproxen (Aleve) can also be used. Mwqs-bvo-llhuxop cough and cold medicines can be used according to the instructions on the package. Some bios-ccx-hsvabnx medicines also contain acetaminophen. Make sure you [...] water are not available, use alcohol-based hand oil distributor. Avoid touching your eyes, nose, and mouth [...] 24 suzette (more content not included)... Normal [facility] CORONAVIRUS 2019, SCREEN ASY MPTOMATICon 10-10-2021 Lab Specimen Source Nasal, Nasopharyngeal Normal [facility] Comment on above: Performed By: #### C OVSC #### [facility] [address] [place] [address] Coronavirus 2019 RNA by PCR, Screening Asymptomticon 10-10-2021 Coronavirus 2019 RNA by PCR, Screening Asymptomtic Not detected Normal See Below [place] [address] [employer] Work Phone: Comment on above: SOURCE: Nasal, [...] make patient management decisions.Fact sheet for providers: https://www.fda.gov/media/304601/downloadFact sheet for patients: https://www.fda.gov/media/687683/downloadThis test has received FDA Emergency Use Authorization (EUA) and has been verified by [facility] ([facility]). This test is only authorized for the duration of time that circumstances exist to justify the authorization of the emergency use of in vitro diagnostic tests for the detection of SARS-CoV-2 virus and/or diagnosis of COVID-19 infection under section 564(b)(1) of the Act, 21 U.S.C. 360bbb-3(b)(1), unless the authorization is terminated or revoked sooner. [facility] is certified under CLIA-88 as qualified to perform high complexity testing. Testing is performed in the [facility] laboratories located at [id number] [place] [address]. CORONAVIRUS 2018, SCREEN ASY MPTOMATICon 10-08-2021 Lab Specimen Source Nasal, Nasopharyngeal Normal [facility] Comment on above: Order Comment: TEST CORONAVIRUS 2018, SCREEN ASYMPTOMATIC WAS CANCELLED, 11/09/2021 11:40 test not completed. Performed By: #### C OVSC #### [facility] [id number] [place] [address]. [place] [address] Laboratory - Chemistry and C hemistry - challengeon 09-26-2021 Albumin BCP dye [Mass/Vol] 3.2 g/dL below low threshold 3.4 - 5.0 [employer] Work Phone: ALP [Catalytic activity/Vol] 125 U/L above high threshold 33 - 110 [facility] [employer] Work Phone: ALT With P-5'-P [Catalytic activity/Vol] 7 U/L 7 - 45 [facility] [employer] Work Phone: Comment on above: Patients treated wit h Sulfasalazine may generate falsely decreased results for ALT. Anion gap [Moles/Vol] 14 mmol/L 10 - 20 [facility] [employer] Work Phone: AST With P-5'-P [Catalytic activity/Vol] 10 U/L 9 - 39 [facility] [employer] Work Phone: Bilirubin [Mass/Vol] 0.6 mg/dL 0.0 - 1.2 [facility] Work Phone: Calcium [Mass/Vol] 7.7 mg/dL below low threshold 8.6 - 10.3 [employer] Work Phone: Chloride [Moles/Vol] 107 mmol/L 98 - 107 [facility] Work Phone: [phone] CO2 [Moles/Vol] 18 mmol/L below low threshold 21 - 32 [employer] Work Phone: [phone] Creatinine [Mass/Vol] 0.44 mg/dL below low threshold See Below [employer] Work Phone: Comment on above: Reference Range: 0.5 0 - 1.05 Glucose [Mass/Vol] 117 mg/dL above high threshold 74 - 99 [employer] Work Phone: Potassium [Moles/Vol] 3.5 mmol/L 3.5 - 5.3 [facility] Work Phone: Protein [Mass/Vol] 6.0 g/dL below low threshold 6.4 - 8.2 [employer] Work Phone: Sodium [Moles/Vol] 135 mmol/L below low threshold 136 - 145 [employer] Work Phone: Urea nitrogen [Mass/Vol] 7 mg/dL 6 - 23 [employer] Work Phone: Laboratory - Hematology and Cell countson 09-26-2021 Erythrocyte distribution width (RBC) [Ratio] 14.2 % See Below [employer] Work Phone: Comment on above: Reference Range: 11. 5 - 14.5 Hematocrit (Bld) [Volume fraction] 33.5 % below low threshold See Below [employer] Work Phone: Comment on above: Reference Range: 36. 0 - 46.0 Hemoglobin (Bld) [Mass/Vol] 11.1 g/dL below low threshold See Below [employer] Work Phone: Comment on above: Reference Range: 12. 0 - 16.0 MCHC (RBC) [Mass/Vol] 33.2 g/dL See Below [facility] Work Phone: Comment on above: Reference Range: 32. 0 - 36.0 MCV (RBC) [Entitic vol] 92 fL 80 - 100 [employer] Work Phone: [phone] Platelets (Bld) [#/Vol] 233 10*3/uL 150 - 450 [employer] Work Phone: [phone] RBC (Bld) [#/Vol] 3.66 {x10E12/L} below low threshold See Below [employer] Work Phone: Comment on above: Reference Range: 4.0 0 - 5.20 WBC (Bld) [#/Vol] 12.0 10*3/uL above high threshold 4.4 - 11.3 [employer] Work Phone: No Panel Informationon 09-26 >90 >90 [employer] Work Phone: Comment on above: CALCULATIONS OF YOLANDA MATED GFR ARE PERFORMED USING THE 2020 CKD-EPI STUDY REFIT EQUATION WITHOUT THE RACE VARIABLE FOR THE IDMS-TRACEABLE CREATININE METHODS.https://jasn.asnjournals.org/content/early/A SN.9772938900 Total Protein, Urine Spoton 09-26-2021 Creatinine (U) [Mass/Vol] 86.0 mg/dL See Below [employer] Work Phone: Comment on above: Reference Range: 20. 0 - 320.0 Protein (U) [Mass/Vol] 19 mg/dL 5 - 24 [employer] Work Phone: Protein/Creatinine (U) [Ratio] 0.22 {mg/mg_Creat} above high threshold See Below [place] [address] [employer] Work Phone: Comment on above: Reference Range: 0.0 0 - 0.17 Uric Acid, Serumon 2 Urate [Mass/Vol] 4.1 mg/dL 2.3 - 6.7 [place] [address] [employer] Work Phone: Comment on above: Venipuncture immedia tely after or during the administration of Metamizole may lead to falsely low results. Testing should be performed immediately prior to Metamizole dosing. GROUP B STREP SCREENon 09-17 GROUP B STREP SCREEN PATIENT: ARSALAN ESCOBAR IN L LOCATION: [facility] BILL#: [id number] : 89 AGE: SEX: F ORDERED BY: ANDRY RUEDA SOURCE: VAGINAL COLLECTED: 09/17/21 11:29 ANTIBIOTICS AT LINDA.: RECEIVED : 09/17/21 22:38 SITE: VAGINAL R E S U L T S GROUP B STREP SCREEN FINAL 09/19/21 12:47 NEGATIVE FOR GROUP B BETA STREP. Normal [facility] Comment on above: Performed By: #### G BSCR #### [facility] [address] [place] [address] Laboratory - Microbiology an d Antimicrobial susceptibilityon 09-17-2021 Bacteria identified Aer cx Nom (Genital specimen) [address] Work Phone: No Panel Informationon 09-[address] Work Phone: IO Wet Mounton 08-27-2021 IO Wet Mount Negative [place] [address] [place] Work Phone: No Panel Informationon 08-[address] Work Phone: Glucose, 1 Hour Screen, Preg nancyon 07-14-2021 Glucose 1 Hr post 50 g glucose PO [Mass/Vol] 132 mg/dL <135 [employer] Work Phone: Comment on above: Diagnostic value wit h glucose loading dose of 50 g. Reference values from [place] [employer]. Diabetes Care 2015;38(Suppl.1):S8-S16 Laboratory - Blood bankon Blood group antibody screen Ql Canceled [employer] Work Phone: Blood group antibody screen Ql Negative [employer] Work Phone: Laboratory - Hematology and Cell countson 07-14-2021 Erythrocyte distribution width (RBC) [Ratio] 13.9 % See Below [employer] Work Phone: Comment on above: Reference Range: 11. 5 - 14.5 Hematocrit (Bld) [Volume fraction] 35.7 % below low threshold See Below [employer] Work Phone: Comment on above: Reference Range: 36. 0 - 46.0 Hemoglobin (Bld) [Mass/Vol] 12.3 g/dL See Below [employer] Work Phone: Comment on above: Reference Range: 12. 0 - 16.0 MCHC (RBC) [Mass/Vol] 34.5 g/dL See Below [facility] Work Phone: Comment on above: Reference Range: 32. 0 - 36.0 MCV (RBC) [Entitic vol] 93 fL 80 - 100 [employer] Work Phone: [phone] Platelets (Bld) [#/Vol] 260 10*3/uL 150 - 450 [employer] Work Phone: RBC (Bld) [#/Vol] 3.83 {x10E12/L} below low threshold See Below [employer] Work Phone: Comment on above: Reference Range: 4.0 0 - 5.20 WBC (Bld) [#/Vol] 10.7 10*3/uL 4.4 - 11.3 [email or web address] Work Phone: No Panel Informationon 07-14 NONE [facility] [address] Work Phone: Rhogamon 07-14-2021 [facility] ORDER RECD [facility] [address] Work Phone: Rhogam Canceled [facility] [address] [address] Work Phone: RAPID TOX SCREEN WITH RELEX TO DRUGMCon 06-23-2021 Amphetamine (U) [Mass/Vol] Negative NEGATIVE NG/ML [email or web address] Comment on above: <500 ng/ml CUTOFF Barbiturates Screen Ql (U) Negative NEGATIVE NG/ML [facility] Comment on above: <200 ng/ml CUTOFF Benzodiazepines Ql (U) Negative NEGAT JESUS NG/ML [facility] Comment on above: <150 ng/ml CUTOFF Benzoylecgonine Ql (U) Negative NEGAT JESUS NG/ML [facility] Comment on above: <150 ng/ml CUTOFF Buprenorphine Ql (U) Negative NEGATIV E NG/ML [facility] Comment on above: <10 ng/ml CUTOFF Testing performed at [place], [place] [address] Cannabinoids Screen Ql (U) Negative NEGATIVE NG/ML [email or web address] Comment on above: <50 ng/ml CUTOFF Methadone Screen Ql (U) Negative NEGATIVE NG/ML [email or web address] Comment on above: <200 ng/ml CUTOFF Methamphetamine (U) [Mass/Vol] Negative NEGATIVE NG/ML [facility] Comment on above: <500 ng/ml CUTOFF Opiates Screen Ql (U) Negative NEGATI VE NG/ML [facility] Comment on above: <100 ng/ml CUTOFF oxyCODONE Ql (U) Negative NEGATIVE NG/ML [facility] Comment on above: <100 ng/ml CUTOFF Phencyclidine Screen method >25 ng/mL Ql (U) Negative NEGATIVE NG/ML [email or web address] Comment on above: <25 ng/ml CUTOFF Propoxyphene+Norpropox yphene Screen Ql (U) Negative NEGATIVE NG/ML [facility] Comment on above: <300 ng/ml CUTOFF Tricyclic antidepressants Screen Ql (U) Negative NEGATIVE NG/ML [facility] Comment on above: <300 ng/ml CUTOFF [facility] URINALYSIS, MACROon 06-23-19 22 Bilirubin Ql (U) Negative NEGATIVE [facility] Clarity (U) CLEAR CLEAR [facility] Color (U) YELLOW YELLOW [facility] Glucose Test strip (U) [Mass/Vol] Negative NEGATIVE mg/dl [facility] Hemoglobin Ql (U) Negative NEGATIVE [facility] Ketones (U) [Mass/Vol] Negative NEGAT JESUS mg/dl [facility] Leukocyte esterase Test strip Ql (U) Negative NEGATIVE [facility] Comment on above: Testing performed at [place], [place] [address] Nitrite Ql (U) Negative NEGATIVE [facility] pH (U) 6.0 [pH] [facility] Protein Ql (U) Negative NEGATIVE mg/dl [facility] Specific gravity (U) [Rel density] 1.025 [facility] Urobilinogen (U) [Mass/Vol] 0.2 mg/dL [facility] HOLTER MONITOR- EXTENDED (3 TO 7 [...] AV block No significant bradycardia episodes Normal [facility] Ambulatory Ferritinon 05-17-2021 Ferritin [Mass/Vol] 18 ng/mL 13 - 150 ng/mL [facility] Iron and Iron binding capaci ty panelon 05-17-2021 Iron [Mass/Vol] 123 [facility] [Mass/Vol] 368 [facility] Iron saturation [Mass fraction] 33 % 20 - 50 % [facility] No Panel Informationon 05-17 Interpretation and review of laboratory results Normal [facility] CTPCRon 02-14-2021 C. trachomatis Interp Normal See CT Interp N [facility] ([place]) Comment on above: Result Comment: C. t rachomatis DNA not detected. Specimen is presumptive negative for C. trachomatis. A negative result does not preclude C. trachomatis infection because results depend on adequate specimen collection, absence of inhibitors, and sufficient DNA to be detected. See CT Interp N Performed By: #### C TPCR, NGPCR1 #### [address] [address] C.trachomatis PCR Negative Normal Negative [facility] ([place]) Comment on above: Result Comment: Dias sport tube received with two swabs. Review collection procedure. Inappropriate collection may cause aberrant results. Transport tube received with two swabs. Review collection procedure. Inappropriate collection may cause aberrant results. Molecular (PCR) assay performed on the Kel[employer] Irma 4800 system. Performed By: #### C TPCR, NGPCR1 #### [address] [address] Chlam Source Vaginal Normal [facility] ([place]) Comment on above: Performed By: #### C TPCR, NGPCR1 #### [address] [address] [id number] 02-14-2021 GC PCR Source Vaginal Normal [facility] ([place] Comment on above: Performed By: #### U A, PREGU #### [address] [address] N. gonorrhoeae (PCR) Negative Normal Negative [facility] ([place]) Comment on above: Result Comment: Dias sport tube received with two swabs. Review collection procedure. Inappropriate collection may cause aberrant results. Transport tube received with two swabs. Review collection procedure. Inappropriate collection may cause aberrant results. Molecular (PCR) assay performed on the [employer] Irma 4800 System. Performed By: #### U A, PREGU #### [address] [address] N. gonorrhoeae Interp Normal See NG Interp N [facility] ([place] Comment on above: Result Comment: N. g onorrhoeae DNA not detected. Specimen is presumptive negative for N. gonorrhoeae. A negative result does not preclude Neisseria gonorrhoeae infection because results depend on adequate specimen collection, absence of inhibitors, and sufficient DNA to be detected. See NG Interp N Performed By: #### U A, PREGU #### [address] [address] .Auto Diffon 02-12-2021 Basophil, Absolute 0.00 10 3/mcL Normal 0.00-0.19 [facility] ([place]) Comment on above: Performed By: #### B MP, GFR #### [place] [address] #### CBC, ADIFF, ANEU, HCGQ, ABOG #### [address] [address] Basophils/100 WBC (Bld) 0.4 % Normal 0.0-2.5 [facility] ([place]) Comment on above: Performed By: #### B MP, GFR #### [place] [address] #### CBC, ADIFF, ANEU, HCGQ, ABOG #### [address] [address] Eosinophil, Absolute 0.00 10 3/mcL Normal 0.00-0.40 A [facility] ([place]) Comment on above: Performed By: #### B MP, GFR #### [place] [address] #### CBC, ADIFF, ANEU, HCGQ, ABOG #### [address] [address] Eosinophils/100 WBC (Bld) 0.1 % Normal 0.0-7.0 [facility] ([place] Comment on above: Performed By: #### B MP, GFR #### [place] [address] #### CBC, ADIFF, ANEU, HCGQ, ABOG #### [address] [address] Lymphocyte, Absolute 1.40 10 3/mcL Normal 0.77-3.85 A [facility] ([place]) Comment on above: Performed By: #### B MP, GFR #### [place] [address] #### CBC, ADIFF, ANEU, HCGQ, ABOG #### [address] [address] Lymphocytes/100 WBC (Bld) 29.2 % Normal 10.0-50.0 [facility] ([place] Comment on above: Performed By: #### B MP, GFR #### [place] [address] #### CBC, ADIFF, ANEU, HCGQ, ABOG #### [address] [address] Monocyte, Absolute 0.30 10 3/mcL Normal 0.15-1.00 [facility] ([place]) Comment on above: Performed By: #### B MP, GFR #### [place] [address] #### CBC, ADIFF, ANEU, HCGQ, ABOG #### [address] [address] Monocytes/100 WBC (Bld) 7.2 % Normal 1.7-13.0 [facility] ([place]) Comment on above: Performed By: #### B MP, GFR #### [place] [address] #### CBC, ADIFF, ANEU, HCGQ, ABOG #### [address] [address] Neutrophils/100 WBC (Bld) 63.1 % Normal 37.0-80.0 [facility] ([place]) Comment on above: Performed By: #### B MP, GFR #### [place] [address] #### CBC, ADIFF, ANEU, HCGQ, ABOG #### [address] [address] .GFRon 02-12-2021 GFR 96 ml/min/1.73sqm Normal [facility] ([place]) Comment on above: Result Comment: GFR [...] Performed By: #### B MP, GFR #### [address] [address] #### CBC, ADIFF, ANEU, HCGQ, ABOG #### [address] [address] GFR Non- 80 ml/min/1.73sqm Normal [facility] ([place]) Comment on above: Result Comment: GFR Population [...] Performed By: #### B MP, GFR #### [place] [address] #### CBC, ADIFF, ANEU, HCGQ, ABOG #### [address] [address] .NEUABSon 02-12-2021 Neutrophil, Absolute 3.00 10 3/mcL Normal 2.85-6.16 A [facility] ([place]) Comment on above: Performed By: #### B MP, GFR #### [place] [address] #### CBC, ADIFF, ANEU, HCGQ, ABOG #### [address] [address] BMPon 02-12-2021 BUN/Creatinine Ratio 14 ratio Normal 7-27 [facility] ([place] Comment on above: Performed By: #### B MP, GFR #### [place] [address] #### CBC, ADIFF, ANEU, HCGQ, ABOG #### [address] [address] Calcium [Mass/Vol] 8.4 mg/dL Normal 8.4-10.2 [facility] ([place]) Comment on above: Performed By: #### B MP, GFR #### [place] [address] #### CBC, ADIFF, ANEU, HCGQ, ABOG #### [address] [address] Chloride [Moles/Vol] 104 mmol/L Normal 98-107 [facility] ([place] Comment on above: Performed By: #### B MP, GFR #### [place] [address] #### CBC, ADIFF, ANEU, HCGQ, ABOG #### [address] [address] CO2 [Moles/Vol] 26 mmol/L Normal 22-29 [facility] ([place] Comment on above: Performed By: #### B MP, GFR #### [place] [address] #### CBC, ADIFF, ANEU, HCGQ, ABOG #### [address] [address] Creatinine [Mass/Vol] 0.84 mg/dL Normal 0.55-1.02 [facility] ([place]) Comment on above: Performed By: #### B MP, GFR #### [place] [address] #### CBC, ADIFF, ANEU, HCGQ, ABOG #### [address] [address] Electrolyte Balance 11.0 mEq/L Normal [facility] ([place]) Comment on above: Performed By: #### B MP, GFR #### [address] [address] #### CBC, ADIFF, ANEU, HCGQ, ABOG #### [address] [address] Glucose [Mass/Vol] 151 mg/dL High 70-105 [facility] ([place]) Comment on above: Performed By: #### B MP, GFR #### [place] [address] #### CBC, ADIFF, ANEU, HCGQ, ABOG #### [address] [address] Potassium [Moles/Vol] 3.7 mmol/L Normal 3.5-5.1 [facility] ([place] Comment on above: Performed By: #### B MP, GFR #### [place] [address] #### CBC, ADIFF, ANEU, HCGQ, ABOG #### [address] [address] Sodium [Moles/Vol] 141 mmol/L Normal 136-145 [facility] ([place]) Comment on above: Performed By: #### B MP, GFR #### [place] [address] #### CBC, ADIFF, ANEU, HCGQ, ABOG #### [address] [address] Urea nitrogen [Mass/Vol] 12 mg/dL Normal 7-18 [facility] ([place] Comment on above: Performed By: #### B MP, GFR #### [place] [address] #### CBC, ADIFF, ANEU, HCGQ, ABOG #### [address] [address] CBCon 02-12-2021 Erythrocyte distribution width (RBC) [Ratio] 13.1 % Normal 11.5-14.5 [facility] ([place]) Comment on above: Performed By: #### B MP, GFR #### [place] [address] #### CBC, ADIFF, ANEU, HCGQ, ABOG #### [address] [address] Hematocrit (Bld) [Volume fraction] 42.0 % Normal 37.0-47.0 [facility] ([place]) Comment on above: Performed By: #### B MP, GFR #### [place] [address] #### CBC, ADIFF, ANEU, HCGQ, ABOG #### [place] [address] Hgb 14.3 G/dL Normal 12.0-16.0 [facility] ([place] Comment on above: Performed By: #### B MP, GFR #### [place] [address] #### CBC, ADIFF, ANEU, HCGQ, ABOG #### [address] [address] MCH (RBC) [Entitic mass] 31.5 pg High 27.0-31.2 [facility] ([place] Comment on above: Performed By: #### B MP, GFR #### [place] [address] #### CBC, ADIFF, ANEU, HCGQ, ABOG #### [place] [address] MCHC 34.1 G/dL Normal 33.0-37.0 [facility] ([place] Comment on above: Performed By: #### B MP, GFR #### [place] [address] #### CBC, ADIFF, ANEU, HCGQ, ABOG #### [address] [address] MCV (RBC) [Entitic vol] 92.3 fL Normal 80.0-94.0 [facility] ([place] Comment on above: Performed By: #### B MP, GFR #### [place] [address] #### CBC, ADIFF, ANEU, HCGQ, ABOG #### [address] [address] Platelet 199 10 3/mcL Normal 130-400 [facility] ([place]) Comment on above: Performed By: #### B MP, GFR #### [place] [address] #### CBC, ADIFF, ANEU, HCGQ, ABOG #### [address] [address] Platelet mean volume (Bld) [Entitic vol] 8.6 fL Normal 7.4-10.4 [facility] ([place] Comment on above: Performed By: #### B MP, GFR #### [place] [address] #### CBC, ADIFF, ANEU, HCGQ, ABOG #### [address] [address] RBC 4.55 10 6/mcL Normal 4.20-5.40 [facility] ([place] Comment on above: Performed By: #### B MP, GFR #### [place] [address] #### CBC, ADIFF, ANEU, HCGQ, ABOG #### [address] [address] WBC 4.80 10 3/mcL Normal 4.60-10.80 [facility] ([place] Comment on above: Performed By: #### B MP, GFR #### [place] [address] #### CBC, ADIFF, ANEU, HCGQ, ABOG #### [address] [address] Gel ABOon 02-12-2021 ABO/Rh Interp Negative Invalid Interpretation Code [facility] ([place] Comment on above: Performed By: #### B MP, GFR #### [place] [address] #### CBC, ADIFF, ANEU, HCGQ, ABOG #### [address] [address] HCGQon 02-12-2021 hCG, quantitative 5108.5 mIU/mL Normal [facility] ([place] Comment on above: Result Comment: HCG Quantitative [...] Performed By: #### B MP, GFR #### [place] [address] #### CBC, ADIFF, ANEU, HCGQ, ABOG #### [address] [address] PREGUon 02-12-2021 HCG ( test) Ql (U) Positive Normal [facility] ([place] Comment on above: Performed By: #### U A, PREGU #### [address] [address] test (u) int Detected Invalid Interpretation Code [facility] ([place] Comment on above: Performed By: #### U A, PREGU #### [address] [address] UAon 02-12-2021 Color (U) Yellow Normal [facility] ([place] Comment on above: Performed By: #### U A, PREGU #### [address] [address] Glucose (U) [Mass/Vol] Negative Normal Negative [facility] ([place]) Comment on above: Performed By: #### U A, PREGU #### [address] [address] Ketones Ql (U) 80 mg/dL Abnormal Negative [facility] ([place] Comment on above: Performed By: #### U A, PREGU #### [address] [address] UA Appear Clear Normal Clear [facility] ([place] Comment on above: Performed By: #### U A, PREGU #### [address] [address] UA Bili Small Abnormal Negative [facility] ([place] Comment on above: Performed By: #### U A, PREGU #### [address] [address] UA Blood Negative Normal Negative [facility] ([place] Comment on above: Performed By: #### U A, PREGU #### [address] [address] UA Leuk Est Negative Normal Negative [facility] ([place] Comment on above: Performed By: #### U A, PREGU #### [address] [address] UA Nitrite Negative Normal Negative [facility] ([place] Comment on above: Performed By: #### U A, PREGU #### [address] [address] UA pH 6.0 Normal 5.0 - 8.0 [facility] ([place] Comment on above: Performed By: #### U A, PREGU #### [address] [address] UA Protein Trace Normal Negative [facility] ([place] Comment on above: Performed By: #### U A, PREGU #### [place] [address] UA Spec Grav >=1.030 Abnormal 1.015-1.025 [facility] ([place] Comment on above: Performed By: #### U A, PREGU #### [address] [address] UA Specimen Type Clean Catch Normal [facility] ([place] Comment on above: Performed By: #### U A, PREGU #### [address] [address] UA Urobilinogen 0.2 E.U./dL Normal 0.2-1.0 [facility] ([place] Comment on above: Performed By: #### U A, PREGU #### [address] [address] CBC and Differentialon 10-17 Abs Baso 0.04 k/uL Normal <0.11 [facility] Comment on above: Performed By: #### C BCDIF, BETAMM, CMP, LIPA #### [facility] [address] [place] [address] Abs [place] 0.64 k/uL Normal <0.87 [facility] Comment on above: Performed By: #### C BCDIF, BETAMM, CMP, LIPA #### [facility] [address] [place] [address] Abs Neut 4.48 k/uL Normal 1.45-7.50 [facility] Comment on above: Performed By: #### C BCDIF, BETAMM, CMP, LIPA #### [facility] [address] [place], [place] [id number] Basophils/100 WBC (Bld) 0.5 % Normal [facility] Comment on above: Performed By: #### C BCDIF, BETAMM, CMP, LIPA #### [facility] [address] [place] [address] Eosinophils #/vol (Bld) 0.26 10*3/uL Normal <0.46 [facility] Comment on above: Performed By: #### C BCDIF, BETAMM, CMP, LIPA #### [facility] [address] [place], [place] [id number] Eosinophils/100 WBC (Bld) 3.4 % Normal [facility] Comment on above: Performed By: #### C BCDIF, BETAMM, CMP, LIPA #### [facility] [address] [place] [address] Erythrocyte distribution width Ratio (RBC) 13.1 % Normal 11.5-15.0 [facility] Comment on above: Performed By: #### C BCDIF, BETAMM, CMP, LIPA #### [facility] [address] [place] [address] Hematocrit Volume Fraction (Bld) 44.4 % Normal 36.0-46.0 [facility] Comment on above: Performed By: #### C BCDIF, BETAMM, CMP, LIPA #### [facility] [address] [place] [address] Hemoglobin mass conc (Bld) 14.8 g/dL Normal 11.5-15.5 [facility] Comment on above: Performed By: #### C BCDIF, BETAMM, CMP, LIPA #### [facility] [address] [place] [address] Lymphocytes #/vol (Bld) 2.28 10*3/uL Normal 1.00-4.00 [facility] Comment on above: Performed By: #### C BCDIF, BETAMM, CMP, LIPA #### [facility] [address] [place] [address] Lymphocytes/100 WBC (Bld) 29.6 % Normal [facility] Comment on above: Performed By: #### C BCDIF, BETAMM, CMP, LIPA #### [facility] [address] [place] [address] MCH Entitic mass (RBC) 30.4 pG Normal 26.0-34.[address] [facility] Comment on above: Performed By: #### C BCDIF, BETAMM, CMP, LIPA #### [facility] [address] [place] [address] MCHC mass conc (RBC) 33.3 g/dL Normal 30.5-36.0 [facility] Comment on above: Performed By: #### C BCDIF, BETAMM, CMP, LIPA #### [facility] [address] [phone] MCV Entitic volume (RBC) 91.2 fL Normal 80.0-100.0 [facility] Comment on above: Performed By: #### C BCDIF, BETAMM, CMP, LIPA #### [facility] [address] [place] [address] Monocytes/100 WBC (Bld) 8.3 % Normal [facility] Comment on above: Performed By: #### C BCDIF, BETAMM, CMP, LIPA #### [facility] [address] [place] [address] Neutrophils/100 WBC (Bld) 58.2 % Normal [facility] Comment on above: Performed By: #### C BCDIF, BETAMM, CMP, LIPA #### [facility] [address] [place] [address] Platelet mean volume Entitic volume (Bld) 10.7 fL Normal 9.0-12.7 [facility] Comment on above: Performed By: #### C BCDIF, BETAMM, CMP, LIPA #### [facility] [address] [place] [address] Platelets #/vol (Bld) 283 10*3/uL Normal 150-[address] [facility] Comment on above: Performed By: #### C BCDIF, BETAMM, CMP, LIPA #### [facility] [address] [place] [address] RBC #/vol (Bld) 4.87 10*6/uL Normal 3.90-5.20 [facility] Comment on above: Performed By: #### C BCDIF, BETAMM, CMP, LIPA #### [facility] [address] [place] [address] WBC #/vol (Bld) 7.70 10*3/uL Normal 3.70-11.00 [facility] Comment on above: Performed By: #### C BCDIF, BETAMM, CMP, LIPA #### [facility] [address] [place] [address] CT ABD/PEL W IVCONon 05-15-[address] ABD/PEL W IVCON * * *Final Report* * * DATE OF EXAM: Oct 17 2018 6:20PM [facility] [place]/PEL W IVCON / [...] or pelvis. 2. Nonobstructing renal calculi bilaterally. Machine Tracer: PSCAdria Transcribe Date/Time: Oct 17 2018 6:22P Dictated by : AG ALLAN MD This examination was interpreted and the report reviewed and electronically signed by: AG ALLAN MD on Oct 17 2018 6:35PM EST [id number] Normal [facility] Comp Metabolic Panelon 10-17 Albumin mass conc 4.0 g/dL Normal 3.9-4.9 [facility] Comment on above: Performed By: #### C BCDIF, BETAMM, CMP, LIPA #### [facility] [address] ALP enzyme act/vol 66 U/L Normal 34-123 [facility] Comment on above: Performed By: #### C BCDIF, BETAMM, CMP, LIPA #### [facility] [address] [place] [address] ALT enzyme act/vol 11 U/L Normal 7-38 [facility] Comment on above: Performed By: #### C BCDIF, BETAMM, CMP, LIPA #### [facility] [address] [place] [address] Anion gap molar conc 10 mmol/L Normal 9-18 [facility] Comment on above: Performed By: #### C BCDIF, BETAMM, CMP, LIPA #### [facility] [address] [place] [address] AST enzyme act/vol 14 U/L Normal 13-35 [facility] Comment on above: Performed By: #### C BCDIF, BETAMM, CMP, LIPA #### [facility] [address] [place] [address] Bilirubin mass conc 0.5 mg/dL Normal 0.2-1.3 [facility] Comment on above: Performed By: #### C BCDIF, BETAMM, CMP, LIPA #### [facility] [address] [place] [address] Calcium mass conc 8.8 mg/dL Normal 8.5-10.2 [facility] Comment on above: Performed By: #### C BCDIF, BETAMM, CMP, LIPA #### [facility] [address] Chloride molar conc 104 mmol/L Normal 97-105 [facility] Comment on above: Performed By: #### C BCDIF, BETAMM, CMP, LIPA #### [facility] [address] [place] [address] CO2 molar conc 22 mmol/L Normal 22-30 [facility] Comment on above: Performed By: #### C BCDIF, BETAMM, CMP, LIPA #### [facility] [address] [place] [address] Creatinine mass conc 0.83 mg/dL Normal 0.58-0.96 [facility] Comment on above: Performed By: #### C BCDIF, BETAMM, CMP, LIPA #### [facility] [address] [facility] [phone] eGFR- Amer. >60 Normal [facility] Comment on above: Performed By: #### C BCDIF, BETAMM, CMP, LIPA #### [facility] [address] [facility] [phone] GFR/1.73 sq M predicted among non-blacks MDRD vol rate/area (S/P/Bld) mL/min/{1.73_m2} Normal [facility] Comment on above: Result Comment: [...] #### C BCDIF, BETAMM, CMP, LIPA #### [facility] [address] [place] [address] Glucose mass conc 99 mg/dL Normal 74-99 [facility] Comment on above: Result Comment: The [place] [employer] Association (ADA) provides guidance for cutoff [...] Standards of Medical Care in Diabetes 2016, [place] [employer]. Diabetes Care. 2016.39(Suppl 1). Performed By: #### C BCDIF, BETAMM, CMP, LIPA #### [facility] [address] [facility] [phone] Potassium molar conc 3.9 mmol/L Normal 3.7-5.1 [facility] Comment on above: Performed By: #### C BCDIF, BETAMM, CMP, LIPA #### [facility] [address] [facility] [phone] Protein mass conc 7.5 g/dL Normal 6.3-8.0 [facility] Comment on above: Performed By: #### C BCDIF, BETAMM, CMP, LIPA #### [facility] [address] [facility] [phone] Sodium molar conc 136 mmol/L Normal 136-144 [facility] Comment on above: Performed By: #### C BCDIF, BETAMM, CMP, LIPA #### [facility] [address] [facility] [phone] Urea nitrogen mass conc 10 mg/dL Normal 7-21 [facility] Comment on above: Performed By: #### C BCDIF, BETAMM, CMP, LIPA #### [facility] [address] [facility] [phone] ED NOTEon 10-17-2018 ED NOTE HNO ID: [id number] Author: Elba Nguyen RN Service: ? Author Type: Registered Nurse Type: ED Notes Filed: 10/17/2018 7:10 PM Note Text: Pt was ambulatory with her discharge [facility] ED NOTE HNO ID: [id number] Author: Elba Nguyen RN Service: ? Author Type: Registered Nurse Type: ED Notes Filed: 10/17/2018 7:08 PM Note Text: Pt was discharged home and will follow up with her family medical dr as per needed [facility] ED NOTE HNO ID: [id number] Author: Elba Nguyen RN Service: ? Author Type: Registered Nurse Type: ED Notes Filed: 10/17/2018 7:00 PM Note Text: viktor harris has rounded [facility] ED NOTE HNO ID: [id number] Author: Elba Nguyen RN Service: ? Author Type: Registered Nurse Type: ED Notes Filed: 10/17/2018 5:56 PM Note Text: Pt report was received Pt is in a position of comfort [facility] ED NOTE HNO ID: [id number] Author: Charleen Amezcua) MICHAEL Clifton Service: ? [...] weight loss over the last two months [facility] ED PROV NOTEon 10-17-2018 Protein mass conc HNO ID: [id number] Author: Viktor Smith (Pa) Service: Emergency Medicine Author Type: Physician Sessions Clerk Type: ED Provider Notes Filed: 10/17/2018 6:56 [...] Laterality Date - COLONOSCOP W/ OR W/O [email or web address] SPEC 11/21/2013 Colonoscopy AND EGD - COLONOSCOP W/ OR W/O [facility] [[email or web address] SPEC 07/20/2017 Colonoscopy - EGD W/O OR W/BRUSH/WASH 07/20/2017 EGD - EGD W/O OR W/BRUSH/WASH 08/08/2018 EGD - LAPAROSCOPIC CHOLEYCYSTECTOMY 09/14/2009 - LEEP PROCEDURE ([employer]PT)_*[place] 09/09/2015 - SVT ABLATION 05/2015 procedure [...] or pelvis. 2. Nonobstructing renal calculi bilaterally. Machine Tracer: TONYA Transcribe Date/Time: Oct 17 2018 6:22P [...] Abs Lymph 2.28 1.00 - 4.00 k/uL [place]% 8.3 % Abs [place] 0.64 <0.87 k/uL Eosin% 3.4 % Abs [...] Negative Negative Ketones, Urine Negative Negative Specific [place], Ur 1.015 1.001 - 1.029 Hemoglobin/Blood,Ur Negative [...] in writing to patient (patient guardian / authorization representative), who verbalized understanding. This note was partially generated using Activity R[employer] voice recognition system, and there may be some incorrect words, spellings, and punctuation that were not noted in checking the note before saving SIGNATURE: ADIA Workman (Pa) 10/17/18 1856 Normal [facility] Lipaseon 10-17-2018 Lipase enzyme act/vol 35 U/L Normal 16-61 [facility] Comment on above: Performed By: #### C BCDIF, BETAMM, CMP, LIPA ####[facility] [address] [phone] Serum Beta HCG [facility]/// ED/SL/LOon 10-17-2018 HCG.beta subunit Qn Negative Normal Negative [facility] Comment on above: Result Comment: Fals e positives and false negatives are rare but have been described. Clinical correlation of the findings is recommended. Performed By: #### C BCDIF, BETAMM, CMP, LIPA #### [facility] [address] [facility] [phone] Urinalysison 10-17-2018 Bilirubin, Urine Negative Normal Negative [facility] Comment on above: Performed By: #### U A ####[facility] [address] [place] [address] Clarity Nom (U) Clear Normal Clear [facility] Comment on above: Performed By: #### U A ####[facility] [address] [place] [address] Color Nom (U) Yellow Normal Yellow [facility] Comment on above: Performed By: #### U A ####[facility] [address] [place] [address] Glucose Ql (U) Negative Normal Negative [facility] Comment on above: Performed By: #### U A ####[facility] [address] [place] [address] Hemoglobin/Blood,Ur Negative Normal Negative [facility] Comment on above: Performed By: #### U A ####[facility] [address] [place] [address] Ketones Ql (U) Negative Normal Negative [facility] Comment on above: Performed By: #### U A ####[facility] [address] [place] [address] Leukest Negative Normal Negative [facility] Comment on above: Performed By: #### U A ####[facility] [address] [place] [address] Nitrite Ql (U) Negative Normal Negative [facility] Comment on above: Performed By: #### U A ####[place] [address] pH (Bld) 6.5 Normal 5.0-8.0 [facility] Comment on above: Performed By: #### U A ####[facility] [address] [place] [address] Protein mass conc (U) Negative Normal Negative [facility] Comment on above: Performed By: #### U A ####[facility] [address] [place] [address] Specific [place], Ur 1.015 Normal 1.001-1.029 [facility] Comment on above: Performed By: #### U A ####[facility] [address] [place] [address] Urobilinogen Qn (U) 0.2 Normal 0.2-1.0 [facility] Comment on above: Performed By: #### U A ####[facility] [address] [phone] Basic Metabolic Panelon 09-03 Calcium mass conc 9.5 mg/dL Normal 8.4-10.4 [facility] Comment on above: Performed By: #### H EMDF, BMP3 #### [facility] [address] [place] [address] Glucose mass conc 92 mg/dL Normal 70-100 [facility] Comment on above: Performed By: #### H EMDF, BMP3 #### [facility] [address] [place] [address] Urea nitrogen mass conc 13 mg/dL Normal 7-20 [facility] Comment on above: Performed By: #### H EMDF, BMP3 #### [facility] [address] [place] [address] Anion gap molar conc 8 Normal [facility] Comment on above: Performed By: #### H EMDF, BMP3 #### [facility] [address] [place] [address] CO2 molar conc 25 mmol/L Normal 22-30 [facility] Comment on above: Performed By: #### H EMDF, BMP3 #### [facility] [address] [place] [address] Creatinine mass conc 0.74 mg/dL Normal 0.52-1.25 [facility] Comment on above: Performed By: #### H EMDF, BMP3 #### [facility] [address] [place] [address] GFR/1.73 sq M predicted among blacks MDRD vol rate/area (S/P/Bld) mL/min/{1.73_m2} Normal >60 [facility] Comment on above: Performed By: #### H EMDF, BMP3 #### [facility] [address] [place] [address] GFR/1.73 sq M predicted among non-blacks MDRD vol rate/area (S/P/Bld) mL/min/{1.73_m2} Normal >60 [facility] Comment on above: Result Comment: Sour ce- MDRD equation with creatinine calibration to IDMS(NKDEP) eGFR not recommended for drug dose adjustment Performed By: #### H EMDF, BMP3 #### [facility] [address] [place] [address] Potassium molar conc 3.6 mmol/L Normal 3.5-5.1 [facility] Comment on above: Performed By: #### H EMDF, BMP3 #### [facility] [address] [place] [address] Chloride molar conc 106 mmol/L Normal 98-107 [facility] Comment on above: Performed By: #### H EMDF, BMP3 #### [facility] [address] [place] [address] Sodium molar conc 139 mmol/L Normal 135-145 [facility] Comment on above: Performed By: #### H EMDF, BMP3 #### [facility] [address] [place] [address] HCG,Urine Qualon 09-18-2018 HCG.beta subunit ( test) Ql (U) Negative Normal Negative [facility] Comment on above: Result Comment: Preg fallon is the most common reason for HCG in urine, although choriocarcinoma, hydatidiform mole, and certain nontropho- blastic malignancies also result in detectable urinary HCG levels. Sensitivity = 20mIU/mL. Performed By: #### H CGUR, UAMAC, UAMIC #### [facility] [address] [place] [address] Hemogram w/ Autodiffon 09-18 Abs Baso Cnt 0.0 10*3/uL Normal 0.0-0.2 [facility] Comment on above: Performed By: #### H EMDF, BMP3 #### [facility] [address] [place] [address] Abs Neutrophile Cnt 4.9 10*3/uL Normal 1.8-7.0 [facility] Comment on above: Performed By: #### H EMDF, BMP3 #### [facility] [address] [place] [address] Basophils/100 WBC (Bld) 0.6 % Normal 0.0-2.0 [facility] Comment on above: Performed By: #### H EMDF, BMP3 #### [facility] [place] [facility] [address] [place] [address] Eosinophils #/vol (Bld) 0.1 10*3/uL Normal 0.0-0.5 [facility] Comment on above: Performed By: #### H EMDF, BMP3 #### [facility] [address] [place] [address] Eosinophils/100 WBC (Bld) 1.4 % Normal 1.0-6.0 [facility] Comment on above: Performed By: #### H EMDF, BMP3 #### [facility] [address] [place] [address] Erythrocyte distribution width Ratio (RBC) 13.5 % Normal 11.5-14.5 [facility] Comment on above: Performed By: #### H EMDF, BMP3 #### [facility] [address] [place] [address] Granulocytes/100 WBC (Bld) 63.0 % Normal 40.0-80.0 [facility] Comment on above: Performed By: #### H EMDF, BMP3 #### [facility] [address] [place] [address] Hematocrit Volume Fraction (Bld) 39.8 % Normal 35.0-47.0 [facility] Comment on above: Performed By: #### H EMDF, BMP3 #### [facility] [place] [facility] [address] [place] [address] Hemoglobin mass conc (Bld) 13.6 g/dL Normal 11.7-16.0 [facility] Comment on above: Performed By: #### H EMDF, BMP3 #### [facility] [address] [place] [address] Lymphocytes #/vol (Bld) 2.2 10*3/uL Normal 1.0-4.3 [facility] Comment on above: Performed By: #### H EMDF, BMP3 #### [facility] [facility] [address] [place] [address] Lymphocytes/100 WBC (Bld) 27.6 % Normal 20.0-40.0 [facility] Comment on above: Performed By: #### H EMDF, BMP3 #### [facility] [address] [place] [address] MCH Entitic mass (RBC) 30.9 pg Normal 26.0-34.0 [facility] Comment on above: Performed By: #### H EMDF, BMP3 #### [facility] [address] [place] [address] MCHC mass conc (RBC) 34.3 % Normal 32.0-36.0 [facility] Comment on above: Performed By: #### H EMDF, BMP3 #### [facility] [address] [place] [address] MCV Entitic volume (RBC) 90.0 fL Normal 79.0-98.0 [facility] Comment on above: Performed By: #### H EMDF, BMP3 #### [facility] [address] [place] [address] Monocytes #/vol (Bld) 0.6 10*3/uL Normal 0.0-0.8 [facility] Comment on above: Performed By: #### H EMDF, BMP3 #### [facility] [address] [place] [address] Monocytes/100 WBC (Bld) 7.4 % Normal 2.0-10.0 [facility] Comment on above: Performed By: #### H EMDF, BMP3 #### [facility] [address] [place] [address] Platelet mean volume Entitic volume (Bld) 8.1 fL Normal 7.4-10.4 [facility] Comment on above: Performed By: #### H EMDF, BMP3 #### [facility] [address] [place] [address] Platelets #/vol (Bld) 296 10*3/uL Normal 140-440 [facility] Comment on above: Performed By: #### H EMDF, BMP3 #### [facility] [address] [place] [address] RBC #/vol (Bld) 4.42 10*6/uL Normal 3.80-5.20 [facility] Comment on above: Performed By: #### H EMDF, BMP3 #### [facility] [address] [place] [address] WBC #/vol (Bld) 7.8 10*3/uL Normal 3.6-10.7 [facility] Comment on above: Performed By: #### H EMDF, BMP3 #### [facility] [address] [place] [address] Urinalysis,Macroon 9 Appearance Nom (U) CLEAR Normal Clear [facility] Comment on above: Performed By: #### H EMDF, CMP3, LIPA4 #### [facility] [address] [place] [address] Bilirubin,Ur Positive Normal Negative [facility] Comment on above: Performed By: #### H EMDF, CMP3, LIPA4 #### [facility] [address] [place] [address] Color Nom (U) YELLOW Normal Lt. Yellow [facility] Comment on above: Performed By: #### H EMDF, CMP3, LIPA4 #### [facility] [address] [place] [address] Glucose Ql (U) Negative Normal Negative [facility] Comment on above: Performed By: #### H EMDF, CMP3, LIPA4 #### [facility] [address] [place] [address] Ketone,Urine TRACE Normal Negative [facility] Comment on above: Performed By: #### H EMDF, CMP3, LIPA4 #### [facility] [address] [place] [address] Nitrite Ql (U) Negative Normal Negative [facility] Comment on above: Performed By: #### H EMDF, CMP3, LIPA4 #### [facility] [address] [place] [address] Occult Blood,Ur Negative Normal Negative [facility] Comment on above: Performed By: #### H EMDF, CMP3, LIPA4 #### [facility] [address] [place] [address] pH (U) 6.0 Normal 5.0-8.0 [facility] Comment on above: Performed By: #### H EMDF, CMP3, LIPA4 #### [facility] [address] [place] [address] Protein mass conc (U) TRACE Normal Negative [facility] Comment on above: Performed By: #### H EMDF, CMP3, LIPA4 #### [facility] [address] [place] [address] Specific [place],Urine 1.025 Normal 1.005-1.030 [facility] Comment on above: Performed By: #### H EMDF, CMP3, LIPA4 #### [facility] [address] [place] [address] Urobilinogen Qn (U) 1.0 mg/dL Normal 0-1 [facility] Comment on above: Performed By: #### H EMDF, CMP3, LIPA4 #### [facility] [address] [place] [address] WBC #/vol (Bld) Negative Normal Negative [facility] Comment on above: Performed By: #### H EMDF, CMP3, LIPA4 #### [facility] [address] [place] [address] Urinalysis,Microscopicon Bacteria LM.HPF #/area (Urine sed) Few (1-5) Normal Negative [facility] Comment on above: Performed By: #### H EMDF, CMP3, LIPA4 #### [facility] [address] [place] [address] Cast, Hyaline 3 - 5 Normal 0-1 [facility] Comment on above: Performed By: #### H EMDF, CMP3, LIPA4 #### [facility] [address] [place] [address] Epithelial cells LM.HPF #/area (Urine sed) 0 - 2 Normal 3-5 [facility] Comment on above: Performed By: #### H EMDF, CMP3, LIPA4 #### [facility] [address] [place] [address] Mucous Threads Moderate Normal Negative [facility] Comment on above: Performed By: #### H EMDF, CMP3, LIPA4 #### [facility] [address] [place] [address] RBC LM.HPF #/area (Urine sed) 0 - 2 Normal 0-2 [facility] Comment on above: Performed By: #### H EMDF, CMP3, LIPA4 #### [facility] [address] [place] [address] WBC LM.HPF #/area (Urine sed) 0 - 2 Normal 0-5 [facility] Comment on above: Performed By: #### H EMDF, CMP3, LIPA4 #### [facility] [address] [place] [address] BMPon 09-01-2018 Anion gap molar conc 12 mmol/L 10 - 20 mmol/L [facility] Calcium mass conc 8.3 mg/dL Low 8.4 - 10.2 mg/dL [facility] Chloride molar conc 110 mmol/L High 98 - 108 mmol/L [facility] Creatinine mass conc 1.13 mg/dL High 0.4 - 1 .1 mg/dL [facility] GFR/1.73 sq M predicted among non-blacks MDRD vol rate/area (S/P/Bld) The eGFR should be used for monitoring renal function only and not for medication dosing. [facility] GFR/1.73 sq M.predicted CKD-EPI vol rate/area (S/P/Bld) 66 >=60 mL/min/1.73 m2 [facility] Glucose mass conc 78 mg/dL 65 - 99 mg/dL [facility] HCO3 molar conc 22 mmol/L 21 - 32 mmol/L [facility] Potassium molar conc 3.4 mmol/L Low 3.5 - 5 .1 mmol/L [facility] Sodium molar conc 141 mmol/L 135 - 145 mmol/L [facility] Urea nitrogen mass conc 7 mg/dL Low 8 - 25 mg/dL [facility] Urea nitrogen/Creatinine mass ratio 6.2 mg/mg Low [facility] CBC WITH AUTO DIFFERENTIALon 09-01-2018 Basophils #/vol (Bld) 0.04 10*3/uL [facility] Basophils/100 WBC (Bld) 0.3 % [facility] Eosinophils #/vol (Bld) 0.12 10*3/uL [facility] Eosinophils/100 WBC (Bld) 0.9 % [facility] Erythrocyte distribution width Entitic volume (RBC) 13.3 % 11.6 - 14.8 % [facility] Hematocrit Volume Fraction (Bld) 38.6 % 36 - 46 % [facility] Hemoglobin mass conc (Bld) 12.9 g/dL 12 - 16 g/dL [facility] Immature granulocytes #/vol (Bld) 0.05 10*3/uL [facility] Immature granulocytes/100 WBC (Bld) 0.40 % [facility] Comment on above: The IG parameter is the percentage of metamyelocytes, myelocytes, and promyelocytes. Interpretation and review of laboratory results Abnormal [facility] Lymphocytes #/vol (Bld) 2.10 10*3/uL [facility] Lymphocytes/100 WBC (Bld) 16.4 % [facility] MCH Entitic mass (RBC) 30.1 pg 26 - 34 pg [facility] MCHC mass conc (RBC) 33.4 g/dL 31 - 37 g/dL [facility] MCV Entitic volume (RBC) 90.2 fL 80 - 100 fL [facility] Monocytes #/vol (Bld) 1.27 10*3/uL [facility] Monocytes/100 WBC (Bld) 9.9 % [facility] Neutrophils #/vol (Bld) 9.22 10*3/uL High [facility] Neutrophils/100 WBC (Bld) 72.1 % [facility] Nucleated RBC #/vol (Bld) 0.00 10*3/uL [facility] Nucleated RBC/100 WBC Ratio (Bld) 0.0 % [facility] Platelet mean volume Entitic volume (Bld) 10.8 fL 9 - 15.5 fL [facility] Platelets #/vol (Bld) 226 10*3/uL [facility] RBC #/vol (Bld) 4.28 10*6/uL [facility] WBC #/vol (Bld) 12.80 10*3/uL High [facility] alth CT KIDNEY STONEon 09-01-2018 Sflc-dt-wtivhtmp left-sided hydroureteronephrosis secondary to an obstructing 3 mm very distal left ureteral calculus. [employer] Workstation ID: [id number] [facility] EXAMINATION: CT KIDN EY STONE HISTORY: ORDERING [...] No abdominal/pelvic lymphadenopathy is present. There is bjai-ib-nuklcuhj left-sided hydroureteronephrosis secondary to an obstructing 3 [...] device. No pelvic free fluid is evident. [facility], Rad In Fu ji Speechq - 09/01/2018 [...] No abdominal/pelvic lymphadenopathy is present. There is zjye-ts-sznuxqwl left-sided hydroureteronephrosis secondary to an obstructing 3 [...] No pelvic free fluid is evident. IMPRESSION: Cjtp-md-crgfkdvc left-sided hydroureteronephrosis secondary to an obstructing 3 mm very distal left ureteral calculus. 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 Normal [facility] ED PROV NOTEon 09-01-2018 Protein mass conc HNO ID: [id number] Author: Ondina Segal MD Service: Emergency Medicine [...] [facility] Protein mass conc HNO ID: [id number] Author: Hitesh Restrepo MD Service: Emergency Medicine [...] tenderness on the left. Patient was at [place] [place] ED yesterday. Stated they did an ultrasound and x-ray and diagnosed the stone. She followed up with a Urologist today. Does not rememeber their name. Was seen at [facility]. 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 Pt states she went to [place] and followed up with a urologist. Pt [...] 4 days. Patient states was seen at [facility] ER and diagnosed with a kidney [...] symptoms or hematuria. 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030 All [...] PM Hitesh Restrepo MD 09/01/18 1445 Normal [facility] Hepatic Function Panel (LFT) on 09-01-2018 Albumin mass conc 3.2 g/dL 3.2 - 5.2 g/dL [facility] ALP enzyme act/vol 56 U/L 40 - 140 U/L [facility] ALT enzyme act/vol 22 U/L 14 - 65 U/L [facility] AST enzyme act/vol 16 U/L 0 - 45 U/L [facility] alth Bilirubin mass conc 0.9 mg/dL 0 - 1.3 mg/dL [facility] Bilirubin.conjugated mass conc 0.2 mg/dL 0 - 0.4 mg/dL [facility] Interpretation and review of laboratory results Normal [facility] Protein mass conc 6.9 g/dL 6 - 8 g/dL [facility] Lipaseon 09-01-2018 Lipase enzyme act/vol 60 U/L Low 73 - 393 U/L [facility] Otheron 09-01-2018 Extra Tube Hold for add-ons. [facility] Comment on above: Auto resulted. Interpretation and review of laboratory results Abnormal [facility] URINALYSISon 09-01-2018 Bacteria Auto Ql (U) None Seen None Se en /hpf [facility] Bilirubin Ql (U) Negative Negative [facility] Clarity Refractometry automated Nom (U) Clear Clear [facility] Color Nom (U) Yellow Colorless, Yellow [facility] Epithelial cells.squamous Auto #/area (Urine sed) <1 [facility] Glucose Automated test strip mass conc (U) Negative Negative mg/dL [facility] Hemoglobin Automated test strip Ql (U) Negative Negative [facility] Interpretation and review of laboratory results Abnormal [facility] Ketones mass conc (U) >=80 Abnormal Negati ve mg/dL [facility] Leukocyte esterase Automated test strip Ql (U) Negative Negative [facility] Mucus Auto #/area (Urine sed) Rare None Seen, Rare /lpf [facility] Nitrite Automated test strip Ql (U) Negative Negative [facility] pH (U) 5.0 [pH] [facility] Protein mass conc (U) 30 Abnormal Negati ve mg/dL [facility] Comment on above: False positive resul ts may occur in urines with large amounts of hemoglobin, pH greater than 8.0, contrast medium, or disinfectants including ammonium compounds. RBC Auto #/area (Urine sed) <1 [facility] Specific gravity Relative Density (U) 1.021 [facility] Urobilinogen mass conc (U) <2.0 <2.0 mg/dL [facility] WBC Auto #/area (Urine sed) 4 [facility] Microscopic examinat ion is performed on all urinalysis samples and only positive findings are reported. The test for blood on the chemical analytic portion of urinalysis may also be positive due to hemoglobinuria and myoglobinuria and if red blood cells are present they are quantified by microscopic examination. [facility] Urine Pregnancyon 09-01-2018 HCG ( test) Ql (U) Negative Negative [facility] Interpretation and review of laboratory results Normal [facility] ED Triage Noteon 08-31-2018 ED Triage Note HNO ID: [id number] Author: Lelia Caro (Pa) Service: ? Author Type: Physician Sessions Clerk Type: ED Triage Notes Filed: 08/31/2018 9:58 [...] Physician PATRICK BUENO PETER J Accession Number [id number] CPT4 Codes 68041 (US Pelvis TA/TV), 24504 (US Transvaginal) Reason For Exam Right lower [...] Transcribed Date and Time: 08/22/2018 10:57 Normal [facility] Comp Metabolic Panelon 08-22 Calcium mass conc 9.3 mg/dL Normal 8.4-10.4 [facility] Comment on above: Performed By: #### H EMDF, CMP3, LIPA4 #### [facility] [address] [place] [address] ALP enzyme act/vol 58 U/L Normal 38-126 [facility] Comment on above: Performed By: #### H EMDF, CMP3, LIPA4 #### [facility] [address] [place] [address] ALT enzyme act/vol 25 U/L Normal 13-69 [facility] Comment on above: Performed By: #### H EMDF, CMP3, LIPA4 #### [facility] [address] [place] [address] Anion gap molar conc 8 Normal [facility] Comment on above: Performed By: #### H EMDF, CMP3, LIPA4 #### [facility] [address] [place] [address] AST enzyme act/vol 12 U/L Low 15-46 [facility] Comment on above: Performed By: #### H EMDF, CMP3, LIPA4 #### [facility] [address] [place] [address] Bilirubin mass conc 0.6 mg/dL Normal 0.2-1.3 [facility] Comment on above: Performed By: #### H EMDF, CMP3, LIPA4 #### [facility] [address] [place] [address] CO2 molar conc 26 mmol/L Normal 22-30 [facility] Comment on above: Performed By: #### H EMDF, CMP3, LIPA4 #### [facility] [address] [place] [address] Creatinine mass conc 1.10 mg/dL Normal 0.52-1.25 [facility] Comment on above: Performed By: #### H EMDF, CMP3, LIPA4 #### [facility] [address] [place] [address] GFR/1.73 sq M predicted among blacks MDRD vol rate/area (S/P/Bld) mL/min/{1.73_m2} Normal >60 [facility] Comment on above: Performed By: #### H EMDF, CMP3, LIPA4 #### [facility] [place] [facility] [address] [place] [address] GFR/1.73 sq M predicted among non-blacks MDRD vol rate/area (S/P/Bld) 59.0 mL/min/{1.73_m2} Normal >60 [facility] Comment on above: Result Comment: Sour ce- MDRD equation with creatinine calibration to IDMS(NKDEP) eGFR not recommended for drug dose adjustment Performed By: #### H EMDF, CMP3, LIPA4 #### [facility] [place] [facility] [address] [place] [address] Glucose mass conc 89 mg/dL Normal 70-100 [facility] Comment on above: Performed By: #### H EMDF, CMP3, LIPA4 #### [facility] [place] [facility] [address] [place] [address] Protein mass conc 6.8 g/dL Normal 6.3-8.2 [facility] [employer] Comment on above: Performed By: #### H EMDF, CMP3, LIPA4 #### [facility] [place] [facility] [address] [place] [address] Urea nitrogen mass conc 18 mg/dL Normal 7-20 [facility] Comment on above: Performed By: #### H EMDF, CMP3, LIPA4 #### [facility] [place] [facility] [address] [place] [address] Potassium molar conc 3.9 mmol/L Normal 3.5-5.1 [facility] Comment on above: Performed By: #### H EMDF, CMP3, LIPA4 #### [facility] [employer] [address] [place] [address] Sodium molar conc 137 mmol/L Normal 135-145 [facility] Comment on above: Performed By: #### H EMDF, CMP3, LIPA4 #### [facility] [place] [facility] [address] [place] [address] Albumin mass conc 4.0 g/dL Normal 3.5-5.0 [facility] Comment on above: Performed By: #### H EMDF, CMP3, LIPA4 #### [facility] [address] [place] [address] Chloride molar conc 103 mmol/L Normal 98-107 [facility] Comment on above: Performed By: #### H EMDF, CMP3, LIPA4 #### [facility] [address] [place] [address] HCG,Urine Qualon 08-22-2018 HCG.beta subunit ( test) Ql (U) Negative Normal Negative [facility] Comment on above: Result Comment: Preg fallon is the most common reason for HCG in urine, although choriocarcinoma, hydatidiform mole, and certain nontropho- blastic malignancies also result in detectable urinary HCG levels. Sensitivity = 20mIU/mL. Performed By: #### U AMAC, UAMIC, HCGUR #### [facility] [address] [place] [address] Hemogram w/ Autodiffon 08-22 Abs Baso Cnt 0.1 10*3/uL Normal 0.0-0.2 [facility] Comment on above: Performed By: #### H EMDF, CMP3, LIPA4 #### [facility] [address] [place] [address] Abs Neutrophile Cnt 4.4 10*3/uL Normal 1.8-7.0 [facility] Comment on above: Performed By: #### H EMDF, CMP3, LIPA4 #### [facility] [address] [place] [address] Basophils/100 WBC (Bld) 0.8 % Normal 0.0-2.0 [facility] Comment on above: Performed By: #### H EMDF, CMP3, LIPA4 #### [facility] [address] [place] [address] Eosinophils #/vol (Bld) 0.2 10*3/uL Normal 0.0-0.5 [facility] Comment on above: Performed By: #### H EMDF, CMP3, LIPA4 #### [facility] [address] [place] [address] Eosinophils/100 WBC (Bld) 2.3 % Normal 1.0-6.0 [facility] Comment on above: Performed By: #### H EMDF, CMP3, LIPA4 #### [facility] [address] [place] [address] Erythrocyte distribution width Ratio (RBC) 13.1 % Normal 11.5-14.5 [facility] Comment on above: Performed By: #### H EMDF, CMP3, LIPA4 #### [facility] [address] [place] [address] Granulocytes/100 WBC (Bld) 50.3 % Normal 40.0-80.0 [facility] Comment on above: Performed By: #### H EMDF, CMP3, LIPA4 #### [facility] [address] [place] [address] Hematocrit Volume Fraction (Bld) 42.0 % Normal 35.0-47.0 [facility] Comment on above: Performed By: #### H EMDF, CMP3, LIPA4 #### [facility] [address] [place] [address] Hemoglobin mass conc (Bld) 14.4 g/dL Normal 11.7-16.0 [facility] Comment on above: Performed By: #### H EMDF, CMP3, LIPA4 #### [facility] [address] [place] [address] Lymphocytes #/vol (Bld) 3.3 10*3/uL Normal 1.0-4.3 [facility] Comment on above: Performed By: #### H EMDF, CMP3, LIPA4 #### [facility] [address] [place] [address] Lymphocytes/100 WBC (Bld) 37.7 % Normal 20.0-40.0 [facility] Comment on above: Performed By: #### H EMDF, CMP3, LIPA4 #### [facility] [address] [place] [address] MCH Entitic mass (RBC) 31.0 pg Normal 26.0-34.0 [facility] Comment on above: Performed By: #### H EMDF, CMP3, LIPA4 #### [facility] [address] [place] [address] MCHC mass conc (RBC) 34.3 % Normal 32.0-36.0 [facility] Comment on above: Performed By: #### H EMDF, CMP3, LIPA4 #### [facility] [address] [place] [address] MCV Entitic volume (RBC) 90.3 fL Normal 79.0-98.0 [facility] Comment on above: Performed By: #### H EMDF, CMP3, LIPA4 #### [facility] [address] [place] [address] Monocytes #/vol (Bld) 0.8 10*3/uL Normal 0.0-0.8 [facility] Comment on above: Performed By: #### H EMDF, CMP3, LIPA4 #### [facility] [address] [place] [address] Monocytes/100 WBC (Bld) 8.9 % Normal 2.0-10.0 [facility] Comment on above: Performed By: #### H EMDF, CMP3, LIPA4 #### [facility] [address] [place] [address] Platelet mean volume Entitic volume (Bld) 8.7 fL Normal 7.4-10.4 [facility] Comment on above: Performed By: #### H EMDF, CMP3, LIPA4 #### [facility] [address] [place] [address] Platelets #/vol (Bld) 294 10*3/uL Normal 140-440 [facility] Comment on above: Performed By: #### H EMDF, CMP3, LIPA4 #### [facility] [address] [place] [address] RBC #/vol (Bld) 4.65 10*6/uL Normal 3.80-5.20 [facility] Comment on above: Performed By: #### H EMDF, CMP3, LIPA4 #### [facility] [address] [place] [address] WBC #/vol (Bld) 8.7 10*3/uL Normal 3.6-10.7 [facility] Comment on above: Performed By: #### H EMDF, CMP3, LIPA4 #### [facility] [address] [place] [address] Lipaseon 08-22-2018 Lipase enzyme act/vol 114 U/L Normal 23-300 [facility] Comment on above: Performed By: #### H EMDF, CMP3, LIPA4 #### [facility] [address] [place] [address] Urinalysis,Macroon 9 Appearance Nom (U) TURBID Normal Clear [facility] Comment on above: Performed By: #### U AMAC, UAMIC, HCGUR #### [facility] [address] [place] [address] Bilirubin,Ur Negative Normal Negative [facility] Comment on above: Performed By: #### U AMAC, UAMIC, HCGUR #### [facility] [address] [place] [address] Color Nom (U) YELLOW Normal Lt. Yellow [facility] Comment on above: Performed By: #### U AMAC, UAMIC, HCGUR #### [facility] [address] [place] [address] Glucose Ql (U) Negative Normal Negative [facility] Comment on above: Performed By: #### U AMAC, UAMIC, HCGUR #### [facility] [address] [place] [address] Ketone,Urine Negative Normal Negative [facility] Comment on above: Performed By: #### U AMAC, UAMIC, HCGUR #### [facility] [address] [place] [address] Nitrite Ql (U) Negative Normal Negative [facility] Comment on above: Performed By: #### U AMAC, UAMIC, HCGUR #### [facility] [address] [place] [address] Occult Blood,Ur Negative Normal Negative [facility] Comment on above: Performed By: #### U AMAC, UAMIC, HCGUR #### [facility] [address] [place] [address] pH (U) 7.5 Normal 5.0-8.0 [facility] Comment on above: Performed By: #### U AMAC, UAMIC, HCGUR #### [facility] [address] [place] [address] Protein mass conc (U) Negative Normal Negative [facility] Comment on above: Performed By: #### U AMAC, UAMIC, HCGUR #### [facility] [address] [place] [address] Specific Freedom,Urine 1.021 Normal 1.005-1.030 [facility] Comment on above: Performed By: #### U AMAC, UAMIC, HCGUR #### [facility] [address] [place] [address] Urobilinogen Qn (U) 0.2 mg/dL Normal 0-1 [facility] Comment on above: Performed By: #### U AMAC, UAMIC, HCGUR #### [facility] [address] [place] [address] WBC #/vol (Bld) Negative Normal Negative [facility] Comment on above: Performed By: #### U AMAC, UAMIC, HCGUR #### [facility] [address] [place] [address] Urinalysis,Microscopicon Bacteria LM.HPF #/area (Urine sed) Negative Normal Negative [facility] Comment on above: Performed By: #### U AMAC, UAMIC, HCGUR #### [facility] [address] [place] [address] Cast, Hyaline 2 /[LPF] Normal 0-1 [facility] Comment on above: Performed By: #### U AMAC, UAMIC, HCGUR #### [facility] [address] [place] [address] Epithelial cells LM.HPF #/area (Urine sed) TRACE Normal 3-5 [facility] Comment on above: Performed By: #### U AMAC, UAMIC, HCGUR #### [facility] [address] [place] [address] RBC,Urine 2 /[HPF] Normal 0-2 [facility] Comment on above: Performed By: #### U AMAC, UAMIC, HCGUR #### [facility] [address] [place] [address] WBC,Urine 1 /[HPF] Normal 0-5 [facility] Comment on above: Performed By: #### U AMAC, UAMIC, HCGUR #### [facility] [address] [place] [address] ANES Negin 08-08-2018 ANES POST HNO ID: [id number] Author: Von Crenshaw MD Service: Anesthesiology Author [...] 08, 2018 TIME: 12:32 PM PAGER/CONTACT #: [facility] ANES PREOPon 08-08-2018 ANES PREOP HNO ID: [id number] Author: Von Crenshaw MD Service: Anesthesiology Author [...] - LAPAROSCOPIC CHOLEYCYSTECTOMY 09/14/2009 - LEEP PROCEDURE ([employer] DEPT)_*[place] 09/09/2015 - SVT ABLATION 05/2015 procedure [...] August 08, 2018 TIME: 11:08 AM CSN: [id number] [facility] PT EDon 08-08-2018 PT ED HNO ID: [id number] Author: Maury RecinosRn) MICHAEL Zelaya Service: Nursing [...] None Electronically Signed By: Maury Zelaya RN [facility] PT ED HNO ID: [id number] Author: Laura (Rn) MICHAEL Aguillon Service: ? [...] Signed By: Laura Aguillon RN In Department: [facility] ENDOSCOPY [facility] SURGICAL PATHOLOGYon 019 SURGICAL PATHOLOGY Specimen originated from [facility] Specimen #: [id number] Submitting Physician: CHEYANNE TOURE MD FINAL DIAGNOSIS [...] in one cassette. Gross examination performed at [facility], [address] [place] [address] 08/08/2018 5:18:47 PM Date of Report: 08/09/2018 Date of Procedure: 08/08/2018 Date of Receipt: 08/08/2018 Submitted by: CHEYANNE TOURE MD Location: [place] Diagnostic interpretation performed at [facility], [address] [place] [address]. [facility] Comment on above: Performed By: #### P ATHS #### [facility] [place] [address] [phone] HOSPon 07-25-2018 HOSP Patient:Que Escobar MRN: Height:5' [...] for the following basenames: K,HCT Progress Notes ([facility]): Estephania Mg LPN 08/07/2018 [...] have testing done etc. Estephania Roman RN APRN.HERB DOCTOR 08/08/2018 9:04 AM Signed Order placed for stool for ova and parasites. She can get the appropriate container from the lab in the [facility]. It's usually several samples that are needed. Lab can explain that to her. The EGD today will check for Hpylori. Anastasia Roman RN APRN.HERB DOCTOR Estephania Mg LPN 08/08/2018 9:21 AM Signed Left a detailed message for patient with information listed below. Estephania Mg LPN Progress Notes ([facility]): Rhonda Gerber LPN 07/27/2018 11:54 AM [...] 07/27/2018 3:23 PM Signed Pt notified via Bant[employer]. [facility] Office Visit (AGCARDPHRA) QUE ESCOBAR ([id number]) 1990 F Date Time Provider Department 07/12/18 2:30 PM RENETTA SOWGCASADIQ Duran During your visit today, we recorded the following information about you: Pulse Blood pressure Weight Height 85/minute 90/70 67 kg 1.676 m Heather Azar CMA 07/12/2018 2:42 PM Signed No cardiac complaints today. Heather Azar [facility] Renetta Sow MD 07/12/2018 3:08 PM Signed Subjective HPI Prior history, edited as needed: 28-year-old female who was referred by Jerry Morillo CNP ([place], [place]) for consideration of catheter ablation for [...] rhythm at 83 beats a minute with NV of 130, QRS of 80, QTC of [...] shows normal sinus rhythm at 74 bpm, NV 120, QRS 70, QTC 420, normal axis. [...] No pallor. Psychiatric: Affect normal. Referring Provider: RENETAT SOW [[id number]] Allergies As of Date: 07/12/2018 Noted Allergy [...] W INTERP (MED OFFICE) [ECG06] Order #: [id number] Prescriptions as of 07/12/2018 Sig: RANITIDINE 150 [...] testing [Z01.89]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 Davide Chao Work Phone: 9(980)[phone] [place] [address] 01-16-2023 16:48-0400 Body weight 85.[address] Davide Chao Work Phone: 0(562)[phone] [place] [address] 01-16-2023 15:24-0400 Body mass index (BMI) [Ratio] 30.7 kg/m2 Dr. Davide Chao Work Phone: 7(349)[phone] [place] [address] 01-16-2023 15:24-0400 Body weight 86.[address] Davide Chao Work Phone: [facility] 12-21-2022 11:19-0400 Body mass index (BMI) [Ratio] 29.4 kg/m2 Dr. Davide Chao Work Phone: [facility] 12-21-2022 11:19-0400 Body weight 82.[address] Davide Chao Work Phone: [facility] 12-21-2022 11:19-0400 Diastolic blood pressure 70 mm[Hg] Dr. Davide Chao Work Phone: [facility] 12-21-2022 11:19-0400 Systolic blood pressure 110 mm[Hg] Dr. Davide Chao Work Phone: [facility] 11-25-2022 09:26-0400 Body mass index (BMI) [Ratio] 28.3 kg/m2 Dr. Davide Chao Work Phone: [facility] 11-25-2022 09:26-0400 Body weight 79.[address] Davide Chao Work Phone: [facility] 11-25-2022 09:26-0400 Diastolic blood pressure 65 mm[Hg] Dr. Davide Chao Work Phone: [facility] 11-25-2022 09:26-0400 Systolic blood pressure 98 mm[Hg] Dr. Davide Chao Work Phone: [facility] 11-11-2022 00:19-0400 Body height 167.4 cm Andry Rueda MD Work Phone: [facility] 11-11-2022 00:19-0400 Body mass index (BMI) [Ratio] 27.83 kg/m2 Andry Rueda MD Work Phone: [facility] 11-11-2022 00:19-0400 Body weight 78 kg Andry Rueda MD Work Phone: [facility] 10-28-2022 09:23-0400 Body height 167.[address] Davide Chao Work Phone: 9(717)812-760252 [place] [address] 10-28-2022 09:16-0400 Body mass index (BMI) [Ratio] 27.4 kg/m2 Dr. Davide Chao Work Phone: 8(267)801-266960 [address] 10-28-2022 09:16-0400 Body weight 77.[address] Davide Chao Work Phone: 8(607)733-552660 [address] 10-28-2022 09:16-0400 Diastolic blood pressure 73 mm[Hg] Dr. Davide Chao Work Phone: 0(784)681-545160 [address] 10-28-2022 09:16-0400 Systolic blood pressure 106 mm[Hg] Dr. Davide Chao Work Phone: 4(791)804-473278 [place] [address] 09-28-2022 08:06-0400 Body height 167.[address] Davide Chao Work Phone: 8(055)253-952278 [place] [address] 09-28-2022 08:06-0400 Body mass index (BMI) [Ratio] 26.8 kg/m2 Dr. Davide Chao Work Phone: 9(287)817-891378 [place] [address] 09-28-2022 08:06-0400 Body weight 75.[address] Davide Chao Work Phone: 7(505)896-287978 [place] [address] 09-28-2022 08:06-0400 Diastolic blood pressure 71 mm[Hg] Dr. Davide Chao Work Phone: 8(401)429-587360 [address] 09-28-2022 08:06-0400 Systolic blood pressure 104 mm[Hg] Dr. Davide Chao Work Phone: 5(795)827-841378 [place] [address] 09-11-2022 23:47-0400 Diastolic blood pressure 62 mm[Hg] Davide Chao Other Phone: [facility] 09-11-2022 23:47-0400 Heart rate 85 /min Davide Chao Other Phone: [facility] 09-11-2022 23:47-0400 Respiratory rate 15 /min Davide Chao Other Phone: [facility] 09-11-2022 23:47-0400 SaO2% (BldA) [Mass fraction] 100 % Davide Chao Other Phone: [facility] 09-11-2022 23:47-0400 Systolic blood pressure 95 mm[Hg] Davide Chao Other Phone: [facility] 09-11-2022 22:56-0400 Body height 167.6 cm Davide Chao Other Phone: [facility] 09-11-2022 22:56-0400 Body weight 72.7 kg Davide Chao Other Phone: [facility] 08-17-2022 13:25-0400 Body height 167.[address] Davide Chao Work Phone: [facility] 08-17-2022 13:24-0400 Body mass index (BMI) [Ratio] 26.4 kg/m2 Dr. Davide Chao Work Phone: [facility] 08-17-2022 13:24-0400 Body weight 74.[address] Davide Chao Work Phone: [facility] 08-17-2022 13:24-0400 Diastolic blood pressure 70 mm[Hg] Dr. Davide Chao Work Phone: [facility] 08-17-2022 13:24-0400 Systolic blood pressure 105 mm[Hg] Dr. Davide Chao Work Phone: [facility] 07-29-2022 15:16-0500 Body height 167.[address] Davide Chao Work Phone: [facility] 07-29-2022 15:16-0500 Body mass index (BMI) [Ratio] 26.9 kg/m2 Dr. Davide Chao Work Phone: [facility] 07-29-2022 15:16-0500 Body weight 75.[address] Davide Chao Work Phone: [facility] 07-29-2022 15:16-0500 Diastolic blood pressure 72 mm[Hg] Dr. Davide Chao Work Phone: [facility] 07-29-2022 15:16-0500 Systolic blood pressure 104 mm[Hg] Dr. Davide Chao Work Phone: [facility] 07-13-2022 23:15-0500 Diastolic blood pressure 71 mm[Hg] Nery Esparza MD Work Phone: [employer] 07-13-2022 23:15-0500 SaO2% (BldA) [Mass fraction] 100 % Nery Esparza MD Work Phone: [employer] 07-13-2022 23:15-0500 Systolic blood pressure 105 mm[Hg] Nery Esparza MD Work Phone: [employer] 07-13-2022 22:57-0500 Body height 167.6 cm Nery Esparza MD Work Phone: [employer] 07-13-2022 22:57-0500 Body mass index (BMI) [Ratio] 27.07 kg/m2 Nery Esparza MD Work Phone: [employer] 07-13-2022 22:57-0500 Body temperature 98.2 [degF] Nery Esparza MD Work Phone: [employer] 07-13-2022 22:57-0500 Body weight 76.07 kg Nery Esparza MD Work Phone: [employer] 07-13-2022 22:57-0500 Heart rate 96 /min Nery Esparza MD Work Phone: [employer] 07-13-2022 22:57-0500 Respiratory rate 18 /min Nery Esparza MD Work Phone: [employer] 11-21-2021 09:11-0400 Body mass index (BMI) [Ratio] 27.12 kg/m2 Mireya Dewitt CNP Work Phone: [facility] 11-21-2021 09:11-0400 Body temperature 98.4 [degF] Mireya Dewitt CNP Work Phone: [facility] 11-21-2021 09:11-0400 Body weight 76.2 kg Mireya Dewitt CNP Work Phone: [facility] 11-21-2021 09:11-0400 Diastolic blood pressure 70 mm[Hg] Mireya Dewitt CNP Work Phone: [facility] 11-21-2021 09:11-0400 Heart rate 86 /min Mireya Dewitt CNP Work Phone: [facility] 11-21-2021 09:11-0400 Respiratory rate 14 /min Mireya Dewitt CNP Work Phone: [facility] 11-21-2021 09:11-0400 SaO2% (BldA) [Mass fraction] 97 % Mireya Dewitt CNP Work Phone: [facility] 11-21-2021 09:11-0400 Systolic blood pressure 99 mm[Hg] Mireya Dewitt CNP Work Phone: [facility] 11-16-2021 13:58-0400 Body height 167.64 cm Davide Reny [employer] Work Phone: [employer] Work Phone: 11-16-2021 13:58-0400 Body mass index (BMI) [Ratio] 28.43 kg/m2 Davide Reny [employer] Work Phone: [employer] Work Phone: 11-16-2021 13:58-0400 Body surface area Derived from formula 1.9 m2 Davide Reny [employer] Work Phone: [employer] Work Phone: 11-16-2021 13:58-0400 Body weight 79.9 kg Davide Oglesby [employer] Work Phone: [employer] Work Phone: 11-16-2021 13:58-0400 Diastolic blood pressure 64 mm[Hg] Davide Chao Work Phone: [employer] Work Phone: 11-16-2021 13:58-0400 Systolic blood pressure 110 mm[Hg] Davide Chao Work Phone: [employer] Work Phone: 10-14-2021 15:28-0400 Body temperature 97.88 [degF] Davide Chao Other Phone: [facility] 10-14-2021 15:28-0400 Diastolic blood pressure 71 mm[Hg] Davide Chao Other Phone: [facility] 10-14-2021 15:28-0400 Heart rate 79 /min Davide Chao Other Phone: [facility] 10-14-2021 15:28-0400 Respiratory rate 16 /min Davide Chao Other Phone: [facility] 10-14-2021 15:28-0400 SaO2% (BldA) [Mass fraction] 99 % Davide Chao Other Phone: [facility] 10-14-2021 15:28-0400 Systolic blood pressure 118 mm[Hg] Davide Chao Other Phone: [facility] 10-08-2021 10:24-0400 Body height 167.64 cm Davide Chao Work Phone: [employer] Work Phone: 10-08-2021 10:24-0400 Body mass index (BMI) [Ratio] 31.24 kg/m2 Davide Chao Work Phone: [employer] Work Phone: 10-08-2021 10:24-0400 Body surface area Derived from formula 1.97 m2 Davide Chao Work Phone: [place] [address] [place] Work Phone: 10-08-2021 10:24-0400 Body weight 87.8 kg Davide D [employer] Work Phone: [place] [address] [place] Work Phone: 10-08-2021 10:24-0400 Diastolic blood pressure 64 mm[Hg] Davide D [employer] Work Phone: [place] [address] [employer] Work Phone: 10-08-2021 10:24-0400 Systolic blood pressure 104 mm[Hg] Davide Reny [employer] Work Phone: [place] [address] [employer] Work Phone: 10-01-2021 11:25-0400 Body height 167.64 cm Davide Reny [employer] Work Phone: [place] [address] [employer] Work Phone: 10-01-2021 11:25-0400 Body mass index (BMI) [Ratio] 31.06 kg/m2 Davide Reny [employer] Work Phone: [place] [address] [employer] Work Phone: 10-01-2021 11:25-0400 Body surface area Derived from formula 1.97 m2 Davide Reny [employer] Work Phone: [place] [address] [employer] Work Phone: 10-01-2021 11:25-0400 Body weight 87.3 kg Davide Reny [employer] Work Phone: [place] [address] [employer] Work Phone: 10-01-2021 11:25-0400 Diastolic blood pressure 62 mm[Hg] Davide Oglesby [employer] Work Phone: [place] [address] [employer] Work Phone: 10-01-2021 11:25-0400 Systolic blood pressure 102 mm[Hg] Davide [employer] Work Phone: [employer] [place] [address] [place] Work Phone: 09-24-2021 11:14-0400 Body height 167.64 cm Davide Esp[employer] Work Phone: [employer] [place] [address] [place] Work Phone: 09-24-2021 11:14-0400 Body mass index (BMI) [Ratio] 30.53 kg/m2 Davide Oglesby [employer] Work Phone: [employer] [place] [address] [employer] Work Phone: 09-24-2021 11:14-0400 Body surface area Derived from formula 1.95 m2 Davide Esp[employer] Work Phone: [id number] [address] [employer] Work Phone: 09-24-2021 11:14-0400 Body weight 85.79 kg Davide [employer] Work Phone: [id number] [address] [employer] Work Phone: 09-24-2021 11:14-0400 Diastolic blood pressure 80 mm[Hg] Davide Esp[employer] Work Phone: [id number] [address] [place] Work Phone: 09-24-2021 11:14-0400 Systolic blood pressure 110 mm[Hg] Davide Esp[employer] Work Phone: [place] [address] [place] Work Phone: 09-17-2021 11:35-0400 Body height 167.64 cm Davide Esp[employer] Work Phone: [id number] [address] [place] Work Phone: 09-17-2021 11:35-0400 Body mass index (BMI) [Ratio] 30.21 kg/m2 Davide Espitia[employer] Work Phone: [facility] [address] [place] Work Phone: 09-17-2021 11:35-0400 Body surface area Derived from formula 1.94 m2 Davide Oglesby [employer] Work Phone: [employer] [place] [address] [place] Work Phone: 09-17-2021 11:35-0400 Body weight 84.9 kg Davide D [employer] Work Phone: [employer] [place] [address] [place] Work Phone: 09-17-2021 11:35-0400 Diastolic blood pressure 66 mm[Hg] Davide D [employer] Work Phone: [employer] [place] [address] [place] Work Phone: 09-17-2021 11:35-0400 Systolic blood pressure 108 mm[Hg] Davide Oglesby [employer] Work Phone: [employer] [facility] [place] Work Phone: 09-10-2021 10:59-0400 Body height 167.64 cm Davide Oglesby [employer] Work Phone: [employer] [facility] [place] Work Phone: 09-10-2021 10:59-0400 Body mass index (BMI) [Ratio] 30.1 kg/m2 Davide Oglesby [employer] Work Phone: [employer] [place] [address] [place] Work Phone: 09-10-2021 10:59-0400 Body surface area Derived from formula 1.94 m2 Davide Oglesby [employer] Work Phone: [employer] [facility] [place] Work Phone: 09-10-2021 10:59-0400 Body weight 84.6 kg Davide Reny [employer] Work Phone: [employer] [place] [address] [place] Work Phone: 09-10-2021 10:59-0400 Diastolic blood pressure 62 mm[Hg] Davide Oglesby [employer] Work Phone: [employer] [place] [address] [place] Work Phone: 09-10-2021 10:59-0400 Systolic blood pressure 110 mm[Hg] Davide Oglesby [employer] Work Phone: [employer] Work Phone: 08-27-2021 11:23-0400 Body height 167.64 cm Davide Oglesby [employer] Work Phone: [employer] Work Phone: 08-27-2021 11:23-0400 Body mass index (BMI) [Ratio] 30.04 kg/m2 Davide Oglesby [employer] Work Phone: [employer] Work Phone: 08-27-2021 11:23-0400 Body surface area Derived from formula 1.94 m2 Davide Oglesby [employer] Work Phone: [employer] Work Phone: 08-27-2021 11:23-0400 Body weight 84.43 kg Davide Oglesby [employer] Work Phone: [employer] Work Phone: 08-27-2021 11:23-0400 Diastolic blood pressure 78 mm[Hg] Davide Oglesby [employer] Phone: [employer] Work Phone: 08-27-2021 11:23-0400 Systolic blood pressure 118 mm[Hg] Davide Esp[employer]ia[employer]Mic Work Phone: [employer] Work Phone: 08-13-2021 08:58-0500 Body height 167.64 cm Davide Oglesby [employer] Work Phone: [employer] Work Phone: 08-13-2021 08:58-0500 Body mass index (BMI) [Ratio] 29.39 kg/m2 Davide Oglesby [employer] Work Phone: [employer] Work Phone: 08-13-2021 08:58-0500 Body surface area Derived from formula 1.92 m2 Davide D [employer] Work Phone: [place] [address] [place] Work Phone: 08-13-2021 08:58-0500 Body weight 82.6 kg Davide D [employer] Work Phone: [place] [address] [place] Work Phone: 08-13-2021 08:58-0500 Diastolic blood pressure 60 mm[Hg] Davide D [employer] Work Phone: [place] [address] [place] Work Phone: 08-13-2021 08:58-0500 Systolic blood pressure 112 mm[Hg] Davide D [employer] Work Phone: [place] [address] [place] Work Phone: 07-30-2021 11:06-0500 Body height 167.64 cm Davide D [employer] Work Phone: [place] [address] [place] Work Phone: 07-30-2021 11:06-0500 Body mass index (BMI) [Ratio] 28.93 kg/m2 Davide D [employer] Work Phone: [place] [address] [place] Work Phone: 07-30-2021 11:06-0500 Body surface area Derived from formula 1.91 m2 Davide D [employer] Work Phone: [place] [address] [place] Work Phone: 07-30-2021 11:06-0500 Body weight 81.3 kg Davide D [employer] Work Phone: [place] [address] [place] Work Phone: 07-30-2021 11:06-0500 Diastolic blood pressure 68 mm[Hg] Davide D [employer] Work Phone: [place] [address] [place] Work Phone: 07-30-2021 11:06-0500 Systolic blood pressure 114 mm[Hg] Davide Chao Work Phone: [place] [address] [place] Work Phone: 07-12-2021 14:39-0500 Body height 167.64 cm Davide Chao Work Phone: [place] [address] [place] Work Phone: 07-12-2021 14:39-0500 Body mass index (BMI) [Ratio] 28.75 kg/m2 Davide Chao Work Phone: [place] [address] [place] Work Phone: 07-12-2021 14:39-0500 Body surface area Derived from formula 1.9 m2 Davide Chao Work Phone: [place] [address] [place] Work Phone: 07-12-2021 14:39-0500 Body temperature 97.7 [degF] Davide Chao Work Phone: [place] [address] [place] Work Phone: 07-12-2021 14:39-0500 Body weight 80.8 kg Davide Chao Work Phone: [place] [address] [place] Work Phone: 07-12-2021 14:39-0500 Diastolic blood pressure 64 mm[Hg] Davide Chao Work Phone: [place] [address] [place] Work Phone: 07-12-2021 14:39-0500 Systolic blood pressure 116 mm[Hg] Davide Chao Work Phone: [place] [address] [place] Work Phone: 06-23-2021 20:00-0500 Body height 167.6 cm Gallito Couch MD Work Phone: [facility] 06-23-2021 20:00-0500 Body mass index (BMI) [Ratio] 27.95 kg/m2 Gallito Couch MD [facility]: [facility] 06-23-2021 20:00-0500 Body temperature 98.4 [degF] Gallito Couch MD Work Phone: [facility] 06-23-2021 20:00-0500 Body weight 78.55 kg Gallito Couch MD Work Phone: [facility] 06-23-2021 20:00-0500 Diastolic blood pressure 66 mm[Hg] Gallito Couch MD Work Phone: [facility] 06-23-2021 20:00-0500 Heart rate 81 /min Gallito Couch MD Work Phone: [facility] 06-23-2021 20:00-0500 Respiratory rate 18 /min Gallito Couch MD Work Phone: [facility] 06-23-2021 20:00-0500 SaO2% (BldA) [Mass fraction] 98 % Gallito Couch MD Work Phone: [facility] 06-23-2021 20:00-0500 Systolic blood pressure 101 mm[Hg] Gallito Couch MD Work Phone: [facility] 05-17-2021 13:06-0500 Body height 167.6 cm Yuri Palencia MD Work Phone: [facility] 05-17-2021 13:06-0500 Body mass index (BMI) [Ratio] 26.26 kg/m2 Yuri Palencia MD Work Phone: [facility] 05-17-2021 13:06-0500 Body weight 73.8 kg Yuri Palencia MD Work Phone: [facility] 05-17-2021 13:06-0500 Diastolic blood pressure 65 mm[Hg] Yuri Palencia MD Work Phone: [facility] 05-17-2021 13:06-0500 Heart rate 80 /min Yuri Palencia MD Work Phone: [facility] 05-17-2021 13:06-0500 SaO2% (BldA) [Mass fraction] 95 % Yuri Palencia MD Work Phone: [facility] 05-17-2021 13:06-0500 Systolic blood pressure 97 mm[Hg] Yuri Palencia MD Work Phone: [facility] 03-17-2021 02:05-0400 Diastolic blood pressure 66 mm[Hg] Davide Chao Other Phone: [facility] 03-17-2021 02:05-0400 Heart rate 59 /min Davide Chao Other Phone: [facility] 03-17-2021 02:05-0400 Respiratory rate 16 /min Davide Chao Other Phone: [facility] 03-17-2021 02:05-0400 SaO2% (BldA) [Mass fraction] 96 % Davide Chao Other Phone: [facility] 03-17-2021 02:05-0400 Systolic blood pressure 102 mm[Hg] Davide Chao Other Phone: [facility] 03-01-2021 06:50-0400 Diastolic blood pressure 63 mm[Hg] Davide Chao Other Phone: [facility] 03-01-2021 06:50-0400 Heart rate 60 /min Davide Chao Other Phone: [facility] 03-01-2021 06:50-0400 Respiratory rate 18 /min Davide Chao Other Phone: [facility] 03-01-2021 06:50-0400 SaO2% (BldA) [Mass fraction] 99 % Davide Chao Other Phone: [facility] 03-01-2021 06:50-0400 Systolic blood pressure 98 mm[Hg] Davide Chao Other Phone: [facility] 12-15-2020 02:09-0400 Diastolic blood pressure 72 mm[Hg] Davide Chao Other Phone: [facility] 12-15-2020 02:09-0400 Heart rate 74 /min Davide Chao Other Phone: [facility] 12-15-2020 02:09-0400 Respiratory rate 20 /min Davide Chao Other Phone: [facility] 12-15-2020 02:09-0400 SaO2% (BldA) [Mass fraction] 99 % Davide Chao Other Phone: [facility] 12-15-2020 02:09-0400 Systolic blood pressure 107 mm[Hg] Davide Chao Other Phone: [facility] 12-08-2020 03:30-0400 Diastolic blood pressure 68 mm[Hg] Davide Chao Other Phone: [facility] 12-08-2020 03:30-0400 Heart rate 61 /min Davide Chao Other Phone: [facility] 12-08-2020 03:30-0400 SaO2% (BldA) [Mass fraction] 98 % Davide Chao Other Phone: [facility] 12-08-2020 03:30-0400 Systolic blood pressure 103 mm[Hg] Davide Chao Other Phone: [facility] 12-08-2020 02:21-0400 Respiratory rate 16 /min Davide Chao Other Phone: [facility] 09-27-2020 12:09-0400 Body temperature 98.4 [degF] Barbara Sandoval MD Work Phone: [facility] 09-27-2020 12:09-0400 Diastolic blood pressure 76 mm[Hg] Barbara Sandoval MD Work Phone: [facility] 09-27-2020 12:09-0400 Heart rate 102 /min Barbara Sandoval MD Work Phone: [facility] 09-27-2020 12:09-0400 Respiratory rate 18 /min Barbara Sandoval MD Work Phone: [facility] 09-27-2020 12:09-0400 SaO2% (BldA) [Mass fraction] 100 % Barbara Sandoval MD Work Phone: [facility] 09-27-2020 12:09-0400 Systolic blood pressure 114 mm[Hg] Barbara Sandoval MD Work Phone: [facility] 09-26-2020 21:00-0400 Diastolic blood pressure 59 mm[Hg] Davide Chao Other Phone: [facility] 09-26-2020 21:00-0400 Heart rate 66 /min Davide Chao Other Phone: [facility] 09-26-2020 21:00-0400 Respiratory rate 18 /min Davide Chao Other Phone: [facility] 09-26-2020 21:00-0400 SaO2% (BldA) [Mass fraction] 99 % Davide Willieagusto Other Phone: [facility] 09-26-2020 21:00-0400 Systolic blood pressure 95 mm[Hg] Davide Chao Other Phone: [facility] 09-26-2020 19:57-0400 Diastolic blood pressure 85 mm[Hg] Generic [facility] Work Phone: [facility] 09-26-2020 19:57-0400 Heart rate 75 /min Generic [facility] Work Phone: [facility] 09-26-2020 19:57-0400 Respiratory rate 16 /min Generic [facility] Work Phone: [facility] 09-26-2020 19:57-0400 Systolic blood pressure 121 mm[Hg] [facility] Work Phone: [facility] 09-26-2020 16:40-0400 Body height 167.6 cm Davide Chao Other Phone: [facility] 09-26-2020 16:40-0400 Body temperature 98.6 [degF] Davide Chao Other Phone: [facility] 09-26-2020 16:40-0400 Body weight 72.7 kg Davide Chao Other Phone: [facility] 09-01-2018 22:18-0400 BP Diastolic 79 mm[Hg] [facility] 09-01-2018 22:18-0400 BP Systolic 108 mm[Hg] [facility] 09-01-2018 22:18-0400 Pulse (Heart Rate) 73 /min [facility] 09-01-2018 22:18-0400 Pulse Oximetry 100 % [facility] 09-01-2018 22:18-0400 Respiratory Rate 16 /min [facility] 09-01-2018 16:13-0400 BMI (Body Mass Index) 21.95 kg/m2 [facility] 09-01-2018 16:13-0400 Body Temperature 98.01 [degF] [facility] 09-01-2018 16:13-[address] [facility] 09-01-2018 16:13-[address] [facility] Encounters Encounter Date Encounter Type Care Provider Facility Start: 01-03-2025 End: 01-03-[address] Davide Chao MD Work Phone: -[facility] Start: 01-03-2025 End: 01-03-2025 Patient encounter procedure Jeanette Roach CNM -[facility] Work Phone: Start: 12-31-2024 ambulatory Davide Mason y:[facility] Start: 07-29-[address] Davide calloway MD Work Phone: -Cardiovascular Services Work Phone: Start: 12-24-2024 ambulatory DAVIDE CHAO [facility] Start: 12-20-2024 ambulatory Melissa Brasher Fa cility:[facility] Start: 12-20-2024 Non-patient / Non-visit [facility]. César Brasher [facility] Start: 12-20-2024 End: 12-20-[address] Davide Chao MD Work Phone: -Radiology [facility] Start: 12-20-2024 End: 12-20-[address] Melissa Brasher DO [facility] Work Phone: Start: 12-20-2024 End: 12-20-2024 ambulatory Melissa Brasher Facility:[facility] Start: 12-06-2024 End: 12-06-2024 Emergency department patient visit TRISTIN DO [facility] Start: 12-03-2024 Non-patient / Non-visit Dr. Bre hutton MD -[facility] Work Phone: Start: 11-23-2024 End: 11-23-2024 Emergency department patient visit Dr. Davide Chao MD Work Phone: -Emergency Department Work Phone: Start: 11-15-2024 End: 11-15-[address] Davide Chao MD Work Phone: [facility] Work Phone: Start: 11-15-2024 End: 11-15-2024 Patient encounter procedure Jeanette Roach CNM -Lab [facility] Start: 11-15-2024 End: 11-15-2024 ambulatory Davide Chao Facility:[facility] Start: 11-11-2024 End: 11-11-[address] Davide hCao MD Work Phone: [facility] Work Phone: Start: 11-11-2024 End: 11-11-[address] Melissa Brasher DO -Laboratory Work Phone: Start: 11-11-2024 End: 11-11-2024 ambulatory Melissa Brasher Facility:[facility] Start: 10-26-2024 End: 10-26-[address] Davide Chao MD Work Phone: [facility] Work Phone: Start: 10-26-2024 End: 10-26-[address] Melissa Brasher DO -Laboratory Work Phone: Start: 10-26-2024 End: 10-26-2024 ambulatory Melissa Brasher Facility:[facility] Start: 09-12-2024 End: 11-12-2024 Follow-up encounter Marina Snell APRN.HERB DOCTOR Work Phone: OB/Gynecology Start: 09-12-2024 End: 09-12-2024 Telephone encounter Davide Chao MD Work Phone: [facility] [place] Comment on above: Faxed to [facility] Start: 09-10-2024 End: 09-10-2024 ambulatory Electrical [employer] Work Phone: OB/Gynecology Start: 09-10-2024 End: 09-10-2024 Patient encounter procedure Us Tech 1 [employer] OB/Gynecology Start: 09-05-2024 End: 09-05-2024 ambulatory DAVIDE CHAO Facility:[facility] Start: 09-05-2024 End: 09-05-2024 Patient encounter procedure Marina Snell APRN.HERB DOCTOR Work Phone: OB/Gynecology Comment on above: Uterine cyst (Primar y Dx); Adenomyosis of uterus Start: 08-21-2024 End: 08-21-[address] Davide Chao MD Work Phone: [facility] Work Phone: Start: 08-21-2024 End: 08-21-[address] Melissa Brasher DO -Ultrasound, [facility] Work Phone: Start: 08-21-2024 End: 08-21-2024 ambulatory Melissa Brasher Facility:[facility] Start: 08-19-2024 End: 08-19-[address] Davide Chao MD Work Phone: [facility] Work Phone: Start: 08-19-2024 End: 08-19-[address] Melissa Brasher DO -Laboratory, Specimen Work Phone: Start: 08-19-2024 End: 08-19-[address] Melissa Brasher DO -[facility] Work Phone: Start: 08-19-2024 End: 08-19-2024 ambulatory Melissa Brasher Facility:[facility] Start: 08-19-2024 End: 10-19-2024 Follow-up encounter Davide Chao MD Work Phone: [facility] [place] Start: 08-19-2024 End: 08-19-2024 ambulatory Melissa Brasher Facility:[facility] Start: 08-16-2024 End: 08-16-2024 ambulatory DAVIDE CHAO Facility:[facility] Start: 08-15-2024 ambulatory [facility] Start: 08-14-2024 End: 08-15-2024 Telephone encounter Davide Chao MD Work Phone: Coumadin [facility] Comment on above: Results (labs) Start: 08-12-2024 End: 08-12-2024 Follow-up encounter Davide Chao MD Work Phone: [facility] [place] Start: 08-12-2024 End: 08-12-2024 ambulatory DAVIDE CHAO Facility:[facility] Start: 08-06-2024 End: 08-06-2024 Distance Health Davide Chao MD Work Phone: [facility] Comment on above: Elevated blood press ure reading without diagnosis of hypertension (Primary Dx); Fibromyalgia; Anxiety with depression; ADHD (attention deficit hyperactivity disorder), combined type Start: 07-24-2024 End: 07-24-2024 Patient encounter procedure Laura Salinas CNM -Lab, [facility] Start: 07-24-2024 End: 07-24-2024 ambulatory Laura Salinas Facility:[facility] Start: 06-10-2024 End: 06-10-2024 Patient encounter procedure Davide Chao MD Work Phone: [facility] Comment on above: Anxiety (Primary Dx) ; Elevated blood pressure reading without diagnosis of hypertension; ADHD (attention deficit hyperactivity disorder), combined type Start: 06-10-2024 End: 06-10-2024 ambulatory DAVIDE CHAO Facility:[facility] Start: 06-10-2024 End: 06-10-2024 ambulatory Love Castillo NP Facility:[facility] Start: 04-19-2024 End: 04-19-2024 ambulatory [facility] Facility:[facility] Start: 04-19-2024 End: 04-19-2024 ambulatory [facility] Facility:[facility] Start: 03-29-2024 End: 03-29-2024 ambulatory Davide Chao MD Work Phone: [facility] Comment on above: Eosinophilic esophag itis (Primary Dx); Anxiety with depression; Dysphagia, unspecified type Start: 03-29-2024 End: 03-29-2024 Telemedicine consultation with patient Davide Chao MD Work Phone: [facility] [place] Start: 03-26-2024 End: 03-26-2024 ambulatory Davide Chao MD Work Phone: [facility] Comment on above: Advice Start: 03-22-2024 End: 03-22-2024 Emergency department patient visit RAMON PULLIAM MD [facility] Start: 03-22-2024 End: 03-22-2024 Telephone encounter Davide Chao MD Work Phone: [facility] [place] Comment on above: Chest Pain Start: 03-22-2024 End: 03-22-2024 Emergency department patient visit ANTONETTE Siddiqi MANFRED [facility] Start: 12-28-2023 Telephone encounter Davide deng MD Work Phone: [facility] [place] Comment on above: Medication Request Start: 12-08-2023 End: 12-08-2023 ambulatory Davide Chao MD Work Phone: [facility] [place] Comment on above: Anxiety with depress ion (Primary Dx) Start: 12-08-2023 End: 12-08-2023 Telemedicine consultation with patient Davide Chao MD Work Phone: [facility] [place] Start: 11-03-2023 End: 11-03-2023 ambulatory Davide Chao MD Work Phone: [facility] [place] Comment on above: Fibromyalgia (Primar y Dx); Anxiety with depression; Near syncope; URI, acute Start: 11-03-2023 End: 11-03-2023 Telemedicine consultation with patient Davide Chao MD Work Phone: [facility] [place] Start: 11-01-2023 Refill Davide haq MD Work Phone: [facility] [place] Comment on above: Refill Request Start: 10-18-2023 Telephone encounter Rayo Nielson PA-C Work Phone: [facility] [place] Start: 10-17-2023 End: 10-17-2023 ambulatory DAVIDE CHAO Facility:[facility] Start: 10-17-2023 End: 10-17-2023 Office outpatient visit 25 minutes Rayo Nielson PA-C Work Phone: [facility] [place] Comment on above: Near syncope (Primar y Dx) Start: 10-03-2023 Non-patient / Non-visit Dr. Lana Chao Work Phone: [facility] Start: 10-03-2023 End: 10-03-2023 Admission to same day surgery center Dr. Davide Chao Work Phone: [facility] Start: 10-03-2023 End: 10-03-[address] Davide Chao Work Phone: [facility] Work Phone: Start: 09-04-2023 End: 09-04-[address] Davide Chao Work Phone: [facility] Work Phone: Start: 08-11-2023 ambulatory Davide haq MD Work Phone: [facility] Comment on above: Supplement Start: 08-10-2023 End: 08-10-2023 Patient encounter procedure Roberto King SONNYHERB DOCTOR Work Phone: [facility] Comment on above: Viral syndrome (Prim james Dx); Urinary frequency Start: 07-13-2023 End: 07-13-[address] Davide Chao Work Phone: [facility] Work Phone: Start: 07-13-2023 End: 07-13-[address] Davide Chao Work Phone: [facility] [place], [facility] Work Phone: Start: 07-11-2023 Refill Davide haq MD Work Phone: [facility] Comment on above: Refill Request Start: 06-28-2023 End: 06-28-[address] Davide Chao Work Phone: [facility] Work Phone: Start: 06-28-2023 End: 06-28-[address] Davide Chao Work Phone: [facility]-Laboratory, Specimen Work Phone: Start: 06-28-2023 End: 06-28-[address] Davide Chao Work Phone: [facility] Work Phone: Start: 06-28-2023 End: 06-28-[address] Davide Chao Work Phone: [facility] Work Phone: Start: 06-09-2023 End: 06-09-2023 Subsequent hospital visit by physician Alina Alvarado MD Work Phone: [facility] [employer] Comment on above: Arrived Start: 06-06-2023 End: 06-07-2023 Emergency department patient visit Son Gunderson MD Work Phone: [facility] Comment on above: Vaginal bleeding (Pr imary Dx) Start: 05-31-2023 ambulatory [facility] Start: 05-31-2023 End: 05-31-2023 Subsequent hospital visit by physician Alina Alvarado MD Work Phone: [facility] [employer] Comment on above: Arrived Start: 05-08-2023 Refill Davide haq MD Work Phone: [facility] Comment on above: Refill Request Start: 04-07-2023 Telephone encounter Davide deng MD Work Phone: [facility] Comment on above: Patient Question Start: 03-28-2023 End: 03-28-2023 ambulatory Davide Chao MD Work Phone: [facility] Comment on above: Anxiety with depress ion (Primary Dx); Bilateral leg edema; Anemia, unspecified type; Elevated liver function tests Start: 03-28-2023 End: 03-28-2023 Telemedicine consultation with patient Davide Chao MD Work Phone: [facility] Start: 03-18-2023 Non-patient / Non-visit Dr. Lana Chao Work Phone: [facility] Start: 03-18-2023 End: 03-18-[address] Davide Chao Work Phone: [facility] Work Phone: Start: 03-18-2023 End: 03-18-[address] Davide Chao Work Phone: [facility] Out[facility] Work Phone: Start: 03-18-2023 End: 03-18-2023 [facility] Start: 03-13-2023 Non-patient / Non-visit Dr. Lana Chao Work Phone: [facility] Start: 03-13-2023 End: 03-13-2023 Emergency department patient visit Edy Orellana MD Work Phone: [facility] Emergency Medicine Comment on above: Hypertension, unspec ified type (Primary Dx); induced hypertension, antepartum Start: 03-12-2023 Non-patient / Non-visit Dr. Lana Chao Work Phone: [facility] Start: 03-11-2023 Non-patient / Non-visit Dr. Lana Chao Work Phone: [facility] Start: 03-10-2023 Non-patient / Non-visit Dr. Lana Chao Work Phone: [facility] Start: 03-09-2023 Non-patient / Non-visit Dr. Lana Chao Work Phone: [facility] Start: 03-09-2023 End: 03-11-2023 Evaluation and management of inpatient Dr. Davide Chao Work Phone: [facility] Work Phone: Start: 03-09-2023 End: 03-09-[address] Davide Chao Work Phone: [facility] Work Phone: Start: 03-08-2023 Non-patient / Non-visit Dr. Lana Chao Work Phone: [facility] Start: 03-08-2023 End: 03-08-[address] Davide Chao Work Phone: [facility] Work Phone: Start: 03-04-2023 Non-patient / Non-visit Dr. Lana Chao Work Phone: [facility] Start: 03-04-2023 End: 03-04-[address] Davide Chao Work Phone: [facility] Work Phone: Start: 03-04-2023 End: 03-04-[address] Davide Chao Work Phone: [facility] Work Phone: Start: 03-04-2023 End: 03-04-[address] Davide Chao Work Phone: [facility] Work Phone: Start: 03-04-2023 End: 03-04-[address] Davide Chao Work Phone: [facility] Work Phone: Start: 03-03-2023 End: 03-03-[address] Davide Chao Work Phone: [facility] Work Phone: Start: 03-01-2023 End: 03-01-[address] Davide Chao Work Phone: [facility] Work Phone: Start: 02-28-2023 End: 02-28-[address] Davide Chao Work Phone: [facility] Work Phone: Start: 02-28-2023 End: 02-28-[address] Davide Chao Work Phone: [facility] Work Phone: Start: 02-24-2023 End: 02-24-[address] Davide Chao Work Phone: [facility] Work Phone: Start: 02-22-2023 End: 02-22-[address] Davide Chao Work Phone: [facility] Work Phone: Start: 02-22-2023 End: 02-22-[address] Davide Chao Work Phone: [facility] Work Phone: Start: 02-18-2023 Non-patient / Non-visit Dr. Lana Chao Work Phone: [facility] Start: 02-18-2023 End: 02-18-[address] Davide Chao Work Phone: [facility] Work Phone: Start: 02-18-2023 End: 02-18-[address] Davide Caho Work Phone: [facility] Work Phone: Start: 02-17-2023 End: 02-17-[address] Davide Chao Work Phone: [facility]-Laboratory, Specimen Work Phone: Start: 02-17-2023 End: 02-17-[address] Davide Chao Work Phone: [facility] Work Phone: Start: 02-02-2023 End: 02-02-[address] Davide Chao Work Phone: [facility] Work Phone: Start: 02-01-2023 End: 02-01-[address] Davide Chao Work Phone: [facility] Work Phone: Start: 01-30-2023 Non-patient / Non-visit Dr. Lana Chao Work Phone: [facility] Start: 01-30-2023 Telephone encounter Davide deng MD Work Phone: [facility] [place] Comment on above: Pain, Back; yellowin g of sclera Start: 01-30-2023 End: 01-30-[address] Davide Chao Work Phone: [facility] Work Phone: Start: 01-30-2023 End: 01-30-[address] Davide Chao Work Phone: [facility], [facility] Work Phone: Start: 01-27-2023 End: 01-27-2023 Patient encounter procedure Marilyn Gruber APRN.HERB DOCTOR Work Phone: [facility] Comment on above: STD (sexually transm itted disease) (Primary Dx) Start: 01-23-2023 End: 01-23-2023 Emergency department patient visit Dr. Davide Chao Work Phone: [facility]-Emergency [facility] Work Phone: Start: 01-16-2023 Non-patient / Non-visit Dr. Lana Chao Work Phone: [facility] Start: 01-16-2023 End: 01-16-[address] [facility] Work Phone: Start: 01-16-2023 End: 01-16-[address] Davide Chao Work Phone: [facility] Work Phone: Start: 12-21-2022 End: 12-21-[address] Davide Chao Work Phone: [facility] Work Phone: Start: 11-29-[address] Davide Chao Facility:[id number] Start: 11-29-2022 Patient encounter procedure [facility] Work [facility]: Start: 11-25-2022 End: 11-25-[address] Davide Chao Work Phone: [facility] Work Phone: Start: 11-11-2022 End: 11-11-[address] Davide Chao Work Phone: [facility] Work Phone: Start: 11-11-2022 End: 11-11-[address] Davide Chao Facility:[id number] Start: 11-11-2022 End: 11-11-2022 Subsequent hospital visit by physician Andry Rueda MD Work Phone: [facility] Comment on above: Lower abdominal pain , unspecified; Antepartum hemorrhage, unspecified, second trimester; Maternal care for other rhesus isoimmunization, second trimester, not applicable or unspecified; 21 weeks gestation of Start: 11-10-[address] Davide Chao Facility:[id number] Start: 11-04-2022 ambulatory ALINA ALVARADO [facility] Start: 11-04-2022 End: 11-04-2022 Subsequent hospital visit by physician Alina Alvarado MD Work Phone: [facility] [employer] Comment on above: Arrived Start: 11-04-2022 End: 11-04-[address] Davide Chao Work Phone: [facility] Work Phone: Start: 11-04-2022 End: 11-04-[address] Davide Chao Work Phone: [facility] Start: 11-03-2022 AQUATICFU4, Provider : Katalina Roach, Status: Pen, Time: 11:30 AM Davide Chao Work Phone: [facility] Work Phone: Start: 11-01-2022 Patient encounter procedure Davide Chao Work Phone: [facility] Work Phone: Start: 11-01-[address] Davide Chao Facility:[id number] Start: 10-28-2022 End: 10-28-[address] Davide Chao Work Phone: [facility] Start: 10-18-2022 Patient encounter procedure Davide Chao Work Phone: [facility] Work Phone: Start: 10-18-[address] Davide Chao Facility:[id number] Start: 10-10-2022 Telephone encounter Davide deng MD Work Phone: [facility] Comment on above: Referral Request Start: 10-10-2022 End: 10-10-2022 ambulatory DAVIDE CHAO [facility] Start: 09-28-2022 End: 09-28-[address] Davide Chao Work Phone: [facility] Work Phone: Start: 09-28-2022 End: 09-28-[address] Davide Chao Work Phone: [facility]-Laboratory, Specimen Start: 09-28-2022 End: 09-28-[address] Davide Chao Work Phone: [facility] Start: 09-11-2022 End: 09-12-2022 Emergency department patient visit Byron Aranda [facility] Emergency 09 Start: 09-10-2022 End: 09-11-2022 Emergency department patient visit Dr. John Valladares Facility:[id number] Start: 08-17-2022 End: 08-17-[address] Davide Chao Work Phone: [facility] Work Phone: Start: 08-17-2022 End: 08-17-[address] Davide Chao Work Phone: [facility]-Laboratory, Specimen Start: 08-17-2022 End: 08-17-[address] Davide Chao Work Phone: [facility] Start: 08-10-[address] Davide Chao Facility:[id number] Start: 08-03-2022 End: 08-03-[address] Davide Chao Work Phone: [facility], [facility] Start: 08-02-2022 End: 08-02-2022 Emergency department patient visit ANDRY ECKERT [facility] Start: 07-30-2022 End: 07-31-2022 ambulatory DAVIDE Shirley [facility] Start: 07-30-2022 End: 07-30-2022 Subsequent hospital visit by physician aDvide Chao Work Phone: [facility] Start: 07-29-2022 End: 07-29-[address] Davide Chao Work Phone: [facility] Work Phone: Start: 07-29-2022 End: 07-29-[address] Davide Chao Work Phone: [facility] Start: 07-28-2022 End: 07-30-2022 [facility] Start: 07-28-2022 End: 07-30-2022 Subsequent hospital visit by physician [facility] Ul[facility]ound Room Andrés [facility] Comment on above: Acute bilateral low back pain with right-sided sciatica; , unspecified gestational age , unspecifi ed gestational age Start: 07-26-2022 End: 07-26-2022 Emergency department patient visit [facility] Start: 07-14-2022 Emergency department patient visit [facility] Start: 07-13-2022 End: 07-14-2022 Emergency department patient visit Nery Esparza MD Work Phone: [facility] ED Comment on above: Back strain, initial encounter (Primary Dx) Start: 06-21-2022 End: 06-21-2022 ambulatory Davide Chao MD Work Phone: [facility] Comment on above: Chronic insomnia (Pr imary Dx); Anxiety with depression; Gastritis without bleeding, unspecified chronicity, unspecified gastritis type Start: 06-21-2022 End: 06-21-2022 Telemedicine consultation with patient Davide Chao MD Work Phone: [facility] Start: 05-09-2022 End: 05-09-2022 Emergency department patient visit DIPAK MANCINI [facility] Start: 03-04-2022 End: 03-04-2022 ambulatory Davide Chao MD Work Phone: [facility] Comment on above: Anxiety with depress ion (Primary Dx) Start: 03-04-2022 End: 03-04-2022 Telemedicine consultation with patient Davide Chao MD Work Phone: [facility] Start: 03-03-2022 ambulatory Davide haq MD Work Phone: [facility] [place] Comment on above: Medications Start: 11-29-2021 E-mail encounter fro m caregiver [facility] Provider [facility] Start: 11-29-2021 Follow-up encounter [facility] Provider [facility] [place] Comment on above: Follow up Start: 11-29-2021 End: 11-29-2021 ambulatory Davide Chao MD Work Phone: [facility] [place] Comment on above: Anxiety Start: 11-29-2021 End: 11-29-2021 Telemedicine consultation with patient Davide Chao MD Work Phone: [facility] Start: 11-21-2021 End: 11-21-2021 ambulatory [facility] Start: 11-21-2021 End: 11-21-2021 Office outpatient visit 15 minutes [facility] Work Phone: [facility] Comment on above: Non-recurrent acute suppurative otitis media of left ear without spontaneous rupture of tympanic membrane (Primary Dx) Start: 11-16-[address] Davide Chao Facility:[id number] Start: 10-12-2021 End: 10-14-2021 Evaluation and management of inpatient Andry Rueda [facility] L[facility] 405 Start: 10-11-2021 Chart Update Davide haq Work Phone: [facility] [employer] Work Phone: Start: 10-08-2021 ambulatory MD ANDRY RUEDA Facility:[id number] Start: 10-01-2021 Office outpatient vi sit 15 minutes Davide Chao Work Phone: [facility] [employer] Work Phone: Start: 10-01-2021 ambulatory MD ANDRY RUEDA Facility:[id number] Start: 09-27-2021 Chart Update Davide haq Work Phone: [facility] [address] Work Phone: Start: 09-24-2021 Office outpatient vi sit 10 minutes Davide Oglesby Zhanna Work Phone: [facility] [address] Work Phone: Start: 09-24-[address] [id number] Start: 09-20-2021 Chart Update Davide Reny Cristino ock Work Phone: [facility] [address] Work Phone: Start: 09-17-[address] Davide Chao Facility:[id number] Start: 09-10-2021 Office outpatient vi sit 15 minutes Davide Chao Work Phone: [facility] [address] Work Phone: Start: 09-10-[address] Davide Chao Facility:[id number] Start: 08-31-2021 AUDIT Davide Gregg ock Work Phone: [facility] [address] Work Phone: Start: 08-27-[address] Davide Chao Facility:[id number] Start: 08-27-2021 Office outpatient vi sit 15 minutes Davide Chao Work Phone: [facility] [address] Work Phone: Start: 08-13-2021 ambulatory MD ANDRY RUEDA Facility:[id number] Start: 08-06-2021 Chart Update Davide Gregg ock Work Phone: [facility] [address] Work Phone: Start: 07-30-2021 Office outpatient vi sit 15 minutes Davide Chao Work Phone: [facility] [address] Work Phone: Start: 07-12-2021 Office outpatient vi sit 15 minutes Davide Chao Work Phone: [address] Work Phone: Start: 06-23-2021 End: 06-23-2021 Subsequent hospital visit by physician Gallito Couch MD Work Phone: [facility] Start: 05-17-2021 End: 05-21-2021 ambulatory YURIIRVING MOORE RICHARD [facility] Start: 05-17-2021 End: 05-17-2021 Office outpatient new 45 minutes Maricel Simeon MD Work Phone: [facility] Comment on above: Palpitations (Primar y Dx) Start: 05-12-2021 End: 05-13-2021 Emergency department patient visit [facility] Start: 05-09-2021 End: 05-10-2021 Emergency department patient visit [facility] Start: 03-16-2021 End: 03-17-2021 Emergency department patient visit Cheyanne Izaguirre [facility] Emergency 10 Start: 03-01-2021 End: 03-01-2021 Emergency department patient visit Son Gunderson [facility] Emergency 12 Start: 02-12-2021 Patient requested procedure [facility] Provider [facility] Work Phone: Start: 12-14-2020 End: 12-15-2020 Emergency department patient visit Cheyanne Izaguirre [facility] Emergency 04 Start: 12-08-2020 End: 12-08-2020 [facility] Start: 09-27-2020 End: 09-27-2020 Emergency department patient visit [facility] Start: 09-27-2020 End: 09-27-2020 Emergency department patient visit Barbara Sandoval MD Work Phone: [facility] Emergency Department Start: 09-26-2020 End: 09-26-2020 ambulatory [facility] Start: 09-26-2020 End: 09-26-2020 Evaluation and management of inpatient Generic [facility] Physicians Work Phone: [facility] Intermediate Start: 09-26-2020 End: 09-26-2020 Emergency department patient visit Rm DuranSusana Veras [facility] Emergency 02 Start: 08-12-2020 End: 08-12-2020 Transcribe Orders Davide Chao Work Phone: [facility] Phys[facility] Comment on above: Cervical pain (Prima ry Dx) Start: 09-18-2018 Emergency department patient visit UNKNOWN PROVIDER [facility] Start: 09-01-2018 End: 09-01-2018 Emergency department patient visit Tony Roe Egal Work Phone: [facility] Emergency Department Comment on above: Kidney stone on left side (Primary Dx) Start: 08-31-2018 End: 09-01-2018 Emergency department patient visit LAMARGARTH Abel KAYE [facility] Start: 08-22-2018 Emergency department patient visit UNKNOWN PROVIDER [facility] Start: 08-17-2018 End: 08-17-2018 ambulatory UNKNOWN PROVIDER Facility:[facility] Start: 07-12-2018 End: 07-12-2018 Patient encounter procedure RENETTAROMINA SWO Facility:[facility] Start: 06-21-2018 End: 06-21-2018 Patient encounter procedure RENETTA ADRIANAY Facility:[facility] Start: 11-25-2017 End: 11-25-2017 Emergency department [facility] Facility:[facility] Procedures Date Procedure Procedure Detail Performing Clinician [...] 0.0 - 0.1Performed at: CB - [facility] [id number] [place], [place] [id number] Director: Maximilian Hunt PhD, Phone: [phone] Start: 09-10-2024 Us pelvic nonobstetric real-time image complete Marina Snell APRN.HERB DOCTOR Work Phone: Start: 08-21-[address] [...] Result Comment: URINALYSIS Performed By: #### [id number] ####[facility],[address] [place] [address] Start: 10-03-[address] Davide Chao Work Phone: Start: 08-10-2023 INFLUENZA A&B MOLECULAR (POC) Roberto Andrea APRN.HERB DOCTOR Work Phone: Start: 08-10-2023 Urnls dip stick/tablet rgnt auto w/o microscopy Roberto Andrea APRN.HERB DOCTOR Work Phone: Start: 07-13-[address] [...] Work Phone: Start: 03-13-2023 C-reactive protein Edy rOellana MD Work Phone: Start: 03-13-2023 Comprehensive metabolic [...] on above: Performed By: #### T+S #### [address] [address] Start: 11-11-2022 Antibody screen Andry Rueda MD [...] of 2) Zoster Vaccines (1 of 2) [facility] Start: 08-19-2029 Screening for malignant neoplasm of cervix Cervical Cancer Screening [facility] Start: 05-04-2026 DTaP/Tdap/Td vaccine (2 - Td or Tdap) DTaP/Tdap/Td vaccine (2 - Td or Tdap) [facility] Start: 05-04-2026 DTaP/Tdap/Td Vaccines (2 - Td or Tdap) DTaP/Tdap/Td Vaccines (2 - Td or Tdap) [facility] Start: 05-04-2026 Tetanus vaccination [facility] Start: 05-04-2026 Urine microalbumin profile [facility] Start: 01-07-2026 HPV TESTING HPV TESTING [facility] Start: 01-07-2026 PAP TESTING PAP TESTING [facility] Start: 01-07-2026 Screening for malignant neoplasm of cervix [facility] Start: 02-03-2025 Influenza vaccination Influenza Vaccine (Season Ended) [facility] Start: 01-03-2025 Choriogonadotropin ( test) [Presence] in Serum or Plasma [facility] Start: 01-03-2025 Serum progesterone measurement [facility] Start: 11-23-2024 [facility] Start: 11-23-2024 End: 11-23-2024 [facility] Start: 09-10-2024 End: 09-10-2024 ambulatory 09/10/2024 2:00 PM EDT Procedure OB/Gynecology [address] [place] [address] Remote, Electrical Lineman [facility] [address] [place] [address] Uterine cyst [N85.8]; Adenomyosis of uterus [N80.03] OB/Gynecology Comment on above: Uterine cyst [N85.8]; Adenomyosis of [place] [N80.03] Start: 09-09-2024 End: 09-09-2024 Patient encounter procedure 09/09/2024 12:40 PM EDT Office Visit [facility] [address] [place], [place] [id number] Davide Chao MD [address] [place] [employer], [place] [address] 3 month follow up [facility] Comment on above: 3 month follow up Start: 09-05-2024 End: 09-05-2025 US Pelvis PELVIC US [facility] Imaging Routine Uterine cyst Adenomyosis of uterus Expected: 09/05/2024, Expires: 09/05/2025 [facility] Work Phone: Comment on above: Expected: 09/05/2024, Expires: 6 Start: 08-15-2024 End: 11-14-2024 Folate [Mass/volume] in Serum or Plasma FOLATE, SERUM Lab Routine Fatigue, unspecified type Expected: 08/15/2024, Expires: 11/14/2024 [facility] Comment on above: Expected: 08/15/2024, Expires: 5 Start: 08-15-2024 End: 11-14-2024 Iron and Iron binding capacity panel - Serum or Plasma IRON AND TIBC Lab Routine Fatigue, unspecified type Expected: 08/15/2024, Expires: 11/14/2024 [facility] Work Phone: Comment on above: Expected: 08/15/2024, Expires: Start: 03-29-2024 End: 03-29-2024 ambulatory 03/29/2024 11:40 AM EDT [facility] [address] [place] [address] Davide Chao MD [address] [place] [address] Chest pain, ER visit-nothing found, can't swallow [facility] Comment on above: Chest pain, ER visit-nothing found, can' t swallow Start: 02-04-2024 Covid-19 Vaccine ( season) Covid-19 Vaccine ( season) [facility] Start: 02-04-2024 Influenza vaccination Influenza Vaccine (#1) [facility] Start: 10-17-2023 End: 01-16-2024 Basic metabolic 2000 panel - Serum or Plasma [facility] Work Phone: Comment on above: Expected: 10/17/2023, Expires: 4 Start: 10-17-2023 End: 01-16-2024 Thyrotropin [Units/volume] in Serum or Plasma [facility] Comment on above: Expected: 10/17/2023, Expires: Start: 10-03-2023 Patient discharge [facility] Start: 10-03-2023 Procedure discontinued [facility] Start: 10-03-2023 Ambulation without limitation [facility] Start: 10-03-2023 Medical regimen orders management [facility] Start: 10-03-2023 Medication education [facility] Start: 10-03-2023 Taking patient vital signs [facility] Start: 10-03-2023 Vital signs measurements [facility] Start: 10-03-2023 [facility] Start: 06-28-2023 Assay of thyroid stimulating hormone tsh ASSAY THYROID STIM HORMONE [facility] Start: 06-28-2023 Blood count complete auto&auto difrntl wbc COMPLETE CBC W/AUTO DIFF WBC [facility] Start: 06-28-2023 Collection venous blood venipuncture ROUTINE VENIPUNCTURE [facility] Start: 06-19-2023 End: 06-19-2023 Patient encounter procedure 06/19/2023 1:00 PM EST Office Visit [facility] Cardiology [address] [place] [address] Alina Alvarado MD [address] [place] [address] [facility] Start: 06-09-2023 End: 06-09-2023 Patient encounter procedure 06/09/2023 1:00 PM EST Appointment [facility] [employer] Super[facility] [address] [place] [address] Alina Alvarado MD [address] [place] [address] [facility] Start: 06-06-2023 End: 06-06-2023 Patient encounter procedure 06/06/2023 1:45 PM EST Office Visit [facility] Cardiology [address] [place] [address] Alina Alvarado MD [address] [place] [address] [facility] Start: 03-28-2023 End: 06-27-2023 CBC panel - Blood by Automated count CBC Lab Routine Anemia, unspecified type Expected: 03/28/2023, Expires: 06/27/2023 [facility] Work Phone: Comment on above: Expected: 03/28/2023, Expires: 4 Start: 03-28-2023 End: 06-27-2023 Comprehensive metabolic 2000 panel - Serum or Plasma COMP METABOLIC PANEL Lab Routine Anemia, unspecified type Elevated liver function tests Expected: 03/28/2023 (Approximate), Expires: 06/27/2023 [facility] Work Phone: Comment on above: Expected: 03/28/2023 (Approximate), Expi res: 06/27/2023 Start: 03-28-2023 End: 06-27-2023 Natriuretic peptide.B prohormone N-Terminal [Mass/volume] in Serum or Plasma NT PRO BNP Lab Routine Bilateral leg edema Anemia, unspecified type Elevated liver function tests Expected: 03/28/2023, Expires: 06/27/2023 [facility] Work Phone: Comment on above: Expected: 03/28/2023, Expires: 4 Start: 03-18-2023 Vital signs measurements [facility] Start: 03-18-2023 End: 03-18-2023 [facility] Start: 03-18-2023 Patient discharge [facility] Start: 03-11-2023 Patient discharge [facility] Start: 03-10-2023 Administration of blood product [facility] Start: 03-10-2023 Administration of medication [facility] Start: 03-10-2023 Application of ice collar, cap or bag [facility] Start: 03-10-2023 Catheterization of vein [facility] Start: 03-10-2023 Introduction of urinary catheter [facility] Start: 03-10-2023 Measuring intake and output [facility] Start: 03-10-2023 Notification of physician [facility] Start: 03-10-2023 Procedure discontinued [facility] Start: 03-10-2023 Provision of activity privileges [facility] Start: 03-10-2023 Vital signs measurements [facility] Start: 03-10-2023 [facility] Start: 03-10-2023 Consultation [facility] Start: 03-09-2023 Admission procedure [facility] Start: 03-08-2023 monitoring labor phys written report MONITOR W/REPORT [facility] Start: 03-08-2023 nonstress test NON-STRESS TEST [facility] Start: 03-08-2023 Urnls dip stick/tablet reagent auto microscopy URINALYSIS AUTO W/SCOPE [facility] Start: 03-08-2023 Nonstress test [facility] Start: 03-08-2023 Obstetric monitoring [facility] Start: 03-08-2023 Vital signs measurements [facility] Start: 03-08-2023 [facility] Start: 03-08-2023 Patient discharge [facility] Start: 03-04-2023 [facility] Start: 03-04-2023 Nonstress test [facility] Start: 03-04-2023 Biophysical profile panel US [facility] Start: 03-04-2023 Ultrasonography for biophysical profile without non-stress testing Biophysical Prof W/O Non Stres [facility] Start: 03-04-2023 Obstetric monitoring [facility] Start: 03-04-2023 Vital signs measurements [facility] Start: 03-04-2023 [facility] Start: 03-04-2023 Patient discharge [facility] Start: 03-04-2023 [facility] Start: 03-01-2023 Nonstress test [facility] Start: 03-01-2023 Obstetric monitoring [facility] Start: 03-01-2023 Vital signs measurements [facility] Start: 03-01-2023 [facility] Start: 02-18-2023 Genital Culture Genital Culture [facility] Start: 02-18-2023 Microscopic observation [Identifier] in Unspecified specimen by Gram stain Gram Stain [facility] Start: 02-18-2023 Source specific culture [facility] Start: 02-18-2023 Procedure [facility] Start: 02-18-2023 Administration of blood product [facility] Start: 02-18-2023 Nonstress test [facility] Start: 02-18-2023 Obstetric monitoring [facility] Start: 02-18-2023 Vital signs measurements [facility] Start: 02-18-2023 [facility] Start: 02-18-2023 Chlamydia deoxyribonucleic acid detection [facility] Start: 02-18-2023 Patient discharge [facility] Start: 02-03-2023 Covid-19 Vaccine ( season) Covid-19 Vaccine () [facility] Start: 02-03-2023 Influenza vaccination [facility] Start: 01-30-2023 Nonstress test [facility] Start: 01-30-2023 Obstetric monitoring [facility] Start: 01-30-2023 Vital signs measurements [facility] Start: 01-30-2023 [facility] Start: 01-30-2023 Patient discharge [facility] Start: 01-24-2023 [facility] Start: 01-23-2023 Troponin I measurement [facility] Start: 01-23-2023 [facility] Start: 01-16-2023 Following clinical pathway protocol [facility] Start: 01-16-2023 Iv infusion hydration initial 31 min-1 hour HYDRATION IV INFUSION INIT [facility] Start: 12-21-2022 Patient referral [facility] Work Phone: Start: 11-25-2022 Patient referral [facility] Work Phone: Start: 11-17-2022 OLIVER, Provider: Sylvia Calle, Status: Pen, Time: 11:30 AM OLIVER, Provider: Sylvia Calle, Status: Pen, Time: 11:30 AM [facility] Work Phone: Start: 11-15-2022 AQUATICFU4, Provider: Katalina Roach, Status: Pen, Time: 11:30 AM AQUATICFU4, Provider: Katalina Roach, Status: Pen, Time: 11:30 AM [facility] Work Phone: Start: 11-10-2022 AQUATICFU4, Provider: Katalina Roach, Status: Pen, Time: 11:30 AM AQUATICFU4, Provider: Katalina Roach, Status: Pen, Time: 11:30 AM [facility] Work Phone: Start: 11-08-2022 [email or web address], Provider: Katalina Roach, Status: Pen, Time: 11:30 AM AQUATICFU4, Provider: Katalina Roach, Status: Pen, Time: 11:30 AM [facility] Work Phone: Start: 10-28-2022 Patient referral [facility] Work Phone: Start: 08-17-2022 Liquid based cervical cytology screening [facility] Start: 02-15-2022 Patient encounter procedure ANNUAL, Provider: Andry Rueda, Status: Pen, Time: 11:00 AM [employer] Work Phone: Start: 02-03-2022 Influenza vaccination [facility] Start: 01-03-2022 Influenza vaccination Flu vaccine (#1) [facility] Start: 11-16-2021 Patient encounter procedure [facility] Start: 11-16-2021 PPV, Provider: Andry Rueda, Status: Pen, Time: 2:00 PM PPV, Provider: Andry Rueda, Status: Pen, Time: 2:00 PM [employer] Work Phone: Start: 10-12-2021 End: 10-13-2022 [facility] Comment on above: Consult provider prior to [...] fentaNYL 2 mcg/mL - Bupivacaine 0.0625% PCEA ([facility] ONLY) ; DEMAND/ PCEA Dose = 4BASAL/ Continuous Rate = 10One Hour Dose Limit = 34 mL/hr mL per hourNotes from Pharmacy: [Fentanyl 2 mcg/mL - Bupivacaine 0.0625%] Start: 12-Oct-2021 End: 12-Oct-2022 Ordered: 12-Oct-2021 Osiel Valentin [facility] Start: 10-08-2021 EPVOB, Provider: Andry Rueda, Status: Pen, Time: 10:30 AM EPVOB, Provider: Andry Rueda, Status: Pen, Time: 10:30 AM nap- Naturally [place] [address] [employer] Work Phone: Start: 10-01-2021 EPVOB, Provider: Andry Rueda, Status: Pen, Time: 11:15 AM EPVOB, Provider: Andry Rueda, Status: Pen, Time: 11:15 AM nap- Naturally Attached [place] [address] [employer] Work Phone: Start: 09-26-2021 Diabetes mellitus screening Diabetes Screening [facility] Start: 09-24-2021 EPVOB, Provider: Anil Panchal, Status: Pen, Time: 11:15 AM EPVOB, Provider: Anil Panchal, Status: Pen, Time: 11:15 AM [place] [employer] Work Phone: Start: 09-17-2021 EPVOB, Provider: Andry Rueda, Status: Pen, Time: 11:30 AM EPVOB, Provider: Andry Rueda, Status: Pen, Time: 11:30 AM [facility] [employer] Work Phone: Start: 09-10-2021 EPVOB, Provider: Andry Rueda, Status: Pen, Time: 11:00 AM EPVOB, Provider: Andry Rueda, Status: Pen, Time: 11:00 AM [place] [employer] Work Phone: Start: 08-13-2021 EPVOB, Provider: Andry Rueda, Status: Pen, Time: 9:00 AM EPVOB, Provider: Andry Rueda, Status: Pen, Time: 9:00 AM [place] [employer] Work Phone: Start: 07-30-2021 EPVOB, Provider: Andry Rueda, Status: Pen, Time: 11:15 AM EPVOB, Provider: Andry Rueda, Status: Pen, Time: 11:15 AM [place] [employer] Work Phone: Start: 07-20-2021 End: 07-20-2021 Patient encounter procedure 07/20/2021 Office Visit Cardiology Yuri Palencia MD [address] [place] [address] [facility] Start: 06-15-2021 Screening for malignant neoplasm of cervix [facility] Start: 05-17-2021 End: 07-18-2022 Echocardiography Echocardiogram complete Echocardiography Routine Palpitations Expected: 05/17/2021, Expires: 07/18/2022 [facility] Work Phone: Comment on above: Expected: 05/17/2021, Expires: Start: 05-17-2021 End: 07-18-2022 Extended Holter Monitor (3-7 days) Extended Holter Monitor (3-7 days) [facility] Routine Palpitations Expected: 05/17/2021, Expires: 07/18/2022 [facility] Comment on above: Expected: 05/17/2021, Expires: 3 Start: 02-03-2021 Influenza vaccination [facility] Start: 2020 Screening for malignant neoplasm of cervix HPV (without or with Pap) [facility] Start: 02-04-2020 Influenza vaccination Sequential Influenza Vaccine (#1) [facility] Start: 02-04-2020 Influenza vaccination given Sequential Influenza Vaccine (#1) [facility] Start: 02-03-2018 Influenza vaccination given SEQUENTIAL INFLUENZA VACCINE (#1) [facility] Start: 2011 Screening for malignant neoplasm of cervix [facility] Start: 2009 Hepatitis A Vaccines (1 of 2 - Risk 2-dose series) Hepatitis A Vaccines (1 of 2 - Risk 2-dose series) [facility] Start: 2009 Hepatitis B Vaccine (1 of 3 - 19+ 3-dose series) Hepatitis B Vaccine (1 of 3 - 19+ 3-dose series) [facility] Start: 2009 Third diphtheria, tetanus and acellular pertussis (DTaP) vaccination TDAP (ADULT) [facility] Start: 2008 Hepatitis C antibody, confirmatory test Hepatitis C Screening [facility] Start: 2008 Hepatitis C screening [facility] Start: 2008 Tetanus vaccination TETANUS [facility] Start: 2006 COVID-19 Vaccine (1 of 2) COVID-19 Vaccine (1 of 2) [facility] Start: 2006 COVID-19 Vaccine (1) COVID-19 Vaccine (1) [facility] Start: 2005 HIV screening [facility] Start: 2002 Adolescent depression screening assessment Depression Screening (PHQ9) [facility] Start: 2002 Depression Screen Depression Screen [facility] Start: 2002 Depression screening using PHQ-9 (Patient Health Questionnaire 9) score [facility] Start: 1995 COVID-19 Vaccine (#1) COVID-19 Vaccine (#1) [facility] Start: 1995 COVID-19 Vaccine (1) COVID-19 Vaccine (1) [facility] Start: 1993 History and physical examination, annual for health maintenance Wellness Visit [facility] Start: 1991 MMR Vaccines (1 of 1 - Standard series) MMR Vaccines (1 of 1 - Standard series) [facility] Start: 1991 Varicella vaccination Varicella Vaccines (1 of 2 - 2-dose childhood series) [facility] Start: 1991 Varicella vaccine (1 of 2 - 2-dose childhood series) Varicella vaccine (1 of 2 - 2-dose childhood series) [facility] Start: 1990 COVID-19 VACCINE (#1) COVID-19 VACCINE (#1) [facility] Start: 1990 HEPATITIS B (1 of 3 - 3-dose series) HEPATITIS B (1 of 3 - 3-dose series) [facility] Start: 1990 Hepatitis B vaccination HEP B VACCINE (1 of 3 - 3-dose series) [facility] Start: 1990 Hepatitis B Vaccine (1 of 3 - 3-dose series) Hepatitis B Vaccine (1 of 3 - 3-dose series) [facility] Start: 1990 Hepatitis B Vaccines (1 of 3 - 3-dose series) Hepatitis B Vaccines (1 of 3 - 3-dose series) [facility] Start: 1990 Hepatitis C antibody, confirmatory test HEPATITIS C VIRUS SCREENING [facility] Start: 1990 Hepatitis C screening HEPATITIS C VIRUS SCREENING [facility] Start: 1990 HIV screening HIV Screening [facility] Start: 1990 Lipid panel Lipid Panel [facility] Start: 1990 Screening for malignant neoplasm of cervix PAP SMEAR [facility] Start: 1990 Tetanus vaccination TETANUS EVERY 10 YR [facility] Start: 1990 Yearly Adult Physical Yearly Adult Physical [facility] End: 03-13-2023 Bacteria identified in Urine by Culture [facility] Work Phone: Comment on above: Once (Lab) for 1 Occurrences starting until 03/13/2023 End: 06-07-2023 Bacteria identified in Urine by Culture Urine Culture Microbiology Routine Once (Lab) for 1 Occurrences starting 06/07/2023 until 06/07/2023 [facility] Work Phone: Comment on above: Once (Lab) for 1 Occurrences starting until 06/07/2023 Bacteria identified in Urine by Culture Urine Culture Microbiology Routine 06/06/2023 11:41 PM EST [facility] Work Phone: End: 06-06-2023 Blood type and Indirect antibody screen panel - Blood [facility] Service Area Work Phone: Comment on above: Once (Lab) for 1 Occurrences starting until 06/06/2023 CBC W Auto Different ial panel - Blood [facility] Creatinine [Mass/vol ume] in Urine collected for unspecified duration [facility] End: 03-13-2023 Extra Urine Gilbert Tube [facility] Work Phone: Comment on above: Once for 1 Occurrences starting 03/13/20 23 until 03/13/2023, 1 completed End: 06-06-2023 Extra Urine [employer]ube [facility] Work Phone: Comment on above: Once for 1 Occurrences starting 06/06/19 24 until 06/06/2023 Biophysical pr ofile panel US [facility] Genital microscopy, culture and sensitivities [facility] Hepatitis B surface antigen measurement [facility] Hepatitis C antibody measurement [facility] HIV 1+2 Ab+HIV1 p24 Ag [Presence] in Serum or Plasma by Immunoassay [facility] HOLTER MONITOR - BANDER JOANN R MONITOR - CARE HOME ECG Routine Tachycardia Near syncope Dizziness and giddiness Ordered: 10/20/2022 [facility] Comment on above: Ordered: 10/20/2022 End: 05-31-2023 HOLTER MONITOR - BANDER HOLTER MONITOR - CARE HOME ECG Routine Near syncope Tachycardia 1 Occurrences starting 05/31/2023 until 05/31/2023 [facility] Comment on above: 1 Occurrences starting 05/31/2023 until 05/31/2023 Neisseria gonorrhoea e rRNA [Presence] in Unspecified specimen by MAYTE with probe detection [facility] Path report.final Dx Spec [facility] Patient Education [facility] Work Phone: Patient referral [facility] Work Phone: PCR test for Chlamyd ia trachomatis [facility] Procedure [facility] Protein [Mass/volume ] in Urine [facility] Protein/Creatinine [ Mass Ratio] in Urine [facility] Protein/Creatinine [ Ratio] in Urine [facility] Rubella IgG measurement [facility] Source specific culture [facility] Treponema sp Ab [Pre sence] in Serum [facility] End: 03-13-2023 Urinalysis complete W Reflex Culture panel - Urine [facility] Service Area Work Phone: Comment on above: Once (Lab) for 1 Occurrences starting until 03/13/2023 End: 06-06-2023 Urinalysis complete W Reflex Culture panel - Urine [facility] Work Phone: Comment on above: Once (Lab) for 1 Occurrences starting until 06/06/2023 [facility] Immunizations Immunization Date Immunization Notes Care Provider [facility] 08-03-2023 influenza virus vaccine, unspecified formulation Davide Chao MD Work Phone: [facility] 06-17-2019 influenza virus vaccine, unspecified formulation Davide Chao MD Work Phone: [facility] 05-04-2016 RHO(D) immune globulin- IV or IM [facility] Provider [facility] Work Phone: 05-04-2016 tetanus toxoid, reduced diphtheria toxoid, and acellular pertussis vaccine, adsorbed [facility] Provider [facility] [facility] Work Phone: 03-23-2016 influenza, injectabl e, quadrivalent, contains preservative [facility] Provider [facility] 03-23-2016 influenza virus vaccine, unspecified formulation Gallito Couch MD Work Phone: [facility] 06-14-2013 influenza virus vaccine, unspecified formulation [facility] Provider [facility] 04-25-2012 RHO(D) immune globulin- IV or IM [facility] Provider [facility] Work Phone: 04-05-2012 influenza virus vaccine, whole virus [facility] Provider [facility] 06-22-2010 RHO(D) immune globulin- IV or IM [facility] Provider [facility] Payers Date Payer Category Payer Self-pay [id number] 2017 Unknown 2014 Medicaid [facility]ICA[facility] xxxxxxxxxxx 2014-Present xxxxxxxxxxx [id number]. [id number] 2014 Medicaid [id number] [id number].3. [id number] 2014 Medicaid [id number]. 1.13.385.2.7.3. [id number] 2014 Unknown [id number] 2014 Unknown [id number] 1.2.840.922351.1.13.239.2.7.3. 764937.315 1990 Unknown [id number] 2.16.840.1.843116.3.579.2.278 1990 Unknown [id number] 2.16.840.1.140871.3.579.2.278 1990 Unknown [id number] 2.16.840.1.413646.3.579.2.668 1990 Unknown [id number] 2.16.840.1.957384.3.579.2.668 1990 Unknown [id number] 2.16.840.1.613814.3.579.2.903 1990 Unknown [id number] 2.16.840.1.418291.3.579.2.903 1990 Unknown [id number] 2.16.840.1.728385.3.579.2.903 1990 Unknown [id number] 2.16.840.1.610016.3.579.2.903 1990 Unknown [id number] 2.16.840.1.757000.3.579.2.903 1990 Unknown [id number] 2.16.840.1.193646.3.579.2.903 1990 Unknown [id number] 2.16.840.1.224071.3.579.2.903 1990 Unknown [id number] 2.16.840.1.448783.3.579.2.732 1990 Unknown [id number] 2.16.840.1.704947.3.579.2.903 1990 Unknown [id number] 2.16.840.1.896143.3.579.2.174 1990 Unknown [id number] 2.16.840.1.714454.3.579.2.174 1990 Unknown [id number] 2.16.840.1.201073.3.579.2.174 1990 Unknown [id number] 2.16.840.1.610211.3.579.2.174 1990 Unknown [id number] 2.16.840.1.146214.3.579.2.174 1990 Unknown [id number] 2.16.840.1.075355.3.579.2.903 1990 Unknown [id number] 2.16.840.1.850763.3.579.2.903 1990 Unknown [id number] 2.16.840.1.167614.3.579.2.356 1990 Unknown [id number] 2.16.840.1.501397.3.579.2.356 1990 Unknown [id number] 2.16.840.1.749718.3.579.2.356 1990 Unknown [id number] 2.16.840.1.803417.3.579.2.356 1990 Unknown [id number] 2.16.840.1.619788.3.579.2.356 1990 Unknown [id number] 2.16.840.1.760254.3.579.2.356 1990 Unknown [id number] 2.16.840.1.903847.3.579.2.356 1990 Unknown [id number] 2.16.840.1.724525.3.579.2.356 1990 Unknown [id number] 2.16.840.1.769126.3.579.2.356 1990 Unknown [id number] 2.16.840.1.900513.3.579.2.479 1990 Unknown [id number] 2.16.840.1.164676.3.579.2.1068 1990 Unknown [id number] 2.16.840.1.238147.3.579.2.1068 1990 Unknown [id number] 2.16.840.1.197508.3.579.2.1068 1990 Unknown [id number] 2.16.840.1.873598.3.579.2.1068 1990 Unknown [id number] 2.16.840.1.470425.3.579.2.1068 1990 Unknown [id number] 2.16.840.1.972691.3.579.2.1068 1990 Unknown [id number] 2.16.840.1.001125.3.579.2.1068 1990 Unknown [id number] 2.16.840.1.844512.3.579.2.983 1990 Unknown [id number] 2.16.840.1.995237.3.579.2.983 1990 Unknown [id number] 2.16.840.1.977882.3.579.2.1243 1990 Unknown [id number] 2.16.840.1.317806.3.579.2.1243 1990 Unknown [id number] 2.16.840.1.156303.3.579.2.1243 1990 Unknown [id number] 2.16.840.1.098542.3.579.2.627 1990 Unknown [id number] 2.16.840.1.304947.3.579.2.983 1990 Unknown [id number] 2.16.840.1.678483.3.579.2.651 1990 Unknown [id number] 2.16.840.1.297963.3.579.2.651 1990 Unknown [id number] 2.16.840.1.230854.3.579.2.651 1990 Unknown [id number] 2.16.840.1.067954.3.579.2.983 Unknown [id number] 2.16.840.1.778964.3.579.2.462 Unknown [id number] 2.16.840.1.141737.3.579.2.462 Unknown [id number] 2.16.840.1.004727.3.579.2.462 Unknown [id number] 2.16.840.1.384547.3.579.2.462 Unknown [id number] 2.16.840.1.414657.3.579.2.462 Unknown [id number] 2.16.840.1.118344.3.579.2.462 Unknown [id number] 2.16.840.1.921396.3.579.2.462 Unknown [id number] 2.16.840.1.170129.3.579.2.462 Unknown [id number] 2.16.840.1.655909.3.579.2.462 Unknown [id number] 2.16.840.1.173256.3.579.2.462 Unknown [id number] 2.16.840.1.111554.3.579.2.462 Unknown [id number] 2.16.840.1.902763.3.579.2.462 Unknown [id number] 2.16.840.1.726227.3.579.2.462 Unknown [id number] 2.16.840.1.268687.3.579.2.462 Unknown [id number] 2.16.840.1.566594.3.579.2.462 Social History Date Type Detail Facility Start: 09-01-2018 End: 11-23-2024 Tobacco smoking status PRIS Current every day smoker [facility] Start: 01-23-2004 End: 01-24-2021 History of tobacco use Cigarette Smoker [facility] Start: 09-01-2018 End: 11-03-2023 Cigarettes smoked current (pack per day) - Reported [facility] Start: 1990 Sex Assigned At Not on file [facility] Start: 09-01-2018 Alcohol intake Not Asked [facility] Start: 07-29-2022 End: 09-21-2023 Tobacco smoking consumption unknown [facility] Start: 11-11-2021 End: 06-07-2023 Exposure to SARS-CoV-2 (event) Not sure [facility] Start: 09-27-2020 End: 06-10-2024 Tobacco use and exposure Never used [facility] Start: 09-27-2020 End: 06-07-2023 Alcohol intake Lifetime non-drinker (finding) [facility] Start: 09-27-2020 End: 06-21-2022 History SDOH Alcohol Frequency 1 [facility] Start: 05-17-2021 End: 06-10-2024 Tobacco smoking status NHIS Ex-smoker [facility] Start: 01-23-2004 End: 01-24-2021 History of tobacco use Current smoker [facility] Start: 06-23-2021 End: 04-03-2025 Alcohol intake Current non-drinker of alcohol (finding) [facility] Start: 11-29-2021 End: 06-21-2022 History SDOH Alcohol Frequency 2 [facility] Start: 11-29-2021 End: 06-21-2022 History SDOH Social Connections Living 8 [facility] Start: 11-29-2021 End: 06-21-2022 History SDOH Physical Activity DPW 0 [facility] Start: 11-29-2021 End: 06-21-2022 History SDOH Stress 4 [facility] Start: 11-29-2021 History SDOH Housing Places Lived 3 [facility] Start: 06-13-2019 Education 21 [facility] Start: 06-21-2022 History SDOH Stress 5 [facility] Start: 09-25-2020 None [facility] Start: 09-25-2020 Cigarettes [facility] Start: 1990 Sex Assigned At Female W [facility] Start: 10-20-2022 Tobacco Comment Currently vapes [facility] Start: 06-21-2022 End: 11-03-2023 Social connection and isolation panel [facility] Do you belong to any clubs or organizations such as christian groups, unions, fraternal or athletic groups, or school groups? No [facility] Are you now , , , , never or living with a partner? Living with partner [facility] How often to you hav e a drink containing alcohol? Monthly or less [facility] How many standard drinks containing alcohol do you have on a typical day? 1 or 2 [facility] How often do you hav e 6 or more drinks on 1 occasion? Never [facility] How hard is it for y ou to pay for the very basics like food, housing, medical care, and heating Not very hard [facility] Adult Depression Screening Assessment 3 [facility] Do you feel stress - tense, restless, nervous, or anxious, or unable to sleep at night because your mind is troubled all the time - these days [OSQ] Very much [facility] (I/We) worried wheth er (my/our) food would run out before (I/we) got money to buy more. Never true [facility] Start: 03-13-2023 [facility] Work Phone: Start: 03-13-2023 End: 05-16-2023 Tobacco use and exposure User of smokeless tobacco [facility] Work Phone: Start: 06-23-2017 Gender identity Identifies as female gender (finding) [employer] Do you belong to any clubs or organizations such as christian groups, unions, fraternal or athletic groups, or school groups? Yes [facility] Tobacco Nicotine Use: Va ping Product in Last 90 Days. Type: Electronic Cigarettes (Vaping). [facility] Sex Assigned At Sex [facility] Start: 08-27-2024 End: 08-29-2024 Sex Female (finding) [facility] NEGATED: Highlighted row [facility] Medical Equipment Procedure Code Equipment Code Equipment Origin al Text Equipment Identifier Dates Fallopian tube clip/band ([id number] FDA Start: 03-10-2023 Goals Date Patient Goal Desired Activity /State Functional Status Date Assessment Result Facility 03-22-2024 Functional Status Up ad krish [facility] 03-22-2024 Functional Status Standard Safet y ID band on, Call device within reach, Bed in low position, Wheels locked [facility] 10-03-2023 Functional status Ambulates;Bath room Privilege [facility] Work Phone: 03-18-2023 Functional status Activity Abili ty Independent [facility] Work Phone: 12-29-2014 Are you deaf, or do you have serious difficulty hearing No 12/29/2014 12:30 PM EDT Bonnie Eduardo LPN No [facility] 12-29-2014 Are you blind, or do you have serious difficulty seeing, even when wearing glasses No 12/29/2014 12:30 PM EDT Bonnie Eduardo LPN No [facility] 12-29-2014 Do you have serious difficulty walking or climbing stairs No 12/29/2014 12:30 PM EDT Bonnie Eduardo LPN No [facility] 12-29-2014 Do you have difficul ty dressing or bathing No 12/29/2014 12:30 PM EDT Bonnie Eduardo LPN No [facility] 12-29-2014 Because of a physica l, mental, or emotional condition, do you have difficulty doing errands alone such as visiting a physician's office or shopping No 12/29/2014 12:30 PM EDT Bonnie Eduardo LPN No [facility] Functional observable [facility] Mental Status Date Assessment Result Facility 11-23-2024 Cognitive function Level Of Cons ciousness Awake;Alert;Appropriate;Fol lows Commands [facility] Work Phone: 03-22-2024 Mental Status Orientation Oriented x 4 [facility] 03-22-2024 Mental Status [facility] 10-03-2023 Cognitive function Light Pain [facility] Work Phone: 03-10-2023 Cognitive function Level Of Cons ciousness Follows Commands;Drowsy [facility] Work Phone: 01-23-2023 Cognitive function Voice/Name [facility] Work Phone: 10-14-2021 Cognitive functi ons [id number] [facility] 12-29-2014 Because of a physica l, mental, or emotional condition, do you have serious difficulty concentrating, remembering, or making decisions No 12/29/2014 12:30 PM EDT Bonnie Eduardo LPN No [facility] Clinical Notes 07-04-2016 to 01-03-2025 Note Date & Type Note Facility 01-03-2025 Progress note [facility] 01-03-2025 Progress note Note Date/Time January 03, 2025 3:56pm [facility] [address], [address] [place] [address] OFFICE VISIT Date of Service: 01/03/25 MR#: [id number] Acct: [id number] Name: QUE SANCHEZ Rep #: [id number] : 1990 Provider: TIM Roach Age/Sex: 34/F Location: [facility] Status: Signed Intake Vital Signs 11/23/24 20:23 01/03/25 15:35 Height 5 ft 6 in 5 ft 6 in Weight: 177 lb 4 oz BMI 28.5 BP 108/68 Intake Visit Reasons: Possible BV Chief Complaint: Possible BV Sqe Required: No Is patient in pain?: No [...] tablet 200 mg PO QDAY 01/03/2506/29 History prenat.vits,malgorzata,vqg-dbpd-npxfn tab PO 01/03/25 5 History zinc acetate [...] full term 7lbs 2oz Female 14 epidural [facility] Dr. Emilia Jung 09/07/10 Bridget 39 live - full term 7lbs 4oz Female 46 suzette rs [facility] Satya 07/12/12 Pj 38 live - full term 7lbs 6oz Male 4 hours [facility] Lilli Piña 07/15/16 Missy 37 live - full term 7lbs 8oz Male [address] [facility] Dr. Jurado 10/12/21 [place] 40 live - full term 8lbs 2oz [...] Cosigner Signature: Date (if applicable) CC: ~ [facility] Work Phone: 1(556) 846-727507-21-2025 Procedure note [facility] Medical Records Department [address] [place] [address] Procedure Report 12/20/24 1712 MR#: [id number] Acct: [id number] Name: QUE SANCHEZ Rep #:[id number] : 1990 34 From: Melissa Brasher DO PCP: Dr. Davide Chao MD Status:RE G CLI Location: RAD Problems Associated Problem List Diagnoses (1) Tubal reversal surgical follow up: Multi Select Codes Urinary/Genital Urinary/Genital CPT Codes: 42769 HSG/SIS Non-invasive Procedural Procedure Information Date of Procedure: 12/23/24 Pre-Procedure Diagnosis: tubal reversal follow up Post-Procedure Diagnosis: tubal reversal follow up Procedure Performed:: HSG envelope sealer operator: No Description of procedure: Operative details: Patient [...] Brasher DO; Dr. Davide Chao MD~ Signed [facility]07-18-2025 Evaluation note* Diagnosis Onset Date Resolution Status Admit Date Tubal reversal surgical foll ow up acute December 20, 2024 11:44am [facility] Work Phone: 1(641) 218-979607-18-2025 Evaluation note* Diagnosis Onset Date Resolution Status Admit Date Tubal reversal surgical foll ow up acute December 20, 2024 11:44am Amenorrhea acute January 03 3:30pm Vaginal odor acute January 03, 2025 3:30pm [facility] Services Work Phone: 1(635) 215-997007-18-2025 Radiology Diagnostic study note [facility] Imaging Services [address] [place] [address] Salpingogram MR#: [id number] Acct: [id number] Name: QUE SANCHEZ Rep #: [id number] : 1990 F 34 From: Andrés Sullivan MD PCP: Dr. Davide Chao MD Status: RE G CLI Study:Salpingogram Date of Exam: 5 Exam# [id number] Ordering Dr: Melissa Mcneill DO PROCEDURE: SALPINGOGRAM 12/20/2024 REASON FOR EXAM: HSG TECHNIQUE: SALPINGOGRAM COMPARISON: None FINDINGS: Hysterosalpingogram was performed by the baffle installer. Imaging was provided. Dose report: 21 seconds of fluoroscopy. 8.98 mGy. 2 images were submitted. The uterus is unremarkable. Both fallopian tubes are patent with free spill. RAD/Salpingogram IMPRESSION: Unremarkable hysterosalpingogram. Reading Location: [facility] CC: Dr. Melissa Brasher DO; Dr. Davide Chao MD ~ Machine Tracer: Signed [facility]06-21-2025 Radiology Diagnostic study note [facility] Imaging Services [address] [place] [id number] Chest PA and Lateral MR#: [id number] Acct: [id number] Name: QUE SANCHEZ Rep #: [id number] : 1990 F 34 From: Carolyne Vo MD PCP: Dr. Davide Chao MD Status: RE G ER Study:Chest PA and Lateral Date of Exam: 11/23/24 Exam# [id number] Ordering Dr: Ryan Pearson DO PROCEDURE: CHEST PA AND LATERAL 11/23/2024 REASON FOR EXAM: CHEST PAIN TECHNIQUE: CHEST PA AND LATERAL COMPARISON: Chest radiograph 05/08/2018. FINDINGS: Hardware: None. Heart: The heart size is normal. Mediastinum: The mediastinal contour is unremarkable. Lungs: No focal consolidation, pleural effusion or pneumothorax. Bones: The bones are unremarkable. RAD/Chest PA and Lateral IMPRESSION: NEGATIVE CHEST Reading Location: [id number] CC: Dr. Davide Chao MD; Dr. Ryan Pearson DO ~ Machine Tracer: Signed [facility]04-10-2025 Telephone encounter Note* Telephone Encounter - Omer Cowan RN - 09/12/2024 9:31 AM EDT Faxed US pelvic results to attn: Samara/nurse, [facility], per patient request. [facility]04-10-2025 Miscellaneous Notes* Telephone Encounter - Omer Cowan RN - 09/12/2024 9:31 AM EDT Faxed US pelvic results to attn: Samara/nurse, [facility], per patient request. documented in [facility]2025 NoteHNO ID: [id number] Author: LATONIA GRAY MD Service: ? Author Type: Physician Type: Progress Notes Filed: 09/11/2024 23:10 Note Text: The patient presents for requested ultrasound. Full report available in the Imaging tab in [facility]. Latonia Gray [facility]04-08-2025 History of Present illness Narrative* Latonia Gray MD - 09/10/2024 11:01 PM EDT The patient presents for requested ultrasound. Full report available in the Imaging tab in Epic. Latonia Gray MD documented [facility] History of Present illness Narrative* Marina Snell APRN.HERB DOCTOR - 09/05/2024 7:00 AM EDT Que Sanchez is a 34 year old female who presents for problem visit 2nd opinion uterine cyst/polyp HPI: Tubal reversal 08/29/2024 in [place] - brings records with her. Was previously told thatkiley had a cyst in her uterus but now sent message on portal from [employer] that she has a uterine polypthat should be removed as it could cause miscarriage. US report as below - indicates cyst. She doeshave known adenomyosis. She would like second opinion as she does would like to achieve and was told that it was most likely soon after tubal reversal. 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 Follow- up as needed. Marina Snell APRN.HERB DOCTOR Medical Decision Making: Problems: Moderate: New problem with uncertain prognosis Data: Unique source(s) for external note(s) reviewed: 2 Unique test result(s) reviewed: 2 Unique test(s) ordered: 1 Medical Decision Making Level: 4 - Moderate documented in this encounterSelect [facility]2025 NoteHNO ID: [id number] Author: MARINA SNELL APRN.CNP Service: ? Author Type: Nurse Practitioner Type: Progress Notes Filed: 09/05/2024 08:06 Note Text: Que Sanchez is a 34 year old female who presents for problem visit 2nd opinion uterine cyst/polyp HPI: Tubal reversal 08/29/2024 in [place] - brings records with her. Was previously told that she had a cyst in her uterus but now sent message on portal from [employer] that she has a uterine polyp that should be removed as it could cause miscarriage. US report as below - indicates cyst. She does have known adenomyosis. She would like second opinion as she does would like to achieve and was told that it was most likely soon after tubal reversal. 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 Davide Chao MD Status: RE G CLI Study:Pelvic w/ Transvaginal Date of Exam: 08/21/24 Exam# [id number] Ordering Dr: Melissa Mcneill DO EXAM: US [...] Brasher DO; Dr. Davide Chao MD ~ Machine Tracer: Signed [facility]03-17-2025 NotePap Smear Specimen AdequacyMarch 2024 11:59pmComment.Satisfactory for evaluation. Endocervical and/or squamous metaplasticcells (endocervical component)are present.[facility] A#[id number] HealthcareComment on above:Satisfactory for evaluation. Endocervical and/or squamous metaplasticcells (endocervical component)are present.08-19-2024 NotePap Smear Specimen AdequacyMarch 2024 11:59pmComment.Satisfactory for evaluation. Endocervical and/or squamous metaplasticcells (endocervical component)are present.[facility] A#[id number] HealthcareCommymichigan [facility] on above:Satisfactory for evaluation. Endocervical and/or squamous metaplasticcells (endocervical component)are present.08-19-2024 Evaluation note* Diagnosis Onset Date Resolution Status Admit Date Postcoital bleeding acute August 19, 2024 2:42pm [facility] Work Phone: 1(192) 491-908303-13-2025 Telephone encounter Note* Telephone Encounter - Natalie Turpin RN - 08/15/2024 4:10 PM EDT Pt called and is notified of providers results and instructions. Pt voices understanding. Natalie Turpin RN [facility]03-13-2025 Miscellaneous Notes* Telephone Encounter - Natalie Turpin [...] needs called with information documented in this encounterSelect [facility]-2025 Telephone encounter Note * Telephone Encounter - [...] iron and folate levels. Davide Chao MD [facility]03-12-2025 Telephone encounter Note* Telephone Encounter - Mamie Paul RN - 08/14/2024 3:32 PM EDT patient is calling in requesting results of lab work the was completed on 08/12. patient is also asking if she can get an order for iron and folic acid levels to be checked also. please review and advise patient needs called with information [facility]03-10-2025 Telephone encounter Note* Telephone Encounter - Vera Lewis MA - 08/12/2024 4:36 PM EDT See [employer] message. Not sure what this is. Wanted to follow up. Online it says I could be anemic or have low oxygen? Other tests are normal. I've been having issues with my breathing for about a week or so, but my meters never read below 96. Probably from vaping. Just wanted to check with you ! [facility]03-10-2025 Miscellaneous Notes* Telephone Encounter - Vera Lewis [...] check with you ! documented in this encounterSelect [facility]25 History of Present illness Narrative* Davide Chao [...] visit. Either the patient or their legal authorization representative has been informed of the risks and benefits of -- and alternatives to -- treatment through a remote evaluation andconsents to proceed with the evaluation remotely. Pt sent in a [employer] message back on 07/29/24 asking for a full blood work up due to having reverse tubal surgery in the next couple months. She wanted to make sure everything was normal with kidney, liver, and heart. Lab orders have been placed. BIBLE WORKER placed orders for other testing. Main concern [...] and works with her. Also has a Printer Assistant, which she feels the Printer Assistant is more helpful. Was started on Strattera [...] EGD LAPAROSCOPY SURG CHOLECYSTECTOMY 09/14/2009 LEEP PROCEDURE ([employer] DEPT)_*[place] 09/09/2015 SVT ABLATION 05/2015 procedure was [...] prn Davide Chao MD documented in this encounterSelect [facility]-2025 NoteHNO ID: [id number] Author: DAVIDE CHAO MD Service: ? Author [...] visit. Either the patient or their legal authorization representative has been informed of the risks and benefits of -- and alternatives to -- treatment through a remote evaluation and consents to proceed with the evaluation remotely. Pt sent in a Maxymiser message back on 07/29/24 asking for a full blood work up due to having reverse tubal surgery in the next couple months. She wanted to make sure everything was normal with kidney, liver, and heart. Lab orders have been placed. BIBLE WORKER placed orders for other testing. Main concern [...] and works with her. Also has a Printer Assistant, which she feels the Printer Assistant is more helpful. 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 Follows with Cardiology due to hx of arrhythmia, has taken Metoprolol 25 mg daily. No refills lately. She has talked to her psychiatric orderly about this but has not wanted to [...] EGD LAPAROSCOPY SURG CHOLECYSTECTOMY 09/14/2009 LEEP PROCEDURE (BIBLE WORKER DEPT)_*FL 09/09/2015 SVT ABLATION 05/2015 procedure was [...] Past Histories independently gathered by the clinical senior support analyst and the remaining scribed note accurately describes [...] PM. Vera Lewis MA documented in this encounterSelect [facility]25 NoteHNO ID: [id number] Author: DAVIDE CHAO MD Service: ? 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 Follows with Cardiology due to hx of arrhythmia, has taken Metoprolol 25 mg daily. No refills lately. She has talked to her psychiatric orderly about this but has not wanted to [...] EGD LAPAROSCOPY SURG CHOLECYSTECTOMY 09/14/2009 LEEP PROCEDURE (BIBLE WORKER DEPT)_*FL 09/09/2015 SVT ABLATION 05/2015 procedure was [...] No Known Problems Danegare (more content not included)...[facility]01-06-2025 Evaluation note* Diagnosis Onset Date Resolution Status Admit Date Inclusion cyst of vulva noneactive J anuary 2024 1:49pm Vaginal odor noneactive June 10, 2024 1:49pm Postcoital bleeding acute August 19, 2024 2:42pm [facility] Work Phone: [phone] History of Present illness Narrative* Davide Chao [...] office setting and agrees. Pt was at [facility] with complaints of chest pain. Pt was seen at the ED for complaints of chest pain, cardiac work up was negative. Pt wrote into the office asking for advice. Notes that she's beenchoking on every single meal that she eats for the last few weeks, but worse recently. Did some research on this issues. Hx of being diagnosed in [place] with eosinophilic esophagitis. Reports this has been [...] EGD LAPAROSCOPY SURG CHOLECYSTECTOMY 09/14/2009 LEEP PROCEDURE (BIBLE WORKER DEPT)_*FL 09/09/2015 SVT ABLATION 05/2015 procedure was [...] prn Davide Chao MD documented in this encounterSelect [facility]-2024 NoteHNO ID: [id number] Author: DAVIDE CHAO MD Service: ? Author [...] office setting and agrees. Pt was at [facility] with complaints of chest pain. Pt was seen at the ED for complaints of chest pain, cardiac work up was negative. Pt wrote into the office asking for advice. Notes that she's been choking on every single meal that she eats for the last few weeks, but worse recently. Did some research on this issues. Hx of being diagnosed in [place] with eosinophilic esophagitis. Reports this has been [...] EGD LAPAROSCOPY SURG CHOLECYSTECTOMY 09/14/2009 LEEP PROCEDURE (BIBLE WORKER DEPT)_*FL 09/09/2015 SVT ABLATION 05/2015 procedure was [...] daily. No current facility-administered (more content not included)...[facility]10-22-2024 Telephone encounter Note* Telephone Encounter - Yue Genao MA - 03/26/2024 10:26 AM EDT Pt has been notified that she needs to see an UTILITY DRIVER if appt is not available. PCP is out multiple daysthis month, with limited scheduling. After further review pt is scheduled for a VV Monday. Yue Genao MA [facility]10-22-2024 Miscellaneous Notes* Telephone Encounter - Yue Genao MA - 03/26/2024 10:26 AM EDT Pt has been notified that she needs to see an UTILITY DRIVER if appt is not available. PCP is [...] year. Yue Genao MA documented in this encounterSelect [facility]10-22-2024 Telephone encounter Note * Telephone Encounter - Yue Genao MA - 03/26/2024 9:39 AM EDT Advised pt that she needs an appt to discuss as this has not been discussed previously over the past year. Yue Genao MA [facility]10-18-2024 Hospital Discharge instructions Patient Education 03/22/2024 15:37:05 [...] Swelling, pain or redness in one leg [id number] [employer]. [address] [place] [address]. All rights reserved. This information is not intended as a substitute for professional medical care. Always follow yourhealthcare professional's instructions. Follow Up Care 03/22/2024 14:31:02 With:DAVIDE CHAO MD Address: [address] [place] [address]- When:2-4 days [facility] 10-18-2024 Telephone encounter Note* Telephone Encounter - Davide Chao MD - 03/22/2024 5:06 PM EDT Noted Davide Chao MD [facility]10-18-2024 Miscellaneous Notes* Telephone Encounter - Davide Chao MD - 03/22/2024 5:06 PM EDT Noted Davide Chao MD * Telephone Encounter - Latanya Tam LPN - 03/22/2024 1:32 PM EDT Pt. calling from [facility] Er with Chest pain wanting appt today with provider. Advised Pt. she should talk to the MD that she is seeing at the Er. She states they probably won't help me. I offered her Er follow up next week and refused. documented in this encounterSelect [facility]10-18-2024 NoteDischarge Instructions Discharge Summary [address] [address] [id number] 03/22/2024 Patient: QUE SANCHEZ Sex: Female : 1990 Age: 33y Thank you for visiting [facility]. You have been evaluated today by Antonette [...] Causes of Chest Pain Patient Signature Facility Trommel Tender Date/Time 1 of 4 Discharge Instructions General Instructions with ExitWriter [address] [address] [phone] 03/22/2024 Patient: QUE SANCHEZ Sex: Female : 1990 Age: 33y Thank you for visiting [facility]. You have been evaluated today by Antonette [...] pain or redness in one leg [address]10-18-2024 Note Discharge Instructions Thank you for allowing [facility] to assist you with your healthcare needs. The following is importantdischarge information regarding your hospital visit. What to Do Next Instructions from Your Care Team No qualifying data available. Post Acute Orders No qualifying data available. You Need to Schedule the Following Appointments Follow Up with DAVIDE CHAO MD When:Within 2-4 days Where:[address] [place] [address]- Allergies No Known Medication Allergies Medications Please [...] Swelling, pain or redness in one leg 1040-1048 [employer]. [address] [place] [address], [place] [address]. All rights reserved. This information is not intended as a substitute for professional medical care. Always follow yourhealthcare professional's instructions. Additional Information VACCINATE! IT SAVES LIVES! Members of the community who have not yet received the COVID-19 vaccine and would like to receive it can visit one of [facility] vaccine clinics. There are many vaccine clinic locations within the [facility]. For locations and available times, please visit [email or web address] It is important to note that some COVID mobile vaccine clinics are held outdoors and may be canceled in rainy or stormy conditions. To learn more about pediatric vaccinations (ages 5-11), we invite you to visit the [facility] webpage. [email or web address] [email or web address] learn more about the COVID-19 vaccine, we invite you to visit the CDC website for a list of frequently asked questions. https://www.cdc.gov/coronavirus/2019-ncov/vaccines/faq.html [facility] Patient Portal Access Instructions: Stay connected with your healthcare team and access your personal medical information anytime with the [facility] Patient Portal. If you would like a full copy of your medical records please contact the [facility] Medical Records Department Monday through Monday between 8a.m. and 4:30p.m. Please follow the directions below to access the portal: 1.Access the email account you provided upon registration to the hospital.2.Look for an invitation email from [facility].3.Open the email and access the invitation link: Accept Invitation to [facility]4.Fill in the required coughlin to create your account. Sign into [email or web address].[email or web address] with your username and password that you [...] you will allow to register on the [facility] Patient Portal for access to your information. You can also access the [facility] Patient Portal on the E-nterview shell. Simply click on Health Records under [employer]KO System and then click on the [facility] logo. [...] Call your local pharmacy or go to [email or web address] to find one close to you.3.Make use of household items: Use cat litter or old coffee grounds to dispose medications if other options arenot available. Mix your drugs with these household products, seal them in an airtight container andthrow it into the garbage. Call [facility]: [phone] to be sure your drugs can be [...] aware that I should contact my doctor. Patient/Trommel Tender Signature: Date/Time: Relationship to Patient: Witness Name/Signature: Date/Time: [facility]10-18-2024 NoteSinus rhythm Electronic Signature: RAMON PULLIAM MD 03/22/2024 15:00:23[facility] 10-18-2024 Telephone encounter Note* Telephone Encounter - Latanya Tam LPN - 03/22/2024 1:32 PM EDT Pt. calling from [facility] Er with Chest pain wanting appt today with provider. Advised Pt. she should talk to the MD that she is seeing at the Er. She states they probably won't help me. I offered her Er follow up next week and refused. [facility] Work Phone: [phone] Miscellaneous Notes* Telephone Encounter - Harini Rock [...] days. Fiordaliza Sims RN documented in this encounterSelect Medical Specialty [facility]07-29-2024 Telephone encounter Note * Telephone Encounter - [...] was identified. 01/01/2024 by Harini Rock APRN.CNP [facility]-25-2024 Telephone encounter Note* Telephone Encounter - Fiordaliza [...] up to 30 days. Fiordaliza Sims, RN [facility]07-05-2024 History of Present illness Narrative* Davide Chao [...] visit. Either the patient or their legal authorization representative has been informed of the risks and benefits of -- and alternatives to -- treatment through a remote evaluation andconsents to proceed with the evaluation remotely. Pt completing a virtual visit today. , last name is now Malgorzata. Would prefer to leave Keller listed as this is what her insurance [...] from Cardiology, but doesn't have refills. Uses [facility]. Past medical history, appointments, medications, allergies reviewed. [...] EGD LAPAROSCOPY SURG CHOLECYSTECTOMY 09/14/2009 LEEP PROCEDURE (BIBLE WORKER DEPT)_*FL 09/09/2015 SVT ABLATION 05/2015 procedure was [...] Past Histories independently gathered by the clinical senior support analyst and the remaining scribed note accurately describes my personal service to the patient. Davide Chao MD The documentation for this note was completed by Yue Genao MA acting as scribe for Davide Chao MD. December 08, 2023 1:28 PM. Yue Genao MA documented in this encounterSelect Medical [facility]ty [facility]07-05-2024 NoteHNO ID: [id number] Author: DAVIDE CHAO MD Service: ? Author [...] visit. Either the patient or their legal authorization representative has been informed of the risks [...] from Cardiology, but doesn't have refills. Uses [facility]. Past medical history, appointments, medications, allergies reviewed. [...] EGD LAPAROSCOPY SURG CHOLECYSTECTOMY 09/14/2009 LEEP PROCEDURE (BIBLE WORKER DEPT)_*FL 09/09/2015 SVT ABLATION 05/2015 procedure was [...] (NEURONTIN) 300 mg c (more content not included)...[facility]05-[facility] History of Present illness Narrative* [place]brock, Davide [...] visit. Either the patient or their legal authorization representative has been informed of the risks [...] 16. Cardio - Has been following with [facility] for near syncope and tachycardia. Was [...] EGD LAPAROSCOPY SURG CHOLECYSTECTOMY 09/14/2009 LEEP PROCEDURE (BIBLE WORKER DEPT)_*FL 09/09/2015 SVT ABLATION 05/2015 procedure was [...] 10/17/2023 2.29 Monocytes % 10/17/2023 6.5 Abs [place] 10/17/2023 0.62 Eosinophils % 10/17/2023 2.8 Abs [...] prn Davide Chao MD documented in this encounterSelect Medical Specialty [facility]05-31-2024 NoteHNO ID: [id number] Author: DAVIDE CHAO MD Service: ? Author [...] visit. Either the patient or their legal authorization representative has been informed of the risks [...] 16. Cardio - Has been following with [facility] for near syncope and tachycardia. Was [...] EGD LAPAROSCOPY SURG CHOLECYSTECTOMY 09/14/2009 LEEP PROCEDURE (BIBLE WORKER DEPT)_*FL 09/09/2015 SVT ABLATION 05/2015 procedure was [...] not taking: Reported on (more content not included)...[facility]05-30-2024 Telephone encounter Note* Telephone Encounter - Harini Rock APRN.CNP - 11/02/2023 7:24 AM EDT The following approved medication requests have been transmitted electronically. Requested Prescriptions Pending Prescriptions Disp Refills valACYclovir (VALTREX) 500 mg tablet 30 tablet 5 Sig: Take 1 tablet by mouth once daily. Harini Rock APRN.CNP [facility]05-30-2024 Miscellaneous Notes* Telephone Encounter - Harini Rock APRN.CNP - 11/02/2023 7:24 AM EDT The following approved medication requests have been transmitted electronically. Requested Prescriptions Pending Prescriptions Disp Refills valACYclovir (VALTREX) 500 mg tablet 30 tablet 5 Sig: Take 1 tablet by mouth once daily. Harini Rock APRN.HERB DOCTOR * Telephone Encounter - Judy Tapia LPN -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 normal, and she is uncertain of [...] she was treated one month ago at [facility] emergency room for a urinary tract infection. [...] ation of other contraceptive measures 06/08/2011 03/28/2013 [facility] HIGH RISK NEC [V23.89] 05/25/2010 06/08/2011 Supervision of other high-ri sk (V23.89) 02/19/2008 02/25/2008 documented as of this encounter (statuses as of 01/31/2023) [facility] History of Past illness Narrative* Problem Noted [...] states that her last menstrual period was evidence technician than normal, and she is uncertain of [...] she was treated one month ago at [facility] emergency room for a urinary tract infection. [...] of this encounter (statuses as of 03/28/2023) [facility] History of Past illness Narrative* Problem Noted Date Diagnosed Date Resolved Date Uterine size-date discrepancy 07/04/2016 08/10/2016 Overview: July 04, 2016 [facility] ordered Yuri Crenshaw MD Tobacco [...] states that her last menstrual period was evidence technician than normal, and she is uncertain of [...] she was treated one month ago at [facility] emergency room for a urinary tract infection. [...] of this encounter (statuses as of 04/08/2023) [facility] History of Past illness Narrative* Problem Noted [...] states that her last menstrual period was evidence technician than normal, and she is uncertain of [...] she was treated one month ago at [facility] emergency room for a urinary tract infection. [...] of this encounter (statuses as of 05/09/2023) [facility] History of Past illness Narrative* Problem Noted [...] states that her last menstrual period was evidence technician than normal, and she is uncertain of [...] she was treated one month ago at [facility] emergency room for a urinary tract infection. [...] ation of other contraceptive measures 06/08/2011 03/28/2013 [facility] [V23.89] 05/25/2010 06/08/2011 Supervision of other high-ri sk (V23.89) 02/19/2008 02/25/2008 documented as of this encounter (statuses as of 07/11/2023) [facility] History of Past illness Narrative* Problem Noted Date Diagnosed Date Resolved Date Uterine size-date discrepancy 07/04/2016 08/10/2016 Overview: July 04, 2016 [facility] ordered Yuri Crenshaw MD Tobacco [...] states that her last menstrual period was evidence technician than normal, and she is uncertain of [...] she was treated one month ago at [facility] emergency room for a urinary tract infection. [...] of this encounter (statuses as of 08/10/2023) [facility] History of Past illness Narrative* Problem Noted Date Diagnosed Date Resolved Date Uterine size-date discrepancy 07/04/2016 08/10/2016 Overview: July 04, 2016 [facility] ordered Yuri Crenshaw MD Tobacco [...] states that her last menstrual period was evidence technician than normal, and she is uncertain of [...] she was treated one month ago at [facility] emergency room for a urinary tract infection. [...] of this encounter (statuses as of 08/11/2023) [facility] Author Melissa Saxena [facility] October 03, 2023 7:26am Note Date/Time October 03, 2023 7:2 6am [facility] Medical Records Department [address] [place] [address] Instructions for Home/Discharge Instructions 10/03/23 0726 MR#: [id number] Acct: [id number] Name: QUE BAILEY Rep #:[id number] : 1990 33 From: Melissa Brasher DO PCP: Dr. Davide Chao MD Status:RE G [facility] Discharge Instructions Diet Discharge Diet: No [...] Up With: Melissa Brasher DO When: Call [phone] to schedule appointment. Test Results: Test results [...] CC: Dr. Davide Chao MD ~ Signed [facility] Work Phone: Evaluation + Plan note No data available for this section [facility] Evaluation note* Diagnosis Right sided weakness- Primary documented in this encounter [facility] note* Diagnosis Left against medical advice- Primary Blurred vision Other specified visual disturbances documented in this encounter [facility] note* Diagnosis Palpitations- Primary documented in this encounter [facility] note* Cardiovascular: S1 S2 RRR, no murmursExtremities: no calf tenderness, reflexes 2+Constitutional: alert, orientedRespiratory/Thorax: normal respiratory effort, lungs clear, no wheezes or rhonchi [facility]* Diagnosis Non-recurrent acute suppurative otitis media of left ear without spontaneous rupture of tympanic membrane- Primary documented in this encounter [facility] note* Diagnosis Anxiety Anxiety state, unspecified documented in this encounter [facility] note* Diagnosis Anxiety with depression- Primary documented in this encounter [facility] note* Diagnosis Chronic insomnia- Primary Insomnia, unspecified Anxiety with depression Gastritis without bleeding, unspecified chronicity, unspecified gastritis type documented in this encounter [facility] note* Diagnosis Back strain, initial encounter- Primary documented in this encounter [employer] Phone: evaluation note* Diagnosis Acute bilateral low back pain with right-sided sciatica , unspecified gestational age documented in this encounter [employer] Phone: evaluation note* Diagnosis , unspecified gestational age documented in this encounter [employer] Phone: evaluation noteNo assessment information available [facility] Work Phone: Evaluation note* Diagnosis Onset Date Resolution Status Depression affecting acute Herpes simplex infection during , antepartum acute [id number] acute History of pre-eclampsia acu te acute Rh negative status during acute Spotting acute Supervision of high risk , antepartum acute [facility] Work Phone: Evaluation note* Diagnosis Onset Date Resolution Status Depression affecting acute Herpes simplex infection during , antepartum acute [id number] acute History of pre-eclampsia acu te acute Rh negative status during acute Spotting acute Supervision of high risk , antepartum acute Depression affecting acute Herpes simplex infection during , antepartum acute [id number] acute History of pre-eclampsia acu te acute Rh negative status during acute Spotting acute Supervision of high risk , antepartum acute [facility] Work Phone: Evaluation note* Diagnosis History of PSVT (paroxysmal supraventricular tachycardia)- Primary Personal history of other diseases of circulatory system Chronic bilateral low back pain with left-sided sciatica documented in this encounter [facility] [facility] Diagnosis Tachycardia Tachycardia, unspecified Near syncope Syncope and collapse Dizziness and giddiness [facility] Diagnosis Onset Date Resolution Status Depression affecting acute Herpes simplex infection during , antepartum acute [id number] acute History of pre-eclampsia acu te acute Rh negative status during acute Spotting acute Supervision of high risk , antepartum acute Depression affecting acute Herpes simplex infection during , antepartum acute [id number] acute History of pre-eclampsia acu te acute Rh negative status during acute Spotting acute Supervision of high risk , antepartum acute Depression affecting acute Herpes simplex infection during , antepartum acute [id number] acute History of pre-eclampsia acu te acute Rh negative status during acute Spotting acute Supervision of high risk , antepartum acute [facility] Work Phone: Evaluation note* Diagnosis Onset Date Resolution Status Depression affecting acute Herpes simplex infection during , antepartum acute [id number] acute History of pre-eclampsia acu te acute Rh negative status during acute Spotting acute Supervision of high risk , antepartum acute Depression affecting acute Herpes simplex infection during , antepartum acute [id number] acute History of pre-eclampsia acu te acute Rh negative status during acute Spotting acute Supervision of high risk , antepartum acute Rh negative status during acute Depression affecting acute Herpes simplex infection during , antepartum acute [id number] acute History of pre-eclampsia acu te acute Rh negative status during acute Spotting acute Supervision of high risk , antepartum acute Chronic headache chronic Arthritis pain, hip acute Depression affecting acute Herpes simplex infection during , antepartum acute [id number] acute History of pre-eclampsia acu te acute Rh negative status during acute Sciatic leg pain acute Supervision of high risk , antepartum acute Chronic headache chronic Abnormal glucose acute Back pain acute Depression affecting acute Herpes simplex infection during , antepartum acute [id number] acute History of pre-eclampsia acu te acute Rh negative status during acute Supervision of high risk , antepartum acute Vaginal discharge during acute Chronic headache chronic UTI in acute [facility] Work Phone: Evaluation note* Diagnosis STD (sexually transmitted disease)- Primary Venereal disease, unspecified [facility] Diagnosis Onset Date Resolution Status Depression affecting acute Herpes simplex infection during , antepartum acute [id number] acute History of pre-eclampsia acu te acute Rh negative status during acute Spotting acute Supervision of high risk , antepartum acute Rh negative status during acute Depression affecting acute Herpes simplex infection during , antepartum acute [id number] acute History of pre-eclampsia acu te acute Rh negative status during acute Spotting acute Supervision of high risk , antepartum acute Chronic headache chronic Arthritis pain, hip acute Depression affecting acute Herpes simplex infection during , antepartum acute [id number] acute History of pre-eclampsia acu te acute Rh negative status during acute Sciatic leg pain acute Supervision of high risk , antepartum acute Chronic headache chronic Abnormal glucose acute Back pain acute Depression affecting acute Herpes simplex infection during , antepartum acute [id number] acute History of pre-eclampsia acu te acute Rh negative status during acute Supervision of high risk , antepartum acute Vaginal discharge during acute Chronic headache chronic UTI in acute [facility] Work Phone: Evaluation note* Diagnosis Onset Date Resolution Status Depression affecting acute Herpes simplex infection during , antepartum acute [id number] acute History of pre-eclampsia acu te acute Rh negative status during acute Spotting acute Supervision of high risk , antepartum acute Rh negative status during acute Depression affecting acute Herpes simplex infection during , antepartum acute [id number] acute History of pre-eclampsia acu te acute Rh negative status during acute Spotting acute Supervision of high risk , antepartum acute Chronic headache chronic Arthritis pain, hip acute Depression affecting acute Herpes simplex infection during , antepartum acute [id number] acute History of pre-eclampsia acu te acute Rh negative status during acute Sciatic leg pain acute Supervision of high risk , antepartum acute Chronic headache chronic Abnormal glucose acute Back pain acute Depression affecting acute Herpes simplex infection during , antepartum acute [id number] acute History of pre-eclampsia acu te acute [...] Herpes simplex infection during , antepartum acute [id number] acute History of pre-eclampsia acu te Hx [...] Herpes simplex infection during , antepartum acute [id number] acute History of pre-eclampsia acu te Hx of cholecystectomy acute Hypokalemia acute acute Pruritus of acute Rh negative status during acute Sciatic leg pain acute Spotting acute Supervision of high risk , antepartum acute Vaginal discharge during acute Chronic headache [facility] Work Phone: Evaluation note* Diagnosis Onset Date Resolution Status Rh negative status during acute Depression affecting acute Herpes simplex infection during , antepartum acute [id number] acute History of pre-eclampsia acu te acute Rh negative status during acute Spotting acute Supervision of high risk , antepartum acute Chronic headache chronic Arthritis pain, hip acute Depression affecting acute Herpes simplex infection during , antepartum acute [id number] acute History of pre-eclampsia acu te acute Rh negative status during acute Sciatic leg pain acute Supervision of high risk , antepartum acute Chronic headache chronic Abnormal glucose acute Back pain acute Depression affecting acute Herpes simplex infection during , antepartum acute [id number] acute History of pre-eclampsia acu te acute [...] Herpes simplex infection during , antepartum acute [id number] acute History of pre-eclampsia acu te Hx [...] Herpes simplex infection during , antepartum acute [id number] acute History of pre-eclampsia acu te Hx of cholecystectomy acute Hypokalemia acute acute Pruritus of acute Rh negative status during acute Sciatic leg pain acute Spotting acute Supervision of high risk , antepartum acute Vaginal discharge during acute Chronic headache [facility] Work Phone: Evaluation note* Diagnosis Onset Date Resolution Status Rh negative status during acute Depression affecting acute Herpes simplex infection during , antepartum acute [id number] acute History of pre-eclampsia acu te acute Rh negative status during acute Supervision of high risk , antepartum acute Chronic headache chronic Spotting resolved Depression affecting acute Herpes simplex infection during , antepartum acute [id number] acute History of pre-eclampsia acu te acute Rh negative status during acute Supervision of high risk , antepartum acute Chronic headache chronic Arthritis pain, hip resolved Sciatic leg pain resolved Abnormal glucose acute Depression affecting acute Herpes simplex infection during , antepartum acute [id number] acute History of pre-eclampsia acu te acute [...] Herpes simplex infection during , antepartum acute [id number] acute History of pre-eclampsia acu te acute [...] Herpes simplex infection during , antepartum acute [id number] acute History of pre-eclampsia acu te acute [...] Herpes simplex infection during , antepartum acute [id number] acute History of pre-eclampsia acu te acute Rh negative status during acute Social discord acute Sterilization acute Supervision of high risk , antepartum acute Chronic headache chronic Hypokalemia resolved Pruritus of resolv ed [facility] Work Phone: Evaluation note* Diagnosis Hypertension, unspecified type- Primary induced hypertension, antepartum Transient hypertension of , antepartum documented in this encounter [facility] Work Phone: Evaluation note* Diagnosis Onset Date Resolution Status Chronic headache resolved Depression affecting resolved Herpes simplex infection during , antepartum resolved [id number] resolved History of pre-eclampsia res olved resolved Rh negative status during resolved Spotting resolved Supervision of high risk , antepartum resolved Arthritis pain, hip resolved Chronic headache resolved Depression affecting resolved Herpes simplex infection during , antepartum resolved [id number] resolved History of pre-eclampsia res olved resolved Rh negative status during resolved Sciatic leg pain resolved Supervision of high risk , antepartum resolved Abnormal glucose resolved Back pain resolved Chronic headache resolved Depression affecting resolved Herpes simplex infection during , antepartum resolved [id number] resolved History of pre-eclampsia res olved resolved [...] Herpes simplex infection during , antepartum resolved [id number] resolved History of pre-eclampsia res olved Hypokalemia [...] Herpes simplex infection during , antepartum resolved [id number] resolved History of pre-eclampsia res olved Hypokalemia resolved resolved Pruritus of resolv ed Rh negative status during resolved Sciatic leg pain resolved Spotting resolved Supervision of high risk , antepartum resolved Vaginal discharge during resolved Abnormal glucose resolved Chlamydia infection affecting resolved Chronic headache resolved Depression affecting resolved Elevated bilirubin resolved Herpes simplex infection during , antepartum resolved [id number] resolved History of pre-eclampsia res olved Hypokalemia resolved resolved Pruritus of resolv ed Rh negative status during resolved Social discord resolved Sterilization resolved Supervision of high risk , antepartum resolved False labor after 37 completed weeks of gestation resolved Abnormal glucose resolved Chlamydia infection affecting resolved Chronic headache resolved Depression affecting resolved Elevated bilirubin resolved Herpes simplex infection during , antepartum resolved [id number] resolved History of pre-eclampsia res olved resolved Rh negative status during resolved Social discord resolved Sterilization resolved Supervision of high risk , antepartum resolved Abnormal glucose resolved Chlamydia infection affecting resolved Chronic headache resolved Depression affecting resolved Elevated bilirubin resolved Herpes simplex infection during , antepartum resolved [id number] resolved History of pre-eclampsia res olved resolved Rh negative status during resolved Social discord resolved Sterilization resolved Supervision of high risk , antepartum resolved Status post tubal ligation a cute Abnormal glucose resolved Chlamydia infection affecting resolved Chronic headache resolved Depression affecting resolved Elevated bilirubin resolved Herpes simplex infection during , antepartum resolved [id number] resolved History of pre-eclampsia res olved resolved Rh negative status during resolved Social discord resolved Sterilization resolved Supervision of high risk , antepartum resolved Vaginal delivery resolved Anxiety acute Depression acute Headache acute Status post tubal ligation a [facility] Work Phone: Evaluation note* Diagnosis Anxiety with depression- Primary Bilateral leg edema Edema Anemia, unspecified type Elevated liver function tests Other abnormal blood chemistry documented [facility] this [facility]* Diagnosis Lower abdominal pain, unspecified Antepartum hemorrhage, unspecified, second trimester Maternal care for other rhesus isoimmunization, second trimester, not applicable or unspecified 21 weeks gestation of documented in this encounter [facility] Work Phone: Evaluation note* Diagnosis Anxiety Anxiety state, unspecified documented in this [facility]* Diagnosis Near syncope Syncope and collapse Tachycardia Tachycardia, unspecified [facility] Diagnosis Vaginal bleeding- Primary Other specified noninflammatory disorder of vagina documented in this encounter [facility] Work Phone: Evaluation note* Diagnosis Near syncope- Primary Syncope and collapse [facility] Diagnosis Onset Date Resolution Status Abnormal glucose resolved Chlamydia infection affecting resolved Chronic headache resolved Depression affecting resolved Elevated bilirubin resolved Herpes simplex infection dur ing , antepartum resolved [id number] resolved History of pre-eclampsia res olved resolved Rh negative status during resolved Social discord resolved Sterilization resolved Supervision of high risk , antepartum resolved Abnormal glucose resolved Chlamydia infection affecting resolved Chronic headache resolved Depression affecting resolved Elevated bilirubin resolved Herpes simplex infection dur ing , antepartum resolved [id number] resolved History of pre-eclampsia res olved resolved Rh negative status during resolved Social discord resolved Sterilization resolved Supervision of high risk , antepartum resolved Abnormal glucose resolved Chlamydia infection affecting resolved Chronic headache resolved Depression affecting resolved Elevated bilirubin resolved Herpes simplex infection dur ing , antepartum resolved [id number] resolved History of pre-eclampsia res olved resolved Rh negative status during resolved Social discord resolved Sterilization resolved Supervision of high risk , antepartum resolved Vaginal delivery resolved Anxiety acute Depression acute Headache acute Menorrhagia with irregular cycle acute Possible exposure to STD non eactive Vaginal odor noneactive [facility] Work Phone: Evaluation note* Diagnosis 16 weeks gestation of state, incidental Encounter for supervision of other normal in first trimester History of herpes genitalis Personal history of other infectious and parasitic disease Anxiety Anxiety state, unspecified [facility] Diagnosis Onset Date Resolution Status Menorrhagia with irregular cycle acute Possible exposure to STD non eactive Vaginal odor noneactive [facility] Work Phone: Evaluation note* Diagnosis Viral syndrome- Primary Unspecified viral infection, in conditions classified elsewhere and of unspecified site Urinary frequency documented in [facility] Diagnosis Fibromyalgia Mylagia and myositis, unspecified documented [facility] Diagnosis Onset Date Resolution Status Menorrhagia with irregular cycle acute Possible exposure to STD non eactive Vaginal odor noneactive Menorrhagia with irregular cycle acute Menorrhagia with irregular cycle acute [facility] Work Phone: Evaluation note* Diagnosis Near syncope- Primary Syncope and collapse documented in [facility] Diagnosis 16 weeks gestation of state, incidental Encounter for supervision of other normal in first trimester History of herpes genitalis Personal history of other infectious and parasitic disease documented in this [facility]* Diagnosis Fibromyalgia- Primary Mylagia and myositis, unspecified Anxiety with depression Near syncope Syncope and collapse URI, acute Acute upper respiratory infections of unspecified site [facility] Diagnosis Anxiety with depression- Primary documented in this [facility]* Diagnosis Anxiety with depression documented in this [facility]* Diagnosis Eosinophilic esophagitis- Primary Anxiety with depression Dysphagia, unspecified type [facility]* Diagnosis Anxiety- Primary Anxiety state, unspecified Elevated blood pressure reading without diagnosis of hypertension ADHD (attention deficit hyperactivity disorder), combined type Attention deficit disorder with hyperactivity documented in this [facility]* Diagnosis Elevated blood pressure reading without diagnosis of hypertension- Primary Fibromyalgia Mylagia and myositis, unspecified Anxiety with depression ADHD (attention deficit hyperactivity disorder), combined type Attention deficit disorder with hyperactivity documented in this [facility]* Diagnosis Fatigue, unspecified type- Primary documented in this [facility]* Diagnosis Uterine cyst- Primary Other specified disorders of uterus, not elsewhere classified Adenomyosis of uterus [facility]* Diagnosis Uterine cyst- Primary Other specified disorders of uterus, not elsewhere classified Adenomyosis of uterus Paratubal cyst Other noninflammatory disorder of ovary, fallopian tube, and broad ligament Intramural uterine fibroid documented in this encounter [facility] Author Melissa Saxena [facility] October 03, 2023 7:25am Note Date/Time October 03, 2023 7:2 6am [facility] Medical Records Department [address] [place] [address] History & Physical Exam 10/03/23 0724 MR#: [id number] Acct: [id number] Name: QUE BAILEY Rep #:[id number] : 1990 33 From: Melissa Brasher DO PCP: Dr. Davide Chao MD Status:[facility] Location: [place] [address] History and Physical Date of Admission: 10/03/23 Intake Vital Signs 06/28/2412:38 09/04/2407:12 09/04/2407:14 Height 5 ft 6 in 5 ft 6 in 5 ft 6 in Weight: 175 lb BMI 28.2 BP 94/65 Intake Visit Reasons: Surgical consult/AUB Sqe Required: No Is patient in pain?: No [...] new BF. The ex is now in intermediate and looking at 5 years in correction. ultrasound shows the following: TECHNIQUE: Transabdominal and [...] full term 7lbs 2oz Female 14 epidural [facility] Dr. Emilia Jung 09/07/10 Bridget 39 live - full term 7lbs 4oz Female 46 hours [facility] Satya 07/12/12 Pj 38 live - full term 7lbs 6oz Male 4 hours [facility] Lilli Piña 07/15/16 Missy 37 live - full term 7lbs 8oz Male 1 [address] [facility] [address]. Jurado 10/12/21 [place] 40 live - full term 8lbs 2oz Male [place] [address] Rueda Will Delivery Date: 02/23/08 Last [...] Brasher DO; Dr. Davide Chao MD~ Signed [facility] Work Phone: History of Present illness Narrative* [...] other systems reviewed and negative for complaint [address] Work Phone: History of Present illness Narrative* arrives to outpatient PT c/o . Pt presents with the following impairments: . These impairments contribute to difficulty in activity limitations and participation restrictions including . Thept s signs and symptoms are consistent with likely . The pt will benefit from skilled PT bamfehqj8g/week for 8 weeks to address the above stated impairments and functional limitations to maximize p articipation and ease in household, social, and work related activities. The pt has a prognosis when considering positive factors including with barriers such as . The pt verbalized understanding and agreement to goals and POC. Thank you for this referral and please call [phone] with any questions or concerns. * Clinical Presentation: Stable and/or uncomplicated characteristics. * Level of Complexity: low [facility] Work Phone: History of Present illness NarrativePatient confirmed name and date of . Patient was encouraged to mildly engage TrA contraction secondary to , focusing on core control with LE/UE exercises. No increase in pain with UE/LEexercises and reduced pain with unloading. Reviewed Kegel exercises with patient. [facility] Work Phone: Hospital Discharge instructions* Activity:Return to [...] go to nearestemergency room. *Information obtained from [facility] s: Save Your Life: Get Care for [...] pad in <1hr, egg sized blood clots) [place]-sized blood clots are normal Bright red for [...] laxative without results, contact your doctor or technical laboratory asst Activity No pushing, pulling, or lifting anything [...] have questions about Any difficulty please call [phone] to speak with a direct response consultant.Please join our mom'ssupport group, which is the second Monday of every month from [phone] in the Birthing & Women's Unit, 4th floor [facility]. No registration required.Thank you for choosing [facility]. [facility]* Attachments The following attachments cannot be sent through Care Everywhere. * Back: Strain (Tunisian) [facility] Work [facility]: Hospital Discharge instructions Additional Instructions Follow up with [facility] on February 02 as previously scheduled. You have an appointment for a surgical consultation with Dr. Morales on February 01 at 9:45am. His office is located in the Outpatient Pavilion at [address] [place] [address], [address]. Eat potassium-rich foods when able. A prescription for a potassium supplement will be sent to your pharmacy.[facility] Work Phone: Hospital Discharge instructions Additional Instructions EKG normal your labs troponin negative. Your thyroid levels normal. Use your home Zofran as needed. Tylenol Motrin as needed. Follow-up with cardiology with your history of A-fib and ablation in the past. If you develop any recurrent worsening symptoms, return to ED for reevaluation.[facility] Work Phone: Instructions* Attachments The following attachments cannot be sent through Care Everywhere. * Otitis Media (Tunisian) documented in this encounterOhioHealthReason for referral (narrative)* Consultation (Routine) - Pending Review Specialty Diagnoses / Procedures Referred By Elder merritt Referred To Contact Obstetrics and Gynecology Procedures [place] OFFICE/OUTPATIENT NEW HIGH MDM 60-74 MINUTES Cheyanne Izaguirre, [address] [place] [address] Referral ID Status Reason Start Date Expiration Date Visits Requested Visits Authorized [id number] Pending Review Specialty Services Required 03/13/2023 09/09/2023 1 1 [facility] Work Phone: Reason for referral (narrative)No reason for referral information availableWGrand [facility] Work Phone: Reason for visit Narrative* Initial Evaluation . Low back pain/Neck pain. * Referred by: Davide Chao MD [facility] Work Phone: Reason for visit Narrative* Diagnostic Procedure Only (Routine) - Closed Specialty Diagnoses / Procedures Referred By Elder merritt Referred To Contact [facility] Diagnoses Uterine cyst Adenomyosis of uterus Procedures PELVIC US WHI US PELVIC NONOBSTETRIC REAL-TIME IMAGE COMPLETE Marina Snell, POULTRY CULLER.HERB DOCTOR [address] [place] [address] Phone: tel: fax: [facility] [address] [place] [address] Referral ID Status Reason Start Date Expiration Date V isits Requested Visits Authorized [id number] Closed Auto-Generate d Referral 09/05/2024 09/05/2025 1 1 [facility] Summary Purpose Family History Unknown Family Member [...] Documents on File Type Date Recorded Patient Trommel Tender Expl anation Advance Directives and Livin g Will 09/01/2018 5:16 PM Documents on File Type Date Recorded Patient Trommel Tender Expl anation Advance Directives and Livin g Will 09/01/2018 5:16 PM Latest Code Status on File Code Status Date Activated Date Inactivated Comments Full Code - Unverified 09/26/2020 8:24 PM 09/26/2020 10: 50 PM Documents on File Type Date Recorded Patient Trommel Tender Expl anation Advance Directives and Livin g Will 09/27/2020 5:16 PM Documents on File Type Date Recorded Patient Trommel Tender Expl anation Advance Directives and Livin g Will 05/17/2021 1:51 PM Latest Code Status on File Code Status Date Activated Date Inactivated Comments Full Code - Unverified 09/26/2020 8:24 PM 09/26/2020 10: 50 PM Documents on File Type Date Recorded Patient Trommel Tender Expl anation Advance Directive(s) Advance Directive(s) 10/17/2018 [...] No September 25, 2020 3:03pm Power of Project Inspector No September 25 3:03pm Advance Directive Response Recorded Date/ Time Advance Directives No July 2:22am Living Will No September 25, 2020 4:03pm Power of Project Inspector No September 25 4:03pm Advance Directive Response Recorded Date/ Time Advance Directives No July 2:22am Living Will No January 23 3 9:45pm Power of Project Inspector No January 23, 2 023 9:45pm Advance Directive Response Recorded Date/ Time Advance Directives No July 2:22am Living Will No March 09 3 5:42pm Power of Project Inspector No March 09, 2 023 5:42pm Advance Directive Response Recorded Date/ Time Advance Directives No July 1:22am Living Will No March 09 3 4:42pm Power of Project Inspector No March 09, 2 023 4:42pm Advance Directive Response Recorded Date/ Time Advance Directives No July 2:22am Living Will No September 21, 2023 8:57am Power of Project Inspector No September 20 8:57am Advance Directive Response Recorded Date/ Time Advance Directives No April 10:08am Advance Directive Response Recorded Date/ Time Do you have a Healthcare Power of Project Inspector? No November 23, 2024 8:22pm Advance Directives No April 10:08am Discharge Instructions * Instructions* Davide Marion PA-C - 09/01/2018 THE UROLOGIST AT [facility] STATES THAT YOUR KIDNEY STONE IS JUST ABOVE THE LEVEL OF YOUR URINARY BLADDER AND SHOULD PASS IN THE NEAR FUTURE. IF YOU ARE STILL EXPERIENCING SYMPTOMS ON MONDAY MORNING YOU MUST CONTACT YOUR UROLOGIST AT [facility]. OUR UROLOGIST ALSO STATES THAT YOU SHOULD RETURN TO THE EMERGENCY DEPARTMENT IF YOU DEVELOP A FEVER. YOU SHOULD TAKE YOUR TEMPERATURE AT HOME ON A REGULAR BASIS TO SEE IF YOU ARE DEVELOPING A FEVER THAT YOU MAY NOT NOTICE. * Attachments The following attachments cannot be sent through Care Everywhere. * Kidney Stone (Tunisian) in this encounter Assessments Diagnosis Kidney stone on left side- Primary Diagnosis Cervical pain- Primary Cervicalgia Reason for Referral Status Reason Specialty Diagnoses / Procedures Referred By Contact Referred To Contact Authorized Neurosurgery Diagnoses Cervical pain Davide Chao MD [address] [place] [phone] [facility] [address] [place] [address] Specialty Diagnoses / Procedures Referred By Contac t Referred To Contact Cardiology Diagnoses Palpitations Procedures Extended Holter Monitor (3-7 days) Yuri Palencia MD [address] [place] [phone] Referral ID Status Reason Start Date Expiration Date Visits Re quested Visits Authorized [id number] Closed 05/17/2021 05/17/2022 1 1 Specialty Diagnoses / Procedures Referred By Contac t Referred To Contact Cardiology Diagnoses Palpitations Procedures Echocardiogram complete Yuri Palencia MD [address] [place] [phone] Referral ID Status Reason Start Date Expiration Date V isits Requested Visits Authorized [id number] New Request 05/17/2021 05/17/2022 1 1 Specialty Diagnoses / Procedures Referred By Contac t Referred To Contact Radiology Diagnoses , unspecified gestational age Procedures US OB TRANSVAGINAL Yaniv Pederson MD [address] [place] [address] Referral ID Status Reason Start Date Expiration Date Visits Re quested Visits Authorized [id number] Open 07/26/2022 07/26/2023 1 1 Specialty Diagnoses / Procedures Referred By Contac t Referred To Contact [facility] Diagnoses Chronic bilateral low back pain with left-sided sciatica Procedures CONSULT TO PHYSICAL THERAPY PHYSICAL THERAPY EVALUATION [facility] COMPLEX 45 MINS Davide Chao MD [address] [place] [address] [facility] [place] [address] [place] [address] Referral ID Status Reason Start Date Expiration Date Visits Requested Visits Authorized [id number] Pending Review Auto-Generat ed Referral 10/10/2022 10/10/2023 1 1 Specialty Diagnoses / Procedures Referred By Contac t Referred To Contact Cardiology Diagnoses History of PSVT (paroxysmal supraventricular tachycardia) Procedures CONSULT TO CARDIOLOGY OFFICE/OUTPATIENT [facility] MDM 60-74 MINUTES Davide Chao MD [address] [place] [address] Referral ID Status Reason Start Date Expiration Date Visits Requested Visits Authorized [id number] Authorized PCP Requested Referral 10/10/2022 10/10/2023 1 1 Specialty Diagnoses / Procedures Referred By Contac t Referred To Contact Cardiovascular Medicine Diagnoses Near syncope Tachycardia Procedures HOLTER MONITOR - CARE HOME Alina Alvarado MD [address] [facility] 1st [place] [address] [facility] Branch Logistics Supervisor [address] [place] [address] Referral ID Status Reason Start Date Expiration Date Visits Re quested Visits Authorized [id number] Closed 05/24/2023 06/17/2024 1 1 Specialty Diagnoses / Procedures Referred By Contac t Referred To Contact Diagnoses ADHD (attention deficit hyperactivity disorder), combined type Davide Chao MD [address] [place] [address] Referral ID Status Reason Start Date Expiration Date V isits Requested Visits Authorized [id number] Pending Review 1 1 Chief Complaint Patient [...] affecting Herpes simplex infection during , antepartum [id number] History of pre-eclampsia Rh negative status during Spotting Supervision of high risk , antepartum Chief Complaint EORDERS Rhogam Inj VIABILITY NOB LMP 1 PAP, 14 WK OB Reason for Visit Depression affecting Herpes simplex infection during , antepartum [id number] History of pre-eclampsia Rh negative status during Spotting Supervision of high risk , antepartum Depression affecting Herpes simplex infection during , antepartum [id number] History of pre-eclampsia Rh negative status during Spotting Supervision of high risk , antepartum Chief Complaint EORDERS Rhogam Inj VIABILITY NOB LMP 1 PAP, 14 WK OB 19 wk ob ANATOMY 18-20 WEEKS Reason for Visit Depression affecting Herpes simplex infection during , antepartum [id number] History of pre-eclampsia Rh negative status during Spotting Supervision of high risk , antepartum Depression affecting Herpes simplex infection during , antepartum [id number] History of pre-eclampsia Rh negative status during Spotting Supervision of high risk , antepartum Depression affecting Herpes simplex infection during , antepartum [id number] History of pre-eclampsia Rh negative status during Spotting Supervision of high risk , antepartum Chief Complaint 14 WK OB 19 wk ob ANATOMY 18-20 WEEKS rhogam 23 WK OB 27 WK OB/GLUCOSE 30 WK OB R/O UTI R/O UTI palpitations Reason for Visit Depression affecting Herpes simplex infection during , antepartum [id number] History of pre-eclampsia Rh negative status during Spotting Supervision of high risk , antepartum Depression affecting Herpes simplex infection during , antepartum [id number] History of pre-eclampsia Rh negative status during Spotting Supervision of high risk , antepartum Rh negative status during Depression affecting Herpes simplex infection during , antepartum [id number] History of pre-eclampsia Rh negative status during Spotting Supervision of high risk , antepartum Chronic headache Arthritis pain, hip Depression affecting Herpes simplex infection during , antepartum [id number] History of pre-eclampsia Rh negative status during Sciatic leg pain Supervision of high risk , antepartum Chronic headache Abnormal glucose Back pain Depression affecting Herpes simplex infection during , antepartum [id number] History of pre-eclampsia Rh negative status during Supervision of high risk , antepartum Vaginal discharge during Chronic headache UTI in Chief Complaint 19 wk ob ANATOMY 18-20 WEEKS rhogam 23 WK OB 27 WK OB/GLUCOSE 30 WK OB R/O UTI R/O UTI palpitations DORSALGIA, 23 WKS /NST Reason for Visit Depression affecting Herpes simplex infection during , antepartum [id number] History of pre-eclampsia Rh negative status during Spotting Supervision of high risk , antepartum Rh negative status during Depression affecting Herpes simplex infection during , antepartum [id number] History of pre-eclampsia Rh negative status during Spotting Supervision of high risk , antepartum Chronic headache Arthritis pain, hip Depression affecting Herpes simplex infection during , antepartum [id number] History of pre-eclampsia Rh negative status during Sciatic leg pain Supervision of high risk , antepartum Chronic headache Abnormal glucose Back pain Depression affecting Herpes simplex infection during , antepartum [id number] History of pre-eclampsia Rh negative status during [...] affecting Herpes simplex infection during , antepartum [id number] History of pre-eclampsia Rh negative status during Spotting Supervision of high risk , antepartum Rh negative status during Depression affecting Herpes simplex infection during , antepartum [id number] History of pre-eclampsia Rh negative status during Spotting Supervision of high risk , antepartum Chronic headache Arthritis pain, hip Depression affecting Herpes simplex infection during , antepartum [id number] History of pre-eclampsia Rh negative status during Sciatic leg pain Supervision of high risk , antepartum Chronic headache Abnormal glucose Back pain Depression affecting Herpes simplex infection during , antepartum [id number] History of pre-eclampsia Rh negative status during Supervision of high risk , antepartum Vaginal discharge during Chronic headache UTI in Depression affecting Elevated bilirubin Hypokalemia Pruritus of Supervision of high risk , antepartum Elevated bilirubin Abnormal glucose Arthritis pain, hip Back pain Chlamydia infection affecting Cholestasis during Depression affecting Elevated bilirubin Herpes simplex infection during , antepartum [id number] History of pre-eclampsia Hx of cholecystectomy Hypokalemia Pruritus of Rh negative status during Sciatic leg pain Spotting Supervision of high risk , antepartum UTI in Vaginal discharge during Chronic headache Abnormal glucose Arthritis pain, hip Back pain Chlamydia infection affecting Depression affecting Elevated bilirubin Herpes simplex infection during , antepartum [id number] History of pre-eclampsia Hx of cholecystectomy Hypokalemia [...] affecting Herpes simplex infection during , antepartum [id number] History of pre-eclampsia Rh negative status during Spotting Supervision of high risk , antepartum Chronic headache Arthritis pain, hip Depression affecting Herpes simplex infection during , antepartum [id number] History of pre-eclampsia Rh negative status during Sciatic leg pain Supervision of high risk , antepartum Chronic headache Abnormal glucose Back pain Depression affecting Herpes simplex infection during , antepartum [id number] History of pre-eclampsia Rh negative status during Supervision of high risk , antepartum Vaginal discharge during Chronic headache UTI in Depression affecting Elevated bilirubin Hypokalemia Pruritus of Supervision of high risk , antepartum Elevated bilirubin Abnormal glucose Arthritis pain, hip Back pain Chlamydia infection affecting Cholestasis during Depression affecting Elevated bilirubin Herpes simplex infection during , antepartum [id number] History of pre-eclampsia Hx of cholecystectomy Hypokalemia Pruritus of Rh negative status during Sciatic leg pain Spotting Supervision of high risk , antepartum UTI in Vaginal discharge during Chronic headache Abnormal glucose Arthritis pain, hip Back pain Chlamydia infection affecting Depression affecting Elevated bilirubin Herpes simplex infection during , antepartum [id number] History of pre-eclampsia Hx of cholecystectomy Hypokalemia [...] affecting Herpes simplex infection during , antepartum [id number] History of pre-eclampsia Rh negative status during Supervision of high risk , antepartum Chronic headache Spotting Depression affecting Herpes simplex infection during , antepartum [id number] History of pre-eclampsia Rh negative status during Supervision of high risk , antepartum Chronic headache Arthritis pain, hip Sciatic leg pain Abnormal glucose Depression affecting Herpes simplex infection during , antepartum [id number] History of pre-eclampsia Rh negative status during Supervision of high risk , antepartum Chronic headache Back pain Vaginal discharge during UTI in Depression affecting Elevated bilirubin Supervision of high risk , antepartum Hypokalemia Pruritus of Elevated bilirubin Abnormal glucose Chlamydia infection affecting Depression affecting Elevated bilirubin Herpes simplex infection during , antepartum [id number] History of pre-eclampsia Rh negative status during Supervision of high risk , antepartum Chronic headache Arthritis pain, hip Back pain Cholestasis during Hypokalemia Pruritus of Sciatic leg pain Spotting UTI in Vaginal discharge during Abnormal glucose Chlamydia infection affecting Depression affecting Elevated bilirubin Herpes simplex infection during , antepartum [id number] History of pre-eclampsia Rh negative status during Supervision of high risk , antepartum Chronic headache Arthritis pain, hip Back pain Hypokalemia Pruritus of Sciatic leg pain Spotting Vaginal discharge during Abnormal glucose Chlamydia infection affecting Depression affecting Elevated bilirubin Herpes simplex infection during , antepartum [id number] History of pre-eclampsia Rh negative status during [...] affecting Herpes simplex infection during , antepartum [id number] History of pre-eclampsia Rh negative status during Supervision of high risk , antepartum Chronic headache Spotting Depression affecting Herpes simplex infection during , antepartum [id number] History of pre-eclampsia Rh negative status during Supervision of high risk , antepartum Chronic headache Arthritis pain, hip Sciatic leg pain Abnormal glucose Depression affecting Herpes simplex infection during , antepartum [id number] History of pre-eclampsia Rh negative status during Supervision of high risk , antepartum Chronic headache Back pain Vaginal discharge during UTI in Depression affecting Elevated bilirubin Supervision of high risk , antepartum Hypokalemia Pruritus of Elevated bilirubin Abnormal glucose Chlamydia infection affecting Depression affecting Elevated bilirubin Herpes simplex infection during , antepartum [id number] History of pre-eclampsia Rh negative status during Supervision of high risk , antepartum Chronic headache Arthritis pain, hip Back pain Cholestasis during Hypokalemia Pruritus of Sciatic leg pain Spotting UTI in Vaginal discharge during Abnormal glucose Chlamydia infection affecting Depression affecting Elevated bilirubin Herpes simplex infection during , antepartum [id number] History of pre-eclampsia Rh negative status during Supervision of high risk , antepartum Chronic headache Arthritis pain, hip Back pain Hypokalemia Pruritus of Sciatic leg pain Spotting Vaginal discharge during Abnormal glucose Chlamydia infection affecting Depression affecting Elevated bilirubin Herpes simplex infection during , antepartum [id number] History of pre-eclampsia Rh negative status during [...] affecting Herpes simplex infection during , antepartum [id number] History of pre-eclampsia Rh negative status during Spotting Supervision of high risk , antepartum Arthritis pain, hip Chronic headache Depression affecting Herpes simplex infection during , antepartum [id number] History of pre-eclampsia Rh negative status during Sciatic leg pain Supervision of high risk , antepartum Abnormal glucose Back pain Chronic headache Depression affecting Herpes simplex infection during , antepartum [id number] History of pre-eclampsia Rh negative status during Supervision of high risk , antepartum Vaginal discharge during UTI in Depression affecting Elevated bilirubin Hypokalemia Pruritus of Supervision of high risk , antepartum Elevated bilirubin Abnormal glucose Arthritis pain, hip Back pain Chlamydia infection affecting Cholestasis during Chronic headache Depression affecting Elevated bilirubin Herpes simplex infection during , antepartum [id number] History of pre-eclampsia Hypokalemia Pruritus of Rh negative status during Sciatic leg pain Spotting Supervision of high risk , antepartum UTI in Vaginal discharge during Abnormal glucose Arthritis pain, hip Back pain Chlamydia infection affecting Chronic headache Depression affecting Elevated bilirubin Herpes simplex infection during , antepartum [id number] History of pre-eclampsia Hypokalemia Pruritus of Rh negative status during Sciatic leg pain Spotting Supervision of high risk , antepartum Vaginal discharge during Abnormal glucose Chlamydia infection affecting Chronic headache Depression affecting Elevated bilirubin Herpes simplex infection during , antepartum [id number] History of pre-eclampsia Hypokalemia Pruritus of Rh negative status during Social discord Sterilization Supervision of high risk , antepartum False labor after 37 completed weeks of gestation Abnormal glucose Chlamydia infection affecting Chronic headache Depression affecting Elevated bilirubin Herpes simplex infection during , antepartum [id number] History of pre-eclampsia Rh negative status during Social discord Sterilization Supervision of high risk , antepartum Abnormal glucose Chlamydia infection affecting Chronic headache Depression affecting Elevated bilirubin Herpes simplex infection during , antepartum [id number] History of pre-eclampsia Rh negative status during Social discord Sterilization Supervision of high risk , antepartum Status post tubal ligation Abnormal glucose Chlamydia infection affecting Chronic headache Depression affecting Elevated bilirubin Herpes simplex infection during , antepartum [id number] History of pre-eclampsia Rh negative status during [...] bilirubin Herpes simplex infection during , antepartum [id number] History of pre-eclampsia Rh negative status during Social discord Sterilization Supervision of high risk , antepartum Abnormal glucose Chlamydia infection affecting Chronic headache Depression affecting Elevated bilirubin Herpes simplex infection during , antepartum [id number] History of pre-eclampsia Rh negative status during Social discord Sterilization Supervision of high risk , antepartum Abnormal glucose Chlamydia infection affecting Chronic headache Depression affecting Elevated bilirubin Herpes simplex infection during , antepartum [id number] History of pre-eclampsia Rh negative status during [...] section and content) DATE CREATED AUTHOR 11/25/2017 [facility] DATE CREATED AUTHOR AUTHOR'S ORGANIZ ATION 07/25/2018 [facility] DATE CREATED AUTHOR AUTHOR'S ORGANIZ ATION 09/04/2018 [facility] DATE CREATED AUTHOR AUTHOR'S ORGANIZ ATION 09/27/2018 [facility] DATE CREATED AUTHOR AUTHOR'S ORGANIZ ATION 10/26/2018 [employer] DATE CREATED AUTHOR AUTHOR'S ORGANIZ ATION 10/27/2018 [facility] DATE CREATED AUTHOR AUTHOR'S ORGANIZ ATION 02/15/2021 [facility] ([place] DATE CREATED AUTHOR AUTHOR'S ORGANIZ ATION 06/01/2021 [facility] DATE CREATED AUTHOR AUTHOR'S ORGANIZ ATION 06/02/2021 [facility] DATE CREATED AUTHOR AUTHOR'S ORGANIZ ATION 06/28/2021 [facility] DATE CREATED AUTHOR AUTHOR'S ORGANIZ ATION 11/21/2021 [facility] DATE CREATED AUTHOR AUTHOR'S ORGANIZ ATION 08/11/2022 [facility] DATE CREATED AUTHOR AUTHOR'S ORGANIZ ATION 08/11/2022 [facility] DATE CREATED AUTHOR AUTHOR'S ORGANIZ ATION 08/12/2022 [facility] DATE CREATED AUTHOR AUTHOR'S ORGANIZ ATION 10/11/2022 [facility] DATE CREATED AUTHOR AUTHOR'S ORGANIZ ATION 11/30/2022 [facility] DATE CREATED AUTHOR AUTHOR'S ORGANIZ ATION 11/30/2022 [employer] DATE CREATED AUTHOR AUTHOR'S ORGANIZ ATION 06/02/2023 [facility] DATE CREATED AUTHOR AUTHOR'S ORGANIZ ATION 02/09/2024 [facility] DATE CREATED AUTHOR AUTHOR'S ORGANIZ ATION 03/27/2024 [facility] DATE CREATED AUTHOR AUTHOR'S ORGANIZ ATION 08/18/2024 [facility] DATE CREATED AUTHOR AUTHOR'S ORGANIZ ATION 09/13/2024 [facility] DATE CREATED AUTHOR AUTHOR'S ORGANIZ ATION 12/08/2024 [facility] DATE CREATED AUTHOR AUTHOR'S ORGANIZ ATION 12/26/2024 [facility] DATE CREATED AUTHOR AUTHOR'S ORGANIZ ATION 01/03/2025 [facility] Reason for Visit (unrecogniz ed section and content) Reason Comments Flank Pain pt was seen at [facility] yesterday and told to stay for treatment of kidneu stone. pt staets she left AMA and is here today for treatment. Reason Comments Blurred Vision Reason Comments Palpitations Specialty Diagnoses / Procedures Referred By Elder t Referred To Contact Cardiology Diagnoses heart pounding Maricel Simeon MD [address] [place] [address] Referral ID Status Reason Start Date Expiration Date Visits Re quested Visits Authorized [id number] Closed 05/16/2021 05/16/2022 1 1 Reason Comments [...] US OB TRANSVAGINAL Yaniv Pederson MD [address] [place] [address] Referral ID Status Reason Start Date Expiration Date Visits Re quested Visits Authorized [id number] Open 07/26/2022 07/26/2023 1 1 Reason Comments Referral Request Specialty Diagnoses / Procedures Referred By Contac t Referred To Contact Cardiovascular Medicine Diagnoses Tachycardia Near syncope Dizziness and giddiness Procedures [facility] - C[facility] HOME Alina Alvarado MD [address] [place] [address] [place] [address] [facility] Log[employer] Supervisor [address] [place] [phone] Referral ID Status Reason Start Date Expiration Date Visits Re quested Visits Authorized [id number] Closed 10/20/2022 11/14/2023 1 1 Reason Comments [...] Near syncope Tachycardia Procedures [facility] MONIT[facility] - CARE HOME Alina Alvarado MD [address] [place] [address] [place] [address] [facility] [employer] Supervisor [address] [place] [phone] Referral ID Status Reason Start Date Expiration Date Visits Re quested Visits Authorized [id number] Closed 05/24/2023 06/17/2024 1 1 Reason Comments Vaginal Bleeding Pt has been having h eavy menstrual bleeding x approx 36 hours. Denies , has had tubal ligation. Reports lower abd cramping, mild light-headedness and headache. Specialty Diagnoses / Procedures Referred By Elder t Referred To Contact Diagnoses Near syncope Procedures TILT TABLE TEST Alina Alvarado MD [address] [place] [address] Referral ID Status Reason Start Date Expiration Date Visits Re quested Visits Authorized [id number] Closed 05/16/2023 06/09/2024 1 1 Reason Onset [...] Comments Ovarian Cyst Reason Comments Faxed to [facility] Bernardo Sibley RN - 09/01/2018 9:05 PM EDBernrado Anguiano RN - 09/01/2018 8:50 PM EDEdne Thompson, EMT - 09/01/2018 7:28 PM EDTAndry [...] (unrecogniz ed section and content) Section Author: aCprice Cowan PROHIBITION ON REDISCLOSURE OF CONFIDENTIAL INFORMATION [...] Care Teams (unrecognized sec tion and content) Administrative Law Judge Relationship Specialty Start Date End Date Davide Chao MD [address] [place] [address] [place] [id number] PCP - General Family Medicine 05/13/15 Administrative Law Judge Relationship Specialty Start Date End Date Davide Chao MD [address] [place] [phone] PCP - General Family Medicine 06/23/17 Administrative Law Judge Relationship Specialty Start Date End Date Davide Chao MD [address] [place] [address], [place] [address] PCP - General Family Medicine 05/13/15 Administrative Law Judge Relationship Specialty Start Date End Date Davide Chao MD [address] [place] [address], [place] [address] PCP - General 04/07/09 Administrative Law Judge Relationship Specialty Start Date End Date Davide Chao MD [address] [place] [address], [place] [address] PCP - General 04/07/09 Administrative Law Judge Relationship Specialty Start Date End Date Davide Chao MD [address] [place] [address], [place] [address] PCP - General 04/07/09 Administrative Law Judge Relationship Specialty Start Date End Date Davide Chao MD [address] [place] [address], [place] [address] PCP - General 04/07/09 Administrative Law Judge Relationship Specialty Start Date End Date Davide Chao [address] [place] [address], [place] [address] PCP - General 08/22/18 Administrative Law Judge Relationship Specialty Start Date End Date Davide Chao [address] [place] [address] PCP - General 08/22/18 Administrative Law Judge Relationship Specialty Start Date End Date Davide Chao [address] [place] [address] PCP - General 08/22/18 Administrative Law Judge Relationship Specialty Start Date End Date WillieDavide liz [address] [place] [address] PCP - General 08/22/18 Team Status: Active [...] MD Primary Care Provider Active Love Castillo UTILITY DRIVER, UTILITY DRIVER-C Attending Provider Active Team Status: Inactive Member Role Status Dates Dr. Davide Chao MD Primary Care Provider, Referr ing Provider Active Dr. Melissa Brasher DO Attending Provider Activ e Team Status: Inactive Member Role Status Dates Dr. Davide Chao MD Primary Care Provider Active Love Castillo UTILITY DRIVER, UTILITY DRIVER-C Attending Provider Active Team Status: Inactive Member Role Status Dates Dr. Davide Chao MD Primary Care Provider Active Dr. Melissa Brasher DO Attending Provider, Refe rring Provider Active Administrative Law Judge Relationship Specialty Start Date End Date Davide Chao MD [address] [place] [address] PCP - General 04/07/09 Administrative Law Judge Relationship Specialty Start Date End Date Davide Chao MD [address] [place] [id number] PCP - General Family Medicine 06/23/17 Team Status: Inactive Member Role Status Dates Dr. Davide Chao MD Primary Care Provider, Referr ing Provider Active Laura Salinas CNM Attending Provider Active Team Status: Inactive Member Role Status Dates Dr. Davide Chao MD Primary Care Provider, Referr ing Provider Active Love Castillo UTILITY DRIVER, UTILITY DRIVER-C Attending Provider Active Team Status: Inactive Member [...] Active Jeanette Roach CNM Other Provider Active Administrative Law Judge Relationship Specialty Start Date End Date Davide Chao MD [address] [place] [address] PCP - General 04/07/09 Team Status: Inactive Member Role Status Dates Dr. Davide Chao MD Primary Care Provider Active Dr. Car Gage DO Attending Provider, Emergency Provider Active Team Status: Inactive Member Role Status Dates Dr. Davide Chao MD Primary Care Provider Active Dr. Yuri Crenshaw MD Other Provider Active Love Castillo UTILITY DRIVER, UTILITY DRIVER-C Other Provider Active Laura Salinas CNM Attending Provider, Referring Pr ovider Active Administrative Law Judge Relationship Specialty Start Date End Date Davide Chao MD [address] [place], [place] [address] PCP - General 04/07/09 Team Status: Inactive Member Role Status Dates Dr. Davide Chao MD Primary Care Provider, Referr ing Provider Active Dr. Zander Morales MD Attending Provider Active Team Status: Active Member Role Status Dates Dr. Davide Chao MD Primary Care Provider Active Dr. Yuri Crenshaw MD Other Provider Active Love Castillo UTILITY DRIVER, UTILITY DRIVER-C Other Provider Active Laura Salinas CNM Attending [...] Dr. Yuri Crenshaw MD Other Provider Active Administrative Law Judge Relationship Specialty Start Date End Date Davide Chao MD [address] [place] [address] PCP - General 06/13/19 Team Status: Active [...] CNM Attending Provider, Referring Pro vider Active Administrative Law Judge Relationship Specialty Start Date End Date Davide Chao MD [address] [place] [address] PCP - General 04/07/09 Administrative Law Judge Relationship Specialty Start Date End Date Davide Chao MD [address] [place], [place] [id number] PCP - General 04/07/09 Administrative Law Judge Relationship Specialty Start Date End Date Davide Chao MD [address] [place] [address] PCP - General 06/13/19 Administrative Law Judge Relationship Specialty Start Date End Date Davide Chao MD [address] [place] [address] PCP - General 04/07/09 Administrative Law Judge Relationship Specialty Start Date End Date Davide Chao MD [address] [place] [address] PCP - General Family Medicine 06/23/17 Administrative Law Judge Relationship Specialty Start Date End Date Davide Chao MD [address] [place] [address] PCP - General 06/13/19 Administrative Law Judge Relationship Specialty Start Date End Date Davide Chao MD [address] [place] [phone] PCP - General Family Medicine 06/23/17 Team Status: Active Member Role Status Dates Dr. Davide Chao MD Primary Care Provider Active Love Castillo UTILITY DRIVER, UTILITY DRIVER-C Attending Provider, Referring Provider Active Team Status: Inactive Member Role Status Dates Dr. Davide Chao MD Primary Care Provider Active Love Castillo UTILITY DRIVER, UTILITY DRIVER-C Attending Provider, Referring Provider Active Administrative Law Judge Relationship Specialty Start Date End Date Davide Chao MD [address] [place] [address] PCP - General 04/07/09 Administrative Law Judge Relationship Specialty Start Date End Date Davide Chao MD [address] [place] [address] PCP - General 04/07/09 Administrative Law Judge Relationship Specialty Start Date End Date Davide Chao MD [address] [place] [address] PCP - General 04/07/09 Administrative Law Judge Relationship Specialty Start Date End Date Davide Chao MD [address] [place] [address] PCP - General 04/07/09 Administrative Law Judge Relationship Specialty Start Date End Date Davide Chao MD [address] [place] [address] PCP - General 04/07/09 Administrative Law Judge Relationship Specialty Start Date End Date Davide Chao MD [address] [place] [address] PCP - General 04/07/09 Administrative Law Judge Relationship Specialty Start Date End Date Davide Chao MD [address] [place] [address] PCP - General 04/07/09 Administrative Law Judge Relationship Specialty Start Date End Date Davide Chao MD [address] [place] [address] PCP - General 04/07/09 Harini Rock APRN.HERB DOCTOR [address] [place] [address] [employer]ing Machine Tender Family [facility] 05/12/24 Isaac Marie APRN.HERB DOCTOR [address] [place] [address] St[employer] Machine Tender Family [facility] 05/21/24 Administrative Law Judge Relationship Specialty Start Date End Date Davide Chao MD [address] [place] [address] PCP - General 04/07/09 Harini Rock APRN.HERB DOCTOR [address] [place] [address] Stitch Bonding Machine Tender Family [facility] 05/12/24 Isaac Marie APRN.HERB DOCTOR [address] [place] [address] [facility] Administrative Law Judge Relationship Specialty Start Date End Date Davide Chao MD [address] [place], [place] [address] PCP - General 04/07/09 Harini Rock, POULTRY CULLER.HERB DOCTOR [address] [place] [address] [facility] 05/[facility]24 Isaac Marie POULTRY CULLER.HERB DOCTOR [address] [place] [address] [facility] 05/21/24 Administrative Law Judge Relationship Specialty Start Date End Date Davide Chao MD [address] [place] [address] PCP - General 04/07/09 Harini Rock, POULTRY CULLER.HERB DOCTOR [address] [place] [address] [facility] 05/12/24 Isaac Marie POULTRY CULLER.HERB DOCTOR [address] [place] [address] [facility] 05/21/24 Team Status: Active Member Role Status Dates Dr. Davide Chao MD Primary Care Provider Active Team Status: Inactive Member Role Status Dates Dr. Davide Chao MD Primary Care Provider Active Start: June 10, 2024 End: June 10, 2024 Dr. Davide Chao MD Referring Provider Active Start: June 10, 2024 End: June 10, 2024 Love Castillo UTILITY DRIVER, UTILITY DRIVER-C Attending Provider Active Start: June 10, 2024 End: June 10, 2024 Team Status: Inactive Member Role Status Dates Dr. Davide Chao MD Primary Care Provider Active Start: June 10, 2024 End: June 10, 2024 Love Castillo NP, UTILITY DRIVER-C Attending Provider Active Start: June 10, 2024 End: June 10, 2024 Love Castillo UTILITY DRIVER, UTILITY DRIVER-C Referring Provider Active Start: June 10, 2024 [...] August 21, 2024 End: August 21, 2024 Administrative Law Judge Relationship Specialty Start Date End Date Davide Chao MD [address] [place] [address] PCP - General 04/07/09 Harini Rock APRN.HERB DOCTOR [address] [place] [address] [facility] 05/12/24 Isaac Marie APRN.HERB DOCTOR [address] [place] [address] [facility] 05/21/24 Administrative Law Judge Relationship Specialty Start Date End Date Davide Chao MD [address] [place] [address] PCP - General 04/07/09 Harini Rock APRN.HERB DOCTOR [address] [place] [address] [facility] 05/12/24 Isaac Marie APRN.HERB DOCTOR [address] [place] [address] [facility] 05/21/24 Administrative Law Judge Relationship Specialty Start Date End Date Davide Chao MD [address] [place] [address] PCP - General 04/07/09 Harini Rock APRN.HERB DOCTOR [address] [place] [address] St[employer] Machine T[facility] 05/12/24 10/16/24 Isaac Marie APRN.HERB DOCTOR [address] [place], [place] [address] [facility] 05/21/24 Team Status: Inactive Member Role Status Dates Dr. Davide Chao MD Primary Care Provider Active Start: October 26, 2024 End: October 26, 2024 Dr. Melissa Brasher , DO Attending Provider Activ e Start: October 26, 2024 End: October 26, 2024 Dr. Melissa Brasher , DO Referring Provider Activ e Start: October 26, 2024 End: October 26, 2024 Administrative Law Judge Relationship Specialty Start Date End Date Davide Chao MD [address] [place] [address] PCP - General 04/07/09 Harini Rock APRN.HERB DOCTOR [address] [place] [address] [facility] 05/12/24 10/16/24 Isaac Marie APRN.HERB DOCTOR [address] [place] [address] [facility] 05/21/24 Team Status: Inactive Member [...] November 23, 2024 Dr. Ryan Pearson DO Attending Provider Active Start : [...] or prosecute any alcohol or drug abuse patient.[facility]ronIn the event this information is protected by the Federal Confidentiality of Alcohol and Drug Abuse Patient Records regulations: The Federal rules restrict any use of the information to criminally investigate or prosecute any alcohol or drug abuse patient.[facility]ronIn the event this information is protected by the Federal Confidentiality of Alcohol and Drug Abuse Patient Records regulations: The Federal rules restrict any use of the information to criminally investigate or prosecute any alcohol or drug abuse patient.[facility]ronIn the event this information is protected by the Federal Confidentiality of Alcohol and Drug Abuse Patient Records regulations: The Federal rules restrict any use of the information to criminally investigate or prosecute any alcohol or drug abuse patient.[facility]ronIn the event this information is protected by the Federal Confidentiality of Alcohol and Drug Abuse Patient Records regulations: The Federal rules restrict any use of the information to criminally investigate or prosecute any alcohol or drug abuse patient.[facility]ronIn the event this information is protected by the Federal Confidentiality of Alcohol and Drug Abuse Patient Records regulations: The Federal rules restrict any use of the information to criminally investigate or prosecute any alcohol or drug abuse patient.[facility]ronIn the event this information is protected by the Federal Confidentiality of Alcohol and Drug Abuse Patient Records regulations: The Federal rules restrict any use of the information to criminally investigate or prosecute any alcohol or drug abuse patient.[facility]ronIn the event this information is protected by the Federal Confidentiality of Alcohol and Drug Abuse Patient Records regulations: The Federal rules restrict any use of the information to criminally investigate or prosecute any alcohol or drug abuse patient.[facility]ronIn the event this information is protected by the Federal Confidentiality of Alcohol and Drug Abuse Patient Records regulations: The Federal rules restrict any use of the information to criminally investigate or prosecute any alcohol or drug abuse patient.[facility]ronIn the event this information is protected by the Federal Confidentiality of Alcohol and Drug Abuse Patient Records regulations: The Federal rules restrict any use of the information to criminally investigate or prosecute any alcohol or drug abuse patient.[facility]ronIn the event this information is protected by the Federal Confidentiality of Alcohol and Drug Abuse Patient Records regulations: The Federal rules restrict any use of the information to criminally investigate or prosecute any alcohol or drug abuse patient.[facility]ronIn the event this information is protected by the Federal Confidentiality of Alcohol and Drug Abuse Patient Records regulations: The Federal rules restrict any use of the information to criminally investigate or prosecute any alcohol or drug abuse patient.[facility]ronIn the event this information is protected by the Federal Confidentiality of Alcohol and Drug Abuse Patient Records regulations: The Federal rules restrict any use of the information to criminally investigate or prosecute any alcohol or drug abuse patient.[facility]ronIn the event this information is protected by the Federal Confidentiality of Alcohol and Drug Abuse Patient Records regulations: The Federal rules restrict any use of the information to criminally investigate or prosecute any alcohol or drug abuse patient.[facility]ronIn the event this information is protected by the Federal Confidentiality of Alcohol and Drug Abuse Patient Records regulations: The Federal rules restrict any use of the information to criminally investigate or prosecute any alcohol or drug abuse patient.[facility]ronIn the event this information is protected by the Federal Confidentiality of Alcohol and Drug Abuse Patient Records regulations: The Federal rules restrict any use of the information to criminally investigate or prosecute any alcohol or drug abuse patient.[facility]ronIn the event this information is protected by the Federal Confidentiality of Alcohol and Drug Abuse Patient Records regulations: The Federal rules restrict any use of the information to criminally investigate or prosecute any alcohol or drug abuse patient.[facility]ronIn the event this information is protected by the Federal Confidentiality of Alcohol and Drug Abuse Patient Records regulations: The Federal rules restrict any use of the information to criminally investigate or prosecute any alcohol or drug abuse patient.[facility]ronIn the event this information is protected by the Federal Confidentiality of Alcohol and Drug Abuse Patient Records regulations: The Federal rules restrict any use of the information to criminally investigate or prosecute any alcohol or drug abuse patient.[facility]ronIn the event this information is protected by the Federal Confidentiality of Alcohol and Drug Abuse Patient Records regulations: The Federal rules restrict any use of the information to criminally investigate or prosecute any alcohol or drug abuse patient.[facility]ronIn the event this information is protected by the Federal Confidentiality of Alcohol and Drug Abuse Patient Records regulations: The Federal rules restrict any use of the information to criminally investigate or prosecute any alcohol or drug abuse patient.[facility]ronIn the event this information is protected by the Federal Confidentiality of Alcohol and Drug Abuse Patient Records regulations: The Federal rules restrict any use of the information to criminally investigate or prosecute any alcohol or drug abuse patient.[facility]ronIn the event this information is protected by the Federal Confidentiality of Alcohol and Drug Abuse Patient Records regulations: The Federal rules restrict any use of the information to criminally investigate or prosecute any alcohol or drug abuse patient.[facility]ronIn the event this information is protected by the Federal Confidentiality of Alcohol and Drug Abuse Patient Records regulations: The Federal rules restrict any use of the information to criminally investigate or prosecute any alcohol or drug abuse patient.[facility]ronIn the event this information is protected by the Federal Confidentiality of Alcohol and Drug Abuse Patient Records regulations: The Federal rules restrict any use of the information to criminally investigate or prosecute any alcohol or drug abuse patient.[facility]ronIn the event this information is protected by the Federal Confidentiality of Alcohol and Drug Abuse Patient Records regulations: The Federal rules restrict any use of the information to criminally investigate or prosecute any alcohol or drug abuse patient.[facility]ronIn the event this information is protected by the Federal Confidentiality of Alcohol and Drug Abuse Patient Records regulations: The Federal rules restrict any use of the information to criminally investigate or prosecute any alcohol or drug abuse patient.[facility]ronIn the event this information is protected by the Federal Confidentiality of Alcohol and Drug Abuse Patient Records regulations: The Federal rules restrict any use of the information to criminally investigate or prosecute any alcohol or drug abuse patient.[facility]ronIn the event this information is protected by the Federal Confidentiality of Alcohol and Drug Abuse Patient Records regulations: The Federal rules restrict any use of the information to criminally investigate or prosecute any alcohol or drug abuse patient.[facility]ronIn the event this information is protected by the Federal Confidentiality of Alcohol and Drug Abuse Patient Records regulations: The Federal rules restrict any use of the information to criminally investigate or prosecute any alcohol or drug abuse patient.[facility]ronIn the event this information is protected by the Federal Confidentiality of Alcohol and Drug Abuse Patient Records regulations: The Federal rules restrict any use of the information to criminally investigate or prosecute any alcohol or drug abuse patient.[facility]ronIn the event this information is protected by the Federal Confidentiality of Alcohol and Drug Abuse Patient Records regulations: The Federal rules restrict any use of the information to criminally investigate or prosecute any alcohol or drug abuse patient.[facility] Ordered Prescriptions (unrec ognized section and content) [...] Tijerina RN) 0039 (Stopped - Provider: Jessica Tjierina RN) Goals (unrecognized section and content) Goals [...] BE BASED ON THE PRIMARY CLINICAL RECORDS. [employer] provides no warranty or guarantee of the accuracy or completeness of information in this document.
[2025-01-05 17:33] LABS: hCG Titer Quant., Serum 42 mIU/mL (<9 non-preg)
== END | disposition home or self-care (01) ==
LOC: LAB 16:38
PROVIDERS: PCP Family Medicine; Visit Provider Obstetrics & Gynecology
DX: N91.2 Amenorrhea, unspecified (principal)
CPT/HCPCS: 36415; 84702

== ENCOUNTER → 2025-01-07 | Outpatient (CLI) | payer MEDICAID, SELFPAY ==
[2025-01-07 17:11] LABS: hCG Titer Quant., Serum 152 mIU/mL (<9 non-preg)
== END | disposition home or self-care (01) ==
LOC: BWCLAB 16:01
PROVIDERS: PCP Family Medicine; Visit Provider Obstetrics & Gynecology
DX: Z34.90 Encounter for supervision of normal pregnancy, unspecified, unspecified trimester (principal); Z98.890 Other specified postprocedural states
CPT/HCPCS: 36415; 84702

== ENCOUNTER → 2025-01-09 | Outpatient (CLI) | payer MEDICAID, SELFPAY ==
--- OUTSIDE RECORDS SUMMARY | 2025-01-09 20:01 | XMS RPT_ITS | CCD ---
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 BV Normal [facility] Comment on above: Performed By: #### L 7000.1800, L7400.0280, M100.2000, M100.3200 #### [facility] [address] [place], [address] Field Rep Office Visit Reporton 01-03-2025 Field Rep Office Visit Report [facility] [address], [address] [place] [address] OFFICE VISIT Date of Service: 01/03/25 MR#: [id number] Acct: [id number] Name: QUE SANCHEZ Rep #: [id number] : 1990 Provider: TIM Lozano ams Age/Sex: 34/F Location: [facility] Status: Signed Intake Vital Signs 11/23/24 20:23 01/03/25 15:35 Height 5 ft 6 in 5 ft 6 in Weight: 177 lb 4 oz BMI 28.5 BP 108/68 Intake Visit Reasons: Possible BV Chief Complaint: Possible BV Diesel Fleet Mechanic Required: No Is patient in pain?: No Allergies metronidazole (From Flagyl) Allergy (Verified 01/03/25 15:34) Upset Stomach Phenylpiperazine Antidepressant Adverse Reaction (Verified 01/03/25 15:34) suicidal ideation Tetracyclic Antidepressants Adverse Reaction (Verified 01/03/25 15:34) suicidal ideation Tricyclic Antidepressants and Tricy Adverse Reaction (Verified 01/03/25 15:34) suicidal ideation Medications ???Medication ???Instructions ???Recorded ???Confirmed ???Type lorazepam 0.5 mg tablet (Ativan) 0.5 mg PO BID PRN 01/03/25 5 History magnesium 200 mg tablet 200 mg PO QDAY 01/03/25 01/03/25 H istory prenat.vits,malgorzata,min-iro n-folic tab PO 01/03/25 01/03/25 History zinc acetate 25 mg (zinc) capsule 25 mg PO QDAY 01/03/25 01/03/25 H istory Is last menstrual period known: Yes Last Menstrual Period: 12/11/24 Post menopausal: No Patient : Yes : No [facility] History Multiple personality disorder History of [...] full term 7lbs 2oz Female 14 epidural [facility] Dr. Emilia Jung 09/07/10 Bridget 39 live - full term 7lbs 4oz Female 46 hours [facility] Satya 07/12/12 Pj 38 live - full term 7lbs 6oz Male 4 hours [facility] kenzie Piña 07/15/16 Missy 37 live - full term 7lbs 8oz Male 12 hours [facility] Reny Jurado 10/12/21 [place] 40 live - full term 8lbs 2oz [...] reviewed and no additional complaints, except as docum (more content not included)... Normal [facility] hCG Titer Quant., Serumon HCG QUANT. 11 mIU/mL High <9 non-preg [facility] Comment on above: Result Comment: Gest ational Age 0.2-1 Week: 5-50 mIU/mL 1-2 Weeks: 50-500 mIU/mL 2-3 Weeks: 100-5000 mIU/mL 3-4 Weeks: 500-10,000 mIU/mL 4-5 Weeks:1000-50,000 mIU/mL 5-6 Weeks: 10,000-100,000 mIU/mL 6-8 Weeks: 15,000-200,000 mIU/mL 2-3 Months:10,000-100,000 mIU/mL Performed By: #### L 801.2600, L700.8000 #### [facility] [address] [place], [address] Procedure Reporton 5 Procedure Report [facility] Medical Records Department [address] [place] [address] Procedure Report 12/20/24 1712 MR#: [id number] Acct: [id number] Name: QUE SANCHEZ Rep #: [id number] : 1990 34 From: Melissa Brasher DO PCP: Dr. Davide Chao MD Status:REG CLI Location: RAD Problems Associated Problem List Diagnoses (1) Tubal reversal surgical follow up: Multi Select Codes Urinary/Genital Urinary/Genital CPT Codes: 39492 HSG/SIS Non-invasive Procedural Procedure Information Date of Procedure: 12/23/24 Pre-Procedure Diagnosis: tubal reversal follow up Post-Procedure Diagnosis: tubal reversal follow up Procedure Performed:: HSG senior architectural designer: No Description of procedure: Operative details: Patient [...] bilateral fallopian tubes Complications Complications: No 12/23/24 7014 Cosigner Signature (if applicable): CC: Dr. Melissa Brasher DO; Dr. Davide Chao MD Signed Normal [facility] Salpingogramon 12-20-2024 Salpingogram [facility] [address] [place] [address] Salpingogram MR#: [id number] Acct: [id number] Name: QUE SANCHEZ Rep #: [id number] : 1990 F 34 From: Yash canales MD PCP: Dr. Davide Chao MD Status: REG CLI Study: Salpingogram Date of Exam: 12/20/24 Exam# [id number] Ordering Dr: Melissa Brasher DO PROCEDURE: SALPINGOGRAM 12/20/2024 REASON FOR EXAM: HSG TECHNIQUE: SALPINGOGRAM COMPARISON: None FINDINGS: Hysterosalpingogram was performed by the car rental deliverer. Imaging was provided. Dose report: 21 seconds of fluoroscopy. 8.98 mGy. 2 images were submitted. The uterus is unremarkable. Both fallopian tubes are patent with free spill. RAD/Salpingogram IMPRESSION: Unremarkable hysterosalpingogram. Reading Location: [facility] CC: Dr. Melissa Brasher DO; Dr. Davide Chao MD Asp Net Mvc Developer: Signed Normal [facility] ED MED ADMINISTRATION DETAIL on 12-06-2024 ED MED ADMINISTRATION DETAIL Transfer Engineer Medication Administration Record [address] [place] [address] [id number] 12/06/2024 Patient: QUE SANCHEZ Sex: Female : [...] Kaleb Carrion R.N. 1 of 1 Normal [facility] ED NURSES CLINICAL NOTEon ED NURSES CLINICAL NOTE Nurse Narrative Nurse Clinical Narrative [facility] [address] [place] [address] [id number] 12/06/2024 00:09:00 Patient: QUE SANCHEZ Sex: Female : 1990 Age: 34y Disposition: Discharge to Home Disposition Decision Time: 01:54 12/06/2024 Departure Time: 01:55 12/06/2024 TRIAGE Arrived by private vehicle. Triage time: 00:10 12/06/2024. -- 00:18 12/06/24 EDT Kaleb Carrion R.N. Acuity: LEVEL 3. Chief Complaint: VOMITING and (pt states she vomits every day for past 6 months, now w/ c/o belarusian garcia stuck in throat). 00:10 12/06/24. Alert. No acute distress. (anxious). Treatment BRICK PAVING CHECKER: None. SEPSIS SCREEN: NEGATIVE. SIRS criteria negative. No possible sources of infection. -- 00:26 12/06/24 EDT Kaleb Carrion R.N. 00:23 12/06/24. BP: 118/83 MAP: 95. HR: 99. RR: [...] day as needed. -- 01:43 12/06/24 EDT aKleb Carrion R.N. propranolol 40 mg tablet: Stopped [...] atomoxetine 40 mg capsule: Stopped 12/06/2024. -- 01:12/06/24 EDT Kaleb Carrion R.N. 00:12/06/24. Preferred Pharmacy: ([facility]). -- 00:12/06/24 EDT Kaleb Carrion R.N. Allergies: [...] acute distress. Appears anxious. ( pt c/o Puerto Rican garcia stuck in throat, concerned could be [...] Nurse N (more content not included)... Normal [facility] ED ORDER SHEET (CPOE ONLY)on 12-06-2024 ED ORDER SHEET (CPOE ONLY) Order Sheet Order Sheet [address] [address] [id number] 12/06/2024 Patient: QUE SANCHEZ [facility]#: [id number] Sex: Female : 1990 Age: 34y MEASUREMENTS: [...] D.O. 12/06/2024 12/06/2024 Kaleb Clements, Erica.N. R.N. LAB ORDERS Order Description Priority Entered [...] (12/06/2024 03:20 EDT)] 2 of 2 Normal [facility] ED PHYSICIAN CLINICAL REPORT on 12-06-2024 ED PHYSICIAN CLINICAL REPORT Narrative Physician Clinical Narrative [address] [address] [id number] 12/06/2024 00:09:00 Patient: QUE SANCHEZ Sex: Female [...] at an event tonight and had multiple Puerto Rican fries. She said she believes she has [...] after administration (more content not included)... Normal [facility] ED SUPER BILLon 12-06-2024 ED SUPER BILL [facility] [address] [place] [address] [id number] 12/06/2024 Patient: QUE SANCHEZ Sex: Female : 1990 Age: 34y Item Facility Professional Category Description Code Code Quantity Fee Total Nurse/E/M EMERGENCY 855383 1 $0.00 $0.00 DEPARTMENT VISIT HIGH/URGENT SEVERITY (29044-79) Nurse/IV/IM/Infusions IVP additional 490387 1 $0.00 $0.00 push (19209) Nurse/IV/IM/Infusions IVP initial 343726 1 $0.00 $0.00 (14340) Grand Total $0.00 Providers Tristin Eduardo D.O. Chief Complaint globus sensation. 1 of 2 [facility] Principal Diagnosis Esophageal foreign body: food. ICD-10 Codes T18.128A: Food in esophagus causing other injury, initial encounter 2 of 2 Normal [facility] ED VISIT SUMMARYon ED VISIT SUMMARY Visit Overview Visit Overview [address] [place] [address] [id number] 12/06/2024 Patient: QUE SANCHEZ Sex: Female : 1990 Age: 34y 12/06/2024 03:20 AM EDT ED Arrival:00:09 12/06/2024 EDT Status: Recent Travel:no Language:eng Adv Directive:No Isolation Status: Ethnicity:N Fall Risk:no risk Infectious Disease Exposure:no Measurements:5'6 / 167.6 Self-Harm Status:risk Sepsis Screen:negative cm 170.0 lb / 77.1 kg Chief Complaint:VOMITING, (anxious), and (pt states she vomits every day for past 6 months, now w/ c/o belarusian garcia stuck in throat) ALLERGIES No Known Drug Allergies HOME MEDICATIONS Ativan 1 mg tablet: 1 tablet five times a day as needed. atomoxetine 18 mg capsule: Stopped 12/06/2024. atomoxetine 40 mg capsule: Stopped 12/06/2024. gabapentin 300 mg capsule: Stopped 12/06/2024. 1 3 Visit Overview hydrocodone 5 mg-acetaminophen 325 [...] IVP 2 mg IV SITE INFORMATION INTAKE 2 of 3 Visit Overview OUTPUT REASSESMENT (most recent) [...] then states that she passed the object (belarusian garcia), when asked did she vomit it out she replied no, I just swallowed it.). VITAL SIGNS First Vitals Last Vitals Temp 00:17 12/06/24 Temp 01:50 12/06/24 BP 00:12/06/24 BP 01:50 12/06/24 HR 00:12/06/24 97 HR 01:50 12/06/24 RR 00:12/06/24 RR 01:50 12/06/24 16 O2 Sat 00:17 12/06/24 100% O2 Sat 01:50 12/06/24 Pain 00:17 12/06/24 Pain 01:50 12/06/24 0 ETCO2 00:17 12/06/24 ETCO2 01:50 12/06/24 GCS 00:17 12/06/24 GCS 01:50 12/06/24 RTS 00:17 12/06/24 RTS 01:50 12/06/24 PROCEDURES NURSING INTERVENTIONS LABS / STUDIES LABS / STUDIES ORDERED HCG, Qual Serum CLINICAL IMPRESSION ESOPHAGEAL FOREIGN BODY: FOOD 3 of 3 Normal [facility] ED VITALS FLOW SHEETon 12-06 ED VITALS FLOW SHEET Vitals Vital Sign Flow Sheet [place] [address] [place] [address] [id number] 12/06/2024 Patient: QUE SANCHEZ Sex: Female : [...] 12/06/2024 97 100% 2 of 2 Normal [facility] SERUM QUALon 12-06 EXTERNAL QC DONE? YES Normal [facility] Comment on above: Performed By: #### 2 70567 #### [facility],[address] [place] [address] INTERNAL QC PASS Normal [facility] Comment on above: Performed By: #### 2 17605 #### [facility],[address] [place] [address] SER Negative Normal NEGATIVE [facility] Comment on above: Performed By: #### 2 19717 #### [facility],[address] [place] [address] L499.0043on 11-24-2024 Trop T High Sen Normal <=14 [facility] Comment on above: Result Comment: Canc elled via OM: Order cancelled - Patient discharged Performed By: #### L 499.0043 #### [facility] [address] [place], [address] 12 Lead EKGon 11-23-2024 12 Lead EKG [facility] [address] [place] [address] 12 Lead EKG 11/23/242024 MR#: [id number] Acct: [id number] Name: QUE SANCHEZ Rep #: [id number] : 1990 34 From: Louis Rodriguez MD [...] rhythm Normal ECG Confirmed by Louis Rodriguez ([id number]), supervising film or videotape editor NATALIE OAKLEY ([id number]) on 11/26/2024 11:50:27 AM Referred By: Confirmed By: Louis Rodriguez 11/26/24 1150 Date Louis Rodriguez MD CC: Dr. Davide Chao MD; Dr. Ryan Pearson, DO Signed Normal [facility] Absolute lymphocyte countOrd ered By: Ryan Pearson on 11-23-2024 Lymphocytes Auto (Unsp spec) [#/Vol] 2.84 10*3/uL 0.83-4.51 [facility] Absolute neutrophil countOrd ered By: Ryan Pearson on 11-23-2024 Neutrophils (Bld) [#/Vol] 3.9 10*3/uL 2.0-7.7 [facility] Anion gap in Serum or Plasma Ordered By: Ryan Pearson on 11-23-2024 Anion gap [Moles/Vol] 16 mmol/L High 5-15 [facility] Automated lymphocyte count a s percentage of total leukocytesOrdered By: Ryan Pearson on 11-23-2024 Lymphocytes/100 WBC Auto (Unsp spec) 35.9 % - [facility] BUN/creatinine ratioOrdered By: Ryan Pearson on 11-23-2024 Urea nitrogen/Creatinine [Mass ratio] 10.6 mg/mg - [facility] Basic Metabolic Profile (BMP )on 11-23-2024 BUN/CRE 10.6 RATIO Normal - [facility] Comment on above: Performed By: #### L 7000.1800, L7400.0280, , M1.3200 #### [facility] [address] [place], [address] ECRCL 79.55 ml/min Normal 50-250 [facility] Comment on above: Performed By: #### L 7000.1800, L7400.0280, M1, M100.3200 #### [facility] [address] [place], [address] GAP 16 High 5-15 [facility] Comment on above: Performed By: #### L 7000.1800, L7400.0280, M100.1999, M100.3200 #### [facility] [address] [place], [address] Potassium [Moles/Vol] 3.7 mmol/L Normal 3.3-5.1 [facility] Comment on above: Performed By: #### L 7000.1800, L7400.0280, .1999, M100.3200 #### [facility] [address] [place], [address] Basophil percentageOrdered B y: Ryan Pearson on 11-23-2024 Basophils/100 WBC (Bld) 0.6 % 0-1 [facility] CBC W/Diff, Automatedon 11-04 Absolute Lymph 2.84 X10 3/uL Normal 0.83-4.51 [facility] Comment on above: Performed By: #### L 501.9520, L100.0100, L500.2500, L501.4021 #### [facility] [address] [place], [address] Absolute Neut 3.9 X10 3/uL Normal 2.0-7.7 [facility] Comment on above: Performed By: #### L 501.9520, L100.0100, L500.2500, L501.4021 #### [facility] [address] [place], [address] Basophils/100 WBC (Bld) 0.6 % Normal 0-1 [facility] Comment on above: Performed By: #### L 501.9520, L100.0100, L500.2500, L501.4021 #### [facility] [address] [place], [address] Eosinophils/100 WBC (Bld) 5.6 % High 0-5 [facility] Comment on above: Performed By: #### L 501.9520, L100.0100, L500.2500, L501.4021 #### [facility] [address] [place], [address] Erythrocyte distribution width (RBC) [Ratio] 12.3 % Normal 11.6-14.6 [facility] Comment on above: Performed By: #### L 501.9520, L100.0100, L500.2500, L501.4021 #### [facility] [address] [place], [address] Hematocrit (Bld) [Volume fraction] 42.4 % Normal 37-47 [facility] Comment on above: Performed By: #### L 501.9520, L100.0100, L500.2500, L501.4021 #### [facility] [address] [place], [address] Hemoglobin (Bld) [Mass/Vol] 14.9 g/dL Normal 12.0-15.0 [facility] Comment on above: Performed By: #### L 501.9520, L100.0100, L500.2500, L501.4021 #### [facility] [address] [place], [address] IG% 0.400 Normal 0.0-0.9 [facility] Comment on above: Result Comment: IG% - Immature Granulocytes (promyelocytes, myelocytes and metamyelocytes) > 1% indicates that a LEFT SHIFT is Present. Performed By: #### L 501.9520, L100.0100, L500.2500, L501.4021 #### [facility] [address] [place], [address] Lymphocytes/100 WBC (Bld) 35.9 % Normal 19-41 [facility] Comment on above: Performed By: #### L 501.9520, L100.0100, L500.2500, L501.4021 #### [facility] [address] [place], [address] MCH (RBC) [Entitic mass] 30.8 pg Normal 27.0-32.0 [facility] Comment on above: Performed By: #### L 501.9520, L100.0100, L500.2500, L501.4021 #### [facility] [address] [place], [address] MCHC (RBC) [Mass/Vol] 35.1 g/dL Normal 32-36 [facility] Comment on above: Performed By: #### L 501.9520, L100.0100, L500.2500, L501.4021 #### [facility] [address] [place], [address] MCV (RBC) [Entitic vol] 87.6 fL Normal 81-99 [facility] Comment on above: Performed By: #### L 501.9520, L100.0100, L500.2500, L501.4021 #### [facility] [address] [place], [address] Monocytes/100 WBC (Bld) 8.0 % Normal 0-10 [facility] Comment on above: Performed By: #### L 501.9520, L100.0100, L500.2500, L501.4021 #### [facility] [address] [place], [address] Neutrophils/100 WBC (Bld) 49.5 % Normal 47-70 [facility] Comment on above: Performed By: #### L 501.9520, L100.0100, L500.2500, L501.4021 #### [facility] [address] [place], [address] Nucleated RBC (Bld) [#/Vol] 0 10*3/uL Normal 0-5 [facility] Comment on above: Performed By: #### L 501.9520, L100.0100, L500.2500, L501.4021 #### [facility] [address] [place], [address] Platelet mean volume (Bld) [Entitic vol] 10.4 fL Normal 6.2-12.0 [facility] Comment on above: Performed By: #### L 501.9520, L100.0100, L500.2500, L501.4021 #### [facility] [address] [place], [address] Platelets (Bld) [#/Vol] 331 10*3/uL Normal 150-450 [facility] Comment on above: Performed By: #### L 501.9520, L100.0100, L500.2500, L501.4021 #### [facility] [address] [place], [address] RBC (Bld) [#/Vol] 4.84 10*6/uL Normal 4.2-5.4 [facility] Comment on above: Performed By: #### L 501.9520, L100.0100, L500.2500, L501.4021 #### [facility] [address] [place], [address] RDW SD 39.5 fl Normal 35.1-43.9 [facility] Comment on above: Performed By: #### L 501.9520, L100.0100, L500.2500, L501.4021 #### [facility] [address] [place], [address] WBC (Bld) [#/Vol] 7.9 10*3/uL Normal 4.4-11.0 [facility] Comment on above: Performed By: #### L 501.9520, L100.0100, L500.2500, L501.4021 #### [facility] [address] [place], [address] Carbon dioxide, total [Moles /volume] in Central venous bloodOrdered By: Ryan Pearson on 11-23-2024 CO2 [Moles/Vol] 19.7 mmol/L Low 21.0-32.0 [facility] Comment on above: Performed By: #### L 7000.1800, L7400.0280, M1.1999, M100.3200 #### [facility] [address] [place], [address] Chest PA and Lateralon 11-23 Chest PA and Lateral [facility] [address] [place] [address] Chest PA and Lateral MR#: [id number] Acct: [id number] Name: QUE SANCHEZ Rep #: [id number] : 1990 F 34 From: Aby Reynolds nd, MD PCP: Dr. Davide Chao MD Status: REG ER Study: Chest PA and Lateral Date of Exam: 11/23/24 Exam# [id number] Ordering Dr: Ryan Pearson DO PROCEDURE: CHEST PA AND LATERAL 11/23/2024 REASON FOR EXAM: CHEST PAIN TECHNIQUE: CHEST PA AND LATERAL COMPARISON: Chest radiograph 05/08/2018. FINDINGS: Hardware: None. Heart: The heart size is normal. Mediastinum: The mediastinal contour is unremarkable. Lungs: No focal consolidation, pleural effusion or pneumothorax. Bones: The bones are unremarkable. RAD/Chest PA and Lateral IMPRESSION: NEGATIVE CHEST Reading Location: [facility] CC: Dr. Davide Chao MD; Dr. Ryan Pearson DO Asp Net Mvc Developer: Signed Normal [facility] Chloride assayOrdered By: Chris Pearson on 11-23-2024 Chloride [Moles/Vol] 103 mmol/L Normal 98-108 [facility] Comment on above: Performed By: #### L 7000.1800, L7400.0280, .1999, M1.3200 #### [facility] [address] [place], [address] Emergency Department Summary on 11-23-2024 Emergency Department Summary [facility] Medical Records Department [address] [place] [address] Emergency Department Summary 11/23/24 MR#: [id number] Acct: [id number] Name: QUE SANCHEZ Rep #: [id number] : 1990 34 From: Ryan Miner PCP: Dr. Davide Chao MD Status:DEP ER Location: ED HPI History of Present Illness Chief Complaint: Chest Pain Informant: patient Narrative Narrative: Brought in for chest pain 7 PM sharp in nature reported nausea. She feels palpitations. History of A-fib with ablation in 2014 down in [place] at [place]. Currently does not follow with cardiology. Drinks [...] Hypertension, Diabetes, Hypercholesterolemia or Family History 1' [facility] Medical History Multiple personality disorder History [...] chest movem (more content not included)... Normal [facility] Eosinophil percentageOrdered By: Ryan Pearson on 11-23-2024 Eosinophils/100 WBC (Bld) 5.6 % High 0-5 [facility] Erythrocyte distribution wid th ratioOrdered By: Ryan Pearson on 11-23-2024 Erythrocyte distribution width (RBC) [Ratio] 12.3 % 11.6-14.6 [facility] Erythrocyte distribution wid th standard deviationOrdered By: Ryan Pearson on 11-23-2024 Erythrocyte distribution width (RBC) [Ratio] 39.5 fl 35.1-43.9 [facility] Glomerular filtration rate ( GFR) estimation/1.73 sq m using serum, plasma, or whole bOrdered By: Ryan Pearson on 11-23-2024 GFR/1.73 sq M.predicted among non-blacks MDRD (S/P/Bld) [Vol rate/Area] 71 mL/min/{1.73_m2} Normal >60 [facility] Comment on above: mL/min/1.73m2 CKD-EP I Creatinine Equation (2020) Result Comment: mL/m in/1.73m2 CKD-EPI Creatinine Equation (2020) Performed By: #### L 7000.1800, L7400.0280, M100.2000, M100.3200 #### [facility] [address] [place], [address] Hematocrit Auto (Bld) [Volum e fraction]Ordered By: Ryan Pearson on 11-23-2024 Hematocrit (Bld) [Volume fraction] 42.4 % 37-47 [facility] Hemoglobin measurementOrdere d By: Ryan Pearson on 11-23-2024 Hemoglobin (Bld) [Mass/Vol] 14.9 g/dL 12.0-15.0 [facility] Immature granulocytes/100 WB C Auto (Bld)Ordered By: Ryan Pearson on 11-23-2024 Immature granulocytes/100 WBC (Bld) 0.400 % 0.0-0.9 [facility] Comment on above: IG% - Immature Granu locytes (promyelocytes, myelocytes and metamyelocytes) > 1% indicates that a LEFT SHIFT is Present. L499.0042on 11-23-2024 Trop T High Sen Normal <=14 [facility] Comment on above: Result Comment: Canc elled via OM: Order cancelled - Patient discharged Performed By: #### L 7000.1800, L7400.0280, M100.2000, M100.3200 #### [facility] Laboratory [address] [place], [address] L501.4021on 11-23-2024 Trop T High Sen < 6 Normal <=14 [facility] Comment on above: Performed By: #### L 7000.1800, L7400.0280, M100.2000, M100.3200 #### [facility] Laboratory [address] [place], [address] MCV (mean corpuscular volume ) determinationOrdered By: Ryan Pearson on 11-23-2024 MCV (RBC) [Entitic vol] 87.6 fL 81-99 [facility] Mean corpuscular hemoglobin (MCH) determinationOrdered By: Ryan Pearson on 11-23-2024 MCH (RBC) [Entitic mass] 30.8 pg 27.0-32.0 [facility] Mean corpuscular hemoglobin concentration (MCHC) determinationOrdered By: Ryan Pearson on 11-23-2024 MCHC (RBC) [Mass/Vol] 35.1 g/dL 32-36 [facility] Mean platelet volume determi nationOrdered By: Ryan Pearson on 11-23-2024 Platelet mean volume (Bld) [Entitic vol] 10.4 fL 6.2-12.0 [facility] Monocyte percentageOrdered B y: Ryan Pearson on 11-23-2024 Monocytes/100 WBC (Bld) 8.0 % 0-10 [facility] Neutrophil percentageOrdered By: Ryan Pearson on 11-23-2024 Neutrophils/100 WBC (Bld) 49.5 % 47-70 [facility] Nucleated red blood cell per centageOrdered By: Ryan Pearson on 11-23-2024 Nucleated RBC/100 WBC (Bld) [Ratio] 0 % 0-5 [facility] Platelet countOrdered By: Chris Pearson on 11-23-2024 Platelets (Bld) [#/Vol] 331 10*3/uL 150-450 [facility] Potassium measurement (mass/ volume)Ordered By: Ryan Pearson on 11-23-2024 Potassium (Unsp spec) [Mass/Vol] 3.7 mmol/L 3.3-5.1 [facility] RBC Auto (Bld) [#/Vol]Ordere d By: Ryan Pearson on 11-23-2024 RBC (Bld) [#/Vol] 4.84 10*6/uL 4.2-5.4 [facility] Serum creatinine measurement (mass/volume)Ordered By: Ryan Pearson on 11-23-2024 Creatinine [Mass/Vol] 1.06 mg/dL Normal 0.70-1.20 [facility] Comment on above: Performed By: #### L 7000.1800, L7400.0280, M1.1999, M1.3200 #### [facility] [address] [place], [address] Serum glucose measurement (m ass/volume)Ordered By: Ryan Pearson on 11-23-2024 Glucose [Mass/Vol] 89 mg/dL Normal 70-99 [facility] Comment on above: Performed By: #### L 7000.1800, L7400.0280, M1.1999, M100.3200 #### [facility] [address] [place], [address] Serum or plasma calcium edilia urement (mass/volume)Ordered By: Ryan Pearson on 11-23-2024 Calcium [Mass/Vol] 9.9 mg/dL Normal 7.6-11.0 [facility] Comment on above: Performed By: #### L 7000.1800, L7400.0280, M1.1999, M100.3200 #### [facility] [address] [place], [address] Serum or plasma urea nitroge n measurement (mass/volume)Ordered By: Ryan Larissa on 11-23-2024 Urea nitrogen [Mass/Vol] 11 mg/dL Normal 4-19 [facility] Comment on above: Performed By: #### L 7000.1800, L7400.0280, , M1.3200 #### [facility] [address] [place], [address] Sodium levelOrdered By: Ryan Pearson on 11-23-2024 Sodium [Moles/Vol] 139 mmol/L Normal 133-145 [facility] Comment on above: Performed By: #### L 7000.1800, L7400.0280, , M100.3200 #### [facility] [address] [place], [address] TSH DL <= 0.005 mIU/L QnOrde red By: Ryan Pearson on 11-23-2024 TSH Qn 1.310 uIU/mL 0.300-4.200 [facility] Thyroid Stim Hormone (TSH)on 11-23-2024 TSH 1.310 uIU/mL Normal 0.300-4.200 [facility] Comment on above: Performed By: #### L 7000.1800, L7400.0280, , M100.3200 #### [facility] [address] [place], [address] Troponin T.cardiac [Mass/vol ume] in Serum or Plasma by High sensitivity methodOrdered By: Ryan Pearson on 11-23-2024 Troponin T.cardiac High sensitivity method [Mass/Vol] < 6 ng/L <14 [facility] White blood cell (WBC) count Ordered By: Ryan Pearson on 11-23-2024 WBC (Bld) [#/Vol] 7.9 10*3/uL 4.4-11.0 [facility] Serum human chorionic gonado tropin detection for pregnancyOrdered By: Melissa Saxena on 11-15-2024 HCG ( test) Ql < 1 mIU/mL <9 [facility] Comment on above: Gestational Age0.2-1 Week: 5-50 mIU/mL1-2 Weeks: 50-500 mIU/mL2-3 Weeks: 100-5000 mIU/mL3-4 Weeks: 500-10,000 mIU/mL4-5 Weeks:1000-50,000 mIU/mL5-6 Weeks: 10,000-100,000 mIU/mL6-8 Weeks: 15,000-200,000 mIU/mL2-3 Months:10,000-100,000 mIU/mL hCG Titer Quant., Serumon HCG QUANT. < 1 Normal <9 non-preg [facility] Comment on above: Result Comment: Gest ational Age 0.2-1 Week: 5-50 mIU/mL 1-2 Weeks: 50-500 mIU/mL 2-3 Weeks: 100-5000 mIU/mL 3-4 Weeks: 500-10,000 mIU/mL 4-5 Weeks:1000-50,000 mIU/mL 5-6 Weeks: 10,000-100,000 mIU/mL 6-8 Weeks: 15,000-200,000 mIU/mL 2-3 Months:10,000-100,000 mIU/mL Performed By: #### L 7000.1800, L7400.0280, M100.2000, M100.3200 #### [facility] Laboratory [address] [place], [address] PROGESTERONE 4317on 11-14-19 25 PROGESTERONE 9.5 ng/mL Normal . [facility] Comment on above: Order Comment: N 21 day lab Result Comment: Foll icular phase 0.1 -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 [facility] Immature granulocytes/100 WBC (Bld) 0.3 % [facility] Lymphocytes (Bld) [#/Vol] 2.29 10*3/uL [facility] Lymphocytes/100 WBC (Bld) 24.1 % [facility] MCH (RBC) [Entitic mass] 27.8 pg 26.0 - 34.0 pg [facility] MCHC (RBC) [Mass/Vol] 32.0 g/dL 30.5 - 36.0 g/dL [facility] MCV (RBC) [Entitic vol] 86.9 fL 80.0 - 100.0 fL [facility] Monocytes (Bld) [#/Vol] 0.62 10*3/uL [facility] Monocytes/100 WBC (Bld) 6.5 % [facility] Neutrophils (Bld) [#/Vol] 6.26 10*3/uL [facility] Neutrophils/100 WBC (Bld) 65.8 % [facility] Nucleated RBC (Bld) [#/Vol] [facility] Nucleated RBC/100 WBC (Bld) [Ratio] 0.0 % /100 WBC [facility] Platelet mean volume (Bld) [Entitic vol] 10.2 fL 9.0 - 12.7 fL [facility] Platelets (Bld) [#/Vol] 337 10*3/uL [facility] RBC (Bld) [#/Vol] 4.89 10*6/uL 3.90 - 5.2 0 m/uL [facility] WBC (Bld) [#/Vol] 9.52 10*3/uL [facility] Basophils (Bld) [#/Vol] 0.05 10*3/uL Normal <0.11 [facility] Comment on above: Order Comment: Speci men Type: BLOOD SPECIMENOrdering Facility: [facility] Address: [address] [place] [address] Performed By: #### 5 7021-8 ####[facility] LABCLIA [id number] [place] [address], [place] [address] [place] Basophils/100 WBC (Bld) 0.5 % Normal [facility] Comment on above: Order Comment: Speci men Type: BLOOD SPECIMENOrdering Facility: [facility] Address: [address] [place] [address] Performed By: #### 5 7021-8 ####[facility] LABCLIA [id number] [place] [address] [place] Differential cell count method Nom (Bld) Auto Normal [facility] Comment on above: Order Comment: Speci men Type: BLOOD SPECIMENOrdering Facility: [facility] Address: [address] [place] [address] Performed By: #### 5 7021-8 ####[facility] LABCLIA [id number] [place] [address] [place] Eosinophils (Bld) [#/Vol] 0.27 10*3/uL Normal <0.46 [facility] Comment on above: Order Comment: Speci men Type: BLOOD SPECIMENOrdering Facility: [facility] Address: [address] [place] [address] Performed By: #### 5 7021-8 ####[facility] LABCLIA [id number] [place] [address] [place] Eosinophils/100 WBC (Bld) 2.8 % Normal [facility] Comment on above: Order Comment: Speci men Type: BLOOD SPECIMENOrdering Facility: [facility] Address: [address] [place] [address] Performed By: #### 5 7021-8 ####[facility] LABCLIA [id number] [place] [address] [place] Erythrocyte distribution width (RBC) [Ratio] 14.9 % Normal 11.5-15.0 [facility] Comment on above: Order Comment: Speci men Type: BLOOD SPECIMENOrdering Facility: [facility] Address: [address] [place] [address] Performed By: #### 5 7021-8 ####[facility] LABCLIA [id number] [place] [address] [place] Hematocrit (Bld) [Volume fraction] 42.5 % Normal 36.0-46.0 [facility] Comment on above: Order Comment: Speci men Type: BLOOD SPECIMENOrdering Facility: [facility] Address: [address] [place] [address] Performed By: #### 5 7021-8 ####[facility] LABIA [id number] [place] [address] [place] Hemoglobin (Bld) [Mass/Vol] 13.6 g/dL Normal 11.5-15.5 [facility] Comment on above: Order Comment: Speci men Type: BLOOD SPECIMENOrdering Facility: [facility] Address: [address] [place] [address] Performed By: #### 5 7021-8 ####[facility] LABIA [id number] [place] [address] [place] Immature granulocytes (Bld) [#/Vol] 0.03 10*3/uL Normal <0.10 [facility] [facility] Comment on above: Order Comment: Speci men Type: BLOOD SPECIMENOrdering Facility: [facility] Address: [address] [place] [address] Performed By: #### 5 7021-8 ####[facility] LABIA [id number] [place] [address] [place] Immature granulocytes/100 WBC (Bld) 0.3 % Normal [facility] Comment on above: Order Comment: Speci men Type: BLOOD SPECIMENOrdering Facility: [facility] Address: [address] [place] [address] Performed By: #### 5 7021-8 ####[facility] LABCLIA [id number] [place] [address] [place] Lymphocytes (Bld) [#/Vol] 2.29 10*3/uL Normal 1.00-4.00 [facility] Comment on above: Order Comment: Speci men Type: BLOOD SPECIMENOrdering Facility: [facility] Address: [address] [place] [address] Performed By: #### 5 7021-8 ####[facility] LABIA [id number] [place] [address] [place] Lymphocytes/100 WBC (Bld) 24.1 % Normal [facility] Comment on above: Order Comment: Speci men Type: BLOOD SPECIMENOrdering Facility: [facility] Address: [address] [place] [address] Performed By: #### 5 7021-8 ####[facility] LABIA [id number] [place] [address] [place] MCH (RBC) [Entitic mass] 27.8 pg Normal 26.0-34.0 [facility] Comment on above: Order Comment: Speci men Type: BLOOD SPECIMENOrdering Facility: [facility] Address: [address] [place] [address] Performed By: #### 5 7021-8 ####[facility] LABIA [id number] [place] [address] [place] MCHC (RBC) [Mass/Vol] 32.0 g/dL Normal 30.5-36.0 [facility] Comment on above: Order Comment: Speci men Type: BLOOD SPECIMENOrdering Facility: [facility] Address: [address] [place] [address] Performed By: #### 5 7021-8 ####[facility] LABIA [id number] [place] [address] [place] MCV (RBC) [Entitic vol] 86.9 fL Normal 80.0-100.0 [facility] Comment on above: Order Comment: Speci men Type: BLOOD SPECIMENOrdering Facility: [facility] Address: [address] [place] [address] Performed By: #### 5 7021-8 ####[facility] LABCLIA [id number] [place] [address] [place] Monocytes (Bld) [#/Vol] 0.62 10*3/uL Normal <0.87 [facility] Comment on above: Order Comment: Speci men Type: BLOOD SPECIMENOrdering Facility: [facility] Address: [address] [place] [address] Performed By: #### 5 7021-8 ####[facility] LABCLIA [id number] [place] [address] [place] Monocytes/100 WBC (Bld) 6.5 % Normal [facility] Comment on above: Order Comment: Speci men Type: BLOOD SPECIMENOrdering Facility: [facility] Address: [address] [place] [address] Performed By: #### 5 7021-8 ####[facility] LABCLIA [id number] [place] [address] [place] Neutrophils (Bld) [#/Vol] 6.26 10*3/uL Normal 1.45-7.50 [facility] Comment on above: Order Comment: Speci men Type: BLOOD SPECIMENOrdering Facility: [facility] Address: [address] [place] [address] Performed By: #### 5 7021-8 ####[facility] LABCLIA [id number] [place] [address] [place] Neutrophils/100 WBC (Bld) 65.8 % Normal [facility] Comment on above: Order Comment: Speci men Type: BLOOD SPECIMENOrdering Facility: [facility] Address: [address] [place] [address] Performed By: #### 5 7021-8 ####[facility] LABCLIA [id number] [place] [address] [place] Nucleated RBC (Bld) [#/Vol] 10*3/uL Normal <0.01 [facility] Comment on above: Order Comment: Speci men Type: BLOOD SPECIMENOrdering Facility: [facility] Address: [address] [place] [address] Performed By: #### 5 7021-8 ####[facility] LABIA [id number] [place] [address] [place] Nucleated RBC/100 WBC (Bld) [Ratio] 0.0 /100 WBC Normal [facility] Comment on above: Order Comment: Speci men Type: BLOOD SPECIMENOrdering Facility: [facility] Address: [address] [place] [address] Performed By: #### 5 7021-8 ####[facility] LABIA [id number] [place] [address] [place] Platelet mean volume (Bld) [Entitic vol] 10.2 fL Normal 9.0-12.7 [facility] Comment on above: Order Comment: Speci men Type: BLOOD SPECIMENOrdering Facility: [facility] Address: [address] [place] [address] Performed By: #### 5 7021-8 ####[facility] LABIA [id number] [place] [address] [place] Platelets (Bld) [#/Vol] 337 10*3/uL Normal 150-400 [facility] Comment on above: Order Comment: Speci men Type: BLOOD SPECIMENOrdering Facility: [facility] Address: [address] [place] [address] Performed By: #### 5 7021-8 ####[facility] LABIA [id number] [place] [address] [place] RBC (Bld) [#/Vol] 4.89 10*6/uL Normal 3.90-5.20 [facility] Comment on above: Order Comment: Speci men Type: BLOOD SPECIMENOrdering Facility: [facility] Address: [address] [place] [address] Performed By: #### 5 7021-8 ####[facility] LABCLIA [id number] [address] [address] [place] WBC (Bld) [#/Vol] 9.52 10*3/uL Normal 3.70-11.00 [facility] Comment on above: Order Comment: Speci men Type: BLOOD SPECIMENOrdering Facility: [facility] Address: [address] [employer] [place] [address] [employer] [employer] [facility] [place] [id number] Performed By: #### 5 7021-8 ####[facility] LABCLIA [id number] [place] [id number] [place] CNOVon 10-17-2023 CNOV Office Visit (FAMPWS ) QUE ESCOBAR ([id number]) 1990 [facility] Date Time Provider Department 10/17/23 11:40 AM [...] pulses bilaterally. (more content not included)... Normal [facility] HbA1c (Bld)on 10-17-2023 Average glucose Estimated from glycated hemoglobin (Bld) [Mass/Vol] 105 mg/dL [facility] Comment on above: eAG: (Estimated aver age glucose) is a calculated value from HgbA1c and is energy conservation representative of the average blood glucose level in the last 2-3 month period. HbA1c (Bld) [Mass fraction] 5.3 % 4.3 - 5.6 % [facility] Comment on above: [place] Diabetes As sociation guidelines indicate that patients with HgbA1c in the range 5.7-6.4% are at increased risk for development of diabetes, and intervention by lifestyle modification may be beneficial. HgbA1c greater or equal to 6.5% is considered diagnostic of diabetes. [facility] Average glucose Estimated from glycated hemoglobin (Bld) [Mass/Vol] 105 mg/dL Normal [facility] Comment on above: Order Comment: Casandra moran Type: BLOOD SPECIMENOrdering Facility: [facility] Address: [address] [place] [address] Result Comment: eAG: (Estimated average glucose) is a calculated value from HgbA1c and is energy conservation representative of the average blood glucose level in the last 2-3 month period. Performed By: #### 5 5454-3 ####[facility] LABCLIA [id number] [place] [address] [place] HbA1c (Bld) [Mass fraction] 5.3 % Normal 4.3-5.6 [facility] Comment on above: Order Comment: Casandra moran Type: BLOOD SPECIMENOrdering Facility: [facility] Address: [address] [place] [address] Result Comment: Amer [place] Diabetes Association guidelines indicate that patients with HgbA1c in the range 5.7-6.4% are at increased risk for development of diabetes, and intervention by lifestyle modification may be beneficial. HgbA1c greater or equal to 6.5% is considered diagnostic of diabetes. Performed By: #### 5 5454-3 ####[facility] LABCLIA [id number] [place] [address] [place] TSH SerPl-aCncon 10-17-2023 TSH Qn 0.885 m[IU]/L Normal 0.270-4.200 [facility] Comment on above: Order Comment: Casandra moran Type: BLOOD SPECIMENOrdering Facility: [facility] Address: [address] [place] [address] Result Comment: If t he patient is , TSH reference range varies by gestational period: First Trimester (weeks 9-12): 0.180-2.990 mIU/L Second Trimester: 0.110-3.980 mIU/L Third Trimester: 0.480-4.710 mIU/L Howard Callaway et al. A Practical Approach for the Verifications and Determination of Site- and Trimester-Specific Reference Intervals for Thyroid Function tests in . Thyroid, 2019:29:3:412-420. John Siddiqi, et al. 2017 Guidelines of the [place] Thyroid Association for the Diagnosis and Management of Thyroid Disease during and the . Thyroid, 2017:27:3:315-389. Performed By: #### 2 4321-2, 3016-3 ####[facility] LABCLIA [id number] [place] [address] [place] Basophil percentageOrdered B y: Melissa [facility] on 10-[facility]-2023 Hemoglobin (Bld) [Mass/Vol] 11.9 g/dL 12.0-15.0 [facility] WBC (Bld) [#/Vol] 5.7 10*3/uL 4.4-11.0 [facility] Determination of erythrocyte mean corpuscular volume (MCV)Ordered By: Melissakyaw Saxena on 10-03-2023 MCV (RBC) [Entitic vol] 85.5 fL 81-99 [facility] Erythrocyte distribution wid th ratioOrdered By: [facility] on 10-03-2023 Erythrocyte distribution width (RBC) [Ratio] 14.6 % 11.6-14.6 [facility] Erythrocyte distribution wid th standard deviationOrdered By: [facility] on 10-03-2023 Erythrocyte distribution width (RBC) [Entitic vol] 45.8 fL 35.1-43.9 [facility] Hematocrit Auto (Bld) [Volum e fraction]Ordered By: [facility] on 10-03-2023 Hematocrit (Bld) [Volume fraction] 36.6 % 37-47 [facility] Laboratory - Hematology and Cell countsOrdered By: [facility] on 10-03-2023 MCH (RBC) [Entitic mass] 27.8 pg 27.0-32.0 [facility] MCHC (RBC) [Mass/Vol] 32.5 g/dL 32-36 [facility] Platelet mean volume (Bld) [Entitic vol] 9.9 fL 6.2-12.0 [facility] Platelets (Bld) [#/Vol] 282 10*3/uL 150-450 [facility] RBC Auto (Bld) [#/Vol]Ordere d By: Melissa Saxena on 10-03-2023 RBC (Bld) [#/Vol] 4.28 10*6/uL 4.2-5.4 [facility] INFLUENZA A&B MOLECULAR (POC )on 08-10-2023 Flu A (POCT) Negative Negative [facility] Flu B (POCT) Negative Negative [facility] Procedural Control Valid [facility] UA DIP, URINE (POC)on 2023 BILIRUBIN UA (POCT) Negative Negative [facility] CLARITY UA (POCT) Clear [facility] COLOR UA (POCT) Yellow [facility] GLUCOSE UA (POCT) Negative Negative mg/dL [facility] Hemoglobin Ql (U) Small Abnormal Negative [facility] KETONE UA (POCT) Negative Negative mg/dL [facility] LEUKOCYTES UA (POCT) Negative Negative [facility] NITRITE [facility] (POCT) Negative [facility] PH UA (POCT) 6.0 4.5 - 8.0 [facility] Protein Ql (U) Negative Negative mg/dL [facility] SPECIFIC GRAVITY UA (POCT) 1.015 1.005 - 1.030 [facility] UROBILINOGEN UA (POCT) 0.2 E.U./dL Kelly l E.U./dL [facility] Serum or plasma choriogonado tropin detectionOrdered By: Love Castillo on 07-13-2023 HCG ( test) Ql < 1 mIU/mL <4 [facility] Comment on above: hCG levels with Gest ational AgeGestational Age hCG mIU/mL (IU/L)0.2 - 1 week 5 - 501-2 weeks 50 - 5002-3 weeks 100 - 47705-4 weeks 500 - 586461-8 weeks 1000 - 526252-9 weeks 96005 - 100,0006-8 weeks 81885 - 200,0002-3 months 01744 - 100,000 Absolute lymphocyte countOrd ered By: Melissa Saxena on 06-28-2023 Lymphocytes Auto (Unsp spec) [#/Vol] 1.74 10*3/uL 0.83-4.51 [facility] Automated lymphocyte count a s percentage of total leukocytesOrdered By: Melissa Saxena on 06-28-2023 Lymphocytes/100 WBC Auto (Unsp spec) 29.0 % 19-41 [facility] Basophil percentageOrdered B y: Melissa Saxena on 06-28-2023 Basophils/100 WBC (Bld) 0.8 % 0-1 [facility] Eosinophils/100 WBC (Bld) 5.7 % 0-5 [facility] Hemoglobin (Bld) [Mass/Vol] 11.9 g/dL 12.0-15.0 [facility] Monocytes/100 WBC (Bld) 6.7 % 0-10 [facility] Neutrophils (Bld) [#/Vol] 3.5 10*3/uL 2.0-7.7 [facility] Neutrophils/100 WBC (Bld) 57.5 % 47-70 [facility] WBC (Bld) [#/Vol] 6.0 10*3/uL 4.4-11.0 [facility] Chlamydia trachomatis rRNA d etection by probe and target amplification methodOrdered By: Love Castillo on 06-28-2023 C. trachomatis rRNA MAYTE+probe Ql (Unsp spec) Negative Negative [facility] Determination of erythrocyte mean corpuscular volume (MCV)Ordered By: Melissa Saxena on 06-28-2023 MCV (RBC) [Entitic vol] 88.7 fL 81-99 [facility] Erythrocyte distribution wid th ratioOrdered By: Melissa Saxena on 06-28-2023 Erythrocyte distribution width (RBC) [Ratio] 13.7 % 11.6-14.6 [facility] Erythrocyte distribution wid th standard deviationOrdered By: Melissa Saxena on 06-28-2023 Erythrocyte distribution width (RBC) [Entitic vol] 44.3 fL 35.1-43.9 [facility] Gram stain for investigation of transfusion reactionOrdered By: Love Castillo on 06-28-2023 Microscopic observation Gram stain Nom (Unsp spec) [facility] Microscopic observation Gram stain Nom (Unsp spec) [facility] Hematocrit Auto (Bld) [Volum e fraction]Ordered By: Melissa Saxena on 06-28-2023 Hematocrit (Bld) [Volume fraction] 37.6 % 37-47 [facility] Immature granulocytes/100 WB C Auto (Bld)Ordered By: Melissa Saxena on 06-28-2023 Immature granulocytes/100 WBC (Bld) 0.300 % 0.0-0.9 [facility] Comment on above: IG% - Immature Granu locytes (promyelocytes, myelocytes and metamyelocytes) > 1% indicates that a LEFT SHIFT is Present. Laboratory - Hematology and Cell countsOrdered By: Melissa Saxena on 06-28-2023 MCH (RBC) [Entitic mass] 28.1 pg 27.0-32.0 [facility] MCHC (RBC) [Mass/Vol] 31.6 g/dL 32-36 [facility] Nucleated RBC/100 WBC (Bld) [Ratio] 0 % 0-5 [facility] Platelets (Bld) [#/Vol] 388 10*3/uL 150-450 [facility] Laboratory - Microbiology an d Antimicrobial susceptibilityOrdered By: Love Castillo on 06-28-2023 N. gonorrhoeae DNA MAYTE+probe Ql (Unsp spec) Negative Negative [facility] Comment on above: Performed at: =[address] [id number] Director: Rita Vallecillo MD, Phone: [phone] No Panel InformationOrdered By: Love Castillo on 06-28-2023 Genital Culture Neisseria or beta-hemolytic Streptococcus isolated. [facility] Genital Culture Neisseria or beta-hemolytic Streptococcus isolated. [facility] No Panel Informationon 06-28 POC Bacterial Vaginitis (Rapid) Negative [facility] POC Trichomonas (Rapid) Negative [facility] Platelet mean volume Bulmaro-Ec ker (Bld) [Entitic vol]Ordered By: Melissa Saxena on 06-28-2023 Platelet mean volume (Bld) [Entitic vol] 9.7 fL 6.2-12.0 [facility] RBC Auto (Bld) [#/Vol]Ordere d By: Melissa Hemanth on 06-28-2023 RBC (Bld) [#/Vol] 4.24 10*6/uL 4.2-5.4 [facility] Serum or plasma thyroid stim ulating hormone (TSH) measurement (units/volume)Ordered By: Melissa Saxena on 06-28-2023 TSH Qn 1.21 uIU/mL 0.358-3.74 [facility] Urinalysis complete W Reflex Culture panel (U)on 06-07-2023 Appearance (U) Hazy Abnormal Clear [facility] Bilirubin (U) [Mass/Vol] Negative NEGATIVE [facility] Color (U) Yellow Straw, Yellow [facility] Crystals.amorphous Computer assisted (U) [#/Area] 1+ NONE, 1+, 2+ /HPF [facility] Glucose Auto test strip (U) [Mass/Vol] Negative NEGATIVE mg/dL [facility] Interpretation and review of laboratory results Abnormal [facility] Ketones (U) [Mass/Vol] Negative NEGAT JESUS mg/dL [facility] Leukocyte clumps Auto (Urine sed) [#/Area] FEW Reference range not established. /HPF [facility] Leukocyte esterase Auto test strip Ql (U) Negative NEGATIVE [facility] Mucus Auto (Urine sed) [#/Area] 1+ Reference range not established. /LPF [facility] Nitrite Auto test strip Ql (U) Negative NEGATIVE [facility] pH (U) 7.0 [pH] 5.0, 5.5, 6.0, 6.5, 7.0, 7.5, 8.0 [facility] Protein (U) [Mass/Vol] 100 (2+) Abnormal NEGAT JEUSS mg/dL [facility] RBC (U) [#/Vol] LARGE (3+) Abnormal NEGATIVE [facility] RBC Auto (Urine sed) [#/Area] >20 Abnormal NONE, 1-2, 3-5 /HPF [facility] Specific gravity (U) [Rel density] 1.020 1.005 - 1.035 [facility] Urobilinogen (U) [Mass/Vol] mg/dL NINF - 2.0 mg/dL [facility] WBC Auto (Urine sed) [#/Area] 21-50 Abnormal 1-5, NONE /HPF [facility] ANTIBODY IDENTIFICATIONon Blood group antibody investigation (P/RBC) [Interp] Inconclusive [facility] Comment on above: Performed By: #### 5 902-2 #### RAUDEL MENJIVAR ([id number]) [facility] ([facility] [address] [place] [address] CASE # [facility] Comment on above: Performed By: #### 5 902-2 #### RAUDEL MENJIVAR ([id number]) [facility] ([facility]) [address] [place] [address] Bacteria identifiedon 2023 Bacteria identified Cx Nom (U) Test: Urine Culture Specimen Source: Clean Catch/Voided Specimen Type: Urine Specimen Date: 06/06/2023 11:41 PM Result Date: 06/08/2023 8:53 AM Result Status: Final result Abnormal: No Resulting Lab: [facility] [address] [place] [address] CULTURE No growth [facility] Comment on above: Performed By: #### 5 902-2 #### RAUDEL MENJIVAR ([id number]) [facility] ([facility]) [address] [place] [address] Basic metabolic 2000 panelon 06-06-2023 Anion gap [Moles/Vol] 11 mmol/L 10 - 2 0 mmol/L [facility] Calcium [Mass/Vol] 9.0 mg/dL 8.6 - 10. 3 mg/dL [facility] Chloride [Moles/Vol] 107 mmol/L 98 - 10 7 mmol/L [facility] CO2 [Moles/Vol] 25 mmol/L 21 - 32 mmol/L [facility] Creatinine [Mass/Vol] 0.79 mg/dL 0.50 - 1.05 mg/dL [facility] GFR/1.73 sq M.predicted MDRD (S/P/Bld) [Vol rate/Area] - PINF [facility] Comment on above: Calculations of yolanda mated GFR are performed using the 2020 CKD-EPI Study Refit equation without the race variable for the IDMS-Traceable creatinine methods. https://jasn.asnjournals.org/content/early//ASN.69310 38667 Glucose [Mass/Vol] 96 mg/dL 74 - 99 mg/dL [facility] Interpretation and review of laboratory results Normal [facility] Potassium [Moles/Vol] 3.9 mmol/L 3.5 - 5.3 mmol/L [facility] Sodium [Moles/Vol] 139 mmol/L 136 - 145 mmol/L [facility] Urea nitrogen [Mass/Vol] 12 mg/dL 6 - 23 mg/dL [facility] Anion gap [Moles/Vol] 11 mmol/L Normal 10-20 [facility] Comment on above: Performed By: #### 2 4321-2 ####RAUDEL MENJIVAR ([id number])[facility] ([facility])[address] [place] [address] Calcium [Mass/Vol] 9.0 mg/dL Normal 8.6-10.3 [facility] Comment on above: Performed By: #### 2 4321-2 ####RAUDEL MENJIVAR ([id number])[facility] ([facility] [place] [address] Chloride [Moles/Vol] 107 mmol/L Normal 98-107 [facility] Comment on above: Performed By: #### 2 4321-2 ####RAUDEL MENJIVAR ([id number])[facility] ([facility])[address] [place] [address] CO2 [Moles/Vol] 25 mmol/L Normal 21-32 [facility] Comment on above: Performed By: #### 2 4321-2 ####RAUDEL MENJIVAR ([id number])[facility] ([facility])[address] [place] [address] Creatinine [Mass/Vol] 0.79 mg/dL Normal 0.50-1.05 [facility] Comment on above: Performed By: #### 2 4321-2 ####RAUDEL MENJIVAR ([id number])[facility] ([facility])[address] [place] [address] GFR/1.73 sq M.predicted MDRD (S/P/Bld) [Vol rate/Area] mL/min/{1.73_m2} Normal >60 [facility] Comment on above: Result Comment: Calc ulations of estimated GFR are performed using the 2020 CKD-EPI Study Refit equation without the race variable for the IDMS-Traceable creatinine methods. https://jasn.asnjournals.org/content/early//ASN.66301 03855 Performed By: #### 2 4321-2 ####RAUDEL MENJIVAR ([id number])[facility] ([facility])[address] [place] [address] Glucose [Mass/Vol] 96 mg/dL Normal 74-99 [facility] Comment on above: Performed By: #### 2 4321-2 ####RAUDEL MENJIVAR ([id number])[facility] ([facility])[address] [place] [address] Potassium [Moles/Vol] 3.9 mmol/L Normal 3.5-5.3 [facility] Comment on above: Performed By: #### 2 4321-2 ####RAUDEL MENJIVAR ([id number])[facility] ([facility])[address] [place] [address] Sodium [Moles/Vol] 139 mmol/L Normal 136-145 [facility] Comment on above: Performed By: #### 2 4321-2 ####RAUDEL MENJIVAR ([id number])[facility] ([facility])[address] [place] [address] Urea nitrogen [Mass/Vol] 12 mg/dL Normal 6-23 [facility] Comment on above: Performed By: #### 2 4321-2 ####RAUDEL MENJIVAR ([id number])[facility] ([facility])[address] [place] [address] Blood type and Indirect anti body screen panel (Bld)on 06-06-2023 ABO group Nom (Bld) A Normal [facility] Comment on above: Order Comment: Revie w your Rh Negative female patient's potential need for Rh Immune Globulin (RhIg)administration. Performed By: #### 3 4532-2 ####RAUDEL MENJIVAR ([id number])[facility] BLOOD [facility] ([facility])[address] [place] [address] Blood group antibody screen Ql Positive [facility] Comment on above: Order Comment: Revie w your Rh Negative female patient's potential need for Rh Immune Globulin (RhIg)administration. Performed By: #### 3 4532-2 ####RAUDEL MENJIVAR ([id number])[facility] BLOOD [facility] ([facility])[address] [place] [address] D Ag Ql (Bld) Negative [facility] Comment on above: Order Comment: Revie w your Rh Negative female patient's potential need for Rh Immune Globulin (RhIg)administration. Performed By: #### 3 4532-2 ####RAUDEL MENJIVAR ([id number])[facility] BLOOD [facility] ([facility])[address] [place] [address] CBC W Auto Differential pane l (Bld)on 06-06-2023 Basophils (Bld) [#/Vol] 0.03 10*3/uL [facility] Basophils/100 WBC (Bld) 0.4 % 0.0 - 2.0 % [facility] Eosinophils (Bld) [#/Vol] 0.39 10*3/uL [facility] Eosinophils/100 WBC (Bld) 4.8 % 0.0 - 6.0 % [facility] Erythrocyte distribution width (RBC) [Ratio] 14.9 % High 11.5 - 14.5 % [facility] Hematocrit (Bld) [Volume fraction] 37.0 % 36.0 - 46.0 % [facility] Hemoglobin (Bld) [Mass/Vol] 11.8 g/dL Low 12.0 - 16.0 g/dL [facility] Immature granulocytes (Bld) [#/Vol] 0.02 10*3/uL [facility] Immature granulocytes/100 WBC (Bld) 0.2 % 0.0 - 0.9 % [facility] Comment on above: Immature Granulocyte Count (IG) includes promyelocytes, myelocytes and metamyelocytes but does not include bands. Percent differential counts (%) should be interpreted in the context of the absolute cell counts (cells/UL). Interpretation and review of laboratory results Abnormal [facility] Lymphocytes (Bld) [#/Vol] 2.86 10*3/uL [facility] Lymphocytes/100 WBC (Bld) 35.0 % 13.0 - 44.0 % [facility] MCH (RBC) [Entitic mass] 28.6 pg 26.0 - 34.0 pg [facility] MCHC (RBC) [Mass/Vol] 31.9 g/dL Low 32.0 - 36.0 g/dL [facility] MCV (RBC) [Entitic vol] 90 fL 80 - 100 fL [facility] Monocytes (Bld) [#/Vol] 0.61 10*3/uL [facility] Monocytes/100 WBC (Bld) 7.5 % 2.0 - 10.0 % [facility] Neutrophils (Bld) [#/Vol] 4.26 10*3/uL [facility] Comment on above: Percent differential counts (%) should be interpreted in the context of the absolute cell counts (cells/uL). Neutrophils/100 WBC (Bld) 52.1 % 40.0 - 80.0 % [facility] Nucleated RBC/100 WBC (Bld) [Ratio] 0.0 % [facility] Platelets (Bld) [#/Vol] 363 10*3/uL [facility] RBC (Bld) [#/Vol] 4.12 10*6/uL [facility] WBC (Bld) [#/Vol] 8.2 10*3/uL [facility] Basophils (Bld) [#/Vol] 0.03 x10*3/uL Normal 0.00-0.10 [facility] Comment on above: Performed By: #### 5 7021-8 ####RAUDEL MENJIVAR ([id number])[facility] ([facility])[address] [place] [address] 87953 Basophils/100 WBC (Bld) 0.4 % Normal 0.0-2.0 [facility] Comment on above: Performed By: #### 7021-8 ####RAUDEL MENJIVAR ([id number])[facility] ([facility])[address] [place] [address] Eosinophils (Bld) [#/Vol] 0.39 x10*3/uL Normal 0.00-0.70 [facility] Comment on above: Performed By: #### 70-8 ####RAUDEL MENJIVAR ([id number])[facility] ([facility])[address] [place] [address] 98653 Eosinophils/100 WBC (Bld) 4.8 % Normal 0.0-6.0 [facility] Comment on above: Performed By: #### 70-8 ####RAUDEL MENJIVAR ([id number])[facility] ([facility])[address] [place] [address] Erythrocyte distribution width (RBC) [Ratio] 14.9 % High 11.5-14.5 [facility] Comment on above: Performed By: #### 7021-8 ####RAUDEL MENJIVAR ([id number])[facility] ([facility])[address] [place], [place] [id number] Hematocrit (Bld) [Volume fraction] 37.0 % Normal 36.0-46.0 [facility] Comment on above: Performed By: #### 7021-8 ####RAUDEL MENJIVAR ([id number])[facility] ([facility])[address] [place], [place] [phone] Hemoglobin (Bld) [Mass/Vol] 11.8 g/dL Low 12.0-16.0 [facility] Comment on above: Performed By: #### 7021-8 ####RAUDEL MENJIVAR ([id number])[facility] ([facility])[address] [place] [address]4973 Immature granulocytes (Bld) [#/Vol] 0.02 x10*3/uL Normal 0.00-0.70 [facility] Comment on above: Performed By: #### 5 7021-8 ####RAUDEL MENJIVAR ([id number])[facility] ([facility])[address] [place] [address] 62368 Immature granulocytes/100 WBC (Bld) 0.2 % Normal 0.0-0.9 [facility] Comment on above: Result Comment: Yuliya ture Granulocyte Count (IG) includes promyelocytes, myelocytes and metamyelocytes but does not include bands. Percent differential counts (%) should be interpreted in the context of the absolute cell counts (cells/UL). Performed By: #### 5 7021-8 ####RAUDEL MENJIVAR ([id number])[facility] ([facility])[address] [place] [address] 72304 Lymphocytes (Bld) [#/Vol] 2.86 x10*3/uL Normal 1.20-4.80 [facility] Comment on above: Performed By: #### 5 7021-8 ####RAUDEL MENJIVAR ([id number])[facility] ([facility])[address] [place] [address] 53601 Lymphocytes/100 WBC (Bld) 35.0 % Normal 13.0-44.0 [facility] Comment on above: Performed By: #### 5 7021-8 ####RAUDEL MENJIVAR ([id number])[facility] ([facility])[address] [place] [address] 08104 MCH (RBC) [Entitic mass] 28.6 pg Normal 26.0-34.0 [facility] Comment on above: Performed By: #### 5 7021-8 ####RAUDEL MENJIVAR ([id number])[facility] ([facility])[address] [place] [address] 76655 MCHC (RBC) [Mass/Vol] 31.9 g/dL Low 32.0-36.0 [facility] Comment on above: Performed By: #### 5 7021-8 ####RAUDEL MENJIVAR ([id number])[facility] ([facility])[address] [place] [address] 59256 MCV (RBC) [Entitic vol] 90 fL Normal 80-100 [facility] Comment on above: Performed By: #### 5 7021-8 ####RAUDEL MENJIVAR ([id number])[facility] ([facility])[address] [place] [address] 10188 Monocytes (Bld) [#/Vol] 0.61 x10*3/uL Normal 0.10-1.00 [facility] Comment on above: Performed By: #### 5 7021-8 ####RAUDEL MENJIVAR ([id number])[facility] ([facility])[address] [place] [address] 74869 Monocytes/100 WBC (Bld) 7.5 % Normal 2.0-10.0 [facility] Comment on above: Performed By: #### 5 7021-8 ####RAUDEL MENJIVAR ([id number])[facility] ([facility])[address] [place] [address] 41403 Neutrophils (Bld) [#/Vol] 4.26 x10*3/uL Normal 1.20-7.70 [facility] Comment on above: Result Comment: Perc ent differential counts (%) should be interpreted in the context of the absolute cell counts (cells/uL). Performed By: #### 5 7021-8 ####RAUDEL MENJIVAR ([id number])[facility] ([facility])[address] [place] [address] 96545 Neutrophils/100 WBC (Bld) 52.1 % Normal 40.0-80.0 [facility] Comment on above: Performed By: #### 5 7021-8 ####RAUDEL MENJIVAR ([id number])[facility] ([facility])[address] [place] [address] 06610 Nucleated RBC/100 WBC (Bld) [Ratio] 0.0 /100 WBCs Normal 0.0-0.0 [facility] Comment on above: Performed By: #### 5 7021-8 ####RAUDEL MENJIVAR ([id number])[facility] ([facility])[address] [place] [address] 34575 Platelets (Bld) [#/Vol] 363 x10*3/uL Normal 150-450 [facility] Comment on above: Performed By: #### 5 7021-8 ####RAUDEL MENJIVAR ([id number])[facility] ([facility])[address] [place] [address] 73121 RBC (Bld) [#/Vol] 4.12 x10*6/uL Normal 4.00-5.20 [facility] Comment on above: Performed By: #### 5 7021-8 ####RAUDEL MENJIVAR ([id number])[facility] ([facility])[address] [place] [address] WBC (Bld) [#/Vol] 8.2 x10*3/uL Normal 4.4-11.3 [facility] Comment on above: Performed By: #### 5 7021-8 ####RAUDEL MENJIVAR ([id number])[facility] ([facility])[address] [place], [place] [phone] Urinalysis complete W Reflex Culture panel (U)on 06-06-2023 Appearance (U) Hazy Normal Clear [facility] Comment on above: Performed By: #### 5 8077-9 ####RAUDEL MEJNIVAR ([id number])[facility] ([facility])[address] [place], [place] [phone] Bilirubin (U) [Mass/Vol] Negative Normal NEGATIVE [facility] Comment on above: Performed By: #### 5 8077-9 ####RAUDEL MENJIVAR ([id number])[facility] ([facility])[address] [place] [address] 09014 Color (U) Yellow Normal Straw, Yellow [facility] Comment on above: Performed By: #### 5 8077-9 ####RAUDEL MENJIVAR ([id number])[facility] ([facility])[address] [place] [address] 10787 Crystals.amorphous Computer assisted (U) [#/Area] 1+ /HPF Normal NONE, 1+, 2+ [facility] Comment on above: Performed By: #### 5 8077-9 ####RAUDEL MENJIVAR ([id number])[facility] ([facility])[address] [place] [address] 84987 Glucose Auto test strip (U) [Mass/Vol] Negative Normal NEGATIVE [facility] Comment on above: Performed By: #### 5 8077-9 ####RAUDEL MENJIVAR ([id number])[facility] ([facility])[address] [place] [address] 86272 Ketones (U) [Mass/Vol] Negative Normal NEGATIVE [facility] Comment on above: Performed By: #### 5 8077-9 ####RAUDEL MENJIVAR ([id number])[facility] ([facility])[address] [place] [address] 24332 Leukocyte clumps Auto (Urine sed) [#/Area] FEW Normal Reference range not established. [facility] Comment on above: Performed By: #### 5 8077-9 ####RAUDEL MENJIVAR ([id number])[facility] ([facility])[address] [place] [address] 32425 Leukocyte esterase Auto test strip Ql (U) Negative Normal NEGATIVE [facility] Comment on above: Performed By: #### 5 8077-9 ####RAUDEL MENJIVAR ([id number])[facility] ([facility])[address] [place] [address] 72134 Mucus Auto (Urine sed) [#/Area] 1+ /LPF Normal Reference range not established. [facility] Comment on above: Performed By: #### 5 8077-9 ####RAUDEL MENJIVAR ([id number])[facility] ([facility])[address] [place] [address] 66520 Nitrite Auto test strip Ql (U) Negative Normal NEGATIVE [facility] Comment on above: Performed By: #### 5 8077-9 ####RAUDEL MENJIVAR ([id number])[facility] ([facility])[address] [place] [address] 32789 pH (U) 7.0 [pH] Normal 5.0, 5.5, 6.0, 6.5, 7.0, 7.5, 8.0 [facility] Comment on above: Performed By: #### 5 8077-9 ####RAUDEL MENJIVAR ([id number])[facility] ([facility])[address] [place] [address] 78102 Protein (U) [Mass/Vol] 100 (2+) Normal NEGATIVE [facility] Comment on above: Performed By: #### 5 8077-9 ####RAUDEL MENJIVAR ([id number])[facility] ([facility])[address] [place] [address] 47020 RBC (U) [#/Vol] LARGE (3+) Abnormal NEGATIVE [facility] Comment on above: Performed By: #### 5 8077-9 ####RAUDEL MENJIVAR ([id number])[facility] ([facility])[address] [place] [address] 04522 RBC Auto (Urine sed) [#/Area] >20 Abnormal NONE, 1-2, 3-5 [facility] Comment on above: Performed By: #### 5 8077-9 ####RAUDEL MENJIVAR ([id number])[facility] ([facility])[address] [place] [address] 01753 Specific gravity (U) [Rel density] 1.020 Normal 1.005-1.035 [facility] Comment on above: Performed By: #### 5 8077-9 ####RAUDEL MENJIVAR ([id number])[facility] ([facility])[address] [place] [address] 38827 Urobilinogen (U) [Mass/Vol] mg/dL Normal <2.0 [facility] Comment on above: Performed By: #### 5 8077-9 ####RAUDEL MENJIVAR ([id number])[facility] ([facility])[address] [place] [address] 79021 WBC Auto (Urine sed) [#/Area] 21-50 Abnormal 1-5, NONE [facility] Comment on above: Performed By: #### 5 8077-9 ####STARKS TIARA ([id number])[facility] ([facility])[address] [place] [address] Basophil percentageOrdered B y: Jeanette Roach on 03-18-2023 WBC (Bld) [#/Vol] 9.4 10*3/uL 4.4-11.0 [facility] Blood erythrocytes count (nu mber/volume)Ordered By: Jeanette Roach on 03-18-2023 RBC (Bld) [#/Vol] 3.98 10*6/uL 4.2-5.4 [facility] Blood hemoglobin measurement (mass/volume)Ordered By: Jeanette Roach on 03-18-2023 Hemoglobin (Bld) [Mass/Vol] 10.4 g/dL 12.0-15.0 [facility] Blood platelet mean volumeOr dered By: Jeanette Roach on 03-18-2023 Platelet mean volume (Bld) [Entitic vol] 9.1 fL 6.2-12.0 [facility] Determination of erythrocyte mean corpuscular volume (MCV)Ordered By: Jeanette Rocah on 03-18-2023 MCV (RBC) [Entitic vol] 87.7 fL 81-99 [facility] Hematocrit Auto (Bld) [Volum e fraction]Ordered By: Jeanette Roach on 03-18-2023 Hematocrit (Bld) [Volume fraction] 34.9 % 37-47 [facility] Laboratory - Chemistry and C hemistry - challengeOrdered By: Jeanette Roach on 03-18-2023 ALT [Catalytic activity/Vol] 17 U/L 13-56 [facility] Laboratory - Hematology and Cell countsOrdered By: Jeanette Roach on 03-18-2023 Erythrocyte distribution width (RBC) [Entitic vol] 49.8 fL 35.1-43.9 [facility] Erythrocyte distribution width (RBC) [Ratio] 15.8 % 11.6-14.6 [facility] MCH (RBC) [Entitic mass] 26.1 pg 27.0-32.0 [facility] MCHC Auto (RBC) [Mass/Vol]Or dered By: Jeanette Roach on 03-18-2023 MCHC (RBC) [Mass/Vol] 29.8 g/dL 32-36 [facility] No Panel InformationOrdered By: Jeanette Roach on 03-18-2023 Estimated Creatinine Clearance Calc 116.32 ml/min [facility] Estimated GFR (MDRD) Amer 136 mL/min >60 [facility] Comment on above: GFR Calc Estimated GFR (MDRD) Non-Af Amer 112 mL/min >60 [facility] Comment on above: Non- GFR Calc Platelets bldOrdered By: Marc Roach on 03-18-2023 Platelets (Bld) [#/Vol] 400 10*3/uL 150-450 [facility] Serum or plasma creatinine m easurement (mass/volume)Ordered By: Jeanette Roach on 03-18-2023 Creatinine [Mass/Vol] 0.65 mg/dL 0.55-1.02 [facility] Comment on above: The validity of the calculated GFR & GFRAA in patients over 70 years has not been determined. Clinical correlation is essential. Serum or plasma uric acid me asurement (mass/volume)Ordered By: Jeanette Roach on 03-18-2023 Urate [Mass/Vol] 5.1 mg/dL 2.6-6.0 [facility] Comment on above: The drugs N-Acetylcy steine and Metamizole may falsely depress this assay. Thin prep Papanicolaou smear with manual screeningOrdered By: Jeanette Roach on 03-18-2023 Thin prep Papanicolaou smear with manual screening 12 U/L 15-37 [facility] APTTon 03-13-2023 aPTT Coag (PPP) [Time] 27 s [facility] Work Phone: Bacteria identifiedon 2022 Bacteria identified Cx Nom (U) Test: Urine Culture Specimen Source: Clean Catch/Voided Specimen Type: Urine Specimen Date: 03/13/2023 6:19 PM Result Date: 03/14/2023 7:22 PM Result Status: Final result Abnormal: No Resulting Lab: [facility] [id number] [place] [address] CULTURE No significant growth [facility] Comment on above: Performed By: #### 6 30-4 ####LEA Callaway ([id number])[facility] ([facility])[address] [place] [address] Basic metabolic 2000 panelon 03-13-2023 Anion gap [Moles/Vol] 15 mmol/L 10 - 2 0 mmol/L [facility] Calcium [Mass/Vol] 8.8 mg/dL 8.6 - 10. 3 mg/dL [facility] Chloride [Moles/Vol] 103 mmol/L 98 - 10 7 mmol/L [facility] CO2 [Moles/Vol] 25 mmol/L 21 - 32 mmol/L [facility] Creatinine [Mass/Vol] 0.51 mg/dL 0.50 - 1.05 mg/dL [facility] GFR/1.73 sq M.predicted MDRD (S/P/Bld) [Vol rate/Area] - PINF [facility] Comment on above: Calculations of yolanda mated GFR are performed using the 2020 CKD-EPI Study Refit equation without the race variable for the IDMS-Traceable creatinine methods. https://jasn.asnjournals.org/content/early//ASN.08215 29753 Glucose [Mass/Vol] 89 mg/dL 74 - 99 mg/dL [facility] Potassium [Moles/Vol] 3.8 mmol/L 3.5 - 5.3 mmol/L [facility] Sodium [Moles/Vol] 139 mmol/L 136 - 145 mmol/L [facility] Urea nitrogen [Mass/Vol] 10 mg/dL 6 - 23 mg/dL [facility] Anion gap [Moles/Vol] 15 mmol/L Normal 10-20 [facility] Comment on above: Performed By: #### 2 4321-2 ####RAUDEL MENJIVAR ([id number])[facility] ([facility])[address] [place] [address] Calcium [Mass/Vol] 8.8 mg/dL Normal 8.6-10.3 [facility] Comment on above: Performed By: #### 2 4321-2 ####RAUDEL MENJIVAR ([id number])[facility] ([facility])[address] [place] [address] Chloride [Moles/Vol] 103 mmol/L Normal 98-107 [facility] Comment on above: Performed By: #### 2 4321-2 ####RAUDEL MENJIVAR ([id number])[facility] ([facility] [place] [address] CO2 [Moles/Vol] 25 mmol/L Normal 21-32 [facility] Comment on above: Performed By: #### 2 4321-2 ####RAUDEL MENJIVAR ([id number])[facility] ([facility])[address] [place] [address] 23783 Creatinine [Mass/Vol] 0.51 mg/dL Normal 0.50-1.05 [facility] Comment on above: Performed By: #### 2 4321-2 ####RAUDEL MENJIVAR ([id number])[facility] ([facility])[address] [place] [address] 52085 GFR/1.73 sq M.predicted MDRD (S/P/Bld) [Vol rate/Area] mL/min/{1.73_m2} Normal >60 [facility] Comment on above: Result Comment: Calc ulations of estimated GFR are performed using the 2020 CKD-EPI Study Refit equation without the race variable for the IDMS-Traceable creatinine methods. https://jasn.asnjournals.org/content//ASN.19679 90845 Performed By: #### 2 4321-2 ####RAUDEL MENJIVAR ([id number])[facility] ([facility])[address] [place] [address] 80954 Glucose [Mass/Vol] 89 mg/dL Normal 74-99 [facility] Comment on above: Performed By: #### 2 4321-2 ####RAUDEL MENJIVAR ([id number])[facility] ([facility] [place] [address] 54051 Potassium [Moles/Vol] 3.8 mmol/L Normal 3.5-5.3 [facility] Comment on above: Performed By: #### 2 4321-2 ####RAUDEL MENJIVAR ([id number])[facility] ([facility] [place] [address] 15503 Sodium [Moles/Vol] 139 mmol/L Normal 136-145 [facility] Comment on above: Performed By: #### 2 4321-2 ####RAUDEL MENJIVAR ([id number])[facility] ([facility] [place] [address] [id number] Urea nitrogen [Mass/Vol] 10 mg/dL Normal 6-23 [facility] Comment on above: Performed By: #### 2 4321-2 ####RAUDEL MENJIVAR ([id number])[facility] [facility] ([facility])[address] [place] [address]293 C reactive proteinon 023 CRP [Mass/Vol] 6.62 mg/dL High <1.00 [facility] Comment on above: Performed By: #### 1 988-5 #### RAUDEL MENJIVAR ([id number]) [facility] ([facility]) [facility] [place] [address] C-Reactive Proteinon 023 CRP [Mass/Vol] 6.62 mg/dL High NINF - 1.00 mg/dL [facility] CBC W Auto Differential pane l (Bld)on 03-13-2023 Basophils (Bld) [#/Vol] 0.04 10*3/uL [facility] Basophils/100 WBC (Bld) 0.3 % 0.0 - 2.0 % [facility] Eosinophils (Bld) [#/Vol] 0.33 10*3/uL [facility] Eosinophils/100 WBC (Bld) 2.8 % 0.0 - 6.0 % [facility] Erythrocyte distribution width (RBC) [Ratio] 15.5 % High 11.5 - 14.5 % [facility] Hematocrit (Bld) [Volume fraction] 32.1 % Low 36.0 - 46.0 % [facility] Hemoglobin (Bld) [Mass/Vol] 9.7 g/dL Low 12.0 - 16.0 g/dL [facility] Immature granulocytes (Bld) [#/Vol] 0.12 10*3/uL [facility] Immature granulocytes/100 WBC (Bld) 1.0 % High 0.0 - 0.9 % [facility] Comment on above: Immature Granulocyte Count (IG) includes promyelocytes, myelocytes and metamyelocytes but does not include bands. Percent differential counts (%) should be interpreted in the context of the absolute cell counts (cells/UL). Interpretation and review of laboratory results Abnormal [facility] Lymphocytes (Bld) [#/Vol] 1.38 10*3/uL [facility] Lymphocytes/100 WBC (Bld) 11.8 % 13.0 - 44.0 % [facility] MCH (RBC) [Entitic mass] 26.5 pg 26.0 - 34.0 pg [facility] MCHC (RBC) [Mass/Vol] 30.2 g/dL Low 32.0 - 36.0 g/dL [facility] MCV (RBC) [Entitic vol] 88 fL 80 - 100 fL [facility] Monocytes (Bld) [#/Vol] 0.80 10*3/uL [facility] Monocytes/100 WBC (Bld) 6.9 % 2.0 - 10.0 % [facility] Neutrophils (Bld) [#/Vol] 8.99 10*3/uL High [facility] Comment on above: Percent differential counts (%) should be interpreted in the context of the absolute cell counts (cells/uL). Neutrophils/100 WBC (Bld) 77.2 % 40.0 - 80.0 % [facility] Nucleated RBC/100 WBC (Bld) [Ratio] 0.0 % [facility] Platelet mean volume (Bld) [Entitic vol] 9.6 fL 7.5 - 11.5 fL [facility] Platelets (Bld) [#/Vol] 287 10*3/uL [facility] RBC (Bld) [#/Vol] 3.66 10*6/uL Low [facility] WBC (Bld) [#/Vol] 11.7 10*3/uL High [facility] Basophils (Bld) [#/Vol] 0.04 x10*3/uL Normal 0.00-0.10 [facility] Comment on above: Performed By: #### 5 7021-8 #### RAUDEL MENJIVAR ([id number]) [facility] ([facility]) [address] [place] [address] 66447 Basophils/100 WBC (Bld) 0.3 % Normal 0.0-2.0 [facility] Comment on above: Performed By: #### 5 7021-8 #### RAUDEL MENJIVAR ([id number]) [facility] ([facility]) [address] [place] [address] 63095 Eosinophils (Bld) [#/Vol] 0.33 x10*3/uL Normal 0.00-0.70 [facility] Comment on above: Performed By: #### 5 7021-8 #### RAUDEL MENJIVAR ([id number]) [facility] ([facility]) [address] [place] [address] 26038 Eosinophils/100 WBC (Bld) 2.8 % Normal 0.0-6.0 [facility] Comment on above: Performed By: #### 5 7021-8 #### RAUDEL MENJIVAR ([id number]) [facility] ([facility]) [address] [place] [address] 42987 Erythrocyte distribution width (RBC) [Ratio] 15.5 % High 11.5-14.5 [facility] Comment on above: Performed By: #### 5 7021-8 #### RAUDEL MENJIVAR ([id number]) [facility] ([facility]) [address] [place] [address] 10115 Hematocrit (Bld) [Volume fraction] 32.1 % Low 36.0-46.0 [facility] Comment on above: Performed By: #### 5 7021-8 #### RAUDEL MENJIVAR ([id number]) [facility] ([facility]) [address] [place] [address] 40002 Hemoglobin (Bld) [Mass/Vol] 9.7 g/dL Low 12.0-16.0 [facility] Comment on above: Performed By: #### 5 7021-8 #### RAUDEL MENJIVAR ([id number]) [facility] ([facility]) [address] [place] [address] 89145 Immature granulocytes (Bld) [#/Vol] 0.12 x10*3/uL Normal 0.00-0.70 [facility] Comment on above: Performed By: #### 5 7021-8 #### RAUDEL MENJIVAR ([id number]) [facility] ([facility]) [address] [place] [address] 58283 Immature granulocytes/100 WBC (Bld) 1.0 % High 0.0-0.9 [facility] Comment on above: Result Comment: Yuliya ture Granulocyte Count (IG) includes promyelocytes, myelocytes and metamyelocytes but does not include bands. Percent differential counts (%) should be interpreted in the context of the absolute cell counts (cells/UL). Performed By: #### 5 7021-8 #### RAUDEL MENJIVAR ([id number]) [facility] ([facility]) [address] [place] [address] 49518 Lymphocytes (Bld) [#/Vol] 1.38 x10*3/uL Normal 1.20-4.80 [facility] Comment on above: Performed By: #### 5 7021-8 #### RAUDEL MENJIVAR ([id number]) [facility] ([facility]) [address] [place] [address] 85880 Lymphocytes/100 WBC (Bld) 11.8 % Normal 13.0-44.0 [facility] Comment on above: Performed By: #### 5 7021-8 #### RAUDEL MENJIVAR ([id number]) [facility] ([facility]) [address] [place] [address] 19614 MCH (RBC) [Entitic mass] 26.5 pg Normal 26.0-34.0 [facility] Comment on above: Performed By: #### 5 7021-8 #### RAUDEL MENJIVAR ([id number]) [facility] ([facility]) [address] [place] [address] 89927 MCHC (RBC) [Mass/Vol] 30.2 g/dL Low 32.0-36.0 [facility] Comment on above: Performed By: #### 5 7021-8 #### RAUDEL MENJIVAR ([id number]) [facility] ([facility]) [address] [place] [address] 40584 MCV (RBC) [Entitic vol] 88 fL Normal 80-100 [facility] Comment on above: Performed By: #### 5 7021-8 #### RAUDEL MENJIVAR ([id number]) [facility] ([facility]) [address] [place] [address] 37161 Monocytes (Bld) [#/Vol] 0.80 x10*3/uL Normal 0.10-1.00 [facility] Comment on above: Performed By: #### 5 7021-8 #### RAUDEL MENJIVAR ([id number]) [facility] ([facility]) [address] [place] [address] 03082 Monocytes/100 WBC (Bld) 6.9 % Normal 2.0-10.0 [facility] Comment on above: Performed By: #### 5 7021-8 #### RAUDEL MENJIVAR ([id number]) [facility] ([facility]) [address] [place] [address] 04473 Neutrophils (Bld) [#/Vol] 8.99 x10*3/uL High 1.20-7.70 [facility] Comment on above: Result Comment: Perc ent differential counts (%) should be interpreted in the context of the absolute cell counts (cells/uL). Performed By: #### 5 7021-8 #### RAUDEL MENJIVAR ([id number]) [facility] ([facility]) [address] [place] [address] 02341 Neutrophils/100 WBC (Bld) 77.2 % Normal 40.0-80.0 [facility] Comment on above: Performed By: #### 5 7021-8 #### RAUDEL MENJIVAR ([id number]) [facility] ([facility]) [address] [place] [address] 50773 Nucleated RBC/100 WBC (Bld) [Ratio] 0.0 /100 WBCs Normal 0.0-0.0 [facility] Comment on above: Performed By: #### 5 7021-8 #### RAUDEL MENJIVAR ([id number]) [facility] ([facility]) [address] [place] [address] 46407 Platelet mean volume (Bld) [Entitic vol] 9.6 fL Normal 7.5-11.5 [facility] Comment on above: Performed By: #### 5 7021-8 #### RAUDEL MENJIVAR ([id number]) [facility] ([facility]) [address] [place] [address] 33933 Platelets (Bld) [#/Vol] 287 x10*3/uL Normal 150-450 [facility] Comment on above: Performed By: #### 5 7021-8 #### RAUDEL MENJIVAR ([id number]) [facility] ([facility]) [address] [place] [address] 80197 RBC (Bld) [#/Vol] 3.66 x10*6/uL Low 4.00-5.20 [facility] Comment on above: Performed By: #### 5 7021-8 #### RAUDEL MENJIVAR ([id number]) [facility] ([facility]) [address] [place] [address] 25282 WBC (Bld) [#/Vol] 11.7 x10*3/uL High 4.4-11.3 [facility] Comment on above: Performed By: #### 5 7021-8 #### RAUDEL MENJIVAR ([id number]) [facility] ([facility]) [address] [place] [address] 94261 CRP [Mass/Vol]on 03-13-2023 Interpretation and review of laboratory results Abnormal [facility] Coagulation surface inducedo n 03-13-2023 aPTT Coag (PPP) [Time] 27 s Normal 27-38 Un [facility] Comment on above: Order Comment: The A PTT is no longer used for monitoring Unfractionated Heparin Therapy. For monitoring Heparin Therapy, use the Heparin Assay. Performed By: #### 1 4979-9 #### RAUDEL MENJIVAR ([id number]) [facility] ([facility]) [address] [place] [address] Coagulation tissue factor in ducedon 03-13-2023 PT Coag (PPP) [Time] 10.9 s Normal 9.8-12.8 [facility] Comment on above: Performed By: #### 5 902-2 #### RAUDEL MENJIVAR ([id number]) [facility] ([facility]) [address] [place], [place] [id number] Hepatic function 2000 panelo n 03-13-2023 Albumin BCP dye [Mass/Vol] 3.2 g/dL Low 3.4 - 5.0 g/dL [facility] ALP [Catalytic activity/Vol] 142 U/L High 33 - 110 U/L [facility] ALT With P-5'-P [Catalytic activity/Vol] 9 U/L 7 - 45 U/L [facility] Comment on above: Patients treated wit h Sulfasalazine may generate falsely decreased results for ALT. AST With P-5'-P [Catalytic activity/Vol] 14 U/L 9 - 39 U/L [facility] Bilirubin [Mass/Vol] 0.7 mg/dL 0.0 - 1 .2 mg/dL [facility] Bilirubin.direct [Mass/Vol] 0.1 mg/dL 0.0 - 0.3 mg/dL [facility] Interpretation and review of laboratory results Abnormal [facility] Protein [Mass/Vol] 6.3 g/dL Low 6.4 - 8.2 g/dL [facility] Albumin BCP dye [Mass/Vol] 3.2 g/dL Low 3.4-5.0 [facility] Comment on above: Performed By: #### 2 4325-3 ####RAUDEL MENJIVAR ([id number])[facility] ([facility])[address] [place] [address] ALP [Catalytic activity/Vol] 142 U/L High 33-110 [facility] Comment on above: Performed By: #### 2 4325-3 ####RAUDEL MENJIVAR ([id number])[facility] ([facility])[address] [place] [address] 88060 ALT With P-5'-P [Catalytic activity/Vol] 9 U/L Normal 7-45 [facility] Comment on above: Result Comment: Monika ents treated with Sulfasalazine may generate falsely decreased results for ALT. Performed By: #### 2 4325-3 ####RAUDEL MENJIVAR ([id number])[facility] ([facility])[address] [place] [address] 07879 AST With P-5'-P [Catalytic activity/Vol] 14 U/L Normal 9-39 [facility] Comment on above: Performed By: #### 2 5-3 ####RAUDEL MENJIVAR ([id number])[facility] ([facility])[address] [place] [address] 99382 Bilirubin [Mass/Vol] 0.7 mg/dL Normal 0.0-1.2 [facility] Comment on above: Performed By: #### 2 5-3 ####RAUDEL MENJIVAR ([id number])[facility] ([facility])[address] [place] [address] 51928 Bilirubin.direct [Mass/Vol] 0.1 mg/dL Normal 0.0-0.3 [facility] Comment on above: Performed By: #### 2 5-3 ####RAUDEL MENJIVAR ([id number])[facility] ([facility])[address] [place] [address] 06210 Protein [Mass/Vol] 6.3 g/dL Low 6.4-8.2 [facility] Comment on above: Performed By: #### 2 4325-3 ####RAUDEL MENJIVAR ([id number])[facility] ([facility])[address] [place] [address] 35358 Lactateon 03-13-2023 Lactate [Moles/Vol] 0.9 mmol/L 0.4 - 2. 0 mmol/L [facility] Lactate [Moles/Vol] 0.9 mmol/L Normal 0.4-2.0 [facility] Comment on above: Order Comment: Venip uncture immediately after or during the administration of Metamizole may lead to falsely low results. Testing should be performed immediately prior to Metamizole dosing. Performed By: #### 2 524-7 #### RAUDEL MENJIVAR ([id number]) [facility] ([facility]) [address] [place] [address] 52552 Lactate [Moles/Vol]on 2022 Interpretation and review of laboratory results Normal [facility] Venipuncture immediately after or during the administration of Metamizole may lead to falsely low results. Testing should be performed immediately prior to Metamizole dosing. [facility] Magnesiumon 03-13-2023 Magnesium [Mass/Vol] 1.91 mg/dL 1.60 - 2.40 mg/dL [facility] Magnesium [Mass/Vol] 1.91 mg/dL Normal 1.60-2.40 [facility] Comment on above: Performed By: #### 1 9123-9 #### RAUDEL MENJIVAR ([id number]) [facility] ([facility]) [address] [place] [address] 13671 Natriuretic peptide B [Mass/ Vol]on 03-13-2023 Interpretation and review of laboratory results Abnormal [facility] Natriuretic peptide B (Bld) [Mass/Vol] 285 pg/mL High 0 - 99 pg/mL [facility] <100 pg/mL - Heart failure unlikely 100-299 pg/mL - Intermediate probability of acute heart failure exacerbation. Correlate with clinical context and patient history. >=300 pg/mL - Heart Failure likely. Correlate with clinical context and patient history. BNP testing is performed using different testing methodology at [facility] than at other [facility]. Direct result comparisons should only be made within the same method. [facility] Natriuretic peptide B (Bld) [Mass/Vol] 285 pg/mL High 0-99 [facility] Comment on above: Order Comment: <100 pg/mL - Heart failure unlikely 100-299 pg/mL - Intermediate probability of acute heart failure exacerbation. Correlate with clinical context and patient history. >=300 pg/mL - Heart Failure likely. Correlate with clinical context and patient history. BNP testing is performed using different testing methodology at [facility] than at other [facility]. Direct result comparisons should only be made within the same method. Performed By: #### 3 0934-4 #### RAUDEL MENJIVAR ([id number]) [facility] ([facility]) [address] [place], [place] [phone] No Panel Informationon 03-13 Interpretation and review of laboratory results Abnormal [facility] Interpretation and review of laboratory results Normal [facility] PT Coag (PPP) [Time]Ordered By: Carey Epstein on 03-13-2023 INR Coag (PPP) [Relative time] 1.0 {INR} 0.9 - 1.1 [facility] Interpretation and review of laboratory results Normal [facility] PT Coag (PPP) [Time]on 03-13 INR Coag (PPP) [Relative time] 1.0 Normal 0.9-1.1 [facility] Comment on above: Performed By: #### 5 902-2 #### RAUDEL MENJIVAR ([id number]) [facility] ([facility]) [address] [place] [address] Phosphateon 03-13-2023 Phosphate [Mass/Vol] 4.1 mg/dL Normal 2.5-4.9 [facility] Comment on above: Result Comment: The performance characteristics of phosphorus testing in heparinized plasma have been validated by the individual laboratory site where testing is performed. Testing on heparinized plasma is not approved by the FDA; however, such approval is not necessary. Performed By: #### 2 777-1 #### RAUDEL MENJIVAR ([id number]) [facility] ([facility]) [address] [place], [place] [phone] Phosphoruson 03-13-2023 Phosphate [Mass/Vol] 4.1 mg/dL 2.5 - 4 .9 mg/dL [facility] Comment on above: The performance miles acteristics of phosphorus testing in heparinized plasma have been validated by the individual laboratory site where testing is performed. Testing on heparinized plasma is not approved by the FDA; however, such approval is not necessary. Protime-INROrdered By: Marilynn Epstein on 03-13-2023 PT Coag (PPP) [Time] 10.9 s [facility] Tropinin I.cardiac panel Hig h sensitivity methodon 03-13-2023 Interpretation and review of laboratory results Normal [facility] Less than 99th percentile of normal range [...] performed using a different testing methodology at [facility] than at other [facility]. Direct result comparisons should only be made within the same method. [facility] Troponin I, High Sensitivity on 03-13-2023 Tropinin I.cardiac panel High sensitivity method 6 ng/L 0 - 13 ng/L [facility] Troponin I.cardiac panelon 1 Tropinin I.cardiac panel High sensitivity method 6 ng/L Normal 0-13 [facility] Comment on above: Order Comment: Less [...] performed using a different testing methodology at [facility] than at other [facility]. Direct result comparisons should only be made within the same method. Performed By: #### 8 9577-1 #### RAUDEL MENJIVAR ([id number]) [facility] ([facility]) [address] [place] [address] Urinalysis complete W Reflex Culture panel (U)on 03-13-2023 Appearance (U) Clear Clear [facility] Bilirubin (U) [Mass/Vol] Negative NEGATIVE [facility] Color (U) Straw Straw, Yellow [facility] Glucose Auto test strip (U) [Mass/Vol] Negative NEGATIVE mg/dL [facility] Ketones (U) [Mass/Vol] Negative NEGAT JESUS mg/dL [facility] Leukocyte esterase Auto test strip Ql (U) TRACE Abnormal NEGATIVE [facility] Nitrite Auto test strip Ql (U) Negative NEGATIVE [facility] pH (U) 8.0 [pH] 5.0, 5.5, 6.0, 6.5, 7.0, 7.5, 8.0 [facility] Protein (U) [Mass/Vol] Negative NEGAT JESUS mg/dL [facility] RBC (U) [#/Vol] MODERATE (2+) Abnormal NEGATIVE [facility] Specific gravity (U) [Rel density] 1.010 1.005 - 1.035 [facility] Urobilinogen (U) [Mass/Vol] mg/dL NINF - 2.0 mg/dL [facility] Appearance (U) Clear Normal Clear [facility] Comment on above: Performed By: #### 5 8077-9 ####RAUDEL MENJIVAR ([id number])[facility] ([facility])[address] [place] [address] Bilirubin (U) [Mass/Vol] Negative Normal NEGATIVE [facility] Comment on above: Performed By: #### 5 8077-9 ####RAUDEL MENJIVAR ([id number])[facility] ([facility])[address] [place] [address] Color (U) Straw Normal Straw, Yellow [facility] Comment on above: Performed By: #### 5 8077-9 ####RAUDEL MENJIVAR ([id number])[facility] ([facility])[address] [place] [address] Glucose Auto test strip (U) [Mass/Vol] Negative Normal NEGATIVE [facility] Comment on above: Performed By: #### 5 8077-9 ####RAUDEL MENJIVAR ([id number])[facility] ([facility])[address] [place] [address] 70983 Ketones (U) [Mass/Vol] Negative Normal NEGATIVE [facility] Comment on above: Performed By: #### 5 8077-9 ####RAUDEL MENJIVAR ([id number])[facility] ([facility])[address] [place] [address] 27079 Leukocyte esterase Auto test strip Ql (U) TRACE Abnormal NEGATIVE [facility] Comment on above: Performed By: #### 5 8077-9 ####RAUDEL MENJIVAR ([id number])[facility] ([facility])[address] [place] [address] 45951 Nitrite Auto test strip Ql (U) Negative Normal NEGATIVE [facility] Comment on above: Performed By: #### 5 8077-9 ####RAUDEL MENJIVAR ([id number])[facility] ([facility])[address] [place] [address] 46042 pH (U) 8.0 [pH] Normal 5.0, 5.5, 6.0, 6.5, 7.0, 7.5, 8.0 [facility] Comment on above: Performed By: #### 5 8077-9 ####RAUDEL MENJIVAR ([id number])[facility] ([facility])[address] [place] [id number] Protein (U) [Mass/Vol] Negative Normal NEGATIVE [facility] Comment on above: Performed By: #### 5 8077-9 ####RAUDEL MENJIVAR ([id number])[facility] ([facility])[address] [place] [id number] RBC (U) [#/Vol] MODERATE (2+) Abnormal NEGATIVE [facility] Comment on above: Performed By: #### 5 8077-9 ####RAUDEL MENJIVAR ([id number])[facility] ([facility])[address] [place] [address] Specific gravity (U) [Rel density] 1.010 Normal 1.005-1.035 [facility] Comment on above: Performed By: #### 5 8077-9 ####RAUDEL MENJIVAR ([id number])[facility] ([facility])[address] [place] [address] Urobilinogen (U) [Mass/Vol] mg/dL Normal <2.0 [facility] Comment on above: Performed By: #### 5 8077-9 ####RAUDEL MENJIVAR ([id number])[facility] ([facility])[address] [place], [place] [id number] Urinalysis microscopic panel Auto Ql (U)on 03-13-2023 RBC Auto (Urine sed) [#/Area] 11-20 Abnormal NONE, 1-2, 3-5 /HPF [facility] WBC Auto (Urine sed) [#/Area] 1-5 1-5, NONE /HPF [facility] RBC Auto (Urine sed) [#/Area] 11-20 Abnormal NONE, 1-2, 3-5 [facility] Comment on above: Performed By: #### 5 3315-8 ####RAUDEL MENJIVAR ([id number])[facility] ([facility])[address] [place] [address] WBC Auto (Urine sed) [#/Area] 1-5 Normal 1-5, NONE [facility] Comment on above: Performed By: #### 5 3315-8 ####RAUDEL MENJIVAR ([id number])[facility] ([facility])[address] [place] [phone] XR CHEST 1 VIEWon 03-13-2023 XR CHEST 1 VIEW Interpreted By: Jasen Aguirre, STUDY: XR CHEST 1 VIEW; 03/13/2023 5:17 pm INDICATION: Signs/Symptoms:pre-ecla mpsia. COMPARISON: May 25, [address] and December 14, 2020 chest radiograph ACCESSION NUMBER(S): [id number] ORDERING CLINICIAN: EDY ORELLANA FINDINGS: AP radiograph of the chest was provided. CARDIOMEDIASTINAL SILHOUETTE: Cardiomediastinal silhouette is normal in size and configuration. LUNGS: Lungs are clear. ABDOMEN: No remarkable upper abdominal findings. BONES: No acute osseous changes. IMPRESSION: 1. No evidence of acute cardiopulmonary process. MACRO: None Signed by: Jasen Aguirre 03/13/2023 5:28 PM Dictation workstation: [id number] [facility] XR Chest Single viewon 03-13 1. No evidence of ac nikolski cardiopulmonary process. MACRO: None Signed by: Jasen Aguirre 03/13/2023 5:28 PM Dictation workstation: [id number] Interpreted By: Jasen Aguirre, STUDY: XR CHEST 1 VIEW; 03/13/2023 5:17 pm INDICATION: Signs/Symptoms:pre-ecla mpsia. COMPARISON: May 25, [address] and December 14, 2020 chest radiograph ACCESSION NUMBER(S): [id number] ORDERING CLINICIAN: EDY ORELLANA FINDINGS: AP radiograph [...] December 14, 2020 chest radiograph ACCESSION NUMBER(S): [id number] ORDERING CLINICIAN: EDY ORELLANA FINDINGS: AP radiograph of the chest was provided. CARDIOMEDIASTINAL SILHOUETTE: Cardiomediastinal silhouette is normal in size and configuration. LUNGS: Lungs are clear. ABDOMEN: No remarkable upper abdominal findings. BONES: No acute osseous changes. IMPRESSION: 1. No evidence of acute cardiopulmonary process. MACRO: None Signed by: Jasen Aguirre 03/13/2023 5:28 PM Dictation workstation: [id number] [facility] Work Phone: Radiology Study observation (narrative) [facility] Work Phone: XR Chest Single viewOrdered By: Jasen Aguirre on 03-13-2023 [facility] Work Phone: aPTT Coag (PPP) [Time]on Interpretation and review of laboratory results Normal [facility] Work Phone: The APTT is no longe r used for monitoring Unfractionated Heparin Therapy. For monitoring Heparin Therapy, use the Heparin Assay. [facility] Work Phone: [facility] Work Phone: Absolute lymphocyte countOrd ered By: Yuri Crenshaw on 03-09-2023 Lymphocytes Auto (Unsp spec) [#/Vol] 2.13 10*3/uL 0.83-4.51 [facility] Basophil percentageOrdered B y: Yuri Crenshaw on 03-09-2023 Basophils/100 WBC (Bld) 0.3 % 0-1 [facility] Eosinophils/100 WBC (Bld) 2.0 % 0-5 [facility] Neutrophils (Bld) [#/Vol] 10.3 10*3/uL 2.0-7.7 [facility] Neutrophils/100 WBC (Bld) 73.2 % 47-70 [facility] WBC (Bld) [#/Vol] 14.1 10*3/uL 4.4-11.0 [facility] Blood erythrocytes count (nu mber/volume)Ordered By: Yuri Crenshaw on 03-09-2023 RBC (Bld) [#/Vol] 3.54 10*6/uL 4.2-5.4 [facility] Blood hemoglobin measurement (mass/volume)Ordered By: Yuri Crenshaw on 03-09-2023 Hemoglobin (Bld) [Mass/Vol] 9.4 g/dL 12.0-15.0 [facility] Blood lymphocytes/100 leukoc ytesOrdered By: Yuri Crenshaw on 03-09-2023 Lymphocytes/100 WBC (Bld) 15.1 % 19-41 [facility] Blood monocytes/100 leukocyt esOrdered By: Yuri Crenshaw on 03-09-2023 Monocytes/100 WBC (Bld) 8.1 % 0-10 [facility] Blood platelet mean volumeOr dered By: Yuri Crenshaw on 03-09-2023 Platelet mean volume (Bld) [Entitic vol] 10.9 fL 6.2-12.0 [facility] Determination of erythrocyte mean corpuscular volume (MCV)Ordered By: Yuri Crenshaw on 03-09-2023 MCV (RBC) [Entitic vol] 84.7 fL 81-99 [facility] Hematocrit Auto (Bld) [Volum e fraction]Ordered By: Yuri Crenshaw on 03-09-2023 Hematocrit (Bld) [Volume fraction] 30.0 % 37-47 [facility] Laboratory - Chemistry and C hemistry - challengeon 03-09-2023 Glucose Ql (U) Negative [facility] Laboratory - Hematology and Cell countsOrdered By: Yuri Crenshaw on 03-09-2023 Erythrocyte distribution width (RBC) [Entitic vol] 47.6 fL 35.1-43.9 [facility] Erythrocyte distribution width (RBC) [Ratio] 15.6 % 11.6-14.6 [facility] Immature granulocytes/100 WBC (Bld) 1.300 % 0.0-0.9 [facility] Comment on above: IG% - Immature Granu locytes (promyelocytes, myelocytes and metamyelocytes) > 1% indicates that a LEFT SHIFT is Present. MCH (RBC) [Entitic mass] 26.6 pg 27.0-32.0 [facility] Nucleated RBC/100 WBC (Bld) [Ratio] 0.1 % 0-5 [facility] Laboratory - Urinalysison Protein Ql (U) Negative [facility] MCHC Auto (RBC) [Mass/Vol]Or dered By: Yuri Crenshaw on 03-09-2023 MCHC (RBC) [Mass/Vol] 31.3 g/dL 32-36 [facility] Platelets bldOrdered By: Alexis Crenshaw on 03-09-2023 Platelets (Bld) [#/Vol] 281 10*3/uL 150-450 [facility] Serum Treponema species anti body detectionOrdered By: Yuri Crenshaw on 03-09-2023 Treponema sp Ab Ql (S) Non-Reactive [facility] Basophil percentageOrdered B y: Jeanette Roach on 03-08-2023 Basophil percentage 5-10 SEEN /hpf 0-5 [facility] Bilirubin Test strip Ql (U)O rdered By: Jeanette Roach on 03-08-2023 Bilirubin Ql (U) Negative Negative [facility] Ketones Test strip Ql (U)Ord ered By: Jeanette Roach on 03-08-2023 Ketones Ql (U) 50 mg/dl Negative [facility] Mucus LM Ql (Urine sed)Order ed By: Jeanette Roach on 03-08-2023 Mucus Ql (Urine sed) 0 SEEN /hpf [facility] Nitrite Test strip Ql (U)Ord ered By: Jeanette Roach on 03-08-2023 Nitrite Ql (U) Negative Negative [facility] Protein Test strip Ql (U)Ord ered By: Jeanette Roach on 03-08-2023 Protein Ql (U) 30 mg/dl Negative [facility] Squamous epithelial cells de tection in urine sediment by light microscopyOrdered By: Jeanette Roach on 03-08-2023 Epithelial cells.squamous LM Ql (Urine sed) 5-10 SEEN /hpf 5-10 [facility] Urine blood detectionOrdered By: Jeanette Roach on 03-08-2023 RBC Ql (U) 10 /ul Negative [facility] RBC Ql (U) 0-5 SEEN /hpf 0-5 [facility] Urine clarityOrdered By: Marc Roach on 03-08-2023 Clarity (U) Clear Clear [facility] Urine color determinationOrd ered By: Jeanette Roach on 03-08-2023 Color (U) Yellow Yellow [facility] Urine glucose detectionOrder ed By: Jeanette Roach on 03-08-2023 Glucose Ql (U) Normal mg/dl Normal [facility] Urine leukocyte esterase det ection by dipstickOrdered By: Jeanette Roach on 03-08-2023 Leukocyte esterase Test strip Ql (U) 100 /ul Negative [facility] Urine pHOrdered By: Jeanette silva on 03-08-2023 pH (U) 6.5 [pH] 5.0 - 8.0 [facility] Urine sediment bacteria coun t by microscopy (number/high power field)Ordered By: Jeanette Roach on 03-08-2023 Bacteria LM.HPF (Urine sed) [#/Area] 2 /[HPF] None Seen [facility] Urine specific gravity measu rementOrdered By: Jeanette Roach on 03-08-2023 Specific gravity (U) [Rel density] 1.015 1.002-1.030 [facility] Urobilinogen Auto test strip Ql (U)Ordered By: Jeanette Roach on 03-08-2023 Urobilinogen Ql (U) 4 mg/dl Normal [facility] Laboratory - Chemistry and C hemistry - challengeon 02-28-2023 Glucose Ql (U) Negative [facility] Laboratory - Urinalysison Protein Ql (U) Negative [facility] No Panel InformationOrdered By: Yuri Crenshaw on 02-28-2023 Group B Streptococcus Culture Group B Beta Streptococcus is not isolated. [facility] Basophil percentageOrdered B y: Yuri Crenshaw on 02-18-2023 Bilirubin [Mass/Vol] 1.00 mg/dL 0.20-1.00 [facility] Comment on above: For patients on eltr ombopag therapy, use of Dimension [place] TBIL is not recommended. Chloride [Moles/Vol] 108 mmol/L 98-107 [facility] Glucose [Mass/Vol] 85 mg/dL 74-106 [facility] Potassium [Moles/Vol] 3.7 mmol/L 3.5-5.1 [facility] Protein [Mass/Vol] 6.1 g/dL 6.4-8.2 [facility] Sodium [Moles/Vol] 137 mmol/L 136-145 [facility] WBC (Bld) [#/Vol] 10.9 10*3/uL 4.4-11.0 [facility] Blood erythrocytes count (nu mber/volume)Ordered By: Yuri Crenshaw on 02-18-2023 RBC (Bld) [#/Vol] 3.36 10*6/uL 4.2-5.4 [facility] Blood hemoglobin measurement (mass/volume)Ordered By: Yuri Crenshaw on 02-18-2023 Hemoglobin (Bld) [Mass/Vol] 9.5 g/dL 12.0-15.0 [facility] Blood platelet mean volumeOr dered By: Yuri Crenshaw on 02-18-2023 Platelet mean volume (Bld) [Entitic vol] 10.5 fL 6.2-12.0 [facility] Determination of erythrocyte mean corpuscular volume (MCV)Ordered By: Yuri Crenshaw on 02-18-2023 MCV (RBC) [Entitic vol] 87.8 fL 81-99 [facility] Gram stain for investigation of transfusion reactionOrdered By: Yuri Crenshaw on 02-18-2023 Microscopic observation Gram stain Nom (Unsp spec) [facility] Hematocrit Auto (Bld) [Volum e fraction]Ordered By: Yuri Crenshaw on 02-18-2023 Hematocrit (Bld) [Volume fraction] 29.5 % 37-47 [facility] Laboratory - Chemistry and C hemistry - challengeOrdered By: Yuri Crenshaw on 02-18-2023 ALP [Catalytic activity/Vol] 144 U/L 45-117 [facility] ALT [Catalytic activity/Vol] 11 U/L 13-56 [facility] CO2 [Moles/Vol] 20.0 mmol/L 21.0-32.0 [facility] Globulin (S) [Mass/Vol] 3.7 g/dL 2.2-4.2 [facility] Urea nitrogen/Creatinine [Mass ratio] 9.5 mg/mg 10-20 [facility] Laboratory - Hematology and Cell countsOrdered By: Yuri Crenshaw on 02-18-2023 Erythrocyte distribution width (RBC) [Entitic vol] 46.6 fL 35.1-43.9 [facility] Erythrocyte distribution width (RBC) [Ratio] 14.6 % 11.6-14.6 [facility] MCH (RBC) [Entitic mass] 28.3 pg 27.0-32.0 [facility] MCHC Auto (RBC) [Mass/Vol]Or dered By: Yuri Crenshaw on 02-18-2023 MCHC (RBC) [Mass/Vol] 32.2 g/dL 32-36 [facility] No Panel InformationOrdered By: Yuri Crenshaw on 02-18-2023 Estimated GFR (MDRD) Amer 172 mL/min >60 [facility] Comment on above: GFR Calc Estimated GFR (MDRD) Non-Af Amer 142 mL/min >60 [facility] Comment on above: Non- GFR Calc Fibrinogen 527 mg/dl 203-444 [facility] Miscellaneous Test See comment [facility] Comment on above: TEST RESULT LIMITSBi le Acids, Fractionated LCMS Ursodeoxycholic Acids <0.10 umol/L Reference Range: All Ages: <1.9 Cholic Acids 0.90 umol/L Reference Range: All Ages: <2.2 Chenodeoxycholic Acids 1.5 umol/L Reference Range: All Ages: <5.8 Deoxycholic Acids 0.60 umol/L Reference Range: All Ages: <3.3 Total Bile Acids 3.0 umol/L This test was developed and its performance characteristics determined by [facility]. It has not been cleared or approved by the Food and Drug Administration. Reference Range: All Ages: <9.2 TESTING PERFORMED AT [employer] [facility]. ORIGINAL REPORT ON FILE IN LAB CONTAINS ADDITIONAL TEST SITE INFORMATION. Vaginal Amniotic Fluid Detection Negative Negative [facility] Comment on above: Amniotic fluid not p resent indicates No Rupture of FetalMembranes at time of specimen collection. Platelets bldOrdered By: Alexis Crenshaw on 02-18-2023 Platelets (Bld) [#/Vol] 278 10*3/uL 150-450 [facility] Serum or plasma albumin edilia urement (mass/volume)Ordered By: Yuri Crenshaw on 02-18-2023 Albumin [Mass/Vol] 2.4 g/dL 3.2-5.0 [facility] Serum or plasma albumin/glob ulin mass ratioOrdered By: Yuri Crenshaw on 02-18-2023 Albumin/Globulin [Mass ratio] 0.6 {ratio} 0.9-2.4 [facility] Serum or plasma calcium edilia urement (mass/volume)Ordered By: Yuri Crenshaw on 02-18-2023 Calcium [Mass/Vol] 8.5 mg/dL 8.5-10.1 [facility] Serum or plasma creatinine m easurement (mass/volume)Ordered By: Yuri Crenshaw on 02-18-2023 Creatinine [Mass/Vol] 0.53 mg/dL 0.55-1.02 [facility] Comment on above: The validity of the calculated GFR & GFRAA in patients over 70 years has not been determined. Clinical correlation is essential. Serum or plasma urea nitroge n measurement (mass/volume)Ordered By: Yuri Crenshaw on 02-18-2023 Urea nitrogen [Mass/Vol] 5 mg/dL 7-18 [facility] Thin prep Papanicolaou smear with manual screeningOrdered By: Yuri Crenshaw on 02-18-2023 Thin prep Papanicolaou smear with manual screening Neisseria or beta-hemolytic Streptococcus isolated. [facility] Thin prep Papanicolaou smear with manual screening 11 U/L 15-37 [facility] Thin prep Papanicolaou smear with manual screening 9 5-15 [facility] Laboratory - Chemistry and C hemistry - challengeon 02-17-2023 Glucose Ql (U) Negative [facility] Laboratory - Urinalysison Protein Ql (U) Negative [facility] Neisseria gonorrhoeae genita l PCROrdered By: Laura Salinas on 02-17-2023 N. gonorrhoeae DNA MAYTE+probe Ql (Genital specimen) [facility] No Panel InformationOrdered By: Laura Salinas on 02-17-2023 Chlamydia trachomatis (PCR) [facility] Laboratory - Chemistry and C hemistry - challengeon 02-02-2023 Glucose Ql (U) Negative [facility] Laboratory - Urinalysison Protein Ql (U) Negative [facility] Absolute lymphocyte countOrd ered By: Love Castillo on 01-30-2023 Lymphocytes Auto (Unsp spec) [#/Vol] 1.57 10*3/uL 0.83-4.51 [facility] Basophil percentageOrdered B y: Love Castillo on 01-30-2023 Basophils/100 WBC (Bld) 0.2 % 0-1 [facility] Bilirubin [Mass/Vol] 1.10 mg/dL 0.20-1.00 [facility] Comment on above: For patients on eltr ombopag therapy, use of Dimension [place] TBIL is not recommended. Chloride [Moles/Vol] 107 mmol/L 98-107 [facility] Eosinophils/100 WBC (Bld) 0.8 % 0-5 [facility] Glucose [Mass/Vol] 102 mg/dL 74-106 [facility] Comment on above: Fasting Glucose resu lt from 100 to 125 mg/dL suggests IMPAIRED HOMEOSTASIS per A.D.A. criteria. Neutrophils (Bld) [#/Vol] 5.8 10*3/uL 2.0-7.7 [facility] Neutrophils/100 WBC (Bld) 69.8 % 47-70 [facility] Potassium [Moles/Vol] 3.1 mmol/L 3.5-5.1 [facility] Protein [Mass/Vol] 6.4 g/dL 6.4-8.2 [facility] Sodium [Moles/Vol] 138 mmol/L 136-145 [facility] WBC (Bld) [#/Vol] 8.4 10*3/uL 4.4-11.0 [facility] Blood erythrocytes count (nu mber/volume)Ordered By: Love Castillo on 01-30-2023 RBC (Bld) [#/Vol] 3.39 10*6/uL 4.2-5.4 [facility] Blood hemoglobin measurement (mass/volume)Ordered By: Love Castillo on 01-30-2023 Hemoglobin (Bld) [Mass/Vol] 10.1 g/dL 12.0-15.0 [facility] Blood lymphocytes/100 leukoc ytesOrdered By: Love Castillo on 01-30-2023 Lymphocytes/100 WBC (Bld) 18.8 % 19-41 [facility] Blood monocytes/100 leukocyt esOrdered By: Love Castillo on 01-30-2023 Monocytes/100 WBC (Bld) 9.4 % 0-10 [facility] Blood platelet mean volumeOr dered By: Love Castillo on 01-30-2023 Platelet mean volume (Bld) [Entitic vol] 9.8 fL 6.2-12.0 [facility] Determination of erythrocyte mean corpuscular volume (MCV)Ordered By: Love Castillo on 01-30-2023 MCV (RBC) [Entitic vol] 90.3 fL 81-99 [facility] Hematocrit Auto (Bld) [Volum e fraction]Ordered By: Love Castillo on 01-30-2023 Hematocrit (Bld) [Volume fraction] 30.6 % 37-47 [facility] Laboratory - Chemistry and C hemistry - challengeOrdered By: Love Castillo on 01-30-2023 ALP [Catalytic activity/Vol] 99 U/L 45-117 [facility] ALT [Catalytic activity/Vol] 22 U/L 13-56 [facility] CO2 [Moles/Vol] 24.0 mmol/L 21.0-32.0 [facility] Globulin (S) [Mass/Vol] 3.9 g/dL 2.2-4.2 [facility] Urea nitrogen/Creatinine [Mass ratio] 8.4 mg/mg 10-20 [facility] Laboratory - Hematology and Cell countsOrdered By: Love Castillo on 01-30-2023 Erythrocyte distribution width (RBC) [Entitic vol] 46.1 fL 35.1-43.9 [facility] Erythrocyte distribution width (RBC) [Ratio] 14.2 % 11.6-14.6 [facility] Immature granulocytes/100 WBC (Bld) 1.000 % 0.0-0.9 [facility] Comment on above: IG% - Immature Granu locytes (promyelocytes, myelocytes and metamyelocytes) > 1% indicates that a LEFT SHIFT is Present. MCH (RBC) [Entitic mass] 29.8 pg 27.0-32.0 [facility] Nucleated RBC/100 WBC (Bld) [Ratio] 0 % 0-5 [facility] MCHC Auto (RBC) [Mass/Vol]Or dered By: Love Castillo on 01-30-2023 MCHC (RBC) [Mass/Vol] 33.0 g/dL 32-36 [facility] No Panel InformationOrdered By: Love Castillo on 01-30-2023 Estimated GFR (MDRD) Amer 151 mL/min >60 [facility] Comment on above: GFR Calc Estimated GFR (MDRD) Non-Af Amer 124 mL/min >60 [facility] Comment on above: Non- GFR Calc Miscellaneous Test See comment [facility] Comment on above: TEST RESULTS LIMITSB ile Acids, Fractionated LCMSUrsodeoxycholic Acids 0.10 umol/LReference Range:All Ages: <1.9Cholic Acids 0.20 umol/LReference Range:All Ages: <2.2Chenodeoxycholic Acids 0.90 umol/LReference Range:All Ages: <5.8Deoxycholic Acids 0.50 umol/LReference Range:All Ages: <3.3Total Bile Acids 1.7 umol/LThis test was developed and its performance characteristicsdetermined by [facility]. It has not been cleared or approvedby the Food and Drug Administration.Reference Range:All Ages: <9.2 TESTING PERFORMED AT [facility]. ORIGINAL REPORT ON FILE IN LAB CONTAINS ADDITIONAL TEST SITE INFORMATION. No Panel InformationOrdered By: Yuri Crenshaw on 01-30-2023 Hepatitis C Antibody Non-Reactive Nonreactive [facility] Comment on above: Non Reactive: < 0.8 Equivocal: >/= 0.8 to < 1.0 Reactive: >/= 1.0The CDC recommends that a reactive/equivocal HCV antibody result be followed up by the HCV Nucleic Acid Amplificationtest ([id number]) Platelets bldOrdered By: Doug Mirelestings on 01-30-2023 Platelets (Bld) [#/Vol] 271 10*3/uL 150-450 [facility] Serum hepatitis B virus surf [place] antibody IgG detectionOrdered By: Yuri Crenshaw on 01-30-2023 HBV surface IgG Ql (S) Non-Reactive [facility] Comment on above: Non Reactive: Incons istent with immunity less than <10 mIU/mL Reactive: Consistent with immunity greater than or equal to 10 mIU/mL Serum or plasma albumin edilia urement (mass/volume)Ordered By: Love Castillo on 01-30-2023 Albumin [Mass/Vol] 2.5 g/dL 3.2-5.0 [facility] Serum or plasma albumin/glob ulin mass ratioOrdered By: Love Castillo on 01-30-2023 Albumin/Globulin [Mass ratio] 0.6 {ratio} 0.9-2.4 [facility] Serum or plasma calcium edilia urement (mass/volume)Ordered By: Love Castillo on 01-30-2023 Calcium [Mass/Vol] 8.6 mg/dL 8.5-10.1 [facility] Serum or plasma creatinine m easurement (mass/volume)Ordered By: Love Castillo on 01-30-2023 Creatinine [Mass/Vol] 0.59 mg/dL 0.55-1.02 [facility] Comment on above: The validity of the calculated GFR & GFRAA in patients over 70 years has not been determined. Clinical correlation is essential. Serum or plasma urea nitroge n measurement (mass/volume)Ordered By: Love Castillo on 01-30-2023 Urea nitrogen [Mass/Vol] 5 mg/dL 7-18 [facility] Thin prep Papanicolaou smear with manual screeningOrdered By: Love Castillo on 01-30-2023 Thin prep Papanicolaou smear with manual screening 17 U/L 15-37 [facility] Thin prep Papanicolaou smear with manual screening 7 5-15 [facility] Absolute lymphocyte countOrd ered By: ED PROVIDER on 01-23-2023 Lymphocytes Auto (Unsp spec) [#/Vol] 2.06 10*3/uL 0.83-4.51 [facility] Basophil percentageOrdered B y: ED PROVIDER on 01-23-2023 Basophils/100 WBC (Bld) 0.4 % 0-1 [facility] Chloride [Moles/Vol] 105 mmol/L 98-107 [facility] Eosinophils/100 WBC (Bld) 0.9 % 0-5 [facility] Glucose [Mass/Vol] 99 mg/dL 74-106 [facility] Neutrophils (Bld) [#/Vol] 8.5 10*3/uL 2.0-7.7 [facility] Neutrophils/100 WBC (Bld) 72.6 % 47-70 [facility] Potassium [Moles/Vol] 3.3 mmol/L 3.5-5.1 [facility] Sodium [Moles/Vol] 134 mmol/L 136-145 [facility] WBC (Bld) [#/Vol] 11.7 10*3/uL 4.4-11.0 [facility] Blood erythrocytes count (nu mber/volume)Ordered By: ED PROVIDER on 01-23-2023 RBC (Bld) [#/Vol] 3.71 10*6/uL 4.2-5.4 [facility] Blood hemoglobin measurement (mass/volume)Ordered By: ED PROVIDER on 01-23-2023 Hemoglobin (Bld) [Mass/Vol] 10.9 g/dL 12.0-15.0 [facility] Blood lymphocytes/100 leukoc ytesOrdered By: ED PROVIDER on 01-23-2023 Lymphocytes/100 WBC (Bld) 17.5 % 19-41 [facility] Blood monocytes/100 leukocyt esOrdered By: ED PROVIDER on 01-23-2023 Monocytes/100 WBC (Bld) 6.9 % 0-10 [facility] Blood platelet mean volumeOr dered By: ED PROVIDER on 01-23-2023 Platelet mean volume (Bld) [Entitic vol] 9.7 fL 6.2-12.0 [facility] Determination of erythrocyte mean corpuscular volume (MCV)Ordered By: ED PROVIDER on 01-23-2023 MCV (RBC) [Entitic vol] 89.2 fL 81-99 [facility] Hematocrit Auto (Bld) [Volum e fraction]Ordered By: ED PROVIDER on 01-23-2023 Hematocrit (Bld) [Volume fraction] 33.1 % 37-47 [facility] Laboratory - Chemistry and C hemistry - challengeOrdered By: ED PROVIDER on 01-23-2023 CO2 [Moles/Vol] 18.0 mmol/L 21.0-32.0 [facility] Urea nitrogen/Creatinine [Mass ratio] 14.1 mg/mg 10-20 [facility] Laboratory - Hematology and Cell countsOrdered By: ED PROVIDER on 01-23-2023 Erythrocyte distribution width (RBC) [Entitic vol] 44.8 fL 35.1-43.9 [facility] Erythrocyte distribution width (RBC) [Ratio] 13.9 % 11.6-14.6 [facility] Immature granulocytes/100 WBC (Bld) 1.700 % 0.0-0.9 [facility] Comment on above: IG% - Immature Granu locytes (promyelocytes, myelocytes and metamyelocytes) > 1% indicates that a LEFT SHIFT is Present. MCH (RBC) [Entitic mass] 29.4 pg 27.0-32.0 [facility] Nucleated RBC/100 WBC (Bld) [Ratio] 0 % 0-5 [facility] MCHC Auto (RBC) [Mass/Vol]Or dered By: ED PROVIDER on 01-23-2023 MCHC (RBC) [Mass/Vol] 32.9 g/dL 32-36 [facility] No Panel InformationOrdered By: ED PROVIDER on 01-23-2023 Estimated Creatinine Clearance Calc 151.22 ml/min [facility] Estimated GFR (MDRD) Amer 184 mL/min >60 [facility] Comment on above: GFR Calc Estimated GFR (MDRD) Non-Af Amer 152 mL/min >60 [facility] Comment on above: Non- GFR Calc Troponin I High Sensitivity 6 pg/mL 3.0-54.0 [facility] Comment on above: Please Note: New Theo t Units and Gender Specific Reference Ranges. For more information see Policy Stat Procedure [place] High Sensitivity Troponin (TNIH) and attachments. Platelets bldOrdered By: ED PROVIDER on 01-23-2023 Platelets (Bld) [#/Vol] 310 10*3/uL 150-450 [facility] Serum or plasma calcium edilia urement (mass/volume)Ordered By: ED PROVIDER on 01-23-2023 Calcium [Mass/Vol] 9.4 mg/dL 8.5-10.1 [facility] Serum or plasma creatinine m easurement (mass/volume)Ordered By: ED PROVIDER on 01-23-2023 Creatinine [Mass/Vol] 0.50 mg/dL 0.55-1.02 [facility] Comment on above: The validity of the calculated GFR & GFRAA in patients over 70 years has not been determined. Clinical correlation is essential. Serum or plasma urea nitroge n measurement (mass/volume)Ordered By: ED PROVIDER on 01-23-2023 Urea nitrogen [Mass/Vol] 7 mg/dL 7-18 [facility] Thin prep Papanicolaou smear with manual screeningOrdered By: ED PROVIDER on 01-23-2023 Thin prep Papanicolaou smear with manual screening 11 5-15 [facility] Basophil percentageOrdered B y: Yuri Crenshaw on 01-16-2023 WBC (Bld) [#/Vol] 9.8 10*3/uL 4.4-11.0 [facility] Blood erythrocytes count (nu mber/volume)Ordered By: Yuri Crenshaw on 01-16-2023 RBC (Bld) [#/Vol] 3.16 10*6/uL 4.2-5.4 [facility] Blood hemoglobin measurement (mass/volume)Ordered By: Yuri Crenshaw on 01-16-2023 Hemoglobin (Bld) [Mass/Vol] 9.5 g/dL 12.0-15.0 [facility] Blood platelet mean volumeOr dered By: Yuri Crenshaw on 01-16-2023 Platelet mean volume (Bld) [Entitic vol] 9.9 fL 6.2-12.0 [facility] Chlamydia trachomatis rRNA d etection by probe and target amplification methodOrdered By: Jeanette Roach on 01-16-2023 C. trachomatis rRNA MAYTE+probe Ql (Unsp spec) Positive Negative [facility] Determination of erythrocyte mean corpuscular volume (MCV)Ordered By: Yuri Crenshaw on 01-16-2023 MCV (RBC) [Entitic vol] 92.1 fL 81-99 [facility] Hematocrit Auto (Bld) [Volum e fraction]Ordered By: Yuri Crenshaw on 01-16-2023 Hematocrit (Bld) [Volume fraction] 29.1 % 37-47 [facility] Laboratory - Chemistry and C hemistry - challengeon 01-16-2023 Bilirubin Ql (U) Negative [facility] Glucose Ql (U) Negative [facility] Ketones Ql (U) Small (15+) [facility] Specific gravity (U) [Rel density] 1.010 [facility] Urobilinogen (U) [Mass/Vol] Negative [facility] Laboratory - Hematology and Cell countsOrdered By: Yuri Crenshaw on 01-16-2023 Erythrocyte distribution width (RBC) [Entitic vol] 45.9 fL 35.1-43.9 [facility] Erythrocyte distribution width (RBC) [Ratio] 13.5 % 11.6-14.6 [facility] MCH (RBC) [Entitic mass] 30.1 pg 27.0-32.0 [facility] Laboratory - Hematology and Cell countson 01-16-2023 Hemoglobin Ql (U) Negative [facility] Laboratory - Microbiology an d Antimicrobial susceptibilityOrdered By: Jeanette Roach on 01-16-2023 N. gonorrhoeae DNA MAYTE+probe Ql (Unsp spec) Negative Negative [facility] Comment on above: Performed at: =[address] [id number] Director: Rita Vallecillo MD, Phone: [phone] Laboratory - Specimen inform ationon 01-16-2023 Clarity (U) Clear [facility] Color (U) RED [facility] Laboratory - Urinalysison Nitrite Ql (U) Negative [facility] Protein Ql (U) Negative [facility] MCHC Auto (RBC) [Mass/Vol]Or dered By: Yuri Crenshaw on 01-16-2023 MCHC (RBC) [Mass/Vol] 32.6 g/dL 32-36 [facility] No Panel InformationOrdered By: Jeanette Roach on 01-16-2023 Vaginal Amniotic Fluid Detection Negative Negative [facility] Comment on above: Amniotic fluid not p resent indicates No Rupture of FetalMembranes at time of specimen collection. No Panel Informationon 01-16 POC Bacterial Vaginitis (Rapid) Negative [facility] POC Trichomonas (Rapid) Negative [facility] Urine Leukocytes Positive [facility] Urine Non-Hemolyzed Blood [facility] Platelets bldOrdered By: Alexis Crenshaw on 01-16-2023 Platelets (Bld) [#/Vol] 256 10*3/uL 150-450 [facility] Absolute lymphocyte countOrd ered By: Melissa Saxena on 12-21-2022 Lymphocytes Auto (Unsp spec) [#/Vol] 1.45 10*3/uL 0.83-4.51 [facility] Basophil percentageOrdered B y: Melissa Saxena on 12-21-2022 Basophils/100 WBC (Bld) 0.4 % 0-1 [facility] Bilirubin [Mass/Vol] 0.60 mg/dL 0.20-1.00 [facility] Comment on above: For patients on eltr ombopag therapy, use of Dimension [place] TBIL is not recommended. Chloride [Moles/Vol] 106 mmol/L 98-107 [facility] Eosinophils/100 WBC (Bld) 2.5 % 0-5 [facility] Glucose [Mass/Vol] 139 mg/dL 74-106 [facility] Comment on above: Fasting Glucose resu lt greater than or equal to 126 mg/dL suggests DIABETES MELLITUS per A.D.A. criteria. Neutrophils (Bld) [#/Vol] 6.8 10*3/uL 2.0-7.7 [facility] Neutrophils/100 WBC (Bld) 73.4 % 47-70 [facility] Potassium [Moles/Vol] 3.6 mmol/L 3.5-5.1 [facility] Protein [Mass/Vol] 6.6 g/dL 6.4-8.2 [facility] Sodium [Moles/Vol] 137 mmol/L 136-145 [facility] WBC (Bld) [#/Vol] 9.3 10*3/uL 4.4-11.0 [facility] Blood erythrocytes count (nu mber/volume)Ordered By: Melissa Saxena on 12-21-2022 RBC (Bld) [#/Vol] 3.61 10*6/uL 4.2-5.4 [facility] Blood hemoglobin measurement (mass/volume)Ordered By: Melissa Saxena on 12-21-2022 Hemoglobin (Bld) [Mass/Vol] 11.0 g/dL 12.0-15.0 [facility] Blood lymphocytes/100 leukoc ytesOrdered By: Melissa Saxena on 12-21-2022 Lymphocytes/100 WBC (Bld) 15.7 % 19-41 [facility] Blood monocytes/100 leukocyt esOrdered By: Melissa Saxena on 12-21-2022 Monocytes/100 WBC (Bld) 6.9 % 0-10 [facility] Blood platelet mean volumeOr dered By: Melissa Saxena on 12-21-2022 Platelet mean volume (Bld) [Entitic vol] 9.7 fL 6.2-12.0 [facility] Determination of erythrocyte mean corpuscular volume (MCV)Ordered By: Melissa Saxena on 12-21-2022 MCV (RBC) [Entitic vol] 93.9 fL 81-99 [facility] Gestational diabetes screen 1-hour screen with 50g oral glucose loadOrdered By: Melissa Saxena on 12-21-2022 Glucose 1 Hr post 50 g glucose PO [Mass/Vol] 139 mg/dL 70-140 [facility] HIV 1 and HIV-2 antibody ass ay with HIV-1 p24 antigen detectionOrdered By: Melissa Saxena on 12-21-2022 HIV 1+2 Ab+HIV1 p24 Ag IA Ql Non-Reactive Nonreactive [facility] Hematocrit Auto (Bld) [Volum e fraction]Ordered By: Melissa Saxena on 12-21-2022 Hematocrit (Bld) [Volume fraction] 33.9 % 37-47 [facility] Laboratory - Chemistry and C hemistry - challengeOrdered By: Melissa Saxena on 12-21-2022 ALP [Catalytic activity/Vol] 79 U/L 45-117 [facility] ALT [Catalytic activity/Vol] 10 U/L 13-56 [facility] CO2 [Moles/Vol] 21.0 mmol/L 21.0-32.0 [facility] Globulin (S) [Mass/Vol] 4.1 g/dL 2.2-4.2 [facility] Urea nitrogen/Creatinine [Mass ratio] 7.8 mg/mg 10-20 [facility] Laboratory - Chemistry and C hemistry - challengeon 12-21-2022 Glucose Ql (U) Negative [facility] Laboratory - Hematology and Cell countsOrdered By: Melissa Saxena on 12-21-2022 Erythrocyte distribution width (RBC) [Entitic vol] 45.7 fL 35.1-43.9 [facility] Erythrocyte distribution width (RBC) [Ratio] 13.3 % 11.6-14.6 [facility] Immature granulocytes/100 WBC (Bld) 1.100 % 0.0-0.9 [facility] Comment on above: IG% - Immature Granu locytes (promyelocytes, myelocytes and metamyelocytes) > 1% indicates that a LEFT SHIFT is Present. MCH (RBC) [Entitic mass] 30.5 pg 27.0-32.0 [facility] Nucleated RBC/100 WBC (Bld) [Ratio] 0 % 0-5 [facility] Laboratory - Urinalysison Protein Ql (U) Negative [facility] MCHC Auto (RBC) [Mass/Vol]Or dered By: Melissa Saxena on 12-21-2022 MCHC (RBC) [Mass/Vol] 32.4 g/dL 32-36 [facility] No Panel InformationOrdered By: Melissa Saxena on 12-21-2022 Estimated GFR (MDRD) Amer 137 mL/min >60 [facility] Comment on above: GFR Calc Estimated GFR (MDRD) Non-Af Amer 113 mL/min >60 [facility] Comment on above: Non- GFR Calc Hepatitis B Surface Antigen Non-Reactive Nonreactive [facility] Hepatitis C Antibody Non-Reactive Nonreactive [facility] Comment on above: Non Reactive: < 0.8 Equivocal: >/= 0.8 to < 1.0 Reactive: >/= 1.0The CDC recommends that a reactive/equivocal HCV antibody result be followed up by the HCV Nucleic Acid Amplificationtest ([id number]) Rubella IgG Antibody Reactive Nonreactive [facility] Comment on above: Antibody Results Int erpretation of Immune Status Non Reactive Presumed Non-Immune Equivocal Equivocal Reactive Presumed Immune Platelets bldOrdered By: Ivanna Saxena on 12-21-2022 Platelets (Bld) [#/Vol] 280 10*3/uL 150-450 [facility] Serum Treponema species anti body detectionOrdered By: Melissa Saxena on 12-21-2022 Treponema sp Ab Ql (S) Non-Reactive [facility] Serum or plasma albumin edilia urement (mass/volume)Ordered By: Melissa Saxena on 12-21-2022 Albumin [Mass/Vol] 2.5 g/dL 3.2-5.0 [facility] Serum or plasma albumin/glob ulin mass ratioOrdered By: Melissa Saxena on 12-21-2022 Albumin/Globulin [Mass ratio] 0.6 {ratio} 0.9-2.4 [facility] Serum or plasma calcium edilia urement (mass/volume)Ordered By: Melissa Saxena on 12-21-2022 Calcium [Mass/Vol] 8.6 mg/dL 8.5-10.1 [facility] Serum or plasma creatinine m easurement (mass/volume)Ordered By: Melissa Saxena on 12-21-2022 Creatinine [Mass/Vol] 0.64 mg/dL 0.55-1.02 [facility] Comment on above: The validity of the calculated GFR & GFRAA in patients over 70 years has not been determined. Clinical correlation is essential. Serum or plasma urea nitroge n measurement (mass/volume)Ordered By: Melissa Saxena on 12-21-2022 Urea nitrogen [Mass/Vol] 5 mg/dL 7-18 [facility] Thin prep Papanicolaou smear with manual screeningOrdered By: Melissa Saxena on 12-21-2022 Thin prep Papanicolaou smear with manual screening 8 U/L 15-37 [facility] Thin prep Papanicolaou smear with manual screening 10 5-15 [facility] Urine creatinine measurement (mass/volume)Ordered By: Melissa Saxena on 12-21-2022 Creatinine (U) [Mass/Vol] 122.00 mg/dL NO RANGE EST. [facility] Urine protein measurement (m ass/volume)Ordered By: Melissa Saxena on 12-21-2022 Protein (U) [Mass/Vol] 23.1 mg/dL 0.0-11.8 [facility] Urine protein/creatinine mas s ratioOrdered By: Melissa Saxena on 12-21-2022 Protein/Creatinine (U) [Mass ratio] 189 mg/g CRE 0-200 [facility] PT Progress Noteon 3 PT Progress Note No report was sent [facility] Therapy Communicationon - Therapy Communication Message QUE ESCOBAR no showed today 11/29/22. Pt NCNS to recheck again. Signatures Electronically signed by : Sylvia Calle PT; Nov 29 2022 9:53AM EST (Author) Normal [facility] Laboratory - Chemistry and C hemistry - challengeon 11-25-2022 Glucose Ql (U) Negative [facility] Laboratory - Urinalysison Protein Ql (U) Negative [facility] PT Progress Noteon 3 PT Progress Note No report was sent [facility] Communicationon 06- Therapy Communication Message QUE ESCOBAR canceled today 11/17/22. Pt cancel recheck today. If she does not return within 30 days she will be d/c from skilled PT per attendance policy. Signatures Electronically signed by : Sylvia Calle PT; Nov 17 2022 10:28AM EST (Author) [facility] Blood type and Indirect anti body screen panel (Bld)on 11-11-2022 ABO group Nom (Bld) A [facility] Rh Nom (Bld) Negative [facility] Comment on above: Review your Rh Negat jesus female patient's potential need for Rh Immune Globulin (RhIg)administration. [facility] CBCon 11-11-2022 Erythrocyte distribution width (RBC) [Ratio] 14.2 % Normal 11.5 - 14.5 [facility] Comment on above: Performed By: #### C BC #### [facility] [address] [place] [address] Hematocrit (Bld) [Volume fraction] 33.5 % Low 36.0 - 46.0 [facility] Comment on above: Performed By: #### C BC #### [address] [address] Hemoglobin (Bld) [Mass/Vol] 11.4 g/dL Low 12.0 - 16.0 [facility] Comment on above: Performed By: #### C BC #### [address] [address] MCHC (RBC) [Mass/Vol] 34.0 g/dL Normal 32.0 - 36.0 [facility] Comment on above: Performed By: #### C BC #### [address] [address] MCV (RBC) [Entitic vol] 93 fL Normal 80 - 100 [facility] Comment on above: Performed By: #### C BC #### [address] [address] Platelets (Bld) [#/Vol] 271 10*3/uL Normal 150 - 450 [facility] Comment on above: Performed By: #### C BC #### [address] [address] RBC 3.62 x10E12/L Low 4.00 - 5.20 [facility] Comment on above: Performed By: #### C BC #### [address] [address] WBC (Bld) [#/Vol] 10.5 10*3/uL Normal 4.4 - 11.3 [facility] Comment on above: Performed By: #### C BC #### [address] [address] CBC panel Auto (Bld)on 11-11 Erythrocyte distribution width (RBC) [Ratio] 14.2 % 11.5 - 14.5 % [facility] Hematocrit (Bld) [Volume fraction] 33.5 % Low 36.0 - 46.0 % [facility] Hemoglobin (Bld) [Mass/Vol] 11.4 g/dL Low 12.0 - 16.0 g/dL [facility] Interpretation and review of laboratory results Abnormal [facility] MCHC (RBC) [Mass/Vol] 34.0 g/dL 32.0 - 36.0 g/dL [facility] MCV (RBC) [Entitic vol] 93 fL 80 - 100 fL [facility] Platelets (Bld) [#/Vol] 271 10*3/uL [facility] RBC (Bld) [#/Vol] 3.62 10*6/uL Low [facility] WBC (Bld) [#/Vol] 10.5 10*3/uL [facility] Daily Progress Note - OB-Tri ageon 11-11-2022 Daily Progress Note - OB-Triage Current Stage: Stage: Triage OB Dating: EDC/EGA Final [id number] EGA21.1 Subjective Data: Antepartum Vaginal Bleeding: Yes Movement: Good Antepartum: Patient presents stating that she has had intermittent vaginal bleeding over the last day. Patient states that the bleeding was minimal and she then had intercourse earlier last night. Patient obtains her care in [place]. Objective Information Objective Information: T [id number] [id number]% Date/Time11/11 3:486 0:256/9 3:4869 3:486 3:48 Range (78 - 115 ) (16 [...] related to recent intercourse. Follow-up with her [employer]MENT [employer] in the next several days. Electronic Signatures for Addendum Section: Andry Rueda) (Signed Addendum 11-Nov-2022 08:36) Patient given recommendation to avoid intercourse for the time being. Electronic Signatures: Andry Rueda) (Signed 11-Nov-2022 07:48) Authored: Current Stage, OB Dating, Subjective Data, Objective Data, Assessment and Plan, Note Completion Last Updated: 11-Nov-2022 08:36 by Andry Rueda) [facility] Laboratory - Blood bankon ABO group Nom (Bld) A [facility] [employer] Work Phone: Blood group antibody screen Ql Negative [facility] [employer] Work Phone: Rh immune globulin screen (Bld) [Interp] [facility] [employer] Work Phone: Comment on above: Review your Rh Negat jesus female patient's potential need for Rh Immune Globulin (RhIg)administration. Laboratory - Hematology and Cell countson 11-11-2022 Erythrocyte distribution width (RBC) [Ratio] 14.2 % See Below [facility] [employer] Work Phone: Comment on above: Reference Range: 11. 5 - 14.5 Hematocrit (Bld) [Volume fraction] 33.5 % below low threshold See Below [facility] [employer] Work Phone: Comment on above: Reference Range: 36. 0 - 46.0 Hemoglobin (Bld) [Mass/Vol] 11.4 g/dL below low threshold See Below [facility] [employer] Work Phone: Comment on above: Reference Range: 12. 0 - 16.0 MCHC (RBC) [Mass/Vol] 34.0 g/dL See Below [facility] Work Phone: [phone] Comment on above: Reference Range: 32. 0 - 36.0 MCV (RBC) [Entitic vol] 93 fL 80 - 100 [facility] Work Phone: [phone] Platelets (Bld) [#/Vol] 271 10*3/uL 150 - 450 [facility] Work Phone: [phone] RBC (Bld) [#/Vol] 3.62 {x10E12/L} below low threshold See Below [facility] Work Phone: Comment on above: Reference Range: 4.0 0 - 5.20 WBC (Bld) [#/Vol] 10.5 10*3/uL 4.4 - 11.3 [facility] Work Phone: No Panel Informationon 11-11 Normal [facility] Work Phone: TYPE + SCREENon 11-11-2022 ABO TYPE A [facility] Comment on above: Performed By: #### T +S #### [address] [address] RH TYPE Negative Normal [facility] Comment on above: Result Comment: Revi ew your Rh Negative female patient's potential need for Rh Immune Globulin (RhIg)administration. Performed By: #### T +S #### [place] [id number] Triage Note - OB v4on 2022 Triage Note - OB v4 Triage: General Info: Time of Arrival on [id number] 00:07 [facility] Time Acuity Level [id number] 00:15 Chief Complaintvaginal bleeding Spoken Language PreferredEnglish Source of Informationpatient Weight in kg78 kilogram(s) Weight in gby063.9 pound(s) Weight Methodactual (measured) Scale Typestanding Height in feet5 feet Height in inches5.94 inch(es) Height in cm167.4 centimeter(s) Height Methodstated BMI (kg/m2)27.834 square meter Blood Avoidance/Restrictionsn one Previous Transfusion Reactionnot applicable Patient Belongingsremains with patient Patient Belongings Remaining with Patientcell phone/electronics; clothing Home Meds have been Reviewed and Verified with Patient/Familyyes Info: Gravida6 Term Deliveries5 Deliveries0 Abortions0 Living Children5 Patient stated [id number] Calculation of EGA based on patient stated EDD21.1 Records availableno Trimester Care Initiatedfirst Care ProviderBloomingtonlata Lela Current RisksRh negative, seizure disorder, previous subchorionic [...] for Home Blood Pressure Monitorno Admission/Observation/D ischarge/Transfer Date/[id number] 03:53 Discharge Modeambulatory Transportation Methodprivate car Travel [...] Information Last Updated: 11-Nov-2022 03:58 by Mame Hughes) [facility] US PLACENT LOCon 11-11-2022 US PLACENT LOC Patient Name: QUE ESCOBAR STUDY: US PLACENT LOC 11/11/2022 2:16 am INDICATION: 32 y/o F with vaginal bleeding . COMPARISON: 09/10/2022 ACCESSION NUMBER(S): [id number] ORDERING CLINICIAN: ANDRY RUEDA TECHNIQUE: Transabdominal sonographic [...] recommended. Electronically signed by: SOUTH NAJERA MD [facility] for pregnancyon 3 Single live intrauterine with ultrasound average gestational age of 21 week and 4 days. Placenta is fundal in location without evidence of placenta previa. Please note the examination was performed for assessment of viability and anatomy is not assessed; correlation with outpatient full anatomic survey is recommended. [facility] Interpreted By: SOUTH NAJERA MD Patient Name: QUE ESCOBAR STUDY: US PLACENT LOC 11/11/2022 2:16 am INDICATION: 32 y/o F with vaginal bleeding . COMPARISON: 09/10/2022 ACCESSION NUMBER(S): [id number] ORDERING CLINICIAN: ANDRY RUEDA TECHNIQUE: Transabdominal sonographic [...] 21 week and 4 days gestational age. [facility] South Najera MD - 11/11/2022 Interpreted By: SOUTH NAJERA MD Patient Name: QUE ESCOBAR STUDY: US PLACENT LOC 11/11/2022 2:16 am INDICATION: 32 y/o F with vaginal bleeding . COMPARISON: 09/10/2022 ACCESSION NUMBER(S): [id number] ORDERING CLINICIAN: ANDRY RUEDA TECHNIQUE: Transabdominal sonographic [...] with outpatient full anatomic survey is recommended. [facility] Work Phone: Radiology Study observation (narrative) [facility] Work Phone: US for pregnancyOrdered By: South Najera on 11-11-2022 [facility] Work Phone: PT Progress Noteon 3 PT [...] important to know Initial Fall Risk Screening: UQE has not fallen in the last 6 [...] to doctors? appointments. Primary Language for learning: saudi arabian. Insurance Insurance reviewed Visit number: 08/10 Authorization required after evaluation Insurance: [facility] Evaluating therapist: Sharon Baldwin PT, [...] code time is 38 minutes. Therapeutic exercise (87760): timed minutes 13, units 1 . 3x20 second each UT 3x20 second each levator scap Thoracic Extension 3 x 5 holds N Chin Tuck 10 x 3 holds N Scap Retraction 10 x 3 holds N Pec Stretch . Manual Therapy (03714): timed minutes 25, units 2 . PROM cervical 5' Gentle STW cervical paraspinals, UTs, LS, Pecs 10' Gentle traction 2'. Aquatic Therapy (58796):. Below not performed; deferred at this time d/t current heart monitor All exercises preformed (more content not included)... Normal [facility] Progress Noteon 3 PT Progress Note No report was sent Normal [facility] Progress Noteon 3 PT [...] to doctors? appointments. Primary Language for learning: saudi arabian. Insurance Insurance reviewed Visit number: 07/13 Authorization required after evaluation Insurance: [facility] Evaluating therapist: Sharon Baldwin PT, [...] code time is 43 minutes. Aquatic Therapy (78898): timed minutes 43, units 3 . All [...] Gradual exi (more content not included)... Normal [facility] - Chemistry and C hemistry - challengeon 10-28-2022 Glucose Ql (U) Negative [facility] Laboratory - Urinalysison Protein Ql (U) Negative [facility] PT Progress Noteon 3 PT Progress Note No report was sent Normal [facility] Communicationon 10-04 Therapy Communication Message QUE ARDEN canceled today . Signatures Electronically signed by : Katalina Roach PTA; Oct 27 2022 11:42AM EST (Author) Normal [facility] Initial Evaluationon 10-03 PT Initial Evaluation [...] you for this referral and please call [phone] with any questions or concerns. Clinical Presentation: [...] most lik (more content not included)... Normal [facility] Thin prep Papanicolaou smear with manual screeningOrdered By: Dr. Saxena on 09-30-2022 Thin prep Papanicolaou smear with manual screening Normal genital kenny isolated [facility] Gram stain for investigation of transfusion reactionOrdered By: Dr. Saxena on 09-29-2022 Microscopic observation Gram stain Nom (Unsp spec) [facility] Gram stain for investigation of transfusion reactionOrdered By: Melissa Saxena on 09-28-2022 Microscopic observation Gram stain Nom (Unsp spec) [facility] Laboratory - Chemistry and C hemistry - challengeon 09-28-2022 Glucose Ql (U) Negative [facility] Laboratory - Urinalysison Protein Ql (U) Negative [facility] Thin prep Papanicolaou smear with manual screeningOrdered By: Melissa Saxena on 09-28-2022 Thin prep Papanicolaou smear with manual screening Normal genital kenny isolated [facility] Provider Note - ED v3on Provider Note [...] up with Dr. Yuri Fermin out of [place]. 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 Sensation and motor function of extremities grossly intact. Psych: Appropriate mood and affect. I have reviewed and confirmed nurses/medics notes for patient past, social and family history. Portions of this note were dictated by speech recognition. An attempt at proof reading was made to minimize errors. Minor errors in check out clerk may be present. HISTORY OF PRESENTING ILLNESS [...] it with no difficulty. Patient did the [id number] test again with no difficulty showing no [...] unreason (more content not included)... Normal [facility] ABO/RH GROUP TESTon 09-11-19 [address] A [address] [facility] Comment on above: Performed By: #### A BAY #### [place] [address] RH TYPE Negative Normal [facility] Comment on above: Result Comment: Revi ew your Rh Negative female patient's potential need for Rh Immune Globulin (RhIg)administration. Performed By: #### A BAY #### [place] [id number] BASIC METABOLIC PANELon - Anion gap [Moles/Vol] 10 mmol/L Normal - [facility] Comment on above: Performed By: #### B MP #### [address] [address] Calcium [Mass/Vol] 8.7 mg/dL Normal 8.6 - 10.3 [facility] Comment on above: Performed By: #### B MP #### [address] [address] Chloride [Moles/Vol] 103 mmol/L Normal 98 - 107 [facility] Comment on above: Performed By: #### B MP #### [address] [address] Creatinine [Mass/Vol] 0.56 mg/dL Normal 0.50 - 1.05 [facility] Comment on above: Performed By: #### B MP #### [address] [address] eGFR FEMALE >90 Normal >90 [facility] Comment on above: Result Comment: CALC ULATIONS OF ESTIMATED GFR ARE PERFORMED USING THE 2020 CKD-EPI STUDY REFIT EQUATION WITHOUT THE RACE VARIABLE FOR THE IDMS-TRACEABLE CREATININE METHODS. https://jasn.asnjournals.org/content/early//ASN.33197 14348 Performed By: #### B MP #### [address] [address] Glucose [Mass/Vol] 84 mg/dL Normal 74 - 99 [facility] Comment on above: Performed By: #### B MP #### [address] [address] HCO3 (Bld) [Moles/Vol] 24 mmol/L Normal 21 - 32 [facility] Comment on above: Performed By: #### B MP #### [address] [address] Potassium [Moles/Vol] 3.8 mmol/L Normal 3.5 - 5.3 [facility] Comment on above: Performed By: #### B MP #### [address] [address] Sodium [Moles/Vol] 133 mmol/L Low 136 - 145 [facility] Comment on above: Performed By: #### B MP #### [address] [address] Urea nitrogen [Mass/Vol] 10 mg/dL Normal 6 - 23 [facility] Comment on above: Performed By: #### B MP #### [address] [address] CBC AND DIFFERENTIALon 09-10 % AUTOMATED IMMATURE GRAN 1.8 % High 0.0 - 0.9 [facility] Comment on above: Result Comment: Yuliya ture Granulocyte Count (IG) includes promyelocytes, myelocytes and metamyelocytes but does not include bands. Percent differential counts (%) should be interpreted in the context of the absolute cell counts (cells/L). Performed By: #### C BCDF #### [address] [address] Basophils (Bld) [#/Vol] 0.03 10*3/uL Normal 0.00 - 0.10 [facility] Comment on above: Performed By: #### C BCDF #### [address] [address] Basophils/100 WBC (Bld) 0.3 % Normal 0.0 - 2.0 [facility] Comment on above: Performed By: #### C BCDF #### [address] [address] Eosinophils (Bld) [#/Vol] 0.31 10*3/uL Normal 0.00 - 0.70 [facility] Comment on above: Performed By: #### C BCDF #### [address] [address] Eosinophils/100 WBC (Bld) 3.4 % Normal 0.0 - 6.0 [facility] Comment on above: Performed By: #### C BCDF #### [address] [address] Erythrocyte distribution width (RBC) [Ratio] 13.0 % Normal 11.5 - 14.5 [facility] Comment on above: Performed By: #### C BCDF #### [address] [address] Hematocrit (Bld) [Volume fraction] 38.5 % Normal 36.0 - 46.0 [facility] Comment on above: Performed By: #### C BCDF #### [address] [address] Hemoglobin (Bld) [Mass/Vol] 13.3 g/dL Normal 12.0 - 16.0 [facility] Comment on above: Performed By: #### C BCDF #### [address] [address] Lymphocytes (Bld) [#/Vol] 2.18 10*3/uL Normal 1.20 - 4.80 [facility] Comment on above: Performed By: #### C BCDF #### [address] [address] Lymphocytes/100 WBC (Bld) 23.9 % Normal 13.0 - 44.0 [facility] Comment on above: Performed By: #### C BCDF #### [address] [address] MCHC (RBC) [Mass/Vol] 34.5 g/dL Normal 32.0 - 36.0 [facility] Comment on above: Performed By: #### C BCDF #### [address] [address] MCV (RBC) [Entitic vol] 88 fL Normal 80 - 100 [facility] Comment on above: Performed By: #### C BCDF #### [address] [address] Monocytes (Bld) [#/Vol] 0.81 10*3/uL Normal 0.10 - 1.00 [facility] Comment on above: Performed By: #### C BCDF #### [address] [address] Monocytes/100 WBC (Bld) 8.9 % Normal 2.0 - 10.0 [facility] Comment on above: Performed By: #### C BCDF #### [address] [address] Neutrophils (Bld) [#/Vol] 5.64 10*3/uL Normal 1.20 - 7.70 [facility] Comment on above: Result Comment: Perc ent differential counts (%) should be interpreted in the context of the absolute cell counts (cells/L). Performed By: #### C BCDF #### [address] [address] Neutrophils/100 WBC (Bld) 61.7 % Normal 40.0 - 80.0 [facility] Comment on above: Performed By: #### C BCDF #### [address] [address] Platelets (Bld) [#/Vol] 253 10*3/uL Normal 150 - 450 [facility] Comment on above: Performed By: #### C BCDF #### [address] [address] RBC 4.39 x10E12/L Normal 4.00 - 5.20 [facility] Comment on above: Performed By: #### C BCDF #### [address] [address] WBC (Bld) [#/Vol] 9.1 10*3/uL Normal 4.4 - 11.3 [facility] Comment on above: Performed By: #### C BCDF #### [address] [address] HCG,BETA-QUANTITATIVEon - HCG,BETA-QUANTITATIVE 60565 mIU/mL Abnormal [facility] Comment on above: Result Comment: . Total HCG measurement is performed using the [employer] [place] Access Immunoassay which detects intact HCG and free beta HCG subunit. . This test is not indicated for use as a tumor marker. HCG testing is performed using a different test methodology at [facility] than other [facility]. Direct result comparison should only be made [...] elevation. Performed By: #### H CGQU #### [address] [address] Provider Note - ED v3on - Provider Note - ED v3 Provider Note: [...] She is seen by Yuri Crenshaw at [place]. Patient states that nothing makes her symptoms [...] chart was dictated with the use of Kredits software within the framework of the current [...] Allergen: Flagyl T (more content not included)... [facility] Risk Screen - Adult Emergenc yon [...] instruction; written material Cultural Considerationsnone Developmental Considerationsnone Samaritan Considerationsnone Learning Assessment (Other Learner): Learning Assessment [...] an injured patient at a Trauma Center ([facility]/[place]lyri a/[place]): no Electronic Signatures: Jessica Tijerina (MICHAEL) (Signed 10-Sep-2022 21:01) Authored: Preferred Language, Patient Preferred Pharmacy, Advanced Directives, Family Violence Adult, Learning Assessment (Patient), Learning Assessment (Other Learner), Pressure Injury/TB/Substance, Pressure Injury, CAGE Last Updated: 10-Sep-2022 21:01 by Jessica Tijerina (MICHAEL) References: 1. Data Referenced From Provider Note - ED v3 10-Sep-2022 20:06 [facility] Triage - EDon 09-10-2022 Triage - [...] obeys commands Best Verbal Response: (V5) oriented [place] Score: 15 Cough lasting greater than 3 weeks: no Allergies: yes Mask applied: no EQUIPMENT OPERAT0R History: Patient has homicidal thoughts: no Symptoms [...] 21:00 by Jessica Tijerina (RN) Normal [facility] UA MICROSCOPICon 09-10-2022 Mucus Ql (Urine sed) 1+ /LPF Normal [facility] Comment on above: Performed By: #### U AMIC ####[place] [address] RBC 5 /HPF Normal 0-5 [facility] Comment on above: Performed By: #### U AMIC ####[place] [address] SQUAMOUS EPITH. CELLS 2 /HPF Normal [facility] Comment on above: Performed By: #### U AMIC ####[place] [address] WBC 1 /HPF Normal 0-5 [facility] Comment on above: Performed By: #### U AMIC ####[place] [address] URINALYSIS WITH CULTURE IF I NDICATEDon 09-10-2022 Appearance (U) CLEAR Normal CLEAR [facility] Comment on above: Performed By: #### U ARFX #### [place] [address] Bilirubin Ql (U) Negative Normal NEGATIVE [facility] Comment on above: Performed By: #### U ARFX #### [place] [address] Color (U) Yellow Normal STRAW,YELLOW [facility] Comment on above: Performed By: #### U ARFX #### [place] [address] Glucose Ql (U) Negative Normal NEGATIVE [facility] Comment on above: Performed By: #### U ARFX #### [place] [address] Hemoglobin Ql (U) MODERATE(2+) Abnormal NEGATIVE [facility] Comment on above: Performed By: #### U ARFX #### [place] [address] Ketones Ql (U) Negative Normal NEGATIVE [facility] Comment on above: Performed By: #### U ARFX #### [place] [address] Leukocyte esterase Test strip Ql (U) Negative Normal NEGATIVE [facility] Comment on above: Performed By: #### U ARFX #### [place] [address] Nitrite Ql (U) Negative Normal NEGATIVE [facility] Comment on above: Performed By: #### U ARFX #### [place] [address] pH (U) 5.0 [pH] Normal 5.0 - 8.0 [facility] Comment on above: Performed By: #### U ARFX #### [place] [address] Protein Ql (U) Negative Normal NEGATIVE [facility] Comment on above: Performed By: #### U ARFX #### [place] [address] Specific gravity (U) [Rel density] 1.028 Normal 1.005 - 1.035 [facility] Comment on above: Performed By: #### U ARFX #### [place] [id number] Urobilinogen (U) [Mass/Vol] mg/dL Normal 0.0 - 1.9 [facility] Comment on above: Performed By: #### U ARFX #### [address] [address] US AGEon 09-10-2022 US AGE Patient Name: QUE ESCOBAR STUDY: US AGE 409/10/2022 9:33 pm INDICATION: 32 y/o F with 12 WEEKS / BLEEDING. LMP: Unknown. COMPARISON: None. ACCESSION NUMBER(S): [id number] ORDERING CLINICIAN: CHEYANNE BRIGGS TECHNIQUE: Routine ultrasound [...] detected. Electronically signed by: EDY BRIGGS MD Normal [facility] Culture, urineOrdered By: Dr Susana Saxena on 08-20-2022 Bacteria identified Cx Nom (U) Culture exhibits no growth. [facility] Cervical or vagninal specime n microscopic examination by cytology stain (reported asOrdered By: Dr. Saxena on 08-17-2022 Cytology report Cyto stain Doc (Cvx/Vag) Comment . [facility] Comment on above: The Pap [...] rRNA MAYTE+probe Ql (Unsp spec) Negative Negative [facility] Detection in cervical specim en of any of human papilloma virus (HPV) 16, 18, 31, 33,Ordered By: Dr. Saxena on 08-17-2022 HPV 16+18+31+33+35+39+45+5 1+52+56+58+59+66+68 DNA Probe+sig amp Ql (Cvx) Negative Negative [facility] Comment on above: This nucleic acid am plification test detects fourteen high- risk HPV types (16,18,31,33,35,39,45,51,52,56,58,59,66,68)without differentiation. Laboratory - CytologyOrdered By: Dr. Saxena on 08-17-2022 Loss Prevention Representative Cyto stain Nom (Cvx/Vag) [ID] Comment . [facility] Comment on above: Sandy Carrillo otechnologist (ASCP) Laboratory - Microbiology an d Antimicrobial susceptibilityOrdered By: Dr. Saxena on 08-17-2022 N. gonorrhoeae DNA MAYTE+probe Ql (Unsp spec) Negative Negative [facility] Comment on above: Performed at: =[address] [id number] Director: Rita Vallecillo MD, Phone: [phone] Laboratory - Miscellaneous t estsOrdered By: Dr. Saxena on 08-17-2022 Service comment (Unsp spec) [Interp] Comment . [facility] Comment on above: This liquid based Th inPrep(R) pap test was screened withthe use of an image guided system. Service comment (Unsp spec) [Interp] . . [facility] Liquid-based cerv Pap + CT/G C by MAYTE w reflex to high-risk HPV for ASCUSOrdered By: Dr. Saxena on 08-17-2022 Cytology report Cyto stain.thin prep Doc (Cvx/Vag) Comment . [facility] Comment on above: Criteria not met, HP V Genotype not performed.Performed at: - [address] [id number] Director: Rita Vallecillo MD, Phone: [phone] at: =[facility] [address] [id number] Director: Rita Vallecillo MD, Phone: [phone] No Panel InformationOrdered By: Dr. Saxena on 08-17-2022 Pathology report final diagnosis Narrative Comment . [facility] Comment on above: NEGATIVE FOR INTRAEP ITHELIAL LESION OR MALIGNANCY.CELLULAR CHANGES ASSOCIATED WITH INFLAMMATION ARE PRESENT. COVID-19/INFLUENZA A,B NBA Valadez 08-02-2022 SARS-CoV-2 (COVID-19) Ab IA Ql INFLUENZA A (CEPHEID): Not Detected INFLUENZA B (CEPHEID): Not Detected SARS-COV-2 (CEPHEID): Not Detected This test was performed under the FDA's Emergency Use Authorization (EUA). Testing was performed using the Xpert?? Xpress SARS-CoV-2/Flu/RSV plus RT-PCR Cepheid assay on the [employer] Xpress System. This test has not been approved for use in asymptomatic patients and its performance in this patient population has not been evaluated. Negative results do not rule out the presence of SARS-CoV-2/COVID-19. Fact sheets for this EUA can be found at the following links: For Healthcare Providers: https://www.fda.gov/med ia/688024/download For Patients: https://www.fda.gov/med ia/467922/download [facility] Comment on above: Performed By: #### L [id number] #### [facility] [address] [place], [place] [address] Roberto Cruz M.D. [id number] HCG, Quanton 07-30-2022 HCG, Quant 11267 mIU/mL High <[address] [place] [address] Comment on above: Result Comment: Non-preg premeno <=5 Postmeno <=8 Male <=3 If HCG results do not concur with clinical observations, additional testing to confirm results is recommended. Performed By: #### B HCG #### [facility] [address] [place] [address] Manager Gallery: Osiel Sapp MD HCG, Quantitative, on 07-30-2022 hCG Quant 329[address] High NINF [facility] Comment on above: Non-preg premeno <=5 Postmeno <=8 Male <=3 If HCG results do not concur with clinical observations, additional testing to confirm results is recommended. Interpretation and review of laboratory results Abnormal [facility] Serum or plasma choriogonado tropin detectionOrdered By: Dr. Saxena on 07-29-2022 HCG ( test) Ql 9612 mIU/mL <4 [facility] Comment on above: hCG levels with Gest ational AgeGestational Age hCG mIU/mL (IU/L)0.2 - 1 week 5 - 501-2 weeks 50 - 5002-3 weeks 100 - 00490-6 weeks 500 - 482892-9 weeks 1000 - 628005-6 weeks 24979 - 100,0006-8 weeks 94257 - 200,0002-3 months 78595 - 100,000 Cult,Urineon 07-28-2022 Cult,Urine Specimen Description .URINE, MIDSTREAM Culture NO SIGNIFICANT GROWTH Report Status FINAL 07/28/2022 Normal [facility] Comment on above: Performed By: #### U RC #### [facility] [address] [place], [place] [id number] Manager Gallery: Lucas Olson MD [facility] [address] [facility] [place] [address] Manager Gallery: Osiel Sapp MD HCG, Quanton 07-28-2022 HCG, Quant 7888 mIU/mL High <5 [facility] Comment on above: Result Comment: Non-preg premeno <=5 Postmeno <=8 Male <=3 If HCG results do not concur with clinical observations, additional testing to confirm results is recommended. Performed By: #### B HCG #### [facility] [address] [place] [address] Manager Gallery: Osiel Sapp MD US OB TRANSVAGINALon 023 [...] by: Charles Jay MD 07/28/22 Final result [facility] Single viable intrauterine with only a yolk sac visualized with an estimated sonographic age less than 5 weeks. Question subcentimeter subchorionic hemorrhage. Recommend serial beta hCGs and follow-up ultrasound. [facility] TRANSVAGINAL FIRST TRIMESTER OB ULTRASOUND HISTORY: ; [...] no free fluid seen within the cul-de-sac. [facility] Charles Jay MD - 07/28/2022 TRANSVAGINAL FIRST [...] Recommend serial beta hCGs and follow-up ultrasound. [email or web address] Phone: Radiology Study observation (narrative) [facility] Work Phone: US OB TRANSVAGINALOrdered By : Charles Jay on 07-28-2022 [facility] Work Phone: hCG, Quantitative, on 07-28-2022 hCG Quant 7888 High [facility]INF [facility] Comment on above: Non-preg premeno <=5 Postmeno <=8 Male <=3 If HCG results do not concur with clinical observations, additional testing to confirm results is recommended. Interpretation and review of laboratory results Abnormal [facility] CBC with Diffon 07-26-2022 Abs. Basophil 0.00 k/uL Normal 0.0-0.2 [facility] Comment on above: Performed By: #### C DP, CP #### [facility] [address] [place] [id number] Manager Gallery: Osiel Sapp MD Abs.Neutrophil (Seg) 5.10 k/uL Normal 2.5-7.0 [facility] Comment on above: Performed By: #### C DP, CP #### [facility] [address] [place] [id number] Manager Gallery: Osiel Sapp MD Auto Diff Performed YES Normal [facility] Comment on above: Performed By: #### C DP, CP #### [facility] [address] [place] [id number] Manager Gallery: Osiel Sapp MD Basophils/100 WBC (Bld) 0 % Normal 0-2 [facility] Comment on above: Performed By: #### C DP, CP #### [facility] [address] [place] [address] Manager Gallery: Osiel Sapp MD Eosinophils (Bld) [#/Vol] 0.30 10*3/uL Normal 0.0-0.4 [facility] Comment on above: Performed By: #### C DP, CP #### [facility] [address] [place] [address] Manager Gallery: Osiel Sapp MD Eosinophils/100 WBC (Bld) 3 % Normal 0-5 [facility] Comment on above: Performed By: #### C DP, CP #### [facility] [address] [place] [id number] Manager Gallery: Osiel Sapp MD Erythrocyte distribution width (RBC) [Ratio] 13.1 % Normal 12.1-15.2 [facility] Comment on above: Performed By: #### C DP, CP #### [facility] [address] [place] [id number] Manager Gallery: Osiel Sapp MD Hematocrit (Bld) [Volume fraction] 41.1 % Normal 36-46 [facility] Comment on above: Performed By: #### C DP, CP #### [facility] [address] [phone] Manager Gallery: Osiel Sapp MD Hemoglobin (Bld) [Mass/Vol] 14.0 g/dL Normal 12.0-16.0 [facility] Comment on above: Performed By: #### C DP, CP #### [facility] [address] [phone] Manager Gallery: Osiel Sapp MD Lymphocytes (Bld) [#/Vol] 2.40 10*3/uL Normal 1.0-4.8 [facility] Comment on above: Performed By: #### C DP, CP #### [facility] [address] [phone] Manager Gallery: Osiel Sapp MD Lymphocytes/100 WBC (Bld) 28 % Normal 15-40 [facility] Comment on above: Performed By: #### C DP, CP #### [facility] [address] [place] [address] Manager Gallery: Osiel Sapp MD MCH (RBC) [Entitic mass] 30.3 pg Normal 26-34 [facility] Comment on above: Performed By: #### C DP, CP #### [facility] [address] [place] [address] ([phone]) Manager Gallery: Osiel Sapp MD MCHC (RBC) [Mass/Vol] 34.0 g/dL Normal 31-37 [facility] Comment on above: Performed By: #### C DP, CP #### [facility] [address] [phone] Manager Gallery: Osiel Sapp MD MCV (RBC) [Entitic vol] 89.2 fL Normal 80-100 [facility] Comment on above: Performed By: #### C DP, CP #### [facility] [address] [place] [address] Manager Gallery: Osiel Sapp MD Monocytes (Bld) [#/Vol] 0.60 10*3/uL Normal 0.0-1.0 [facility] Comment on above: Performed By: #### C DP, CP #### [facility] [address] [place] [address] Manager Gallery: Osiel Sapp MD Monocytes/100 WBC (Bld) 7 % Normal 4-8 [facility] Comment on above: Performed By: #### C DP, CP #### [facility] [address] [phone] Manager Gallery: Osiel Sapp MD Neutrophil (Seg) 62 % Normal 47-75 [facility] Comment on above: Performed By: #### C DP, CP #### [facility] [address] [place] [address] Manager Gallery: Osiel Sapp MD Platelets (Bld) [#/Vol] 276 10*3/uL Normal 140-450 [facility] Comment on above: Performed By: #### C DP, CP #### [facility] [address] [place], [place] [phone] Manager Gallery: Osiel Sapp MD RBC (Bld) [#/Vol] 4.61 10*6/uL Normal 4.0-5.2 [facility] Comment on above: Performed By: #### C DP, CP #### [facility] [address] [place], [place] [phone] Manager Gallery: Osiel Sapp MD WBC (Bld) [#/Vol] 8.3 10*3/uL Normal 3.5-11.0 [facility] Comment on above: Performed By: #### C DP, CP #### [facility] [address] [place] [address] Manager Gallery: Osiel Sapp MD Comp Metabolic Profon 2022 Albumin [Mass/Vol] 4.3 g/dL Normal 3.5-5.2 [facility] Comment on above: Performed By: #### C DP, CP #### [facility] [address] [place], [place] [phone] Manager Gallery: Osiel Sapp MD Alkaline Phos 115 U/L High 35-104 [facility] Comment on above: Performed By: #### C DP, CP #### [facility] [address] [place], [place] [phone] Manager Gallery: Osiel Sapp MD ALT [Catalytic activity/Vol] 16 U/L Normal 5-33 [facility] Comment on above: Performed By: #### C DP, CP #### [facility] [address] [place], [place] [phone] Manager Gallery: Osiel Sapp MD Anion gap [Moles/Vol] 12 mmol/L Normal 9-17 [facility] Comment on above: Performed By: #### C DP, CP #### [facility] [address] [place], [place] [phone] Manager Gallery: Osiel Sapp MD AST [Catalytic activity/Vol] 17 U/L Normal <32 [facility] Comment on above: Performed By: #### C DP, CP #### [facility] [address] [place], [place] [phone] Manager Gallery: Osiel Sapp MD Bilirubin [Mass/Vol] 0.6 mg/dL Normal 0.3-1.2 [facility] Comment on above: Performed By: #### C DP, CP #### [facility] [address] [place], [place] [phone] Manager Gallery: Osiel Sapp MD BUN/CRE Ratio 13 Normal 9-20 [facility] Comment on above: Performed By: #### C DP, CP #### [facility] [address] [place] [address] Manager Gallery: Osiel Sapp MD Calcium [Mass/Vol] 9.1 mg/dL Normal 8.6-10.4 [facility] Comment on above: Performed By: #### C DP, CP #### [facility] [address] [place], [place] [phone] Manager Gallery: Osiel Sapp MD Chloride [Moles/Vol] 99 mmol/L Normal 98-107 [facility] Comment on above: Performed By: #### C DP, CP #### [facility] [address] [place], [place] [phone] Manager Gallery: Osiel Sapp MD CO2 [Moles/Vol] 20 mmol/L Normal 20-31 [facility] Comment on above: Performed By: #### C DP, CP #### [facility] [address] [place], [place] [phone] Manager Gallery: Osiel Sapp MD Creatinine [Mass/Vol] 0.82 mg/dL Normal 0.50-0.90 [facility] Comment on above: Performed By: #### C DP, CP #### [facility] [address] [place], [place] [phone] Manager Gallery: Osiel Sapp MD GFR/1.73 sq M.predicted among non-blacks MDRD (S/P/Bld) [Vol rate/Area] mL/min/{1.73_m2} Normal >60 [facility] Comment on above: Result Comment: These [...] Performed By: #### C DP, CP #### [facility] [address] [place] [address] Manager Gallery: Osiel Sapp MD Glucose [Mass/Vol] 91 mg/dL Normal 70-99 [facility] Comment on above: Performed By: #### C DP, CP #### [facility] [address] [place] [address] Manager Gallery: Osiel Sapp MD Potassium [Moles/Vol] 3.7 mmol/L Normal 3.7-5.3 [facility] Comment on above: Performed By: #### C DP, CP #### [facility] [address] [place], [place] [phone] Manager Gallery: Osiel Sapp MD Protein [Mass/Vol] 7.2 g/dL Normal 6.4-8.3 [facility] Comment on above: Performed By: #### C DP, CP #### [facility] [address] [place], [place] [phone] Manager Gallery: Osiel Sapp MD Sodium [Moles/Vol] 131 mmol/L Low 135-144 [facility] Comment on above: Performed By: #### C DP, CP #### [facility] [address] [place], [place] [phone] Manager Gallery: Osiel Sapp MD Urea nitrogen [Mass/Vol] 11 mg/dL Normal 6-20 [facility] Comment on above: Performed By: #### C DP, CP #### [facility] [address] [place], [place] [phone] Manager Gallery: Osiel Sapp MD HCG, ,Urineon 07-26 Beta HCG ( test) Ql (U) Positive Abnormal NEG [facility] Comment on above: Result Comment: If H CG results do not concur with clinical observations, additional testing to confirm result is recommended. This test is not labeled for use as a tumor marker. Performed By: #### U A, [facility] UMICAO #### [facility] [address] [place], [place] [phone] Manager Gallery: Osiel Sapp MD HCG, Quanton 07-26-2022 HCG, Quant 5174 mIU/mL High <5 [facility] Comment on above: Result Comment: Non-preg premeno <=5 Postmeno <=8 Male <=3 If HCG results do not concur with clinical observations, additional testing to confirm results is recommended. Performed By: #### B HCG #### [facility] [address] [place], [place] [phone] Manager Gallery: Osiel Sapp MD Urinalysis, Routineon 2022 Bilirubin, SemiQt,Ur Negative Normal NEG [facility] Comment on above: Performed By: #### U A, CG, UMICAO #### [facility] [address] [place] [address] Manager Gallery: Osiel Sapp MD Blood, Urine Negative Normal NEG [facility] Comment on above: Performed By: #### U A, UHCG, UMICAO #### [facility] [address] [place], [place] [phone] Manager Gallery: Osiel Sapp MD Clarity (U) Clear Normal CLEAR [facility] Comment on above: Performed By: #### U A, CG, UMICAO #### [facility] [address] [place] [address] Manager Gallery: Osiel Sapp MD Color (U) Yellow Normal YEL [facility] Comment on above: Performed By: #### U A, UHCG, UMICAO #### [facility] [address] [facility] [place] [address] Manager Gallery: Osiel Sapp MD Comment Normal [facility] Comment on above: Performed By: #### U A, [facility], UM[facility] #### [facility] [address] [place] [address] Manager Gallery: Osiel Sapp MD Glucose Ql (U) Negative Normal NEG [facility] Comment on above: Performed By: #### U A, [facility], UM[facility] #### [facility] [address] [place] [address] Manager Gallery: Osiel Sapp MD Ketones Ql (U) TRACE Abnormal NEG [facility] Comment on above: Performed By: #### U A, [facility], UM[facility]O #### [facility] [address] [place] [address] Manager Gallery: Osiel Sapp MD Leukocyte esterase Test strip Ql (U) 1+ Abnormal NEG [facility] Comment on above: Performed By: #### U A, [facility], UM[facility] #### [facility] [address] [place] [address] Manager Gallery: Osiel Sapp MD Nitrite,Ur Negative Normal NEG [facility] Comment on above: Performed By: #### U A, CG, UMICAO #### [facility] [address] [place] [address] Manager Gallery: Osiel Sapp MD PH,Ur 5.0 Normal 5.0-8.0 [facility] Comment on above: Performed By: #### U A, [facility], UMICAO #### [facility] [address] [place] [address] Manager Gallery: Osiel Sapp MD Protein Ql (U) TRACE Abnormal NEG [facility] Comment on above: Performed By: #### U A, [facility], UMICAO #### [facility] [address] [place] [address] Manager Gallery: Osiel Sapp MD Spec. [place],Ur 1.025 Normal 1.005-1.030 [facility] Comment on above: Performed By: #### U Renee [facility], UMICAO #### [facility] [address] [place] [address] Manager Gallery: Osiel Sapp MD Urobilinogen,Ur Normal Normal NORM [facility] Comment on above: Performed By: #### U A [facility], UMICAO #### [facility] [address] [place] [address] Manager Gallery: Osiel Sapp MD Urinalysis,Microon 3 ----- Normal [facility] Comment on above: Performed By: #### U A, [facility], UMICAO #### [facility] [address] [place] [address] Manager Gallery: Osiel Sapp MD Bacteria RARE Abnormal NONE [facility] Comment on above: Performed By: #### U A, [facility], UMICAO #### [facility] [address] [place] [address] Manager Gallery: Osiel Sapp MD Urine RBC's 0 TO 2 Normal 0-2 [facility] Comment on above: Performed By: #### U A, UHCG, UMICAO #### [facility] [address] [place], [place] [phone] Manager Gallery: Osiel Sapp MD Urine WBC's 2 TO 5 Normal 0 [facility] Comment on above: Performed By: #### U A, UHCG, UMICAO #### [facility] [address] [place] [address] Manager Gallery: Osiel Sapp MD CT LUMBAR SPINE WO [...] examination of the lumbar spine. Interpreted by: Devan Miles DO Signed by: Devan Miles DO 07/14/22 Final result Normal [facility] Unremarkable CT examination of the lumbar spine. [facility] EXAMINATION:CT LUMBA R SPINE WO CONTRAST HISTORY:Reason for exam:->back pain with sciatica COMPARISON:None TECHNIQUE:Multiple thin section transaxial slices were acquired through the lumbar spine without contrast. Coronal and sagittal reconstructed images were reviewed. FINDINGS: There is normal alignment of the lumbar spine without spondylolisthesis. No acute compression fractures are noted. The disc spaces are well-maintained. Surrounding paraspinal soft tissues are grossly unremarkable. [facility] Devan Miles DO - 07/14/2022 EXAMINATION:CT LUMBAR SPINE [...] Unremarkable CT examination of the lumbar spine. [facility] [employer] Phone: CT LUMBAR SPINE WO CONTRASTO rdered By: Devan Miles on 07-14-2022 [facility] [employer] Work Phone: HCG, ,Urineon 07-14 Beta HCG ( test) Ql (U) Negative Normal NEG [facility] Comment on above: Performed By: #### U HCG ####[facility] [address] [place] [address] lab Director: Osiel Sapp MD CT LUMBAR SPINE WO CONTRASTo n 07-13-2022 Radiology Study observation (narrative) [facility] Phone: Urine Preg (Lab)on 3 Beta HCG ( test) Ql (U) Negative NEGATIVE [facility] [employer] COVID-19/INFLUENZA A,B MOLEC ULARon 05-09-2022 SARS-CoV-2 (COVID-19) Ab IA Ql INFLUENZA A (CEPHEID): Detected INFLUENZA B (CEPHEID): Not Detected SARS-COV-2 (CEPHEID): Not Detected This test was performed under the FDA's Emergency Use Authorization (EUA). Testing was performed using the Xpert?? Xpress SARS-CoV-2/Flu/RSV plus RT-PCR Cepheid assay on the GeneXpert Xpress System. This test has not been approved for use in asymptomatic patients and its performance in this patient population has not been evaluated. Negative results do not rule out the presence of SARS-CoV-2/COVID-19. Fact sheets for this EUA can be found at the following links: For Healthcare Providers: https://www.fda.gov/med ia/993274/download For Patients: https://www.fda.gov/med ia/236465/download [facility] Comment on above: Performed By: #### L [id number] #### [facility] [address], [place] [address] Roberto Cruz M.D. [id number] CORONAVIRUS 2018, SCREEN ASY MPTOMATICon 11-09-2021 SARS-CoV-2 (COVID-19) RNA MAYTE+probe Ql (Unsp spec) Canceled Normal [facility] Comment on above: Order Comment: TEST [...] patient management decisions. Fact sheet for providers: https://www.fda.gov/media/697830/download Fact sheet for patients: https://www.fda.gov/media/101087/download This test has received FDA Emergency Use Authorization (EUA) and has been verified by [facility] ([facility]). This test is only authorized for the duration of time that circumstances exist to justify the authorization of the emergency use of in vitro diagnostic tests for the detection of SARS-CoV-2 virus and/or diagnosis of COVID-19 infection under section 564(b)(1) of the Act, 21 U.S.C. 360bbb-3(b)(1), unless the authorization is terminated or revoked sooner. [facility] is certified under CLIA-88 as qualified to perform high complexity testing. Testing is performed in the [facility] laboratories located at [address] [place] [address]. Performed By: #### C OVSC #### [place] [address] CORONAVIRUS 2018, SCREEN ASY MPTOMATICon 10-11-2021 SARS-CoV-2 (COVID-19) RNA MAYTE+probe Ql (Unsp spec) Not detected Normal Not Detected [facility] Comment on above: Result Comment: . [...] patient management decisions. Fact sheet for providers: https://www.fda.gov/media/987699/download Fact sheet for patients: https://www.fda.gov/media/099834/download This test has received FDA Emergency Use Authorization (EUA) and has been verified by [facility] ([facility]). This test is only authorized for the duration of time that circumstances exist to justify the authorization of the emergency use of in vitro diagnostic tests for the detection of SARS-CoV-2 virus and/or diagnosis of COVID-19 infection under section 564(b)(1) of the Act, 21 U.S.C. 360bbb-3(b)(1), unless the authorization is terminated or revoked sooner. [facility] is certified under CLIA-88 as qualified to perform high complexity testing. Testing is performed in the [facility] laboratories located at [address] [place] [address]. Performed By: #### C OVSC #### [address] [place] [address] Covid 19 Resultson 2 SARS-CoV-2 (COVID-19) RNA [...] You may also be contacted by the [facility] [place] [facility] to see if any of your close [...] or Naproxen (Aleve) can also be used. Fiha-ypg-agaatbt cough and cold medicines can be used according to the instructions on the package. Some mujy-lpz-rrdqouw medicines also contain acetaminophen. Make sure you [...] water are not available, use alcohol-based hand intertype operator. Avoid touching your eyes, nose, and [...] 24 suzette (more content not included)... Normal [facility] CORONAVIRUS 2019, SCREEN ASY MPTOMATICon 10-10-2021 Lab Specimen Source Nasal, Nasopharyngeal Normal [facility] Comment on above: Performed By: #### C OVSC #### [facility] [address] [place] [address] Coronavirus 2019 RNA by PCR, Screening Asymptomticon 10-10-2021 Coronavirus 2019 RNA by PCR, Screening Asymptomtic Not detected Normal See Below [facility] [address] Work Phone: Comment on above: SOURCE: Nasal, [...] make patient management decisions.Fact sheet for providers: https://www.fda.gov/media/976386/downloadFact sheet for patients: https://www.fda.gov/media/114181/downloadThis test has received FDA Emergency Use Authorization (EUA) and has been verified by [facility] ([facility]). This test is only authorized for the duration of time that circumstances exist to justify the authorization of the emergency use of in vitro diagnostic tests for the detection of SARS-CoV-2 virus and/or diagnosis of COVID-19 infection under section 564(b)(1) of the Act, 21 U.S.C. 360bbb-3(b)(1), unless the authorization is terminated or revoked sooner. [facility] is certified under CLIA-88 as qualified to perform high complexity testing. Testing is performed in the [facility] laboratories located at [address] [place] [address]. CORONAVIRUS 2019, SCREEN ASY MPTOMATICon 10-08-2021 Lab Specimen Source Nasal, Nasopharyngeal Normal [facility] Comment on above: Order Comment: TEST CORONAVIRUS 2019, SCREEN ASYMPTOMATIC WAS CANCELLED, 11/09/2021 11:40 test not completed. Performed By: #### C OVSC #### [address] [place] [address] Laboratory - Chemistry and C hemistry - challengeon 09-26-2021 Albumin BCP dye [Mass/Vol] 3.2 g/dL below low threshold 3.4 - 5.0 [employer] Work Phone: ALP [Catalytic activity/Vol] 125 U/L above high threshold 33 - 110 [employer] Work Phone: ALT With P-5'-P [Catalytic activity/Vol] 7 U/L 7 - 45 [employer] Work Phone: Comment on above: Patients treated wit h Sulfasalazine may generate falsely decreased results for ALT. Anion gap [Moles/Vol] 14 mmol/L 10 - 20 [employer] Work Phone: AST With P-5'-P [Catalytic activity/Vol] 10 U/L 9 - 39 [employer] Work Phone: Bilirubin [Mass/Vol] 0.6 mg/dL 0.0 - 1.2 [employer] Work Phone: Calcium [Mass/Vol] 7.7 mg/dL below low threshold 8.6 - 10.3 [employer] Work Phone: Chloride [Moles/Vol] 107 mmol/L 98 - 107 [employer] Work Phone: CO2 [Moles/Vol] 18 mmol/L below low threshold 21 - 32 [employer] Work Phone: Creatinine [Mass/Vol] 0.44 mg/dL below low threshold See Below [employer] Work Phone: Comment on above: Reference Range: 0.5 0 - 1.05 Glucose [Mass/Vol] 117 mg/dL above high threshold 74 - 99 [employer] Work Phone: Potassium [Moles/Vol] 3.5 mmol/L 3.5 - 5.3 [employer] Work Phone: Protein [Mass/Vol] 6.0 g/dL below low threshold 6.4 - 8.2 [employer] Work Phone: [phone] Sodium [Moles/Vol] 135 mmol/L below low threshold 136 - 145 [employer] Work Phone: Urea nitrogen [Mass/Vol] 7 mg/dL 6 - 23 [employer] Work Phone: Laboratory - Hematology and Cell countson 09-26-2021 Erythrocyte distribution width (RBC) [Ratio] 14.2 % See Below [employer] Work Phone: Comment on above: Reference Range: 11. 5 - 14.5 Hematocrit (Bld) [Volume fraction] 33.5 % below low threshold See Below [employer] Work Phone: Comment on above: Reference Range: 36. 0 - 46.0 Hemoglobin (Bld) [Mass/Vol] 11.1 g/dL below low threshold See Below [employer] Work Phone: Comment on above: Reference Range: 12. 0 - 16.0 MCHC (RBC) [Mass/Vol] 33.2 g/dL See Below [employer] Work Phone: Comment on above: Reference Range: 32. 0 - 36.0 MCV (RBC) [Entitic vol] 92 fL 80 - 100 [employer] Work Phone: [phone] Platelets (Bld) [#/Vol] 233 10*3/uL 150 - 450 [employer] Work Phone: [phone] RBC (Bld) [#/Vol] 3.66 {x10E12/L} below low threshold See Below [employer] Work Phone: Comment on above: Reference Range: 4.0 0 - 5.20 WBC (Bld) [#/Vol] 12.0 10*3/uL above high threshold 4.4 - 11.3 [employer] Work Phone: No Panel Informationon 09-26 >90 >90 [employer] Work Phone: Comment on above: CALCULATIONS OF YOLANDA MATED GFR ARE PERFORMED USING THE 2020 CKD-EPI STUDY REFIT EQUATION WITHOUT THE RACE VARIABLE FOR THE IDMS-TRACEABLE CREATININE METHODS.https://jasn.asnjournals.org/content/early//A SN.2507608969 Total Protein, Urine Spoton 09-26-2021 Creatinine (U) [Mass/Vol] 86.0 mg/dL See Below [facility] Work Phone: Comment on above: Reference Range: 20. 0 - 320.0 Protein (U) [Mass/Vol] 19 mg/dL 5 - 24 [facility] Work Phone: Protein/Creatinine (U) [Ratio] 0.22 {mg/mg_Creat} above high threshold See Below [employer] Work Phone: Comment on above: Reference Range: 0.0 0 - 0.17 Uric Acid, Serumon 2 Urate [Mass/Vol] 4.1 mg/dL 2.3 - 6.7 [facility] Work Phone: Comment on above: Venipuncture immedia tely after or during the administration of Metamizole may lead to falsely low results. Testing should be performed immediately prior to Metamizole dosing. GROUP B STREP SCREENon 09-17 GROUP B STREP SCREEN PATIENT: ARSALAN ESCOBAR IN L LOCATION: [facility] BILL#: [id number] : 89 AGE: SEX: F ORDERED BY: ANDRY RUEDA SOURCE: VAGINAL COLLECTED: 09/17/21 11:29 ANTIBIOTICS AT LINDA.: RECEIVED : 09/17/21 22:38 SITE: VAGINAL R E S U L T S GROUP B STREP SCREEN FINAL 09/19/21 12:47 NEGATIVE FOR GROUP B BETA STREP. Normal [facility] Comment on above: Performed By: #### G BSCR #### [facility] [address] [place] [address] Laboratory - Microbiology an d Antimicrobial susceptibilityon 09-17-2021 Bacteria identified Aer cx Nom (Genital specimen) [facility] [employer] Work Phone: No Panel Informationon 09-17 Normal [facility] [employer] Work Phone: IO Wet Mounton 08-27-2021 IO Wet Mount Negative [facility] [employer] Work Phone: No Panel Informationon 08-05 Normal [facility] [employer] Work Phone: Glucose, 1 Hour Screen, Preg nancyon 07-14-2021 Glucose 1 Hr post 50 g glucose PO [Mass/Vol] 132 mg/dL <135 [place] [address] [employer] Work Phone: Comment on above: Diagnostic value wit h glucose loading dose of 50 g. Reference values from [place] [employer]. Diabetes Care 2015;38(Suppl.1):S8-S16 Laboratory - Blood bankon Blood group antibody screen Ql Canceled [facility] sm[facility] Work Phone: Blood group antibody screen Ql Negative [facility] [employer] Work Phone: Laboratory - Hematology and Cell countson 07-14-2021 Erythrocyte distribution width (RBC) [Ratio] 13.9 % See Below [facility] [employer] Work Phone: Comment on above: Reference Range: 11. 5 - 14.5 Hematocrit (Bld) [Volume fraction] 35.7 % below low threshold See Below [facility] [employer] Work Phone: Comment on above: Reference Range: 36. 0 - 46.0 Hemoglobin (Bld) [Mass/Vol] 12.3 g/dL See Below [facility] [employer] Work Phone: Comment on above: Reference Range: 12. 0 - 16.0 MCHC (RBC) [Mass/Vol] 34.5 g/dL See Below [facility] Work Phone: Comment on above: Reference Range: 32. 0 - 36.0 MCV (RBC) [Entitic vol] 93 fL 80 - 100 [employer] Work Phone: Platelets (Bld) [#/Vol] 260 10*3/uL 150 - 450 [employer] Work Phone: RBC (Bld) [#/Vol] 3.83 {x10E12/L} below low threshold See Below [employer] Work Phone: Comment on above: Reference Range: 4.0 0 - 5.20 WBC (Bld) [#/Vol] 10.7 10*3/uL 4.4 - 11.3 [facility] Work Phone: No Panel Informationon 07-14 NONE [employer] Work Phone: Rhogamon 07-14-2021 Rhogam ORDER RECD [employer] Work Phone: Rhogam Canceled [employer] Work Phone: RAPID TOX SCREEN WITH RELEX TO DRUGMCon 06-23-2021 Amphetamine (U) [Mass/Vol] Negative NEGATIVE NG/ML [facility] Comment on above: <500 ng/ml CUTOFF Barbiturates Screen Ql (U) Negative NEGATIVE NG/ML [facility] Comment on above: <200 ng/ml CUTOFF Benzodiazepines Ql (U) Negative NEGAT JESUS NG/ML [facility] Comment on above: <150 ng/ml CUTOFF Benzoylecgonine Ql (U) Negative NEGAT JESUS NG/ML [facility] Comment on above: <150 ng/ml CUTOFF Buprenorphine Ql (U) Negative NEGATIV E NG/ML [facility] Comment on above: <10 ng/ml CUTOFF Testing performed at [place] [address] Cannabinoids Screen Ql (U) Negative NEGATIVE NG/ML [facility] Comment on above: <50 ng/ml CUTOFF Methadone Screen Ql (U) Negative NEGATIVE NG/ML [facility] Comment on above: <200 ng/ml CUTOFF Methamphetamine (U) [Mass/Vol] Negative NEGATIVE NG/ML [facility] Comment on above: <500 ng/ml CUTOFF Opiates Screen Ql (U) Negative NEGATI VE NG/ML [facility] Comment on above: <100 ng/ml CUTOFF oxyCODONE Ql (U) Negative NEGATIVE NG/ML [facility] Comment on above: <100 ng/ml CUTOFF Phencyclidine Screen method >25 ng/mL Ql (U) Negative NEGATIVE NG/ML [facility] Comment on above: <25 ng/ml CUTOFF Propoxyphene+Norpropox yphene Screen Ql (U) Negative NEGATIVE NG/ML [facility] Comment on above: <300 ng/ml CUTOFF Tricyclic antidepressants Screen Ql (U) Negative NEGATIVE NG/ML [facility] Comment on above: <300 ng/ml CUTOFF [facility] URINALYSIS, MACROon 06-23-19 22 Bilirubin Ql (U) Negative NEGATIVE [facility] Clarity (U) CLEAR CLEAR [facility] Color (U) YELLOW YELLOW [facility] Glucose Test strip (U) [Mass/Vol] Negative NEGATIVE mg/dl [facility] Hemoglobin Ql (U) Negative NEGATIVE [facility] Ketones (U) [Mass/Vol] Negative NEGAT JESUS mg/dl [facility] [place] [facility] Leukocyte esterase Test strip Ql (U) Negative NEGATIVE [facility] Comment on above: Testing performed at [place], [place] [address] Nitrite Ql (U) Negative NEGATIVE [facility] pH (U) 6.0 [pH] [facility] Protein Ql (U) Negative NEGATIVE mg/dl [facility] Specific gravity (U) [Rel density] 1.025 [facility] Urobilinogen (U) [Mass/Vol] 0.2 mg/dL [facility] HOLTER MONITOR- EXTENDED (3 TO 7 [...] AV block No significant bradycardia episodes Normal [facility] Ferritinon 05-17-2021 Ferritin [Mass/Vol] 18 ng/mL 13 - 150 ng/mL [facility] Iron and Iron binding capaci ty panelon 05-17-2021 Iron [Mass/Vol] 123 [facility] [Mass/Vol] 368 [facility] Iron saturation [Mass fraction] 33 % 20 - 50 % [facility] No Panel Informationon 05-17 Interpretation and review of laboratory results Normal [facility] CTPCRon 02-14-2021 C. trachomatis Interp Normal See CT Interp N [facility] ([place]) Comment on above: Result Comment: C. t rachomatis DNA not detected. Specimen is presumptive negative for C. trachomatis. A negative result does not preclude C. trachomatis infection because results depend on adequate specimen collection, absence of inhibitors, and sufficient DNA to be detected. See CT Interp N Performed By: #### C TPCR, NGPCR1 #### [address] [address] C.trachomatis PCR Negative Normal Negative [facility] ([place]) Comment on above: Result Comment: Dias sport tube received with two swabs. Review collection procedure. Inappropriate collection may cause aberrant results. Transport tube received with two swabs. Review collection procedure. Inappropriate collection may cause aberrant results. Molecular (PCR) assay performed on the Kel[employer]ma 4800 system. Performed By: #### C TPCR, NGPCR1 #### [address] [address] Chlam Source Vaginal Normal [facility] ([place]) Comment on above: Performed By: #### C TPCR, NGPCR1 #### [address] [address] [id number] 02-14-2021 GC PCR Source Vaginal Normal [facility] ([place] Comment on above: Performed By: #### U A, PREGU #### [address] [address] N. gonorrhoeae (PCR) Negative Normal Negative [facility] ([place]) Comment on above: Result Comment: Dias sport tube received with two swabs. Review collection procedure. Inappropriate collection may cause aberrant results. Transport tube received with two swabs. Review collection procedure. Inappropriate collection may cause aberrant results. Molecular (PCR) assay performed on the [employer] Irma 4800 System. Performed By: #### U A, PREGU #### [address] [address] N. gonorrhoeae Interp Normal See NG Interp N [facility] ([place]) Comment on above: Result Comment: N. g onorrhoeae DNA not detected. Specimen is presumptive negative for N. gonorrhoeae. A negative result does not preclude Neisseria gonorrhoeae infection because results depend on adequate specimen collection, absence of inhibitors, and sufficient DNA to be detected. See NG Interp N Performed By: #### U A, PREGU #### [address] [address] .Auto Diffon 02-12-2021 Basophil, Absolute 0.00 10 3/mcL Normal 0.00-0.19 [facility] ([place]) Comment on above: Performed By: #### B MP, GFR #### [place] [address] #### CBC, ADIFF, ANEU, HCGQ, ABOG #### [address] [address] Basophils/100 WBC (Bld) 0.4 % Normal 0.0-2.5 [facility] ([place]) Comment on above: Performed By: #### B MP, GFR #### [place] [address] #### CBC, ADIFF, ANEU, HCGQ, ABOG #### [address] [address] Eosinophil, Absolute 0.00 10 3/mcL Normal 0.00-0.40 A [facility] ([place]) Comment on above: Performed By: #### B MP, GFR #### [place] [address] #### CBC, ADIFF, ANEU, HCGQ, ABOG #### [address] [address] Eosinophils/100 WBC (Bld) 0.1 % Normal 0.0-7.0 [facility] ([place] Comment on above: Performed By: #### B MP, GFR #### [place] [address] #### CBC, ADIFF, ANEU, HCGQ, ABOG #### [address] [address] Lymphocyte, Absolute 1.40 10 3/mcL Normal 0.77-3.85 A [facility] ([place]) Comment on above: Performed By: #### B MP, GFR #### [place] [address] #### CBC, ADIFF, ANEU, HCGQ, ABOG #### [address] [address] Lymphocytes/100 WBC (Bld) 29.2 % Normal 10.0-50.0 [facility] ([place]) Comment on above: Performed By: #### B MP, GFR #### [place] [address] #### CBC, ADIFF, ANEU, HCGQ, ABOG #### [address] [address] Monocyte, Absolute 0.30 10 3/mcL Normal 0.15-1.00 [facility] ([place] Comment on above: Performed By: #### B MP, GFR #### [place] [address] #### CBC, ADIFF, ANEU, HCGQ, ABOG #### [address] [address] Monocytes/100 WBC (Bld) 7.2 % Normal 1.7-13.0 [facility] ([place]) Comment on above: Performed By: #### B MP, GFR #### [place] [address] #### CBC, ADIFF, ANEU, HCGQ, ABOG #### [address] [address] Neutrophils/100 WBC (Bld) 63.1 % Normal 37.0-80.0 [facility] ([place] Comment on above: Performed By: #### B MP, GFR #### [place] [address] #### CBC, ADIFF, ANEU, HCGQ, ABOG #### [address] [address] .GFRon 02-12-2021 GFR 96 ml/min/1.73sqm Normal [facility] ([place] Comment on above: Result Comment: GFR Population [...] Performed By: #### B MP, GFR #### [place] [address] #### CBC, ADIFF, ANEU, HCGQ, ABOG #### [address] [address] GFR Non- 80 ml/min/1.73sqm Normal [facility] ([place] Comment on above: Result Comment: GFR Population [...] Performed By: #### B MP, GFR #### [place] [address] #### CBC, ADIFF, ANEU, HCGQ, ABOG #### [address] [address] .NEUABSon 02-12-2021 Neutrophil, Absolute 3.00 10 3/mcL Normal 2.85-6.16 A [facility] ([place]) Comment on above: Performed By: #### B MP, GFR #### [place] [address] #### CBC, ADIFF, ANEU, HCGQ, ABOG #### [address] [address] BMPon 02-12-2021 BUN/Creatinine Ratio 14 ratio Normal 7-27 [facility] ([place] Comment on above: Performed By: #### B MP, GFR #### [place] [address] #### CBC, ADIFF, ANEU, HCGQ, ABOG #### [address] [address] Calcium [Mass/Vol] 8.4 mg/dL Normal 8.4-10.2 [facility] ([place] Comment on above: Performed By: #### B MP, GFR #### [place] [address] #### CBC, ADIFF, ANEU, HCGQ, ABOG #### [address] [address] Chloride [Moles/Vol] 104 mmol/L Normal 98-107 [facility] ([place] Comment on above: Performed By: #### B MP, GFR #### [place] [address] #### CBC, ADIFF, ANEU, HCGQ, ABOG #### [address] [address] CO2 [Moles/Vol] 26 mmol/L Normal 22-29 [facility] ([place] Comment on above: Performed By: #### B MP, GFR #### [place] [address] #### CBC, ADIFF, ANEU, HCGQ, ABOG #### [address] [address] Creatinine [Mass/Vol] 0.84 mg/dL Normal 0.55-1.02 [facility] ([place] Comment on above: Performed By: #### B MP, GFR #### [place] [address] #### CBC, ADIFF, ANEU, HCGQ, ABOG #### [address] [address] Electrolyte Balance 11.0 mEq/L Normal [facility] ([place]) Comment on above: Performed By: #### B MP, GFR #### [place] [address] #### CBC, ADIFF, ANEU, HCGQ, ABOG #### [address] [address] Glucose [Mass/Vol] 151 mg/dL High 70-105 [facility] ([place] Comment on above: Performed By: #### B MP, GFR #### [place] [address] #### CBC, ADIFF, ANEU, HCGQ, ABOG #### [address] [address] Potassium [Moles/Vol] 3.7 mmol/L Normal 3.5-5.1 [facility] ([place] Comment on above: Performed By: #### B MP, GFR #### [place] [address] #### CBC, ADIFF, ANEU, HCGQ, ABOG #### [address] [address] Sodium [Moles/Vol] 141 mmol/L Normal 136-145 [facility] ([place] Comment on above: Performed By: #### B MP, GFR #### [place] [address] #### CBC, ADIFF, ANEU, HCGQ, ABOG #### [address] [address] Urea nitrogen [Mass/Vol] 12 mg/dL Normal 7-18 [facility] ([place] Comment on above: Performed By: #### B MP, GFR #### [place] [address] #### CBC, ADIFF, ANEU, HCGQ, ABOG #### [place] [id number] CBCon 02-12-2021 Erythrocyte distribution width (RBC) [Ratio] 13.1 % Normal 11.5-14.5 [facility] ([place] Comment on above: Performed By: #### B MP, GFR #### [place] [address] #### CBC, ADIFF, ANEU, HCGQ, ABOG #### [place] [id number] Hematocrit (Bld) [Volume fraction] 42.0 % Normal 37.0-47.0 [facility] ([place] Comment on above: Performed By: #### B MP, GFR #### [place] [address] #### CBC, ADIFF, ANEU, HCGQ, ABOG #### [address] [address] Hgb 14.3 G/dL Normal 12.0-16.0 [facility] ([place] Comment on above: Performed By: #### B MP, GFR #### [place] [address] #### CBC, ADIFF, ANEU, HCGQ, ABOG #### [address] [address] MCH (RBC) [Entitic mass] 31.5 pg High 27.0-31.2 [facility] ([place]) Comment on above: Performed By: #### Adria MP, GFR #### [place] [address] #### CBC, ADIFF, ANEU, HCGQ, ABOG #### [address] [address] MCHC 34.1 G/dL Normal 33.0-37.0 [facility] ([place] Comment on above: Performed By: #### Adria MP, GFR #### [place] [address] #### CBC, ADIFF, ANEU, HCGQ, ABOG #### [address] [address] MCV (RBC) [Entitic vol] 92.3 fL Normal 80.0-94.0 [facility] ([place] Comment on above: Performed By: #### Adria MP, GFR #### [place] [address] #### CBC, ADIFF, ANEU, HCGQ, ABOG #### [address] [address] Platelet 199 10 3/mcL Normal 130-400 [facility] ([place]) Comment on above: Performed By: #### Adria MP, GFR #### [place] [address] #### CBC, ADIFF, ANEU, HCGQ, ABOG #### [address] [address] Platelet mean volume (Bld) [Entitic vol] 8.6 fL Normal 7.4-10.4 [facility] ([place]) Comment on above: Performed By: #### Adria MP, GFR #### [place] [address] #### CBC, ADIFF, ANEU, HCGQ, ABOG #### [address] [address] RBC 4.55 10 6/mcL Normal 4.20-5.40 [facility] ([place]) Comment on above: Performed By: #### B MP, GFR #### [address] [address] #### CBC, ADIFF, ANEU, HCGQ, ABOG #### [place] [address] [place], [place] [address] WBC 4.80 10 3/mcL Normal 4.60-10.80 [facility] ([place]) Comment on above: Performed By: #### B MP, GFR #### [address] [address] #### CBC, ADIFF, ANEU, HCGQ, ABOG #### [address] [address] Gel ABOon 02-12-2021 ABO/Rh Interp Negative Invalid Interpretation Code [facility] ([place] Comment on above: Performed By: #### B MP, GFR #### [address] [address] #### CBC, ADIFF, ANEU, HCGQ, ABOG #### [address] [address] HCGQon 02-12-2021 hCG, quantitative 5108.5 mIU/mL Normal [facility] ([place]) Comment on above: Result Comment: HCG Quantitative [...] Performed By: #### B MP, GFR #### [facility] [address] [place] [address] #### CBC, ADIFF, ANEU, HCGQ, ABOG #### [address] [address] PREGUon 02-12-2021 HCG ( test) Ql (U) Positive Normal [facility] ([place]) Comment on above: Performed By: #### U A, PREGU #### [place] [id number] test (u) int Detected Invalid Interpretation Code [facility] ([place]) Comment on above: Performed By: #### U A, PREGU #### [address] [address] UAon 02-12-2021 Color (U) Yellow Normal [facility] ([place]) Comment on above: Performed By: #### U A, PREGU #### [address] [address] Glucose (U) [Mass/Vol] Negative Normal Negative On license of [facility] ([place]) Comment on above: Performed By: #### U A, PREGU #### [address] [address] Ketones Ql (U) 80 mg/dL Abnormal Negative [facility] ([place] Comment on above: Performed By: #### U A, PREGU #### [address] [address] UA Appear Clear Normal Clear [facility] ([place]) Comment on above: Performed By: #### U A, PREGU #### [address] [address] UA Bili Small Abnormal Negative [facility] ([place] Comment on above: Performed By: #### U A, PREGU #### [address] [address] UA Blood Negative Normal Negative [facility] ([place] Comment on above: Performed By: #### U A, PREGU #### [address] [address] UA Leuk Est Negative Normal Negative [facility] ([place] Comment on above: Performed By: #### U A, PREGU #### [address] [address] UA Nitrite Negative Normal Negative [facility] ([place] Comment on above: Performed By: #### U A, PREGU #### [address] [address] UA pH 6.0 Normal 5.0 - 8.0 [facility] ([place] Comment on above: Performed By: #### U A, PREGU #### [place] [address] UA Protein Trace Normal Negative [facility] ([place] Comment on above: Performed By: #### U A, PREGU #### [place] [address] UA Spec Grav >=1.030 Abnormal 1.015-1.025 [facility] ([place] Comment on above: Performed By: #### U A, PREGU #### [address] [address] UA Specimen Type Clean Catch Normal [facility] ([place] Comment on above: Performed By: #### U A, PREGU #### [address] [address] UA Urobilinogen 0.2 E.U./dL Normal 0.2-1.0 [facility] ([place] Comment on above: Performed By: #### U A, PREGU #### [address] [address] CBC and Differentialon 10-17 Abs Baso 0.04 k/uL Normal <0.11 [facility] Comment on above: Performed By: #### C BCDIF, BETAMM, CMP, LIPA #### [facility] [address] [facility] [phone] Abs Brown 0.64 k/uL Normal <0.87 [facility] Comment on above: Performed By: #### C BCDIF, BETAMM, CMP, LIPA #### [facility] [address] [facility] [phone] Abs Neut 4.48 k/uL Normal 1.45-7.50 [facility] Comment on above: Performed By: #### C BCDIF, BETAMM, CMP, LIPA #### [facility] [address] [facility] [phone] Basophils/100 WBC (Bld) 0.5 % Normal [facility] Comment on above: Performed By: #### C BCDIF, BETAMM, CMP, LIPA #### [facility] [address] [facility] [phone] Eosinophils #/vol (Bld) 0.26 10*3/uL Normal <0.46 [facility] Comment on above: Performed By: #### C BCDIF, BETAMM, CMP, LIPA #### [facility] [address] [place] [phone] Eosinophils/100 WBC (Bld) 3.4 % Normal [facility] Comment on above: Performed By: #### C BCDIF, BETAMM, CMP, LIPA #### [facility] [address] [facility] [phone] Erythrocyte distribution width Ratio (RBC) 13.1 % Normal 11.5-15.0 [facility] Comment on above: Performed By: #### C BCDIF, BETAMM, CMP, LIPA #### [facility] [address] [facility] [phone] Hematocrit Volume Fraction (Bld) 44.4 % Normal 36.0-46.0 [facility] Comment on above: Performed By: #### C BCDIF, BETAMM, CMP, LIPA #### [facility] [address] [place] [address] Hemoglobin mass conc (Bld) 14.8 g/dL Normal 11.5-15.5 [facility] Comment on above: Performed By: #### C BCDIF, BETAMM, CMP, LIPA #### [facility] [address] [facility] [phone] Lymphocytes #/vol (Bld) 2.28 10*3/uL Normal 1.00-4.00 [facility] Comment on above: Performed By: #### C BCDIF, BETAMM, CMP, LIPA #### [facility] [address] Lymphocytes/100 WBC (Bld) 29.6 % Normal [facility] Comment on above: Performed By: #### C BCDIF, BETAMM, CMP, LIPA #### [facility] [address] [place] [address] MCH Entitic mass (RBC) 30.4 pG Normal 26.0-34.0 [facility] Comment on above: Performed By: #### C BCDIF, BETAMM, CMP, LIPA #### [facility] [address] [place] [address] MCHC mass conc (RBC) 33.3 g/dL Normal 30.5-36.0 [facility] [place] [facility] Comment on above: Performed By: #### C BCDIF, BETAMM, CMP, LIPA #### [facility] [address] [place] [address] MCV Entitic volume (RBC) 91.2 fL Normal 80.0-100.0 [facility] Comment on above: Performed By: #### C BCDIF, BETAMM, CMP, LIPA #### [facility] [address] [place] [address] Monocytes/100 WBC (Bld) 8.3 % Normal [facility] Comment on above: Performed By: #### C BCDIF, BETAMM, CMP, LIPA #### [facility] [address] Neutrophils/100 WBC (Bld) 58.2 % Normal [facility] Comment on above: Performed By: #### C BCDIF, BETAMM, CMP, LIPA #### [facility] [address] [place] [address] Platelet mean volume Entitic volume (Bld) 10.7 fL Normal 9.0-12.7 [facility] Comment on above: Performed By: #### C BCDIF, BETAMM, CMP, LIPA #### [facility] [address] Platelets #/vol (Bld) 283 10*3/uL Normal 150-400 [facility] Comment on above: Performed By: #### C BCDIF, BETAMM, CMP, LIPA #### [facility] [address] [place] [phone] RBC #/vol (Bld) 4.87 10*6/uL Normal 3.90-5.20 [facility] Comment on above: Performed By: #### C BCDIF, BETAMM, CMP, LIPA #### [facility] [address] [place] [phone] WBC #/vol (Bld) 7.70 10*3/uL Normal 3.70-11.00 [facility] Comment on above: Performed By: #### C BCDIF, BETAMM, CMP, LIPA #### [facility] [address] [place] [phone] CT ABD/PEL W IVCONon 05-15-[address] ABD/PEL W IVCON * * *Final Report* * * DATE OF EXAM: Oct 17 2018 6:20PM [facility] [place] [...] or pelvis. 2. Nonobstructing renal calculi bilaterally. [employer] M[employer] Developer: PSCB Transcribe Date/Time: Oct 17 2018 6:22P Dictated by : AG ALLAN MD This examination was interpreted and the report reviewed and electronically signed by: AG ALLAN MD on Oct 17 2018 6:35PM EST [id number] Normal [facility] Comp Metabolic Panelon 10-17 Albumin mass conc 4.0 g/dL Normal 3.9-4.9 [facility] Comment on above: Performed By: #### C BCDIF, BETAMM, CMP, LIPA #### [facility] [address] [place] [address] ALP enzyme act/vol 66 U/L Normal 34-123 [facility] Comment on above: Performed By: #### C BCDIF, BETAMM, CMP, LIPA #### [facility] [address] [place] [address] ALT enzyme act/vol 11 U/L Normal 7-38 [facility] Comment on above: Performed By: #### C BCDIF, BETAMM, CMP, LIPA #### [facility] [address] [place] [address] Anion gap molar conc 10 mmol/L Normal 9-18 [facility] [place] [facility] Comment on above: Performed By: #### C BCDIF, BETAMM, CMP, LIPA #### [facility] [address] [place] [address] AST enzyme act/vol 14 U/L Normal 13-35 [facility] Comment on above: Performed By: #### C BCDIF, BETAMM, CMP, LIPA #### [facility] [address] [place] [address] Bilirubin mass conc 0.5 mg/dL Normal 0.2-1.3 [facility] Comment on above: Performed By: #### C BCDIF, BETAMM, CMP, LIPA #### [facility] [address] [place] [address] Calcium mass conc 8.8 mg/dL Normal 8.5-10.2 [facility] Comment on above: Performed By: #### C BCDIF, BETAMM, CMP, LIPA #### [facility] [address] [place] [address] Chloride molar conc 104 mmol/L Normal 97-105 [facility] Comment on above: Performed By: #### C BCDIF, BETAMM, CMP, LIPA #### [facility] [address] [place] [address] CO2 molar conc 22 mmol/L Normal 22-30 [facility] Comment on above: Performed By: #### C BCDIF, BETAMM, CMP, LIPA #### [facility] [address] [place] [address] Creatinine mass conc 0.83 mg/dL Normal 0.58-0.96 [facility] Comment on above: Performed By: #### C BCDIF, BETAMM, CMP, LIPA #### [facility] [address] [address] eGFR- Amer. >60 Normal [facility] Comment on above: Performed By: #### C BCDIF, BETAMM, CMP, LIPA #### [facility] [address] [place] [address] GFR/1.73 sq M predicted among non-blacks MDRD vol rate/area (S/P/Bld) mL/min/{1.73_m2} Normal [facility] Comment on above: Result Comment: eGFR (Estimated [...] #### C BCDIF, BETAMM, CMP, LIPA #### [facility] [address] [place] [address] Glucose mass conc 99 mg/dL Normal 74-99 [facility] Comment on above: Result Comment: The [place] [employer] (ADA) provides guidance for cutoff [...] Standards of Medical Care in Diabetes 2016, [place] [employer]. Diabetes Care. 2016.39(Suppl 1). Performed By: #### C BCDIF, BETAMM, CMP, LIPA #### [facility] [address] [place] [address] Potassium molar conc 3.9 mmol/L Normal 3.7-5.1 [facility] Comment on above: Performed By: #### C BCDIF, BETAMM, CMP, LIPA #### [facility] [address] [place] [address] Protein mass conc 7.5 g/dL Normal 6.3-8.0 [facility] Comment on above: Performed By: #### C BCDIF, BETAMM, CMP, LIPA #### [facility] [address] [place] [address] Sodium molar conc 136 mmol/L Normal 136-144 [facility] Comment on above: Performed By: #### C BCDIF, BETAMM, CMP, LIPA #### [facility] [address] [place] [address] Urea nitrogen mass conc 10 mg/dL Normal 7-21 [facility] Comment on above: Performed By: #### C BCDIF, BETAMM, CMP, LIPA #### [facility] [address] [place] [address] ED NOTEon 10-17-2018 ED NOTE HNO ID: [id number] Author: Elba RecinosRn) MICHAEL Ngueyn Service: ? Author Type: Registered Nurse Type: ED Notes Filed: 10/17/2018 7:10 PM Note Text: Pt was ambulatory with her discharge [facility] ED NOTE HNO ID: [id number] Author: Elba RecinosRn) MICHAEL Nguyen Service: ? Author Type: Registered Nurse Type: ED Notes Filed: 10/17/2018 7:08 PM Note Text: Pt was discharged home and will follow up with her family medical dr as per needed [facility] ED NOTE HNO ID: [id number] Author: Elba RecinosRn) MICHALE Nguyen Service: ? Author Type: Registered Nurse Type: ED Notes Filed: 10/17/2018 7:00 PM Note Text: viktor harris has rounded [facility] ED NOTE HNO ID: [id number] Author: Elba RecinosRn) MICHAEL Nguyen Service: ? Author Type: Registered Nurse Type: ED Notes Filed: 10/17/2018 5:56 PM Note Text: Pt report was received Pt is in a position of comfort [facility] ED NOTE HNO ID: [id number] Author: Charleen RecinosRn) MICHAEL Clifton Service: ? [...] weight loss over the last two months [facility] ED PROV NOTEon 10-17-2018 Protein mass conc HNO ID: [id number] Author: Viktor Smith (Pa) Service: Emergency Medicine Author Type: Physician Billiard Table Assembler Type: ED Provider Notes Filed: 10/17/2018 6:56 [...] Laterality Date - COLONOSCOP W/ OR W/O [facility] SPEC 11/21/2013 Colonoscopy AND EGD - COLONOSCOP W/ OR W/O [facility] SPEC 07/20/2017 Colonoscopy - EGD W/O OR W/BRUSH/WASH 07/20/2017 EGD - EGD W/O OR W/BRUSH/WASH 08/08/2018 EGD - LAPAROSCOPIC CHOLEYCYSTECTOMY 09/14/2009 - LEEP PROCEDURE (SATURATOR TENDER DEPT)_*[place] 09/09/2015 - SVT ABLATION 05/2015 procedure [...] or pelvis. 2. Nonobstructing renal calculi bilaterally. 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 This note was partially generated using [employer] voice recognition system, and there may be some incorrect words, spellings, and punctuation that were not noted in checking the note before saving SIGNATURE: Viktor Sulovari, PA-C Viktor (Pa) Sulovari 10/17/18 1856 Normal [facility] Lipaseon 10-17-2018 Lipase enzyme act/vol 35 U/L Normal 16 [facility] Comment on above: Performed By: #### C BCDIF, BETAMM, CMP, LIPA ####[facility] [address] [address] Serum Beta HCG East//BASHIR/MT D/SL/LOon 10-17-2018 HCG.beta subunit Qn Negative Normal Negative [facility] Comment on above: Result Comment: Fals e positives and false negatives are rare but have been described. Clinical correlation of the findings is recommended. Performed By: #### C BCDIF, BETAMM, CMP, LIPA #### [facility] [address] [phone] Urinalysison 10-17-2018 Bilirubin, Urine Negative Normal Negative [facility] Comment on above: Performed By: #### U A ####[facility] [address] [address] Clarity Nom (U) Clear Normal Clear [facility] Comment on above: Performed By: #### U A ####[facility] [address] [place] [address] Color Nom (U) Yellow Normal Yellow [facility] Comment on above: Performed By: #### U A ####[facility] [address] [place] [address] Glucose Ql (U) Negative Normal Negative [facility] Comment on above: Performed By: #### U A ####[facility] [address] [address] Hemoglobin/Blood,Ur Negative Normal Negative [facility] Comment on above: Performed By: #### U A ####[facility] [address] [address] Ketones Ql (U) Negative Normal Negative [facility] Comment on above: Performed By: #### U A ####[facility] [address] [address] Leukest Negative Normal Negative [facility] Comment on above: Performed By: #### U A ####[facility] [address] [address] Nitrite Ql (U) Negative Normal Negative [facility] Comment on above: Performed By: #### U A ####[facility] [address] [place] [address] pH (Bld) 6.5 Normal 5.0-8.0 [facility] Comment on above: Performed By: #### U A ####[facility] [address] [address] Protein mass conc (U) Negative Normal Negative [facility] Comment on above: Performed By: #### U A ####[facility] [address] [place] [address] Specific [place], Ur 1.015 Normal 1.001-1.029 [facility] Comment on above: Performed By: #### U A ####[facility] [address] [place] [address] Urobilinogen Qn (U) 0.2 Normal 0.2-1.0 [facility] Comment on above: Performed By: #### U A ####[facility] [address] [place] [address] Basic Metabolic Panelon 09-03 Calcium mass conc 9.5 mg/dL Normal 8.4-10.4 [facility] Comment on above: Performed By: #### H ADAMS BMP3 #### [facility] [address] [place] [address] Glucose mass conc 92 mg/dL Normal 70-100 [facility] Comment on above: Performed By: #### H ADAMS BMP3 #### [facility] [address] [place] [address] Urea nitrogen mass conc 13 mg/dL Normal 7-20 [facility] Comment on above: Performed By: #### H ADAMS BMP3 #### [facility] [address] [place] [address] Anion gap molar conc 8 Normal [facility] Comment on above: Performed By: #### H ADAMS BMP3 #### [facility] [address] [place] [address] CO2 molar conc 25 mmol/L Normal 22-30 [facility] Comment on above: Performed By: #### H EMDF, BMP3 #### [facility] [address] [place] [address] Creatinine mass conc 0.74 mg/dL Normal 0.52-1.25 [facility] Comment on above: Performed By: #### H EMDF, BMP3 #### [facility] [address] [place] [address] GFR/1.73 sq M predicted among blacks MDRD vol rate/area (S/P/Bld) mL/min/{1.73_m2} Normal >60 [facility] Comment on above: Performed By: #### H EMDF, BMP3 #### [facility] [address] [place] [address] GFR/1.73 sq M predicted among non-blacks MDRD vol rate/area (S/P/Bld) mL/min/{1.73_m2} Normal >60 [facility] Comment on above: Result Comment: Sour ce- MDRD equation with creatinine calibration to IDMS(NKDEP) eGFR not recommended for drug dose adjustment Performed By: #### H EMDF, BMP3 #### [facility] [address] [place] [address] Potassium molar conc 3.6 mmol/L Normal 3.5-5.1 [facility] Comment on above: Performed By: #### H EMDF, BMP3 #### [facility] [address] [place] [address] Chloride molar conc 106 mmol/L Normal 98-107 [facility] Comment on above: Performed By: #### H EMDF, BMP3 #### [facility] [address] [place] [address] Sodium molar conc 139 mmol/L Normal 135-145 [facility] Comment on above: Performed By: #### H EMDF, BMP3 #### [facility] [address] [place] [address] HCG,Urine Qualon 09-18-2018 HCG.beta subunit ( test) Ql (U) Negative Normal Negative [facility] Comment on above: Result Comment: Preg fallon is the most common reason for HCG in urine, although choriocarcinoma, hydatidiform mole, and certain nontropho- blastic malignancies also result in detectable urinary HCG levels. Sensitivity = 20mIU/mL. Performed By: #### H CGUR, UAMAC, UAMIC #### [facility] [address] [place] [address] Hemogram w/ Autodiffon 09-18 Abs Baso Cnt 0.0 10*3/uL Normal 0.0-0.2 [facility] Comment on above: Performed By: #### H EMDF, BMP3 #### [facility] [address] [place] [address] Abs Neutrophile Cnt 4.9 10*3/uL Normal 1.8-7.0 [facility] Comment on above: Performed By: #### H EMDF, BMP3 #### [facility] [address] [place] [address] Basophils/100 WBC (Bld) 0.6 % Normal 0.0-2.0 [facility] Comment on above: Performed By: #### H EMDF, BMP3 #### [facility] [address] [place] [address] Eosinophils #/vol (Bld) 0.1 10*3/uL Normal 0.0-0.5 [facility] Comment on above: Performed By: #### H EMDF, BMP3 #### [facility] [address] [place] [address] Eosinophils/100 WBC (Bld) 1.4 % Normal 1.0-6.0 [facility] Comment on above: Performed By: #### H EMDF, BMP3 #### [facility] [address] [place] [address] Erythrocyte distribution width Ratio (RBC) 13.5 % Normal 11.5-14.5 [facility] Comment on above: Performed By: #### H EMDF, BMP3 #### [facility] [address] [place] [address] Granulocytes/100 WBC (Bld) 63.0 % Normal 40.0-80.0 [facility] Comment on above: Performed By: #### H EMDF, BMP3 #### [facility] [address] [place] [address] Hematocrit Volume Fraction (Bld) 39.8 % Normal 35.0-47.0 [facility] Comment on above: Performed By: #### H EMDF, BMP3 #### [facility] [address] [place] [address] Hemoglobin mass conc (Bld) 13.6 g/dL Normal 11.7-16.0 [facility] Comment on above: Performed By: #### H EMDF, BMP3 #### [facility] [address] [place] [address] Lymphocytes #/vol (Bld) 2.2 10*3/uL Normal 1.0-4.3 [facility] Comment on above: Performed By: #### H EMDKarlie BMP3 #### [facility] [address] [place] [address] Lymphocytes/100 WBC (Bld) 27.6 % Normal 20.0-40.0 [facility] Comment on above: Performed By: #### H EMDF BMP3 #### [facility] [address] [place] [address] MCH Entitic mass (RBC) 30.9 pg Normal 26.0-34.0 [facility] Comment on above: Performed By: #### H EMDKarlie, BMP3 #### [facility] [address] [place] [address] MCHC mass conc (RBC) 34.3 % Normal 32.0-36.0 [facility] Comment on above: Performed By: #### H EMDF, BMP3 #### [facility] [address] [place] [address] MCV Entitic volume (RBC) 90.0 fL Normal 79.0-98.0 [facility] Comment on above: Performed By: #### H EMDF, BMP3 #### [facility] [address] [place] [address] Monocytes #/vol (Bld) 0.6 10*3/uL Normal 0.0-0.8 [facility] Comment on above: Performed By: #### H EMDF, BMP3 #### [facility] [address] [place] [address] Monocytes/100 WBC (Bld) 7.4 % Normal 2.0-10.0 [facility] Comment on above: Performed By: #### H EMDF, BMP3 #### [facility] [address] [place] [address] Platelet mean volume Entitic volume (Bld) 8.1 fL Normal 7.4-10.4 [facility] Comment on above: Performed By: #### H EMDF, BMP3 #### [facility] [address] [place] [address] Platelets #/vol (Bld) 296 10*3/uL Normal 140-440 [facility] Comment on above: Performed By: #### H EMDF, BMP3 #### [facility] [address] [place] [address] RBC #/vol (Bld) 4.42 10*6/uL Normal 3.80-5.20 [facility] Comment on above: Performed By: #### H EMDF, BMP3 #### [facility] [address] [place] [address] WBC #/vol (Bld) 7.8 10*3/uL Normal 3.6-10.7 [facility] Comment on above: Performed By: #### H EMDF, BMP3 #### [facility] [address] [place] [address] Urinalysis,Macroon 9 Appearance Nom (U) CLEAR Normal Clear [facility] Comment on above: Performed By: #### H EMDF, CMP3, LIPA4 #### [facility] [address] [place] [address] Bilirubin,Ur Positive Normal Negative [facility] Comment on above: Performed By: #### H EMDF, CMP3, LIPA4 #### [facility] [address] [place] [address] Color Nom (U) YELLOW Normal Lt. Yellow [facility] Comment on above: Performed By: #### H EMDF, CMP3, LIPA4 #### [facility] [address] [place] [address] Glucose Ql (U) Negative Normal Negative [facility] Comment on above: Performed By: #### H EMDF, CMP3, LIPA4 #### [facility] [address] [place] [address] Ketone,Urine TRACE Normal Negative [facility] Comment on above: Performed By: #### H EMDF, CMP3, LIPA4 #### [facility] [address] [place] [address] Nitrite Ql (U) Negative Normal Negative [facility] Comment on above: Performed By: #### H EMDF, CMP3, LIPA4 #### [facility] [address] [place] [address] Occult Blood,Ur Negative Normal Negative [facility] Comment on above: Performed By: #### H EMDF, CMP3, LIPA4 #### [facility] [address] [place] [address] pH (U) 6.0 Normal 5.0-8.0 [facility] Comment on above: Performed By: #### H EMDF, CMP3, LIPA4 #### [facility] [address] [place] [address] Protein mass conc (U) TRACE Normal Negative [facility] Comment on above: Performed By: #### H EMDF, CMP3, LIPA4 #### [facility] [address] [place] [address] Specific [place],Urine 1.025 Normal 1.005-1.030 [facility] Comment on above: Performed By: #### H EMDF, CMP3, LIPA4 #### [facility] [address] [place] [address] Urobilinogen Qn (U) 1.0 mg/dL Normal 0-1 [facility] Comment on above: Performed By: #### H EMDF, CMP3, LIPA4 #### [facility] [address] [place] [address] WBC #/vol (Bld) Negative Normal Negative [facility] Comment on above: Performed By: #### H EMDF, CMP3, LIPA4 #### [facility] [address] [place] [address] Urinalysis,Microscopicon Bacteria LM.HPF #/area (Urine sed) Few (1-5) Normal Negative [facility] Comment on above: Performed By: #### H EMDF, CMP3, LIPA4 #### [facility] [address] [place] [address] Cast, Hyaline 3 - 5 Normal 0-1 [facility] Comment on above: Performed By: #### H EMDF, CMP3, LIPA4 #### [facility] [address] [place] [address] Epithelial cells LM.HPF #/area (Urine sed) 0 - 2 Normal 3-5 [facility] Comment on above: Performed By: #### H EMDF, CMP3, LIPA4 #### [facility] [address] [place] [address] Mucous Threads Moderate Normal Negative [facility] Comment on above: Performed By: #### H EMDF, CMP3, LIPA4 #### [facility] [address] [place] [address] RBC LM.HPF #/area (Urine sed) 0 - 2 Normal 0-2 [facility] Comment on above: Performed By: #### H EMDF, CMP3, LIPA4 #### [facility] [address] [place] [address] WBC LM.HPF #/area (Urine sed) 0 - 2 Normal 0-5 [facility] Comment on above: Performed By: #### H EMDF, CMP3, LIPA4 #### [facility] [address] [place] [address] [facility] Anion gap molar conc 12 mmol/L 10 - 20 mmol/L [facility] Calcium mass conc 8.3 mg/dL Low 8.4 - 10.2 mg/dL [facility] Chloride molar conc 110 mmol/L High 98 - 108 mmol/L [facility] Creatinine mass conc 1.13 mg/dL High 0.4 - 1 .1 mg/dL [facility] GFR/1.73 sq M predicted among non-blacks MDRD vol rate/area (S/P/Bld) The eGFR should be used for monitoring renal function only and not for medication dosing. [facility] GFR/1.73 sq M.predicted CKD-EPI vol rate/area (S/P/Bld) 66 >=60 mL/min/1.73 m2 [facility] Glucose mass conc 78 mg/dL 65 - 99 mg/dL [facility] HCO3 molar conc 22 mmol/L 21 - 32 mmol/L [facility] Potassium molar conc 3.4 mmol/L Low 3.5 - 5 .1 mmol/L [facility] Sodium molar conc 141 mmol/L 135 - 145 mmol/L [facility] Urea nitrogen mass conc 7 mg/dL Low 8 - 25 mg/dL [facility] Urea nitrogen/Creatinine mass ratio 6.2 mg/mg Low [facility] CBC WITH AUTO DIFFERENTIALon 09-01-2018 Basophils #/vol (Bld) 0.04 10*3/uL [facility] Basophils/100 WBC (Bld) 0.3 % [facility] Eosinophils #/vol (Bld) 0.12 10*3/uL [facility] Eosinophils/100 WBC (Bld) 0.9 % [facility] Erythrocyte distribution width Entitic volume (RBC) 13.3 % 11.6 - 14.8 % [facility] Hematocrit Volume Fraction (Bld) 38.6 % 36 - 46 % [facility] Hemoglobin mass conc (Bld) 12.9 g/dL 12 - 16 g/dL [facility] Immature granulocytes #/vol (Bld) 0.05 10*3/uL [facility] Immature granulocytes/100 WBC (Bld) 0.40 % [facility] Comment on above: The IG parameter is the percentage of metamyelocytes, myelocytes, and promyelocytes. Interpretation and review of laboratory results Abnormal [facility] Lymphocytes #/vol (Bld) 2.10 10*3/uL [facility] Lymphocytes/100 WBC (Bld) 16.4 % [facility] MCH Entitic mass (RBC) 30.1 pg 26 - 34 pg [facility] MCHC mass conc (RBC) 33.4 g/dL 31 - 37 g/dL [facility] MCV Entitic volume (RBC) 90.2 fL 80 - 100 fL [facility] Monocytes #/vol (Bld) 1.27 10*3/uL High [facility] Monocytes/100 WBC (Bld) 9.9 % [facility] Neutrophils #/vol (Bld) 9.22 10*3/uL High [facility] Neutrophils/100 WBC (Bld) 72.1 % [facility] Nucleated RBC #/vol (Bld) 0.00 10*3/uL [facility] Nucleated RBC/100 WBC Ratio (Bld) 0.0 % [facility] Platelet mean volume Entitic volume (Bld) 10.8 fL 9 - 15.5 fL [facility] Platelets #/vol (Bld) 226 10*3/uL [facility] RBC #/vol (Bld) 4.28 10*6/uL [facility] lt WBC #/vol (Bld) 12.80 10*3/uL High [facility] alth CT KIDNEY STONEon 09-01-2018 [id number]-[id number] left-sided hydroureteronephrosis secondary to an obstructing 3 mm very distal left ureteral calculus. [employer] Workstation ID: [id number] [facility] EXAMINATION: CT KIDN EY STONE HISTORY: [...] No abdominal/pelvic lymphadenopathy is present. There is [id number] left-sided hydroureteronephrosis secondary to an obstructing 3 [...] device. No pelvic free fluid is evident. [facility] Interface, Rad In Fu ji Speechq [...] No abdominal/pelvic lymphadenopathy is present. There is nbla-[id number] left-sided hydroureteronephrosis secondary to an obstructing 3 [...] No pelvic free fluid is evident. IMPRESSION: Fwbj-bp-[id number] left-sided hydroureteronephrosis secondary to an obstructing 3 mm very distal left ureteral calculus. [employer] Workstation ID: [id number] [facility] ED NOTEon 09-01-2018 ED NOTE HNO ID: [id number] Author: Abhijeet (Rn) MICHAEL Mcdermott Service: Emergency Medicine Author Type: Registered Nurse [...] refused to take her potassium medication Normal [facility] ED NOTE HNO ID: [id number] Author: Abhijeet (Rn) Baldemar, MICHAEL Service: Emergency Medicine Author Type: Registered Nurse Type: ED Notes Filed: 08/31/2018 11:48 PM Note Text: ED CT notified pt ready Normal [facility] ED NOTE HNO ID: [id number] Author: Tera Wang (Tech) Service: Emergency Medicine Author Type: Naval Aircrewman Helicopter Type: ED Notes Filed: 08/31/2018 10:14 PM Note Text: urine specimen obtained and sent. Normal [facility] ED PROV NOTEon 09-01-2018 Protein mass conc HNO ID: [id number] Author: Ondina RecinosResTigre Segal MD Service: Emergency Medicine Author Type: [...] 0158 Jayesh Partida 09/01/[address] [facility] Protein mass conc HNO ID: [id number] Author: Hitesh Restrepo MD Service: Emergency Medicine [...] tenderness on the left. Patient was at [facility] yesterday. Stated they did an ultrasound and x-ray and diagnosed the stone. She followed up with a Urologist today. Does not rememeber their name. Was seen at [facility]. Scheduled for outpatient procedure but was told if pain became severe again to come to a ED with maintenance and operations supervisor Urology to get admitted to have [...] Hitesh Restrepo MD 09/01/[address] [facility] Protein mass conc HNO ID: [id number] Author: Hitesh Restrepo MD Service: Emergency Medicine Author Type: Physician Type: ED Provider Notes Filed: 09/01/2018 2:45 PM Note Text: ED Provider Note Patient Name: Que Escobar SERVICE DATE: 08/31/18 History Patient presents with: Flank Pain: Pt comes to ED with complaints of a kidney stone. Pt states she went [place] [facility] and followed up with a urologist. Pt [...] 4 days. Patient states was seen at [facility] ER and diagnosed with a kidney [...] symptoms or hematuria. History provided by: Patient freelance interpreter/translator used: No PAST MEDICAL HISTORY Diagnosis [...] Laterality Date - COLONOSCOP W/ OR W/O [facility] SPEC 11/21/2013 Colonoscopy AND EGD - COLONOSCOP W/ OR W/O [facility] SPEC 07/20/2017 Colonoscopy - EGD W/O OR W/BRUSH/WASH 07/20/2017 EGD - EGD W/O OR W/BRUSH/WASH 08/08/2018 EGD - LAPAROSCOPIC CHOLEYCYSTECTOMY 09/14/2009 - LEEP PROCEDURE (SATURATOR TENDER DEPT)_*[place] 09/09/2015 - SVT ABLATION 05/2015 procedure [...] Abnormal; Notable for the following components: Specific [place], Ur 1.032 (*) 1.005 - 1.030 All [...] [PK] ED Course User Index [PK] Misty Tubbs MD Clinical Impressions as of Sep 01 1444 [...] reasons routine maintenance. SIGNATURE: MD Misty Bartlett Res, MD Resident 09/01/18 0031 Attending Note I evaluated the patient and personally participated in the shukla components. I agree with the resident's findings and plan as documented and have discussed the case and management of the patient's care with the resident. Please see separate attending note. Signature: Hitesh Restrepo MD Date: 09/01/2018 Time: 2:45 PM Hitesh Restrepo MD 09/01/[address] [facility] Hepatic Function Panel (LFT) on 09-01-2018 Albumin mass conc 3.2 g/dL 3.2 - 5.2 g/dL [facility] ALP enzyme act/vol 56 U/L 40 - 140 U/L [facility] ALT enzyme act/vol 22 U/L 14 - 65 U/L [facility] AST enzyme act/vol 16 U/L 0 - 45 U/L [facility] Bilirubin mass conc 0.9 mg/dL 0 - 1.3 mg/dL [facility] Bilirubin.conjugated mass conc 0.2 mg/dL 0 - 0.4 mg/dL [facility] Interpretation and review of laboratory results Normal [facility] Protein mass conc 6.9 g/dL 6 - 8 g/dL [facility] Lipaseon 09-01-2018 Lipase enzyme act/vol 60 U/L Low 73 - 393 U/L [facility] Otheron 09-01-2018 Extra Tube Hold for add-ons. [facility] Comment on above: Auto resulted. Interpretation and review of laboratory results Abnormal [facility] URINALYSISon 09-01-2018 Bacteria Auto Ql (U) None Seen None Se en /hpf [facility] Bilirubin Ql (U) Negative Negative [facility] Clarity Refractometry automated Nom (U) Clear Clear [facility] Color Nom (U) Yellow Colorless, Yellow [facility] Epithelial cells.squamous Auto #/area (Urine sed) <1 [facility] Glucose Automated test strip mass conc (U) Negative Negative mg/dL [facility] Hemoglobin Automated test strip Ql (U) Negative Negative [facility] Interpretation and review of laboratory results Abnormal [facility] Ketones mass conc (U) >=80 Abnormal Negati ve mg/dL [facility] Leukocyte esterase Automated test strip Ql (U) Negative Negative [facility] Mucus Auto #/area (Urine sed) Rare None Seen, Rare /lpf [facility] Nitrite Automated test strip Ql (U) Negative Negative [facility] pH (U) 5.0 [pH] [facility] Protein mass conc (U) 30 Abnormal Negati ve mg/dL [facility] Comment on above: False positive resul ts may occur in urines with large amounts of hemoglobin, pH greater than 8.0, contrast medium, or disinfectants including ammonium compounds. RBC Auto #/area (Urine sed) <1 [facility] Specific gravity Relative Density (U) 1.021 [facility] Urobilinogen mass conc (U) <2.0 <2.0 mg/dL [facility] WBC Auto #/area (Urine sed) 4 [facility] Microscopic examinat ion is performed on all urinalysis samples and only positive findings are reported. The test for blood on the chemical analytic portion of urinalysis may also be positive due to hemoglobinuria and myoglobinuria and if red blood cells are present they are quantified by microscopic examination. [facility] Urine Pregnancyon 09-01-2018 HCG ( test) Ql (U) Negative Negative [facility] Interpretation and review of laboratory results Normal [facility] ED Triage Noteon 08-31-2018 ED Triage Note HNO ID: [id number] Author: Lelia Caro (Pa) Service: ? Author Type: Physician Billiard Table Assembler Type: ED Triage Notes Filed: 08/31/2018 9:58 [...] Test SIGNATURE: Lelia Caro PA-C Normal [facility] US Pelvis TA/TVon 08-23-2018 US Pelvis TA/TV Patient Name: QUE ESCOBAR Ultrasound Exam Date/Time 08/22/2018 22:02:00 EDT Exam US Pelvis TA/TV Ordering Physician PATRICK BUENO PETER J Accession Number [id number] CPT4 Codes 63356 (US Pelvis TA/TV), 89758 (US Transvaginal) Reason For Exam Right lower [...] Transcribed Date and Time: 08/22/2018 10:57 Normal [facility] Comp Metabolic Panelon 08-22 Calcium mass conc 9.3 mg/dL Normal 8.4-10.4 [facility] Comment on above: Performed By: #### H EMDF, CMP3, LIPA4 #### [facility] [address] [place] [address] ALP enzyme act/vol 58 U/L Normal 38-126 [facility] Comment on above: Performed By: #### H EMDF, CMP3, LIPA4 #### [facility] [address] [place] [address] ALT enzyme act/vol 25 U/L Normal 13-69 [facility] Comment on above: Performed By: #### H EMDF, CMP3, LIPA4 #### [facility] [address] [place] [address] Anion gap molar conc 8 Normal [facility] Comment on above: Performed By: #### H EMDF, CMP3, LIPA4 #### [facility] [address] [place] [address] AST enzyme act/vol 12 U/L Low 15-46 [facility] Comment on above: Performed By: #### H EMDF, CMP3, LIPA4 #### [facility] [address] [place] [address] Bilirubin mass conc 0.6 mg/dL Normal 0.2-1.3 [facility] Comment on above: Performed By: #### H EMDF, CMP3, LIPA4 #### [facility] [address] [place] [address] CO2 molar conc 26 mmol/L Normal 22-30 [facility] Comment on above: Performed By: #### H EMDF, CMP3, LIPA4 #### [facility] [address] [place] [address] Creatinine mass conc 1.10 mg/dL Normal 0.52-1.25 [facility] Comment on above: Performed By: #### H EMDF, CMP3, LIPA4 #### [facility] [address] [place] [address] GFR/1.73 sq M predicted among blacks MDRD vol rate/area (S/P/Bld) mL/min/{1.73_m2} Normal >60 [facility] Comment on above: Performed By: #### H EMDF, CMP3, LIPA4 #### [facility] [address] [place] [address] GFR/1.73 sq M predicted among non-blacks MDRD vol rate/area (S/P/Bld) 59.0 mL/min/{1.73_m2} Normal >60 [facility] Comment on above: Result Comment: Sour ce- MDRD equation with creatinine calibration to IDMS(NKDEP) eGFR not recommended for drug dose adjustment Performed By: #### H EMDF, CMP3, LIPA4 #### [facility] [address] [place] [address] Glucose mass conc 89 mg/dL Normal 70-100 [facility] Comment on above: Performed By: #### H EMDF, CMP3, LIPA4 #### [facility] [address] [place] [address] Protein mass conc 6.8 g/dL Normal 6.3-8.2 [facility] Comment on above: Performed By: #### H EMDF, CMP3, LIPA4 #### [facility] [address] [place] [address] Urea nitrogen mass conc 18 mg/dL Normal 7-20 [facility] Comment on above: Performed By: #### H EMDF, CMP3, LIPA4 #### [facility] [address] [place] [address] Potassium molar conc 3.9 mmol/L Normal 3.5-5.1 [facility] Comment on above: Performed By: #### H EMDF, CMP3, LIPA4 #### [facility] [address] [place] [address] Sodium molar conc 137 mmol/L Normal 135-145 [facility] Comment on above: Performed By: #### H EMDF, CMP3, LIPA4 #### [facility] [address] [place] [address] Albumin mass conc 4.0 g/dL Normal 3.5-5.0 [facility] Comment on above: Performed By: #### H EMDF, CMP3, LIPA4 #### [facility] [address] [place] [address] Chloride molar conc 103 mmol/L Normal 98-107 [facility] Comment on above: Performed By: #### H EMDF, CMP3, LIPA4 #### [facility] [address] [place] [address] HCG,Urine Qualon 08-22-2018 HCG.beta subunit ( test) Ql (U) Negative Normal Negative [facility] Comment on above: Result Comment: Preg fallon is the most common reason for HCG in urine, although choriocarcinoma, hydatidiform mole, and certain nontropho- blastic malignancies also result in detectable urinary HCG levels. Sensitivity = 20mIU/mL. Performed By: #### U AMAC, UAMIC, HCGUR #### [facility] [address] [place] [address] Hemogram w/ Autodiffon 08-22 Abs Baso Cnt 0.1 10*3/uL Normal 0.0-0.2 [facility] Comment on above: Performed By: #### H EMDF, CMP3, LIPA4 #### [facility] [address] [place] [address] Abs Neutrophile Cnt 4.4 10*3/uL Normal 1.8-7.0 [facility] Comment on above: Performed By: #### H EMDF, CMP3, LIPA4 #### [facility] [address] [place] [address] Basophils/100 WBC (Bld) 0.8 % Normal 0.0-2.0 [facility] Comment on above: Performed By: #### H EMDF, CMP3, LIPA4 #### [facility] [address] [place] [address] Eosinophils #/vol (Bld) 0.2 10*3/uL Normal 0.0-0.5 [facility] Comment on above: Performed By: #### H EMDF, CMP3, LIPA4 #### [facility] [address] [place] [address] Eosinophils/100 WBC (Bld) 2.3 % Normal 1.0-6.0 [facility] Comment on above: Performed By: #### H EMDF, CMP3, LIPA4 #### [facility] [address] [place] [address] Erythrocyte distribution width Ratio (RBC) 13.1 % Normal 11.5-14.5 [facility] Comment on above: Performed By: #### H EMDF, CMP3, LIPA4 #### [facility] [address] [place] [address] Granulocytes/100 WBC (Bld) 50.3 % Normal 40.0-80.0 [facility] Comment on above: Performed By: #### H EMDF, CMP3, LIPA4 #### [facility] [address] [place] [address] Hematocrit Volume Fraction (Bld) 42.0 % Normal 35.0-47.0 [facility] Comment on above: Performed By: #### H EMDF, CMP3, LIPA4 #### [facility] [address] [place] [address] Hemoglobin mass conc (Bld) 14.4 g/dL Normal 11.7-16.0 [facility] Comment on above: Performed By: #### H EMDF, CMP3, LIPA4 #### [facility] [address] [place] [address] Lymphocytes #/vol (Bld) 3.3 10*3/uL Normal 1.0-4.3 [facility] Comment on above: Performed By: #### H EMDF, CMP3, LIPA4 #### [facility] [address] [place] [address] Lymphocytes/100 WBC (Bld) 37.7 % Normal 20.0-40.0 [facility] Comment on above: Performed By: #### H EMDF, CMP3, LIPA4 #### [facility] [address] [place] [address] MCH Entitic mass (RBC) 31.0 pg Normal 26.0-34.0 [facility] Comment on above: Performed By: #### H EMDF, CMP3, LIPA4 #### [facility] [address] [place] [address] MCHC mass conc (RBC) 34.3 % Normal 32.0-36.0 [facility] Comment on above: Performed By: #### H EMDF, CMP3, LIPA4 #### [facility] [address] [place] [address] MCV Entitic volume (RBC) 90.3 fL Normal 79.0-98.0 [facility] Comment on above: Performed By: #### H EMDF, CMP3, LIPA4 #### [facility] [address] [place] [address] Monocytes #/vol (Bld) 0.8 10*3/uL Normal 0.0-0.8 [facility] Comment on above: Performed By: #### H EMDF, CMP3, LIPA4 #### [facility] [address] [place] [address] Monocytes/100 WBC (Bld) 8.9 % Normal 2.0-10.0 [facility] Comment on above: Performed By: #### H EMDF, CMP3, LIPA4 #### [facility] [address] [place] [address] Platelet mean volume Entitic volume (Bld) 8.7 fL Normal 7.4-10.4 [facility] Comment on above: Performed By: #### H EMDF, CMP3, LIPA4 #### [facility] [address] [place] [address] Platelets #/vol (Bld) 294 10*3/uL Normal 140-440 [facility] Comment on above: Performed By: #### H EMDF, CMP3, LIPA4 #### [facility] [address] [place] [address] RBC #/vol (Bld) 4.65 10*6/uL Normal 3.80-5.20 [facility] Comment on above: Performed By: #### H EMDF, CMP3, LIPA4 #### [facility] [address] [place] [address] WBC #/vol (Bld) 8.7 10*3/uL Normal 3.6-10.7 [facility] Comment on above: Performed By: #### H EMDF, CMP3, LIPA4 #### [facility] [address] [place] [address] Lipaseon 08-22-2018 Lipase enzyme act/vol 114 U/L Normal 23-300 [facility] Comment on above: Performed By: #### H EMDF, CMP3, LIPA4 #### [facility] [address] [place] [address] Urinalysis,Macroon 9 Appearance Nom (U) TURBID Normal Clear [facility] Comment on above: Performed By: #### U AMAC, UAMIC, HCGUR #### [facility] [address] [place] [address] Bilirubin,Ur Negative Normal Negative [facility] Comment on above: Performed By: #### U AMAC, UAMIC, HCGUR #### [facility] [address] [place] [address] Color Nom (U) YELLOW Normal Lt. Yellow [facility] Comment on above: Performed By: #### U AMAC, UAMIC, HCGUR #### [facility] [address] [place] [address] Glucose Ql (U) Negative Normal Negative [facility] Comment on above: Performed By: #### U AMAC, UAMIC, HCGUR #### [facility] [address] [place] [address] Ketone,Urine Negative Normal Negative [facility] Comment on above: Performed By: #### U AMAC, UAMIC, HCGUR #### [facility] [address] [place] [address] Nitrite Ql (U) Negative Normal Negative [facility] Comment on above: Performed By: #### U AMAC, UAMIC, HCGUR #### [facility] [address] [place] [address] Occult Blood,Ur Negative Normal Negative [facility] Comment on above: Performed By: #### U AMAC, UAMIC, HCGUR #### [facility] [address] [place] [address] pH (U) 7.5 Normal 5.0-8.0 [facility] Comment on above: Performed By: #### U AMAC, UAMIC, HCGUR #### [facility] [address] [place] [address] Protein mass conc (U) Negative Normal Negative [facility] Comment on above: Performed By: #### U AMAC, UAMIC, HCGUR #### [facility] [address] [place] [address] Specific [place],Urine 1.021 Normal 1.005-1.030 [facility] Comment on above: Performed By: #### U AMAC, UAMIC, HCGUR #### [facility] [address] [place] [address] Urobilinogen Qn (U) 0.2 mg/dL Normal 0-1 [facility] Comment on above: Performed By: #### U AMAC, UAMIC, HCGUR #### [facility] [address] [place] [address] WBC #/vol (Bld) Negative Normal Negative [facility] Comment on above: Performed By: #### U AMAC, UAMIC, HCGUR #### [facility] [address] [place] [address] Urinalysis,Microscopicon 03- 20-2019 Bacteria LM.HPF #/area (Urine sed) Negative Normal Negative [facility] Comment on above: Performed By: #### U AMAC, UAMIC, HCGUR #### [facility] [address] [place] [address] Cast, Hyaline 2 /[LPF] Normal 0-1 [facility] Comment on above: Performed By: #### U AMAC, UAMIC, HCGUR #### [facility] [address] [place] [address] Epithelial cells LM.HPF #/area (Urine sed) TRACE Normal 3-5 [facility] Comment on above: Performed By: #### U AMAC, UAMIC, HCGUR #### [facility] [address] [place] [address] RBC,Urine 2 /[HPF] Normal 0-2 [facility] Comment on above: Performed By: #### U AMAC, UAMIC, HCGUR #### [facility] [address] [place] [address] WBC,Urine 1 /[HPF] Normal 0-5 [facility] Comment on above: Performed By: #### U AMAC, UAMIC, HCGUR #### [facility] [address] [place] [address] ANES Negin 08-08-2018 ANES POST HNO ID: [id number] Author: Von Crenshaw MD Service: Anesthesiology Author Type: Anesthesiologist Type: Anesthesia PostOp Filed: 08/08/2018 12:32 PM Note Text: POST ANESTHESIA EVALUATION NOTE SERVICE DATE: 08/08/2018 SERVICE TIME: 123 : 1990 Vitals: 08/08/18 1102 08/08/18 1200 [...] 08, 2018 TIME: 12:32 PM PAGER/CONTACT #: [facility] ANES PREOPon 08-08-2018 ANES PREOP HNO ID: [id number] Author: Von Crenshaw MD Service: Anesthesiology Author [...] Laterality Date - COLONOSCOP W/ OR W/O BRS SPEC 11/21/2013 Colonoscopy AND EGD - COLONOSCOP W/ OR W/O BRSH SPEC 07/20/2017 Colonoscopy - EGD W/O OR W/BRUSH/WASH 07/20/2017 EGD - LAPAROSCOPIC CHOLEYCYSTECTOMY 09/14/2009 - LEEP PROCEDURE (SATURATOR TENDER DEPT)_*[place] 09/09/2015 - SVT ABLATION 05/2015 procedure [...] August 08, 2018 TIME: 11:08 AM CSN: [id number] [facility] PT EDon 08-08-2018 PT ED HNO ID: [id number] Author: Maury RecinosRn) MICHAEL [place] Service: Nursing [...] None Electronically Signed By: Maury [place] RN [facility] PT ED HNO ID: [id number] Author: Laura RecinosRn) Pal, MICHAEL Service: ? Author Type: Registered Nurse Type: Patient Education Filed: 08/08/2018 10:53 AM Note Text: PRE OP LEARNING ASSESSMENT PROCEDURE/SURGERY: GI PROCEDURES: EGD READINESS TO LEARN COGNITIVE ABILITY: Alert and oriented MOTIVATION TO LEARN: Interested FAMILY SUPPORT: High - Very involved in pt care PATIENT LEARNS BEST BY: Verbal Instruction FACTORS AFFECTING LEARNING: None PHYSICAL LIMITATIONS AFFECTING LEARNING: Pain Electronically Signed By: Laura Aguillon, MICHAEL In Department: [facility] ENDOSCOPY [facility] SURGICAL PATHOLOGYon 019 SURGICAL PATHOLOGY Specimen originated from [facility] Specimen #: [id number] Submitting Physician: CHEYANNE TOURE MD FINAL DIAGNOSIS [...] Stomach, biopsy (D) - Helicobacter pylori gastritis. JEL/miguel a 08/09/2018 COMMENT 1. There can be [...] in one cassette. Gross examination performed at [facility], [address] [place], [place] [id number] 08/08/2018 5:18:47 PM Date of Report: 08/09/2018 Date of Procedure: 08/08/2018 Date of Receipt: 08/08/2018 Submitted by: CHEYANNE TOURE MD Location: [facility] Diagnostic interpretation performed at [facility], [address] [place] [address]. [facility] Comment on above: Performed By: #### P ATHS #### [facility] [address] [place] [address] [phone] HOSPon 07-25-2018 HOSP Patient:Que Escobar MRN: Height:5' [...] the following basenames: K,HCT Progress Notes ([facility]): Estephania Mg LPN 08/07/2018 4:01 PM [...] appropriate container from the lab in the [facility]. It's usually several samples that are needed. Lab can explain that to her. The EGD today will check for Hpylori. Anastasia Roman RN APRN.BONITA Mg LPN 08/08/2018 9:21 AM Signed Left a detailed message for patient with information listed below. Estephania Mg LPN Progress Notes ([facility]): Rhonda Tello Alexislena ELVIA 07/27/2018 11:54 AM Signed Patient calls [...] 07/27/2018 3:23 PM Signed Pt notified via [employer]. Yue Genao Ma [facility] 07-12-2018 [facility] Office Visit (AGCARDPHRA) QUE ESCOBAR ([id number]) 1990 F Date Time Provider Department 07/12/18 2:30 PM RENETTA SOWGCARDPHErica Duran During your visit today, we recorded the following information about you: Pulse Blood pressure Weight Height 85/minute 90/70 67 kg 1.676 m Heather Azar CMA 07/12/2018 2:42 PM Signed No cardiac complaints today. RAFAELA Moran MD 07/12/2018 3:08 PM Signed Subjective HPI Prior history, edited as needed: 28-year-old female who was referred by Jerry Morillo CNP ([place], [place]) for consideration of catheter ablation for [...] supraventricular tachycardia, underwent an EP study in 2016 that showed no inducible arrhythmia with programmed [...] rhythm at 83 beats a minute with TN of 130, QRS of 80, QTC of [...] shows normal sinus rhythm at 74 bpm, TN 120, QRS 70, QTC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 [place] [address] 01-23-2023 19:52-0400 Body mass index (BMI) [Ratio] 30.2 kg/m2 Dr. Davide Chao Work Phone: 1(757)611-753329 [place] [address] 01-23-2023 19:52-0400 Body temperature 97.2 [degF] Dr. Davide Chao Work Phone: 2(456)290-151929 [place] [address] 01-23-2023 19:52-0400 Body weight 84.[address] Davide Chao Work Phone: 9(481)197-691329 [place] [address] 01-16-2023 19:57-0400 Diastolic blood pressure 54 mm[Hg] Dr. Davide Chao Work Phone: 9(967)768-773629 [place] [address] 01-16-2023 19:57-0400 Heart rate 94 /min Dr. Davide Chao Work Phone: 8(589)177-439329 [place] [address] 01-16-2023 19:57-0400 SaO2% (BldA) [Mass fraction] 99 % Dr. Davide Chao Work Phone: 3(808)702-055729 [place] [address] 01-16-2023 19:57-0400 Systolic blood pressure 96 mm[Hg] Dr. Davide Chao Work Phone: 8(456)840-050029 [place] [address] 01-16-2023 19:56-0400 Body temperature 97.8 [degF] Dr. Davide Chao Work Phone: 0(242)372-186629 [place] [address] 01-16-2023 16:48-0400 Body mass index (BMI) [Ratio] 30.5 kg/m2 Dr. Davide Chao Work Phone: 7(533)350-113329 [place] [address] 01-16-2023 16:48-0400 Body weight 85.[address] Davide Chao Work Phone: 3(545)742-948729 [place] [address] 01-16-2023 15:24-0400 Body mass index (BMI) [Ratio] 30.7 kg/m2 Dr. Davide Chao Work Phone: 4(092)770-455429 [place] [address] 01-16-2023 15:24-0400 Body weight 86.[address] Davide Chao Work Phone: 8(986)286-734329 [place] [address] 12-21-2022 11:19-0400 Body mass index (BMI) [Ratio] 29.4 kg/m2 Dr. Davide Chao Work Phone: 6(725)266-047029 [place] [address] 12-21-2022 11:19-0400 Body weight 82.[address] Davide Chao Work Phone: 4(854)163-581729 [place] [address] 12-21-2022 11:19-0400 Diastolic blood pressure 70 mm[Hg] Dr. Davide Chao Work Phone: 0(112)753-028329 [place] [address] 12-21-2022 11:19-0400 Systolic blood pressure 110 mm[Hg] Dr. Davide Chao Work Phone: 9(355)551-784529 [place] [address] 11-25-2022 09:26-0400 Body mass index (BMI) [Ratio] 28.3 kg/m2 Dr. Davide Chao Work Phone: 2(845)069-197029 [place] [address] 11-25-2022 09:26-0400 Body weight 79.[address] Davide Chao Work Phone: 7(094)582-385729 [place] [address] 11-25-2022 09:26-0400 Diastolic blood pressure 65 mm[Hg] Dr. Davide Chao Work Phone: [facility] 11-25-2022 09:26-0400 Systolic blood pressure 98 mm[Hg] Dr. Davide Chao Work Phone: [facility] 11-11-2022 00:19-0400 Body height 167.4 cm Andry Rueda MD Work Phone: [facility] 11-11-2022 00:19-0400 Body mass index (BMI) [Ratio] 27.83 kg/m2 Andry Rueda MD Work Phone: [facility] 11-11-2022 00:19-0400 Body weight 78 kg Andry Rueda MD Work Phone: [facility] 10-28-2022 09:23-0400 Body height 167.[address] Davide Chao Work Phone: 9(646)645-240298 [address] 10-28-2022 09:16-0400 Body mass index (BMI) [Ratio] 27.4 kg/m2 Dr. Davide Chao Work Phone: 8(752)327-328598 [address] 10-28-2022 09:16-0400 Body weight 77.[address] Davide Chao Work Phone: 9(360)822-077998 [address] 10-28-2022 09:16-0400 Diastolic blood pressure 73 mm[Hg] Dr. Davide Chao Work Phone: 5(286)091-778725 [place] [address] 10-28-2022 09:16-0400 Systolic blood pressure 106 mm[Hg] Dr. Davide Chao Work Phone: 1(759)150-545225 [place] [address] 09-28-2022 08:06-0400 Body height 167.[address] Davide Chao Work Phone: 2(538)746-312798 [address] 09-28-2022 08:06-0400 Body mass index (BMI) [Ratio] 26.8 kg/m2 Dr. Davide Chao Work Phone: 1(473)778-490225 [place] [address] 09-28-2022 08:06-0400 Body weight 75.[address] Davide Chao Work Phone: [facility] 09-28-2022 08:06-0400 Diastolic blood pressure 71 mm[Hg] Dr. Davide Chao Work Phone: [facility] 09-28-2022 08:06-0400 Systolic blood pressure 104 mm[Hg] Dr. Davide Chao Work Phone: [facility] 09-11-2022 23:47-0400 Diastolic blood pressure 62 mm[Hg] Davide Chao Other Phone: [facility] 09-11-2022 23:47-0400 Heart rate 85 /min Davide Chao Other Phone: [facility] 09-11-2022 23:47-0400 Respiratory rate 15 /min Davide Chao Other Phone: [facility] 09-11-2022 23:47-0400 SaO2% (BldA) [Mass fraction] 100 % Davide Chao Other Phone: [facility] 09-11-2022 23:47-0400 Systolic blood pressure 95 mm[Hg] Davide Chao Other Phone: [facility] 09-11-2022 22:56-0400 Body height 167.6 cm Davide Chao Other Phone: [facility] 09-11-2022 22:56-0400 Body weight 72.7 kg Davide Chao Other Phone: [facility] 08-17-2022 13:25-0400 Body height 167.[address] Davide Chao Work Phone: [facility] 08-17-2022 13:24-0400 Body mass index (BMI) [Ratio] 26.4 kg/m2 Dr. Davide Chao Work Phone: [facility] 08-17-2022 13:24-0400 Body weight 74.[address] Davide Chao Work Phone: [facility] 08-17-2022 13:24-0400 Diastolic blood pressure 70 mm[Hg] Dr. Davide Chao Work Phone: [facility] 08-17-2022 13:24-0400 Systolic blood pressure 105 mm[Hg] Dr. Davide Chao Work Phone: [facility] 07-29-2022 15:16-0500 Body height 167.[address] Davide Chao Work Phone: [facility] 07-29-2022 15:16-0500 Body mass index (BMI) [Ratio] 26.9 kg/m2 Dr. Davide Chao Work Phone: [facility] 07-29-2022 15:16-0500 Body weight 75.[address] Davide Chao Work Phone: [facility] 07-29-2022 15:16-0500 Diastolic blood pressure 72 mm[Hg] Dr. Davide Chao Work Phone: [facility] 07-29-2022 15:16-0500 Systolic blood pressure 104 mm[Hg] Dr. Davide Chao Work Phone: [facility] 07-13-2022 23:15-0500 Diastolic blood pressure 71 mm[Hg] Nery Esparza MD Work Phone: [facility] 07-13-2022 23:15-0500 SaO2% (BldA) [Mass fraction] 100 % Nery Esparza MD Work Phone: [facility] 07-13-2022 23:15-0500 Systolic blood pressure 105 mm[Hg] Nery Esparza MD Work Phone: [facility] 07-13-2022 22:57-0500 Body height 167.6 cm Nery Esparza MD Work Phone: [facility] 07-13-2022 22:57-0500 Body mass index (BMI) [Ratio] 27.07 kg/m2 Nery Esparza MD Work Phone: [employer] 07-13-2022 22:57-0500 Body temperature 98.2 [degF] Nery Esparza MD Work Phone: [facility] 07-13-2022 22:57-0500 Body weight 76.07 kg Nery Esparza MD Work Phone: [facility] 07-13-2022 22:57-0500 Heart rate 96 /min Nery Esparza MD Work Phone: [facility] 07-13-2022 22:57-0500 Respiratory rate 18 /min Nery Esparza MD Work Phone: [facility] 11-21-2021 09:11-0400 Body mass index (BMI) [Ratio] 27.12 kg/m2 Mireya Dewitt [employer] Work Phone: [facility] 11-21-2021 09:11-0400 Body temperature 98.4 [degF] Mireya Dewitt CNP Work Phone: [facility] 11-21-2021 09:11-0400 Body weight 76.2 kg Mireya Dewitt CNP Work Phone: [facility] 11-21-2021 09:11-0400 Diastolic blood pressure 70 mm[Hg] Mireya Dewitt CNP Work Phone: [facility] 11-21-2021 09:11-0400 Heart rate 86 /min Mireyabrigida Dewitt CNP Work Phone: [facility] 11-21-2021 09:11-0400 Respiratory rate 14 /min Mireya Dewitt CNP Work Phone: [facility] 11-21-2021 09:11-0400 SaO2% (BldA) [Mass fraction] 97 % Mireya Dewitt CNP Work Phone: [facility] 11-21-2021 09:11-0400 Systolic blood pressure 99 mm[Hg] Mireya Esdras [employer] Work Phone: [facility] 11-16-2021 13:58-0400 Body height 167.64 cm Davide Oglesby [employer] Work Phone: [employer] Work Phone: 11-16-2021 13:58-0400 Body mass index (BMI) [Ratio] 28.43 kg/m2 Davide Oglesby [employer] Work Phone: [employer] Work Phone: 11-16-2021 13:58-0400 Body surface area Derived from formula 1.9 m2 Davide Oglesby [employer] Work Phone: [employer] Work Phone: 11-16-2021 13:58-0400 Body weight 79.9 kg Davide [employer] Work Phone: [employer] Work Phone: 11-16-2021 13:58-0400 Diastolic blood pressure 64 mm[Hg] Davide EspitiaOmniox Work Phone: [employer] Work Phone: 11-16-2021 13:58-0400 Systolic blood pressure 110 mm[Hg] Davide [employer] Work Phone: [employer] Work Phone: 10-14-2021 15:28-0400 Body temperature 97.88 [degF] Davide [employer] Other Phone: [facility] 10-14-2021 15:28-0400 Diastolic blood pressure 71 mm[Hg] Davide [employer] Other Phone: [facility] 10-14-2021 15:28-0400 Heart rate 79 /min Davide Nup[employer] Other Phone: [facility] 10-14-2021 15:28-0400 Respiratory rate 16 /min Davide Espitiasaud[employer] Other Phone: [facility] 10-14-2021 15:28-0400 SaO2% (BldA) [Mass fraction] 99 % Davide Chao Other Phone: [facility] 10-14-2021 15:28-0400 Systolic blood pressure 118 mm[Hg] Davide Chao Other Phone: [facility] 10-08-2021 10:24-0400 Body height 167.64 cm Davide EspitiaOmniox Work Phone: [employer] Work Phone: 10-08-2021 10:24-0400 Body mass index (BMI) [Ratio] 31.24 kg/m2 Davide EspitiaOmniox Work Phone: [employer] Work Phone: 10-08-2021 10:24-0400 Body surface area Derived from formula 1.97 m2 Davide EspitiaO[employer]iox Work Phone: [employer] Work Phone: 10-08-2021 10:24-0400 Body weight 87.8 kg Davide Esp[employer] Work Phone: [employer] Work Phone: 10-08-2021 10:24-0400 Diastolic blood pressure 64 mm[Hg] Davide Esp[employer]iaO[employer]iox Work Phone: [employer] Work Phone: 10-08-2021 10:24-0400 Systolic blood pressure 104 mm[Hg] Davide EspitiaOmniox Work Phone: [employer] Work Phone: 10-01-2021 11:25-0400 Body height 167.64 cm Davide [employer] Work Phone: [employer] Work Phone: 10-01-2021 11:25-0400 Body mass index (BMI) [Ratio] 31.06 kg/m2 Davide EspitiaOmniox Work Phone: [place] [address] [place] Work Phone: 10-01-2021 11:25-0400 Body surface area Derived from formula 1.97 m2 Davide Oglesby [employer] Work Phone: [facility] [place] [address] [place] Work Phone: 10-01-2021 11:25-0400 Body weight 87.3 kg Davide Oglesby [employer] Work Phone: [place] [address] [place] Work Phone: 10-01-2021 11:25-0400 Diastolic blood pressure 62 mm[Hg] Davide Oglesby [employer] Work Phone: [place] [address] [employer] Work Phone: 10-01-2021 11:25-0400 Systolic blood pressure 102 mm[Hg] Davide Oglesby [employer] Work Phone: [place] [address] [employer] Work Phone: 09-24-2021 11:14-0400 Body height 167.64 cm Davide Oglesby [employer] Work Phone: [place] [address] [place] Work Phone: 09-24-2021 11:14-0400 Body mass index (BMI) [Ratio] 30.53 kg/m2 Davide Oglesby [employer] Work Phone: [place] [address] [place] Work Phone: 09-24-2021 11:14-0400 Body surface area Derived from formula 1.95 m2 Davide Oglesby [employer] Phone: [place] [address] [place] Work Phone: 09-24-2021 11:14-0400 Body weight 85.79 kg Davide Oglesby [employer] Phone: [place] [address] [place] Work Phone: 09-24-2021 11:14-0400 Diastolic blood pressure 80 mm[Hg] Davide EspitiaOmniox Work Phone: [employer] [facility] [place] Work Phone: 09-24-2021 11:14-0400 Systolic blood pressure 110 mm[Hg] Davide EspitiaOmniox Work Phone: [employer] [address] [place] Work Phone: 09-17-2021 11:35-0400 Body height 167.64 cm Davide Oglesby [employer] Work Phone: [employer] [facility] [employer] Work Phone: 09-17-2021 11:35-0400 Body mass index (BMI) [Ratio] 30.21 kg/m2 Davide Oglesby [employer] Work Phone: [employer] [facility] [employer] Work Phone: 09-17-2021 11:35-0400 Body surface area Derived from formula 1.94 m2 Davide Oglesby [employer] Work Phone: [employer] Work Phone: 09-17-2021 11:35-0400 Body weight 84.9 kg Davide Oglesby [employer] Work Phone: [employer] [facility] [place] Work Phone: 09-17-2021 11:35-0400 Diastolic blood pressure 66 mm[Hg] Davide Oglesby [employer] Work Phone: [employer] [facility] [place] Work Phone: 09-17-2021 11:35-0400 Systolic blood pressure 108 mm[Hg] Davide Oglesby [employer] Work Phone: [employer] Work Phone: 09-10-2021 10:59-0400 Body height 167.64 cm Davide Oglesby [employer] Work Phone: [employer] [address] [place] Work Phone: 09-10-2021 10:59-0400 Body mass index (BMI) [Ratio] 30.1 kg/m2 Davide D [employer] Work Phone: [employer] Work Phone: 09-10-2021 10:59-0400 Body surface area Derived from formula 1.94 m2 Davide D [employer] Work Phone: [employer] Work Phone: 09-10-2021 10:59-0400 Body weight 84.6 kg Davide D [employer] Work Phone: [employer] Work Phone: 09-10-2021 10:59-0400 Diastolic blood pressure 62 mm[Hg] Davide D [employer] Work Phone: [employer] Work Phone: 09-10-2021 10:59-0400 Systolic blood pressure 110 mm[Hg] Davide D [employer] Work Phone: [employer] Work Phone: 08-27-2021 11:23-0400 Body height 167.64 cm Davide D [employer] Work Phone: [employer] Work Phone: 08-27-2021 11:23-0400 Body mass index (BMI) [Ratio] 30.04 kg/m2 Davide D [employer] Work Phone: [employer] Work Phone: 08-27-2021 11:23-0400 Body surface area Derived from formula 1.94 m2 Davide D [employer] Work Phone: [employer] Work Phone: 08-27-2021 11:23-0400 Body weight 84.43 kg Davide D [employer] Work Phone: [employer] Work Phone: 08-27-2021 11:23-0400 Diastolic blood pressure 78 mm[Hg] Davide EspitiaOmniox Work Phone: [employer] [address] [place] Work Phone: 08-27-2021 11:23-0400 Systolic blood pressure 118 mm[Hg] Davide Espiti[employer] Work Phone: [place] [address] [place] Work Phone: 08-13-2021 08:58-0500 Body height 167.64 cm Davide Oglesby [employer] Work Phone: [place] [address] [employer] Work Phone: 08-13-2021 08:58-0500 Body mass index (BMI) [Ratio] 29.39 kg/m2 Davide EspitiaO[employer]iox Work Phone: [place] [address] [employer] Work Phone: 08-13-2021 08:58-0500 Body surface area Derived from formula 1.92 m2 Davide Esp[employer] Work Phone: [place] [address] [place] Work Phone: 08-13-2021 08:58-0500 Body weight 82.6 kg Davide Esp[employer] Work Phone: [place] [address] [place] Work Phone: 08-13-2021 08:58-0500 Diastolic blood pressure 60 mm[Hg] Davide Esp[employer] Work Phone: [place] [address] [place] Work Phone: 08-13-2021 08:58-0500 Systolic blood pressure 112 mm[Hg] Davide D [employer] Work Phone: [place] [address] [place] Work Phone: 07-30-2021 11:06-0500 Body height 167.64 cm Davide Zac[employer] Work Phone: [employer] Work Phone: 07-30-2021 11:06-0500 Body mass index (BMI) [Ratio] 28.93 kg/m2 Davide Oglesby [employer] Work Phone: [employer] Work Phone: 07-30-2021 11:06-0500 Body surface area Derived from formula 1.91 m2 Davide Oglesby [employer] Work Phone: [employer] Work Phone: 07-30-2021 11:06-0500 Body weight 81.3 kg Davide Reny [employer] Phone: [employer] Work Phone: 07-30-2021 11:06-0500 Diastolic blood pressure 68 mm[Hg] Davide Reny [employer] Phone: [employer] Work Phone: 07-30-2021 11:06-0500 Systolic blood pressure 114 mm[Hg] Davide Oglesby [employer] Phone: [employer] Work Phone: 07-12-2021 14:39-0500 Body height 167.64 cm Davide Reny [employer] Phone: [employer] Work Phone: 07-12-2021 14:39-0500 Body mass index (BMI) [Ratio] 28.75 kg/m2 Davide Oglesby [employer] Phone: [employer] Work Phone: 07-12-2021 14:39-0500 Body surface area Derived from formula 1.9 m2 Davide Reny [employer] Phone: [employer] Work Phone: 07-12-2021 14:39-0500 Body temperature 97.7 [degF] Davide Chao Work Phone: [place] [address] [place] Work Phone: 07-12-2021 14:39-0500 Body weight 80.8 kg Davide Chao Work Phone: [address] Work Phone: 07-12-2021 14:39-0500 Diastolic blood pressure 64 mm[Hg] Davide Chao Work Phone: [address] Work Phone: 07-12-2021 14:39-0500 Systolic blood pressure 116 mm[Hg] Davide Chao Work Phone: [address] Work Phone: 06-23-2021 20:00-0500 Body height 167.6 cm Gallito Couch MD Work Phone: [facility] 06-23-2021 20:00-0500 Body mass index (BMI) [Ratio] 27.95 kg/m2 Gallito Couch MD Work Phone: [employer] 06-23-2021 20:00-0500 Body temperature 98.4 [degF] Gallito Couch MD Work Phone: [facility] 06-23-2021 20:00-0500 Body weight 78.55 kg Gallito Couch MD Work Phone: [facility] 06-23-2021 20:00-0500 Diastolic blood pressure 66 mm[Hg] Gallito Couch MD Work Phone: [employer] 06-23-2021 20:00-0500 Heart rate 81 /min Gallito Couch MD Work Phone: [employer] 06-23-2021 20:00-0500 Respiratory rate 18 /min Gallito Couch MD Work Phone: [employer] 06-23-2021 20:00-0500 SaO2% (BldA) [Mass fraction] 98 % Gallito Couch MD Work Phone: [facility] 06-23-2021 20:00-0500 Systolic blood pressure 101 mm[Hg] Gallito Couch MD Work Phone: [facility] 05-17-2021 13:06-0500 Body height 167.6 cm Yuri Ramos MD Work Phone: [facility] 05-17-2021 13:06-0500 Body mass index (BMI) [Ratio] 26.26 kg/m2 Yuri Ramos MD Work Phone: [facility] 05-17-2021 13:06-0500 Body weight 73.8 kg Yuri Ramos MD Work Phone: [facility] 05-17-2021 13:06-0500 Diastolic blood pressure 65 mm[Hg] Yuri Ramos MD Work Phone: [facility] 05-17-2021 13:06-0500 Heart rate 80 /min Yuri Ramos MD Work Phone: [facility] 05-17-2021 13:06-0500 SaO2% (BldA) [Mass fraction] 95 % Yuri Ramos MD Work Phone: [facility] 05-17-2021 13:06-0500 Systolic blood pressure 97 mm[Hg] Yuri Ramos MD Work Phone: [facility] 03-17-2021 02:05-0400 Diastolic blood pressure 66 mm[Hg] Davide Chao Other Phone: [facility] 03-17-2021 02:05-0400 Heart rate 59 /min Davide Chao Other Phone: [facility] 03-17-2021 02:05-0400 Respiratory rate 16 /min Davide Chao Other Phone: [facility] 03-17-2021 02:05-0400 SaO2% (BldA) [Mass fraction] 96 % Davide Elderbrock Other Phone: [facility] 03-17-2021 02:05-0400 Systolic blood pressure 102 mm[Hg] Davide Espitiabrock Other Phone: [facility] 03-01-2021 06:50-0400 Diastolic blood pressure 63 mm[Hg] Davide Espitiabrock Other Phone: [facility] 03-01-2021 06:50-0400 Heart rate 60 /min Davide Espitiabrock Other Phone: [facility] 03-01-2021 06:50-0400 Respiratory rate 18 /min Davide Espitiabrock Other Phone: [facility] 03-01-2021 06:50-0400 SaO2% (BldA) [Mass fraction] 99 % Davide Espitiabrock Other Phone: [facility] 03-01-2021 06:50-0400 Systolic blood pressure 98 mm[Hg] Davide Espitiabrock Other Phone: [facility] 12-15-2020 02:09-0400 Diastolic blood pressure 72 mm[Hg] Davide Espitiabrock Other Phone: [facility] 12-15-2020 02:09-0400 Heart rate 74 /min Davide Espitiabrock Other Phone: [facility] 12-15-2020 02:09-0400 Respiratory rate 20 /min Davide Espitiabrock Other Phone: [facility] 12-15-2020 02:09-0400 SaO2% (BldA) [Mass fraction] 99 % Davide Espitiabrock Other Phone: [facility] 12-15-2020 02:09-0400 Systolic blood pressure 107 mm[Hg] Davide Espitiabrock Other Phone: [facility] 12-08-2020 03:30-0400 Diastolic blood pressure 68 mm[Hg] Davide Nupurbrock Other Phone: [facility] 12-08-2020 03:30-0400 Heart rate 61 /min Davide Chao Other Phone: [facility] 12-08-2020 03:30-0400 SaO2% (BldA) [Mass fraction] 98 % Davide Chao Other Phone: [facility] 12-08-2020 03:30-0400 Systolic blood pressure 103 mm[Hg] Davide Chao Other Phone: [facility] 12-08-2020 02:21-0400 Respiratory rate 16 /min Davide Chao Other Phone: [facility] 09-27-2020 12:09-0400 Body temperature 98.4 [degF] Barbara Sandoval MD Work Phone: [facility] 09-27-2020 12:09-0400 Diastolic blood pressure 76 mm[Hg] Barbara Sandoval MD Work Phone: [facility] 09-27-2020 12:09-0400 Heart rate 102 /min Barbara Sandoval MD Work Phone: [facility] 09-27-2020 12:09-0400 Respiratory rate 18 /min Barbara Sandoval MD Work Phone: [facility] 09-27-2020 12:09-0400 SaO2% (BldA) [Mass fraction] 100 % Barbara Sandoval MD Work Phone: [facility] 09-27-2020 12:09-0400 Systolic blood pressure 114 mm[Hg] Barbara Sandoval MD Work Phone: [facility] 09-26-2020 21:00-0400 Diastolic blood pressure 59 mm[Hg] Davide Chao Other Phone: [facility] 09-26-2020 21:00-0400 Heart rate 66 /min Davide Nupuragusto Other Phone: [facility] 09-26-2020 21:00-0400 Respiratory rate 18 /min Davide Espitiaagusto Other Phone: [facility] 09-26-2020 21:00-0400 SaO2% (BldA) [Mass fraction] 99 % Davide Chao Other Phone: [facility] 09-26-2020 21:00-0400 Systolic blood pressure 95 mm[Hg] Davide Chao Other Phone: [facility] 09-26-2020 19:57-0400 Diastolic blood pressure 85 mm[Hg] Generic [facility] Work Phone: [facility] 09-26-2020 19:57-0400 Heart rate 75 /min Generic [facility] Work Phone: [facility] 09-26-2020 19:57-0400 Respiratory rate 16 /min Generic [facility] Work Phone: [facility] 09-26-2020 19:57-0400 Systolic blood pressure 121 mm[Hg] Generic [facility] Work Phone: [facility] 09-26-2020 16:40-0400 Body height 167.6 cm Davide Espitiaagusto Other Phone: [facility] 09-26-2020 16:40-0400 Body temperature 98.6 [degF] Davide Chao Other Phone: [facility] 09-26-2020 16:40-0400 Body weight 72.7 kg Davide Espitiaagusto Other Phone: [facility] 09-01-2018 22:18-0400 BP Diastolic 79 mm[Hg] Tony Castillo [facility] 09-01-2018 22:18-0400 BP Systolic 108 mm[Hg] Tony Anna [facility] 09-01-2018 22:18-0400 Pulse (Heart Rate) 73 /min Tony Pabloal [facility] 09-01-2018 22:18-0400 Pulse Oximetry 100 % Tony Pabloal [facility] 09-01-2018 22:18-0400 Respiratory Rate 16 /min Tony Anna [facility] 09-01-2018 16:13-0400 BMI (Body Mass Index) 21.95 kg/m2 Tony Castillo [facility] 09-01-2018 16:13-0400 Body Temperature 98.01 [degF] Tony Castillo [facility] 09-01-2018 16:13-0400 Height 167.6 cm Tony Castillo [facility] 09-01-2018 16:13-0400 Weight 61.69 kg Tony Castillo [facility] Encounters Encounter Date Encounter Type Care Provider Facility Start: 01-05-2025 ambulatory Melissa Gomez cility:[facility] Start: 01-03-2025 End: 01-03-2025 Patient encounter procedure Jeanette Roach [facility] Work Phone: Start: 01-03-2025 End: 01-03-[address] Davide Chao MD Work Phone: -[facility] Start: 12-31-2024 ambulatory DEVAN FARMINGTON Facility:[facility] Start: 12-31-[address] Davide calloway MD Work Phone: -Cardiovascular Services Work Phone: Start: 12-24-2024 ambulatory DAVIDE CHAO [facility] Start: 12-20-2024 ambulatory Melissa Gomez cility:[facility] Start: 12-20-2024 Non-patient / Non-visit Dr. César Brasher DO -[facility] Start: 12-20-2024 End: 12-20-[address] Davide Chao MD Work Phone: -Radiology [facility] Start: 12-20-2024 End: 12-20-[address] Melissa Brasher DO -Radiology [facility] Work Phone: Start: 12-20-2024 End: 12-20-2024 ambulatory Melissa Brasher Facility:[facility] Start: 12-06-2024 End: 12-06-2024 [facility] Start: 12-03-2024 Non-patient / Non-visit Dr. Bre hutton MD -[facility] Work Phone: Start: 11-23-2024 End: 11-23-2024 Emergency department patient visit Dr. Davide Chao MD Work Phone: -Emergency Department Work Phone: Start: 11-15-2024 End: 11-15-[address] Davide Chao MD Work Phone: [facility] Work Phone: Start: 11-15-2024 End: 11-15-2024 Patient encounter procedure Jeanette Roach CNM -Lab [facility] Start: 11-15-2024 End: 11-15-2024 ambulatory Jeanette Roach Facility:[facility] Start: 11-11-2024 End: 11-11-[address] Davide Chao MD Work Phone: [facility] Work Phone: Start: 11-11-2024 End: 11-11-[address] Melissa Brasher DO -Laboratory Work Phone: Start: 11-11-2024 End: 11-11-2024 ambulatory Melissa Brasher Facility:[facility] Start: 10-26-2024 End: 10-26-[address] Davide Chao MD Work Phone: [facility] Work Phone: Start: 10-26-2024 End: 10-26-[address] Melissa Brasher DO -Laboratory Work Phone: Start: 10-26-2024 End: 10-26-2024 ambulatory [facility] Start: 09-12-2024 End: 11-12-2024 Follow-up encounter Marina Snell APRN.CNP Work Phone: OB/Gynecology Start: 09-12-2024 End: 09-12-2024 Telephone encounter Davide Chao MD Work Phone: [facility] [place] Comment on above: Faxed to [facility] Start: 09-10-2024 End: 09-10-2024 ambulatory [employer] Work Phone: OB/Gynecology Start: 09-10-2024 End: 09-10-2024 Patient encounter procedure Us [employer] OB/Gynecology Start: 09-05-2024 End: 09-05-2024 ambulatory DAVIDE CHAO Facility:[facility] Start: 09-05-2024 End: 09-05-2024 Patient encounter procedure Marina Snell APRN.LIFTER DRIVER Work Phone: OB/Gynecology Comment on above: Uterine cyst (Primar y Dx); Adenomyosis of uterus Start: 08-21-2024 End: 08-21-[address] Davide Chao MD Work Phone: [facility] Work Phone: Start: 08-21-2024 End: 08-21-[address] Melissa Brasher DO -Ultrasound, [facility] Work Phone: Start: 08-21-2024 End: 08-21-2024 ambulatory Melissa Brasher Facility:[facility] Start: 08-19-2024 End: 08-19-[address] Davide Chao MD Work Phone: [facility] Work Phone: Start: 08-19-2024 End: 08-19-[address] Melissa Brasher DO -Laboratory, Specimen Work Phone: Start: 08-19-2024 End: 08-19-[address] Melissa Brasher DO -[facility] Work Phone: Start: 08-19-2024 End: 08-19-2024 ambulatory Melissa Brasher Facility:[facility] Start: 08-19-2024 End: 10-19-2024 Follow-up encounter Davide Chao MD Work Phone: Family [facility] Start: 08-19-2024 End: 08-19-2024 ambulatory Melissa Brasher Facility:[facility] Start: 08-16-2024 End: 08-16-2024 ambulatory DAVIDE CHAO Facility:[facility] Start: 08-15-2024 ambulatory [facility] Start: 08-14-2024 End: 08-15-2024 Telephone encounter Davide Chao MD Work Phone: [facility] Comment on above: Results (labs) Start: 08-12-2024 End: 08-12-2024 Follow-up encounter Davide Chao MD Work Phone: Family [facility] Start: 08-12-2024 End: 08-12-2024 ambulatory DAVIDE CHAO Facility:[facility] Start: 08-06-2024 End: 08-06-2024 Distance Health Davide Chao MD Work Phone: [facility] Comment on above: Elevated blood press ure reading without diagnosis of hypertension (Primary Dx); Fibromyalgia; Anxiety with depression; ADHD (attention deficit hyperactivity disorder), combined type Start: 07-24-2024 End: 07-24-2024 Patient encounter procedure Laura Salinas CNM -Lab, [facility] Start: 07-24-2024 End: 07-24-2024 ambulatory Laura Salinas Facility:[facility] Start: 06-10-2024 End: 06-10-2024 Patient encounter procedure Davide Chao MD Work Phone: [facility] Comment on above: Anxiety (Primary Dx) ; Elevated blood pressure reading without diagnosis of hypertension; ADHD (attention deficit hyperactivity disorder), combined type Start: 06-10-2024 End: 06-10-2024 ambulatory DAVIDE CHAO Facility:[facility] Start: 06-10-2024 End: 06-10-2024 ambulatory Love Castillo NP Facility:[facility] Start: 04-19-2024 End: 04-19-2024 ambulatory Laura Salinas Facility:[facility] Start: 04-19-2024 End: 04-19-2024 ambulatory Laura Salinas Facility:[facility] Start: 03-29-2024 End: 03-29-2024 ambulatory Davide Chao MD Work Phone: [facility] Comment on above: Eosinophilic esophag itis (Primary Dx); Anxiety with depression; Dysphagia, unspecified type Start: 03-29-2024 End: 03-29-2024 Telemedicine consultation with patient Davide Chao MD Work Phone: [facility] Start: 03-26-2024 End: 03-26-2024 ambulatory Davide Chao MD Work Phone: [facility] Comment on above: Advice Start: 03-22-2024 End: 03-22-2024 Emergency department patient visit RAMON PULLIAM MD [facility] Start: 03-22-2024 End: 03-22-2024 Telephone encounter Davide Chao MD Work Phone: [facility] Comment on above: Chest Pain Start: 03-22-2024 End: 03-22-2024 Emergency department patient visit ANTONETTE MENDEZ [facility] Start: 12-28-2023 Telephone encounter Davide deng MD Work Phone: [facility] Comment on above: Medication Request Start: 12-08-2023 End: 12-08-2023 ambulatory Davide Chao MD Work Phone: [facility] Comment on above: Anxiety with depress ion (Primary Dx) Start: 12-08-2023 End: 12-08-2023 Telemedicine consultation with patient Davide Chao MD Work Phone: [facility] Start: 11-03-2023 End: 11-03-2023 ambulatory Davide Chao MD Work Phone: [facility] Comment on above: Fibromyalgia (Primar y Dx); Anxiety with depression; Near syncope; URI, acute Start: 11-03-2023 End: 11-03-2023 Telemedicine consultation with patient Davide Chao MD Work Phone: [facility] Start: 11-01-2023 Refill Davide haq MD Work Phone: [facility] Comment on above: Refill Request Start: 10-18-2023 Telephone encounter Rayo Nielson PA-C Work Phone: [facility] Start: 10-17-2023 End: 10-17-2023 ambulatory DAVIDE CHAO Facility:[facility] Start: 10-17-2023 End: 10-17-2023 Office outpatient visit 25 minutes Rayo Nielson PA-C Work Phone: [facility] Comment on above: Near syncope (Primar y Dx) Start: 10-03-2023 Non-patient / Non-visit Dr. Richi Chao Work Phone: [facility] Start: 10-03-2023 End: 10-03-2023 Admission to same day surgery center Dr. Davide [facility]ao [facility] Start: 10-03-2023 End: 10-03-[address] Davide Chao Work Phone: [facility] Work Phone: Start: 09-04-2023 End: 09-04-[address] Davide Chao Work Phone: [facility] Work Phone: Start: 08-11-2023 ambulatory Davide haq MD Work Phone: [facility] Comment on above: Supplement Start: 08-10-2023 End: 08-10-2023 Patient encounter procedure Roberto Andrea APRN.CNP Work Phone: [facility] Comment on above: Viral syndrome (Prim james Dx); Urinary frequency Start: 07-13-2023 End: 07-13-[address] Davide Chao Work Phone: [facility] Work Phone: Start: 07-13-2023 End: 07-13-[address] Davide Chao Work Phone: [facility]-Ultrasound, WC Work Phone: Start: 07-11-2023 Refill Davide haq MD Work Phone: [facility] Comment on above: Refill Request Start: 06-28-2023 End: 06-28-[address] Davide Chao Work Phone: [facility] Work Phone: Start: 06-28-2023 End: 06-28-[address] Davide Chao Work Phone: [facility]-Laboratory, Specimen Work Phone: Start: 06-28-2023 End: 06-28-[address] Davide Chao Work Phone: [facility] Work Phone: Start: 06-28-2023 End: 06-28-[address] Davide Chao Work Phone: [facility] Work Phone: Start: 06-09-2023 End: 06-09-2023 Subsequent hospital visit by physician Alina Alvarado MD Work Phone: [facility] [employer] Comment on above: Arrived Start: 06-06-2023 End: 06-07-2023 Emergency department patient visit Son Gunderson MD Work Phone: [facility] Emergency Medicine Comment on above: Vaginal bleeding (Pr imary Dx) Start: 05-31-2023 ambulatory ALINA ALVARADO [facility] Start: 05-31-2023 End: 05-31-2023 Subsequent hospital visit by physician Alina Alvarado MD Work Phone: [facility] [employer] Comment on above: Arrived Start: 05-08-2023 Refill Davide haq MD Work Phone: [facility] Comment on above: Refill Request Start: 04-07-2023 Telephone encounter Davide deng MD Work Phone: [facility] Comment on above: Patient Question Start: 03-28-2023 End: 03-28-2023 ambulatory Davide Chao MD Work Phone: [facility] Comment on above: Anxiety with depress ion (Primary Dx); Bilateral leg edema; Anemia, unspecified type; Elevated liver function tests Start: 03-28-2023 End: 03-28-2023 Telemedicine consultation with patient Davide Chao MD Work Phone: [facility] Start: 03-18-2023 Non-patient / Non-visit Dr. Richi Chao Work Phone: [facility] Start: 03-18-2023 End: 03-18-[address] Davide Chao Work Phone: [facility] Work Phone: Start: 03-18-2023 End: 03-18-[address] Davide Chao Work Phone: [facility]-Women's [place], Outpatients Work Phone: Start: 03-18-2023 End: 03-18-2023 Emergency department patient visit DAVIDE CHAO [facility] Start: 03-13-2023 Non-patient / Non-visit Dr. Richi Chao Work Phone: [facility] Start: 03-13-2023 End: 03-13-2023 Emergency department patient visit Edy Orellana MD Work Phone: [facility] Comment on above: Hypertension, unspec ified type (Primary Dx); induced hypertension, antepartum Start: 03-12-2023 Non-patient / Non-visit Dr. Richi Chao Work Phone: [facility] Start: 03-11-2023 Non-patient / Non-visit Dr. Richi Chao Work Phone: [facility] Start: 03-10-2023 Non-patient / Non-visit Dr. Richi Chao Work Phone: [facility] Start: 03-09-2023 Non-patient / Non-visit Dr. Richi Chao Work Phone: [facility] Start: 03-09-2023 End: 03-11-2023 Evaluation and management of inpatient Dr. Davide Chao Work Phone: [facility] Work Phone: Start: 03-09-2023 End: 03-09-[address] Davide Chao Work Phone: [facility] Work Phone: Start: 03-08-2023 Non-patient / Non-visit Dr. Richi Chao Work Phone: [facility] Start: 03-08-2023 End: 03-08-[address] Davide Chao Work Phone: [facility], Outpatients Work Phone: Start: 03-04-2023 Non-patient / Non-visit Dr. Richi Chao Work Phone: [facility] Start: 03-04-2023 End: 03-04-[address] Davide Chao Work Phone: [facility] Work Phone: Start: 03-04-2023 End: 03-04-[address] Davide Chao Work Phone: [facility], Outpatients Work Phone: Start: 03-04-2023 End: 03-04-[address] Davide Chao Work Phone: [facility] Work Phone: Start: 03-04-2023 End: 03-04-[address] Davide Chao Work Phone: [facility], Outpatients Work Phone: Start: 03-03-2023 End: 03-03-[address] Davide Chao Work Phone: [facility] Ultrasound Work Phone: Start: 03-01-2023 End: 03-01-[address] Davide Chao Work Phone: [facility], Outpatients Work Phone: Start: 02-28-2023 End: 02-28-[address] Davide Chao Work Phone: [facility] Work Phone: Start: 02-28-2023 End: 02-28-[address] Davide Chao Work Phone: [facility]-Ultrasound, [facility] Work Phone: Start: 02-24-2023 End: 02-24-[address] Davide Chao Work Phone: [facility]-Outpatient [place] [facility] Work Phone: Start: 02-22-2023 End: 02-22-[address] Davide Chao Work Phone: [facility] Work Phone: Start: 02-22-2023 End: 02-22-[address] Davide Chao Work Phone: [facility]-Outpatient Pavilion Ultrasound Work Phone: Start: 02-18-2023 Non-patient / Non-visit Dr. Richi Chao Work Phone: [facility] Start: 02-18-2023 End: 02-18-[address] Davide Chao Work Phone: [facility] Work Phone: Start: 02-18-2023 End: 02-18-[address] Davide Chao Work Phone: [facility], Outpatients Work Phone: Start: 02-17-2023 End: 02-17-[address] Davide Chao Work Phone: [facility]-Laboratory, Specimen Work Phone: Start: 02-17-2023 End: 02-17-[address] Davide Chao Work Phone: [facility] Work Phone: Start: 02-02-2023 End: 02-02-[address] Davide Chao Work Phone: [facility] Work Phone: Start: 02-01-2023 End: 02-01-[address] Davide Chao Work Phone: [facility] Work Phone: Start: 01-30-2023 Non-patient / Non-visit Dr. Richi Chao Work Phone: [facility] Start: 01-30-2023 Telephone encounter Davide deng MD Work Phone: [facility] [place] Comment on above: Pain, Back; yellowin g of sclera Start: 01-30-2023 End: 01-30-[address] Davide Chao Work Phone: [facility] Work Phone: Start: 01-30-2023 End: 01-30-[address] Davide Chao Work Phone: [facility], Outpatients Work Phone: Start: 01-27-2023 End: 01-27-2023 Patient encounter procedure Marilyn Gruber APRN.LIFTER DRIVER Work Phone: [facility] Comment on above: STD (sexually transm itted disease) (Primary Dx) Start: 01-23-2023 End: 01-23-2023 Emergency department patient visit Dr. Davide Chao Work Phone: [facility]-Emergency Department Work Phone: Start: 01-16-2023 Non-patient / Non-visit Dr. Richi Chao Work Phone: [facility] Start: 01-16-2023 End: 01-16-[address] Davide Chao Work Phone: [facility], [facility] Work Phone: Start: 01-16-2023 End: 01-16-[address] Davide Chao Work Phone: [facility] Work Phone: Start: 12-21-2022 End: 12-21-[address] Davide Chao Work Phone: [facility] Work Phone: Start: 11-29-[address] Davide Chao Facility:[id number] Start: 11-29-2022 Patient encounter procedure [facility] Work [facility] Start: 11-25-2022 End: 11-25-[address] Davide Chao Work Phone: [facility] Work Phone: Start: 11-11-2022 End: 11-11-[address] Davide Chao Work Phone: [facility] Work Phone: Start: 11-11-2022 End: 11-11-[address] Davide Chao Facility:[id number] Start: 11-11-2022 End: 11-11-2022 Subsequent hospital visit by physician Andry Rueda MD Work Phone: [facility] Comment on above: Lower abdominal pain , unspecified; Antepartum hemorrhage, unspecified, second trimester; Maternal care for other rhesus isoimmunization, second trimester, not applicable or unspecified; 21 weeks gestation of Start: 11-10-[address] Davide Chao Facility:[id number] Start: 11-04-2022 ambulatory [facility] Start: 11-04-2022 End: 11-04-2022 Subsequent hospital visit by physician Alina Alvarado MD Work Phone: [facility] [employer] Comment on above: Arrived Start: 11-04-2022 End: 11-04-[address] Davide Chao Work Phone: [facility] Work Phone: Start: 11-04-2022 End: 11-04-[address] Davide Chao Work Phone: [facility]-Outpatient Pavilion Ultrasound Start: 11-03-2022 [id number], Provider : Katalina Roach, Status: Pen, Time: 11:30 AM Davide Chao Work Phone: [facility] Work Phone: Start: 11-01-2022 Patient encounter procedure Davide Chao Work Phone: [facility] Work Phone: Start: 11-01-[address] Davide Chao Facility:[id number] Start: 10-28-2022 End: 10-28-[address] Davide Chao Work Phone: [facility] Start: 10-18-2022 Patient encounter procedure [facility]ao [facility] Work Phone: Start: 10-18-[address] Davide Chao Facility:[id number] Start: 10-10-2022 Telephone encounter Davide deng MD Work Phone: [facility] Comment on above: Referral Request Start: 10-10-2022 End: 10-10-2022 ambulatory DAVIDE CHAO [facility] Start: 09-28-2022 End: 09-28-[address] Davide Chao Work Phone: [facility] Work Phone: Start: 09-28-2022 End: 09-28-[address] Davide Chao Work Phone: [facility]-Laboratory, Specimen Start: 09-28-2022 End: 09-28-[address] Davide Chao Work Phone: [facility] Start: 09-11-2022 End: 09-12-2022 Emergency department patient visit Byron Grantwaylon [facility] 09 Start: 09-10-2022 End: 09-11-2022 Emergency department patient visit Dr. John Valladares Facility:[id number] Start: 08-17-2022 End: 08-17-[address] Davide Chao Work Phone: [facility] Work Phone: Start: 08-17-2022 End: 08-17-[address] Davide Chao Work Phone: [facility]-Laboratory, Specimen Start: 08-17-2022 End: 08-17-[address] Davide Chao Work Phone: [facility] Start: 08-10-[address] Davide Chao Facility:[id number] Start: 08-03-2022 End: 08-03-[address] Davide Chao Work Phone: [facility]-Ultrasound, [facility] Start: 08-02-2022 End: 08-02-2022 Emergency department patient visit ANDRY ECKERT [facility] Start: 07-30-2022 End: 07-31-2022 [facility] Start: 07-30-2022 End: 07-30-2022 Subsequent hospital visit by physician Davide Chao Work Phone: [facility] Start: 07-29-2022 End: 07-29-[address] Davide Chao Work Phone: [facility] Work Phone: Start: 07-29-2022 End: 07-29-[address] Davide Chao Work Phone: [facility] Start: 07-28-2022 End: 07-30-2022 ambulatory YANIV PEDERSON [facility] Start: 07-28-2022 End: 07-30-2022 Subsequent hospital visit by physician [facility] Comment on above: Acute bilateral low back pain with right-sided sciatica; , unspecified gestational age , unspecifi ed gestational age Start: 07-26-2022 End: 07-26-2022 Emergency department patient [facility] Start: 07-14-2022 Emergency department patient [facility] Start: 07-13-2022 End: 07-14-2022 Emergency department patient visit Nery Esparza MD Work Phone: [facility] ED Comment on above: Back strain, initial encounter (Primary Dx) Start: 06-21-2022 End: 06-21-2022 ambulatory Davide Chao MD Work Phone: [facility] [place] Comment on above: Chronic insomnia (Pr imary Dx); Anxiety with depression; Gastritis without bleeding, unspecified chronicity, unspecified gastritis type Start: 06-21-2022 End: 06-21-2022 Telemedicine consultation with patient Davide Chao MD Work Phone: [facility] [place] Start: 05-09-2022 End: 05-09-2022 Emergency department patient visit DIPAK [facility] Start: 03-04-2022 End: 03-04-2022 ambulatory Davide Chao MD Work Phone: [facility] [place] Comment on above: Anxiety with depress ion (Primary Dx) Start: 03-04-2022 End: 03-04-2022 Telemedicine consultation with patient Davide Chao MD Work Phone: [facility] [place] Start: 03-03-2022 ambulatory Davide haq MD Work Phone: [facility] [place] Comment on above: Medications Start: 11-29-2021 E-mail encounter fro m caregiver [facility] Provider [facility] [place] Start: 11-29-2021 Follow-up encounter [facility] Provider [facility] Odilia [place] Comment on above: Follow up Start: 11-29-2021 End: 11-29-2021 ambulatory Davide Chao MD Work Phone: [facility] [place] Comment on above: Anxiety Start: 11-29-2021 End: 11-29-2021 Telemedicine consultation with patient Davide Chao MD Work Phone: [facility] [place] Start: 11-21-2021 End: 11-21-2021 ambulatory MIREYA DEWITT [facility] Start: 11-21-2021 End: 11-21-2021 Office outpatient visit 15 minutes Mireya Dewitt [facility] Work Phone: [facility] [place] Comment on above: Non-recurrent acute suppurative otitis media of left ear without spontaneous rupture of tympanic membrane (Primary Dx) Start: 11-16-[address] Davide Chao Facility:[id number] Start: 10-12-2021 End: 10-14-2021 Evaluation and management of inpatient Andry Erica Rueda [facility] L&D 405 Start: 10-11-2021 Chart Update Davide Gregg ock Work Phone: [facility] Work Phone: Start: 10-08-2021 ambulatory MD ANDRY RUEDA Facility:[id number] Start: 10-01-2021 Office outpatient vi sit 15 minutes Davide Chao Work Phone: [facility] Work Phone: Start: 10-01-2021 ambulatory MD ANDRY RUEDA Facility:[id number] Start: 09-27-2021 Chart Update Davide Gregg ock Work Phone: [facility] Work Phone: Start: 09-24-2021 Office outpatient vi sit 10 minutes Davide Chao Work Phone: [facility] Work Phone: Start: 09-24-[address] Anil Michaels cility:[id number] Start: 09-20-2021 Chart Update Davide Gregg ock Work Phone: [facility] Work Phone: Start: 09-17-[address] Davide Chao Facility:[id number] Start: 09-10-2021 Office outpatient vi sit 15 minutes Davide Chao Work Phone: [facility] Work Phone: Start: 09-10-[address] Davide Chao Facility:[id number] Start: 08-31-2021 AUDIT Davide Gregg ock Work Phone: [facility] [employer] Work Phone: Start: 08-27-[address] Davide callaway [facility] Facility:[id number] Start: 08-27-2021 Office outpatient vi sit 15 minutes Davide Reny Zhanna Work Phone: [facility] [employer] Work Phone: Start: 08-13-2021 ambulatory MD ANDRY RUEDA Facility:[id number] Start: 08-06-2021 Chart Update Davide Gregg ock Work Phone: [facility] [employer] Work Phone: Start: 07-30-2021 Office outpatient vi sit 15 minutes Davide Reny Zhanna Work Phone: [facility] [employer] Work Phone: Start: 07-12-2021 Office outpatient vi sit 15 minutes Davide Rney Zhanna Work Phone: [facility] Work Phone: Start: 06-23-2021 End: 06-23-2021 Subsequent hospital visit by physician Gallito Couch MD Work Phone: [facility] Start: 05-17-2021 End: 05-21-2021 ambulatory [facility] Start: 05-17-2021 End: 05-17-2021 Office outpatient new 45 minutes Maricel Barfield MD Work Phone: [facility] Comment on above: Palpitations (Primar y Dx) Start: 05-12-2021 End: 05-13-2021 Emergency department patient visit [facility] Start: 05-09-2021 End: 05-10-2021 Emergency department patient visit [facility] Start: 03-16-2021 End: 03-17-2021 Emergency department patient visit Cheyanne Izaguirre [facility] Emergency 10 Start: 03-01-2021 End: 03-01-2021 Emergency department patient visit Son Gunderson [facility] Emergency 12 Start: 02-12-2021 Patient requested procedure [facility] Provider [facility] Work Phone: Start: 12-14-2020 End: 12-15-2020 Emergency department patient visit Cheyanne Reny Izaguirre [facility] Emergency 04 Start: 12-08-2020 End: 12-08-2020 Emergency department patient visit Davide Blount [facility] Emergency 16 Start: 09-27-2020 End: 09-27-2020 Emergency [facility] Start: 09-27-2020 End: 09-27-2020 Emergency department patient visit Barbara Sandoval MD Work Phone: [facility] Emergency Department Start: 09-26-2020 End: 09-26-2020 ambulatory [facility] Start: 09-26-2020 End: 09-26-2020 Evaluation and management of inpatient Generic [facility] Work Phone: [facility] Intermediate Start: 09-26-2020 End: 09-26-2020 Emergency department patient visit Rm Veras [facility] Emergency 02 Start: 08-12-2020 End: 08-12-2020 Transcribe Orders Davide Espitiamadison Work Phone: [facility] Comment on above: Cervical pain (Prima ry Dx) Start: 09-18-2018 Emergency department patient visit UNKNOWN PROVIDER [facility] Start: 09-01-2018 End: 09-01-2018 Emergency department patient visit Tony Gilmansame Egdomingo Work Phone: [facility] Emergency Department Comment on above: Kidney stone on left side (Primary Dx) Start: 08-31-2018 End: 09-01-2018 Emergency department patient visit HITESH RESTREPO [facility] Start: 08-22-2018 Emergency department patient visit UNKNOWN PROVIDER [facility] Start: 08-17-2018 End: 08-17-2018 ambulatory UNKNOWN PROVIDER Facility:[facility] Start: 07-12-2018 End: 07-12-2018 Patient encounter procedure RENETTA SOW Facility:[facility] Start: 06-21-2018 End: 06-21-2018 Patient encounter procedure RENETTA VITEBSKIY Facility:[facility] Start: 11-25-2017 End: 11-25-2017 Emergency department patient visit Kam Crandall Facility:[facility] Procedures Date Procedure Procedure Detail Performing [...] - 214.0 Postmenopausal 0.0 - 0.1Performed at: [place] [id number] Director: Maximilian Hunt PhD, Phone: [phone] Start: 09-10-2024 Us pelvic nonobstetric real-time image complete Marina Snell APRN.CNP Work Phone: Start: 08-21-[address] Davide Chao MD Work Phone: Start: 08-19-2024 Liquid based cervical cytology screening Dr. Davide Choa MD Work Phone: Comment on above: EPITHELIAL [...] Result Comment: URINALYSIS Performed By: #### 2 [id number] ####[facility],[address] [place] [address] Start: 10-03-[address] Davide Chao Work Phone: Start: 08-10-2023 INFLUENZA A&B MOLECULAR (POC) Roberto Andrea APRN.LIFTER DRIVER Work Phone: Start: 08-10-2023 Urnls dip stick/tablet rgnt auto w/o microscopy Roberto Andrea APRN.LIFTER DRIVER Work Phone: Start: 07-13-[address] [...] Start: 03-18-2023 EXTRA URINE GILBERT TUBE [facility] Start: 03-18-2023 Hepatic function 2000 panel - Serum or Plasma DAVIDE [facility] Start: 03-18-2023 Lactate dehydrogenase [Enzymatic activity/volume] in Serum or Plasma DAVIDE [facility] Start: 03-18-2023 Urate [Mass/volume] in Serum or Plasma DAVIDE [facility] Start: 03-18-2023 URINALYSIS WITH REFLEX MICROSCOPIC AND CULTURE DAVIDE [facility] Start: 03-18-2023 CBC W Auto Differential panel - Blood DAVIDE [facility] Start: 03-13-2023 DISCHARGE PATIENT [facility] Start: 03-13-2023 INITIATE REQUEST TO ANOTHER FACILITY [facility] Start: 03-13-2023 Bacteria identified in Urine by Culture DAVIDE [facility] Start: 03-13-2023 URINALYSIS MICROSCOPIC ONLY [facility] Start: 03-13-2023 URINALYSIS WITH REFLEX MICROSCOPIC AND CULTURE [facility]IDE [facility] Start: 03-13-2023 XR CHEST 1 VIEW DAVIDE [facility] Start: 03-13-2023 aPTT in Blood by Coagulation assay [facility]IDE [facility] Start: 03-13-2023 Basic metabolic 2000 panel - Serum or Plasma [facility]IDE [facility] Start: 03-13-2023 C-reactive protein DAVIDE [facility] Start: 03-13-2023 CBC W Auto Differential panel - Blood DAVIDE [facility] Start: 03-13-2023 Hepatic function 2000 panel - Serum or Plasma DAVIDE [facility] Start: 03-13-2023 Lactate [Moles/volume] in Serum or Plasma DAVIDE [facility] Start: 03-13-2023 Magnesium [Mass/volume] in Serum or Plasma DAVIDE [facility] Start: 03-13-2023 Natriuretic peptide B [Mass/volume] in Blood DAVIDE [facility] Start: 03-13-2023 Phosphate [Mass/volume] in Serum or Plasma DAVIDE [facility] Start: 03-13-2023 PROTIME-INR DAVIDE [facility] Start: 03-13-2023 TROPONIN I, HIGH SENSITIVITY DAVIDE [...] on above: Performed By: #### T+S #### [place] [address] Start: 11-11-2022 Antibody screen Andry Rueda MD [...] 06-23-2021 RAPID TOX SCREEN WITH RELEX TO [facility] Gallito Couch MD Work Phone: Start: 06-23-2021 Urinalysis, reagent strip without microscopy Gallito Couch MD Work Phone: Start: 05-17-2021 Referral to cardiology service Maricel Barfield MD Work Phone: Start: 12-14-2020 End: 12-14-2020 EKG impression Deyvi Peter Start: 12-08-2020 End: 12-08-2020 EKG impression Davide Blount Start: 09-26-2020 End: 09-26-2020 EKG impression Byron Aranda Start: 10-11-2018 Follow-up visit Start: 09-01-2018 CT [...] Phone: Start: 09-01-2018 LIGHT BLUE TOP Tony Roe [place]gal Work Phone: Start: 09-01-2018 LIGHT GREEN TOP Tony Roe Egal Work Phone: Start: 09-01-2018 Lipase [Enzymatic activity/volume] in Serum or Plasma Davide Marion Work Phone: Start: 09-01-2018 RAINBOW DRAW Tony Roe Egal Work Phone: Start: 09-01-2018 Choriogonadotropin ( test) [Presence] in Urine Tony Gilmansame Egal Work Phone: Start: 09-01-2018 Urinalysis Tony Ferrarime Egal Work Phone: Start: 08-17-2018 UROLOGY SERVICE [...] of 2) Zoster Vaccines (1 of 2) [facility] Start: 08-19-2029 Screening for malignant neoplasm of cervix Cervical Cancer Screening [facility] Start: 05-04-2026 DTaP/Tdap/Td vaccine (2 - Td or Tdap) DTaP/Tdap/Td vaccine (2 - Td or Tdap) [facility] Start: 05-04-2026 DTaP/Tdap/Td Vaccines (2 - Td or Tdap) DTaP/Tdap/Td Vaccines (2 - Td or Tdap) [facility] Start: 05-04-2026 Tetanus vaccination [facility] Start: 05-04-2026 Urine microalbumin profile [facility] Start: 01-07-2026 HPV TESTING HPV TESTING [facility] Start: 01-07-2026 PAP TESTING PAP TESTING [facility] Start: 01-07-2026 Screening for malignant neoplasm of cervix [facility] Start: 02-03-2025 Influenza vaccination Influenza Vaccine (Season Ended) [facility] Start: 01-03-2025 Choriogonadotropin ( test) [Presence] in Serum or Plasma [facility] Start: 01-03-2025 Serum progesterone measurement [facility] Start: 11-23-2024 [facility] Start: 11-23-2024 End: 11-23-2024 [facility] Start: 09-10-2024 End: 09-10-2024 ambulatory 09/10/2024 2:00 PM EDT Procedure OB/Gynecology [address] [place] [address] Remote, [employer] [address] [place] [address] Uterine cyst [N85.8]; Adenomyosis of uterus [N80.03] OB/Gynecology Comment on above: Uterine cyst [N85.8]; Adenomyosis of nikolski lizzy [N80.03] Start: 09-09-2024 End: 09-09-2024 Patient encounter procedure 09/09/2024 12:40 PM EDT Office Visit Family Odilia [facility] [address] [place], [place] [address] Davide Chao MD [address] [place], [place] [address] 3 month follow up Family [facility]ilia [facility] Comment on above: 3 month follow up Start: 09-05-2024 End: 09-05-2025 US Pelvis PELVIC US [facility] Anc Imaging Routine Uterine cyst Adenomyosis of uterus Expected: 09/05/2024, Expires: 09/05/2025 [facility] Work Phone: Comment on above: Expected: 09/05/2024, Expires: 6 Start: 08-15-2024 End: 11-14-2024 Folate [Mass/volume] in Serum or Plasma FOLATE, SERUM Lab Routine Fatigue, unspecified type Expected: 08/15/2024, Expires: 11/14/2024 [facility] Comment on above: Expected: 08/15/2024, Expires: Start: 08-15-2024 End: 11-14-2024 Iron and Iron binding capacity panel - Serum or Plasma IRON AND TIBC Lab Routine Fatigue, unspecified type Expected: 08/15/2024, Expires: 11/14/2024 [facility] Work Phone: Comment on above: Expected: 08/15/2024, Expires: Start: 03-29-2024 End: 03-29-2024 ambulatory 03/29/2024 11:40 AM EDT [facility] [place] [address] [place] [address] Davide Chao MD [address] [place] [address] Chest pain, ER visit-nothing found, can't swallow [facility] [place] Comment on above: Chest pain, ER visit-nothing found, can' t swallow Start: 02-04-2024 Covid-19 Vaccine () Covid-19 Vaccine () [facility] Start: 02-04-2024 Influenza vaccination Influenza Vaccine (#1) [facility] Start: 10-17-2023 End: 01-16-2024 Basic metabolic 2000 panel - Serum or Plasma [facility] Work Phone: Comment on above: Expected: 10/17/2023, Expires: Start: 10-17-2023 End: 01-16-2024 Thyrotropin [Units/volume] in Serum or Plasma [facility] Comment on above: Expected: 10/17/2023, Expires: 4 Start: 10-03-2023 Patient discharge [facility] Start: 10-03-2023 Procedure discontinued [facility] Start: 10-03-2023 Ambulation without limitation [facility] Start: 10-03-2023 Medical regimen orders management [facility] Start: 10-03-2023 Medication education [facility] Start: 10-03-2023 Taking patient vital signs [facility] Start: 10-03-2023 Vital signs measurements [facility] Start: 10-03-2023 [facility] Start: 06-28-2023 Assay of thyroid stimulating hormone tsh ASSAY THYROID STIM HORMONE [facility] Start: 06-28-2023 Blood count complete auto&auto difrntl wbc COMPLETE CBC W/AUTO DIFF WBC [facility] Start: 06-28-2023 Collection venous blood venipuncture ROUTINE VENIPUNCTURE [facility] Start: 06-19-2023 End: 06-19-2023 Patient encounter procedure 06/19/2023 1:00 PM EST Office Visit [facility] [address] [place] [address] Alina Alvarado MD [address] [facility] [place] [address] [facility] Start: 06-09-2023 End: 06-09-2023 Patient encounter procedure 06/09/2023 1:00 PM EST Appointment [employer] [address] [place] [address] Alina Alvarado MD [address] [place] [address] [employer] Start: 06-06-2023 End: 06-06-2023 Patient encounter procedure 06/06/2023 1:45 PM EST Office Visit [facility] [address] [place] [address] Alina Alvarado MD [address] 1[address] floor [facility] [place] [address] [facility] Start: 03-28-2023 End: 06-27-2023 CBC panel - Blood by Automated count CBC Lab Routine Anemia, unspecified type Expected: 03/28/2023, Expires: 06/27/2023 [facility] Work Phone: Comment on above: Expected: 03/28/2023, Expires: Start: 03-28-2023 End: 06-27-2023 Comprehensive metabolic 2000 panel - Serum or Plasma COMP METABOLIC PANEL Lab Routine Anemia, unspecified type Elevated liver function tests Expected: 03/28/2023 (Approximate), Expires: 06/27/2023 [facility] Work Phone: Comment on above: Expected: 03/28/2023 (Approximate), Expi res: 06/27/2023 Start: 03-28-2023 End: 06-27-2023 Natriuretic peptide.B prohormone N-Terminal [Mass/volume] in Serum or Plasma NT PRO BNP Lab Routine Bilateral leg edema Anemia, unspecified type Elevated liver function tests Expected: 03/28/2023, Expires: 06/27/2023 [facility] Work Phone: Comment on above: Expected: 03/28/2023, Expires: Start: 03-18-2023 Vital signs measurements [facility] Start: 03-18-2023 End: 03-18-2023 [facility] Start: 03-18-2023 Patient discharge [facility] Start: 03-11-2023 Patient discharge [facility] Start: 03-10-2023 Administration of blood product [facility] Start: 03-10-2023 Administration of medication [facility] Start: 03-10-2023 Application of ice collar, cap or bag [facility] Start: 03-10-2023 Catheterization of vein [facility] Start: 03-10-2023 Introduction of urinary catheter [facility] Start: 03-10-2023 Measuring intake and output [facility] Start: 03-10-2023 Notification of physician [facility] Start: 03-10-2023 Procedure discontinued [facility] Start: 03-10-2023 Provision of activity privileges [facility] Start: 03-10-2023 Vital signs measurements [facility] Start: 03-10-2023 [facility] Start: 03-10-2023 Consultation [facility] Start: 03-09-2023 Admission procedure [facility] Start: 03-08-2023 monitoring labor phys written report MONITOR W/REPORT [facility] Start: 03-08-2023 nonstress test NON-STRESS TEST [facility] Start: 03-08-2023 Urnls dip stick/tablet reagent auto microscopy URINALYSIS AUTO W/SCOPE [facility] Start: 03-08-2023 Nonstress test [facility] Start: 03-08-2023 Obstetric monitoring [facility] Start: 03-08-2023 Vital signs measurements [facility] Start: 03-08-2023 [facility] Start: 03-08-2023 Patient discharge [facility] Start: 03-04-2023 [facility] Start: 03-04-2023 Nonstress test [facility] Start: 03-04-2023 Biophysical profile panel US [facility] Start: 03-04-2023 Ultrasonography for biophysical profile without non-stress testing Biophysical Prof W/O Non Stres [facility] Start: 03-04-2023 Obstetric monitoring [facility] Start: 03-04-2023 Vital signs measurements [facility] Start: 03-04-2023 [facility] Start: 03-04-2023 Patient discharge [facility] Start: 03-04-2023 [facility] Start: 03-01-2023 Nonstress test [facility] Start: 03-01-2023 Obstetric monitoring [facility] Start: 03-01-2023 Vital signs measurements [facility] Start: 03-01-2023 [facility] Start: 02-18-2023 Genital Culture Genital Culture [facility] Start: 02-18-2023 Microscopic observation [Identifier] in Unspecified specimen by Gram stain Gram Stain [facility] Start: 02-18-2023 Source specific culture [facility] Start: 02-18-2023 Procedure [facility] Start: 02-18-2023 Administration of blood product [facility] Start: 02-18-2023 Nonstress test [facility] Start: 02-18-2023 Obstetric monitoring [facility] Start: 02-18-2023 Vital signs measurements [facility] Start: 02-18-2023 [facility] Start: 02-18-2023 Chlamydia deoxyribonucleic acid detection [facility] Start: 02-18-2023 Patient discharge [facility] Start: 02-03-2023 Covid-19 Vaccine ( season) Covid-19 Vaccine ( season) [facility] Start: 02-03-2023 Influenza vaccination [facility] Start: 01-30-2023 Nonstress test [facility] Start: 01-30-2023 Obstetric monitoring [facility] Start: 01-30-2023 Vital signs measurements [facility] Start: 01-30-2023 [facility] Start: 01-30-2023 Patient discharge [facility] Start: 01-24-2023 [facility] Start: 01-23-2023 Troponin I measurement [facility] Start: 01-23-2023 [facility] Start: 01-16-2023 Following clinical pathway protocol [facility] Start: 01-16-2023 Iv infusion hydration initial 31 min-1 hour HYDRATION IV INFUSION INIT [facility] Start: 12-21-2022 Patient referral [facility] Work Phone: Start: 11-25-2022 Patient referral [facility] Work Phone: Start: 11-17-2022 PTRECHADABIGAIL, Provider: Sylvia Calle, Status: Pen, Time: 11:30 AM QIANECHADABIGAIL, Provider: Sylvia Calle, Status: Pen, Time: 11:30 AM [facility] Work Phone: Start: 11-15-2022 AQUATICFU4, Provider: Katalina Roach, Status: Pen, Time: 11:30 AM AQUATICFU4, Provider: Katalina Roach, Status: Pen, Time: 11:30 AM [facility] Work Phone: Start: 11-10-2022 AQUATICFU4, Provider: Katalina Roach, Status: Pen, Time: 11:30 AM AQUATICFU4, Provider: Katalina Roach, Status: Pen, Time: 11:30 AM [facility] Work Phone: Start: 11-08-2022 AQUATICFU4, Provider: Katalina Roach, Status: Pen, Time: 11:30 AM AQUATICFU4, Provider: Katalina Roach, Status: Pen, Time: 11:30 AM [facility] Work Phone: Start: 10-28-2022 Patient referral [facility] Work Phone: Start: 03-15-2023 Liquid based cervical cytology screening [facility] Start: 02-15-2022 Patient encounter procedure ANNUAL, Provider: Andry Rueda, Status: Pen, Time: 11:00 AM [facility] Work Phone: Start: 02-03-2022 Influenza vaccination [facility] Start: 01-03-2022 Influenza vaccination Flu vaccine (#1) [facility] Start: 11-16-2021 Patient encounter procedure [facility] Start: 11-16-2021 PPV, Provider: Andry Rueda, Status: Pen, Time: 2:00 PM PPV, Provider: Andry Rueda, Status: Pen, Time: 2:00 PM [facility] Work Phone: Start: 10-12-2021 End: 10-13-2022 [facility] Comment on above: Consult provider prior to [...] (CAD); Caution in suspected CAD. Consult provider amlo or to administration. Systolic greater than or [...] fentaNYL 2 mcg/mL - Bupivacaine 0.0625% PCEA ([facility] ONLY) ; DEMAND/ PCEA Dose = 4BASAL/ Continuous Rate = 10One Hour Dose Limit = 34 mL/hr mL per hourNotes from Pharmacy: [Fentanyl 2 mcg/mL - Bupivacaine 0.0625%] Start: 12-Oct-2021 End: 12-Oct-2022 Ordered: 12-Oct-2021 Osiel Valentin [facility] Start: 10-08-2021 EPVOB, Provider: Andry Rueda, Status: Pen, Time: 10:30 AM EPVOB, Provider: Andry Rueda, Status: Pen, Time: 10:30 AM [facility] [address] Work Phone: Start: 10-01-2021 EPVOB, Provider: Andry Rueda, Status: Pen, Time: 11:15 AM EPVOB, Provider: Andry Rueda, Status: Pen, Time: 11:15 AM [facility] [address] Work Phone: Start: 09-26-2021 Diabetes mellitus screening Diabetes Screening [facility] Start: 09-24-2021 EPVOB, Provider: Anil Panchal, Status: Pen, Time: 11:15 AM EPVOB, Provider: Anil Panchal, Status: Pen, Time: 11:15 AM [facility] [address] Work Phone: Start: 09-17-2021 EPVOB, Provider: Andry Rueda, Status: Pen, Time: 11:30 AM EPVOB, Provider: Andry Rueda, Status: Pen, Time: 11:30 AM [facility] [address] Work Phone: Start: 09-10-2021 EPVOB, Provider: Andry Rueda, Status: Pen, Time: 11:00 AM EPVOB, Provider: Andry Rueda, Status: Pen, Time: 11:00 AM [facility] [address] Work Phone: Start: 08-13-2021 EPVOB, Provider: Andry Rueda, Status: Pen, Time: 9:00 AM EPVOB, Provider: Andry Rueda, Status: Pen, Time: 9:00 AM [facility] [address] Work Phone: Start: 07-30-2021 EPVOB, Provider: Andry Rueda, Status: Pen, Time: 11:15 AM EPVOB, Provider: Andry Rueda, Status: Srikanth, Time: 11:[address] Work Phone: Start: 07-20-2021 End: 07-20-2021 Patient encounter procedure 07/20/2021 Office Visit Cardiology Yuri Ramos MD [address] [place] [address] [facility] Start: 06-15-2021 Screening for malignant neoplasm of cervix [facility] Start: 05-17-2021 End: 07-18-2022 Echocardiography Echocardiogram complete Echocardiography Routine Palpitations Expected: 05/17/2021, Expires: 07/18/2022 [facility] Work Phone: Comment on above: Expected: 05/17/2021, Expires: 3 Start: 05-17-2021 End: 07-18-2022 Extended Holter Monitor (3-7 days) Extended Holter Monitor (3-7 days) Cardiac Services Routine Palpitations Expected: 05/17/2021, Expires: 07/18/2022 [facility] Comment on above: Expected: 05/17/2021, Expires: 3 Start: 02-03-2021 Influenza vaccination [facility] Start: 2020 Screening for malignant neoplasm of cervix HPV (without or with Pap) [facility] Start: 02-04-2020 Influenza vaccination Sequential Influenza Vaccine (#1) [facility] Start: 02-04-2020 Influenza vaccination given Sequential Influenza Vaccine (#1) [facility] Start: 02-03-2018 Influenza vaccination given SEQUENTIAL INFLUENZA VACCINE (#1) [facility] Start: 2011 Screening for malignant neoplasm of cervix [facility] Start: 2009 Hepatitis A Vaccines (1 of 2 - Risk 2-dose series) Hepatitis A Vaccines (1 of 2 - Risk 2-dose series) [facility] Start: 2009 Hepatitis B Vaccine (1 of 3 - 19+ 3-dose series) Hepatitis B Vaccine (1 of 3 - 19+ 3-dose series) [facility] Start: 2009 Third diphtheria, tetanus and acellular pertussis (DTaP) vaccination TDAP (ADULT) [facility] Start: 2008 Hepatitis C antibody, confirmatory test Hepatitis C Screening [facility] Start: 2008 Hepatitis C screening [facility] Start: 2008 Tetanus vaccination TETANUS [facility] Start: 2006 COVID-19 Vaccine (1 of 2) COVID-19 Vaccine (1 of 2) [facility] Start: 2006 COVID-19 Vaccine (1) COVID-19 Vaccine (1) [facility] Start: 2005 HIV screening [facility] Start: 2002 Adolescent depression screening assessment Depression Screening (PHQ9) [facility] Start: 2002 Depression Screen Depression Screen [facility] Start: 2002 Depression screening using PHQ-9 (Patient Health Questionnaire 9) score [facility] Start: 1995 COVID-19 Vaccine (#1) COVID-19 Vaccine (#1) [facility] Start: 1995 COVID-19 Vaccine (1) COVID-19 Vaccine (1) [facility] Start: 1993 History and physical examination, annual for health maintenance Wellness Visit [facility] Start: 1991 MMR Vaccines (1 of 1 - Standard series) MMR Vaccines (1 of 1 - Standard series) [facility] Start: 1991 Varicella vaccination Varicella Vaccines (1 of 2 - 2-dose childhood series) [facility] Start: 1991 Varicella vaccine (1 of 2 - 2-dose childhood series) Varicella vaccine (1 of 2 - 2-dose childhood series) [facility] Start: 1990 COVID-19 VACCINE (#1) COVID-19 VACCINE (#1) [facility] Start: 1990 HEPATITIS B (1 of 3 - 3-dose series) HEPATITIS B (1 of 3 - 3-dose series) [facility] Start: 1990 Hepatitis B vaccination HEP B VACCINE (1 of 3 - 3-dose series) [facility] Start: 1990 Hepatitis B Vaccine (1 of 3 - 3-dose series) Hepatitis B Vaccine (1 of 3 - 3-dose series) [facility] Start: 1990 Hepatitis B Vaccines (1 of 3 - 3-dose series) Hepatitis B Vaccines (1 of 3 - 3-dose series) [facility] Start: 1990 Hepatitis C antibody, confirmatory test HEPATITIS C VIRUS SCREENING [facility] Start: 1990 Hepatitis C screening HEPATITIS C VIRUS SCREENING [facility] Start: 1990 HIV screening HIV Screening [facility] Start: 1990 Lipid panel Lipid Panel [facility] Start: 1990 Screening for malignant neoplasm of cervix PAP SMEAR [facility] Start: 1990 Tetanus vaccination TETANUS EVERY 10 YR [facility] Start: 1990 Yearly Adult Physical Yearly Adult Physical [facility] End: 03-13-2023 Bacteria identified in Urine by Culture [facility] Work Phone: Comment on above: Once (Lab) for 1 Occurrences starting until 03/13/2023 End: 06-07-2023 Bacteria identified in Urine by Culture Urine Culture Microbiology Routine Once (Lab) for 1 Occurrences starting 06/07/2023 until 06/07/2023 [facility] Work Phone: Comment on above: Once (Lab) for 1 Occurrences starting until 06/07/2023 Bacteria identified in Urine by Culture Urine Culture Microbiology Routine 06/06/2023 11:41 PM EST [facility] Work Phone: End: 06-06-2023 Blood type and Indirect antibody screen panel - Blood [facility] Work Phone: Comment on above: Once (Lab) for 1 Occurrences starting until 06/06/2023 CBC W Auto Different ial panel - Blood [facility] Creatinine [Mass/vol ume] in Urine collected for unspecified duration [facility] End: 03-13-2023 Extra Urine Gilbert Tube [facility] Work Phone: Comment on above: Once for 1 Occurrences starting 03/13/20 23 until 03/13/2023, 1 completed End: 06-06-2023 Extra Urine Gilbert Tube [facility] Work Phone: Comment on above: Once for 1 Occurrences starting 06/06/19 24 until 06/06/2023 Biophysical pr ofile panel US [facility] Genital microscopy, culture and sensitivities [facility] Hepatitis B surface antigen measurement [facility] Hepatitis C antibody measurement [facility] HIV 1+2 Ab+HIV1 p24 Ag [Presence] in Serum or Plasma by Immunoassay [facility] HOLTER MONITOR - PSYCH NP JOANN R MONITOR - PSYCH NP ECG Routine Tachycardia Near syncope Dizziness and giddiness Ordered: 10/20/2022 [facility] Comment on above: Ordered: 10/20/2022 End: 05-31-2023 HOLTER MONITOR - PSYCH NP HOLTER MONITOR - PSYCH NP ECG Routine Near syncope Tachycardia 1 Occurrences starting 05/31/2023 until 05/31/2023 [facility] Comment on above: 1 Occurrences starting 05/31/2023 until 05/31/2023 Neisseria gonorrhoea e rRNA [Presence] in Unspecified specimen by MAYTE with probe detection [facility] Path report.final Dx Spec [facility] Patient Education [facility] Work Phone: Patient referral [facility] Work Phone: PCR test for Chlamyd ia trachomatis [facility] Procedure [facility] Protein [Mass/volume ] in Urine [facility] Protein/Creatinine [ Mass Ratio] in Urine [facility] Protein/Creatinine [ Ratio] in Urine [facility] Rubella IgG measurement [facility] Source specific culture [facility] Treponema sp Ab [Pre sence] in Serum [facility] End: 03-13-2023 Urinalysis complete W Reflex Culture panel - Urine [facility] Work Phone: Comment on above: Once (Lab) for 1 Occurrences starting until 03/13/2023 End: 06-06-2023 Urinalysis complete W Reflex Culture panel - Urine [facility] Work Phone: Comment on above: Once (Lab) for 1 Occurrences starting until 06/06/2023 [facility] Immunizations Immunization Date Immunization Notes Care Provider rachel 08-03-2023 influenza virus vaccine, unspecified formulation Davide Chao MD Work Phone: [facility] 06-17-2019 influenza virus vaccine, unspecified formulation Davide Chao MD Work Phone: [facility] 05-04-2016 RHO(D) immune globulin- IV or IM [facility] Provider [facility] Work Phone: 05-04-2016 tetanus toxoid, reduced diphtheria toxoid, and acellular pertussis vaccine, adsorbed [facility] Provider [facility] Work Phone: 03-23-2016 influenza, injectabl e, quadrivalent, contains preservative [facility] Provider [facility] 03-23-2016 influenza virus vaccine, unspecified formulation Gallito Couch MD Work Phone: [facility] 06-14-2013 influenza virus vaccine, unspecified formulation [facility] Provider [facility] 04-25-2012 RHO(D) immune globulin- IV or IM [facility] Provider [facility] Work Phone: 04-05-2012 influenza virus vaccine, whole virus [facility] 06-22-2010 RHO(D) immune globulin- IV or IM [facility] Provider [facility] Payers Date Payer Category Payer Self-pay [id number] 2017 Unknown 2014 [facility] [employer] xxxxxxxxxxx 2014-Present xxxxxxxxxxx [id number] 2014 Medicaid [id number]. [id number] 2014 Medicaid [id number]. 1.13.385.2.7.3. [id number] 2014 Unknown [id number] 2014 Unknown [id number] 1.2.840.347506.1.13.239.2.7.3. [id number] 1990 Unknown [id number] 2.16.840.1.828364.3.579.2.278 1990 Unknown [id number] 2.16.840.1.432946.3.579.2.278 1990 Unknown [id number] 2.16.840.1.707886.3.579.2.668 1990 Unknown [id number] 2.16.840.1.886038.3.579.2.668 1990 Unknown [id number] 2.16.840.1.785372.3.579.2.903 1990 Unknown [id number] 2.16.840.1.282530.3.579.2.903 1990 Unknown [id number] 2.16.840.1.088859.3.579.2.903 1990 Unknown [id number] 2.16.840.1.265706.3.579.2.903 1990 Unknown [id number] 2.16.840.1.319619.3.579.2.903 1990 Unknown [id number] 2.16.840.1.023043.3.579.2.903 1990 Unknown [id number] 2.16.840.1.873932.3.579.2.903 1990 Unknown [id number] 2.16.840.1.301632.3.579.2.732 1990 Unknown [id number] 2.16.840.1.860151.3.579.2.903 1990 Unknown [id number] 2.16.840.1.151985.3.579.2.174 1990 Unknown [id number] 2.16.840.1.484533.3.579.2.174 1990 Unknown [id number] 2.16.840.1.220478.3.579.2.174 1990 Unknown [id number] 2.16.840.1.097831.3.579.2.174 1990 Unknown [id number] 2.16.840.1.452402.3.579.2.174 1990 Unknown [id number] 2.16.840.1.828069.3.579.2.903 1990 Unknown [id number] 2.16.840.1.696280.3.579.2.903 1990 Unknown [id number] 2.16.840.1.417675.3.579.2.356 1990 Unknown [id number] 2.16.840.1.120741.3.579.2.356 1990 Unknown [id number] 2.16.840.1.327042.3.579.2.356 1990 Unknown [id number] 2.16.840.1.920804.3.579.2.356 1990 Unknown [id number] 2.16.840.1.418486.3.579.2.356 1990 Unknown [id number] 2.16.840.1.438591.3.579.2.356 1990 Unknown [id number] 2.16.840.1.130115.3.579.2.356 1990 Unknown [id number] 2.16.840.1.042302.3.579.2.356 1990 Unknown [id number] 2.16.840.1.409458.3.579.2.356 1990 Unknown [id number] 2.16.840.1.659044.3.579.2.479 1990 Unknown [id number] 2.16.840.1.595269.3.579.2.1069 1990 Unknown [id number] 2.16.840.1.790284.3.579.2.1069 1990 Unknown [id number] 2.16.840.1.934561.3.579.2.9 1990 Unknown [id number] 2.16.840.1.954888.3.579.2.9 1990 Unknown [id number] 2.16.840.1.250711.3.579.2.1068 1990 Unknown [id number] 2.16.840.1.082733.3.579.2.1068 1990 Unknown [id number] 2.16.840.1.666722.3.579.2.1068 1990 Unknown [id number] 2.16.840.1.431062.3.579.2. 1990 Unknown [id number] 2.16.840.1.227672.3.579.2. 1990 Unknown [id number] 2.16.840.1.318416.3.579.2.1243 1990 Unknown [id number] 2.16.840.1.259914.3.579.2.1242 1990 Unknown [id number] 2.16.840.1.283956.3.579.2.1243 1990 Unknown [id number] 2.16.840.1.834186.3.579.2.627 1990 Unknown [id number] 2.16.840.1.255821.3.579.2.983 1990 Unknown [id number] 2.16.840.1.772436.3.579.2.651 1990 Unknown [id number] 2.16.840.1.050105.3.579.2.651 1990 Unknown [id number] 2.16.840.1.189964.3.579.2.651 1990 Unknown [id number] 2.16.840.1.842575.3.579.2.983 Unknown [id number] 2.16.840.1.963951.3.579.2.462 Unknown [id number] 2.16.840.1.144812.3.579.2.462 Unknown [id number] 2.16.840.1.385644.3.579.2.462 Unknown [id number] 2.16.840.1.249810.3.579.2.462 Unknown [id number] 2.16.840.1.555109.3.579.2.462 Unknown [id number] 2.16.840.1.745340.3.579.2.462 Unknown [id number] 2..840.1.223772.3.579.2.462 Unknown [id number] 2..840.1.388632.3.579.2.462 Unknown [id number] 2..840.1.275147.3.579.2.462 Unknown [id number] 2..840.1.439194.3.579.2.462 Unknown [id number] 2.16.840.1.491069.3.579.2.462 Unknown [id number] 2.16.840.1.419311.3.579.2.462 Unknown [id number] 2..840.1.086117.3.579.2.462 Unknown [id number] 2.16.840.1.228734.3.579.2.462 Unknown [id number] 2.16.840.1.195251.3.579.2.462 Unknown [id number] 2.16.840.1.489356.3.579.2.462 Unknown [id number] 2.16.840.1.862480.3.579.2.462 Unknown [id number] 2.16.840.1.100286.3.579.2.462 Social History Date Type Detail Facility Start: 09-01-2018 End: 11-23-2024 Tobacco smoking status MNIS Current every day smoker [facility] Start: 01-23-2004 End: 01-24-2021 History of tobacco use Cigarette Smoker [facility] Start: 09-01-2018 End: 11-03-2023 Cigarettes smoked current (pack per day) - Reported [facility] Start: 1990 Sex Assigned At Not on file [facility] Start: 09-01-2018 Alcohol intake Not Asked [facility] Start: 07-29-2022 End: 09-21-2023 Tobacco smoking consumption unknown [facility] Start: 11-11-2021 End: 06-07-2023 Exposure to SARS-CoV-2 (event) Not sure [facility] Start: 09-27-2020 End: 06-10-2024 Tobacco use and exposure Never used [facility] Start: 09-27-2020 End: 06-07-2023 Alcohol intake Lifetime non-drinker (finding) [facility] Start: 09-27-2020 End: 06-21-2022 History SDOH Alcohol Frequency 1 [facility] Start: 05-17-2021 End: 06-10-2024 Tobacco smoking status MNIS Ex-smoker [facility] Start: 01-23-2004 End: 01-24-2021 History of tobacco use Current smoker [facility] Start: 06-23-2021 End: 09-05-2024 Alcohol intake Current non-drinker of alcohol (finding) [facility] Start: 11-29-2021 End: 06-21-2022 History SDOH Alcohol Frequency 2 [facility] Start: 11-29-2021 End: 06-21-2022 History SDOH Social Connections Living 8 [facility] Start: 11-29-2021 End: 06-21-2022 History SDOH Physical Activity DPW 0 [facility] Start: 11-29-2021 End: 06-21-2022 History SDOH Stress 4 [facility] Start: 11-29-2021 History SDOH Housing Places Lived 3 [facility] Start: 06-13-2019 Education 21 [facility] Start: 06-21-2022 History SDOH Stress 5 [facility] Start: 09-25-2020 None [facility] Start: 09-25-2020 Cigarettes [facility] Start: 1990 Sex Assigned At Female W [facility] Start: 10-20-2022 Tobacco Comment Currently vapes [facility] Start: 06-21-2022 End: 11-03-2023 Social connection and isolation panel [facility] Do you belong to any clubs or organizations such as jain groups, [employer], [employer] or athleCyntellect groups, or school groups? No [facility] Are you now , , , , never or living with a partner? Living with partner [facility] How often to you hav e a drink containing alcohol? Monthly or less [facility] How many standard drinks containing alcohol do you have on a typical day? 1 or 2 [facility] How often do you hav e 6 or more drinks on 1 occasion? Never [facility] How hard is it for y ou to pay for the very basics like food, housing, medical care, and heating Not very hard [facility] Adult Depression Screening Assessment 3 [facility] Do you feel stress - tense, restless, nervous, or anxious, or unable to sleep at night because your mind is troubled all the time - these days [OSQ] Very much [facility] (I/We) worried lexa er (my/our) food would run out before (I/we) got money to buy more. Never true [facility] Start: 03-13-2023 Tobacco smoking stat us MNIS Never smoked tobacco [facility] Work Phone: Start: 03-13-2023 End: 05-16-2023 Tobacco use and exposure User of smokeless tobacco [facility] Work Phone: Start: 06-23-2017 Gender identity Identifies as female gender (finding) [facility] Do you belong to any clubs or organizations such as jain groups, [employer], [employer] or athletic groups, or school groups? Yes [facility] Tobacco Nicotine Use: Va ping Product in Last 90 Days. Type: Electronic Cigarettes (Vaping). [facility] Sex Assigned At Sex [facility] Start: 08-27-2024 End: 08-29-2024 Sex Female (finding) [facility] NEGATED: Highlighted row [facility] Medical Equipment Procedure Code Equipment Code Equipment Origin al Text Equipment Identifier Dates Fallopian tube clip/band ()[id number] FDA Start: 03-10-2023 Goals Date Patient Goal Desired Activity /State Functional Status Date Assessment Result Facility 03-22-2024 Functional Status Up ad krish [facility] spital [facility] 03-22-2024 Functional Status Standard Safet y ID band on, Call device within reach, Bed in low position, Wheels locked [facility] 10-03-2023 Functional status Ambulates;Bath room Privilege [facility] Work Phone: 03-18-2023 Functional status Activity Abili ty Independent [facility] Work Phone: 12-29-2014 Are you deaf, or do you have serious difficulty hearing No 12/29/2014 12:30 PM EDT Bonnie Eduardo LPN No [facility] 12-29-2014 Are you blind, or do you have serious difficulty seeing, even when wearing glasses No 12/29/2014 12:30 PM EDT Bonnie Eduardo LPN No [facility] 12-29-2014 Do you have serious difficulty walking or climbing stairs No 12/29/2014 12:30 PM EDT Bonnie Eduardo LPN No [facility] 12-29-2014 Do you have difficul ty dressing or bathing No 12/29/2014 12:30 PM EDT Bonnie Eduardo LPN No [facility] 12-29-2014 Because of a physica l, mental, or emotional condition, do you have difficulty doing errands alone such as visiting a physician's office or shopping No 12/29/2014 12:30 PM EDT Bonnie Eduardo LPN No [facility] Functional observable [facility] Mental Status Date Assessment Result Facility 11-23-2024 Cognitive function Level Of Cons ciousness Awake;Alert;Appropriate;Fol lows Commands [facility] Work Phone: 03-22-2024 Mental Status Orientation Oriented x 4 [facility] 03-22-2024 Mental Status [facility] 10-03-2023 Cognitive function Light Pain [facility] Work Phone: 03-10-2023 Cognitive function Level Of Cons ciousness Follows Commands;Drowsy [facility] Work Phone: 01-23-2023 Cognitive function Voice/Name [facility] Work Phone: 10-14-2021 Cognitive functi ons :22 [facility] 12-29-2014 Because of a physica l, mental, or emotional condition, do you have serious difficulty concentrating, remembering, or making decisions No 12/29/2014 12:30 PM EDT Bonnie Eduardo LPN No [facility] Clinical Notes 07-04-2016 to 01-03-2025 Note Date & Type Note Facility 01-03-2025 Progress note [facility] 01-03-2025 Progress note Note Date/Time January 03, 2025 3:56pm [facility] [address], [address] [place] [address] OFFICE VISIT Date of Service: 01/03/25 MR#: [id number] Acct: [id number] Name: QUE SANCHEZ Rep #: [id number] : 1990 Provider: TIM Roach Age/Sex: 34/F Location: [facility] Status: Signed Intake Vital Signs 11/23/24 20:23 01/03/25 15:35 Height 5 ft 6 in 5 ft 6 in Weight: 177 lb 4 oz BMI 28.5 BP 108/68 Intake Visit Reasons: Possible BV Chief Complaint: Possible BV Diesel Fleet Mechanic Required: No Is patient in pain?: No [...] tablet 200 mg PO QDAY 01/03/2506/29 History prenat.vits,malgorzata,nvv-qktk-aovap tab PO 01/03/25 5 History zinc acetate [...] full term 7lbs 2oz Female 14 epidural [facility] Dr. Emilia Jung 09/07/10 Bridget 39 live - full term 7lbs 4oz Female 46 suzette rs [facility] Satya 07/12/12 Pj 38 live - full term 7lbs 6oz Male 4 hours [facility] Lilli Piña 07/15/16 Missy 37 live - full term 7lbs 8oz Male 12 hours [facility] Dr. Jurado 10/12/21 [place] 40 live - full term 8lbs 2oz Male [place] Dr. Germain an Will 03/10/24 Von live - [...] Cosigner Signature: Date (if applicable) CC: ~ [facility] Work Phone: 1(443) 720-764607-21-2025 Procedure note [facility] Medical Records Department [address] [place] [address] Procedure Report 12/20/24 1712 MR#: [id number] Acct: [id number] Name: QUE SANCHEZ Rep #:[id number] : 1990 34 From: Melissa Brasher DO PCP: Dr. Davide Chao MD Status:RE G CLI Location: RAD Problems Associated Problem List Diagnoses (1) Tubal reversal surgical follow up: Multi Select Codes Urinary/Genital Urinary/Genital CPT Codes: 19503 HSG/SIS Non-invasive Procedural Procedure Information Date of Procedure: 12/23/24 Pre-Procedure Diagnosis: tubal reversal follow up Post-Procedure Diagnosis: tubal reversal follow up Procedure Performed:: HSG senior architectural designer: No Description of procedure: Operative details: Patient [...] bilateral fallopian tubes Complications Complications: No 12/23/24 6654 Cosigner Signature (if applicable): CC: Dr. Melissa Brasher DO; Dr. Davide Chao MD~ Signed [facility]07-18-2025 Evaluation note* Diagnosis Onset Date Resolution Status Admit Date Tubal reversal surgical foll ow up acute December 20, 2024 11:44am [facility] Work Phone: [phone]) 201-343707-18-2025 Evaluation note* Diagnosis Onset Date Resolution Status Admit Date Tubal reversal surgical foll ow up acute December 20, 2024 11:44am Amenorrhea acute January 03 3:30pm Vaginal odor acute January 03, 2025 3:30pm [facility] Work Phone: 1(878) 840-745607-18-2025 Radiology Diagnostic study note [facility] Imaging Services [address] [place], [place] [address] Salpingogram MR#: [id number] Acct: [id number] Name: QUE SANCHEZ Rep #: [id number] : 1990 F 34 From: Andrés Sullivan MD PCP: Dr. Davide Chao MD Status: RE G CLI Study:Salpingogram Date of Exam: 5 Exam# [id number] Ordering Dr: Melissa Mcneill DO PROCEDURE: SALPINGOGRAM 12/20/2024 REASON FOR EXAM: HSG TECHNIQUE: SALPINGOGRAM COMPARISON: None FINDINGS: Hysterosalpingogram was performed by the car rental deliverer. Imaging was provided. Dose report: 21 seconds of fluoroscopy. 8.98 mGy. 2 images were submitted. The uterus is unremarkable. Both fallopian tubes are patent with free spill. RAD/Salpingogram IMPRESSION: Unremarkable hysterosalpingogram. Reading Location: [place] [address] CC: Dr. Melissa Brasher DO; Dr. Davide Chao MD ~ Asp Net Mvc Developer: Signed [facility]06-21-2025 Radiology Diagnostic study note [facility] Imaging Services [address] [place], [place] [id number] Chest PA and Lateral MR#: [id number] Acct: [id number] Name: QUE SANCHEZ Rep #: [id number] : 1990 F 34 From: Carolyne Vo MD PCP: Dr. Davide Chao MD Status: [facility] ER Study:Chest PA and Lateral Date of Exam: 11/23/24 Exam# [id number] Ordering Dr: Ryan Pearson DO PROCEDURE: CHEST PA AND LATERAL 11/23/2024 REASON FOR EXAM: CHEST PAIN TECHNIQUE: CHEST PA AND LATERAL COMPARISON: Chest radiograph 05/08/2018. FINDINGS: Hardware: None. Heart: The heart size is normal. Mediastinum: The mediastinal contour is unremarkable. Lungs: No focal consolidation, pleural effusion or pneumothorax. Bones: The bones are unremarkable. RAD/Chest PA and Lateral IMPRESSION: NEGATIVE CHEST Reading Location: [facility] CC: Dr. Davide Chao MD; Dr. Ryan Pearson DO ~ Asp Net Mvc Developer: Signed [facility]04-10-2025 Telephone encounter Note* Telephone Encounter - Cowan, M Maury, RN - 09/12/2024 9:31 AM EDT Faxed US pelvic results to attn: Samara/nurse, [facility], per patient request. [facility]04-10-2025 Miscellaneous Notes* Telephone Encounter - Omer Cowan RN - 09/12/2024 9:31 AM EDT Faxed US pelvic results to attn: Samara/nurse, [facility], per patient request. documented in this encounterC[facility]04-08-2025 NoteHNO ID: [id number] Author: LATONIA GRAY MD Service: ? Author Type: Physician Type: Progress Notes Filed: 09/11/2024 23:10 Note Text: The patient presents for requested ultrasound. Full report available in the Imaging tab in [facility]. Latonia Gray [facility]04-08-2025 History of Present illness Narrative* Latonia Gray MD - 09/10/2024 11:01 PM EDT The patient presents for requested ultrasound. Full report available in the Imaging tab in [employer]. Latonia Gray MD documented in this encounterC[facility]04-03-2025 History of Present illness Narrative* Marina Snell APRN.LIFTER DRIVER - 09/05/2024 7:00 AM EDT Que Sanchez is a 34 year old female who presents for problem visit 2nd opinion uterine cyst/polyp HPI: Tubal reversal 08/29/2024 in [place] - brings records with her. Was previously told thatkiley had a cyst in her uterus but now sent message on portal from [employer] that she has a uterine polypthat should be removed as it could cause miscarriage. US report as below - indicates cyst. She doeshave known adenomyosis. She would like second opinion as she does would like to achieve and was told that it was most likely soon after tubal reversal. LMP 09/04/2024 Study: Pelvic w/ Transvaginal Date of Exam: 08/21/24 Exam# [id number] Ordering Dr: Melissa Brasher DO EXAM: US [...] Living4 SAB0 IAB0 Ectopic0 Multiple0 Live Births4 Rechecker History LMP: 10/03/2023 (Approximate), Age at Menarche: Age at First : Age at Menopause: Rechecker History Comments: Sexual Activity: Yes; Male; Nuvaring [...] EGD LAPAROSCOPY SURG CHOLECYSTECTOMY 09/14/2009 LEEP PROCEDURE (SATURATOR TENDER DEPT)_*[place] 09/09/2015 SVT ABLATION 05/2015 procedure was [...] results. Follow- up as needed. Marina Snell APRN.CNP Medical Decision Making: Problems: Moderate: New problem with uncertain prognosis Data: Unique source(s) for external note(s) reviewed: 2 Unique test result(s) reviewed: 2 Unique test(s) ordered: 1 Medical Decision Making Level: 4 - Moderate documented in this encounterC[facility]04-03-2025 NoteHNO ID: [id number] Author: MARINA SNELL APRN.CNP Service: ? Author Type: Nurse Practitioner Type: Progress Notes Filed: 09/05/2024 08:06 Note Text: Que Sanchez is a 34 year old female who presents for problem visit 2nd opinion uterine cyst/polyp HPI: Tubal reversal 08/29/2024 in [place] - brings records with her. Was previously told that she had a cyst in her uterus but now sent message on portal from [employer] that she has a uterine polyp that should be removed as it could cause miscarriage. US report as below - indicates cyst. She does have known adenomyosis. She would like second opinion as she does would like to achieve and was told that it was most likely soon after tubal reversal. LMP 09/04/2024 Study: Pelvic w/ Transvaginal Date of Exam: 08/21/24 Exam# [id number] Ordering Dr: Melissa Brasher DO EXAM: US [...] Living4 SAB0 IAB0 Ectopic0 Multiple0 Live Births4 Rechecker History LMP: 10/03/2023 (Approximate), Age at Menarche: Age at First : Age at Menopause: Rechecker History Comments: Sexual Activity: Yes; Male; Nuvaring [...] EGD LAPAROSCOPY SURG CHOLECYSTECTOMY 09/14/2009 LEEP PROCEDURE (SATURATOR TENDER DEPT)_*[place] 09/09/2015 SVT ABLATION 05/2015 procedure was [...] Medication Sig gabapentin (NEURO (more content not included)...[facility] 08-21-2024 Radiology Diagnostic study note [facility] Services [address] [place], [place] [address] Pelvic w/ Transvaginal MR#: [id number] Acct: [id number] Name: QUE SANCHEZ Rep #: [id number] : 1990 F 34 From: Alicja Pearson MD PCP: Dr. Davide Chao MD Status: RE G CLI Study:Pelvic w/ Transvaginal Date of Exam: 08/21/24 Exam# [id number] Ordering Dr: Melissa Mcneill DO EXAM: US [...] evaluation with MRI is recommended. Reading Location: [facility] CC: Dr. Melissa Brasher DO; Dr. Davide Chao MD ~ Asp Net Mvc Developer: Signed [facility] [id number] NotePap Smear Specimen AdequacyMarch 2024 11:59pmComment.Satisfactory for evaluation. Endocervical and/or squamous metaplasticcells (endocervical component)are present.[facility] INTER[facility]ACED A#[id number] Hospitals Parma Medical CenterComment on above:Satisfactory for evaluation. Endocervical and/or squamous metaplasticcells (endocervical component)are present.08-19-2024 NotePap Smear Specimen AdequacyMarch 2024 11:59pmComment.Satisfactory for evaluation. Endocervical and/or squamous metaplasticcells (endocervical component)are present.[facility] INTER[facility]ACED A#[id number] Hospitals Parma Medical CenterComment on above:Satisfactory for evaluation. Endocervical and/or squamous metaplasticcells (endocervical component)are present.08-19-2024 Evaluation note* Diagnosis Onset Date Resolution Status Admit Date Postcoital bleeding acute August 19, 2024 2:42pm [facility] Work Phone: 1(440) 700-562603-13-2025 Telephone encounter Note* Telephone Encounter - Natalie Turpin RN - 08/15/2024 4:10 PM EDT Pt called and is notified of providers results and instructions. Pt voices understanding. Natalie Turpin RN [facility]03-13-2025 Miscellaneous Notes* Telephone Encounter - Natalie Turpni RN - 08/15/2024 4:10 PM EDT Pt [...] needs called with information documented in this encounterCleveland Clinic [facility]03-13-2025 Telephone encounter Note * Telephone Encounter [...] iron and folate levels. Davide Chao MD [facility]03-12-2025 Telephone encounter Note* Telephone Encounter - Mamie Paul RN - 08/14/2024 3:32 PM EDT patient is calling in requesting results of lab work the was completed on 08/12. patient is also asking if she can get an order for iron and folic acid levels to be checked also. please review and advise patient needs called with information [facility]03-10-2025 Telephone encounter Note* Telephone Encounter - Vera Lewis MA - 08/12/2024 4:36 PM EDT See Edxact message. Not sure what this is. Wanted to follow up. Online it says I could be anemic or have low oxygen? Other tests are normal. I've been having issues with my breathing for about a week or so, but my meters never read below 96. Probably from vaping. Just wanted to check with you ! [facility]03-10-2025 Miscellaneous Notes* Telephone Encounter - Vera Lewis MA - 08/12/2024 4:36 PM EDT See Edxact message. Not sure what this is. Wanted to follow up. Online it says I could be anemic or have low oxygen? Other tests are normal. I've been having issues with my breathing for about a week or so, but my meters never read below 96. Probably from vaping. Just wanted to check with you ! documented in this encounterC[facility]03-04-2025 History of Present illness Narrative* Davide [...] visit. Either the patient or their legal energy conservation representative has been informed of the risks and benefits of -- and alternatives to -- treatment through a remote evaluation andconsents to proceed with the evaluation remotely. Pt sent in a Ar[employer]iance message back on 07/29/24 asking for a full blood work up due to having reverse tubal surgery in the next couple months. She wanted to make sure everything was normal with kidney, liver, and heart. Lab orders have been placed. SATURATOR TENDER placed orders for other testing. Main concern [...] and works with her. Also has a Secy, which she feels the Secy is more helpful. Was started on Strattera [...] EGD LAPAROSCOPY SURG CHOLECYSTECTOMY 09/14/2009 LEEP PROCEDURE (SATURATOR TENDER DEPT)_*FL 09/09/2015 SVT ABLATION 05/2015 procedure was [...] prn Davide Chao MD documented in this encounterCleveland Clinic [facility]03-04-2025 NoteHNO ID: [id number] Author: DAVIDE CHAO MD Service: ? Author [...] visit. Either the patient or their legal energy conservation representative has been informed of the risks and benefits of -- and alternatives to -- treatment through a remote evaluation and consents to proceed with the evaluation remotely. Pt sent in a Arradiance message back on 07/29/24 asking for a full blood work up due to having reverse tubal surgery in the next couple months. She wanted to make sure everything was normal with kidney, liver, and heart. Lab orders have been placed. SATURATOR TENDER placed orders for other testing. Main concern [...] and works with her. Also has a Secy, which she feels the Secy is more helpful. 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 Follows with Cardiology due to hx of arrhythmia, has taken Metoprolol 25 mg daily. No refills lately. She has talked to her radio reporter about this but has not wanted to [...] EGD LAPAROSCOPY SURG CHOLECYSTECTOMY 09/14/2009 LEEP PROCEDURE (SATURATOR TENDER DEPT)_*FL 09/09/2015 SVT ABLATION 05/2015 procedure was [...] Past Histories independently gathered by the clinical legal support assistant and the remaining scribed note accurately describes [...] PM. Vera Lewis MA documented in this encounterCleveland Clinic [facility]01-06-2025 NoteHNO ID: [id number] Author: DAVIDE CHAO MD Service: ? 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 Follows with Cardiology due to hx of arrhythmia, has taken Metoprolol 25 mg daily. No refills lately. She has talked to her radio reporter about this but has not wanted to [...] EGD LAPAROSCOPY SURG CHOLECYSTECTOMY 09/14/2009 LEEP PROCEDURE (SATURATOR TENDER DEPT)_*FL 09/09/2015 SVT ABLATION 05/2015 procedure was [...] No Known Problems Daughte (more content not included)...[facility]01-06-2025 Evaluation note* Diagnosis Onset Date Resolution Status Admit Date Inclusion cyst of vulva noneactive J anuary 2024 1:49pm Vaginal odor noneactive June 10, 2024 1:49pm Postcoital bleeding acute August 19, 2024 2:42pm [facility] Work Phone: [phone]) 342-916810-25-2024 History of Present illness Narrative* Davide Chao [...] office setting and agrees. Pt was at [facility] with complaints of chest pain. Pt was seen at the ED for complaints of chest pain, cardiac work up was negative. Pt wrote into the office asking for advice. Notes that she's beenchoking on every single meal that she eats for the last few weeks, but worse recently. Did some research on this issues. Hx of being diagnosed in [place] with eosinophilic esophagitis. Reports this has been [...] EGD LAPAROSCOPY SURG CHOLECYSTECTOMY 09/14/2009 LEEP PROCEDURE (SATURATOR TENDER DEPT)_*FL 09/09/2015 SVT ABLATION 05/2015 procedure was [...] prn Davide Chao MD documented in this encounterCleveland [facility]10-25-2024 NoteHNO ID: [id number] Author: DAVIDE CHAO MD Service: ? Author [...] office setting and agrees. Pt was at [facility] with complaints of chest pain. Pt was seen at the ED for complaints of chest pain, cardiac work up was negative. Pt wrote into the office asking for advice. Notes that she's been choking on every single meal that she eats for the last few weeks, but worse recently. Did some research on this issues. Hx of being diagnosed in [place] with eosinophilic esophagitis. Reports this has been [...] EGD LAPAROSCOPY SURG CHOLECYSTECTOMY 09/14/2009 LEEP PROCEDURE (SATURATOR TENDER DEPT)_*FL 09/09/2015 SVT ABLATION 05/2015 procedure was [...] daily. No current facility-administered (more content not included)...[facility]10-22-2024 Telephone encounter Note* Telephone Encounter - Yue Genao MA - 03/26/2024 10:26 AM EDT Pt has been notified that she needs to see an ORTHOPEDIC SHOES SALESPERSON if appt is not available. PCP is out multiple daysthis month, with limited scheduling. After further review pt is scheduled for a VV Monday. Yue Genao MA [facility]10-22-2024 Miscellaneous Notes* Telephone Encounter - Yue Genao MA - 03/26/2024 10:26 AM EDT Pt has been notified that she needs to see an ORTHOPEDIC SHOES SALESPERSON if appt is not available. PCP is [...] year. Yue Genao MA documented in this encounterCleveland Clinic [facility]10-22-2024 Telephone encounter Note * Telephone Encounter - Yue Genao MA - 03/26/2024 9:39 AM EDT Advised pt that she needs an appt to discuss as this has not been discussed previously over the past year. Yue Genao MA [facility]10-18-2024 Hospital Discharge instructions Patient Education 03/22/2024 [...] Swelling, pain or redness in one leg 9608-[address] [employer] [place] [address]. All rights reserved. This information is not intended as a substitute for professional medical care. Always follow yourhealthcare professional's instructions. Follow Up Care 03/22/2024 14:31:02 With:DAVIDE CHAO MD Address: [address] [place] [address]- When:2-4 days [facility] 10-18-2024 Telephone encounter Note* Telephone Encounter - Davide Chao MD - 03/22/2024 5:06 PM EDT Noted Davide Chao MD [facility]10-18-2024 Miscellaneous Notes* Telephone Encounter - Davide Chao MD - 03/22/2024 5:06 PM EDT Noted Davide Chao MD * Telephone Encounter - Latanya Tam LPN - 03/22/2024 1:32 PM EDT Pt. calling from [facility] with Chest pain wanting appt today with provider. Advised Pt. she should talk to the MD that she is seeing at the Er. She states they probably won't help me. I offered her Er follow up next week and refused. documented in this encounterCleveland Clinic [facility] Hospital10-18-2024 NoteDischarge Instructions Discharge Summary [address] [place] [address] [phone] 03/22/2024 Patient: QUE SANCHEZ Sex: Female : 1990 Age: 33y Thank you for visiting [facility]. You have been evaluated today by Antonette [...] Causes of Chest Pain Patient Signature Facility Operator Cavity Pump Date/Time 1 of 4 Discharge Instructions General Instructions with ExitWriter [address] [place] [address] [phone] 03/22/2024 Patient: QUE SANCHEZ Sex: Female : 1990 Age: 33y Thank you for visiting [facility]. You have been evaluated today by Antonette [...] Swelling, pain or redness in one leg [address] [place], [place] 7833010-18-2024 Note Discharge Instructions Thank you for allowing [facility] to assist you with your healthcare needs. The following is importantdischarge information regarding your hospital visit. What to Do Next Instructions from Your Care Team No qualifying data available. Post Acute Orders No qualifying data available. You Need to Schedule the Following Appointments Follow Up with DAVIDE CHAO MD When:Within 2-4 days Where:[address] [place] [address]- Allergies No Known Medication Allergies Medications Please [...] Swelling, pain or redness in one leg [phone] [employer] [place] [address]. All rights reserved. This information is not intended as a substitute for professional medical care. Always follow yourhealthcare professional's instructions. Additional Information VACCINATE! IT SAVES LIVES! Members of the community who have not yet received the COVID-19 vaccine and would like to receive it can visit one of [facility] vaccine clinics. There are many vaccine clinic locations within the [facility]. For locations and available times, please visit www.gettheshot.coronavirus.[place].gov/. It is important to note that some COVID mobile vaccine clinics are held outdoors and may be canceled in rainy or stormy conditions. To learn more about pediatric vaccinations (ages 5-11), we invite you to visit the [facility] webpage. https://www.[facility].org/pages/0103-Gwofh-Eyxieskeukm-Pvddsoktlg-Gmmtg-Tbb stions.htmlTo learn more about the COVID-19 vaccine, we invite you to visit the CDC website for a list of frequently asked questions. https://www.cdc.gov/coronavirus/2019-ncov/vaccines/faq.html [facility] Patient Portal Access Instructions: Stay connected with your healthcare team and access your personal medical information anytime with the [facility] Patient Portal. If you would like a full copy of your medical records please contact the [facility] Medical Records Department Monday through Monday between 8a.m. and 4:30p.m. Please follow the directions below to access the portal: 1.Access the email account you provided upon registration to the [facility].2.Look for an invitation email from [facility].3.Open the email and access the invitation link: Accept Invitation to [facility]4.Fill in the required coughlin to create your account. Sign into www.[employer] with your username and password that you [...] you will allow to register on the [facility] Patient Portal for access to your information. You can also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 discord resolved Sterilization resolved Supervision of high risk , antepartum resolved Abnormal glucose resolved Chlamydia infection affecting resolved Chronic headache resolved Depression affecting resolved Elevated bilirubin resolved Herpes simplex infection dur ing , antepartum resolved [id number] resolved History of pre-eclampsia res olved resolved Rh negative status during resolved Social discord resolved Sterilization resolved Supervision of high risk , antepartum resolved Abnormal glucose resolved Chlamydia infection affecting resolved Chronic headache resolved Depression affecting resolved Elevated bilirubin resolved Herpes simplex infection dur ing , antepartum resolved [id number] resolved History of pre-eclampsia res olved resolved Rh negative status during resolved Social discord resolved Sterilization resolved Supervision of high risk , antepartum resolved Vaginal delivery resolved Anxiety acute Depression acute Headache acute Menorrhagia with irregular cycle acute Possible exposure to STD non eactive Vaginal odor noneactive [facility] Work Phone: Evaluation note* Diagnosis 16 weeks gestation of state, incidental Encounter for supervision of other normal in first trimester History of herpes genitalis Personal history of other infectious and parasitic disease Anxiety Anxiety state, unspecified [facility] Diagnosis Onset Date Resolution Status Menorrhagia with irregular cycle acute Possible exposure to STD non eactive Vaginal odor noneactive [facility] Work Phone: Evaluation note* Diagnosis Viral syndrome- Primary Unspecified viral infection, in conditions classified elsewhere and of unspecified site Urinary frequency [facility] Diagnosis Fibromyalgia Mylagia and myositis, unspecified [facility] Diagnosis Onset Date Resolution Status Menorrhagia with irregular cycle acute Possible exposure to STD non eactive Vaginal odor noneactive Menorrhagia with irregular cycle acute Menorrhagia with irregular cycle acute [facility] Work Phone: Evaluation note* Diagnosis Near syncope- Primary Syncope and collapse [facility] Diagnosis 16 weeks gestation of state, incidental Encounter for supervision of other normal in first trimester History of herpes genitalis Personal history of other infectious and parasitic disease [facility] Diagnosis Fibromyalgia- Primary Mylagia and myositis, unspecified Anxiety with depression Near syncope Syncope and collapse URI, acute Acute upper respiratory infections of unspecified site [facility] Diagnosis Anxiety with depression- Primary [facility] Anxiety with depression [facility] Diagnosis Eosinophilic esophagitis- Primary Anxiety with depression Dysphagia, unspecified type [facility] Diagnosis Anxiety- Primary Anxiety state, unspecified Elevated blood pressure reading without diagnosis of hypertension ADHD (attention deficit hyperactivity disorder), combined type Attention deficit disorder with hyperactivity [facility] Diagnosis Elevated blood pressure reading without diagnosis of hypertension- Primary Fibromyalgia Mylagia and myositis, unspecified Anxiety with depression ADHD (attention deficit hyperactivity disorder), combined type Attention deficit disorder with hyperactivity [facility] Diagnosis Fatigue, unspecified type- Primary [facility]* Diagnosis Uterine cyst- Primary Other specified disorders of uterus, not elsewhere classified Adenomyosis of uterus [facility] Diagnosis Uterine cyst- Primary Other specified disorders of uterus, not elsewhere classified Adenomyosis of uterus Paratubal cyst Other noninflammatory disorder of ovary, fallopian tube, and broad ligament Intramural uterine fibroid documented [facility] Author Melissa Saxena [facility] October 03, 2023 7:25am Note Date/Time October 03, 2023 7:2 6am [facility] Medical Records Department [address] [place] [address] History & Physical Exam 10/03/23 0724 MR#: [id number] Acct: [id number] Name: QUE BAILEY Rep #:[id number] : 1990 33 From: Melissa Brasher DO PCP: Dr. 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 The ex is now in detention and looking at 5 years in assisted. ultrasound shows the following: TECHNIQUE: Transabdominal and [...] full term 7lbs 2oz Female 14 epidural [facility] Dr. Emilia Jung 09/07/10 Bridget 39 live - full term 7lbs 4oz Female 46 hours [facility] Satya 07/12/12 Pj 38 live - full term 7lbs 6oz Male 4 hours [facility] Lilli Piña 07/15/16 Missy 37 live - full term 7lbs 8oz Male 1 [address] [facility] Dr. Jurado 10/12/21 [place] 40 live - full term 8lbs 2oz Male [place] Dr. Rueda Will Delivery Date: 02/23/08 Last [...] procedure. 10/03/23 0725 <Electronically signed by Melissa Brasher DO> Cosigner Signature (if applicable): CC: Dr. Melissa Brasher DO; Dr. Davide Chao MD~ Signed [facility] Work Phone: History of Present [...] other systems reviewed and negative for complaint [facility] Work Phone: History of Present illness Narrative* arrives to outpatient PT c/o . Pt presents with the following impairments: . These impairments contribute to difficulty in activity limitations and participation restrictions including . Thept s signs and symptoms are consistent with likely . The pt will benefit from skilled PT [id number]/week for 8 weeks to address the above stated impairments and functional limitations to maximize p articipation and ease in household, social, and work related activities. The pt has a prognosis when considering positive factors including with barriers such as . The pt verbalized understanding and agreement to goals and POC. Thank you for this referral and please call [phone] with any questions or concerns. * Clinical Presentation: Stable and/or uncomplicated characteristics. * Level of Complexity: low [facility] Work Phone: History of Present illness NarrativePatient confirmed name and date of . Patient was encouraged to mildly engage TrA contraction secondary to , focusing on core control with LE/UE exercises. No increase in pain with UE/LEexercises and reduced pain with unloading. Reviewed Kegel exercises with patient. [facility] Work Phone: Hospital Discharge instructions* Activity:Return to [...] symptoms worsen, call 911 or go to [facility] room. *Information obtained from [facility]: Save Your Life: Get Care for [...] pad in <1hr, egg sized blood clots) Valier-sized blood clots are normal Bright red for [...] laxative without results, contact your doctor or bellows assembler Activity No pushing, pulling, or lifting anything [...] have questions about Any difficulty please call [phone] to speak with a budget consultant.Please join our mom'ssupport group, which is the second Monday of every month from [phone] in the Birthing & Women's Unit, 4th floor [facility]. No registration required.[facility] you for [facility]* Attachments The following attachments cannot be sent through Care Everywhere. * Back: Strain (Citizen [place]) [facility]: Hospital Discharge instructions Additional Instructions Follow up with [facility] on February 02 as previously scheduled. You have an appointment for a surgical consultation with Dr. Morales on February 01 at 9:45am. His office is located in the Outpatient Pavilion at [address] [place] [address], [address]. Eat potassium-rich foods when able. A prescription for a potassium supplement will be sent to your pharmacy.[facility] Work Phone: Hospital Discharge instructions Additional Instructions EKG normal your labs troponin negative. Your thyroid levels normal. Use your home Zofran as needed. Tylenol Motrin as needed. Follow-up with cardiology with your history of A-fib and ablation in the past. If you develop any recurrent worsening symptoms, return to ED for reevaluation.[facility] Work Phone: Instructions* Attachments The following attachments cannot be sent through Care Everywhere. * Otitis Media (Citizen Of [place]) documented in this encounterOhioHealthReason for referral (narrative)* Consultation (Routine) - Pending Review Specialty Diagnoses / Procedures Referred By Elder merritt Referred To Contact Obstetrics and Gynecology Procedures [place] OFFICE/OUTPATIENT NEW HIGH MDM 60-74 MINUTES Cheyanne Izaguirre, DO [address] [place] [address] Referral ID Status Reason Start Date Expiration Date Visits Requested Visits Authorized [id number] Pending Review Specialty Services Required 03/13/2023 09/09/2023 1 1 [facility] Work Phone: Reason for referral (narrative)No reason for referral information [facility]WAs[facility] Work Phone: Reason for visit Narrative* Initial Evaluation . Low back pain/Neck pain. * Referred by: Davide Chao MD [facility] Work Phone: Reason for visit Narrative* Diagnostic Procedure Only (Routine) - Closed Specialty Diagnoses / Procedures Referred By Elder merritt Referred To Contact [facility] [place]] Diagnoses Uterine cyst Adenomyosis of uterus Procedures PELVIC US WHI US PELVIC NONOBSTETRIC REAL-TIME IMAGE COMPLETE Marina Snell, SKEINS YARN EXAMINER.LIFTER DRIVER [address] [place] [address] Phone: tel: fax: [facility] [address] [place] [address] Referral ID Status Reason Start Date Expiration Date V isits Requested Visits Authorized [id number] Closed Auto-Generate d Referral 09/05/2024 09/05/2025 1 1 [facility] Summary Purpose Family History No Family History Records FoundUnknown Family Member Name Dates Details Healthy female: [...] s clerosis: Sister(V17.2, Z82.0) Status:Active Advance Directives No Advanced Directives Records FoundDocuments on File Type Date Recorded Patient Operator Cavity Pump Expl anation Advance Directives and Livin g Will 09/01/2018 5:16 PM Documents on File Type Date Recorded Patient Operator Cavity Pump Expl anation Advance Directives and Livin g Will 09/01/2018 5:16 PM Latest Code Status on File Code Status Date Activated Date Inactivated Comments Full Code - Unverified 09/26/2020 8:24 PM 09/26/2020 10: 50 PM Documents on File Type Date Recorded Patient Operator Cavity Pump Expl anation Advance Directives and Livin g Will 09/27/2020 5:16 PM Documents on File Type Date Recorded Patient Operator Cavity Pump Expl anation Advance Directives and Livin g Will 05/17/2021 1:51 PM Latest Code Status on File Code Status Date Activated Date Inactivated Comments Full Code - Unverified 09/26/2020 8:24 PM 09/26/2020 10: 50 PM Documents on File Type Date Recorded Patient Operator Cavity Pump Expl anation Advance Directive(s) Advance Directive(s) 10/17/2018 [...] No September 25, 2020 3:03pm Power of Investor Relations Director No September 25 3:03pm Advance Directive Response Recorded Date/ Time Advance Directives No July 2:22am Living Will No September 25, 2020 4:03pm Power of Investor Relations Director No September 25 4:03pm Advance Directive Response Recorded Date/ Time Advance Directives No July 2:22am Living Will No January 23 3 9:45pm Power of Investor Relations Director No January 23, 2 023 9:45pm Advance Directive Response Recorded Date/ Time Advance Directives No July 2:22am Living Will No March 09 3 5:42pm Power of Investor Relations Director No March 09, 2 023 5:42pm Advance Directive Response Recorded Date/ Time Advance Directives No July 1:22am Living Will No March 09 3 4:42pm Power of Investor Relations Director No March 09, 2 023 4:42pm Advance Directive Response Recorded Date/ Time Advance Directives No July 2:22am Living Will No September 21, 2023 8:57am Power of Investor Relations Director No September 20 8:57am Advance Directive Response Recorded Date/ Time Advance Directives No April 10:08am Advance Directive Response Recorded Date/ Time Do you have a Healthcare Power of Investor Relations Director? No November 23, 2024 8:22pm Advance Directives No April 10:08am Discharge Instructions * Instructions* Davide Marion PA-C - 09/01/2018 THE UROLOGIST AT [facility] STATES THAT YOUR KIDNEY STONE IS JUST ABOVE THE LEVEL OF YOUR URINARY BLADDER AND SHOULD PASS IN THE NEAR FUTURE. IF YOU ARE STILL EXPERIENCING SYMPTOMS ON MONDAY MORNING YOU MUST CONTACT YOUR UROLOGIST AT [facility]. OUR UROLOGIST ALSO STATES THAT YOU SHOULD RETURN TO THE EMERGENCY DEPARTMENT IF YOU DEVELOP A FEVER. YOU SHOULD TAKE YOUR TEMPERATURE AT HOME ON A REGULAR BASIS TO SEE IF YOU ARE DEVELOPING A FEVER THAT YOU MAY NOT NOTICE. * Attachments The following attachments cannot be sent through Care Everywhere. * Kidney Stone (Citizen Of [place]) in this encounter Assessments Diagnosis Kidney stone on left side- Primary Diagnosis Cervical pain- Primary Cervicalgia Reason for Referral Status Reason Specialty Diagnoses / Procedures Referred By Contact Referred To Contact Authorized Neurosurgery Diagnoses Cervical pain Davide Chao MD [address] [facility] [address] [place] [address] [facility] [address] [place] [address] Specialty Diagnoses / Procedures Referred By Contac t Referred To Contact Cardiology Diagnoses Palpitations Procedures Extended Holter Monitor (3-7 days) Yuri Ramos MD [address] [place] [address] Referral ID Status Reason Start Date Expiration Date Visits Re quested Visits Authorized [id number] Closed 05/17/2021 05/17/2022 1 1 Specialty Diagnoses / Procedures Referred By Contac t Referred To Contact Cardiology Diagnoses Palpitations Procedures Echocardiogram complete Yuri Ramos MD [address] [place] [id number] Referral ID Status Reason Start Date Expiration Date V isits Requested Visits Authorized [id number] New Request 05/17/2021 05/17/2022 1 1 Specialty Diagnoses / Procedures Referred By Contac t Referred To Contact Radiology Diagnoses , unspecified gestational age Procedures US OB TRANSVAGINAL Yaniv Pederson MD [address] [place] [address] Referral ID Status Reason Start Date Expiration Date Visits Re quested Visits Authorized [id number] Open 07/26/2022 07/26/2023 1 1 Specialty Diagnoses / Procedures Referred By Contac t Referred To Contact [facility] Diagnoses Chronic bilateral low back pain with left-sided sciatica Procedures CONSULT TO PHYSICAL THERAPY PHYSICAL THERAPY EVALUATION HIGH COMPLEX 45 MINS Davide Chao MD [address] [place] [address] [facility] [address] [place] [address] Referral ID Status Reason Start Date Expiration Date Visits Requested Visits Authorized [id number] Pending Review Auto-Generat ed Referral 10/10/2022 10/10/2023 1 1 Specialty Diagnoses / Procedures Referred By Elder merritt Referred To Contact Cardiology Diagnoses History of PSVT (paroxysmal supraventricular tachycardia) Procedures CONSULT TO CARDIOLOGY OFFICE/OUTPATIENT [facility] 60-74 MINUTES Davide Chao MD [address] [place] [address] Referral ID Status Reason Start Date Expiration Date Visits Requested Visits Authorized [id number] Authorized PCP Requested Referral 10/10/2022 10/10/2023 1 1 Specialty Diagnoses / Procedures Referred By Elder merritt Referred To Contact Cardiovascular Medicine Diagnoses Near syncope Tachycardia Procedures HOLTER MONITOR - PSYCH NP Alina Alvarado MD [address] [facility] [address] [place] [address] [facility] Machine Sole Leveler [address] [place] [address] Referral ID Status Reason Start Date Expiration Date Visits Re quested Visits Authorized [id number] Closed 05/24/2023 06/17/2024 1 1 Specialty Diagnoses / Procedures Referred By Elder merritt Referred To Contact Diagnoses ADHD (attention deficit hyperactivity disorder), combined type Davide Chao MD [address] [place] [address] Referral ID Status Reason Start Date Expiration Date V isits Requested Visits Authorized [id number] Pending Review 1 1 Chief Complaint Patient [...] affecting Herpes simplex infection during , antepartum [id number] History of pre-eclampsia Rh negative status during Spotting Supervision of high risk , antepartum Chief Complaint EORDERS Rhogam Inj VIABILITY NOB LMP 1/12 PAP, 14 WK OB Reason for Visit Depression affecting Herpes simplex infection during , antepartum [id number] History of pre-eclampsia Rh negative status during Spotting Supervision of high risk , antepartum Depression affecting Herpes simplex infection during , antepartum [id number] History of pre-eclampsia Rh negative status during Spotting Supervision of high risk , antepartum Chief Complaint EORDERS Rhogam Inj VIABILITY NOB LMP 1 PAP, 14 WK OB 19 wk ob ANATOMY 18-20 WEEKS Reason for Visit Depression affecting Herpes simplex infection during , antepartum [id number] History of pre-eclampsia Rh negative status during Spotting Supervision of high risk , antepartum Depression affecting Herpes simplex infection during , antepartum [id number] History of pre-eclampsia Rh negative status during Spotting Supervision of high risk , antepartum Depression affecting Herpes simplex infection during , antepartum [id number] History of pre-eclampsia Rh negative status during Spotting Supervision of high risk , antepartum Chief Complaint 14 WK OB 19 wk ob ANATOMY 18-20 WEEKS rhogam 23 WK OB 27 WK OB/GLUCOSE 30 WK OB R/O UTI R/O UTI palpitations Reason for Visit Depression affecting Herpes simplex infection during , antepartum [id number] History of pre-eclampsia Rh negative status during Spotting Supervision of high risk , antepartum Depression affecting Herpes simplex infection during , antepartum [id number] History of pre-eclampsia Rh negative status during Spotting Supervision of high risk , antepartum Rh negative status during Depression affecting Herpes simplex infection during , antepartum [id number] History of pre-eclampsia Rh negative status during Spotting Supervision of high risk , antepartum Chronic headache Arthritis pain, hip Depression affecting Herpes simplex infection during , antepartum [id number] History of pre-eclampsia Rh negative status during Sciatic leg pain Supervision of high risk , antepartum Chronic headache Abnormal glucose Back pain Depression affecting Herpes simplex infection during , antepartum [id number] History of pre-eclampsia Rh negative status during Supervision of high risk , antepartum Vaginal discharge during Chronic headache UTI in Chief Complaint 19 wk ob ANATOMY 18-20 WEEKS rhogam 23 WK OB 27 WK OB/GLUCOSE 30 WK OB R/O UTI R/O UTI palpitations DORSALGIA, 23 WKS /NST Reason for Visit Depression affecting Herpes simplex infection during , antepartum [id number] History of pre-eclampsia Rh negative status during Spotting Supervision of high risk , antepartum Rh negative status during Depression affecting Herpes simplex infection during , antepartum [id number] History of pre-eclampsia Rh negative status during Spotting Supervision of high risk , antepartum Chronic headache Arthritis pain, hip Depression affecting Herpes simplex infection during , antepartum [id number] History of pre-eclampsia Rh negative status during Sciatic leg pain Supervision of high risk , antepartum Chronic headache Abnormal glucose Back pain Depression affecting Herpes simplex infection during , antepartum [id number] History of pre-eclampsia Rh negative status during [...] affecting Herpes simplex infection during , antepartum [id number] History of pre-eclampsia Rh negative status during Spotting Supervision of high risk , antepartum Rh negative status during Depression affecting Herpes simplex infection during , antepartum [id number] History of pre-eclampsia Rh negative status during Spotting Supervision of high risk , antepartum Chronic headache Arthritis pain, hip Depression affecting Herpes simplex infection during , antepartum [id number] History of pre-eclampsia Rh negative status during Sciatic leg pain Supervision of high risk , antepartum Chronic headache Abnormal glucose Back pain Depression affecting Herpes simplex infection during , antepartum [id number] History of pre-eclampsia Rh negative status during Supervision of high risk , antepartum Vaginal discharge during Chronic headache UTI in Depression affecting Elevated bilirubin Hypokalemia Pruritus of Supervision of high risk , antepartum Elevated bilirubin Abnormal glucose Arthritis pain, hip Back pain Chlamydia infection affecting Cholestasis during Depression affecting Elevated bilirubin Herpes simplex infection during , antepartum [id number] History of pre-eclampsia Hx of cholecystectomy Hypokalemia Pruritus of Rh negative status during Sciatic leg pain Spotting Supervision of high risk , antepartum UTI in Vaginal discharge during Chronic headache Abnormal glucose Arthritis pain, hip Back pain Chlamydia infection affecting Depression affecting Elevated bilirubin Herpes simplex infection during , antepartum [id number] History of pre-eclampsia Hx of cholecystectomy Hypokalemia [...] affecting Herpes simplex infection during , antepartum [id number] History of pre-eclampsia Rh negative status during Spotting Supervision of high risk , antepartum Chronic headache Arthritis pain, hip Depression affecting Herpes simplex infection during , antepartum [id number] History of pre-eclampsia Rh negative status during Sciatic leg pain Supervision of high risk , antepartum Chronic headache Abnormal glucose Back pain Depression affecting Herpes simplex infection during , antepartum [id number] History of pre-eclampsia Rh negative status during Supervision of high risk , antepartum Vaginal discharge during Chronic headache UTI in Depression affecting Elevated bilirubin Hypokalemia Pruritus of Supervision of high risk , antepartum Elevated bilirubin Abnormal glucose Arthritis pain, hip Back pain Chlamydia infection affecting Cholestasis during Depression affecting Elevated bilirubin Herpes simplex infection during , antepartum [id number] History of pre-eclampsia Hx of cholecystectomy Hypokalemia Pruritus of Rh negative status during Sciatic leg pain Spotting Supervision of high risk , antepartum UTI in Vaginal discharge during Chronic headache Abnormal glucose Arthritis pain, hip Back pain Chlamydia infection affecting Depression affecting Elevated bilirubin Herpes simplex infection during , antepartum [id number] History of pre-eclampsia Hx of cholecystectomy Hypokalemia [...] affecting Herpes simplex infection during , antepartum [id number] History of pre-eclampsia Rh negative status during Supervision of high risk , antepartum Chronic headache Spotting Depression affecting Herpes simplex infection during , antepartum [id number] History of pre-eclampsia Rh negative status during Supervision of high risk , antepartum Chronic headache Arthritis pain, hip Sciatic leg pain Abnormal glucose Depression affecting Herpes simplex infection during , antepartum [id number] History of pre-eclampsia Rh negative status during Supervision of high risk , antepartum Chronic headache Back pain Vaginal discharge during UTI in Depression affecting Elevated bilirubin Supervision of high risk , antepartum Hypokalemia Pruritus of Elevated bilirubin Abnormal glucose Chlamydia infection affecting Depression affecting Elevated bilirubin Herpes simplex infection during , antepartum [id number] History of pre-eclampsia Rh negative status during Supervision of high risk , antepartum Chronic headache Arthritis pain, hip Back pain Cholestasis during Hypokalemia Pruritus of Sciatic leg pain Spotting UTI in Vaginal discharge during Abnormal glucose Chlamydia infection affecting Depression affecting Elevated bilirubin Herpes simplex infection during , antepartum [id number] History of pre-eclampsia Rh negative status during Supervision of high risk , antepartum Chronic headache Arthritis pain, hip Back pain Hypokalemia Pruritus of Sciatic leg pain Spotting Vaginal discharge during Abnormal glucose Chlamydia infection affecting Depression affecting Elevated bilirubin Herpes simplex infection during , antepartum [id number] History of pre-eclampsia Rh negative status during [...] affecting Herpes simplex infection during , antepartum [id number] History of pre-eclampsia Rh negative status during Supervision of high risk , antepartum Chronic headache Spotting Depression affecting Herpes simplex infection during , antepartum [id number] History of pre-eclampsia Rh negative status during Supervision of high risk , antepartum Chronic headache Arthritis pain, hip Sciatic leg pain Abnormal glucose Depression affecting Herpes simplex infection during , antepartum [id number] History of pre-eclampsia Rh negative status during Supervision of high risk , antepartum Chronic headache Back pain Vaginal discharge during UTI in Depression affecting Elevated bilirubin Supervision of high risk , antepartum Hypokalemia Pruritus of Elevated bilirubin Abnormal glucose Chlamydia infection affecting Depression affecting Elevated bilirubin Herpes simplex infection during , antepartum [id number] History of pre-eclampsia Rh negative status during Supervision of high risk , antepartum Chronic headache Arthritis pain, hip Back pain Cholestasis during Hypokalemia Pruritus of Sciatic leg pain Spotting UTI in Vaginal discharge during Abnormal glucose Chlamydia infection affecting Depression affecting Elevated bilirubin Herpes simplex infection during , antepartum [id number] History of pre-eclampsia Rh negative status during Supervision of high risk , antepartum Chronic headache Arthritis pain, hip Back pain Hypokalemia Pruritus of Sciatic leg pain Spotting Vaginal discharge during Abnormal glucose Chlamydia infection affecting Depression affecting Elevated bilirubin Herpes simplex infection during , antepartum [id number] History of pre-eclampsia Rh negative status during [...] affecting Herpes simplex infection during , antepartum [id number] History of pre-eclampsia Rh negative status during Spotting Supervision of high risk , antepartum Arthritis pain, hip Chronic headache Depression affecting Herpes simplex infection during , antepartum [id number] History of pre-eclampsia Rh negative status during Sciatic leg pain Supervision of high risk , antepartum Abnormal glucose Back pain Chronic headache Depression affecting Herpes simplex infection during , antepartum [id number] History of pre-eclampsia Rh negative status during Supervision of high risk , antepartum Vaginal discharge during UTI in Depression affecting Elevated bilirubin Hypokalemia Pruritus of Supervision of high risk , antepartum Elevated bilirubin Abnormal glucose Arthritis pain, hip Back pain Chlamydia infection affecting Cholestasis during Chronic headache Depression affecting Elevated bilirubin Herpes simplex infection during , antepartum [id number] History of pre-eclampsia Hypokalemia Pruritus of Rh negative status during Sciatic leg pain Spotting Supervision of high risk , antepartum UTI in Vaginal discharge during Abnormal glucose Arthritis pain, hip Back pain Chlamydia infection affecting Chronic headache Depression affecting Elevated bilirubin Herpes simplex infection during , antepartum [id number] History of pre-eclampsia Hypokalemia Pruritus of Rh negative status during Sciatic leg pain Spotting Supervision of high risk , antepartum Vaginal discharge during Abnormal glucose Chlamydia infection affecting Chronic headache Depression affecting Elevated bilirubin Herpes simplex infection during , antepartum [id number] History of pre-eclampsia Hypokalemia Pruritus of Rh negative status during Social discord Sterilization Supervision of high risk , antepartum False labor after 37 completed weeks of gestation Abnormal glucose Chlamydia infection affecting Chronic headache Depression affecting Elevated bilirubin Herpes simplex infection during , antepartum [id number] History of pre-eclampsia Rh negative status during Social discord Sterilization Supervision of high risk , antepartum Abnormal glucose Chlamydia infection affecting Chronic headache Depression affecting Elevated bilirubin Herpes simplex infection during , antepartum [id number] History of pre-eclampsia Rh negative status during Social discord Sterilization Supervision of high risk , antepartum Status post tubal ligation Abnormal glucose Chlamydia infection affecting Chronic headache Depression affecting Elevated bilirubin Herpes simplex infection during , antepartum [id number] History of pre-eclampsia Rh negative status during [...] bilirubin Herpes simplex infection during , antepartum [id number] History of pre-eclampsia Rh negative status during Social discord Sterilization Supervision of high risk , antepartum Abnormal glucose Chlamydia infection affecting Chronic headache Depression affecting Elevated bilirubin Herpes simplex infection during , antepartum [id number] History of pre-eclampsia Rh negative status during Social discord Sterilization Supervision of high risk , antepartum Abnormal glucose Chlamydia infection affecting Chronic headache Depression affecting Elevated bilirubin Herpes simplex infection during , antepartum [id number] History of pre-eclampsia Rh negative status during [...] section and content) DATE CREATED AUTHOR 11/25/2017 [facility] DATE CREATED AUTHOR AUTHOR'S ORGANIZ ATION 07/25/2018 [facility] DATE CREATED AUTHOR AUTHOR'S ORGANIZ ATION 09/04/2018 [facility] DATE CREATED AUTHOR AUTHOR'S ORGANIZ ATION 09/27/2018 [facility] DATE CREATED AUTHOR AUTHOR'S ORGANIZ ATION 10/26/2018 [employer] DATE CREATED AUTHOR AUTHOR'S ORGANIZ ATION 10/27/2018 [facility] DATE CREATED AUTHOR AUTHOR'S ORGANIZ ATION 02/15/[address] [facility] DATE CREATED AUTHOR AUTHOR'S ORGANIZ ATION 06/01/2021 [facility] DATE CREATED AUTHOR AUTHOR'S ORGANIZ ATION 06/02/2021 [facility] DATE CREATED AUTHOR AUTHOR'S ORGANIZ ATION 06/28/2021 [facility] DATE CREATED AUTHOR AUTHOR'S ORGANIZ ATION 11/21/2021 [facility] DATE CREATED AUTHOR AUTHOR'S ORGANIZ ATION 08/11/2022 [facility] DATE CREATED AUTHOR AUTHOR'S ORGANIZ ATION 08/11/2022 [facility] DATE CREATED AUTHOR AUTHOR'S ORGANIZ ATION 08/12/2022 [facility] DATE CREATED AUTHOR AUTHOR'S ORGANIZ ATION 10/11/2022 [facility] DATE CREATED AUTHOR AUTHOR'S ORGANIZ ATION 11/30/2022 [facility] DATE CREATED AUTHOR AUTHOR'S ORGANIZ ATION 11/30/2022 [employer] DATE CREATED AUTHOR AUTHOR'S ORGANIZ ATION 06/02/2023 [facility] DATE CREATED AUTHOR AUTHOR'S ORGANIZ ATION 02/09/2024 [facility] DATE CREATED AUTHOR AUTHOR'S ORGANIZ ATION 03/27/2024 [facility] DATE CREATED AUTHOR AUTHOR'S ORGANIZ ATION 08/18/2024 [facility] DATE CREATED AUTHOR AUTHOR'S ORGANIZ ATION 09/13/2024 [facility] DATE CREATED AUTHOR AUTHOR'S ORGANIZ ATION 12/08/2024 [facility] DATE CREATED AUTHOR AUTHOR'S ORGANIZ ATION 12/26/2024 [facility] DATE CREATED AUTHOR AUTHOR'S ORGANIZ ATION 01/07/[address] [facility] Reason for Visit (unrecogniz ed section and content) Reason Comments Flank Pain pt was seen at [place] yesterday and told to stay for treatment of kidneu stone. pt staets she left AMA and is here today for treatment. Reason Comments Blurred Vision Reason Comments Palpitations Specialty Diagnoses / Procedures Referred By Elder merritt Referred To Contact Cardiology Diagnoses heart pounding Maricel Barfield MD [address] [place] [address] Referral ID Status Reason Start Date Expiration Date Visits Re quested Visits Authorized [id number] Closed 05/16/2021 05/16/2022 1 1 Reason Comments [...] out Specialty Diagnoses / Procedures Referred By Elder merritt Referred To Contact Radiology Diagnoses , unspecified gestational age Procedures US OB TRANSVAGINAL Yaniv Pederson MD [address] [place] [address] Referral ID Status Reason Start Date Expiration Date Visits Re quested Visits Authorized [id number] Open 07/26/2022 07/26/2023 1 1 Reason Comments Referral Request Specialty Diagnoses / Procedures Referred By Elder merritt Referred To Contact Cardiovascular Medicine Diagnoses Tachycardia Near syncope Dizziness and giddiness Procedures HOLTER MONITOR - SHELTER Alina Alvarado MD [address] [facility] 1st [place] [address] [employer] [address] [place] [address] Referral ID Status Reason Start Date Expiration Date Visits Re quested Visits Authorized [id number] Closed 10/20/2022 11/14/2023 1 1 Reason Comments [...] Near syncope Tachycardia Procedures HOLTER MONITOR - SHELTER Alina Alvarado MD [address] [place], [place] [id number] Rashard [employer] [address] [place] [address] Referral ID Status Reason Start Date Expiration Date Visits Re quested Visits Authorized [id number] Closed 05/24/2023 06/17/2024 1 1 Reason Comments Vaginal Bleeding Pt has been having h eavy menstrual bleeding x approx 36 hours. Denies , has had tubal ligation. Reports lower abd cramping, mild light-headedness and headache. Specialty Diagnoses / Procedures Referred By Elder merritt Referred To Contact Diagnoses Near syncope Procedures TILT TABLE TEST Alina Alvarado MD [address] [place], [place] [id number] Referral ID Status Reason Start Date Expiration Date Visits Re quested Visits Authorized [id number] Closed 05/16/2023 06/09/2024 1 1 Reason Onset [...] Comments Ovarian Cyst Reason Comments Faxed to [facility] Bernardo Sibley RN - 09/01/2018 9:05 PM EDTSBernardo armando RN - 09/01/2018 8:50 PM EDTSEden sanchez EMT - 09/01/2018 7:28 PM EDTUtAndry merritt RN - 09/01/2018 7:23 PM EDT ED Notes (unrecognized secti on and content) IN bed. No distress. Breathing even and unlabored. VS updated. Denies any needs. SRx2. Call light in reach. PA Davide fink. Call light answered and patient requesting [...] Care Teams (unrecognized sec tion and content) Assessment Coordinator Relationship Specialty Start Date End Date Davide Chao MD [address] [facility] [address] [place] [address] PCP - General Family Medicine 05/13/15 Assessment Coordinator Relationship Specialty Start Date End Date Davide Chao MD [address] [place] [address] [place] [id number] PCP - General Family Medicine 06/23/17 Assessment Coordinator Relationship Specialty Start Date End Date Davide Chao MD [address] [facility] [address] [place] [address] PCP - General Family Medicine 05/13/15 Assessment Coordinator Relationship Specialty Start Date End Date Davide Chao MD [address] [place] [address] PCP - General 04/07/09 Assessment Coordinator Relationship Specialty Start Date End Date Davide Chao MD [address] [place] [address] PCP - General 04/07/09 Assessment Coordinator Relationship Specialty Start Date End Date Davide Chao MD [address] [place] [address] PCP - General 04/07/09 Assessment Coordinator Relationship Specialty Start Date End Date Davide Chao MD [address] [place] [address] PCP - General 04/07/09 Assessment Coordinator Relationship Specialty Start Date End Date Davide Chao [address] [place] [address] PCP - General 08/22/18 Assessment Coordinator Relationship Specialty Start Date End Date Davide Chao [address] [place] [address] PCP - General 08/22/18 Assessment Coordinator Relationship Specialty Start Date End Date Davide Chao [address] [place] [address] PCP - General 08/22/18 Assessment Coordinator Relationship Specialty Start Date End Date Davide Chao [address] [place] [address] PCP - General 08/22/18 Team Status: Active [...] MD Primary Care Provider Active Love Castillo ORTHOPEDIC SHOES SALESPERSON, ORTHOPEDIC SHOES SALESPERSON-C Attending Provider Active Team Status: Inactive Member Role Status Dates Dr. Davide Chao MD Primary Care Provider, Referr ing Provider Active Dr. Melissa Brasher DO Attending Provider Activ e Team Status: Inactive Member Role Status Dates Dr. Davide Chao MD Primary Care Provider Active Love Castillo ORTHOPEDIC SHOES SALESPERSON, ORTHOPEDIC SHOES SALESPERSON-C Attending Provider Active Team Status: Inactive Member Role Status Dates Dr. Davide Chao MD Primary Care Provider Active Dr. Melissa Brasher DO Attending Provider, Refe rring Provider Active Assessment Coordinator Relationship Specialty Start Date End Date Davide Chao MD [address] [place], [place] [address] PCP - General 04/07/09 Assessment Coordinator Relationship Specialty Start Date End Date Davide Chao MD [address] [place] [phone] PCP - General Family Medicine 06/23/17 Team Status: Inactive Member Role Status Dates Dr. Davide Chao MD Primary Care Provider, Referr ing Provider Active Laura Salinas CNM Attending Provider Active Team Status: Inactive Member Role Status Dates Dr. Davide Chao MD Primary Care Provider, Referr ing Provider Active Love Castillo ORTHOPEDIC SHOES SALESPERSON, ORTHOPEDIC SHOES SALESPERSON-C Attending Provider Active Team Status: Inactive Member [...] Active Jeanette Roach CNM Other Provider Active Assessment Coordinator Relationship Specialty Start Date End Date Davide Chao MD [address] [place] [address] PCP - General 04/07/09 Team Status: Inactive Member Role Status Dates Dr. Davide Chao MD Primary Care Provider Active Dr. Car Gage DO Attending Provider, Emergency Provider Active Team Status: Inactive Member Role Status Dates Dr. Davide Chao MD Primary Care Provider Active Dr. Yuri Crenshaw MD Other Provider Active Love Castillo ORTHOPEDIC SHOES SALESPERSON, ORTHOPEDIC SHOES SALESPERSON-C Other Provider Active Laura Salinas CNM Attending Provider, Referring Pr ovider Active Assessment Coordinator Relationship Specialty Start Date End Date Davide Chao MD [address] [place] [address] PCP - General 04/07/09 Team Status: Inactive Member Role Status Dates Dr. Davide Chao MD Primary Care Provider, Referr ing Provider Active Dr. Zander Morales MD Attending Provider Active Team Status: Active Member Role Status Dates Dr. Davide Chao MD Primary Care Provider Active Dr. Yuri Crenshaw MD Other Provider Active Love Castillo ORTHOPEDIC SHOES SALESPERSON, ORTHOPEDIC SHOES SALESPERSON-C Other Provider Active Laura Salinas CNM Attending [...] Dr. Yuri Crenshaw MD Other Provider Active Assessment Coordinator Relationship Specialty Start Date End Date Davide Chao MD [address] [place] [address] PCP - General 06/13/19 Team Status: Active [...] CNM Attending Provider, Referring Pro vider Active Assessment Coordinator Relationship Specialty Start Date End Date Davide Chao MD [address] [place] [address] PCP - General 04/07/09 Assessment Coordinator Relationship Specialty Start Date End Date Davide Chao MD [address] [place] [address] PCP - General 04/07/09 Assessment Coordinator Relationship Specialty Start Date End Date Davide Chao MD [address] [place] [address] PCP - General 06/13/19 Assessment Coordinator Relationship Specialty Start Date End Date Davide Chao MD [address] [place] [address] PCP - General 04/07/09 Assessment Coordinator Relationship Specialty Start Date End Date Davide Chao MD [address] [place] [address] PCP - General Family Medicine 06/23/17 Assessment Coordinator Relationship Specialty Start Date End Date Davide Chao MD [address] [place] [address] PCP - General 06/13/19 Assessment Coordinator Relationship Specialty Start Date End Date Davide Chao MD [address] [place] [address] PCP - General Family Medicine 06/23/17 Team Status: Active Member Role Status Dates Dr. Davide Chao MD Primary Care Provider Active Love Castillo ORTHOPEDIC SHOES SALESPERSON, ORTHOPEDIC SHOES SALESPERSON-C Attending Provider, Referring Provider Active Team Status: Inactive Member Role Status Dates Dr. Davide Chao MD Primary Care Provider Active Love Castillo ORTHOPEDIC SHOES SALESPERSON, ORTHOPEDIC SHOES SALESPERSON-C Attending Provider, Referring Provider Active Assessment Coordinator Relationship Specialty Start Date End Date Davide Chao MD [address] [place] [address] PCP - General 04/07/09 Assessment Coordinator Relationship Specialty Start Date End Date Davide Chao MD [address] [place] [address] PCP - General 04/07/09 Assessment Coordinator Relationship Specialty Start Date End Date Davide Chao MD [address] [place] [address] PCP - General 04/07/09 Assessment Coordinator Relationship Specialty Start Date End Date Davide Chao MD [address] [place] [address] PCP - General 04/07/09 Assessment Coordinator Relationship Specialty Start Date End Date Davide Chao MD [address] [place] [address] PCP - General 04/07/09 Assessment Coordinator Relationship Specialty Start Date End Date Davide Chao MD [address] [place] [address] PCP - General 04/07/09 Assessment Coordinator Relationship Specialty Start Date End Date Davide Chao MD [address] [place] [address] PCP - General 04/07/09 Assessment Coordinator Relationship Specialty Start Date End Date Davide Chao MD [address] [place] [address] PCP - General 04/07/09 Harini Rock APRN.LIFTER DRIVER [address] [place] [address] Staffing And Scheduling Coordinator Family Medicine 05/12/24 Isaac Marie APRN.LIFTER DRIVER [address] [place] [address] Staffing And Scheduling Coordinator [facility] 05/21/24 Assessment Coordinator Relationship Specialty Start Date End Date Davide Chao MD [address] [place] [address] PCP - General 04/07/09 Harini Rock APRN.LIFTER DRIVER [address] [place] [address] Staffing And Scheduling Coordinator Family Medicine 05/12/24 Isaac Marie APRN.LIFTER DRIVER [address] [place] [address] Staffing And Scheduling Coordinator [facility] 05/21/24 Assessment Coordinator Relationship Specialty Start Date End Date Davide Chao MD [address] [place] [address] PCP - General 04/07/09 Harini Rock APRN.LIFTER DRIVER [address] [place] [address] Staffing And Scheduling Coordinator Family Medicine 05/12/24 Isaac Marie APRN.LIFTER DRIVER [address] [place], [place] [address] [facility] 05/21/24 Assessment Coordinator Relationship Specialty Start Date End Date Davide Chao MD [address] [place], [place] [address] PCP - General 04/07/09 Harini Rock, DENISSE.LIFTER DRIVER [address] [place], [place] [address] Staffing And Scheduling Coordinator [facility] 05/12/24 Isaac Marie APRN.LIFTER DRIVER [address] [place], [place] [address] [facility] Team Status: Active Member Role Status Dates Dr. Davide Chao MD Primary Care Provider Active Team Status: Inactive Member Role Status Dates Dr. Davide Chao MD Primary Care Provider Active Start: June 10, 2024 End: June 10, 2024 Dr. Davide Chao MD Referring Provider Active Start: June 10, 2024 End: June 10, 2024 Love Castillo ORTHOPEDIC SHOES SALESPERSON, ORTHOPEDIC SHOES SALESPERSON-C Attending Provider Active Start: June 10, 2024 End: June 10, 2024 Team Status: Inactive Member Role Status Dates Dr. Davide Chao MD Primary Care Provider Active Start: June 10, 2024 End: June 10, 2024 Love Castillo ORTHOPEDIC SHOES SALESPERSON, ORTHOPEDIC SHOES SALESPERSON-C Attending Provider Active Start: June 10, 2024 End: June 10, 2024 Love Castillo ORTHOPEDIC SHOES SALESPERSON, ORTHOPEDIC SHOES SALESPERSON-C Referring Provider Active Start: June 10, 2024 [...] August 21, 2024 End: August 21, 2024 Assessment Coordinator Relationship Specialty Start Date End Date Davide Chao MD [address] [place], [place] [address] PCP - General 04/07/09 Harini Rock APRN.LIFTER DRIVER [address] [place] [address] Staffing And Scheduling Coordinator Family Medicine 05/12/24 Isaac Marie, [employer].LIFTER DRIVER [address] [place] [address] [facility] Assessment Coordinator Relationship Specialty Start Date End Date Davide Chao MD [address] [place] [address] PCP - General 04/07/09 Harini Rock APRN.LIFTER DRIVER [address] [place] [address] Staffing And Scheduling Coordinator [facility] 05/12/24 Isaac Marie APRN.LIFTER DRIVER [address] [place] [address] [facility] 05/21/24 Assessment Coordinator Relationship Specialty Start Date End Date Davide Chao MD [address] [place] [address] PCP - General 04/07/09 Harini Rock APRN.LIFTER DRIVER [address] [place] [address] [facility] 05/[facility]24 10/16/24 Isaac Marie APRN.LIFTER DRIVER [address] [place] [address] [facility] 05/21/24 Team Status: Inactive Member Role Status Dates Dr. Davide Chao MD Primary Care Provider Active Start: October 26, 2024 End: October 26, 2024 Dr. Melissa Brasher , Attending Provider Activ e Start: October 26, 2024 End: October 26, 2024 Dr. Melissa Brasher , Referring Provider Activ e Start: October 26, 2024 End: October 26, 2024 Assessment Coordinator Relationship Specialty Start Date End Date Davide Chao MD [address] [place], [place] [address] PCP - General 04/07/09 Harini Rock APRN.LIFTER DRIVER [address] [place], [place] [address] Staffing And Scheduling Coordinator Family Medicine 05/12/24 10/16/24 Isaac Marie APRN.LIFTER DRIVER [address] [place], [place] [address] [facility] Team Status: Inactive Member Role [...] Care Provider Active Start: December 31, 2024 MAXX FULLER Attending Provider Active Star t: December 31, 2024 ALINAROBINA BLAKEPRETERESA Referring Provider Active Star t: December 31, [...] or prosecute any alcohol or drug abuse patient.[facility] Hospital[facility] the event this information is protected by the Federal Confidentiality of Alcohol and Drug Abuse Patient Records regulations: The Federal rules restrict any use of the information to criminally investigate or prosecute any alcohol or drug abuse patient.[facility] HospitalIn the event this information is protected by the Federal Confidentiality of Alcohol and Drug Abuse Patient Records regulations: The Federal rules restrict any use of the information to criminally investigate or prosecute any alcohol or drug abuse patient.[facility] HospitalIn the event this information is protected by the Federal Confidentiality of Alcohol and Drug Abuse Patient Records regulations: The Federal rules restrict any use of the information to criminally investigate or prosecute any alcohol or drug abuse patient.[facility] HospitalIn the event this information is protected by the Federal Confidentiality of Alcohol and Drug Abuse Patient Records regulations: The Federal rules restrict any use of the information to criminally investigate or prosecute any alcohol or drug abuse patient.[facility] HospitalIn the event this information is protected by the Federal Confidentiality of Alcohol and Drug Abuse Patient Records regulations: The Federal rules restrict any use of the information to criminally investigate or prosecute any alcohol or drug abuse patient.[facility] HospitalIn the event this information is protected by the Federal Confidentiality of Alcohol and Drug Abuse Patient Records regulations: The Federal rules restrict any use of the information to criminally investigate or prosecute any alcohol or drug abuse patient.[facility] HospitalIn the event this information is protected by the Federal Confidentiality of Alcohol and Drug Abuse Patient Records regulations: The Federal rules restrict any use of the information to criminally investigate or prosecute any alcohol or drug abuse patient.[facility] HospitalIn the event this information is protected by the Federal Confidentiality of Alcohol and Drug Abuse Patient Records regulations: The Federal rules restrict any use of the information to criminally investigate or prosecute any alcohol or drug abuse patient.[facility] HospitalIn the event this information is protected by the Federal Confidentiality of Alcohol and Drug Abuse Patient Records regulations: The Federal rules restrict any use of the information to criminally investigate or prosecute any alcohol or drug abuse patient.[facility] HospitalIn the event this information is protected by the Federal Confidentiality of Alcohol and Drug Abuse Patient Records regulations: The Federal rules restrict any use of the information to criminally investigate or prosecute any alcohol or drug abuse patient.[facility] HospitalIn the event this information is protected by the Federal Confidentiality of Alcohol and Drug Abuse Patient Records regulations: The Federal rules restrict any use of the information to criminally investigate or prosecute any alcohol or drug abuse patient.[facility] HospitalIn the event this information is protected by the Federal Confidentiality of Alcohol and Drug Abuse Patient Records regulations: The Federal rules restrict any use of the information to criminally investigate or prosecute any alcohol or drug abuse patient.[facility] HospitalIn the event this information is protected by the Federal Confidentiality of Alcohol and Drug Abuse Patient Records regulations: The Federal rules restrict any use of the information to criminally investigate or prosecute any alcohol or drug abuse patient.[facility] HospitalIn the event this information is protected by the Federal Confidentiality of Alcohol and Drug Abuse Patient Records regulations: The Federal rules restrict any use of the information to criminally investigate or prosecute any alcohol or drug abuse patient.[facility] HospitalIn the event this information is protected by the Federal Confidentiality of Alcohol and Drug Abuse Patient Records regulations: The Federal rules restrict any use of the information to criminally investigate or prosecute any alcohol or drug abuse patient.[facility] HospitalIn the event this information is protected by the Federal Confidentiality of Alcohol and Drug Abuse Patient Records regulations: The Federal rules restrict any use of the information to criminally investigate or prosecute any alcohol or drug abuse patient.[facility] HospitalIn the event this information is protected by the Federal Confidentiality of Alcohol and Drug Abuse Patient Records regulations: The Federal rules restrict any use of the information to criminally investigate or prosecute any alcohol or drug abuse patient.[facility] HospitalIn the event this information is protected by the Federal Confidentiality of Alcohol and Drug Abuse Patient Records regulations: The Federal rules restrict any use of the information to criminally investigate or prosecute any alcohol or drug abuse patient.[facility] HospitalIn the event this information is protected by the Federal Confidentiality of Alcohol and Drug Abuse Patient Records regulations: The Federal rules restrict any use of the information to criminally investigate or prosecute any alcohol or drug abuse patient.[facility] HospitalIn the event this information is protected by the Federal Confidentiality of Alcohol and Drug Abuse Patient Records regulations: The Federal rules restrict any use of the information to criminally investigate or prosecute any alcohol or drug abuse patient.[facility] HospitalIn the event this information is protected by the Federal Confidentiality of Alcohol and Drug Abuse Patient Records regulations: The Federal rules restrict any use of the information to criminally investigate or prosecute any alcohol or drug abuse patient.[facility] HospitalIn the event this information is protected by the Federal Confidentiality of Alcohol and Drug Abuse Patient Records regulations: The Federal rules restrict any use of the information to criminally investigate or prosecute any alcohol or drug abuse patient.[facility] HospitalIn the event this information is protected by the Federal Confidentiality of Alcohol and Drug Abuse Patient Records regulations: The Federal rules restrict any use of the information to criminally investigate or prosecute any alcohol or drug abuse patient.[facility] HospitalIn the event this information is protected by the Federal Confidentiality of Alcohol and Drug Abuse Patient Records regulations: The Federal rules restrict any use of the information to criminally investigate or prosecute any alcohol or drug abuse patient.[facility] HospitalIn the event this information is protected by the Federal Confidentiality of Alcohol and Drug Abuse Patient Records regulations: The Federal rules restrict any use of the information to criminally investigate or prosecute any alcohol or drug abuse patient.[facility] HospitalIn the event this information is protected by the Federal Confidentiality of Alcohol and Drug Abuse Patient Records regulations: The Federal rules restrict any use of the information to criminally investigate or prosecute any alcohol or drug abuse patient.[facility] HospitalIn the event this information is protected by the Federal Confidentiality of Alcohol and Drug Abuse Patient Records regulations: The Federal rules restrict any use of the information to criminally investigate or prosecute any alcohol or drug abuse patient.[facility] HospitalIn the event this information is protected by the Federal Confidentiality of Alcohol and Drug Abuse Patient Records regulations: The Federal rules restrict any use of the information to criminally investigate or prosecute any alcohol or drug abuse patient.[facility] HospitalIn the event this information is protected by the Federal Confidentiality of Alcohol and Drug Abuse Patient Records regulations: The Federal rules restrict any use of the information to criminally investigate or prosecute any alcohol or drug abuse patient.[facility] HospitalIn the event this information is protected by the Federal Confidentiality of Alcohol and Drug Abuse Patient Records regulations: The Federal rules restrict any use of the information to criminally investigate or prosecute any alcohol or drug abuse patient.[facility] HospitalIn the event this information is protected by the Federal Confidentiality of Alcohol and Drug Abuse Patient Records regulations: The Federal rules restrict any use of the information to criminally investigate or prosecute any alcohol or drug abuse patient.[facility] Ordered Prescriptions (unrec ognized section and [...] pain scores based on patient preference? Yes 233 (Given - Provider: Jessica Tijerina, MICHAEL) ondansetron ODT (Zofran-ODT) disintegrating tablet 4 mg (COMPLETED) 4 mg, oral, Once, On Mon06/06/23 at 2335, For 1 dose 2339 (Given - Provider: Jessica Tijerina, MICHAEL) sodium chloride 0.9 % bolus 1,000 mL (COMPLETED) 1,000 mL, intravenous, at 1,000 mL/hr, Administer over 1 Hours, Once, On Mon06/06/23 at 2320, For 1 dose 2339 (New Bag - Provider: Jessica Tijerina, MICHAEL) 0039 (Stopped - Provider: Jessica Tijerina RN) [...] BE BASED ON THE PRIMARY CLINICAL RECORDS. [facility]. provides no warranty or guarantee of the accuracy or completeness of information in this document.
[2025-01-09 21:12] LABS: hCG Titer Quant., Serum 459 mIU/mL (<9 non-preg)
== END | disposition home or self-care (01) ==
LOC: LAB 19:56
PROVIDERS: PCP Family Medicine; Visit Provider Obstetrics & Gynecology
DX: Z34.90 Encounter for supervision of normal pregnancy, unspecified, unspecified trimester (principal); Z98.890 Other specified postprocedural states
CPT/HCPCS: 36415; 84702

== ENCOUNTER → 2025-01-11 | Outpatient (CLI) | payer MEDICAID, SELFPAY ==
--- OUTSIDE RECORDS SUMMARY | 2025-01-11 16:06 | XMS RPT_ITS | CCD ---
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 [facility] [place], [address] Procedure Reporton 5 Procedure Report [facility] Medical Records Department [address] [place] [address] Procedure Report 12/20/24 1712 MR#: [id number] Acct: [id number] Name: QUE SANCHEZ Rep #: [id number] : 1990 34 From: Melissa Brasher DO PCP: Dr. Davide Chao MD Status:REG CLI Location: RAD Problems Associated Problem List Diagnoses (1) Tubal reversal surgical follow up: Multi Select Codes Urinary/Genital Urinary/Genital CPT Codes: 47070 HSG/SIS Non-invasive Procedural Procedure Information Date of Procedure: 12/23/24 Pre-Procedure Diagnosis: tubal reversal follow up Post-Procedure Diagnosis: tubal reversal follow up Procedure Performed:: HSG shank skinner: No Description of procedure: Operative details: Patient [...] bilateral fallopian tubes Complications Complications: No 12/23/24 1714 Cosigner Signature (if applicable): CC: Dr. Melissa Brasher DO; Dr. Davide Chao MD Signed Normal [facility] Salpingogramon 12-20-2024 Salpingogram [facility] Imaging Services [address] [place], [place] [address] Salpingogram MR#: [id number] Acct: [id number] Name: QUE SANCHEZ Rep #: [id number] : 1990 F 34 From: Yash canales MD PCP: Dr. Davide Chao MD Status: REG CLI Study: Salpingogram Date of Exam: 12/20/24 Exam# [id number] Ordering Dr: Melissa Brasher DO PROCEDURE: SALPINGOGRAM 12/20/2024 REASON FOR EXAM: HSG TECHNIQUE: SALPINGOGRAM COMPARISON: None FINDINGS: Hysterosalpingogram was performed by the cna caregiver. Imaging was provided. Dose report: 21 seconds of fluoroscopy. 8.98 mGy. 2 images were submitted. The uterus is unremarkable. Both fallopian tubes are patent with free spill. RAD/Salpingogram IMPRESSION: Unremarkable hysterosalpingogram. Reading Location: [place] [address] CC: Dr. Melissa Brasher DO; Dr. Davide Chao MD Service Secretary: Signed Normal [facility] ED MED ADMINISTRATION DETAIL on 12-06-2024 ED MED ADMINISTRATION DETAIL [employer] Medication Administration Record [address] [address] [id number] 12/06/2024 Patient: QUE SANCHEZ Sex: Female : [...] Kaleb Carrion R.N. 1 of 1 Normal [facility] ED NURSES CLINICAL NOTEon ED NURSES CLINICAL NOTE Nurse Narrative Nurse Clinical [address] [address] [id number] 12/06/2024 00:09:00 Patient: QUE SANCHEZ Sex: Female : 1990 Age: 34y Disposition: Discharge to Home Disposition Decision Time: 01:54 12/06/2024 Departure Time: 01:55 12/06/2024 TRIAGE Arrived by private vehicle. Triage time: 00:10 12/06/2024. -- 00:18 12/06/24 EDT Kaleb Carrion R.N. Acuity: LEVEL 3. Chief Complaint: VOMITING and (pt states she vomits every day for past 6 months, now w/ c/o sudanese garcia stuck in throat). 00:10 12/06/24. Alert. No acute distress. (anxious). 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 SEPSIS SCREEN: NEGATIVE. SIRS criteria negative. No possible sources of infection. -- 00:26 12/06/24 EDT Kaleb Carrion R.N. 00:23 12/06/24. BP: 118/83 MAP: 95. HR: 99. RR: 16. O2 saturation: 100% Temperature: 97.9 F (temporal). Pain level now 5/10. -- 00:23 12/06/24 EDT Kaleb Carrion R.N. Measurements: 00:24 12/06/24 Wt: 77.1 kg, Ht/Mack: 66.0 in, BMI: 27.44 -- 00:12/06/24 EDT Kaleb Carrion R.N. 1 of 4 [...] FOR PAIN Stopped 12/06/2024. -- 01:47 12/06/24 CARLOST Kaleb Carrion R.N. gabapentin 300 mg capsule: Stopped 12/06/2024. -- 01:47 12/06/24 EDT Kaleb Carrion R.N. atomoxetine 18 mg capsule: Stopped 12/06/2024. -- 01:47 12/06/24 EDT Kaleb Carrion R.N. atomoxetine 40 mg capsule: Stopped 12/06/2024. -- 01:47 12/06/24 EDT Kaleb Carrion R.N. 00:10 12/06/24. Preferred Pharmacy: ([facility]). -- 00:12/06/24 CARLOST Kaleb Carrion R.N. Allergies: no known drug allergies -- 00:12/06/24 CARLOST Kaleb Crarion R.N. Problems: Anxiety disorder -- 00:12/06/24 CARLOST Kaleb Carrion R.N. Atrial Fibrillation -- 00:12/06/24 [...] assessment completed. No risk factors identified. -- 00:12/06/24 EDT Kaleb Carrion R.N. Interventions 00:12/06/24. Identification band on patient. Advanced care plan. Patient does not have advanced directive. -- 00:12/06/24 EDT Kaleb Carrion R.N. PHYSICAL ASSESSMENT 00:38 12/06/24. GENERAL / NEURO / PSYCH: Alert. Oriented X 4. Appears in no acute distress. Appears anxious. ( pt c/o Ivorian garcia stuck in throat, concerned could be [...] Nurse N (more content not included)... Normal [facility] ED ORDER SHEET (CPOE ONLY)on 12-06-2024 ED ORDER SHEET (CPOE ONLY) Order Sheet Order Sheet [address] [place] [address] [id number] 12/06/2024 Patient: QUE SANCHEZ Sex: Female : 1990 Age: 34y MEASUREMENTS: Wt: 77.1 kg, Ht/Mack: 66.0 in, BMI: 27.44 ALLERGIES: No known drug allergies MEDICATION/IV/DRIP/FLUI D ORDERS Order Description Priority Entered Acknowledged Completed Zofran IVP4 mg (NOW x1) 00:17 12/06/2024 00:26 00:38 Tristin Eduardo D.O. 12/06/2024 12/06/2024 Kaleb Clements R.N. R.N. Glucagon IVP2 mg (NOW x1) 00:17 12/06/2024 00:26 00:38 Tristin Eduardo D.O. 12/06/2024 12/06/2024 Kaleb Clements R.N. R.N. LAB ORDERS Order Description Priority Entered Acknowledged Collected Completed Urine - HCG Stat 00:34 12/06/2024 Cancelled: Other Stat Tristin Eduardo, 00:40 EDT Tristin Eduardo, D.O. D.O. HCG, Qual Serum Stat Stat 00:41 12/06/2024 00:49 12/06/2024 00:49 12/06/2024 Kaleb Swanson Charles Wilbur, 1 of 2 Order Sheet D.Celia R.N. R.N. DIAGNOSTIC STUDY ORDERS Order Description Priority Entered Acknowledged Completed STAFF ORDERS Order Description Priority Entered Acknowledged Collected Completed IV Saline Lock 00:17 12/06/2024 00:26 12/06/2024 00:54 12/06/2024 Kaleb Swanson Charles Wilbur, Ko R.N. R.N. [Electronically signed by Tristin Eduardo D.O. (12/06/2024 03:20 EDT)] 2 of 2 Normal [facility] ED PHYSICIAN CLINICAL REPORT on 12-06-2024 ED PHYSICIAN CLINICAL REPORT Narrative Physician Clinical Narrative [address] [address] [id number] 12/06/2024 00:09:00 Patient: QUE SANCHEZ Sex: Female [...] at an event tonight and had multiple Ivorian fries. She said she believes she has [...] after administration (more content not included)... Normal [facility] ED [facility] 12-06-2024 ED [place] [address] [place] [address] [id number] 12/06/2024 Patient: QUE SANCHEZ Sex: Female : 1990 Age: 34y Item Facility Professional Category Description Code Code Quantity Fee Total Nurse/E/M EMERGENCY 018832 1 $0.00 $0.00 DEPARTMENT VISIT HIGH/URGENT SEVERITY (37797-23) Nurse/IV/IM/Infusions IVP additional 338863 1 $0.00 $0.00 push (35454) Nurse/IV/IM/Infusions IVP initial 138840 1 $0.00 $0.00 (95853) Grand Total $0.00 Providers Tristin Eduardo D.O. Chief Complaint globus sensation. 1 of 2 Superbill Principal Diagnosis Esophageal foreign body: food. ICD-10 Codes T18.128A: Food in esophagus causing other injury, initial encounter 2 of 2 Normal [facility] ED VISIT SUMMARYon ED VISIT SUMMARY Visit Overview Visit Overview [facility] [address] [place] [address] [id number] 12/06/2024 Patient: QUE SANCHEZ Sex: Female : 1990 Age: 34y 12/06/2024 03:20 AM EDT ED Arrival:00:09 12/06/2024 EDT Status: Recent Travel:no Language:eng Adv Directive:No Isolation Status: Ethnicity:N Fall Risk:no risk Infectious Disease Exposure:no Measurements:5'6 / 167.6 Self-Harm Status:risk Sepsis Screen:negative cm 170.0 lb / 77.1 kg Chief Complaint:VOMITING, (anxious), and (pt states she vomits every day for past 6 months, now w/ c/o sudanese garcia stuck in throat) ALLERGIES No Known Drug Allergies HOME MEDICATIONS Ativan 1 mg tablet: 1 tablet five times a day as needed. atomoxetine 18 mg capsule: Stopped 12/06/2024. atomoxetine 40 mg capsule: Stopped 12/06/2024. gabapentin 300 mg capsule: Stopped 12/06/2024. 1 of 3 Visit Overview hydrocodone 5 mg-acetaminophen 325 [...] then states that she passed the object (sudanese garcia), when asked did she vomit it out she replied no, I just swallowed it.). VITAL SIGNS First Vitals Last Vitals Temp 00:17 12/06/24 Temp 01:50 12/06/24 BP 00:12/06/24 BP 01:50 12/06/24 HR 00:17 12/06/24 97 HR 01:50 12/06/24 RR 00:17 12/06/24 RR 01:50 12/06/24 16 O2 Sat 00:12/06/24 100% O2 Sat 01:50 12/06/24 Pain 00:17 12/06/24 Pain 01:50 12/06/24 0 ETCO2 00:17 12/06/24 ETCO2 01:50 12/06/24 GCS 00:17 12/06/24 GCS 01:50 12/06/24 RTS 00:17 12/06/24 RTS 01:50 12/06/24 PROCEDURES NURSING INTERVENTIONS LABS / STUDIES LABS / STUDIES ORDERED HCG, Qual Serum CLINICAL IMPRESSION ESOPHAGEAL FOREIGN BODY: FOOD 3 of 3 Normal [facility] ED VITALS FLOW SHEETon 12-06 ED VITALS FLOW SHEET Vitals Vital Sign Flow Sheet [facility] [address] [place] [address] [id number] 12/06/2024 Patient: QUE SANCHEZ Sex: Female : [...] 12/06/2024 97 100% 2 of 2 Normal [facility] SERUM QUALon 12-06 EXTERNAL QC DONE? YES Normal [facility] Comment on above: Performed By: #### 2 [id number] #### [facility],[address] [place] [address] INTERNAL QC PASS Normal [facility] Comment on above: Performed By: #### 2 95829 #### [facility],[address] [place] [address] SER Negative Normal NEGATIVE [facility] Comment on above: Performed By: #### 2 26391 #### [facility],[address] [place], [place] [address] L499.0043on 11-24-2024 Trop T High Sen Normal <=14 [facility] Comment on above: Result Comment: Canc elled via OM: Order cancelled - Patient discharged Performed By: #### L 499.0043 #### [facility] Laboratory [facility] [address] [place], [place], [phone] 12 Lead EKGon 11-23-2024 12 Lead EKG [facility] Cardiovascular Services [address] [place] [address] 12 Lead EKG 11/23/242024 MR#: [id number] Acct: [id number] Name: QUE SANCHEZ Rep #: [id number] : 1990 34 From: Louis Rodriguez MD [...] rhythm Normal ECG Confirmed by Louis Rodriguez ([id number]), assistant film editor NATALIE OAKLEY ([id number]) on 11/26/2024 11:50:27 AM Referred By: Confirmed By: Louis Rodriguez 11/26/24 1150 Date Louis Rodriguez MD CC: Dr. Davide Chao MD; Dr. Ryan Pearson DO Signed Normal [facility] Absolute lymphocyte countOrd ered By: Ryan Pearson on 11-23-2024 Lymphocytes Auto (Unsp spec) [#/Vol] 2.84 10*3/uL 0.83-4.51 [facility] Absolute neutrophil countOrd ered By: Ryan Pearson on 11-23-2024 Neutrophils (Bld) [#/Vol] 3.9 10*3/uL 2.0-7.7 [facility] Anion gap in Serum or Plasma Ordered By: Ryan Pearson on 11-23-2024 Anion gap [Moles/Vol] 16 mmol/L High 5-15 [facility] Automated lymphocyte count a s percentage of total leukocytesOrdered By: Ryan Pearson on 11-23-2024 Lymphocytes/100 WBC Auto (Unsp spec) 35.9 % 19-41 [facility] BUN/creatinine ratioOrdered By: Ryan Pearson on 11-23-2024 Urea nitrogen/Creatinine [Mass ratio] 10.6 mg/mg - [facility] Basic Metabolic Profile (BMP )on 11-23-2024 BUN/CRE 10.6 RATIO Normal 03-24 [facility] Comment on above: Performed By: #### L 7000.1800, L7400.0280, M100.2000, M100.3200 #### [facility] Laboratory [address] [place], [address] ECRCL 79.55 ml/min Normal 50-250 [facility] Comment on above: Performed By: #### L 7000.1800, L7400.0280, M100.2000, M100.3200 #### [facility] Laboratory [address] [place], [address] GAP 16 High 5-15 [facility] Comment on above: Performed By: #### L 7000.1800, L7400.0280, M100.2000, M100.3200 #### [facility] Laboratory [address] [place], [address] Potassium [Moles/Vol] 3.7 mmol/L Normal 3.3-5.1 [facility] Comment on above: Performed By: #### L 7000.1800, L7400.0280, M100.2000, M100.3200 #### [facility] Laboratory [address] [place], [address] Basophil percentageOrdered B y: Ryan Pearson on 11-23-2024 Basophils/100 WBC (Bld) 0.6 % 0-1 [facility] CBC W/Diff, Automatedon 11-04 Absolute Lymph 2.84 X10 3/uL Normal 0.83-4.51 [facility] Comment on above: Performed By: #### L 501.9520, L100.0100, L500.2500, L501.4021 #### [facility] Laboratory [address] [place], [address] Absolute Neut 3.9 X10 3/uL Normal 2.0-7.7 [facility] Comment on above: Performed By: #### L 501.9520, L100.0100, L500.2500, L501.4021 #### [facility] Laboratory [address] [place], [address] Basophils/100 WBC (Bld) 0.6 % Normal 0-1 [facility] Comment on above: Performed By: #### L 501.9520, L100.0100, L500.2500, L501.4021 #### [facility] Laboratory [address] [place], [address] Eosinophils/100 WBC (Bld) 5.6 % High 0-5 [facility] Comment on above: Performed By: #### L 501.9520, L100.0100, L500.2500, L501.4021 #### [facility] Laboratory [address] [place], [address] Erythrocyte distribution width (RBC) [Ratio] 12.3 % Normal 11.6-14.6 [facility] Comment on above: Performed By: #### L 501.9520, L100.0100, L500.2500, L501.4021 #### [facility] Laboratory [address] [place], [address] Hematocrit (Bld) [Volume fraction] 42.4 % Normal 37-47 [facility] Comment on above: Performed By: #### L 501.9520, L100.0100, L500.2500, L501.4021 #### [facility] Laboratory [address] [place], [address] Hemoglobin (Bld) [Mass/Vol] 14.9 g/dL Normal 12.0-15.0 [facility] Comment on above: Performed By: #### L 501.9520, L100.0100, L500.2500, L501.4021 #### [facility] Laboratory [address] [place], [address] IG% 0.400 Normal 0.0-0.9 [facility] Comment on above: Result Comment: IG% - Immature Granulocytes (promyelocytes, myelocytes and metamyelocytes) > 1% indicates that a LEFT SHIFT is Present. Performed By: #### L 501.9520, L100.0100, L500.2500, L501.4021 #### [facility] Laboratory [address] [place], [address] Lymphocytes/100 WBC (Bld) 35.9 % Normal 19-41 [facility] Comment on above: Performed By: #### L 501.9520, L100.0100, L500.2500, L501.4021 #### [facility] Laboratory [address] [place], [address] MCH (RBC) [Entitic mass] 30.8 pg Normal 27.0-32.0 [facility] Comment on above: Performed By: #### L 501.9520, L100.0100, L500.2500, L501.4021 #### [facility] Laboratory [address] [place], [address] MCHC (RBC) [Mass/Vol] 35.1 g/dL Normal 32-36 [facility] Comment on above: Performed By: #### L 501.9520, L100.0100, L500.2500, L501.4021 #### [facility] Laboratory [address] [place], [address] MCV (RBC) [Entitic vol] 87.6 fL Normal 81-99 [facility] Comment on above: Performed By: #### L 501.9520, L100.0100, L500.2500, L501.4021 #### [facility] Laboratory [address] [place], [address] Monocytes/100 WBC (Bld) 8.0 % Normal 0-10 [facility] Comment on above: Performed By: #### L 501.9520, L100.0100, L500.2500, L501.4021 #### [facility] Laboratory [address] [place], [address] Neutrophils/100 WBC (Bld) 49.5 % Normal 47-70 [facility] Comment on above: Performed By: #### L 501.9520, L100.0100, L500.2500, L501.4021 #### [facility] Laboratory [address] [place], [address] Nucleated RBC (Bld) [#/Vol] 0 10*3/uL Normal 0-5 [facility] Comment on above: Performed By: #### L 501.9520, L100.0100, L500.2500, L501.4021 #### [facility] Laboratory [address] [place], [address] Platelet mean volume (Bld) [Entitic vol] 10.4 fL Normal 6.2-12.0 [facility] Comment on above: Performed By: #### L 501.9520, L100.0100, L500.2500, L501.4021 #### [facility] Laboratory [address] [place], [address] Platelets (Bld) [#/Vol] 331 10*3/uL Normal 150-450 [facility] Comment on above: Performed By: #### L 501.9520, L100.0100, L500.2500, L501.4021 #### [facility] Laboratory [address] [place], [address] RBC (Bld) [#/Vol] 4.84 10*6/uL Normal 4.2-5.4 [facility] Comment on above: Performed By: #### L 501.9520, L100.0100, L500.2500, L501.4021 #### [facility] Laboratory [address] [place], [address] RDW SD 39.5 fl Normal 35.1-43.9 [facility] Comment on above: Performed By: #### L 501.9520, L100.0100, L500.2500, L501.4021 #### [facility] Laboratory [address] [place], [address] WBC (Bld) [#/Vol] 7.9 10*3/uL Normal 4.4-11.0 [facility] Comment on above: Performed By: #### L 501.9520, L100.0100, L500.2500, L501.4021 #### [facility] Laboratory [address] [place], [address] Carbon dioxide, total [Moles /volume] in Central venous bloodOrdered By: Ryan Pearson on 11-23-2024 CO2 [Moles/Vol] 19.7 mmol/L Low 21.0-32.0 [facility] Comment on above: Performed By: #### L 7000.1800, L7400.0280, M100.2000, M100.3200 #### [facility] Laboratory [address] [place], [address] Chest PA and Lateralon 11-23 Chest PA and Lateral [facility] Imaging Services [address] [place] [address] Chest PA and Lateral MR#: [id number] Acct: [id number] Name: QUE SANCHEZ Rep #: [id number] : 1990 F 34 From: Aby Reynolds nd, MD PCP: Dr. Davide Chao MD Status: REG ER Study: Chest PA and Lateral Date of Exam: 11/23/24 Exam# [id number] Ordering Dr: Ryan Pearson DO PROCEDURE: CHEST PA AND LATERAL 11/23/2024 REASON FOR EXAM: CHEST PAIN TECHNIQUE: CHEST PA AND LATERAL COMPARISON: Chest radiograph 05/08/2018. FINDINGS: Hardware: None. Heart: The heart size is normal. Mediastinum: The mediastinal contour is unremarkable. Lungs: No focal consolidation, pleural effusion or pneumothorax. Bones: The bones are unremarkable. RAD/Chest PA and Lateral IMPRESSION: NEGATIVE CHEST Reading Location: [id number] CC: Dr. Davide Chao MD; Dr. Ryan Pearson DO Service Secretary: Signed Normal [facility] Chloride assayOrdered By: Chris Pearson on 11-23-2024 Chloride [Moles/Vol] 103 mmol/L 98-[address] [facility] Comment on above: Performed By: #### L 7000.1800, L7400.0280, M100.2000, M100.3200 #### [facility] Laboratory [address] [facility] [place], [address] Emergency Department Summary on 11-23-2024 Emergency Department Summary [facility] Medical Records Department [address] [place] [address] Emergency Department Summary 11/23/24 MR#: [id number] Acct: [id number] Name: QUE SANCHEZ Rep #: [id number] : 1990 34 From: Ryan Miner PCP: Dr. Davide Chao MD Status:DEP ER Location: ED HPI History of Present Illness Chief Complaint: Chest Pain Informant: patient Narrative Narrative: Brought in for chest pain 7 PM sharp in nature reported nausea. She feels palpitations. History of A-fib with ablation in [address] [facility]. Currently does not follow with cardiology. Drinks [...] Hypertension, Diabetes, Hypercholesterolemia or Family History 1' [facility] Medical History Multiple personality disorder History of [...] chest movem (more content not included)... Normal [facility] Eosinophil percentageOrdered By: Ryan Pearson on 11-23-2024 Eosinophils/100 WBC (Bld) 5.6 % High 0-5 [facility] Erythrocyte distribution wid th ratioOrdered By: Ryan Pearson on 11-23-2024 Erythrocyte distribution width (RBC) [Ratio] 12.3 % 11.6-14.6 [facility] Erythrocyte distribution wid th standard deviationOrdered By: Ryan Pearson on 11-23-2024 Erythrocyte distribution width (RBC) [Ratio] 39.5 fl 35.1-43.9 [facility] Glomerular filtration rate ( GFR) estimation/1.73 sq m using serum, plasma, or whole bOrdered By: Ryan Pearson on 11-23-2024 GFR/1.73 sq M.predicted among non-blacks MDRD (S/P/Bld) [Vol rate/Area] 71 mL/min/{1.73_m2} >60 [facility] Comment on above: mL/min/1.73m2 CKD-EP I Creatinine Equation (2020) Result Comment: mL/m in/1.73m2 CKD-EPI Creatinine Equation (2020) Performed By: #### L 7000.1800, L7400.0280, M100.2000, M100.3200 #### [facility] Laboratory [address] [place], [address] Hematocrit Auto (Bld) [Volum e fraction]Ordered By: Ryan Pearson on 11-23-2024 Hematocrit (Bld) [Volume fraction] 42.4 % 37-47 [facility] Hemoglobin measurementOrdere d By: Ryan Pearson on 11-23-2024 Hemoglobin (Bld) [Mass/Vol] 14.9 g/dL 12.0-15.0 [facility] Immature granulocytes/100 WB C Auto (Bld)Ordered By: Ryan Pearson on 11-23-2024 Immature granulocytes/100 WBC (Bld) 0.400 % 0.0-0.9 [facility] Comment on above: IG% - Immature Granu locytes (promyelocytes, myelocytes and metamyelocytes) > 1% indicates that a LEFT SHIFT is Present. L499.0042on 11-23-2024 Trop T High Sen Normal <=14 [facility] Comment on above: Result Comment: Canc elled via OM: Order cancelled - Patient discharged Performed By: #### L 7000.1800, L7400.0280, M100.2000, M100.3200 #### [facility] Laboratory [address] [place], [address] L501.4021on 11-23-2024 Trop T High Sen < 6 Normal <=14 [facility] Comment on above: Performed By: #### L 7000.1800, L7400.0280, M100.1999, M100.3200 #### [facility] Laboratory [address] [place], [address] MCV (mean corpuscular volume ) determinationOrdered By: Ryan Pearson on 11-23-2024 MCV (RBC) [Entitic vol] 87.6 fL 81-99 [facility] Mean corpuscular hemoglobin (MCH) determinationOrdered By: Ryan Pearson on 11-23-2024 MCH (RBC) [Entitic mass] 30.8 pg 27.0-32.0 [facility] Mean corpuscular hemoglobin concentration (MCHC) determinationOrdered By: Ryan Le on 11-23-2024 MCHC (RBC) [Mass/Vol] 35.1 g/dL 32-36 [facility] Mean platelet volume determi nationOrdered By: Ryan Le on 11-23-2024 Platelet mean volume (Bld) [Entitic vol] 10.4 fL 6.2-12.0 [facility] Monocyte percentageOrdered B y: Ryan Pearson on 11-23-2024 Monocytes/100 WBC (Bld) 8.0 % 0-10 [facility] Neutrophil percentageOrdered By: Ryan Pearson on 11-23-2024 Neutrophils/100 WBC (Bld) 49.5 % 47-70 [facility] Nucleated red blood cell per centageOrdered By: Ryan Pearson on 11-23-2024 Nucleated RBC/100 WBC (Bld) [Ratio] 0 % 0-5 [facility] Platelet countOrdered By: Chris Pearson on 11-23-2024 Platelets (Bld) [#/Vol] 331 10*3/uL 150-450 [facility] Potassium measurement (mass/ volume)Ordered By: Ryan Pearson on 11-23-2024 Potassium (Unsp spec) [Mass/Vol] 3.7 mmol/L 3.3-5.1 [facility] RBC Auto (Bld) [#/Vol]Ordere d By: Ryan Pearson on 11-23-2024 RBC (Bld) [#/Vol] 4.84 10*6/uL 4.2-5.4 [facility] Serum creatinine measurement (mass/volume)Ordered By: Ryan Pearson on 11-23-2024 Creatinine [Mass/Vol] 1.06 mg/dL 0.70-1.20 [facility] Comment on above: Performed By: #### L 7000.1800, L7400.0280, M100.2000, M100.3200 #### [facility] [address] [place], [place], [address] Serum glucose measurement (m ass/volume)Ordered By: Ryan Pearson on 11-23-2024 Glucose [Mass/Vol] 89 mg/dL 70-99 [facility] Comment on above: Performed By: #### L 7000.1800, L7400.0280, , M100.3200 #### [facility] [address] [place], [address] Serum or plasma calcium edilia urement (mass/volume)Ordered By: Ryan Pearson on 11-23-2024 Calcium [Mass/Vol] 9.9 mg/dL 7.6-11.0 [facility] Comment on above: Performed By: #### L 0.1800, L7400.0280, , M1.3200 #### [facility] [address] [place], [address] Serum or plasma urea nitroge n measurement (mass/volume)Ordered By: Ryan Pearson on 11-23-2024 Urea nitrogen [Mass/Vol] 11 mg/dL 4-19 [facility] Comment on above: Performed By: #### L 0.1800, L7400.0280, , M1.3200 #### [facility] [address] [place], [address] Sodium levelOrdered By: Ryan Pearson on 11-23-2024 Sodium [Moles/Vol] 139 mmol/L 133-145 [facility] Comment on above: Performed By: #### L 0.1800, L7400.0280, , M1.3200 #### [facility] [address] [place], [address] TSH DL <= 0.005 mIU/L QnOrde red By: Ryan Pearson on 11-23-2024 TSH Qn 1.310 uIU/mL 0.300-4.200 [facility] Thyroid Stim Hormone (TSH)on 11-23-2024 TSH 1.310 uIU/mL Normal 0.300-4.200 [facility] Comment on above: Performed By: #### L 0.1800, L7400.0280, , .3200 #### [facility] [address] [place], [address] Troponin T.cardiac [Mass/vol ume] in Serum or Plasma by High sensitivity methodOrdered By: Ryan Pearson on 11-23-2024 Troponin T.cardiac High sensitivity method [Mass/Vol] < 6 ng/L <14 [facility] White blood cell (WBC) count Ordered By: Ryan Pearson on 11-23-2024 WBC (Bld) [#/Vol] 7.9 10*3/uL 4.4-11.0 [facility] Serum human chorionic gonado tropin detection for pregnancyOrdered By: Melissa Saxena on 11-15-2024 HCG ( test) Ql < 1 mIU/mL <9 [facility] Comment on above: Gestational Age0.2-1 Week: 5-50 mIU/mL1-2 Weeks: 50-500 mIU/mL2-3 Weeks: 100-5000 mIU/mL3-4 Weeks: 500-10,000 mIU/mL4-5 Weeks:1000-50,000 mIU/mL5-6 Weeks: 10,000-100,000 mIU/mL6-8 Weeks: 15,000-200,000 mIU/mL2-3 Months:10,000-100,000 mIU/mL hCG Titer Quant., Serumon HCG QUANT. < 1 Normal <9 non-preg [facility] Comment on above: Result Comment: Gest ational Age 0.2-1 Week: 5-50 mIU/mL 1-2 Weeks: 50-500 mIU/mL 2-3 Weeks: 100-5000 mIU/mL 3-4 Weeks: 500-10,000 mIU/mL 4-5 Weeks:1000-50,000 mIU/mL 5-6 Weeks: 10,000-100,000 mIU/mL 6-8 Weeks: 15,000-200,000 mIU/mL 2-3 Months:10,000-100,000 mIU/mL Performed By: #### L 7000.1800, L7400.0280, M100.2000, M100.3200 #### [facility] [address] [place], [place], [address] PROGESTERONE 4317on 11-14-19 25 PROGESTERONE 9.5 ng/mL Normal . [facility] Comment on above: Order Comment: N 21 day lab Result Comment: Foll icular phase 0.1 - 0.9 Luteal phase 1.8 - 23.9 Ovulation phase 0.1 - 12.0 First trimester 11.0 - 44.3 Second trimester 25.4 - 83.3 Third trimester 58.7 - 214.0 Postmenopausal 0.0 - 0.1 Performed at: [facility] [address] [id number] Retail Sales Vitamin Consultant: Maximilian Hunt PhD, Phone: [phone] Performed By: #### L 061.0226 #### [facility] [address] [place], [address] Serum human chorionic gonado tropin detection for pregnancyOrdered By: Melissa Saxena on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 Comment: Speci men Type: BLOOD SPECIMENOrdering Facility: [facility] Address: [address] [place] [address] Performed By: #### 5 7021-8 ####[facility] LABCLIA [id number] [place] [address] [place] Immature granulocytes/100 WBC (Bld) 0.3 % Normal [facility] Comment on above: Order Comment: Speci men Type: BLOOD SPECIMENOrdering Facility: [facility] Address: [address] [place] [address] Performed By: #### 5 7021-8 ####[facility] LABCLIA [id number] [place] [address] [place] Lymphocytes (Bld) [#/Vol] 2.29 10*3/uL Normal 1.00-4.00 [facility] Comment on above: Order Comment: Speci men Type: BLOOD SPECIMENOrdering Facility: [facility] Address: [address] [place] [address] Performed By: #### 5 7021-8 ####[facility] LABCLIA [id number] [place] [address] [place] Lymphocytes/100 WBC (Bld) 24.1 % Normal [facility] Comment on above: Order Comment: Speci men Type: BLOOD SPECIMENOrdering Facility: [facility] Address: [address] [place] [address] Performed By: #### 5 7021-8 ####[facility] LABCLIA [id number] [place] [address] [place] MCH (RBC) [Entitic mass] 27.8 pg Normal 26.0-34.0 [facility] Comment on above: Order Comment: Speci men Type: BLOOD SPECIMENOrdering Facility: [facility] Address: [address] [place] [address] Performed By: #### 5 7021-8 ####[facility] LABCLIA [id number] [place] [address] [place] MCHC (RBC) [Mass/Vol] 32.0 g/dL Normal 30.5-36.0 [facility] Comment on above: Order Comment: Speci men Type: BLOOD SPECIMENOrdering Facility: [facility] Address: [address] [place] [address] Performed By: #### 5 7021-8 ####[facility] LABCLIA [id number] [place] [address] [place] MCV (RBC) [Entitic vol] 86.9 fL Normal 80.0-100.0 [facility] Comment on above: Order Comment: Speci men Type: BLOOD SPECIMENOrdering Facility: [facility] Address: [address] [place] [address] Performed By: #### 5 7021-8 ####[facility] LABCLIA [id number] [place] [address] [place] Monocytes (Bld) [#/Vol] 0.62 10*3/uL Normal <0.87 [facility] Comment on above: Order Comment: Speci men Type: BLOOD SPECIMENOrdering Facility: [facility] Address: [address] [place] [address] Performed By: #### 5 7021-8 ####[facility] LABCLIA [id number] [place] [address] [place] Monocytes/100 WBC (Bld) 6.5 % Normal [facility] Comment on above: Order Comment: Speci men Type: BLOOD SPECIMENOrdering Facility: [facility] Address: [address] [place] [address] Performed By: #### 5 7021-8 ####[facility] LABCLIA [id number] [place] [address] [place] Neutrophils (Bld) [#/Vol] 6.26 10*3/uL Normal 1.45-7.50 [facility] Comment on above: Order Comment: Speci men Type: BLOOD SPECIMENOrdering Facility: [facility] Address: [address] [place] [address] Performed By: #### 5 7021-8 ####[facility] LABCLIA [id number] [place] [address] [place] Neutrophils/100 WBC (Bld) 65.8 % Normal [facility] Comment on above: Order Comment: Speci men Type: BLOOD SPECIMENOrdering Facility: [facility] Address: [address] [place] [address] Performed By: #### 5 7021-8 ####[facility] LABCLIA [id number] [place] [address] [place] Nucleated RBC (Bld) [#/Vol] 10*3/uL Normal <0.01 [facility] Comment on above: Order Comment: Speci men Type: BLOOD SPECIMENOrdering Facility: [facility] Address: [address] [place] [address] Performed By: #### 5 7021-8 ####[facility] LABCLIA [id number] [place] [address] [place] Nucleated RBC/100 WBC (Bld) [Ratio] 0.0 /100 WBC Normal [facility] Comment on above: Order Comment: Speci men Type: BLOOD SPECIMENOrdering Facility: [facility] Address: [address] [place] [address] Performed By: #### 5 7021-8 ####[facility] LABCLIA [id number] [place] [address] [place] Platelet mean volume (Bld) [Entitic vol] 10.2 fL Normal 9.0-12.7 [facility] Comment on above: Order Comment: Speci men Type: BLOOD SPECIMENOrdering Facility: [facility] Address: [address] [place] [address] Performed By: #### 5 7021-8 ####[facility] LABIA [id number] [place] [address] [place] Platelets (Bld) [#/Vol] 337 10*3/uL Normal 150-400 [facility] Comment on above: Order Comment: Speci men Type: BLOOD SPECIMENOrdering Facility: [facility] Address: [address] [place] [address] Performed By: #### 5 7021-8 ####[facility] [id number] [place] [address] [place] RBC (Bld) [#/Vol] 4.89 10*6/uL Normal 3.90-5.20 [facility] Comment on above: Order Comment: Speci men Type: BLOOD SPECIMENOrdering Facility: [facility] Address: [address] [place] [address] Performed By: #### 5 7021-8 ####[facility] [id number] [place] [address] [place] WBC (Bld) [#/Vol] 9.52 10*3/uL Normal 3.70-11.00 [facility] Comment on above: Order Comment: Speci men Type: BLOOD SPECIMENOrdering Facility: [facility] Address: [address] [place] [address] Performed By: #### 5 7021-8 ####[facility] [id number] [place] [address] [place] CNOVon 10-17-2023 CNOV Office Visit (FAMPWS ) QUE ESCOBAR ([id number]) 1990 F [place] Date Time Provider Department [...] pulses bilaterally. (more content not included)... Normal [facility] HbA1c (Bld)on 10-17-2023 Average glucose Estimated from glycated hemoglobin (Bld) [Mass/Vol] 105 mg/dL [facility] Comment on above: eAG: (Estimated aver age glucose) is a calculated value from HgbA1c and is advertising representative of the average blood glucose level in the last 2-3 month period. HbA1c (Bld) [Mass fraction] 5.3 % 4.3 - 5.6 % [facility] Comment on above: [place] Diabetes As sociation guidelines indicate that patients with HgbA1c in the range 5.7-6.4% are at increased risk for development of diabetes, and intervention by lifestyle modification may be beneficial. HgbA1c greater or equal to 6.5% is considered diagnostic of diabetes. [facility] Average glucose Estimated from glycated hemoglobin (Bld) [Mass/Vol] 105 mg/dL Normal [facility] Comment on above: Order Comment: Casandra moran Type: BLOOD SPECIMENOrdering Facility: [facility] Address: [address] [place] [address] Result Comment: eAG: (Estimated average glucose) is a calculated value from HgbA1c and is advertising representative of the average blood glucose level in the last 2-3 month period. Performed By: #### 5 5454-3 ####[facility] LABCLIA [id number] [facility] [id number] [place] [address] [place] HbA1c (Bld) [Mass fraction] 5.3 % Normal 4.3-5.6 [facility] Comment on above: Order Comment: Casandra moran Type: BLOOD SPECIMENOrdering Facility: [facility] Address: [address] [place] [address] Result Comment: [place] Diabetes Association guidelines indicate that patients with HgbA1c in the range 5.7-6.4% are at increased risk for development of diabetes, and intervention by lifestyle modification may be beneficial. HgbA1c greater or equal to 6.5% is considered diagnostic of diabetes. Performed By: #### 5 5454-3 ####[facility] LABCLIA [id number] [place] [address] [place] TSH SerPl-aCncon 10-17-2023 TSH Qn 0.885 m[IU]/L Normal 0.270-4.200 [facility] Comment on above: Order Comment: Speci men Type: BLOOD SPECIMENOrdering Facility: [facility] Address: [address] [place] [address] Result Comment: If t he patient is , TSH reference range varies by gestational period: First Trimester (weeks 9-12): 0.180-2.990 mIU/L Second Trimester: 0.110-3.980 mIU/L Third Trimester: 0.480-4.710 mIU/L Howard Jacobo et al. A Practical Approach for the Verifications and Determination of Site- and Trimester-Specific Reference Intervals for Thyroid Function tests in . Thyroid, 2019:29:3:412-420. John Siddiqi, et al. 2017 Guidelines of the [place] Thyroid Association for the Diagnosis and Management of Thyroid Disease during and the . Thyroid, 2017:27:3:315-389. Performed By: #### 2 4321-2, 3016-3 ####[facility] LABIA [id number] [place] [id number] [place] Basophil percentageOrdered B y: Melissa Saxena on 10-03-2023 Hemoglobin (Bld) [Mass/Vol] 11.9 g/dL 12.0-15.0 [facility] WBC (Bld) [#/Vol] 5.7 10*3/uL 4.4-11.0 [facility] Determination of erythrocyte mean corpuscular volume (MCV)Ordered By: Melissa Saxena on 10-03-2023 MCV (RBC) [Entitic vol] 85.5 fL 81-99 [facility] Erythrocyte distribution wid th ratioOrdered By: Melissa Saxena on 10-03-2023 Erythrocyte distribution width (RBC) [Ratio] 14.6 % 11.6-14.6 [facility] Erythrocyte distribution wid th standard deviationOrdered By: Melissa Saxena on 10-03-2023 Erythrocyte distribution width (RBC) [Entitic vol] 45.8 fL 35.1-43.9 [facility] Hematocrit Auto (Bld) [Volum e fraction]Ordered By: Melissa Saxena on 10-03-2023 Hematocrit (Bld) [Volume fraction] 36.6 % 37-47 [facility] Laboratory - Hematology and Cell countsOrdered By: Melissa Saxena on 10-03-2023 MCH (RBC) [Entitic mass] 27.8 pg 27.0-32.0 [facility] MCHC (RBC) [Mass/Vol] 32.5 g/dL 32-36 [facility] Platelet mean volume (Bld) [Entitic vol] 9.9 fL 6.2-12.0 [facility] Platelets (Bld) [#/Vol] 282 10*3/uL 150-450 [facility] RBC Auto (Bld) [#/Vol]Ordere d By: Melissa Saxena on 10-03-2023 RBC (Bld) [#/Vol] 4.28 10*6/uL 4.2-5.4 [facility] INFLUENZA A&B MOLECULAR (POC )on 08-10-2023 Flu A (POCT) Negative Negative [facility] Flu B (POCT) Negative Negative [facility] Procedural Control Valid [facility] UA DIP, URINE (POC)on 2023 BILIRUBIN UA (POCT) Negative Negative [facility] CLARITY UA (POCT) Clear [facility] COLOR UA (POCT) Yellow [facility] GLUCOSE UA (POCT) Negative Negative mg[facility] Hem[facility] Ql (U) Small Abnormal Negative [facility] KETONE UA (POCT) Negative Negative mg/dL [facility] LEUKOCYTES UA (POCT) Negative Negative [facility] NITRITE UA (POCT) Negative Negative [facility] PH UA (POCT) 6.0 4.5 - 8.0 [facility] Protein Ql (U) Negative Negative mg/dL [facility] SPECIFIC GRAVITY UA (POCT) 1.015 1.005 - 1.030 [facility] UROBILINOGEN UA (POCT) 0.2 E.U./dL Kelly l E.U./dL [facility] Serum or plasma choriogonado tropin detectionOrdered By: Love Castillo on 07-13-2023 HCG ( test) Ql < 1 mIU/mL <4 [facility] Comment on above: hCG levels with Gest ational AgeGestational Age hCG mIU/mL (IU/L)0.2 - 1 week 5 - 501-2 weeks 50 - 5002-3 weeks 100 - 96541-6 weeks 500 - 918597-1 weeks 1000 - 598130-9 weeks 15412 - 100,0006-8 weeks 17008 - 200,0002-3 months 30989 - 100,000 Absolute lymphocyte countOrd ered By: Melissa Saxena on 06-28-2023 Lymphocytes Auto (Unsp spec) [#/Vol] 1.74 10*3/uL 0.83-4.51 [facility] Automated lymphocyte count a s percentage of total leukocytesOrdered By: Melissa Saxena on 06-28-2023 Lymphocytes/100 WBC Auto (Unsp spec) 29.0 % 19-41 [facility] Basophil percentageOrdered B y: Melissa Saxena on 06-28-2023 Basophils/100 WBC (Bld) 0.8 % 0-1 [facility] Eosinophils/100 WBC (Bld) 5.7 % 0-5 [facility] Hemoglobin (Bld) [Mass/Vol] 11.9 g/dL 12.0-15.0 [facility] Monocytes/100 WBC (Bld) 6.7 % 0-10 [facility] Neutrophils (Bld) [#/Vol] 3.5 10*3/uL 2.0-7.7 [facility] Neutrophils/100 WBC (Bld) 57.5 % 47-70 [facility] WBC (Bld) [#/Vol] 6.0 10*3/uL 4.4-11.0 [facility] Chlamydia trachomatis rRNA d etection by probe and target amplification methodOrdered By: Love Castillo on 06-28-2023 C. trachomatis rRNA MAYTE+probe Ql (Unsp spec) Negative Negative [facility] Determination of erythrocyte mean corpuscular volume (MCV)Ordered By: Melissa Saxena on 06-28-2023 MCV (RBC) [Entitic vol] 88.7 fL 81-99 [facility] Erythrocyte distribution wid th ratioOrdered By: Melissa Saxena on 06-28-2023 Erythrocyte distribution width (RBC) [Ratio] 13.7 % 11.6-14.6 [facility] Erythrocyte distribution wid th standard deviationOrdered By: Melissa Saxena on 06-28-2023 Erythrocyte distribution width (RBC) [Entitic vol] 44.3 fL 35.1-43.9 [facility] Gram stain for investigation of transfusion reactionOrdered By: Love Castillo on 06-28-2023 Microscopic observation Gram stain Nom (Unsp spec) [facility] Microscopic observation Gram stain Nom (Unsp spec) [facility] Hematocrit Auto (Bld) [Volum e fraction]Ordered By: Melissa Saxena on 06-28-2023 Hematocrit (Bld) [Volume fraction] 37.6 % 37-47 [facility] Immature granulocytes/100 WB C Auto (Bld)Ordered By: Melissa Saxena on 06-28-2023 Immature granulocytes/100 WBC (Bld) 0.300 % 0.0-0.9 [facility] Comment on above: IG% - Immature Granu locytes (promyelocytes, myelocytes and metamyelocytes) > 1% indicates that a LEFT SHIFT is Present. Laboratory - Hematology and Cell countsOrdered By: Melissa Saxena on 06-28-2023 MCH (RBC) [Entitic mass] 28.1 pg 27.0-32.0 [facility] MCHC (RBC) [Mass/Vol] 31.6 g/dL 32-36 [facility] Nucleated RBC/100 WBC (Bld) [Ratio] 0 % 0-5 [facility] Platelets (Bld) [#/Vol] 388 10*3/uL 150-450 [facility] Laboratory - Microbiology an d Antimicrobial susceptibilityOrdered By: Love Castillo on 06-28-2023 N. gonorrhoeae DNA MAYTE+probe Ql (Unsp spec) Negative Negative [facility] Comment on above: Performed at: =G - L [address] [place], [place] [id number] Director: Rita Vallecillo MD, Phone: [phone] No Panel InformationOrdered By: Love Castillo on 06-28-2023 Genital Culture Neisseria or beta-hemolytic Streptococcus isolated. [facility] Genital Culture Neisseria or beta-hemolytic Streptococcus isolated. [facility] No Panel Informationon 06-28 POC Bacterial Vaginitis (Rapid) Negative [facility] POC Trichomonas (Rapid) Negative [facility] Platelet mean volume Bulmaro-Ec ker (Bld) [Entitic vol]Ordered By: Melissa Saxena on 06-28-2023 Platelet mean volume (Bld) [Entitic vol] 9.7 fL 6.2-12.0 [facility] RBC Auto (Bld) [#/Vol]Ordere d By: Melissa Saxena on 06-28-2023 RBC (Bld) [#/Vol] 4.24 10*6/uL 4.2-5.4 [facility] Serum or plasma thyroid stim ulating hormone (TSH) measurement (units/volume)Ordered By: Melissa Saxena on 06-28-2023 TSH Qn 1.21 uIU/mL 0.358-3.74 [facility] Urinalysis complete W Reflex Culture panel (U)on 06-07-2023 Appearance (U) Hazy Abnormal Clear [facility] Bilirubin (U) [Mass/Vol] Negative NEGATIVE [facility] Color (U) Yellow Straw, Yellow [facility] Crystals.amorphous Computer assisted (U) [#/Area] 1+ NONE, 1+, 2+ /HPF [facility] Glucose Auto test strip (U) [Mass/Vol] Negative NEGATIVE mg/dL [facility] Interpretation and review of laboratory results Abnormal [facility] Ketones (U) [Mass/Vol] Negative NEGAT JESUS mg/dL [facility] Leukocyte clumps Auto (Urine sed) [#/Area] FEW Reference range not established. /HPF [facility] Leukocyte esterase Auto test strip Ql (U) Negative NEGATIVE [facility] Mucus Auto (Urine sed) [#/Area] 1+ Reference range not established. /LPF [facility] Nitrite Auto test strip Ql (U) Negative NEGATIVE [facility] pH (U) 7.0 [pH] 5.0, 5.5, 6.0, 6.5, 7.0, 7.5, 8.0 [facility] Protein (U) [Mass/Vol] 100 (2+) Abnormal NEGAT JESUS mg/dL [facility] RBC (U) [#/Vol] LARGE (3+) Abnormal NEGATIVE [facility] RBC Auto (Urine sed) [#/Area] >20 Abnormal NONE, 1-2, 3-5 /HPF [facility] Specific gravity (U) [Rel density] 1.020 1.005 - 1.035 [facility] Urobilinogen (U) [Mass/Vol] mg/dL NINF - 2.0 mg/dL [facility] WBC Auto (Urine sed) [#/Area] 21-50 Abnormal 1-5, NONE /HPF [facility] ANTIBODY IDENTIFICATIONon Blood group antibody investigation (P/RBC) [Interp] Inconclusive [facility] Comment on above: Performed By: #### 5 902-2 #### RAUDEL MENJIVAR ([id number]) [facility] ([facility]) [address] [place] [address] CASE # [facility] Comment on above: Performed By: #### 5 902-2 #### RAUDEL MENJIVAR ([id number]) [facility] ([facility]) [address] [place] [address] Bacteria identifiedon 2023 Bacteria identified Cx Nom (U) Test: Urine Culture Specimen Source: Clean Catch/Voided Specimen Type: Urine Specimen Date: 06/06/2023 11:41 PM Result Date: 06/08/2023 8:53 AM Result Status: Final result Abnormal: No Resulting Lab: [facility] [address] [facility] [address] [place] [address] CULTURE No growth [facility] Comment on above: Performed By: #### 5 902-2 #### RAUDEL MENJIVAR ([id number]) [facility] ([facility]) [address] [place] [address] Basic metabolic 2000 panelon 06-06-2023 Anion gap [Moles/Vol] 11 mmol/L 10 - 2 0 mmol/L [facility] Calcium [Mass/Vol] 9.0 mg/dL 8.6 - 10. 3 mg/dL [facility] Chloride [Moles/Vol] 107 mmol/L 98 - 10 7 mmol/L [facility] CO2 [Moles/Vol] 25 mmol/L 21 - 32 mmol/L [facility] Creatinine [Mass/Vol] 0.79 mg/dL 0.50 - 1.05 mg/dL [facility] GFR/1.73 sq M.predicted MDRD (S/P/Bld) [Vol rate/Area] - PINF [facility] Comment on above: Calculations of yolanda mated GFR are performed using the 2020 CKD-EPI Study Refit equation without the race variable for the IDMS-Traceable creatinine methods. https://jasn.asnjournals.org/content//ASN.35166 42527 Glucose [Mass/Vol] 96 mg/dL 74 - 99 mg/dL [facility] Interpretation and review of laboratory results Normal [facility] Potassium [Moles/Vol] 3.9 mmol/L 3.5 - 5.3 mmol/L [facility] Sodium [Moles/Vol] 139 mmol/L 136 - 145 mmol/L [facility] Urea nitrogen [Mass/Vol] 12 mg/dL 6 - 23 mg/dL [facility] Anion gap [Moles/Vol] 11 mmol/L Normal 10-20 [facility] Comment on above: Performed By: #### 2 4321-2 ####RAUDEL MENJIVAR ([id number])[facility] ([facility])[address] [place] [address] Calcium [Mass/Vol] 9.0 mg/dL Normal 8.6-10.3 [facility] Comment on above: Performed By: #### 2 4321-2 ####RAUDEL MENJIVAR ([id number])[facility] ([facility] [place] [address] Chloride [Moles/Vol] 107 mmol/L Normal 98-107 [facility] Comment on above: Performed By: #### 2 4321-2 ####RAUDEL MENJIVAR ([id number])[facility] ([facility])[address] [place] [address] CO2 [Moles/Vol] 25 mmol/L Normal 21-32 [facility] Comment on above: Performed By: #### 2 4321-2 ####RAUDEL MENJIVAR ([id number])[facility] ([facility])[address] [place] [address] Creatinine [Mass/Vol] 0.79 mg/dL Normal 0.50-1.05 [facility] Comment on above: Performed By: #### 2 4321-2 ####RAUDEL MENJIVAR ([id number])[facility] ([facility])[address] [place] [address] GFR/1.73 sq M.predicted MDRD (S/P/Bld) [Vol rate/Area] mL/min/{1.73_m2} Normal >60 [facility] Comment on above: Result Comment: Calc ulations of estimated GFR are performed using the 2020 CKD-EPI Study Refit equation without the race variable for the IDMS-Traceable creatinine methods. https://jasn.asnjournals.org/content/early//ASN.00956 20764 Performed By: #### 2 4321-2 ####RAUDEL MENJIVAR ([id number])[facility] ([facility])[address] [place] [address] Glucose [Mass/Vol] 96 mg/dL Normal 74-99 [facility] Comment on above: Performed By: #### 2 4321-2 ####RAUDEL MENJIVAR ([id number])[facility] ([facility])[address] [place] [address] Potassium [Moles/Vol] 3.9 mmol/L Normal 3.5-5.3 [facility] Comment on above: Performed By: #### 2 4321-2 ####RAUDEL MENJIVAR ([id number])[facility] ([facility])[address] [place] [address] Sodium [Moles/Vol] 139 mmol/L Normal 136-145 [facility] Comment on above: Performed By: #### 2 4321-2 ####RAUDEL MENJIVAR ([id number])[facility] ([facility])[address] [place], [place] [address] Urea nitrogen [Mass/Vol] 12 mg/dL Normal 6-23 [facility] Comment on above: Performed By: #### 2 4321-2 ####RAUDEL MENJIVAR ([id number])[facility] ([facility])[address] [place] [address] Blood type and Indirect anti body screen panel (Bld)on 06-06-2023 ABO group Nom (Bld) A Normal [facility] Comment on above: Order Comment: Revie w your Rh Negative female patient's potential need for Rh Immune Globulin (RhIg)administration. Performed By: #### 3 453-2 ####RAUDEL MENJIVAR ([id number])[facility] ([facility])[address] [place] [address] [place] Blood group antibody screen Ql Positive [facility] Comment on above: Order Comment: Revie w your Rh Negative female patient's potential need for Rh Immune Globulin (RhIg)administration. Performed By: #### 3 4532-2 ####RAUDEL MENJIVAR ([id number])[facility] ([facility])[address] [place] [address] [place] D Ag Ql (Bld) Negative [facility] Comment on above: Order Comment: Revie w your Rh Negative female patient's potential need for Rh Immune Globulin (RhIg)administration. Performed By: #### 3 4532-2 ####RAUDEL MENJIVAR ([id number] ([facility])[address] [place] [address] CBC W Auto Differential pane l (Bld)on 06-06-2023 Basophils (Bld) [#/Vol] 0.03 10*3/uL [facility] Basophils/100 WBC (Bld) 0.4 % 0.0 - 2.0 % [facility] Eosinophils (Bld) [#/Vol] 0.39 10*3/uL [facility] Eosinophils/100 WBC (Bld) 4.8 % 0.0 - 6.0 % [facility] Erythrocyte distribution width (RBC) [Ratio] 14.9 % High 11.5 - 14.5 % [facility] Hematocrit (Bld) [Volume fraction] 37.0 % 36.0 - 46.0 % [facility] Hemoglobin (Bld) [Mass/Vol] 11.8 g/dL Low 12.0 - 16.0 g/dL [facility] Immature granulocytes (Bld) [#/Vol] 0.02 10*3/uL [facility] Immature granulocytes/100 WBC (Bld) 0.2 % 0.0 - 0.9 % [facility] Comment on above: Immature Granulocyte Count (IG) includes promyelocytes, myelocytes and metamyelocytes but does not include bands. Percent differential counts (%) should be interpreted in the context of the absolute cell counts (cells/UL). Interpretation and review of laboratory results Abnormal [facility] Lymphocytes (Bld) [#/Vol] 2.86 10*3/uL [facility] Lymphocytes/100 WBC (Bld) 35.0 % 13.0 - 44.0 % [facility] MCH (RBC) [Entitic mass] 28.6 pg 26.0 - 34.0 pg [facility] MCHC (RBC) [Mass/Vol] 31.9 g/dL Low 32.0 - 36.0 g/dL [facility] MCV (RBC) [Entitic vol] 90 fL 80 - 100 fL [facility] Monocytes (Bld) [#/Vol] 0.61 10*3/uL [facility] Monocytes/100 WBC (Bld) 7.5 % 2.0 - 10.0 % [facility] Neutrophils (Bld) [#/Vol] 4.26 10*3/uL [facility] Comment on above: Percent differential counts (%) should be interpreted in the context of the absolute cell counts (cells/uL). Neutrophils/100 WBC (Bld) 52.1 % 40.0 - 80.0 % [facility] Nucleated RBC/100 WBC (Bld) [Ratio] 0.0 % [facility] Platelets (Bld) [#/Vol] 363 10*3/uL [facility] RBC (Bld) [#/Vol] 4.12 10*6/uL [facility] WBC (Bld) [#/Vol] 8.2 10*3/uL [facility] Basophils (Bld) [#/Vol] 0.03 x10*3/uL Normal 0.00-0.10 [facility] Comment on above: Performed By: #### 5 7021-8 ####RAUDEL MENJIVAR ([id number])[facility] ([facility])[address] [place] [address] 65498 Basophils/100 WBC (Bld) 0.4 % Normal 0.0-2.0 [facility] Comment on above: Performed By: #### 5 7021-8 ####RAUDEL MENJIVAR ([id number])[facility] ([facility])[address] [place] [address] 97329 Eosinophils (Bld) [#/Vol] 0.39 x10*3/uL Normal 0.00-0.70 [facility] Comment on above: Performed By: #### 5 7021-8 ####RAUDEL MENJIVAR ([id number])[facility] ([facility])[address] [place] [address] 86951 Eosinophils/100 WBC (Bld) 4.8 % Normal 0.0-6.0 [facility] Comment on above: Performed By: #### 5 7021-8 ####RAUDEL MENJIVAR ([id number])[facility] ([facility])[address] [place] [address] 00229 Erythrocyte distribution width (RBC) [Ratio] 14.9 % High 11.5-14.5 [facility] Comment on above: Performed By: #### 5 7021-8 ####RAUDEL MENJIVAR ([id number])[facility] ([facility])[address] [place] [address] 32353 Hematocrit (Bld) [Volume fraction] 37.0 % Normal 36.0-46.0 [facility] Comment on above: Performed By: #### 5 7021-8 ####RAUDEL MENJIVAR ([id number])[facility] ([facility])[address] [place] [address] 83540 Hemoglobin (Bld) [Mass/Vol] 11.8 g/dL Low 12.0-16.0 [facility] Comment on above: Performed By: #### 5 7021-8 ####RAUDEL MENJIVAR ([id number])[facility] ([facility])[address] [place] [address] 68714 Immature granulocytes (Bld) [#/Vol] 0.02 x10*3/uL Normal 0.00-0.70 [facility] Comment on above: Performed By: #### 5 7021-8 ####RAUDEL MENJIVAR ([id number])[facility] ([facility])[address] [place] [address] 09724 Immature granulocytes/100 WBC (Bld) 0.2 % Normal 0.0-0.9 [facility] Comment on above: Result Comment: Yuliya ture Granulocyte Count (IG) includes promyelocytes, myelocytes and metamyelocytes but does not include bands. Percent differential counts (%) should be interpreted in the context of the absolute cell counts (cells/UL). Performed By: #### 5 7021-8 ####RAUDEL MENJIVAR ([id number])[facility] ([facility])[address] [place] [address] 19824 Lymphocytes (Bld) [#/Vol] 2.86 x10*3/uL Normal 1.20-4.80 [facility] Comment on above: Performed By: #### 5 7021-8 ####RAUDEL MENJIVAR ([id number])[facility] ([facility])[address] [place] [address] 86418 Lymphocytes/100 WBC (Bld) 35.0 % Normal 13.0-44.0 [facility] Comment on above: Performed By: #### 5 7021-8 ####RAUDEL MENJIVAR ([id number])[facility] ([facility])[address] [place] [address] 06547 MCH (RBC) [Entitic mass] 28.6 pg Normal 26.0-34.0 [facility] Comment on above: Performed By: #### 5 7021-8 ####RAUDEL MENJIVAR ([id number])[facility] ([facility])[address] [place] [address] 97105 MCHC (RBC) [Mass/Vol] 31.9 g/dL Low 32.0-36.0 [facility] Comment on above: Performed By: #### 5 7021-8 ####RAUDEL MENJIVAR ([id number])[facility] ([facility])[address] [place] [address] 55327 MCV (RBC) [Entitic vol] 90 fL Normal 80-100 [facility] Comment on above: Performed By: #### 5 7021-8 ####RAUDEL MENJIVAR ([id number])[facility] ([facility])[address] [place] [address] 21311 Monocytes (Bld) [#/Vol] 0.61 x10*3/uL Normal 0.10-1.00 [facility] Comment on above: Performed By: #### 5 7021-8 ####RAUDEL MENJIVAR ([id number])[facility] ([facility])[address] [place] [address] 65357 Monocytes/100 WBC (Bld) 7.5 % Normal 2.0-10.0 [facility] Comment on above: Performed By: #### 5 7021-8 ####RAUDEL MENJIVAR ([id number])[facility] ([facility])[address] [place] [address] 03549 Neutrophils (Bld) [#/Vol] 4.26 x10*3/uL Normal 1.20-7.70 [facility] Comment on above: Result Comment: Perc ent differential counts (%) should be interpreted in the context of the absolute cell counts (cells/uL). Performed By: #### 5 7021-8 ####RAUDEL MENJIVAR ([id number])[facility] ([facility])[address] [place] [address] 88048 Neutrophils/100 WBC (Bld) 52.1 % Normal 40.0-80.0 [facility] Comment on above: Performed By: #### 5 7021-8 ####RAUDEL MENJIVAR ([id number])[facility] ([facility])[address] [place] [address] 26867 Nucleated RBC/100 WBC (Bld) [Ratio] 0.0 /100 WBCs Normal 0.0-0.0 [facility] Comment on above: Performed By: #### 5 7021-8 ####RAUDEL MENJIVAR ([id number])[facility] ([facility])[address] [place] [address] 36233 Platelets (Bld) [#/Vol] 363 x10*3/uL Normal 150-450 [facility] Comment on above: Performed By: #### 5 7021-8 ####RAUDEL MENJIVAR ([id number])[facility] ([facility])[address] [place] [address] 28239 RBC (Bld) [#/Vol] 4.12 x10*6/uL Normal 4.00-5.20 [facility] Comment on above: Performed By: #### 5 7021-8 ####RAUDEL MENJIVAR ([id number])[facility] ([facility])[address] [place] [address] 18634 WBC (Bld) [#/Vol] 8.2 x10*3/uL Normal 4.4-11.3 [facility] Comment on above: Performed By: #### 5 7021-8 ####RAUDEL MENJIVAR ([id number])[facility] ([facility])[address] [place] [address] 88485 Urinalysis complete W Reflex Culture panel (U)on 06-06-2023 Appearance (U) Hazy Normal Clear [facility] Comment on above: Performed By: #### 5 8077-9 ####RAUDEL MENJIVAR ([id number])[facility] ([facility])[address] [place], [place] [address] Bilirubin (U) [Mass/Vol] Negative Normal NEGATIVE [facility] Comment on above: Performed By: #### 5 8077-9 ####RAUDEL MENJIVAR ([id number])[facility] ([facility])[address] [place], [place] [address] Color (U) Yellow Normal Straw, Yellow [facility] Comment on above: Performed By: #### 5 8077-9 ####RAUDEL MENJIVAR ([id number])[facility] ([facility])[address] [place] [address] Crystals.amorphous Computer assisted (U) [#/Area] 1+ /HPF Normal NONE, 1+, 2+ [facility] Comment on above: Performed By: #### 5 8077-9 ####RAUDEL MENJIVAR ([id number])[facility] ([facility])[address] [place] [address] 52745 Glucose Auto test strip (U) [Mass/Vol] Negative Normal NEGATIVE [facility] Comment on above: Performed By: #### 5 8077-9 ####RAUDEL MENJIVAR ([id number])[facility] ([facility])[address] [place] [address] 05941 Ketones (U) [Mass/Vol] Negative Normal NEGATIVE [facility] on above: Performed By: #### 5 8077-9 ####RAUDEL MENJIVAR ([id number])[facility] ([facility])[address] [place] [address] 99872 Leukocyte clumps Auto (Urine sed) [#/Area] FEW Normal Reference range not established. [facility] Comment on above: Performed By: #### 5 8077-9 ####RAUDEL MENJIVAR ([id number])[facility] ([facility])[address] [place] [address] 57928 Leukocyte esterase Auto test strip Ql (U) Negative Normal NEGATIVE [facility] Comment on above: Performed By: #### 5 8077-9 ####RAUDEL MENJIVAR ([id number])[facility] ([facility])[address] [place] [address] Mucus Auto (Urine sed) [#/Area] 1+ /LPF Normal Reference range not established. [facility] Comment on above: Performed By: #### 5 8077-9 ####RAUDEL MENJIVAR ([id number])[facility] ([facility])[address] [place] [address] Nitrite Auto test strip Ql (U) Negative Normal NEGATIVE [facility] Comment on above: Performed By: #### 5 8077-9 ####RAUDEL MENJIVAR ([id number])[facility] ([facility])[address] [place] [address] pH (U) 7.0 [pH] Normal 5.0, 5.5, 6.0, 6.5, 7.0, 7.5, 8.0 [facility] Comment on above: Performed By: #### 5 8077-9 ####RAUDEL MENJIVAR ([id number])[facility] ([facility])[address] [place] [address] Protein (U) [Mass/Vol] 100 (2+) Normal NEGATIVE [facility] Comment on above: Performed By: #### 5 8077-9 ####RAUDEL MENJIVAR ([id number])[facility] ([facility])[address] [place] [address] RBC (U) [#/Vol] LARGE (3+) Abnormal NEGATIVE [facility] Comment on above: Performed By: #### 5 8077-9 ####RAUDEL MENJIVAR ([id number])[facility] ([facility])[address] [place] [address] RBC Auto (Urine sed) [#/Area] >20 Abnormal NONE, 1-2, 3-5 [facility] Comment on above: Performed By: #### 5 8077-9 ####RAUDEL MENJIVAR ([id number])[facility] ([facility])[address] [place] [address] Specific gravity (U) [Rel density] 1.020 Normal 1.005-1.035 [facility] Comment on above: Performed By: #### 5 8077-9 ####RAUDEL MENJIVAR ([id number])[facility] ([facility])[address] [place] [address] Urobilinogen (U) [Mass/Vol] mg/dL Normal <2.0 [facility] Comment on above: Performed By: #### 5 8077-9 ####RAUDEL MENJIVAR ([id number])[facility] ([facility])[address] [place] [address] WBC Auto (Urine sed) [#/Area] 21-50 Abnormal 1-5, NONE [facility] Comment on above: Performed By: #### 5 8077-9 ####RAUDEL MENJIVAR ([id number])[facility] ([facility])[address] [place] [address] Basophil percentageOrdered B y: Jeanette Roach on 03-18-2023 WBC (Bld) [#/Vol] 9.4 10*3/uL 4.4-11.0 [facility] Blood erythrocytes count (nu mber/volume)Ordered By: Jeanette Roach on 03-18-2023 RBC (Bld) [#/Vol] 3.98 10*6/uL 4.2-5.4 [facility] Blood hemoglobin measurement (mass/volume)Ordered By: Jeanette Roach on 03-18-2023 Hemoglobin (Bld) [Mass/Vol] 10.4 g/dL 12.0-15.0 [facility] Blood platelet mean volumeOr dered By: Jeanette Roach on 03-18-2023 Platelet mean volume (Bld) [Entitic vol] 9.1 fL 6.2-12.0 [facility] Determination of erythrocyte mean corpuscular volume (MCV)Ordered By: Jeanette Roach on 03-18-2023 MCV (RBC) [Entitic vol] 87.7 fL 81-99 [facility] Hematocrit Auto (Bld) [Volum e fraction]Ordered By: Jeanette Roach on 03-18-2023 Hematocrit (Bld) [Volume fraction] 34.9 % 37-47 [facility] Laboratory - Chemistry and C hemistry - challengeOrdered By: Jeanette Roach on 03-18-2023 ALT [Catalytic activity/Vol] 17 U/L 13-56 [facility] - Hematology and Cell countsOrdered By: Jeanette Roach on 03-18-2023 Erythrocyte distribution width (RBC) [Entitic vol] 49.8 fL 35.1-43.9 [facility] Erythrocyte distribution width (RBC) [Ratio] 15.8 % 11.6-14.6 [facility] MCH (RBC) [Entitic mass] 26.1 pg 27.0-32.0 [facility] MCHC Auto (RBC) [Mass/Vol]Or dered By: Jeanette Roach on 03-18-2023 MCHC (RBC) [Mass/Vol] 29.8 g/dL 32-36 [facility] No Panel InformationOrdered By: Jeanette Roach on 03-18-2023 Estimated Creatinine Clearance Calc 116.32 ml/min [facility] Estimated GFR (MDRD) Amer 136 mL/min >60 [facility] Comment on above: GFR Calc Estimated GFR (MDRD) Non-Af Amer 112 mL/min >60 [facility] Comment on above: Non- GFR Calc Platelets bldOrdered By: Marc Roach on 03-18-2023 Platelets (Bld) [#/Vol] 400 10*3/uL 150-450 [facility] Serum or plasma creatinine m easurement (mass/volume)Ordered By: Jeanette Roach on 03-18-2023 Creatinine [Mass/Vol] 0.65 mg/dL 0.55-1.02 [facility] Comment on above: The validity of the calculated GFR & GFRAA in patients over 70 years has not been determined. Clinical correlation is essential. Serum or plasma uric acid me asurement (mass/volume)Ordered By: Jeanette Roach on 03-18-2023 Urate [Mass/Vol] 5.1 mg/dL 2.6-6.0 [facility] Comment on above: The drugs N-Acetylcy steine and Metamizole may falsely depress this assay. Thin prep Papanicolaou smear with manual screeningOrdered By: Jeanette Roach on 03-18-2023 Thin prep Papanicolaou smear with manual screening 12 U/L 15-37 [facility] APTTon 03-13-2023 aPTT Coag (PPP) [Time] 27 s Un [facility] Work Phone: Bacteria identifiedon 2022 Bacteria identified Cx Nom (U) Test: Urine Culture Specimen Source: Clean Catch/Voided Specimen Type: Urine Specimen Date: 03/13/2023 6:19 PM Result Date: 03/14/2023 7:22 PM Result Status: Final result Abnormal: No Resulting Lab: [facility] [address] [place] [address] CULTURE No significant growth Normal [facility] Comment on above: Performed By: #### 6 30-4 ####LEA Jacobo ([id number])[facility] ([facility])[address] [place], [place] [id number] Basic metabolic 2000 panelon 03-13-2023 Anion gap [Moles/Vol] 15 mmol/L 10 - 2 0 mmol/L [facility] Calcium [Mass/Vol] 8.8 mg/dL 8.6 - 10. 3 mg/dL [facility] Chloride [Moles/Vol] 103 mmol/L 98 - 10 7 mmol/L [facility] CO2 [Moles/Vol] 25 mmol/L 21 - 32 mmol/L [facility] Creatinine [Mass/Vol] 0.51 mg/dL 0.50 - 1.05 mg/dL [facility] GFR/1.73 sq M.predicted MDRD (S/P/Bld) [Vol rate/Area] - PINF [facility] Comment on above: Calculations of yolanda mated GFR are performed using the 2020 CKD-EPI Study Refit equation without the race variable for the IDMS-Traceable creatinine methods. https://jasn.asnjournals.org/content/early/ASN.11094 10281 Glucose [Mass/Vol] 89 mg/dL 74 - 99 mg/dL [facility] Potassium [Moles/Vol] 3.8 mmol/L 3.5 - 5.3 mmol/L [facility] Sodium [Moles/Vol] 139 mmol/L 136 - 145 mmol/L [facility] Urea nitrogen [Mass/Vol] 10 mg/dL 6 - 23 mg/dL [facility] Anion gap [Moles/Vol] 15 mmol/L Normal 10-20 [facility] Comment on above: Performed By: #### 2 4321-2 ####RAUDEL MENJIVAR ([id number])[facility] ([facility])[address] [place] [address] 82367 Calcium [Mass/Vol] 8.8 mg/dL Normal 8.6-10.3 [facility] Comment on above: Performed By: #### 2 4321-2 ####RAUDEL MENJIVAR ([id number])[facility] ([facility])[address] [place] [address] 39803 Chloride [Moles/Vol] 103 mmol/L Normal 98-107 [facility] Comment on above: Performed By: #### 2 4321-2 ####RAUDEL MENJIVAR ([id number])[facility] ([facility])[address] [place] [address] 49348 CO2 [Moles/Vol] 25 mmol/L Normal 21-32 [facility] Comment on above: Performed By: #### 2 4321-2 ####RAUDEL MENJIVAR ([id number])[facility] ([facility])[address] [place] [address] 34401 Creatinine [Mass/Vol] 0.51 mg/dL Normal 0.50-1.05 [facility] Comment on above: Performed By: #### 2 4321-2 ####RAUDEL MENJIVAR ([id number])[facility] ([facility])[address] [place] [address] 79891 GFR/1.73 sq M.predicted MDRD (S/P/Bld) [Vol rate/Area] mL/min/{1.73_m2} Normal >60 [facility] Comment on above: Result Comment: Calc ulations of estimated GFR are performed using the 2021 CKD-EPI Study Refit equation without the race variable for the IDMS-Traceable creatinine methods. https://jasn.asnjournals.org/content//ASN.07067 28925 Performed By: #### 2 4321-2 ####RAUDEL MENJIVAR ([id number])[facility] ([facility])[address] [place] [address] 20355 Glucose [Mass/Vol] 89 mg/dL Normal 74-99 [facility] Comment on above: Performed By: #### 2 4321-2 ####RAUDEL MENJIVAR ([id number])[facility] ([facility])[address] [place] [address] 08558 Potassium [Moles/Vol] 3.8 mmol/L Normal 3.5-5.3 [facility] Comment on above: Performed By: #### 2 4321-2 ####RAUDEL MENJIVAR ([id number])[facility] ([facility])[address] [place] [address] 36125 Sodium [Moles/Vol] 139 mmol/L Normal 136-145 [facility] Comment on above: Performed By: #### 2 4321-2 ####RAUDEL MENJIVAR ([id number])[facility] ([facility])[address] [place] [address] 11269 Urea nitrogen [Mass/Vol] 10 mg/dL Normal 6-23 [facility] Comment on above: Performed By: #### 2 4321-2 ####RAUDEL MENJIVAR ([id number])[facility] ([facility])[address] [place] [address] 40018 C reactive proteinon 023 CRP [Mass/Vol] 6.62 mg/dL High <1.00 [facility] Comment on above: Performed By: #### 1 988-5 #### RAUDEL MENJIVAR ([id number]) [facility] ([facility]) [address] [place] [address] 35064 C-Reactive Proteinon 023 CRP [Mass/Vol] 6.62 mg/dL High NINF - 1.00 mg/dL [facility] CBC W Auto Differential pane l (Bld)on 03-13-2023 Basophils (Bld) [#/Vol] 0.04 10*3/uL [facility] Basophils/100 WBC (Bld) 0.3 % 0.0 - 2.0 % [facility] Eosinophils (Bld) [#/Vol] 0.33 10*3/uL [facility] Eosinophils/100 WBC (Bld) 2.8 % 0.0 - 6.0 % [facility] Erythrocyte distribution width (RBC) [Ratio] 15.5 % High 11.5 - 14.5 % [facility] Hematocrit (Bld) [Volume fraction] 32.1 % Low 36.0 - 46.0 % [facility] Hemoglobin (Bld) [Mass/Vol] 9.7 g/dL Low 12.0 - 16.0 g/dL [facility] Immature granulocytes (Bld) [#/Vol] 0.12 10*3/uL [facility] Immature granulocytes/100 WBC (Bld) 1.0 % High 0.0 - 0.9 % [facility] Comment on above: Immature Granulocyte Count (IG) includes promyelocytes, myelocytes and metamyelocytes but does not include bands. Percent differential counts (%) should be interpreted in the context of the absolute cell counts (cells/UL). Interpretation and review of laboratory results Abnormal [facility] Lymphocytes (Bld) [#/Vol] 1.38 10*3/uL [facility] Lymphocytes/100 WBC (Bld) 11.8 % 13.0 - 44.0 % [facility] MCH (RBC) [Entitic mass] 26.5 pg 26.0 - 34.0 pg [facility] MCHC (RBC) [Mass/Vol] 30.2 g/dL Low 32.0 - 36.0 g/dL [facility] MCV (RBC) [Entitic vol] 88 fL 80 - 100 fL [facility] Monocytes (Bld) [#/Vol] 0.80 10*3/uL [facility] Monocytes/100 WBC (Bld) 6.9 % 2.0 - 10.0 % [facility] Neutrophils (Bld) [#/Vol] 8.99 10*3/uL High [facility] Comment on above: Percent differential counts (%) should be interpreted in the context of the absolute cell counts (cells/uL). Neutrophils/100 WBC (Bld) 77.2 % 40.0 - 80.0 % [facility] Nucleated RBC/100 WBC (Bld) [Ratio] 0.0 % [facility] Platelet mean volume (Bld) [Entitic vol] 9.6 fL 7.5 - 11.5 fL [facility] Platelets (Bld) [#/Vol] 287 10*3/uL [facility] RBC (Bld) [#/Vol] 3.66 10*6/uL Low [facility] WBC (Bld) [#/Vol] 11.7 10*3/uL High [facility] Basophils (Bld) [#/Vol] 0.04 x10*3/uL Normal 0.00-0.10 [facility] Comment on above: Performed By: #### 5 7021-8 #### RAUDEL MENJIVAR ([id number]) [facility] ([facility]) [address] [place] [address] 03335 Basophils/100 WBC (Bld) 0.3 % Normal 0.0-2.0 [facility] Comment on above: Performed By: #### 5 7021-8 #### RAUDEL MENJIVAR ([id number]) [facility] ([facility]) [address] [place] [address] 18498 Eosinophils (Bld) [#/Vol] 0.33 x10*3/uL Normal 0.00-0.70 [facility] Comment on above: Performed By: #### 5 7021-8 #### RAUDEL MENJIVAR ([id number]) [facility] ([facility]) [address] [place] [address] 50761 Eosinophils/100 WBC (Bld) 2.8 % Normal 0.0-6.0 [facility] Comment on above: Performed By: #### 5 7021-8 #### RAUDEL MENJIVAR ([id number]) [facility] ([facility]) [address] [place] [address] 61192 Erythrocyte distribution width (RBC) [Ratio] 15.5 % High 11.5-14.5 [facility] Comment on above: Performed By: #### 5 7021-8 #### RAUDEL MENJIVAR ([id number]) [facility] ([facility]) [address] [place] [address] Hematocrit (Bld) [Volume fraction] 32.1 % Low 36.0-46.0 [facility] Comment on above: Performed By: #### 5 7021-8 #### RAUDEL MENJIVAR ([id number]) [facility] ([facility]) [address] [place] [address] Hemoglobin (Bld) [Mass/Vol] 9.7 g/dL Low 12.0-16.0 [facility] Comment on above: Performed By: #### 5 7021-8 #### RAUDEL MENJIVAR ([id number]) [facility] ([facility]) [address] [place], [place] [address] Immature granulocytes (Bld) [#/Vol] 0.12 x10*3/uL Normal 0.00-0.70 [facility] Comment on above: Performed By: #### 5 7021-8 #### RAUDEL MENJIVAR ([id number]) [facility] ([facility]) [address] [place], [place] [address] Immature granulocytes/100 WBC (Bld) 1.0 % High 0.0-0.9 [facility] Comment on above: Result Comment: Yuliya ture Granulocyte Count (IG) includes promyelocytes, myelocytes and metamyelocytes but does not include bands. Percent differential counts (%) should be interpreted in the context of the absolute cell counts (cells/UL). Performed By: #### 5 7021-8 #### RAUDEL MENJIVAR ([id number]) [facility] ([facility]) [address] [place] [address] 63817 Lymphocytes (Bld) [#/Vol] 1.38 x10*3/uL Normal 1.20-4.80 [facility] Comment on above: Performed By: #### 5 7021-8 #### RAUDEL MENJIVAR ([id number]) [facility] ([facility]) [address] [place] [address] [id number] Lymphocytes/100 WBC (Bld) 11.8 % Normal 13.0-44.0 [facility] Comment on above: Performed By: #### 7021-8 #### RAUDEL MENJIVAR ([id number]) [facility] ([facility]) [address] [place] [address] [id number] MCH (RBC) [Entitic mass] 26.5 pg Normal 26.0-34.0 [facility] Comment on above: Performed By: #### 5 7021-8 #### RAUDEL MENJIVAR ([id number]) [facility] ([facility]) [address] [place] [address] [id number] MCHC (RBC) [Mass/Vol] 30.2 g/dL Low 32.0-36.0 [facility] Comment on above: Performed By: #### 5 7021-8 #### RAUDEL MENJIVAR ([id number]) [facility] ([facility]) [address] [place] [address] 32445 MCV (RBC) [Entitic vol] 88 fL Normal 80-100 [facility] Comment on above: Performed By: #### 5 7021-8 #### RAUDEL MENJIVAR ([id number]) [facility] ([facility]) [address] [place] [address] 13515 Monocytes (Bld) [#/Vol] 0.80 x10*3/uL Normal 0.10-1.00 [facility] Comment on above: Performed By: #### 5 7021-8 #### RAUDEL MENJIVAR ([id number]) [facility] ([facility]) [address] [place] [address] 34744 Monocytes/100 WBC (Bld) 6.9 % Normal 2.0-10.0 [facility] Comment on above: Performed By: #### 5 7021-8 #### RAUDEL MENJIVAR ([id number]) [facility] ([address] [address] Neutrophils (Bld) [#/Vol] 8.99 x10*3/uL High 1.20-7.70 [facility] Comment on above: Result Comment: Perc ent differential counts (%) should be interpreted in the context of the absolute cell counts (cells/uL). Performed By: #### 5 7021-8 #### RAUDEL MENJIVAR ([id number]) [facility] ([facility]) [address] [place] [address] 09774 Neutrophils/100 WBC (Bld) 77.2 % Normal 40.0-80.0 [facility] Comment on above: Performed By: #### 5 7021-8 #### RAUDEL MENJIVAR ([id number]) [facility] ([facility]) [address] [place] [address] 87074 Nucleated RBC/100 WBC (Bld) [Ratio] 0.0 /100 WBCs Normal 0.0-0.0 [facility] Comment on above: Performed By: #### 5 7021-8 #### RAUDEL MENJIVAR ([id number]) [facility] ([facility]) [address] [place] [address] 75285 Platelet mean volume (Bld) [Entitic vol] 9.6 fL Normal 7.5-11.5 [facility] Comment on above: Performed By: #### 5 7021-8 #### RAUDEL MENJIVAR ([id number]) [facility] ([facility]) [address] [place] [address] 38622 Platelets (Bld) [#/Vol] 287 x10*3/uL Normal 150-450 [facility] Comment on above: Performed By: #### 5 7021-8 #### RAUDEL MENJIVAR ([id number]) [facility] ([facility]) [address] [place] [address] 09712 RBC (Bld) [#/Vol] 3.66 x10*6/uL Low 4.00-5.20 [facility] Comment on above: Performed By: #### 5 7021-8 #### RAUDEL MENJIVAR ([id number]) [facility] ([facility]) [address] [place] [address] WBC (Bld) [#/Vol] 11.7 x10*3/uL High 4.4-11.3 [facility] Comment on above: Performed By: #### 5 7021-8 #### RAUDEL MENJIVAR ([id number]) [facility] ([facility]) [address] [place] [address] CRP [Mass/Vol]on 03-13-2023 Interpretation and review of laboratory results Abnormal [facility] Coagulation surface inducedo n 03-13-2023 aPTT Coag (PPP) [Time] 27 s Normal 27-38 [facility] Comment on above: Order Comment: The A PTT is no longer used for monitoring Unfractionated Heparin Therapy. For monitoring Heparin Therapy, use the Heparin Assay. Performed By: #### 1 4979-9 #### RAUDEL MENJIVAR ([id number]) [facility] ([facility]) [address] [place] [address] Coagulation tissue factor in ducedon 03-13-2023 PT Coag (PPP) [Time] 10.9 s Normal 9.8-12.8 [facility] Comment on above: Performed By: #### 5 902-2 #### RAUDEL MENJIVAR ([id number]) [facility] ([facility]) [address] [place] [address] Hepatic function 2000 panelo n 03-13-2023 Albumin BCP dye [Mass/Vol] 3.2 g/dL Low 3.4 - 5.0 g/dL [facility] ALP [Catalytic activity/Vol] 142 U/L High 33 - 110 U/L [facility] ALT With P-5'-P [Catalytic activity/Vol] 9 U/L 7 - 45 U/L [facility] Comment on above: Patients treated wit h Sulfasalazine may generate falsely decreased results for ALT. AST With P-5'-P [Catalytic activity/Vol] 14 U/L 9 - 39 U/L [facility] Bilirubin [Mass/Vol] 0.7 mg/dL 0.0 - 1 .2 mg/dL [facility] Bilirubin.direct [Mass/Vol] 0.1 mg/dL 0.0 - 0.3 mg/dL [facility] Interpretation and review of laboratory results Abnormal [facility] Protein [Mass/Vol] 6.3 g/dL Low 6.4 - 8.2 g/dL [facility] Albumin BCP dye [Mass/Vol] 3.2 g/dL Low 3.4-5.0 [facility] Comment on above: Performed By: #### 2 5-3 ####RAUDEL MENJIVAR ([id number])[facility] ([facility])[address] [place] [address] ALP [Catalytic activity/Vol] 142 U/L High 33-110 [facility] Comment on above: Performed By: #### 2 4324-3 ####RAUDEL MENJIVAR ([id number])[facility] ([facility])[address] [place] [address] 70757 ALT With P-5'-P [Catalytic activity/Vol] 9 U/L Normal 7-45 [facility] Comment on above: Result Comment: Monika ents treated with Sulfasalazine may generate falsely decreased results for ALT. Performed By: #### 2 5-3 ####RAUDEL MENJIVAR ([id number])[facility] ([facility] [place] [address] AST With P-5'-P [Catalytic activity/Vol] 14 U/L Normal 9-39 [facility] Comment on above: Performed By: #### 2 5-3 ####RAUDEL MENJIVAR ([id number])[facility] ([facility])[address] [place] [address]88 Bilirubin [Mass/Vol] 0.7 mg/dL Normal 0.0-1.2 [facility] Comment on above: Performed By: #### 2 5-3 ####RAUDEL MENJIVAR ([id number])[facility] ([facility])[address] [place] [address]50 Bilirubin.direct [Mass/Vol] 0.1 mg/dL Normal 0.0-0.3 [facility] Comment on above: Performed By: #### 2 4325-3 ####RAUDEL MENJIVAR ([id number])[facility] ([facility])[address] [place] [address] 13567 Protein [Mass/Vol] 6.3 g/dL Low 6.4-8.2 [facility] Comment on above: Performed By: #### 2 4325-3 ####RAUDEL MENJIVAR ([id number])[facility] ([facility])[address] [place] [address] 08582 Lactateon 03-13-2023 Lactate [Moles/Vol] 0.9 mmol/L 0.4 - 2. 0 mmol/L [facility] Lactate [Moles/Vol] 0.9 mmol/L Normal 0.4-2.0 [facility] Comment on above: Order Comment: Venip uncture immediately after or during the administration of Metamizole may lead to falsely low results. Testing should be performed immediately prior to Metamizole dosing. Performed By: #### 2 524-7 #### RAUDEL MENJIVAR ([id number]) [facility] ([facility]) [address] [place] [address]486 Lactate [Moles/Vol]on 2022 Interpretation and review of laboratory results Normal [facility] Venipuncture immediately after or during the administration of Metamizole may lead to falsely low results. Testing should be performed immediately prior to Metamizole dosing. [facility] Magnesiumon 03-13-2023 Magnesium [Mass/Vol] 1.91 mg/dL 1.60 - 2.40 mg/dL [facility] Magnesium [Mass/Vol] 1.91 mg/dL Normal 1.60-2.40 [facility] Comment on above: Performed By: #### 1 9123-9 #### RAUDEL MENJIVAR ([id number]) [facility] ([facility]) [address] [place] [address] 44870 Natriuretic peptide B [Mass/ Vol]on 03-13-2023 Interpretation and review of laboratory results Abnormal [facility] Natriuretic peptide B (Bld) [Mass/Vol] 285 pg/mL High 0 - 99 pg/mL [facility] <100 pg/mL - Heart failure unlikely 100-299 pg/mL - Intermediate probability of acute heart failure exacerbation. Correlate with clinical context and patient history. >=300 pg/mL - Heart Failure likely. Correlate with clinical context and patient history. BNP testing is performed using different testing methodology at [facility] than at other [facility]. Direct result comparisons should only be made within the same method. [facility] Natriuretic peptide B (Bld) [Mass/Vol] 285 pg/mL High 0-99 [facility] Comment on above: Order Comment: <100 pg/mL - Heart failure unlikely 100-299 pg/mL - Intermediate probability of acute heart failure exacerbation. Correlate with clinical context and patient history. >=300 pg/mL - Heart Failure likely. Correlate with clinical context and patient history. BNP testing is performed using different testing methodology at [facility] than at [facility]. Direct result comparisons should only be made within the same method. Performed By: #### 3 0934-4 #### RAUDEL MENJIVAR ([id number]) [facility] ([facility]) [address] [place] [address] No Panel Informationon 03-13 Interpretation and review of laboratory results Abnormal [facility] Interpretation and review of laboratory results Normal [facility] PT Coag (PPP) [Time]Ordered By: Carey Epstein on 03-13-2023 INR Coag (PPP) [Relative time] 1.0 {INR} 0.9 - 1.1 [facility] Interpretation and review of laboratory results Normal [facility] PT Coag (PPP) [Time]on 03-13 INR Coag (PPP) [Relative time] 1.0 Normal 0.9-1.1 [facility] Comment on above: Performed By: #### 5 902-2 #### RAUDEL MENJIVAR ([id number]) [facility] ([facility]) [address] [place] [address] Phosphateon 03-13-2023 Phosphate [Mass/Vol] 4.1 mg/dL Normal 2.5-4.9 [facility] Comment on above: Result Comment: The performance characteristics of phosphorus testing in heparinized plasma have been validated by the individual laboratory site where testing is performed. Testing on heparinized plasma is not approved by the FDA; however, such approval is not necessary. Performed By: #### 2 777-1 #### STARKS TIARA ([id number]) [facility] ([facility]) [address] [place] [address] Phosphoruson 03-13-2023 Phosphate [Mass/Vol] 4.1 mg/dL 2.5 - 4 .9 mg/dL [facility] Comment on above: The performance miles acteristics of phosphorus testing in heparinized plasma have been validated by the individual laboratory site where testing is performed. Testing on heparinized plasma is not approved by the FDA; however, such approval is not necessary. Protime-INROrdered By: Marilynn Epstein on 03-13-2023 PT Coag (PPP) [Time] 10.[address] [facility] Tropinin I.cardiac panel Hig h sensitivity methodon 03-13-2023 Interpretation and review of laboratory results Normal [facility] Less than 99th percentile of normal [...] performed using a different testing methodology at [facility] than at other [facility]. Direct result comparisons should only be made within the same method. [facility] Troponin I, High Sensitivity on 03-13-2023 Tropinin I.cardiac panel High sensitivity method 6 ng/L 0 - 13 ng/L [facility] Troponin I.cardiac panelon 1 Tropinin I.cardiac panel High sensitivity method 6 ng/L Normal 0-13 [facility] Comment on above: Order Comment: Less [...] performed using a different testing methodology at [facility] than at other [facility]. Direct result comparisons should only be made within the same method. Performed By: #### 8 9577-1 #### STARKS TIARA ([id number]) [facility] ([facility]) [address] [place] [address] Urinalysis complete W Reflex Culture panel (U)on 03-13-2023 Appearance (U) Clear Clear [facility] Bilirubin (U) [Mass/Vol] Negative NEGATIVE [facility] Color (U) Straw Straw, Yellow [facility] Glucose Auto test strip (U) [Mass/Vol] Negative NEGATIVE mg/dL [facility] Ketones (U) [Mass/Vol] Negative NEGAT JESUS mg/dL [facility] Leukocyte esterase Auto test strip Ql (U) TRACE Abnormal NEGATIVE [facility] Nitrite Auto test strip Ql (U) Negative NEGATIVE [facility] pH (U) 8.0 [pH] 5.0, 5.5, 6.0, 6.5, 7.0, 7.5, 8.0 [facility] Protein (U) [Mass/Vol] Negative NEGAT JESUS mg/dL [facility] RBC (U) [#/Vol] MODERATE (2+) Abnormal NEGATIVE [facility] Specific gravity (U) [Rel density] 1.010 1.005 - 1.035 [facility] Urobilinogen (U) [Mass/Vol] mg/dL NINF - 2.0 mg/dL [facility] Appearance (U) Clear Normal Clear [facility] Comment on above: Performed By: #### 5 8077-9 ####RAUDEL MENJIVAR ([id number])[facility] ([facility])[address] [place] [address]39 Bilirubin (U) [Mass/Vol] Negative Normal NEGATIVE [facility] Comment on above: Performed By: #### 5 8077-9 ####RAUDEL MENJIVAR ([id number])[facility] ([facility])[address] [place] [address] 21387 Color (U) Straw Normal Straw, Yellow [facility] Comment on above: Performed By: #### 5 8077-9 ####RAUDEL MENJIVAR ([id number])[facility] ([facility])[address] [place] [address] 28811 Glucose Auto test strip (U) [Mass/Vol] Negative Normal NEGATIVE [facility] Comment on above: Performed By: #### 5 8077-9 ####RAUDEL MENJIVAR ([id number])[facility] ([facility])[address] [place] [address] 06837 Ketones (U) [Mass/Vol] Negative Normal NEGATIVE [facility] Comment on above: Performed By: #### 5 8077-9 ####RAUDEL MENJIVAR ([id number])[facility] ([facility])[address] [place] [address] 97481 Leukocyte esterase Auto test strip Ql (U) TRACE Abnormal NEGATIVE [facility] Comment on above: Performed By: #### 5 8077-9 ####RAUDEL MENJIVAR ([id number])[facility] ([facility])[address] [place] [address] 95532 Nitrite Auto test strip Ql (U) Negative Normal NEGATIVE [facility] Comment on above: Performed By: #### 5 8077-9 ####RAUDEL MENJIVAR ([id number])[facility] ([facility])[address] [place] [address] 04601 pH (U) 8.0 [pH] Normal 5.0, 5.5, 6.0, 6.5, 7.0, 7.5, 8.0 [facility] Comment on above: Performed By: #### 5 8077-9 ####RAUDEL MENJIVAR ([id number])[facility] ([facility])[address] [place] [address] 57520 Protein (U) [Mass/Vol] Negative Normal NEGATIVE [facility] Comment on above: Performed By: #### 5 8077-9 ####RAUDEL MENJIVAR ([id number])[facility] ([facility])[address] [place] [address] 52877 RBC (U) [#/Vol] MODERATE (2+) Abnormal NEGATIVE [facility] Comment on above: Performed By: #### 5 8077-9 ####RAUDEL MENJIVAR ([id number])[facility] ([facility])[address] [place] [address] 09355 Specific gravity (U) [Rel density] 1.010 Normal 1.005-1.035 [facility] Comment on above: Performed By: #### 5 8077-9 ####RAUDEL MENJIVAR ([id number])[facility] ([facility])[address] [place] [address] 76449 Urobilinogen (U) [Mass/Vol] mg/dL Normal <2.0 [facility] Comment on above: Performed By: #### 5 8077-9 ####RAUDEL MENJIVAR ([id number])[facility] ([facility])[address] [place] [address] 45442 Urinalysis microscopic panel Auto Ql (U)on 03-13-2023 RBC Auto (Urine sed) [#/Area] 11-20 Abnormal NONE, 1-2, 3-5 /HPF [facility] WBC Auto (Urine sed) [#/Area] 1-5 1-5, NONE /HPF [facility] RBC Auto (Urine sed) [#/Area] 11-20 Abnormal NONE, 1-2, 3-5 [facility] Comment on above: Performed By: #### 5 3315-8 ####RAUDEL MENJIVAR ([id number])[facility] ([facility])[address] [place] [address] WBC Auto (Urine sed) [#/Area] 1-5 Normal 1-5, NONE [facility] Comment on above: Performed By: #### 5 3315-8 ####RAUDEL CERRATOSHANTA ([id number])[facility] ([facility] [place] [address] XR CHEST 1 VIEWon 03-13-2023 XR CHEST 1 VIEW Interpreted By: Jasen Aguirre, STUDY: XR CHEST 1 VIEW; 03/13/2023 5:17 pm INDICATION: Signs/Symptoms:pre-ecla mpsia. COMPARISON: May 25, [address] and December 14, 2020 chest radiograph ACCESSION NUMBER(S): [id number] ORDERING CLINICIAN: EDY ORELLANA FINDINGS: AP radiograph of the chest was provided. CARDIOMEDIASTINAL SILHOUETTE: Cardiomediastinal silhouette is normal in size and configuration. LUNGS: Lungs are clear. ABDOMEN: No remarkable upper abdominal findings. BONES: No acute osseous changes. IMPRESSION: 1. No evidence of acute cardiopulmonary process. MACRO: None Signed by: Jasen Aguirre 03/13/2023 5:28 PM Dictation workstation: [id number] Normal [facility] XR Chest Single viewon 03-13 1. No evidence of ac [place] cardiopulmonary process. MACRO: None Signed by: Jasen Aguirre 03/13/2023 5:28 PM Dictation workstation: [id number] Interpreted By: Jasen Aguirre, STUDY: XR CHEST 1 VIEW; 03/13/2023 5:17 pm INDICATION: Signs/Symptoms:pre-ecla mpsia. COMPARISON: May 25, [address] and December 14, 2020 chest radiograph ACCESSION NUMBER(S): [id number] ORDERING CLINICIAN: EDY ORELLANA FINDINGS: AP radiograph [...] December 14, 2020 chest radiograph ACCESSION NUMBER(S): [id number] ORDERING CLINICIAN: EDY ORELLANA FINDINGS: AP radiograph of the chest was provided. CARDIOMEDIASTINAL SILHOUETTE: Cardiomediastinal silhouette is normal in size and configuration. LUNGS: Lungs are clear. ABDOMEN: No remarkable upper abdominal findings. BONES: No acute osseous changes. IMPRESSION: 1. No evidence of acute cardiopulmonary process. MACRO: None Signed by: Jasen Aguirre 03/13/2023 5:28 PM Dictation workstation: [id number] [facility] Work Phone: Radiology Study observation (narrative) [facility] Work Phone: XR Chest Single viewOrdered By: Jasen Aguirre on 03-13-2023 [facility] Work Phone: aPTT Coag (PPP) [Time]on Interpretation and review of laboratory results Normal [facility] Work Phone: The APTT is no longe r used for monitoring Unfractionated Heparin Therapy. For monitoring Heparin Therapy, use the Heparin Assay. [facility] Work Phone: [facility] Work Phone: Absolute lymphocyte countOrd ered By: Yuri Crenshaw on 03-09-2023 Lymphocytes Auto (Unsp spec) [#/Vol] 2.13 10*3/uL 0.83-4.51 [facility] Basophil percentageOrdered B y: Yuri Crenshaw on 03-09-2023 Basophils/100 WBC (Bld) 0.3 % 0-1 [facility] Eosinophils/100 WBC (Bld) 2.0 % 0-5 [facility] Neutrophils (Bld) [#/Vol] 10.3 10*3/uL 2.0-7.7 [facility] Neutrophils/100 WBC (Bld) 73.2 % 47-70 [facility] WBC (Bld) [#/Vol] 14.1 10*3/uL 4.4-11.0 [facility] Blood erythrocytes count (nu mber/volume)Ordered By: Yuri Crenshaw on 03-09-2023 RBC (Bld) [#/Vol] 3.54 10*6/uL 4.2-5.4 [facility] Blood hemoglobin measurement (mass/volume)Ordered By: Yuri Crenshaw on 03-09-2023 Hemoglobin (Bld) [Mass/Vol] 9.4 g/dL 12.0-15.0 [facility] Blood lymphocytes/100 leukoc ytesOrdered By: Yuri Crenshaw on 03-09-2023 Lymphocytes/100 WBC (Bld) 15.1 % 19-41 [facility] Blood monocytes/100 leukocyt esOrdered By: Yuri Crenshaw on 03-09-2023 Monocytes/100 WBC (Bld) 8.1 % 0-10 [facility] Blood platelet mean volumeOr dered By: Yuri Crenshaw on 03-09-2023 Platelet mean volume (Bld) [Entitic vol] 10.9 fL 6.2-12.0 [facility] Determination of erythrocyte mean corpuscular volume (MCV)Ordered By: Yuri Crenshaw on 03-09-2023 MCV (RBC) [Entitic vol] 84.7 fL 81-99 [facility] Hematocrit Auto (Bld) [Volum e fraction]Ordered By: Yuri Crenshaw on 03-09-2023 Hematocrit (Bld) [Volume fraction] 30.0 % 37-47 [facility] Laboratory - Chemistry and C hemistry - challengeon 03-09-2023 Glucose Ql (U) Negative [facility] - Hematology and Cell countsOrdered By: Yuri Crenshaw on 03-09-2023 Erythrocyte distribution width (RBC) [Entitic vol] 47.6 fL 35.1-43.9 [facility] Erythrocyte distribution width (RBC) [Ratio] 15.6 % 11.6-14.6 [facility] Immature granulocytes/100 WBC (Bld) 1.300 % 0.0-0.9 [facility] Comment on above: IG% - Immature Granu locytes (promyelocytes, myelocytes and metamyelocytes) > 1% indicates that a LEFT SHIFT is Present. MCH (RBC) [Entitic mass] 26.6 pg 27.0-32.0 [facility] Nucleated RBC/100 WBC (Bld) [Ratio] 0.1 % 0-5 [facility] Laboratory - Urinalysison Protein Ql (U) Negative [facility] MCHC Auto (RBC) [Mass/Vol]Or dered By: Yuri Crenshaw on 03-09-2023 MCHC (RBC) [Mass/Vol] 31.3 g/dL 32-36 [facility] Platelets bldOrdered By: Alexis Crenshaw on 03-09-2023 Platelets (Bld) [#/Vol] 281 10*3/uL 150-450 [facility] Serum Treponema species anti body detectionOrdered By: Yuri Crenshaw on 03-09-2023 Treponema sp Ab Ql (S) Non-Reactive [facility] Basophil percentageOrdered B y: Jeanette Roach on 03-08-2023 Basophil percentage 5-10 SEEN /hpf 0-5 [facility] Bilirubin Test strip Ql (U)O rdered By: Jeanette Roach on 03-08-2023 Bilirubin Ql (U) Negative Negative [facility] Ketones Test strip Ql (U)Ord ered By: Jeanette Roach on 03-08-2023 Ketones Ql (U) 50 mg/dl Negative [facility] Mucus LM Ql (Urine sed)Order ed By: Jeanette Roach on 03-08-2023 Mucus Ql (Urine sed) 0 SEEN /hpf [facility] Nitrite Test strip Ql (U)Ord ered By: Jeanette Roach on 03-08-2023 Nitrite Ql (U) Negative Negative [facility] Protein Test strip Ql (U)Ord ered By: Jeanette Roach on 03-08-2023 Protein Ql (U) 30 mg/dl Negative [facility] Squamous epithelial cells de tection in urine sediment by light microscopyOrdered By: Jeanette Roach on 03-08-2023 Epithelial cells.squamous LM Ql (Urine sed) 5-10 SEEN /hpf 5-10 [facility] Urine blood detectionOrdered By: Jeanette Roach on 03-08-2023 RBC Ql (U) 10 /ul Negative [facility] RBC Ql (U) 0-5 SEEN /hpf 0-5 [facility] Urine clarityOrdered By: Marc Roach on 03-08-2023 Clarity (U) Clear Clear [facility] Urine color determinationOrd ered By: Jeanette Roach on 03-08-2023 Color (U) Yellow Yellow [facility] Urine glucose detectionOrder ed By: Jeanette Roach on 03-08-2023 Glucose Ql (U) Normal mg/dl Normal [facility] Urine leukocyte esterase det ection by dipstickOrdered By: Jeanette Roach on 03-08-2023 Leukocyte esterase Test strip Ql (U) 100 /ul Negative [facility] Urine pHOrdered By: Jeanette silva on 03-08-2023 pH (U) 6.5 [pH] 5.0 - 8.0 [facility] Urine sediment bacteria coun t by microscopy (number/high power field)Ordered By: Jeanette Roach on 03-08-2023 Bacteria LM.HPF (Urine sed) [#/Area] 2 /[HPF] None Seen [facility] Urine specific gravity measu rementOrdered By: Jeanette Roach on 03-08-2023 Specific gravity (U) [Rel density] 1.015 1.002-1.030 [facility] Urobilinogen Auto test strip Ql (U)Ordered By: Jeanette Roach on 03-08-2023 Urobilinogen Ql (U) 4 mg/dl Normal [facility] Laboratory - Chemistry and C hemistry - challengeon 02-28-2023 Glucose Ql (U) Negative [facility] - Urinalysison Protein Ql (U) Negative [facility] No Panel InformationOrdered By: Yuri Crenshaw on 02-28-2023 Group B Streptococcus Culture Group B Beta Streptococcus is not isolated. [facility] Basophil percentageOrdered B y: Yuri Crenshaw on 02-18-2023 Bilirubin [Mass/Vol] 1.00 mg/dL 0.20-1.[address] [facility] Comment on above: For patients on eltr ombopag therapy, use of Dimension [place] TBIL is not recommended. Chloride [Moles/Vol] 108 mmol/L 98-[address] [facility] Glucose [Mass/Vol] 85 mg/dL 74-106 [facility] Potassium [Moles/Vol] 3.7 mmol/L 3.5-5.1 [facility] Protein [Mass/Vol] 6.1 g/dL 6.4-8.2 [facility] Sodium [Moles/Vol] 137 mmol/L 136-145 [facility] WBC (Bld) [#/Vol] 10.9 10*3/uL 4.4-11.0 [facility] Blood erythrocytes count (nu mber/volume)Ordered By: Yuri Crenshaw on 02-18-2023 RBC (Bld) [#/Vol] 3.36 10*6/uL 4.2-5.4 [facility] Blood hemoglobin measurement (mass/volume)Ordered By: Yuri Crenshaw on 02-18-2023 Hemoglobin (Bld) [Mass/Vol] 9.5 g/dL 12.0-15.0 [facility] Blood platelet mean volumeOr dered By: Yuri Crenshaw on 02-18-2023 Platelet mean volume (Bld) [Entitic vol] 10.5 fL 6.2-12.0 [facility] Determination of erythrocyte mean corpuscular volume (MCV)Ordered By: Yuri Crenshaw on 02-18-2023 MCV (RBC) [Entitic vol] 87.8 fL 81-99 [facility] Gram stain for investigation of transfusion reactionOrdered By: Yuri Crenshaw on 02-18-2023 Microscopic observation Gram stain Nom (Unsp spec) [facility] Hematocrit Auto (Bld) [Volum e fraction]Ordered By: Yuri Crenshaw on 02-18-2023 Hematocrit (Bld) [Volume fraction] 29.5 % 37-47 [facility] Laboratory - Chemistry and C hemistry - challengeOrdered By: Yuri Crenshaw on 02-18-2023 ALP [Catalytic activity/Vol] 144 U/L 45-117 [facility] ALT [Catalytic activity/Vol] 11 U/L 13-56 [facility] CO2 [Moles/Vol] 20.0 mmol/L 21.0-32.0 [facility] Globulin (S) [Mass/Vol] 3.7 g/dL 2.2-4.2 [facility] Urea nitrogen/Creatinine [Mass ratio] 9.5 mg/mg 10-20 [facility] Laboratory - Hematology and Cell countsOrdered By: Yuri Crenshaw on 02-18-2023 Erythrocyte distribution width (RBC) [Entitic vol] 46.6 fL 35.1-43.9 [facility] Erythrocyte distribution width (RBC) [Ratio] 14.6 % 11.6-14.6 [facility] MCH (RBC) [Entitic mass] 28.3 pg 27.0-32.0 [facility] MCHC Auto (RBC) [Mass/Vol]Or dered By: Yuri Crenshaw on 02-18-2023 MCHC (RBC) [Mass/Vol] 32.2 g/dL 32-36 [facility] No Panel InformationOrdered By: Yuri Crenshaw on 02-18-2023 Estimated GFR (MDRD) Amer 172 mL/min >60 [facility] Comment on above: GFR Calc Estimated GFR (MDRD) Non-Af Amer 142 mL/min >60 [facility] Comment on above: Non- GFR Calc Fibrinogen 527 mg/dl 203-444 [facility] Miscellaneous Test See comment [facility] Comment on above: TEST RESULT LIMITSBi le [...] Range: All Ages: <9.2 TESTING PERFORMED AT [facility]. ORIGINAL REPORT ON FILE IN LAB CONTAINS ADDITIONAL TEST SITE INFORMATION. Vaginal Amniotic Fluid Detection Negative Negative [facility] Comment on above: Amniotic fluid not p resent indicates No Rupture of FetalMembranes at time of specimen collection. Platelets bldOrdered By: Alexis Crenshaw on 02-18-2023 Platelets (Bld) [#/Vol] 278 10*3/uL 150-450 [facility] Serum or plasma albumin edilia urement (mass/volume)Ordered By: Yuri Crenshaw on 02-18-2023 Albumin [Mass/Vol] 2.4 g/dL 3.2-5.0 [facility] Serum or plasma albumin/glob ulin mass ratioOrdered By: Yuri Crenshaw on 02-18-2023 Albumin/Globulin [Mass ratio] 0.6 {ratio} 0.9-2.4 [facility] Serum or plasma calcium edilia urement (mass/volume)Ordered By: Yuri Crenshaw on 02-18-2023 Calcium [Mass/Vol] 8.5 mg/dL 8.5-10.1 [facility] Serum or plasma creatinine m easurement (mass/volume)Ordered By: Yuri Crenshaw on 02-18-2023 Creatinine [Mass/Vol] 0.53 mg/dL 0.55-1.02 [facility] Comment on above: The validity of the calculated GFR & GFRAA in patients over 70 years has not been determined. Clinical correlation is essential. Serum or plasma urea nitroge n measurement (mass/volume)Ordered By: Yuri Crenshaw on 02-18-2023 Urea nitrogen [Mass/Vol] 5 mg/dL 7-18 [facility] Thin prep Papanicolaou smear with manual screeningOrdered By: Yuri Crenshaw on 02-18-2023 Thin prep Papanicolaou smear with manual screening Neisseria or beta-hemolytic Streptococcus isolated. [facility] Thin prep Papanicolaou smear with manual screening 11 U/L 15-37 [facility] Thin prep Papanicolaou smear with manual screening 9 5-15 [facility] Laboratory - Chemistry and C hemistry - challengeon 02-17-2023 Glucose Ql (U) Negative [facility] Laboratory - Urinalysison Protein Ql (U) Negative [facility] Neisseria gonorrhoeae genita l PCROrdered By: Laura Salinas on 02-17-2023 N. gonorrhoeae DNA MAYTE+probe Ql (Genital specimen) [facility] No Panel InformationOrdered By: Laura Salinas on 02-17-2023 Chlamydia trachomatis (PCR) [facility] Laboratory - Chemistry and C hemistry - challengeon 02-02-2023 Glucose Ql (U) Negative [facility] Laboratory - Urinalysison Protein Ql (U) Negative [facility] Absolute lymphocyte countOrd ered By: Love Castillo on 01-30-2023 Lymphocytes Auto (Unsp spec) [#/Vol] 1.57 10*3/uL 0.83-4.51 [facility] Basophil percentageOrdered B y: Love Castillo on 01-30-2023 Basophils/100 WBC (Bld) 0.2 % 0-1 [facility] Bilirubin [Mass/Vol] 1.10 mg/dL 0.20-1.[address] [facility] Comment on above: For patients on eltr ombopag therapy, use of Dimension [place] TBIL is not recommended. Chloride [Moles/Vol] 107 mmol/L 98-[address] [facility] Eosinophils/100 WBC (Bld) 0.8 % 0-5 [facility] Glucose [Mass/Vol] 102 mg/dL 74-106 [facility] Comment on above: Fasting Glucose resu lt from 100 to 125 mg/dL suggests IMPAIRED HOMEOSTASIS per A.D.A. criteria. Neutrophils (Bld) [#/Vol] 5.8 10*3/uL 2.0-7.7 [facility] Neutrophils/100 WBC (Bld) 69.8 % 47-70 [facility] Potassium [Moles/Vol] 3.1 mmol/L 3.5-5.1 [facility] Protein [Mass/Vol] 6.4 g/dL 6.4-8.2 [facility] Sodium [Moles/Vol] 138 mmol/L 136-145 [facility] WBC (Bld) [#/Vol] 8.4 10*3/uL 4.4-11.0 [facility] Blood erythrocytes count (nu mber/volume)Ordered By: Love Castillo on 01-30-2023 RBC (Bld) [#/Vol] 3.39 10*6/uL 4.2-5.4 [facility] Blood hemoglobin measurement (mass/volume)Ordered By: Love Castillo on 01-30-2023 Hemoglobin (Bld) [Mass/Vol] 10.1 g/dL 12.0-15.0 [facility] Blood lymphocytes/100 leukoc ytesOrdered By: Love Castillo on 01-30-2023 Lymphocytes/100 WBC (Bld) 18.8 % 19-41 [facility] Blood monocytes/100 leukocyt esOrdered By: Lovelevar Castillo on 01-30-2023 Monocytes/100 WBC (Bld) 9.4 % 0-10 [facility] Blood platelet mean volumeOr dered By: Love Castillo on 01-30-2023 Platelet mean volume (Bld) [Entitic vol] 9.8 fL 6.2-12.0 [facility] Determination of erythrocyte mean corpuscular volume (MCV)Ordered By: Love Castillo on 01-30-2023 MCV (RBC) [Entitic vol] 90.3 fL 81-99 [facility] Hematocrit Auto (Bld) [Volum e fraction]Ordered By: Love Castillo on 01-30-2023 Hematocrit (Bld) [Volume fraction] 30.6 % 37-47 [facility] Laboratory - Chemistry and C hemistry - challengeOrdered By: Love Castillo on 01-30-2023 ALP [Catalytic activity/Vol] 99 U/L 45-117 [facility] ALT [Catalytic activity/Vol] 22 U/L 13-56 [facility] CO2 [Moles/Vol] 24.0 mmol/L 21.0-32.0 [facility] Globulin (S) [Mass/Vol] 3.9 g/dL 2.2-4.2 [facility] Urea nitrogen/Creatinine [Mass ratio] 8.4 mg/mg 10-20 [facility] Laboratory - Hematology and Cell countsOrdered By: Love Castillo on 01-30-2023 Erythrocyte distribution width (RBC) [Entitic vol] 46.1 fL 35.1-43.9 [facility] Erythrocyte distribution width (RBC) [Ratio] 14.2 % 11.6-14.6 [facility] Immature granulocytes/100 WBC (Bld) 1.000 % 0.0-0.9 [facility] Comment on above: IG% - Immature Granu locytes (promyelocytes, myelocytes and metamyelocytes) > 1% indicates that a LEFT SHIFT is Present. MCH (RBC) [Entitic mass] 29.8 pg 27.0-32.0 [facility] Nucleated RBC/100 WBC (Bld) [Ratio] 0 % 0-5 [facility] MCHC Auto (RBC) [Mass/Vol]Or dered By: Love Castillo on 01-30-2023 MCHC (RBC) [Mass/Vol] 33.0 g/dL 32-36 [facility] No Panel InformationOrdered By: Love Castillo on 01-30-2023 Estimated GFR (MDRD) Amer 151 mL/min >60 [facility] Comment on above: GFR Calc Estimated GFR (MDRD) Non-Af Amer 124 mL/min >60 [facility] Comment on above: Non- GFR Calc Miscellaneous Test See comment [facility] Comment on above: TEST RESULTS LIMITSB ile Acids, Fractionated LCMSUrsodeoxycholic Acids 0.10 umol/LReference Range:All Ages: <1.9Cholic Acids 0.20 umol/LReference Range:All Ages: <2.2Chenodeoxycholic Acids 0.90 umol/LReference Range:All Ages: <5.8Deoxycholic Acids 0.50 umol/LReference Range:All Ages: <3.3Total Bile Acids 1.7 umol/LThis test was developed and its performance characteristicsdetermined by [employer]. It has not been cleared or approvedby the Food and Drug Administration.Reference Range:All Ages: <9.2 TESTING PERFORMED AT [facility]. ORIGINAL REPORT ON FILE IN LAB CONTAINS ADDITIONAL TEST SITE INFORMATION. No Panel InformationOrdered By: Yuri Crenshaw on 01-30-2023 Hepatitis C Antibody Non-Reactive Nonreactive [facility] Comment on above: Non Reactive: < 0.8 Equivocal: >/= 0.8 to < 1.0 Reactive: >/= 1.0The CDC recommends that a reactive/equivocal HCV antibody result be followed up by the HCV Nucleic Acid Amplificationtest (736331) Platelets bldOrdered By: Doug Castillo on 01-30-2023 Platelets (Bld) [#/Vol] 271 10*3/uL 150-450 [facility] Serum hepatitis B virus [place] antibody IgG detectionOrdered By: Yuri Crenshaw on 01-30-2023 HBV surface IgG Ql (S) Non-Reactive [facility] Comment on above: Non Reactive: Incons istent with immunity less than <10 mIU/mL Reactive: Consistent with immunity greater than or equal to 10 mIU/mL Serum or plasma albumin edilia urement (mass/volume)Ordered By: Love Castillo on 01-30-2023 Albumin [Mass/Vol] 2.5 g/dL 3.2-5.0 [facility] Serum or plasma albumin/glob ulin mass ratioOrdered By: Love Castillo on 01-30-2023 Albumin/Globulin [Mass ratio] 0.6 {ratio} 0.9-2.4 [facility] Serum or plasma calcium edilia urement (mass/volume)Ordered By: Love Castillo on 01-30-2023 Calcium [Mass/Vol] 8.6 mg/dL 8.5-10.1 [facility] Serum or plasma creatinine m easurement (mass/volume)Ordered By: Love Castillo on 01-30-2023 Creatinine [Mass/Vol] 0.59 mg/dL 0.55-1.02 [facility] Comment on above: The validity of the calculated GFR & GFRAA in patients over 70 years has not been determined. Clinical correlation is essential. Serum or plasma urea nitroge n measurement (mass/volume)Ordered By: Love Castillo on 01-30-2023 Urea nitrogen [Mass/Vol] 5 mg/dL 7-18 [facility] Thin prep Papanicolaou smear with manual screeningOrdered By: Lovelevar Castillo on 01-30-2023 Thin prep Papanicolaou smear with manual screening 17 U/L 15-37 [facility] Thin prep Papanicolaou smear with manual screening 7 5-15 [facility] Absolute lymphocyte countOrd ered By: ED PROVIDER on 01-23-2023 Lymphocytes Auto (Unsp spec) [#/Vol] 2.06 10*3/uL 0.83-4.51 [facility] Basophil percentageOrdered B y: ED PROVIDER on 01-23-2023 Basophils/100 WBC (Bld) 0.4 % 0-1 [facility] Chloride [Moles/Vol] 105 mmol/L 98-[address] [facility] Eosinophils/100 WBC (Bld) 0.9 % 0-5 [facility] Glucose [Mass/Vol] 99 mg/dL 74-106 [facility] Neutrophils (Bld) [#/Vol] 8.5 10*3/uL 2.0-7.7 [facility] Neutrophils/100 WBC (Bld) 72.6 % 47-70 [facility] Potassium [Moles/Vol] 3.3 mmol/L 3.5-5.1 [facility] Sodium [Moles/Vol] 134 mmol/L 136-145 [facility] WBC (Bld) [#/Vol] 11.7 10*3/uL 4.4-11.0 [facility] Blood erythrocytes count (nu mber/volume)Ordered By: ED PROVIDER on 01-23-2023 RBC (Bld) [#/Vol] 3.71 10*6/uL 4.2-5.4 [facility] Blood hemoglobin measurement (mass/volume)Ordered By: ED PROVIDER on 01-23-2023 Hemoglobin (Bld) [Mass/Vol] 10.9 g/dL 12.0-15.0 [facility] Blood lymphocytes/100 leukoc ytesOrdered By: ED PROVIDER on 01-23-2023 Lymphocytes/100 WBC (Bld) 17.5 % 19-41 [facility] Blood monocytes/100 leukocyt esOrdered By: ED PROVIDER on 01-23-2023 Monocytes/100 WBC (Bld) 6.9 % 0-10 [facility] Blood platelet mean volumeOr dered By: ED PROVIDER on 01-23-2023 Platelet mean volume (Bld) [Entitic vol] 9.7 fL 6.2-12.0 [facility] Determination of erythrocyte mean corpuscular volume (MCV)Ordered By: ED PROVIDER on 01-23-2023 MCV (RBC) [Entitic vol] 89.2 fL 81-99 [facility] Hematocrit Auto (Bld) [Volum e fraction]Ordered By: ED PROVIDER on 01-23-2023 Hematocrit (Bld) [Volume fraction] 33.1 % 37-47 [facility] Laboratory - Chemistry and C hemistry - challengeOrdered By: ED PROVIDER on 01-23-2023 CO2 [Moles/Vol] 18.0 mmol/L 21.0-32.0 [facility] Urea nitrogen/Creatinine [Mass ratio] 14.1 mg/mg 10-20 [facility] Laboratory - Hematology and Cell countsOrdered By: ED PROVIDER on 01-23-2023 Erythrocyte distribution width (RBC) [Entitic vol] 44.8 fL 35.1-43.9 [facility] Erythrocyte distribution width (RBC) [Ratio] 13.9 % 11.6-14.6 [facility] Immature granulocytes/100 WBC (Bld) 1.700 % 0.0-0.9 [facility] Comment on above: IG% - Immature Granu locytes (promyelocytes, myelocytes and metamyelocytes) > 1% indicates that a LEFT SHIFT is Present. MCH (RBC) [Entitic mass] 29.4 pg 27.0-32.0 [facility] Nucleated RBC/100 WBC (Bld) [Ratio] 0 % 0-5 [facility] MCHC Auto (RBC) [Mass/Vol]Or dered By: ED PROVIDER on 01-23-2023 MCHC (RBC) [Mass/Vol] 32.9 g/dL 32-36 [facility] No Panel InformationOrdered By: ED PROVIDER on 01-23-2023 Estimated Creatinine Clearance Calc 151.22 ml/min [facility] Estimated GFR (MDRD) Amer 184 mL/min >60 [facility] Comment on above: GFR Calc Estimated GFR (MDRD) Non-Af Amer 152 mL/min >60 [facility] Comment on above: Non- GFR Calc Troponin I High Sensitivity 6 pg/mL 3.0-54.0 [facility] Comment on above: Please Note: New Theo t Units and Gender Specific Reference Ranges. For more information see Policy Stat Procedure [place] High Sensitivity Troponin (TNIH) and attachments. Platelets bldOrdered By: ED PROVIDER on 01-23-2023 Platelets (Bld) [#/Vol] 310 10*3/uL 150-450 [facility] Serum or plasma calcium edilia urement (mass/volume)Ordered By: ED PROVIDER on 01-23-2023 Calcium [Mass/Vol] 9.4 mg/dL 8.5-10.1 [facility] Serum or plasma creatinine m easurement (mass/volume)Ordered By: ED PROVIDER on 01-23-2023 Creatinine [Mass/Vol] 0.50 mg/dL 0.55-1.02 [facility] Comment on above: The validity of the calculated GFR & GFRAA in patients over 70 years has not been determined. Clinical correlation is essential. Serum or plasma urea nitroge n measurement (mass/volume)Ordered By: ED PROVIDER on 01-23-2023 Urea nitrogen [Mass/Vol] 7 mg/dL 7-18 [facility] Thin prep Papanicolaou smear with manual screeningOrdered By: ED PROVIDER on 01-23-2023 Thin prep Papanicolaou smear with manual screening 11 5-15 [facility] Basophil percentageOrdered B y: Yuri Crenshaw on 01-16-2023 WBC (Bld) [#/Vol] 9.8 10*3/uL 4.4-11.0 [facility] Blood erythrocytes count (nu mber/volume)Ordered By: Yuri Crenshaw on 01-16-2023 RBC (Bld) [#/Vol] 3.16 10*6/uL 4.2-5.4 [facility] Blood hemoglobin measurement (mass/volume)Ordered By: Yuri Crenshaw on 01-16-2023 Hemoglobin (Bld) [Mass/Vol] 9.5 g/dL 12.0-15.0 [facility] Blood platelet mean volumeOr dered By: Yuri Crenshaw on 01-16-2023 Platelet mean volume (Bld) [Entitic vol] 9.9 fL 6.2-12.0 [facility] Chlamydia trachomatis rRNA d etection by probe and target amplification methodOrdered By: Jeanette Roach on 01-16-2023 C. trachomatis rRNA MAYTE+probe Ql (Unsp spec) Positive Negative [facility] Determination of erythrocyte mean corpuscular volume (MCV)Ordered By: Yuri Crenshaw on 01-16-2023 MCV (RBC) [Entitic vol] 92.1 fL 81-99 [facility] Hematocrit Auto (Bld) [Volum e fraction]Ordered By: Yuri Crenshaw on 01-16-2023 Hematocrit (Bld) [Volume fraction] 29.1 % 37-47 [facility] Laboratory - Chemistry and C hemistry - challengeon 01-16-2023 Bilirubin Ql (U) Negative [facility] Glucose Ql (U) Negative [facility] Ketones Ql (U) Small (15+) [facility] Specific gravity (U) [Rel density] 1.010 [facility] Urobilinogen (U) [Mass/Vol] Negative [facility] Laboratory - Hematology and Cell countsOrdered By: Yuri Crenshaw on 01-16-2023 Erythrocyte distribution width (RBC) [Entitic vol] 45.9 fL 35.1-43.9 [facility] Erythrocyte distribution width (RBC) [Ratio] 13.5 % 11.6-14.6 [facility] MCH (RBC) [Entitic mass] 30.1 pg 27.0-32.0 [facility] Laboratory - Hematology and Cell countson 01-16-2023 Hemoglobin Ql (U) Negative [facility] Laboratory - Microbiology an d Antimicrobial susceptibilityOrdered By: Jeanette Roach on 01-16-2023 N. gonorrhoeae DNA MAYTE+probe Ql (Unsp spec) Negative Negative [facility] Comment on above: Performed at: = - [address], [place] [id number] Director: Rita Vallecillo MD, Phone: [phone] Laboratory - Specimen inform ationon 01-16-2023 Clarity (U) Clear [facility] Color (U) RED [facility] Laboratory - Urinalysison Nitrite Ql (U) Negative [facility] Protein Ql (U) Negative [facility] MCHC Auto (RBC) [Mass/Vol]Or dered By: Yuri Crenshaw on 01-16-2023 MCHC (RBC) [Mass/Vol] 32.6 g/dL 32-36 [facility] No Panel InformationOrdered By: Jeanette Roach on 01-16-2023 Vaginal Amniotic Fluid Detection Negative Negative [facility] Comment on above: Amniotic fluid not p resent indicates No Rupture of FetalMembranes at time of specimen collection. No Panel Informationon 01-16 POC Bacterial Vaginitis (Rapid) Negative [facility] POC Trichomonas (Rapid) Negative [facility] Urine Leukocytes Positive [facility] Urine Non-Hemolyzed Blood [facility] Platelets bldOrdered By: Alexis Crenshaw on 01-16-2023 Platelets (Bld) [#/Vol] 256 10*3/uL 150-450 [facility] Absolute lymphocyte countOrd ered By: Melissa Saxena on 12-21-2022 Lymphocytes Auto (Unsp spec) [#/Vol] 1.45 10*3/uL 0.83-4.51 [facility] Basophil percentageOrdered B y: Melissa Saxena on 12-21-2022 Basophils/100 WBC (Bld) 0.4 % 0-1 [facility] Bilirubin [Mass/Vol] 0.60 mg/dL 0.20-1.[address] [facility] Comment on above: For patients on eltr ombopag therapy, use of Dimension [place] TBIL is not recommended. Chloride [Moles/Vol] 106 mmol/L 98-[address] [facility] Eosinophils/100 WBC (Bld) 2.5 % 0-5 [facility] Glucose [Mass/Vol] 139 mg/dL 74-106 [facility] Comment on above: Fasting Glucose resu lt greater than or equal to 126 mg/dL suggests DIABETES MELLITUS per A.D.A. criteria. Neutrophils (Bld) [#/Vol] 6.8 10*3/uL 2.0-7.7 [facility] Neutrophils/100 WBC (Bld) 73.4 % 47-70 [facility] Potassium [Moles/Vol] 3.6 mmol/L 3.5-5.1 [facility] Protein [Mass/Vol] 6.6 g/dL 6.4-8.2 [facility] Sodium [Moles/Vol] 137 mmol/L 136-145 [facility] WBC (Bld) [#/Vol] 9.3 10*3/uL 4.4-11.0 [facility] Blood erythrocytes count (nu mber/volume)Ordered By: Melissa Saxena on 12-21-2022 RBC (Bld) [#/Vol] 3.61 10*6/uL 4.2-5.4 [facility] Blood hemoglobin measurement (mass/volume)Ordered By: Melissa Saxena on 12-21-2022 Hemoglobin (Bld) [Mass/Vol] 11.0 g/dL 12.0-15.0 [facility] Blood lymphocytes/100 leukoc ytesOrdered By: Melissa Saxena on 12-21-2022 Lymphocytes/100 WBC (Bld) 15.7 % 19-41 [facility] Blood monocytes/100 leukocyt esOrdered By: Melissa Saxena on 12-21-2022 Monocytes/100 WBC (Bld) 6.9 % 0-10 [facility] Blood platelet mean volumeOr dered By: Melissa Saxena on 12-21-2022 Platelet mean volume (Bld) [Entitic vol] 9.7 fL 6.2-12.0 [facility] Determination of erythrocyte mean corpuscular volume (MCV)Ordered By: Melissa Saxena on 12-21-2022 MCV (RBC) [Entitic vol] 93.9 fL 81-99 [facility] Gestational diabetes screen 1-hour screen with 50g oral glucose loadOrdered By: Melissa Saxena on 12-21-2022 Glucose 1 Hr post 50 g glucose PO [Mass/Vol] 139 mg/dL 70-140 [facility] HIV 1 and HIV-2 antibody ass ay with HIV-1 p24 antigen detectionOrdered By: Melissa Saxena on 12-21-2022 HIV 1+2 Ab+HIV1 p24 Ag IA Ql Non-Reactive Nonreactive [facility] Hematocrit Auto (Bld) [Volum e fraction]Ordered By: Melissa Saxena on 12-21-2022 Hematocrit (Bld) [Volume fraction] 33.9 % 37-47 [facility] Laboratory - Chemistry and C hemistry - challengeOrdered By: Melissa Saxena on 12-21-2022 ALP [Catalytic activity/Vol] 79 U/L 45-117 [facility] ALT [Catalytic activity/Vol] 10 U/L 13-56 [facility] CO2 [Moles/Vol] 21.0 mmol/L 21.0-32.0 [facility] Globulin (S) [Mass/Vol] 4.1 g/dL 2.2-4.2 [facility] Urea nitrogen/Creatinine [Mass ratio] 7.8 mg/mg 10-20 [facility] Laboratory - Chemistry and C hemistry - challengeon 12-21-2022 Glucose Ql (U) Negative [facility] Laboratory - Hematology and Cell countsOrdered By: Melissa Saxena on 12-21-2022 Erythrocyte distribution width (RBC) [Entitic vol] 45.7 fL 35.1-43.9 [facility] Erythrocyte distribution width (RBC) [Ratio] 13.3 % 11.6-14.6 [facility] Immature granulocytes/100 WBC (Bld) 1.100 % 0.0-0.9 [facility] Comment on above: IG% - Immature Granu locytes (promyelocytes, myelocytes and metamyelocytes) > 1% indicates that a LEFT SHIFT is Present. MCH (RBC) [Entitic mass] 30.5 pg 27.0-32.0 [facility] Nucleated RBC/100 WBC (Bld) [Ratio] 0 % 0-5 [facility] Laboratory - Urinalysison Protein Ql (U) Negative [facility] MCHC Auto (RBC) [Mass/Vol]Or dered By: Melissa Saxena on 12-21-2022 MCHC (RBC) [Mass/Vol] 32.4 g/dL 32-36 [facility] No Panel InformationOrdered By: Melissa Saxena on 12-21-2022 Estimated GFR (MDRD) Amer 137 mL/min >60 [facility] Comment on above: GFR Calc Estimated GFR (MDRD) Non-Af Amer 113 mL/min >60 [facility] Comment on above: Non- GFR Calc Hepatitis B Surface Antigen Non-Reactive Nonreactive [facility] Hepatitis C Antibody Non-Reactive Nonreactive [facility] Comment on above: Non Reactive: < 0.8 Equivocal: >/= 0.8 to < 1.0 Reactive: >/= 1.0The CDC recommends that a reactive/equivocal HCV antibody result be followed up by the HCV Nucleic Acid Amplificationtest (486331) Rubella IgG Antibody Reactive Nonreactive [facility] Comment on above: Antibody Results Int erpretation of Immune Status Non Reactive Presumed Non-Immune Equivocal Equivocal Reactive Presumed Immune Platelets bldOrdered By: Ivanna Saxena on 12-21-2022 Platelets (Bld) [#/Vol] 280 10*3/uL 150-450 [facility] Serum Treponema species anti body detectionOrdered By: Melissa Saxena on 12-21-2022 Treponema sp Ab Ql (S) Non-Reactive [facility] Serum or plasma albumin edilia urement (mass/volume)Ordered By: Melissa Saxena on 12-21-2022 Albumin [Mass/Vol] 2.5 g/dL 3.2-5.0 [facility] Serum or plasma albumin/glob ulin mass ratioOrdered By: Melissa Saxena on 12-21-2022 Albumin/Globulin [Mass ratio] 0.6 {ratio} 0.9-2.4 [facility] Serum or plasma calcium edilia urement (mass/volume)Ordered By: Melissa Saxena on 12-21-2022 Calcium [Mass/Vol] 8.6 mg/dL 8.5-10.1 [facility] Serum or plasma creatinine m easurement (mass/volume)Ordered By: Melissa Saxena on 12-21-2022 Creatinine [Mass/Vol] 0.64 mg/dL 0.55-1.02 [facility] Comment on above: The validity of the calculated GFR & GFRAA in patients over 70 years has not been determined. Clinical correlation is essential. Serum or plasma urea nitroge n measurement (mass/volume)Ordered By: Melissa Saxena on 12-21-2022 Urea nitrogen [Mass/Vol] 5 mg/dL 7-18 [facility] Thin prep Papanicolaou smear with manual screeningOrdered By: Melissa Saxena on 12-21-2022 Thin prep Papanicolaou smear with manual screening 8 U/L 15-37 [facility] Thin prep Papanicolaou smear with manual screening 10 5-15 [facility] Urine creatinine measurement (mass/volume)Ordered By: Melissa Saxena on 12-21-2022 Creatinine (U) [Mass/Vol] 122.00 mg/dL NO RANGE EST. [facility] Urine protein measurement (m ass/volume)Ordered By: Melissa Saxena on 12-21-2022 Protein (U) [Mass/Vol] 23.1 mg/dL 0.0-11.8 [facility] Urine protein/creatinine mas s ratioOrdered By: Melissa Saxena on 12-21-2022 Protein/Creatinine (U) [Mass ratio] 189 mg/g CRE 0-200 [facility] PT Progress Noteon 3 PT Progress Note No report was sent [email or web address] Therapy Communicationon 11-04 Therapy Communication Message QUE ESCOBAR no showed today 11/29/22. Pt NCNS to recheck again. Signatures Electronically signed by : Sylvia Calle, PT; Nov 29 2022 9:53AM EST (Author) Normal [email or web address] Laboratory - Chemistry and C hemistry - challengeon 11-25-2022 Glucose Ql (U) Negative [facility] Laboratory - Urinalysison Protein Ql (U) Negative [facility] PT Progress Noteon 3 PT Progress Note No report was sent [email or web address] Therapy Communicationon 11-03 Therapy Communication Message QUE [...] ABO group Nom (Bld) A [facility] Rh Nom (Bld) Negative [facility] Comment on above: Review your Rh Negat jesus female patient's potential need for Rh Immune Globulin (RhIg)administration. [facility] CBCon 11-11-2022 Erythrocyte distribution width (RBC) [Ratio] 14.2 % Normal 11.5 - 14.5 [facility] Comment on above: Performed By: #### C BC #### [address] [address] Hematocrit (Bld) [Volume fraction] 33.5 % Low 36.0 - 46.0 [facility] Comment on above: Performed By: #### C BC #### [address] [address] Hemoglobin (Bld) [Mass/Vol] 11.4 g/dL Low 12.0 - 16.0 [facility] Comment on above: Performed By: #### C BC #### [address] [address] MCHC (RBC) [Mass/Vol] 34.0 g/dL Normal 32.0 - 36.0 [facility] Comment on above: Performed By: #### C BC #### [address] [address] MCV (RBC) [Entitic vol] 93 fL Normal 80 - 100 [facility] Comment on above: Performed By: #### C BC #### [address] [address] Platelets (Bld) [#/Vol] 271 10*3/uL Normal 150 - 450 [facility] Comment on above: Performed By: #### C BC #### [address] [address] RBC 3.62 x10E12/L Low 4.00 - 5.20 [facility] Comment on above: Performed By: #### C BC #### [facility] [address] [place] [address] WBC (Bld) [#/Vol] 10.5 10*3/uL Normal 4.4 - 11.3 [facility] Comment on above: Performed By: #### C BC #### [address] [place] [address] CBC panel Auto (Bld)on 11-11 Erythrocyte distribution width (RBC) [Ratio] 14.2 % 11.5 - 14.5 % [facility] Hematocrit (Bld) [Volume fraction] 33.5 % Low 36.0 - 46.0 % [facility] Hemoglobin (Bld) [Mass/Vol] 11.4 g/dL Low 12.0 - 16.0 g/dL [facility] Interpretation and review of laboratory results Abnormal [facility] MCHC (RBC) [Mass/Vol] 34.0 g/dL 32.0 - 36.0 g/dL [facility] MCV (RBC) [Entitic vol] 93 fL 80 - 100 fL [facility] Platelets (Bld) [#/Vol] 271 10*3/uL [facility] RBC (Bld) [#/Vol] 3.62 10*6/uL Low [facility] WBC (Bld) [#/Vol] 10.5 10*3/uL [facility] Daily Progress Note - OB-Tri ageon 11-11-2022 Daily Progress Note - OB-Triage Current Stage: Stage: Triage OB Dating: EDC/EGA Final [id number] EGA21.1 Subjective Data: Antepartum Vaginal Bleeding: Yes Movement: Good Antepartum: Patient presents stating that she has had intermittent vaginal bleeding over the last day. Patient states that the bleeding was minimal and she then had intercourse earlier last night. Patient obtains her care in [place]. Objective Information Objective Information: T [id number] [id number]% Date/Time11/11 3:486/9 0:256/9 3:486/9 3:486/9 3:48 Range (78 - 115 ) (16 [...] related to recent intercourse. Follow-up with her PROOF TESTER in the next several days. Electronic Signatures for Addendum Section: Andry Rueda) (Signed Addendum 11-Nov-2022 08:36) Patient given recommendation to avoid intercourse for the time being. Electronic Signatures: Andry Rueda) (Signed 11-Nov-2022 07:48) Authored: Current Stage, OB Dating, Subjective Data, Objective Data, Assessment and Plan, Note Completion Last Updated: 11-Nov-2022 08:36 by Andry Rueda) [facility] Laboratory - Blood bankon ABO group Nom (Bld) A [facility] Work Phone: Blood group antibody screen Ql Negative [facility] Work Phone: Rh immune globulin screen (Bld) [Interp] Negative [facility] Work Phone: Comment on above: Review your Rh Negat jesus female patient's potential need for Rh Immune Globulin (RhIg)administration. Laboratory - Hematology and Cell countson 11-11-2022 Erythrocyte distribution width (RBC) [Ratio] 14.2 % See Below [facility] Work Phone: Comment on above: Reference Range: 11. 5 - 14.5 Hematocrit (Bld) [Volume fraction] 33.5 % below low threshold See Below [facility] vik Caldwell Work Phone: Comment on above: Reference Range: 36. 0 - 46.0 Hemoglobin (Bld) [Mass/Vol] 11.4 g/dL below low threshold See Below [facility] Work Phone: Comment on above: Reference Range: 12. 0 - 16.0 MCHC (RBC) [Mass/Vol] 34.0 g/dL See Below [facility] vik Caldwell Work Phone: Comment on above: Reference Range: 32. 0 - 36.0 MCV (RBC) [Entitic vol] 93 fL 80 - 100 [facility] vik Caldwell Work Phone: Platelets (Bld) [#/Vol] 271 10*3/uL 150 - 450 [facility] Work Phone: RBC (Bld) [#/Vol] 3.62 {x10E12/L} below low threshold See Below [facility] vik Caldwell Work Phone: Comment on above: Reference Range: 4.0 0 - 5.20 WBC (Bld) [#/Vol] 10.5 10*3/uL 4.4 - 11.3 [facility] Work Phone: No Panel Informationon 11-11 Normal [facility] Work Phone: TYPE + SCREENon 11-11-2022 ABO TYPE A Normal [facility] Comment on above: Performed By: #### T +S #### [address] [address] RH TYPE Negative Normal [facility] Comment on above: Result Comment: Josh ew your Rh Negative female patient's potential need for Rh Immune Globulin (RhIg)administration. Performed By: #### T +S #### [address] [address] Triage Note - OB v4on 2022 Triage Note - OB v4 Triage: General Info: Time of Arrival on [id number] 00:07 [place] Level2 Time Acuity Level [id number] 00:15 Chief Complaintvaginal bleeding Spoken Language PreferredEnglish Source of Informationpatient Weight in kg78 kilogram(s) Weight in bpl339.9 pound(s) Weight Methodactual (measured) Scale Typestanding Height in feet5 feet Height in inches5.94 inch(es) Height in cm167.4 centimeter(s) Height Methodstated BMI (kg/m2)27.834 square meter Blood Avoidance/Restrictionsn one Previous Transfusion Reactionnot applicable Patient Belongingsremains with patient Patient Belongings Remaining with Patientcell phone/electronics; clothing Home Meds have been Reviewed and Verified with Patient/Familyyes Info: Gravida6 Term Deliveries5 Deliveries0 Abortions0 Living Children5 Patient stated [id number] Calculation of EGA based on patient stated [...] for Home Blood Pressure Monitorno Admission/Observation/D ischarge/Transfer Date/Usrg64-Pyt-0887 03:53 Discharge Modeambulatory Transportation Methodprivate car Travel History: Travel or ExposureNO travel to International locations in the past 30 days Additional Information: Information Review: Allergies have been Reviewed and Verified with Patient/Familyyes Allergy, Intolerance, Adverse Event: Allergies: No Known Allergies: Active Intolerances: Flagyl: Drug, Nausea/Vomiting, Active Electronic Signatures: Eleuterio BooneRN) (Signed 11-Nov-2022 00:34) Authored: General Info, Info, Substance, Travel History, Additional Information Mame Hughes) (Signed 11-Nov-2022 03:58) Authored: Disposition/Disch, Additional Information Last Updated: 11-Nov-2022 03:58 by Mame Hughes) [facility] PLACENT LOCon 11-11-2022 US PLACENT LOC Patient Name: QUE ESCOBAR STUDY: US PLACENT LOC 11/11/2022 2:16 am INDICATION: 32 y/o F with vaginal bleeding . COMPARISON: 09/10/2022 ACCESSION NUMBER(S): [id number] ORDERING CLINICIAN: ANDRY RUEDA TECHNIQUE: Transabdominal sonographic [...] recommended. Electronically signed by: SOUTH NAJERA MD [facility] for pregnancyon 3 Single live intrauterine with ultrasound average gestational age of 21 week and 4 days. Placenta is fundal in location without evidence of placenta previa. Please note the examination was performed for assessment of viability and anatomy is not assessed; correlation with outpatient full anatomic survey is recommended. [facility] Interpreted By: SOUTH NAJERA MD Patient Name: QUE ESCOBAR STUDY: US PLACENT LOC 11/11/2022 2:16 am INDICATION: 32 y/o F with vaginal bleeding . COMPARISON: 09/10/2022 ACCESSION NUMBER(S): [id number] ORDERING CLINICIAN: ANDRY RUEDA TECHNIQUE: Transabdominal sonographic [...] 21 week and 4 days gestational age. [facility] South Najera MD - 11/11/2022 Interpreted By: SOUTH NAJERA MD Patient Name: QUE ESCOBAR STUDY: US PLACENT LOC 11/11/2022 2:16 am INDICATION: 32 y/o F with vaginal bleeding . COMPARISON: 09/10/2022 ACCESSION NUMBER(S): [id number] ORDERING CLINICIAN: ANDRY RUEDA TECHNIQUE: Transabdominal sonographic [...] with outpatient full anatomic survey is recommended. [facility] Work Phone: Radiology Study observation (narrative) [facility] Work Phone: US for pregnancyOrdered By: South Najera on 11-11-2022 [facility] Work Phone: PT Progress Noteon 3 [...] to doctors? appointments. Primary Language for learning: turkish. Insurance Insurance reviewed Visit number: 3 08/10 Authorization required after evaluation Insurance: [facility] Evaluating therapist: Sharon Baldwin, PT, DPT [...] code time is 38 minutes. Therapeutic exercise (98540): timed minutes 13, units 1 . 3x20 second each UT 3x20 second each levator scap Thoracic Extension 3 x 5 holds N Chin Tuck 10 x 3 holds N Scap Retraction 10 x 3 holds N Pec Stretch . Manual Therapy (40549): timed minutes 25, units 2 . PROM cervical 5' Gentle STW cervical paraspinals, UTs, LS, Pecs 10' Gentle traction 2'. Aquatic Therapy (45535):. Below not performed; deferred at this time d/t current heart monitor All exercises preformed (more content not included)... [email or web address] PT Progress Noteon 3 PT Progress Note No report was sent Normal [email or web address] PT Progress Noteon 3 PT Progress Note [...] to doctors? appointments. Primary Language for learning: turkish. Insurance Insurance reviewed Visit number: 2 07/13 Authorization required after evaluation Insurance: [facility] Evaluating therapist: Sharon Baldwin PT, DPT [...] code time is 43 minutes. Aquatic Therapy (51316): timed minutes 43, units 3 . All [...] Gradual exi (more content not included)... Normal [email or web address] Laboratory - Chemistry and C hemistry - challengeon 10-28-2022 Glucose Ql (U) Negative [facility] Laboratory - Urinalysison Protein Ql (U) Negative [facility] PT Progress Noteon 3 PT Progress Note No report was sent [email or web address] Therapy Communicationon 10-04 Therapy Communication Message QUE ESCOBAR canceled today . Signatures Electronically signed by : Katalina Roach PTA; Oct 27 2022 11:42AM EST (Author) Normal [facility] Initial Evaluationon 10-03 PT Initial Evaluation [...] and agreement by the patient. Assessment Que Escboar, a 32 year old female, arrives to [...] you for this referral and please call [phone] with any questions or concerns. Clinical Presentation: [...] with manual screening Normal genital kenny isolated [facility] Gram stain for investigation of transfusion reactionOrdered By: Dr. Saxena on 09-29-2022 Microscopic observation Gram stain Nom (Unsp spec) [facility] Gram stain for investigation of transfusion reactionOrdered By: Melissa Saxena on 09-28-2022 Microscopic observation Gram stain Nom (Unsp spec) [facility] Laboratory - Chemistry and C hemistry - challengeon 09-28-2022 Glucose Ql (U) Negative [facility] Laboratory - Urinalysison Protein Ql (U) Negative [facility] Thin prep Papanicolaou smear with manual screeningOrdered By: Melissa Saxena on 09-28-2022 Thin prep Papanicolaou smear with manual screening Normal genital kenny isolated [facility] Provider Note - ED v3on 040 Provider Note - ED v3 Provider Note: [...] up with Dr. Yuri Fermin out of [place]. She states that she did have some [...] Alert and oriented x4, GCS 15 , small engine mechanic II-XII grossly intact. Sensation and motor function of extremities grossly intact. Psych: Appropriate mood and affect. I have reviewed and confirmed nurses/medics notes for patient past, social and family history. Portions of this note were dictated by speech recognition. An attempt at proof reading was made to minimize errors. Minor errors in chief credit officer may be present. HISTORY OF PRESENTING ILLNESS [...] it with no difficulty. Patient did the [id number]-[id number] test again with no difficulty showing no [...] is unreason (more content not included)... Normal [facility] ABO/RH GROUP TESTon 09-11-19 23 ABO TYPE A Normal [facility] Comment on above: Performed By: #### A BAY #### [address] [address] RH TYPE Negative Normal [facility] Comment on above: Result Comment: Revi ew your Rh Negative female patient's potential need for Rh Immune Globulin (RhIg)administration. Performed By: #### A BAY #### [address] [address] BASIC METABOLIC PANELon 04-0 Anion gap [Moles/Vol] 10 mmol/L Normal 10 - 20 [facility] Comment on above: Performed By: #### B MP #### [address] [address] Calcium [Mass/Vol] 8.7 mg/dL Normal 8.6 - 10.3 [facility] Comment on above: Performed By: #### B MP #### [address] [address] Chloride [Moles/Vol] 103 mmol/L Normal 98 - 107 [facility] Comment on above: Performed By: #### B MP #### [address] [address] Creatinine [Mass/Vol] 0.56 mg/dL Normal 0.50 - 1.05 [facility] Comment on above: Performed By: #### B MP #### [address] [address] eGFR FEMALE >90 Normal >90 [facility] Comment on above: Result Comment: CALC ULATIONS OF ESTIMATED GFR ARE PERFORMED USING THE 2020 CKD-EPI STUDY REFIT EQUATION WITHOUT THE RACE VARIABLE FOR THE IDMS-TRACEABLE CREATININE METHODS. https://jasn.asnjournals.org/content/early//ASN.41507 918[address] Performed By: #### B MP #### [address] [address] Glucose [Mass/Vol] 84 mg/dL Normal 74 - 99 [facility] Comment on above: Performed By: #### B MP #### [address] [address] HCO3 (Bld) [Moles/Vol] 24 mmol/L Normal 21 - 32 [facility] Comment on above: Performed By: #### B MP #### [address] [address] Potassium [Moles/Vol] 3.8 mmol/L Normal 3.5 - 5.3 [facility] Comment on above: Performed By: #### B MP #### [address] [address] Sodium [Moles/Vol] 133 mmol/L Low 136 - 145 [facility] Comment on above: Performed By: #### B MP #### [address] [address] Urea nitrogen [Mass/Vol] 10 mg/dL Normal 6 - 23 [facility] Comment on above: Performed By: #### B MP #### [address] [address] CBC AND DIFFERENTIALon 09-10 % AUTOMATED IMMATURE GRAN 1.8 % High 0.0 - 0.9 [facility] Comment on above: Result Comment: Yuliya ture Granulocyte Count (IG) includes promyelocytes, myelocytes and metamyelocytes but does not include bands. Percent differential counts (%) should be interpreted in the context of the absolute cell counts (cells/L). Performed By: #### C BCDF #### [address] [address] Basophils (Bld) [#/Vol] 0.03 10*3/uL Normal 0.00 - 0.10 [facility] Comment on above: Performed By: #### C BCDF #### [address] [address] Basophils/100 WBC (Bld) 0.3 % Normal 0.0 - 2.0 [facility] Comment on above: Performed By: #### C BCDF #### [address] [address] Eosinophils (Bld) [#/Vol] 0.31 10*3/uL Normal 0.00 - 0.70 [facility] Comment on above: Performed By: #### C BCDF #### [address] [place] [address] Eosinophils/100 WBC (Bld) 3.4 % Normal 0.0 - 6.0 [facility] Comment on above: Performed By: #### C BCDF #### [address] [address] Erythrocyte distribution width (RBC) [Ratio] 13.0 % Normal 11.5 - 14.5 [facility] Comment on above: Performed By: #### C BCDF #### [address] [address] Hematocrit (Bld) [Volume fraction] 38.5 % Normal 36.0 - 46.0 [facility] Comment on above: Performed By: #### C BCDF #### [address] [address] Hemoglobin (Bld) [Mass/Vol] 13.3 g/dL Normal 12.0 - 16.0 [facility] Comment on above: Performed By: #### C BCDF #### [address] [address] Lymphocytes (Bld) [#/Vol] 2.18 10*3/uL Normal 1.20 - 4.80 [facility] Comment on above: Performed By: #### C BCDF #### [address] [address] Lymphocytes/100 WBC (Bld) 23.9 % Normal 13.0 - 44.0 [facility] Comment on above: Performed By: #### C BCDF #### [address] [address] MCHC (RBC) [Mass/Vol] 34.5 g/dL Normal 32.0 - 36.0 [facility] Comment on above: Performed By: #### C BCDF #### [address] [address] MCV (RBC) [Entitic vol] 88 fL Normal 80 - 100 [facility] Comment on above: Performed By: #### C BCDF #### [address] [address] Monocytes (Bld) [#/Vol] 0.81 10*3/uL Normal 0.10 - 1.00 [facility] Comment on above: Performed By: #### C BCDF #### [address] [address] Monocytes/100 WBC (Bld) 8.9 % Normal 2.0 - 10.0 [facility] Comment on above: Performed By: #### C BCDF #### [address] [address] Neutrophils (Bld) [#/Vol] 5.64 10*3/uL Normal 1.20 - 7.70 [facility] Comment on above: Result Comment: Perc ent differential counts (%) should be interpreted in the context of the absolute cell counts (cells/L). Performed By: #### C BCDF #### [address] [address] Neutrophils/100 WBC (Bld) 61.7 % Normal 40.0 - 80.0 [facility] Comment on above: Performed By: #### C BCDF #### [address] [address] Platelets (Bld) [#/Vol] 253 10*3/uL Normal 150 - 450 [facility] Comment on above: Performed By: #### C BCDF #### [address] [address] RBC 4.39 x10E12/L Normal 4.00 - 5.20 [facility] Comment on above: Performed By: #### C BCDF #### [address] [address] WBC (Bld) [#/Vol] 9.1 10*3/uL Normal 4.4 - 11.3 [facility] Comment on above: Performed By: #### C BCDF #### [address] [address] HCG,BETA-QUANTITATIVEon 04-0 HCG,BETA-QUANTITATIVE [address] mIU/mL Abnormal S [facility] Comment on above: Result Comment: . Total HCG measurement is performed using the [employer] Access Immunoassay which detects intact HCG and free beta HCG subunit. . This test is not indicated for use as a tumor marker. HCG testing is performed using a different test methodology at [facility] than other [facility]. Direct result comparison should only be [...] the HCG elevation. Performed By: #### H [facility] [place] #### [place] [address] Provider Note - ED v3on Provider Note [...] She is seen by Yuri Crenshaw at [place]. Patient states that nothing makes her symptoms [...] chart was dictated with the use of [employer] software within the framework of the current electronic medical records software. Attempts were made to edit in real time, given time constraints there is the potential for inaccuracies in my dictation. Cheyanne Izaguirre, DO HISTORY OF PRESENTING ILLNESS UQE is a 32 year old Female and [...] Flagyl T (more content not included)... Normal [facility] Risk Screen - Adult Emergenc yon 09-10-2022 [...] instruction; written material Cultural Considerationsnone Developmental Considerationsnone Druze Considerationsnone Learning Assessment (Other Learner): Learning Assessment [...] an injured patient at a Trauma Center [place]): no Electronic Signatures: Jessica Tijerina (RN) (Signed 10-Sep-2022 21:01) Authored: Preferred Language, Patient Preferred Pharmacy, Advanced Directives, Family Violence Adult, Learning Assessment (Patient), Learning Assessment (Other Learner), Pressure Injury/TB/Substance, Pressure Injury, CAGE Last Updated: 10-Sep-2022 21:01 by Jessica Tijerina (RN) References: 1. Data Referenced From Provider Note - ED v3 10-Sep-2022 20:06 [facility] Triage - EDon 09-10-2022 Triage - ED [...] BMI (kg/m2): 25.881 Calculated BSA (m2) 1.84 [place] Coma Scale: Best Eye Response: (E4) spontaneous Best Motor Response: (M6) obeys commands Best Verbal Response: (V5) oriented Kylie Score: 15 Cough lasting greater than 3 weeks: no Allergies: yes Mask applied: no PROOF TESTER History: Patient has homicidal thoughts: no Symptoms [...] Past Medical History, Active Electronic Signatures: Jessica Tjierina) (Signed 10-Sep-2022 21:00) Authored: Quick Triage, Chart Review Hamlet Jamison (EMT-P) (Signed 10-Sep-2022 20:18) Entered: Risk Screens, Pain, Travel History, Chart Review, Scores, Past Medical History Authored: Quick Triage, Risk Screens, Pain, Travel History, Chart Review, Scores, Past Medical History Last Updated: 10-Sep-2022 21:00 by Jessica Tijerina (MICHAEL) Normal [facility] UA MICROSCOPICon 09-10-2022 Mucus Ql (Urine sed) 1+ /LPF Normal [facility] Comment on above: Performed By: #### U [facility] ####[address] [address] RBC 5 /HPF Normal 0-5 [facility] Comment on above: Performed By: #### U AMIC ####[place] [address] SQUAMOUS EPITH. CELLS 2 /HPF Normal [facility] Comment on above: Performed By: #### U AMIC ####[place] [id number] WBC 1 /HPF Normal 0-5 [facility] Comment on above: Performed By: #### U AMIC ####[place] [address] URINALYSIS WITH CULTURE IF I NDICATEDon 09-10-2022 Appearance (U) CLEAR Normal CLEAR [facility] Comment on above: Performed By: #### U ARFX #### [place] [address] Bilirubin Ql (U) Negative Normal NEGATIVE [facility] Comment on above: Performed By: #### U ARFX #### [place] [address] Color (U) Yellow Normal STRAW,YELLOW [facility] Comment on above: Performed By: #### U AR[place] #### [place] [address] Glucose Ql (U) Negative Normal NEGATIVE [facility] Comment on above: Performed By: #### U ARFX #### [place] [address] Hemoglobin Ql (U) MODERATE(2+) Abnormal NEGATIVE [facility] Comment on above: Performed By: #### U AR[facility] #### [address] [address] Ketones Ql (U) Negative Normal NEGATIVE [facility] Comment on above: Performed By: #### U ARFX #### [place] [id number] Leukocyte esterase Test strip Ql (U) Negative Normal NEGATIVE [facility] Comment on above: Performed By: #### U ARFX #### [place] [address] Nitrite Ql (U) Negative Normal NEGATIVE [facility] Comment on above: Performed By: #### U ARFX #### [address] [address] pH (U) 5.0 [pH] Normal 5.0 - 8.0 [facility] Comment on above: Performed By: #### U ARFX #### [address] [address] Protein Ql (U) Negative Normal NEGATIVE [facility] Comment on above: Performed By: #### U AR[facility] #### [address] [address] Specific gravity (U) [Rel density] 1.028 Normal 1.005 - 1.035 [facility] Comment on above: Performed By: #### U [facility] #### [address] [address] Urobilinogen (U) [Mass/Vol] mg/dL Normal 0.0 - 1.9 [facility] Comment on above: Performed By: #### U AR[facility] #### [address] [address] US AGEon 09-10-2022 US AGE Patient Name: QUE ESCOBAR STUDY: US AGE 409[birth year]10/2022 9:33 pm INDICATION: 32 y/o F with 12 WEEKS / BLEEDING. LMP: Unknown. COMPARISON: None. ACCESSION NUMBER(S): [id number] ORDERING CLINICIAN: CHEYANNE BRIGGS TECHNIQUE: Routine ultrasound [...] Electronically signed by: EDY BRIGGS MD Normal [facility] Culture, urineOrdered By: Dr Susana Saxena on 08-20-2022 Bacteria identified Cx Nom (U) Culture exhibits no growth. [facility] Cervical or vagninal specime n microscopic examination by cytology stain (reported asOrdered By: Dr. Saxena on 08-17-2022 Cytology report Cyto stain Doc (Cvx/Vag) Comment . [facility] Comment on above: The Pap [...] rRNA MAYTE+probe Ql (Unsp spec) Negative Negative [facility] Detection in cervical specim en of any of human papilloma virus (HPV) 16, 18, 31, 33,Ordered By: Dr. Saxena on 08-17-2022 HPV 16+18+31+33+35+39+45+5 1+52+56+58+59+66+68 DNA Probe+sig amp Ql (Cvx) Negative Negative [facility] Comment on above: This nucleic acid am plification test detects fourteen high- risk HPV types (16,18,31,33,35,39,45,51,52,56,58,59,66,68)without differentiation. Laboratory - CytologyOrdered By: Dr. Saxena on 08-17-2022 Cultural Historian Cyto stain Nom (Cvx/Vag) [ID] Comment . [facility] Comment on above: Lizandro Ferrer, [facility] [place] otechnologist (ASCP) Laboratory - Microbiology an d Antimicrobial susceptibilityOrdered By: Dr. Saxena on 08-17-2022 N. gonorrhoeae DNA MAYTE+probe Ql (Unsp spec) Negative Negative [facility] Comment on above: Performed at: =[address] [id number] Director: Rita Vallecillo MD, Phone: [phone] Laboratory - Miscellaneous t estsOrdered By: Dr. Saxena on 08-17-2022 Service comment (Unsp spec) [Interp] Comment . [facility] Comment on above: This liquid based Th inPrep(R) pap test was screened withthe use of an image guided system. Service comment (Unsp spec) [Interp] . . [facility] Liquid-based cerv Pap + CT/G C by MAYTE w reflex to high-risk HPV for ASCUSOrdered By: Dr. Saxena on 08-17-2022 Cytology report Cyto stain.thin prep Doc (Cvx/Vag) Comment . [facility] Comment on above: Criteria not met, HP V Genotype not performed.Performed at: [facility] - [facility] [id number] Director: Rita Vallecillo MD, Phone: [phone] at: =G - [facility] [id number] Director: Rita Vallecillo MD, Phone: [phone] No Panel InformationOrdered By: Dr. Saxena on 08-17-2022 Pathology report final diagnosis Narrative Comment . [facility] Comment on above: NEGATIVE FOR [...] SARS-CoV-2/Flu/RSV plus RT-PCR Cepheid assay on the [employer] Xpress System. This test has not been approved for use in asymptomatic patients and its performance in this patient population has not been evaluated. Negative results do not rule out the presence of SARS-CoV-2/COVID-19. Fact sheets for this EUA can be found at the following links: For Healthcare Providers: https://www.fda.gov/med ia/533507/download For Patients: https://www.fda.gov/med ia/680765/download [facility] Comment on above: Performed By: #### L [id number] #### [facility] [address], [place] [address] Roberto Cruz M.D. [id number] HCG, Quanton 07-30-2022 HCG, Quant 98328 mIU/mL High <5 [facility] Comment on above: Result Comment: Non-preg premeno <=5 Postmeno <=8 Male <=3 If HCG results do not concur with clinical observations, additional testing to confirm results is recommended. Performed By: #### B HCG #### [facility] [address] [place] [address] Retail Sales Vitamin Consultant: Osiel Sapp MD HCG, Quantitative, on 07-30-2022 hCG Quant 70215 High NINF [facility] Comment on above: Non-preg premeno <=5 Postmeno <=8 Male <=3 If HCG results do not concur with clinical observations, additional testing to confirm results is recommended. Interpretation and review of laboratory results Abnormal [facility] Serum or plasma choriogonado tropin detectionOrdered By: Dr. Saxena on 07-29-2022 HCG ( test) Ql 9612 mIU/mL <4 [facility] Comment on above: hCG levels with Gest ational AgeGestational Age hCG mIU/mL (IU/L)0.2 - 1 week 5 - 501-2 weeks 50 - 5002-3 weeks 100 - 43617-2 weeks 500 - 880149-3 weeks 1000 - 155385-5 weeks 61187 - 100,0006-8 weeks 64054 - 200,0002-3 months 69541 - 100,000 Cult,Urineon 07-28-2022 Cult,Urine Specimen Description .URINE, MIDSTREAM Culture NO SIGNIFICANT GROWTH Report Status FINAL 07/28/2022 Normal [facility] Comment on above: Performed By: #### U RC #### [facility] [employer] [address] [place] [address] Retail Sales Vitamin Consultant: Lucas Olson MD [facility] [address] [place] [address] Retail Sales Vitamin Consultant: Osiel Sapp MD HCG, Quanton 07-28-2022 HCG, Quant 7888 mIU/mL High <5 [facility] Comment on above: Result Comment: Non-preg premeno <=5 Postmeno <=8 Male <=3 If HCG results do not concur with clinical observations, additional testing to confirm results is recommended. Performed By: #### B HCG #### [facility] [address] [place] [address] Retail Sales Vitamin Consultant: Osiel Sapp MD OB TRANSVAGINALon 023 US OB TRANSVAGINAL TRANSVAGINAL [...] Charles Jay MD 07/28/22 Final result Normal [facility] Single viable intrauterine with only a yolk sac visualized with an estimated sonographic age less than 5 weeks. Question subcentimeter subchorionic hemorrhage. Recommend serial beta hCGs and follow-up ultrasound. [facility] CONSOLIDATED TRANSVAGINAL FIRST TRIMESTER OB ULTRASOUND HISTORY: [...] no free fluid seen within the cul-de-sac. [facility] Charles Foote MD - 07/28/2022 [...] Recommend serial beta hCGs and follow-up ultrasound. [facility] Work Phone: Radiology Study observation (narrative) [facility] Alo7 Phone: US OB TRANSVAGINALOrdered By : Charles Jay on 07-28-2022 [facility] Work Phone: hCG, Quantitative, on 07-28-2022 hCG Quant 7888 High NINF [facility] Comment on above: Non-preg premeno <=5 Postmeno <=8 Male <=3 If HCG results do not concur with clinical observations, additional testing to confirm results is recommended. Interpretation and review of laboratory results Abnormal [facility] CBC with Diffon 07-26-2022 Abs. Basophil 0.00 k/uL Normal 0.0-0.2 [facility] Comment on above: Performed By: #### C DP, CP #### [facility] [address] [place], [place] [phone] Retail Sales Vitamin Consultant: Osiel Sapp MD Abs.Neutrophil (Seg) 5.10 k/uL Normal 2.5-7.0 [facility] Comment on above: Performed By: #### C DP, CP #### [facility] [address] [place], [place] [phone] Retail Sales Vitamin Consultant: Osiel Sapp MD Auto Diff Performed YES Normal [facility] Comment on above: Performed By: #### C DP, CP #### [facility] [address] [place] [address] Retail Sales Vitamin Consultant: Osiel Sapp MD Basophils/100 WBC (Bld) 0 % Normal 0-2 [facility] Comment on above: Performed By: #### C DP, CP #### [facility] [address] [place] [phone] Retail Sales Vitamin Consultant: Osiel Sapp MD Eosinophils (Bld) [#/Vol] 0.30 10*3/uL Normal 0.0-0.4 [facility] Comment on above: Performed By: #### C DP, CP #### [facility] [address] [place] [address] Retail Sales Vitamin Consultant: Osiel Sapp MD Eosinophils/100 WBC (Bld) 3 % Normal 0-5 [facility] Comment on above: Performed By: #### C DP, CP #### [facility] [address] [place] [address] Retail Sales Vitamin Consultant: Osiel Sapp MD Erythrocyte distribution width (RBC) [Ratio] 13.1 % Normal 12.1-15.2 [facility] Comment on above: Performed By: #### C DP, CP #### [facility] [address] [place] [address] Retail Sales Vitamin Consultant: Osiel Sapp MD Hematocrit (Bld) [Volume fraction] 41.1 % Normal 36-46 [facility] Comment on above: Performed By: #### C DP, CP #### [facility] [address] [place] [address] Retail Sales Vitamin Consultant: Osiel Sapp MD Hemoglobin (Bld) [Mass/Vol] 14.0 g/dL Normal 12.0-16.0 [facility] Comment on above: Performed By: #### C DP, CP #### [facility] [address] [place] [address] Retail Sales Vitamin Consultant: Osiel Sapp MD Lymphocytes (Bld) [#/Vol] 2.40 10*3/uL Normal 1.0-4.8 [facility] Comment on above: Performed By: #### C DP, CP #### [facility] [address] [place] [address] Retail Sales Vitamin Consultant: Osiel Sapp MD Lymphocytes/100 WBC (Bld) 28 % Normal 15-40 [facility] Comment on above: Performed By: #### C DP, CP #### [facility] [address] [place] [address] Retail Sales Vitamin Consultant: Osiel Sapp MD MCH (RBC) [Entitic mass] 30.3 pg Normal 26-34 [facility] Comment on above: Performed By: #### C DP, CP #### [facility] [address] [place] [address] Retail Sales Vitamin Consultant: Osiel Sapp MD MCHC (RBC) [Mass/Vol] 34.0 g/dL Normal 31-37 [facility] Comment on above: Performed By: #### C DP, CP #### [facility] [address] [place] [address] Retail Sales Vitamin Consultant: Osiel Sapp MD MCV (RBC) [Entitic vol] 89.2 fL Normal 80-100 [facility] Comment on above: Performed By: #### C DP, CP #### [facility] [address] [place] [address] Retail Sales Vitamin Consultant: Osiel Sapp MD Monocytes (Bld) [#/Vol] 0.60 10*3/uL Normal 0.0-1.0 [facility] Comment on above: Performed By: #### C DP, CP #### [facility] [address] [place] [phone] (919) Retail Sales Vitamin Consultant: Osiel Sapp MD Monocytes/100 WBC (Bld) 7 % Normal 4-8 [facility] Comment on above: Performed By: #### C DP, CP #### [facility] [address] [place], [place] [phone] (435) Retail Sales Vitamin Consultant: Osiel Sapp MD Neutrophil (Seg) 62 % Normal 47-75 [facility] Comment on above: Performed By: #### C DP, CP #### [facility] [address] [place] [address] (914) Retail Sales Vitamin Consultant: Osiel Sapp MD Platelets (Bld) [#/Vol] 276 10*3/uL Normal 140-450 [facility] Comment on above: Performed By: #### C DP, CP #### [facility] [address] [place] [address] Retail Sales Vitamin Consultant: Osiel Sapp MD RBC (Bld) [#/Vol] 4.61 10*6/uL Normal 4.0-5.2 [facility] Comment on above: Performed By: #### C DP, CP #### [facility] [address] [place] [address] (128) Retail Sales Vitamin Consultant: Osiel Sapp MD WBC (Bld) [#/Vol] 8.3 10*3/uL Normal 3.5-11.0 [facility] Comment on above: Performed By: #### C DP, CP #### [facility] [address] [place] [address] Retail Sales Vitamin Consultant: Osiel Sapp MD Comp Metabolic Profon 2022 Albumin [Mass/Vol] 4.3 g/dL Normal 3.5-5.2 [facility] Comment on above: Performed By: #### C DP, CP #### [facility] [address] [place] [address] Retail Sales Vitamin Consultant: Osiel Sapp MD Alkaline Phos 115 U/L High 35-104 [facility] Comment on above: Performed By: #### C DP, CP #### [facility] [address] [place], [place] [phone] Retail Sales Vitamin Consultant: Osiel Sapp MD ALT [Catalytic activity/Vol] 16 U/L Normal 5-33 [facility] Comment on above: Performed By: #### C DP, CP #### [facility] [address] [place], [place] [phone] Retail Sales Vitamin Consultant: Osiel Sapp MD Anion gap [Moles/Vol] 12 mmol/L Normal 9-17 [facility] Comment on above: Performed By: #### C DP, CP #### [facility] [address] [place], [place] [phone] Retail Sales Vitamin Consultant: Osiel Sapp MD AST [Catalytic activity/Vol] 17 U/L Normal <32 [facility] Comment on above: Performed By: #### C DP, CP #### [facility] [address] [place], [place] [phone] Retail Sales Vitamin Consultant: Osiel Sapp MD Bilirubin [Mass/Vol] 0.6 mg/dL Normal 0.3-1.2 [facility] Comment on above: Performed By: #### C DP, CP #### [facility] [address] [place], [place] [phone] Retail Sales Vitamin Consultant: Osiel Sapp MD BUN/CRE Ratio 13 Normal 9-20 [facility] Comment on above: Performed By: #### C DP, CP #### [facility] [address] [place], [place] [phone] Retail Sales Vitamin Consultant: Osiel Sapp MD Calcium [Mass/Vol] 9.1 mg/dL Normal 8.6-10.4 [facility] Comment on above: Performed By: #### C DP, CP #### [facility] [address] [place], [place] [phone] Retail Sales Vitamin Consultant: Osiel Sapp MD Chloride [Moles/Vol] 99 mmol/L Normal 98-107 [facility] Comment on above: Performed By: #### C DP, CP #### [facility] [address] [place], [place] [phone] Retail Sales Vitamin Consultant: Osiel Sapp MD CO2 [Moles/Vol] 20 mmol/L Normal 20-[address] [facility] Comment on above: Performed By: #### C DP, CP #### [facility] [address] [place] [address] Retail Sales Vitamin Consultant: Osiel Sapp MD Creatinine [Mass/Vol] 0.82 mg/dL Normal 0.50-0.90 [facility] Comment on above: Performed By: #### C DP, CP #### [facility] [address] [place], [place] [phone] Retail Sales Vitamin Consultant: Osiel Sapp MD GFR/1.73 sq M.predicted among non-blacks MDRD (S/P/Bld) [Vol rate/Area] mL/min/{1.73_m2} Normal >60 [facility] [...] Performed By: #### C DP, CP #### [facility] [address] [place], [place] [phone] Retail Sales Vitamin Consultant: Osiel Sapp MD Glucose [Mass/Vol] 91 mg/dL Normal 70-99 [facility] Comment on above: Performed By: #### C DP, CP #### [facility] [address] [place], [place] [phone] Retail Sales Vitamin Consultant: Osiel Sapp MD Potassium [Moles/Vol] 3.7 mmol/L Normal 3.7-5.3 [facility] Comment on above: Performed By: #### C DP, CP #### [facility] [address] [place] [address] Retail Sales Vitamin Consultant: Osiel Sapp MD Protein [Mass/Vol] 7.2 g/dL Normal 6.4-8.3 [facility] Comment on above: Performed By: #### C DP, CP #### [facility] [address] [place] [address] Retail Sales Vitamin Consultant: Osiel Sapp MD Sodium [Moles/Vol] 131 mmol/L Low 135-144 [facility] Comment on above: Performed By: #### C DP, CP #### [facility] [address] [place] [address] Retail Sales Vitamin Consultant: Osiel Sapp MD Urea nitrogen [Mass/Vol] 11 mg/dL Normal 6-20 [facility] Comment on above: Performed By: #### C DP, CP #### [facility] [address] [place] [address] Retail Sales Vitamin Consultant: Osiel Sapp MD HCG, ,Urineon 07-26 Beta HCG ( test) Ql (U) Positive Abnormal NEG [facility] Comment on above: Result Comment: If H CG results do not concur with clinical observations, additional testing to confirm result is recommended. This test is not labeled for use as a tumor marker. Performed By: #### U A, UHCG, UMICAO #### [facility] [address] [place] [address] Retail Sales Vitamin Consultant: Osiel Sapp MD HCG, Quanton 07-26-2022 HCG, Quant 5174 mIU/mL High <5 [facility] Comment on above: Result Comment: Non-preg premeno <=5 Postmeno <=8 Male <=3 If HCG results do not concur with clinical observations, additional testing to confirm results is recommended. Performed By: #### B HCG #### [facility] [address] [place] [address] Retail Sales Vitamin Consultant: Osiel Sapp MD Urinalysis, Routineon 2022 Bilirubin, SemiQt,Ur Negative Normal NEG [facility] Comment on above: Performed By: #### U A, CG, UMICAO #### [facility] [address] [place] [address] Retail Sales Vitamin Consultant: Osiel Sapp MD Blood, Urine Negative Normal NEG [facility] Comment on above: Performed By: #### U A, [facility], UMICAO #### [facility] [address] [place] [address] Retail Sales Vitamin Consultant: Osiel Sapp MD Clarity (U) Clear Normal CLEAR [facility] Comment on above: Performed By: #### U A, [facility], UMICAO #### [facility] [address] [place] [address] Retail Sales Vitamin Consultant: Osiel Sapp MD Color (U) Yellow Normal YEL [facility] Comment on above: Performed By: #### U A, [facility], UMICAO #### [facility] [address] [place] [address] Retail Sales Vitamin Consultant: Osiel Sapp MD Comment Normal [facility] Comment on above: Performed By: #### U A, [facility], UMICAO #### [facility] [address] [place] [address] Retail Sales Vitamin Consultant: Osiel Sapp MD Glucose Ql (U) Negative Normal NEG [facility] Comment on above: Performed By: #### U A, CG, UMICAO #### [facility] [address] [place] [address] Retail Sales Vitamin Consultant: Osiel Sapp MD Ketones Ql (U) TRACE Abnormal NEG [facility] Comment on above: Performed By: #### U Renee [facility], UMICAO #### [facility] [address] [place], [place] [phone] Retail [employer] Consultant: Osiel Sapp MD Leukocyte esterase Test strip Ql (U) 1+ Abnormal NEG [facility] Comment on above: Performed By: #### U Renee [facility], UMICAO #### [facility] [address] [place] [address] Retail [employer] Vitamin Consultant: Osiel Sapp MD Nitrite,Ur Negative Normal NEG [facility] Comment on above: Performed By: #### U Renee [facility], UMICAO #### [facility] [address] [place] [address] Retail [employer] Vitamin Consultant: Osiel Sapp MD PH,Ur 5.0 Normal 5.0-8.0 [facility] Comment on above: Performed By: #### U Renee [facility] [place], UMICAO #### [facility] [address] [place] [address] Retail [employer] Vitamin Consultant: Osiel Sapp MD Protein Ql (U) TRACE Abnormal NEG [facility] Comment on above: Performed By: #### U Renee [facility], UMICAO #### [facility] [address] [place] [address] Retail Sales Vitamin Consultant: Osiel Sapp MD Spec. [place],Ur 1.025 Normal 1.005-1.030 [facility] Comment on above: Performed By: #### U A [facility], UMICAO #### [facility] [address] [place], [place] [phone] Retail Sales Vitamin Consultant: Osiel Sapp MD Urobilinogen,Ur Normal Normal NORM [facility] Comment on above: Performed By: #### U A JenniferG, UMICAO #### [facility] [address] [place] [address] Retail Sales Vitamin Consultant: Osiel Sapp MD Urinalysis,Microon 3 ----- Normal [facility] Comment on above: Performed By: #### U A, UHCG, UMICAO #### [facility] [address] [place] [address] Retail Sales Vitamin Consultant: Osiel Sapp MD Bacteria RARE Abnormal NONE [facility] Comment on above: Performed By: #### U A, UHCG, UMICAO #### [facility] [address] [place] [address] Retail [employer] Consultant: Osiel Sapp MD Urine RBC's 0 TO 2 Normal 0-2 [facility] Comment on above: Performed By: #### U A, UHCG, UMICAO #### [facility] [address] [place] [address] [employer] Sales Vitamin Consultant: Osiel Sapp MD Urine WBC's 2 TO 5 Normal 0 [facility] Comment on above: Performed By: #### U A, UHCG, UMICAO #### [facility] [address] [place] [address] Retail Sales Vitamin Consultant: Osiel Sapp MD CT LUMBAR SPINE WO [...] Devan Miles DO 07/14/22 Final result Normal [facility] Unremarkable CT examination of the lumbar spine. [facility] RIS CONSOLIDATED EXAMINATION:CT LUMBA R SPINE WO CONTRAST HISTORY:Reason for exam:->back pain with sciatica COMPARISON:None TECHNIQUE:Multiple thin section transaxial slices were acquired through the lumbar spine without contrast. Coronal and sagittal reconstructed images were reviewed. FINDINGS: There is normal alignment of the lumbar spine without spondylolisthesis. No acute compression fractures are noted. The disc spaces are well-maintained. Surrounding paraspinal soft tissues are grossly unremarkable. [facility] CONSOLIDATED Ginger, Devan Razo, DO - 07/14/2022 EXAMINATION:CT LUMBAR SPINE WO [...] Unremarkable CT examination of the lumbar spine. [facility] [employer] Work Phone: CT LUMBAR SPINE WO CONTRASTO rdered By: Devan Miles on 07-14-2022 [facility] Work Phone: HCG, ,Urineon 07-14 Beta HCG ( test) Ql (U) Negative Normal NEG [facility] Comment on above: Performed By: #### U HCG ####[facility] [id number] [place] [address] lab Director: Osiel Sapp MD CT LUMBAR SPINE WO CONTRASTo n 07-13-2022 Radiology Study observation (narrative) [facility] Phone: Urine Preg (Lab)on 3 Beta HCG ( test) Ql (U) Negative NEGATIVE [facility] [employer] COVID-19/INFLUENZA A,B MOLEC ULARon 05-09-2022 SARS-CoV-2 (COVID-19) Ab IA Ql INFLUENZA A (CEPHEID): Detected INFLUENZA B (CEPHEID): Not Detected SARS-COV-2 (CEPHEID): Not Detected This test was performed under the FDA's Emergency Use Authorization (EUA). Testing was performed using the Xpert?? Xpress SARS-CoV-2/Flu/RSV plus RT-PCR [facility] assay on the [employer] Xpress System. This test has not been approved for use in asymptomatic patients and its performance in this patient population has not been evaluated. Negative results do not rule out the presence of SARS-CoV-2/COVID-19. Fact sheets for this EUA can be found at the following links: For Healthcare Providers: https://www.fda.gov/med ia/130093/download For Patients: https://www.fda.gov/med ia/223951/download [facility] Comment on above: Performed By: #### L [id number] #### SH [address] [address] Roberto Cruz M.D. [id number] CORONAVIRUS 2019, SCREEN ASY MPTOMATICon 11-09-2021 SARS-CoV-2 (COVID-19) RNA MAYTE+probe Ql (Unsp spec) Canceled Normal [facility] Comment on above: Order Comment: TEST CORONAVIRUS [...] patient management decisions. Fact sheet for providers: https://www.fda.gov/media/969175/download Fact sheet for patients: https://www.fda.gov/media/353518/download This test has received FDA Emergency Use Authorization (EUA) and has been verified by [facility] ([facility]). This test is only authorized for the duration of time that circumstances exist to justify the authorization of the emergency use of in vitro diagnostic tests for the detection of SARS-CoV-2 virus and/or diagnosis of COVID-19 infection under section 564(b)(1) of the Act, 21 U.S.C. 360bbb-3(b)(1), unless the authorization is terminated or revoked sooner. [facility] is certified under CLIA-88 as qualified to perform high complexity testing. Testing is performed in the [facility] laboratories located at [address] [place] [address]. Performed By: #### C OVSC #### [place] [address] CORONAVIRUS 2019, SCREEN ASY MPTOMATICon 10-11-2021 SARS-CoV-2 (COVID-19) RNA MAYTE+probe Ql (Unsp spec) Not detected Normal Not Detected [facility] Comment on above: Result Comment: . This [...] patient management decisions. Fact sheet for providers: https://www.fda.gov/media/321160/download Fact sheet for patients: https://www.fda.gov/media/928027/download This test has received FDA Emergency Use Authorization (EUA) and has been verified by [facility] ([facility]). This test is only authorized for the duration of time that circumstances exist to justify the authorization of the emergency use of in vitro diagnostic tests for the detection of SARS-CoV-2 virus and/or diagnosis of COVID-19 infection under section 564(b)(1) of the Act, 21 U.S.C. 360bbb-3(b)(1), unless the authorization is terminated or revoked sooner. [facility] is certified under CLIA-88 as qualified to perform high complexity testing. Testing is performed in the [facility] laboratories located at [id number] [place] [address]. Performed By: #### C OVSC #### [address] [place] [address] Covid 19 Resultson 2 SARS-CoV-2 (COVID-19) RNA [...] You may also be contacted by the [place] Department of Health to see if any of your close [...] or Naproxen (Aleve) can also be used. Yxuc-nsi-mfyofjt cough and cold medicines can be used according to the instructions on the package. Some gzuz-yvh-nfeomqh medicines also contain acetaminophen. Make sure you [...] water are not available, use alcohol-based hand football pad repairer. Avoid touching your eyes, nose, and mouth [...] 24 suzette (more content not included)... Normal [facility] CORONAVIRUS 2019, SCREEN ASY MPTOMATICon 10-10-2021 Lab Specimen Source Nasal, Nasopharyngeal Normal [facility] Comment on above: Performed By: #### C OVSC #### [facility] [address] [place] [address] Coronavirus 2019 RNA by PCR, Screening Asymptomticon 10-10-2021 Coronavirus 2019 RNA by PCR, Screening Asymptomtic Not detected Normal See Below [facility] [address] [employer] Work Phone: Comment on above: SOURCE: Nasal, [...] make patient management decisions.Fact sheet for providers: https://www.fda.gov/media/382264/downloadFact sheet for patients: https://www.fda.gov/media/089416/downloadThis test has received FDA Emergency Use Authorization (EUA) and has been verified by [facility] ([facility]). This test is only authorized for the duration of time that circumstances exist to justify the authorization of the emergency use of in vitro diagnostic tests for the detection of SARS-CoV-2 virus and/or diagnosis of COVID-19 infection under section 564(b)(1) of the Act, 21 U.S.C. 360bbb-3(b)(1), unless the authorization is terminated or revoked sooner. [facility] is certified under CLIA-88 as qualified to perform high complexity testing. Testing is performed in the [facility] laboratories located at [address] [place] [address]. CORONAVIRUS 2018, SCREEN ASY MPTOMATICon 10-08-2021 Lab Specimen Source Nasal, Nasopharyngeal Normal [facility] Comment on above: Order Comment: TEST CORONAVIRUS 2018, SCREEN ASYMPTOMATIC WAS CANCELLED, 11/09/2021 11:40 test not completed. Performed By: #### C OVSC #### [facility] [id number] [place] [address]. [place] [address] Laboratory - Chemistry and C hemistry - challengeon 09-26-2021 Albumin BCP dye [Mass/Vol] 3.2 g/dL below low threshold 3.4 - 5.0 [employer] Work Phone: ALP [Catalytic activity/Vol] 125 U/L above high threshold 33 - 110 [employer] Work Phone: ALT With P-5'-P [Catalytic activity/Vol] 7 U/L 7 - 45 [employer] Work Phone: Comment on above: Patients treated wit h Sulfasalazine may generate falsely decreased results for ALT. Anion gap [Moles/Vol] 14 mmol/L 10 - [address] [facility] Work Phone: AST With P-5'-P [Catalytic activity/Vol] 10 U/L 9 - 39 [employer] Work Phone: Bilirubin [Mass/Vol] 0.6 mg/dL 0.0 - 1.2 [facility] Work Phone: Calcium [Mass/Vol] 7.7 mg/dL below low threshold 8.6 - 10.3 [employer] Work Phone: Chloride [Moles/Vol] 107 mmol/L 98 - 107 [facility] Work Phone: [phone] CO2 [Moles/Vol] 18 mmol/L below low threshold 21 - 32 [employer] Work Phone: [phone] Creatinine [Mass/Vol] 0.44 mg/dL below low threshold See Below [employer] Work Phone: Comment on above: Reference Range: 0.5 0 - 1.05 Glucose [Mass/Vol] 117 mg/dL above high threshold 74 - 99 [employer] Work Phone: Potassium [Moles/Vol] 3.5 mmol/L 3.5 - 5.3 [facility] Work Phone: Protein [Mass/Vol] 6.0 g/dL below low threshold 6.4 - 8.2 [employer] Work Phone: Sodium [Moles/Vol] 135 mmol/L below low threshold 136 - 145 [employer] Work Phone: Urea nitrogen [Mass/Vol] 7 mg/dL 6 - 23 [facility] Work Phone: Laboratory - Hematology and Cell countson 09-26-2021 Erythrocyte distribution width (RBC) [Ratio] 14.2 % See Below [employer] Work Phone: Comment on above: Reference Range: 11. 5 - 14.5 Hematocrit (Bld) [Volume fraction] 33.5 % below low threshold See Below [employer] Work Phone: Comment on above: Reference Range: 36. 0 - 46.0 Hemoglobin (Bld) [Mass/Vol] 11.1 g/dL below low threshold See Below [employer] Work Phone: Comment on above: Reference Range: 12. 0 - 16.0 MCHC (RBC) [Mass/Vol] 33.2 g/dL See Below [facility] Work Phone: Comment on above: Reference Range: 32. 0 - 36.0 MCV (RBC) [Entitic vol] 92 fL 80 - 100 [employer] Work Phone: [phone] Platelets (Bld) [#/Vol] 233 10*3/uL 150 - 450 [employer] Work Phone: [phone] RBC (Bld) [#/Vol] 3.66 {x10E12/L} below low threshold See Below [employer] Work Phone: Comment on above: Reference Range: 4.0 0 - 5.20 WBC (Bld) [#/Vol] 12.0 10*3/uL above high threshold 4.4 - 11.3 [employer] Work Phone: No Panel Informationon 09-26 >90 >90 [employer] Work Phone: Comment on above: CALCULATIONS OF YOLANDA MATED GFR ARE PERFORMED USING THE 2020 CKD-EPI STUDY REFIT EQUATION WITHOUT THE RACE VARIABLE FOR THE IDMS-TRACEABLE CREATININE METHODS.https://jasn.asnjournals.org/content//A SN.3188697000 Total Protein, Urine Spoton 09-26-2021 Creatinine (U) [Mass/Vol] 86.0 mg/dL See Below [employer] Work Phone: Comment on above: Reference Range: 20. 0 - 320.0 Protein (U) [Mass/Vol] 19 mg/dL 5 - 24 [employer] Work Phone: Protein/Creatinine (U) [Ratio] 0.22 {mg/mg_Creat} above high threshold See Below [employer] Work Phone: Comment on above: Reference Range: 0.0 0 - 0.17 Uric Acid, Serumon 2 Urate [Mass/Vol] 4.1 mg/dL 2.3 - 6.7 [facility] [employer] Work Phone: Comment on above: Venipuncture immedia tely after or during the administration of Metamizole may lead to falsely low results. Testing should be performed immediately prior to Metamizole dosing. GROUP B STREP SCREENon 09-17 GROUP B STREP SCREEN PATIENT: ARSALAN ESCOBAR IN [place] [facility] [id number] : 89 AGE: SEX: F ORDERED BY: ANDRY RUEDA SOURCE: VAGINAL COLLECTED: 09/17/21 11:29 ANTIBIOTICS AT LINDA.: RECEIVED : 09/17/21 22:38 SITE: VAGINAL R E S U L T S GROUP B STREP SCREEN FINAL 09/19/21 12:47 NEGATIVE FOR GROUP B BETA STREP. Normal [facility] Comment on above: Performed By: #### G BSCR #### [facility] [address] [place] [id number] Laboratory - Microbiology an d Antimicrobial susceptibilityon 09-17-2021 Bacteria identified Aer cx Nom (Genital specimen) [facility] [employer] Work Phone: No Panel Informationon 09-17 Normal [place] [address] [employer] Work Phone: IO Wet Mounton 08-27-2021 IO Wet Mount Negative [facility] [employer] Work Phone: No Panel Informationon 08-05 Normal [place] [address] [employer] Work Phone: Glucose, 1 Hour Screen, Preg nancyon 07-14-2021 Glucose 1 Hr post 50 g glucose PO [Mass/Vol] 132 mg/dL <135 [place] [address] [employer] Work Phone: Comment on above: Diagnostic value wit h glucose loading dose of 50 g. Reference values from [place] [employer]. Diabetes Care 2015;38(Suppl.1):S8-S16 Laboratory - Blood bankon 02 -09-2022 Blood group antibody screen Ql Canceled [facility] [address] Work Phone: Blood group antibody screen Ql Negative [employer] Work Phone: Laboratory - Hematology and Cell countson 07-14-2021 Erythrocyte distribution width (RBC) [Ratio] 13.9 % See Below [employer] Work Phone: Comment on above: Reference Range: 11. 5 - 14.5 Hematocrit (Bld) [Volume fraction] 35.7 % below low threshold See Below [employer] Work Phone: Comment on above: Reference Range: 36. 0 - 46.0 Hemoglobin (Bld) [Mass/Vol] 12.3 g/dL See Below [employer] Phone: Comment on above: Reference Range: 12. 0 - 16.0 MCHC (RBC) [Mass/Vol] 34.5 g/dL See Below [facility] Work Phone: Comment on above: Reference Range: 32. 0 - 36.0 MCV (RBC) [Entitic vol] 93 fL 80 - 100 [employer] Work Phone: Platelets (Bld) [#/Vol] 260 10*3/uL 150 - 450 [employer] Work Phone: RBC (Bld) [#/Vol] 3.83 {x10E12/L} below low threshold See Below [employer] Work Phone: Comment on above: Reference Range: 4.0 0 - 5.20 WBC (Bld) [#/Vol] 10.7 10*3/uL 4.4 - 11.3 [employer] Work Phone: No Panel Informationon 07-14 NONE [employer] Work Phone: Rhogamon 07-14-2021 Rhogam ORDER RECD [employer] Phone: Rhogam Canceled [facility] Work Phone: RAPID TOX SCREEN WITH RELEX TO DRUGMCon 06-23-2021 Amphetamine (U) [Mass/Vol] Negative NEGATIVE NG/ML [facility] Comment on above: <500 ng/ml CUTOFF Barbiturates Screen Ql (U) Negative NEGATIVE NG/ML [facility] Comment on above: <200 ng/ml CUTOFF Benzodiazepines Ql (U) Negative NEGAT JESUS NG/ML [facility] Comment on above: <150 ng/ml CUTOFF Benzoylecgonine Ql (U) Negative NEGAT JESUS NG/ML [facility] Comment on above: <150 ng/ml CUTOFF Buprenorphine Ql (U) Negative NEGATIV E NG/ML [facility] Comment on above: <10 ng/ml CUTOFF Testing performed at [place], [place] [address] Cannabinoids Screen Ql (U) Negative NEGATIVE NG/ML [facility] Comment on above: <50 ng/ml CUTOFF Methadone Screen Ql (U) Negative NEGATIVE NG/ML [facility] Comment on above: <200 ng/ml CUTOFF Methamphetamine (U) [Mass/Vol] Negative NEGATIVE NG/ML [facility] Comment on above: <500 ng/ml CUTOFF Opiates Screen Ql (U) Negative NEGATI VE NG/ML [facility] Comment on above: <100 ng/ml CUTOFF oxyCODONE Ql (U) Negative NEGATIVE NG/ML [facility] Comment on above: <100 ng/ml CUTOFF Phencyclidine Screen method >25 ng/mL Ql (U) Negative NEGATIVE NG/ML [facility] Comment on above: <25 ng/ml CUTOFF Propoxyphene+Norpropox yphene Screen Ql (U) Negative NEGATIVE NG/ML [facility] Comment on above: <300 ng/ml CUTOFF Tricyclic antidepressants Screen Ql (U) Negative NEGATIVE NG/ML [facility] Comment on above: <300 ng/ml CUTOFF [facility] URINALYSIS, MACROon 06-23-19 22 Bilirubin Ql (U) Negative NEGATIVE [facility] Clarity (U) CLEAR CLEAR [facility] Color (U) YELLOW YELLOW [facility] Glucose Test strip (U) [Mass/Vol] Negative NEGATIVE mg/dl [facility] Hemoglobin Ql (U) Negative NEGATIVE [facility] Ketones (U) [Mass/Vol] Negative NEGAT JESUS mg/dl [facility] Leukocyte esterase Test strip Ql (U) Negative NEGATIVE [facility] Comment on above: Testing performed at [place], [place] [address] Nitrite Ql (U) Negative NEGATIVE [facility] pH (U) 6.0 [pH] [facility] Protein Ql (U) Negative NEGATIVE mg/dl [facility] Specific gravity (U) [Rel density] 1.025 [facility] Urobilinogen (U) [Mass/Vol] 0.2 mg/dL [facility] HOLTER MONITOR- EXTENDED (3 [...] AV block No significant bradycardia episodes Normal [facility] Ferritinon 05-17-2021 Ferritin [Mass/Vol] 18 ng/mL 13 - 150 ng/mL [facility] Iron and Iron binding capaci ty panelon 05-17-2021 Iron [Mass/Vol] 123 ug/dL [facility] Iron binding capacity [Mass/Vol] 368 [facility] Iron saturation [Mass fraction] 33 % 20 - 50 % [facility] No Panel Informationon 05-17 Interpretation and review of laboratory results Normal [facility] CTPCRon 02-14-2021 C. trachomatis Interp Normal See CT Interp N [facility] ([place]) Comment on above: Result Comment: C. t rachomatis DNA not detected. Specimen is presumptive negative for C. trachomatis. A negative result does not preclude C. trachomatis infection because results depend on adequate specimen collection, absence of inhibitors, and sufficient DNA to be detected. See CT Interp N Performed By: #### C TPCR, NGPCR1 #### [address] [address] C.trachomatis PCR Negative Normal Negative [facility] ([place]) Comment on above: Result Comment: Dias sport tube received with two swabs. Review collection procedure. Inappropriate collection may cause aberrant results. Transport tube received with two swabs. Review collection procedure. Inappropriate collection may cause aberrant results. Molecular (PCR) assay performed on the Kel[employer] Irma 4800 system. Performed By: #### C TPCR, NGPCR1 #### [address] [address] Chlam Source Vaginal Normal [facility] ([place]) Comment on above: Performed By: #### C TPCR, NGPCR1 #### [address] [address] [id number] 02-14-2021 GC PCR Source Vaginal Normal [facility] ([place]) Comment on above: Performed By: #### U A, PREGU #### [address] [address] N. gonorrhoeae (PCR) Negative Normal Negative [facility] ([place]) Comment on above: Result Comment: Dias sport tube received with two swabs. Review collection procedure. Inappropriate collection may cause aberrant results. Transport tube received with two swabs. Review collection procedure. Inappropriate collection may cause aberrant results. Molecular (PCR) assay performed on the [employer] Irma 4800 System. Performed By: #### U A, PREGU #### [address] [address] N. gonorrhoeae Interp Normal See NG Interp N [facility] ([place]) Comment on above: Result Comment: N. g onorrhoeae DNA not detected. Specimen is presumptive negative for N. gonorrhoeae. A negative result does not preclude Neisseria gonorrhoeae infection because results depend on adequate specimen collection, absence of inhibitors, and sufficient DNA to be detected. See NG Interp N Performed By: #### U A, PREGU #### [address] [address] .Auto Diffon 02-12-2021 Basophil, Absolute 0.00 10 3/mcL Normal 0.00-0.19 [facility] ([place]) Comment on above: Performed By: #### B MP, GFR #### [place] [address] #### CBC, ADIFF, ANEU, HCGQ, ABOG #### [address] [address] Basophils/100 WBC (Bld) 0.4 % Normal 0.0-2.5 [facility] ([place]) Comment on above: Performed By: #### B MP, GFR #### [place] [address] #### CBC, ADIFF, ANEU, HCGQ, ABOG #### [address] [address] Eosinophil, Absolute 0.00 10 3/mcL Normal 0.00-0.40 A [facility] ([place]) Comment on above: Performed By: #### B MP, GFR #### [place] [address] #### CBC, ADIFF, ANEU, HCGQ, ABOG #### [address] [address] Eosinophils/100 WBC (Bld) 0.1 % Normal 0.0-7.0 [facility] ([place]) Comment on above: Performed By: #### B MP, GFR #### [place] [address] #### CBC, ADIFF, ANEU, HCGQ, ABOG #### [address] [address] Lymphocyte, Absolute 1.40 10 3/mcL Normal 0.77-3.85 A [facility] ([place]) Comment on above: Performed By: #### B MP, GFR #### [place] [address] #### CBC, ADIFF, ANEU, HCGQ, ABOG #### [address] [address] Lymphocytes/100 WBC (Bld) 29.2 % Normal 10.0-50.0 [facility] ([place]) Comment on above: Performed By: #### B MP, GFR #### [place] [address] #### CBC, ADIFF, ANEU, HCGQ, ABOG #### [address] [address] Monocyte, Absolute 0.30 10 3/mcL Normal 0.15-1.00 [facility] ([place]) Comment on above: Performed By: #### B MP, GFR #### [place] [address] #### CBC, ADIFF, ANEU, HCGQ, ABOG #### [address] [address] Monocytes/100 WBC (Bld) 7.2 % Normal 1.7-13.0 [facility] ([place]) Comment on above: Performed By: #### B MP, GFR #### [place] [address] #### CBC, ADIFF, ANEU, HCGQ, ABOG #### [address] [address] Neutrophils/100 WBC (Bld) 63.1 % Normal 37.0-80.0 [facility] ([place]) Comment on above: Performed By: #### B MP, GFR #### [place] [address] #### CBC, ADIFF, ANEU, HCGQ, ABOG #### [address] [address] .GFRon 02-12-2021 GFR 96 ml/min/1.73sqm Normal [facility] ([place]) Comment on above: Result Comment: GFR Population [...] Performed By: #### B MP, GFR #### [place] [address] #### CBC, ADIFF, ANEU, HCGQ, ABOG #### [address] [address] GFR Non- 80 ml/min/1.73sqm Normal [facility] ([place]) Comment on above: Result Comment: GFR Population [...] Performed By: #### B MP, GFR #### [place] [address] #### CBC, ADIFF, ANEU, HCGQ, ABOG #### [address] [address] .NEUABSon 02-12-2021 Neutrophil, Absolute 3.00 10 3/mcL Normal 2.85-6.16 A [facility] ([place]) Comment on above: Performed By: #### B MP, GFR #### [place] [address] #### CBC, ADIFF, ANEU, HCGQ, ABOG #### [address] [address] BMPon 02-12-2021 BUN/Creatinine Ratio 14 ratio Normal 7-27 [facility] ([place]) Comment on above: Performed By: #### B MP, GFR #### [place] [address] #### CBC, ADIFF, ANEU, HCGQ, ABOG #### [address] [address] Calcium [Mass/Vol] 8.4 mg/dL Normal 8.4-10.2 [facility] ([place]) Comment on above: Performed By: #### B MP, GFR #### [place] [address] #### CBC, ADIFF, ANEU, HCGQ, ABOG #### [address] [address] Chloride [Moles/Vol] 104 mmol/L Normal 98-107 [facility] ([place]) Comment on above: Performed By: #### B MP, GFR #### [place] [address] #### CBC, ADIFF, ANEU, HCGQ, ABOG #### [address] [address] CO2 [Moles/Vol] 26 mmol/L Normal 22-29 [facility] ([place]) Comment on above: Performed By: #### B MP, GFR #### [place] [address] #### CBC, ADIFF, ANEU, HCGQ, ABOG #### [address] [address] Creatinine [Mass/Vol] 0.84 mg/dL Normal 0.55-1.02 [facility] ([place]) Comment on above: Performed By: #### B MP, GFR #### [place] [address] #### CBC, ADIFF, ANEU, HCGQ, ABOG #### [address] [address] Electrolyte Balance 11.0 mEq/L Normal [facility] ([place]) Comment on above: Performed By: #### B MP, GFR #### [place] [address] #### CBC, ADIFF, ANEU, HCGQ, ABOG #### [address] [address] Glucose [Mass/Vol] 151 mg/dL High 70-105 [facility] ([place]) Comment on above: Performed By: #### B MP, GFR #### [address] [address] #### CBC, ADIFF, ANEU, HCGQ, ABOG #### [address] [address] Potassium [Moles/Vol] 3.7 mmol/L Normal 3.5-5.1 [facility] ([place]) Comment on above: Performed By: #### B MP, GFR #### [place] [address] #### CBC, ADIFF, ANEU, HCGQ, ABOG #### [address] [address] Sodium [Moles/Vol] 141 mmol/L Normal 136-145 [facility] ([place]) Comment on above: Performed By: #### B MP, GFR #### [place] [address] #### CBC, ADIFF, ANEU, HCGQ, ABOG #### [address] [address] Urea nitrogen [Mass/Vol] 12 mg/dL Normal 7-18 [facility] ([place]) Comment on above: Performed By: #### B MP, GFR #### [place] [address] #### CBC, ADIFF, ANEU, HCGQ, ABOG #### [address] [address] CBCon 02-12-2021 Erythrocyte distribution width (RBC) [Ratio] 13.1 % Normal 11.5-14.5 [facility] ([place] Comment on above: Performed By: #### B MP, GFR #### [place] [address] #### CBC, ADIFF, ANEU, HCGQ, ABOG #### [address] [address] Hematocrit (Bld) [Volume fraction] 42.0 % Normal 37.0-47.0 [facility] ([place] Comment on above: Performed By: #### B MP, GFR #### [place] [address] #### CBC, ADIFF, ANEU, HCGQ, ABOG #### [place] [address] Hgb 14.3 G/dL Normal 12.0-16.0 [facility] ([place] Comment on above: Performed By: #### B MP, GFR #### [place] [address] #### CBC, ADIFF, ANEU, HCGQ, ABOG #### [address] [address] MCH (RBC) [Entitic mass] 31.5 pg High 27.0-31.2 [facility] ([place] Comment on above: Performed By: #### B MP, GFR #### [place] [address] #### CBC, ADIFF, ANEU, HCGQ, ABOG #### [place] [address] MCHC 34.1 G/dL Normal 33.0-37.0 [facility] ([place] Comment on above: Performed By: #### B MP, GFR #### [place] [address] #### CBC, ADIFF, ANEU, HCGQ, ABOG #### [address] [address] MCV (RBC) [Entitic vol] 92.3 fL Normal 80.0-94.0 [facility] ([place] Comment on above: Performed By: #### B MP, GFR #### [place] [address] #### CBC, ADIFF, ANEU, HCGQ, ABOG #### [place] [id number] Platelet 199 10 3/mcL Normal 130-400 [facility] ([place] Comment on above: Performed By: #### B MP, GFR #### [place] [address] #### CBC, ADIFF, ANEU, HCGQ, ABOG #### [address] [address] Platelet mean volume (Bld) [Entitic vol] 8.6 fL Normal 7.4-10.4 [facility] ([place] Comment on above: Performed By: #### B MP, GFR #### [place] [address] #### CBC, ADIFF, ANEU, HCGQ, ABOG #### [address] [address] RBC 4.55 10 6/mcL Normal 4.20-5.40 [facility] ([place] Comment on above: Performed By: #### Adria MP, GFR #### [place] [address] #### CBC, ADIFF, ANEU, HCGQ, ABOG #### [address] [address] WBC 4.80 10 3/mcL Normal 4.60-10.80 [facility] ([place] Comment on above: Performed By: #### Adria MP, GFR #### [place] [address] #### CBC, ADIFF, ANEU, HCGQ, ABOG #### [address] [address] Gel ABOon 02-12-2021 ABO/Rh Interp Negative Invalid Interpretation Code [facility] ([place] Comment on above: Performed By: #### B MP, GFR #### [place] [address] #### CBC, ADIFF, ANEU, HCGQ, ABOG #### [address] [address] HCGQon 02-12-2021 hCG, quantitative 5108.5 mIU/mL Normal [facility] ([place]) Comment on above: Result Comment: HCG Quantitative [...] Performed By: #### B MP, GFR #### [place] [address] #### CBC, ADIFF, ANEU, HCGQ, ABOG #### [address] [address] PREGUon 02-12-2021 HCG ( test) Ql (U) Positive Normal [facility] ([place] Comment on above: Performed By: #### U A, PREGU #### [address] [address] test (u) int Detected Invalid Interpretation Code [facility] ([place] Comment on above: Performed By: #### U A, PREGU #### [address] [address] UAon 02-12-2021 Color (U) Yellow Normal [facility] ([place] Comment on above: Performed By: #### U A, PREGU #### [address] [address] Glucose (U) [Mass/Vol] Negative Normal Negative [facility] ([place]) Comment on above: Performed By: #### U A, PREGU #### [address] [address] Ketones Ql (U) 80 mg/dL Abnormal Negative [facility] ([place] Comment on above: Performed By: #### U A, PREGU #### [address] [address] UA Appear Clear Normal Clear [facility] ([place] Comment on above: Performed By: #### U A, PREGU #### [place] [address] UA Bili Small Abnormal Negative [facility] ([place] Comment on above: Performed By: #### U A, PREGU #### [address] [address] UA Blood Negative Normal Negative [facility] ([place] Comment on above: Performed By: #### U A, PREGU #### [place] [address] UA Leuk Est Negative Normal Negative [facility] ([place] Comment on above: Performed By: #### U A, PREGU #### [address] [address] UA Nitrite Negative Normal Negative [facility] ([place] Comment on above: Performed By: #### U A, PREGU #### [address] [address] UA pH 6.0 Normal 5.0 - 8.0 [facility] ([place] Comment on above: Performed By: #### U A, PREGU #### [place] [address] UA Protein Trace Normal Negative [facility] ([place] Comment on above: Performed By: #### U A, PREGU #### [place] [address] UA Spec Grav >=1.030 Abnormal 1.015-1.025 [facility] ([place] Comment on above: Performed By: #### U A, PREGU #### [place] [address] UA Specimen Type Clean Catch Normal [facility] ([place] Comment on above: Performed By: #### U A, PREGU #### [address] [address] UA Urobilinogen 0.2 E.U./dL Normal 0.2-1.0 [facility] ([place] Comment on above: Performed By: #### U A, PREGU #### [address] [address] CBC and Differentialon 10-17 Abs Baso 0.04 k/uL Normal <0.11 [facility] Comment on above: Performed By: #### C BCDIF, BETAMM, CMP, LIPA #### [facility] [address] [place] [address] Abs Woodward 0.64 k/uL Normal <0.87 [facility] Comment on above: Performed By: #### C BCDIF, BETAMM, CMP, LIPA #### [facility] [address] [place] [address] Abs Neut 4.48 k/uL Normal 1.45-7.50 [facility] Comment on above: Performed By: #### C BCDIF, BETAMM, CMP, LIPA #### [facility] [address] [place] [address] Basophils/100 WBC (Bld) 0.5 % Normal [facility] Comment on above: Performed By: #### C BCDIF, BETAMM, CMP, LIPA #### [facility] [address] [place] [address] Eosinophils #/vol (Bld) 0.26 10*3/uL Normal <0.46 [facility] Comment on above: Performed By: #### C BCDIF, BETAMM, CMP, LIPA #### [facility] [address] [place], [place] [id number] Eosinophils/100 WBC (Bld) 3.4 % Normal [facility] Comment on above: Performed By: #### C BCDIF, BETAMM, CMP, LIPA #### [facility] [address] [place] [address] Erythrocyte distribution width Ratio (RBC) 13.1 % Normal 11.5-15.0 [facility] Comment on above: Performed By: #### C BCDIF, BETAMM, CMP, LIPA #### [facility] [address] [place] [address] Hematocrit Volume Fraction (Bld) 44.4 % Normal 36.0-46.0 [facility] Comment on above: Performed By: #### C BCDIF, BETAMM, CMP, LIPA #### [facility] [address] [place] [address] Hemoglobin mass conc (Bld) 14.8 g/dL Normal 11.5-15.5 [facility] Comment on above: Performed By: #### C BCDIF, BETAMM, CMP, LIPA #### [facility] [address] [place] [address] Lymphocytes #/vol (Bld) 2.28 10*3/uL Normal 1.00-4.00 [facility] Comment on above: Performed By: #### C BCDIF, BETAMM, CMP, LIPA #### [facility] [address] [place] [address] Lymphocytes/100 WBC (Bld) 29.6 % Normal [facility] Comment on above: Performed By: #### C BCDIF, BETAMM, CMP, LIPA #### [facility] [address] [place] [address] MCH Entitic mass (RBC) 30.4 pG Normal 26.0-34.0 [facility] Comment on above: Performed By: #### C BCDIF, BETAMM, CMP, LIPA #### [facility] [address] [place] [address] MCHC mass conc (RBC) 33.3 g/dL Normal 30.5-36.0 [facility] Comment on above: Performed By: #### C BCDIF, BETAMM, CMP, LIPA #### [facility] [address] [place] [address] MCV Entitic volume (RBC) 91.2 fL Normal 80.0-100.0 [facility] Comment on above: Performed By: #### C BCDIF, BETAMM, CMP, LIPA #### [facility] [address] [place] [address] Monocytes/100 WBC (Bld) 8.3 % Normal [facility] Comment on above: Performed By: #### C BCDIF, BETAMM, CMP, LIPA #### [facility] [address] [place] [address] Neutrophils/100 WBC (Bld) 58.2 % Normal [facility] Comment on above: Performed By: #### C BCDIF, BETAMM, CMP, LIPA #### [facility] [address] [place] [address] Platelet mean volume Entitic volume (Bld) 10.7 fL Normal 9.0-12.7 [facility] Comment on above: Performed By: #### C BCDIF, BETAMM, CMP, LIPA #### [facility] [address] [place] [address] Platelets #/vol (Bld) 283 10*3/uL Normal 150-400 [facility] Comment on above: Performed By: #### C BCDIF, BETAMM, CMP, LIPA #### [facility] [address] [place] [address] RBC #/vol (Bld) 4.87 10*6/uL Normal 3.90-5.20 [facility] Comment on above: Performed By: #### C BCDIF, BETAMM, CMP, LIPA #### [facility] [address] [place] [address] WBC #/vol (Bld) 7.70 10*3/uL Normal 3.70-11.00 [facility] Comment on above: Performed By: #### C BCDIF, BETAMM, CMP, LIPA #### [facility] [address] [place] [address] CT ABD/PEL W IVCONon 05-15-[address] ABD/PEL W IVCON * * *Final Report* * * DATE OF EXAM: Oct 17 2018 6:20PM [facility] [place]30 - CT ABD/PEL W IVCON / [...] or pelvis. 2. Nonobstructing renal calculi bilaterally. Service Secretary: TONYA Transcribe Date/Time: Oct 17 2018 6:22P Dictated by : AG ALLAN MD This examination was interpreted and the report reviewed and electronically signed by: AG ALLAN MD on Oct 17 2018 6:35PM EST [id number] Normal [facility] Comp Metabolic Panelon 10-17 Albumin mass conc 4.0 g/dL Normal 3.9-4.9 [facility] Comment on above: Performed By: #### C BCDIF, BETAMM, CMP, LIPA #### [facility] [address] [place] [address] ALP enzyme act/vol 66 U/L Normal 34-123 [facility] Comment on above: Performed By: #### C BCDIF, BETAMM, CMP, LIPA #### [facility] [address] [place] [address] ALT enzyme act/vol 11 U/L Normal 7-38 [facility] Comment on above: Performed By: #### C BCDIF, BETAMM, CMP, LIPA #### [facility] [address] [place] [address] Anion gap molar conc 10 mmol/L Normal 9-18 [facility] Comment on above: Performed By: #### C BCDIF, BETAMM, CMP, LIPA #### [facility] [address] [place] [address] AST enzyme act/vol 14 U/L Normal 13-35 [facility] Comment on above: Performed By: #### C BCDIF, BETAMM, CMP, LIPA #### [facility] [address] [place] [address] Bilirubin mass conc 0.5 mg/dL Normal 0.2-1.[address] [facility] Comment on above: Performed By: #### C BCDIF, BETAMM, CMP, LIPA #### [facility] [address] [place] [address] Calcium mass conc 8.8 mg/dL Normal 8.5-10.2 [facility] Comment on above: Performed By: #### C BCDIF, BETAMM, CMP, LIPA #### [facility] [address] [place] [address] Chloride molar conc 104 mmol/L Normal 97-[address] [facility] Comment on above: Performed By: #### C BCDIF, BETAMM, CMP, LIPA #### [facility] [address] [place] [address] CO2 molar conc 22 mmol/L Normal 22-30 [facility] Comment on above: Performed By: #### C BCDIF, BETAMM, CMP, LIPA #### [facility] [address] [place] [address] Creatinine mass conc 0.83 mg/dL Normal 0.58-0.96 [facility] Comment on above: Performed By: #### C BCDIF, BETAMM, CMP, LIPA #### [facility] [address] [place] [address] eGFR- Amer. >60 Normal [facility] Comment on above: Performed By: #### C BCDIF, BETAMM, CMP, LIPA #### [facility] [address] [facility] [phone] GFR/1.73 sq M predicted among non-blacks MDRD vol rate/area (S/P/Bld) mL/min/{1.73_m2} Normal [facility] Comment on above: Result Comment: eGFR (Estimated [...] #### C BCDIF, BETAMM, CMP, LIPA #### [facility] [address] [facility] [phone] Glucose mass conc 99 mg/dL Normal 74-99 [facility] Comment on above: Result Comment: The [place] [employer] (ADA) provides guidance for cutoff [...] Standards of Medical Care in Diabetes 2016, [place] [employer]. Diabetes Care. 2016.39(Suppl 1). Performed By: #### C BCDIF, BETAMM, CMP, LIPA #### [facility] [address] [facility] [phone] Potassium molar conc 3.9 mmol/L Normal 3.7-5.1 [facility] Comment on above: Performed By: #### C BCDIF, BETAMM, CMP, LIPA #### [facility] [address] [facility] [phone] Protein mass conc 7.5 g/dL Normal 6.3-8.0 [facility] Comment on above: Performed By: #### C BCDIF, BETAMM, CMP, LIPA #### [facility] [address] [facility] [phone] Sodium molar conc 136 mmol/L Normal 136-144 [facility] Comment on above: Performed By: #### C BCDIF, BETAMM, CMP, LIPA #### [facility] [address] [facility] [phone] Urea nitrogen mass conc 10 mg/dL Normal 7-21 [facility] Comment on above: Performed By: #### C BCDIF, BETAMM, CMP, LIPA #### [facility] [address] [facility] [phone] ED NOTEon 10-17-2018 ED NOTE HNO ID: [id number] Author: Elba RecinosRnTigre Nguyen RN Service: ? Author Type: Registered Nurse Type: ED Notes Filed: 10/17/2018 7:10 PM Note Text: Pt was ambulatory with her discharge [facility] ED NOTE HNO ID: [id number] Author: Elba Nguyen RN Service: ? Author Type: Registered Nurse Type: ED Notes Filed: 10/17/2018 7:08 PM Note Text: Pt was discharged home and will follow up with her family medical dr as per needed [facility] ED NOTE HNO ID: [id number] Author: Elba Nguyen RN Service: ? Author Type: Registered Nurse Type: ED Notes Filed: 10/17/2018 7:00 PM Note Text: viktor pa has rounded [facility] ED NOTE HNO ID: [id number] Author: Elba Nguyen RN Service: ? Author Type: Registered Nurse Type: ED Notes Filed: 10/17/2018 5:56 PM Note Text: Pt report was received Pt is in a position of comfort [facility] ED NOTE HNO ID: [id number] Author: Charleen RecinosRnTigre Clifton RN Service: ? 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 2. Nonobstructing renal calculi bilaterally. Service Secretary: [facility] Transcribe Date/Time: Oct 17 2018 6:22P Dictated [...] Abs Lymph 2.28 1.00 - 4.00 k/uL [place]% 8.3 % Abs [place] 0.64 <0.87 k/uL Eosin% 3.4 % Abs [...] Negative Negative Ketones, Urine Negative Negative Specific [place], Ur 1.015 1.001 - 1.029 Hemoglobin/Blood,Ur Negative [...] in writing to patient (patient guardian / advertising representative), who verbalized understanding. This note was partially generated using [employer] voice recognition system, and there may be some incorrect words, spellings, and punctuation that were not noted in checking the note before saving SIGNATURE: ADIA Workman ([place]) 10/17/18 1856 Normal [facility] Lipaseon 10-17-2018 Lipase enzyme act/vol 35 U/L Normal 16-61 [facility] Comment on above: Performed By: #### C BCDIF, BETAMM, CMP, LIPA ####[facility] [id number] [place] [phone] Serum Beta HCG [facility]/// ED/SL/LOon 10-17-2018 HCG.beta subunit Qn Negative Normal Negative [facility] Comment on above: Result Comment: Fals e positives and false negatives are rare but have been described. Clinical correlation of the findings is recommended. Performed By: #### C BCDIF, BETAMM, CMP, LIPA #### [facility] [address] [facility] [phone] Urinalysison 10-17-2018 Bilirubin, Urine Negative Normal Negative [facility] Comment on above: Performed By: #### U A ####[facility] [address] [phone] Clarity Nom (U) Clear Normal Clear [facility] Comment on above: Performed By: #### U A ####[facility] [address] [phone] Color Nom (U) Yellow Normal Yellow [facility] Comment on above: Performed By: #### U A ####[facility] [id number] [place] [address] Glucose Ql (U) Negative Normal Negative [facility] Comment on above: Performed By: #### U A ####[facility] [address] [place] [address] Hemoglobin/Blood,Ur Negative Normal Negative [facility] Comment on above: Performed By: #### U A ####[facility] [address] [place] [address] Ketones Ql (U) Negative Normal Negative [facility] Comment on above: Performed By: #### U A ####[facility] [id number] [place] [address] Leukest Negative Normal Negative [facility] Comment on above: Performed By: #### U A ####[facility] [address] [place] [address] Nitrite Ql (U) Negative Normal Negative [facility] Comment on above: Performed By: #### U A ####[facility] [address] [place] [address] pH (Bld) 6.5 Normal 5.0-8.0 [facility] Comment on above: Performed By: #### U A ####[facility] [address] [place] [address] Protein mass conc (U) Negative Normal Negative [facility] Comment on above: Performed By: #### U A ####[facility] [address] [place] [address] Specific [place], Ur 1.015 Normal 1.001-1.029 [facility] Comment on above: Performed By: #### U A ####[facility] [address] [place] [address] Urobilinogen Qn (U) 0.2 Normal 0.2-1.[address] [facility] Comment on above: Performed By: #### U A ####[facility] [address] [place] [address] Basic Metabolic Panelon 04- Calcium mass conc 9.5 mg/dL Normal 8.4-10.4 [facility] Comment on above: Performed By: #### H EMDF, BMP3 #### [facility] [address] [place] [address] Glucose mass conc 92 mg/dL Normal 70-100 [facility] Comment on above: Performed By: #### H EMDF, BMP3 #### [facility] [address] [place] [address] Urea nitrogen mass conc 13 mg/dL Normal 7-20 [facility] Comment on above: Performed By: #### H EMDF, BMP3 #### [facility] [address] [place] [address] Anion gap molar conc 8 Normal [facility] Comment on above: Performed By: #### H EMDF, BMP3 #### [facility] [address] [place] [address] CO2 molar conc 25 mmol/L Normal 22-30 [facility] Comment on above: Performed By: #### H EMDF, BMP3 #### [facility] [address] [place] [address] Creatinine mass conc 0.74 mg/dL Normal 0.52-1.25 [facility] Comment on above: Performed By: #### H EMDF, BMP3 #### [facility] [address] [place] [address] GFR/1.73 sq M predicted among blacks MDRD vol rate/area (S/P/Bld) mL/min/{1.73_m2} Normal >60 [facility] Comment on above: Performed By: #### H EMDF, BMP3 #### [facility] [address] [place] [address] GFR/1.73 sq M predicted among non-blacks MDRD vol rate/area (S/P/Bld) mL/min/{1.73_m2} Normal >60 [facility] Comment on above: Result Comment: Sour ce- MDRD equation with creatinine calibration to IDMS(NKDEP) eGFR not recommended for drug dose adjustment Performed By: #### H EMDF, BMP3 #### [facility] [address] [place] [address] Potassium molar conc 3.6 mmol/L Normal 3.5-5.1 [facility] Comment on above: Performed By: #### H EMDF, BMP3 #### [facility] [address] [place] [address] Chloride molar conc 106 mmol/L Normal 98-107 [facility] Comment on above: Performed By: #### H EMDF, BMP3 #### [facility] [address] [place] [address] Sodium molar conc 139 mmol/L Normal 135-145 [facility] Comment on above: Performed By: #### H EMDF, BMP3 #### [facility] [address] [place] [address] HCG,Urine Qualon 09-18-2018 HCG.beta subunit ( test) Ql (U) Negative Normal Negative [facility] Comment on above: Result Comment: Preg fallon is the most common reason for HCG in urine, although choriocarcinoma, hydatidiform mole, and certain nontropho- blastic malignancies also result in detectable urinary HCG levels. Sensitivity = 20mIU/mL. Performed By: #### H CGUR, UAMAC, UAMIC #### [facility] [address] [place] [address] Hemogram w/ Autodiffon 09-18 Abs Baso Cnt 0.0 10*3/uL Normal 0.0-0.2 [facility] Comment on above: Performed By: #### H EMDF, BMP3 #### [facility] [address] [place] [address] Abs Neutrophile Cnt 4.9 10*3/uL Normal 1.8-7.0 [facility] Comment on above: Performed By: #### H EMDF, BMP3 #### [facility] [address] [place] [address] Basophils/100 WBC (Bld) 0.6 % Normal 0.0-2.0 [facility] Comment on above: Performed By: #### H EMDF, BMP3 #### [facility] [address] [place] [address] Eosinophils #/vol (Bld) 0.1 10*3/uL Normal 0.0-0.5 [facility] Comment on above: Performed By: #### H EMDF, BMP3 #### [facility] [address] [place] [address] Eosinophils/100 WBC (Bld) 1.4 % Normal 1.0-6.0 [facility] Comment on above: Performed By: #### H EMDF, BMP3 #### [facility] [address] [place] [address] Erythrocyte distribution width Ratio (RBC) 13.5 % Normal 11.5-14.5 [facility] Comment on above: Performed By: #### H EMDF, BMP3 #### [facility] [address] [place] [address] Granulocytes/100 WBC (Bld) 63.0 % Normal 40.0-80.0 [facility] Comment on above: Performed By: #### H EMDF, BMP3 #### [facility] [address] [place] [address] Hematocrit Volume Fraction (Bld) 39.8 % Normal 35.0-47.0 [facility] Comment on above: Performed By: #### H EMDF, BMP3 #### [facility] [address] [place] [address] Hemoglobin mass conc (Bld) 13.6 g/dL Normal 11.7-16.0 [facility] Comment on above: Performed By: #### H EMDF, BMP3 #### [facility] [address] [place] [address] Lymphocytes #/vol (Bld) 2.2 10*3/uL Normal 1.0-4.3 [facility] Comment on above: Performed By: #### H EMDF, BMP3 #### [facility] [address] [place] [address] Lymphocytes/100 WBC (Bld) 27.6 % Normal 20.0-40.0 [facility] Comment on above: Performed By: #### H EMDF, BMP3 #### [facility] [address] [place] [address] MCH Entitic mass (RBC) 30.9 pg Normal 26.0-34.0 [facility] Comment on above: Performed By: #### H EMDF, BMP3 #### [facility] [address] [place] [address] MCHC mass conc (RBC) 34.3 % Normal 32.0-36.0 [facility] Comment on above: Performed By: #### H EMDF, BMP3 #### [facility] [address] [place] [address] MCV Entitic volume (RBC) 90.0 fL Normal 79.0-98.0 [facility] Comment on above: Performed By: #### H EMDF, BMP3 #### [facility] [address] [place] [address] Monocytes #/vol (Bld) 0.6 10*3/uL Normal 0.0-0.8 [facility] Comment on above: Performed By: #### H EMDF, BMP3 #### [facility] [address] [place] [address] Monocytes/100 WBC (Bld) 7.4 % Normal 2.0-10.0 [facility] Comment on above: Performed By: #### H EMDF, BMP3 #### [facility] [address] [place] [address] Platelet mean volume Entitic volume (Bld) 8.1 fL Normal 7.4-10.4 [facility] Comment on above: Performed By: #### H EMDF, BMP3 #### [facility] [address] [place] [address] Platelets #/vol (Bld) 296 10*3/uL Normal 140-440 [facility] Comment on above: Performed By: #### H EMDF, BMP3 #### [facility] [address] [place] [address] RBC #/vol (Bld) 4.42 10*6/uL Normal 3.80-5.20 [facility] Comment on above: Performed By: #### H EMDF, BMP3 #### [facility] [address] [place] [address] WBC #/vol (Bld) 7.8 10*3/uL Normal 3.6-10.7 [facility] Comment on above: Performed By: #### H EMDF, BMP3 #### [facility] [address] [place] [address] Urinalysis,Macroon 9 Appearance Nom (U) CLEAR Normal Clear [facility] Comment on above: Performed By: #### H EMDF, CMP3, LIPA4 #### [facility] [address] [place] [address] Bilirubin,Ur Positive Normal Negative [facility] Comment on above: Performed By: #### H EMDF, CMP3, LIPA4 #### [facility] [address] [place] [address] Color Nom (U) YELLOW Normal Lt. Yellow [facility] Comment on above: Performed By: #### H EMDF, CMP3, LIPA4 #### [facility] [address] [place] [address] Glucose Ql (U) Negative Normal Negative [facility] Comment on above: Performed By: #### H EMDF, CMP3, LIPA4 #### [facility] [address] [place] [address] Ketone,Urine TRACE Normal Negative [facility] Comment on above: Performed By: #### H EMDF, CMP3, LIPA4 #### [facility] [address] [place] [address] Nitrite Ql (U) Negative Normal Negative [facility] Comment on above: Performed By: #### H EMDF, CMP3, LIPA4 #### [facility] [address] [place] [address] Occult Blood,Ur Negative Normal Negative [facility] Comment on above: Performed By: #### H EMDF, CMP3, LIPA4 #### [facility] [address] [place] [address] pH (U) 6.0 Normal 5.0-8.0 [facility] Comment on above: Performed By: #### H EMDF, CMP3, LIPA4 #### [facility] [address] [place] [address] Protein mass conc (U) TRACE Normal Negative [facility] Comment on above: Performed By: #### H EMDF, CMP3, LIPA4 #### [facility] [address] [place] [address] Specific [place],Urine 1.025 Normal 1.005-1.030 [facility] Comment on above: Performed By: #### H EMDF, CMP3, LIPA4 #### [facility] [address] [place] [address] Urobilinogen Qn (U) 1.0 mg/dL Normal 0-1 [facility] Comment on above: Performed By: #### H EMDF, CMP3, LIPA4 #### [facility] [address] [place] [address] WBC #/vol (Bld) Negative Normal Negative [facility] Comment on above: Performed By: #### H EMDF, CMP3, LIPA4 #### [facility] [address] [place] [address] Urinalysis,Microscopicon Bacteria LM.HPF #/area (Urine sed) Few (1-5) Normal Negative [facility] Comment on above: Performed By: #### H EMDF, CMP3, LIPA4 #### [facility] [address] [place] [address] Cast, Hyaline 3 - 5 Normal 0-1 [facility] Comment on above: Performed By: #### H EMDF, CMP3, LIPA4 #### [facility] [address] [place] [address] Epithelial cells LM.HPF #/area (Urine sed) 0 - 2 Normal 3-5 [facility] Comment on above: Performed By: #### H EMDF, CMP3, LIPA4 #### [facility] [address] [place] [address] Mucous Threads Moderate Normal Negative [facility] Comment on above: Performed By: #### H EMDF, CMP3, LIPA4 #### [facility] [address] [place] [address] RBC LM.HPF #/area (Urine sed) 0 - 2 Normal 0-2 [facility] Comment on above: Performed By: #### H EMDF, CMP3, LIPA4 #### [facility] [address] [place] [address] WBC LM.HPF #/area (Urine sed) 0 - 2 Normal 0-5 [facility] Comment on above: Performed By: #### H EMDF, CMP3, LIPA4 #### [facility] [address] [place] [address] BMPon 09-01-2018 Anion gap molar conc 12 mmol/L 10 - 20 mmol/L [facility] Calcium mass conc 8.3 mg/dL Low 8.4 - 10.2 mg/dL [facility] Chloride molar conc 110 mmol/L High 98 - 108 mmol/L [facility] Creatinine mass conc 1.13 mg/dL High 0.4 - 1 .1 mg/dL [facility] GFR/1.73 sq M predicted among non-blacks MDRD vol rate/area (S/P/Bld) The eGFR should be used for monitoring renal function only and not for medication dosing. [facility] GFR/1.73 sq M.predicted CKD-EPI vol rate/area (S/P/Bld) 66 >=60 mL/min/1.73 m2 [facility] Glucose mass conc 78 mg/dL 65 - 99 mg/dL [facility] HCO3 molar conc 22 mmol/L 21 - 32 mmol/L [facility] Potassium molar conc 3.4 mmol/L Low 3.5 - 5 .1 mmol/L [facility] Sodium molar conc 141 mmol/L 135 - 145 mmol/L [facility] Urea nitrogen mass conc 7 mg/dL Low 8 - 25 mg/dL [facility] Urea nitrogen/Creatinine mass ratio 6.2 mg/mg Low [facility] CBC WITH AUTO DIFFERENTIALon 09-01-2018 Basophils #/vol (Bld) 0.04 10*3/uL [facility] Basophils/100 WBC (Bld) 0.3 % [facility] Eosinophils #/vol (Bld) 0.12 10*3/uL [facility] Eosinophils/100 WBC (Bld) 0.9 % [facility] Erythrocyte distribution width Entitic volume (RBC) 13.3 % 11.6 - 14.8 % [facility] Hematocrit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 Davide Chao Work Phone: 9(380)583-867439 [address] 11-25-2022 09:26-0400 Diastolic blood pressure 65 mm[Hg] Dr. Davide Chao Work Phone: 7(528)351-316033 [place] [address] 11-25-2022 09:26-0400 Systolic blood pressure 98 mm[Hg] Dr. Davide Chao Work Phone: [facility] 11-11-2022 00:19-0400 Body height 167.4 cm Andry Rueda MD Work Phone: [facility] 11-11-2022 00:19-0400 Body mass index (BMI) [Ratio] 27.83 kg/m2 Andry Rueda MD Work Phone: [facility] 11-11-2022 00:19-0400 Body weight 78 kg Andry Rueda MD Work Phone: [facility] 10-28-2022 09:23-0400 Body height 167.[address] Davide Chao Work Phone: [facility] 10-28-2022 09:16-0400 Body mass index (BMI) [Ratio] 27.4 kg/m2 Dr. Davide Chao Work Phone: [facility] 10-28-2022 09:16-0400 Body weight 77.[address] Davide Chao Work Phone: [facility] 10-28-2022 09:16-0400 Diastolic blood pressure 73 mm[Hg] Dr. Davide Chao Work Phone: [facility] 10-28-2022 09:16-0400 Systolic blood pressure 106 mm[Hg] Dr. Davide Chao Work Phone: [facility] 09-28-2022 08:06-0400 Body height 167.[address] Davide Chao Work Phone: [facility] 09-28-2022 08:06-0400 Body mass index (BMI) [Ratio] 26.8 kg/m2 Dr. Davide Chao Work Phone: [facility] 09-28-2022 08:06-0400 Body weight 75.[address] Davide Chao Work Phone: [facility] 09-28-2022 08:06-0400 Diastolic blood pressure 71 mm[Hg] Dr. Davide Chao Work Phone: [facility] 09-28-2022 08:06-0400 Systolic blood pressure 104 mm[Hg] Dr. Davide Chao Work Phone: [facility] 09-11-2022 23:47-0400 Diastolic blood pressure 62 mm[Hg] Davide Chao Other Phone: [facility] 09-11-2022 23:47-0400 Heart rate 85 /min Davide Chao Other Phone: [facility] 09-11-2022 23:47-0400 Respiratory rate 15 /min Davide Chao Other Phone: [facility] 09-11-2022 23:47-0400 SaO2% (BldA) [Mass fraction] 100 % Davide Chao Other Phone: [facility] 09-11-2022 23:47-0400 Systolic blood pressure 95 mm[Hg] Davide Rees Phone: [facility] 09-11-2022 22:56-0400 Body height 167.6 cm Davide Chao Other Phone: [facility] 09-11-2022 22:56-0400 Body weight 72.7 kg Davide Chao Other Phone: [facility] 08-17-2022 13:25-0400 Body height 167.[address] Davide Chao Work Phone: [facility] 08-17-2022 13:24-0400 Body mass index (BMI) [Ratio] 26.4 kg/m2 Dr. Davide Chao Work Phone: [facility] 08-17-2022 13:24-0400 Body weight 74.[address] Davide Chao Work Phone: [facility] 08-17-2022 13:24-0400 Diastolic blood pressure 70 mm[Hg] Dr. Davide Chao Work Phone: [facility] 08-17-2022 13:24-0400 Systolic blood pressure 105 mm[Hg] Dr. Davide Chao Work Phone: [facility] 07-29-2022 15:16-0500 Body height 167.[address] Davide Chao Work Phone: [facility] 07-29-2022 15:16-0500 Body mass index (BMI) [Ratio] 26.9 kg/m2 Dr. Davide Chao Work Phone: [facility] 07-29-2022 15:16-0500 Body weight 75.[address] Davide Chao Work Phone: 4(004)355-127833 [place] [address] 07-29-2022 15:16-0500 Diastolic blood pressure 72 mm[Hg] Dr. Davide Chao Work Phone: [facility] 07-29-2022 15:16-0500 Systolic blood pressure 104 mm[Hg] Dr. Davide Chao Work Phone: [facility] 07-13-2022 23:15-0500 Diastolic blood pressure 71 mm[Hg] Nery Esparza MD Work Phone: [employer] 07-13-2022 23:15-0500 SaO2% (BldA) [Mass fraction] 100 % Nery Esparza MD Work Phone: [employer] 07-13-2022 23:15-0500 Systolic blood pressure 105 mm[Hg] Nery Esparza MD Work Phone: [employer] 07-13-2022 22:57-0500 Body height 167.6 cm Nery Esparza MD Work Phone: [employer] 07-13-2022 22:57-0500 Body mass index (BMI) [Ratio] 27.07 kg/m2 Nery Esparza MD Work Phone: [employer] 07-13-2022 22:57-0500 Body temperature 98.2 [degF] Nery Esparza MD Work Phone: [employer] 07-13-2022 22:57-0500 Body weight 76.07 kg Nery Esparza MD Work Phone: [employer] 07-13-2022 22:57-0500 Heart rate 96 /min Nery Esparza MD Work Phone: [employer] 07-13-2022 22:57-0500 Respiratory rate 18 /min Nery Esparza MD Work Phone: [employer] 11-21-2021 09:11-0400 Body mass index (BMI) [Ratio] 27.12 kg/m2 M[facility]ya Dewitt CNP Work Phone: [facility] 11-21-2021 09:11-0400 Body temperature 98.4 [degF] Mireya Dewitt CNP Work Phone: [facility] 11-21-2021 09:11-0400 Body weight 76.2 kg Mireya Dewitt CNP Work Phone: [facility] 11-21-2021 09:11-0400 Diastolic blood pressure 70 mm[Hg] Mireya Dewitt CNP Work Phone: [facility] 11-21-2021 09:11-0400 Heart rate 86 /min Mireya Dewitt CNP Work Phone: [facility] 11-21-2021 09:11-0400 Respiratory rate 14 /min Mireya Dewitt CNP Work Phone: [facility] 11-21-2021 09:11-0400 SaO2% (BldA) [Mass fraction] 97 % Mireya Dewitt CNP Work Phone: [facility] 11-21-2021 09:11-0400 Systolic blood pressure 99 mm[Hg] Mireya Dewitt CNP Work Phone: [facility] 11-16-2021 13:58-0400 Body height 167.64 cm Davide Oglesby [employer] Work Phone: [place] [employer] Work Phone: 11-16-2021 13:58-0400 Body mass index (BMI) [Ratio] 28.43 kg/m2 Davide Oglesby [employer] Work Phone: [employer] Work Phone: 11-16-2021 13:58-0400 Body surface area Derived from formula 1.9 m2 Davide Oglesby [employer] Work Phone: [employer] Work Phone: 11-16-2021 13:58-0400 Body weight 79.9 kg Davide Oglesby [employer] Work Phone: [place] [employer] Work Phone: 11-16-2021 13:58-0400 Diastolic blood pressure 64 mm[Hg] Davide Zac[employer] Work Phone: [place] [employer] Work Phone: 11-16-2021 13:58-0400 Systolic blood pressure 110 mm[Hg] Davide Chao Work Phone: [employer] Work Phone: 10-14-2021 15:28-0400 Body temperature 97.88 [degF] Davide Chao Other Phone: [facility] 10-14-2021 15:28-0400 Diastolic blood pressure 71 mm[Hg] Davide Chao Other Phone: [facility] 10-14-2021 15:28-0400 Heart rate 79 /min Davide Chao Other Phone: [facility] 10-14-2021 15:28-0400 Respiratory rate 16 /min Davide Chao Other Phone: [facility] 10-14-2021 15:28-0400 SaO2% (BldA) [Mass fraction] 99 % Davide Chao Other Phone: [facility] 10-14-2021 15:28-0400 Systolic blood pressure 118 mm[Hg] Davide Chao Other Phone: [facility] 10-08-2021 10:24-0400 Body height 167.64 cm Davide Chao Work Phone: [employer] Work Phone: 10-08-2021 10:24-0400 Body mass index (BMI) [Ratio] 31.24 kg/m2 Davide [employer] Work Phone: [employer] Work Phone: 10-08-2021 10:24-0400 Body surface area Derived from formula 1.97 m2 Davide [employer] Work Phone: [employer] Work Phone: 10-08-2021 10:24-0400 Body weight 87.8 kg Davide EspitiaCE[employer] Work Phone: [employer] Work Phone: 10-08-2021 10:24-0400 Diastolic blood pressure 64 mm[Hg] Davide EspitiaCE[employer] Work Phone: [place] [address] [place] Work Phone: 10-08-2021 10:24-0400 Systolic blood pressure 104 mm[Hg] Davide EspitiaCE[employer] Work Phone: [place] [address] [place] Work Phone: 10-01-2021 11:25-0400 Body height 167.64 cm Davide Oglesby [employer] Work Phone: [place] [address] [employer] Work Phone: 10-01-2021 11:25-0400 Body mass index (BMI) [Ratio] 31.06 kg/m2 Davide Oglesby [employer] Work Phone: [place] [address] [employer] Work Phone: 10-01-2021 11:25-0400 Body surface area Derived from formula 1.97 m2 Davide Oglesby [employer] Work Phone: [place] [address] [employer] Work Phone: 10-01-2021 11:25-0400 Body weight 87.3 kg Davide EspitiaCE[employer] Work Phone: [place] [address] [employer] Work Phone: 10-01-2021 11:25-0400 Diastolic blood pressure 62 mm[Hg] Davide EspitiaCE[employer] Work Phone: [place] [address] [place] Work Phone: 10-01-2021 11:25-0400 Systolic blood pressure 102 mm[Hg] Davide D [employer] Work Phone: [place] [address] [place] Work Phone: 09-24-2021 11:14-0400 Body height 167.64 cm Davide Oglesby [employer] Work Phone: [place] [address] [employer] Work Phone: 09-24-2021 11:14-0400 Body mass index (BMI) [Ratio] 30.53 kg/m2 Davide D [employer] Work Phone: [employer] [facility] [employer] Work Phone: 09-24-2021 11:14-0400 Body surface area Derived from formula 1.95 m2 Davide D [employer] Work Phone: [place] [address] [employer] Work Phone: 09-24-2021 11:14-0400 Body weight 85.79 kg Davide D [employer] Phone: [place] [address] [employer] Work Phone: 09-24-2021 11:14-0400 Diastolic blood pressure 80 mm[Hg] Davide D [employer] Phone: [place] [address] [employer] Work Phone: 09-24-2021 11:14-0400 Systolic blood pressure 110 mm[Hg] Davide D [employer] Phone: [place] [address] [employer] Work Phone: 09-17-2021 11:35-0400 Body height 167.64 cm Davide D [employer] Phone: [facility] [address] [employer] Work Phone: 09-17-2021 11:35-0400 Body mass index (BMI) [Ratio] 30.21 kg/m2 Davide D [employer] Work Phone: [place] [address] [employer] Work Phone: 09-17-2021 11:35-0400 Body surface area Derived from formula 1.94 m2 Davide D [employer] Phone: [place] [address] [employer] Work Phone: 09-17-2021 11:35-0400 Body weight 84.9 kg Davide D [employer] Phone: [employer] [facility] [employer] Work Phone: 09-17-2021 11:35-0400 Diastolic blood pressure 66 mm[Hg] Davide EspitiaCE[employer] Work Phone: [employer] [facility] [place] Work Phone: 09-17-2021 11:35-0400 Systolic blood pressure 108 mm[Hg] Davide Espit[employer]CE[employer] Work Phone: [employer] [facility] [employer] Work Phone: 09-10-2021 10:59-0400 Body height 167.64 cm Davide Oglesby [employer] Work Phone: [employer] Work Phone: 09-10-2021 10:59-0400 Body mass index (BMI) [Ratio] 30.1 kg/m2 Davide Oglesby [employer] Work Phone: [place] [address] [employer] Work Phone: 09-10-2021 10:59-0400 Body surface area Derived from formula 1.94 m2 Davide Oglesby [employer] Work Phone: [employer] Work Phone: 09-10-2021 10:59-0400 Body weight 84.6 kg Davide EspitiaCE2 [employer] Work Phone: [place] [address] [place] Work Phone: 09-10-2021 10:59-0400 Diastolic blood pressure 62 mm[Hg] Davide D [employer] Work Phone: [place] [address] [place] Work Phone: 09-10-2021 10:59-0400 Systolic blood pressure 110 mm[Hg] Davide D [employer] Work Phone: [place] [address] [place] Work Phone: 08-27-2021 11:23-0400 Body height 167.64 cm Davide Reny [employer] Work Phone: [employer] Work Phone: 08-27-2021 11:23-0400 Body mass index (BMI) [Ratio] 30.04 kg/m2 Davide D [employer] Work Phone: [employer] Work Phone: 08-27-2021 11:23-0400 Body surface area Derived from formula 1.94 m2 Davide Oglesby [employer] Work Phone: [employer] Work Phone: 08-27-2021 11:23-0400 Body weight 84.43 kg Davide Oglesby [employer] Work Phone: [employer] Work Phone: 08-27-2021 11:23-0400 Diastolic blood pressure 78 mm[Hg] Davide Oglesby [employer] Work Phone: [employer] Work Phone: 08-27-2021 11:23-0400 Systolic blood pressure 118 mm[Hg] Davide Oglesby [employer] Work Phone: [employer] Work Phone: 08-13-2021 08:58-0500 Body height 167.64 cm Davide Oglesby [employer] Work Phone: [employer] Work Phone: 08-13-2021 08:58-0500 Body mass index (BMI) [Ratio] 29.39 kg/m2 Davide D [employer] Work Phone: [employer] Work Phone: 08-13-2021 08:58-0500 Body surface area Derived from formula 1.92 m2 Davide Oglesby [employer] Work Phone: [employer] Work Phone: 08-13-2021 08:58-0500 Body weight 82.6 kg Davide Oglesby [employer] Work Phone: [employer] Work Phone: 08-13-2021 08:58-0500 Diastolic blood pressure 60 mm[Hg] Davide D [employer] Work Phone: [employer] Work Phone: 08-13-2021 08:58-0500 Systolic blood pressure 112 mm[Hg] Davide D [employer] Work Phone: [employer] Work Phone: 07-30-2021 11:06-0500 Body height 167.64 cm Davide D [employer] Work Phone: [employer] Work Phone: 07-30-2021 11:06-0500 Body mass index (BMI) [Ratio] 28.93 kg/m2 Davide Oglesby [employer] Work Phone: [employer] Work Phone: 07-30-2021 11:06-0500 Body surface area Derived from formula 1.91 m2 Davide Oglesby [employer] Work Phone: [employer] Work Phone: 07-30-2021 11:06-0500 Body weight 81.3 kg Davide D [employer] Work Phone: [employer] Work Phone: 07-30-2021 11:06-0500 Diastolic blood pressure 68 mm[Hg] Davide D [employer] Work Phone: [employer] Work Phone: 07-30-2021 11:06-0500 Systolic blood pressure 114 mm[Hg] Davide D [employer] Work Phone: [employer] Work Phone: 07-12-2021 14:39-0500 Body height 167.64 cm Davide [employer] Work Phone: [place] [address] [place] Work Phone: 07-12-2021 14:39-0500 Body mass index (BMI) [Ratio] 28.75 kg/m2 Davide [employer] Work Phone: [place] [address] [place] Work Phone: 07-12-2021 14:39-0500 Body surface area Derived from formula 1.9 m2 Davide [employer] Work Phone: [place] [address] [place] Work Phone: 07-12-2021 14:39-0500 Body temperature 97.7 [degF] Davide [employer] Work Phone: [place] [address] [place] Work Phone: 07-12-2021 14:39-0500 Body weight 80.8 kg Davide [employer] Work Phone: [place] [address] [place] Work Phone: 07-12-2021 14:39-0500 Diastolic blood pressure 64 mm[Hg] Davide Chao Work Phone: [place] [address] [place] Work Phone: 07-12-2021 14:39-0500 Systolic blood pressure 116 mm[Hg] Davide [employer] Work Phone: [place] [address] [place] Work Phone: 06-23-2021 20:00-0500 Body height 167.6 cm Gallito Couch MD Work Phone: [employer] 06-23-2021 20:00-0500 Body mass index (BMI) [Ratio] 27.95 kg/m2 Gallito Couch MD Work Phone: [employer] 06-23-2021 20:00-0500 Body temperature 98.4 [degF] Gallito Couch MD Work Phone: [employer] [facility] 06-23-2021 20:00-0500 Body weight 78.55 kg Gallito Couch MD Work Phone: [employer] [facility] 06-23-2021 20:00-0500 Diastolic blood pressure 66 mm[Hg] Gallito Couch MD Work Phone: [employer] [facility] 06-23-2021 20:00-0500 Heart rate 81 /min Gallito Couch MD Work Phone: [employer] [facility] 06-23-2021 20:00-0500 Respiratory rate 18 /min Gallito Couch MD Work Phone: [employer] [facility] 06-23-2021 20:00-0500 SaO2% (BldA) [Mass fraction] 98 % Gallito Couch MD Work Phone: [employer] [facility] 06-23-2021 20:00-0500 Systolic blood pressure 101 mm[Hg] Gallito Couch MD Work Phone: [employer] [facility] 05-17-2021 13:06-0500 Body height 167.6 cm Yuri Palencia MD Work Phone: [facility] 05-17-2021 13:06-0500 Body mass index (BMI) [Ratio] 26.26 kg/m2 Yuri Palencia MD Work Phone: [facility] 05-17-2021 13:06-0500 Body weight 73.8 kg Yuri Palencia MD Work Phone: [facility] 05-17-2021 13:06-0500 Diastolic blood pressure 65 mm[Hg] Yuri Palencia MD Work Phone: [facility] 05-17-2021 13:06-0500 Heart rate 80 /min Yrui Palencia MD Work Phone: [facility] 05-17-2021 13:06-0500 SaO2% (BldA) [Mass fraction] 95 % Yuri Palencia MD Work Phone: [facility] 05-17-2021 13:06-0500 Systolic blood pressure 97 mm[Hg] Yuri Palencia MD Work Phone: [facility] 03-17-2021 02:05-0400 Diastolic blood pressure 66 mm[Hg] Davide Willieagusto Other Phone: [facility] 03-17-2021 02:05-0400 Heart rate 59 /min Davide Williebrosydney Other Phone: [facility] 03-17-2021 02:05-0400 Respiratory rate 16 /min Davide Williebrosydney Other Phone: [facility] 03-17-2021 02:05-0400 SaO2% (BldA) [Mass fraction] 96 % Davide Willieagusto Other Phone: [facility] 03-17-2021 02:05-0400 Systolic blood pressure 102 mm[Hg] Davide Willieagusto Other Phone: [facility] 03-01-2021 06:50-0400 Diastolic blood pressure 63 mm[Hg] Davide Willieagusto Other Phone: [facility] 03-01-2021 06:50-0400 Heart rate 60 /min Davide Williebrosydney Other Phone: [facility] 03-01-2021 06:50-0400 Respiratory rate 18 /min Davide Willieagusto Other Phone: [facility] 03-01-2021 06:50-0400 SaO2% (BldA) [Mass fraction] 99 % Davide Willieagusto Other Phone: [facility] 03-01-2021 06:50-0400 Systolic blood pressure 98 mm[Hg] Davide Willieagusto Other Phone: [facility] 12-15-2020 02:09-0400 Diastolic blood pressure 72 mm[Hg] Davide Chao Other Phone: [facility] 12-15-2020 02:09-0400 Heart rate 74 /min Davide Chao Other Phone: [facility] 12-15-2020 02:09-0400 Respiratory rate 20 /min Davide Chao Other Phone: [facility] 12-15-2020 02:09-0400 SaO2% (BldA) [Mass fraction] 99 % Davide Chao Other Phone: [facility] 12-15-2020 02:09-0400 Systolic blood pressure 107 mm[Hg] Davide Chao Other Phone: [facility] 12-08-2020 03:30-0400 Diastolic blood pressure 68 mm[Hg] Davide Chao Other Phone: [facility] 12-08-2020 03:30-0400 Heart rate 61 /min Davide Chao Other Phone: [facility] 12-08-2020 03:30-0400 SaO2% (BldA) [Mass fraction] 98 % Davide Chao Other Phone: [facility] 12-08-2020 03:30-0400 Systolic blood pressure 103 mm[Hg] Davide Chao Other Phone: [facility] 12-08-2020 02:21-0400 Respiratory rate 16 /min Davide Chao Other Phone: [facility] 09-27-2020 12:09-0400 Body temperature 98.4 [degF] Barbara Sandoval MD Work Phone: [facility] 09-27-2020 12:09-0400 Diastolic blood pressure 76 mm[Hg] Barbara Sandoval MD Work Phone: [facility] 09-27-2020 12:09-0400 Heart rate 102 /min Barbara Sandoval MD Work Phone: [facility] 04-25-2021 12:09-0400 Respiratory rate 18 /min Barbara Sandoval MD Work Phone: [facility] 09-27-2020 12:09-0400 SaO2% (BldA) [Mass fraction] 100 % Barbara Sandoval MD Work Phone: [facility] 09-27-2020 12:09-0400 Systolic blood pressure 114 mm[Hg] Barbara Sandoval MD Work Phone: [facility] 09-26-2020 21:00-0400 Diastolic blood pressure 59 mm[Hg] Davide Chao Other Phone: [facility] 09-26-2020 21:00-0400 Heart rate 66 /min Davide Chao Other Phone: [facility] 09-26-2020 21:00-0400 Respiratory rate 18 /min Davide Chao Other Phone: [facility] 09-26-2020 21:00-0400 SaO2% (BldA) [Mass fraction] 99 % Davide Willieagusto Other Phone: [facility] 09-26-2020 21:00-0400 Systolic blood pressure 95 mm[Hg] Davide Chao Other Phone: [facility] 09-26-2020 19:57-0400 Diastolic blood pressure 85 mm[Hg] Generic [facility] Work Phone: [facility] 09-26-2020 19:57-0400 Heart rate 75 /min Generic [facility] Work Phone: [facility] 09-26-2020 19:57-0400 Respiratory rate 16 /min Generic [facility] Work Phone: [facility] 09-26-2020 19:57-0400 Systolic blood pressure 121 mm[Hg] Generic [facility] Work Phone: [facility] 09-26-2020 16:40-0400 Body height 167.6 cm Davide Chao Other Phone: [facility] 09-26-2020 16:40-0400 Body temperature 98.6 [degF] Davide Chao Other Phone: [facility] 09-26-2020 16:40-0400 Body weight 72.7 kg Davide Chao Other Phone: [facility] 09-01-2018 22:18-0400 BP Diastolic 79 mm[Hg] [facility] 09-01-2018 22:18-0400 BP Systolic 108 mm[Hg] [facility] 09-01-2018 22:18-0400 Pulse (Heart Rate) 73 /min [facility] 09-01-2018 22:18-0400 Pulse Oximetry 100 % [facility] 09-01-2018 22:18-0400 Respiratory Rate 16 /min [facility] 09-01-2018 16:13-0400 BMI (Body Mass Index) 21.95 kg/m2 [facility] 09-01-2018 16:13-0400 Body Temperature 98.01 [degF] [facility] 09-01-2018 16:13-0400 Height 167.6 cm [facility] 09-01-2018 16:13-0400 Weight 61.69 kg [facility] Encounters Encounter Date Encounter Type Care Provider Facility Start: 01-09-[address] Melissa Brasher DO -Laboratory Work Phone: Start: 01-07-[address] Melissa Brasher DO -Lab [facility] Start: 01-05-2025 End: 01-05-[address] Melissa Brasher DO -Laboratory Work Phone: Start: 01-05-2025 End: 01-05-2025 ambulatory Melissa Brasher Facility:[facility] Start: 01-03-2025 End: 01-03-2025 Patient encounter procedure Jeanette Roach CNM -[facility] Work Phone: Start: 01-03-2025 End: 01-03-[address] Davide Chao MD Work Phone: -[facility] Start: 12-31-2024 ambulatory DEVAN MARINO Facility:[facility] Start: 12-31-[address] Davide calloway MD Work Phone: -Cardiovascular Services Work Phone: Start: 12-24-2024 ambulatory DAVIDE CHAO [facility] Start: 12-20-2024 ambulatory Melissa Brasher Fa cility:[facility] Start: 12-20-2024 Non-patient / Non-visit Dr. César Brasher DO -[facility] Start: 12-20-2024 End: 12-20-[address] Davide Chao MD Work Phone: -Radiology [facility] Start: 12-20-2024 End: 12-20-[address] Melissa Brasher DO -[facility] Work Phone: Start: 12-20-2024 End: 12-20-2024 ambulatory Melissa Brasher Facility:[facility] Start: 12-06-2024 End: 12-06-2024 Emergency department patient visit TRISTIN DO [facility] Start: 12-03-2024 Non-patient / Non-visit Dr. Bre hutton MD -[facility] Work Phone: Start: 11-23-2024 End: 11-23-2024 Emergency department patient visit Dr. Davide Chao MD Work Phone: -Emergency Department Work Phone: Start: 11-15-2024 End: 11-15-[address] Davide Chao MD Work Phone: [facility] Work Phone: Start: 11-15-2024 End: 11-15-2024 Patient encounter procedure Jeanette Roach CNM -Lab [facility] Start: 11-15-2024 End: 11-15-2024 ambulatory Jeanette Roach Facility:[facility] Start: 11-11-2024 End: 11-11-[address] Davide Chao MD Work Phone: [facility] Work Phone: Start: 11-11-2024 End: 11-11-[address] Melissa Brasher DO -Laboratory Work Phone: Start: 11-11-2024 End: 11-11-2024 ambulatory Melissa Brasher Facility:[facility] Start: 10-26-2024 End: 10-26-[address] Davide Chao MD Work Phone: [facility] Work Phone: Start: 10-26-2024 End: 10-26-[address] Melissa Brasher DO -Laboratory Work Phone: Start: 10-26-2024 End: 10-26-2024 ambulatory Melissa Brasher Facility:[facility] Start: 09-12-2024 End: 11-12-2024 Follow-up encounter Marina Snell APRN.[employer] Work Phone: OB/Gynecology Start: 09-12-2024 End: 09-12-2024 Telephone encounter Davide Chao MD Work Phone: [facility] [place] Comment on above: Faxed to [facility] Start: 09-10-2024 End: 09-10-2024 ambulatory [employer] Work Phone: OB/Gynecology Start: 09-10-2024 End: 09-10-2024 Patient encounter procedure [employer] OB/Gynecology Start: 09-05-2024 End: 09-05-2024 ambulatory DAVIDE CHAO Facility:[facility] Start: 09-05-2024 End: 09-05-2024 Patient encounter procedure Marina Snell APRN.[employer] OPER[employer] Work Phone: OB/Gynecology Comment on above: Uterine cyst (Primar y Dx); Adenomyosis of uterus Start: 08-21-2024 End: 08-21-[address] Davide Chao MD Work Phone: [facility] Work Phone: Start: 08-21-2024 End: 08-21-[address] Melissa Brasher DO -Ultrasound, [facility] Work Phone: Start: 08-21-2024 End: 08-21-2024 ambulatory Melissa Brasher Facility:[facility] Start: 08-19-2024 End: 08-19-[address] Davide Chao MD Work Phone: [facility] Work Phone: Start: 08-19-2024 End: 08-19-[address] Melissa Brasher DO -Laboratory, Specimen Work Phone: Start: 08-19-2024 End: 08-19-[address] Melissa Brasher DO -[facility] Work Phone: Start: 08-19-2024 End: 08-19-2024 ambulatory Melissa Brasher Facility:[facility] Start: 08-19-2024 End: 10-19-2024 Follow-up encounter Davide Chao MD Work Phone: [facility] Start: 08-19-2024 End: 08-19-2024 ambulatory Melissa Brasher Facility:[facility] Start: 08-16-2024 End: 08-16-2024 ambulatory DAVIDE CHAO Facility:[facility] Start: 08-15-2024 ambulatory [facility] Start: 08-14-2024 End: 08-15-2024 Telephone encounter Davide [facility]ao MD [facility] Phone[facility] Comment on above: Results (labs) Start: 08-12-2024 End: 08-12-2024 Follow-up encounter Davide Chao MD Work Phone: [facility] [place] Start: 08-12-2024 End: 08-12-2024 ambulatory DAVIDE CHAO Facility:[facility] Start: 08-06-2024 End: 08-06-2024 [facility] Davide Chao MD Work Phone: [facility] [place] Comment on above: Elevated blood press ure reading without diagnosis of hypertension (Primary Dx); Fibromyalgia; Anxiety with depression; ADHD (attention deficit hyperactivity disorder), combined type Start: 07-24-2024 End: 07-24-2024 Patient encounter procedure Laura Salinas CNM -Lab, [facility] Start: 07-24-2024 End: 07-24-2024 ambulatory [facility] Facility:[facility] Start: 06-10-2024 End: 06-10-2024 Patient encounter procedure Davide Chao MD Work Phone: [facility] [place] Comment on above: Anxiety (Primary Dx) ; Elevated blood pressure reading without diagnosis of hypertension; ADHD (attention deficit hyperactivity disorder), combined type Start: 06-10-2024 End: 06-10-2024 ambulatory DAVIDE CHAO Facility:[facility] Start: 06-10-2024 End: 06-10-2024 ambulatory Love Castillo NP Facility:[facility] Start: 04-19-2024 End: 04-19-2024 ambulatory [facility] Facility:[facility] Start: 04-19-2024 End: 04-19-2024 ambulatory [facility] Facility:[facility] Start: 03-29-2024 End: 03-29-2024 ambulatory Davide Chao MD Work Phone: [facility] [place] Comment on above: Eosinophilic esophag itis (Primary Dx); Anxiety with depression; Dysphagia, unspecified type Start: 03-29-2024 End: 03-29-2024 Telemedicine consultation with patient Davide Chao MD Work Phone: [facility] Odilia Vogel Start: 03-26-2024 End: 03-26-2024 ambulatory Davide Chao MD Work Phone: [facility] [place] Comment on above: Advice Start: 03-22-2024 End: 03-22-2024 Emergency department patient visit RAMON PULLIAM MD [facility] Start: 03-22-2024 End: 03-22-2024 Telephone encounter Davide Chao MD Work Phone: [facility] [place] Comment on above: Chest Pain Start: 03-22-2024 End: 03-22-2024 Emergency department patient visit ANTONETTE MENDEZ [facility] Start: 12-28-2023 Telephone encounter Davide deng MD Work Phone: [facility] [place] Comment on above: Medication Request Start: 12-08-2023 End: 12-08-2023 ambulatory Davide Chao MD Work Phone: [facility] [place] Comment on above: Anxiety with depress ion (Primary Dx) Start: 12-08-2023 End: 12-08-2023 Telemedicine consultation with patient Davide Chao MD Work Phone: [facility] [place] Start: 11-03-2023 End: 11-03-2023 ambulatory Davide Chao MD Work Phone: [facility] [place] Comment on above: Fibromyalgia (Primar y Dx); Anxiety with depression; Near syncope; URI, acute Start: 11-03-2023 End: 11-03-2023 Telemedicine consultation with patient Davide Chao MD Work Phone: [facility] [place] Start: 11-01-2023 Refill Davide haq MD Work Phone: [facility] [place] Comment on above: Refill Request Start: 10-18-2023 Telephone encounter Rayo Nielson PA-C Work Phone: [facility] [place] Start: 10-17-2023 End: 10-17-2023 ambulatory DAVIDE CHAO Facility:[facility] Start: 10-17-2023 End: 10-17-2023 Office outpatient visit 25 minutes Rayo Nielson PA-C Work Phone: [facility] [place] Comment on above: Near syncope (Primar y Dx) Start: 10-03-2023 Non-patient / Non-visit Dr. Richi Chao Work Phone: [facility] Start: 10-03-2023 End: 10-03-2023 Admission to same day surgery center Dr. Davide Chao Work Phone: [facility] Start: 10-03-2023 End: 10-03-[address] Davide Chao Work Phone: [facility] Work Phone: Start: 09-04-2023 End: 09-04-[address] Davide Chao Work Phone: [facility] Work Phone: Start: 08-11-2023 ambulatory Davide haq MD Work Phone: [facility] Comment on above: Supplement Start: 08-10-2023 End: 08-10-2023 Patient encounter procedure Roberto Andrea SERA Work Phone: [facility] Comment on above: Viral syndrome (Prim james Dx); Urinary frequency Start: 07-13-2023 End: 07-13-[address] Davide Chao Work Phone: [facility] Work Phone: Start: 07-13-2023 End: 07-13-[address] Davide Chao Work Phone: [facility] Work Phone: Start: 07-11-2023 Refill Davide haq MD Work Phone: [facility] Comment on above: Refill Request Start: 06-28-2023 End: 06-28-[address] Davide Chao Work Phone: [facility] Work Phone: Start: 06-28-2023 End: 06-28-[address] Davide Chao Work Phone: [facility] Specimen Work Phone: Start: 06-28-2023 End: 06-28-[address] Davide Chao Work Phone: [facility] Work Phone: Start: 06-28-2023 End: 06-28-[address] Davide Chao Work Phone: [facility] Work Phone: Start: 06-09-2023 End: 06-09-2023 Subsequent hospital visit by physician Alina Alvarado MD Work Phone: [facility] [employer]st Comment on above: Arrived Start: 06-06-2023 End: 06-07-2023 Emergency department patient visit Son Gunderson MD Work Phone: [facility] Emergency Medicine Comment on above: Vaginal bleeding (Pr imary Dx) Start: 05-31-2023 ambulatory [facility] Start: 05-31-2023 End: 05-31-2023 Subsequent hospital visit by physician Alina Alvarado MD Work Phone: [facility] [employer]st Comment on above: Arrived Start: 05-08-2023 Refill Davide haq MD Work Phone: [facility] Comment on above: Refill Request Start: 04-07-2023 Telephone encounter Davide deng MD Work Phone: [facility] Comment on above: Patient Question Start: 03-28-2023 End: 03-28-2023 ambulatory Davide Chao MD Work Phone: [facility] Comment on above: Anxiety with depress ion (Primary Dx); Bilateral leg edema; Anemia, unspecified type; Elevated liver function tests Start: 03-28-2023 End: 03-28-2023 Telemedicine consultation with patient Davide Chao MD Work Phone: [facility] Start: 03-18-2023 Non-patient / Non-visit Dr. Richi Chao Work Phone: [facility] Start: 03-18-2023 End: 03-18-[address] Davide Chao Work Phone: [facility] Work Phone: Start: 03-18-2023 End: 03-18-[address] Davide Chao Work Phone: [facility] Out[facility] Work Phone: Start: 03-18-2023 End: 03-18-2023 Emergency department patient visit DAVIDE WALSH [facility] Start: 03-13-2023 Non-patient / Non-visit Dr. Richi Chao Work Phone: [facility] Start: 03-13-2023 End: 03-13-2023 Emergency department patient visit Edy Orellana MD Work Phone: [facility] Emergency Medicine Comment on above: Hypertension, unspec ified type (Primary Dx); induced hypertension, antepartum Start: 03-12-2023 Non-patient / Non-visit Dr. Richi Chao Work Phone: [facility] Start: 03-11-2023 Non-patient / Non-visit Dr. Richi Chao Work Phone: [facility] Start: 03-10-2023 Non-patient / Non-visit Dr. Richi Chao Work Phone: [facility] Start: 03-09-2023 Non-patient / Non-visit Dr. Richi Chao Work Phone: [facility] Start: 03-09-2023 End: 03-11-2023 Evaluation and management of inpatient Dr. Davide Chao Work Phone: [facility] Work Phone: Start: 03-09-2023 End: 03-09-[address] Davide Chao Work Phone: [facility] Work Phone: Start: 03-08-2023 Non-patient / Non-visit Dr. Richi Chao Work Phone: [facility] Start: 03-08-2023 End: 03-08-[address] Davide Chao Work Phone: [facility], Outpatients Work Phone: Start: 03-04-2023 Non-patient / Non-visit Dr. Richi Chao Work Phone: [facility] Start: 03-04-2023 End: 03-04-[address] Davide Chao Work Phone: [facility] Work Phone: Start: 03-04-2023 End: 03-04-[address] Davide Chao Work Phone: [facility], Outpatients Work Phone: Start: 03-04-2023 End: 03-04-[address] Davide Chao Work Phone: [facility] Work Phone: Start: 03-04-2023 End: 03-04-[address] Davide Chao Work Phone: [facility], Outpatients Work Phone: Start: 03-03-2023 End: 03-03-[address] Davide Chao Work Phone: [facility] Work Phone: Start: 03-01-2023 End: 03-01-[address] Davide Chao Work Phone: [facility], Outpatients Work Phone: Start: 02-28-2023 End: 02-28-[address] Davide Chao Work Phone: [facility] Work Phone: Start: 02-28-2023 End: 02-28-[address] Davide Chao Work Phone: [facility] Work Phone: Start: 02-24-2023 End: 02-24-[address] [facility] Work Phone: Start: 02-22-2023 End: 02-22-[address] Davide Chao Work Phone: [facility] Work Phone: Start: 02-22-2023 End: 02-22-[address] Davide Chao [facility] Work Phone: Start: 02-18-2023 Non-patient / Non-visit Dr. Richi Chao Work Phone: [facility] Start: 02-18-2023 End: 02-18-[address] Davide Chao Work Phone: [facility] Work Phone: Start: 02-18-2023 End: 02-18-[address] Davide Chao Work Phone: [facility], Outpatients Work Phone: Start: 02-17-2023 End: 02-17-[address] Davide Chao Work Phone: [facility] Specimen Work Phone: Start: 02-17-2023 End: 02-17-[address] Davide Chao Work Phone: [facility] Work Phone: Start: 02-02-2023 End: 02-02-[address] Davide Chao Work Phone: [facility] Work Phone: Start: 02-01-2023 End: 02-01-[address] Davide Chao Work Phone: [facility] Work Phone: Start: 01-30-2023 Non-patient / Non-visit Dr. Richi Chao Work Phone: [facility] Start: 01-30-2023 Telephone encounter Davide deng MD Work Phone: [facility] [place] Comment on above: Pain, Back; yellowin g of sclera Start: 01-30-2023 End: 01-30-[address] Davide Chao Work Phone: [facility] Work Phone: Start: 01-30-2023 End: 01-30-[address] Davide Chao [facility] Work Phone: Start: 01-27-2023 End: 01-27-2023 Patient encounter procedure Marilyn Gruber APRN.BLOW UP OPERATOR Work Phone: [facility] Comment on above: STD (sexually transm itted disease) (Primary Dx) Start: 01-23-2023 End: 01-23-2023 Emergency department patient visit Dr. Davide Chao Work Phone: [facility] Work Phone: Start: 01-16-2023 Non-patient / Non-visit Dr. Richi Chao Work Phone: [facility] Start: 01-16-2023 End: 01-16-[address] Davide Chao Work Phone: [facility] Work Phone: Start: 01-16-2023 End: 01-16-[address] Davide Chao Work Phone: [facility] Work Phone: Start: 12-21-2022 End: 12-21-[address] Davide Chao Work Phone: [facility] Work Phone: Start: 11-29-[address] Davide Chao Facility:[id number] Start: 11-29-2022 Patient encounter procedure [facility]ide Chao Work Phone: [facility] Work Phone: Start: 11-25-2022 End: 11-25-[address] Davide Chao Work Phone: [facility] Work Phone: Start: 11-11-2022 End: 11-11-[address] Davide Chao Work Phone: [facility] Work Phone: Start: 11-11-2022 End: 11-11-[address] Davide Chao Facility:[id number] Start: 11-11-2022 End: 11-11-2022 Subsequent hospital visit by physician Andry Rueda MD Work Phone: [facility] Comment on above: Lower abdominal pain , unspecified; Antepartum hemorrhage, unspecified, second trimester; Maternal care for other rhesus isoimmunization, second trimester, not applicable or unspecified; 21 weeks gestation of Start: 11-10-[address] Davide Chao Facility:[id number] Start: 11-04-2022 [facility] Start: 11-04-2022 End: 11-04-2022 Subsequent hospital visit by physician Alina Alvarado MD Work Phone: [facility] [employer] Analyst Comment on above: Arrived Start: 11-04-2022 End: 11-04-[address] Davide Chao Work Phone: [facility] Work Phone: Start: 11-04-2022 End: 11-04-[address] Davide Chao Work Phone: [facility] Start: 11-03-2022 AQUATICFU4, Provider : Katalina Roach, Status: Pen, Time: 11:30 AM Davide Chao Work Phone: [facility] Work Phone: Start: 11-01-2022 Patient encounter procedure Davide Chao Work Phone: [facility] Work Phone: Start: 11-01-[address] Davide Chao Facility:[id number] Start: 10-28-2022 End: 10-28-[address] Davide Chao Work Phone: [facility] Start: 10-18-2022 Patient encounter procedure Davide Chao Work Phone: [facility] Work Phone: Start: 10-18-[address] Davide Chao Facility:[id number] Start: 10-10-2022 Telephone encounter Davide dneg MD Work Phone: [facility] Comment on above: Referral Request Start: 10-10-2022 End: 10-10-2022 ambulatory DAVIDE CHAO [facility] Start: 09-28-2022 End: 09-28-[address] Davide Chao Work Phone: [facility] Work Phone: Start: 09-28-2022 End: 09-28-[address] Davide Chao Work Phone: [facility] Specimen Start: 09-28-2022 End: 09-28-[address] Davide Chao Work Phone: [facility] Start: 09-11-2022 End: 09-12-2022 Emergency department patient visit Byron Aranda [facility] Emergency 09 Start: 09-10-2022 End: 09-11-2022 Emergency department patient visit Dr. John Valladares Facility:[id number] Start: 08-17-2022 End: 08-17-[address] Davide Chao Work Phone: [facility] Work Phone: Start: 08-17-2022 End: 08-17-[address] Dav[facility] Start: 08-17-2022 End: 08-17-[address] Davide Chao Work Phone: [facility] Start: 08-10-[address] Davide Chao Facility:[id number] Start: 08-03-2022 End: 08-03-[address] Davide Chao Work Phone: [facility] Start: 08-02-2022 End: 08-02-2022 Emergency department patient visit ANDRY ECKERT [facility] Start: 07-30-2022 End: 07-31-2022 ambulatory [facility] Start: 07-30-2022 End: 07-30-2022 Subsequent hospital visit by physician Davide Chao Work Phone: [facility] Start: 07-29-2022 End: 07-29-[address] Davide Chao Work Phone: [facility] Work Phone: Start: 07-29-2022 End: 07-29-[address] Davide Chao Work Phone: [facility] Start: 07-28-2022 End: 07-30-2022 ambulatory YANIV Cantor SKYE [facility] Hospit al Start: 07-28-2022 End: 07-30-2022 Subsequent hospital visit by physician [facility] Ultrasound Room [facility] Comment on above: Acute bilateral low back pain with right-sided sciatica; , unspecified gestational age , unspecifi ed gestational age Start: 07-26-2022 End: 07-26-2022 Emergency department patient visit [facility] Start: 07-14-2022 Emergency department patient visit [facility] Start: 07-13-2022 End: 07-14-2022 Emergency department patient visit Nery Esparza MD Work Phone: [facility] ED Comment on above: Back strain, initial encounter (Primary Dx) Start: 06-21-2022 End: 06-21-2022 ambulatory Davide Chao MD Work Phone: [facility] [place] Comment on above: Chronic insomnia (Pr imary Dx); Anxiety with depression; Gastritis without bleeding, unspecified chronicity, unspecified gastritis type Start: 06-21-2022 End: 06-21-2022 Telemedicine consultation with patient Davide Chao MD Work Phone: [facility] Start: 05-09-2022 End: 05-09-2022 Emergency department patient visit DIPAK LLANES [facility] Start: 03-04-2022 End: 03-04-2022 ambulatory Davide Chao MD Work Phone: [facility] [place] Comment on above: Anxiety with depress ion (Primary Dx) Start: 03-04-2022 End: 03-04-2022 Telemedicine consultation with patient Davide Chao MD Work Phone: [facility] [place] Start: 03-03-2022 ambulatory Davide haq MD Work Phone: [facility] [place] Comment on above: Medications Start: 11-29-2021 E-mail encounter fro m caregiver [facility] Start: 11-29-2021 Follow-up encounter [facility] Provider [facility] [place] Comment on above: Follow up Start: 11-29-2021 End: 11-29-2021 ambulatory Davide Chao MD Work Phone: [facility] [place] Comment on above: Anxiety Start: 11-29-2021 End: 11-29-2021 Telemedicine consultation with patient Davide Chao MD Work Phone: [facility] [place] Start: 11-21-2021 End: 11-21-2021 ambulatory [facility] Start: 11-21-2021 End: 11-21-2021 Office outpatient visit 15 minutes [facility] Work Phone: [facility] Urgent [facility] Comment on above: Non-recurrent acute suppurative otitis media of left ear without spontaneous rupture of tympanic membrane (Primary Dx) Start: 11-16-[address] Davide Chao Facility:[id number] Start: 10-12-2021 End: 10-14-2021 Evaluation and management of inpatient Andry Rueda [facility] 405 Start: 10-11-2021 Chart Update Davide haq Work Phone: [address] Work Phone: Start: 10-08-2021 ambulatory MD ANDRY RUEDA Facility:[id number] Start: 10-01-2021 Office outpatient vi sit 15 minutes Davide D Elderbrock Work Phone: [facility] [address] Work Phone: Start: 10-01-2021 ambulatory MD ANDRY RUEDA Facility:[id number] Start: 09-27-2021 Chart Update Davide Reny Elderbr ock Work Phone: [facility] [address] Work Phone: Start: 09-24-2021 Office outpatient vi sit 10 minutes Davide Oglesby Elderbrock Work Phone: [facility] [address] Work Phone: Start: 09-24-[address] [id number] Start: 09-20-2021 Chart Update Davide Oglesby Elderbr ock Work Phone: [facility] [address] Work Phone: Start: 09-17-[address] Davide Chao Facility:[id number] Start: 09-10-2021 Office outpatient vi sit 15 minutes Davide Oglesby Zhanna Work Phone: [facility] [address] Work Phone: Start: 09-10-[address] Davide Chao Facility:[id number] Start: 08-31-2021 AUDIT Davide Oglesby Williebr ock Work Phone: [facility] [address] Work Phone: Start: 08-27-[address] Davide Chao Facility:[id number] Start: 08-27-2021 Office outpatient vi sit 15 minutes Davide Oglesby Williebrock Work Phone: [facility] [address] Work Phone: Start: 08-13-2021 ambulatory MD ANDRY RUEDA Facility:[id number] Start: 08-06-2021 Chart Update Davide Oglesby Elderbr ock Work Phone: [facility] [address] Work Phone: Start: 07-30-2021 Office outpatient vi sit 15 minutes Davide Chao Work Phone: [facility] [employer] Work Phone: Start: 07-12-2021 Office outpatient vi sit 15 minutes Davide Chao Work Phone: [facility] [address] [employer] Work Phone: Start: 06-23-2021 End: 06-23-2021 Subsequent hospital visit by physician Gallito Couch MD Work Phone: [facility] Start: 05-17-2021 End: 05-21-2021 [facility] Start: 05-17-2021 End: 05-17-2021 Office outpatient new 45 minutes Maricel Simeon MD Work Phone: [facility] Comment on above: Palpitations (Primar y Dx) Start: 05-12-2021 End: 05-13-2021 Emergency department patient visit [facility] Start: 05-09-2021 End: 05-10-2021 Emergency department patient visit [facility] Start: 03-16-2021 End: 03-17-2021 Emergency department patient visit Cheyanne Izaguirre [facility] Emergency 10 Start: 03-01-2021 End: 03-01-2021 Emergency department patient visit Son Gunderson [facility] Emergency 12 Start: 02-12-2021 Patient requested procedure [facility] Provider [facility] Work Phone: Start: 12-14-2020 End: 12-15-2020 Emergency department patient visit Cheyanne Izaguirre [facility] Emergency 04 Start: 12-08-2020 End: 12-08-2020 [facility] Start: 09-27-2020 End: 09-27-2020 Emergency department patient visit [facility] Start: 09-27-2020 End: 09-27-2020 Emergency department patient visit Barbara Sandoval MD Work Phone: [facility] Start: 09-26-2020 End: 09-26-2020 ambulatory [facility] Start: 09-26-2020 End: 09-26-2020 Evaluation and management of inpatient Generic [facility] Work Phone: [facility] Start: 09-26-2020 End: 09-26-2020 Emergency department patient visit Rm DuranSusana Veras [facility] Emergency 02 Start: 08-12-2020 End: 08-12-2020 Transcribe Orders Davide Chao Work Phone: [facility] Comment on above: Cervical pain (Prima ry Dx) Start: 09-18-2018 Emergency department patient visit UNKNOWN PROVIDER [facility] Start: 09-01-2018 End: 09-01-2018 Emergency department patient visit Tony Roe Egal Work Phone: [facility] Comment on above: Kidney stone on left side (Primary Dx) Start: 08-31-2018 End: 09-01-2018 Emergency department patient visit HITESH RESTREPO [facility] Start: 08-22-2018 Emergency department patient visit UNKNOWN PROVIDER [facility] Start: 08-17-2018 End: 08-17-2018 ambulatory UNKNOWN PROVIDER Facility:[facility] Start: 07-12-2018 End: 07-12-2018 Patient encounter procedure RENETTA SOW Facility:[facility] Start: 06-21-2018 End: 06-21-2018 Patient encounter procedure RENETTA SOW Facility:[facility] Start: 11-25-2017 End: 11-25-2017 Emergency department patient visit [facility] Facility:[facility] Procedures Date Procedure Procedure Detail Performing Clinician Start: 01-03-[address] Davide Chao MD Work Phone: Comment on above: Follicular phase 0.1 - 0.9 Luteal phase 1.8 - 23.9 Ovulation phase 0.1 - 12.0 First trimester 11.0 - 44.3 Second trimester 25.4 - 83.3 Third trimester 58.7 - 214.0 Postmenopausal 0.0 - 0.1Performed at: [facility] [id number] Director: Maximilian Hunt PhD, Phone: [phone] Start: 01-03-[address] aDvide Chao MD Work Phone: Start: 01-03-[address] Davide Chao MD Work Phone: Start: 12-20-[address] Davide [...] - 214.0 Postmenopausal 0.0 - 0.1Performed at: [address] Director: Maximilian Hunt PhD, Phone: [phone] Start: 09-10-2024 Us pelvic nonobstetric real-time image [...] Chao MD Work Phone: Start: 03-22-2024 Urinalysis TRISTINSandy EDUARDO Comment on above: Result Comment: URINALYSIS Performed By: #### [id number] ####[facility],[address] [place] [address] Start: 10-03-[address] Davide Chao Work Phone: Start: 08-10-2023 INFLUENZA A&B MOLECULAR (POC) Roberto Andrea APRN.BLOW UP OPERATOR Work Phone: Start: 08-10-2023 Urnls dip stick/tablet rgnt auto w/o microscopy Roberto Andrea APRN.BLOW UP OPERATOR Work Phone: Start: 07-13-[address] [...] 2000 panel - Serum or Plasma [facility] Start: 03-18-2023 EXTRA URINE GILBERT TUBE DAVIDE [facility] Start: 03-18-2023 Hepatic function 2000 panel - Serum or Plasma DAVIDE [facility] Start: 03-18-2023 Lactate dehydrogenase [Enzymatic activity/volume] in Serum or Plasma DAVIDE [facility] Start: 03-18-2023 Urate [Mass/volume] in Serum or Plasma DAVIDE [facility] Start: 03-18-2023 URINALYSIS WITH REFLEX MICROSCOPIC AND CULTURE DAVIDE [facility] Start: 03-18-2023 CBC W Auto Differential panel - Blood DAVIDE [facility] Start: 03-13-2023 DISCHARGE PATIENT DAVIDE [facility] Start: 03-13-2023 INITIATE REQUEST TO ANOTHER FACILITY [facility] Start: 03-13-2023 Bacteria identified in Urine by Culture [facility] Start: 03-13-2023 URINALYSIS MICROSCOPIC ONLY [facility] Start: 03-13-2023 URINALYSIS WITH REFLEX MICROSCOPIC AND CULTURE [facility] Start: 03-13-2023 XR CHEST 1 VIEW [facility] Start: 03-13-2023 aPTT in Blood by Coagulation assay [facility] Start: 03-13-2023 Basic metabolic 2000 panel - Serum or Plasma [facility] Start: 03-13-2023 C-reactive protein [facility] Start: 03-13-2023 CBC W Auto Differential panel - Blood [facility] Start: 03-13-2023 Hepatic function 2000 panel - Serum or Plasma [facility] Start: 03-13-2023 Lactate [Moles/volume] in Serum or Plasma [facility] Start: 03-13-2023 Magnesium [Mass/volume] in Serum or Plasma [facility] Start: 03-13-2023 Natriuretic peptide B [Mass/volume] in Blood [facility] Start: 03-13-2023 Phosphate [Mass/volume] in Serum or Plasma [facility] Start: 03-13-2023 PROTIME-INR DAVIDE CHAO Start: 03-13-2023 [...] on above: Performed By: #### T+S #### [place] [address] Start: 11-11-2022 Antibody screen Andry Rueda MD [...] 09-28-2022 Investigation of transfusion reaction Dr. Davide hCao Work Phone: Start: 08-03-2022 Transvaginal obstetric ultrasonography [...] Phone: Start: 11-16-2021 care only separate procedure Dvaide Chao Work Phone: Start: 10-12-2021 Rhogam Andry Rueda Start: 06-23-2021 RAPID TOX SCREEN WITH RELEX TO [facility] Gallito Couch MD Work Phone: Start: 06-23-2021 [...] Work Phone: Start: 09-01-2018 RAINBOW DRAW Tony Gilmansame Egal Work Phone: Start: 09-01-2018 Choriogonadotropin ( test) [Presence] in Urine Tony Gilmansame Egal Work Phone: Start: 09-01-2018 Urinalysis Tony Bhupinder Egal Work Phone: Start: 08-17-2018 UROLOGY SERVICE REQUEST UNKNOWN PROVIDER Start: 06-15-2018 Microscopic observation [Identifier] in Cervix by Cyto stain Davide Chao Cardiac ablation sys tem (physical object) RAMON PULLIAM MD Cardiac catheterization CE PULLIAM MD Cholecystectomy Davide liz Work Phone: Comment on above: 2009; Cholecystectomy RAMON Duran MD Cytopathology proced ure, preparation of smear, genital source Dr. Davide Chao Work Phone: H/O: surgery History of rever alejandra of tubal ligation Dr. Davide Chao MD Work Phone: H/O: tubal ligation Status post [...] of 2) Zoster Vaccines (1 of 2) [facility] Start: 08-19-2029 Screening for malignant neoplasm of cervix Cervical Cancer Screening [facility] Start: 05-04-2026 DTaP/Tdap/Td vaccine (2 - Td or Tdap) DTaP/Tdap/Td vaccine (2 - Td or Tdap) [facility] Start: 05-04-2026 DTaP/Tdap/Td Vaccines (2 - Td or Tdap) DTaP/Tdap/Td Vaccines (2 - Td or Tdap) [facility] Start: 05-04-2026 Tetanus vaccination [facility] Start: 05-04-2026 Urine microalbumin profile [facility] Start: 01-07-2026 HPV TESTING HPV TESTING [facility] Start: 01-07-2026 PAP TESTING PAP TESTING [facility] Start: 01-07-2026 Screening for malignant neoplasm of cervix [facility] Start: 02-03-2025 Influenza vaccination Influenza Vaccine (Season Ended) [facility] Start: 01-03-2025 Choriogonadotropin ( test) [Presence] in Serum or Plasma [facility] Start: 01-03-2025 Serum progesterone measurement [facility] Start: 11-23-2024 [facility] Start: 11-23-2024 End: 11-23-2024 [facility] Start: 09-10-2024 End: 09-10-2024 ambulatory 09/10/2024 2:00 PM EDT Procedure OB/Gynecology [address] [place] [facility] [address] Remote, [employer] [address] [facility] [place] [address] Uterine cyst [N85.8]; Adenomyosis of uterus [N80.03] OB/Gynecology Comment on above: Uterine cyst [N85.8]; Adenomyosis of [place] [N80.03] Start: 09-09-2024 End: 09-09-2024 Patient encounter procedure 09/09/2024 12:40 PM EDT Office Visit [facility] [address] [place], [place] [id number] Davide Chao MD [address] [facility] [place] [address] 3 month follow up [facility] Comment on above: 3 month follow up Start: 09-05-2024 End: 09-05-2025 US Pelvis PELVIC US [facility] Routine Uterine cyst Adenomyosis of uterus Expected: 09/05/2024, Expires: 09/05/2025 [facility] Work Phone: Comment on above: Expected: 09/05/2024, Expires: Start: 08-15-2024 End: 11-14-2024 Folate [Mass/volume] in Serum or Plasma FOLATE, SERUM Lab Routine Fatigue, unspecified type Expected: 08/15/2024, Expires: 11/14/2024 [facility] Comment on above: Expected: 08/15/2024, Expires: Start: 08-15-2024 End: 11-14-2024 Iron and Iron binding capacity panel - Serum or Plasma IRON AND TIBC Lab Routine Fatigue, unspecified type Expected: 08/15/2024, Expires: 11/14/2024 [facility] Work Phone: Comment on above: Expected: 08/15/2024, Expires: 5 Start: 03-29-2024 End: 03-29-2024 ambulatory 03/29/2024 11:40 AM EDT [facility] [address] [facility] [place] [address] Davide Chao MD [address] [place] [address] Chest pain, ER visit-nothing found, can't swallow [facility] [place] Comment on above: Chest pain, ER visit-nothing found, can' t swallow Start: 02-04-2024 Covid-19 Vaccine ( season) Covid-19 Vaccine () [facility] Start: 02-04-2024 Influenza vaccination Influenza Vaccine (#1) [facility] Start: 10-17-2023 End: 01-16-2024 Basic metabolic 2000 panel - Serum or Plasma [facility] Work Phone: Comment on above: Expected: 10/17/2023, Expires: 4 Start: 10-17-2023 End: 01-16-2024 Thyrotropin [Units/volume] in Serum or Plasma [facility] Comment on above: Expected: 10/17/2023, Expires: 4 Start: 10-03-2023 Patient discharge [facility] Start: 10-03-2023 Procedure discontinued [facility] Start: 10-03-2023 Ambulation without limitation [facility] Start: 10-03-2023 Medical regimen orders management [facility] Start: 10-03-2023 Medication education [facility] Start: 10-03-2023 Taking patient vital signs [facility] Start: 10-03-2023 Vital signs measurements [facility] Start: 10-03-2023 [facility] Start: 06-28-2023 Assay of thyroid stimulating hormone tsh ASSAY THYROID STIM HORMONE [facility] Start: 06-28-2023 Blood count complete auto&auto difrntl wbc COMPLETE CBC W/AUTO DIFF WBC [facility] Start: 06-28-2023 Collection venous blood venipuncture ROUTINE VENIPUNCTURE [facility] Start: 06-19-2023 End: 06-19-2023 Patient encounter procedure 06/19/2023 1:00 PM EST Office Visit [facility] [address] [place] [address] Alina Alvarado MD [address] [place] [address] [facility] Start: 06-09-2023 End: 06-09-2023 Patient encounter procedure 06/09/2023 1:00 PM EST Appointment [employer] [address] [facility] [place] [address] Alina Alvarado MD [address] [place] [address] [employer] Start: 06-06-2023 End: 06-06-2023 Patient encounter procedure 06/06/2023 1:45 PM EST Office Visit [facility] [address] [place] [address] Alina Alvarado MD [address] [facility] [place] [address] [facility] Start: 03-28-2023 End: 06-27-2023 CBC panel - Blood by Automated count CBC Lab Routine Anemia, unspecified type Expected: 03/28/2023, Expires: 06/27/2023 [facility] Work Phone: Comment on above: Expected: 03/28/2023, Expires: Start: 03-28-2023 End: 06-27-2023 Comprehensive metabolic 2000 panel - Serum or Plasma COMP METABOLIC PANEL Lab Routine Anemia, unspecified type Elevated liver function tests Expected: 03/28/2023 (Approximate), Expires: 06/27/2023 [facility] Work Phone: Comment on above: Expected: 03/28/2023 (Approximate), Expi res: 06/27/2023 Start: 03-28-2023 End: 06-27-2023 Natriuretic peptide.B prohormone N-Terminal [Mass/volume] in Serum or Plasma NT PRO BNP Lab Routine Bilateral leg edema Anemia, unspecified type Elevated liver function tests Expected: 03/28/2023, Expires: 06/27/2023 [facility] Work Phone: Comment on above: Expected: 03/28/2023, Expires: Start: 03-18-2023 Vital signs measurements [facility] Start: 03-18-2023 End: 03-18-2023 [facility] Start: 03-18-2023 Patient discharge [facility] Start: 03-11-2023 Patient discharge [facility] Start: 03-10-2023 Administration of blood product [facility] Start: 03-10-2023 Administration of medication [facility] Start: 03-10-2023 Application of ice collar, cap or bag [facility] Start: 03-10-2023 Catheterization of vein [facility] Start: 03-10-2023 Introduction of urinary catheter [facility] Start: 03-10-2023 Measuring intake and output [facility] Start: 03-10-2023 Notification of physician [facility] Start: 03-10-2023 Procedure discontinued [facility] Start: 03-10-2023 Provision of activity privileges [facility] Start: 03-10-2023 Vital signs measurements [facility] Start: 03-10-2023 [facility] Start: 03-10-2023 Consultation [facility] Start: 03-09-2023 Admission procedure [facility] Start: 03-08-2023 monitoring labor phys written report MONITOR W/REPORT [facility] Start: 03-08-2023 nonstress test NON-STRESS TEST [facility] Start: 03-08-2023 Urnls dip stick/tablet reagent auto microscopy URINALYSIS AUTO W/SCOPE [facility] Start: 03-08-2023 Nonstress test [facility] Start: 03-08-2023 Obstetric monitoring [facility] Start: 03-08-2023 Vital signs measurements [facility] Start: 03-08-2023 [facility] Start: 03-08-2023 Patient discharge [facility] Start: 03-04-2023 [facility] Start: 03-04-2023 Nonstress test [facility] Start: 03-04-2023 Biophysical profile panel US [facility] Start: 03-04-2023 Ultrasonography for biophysical profile without non-stress testing Biophysical Prof W/O Non Stres [facility] Start: 03-04-2023 Obstetric monitoring [facility] Start: 03-04-2023 Vital signs measurements [facility] Start: 03-04-2023 [facility] Start: 03-04-2023 Patient discharge [facility] Start: 03-04-2023 [facility] Start: 03-01-2023 Nonstress test [facility] Start: 03-01-2023 Obstetric monitoring [facility] Start: 03-01-2023 Vital signs measurements [facility] Start: 03-01-2023 [facility] Start: 02-18-2023 Genital Culture Genital Culture [facility] Start: 02-18-2023 Microscopic observation [Identifier] in Unspecified specimen by Gram stain Gram Stain [facility] Start: 02-18-2023 Source specific culture [facility] Start: 02-18-2023 Procedure [facility] Start: 02-18-2023 Administration of blood product [facility] Start: 02-18-2023 Nonstress test [facility] Start: 02-18-2023 Obstetric monitoring [facility] Start: 02-18-2023 Vital signs measurements [facility] Start: 02-18-2023 [facility] Start: 02-18-2023 Chlamydia deoxyribonucleic acid detection [facility] Start: 02-18-2023 Patient discharge [facility] Start: 02-03-2023 Covid-19 Vaccine () Covid-19 Vaccine () [facility] Start: 02-03-2023 Influenza vaccination [facility] Start: 01-30-2023 Nonstress test [facility] Start: 01-30-2023 Obstetric monitoring [facility] Start: 01-30-2023 Vital signs measurements [facility] Start: 01-30-2023 [facility] Start: 01-30-2023 Patient discharge [facility] Start: 01-24-2023 [facility] Start: 01-23-2023 Troponin I measurement [facility] Start: 01-23-2023 [facility] Start: 01-16-2023 Following clinical pathway protocol [facility] Start: 01-16-2023 Iv infusion hydration initial 31 min-1 hour HYDRATION IV INFUSION INIT [facility] Start: 12-21-2022 Patient referral [facility] Work Phone: Start: 11-25-2022 Patient referral [facility] Work Phone: Start: 11-17-2022 OLIVER, Provider: Sylvia Calle, Status: Pen, Time: 11:30 AM RUTHYADABIGAIL, Provider: Sylvia Calle, Status: Pen, Time: 11:30 AM [facility] Work Phone: Start: 11-15-2022 AQUATICFU4, Provider: Katalina Roach, Status: Pen, Time: 11:30 AM AQUATICFU4, Provider: Katalina Roach, Status: Pen, Time: 11:30 AM [facility] Work Phone: Start: 11-10-2022 AQUATICFU4, Provider: Katalina Roach, Status: Pen, Time: 11:30 AM AQUATICFU4, Provider: Katalina Roach, Status: Pen, Time: 11:30 AM [facility] Work Phone: Start: 11-08-2022 AQUATICFU4, Provider: Katalina Roach, Status: Pen, Time: 11:30 AM AQUATICFU4, Provider: Katalina Roach, Status: Pen, Time: 11:30 AM [facility] Work Phone: Start: 10-28-2022 Patient referral [facility] Work Phone: Start: 08-17-2022 Liquid based cervical cytology screening [facility] Start: 02-15-2022 Patient encounter procedure ANNUAL, Provider: Andry Rueda, Status: Pen, Time: 11:00 AM [employer] Work Phone: Start: 02-03-2022 Influenza vaccination [facility] Start: 01-03-2022 Influenza vaccination Flu vaccine (#1) [facility] Start: 11-16-2021 Patient encounter procedure [facility] Start: 11-16-2021 PPV, Provider: Andry Rueda, Status: Pen, Time: 2:00 PM PPV, Provider: Andry Rueda, Status: Pen, Time: 2:00 PM [employer] Work Phone: Start: 10-12-2021 End: 10-13-2022 [facility] Comment on above: Consult provider prior to [...] fentaNYL 2 mcg/mL - Bupivacaine 0.0625% PCEA ([facility] ONLY) ; DEMAND/ PCEA Dose = 4BASAL/ Continuous Rate = 10One Hour Dose Limit = 34 mL/hr mL per hourNotes from Pharmacy: [Fentanyl 2 mcg/mL - Bupivacaine 0.0625%] Start: 12-Oct-2021 End: 12-Oct-2022 Ordered: 12-Oct-2021 Osiel Valentin [facility] Start: 10-08-2021 EPVOB, Provider: Andry Rueda, Status: Pen, Time: 10:30 AM EPVOB, Provider: Andry Rueda, Status: Pen, Time: 10:30 AM [facility] [address] Work Phone: Start: 10-01-2021 EPVOB, Provider: Andry Rueda, Status: Pen, Time: 11:15 AM EPVOB, Provider: Andry Rueda, Status: Pen, Time: 11:15 AM [facility] Work Phone: Start: 09-26-2021 Diabetes mellitus screening Diabetes Screening [facility] Start: 09-24-2021 EPVOB, Provider: Anil Panchal, Status: Pen, Time: 11:15 AM EPVOB, Provider: Anil Panchal, Status: Pen, Time: 11:15 AM [facility] Work Phone: Start: 09-17-2021 EPVOB, Provider: Andry Ruead, Status: Pen, Time: 11:30 AM EPVOB, Provider: Andry Rueda, Status: Pen, Time: 11:30 AM [facility] [address] Work Phone: Start: 09-10-2021 EPVOB, Provider: Andry Rueda, Status: Pen, Time: 11:00 AM EPVOB, Provider: Andry Rueda, Status: Pen, Time: 11:00 AM [facility] [address] Work Phone: Start: 08-13-2021 EPVOB, Provider: Andry Rueda, Status: Pen, Time: 9:00 AM EPVOB, Provider: Andry Rueda, Status: Pen, Time: 9:00 AM [facility] [employer] Work Phone: Start: 07-30-2021 EPVOB, Provider: Andry Rueda, Status: Pen, Time: 11:15 AM EPVOB, Provider: Andry Rueda, Status: Pen, Time: 11:15 AM [facility] [employer] Work Phone: Start: 07-20-2021 End: 07-20-2021 Patient encounter procedure 07/20/2021 Office Visit Cardiology Yuri Palencia MD [address] [place] [id number] [facility] Start: 06-15-2021 Screening for malignant neoplasm of cervix [facility] Start: 05-17-2021 End: 07-18-2022 Echocardiography Echocardiogram complete Echocardiography Routine Palpitations Expected: 05/17/2021, Expires: 07/18/2022 [facility] Work Phone: Comment on above: Expected: 05/17/2021, Expires: 3 Start: 05-17-2021 End: 07-18-2022 Extended Holter Monitor (3-7 days) Extended Holter Monitor (3-7 days) Cardiac Services Routine Palpitations Expected: 05/17/2021, Expires: 07/18/2022 [facility] Comment on above: Expected: 05/17/2021, Expires: 3 Start: 02-03-2021 Influenza vaccination [facility] Start: 2020 Screening for malignant neoplasm of cervix HPV (without or with Pap) [facility] Start: 02-04-2020 Influenza vaccination Sequential Influenza Vaccine (#1) [facility] Start: 02-04-2020 Influenza vaccination given Sequential Influenza Vaccine (#1) [facility] Start: 02-03-2018 Influenza vaccination given SEQUENTIAL INFLUENZA VACCINE (#1) [facility] Start: 2011 Screening for malignant neoplasm of cervix [facility] Start: 2009 Hepatitis A Vaccines (1 of 2 - Risk 2-dose series) Hepatitis A Vaccines (1 of 2 - Risk 2-dose series) [facility] Start: 2009 Hepatitis B Vaccine (1 of 3 - 19+ 3-dose series) Hepatitis B Vaccine (1 of 3 - 19+ 3-dose series) [facility] Start: 2009 Third diphtheria, tetanus and acellular pertussis (DTaP) vaccination TDAP (ADULT) [facility] Start: 2008 Hepatitis C antibody, confirmatory test Hepatitis C Screening [facility] Start: 2008 Hepatitis C screening [facility] Start: 2008 Tetanus vaccination TETANUS [facility] Start: 2006 COVID-19 Vaccine (1 of 2) COVID-19 Vaccine (1 of 2) [facility] Start: 2006 COVID-19 Vaccine (1) COVID-19 Vaccine (1) [facility] Start: 2005 HIV screening [facility] Start: 2002 Adolescent depression screening assessment Depression Screening (PHQ9) [facility] Start: 2002 Depression Screen Depression Screen [facility] Start: 2002 Depression screening using PHQ-9 (Patient Health Questionnaire 9) score [facility] Start: 1995 COVID-19 Vaccine (#1) COVID-19 Vaccine (#1) [facility] Start: 1995 COVID-19 Vaccine (1) COVID-19 Vaccine (1) [facility] Start: 1993 History and physical examination, annual for health maintenance Wellness Visit [facility] Start: 1991 MMR Vaccines (1 of 1 - Standard series) MMR Vaccines (1 of 1 - Standard series) [facility] Start: 1991 Varicella vaccination Varicella Vaccines (1 of 2 - 2-dose childhood series) [facility] Start: 1991 Varicella vaccine (1 of 2 - 2-dose childhood series) Varicella vaccine (1 of 2 - 2-dose childhood series) [facility] Start: 1990 COVID-19 VACCINE (#1) COVID-19 VACCINE (#1) [facility] Start: 1990 HEPATITIS B (1 of 3 - 3-dose series) HEPATITIS B (1 of 3 - 3-dose series) [facility] Start: 1990 Hepatitis B vaccination HEP B VACCINE (1 of 3 - 3-dose series) [facility] Start: 1990 Hepatitis B Vaccine (1 of 3 - 3-dose series) Hepatitis B Vaccine (1 of 3 - 3-dose series) [facility] Start: 1990 Hepatitis B Vaccines (1 of 3 - 3-dose series) Hepatitis B Vaccines (1 of 3 - 3-dose series) [facility] Start: 1990 Hepatitis C antibody, confirmatory test HEPATITIS C VIRUS SCREENING [facility] Start: 1990 Hepatitis C screening HEPATITIS C VIRUS SCREENING [facility] Start: 1990 HIV screening HIV Screening [facility] Start: 1990 Lipid panel Lipid Panel [facility] Start: 1990 Screening for malignant neoplasm of cervix PAP SMEAR [facility] Start: 1990 Tetanus vaccination TETANUS EVERY 10 YR [facility] Start: 1990 Yearly Adult Physical Yearly Adult Physical [facility] End: 03-13-2023 Bacteria identified in Urine by Culture [facility] Work Phone: Comment on above: Once (Lab) for 1 Occurrences starting until 03/13/2023 End: 06-07-2023 Bacteria identified in Urine by Culture Urine Culture Microbiology Routine Once (Lab) for 1 Occurrences starting 06/07/2023 until 06/07/2023 [facility] Work Phone: Comment on above: Once (Lab) for 1 Occurrences starting until 06/07/2023 Bacteria identified in Urine by Culture Urine Culture Microbiology Routine 06/06/2023 11:41 PM EST [facility] Work Phone: End: 06-06-2023 Blood type and Indirect antibody screen panel - Blood [facility] Work Phone: Comment on above: Once (Lab) for 1 Occurrences starting until 06/06/2023 CBC W Auto Different ial panel - Blood [facility] Creatinine [Mass/vol ume] in Urine collected for unspecified duration [facility] End: 03-13-2023 Extra Urine Gilbert Tube [facility] Work Phone: Comment on above: Once for 1 Occurrences starting 03/13/20 23 until 03/13/2023, 1 completed End: 06-06-2023 Extra Urine Gilbert Tube [facility] Work Phone: Comment on above: Once for 1 Occurrences starting 06/06/19 until 06/06/2023 Biophysical pr ofile panel US [facility] Genital microscopy, culture and sensitivities [facility] Hepatitis B surface antigen measurement [facility] Hepatitis C antibody measurement [facility] HIV 1+2 Ab+HIV1 p24 Ag [Presence] in Serum or Plasma by Immunoassay [facility] 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 JOANN R MONITOR - RODDING ANODE WORKER ECG Routine Tachycardia Near syncope Dizziness and giddiness Ordered: 10/20/2022 [facility] Comment on above: Ordered: 10/20/2022 End: 05-31-2023 HOLTER MONITOR - CUSTODIAL HOLTER MONITOR - CUSTODIAL ECG Routine Near syncope Tachycardia 1 Occurrences starting 05/31/2023 until 05/31/2023 [facility] Comment on above: 1 Occurrences starting 05/31/2023 until 05/31/2023 Neisseria gonorrhoea e rRNA [Presence] in Unspecified specimen by MAYTE with probe detection [facility] Path report.final Dx Spec [facility] Patient Education [facility] Work Phone: Patient referral [facility] Work Phone: PCR test for Chlamyd ia trachomatis [facility] Center Procedure [facility] Protein [Mass/volume ] in Urine [facility] Protein/Creatinine [ Mass Ratio] in Urine [facility] Protein/Creatinine [ Ratio] in Urine [facility] Rubella IgG measurement [facility] Source specific culture [facility] Treponema sp Ab [Pre sence] in Serum [facility] End: 03-13-2023 Urinalysis complete W Reflex Culture panel - Urine [facility] Service Area Work Phone: Comment on above: Once (Lab) for 1 Occurrences starting until 03/13/2023 End: 06-06-2023 Urinalysis complete W Reflex Culture panel - Urine [facility] Work Phone: Comment on above: Once (Lab) for 1 Occurrences starting until 06/06/2023 [facility] [place]izations Immunization Date Immunization Notes Care Provider Xenia merlene 08-03-2023 influenza virus vaccine, unspecified formulation Davide Chao MD Work Phone: [facility] 06-17-2019 influenza virus vaccine, unspecified formulation Davide Chao MD Work Phone: [facility] 05-04-2016 RHO(D) immune globulin- IV or IM [facility] Provider [facility] Work Phone: 05-04-2016 tetanus toxoid, reduced diphtheria toxoid, and acellular pertussis vaccine, adsorbed [facility] Provider [facility] Work Phone: 03-23-2016 influenza, injectabl e, quadrivalent, contains preservative [facility] Provider [facility] 03-23-2016 influenza virus vaccine, unspecified formulation Gallito Couch MD Work Phone: [facility] 06-14-2013 influenza virus vaccine, unspecified formulation [facility] Provider [facility] 04-25-2012 RHO(D) immune globulin- IV or IM [facility] Provider [facility] Work Phone: 04-05-2012 influenza virus vaccine, whole virus [facility] Provider [facility] 06-22-2010 RHO(D) immune globulin- IV or IM [facility] Provider [facility] Payers Date Payer Category Payer Self-pay [id number] 2017 Unknown 2014 Medicaid [employer] MEDICA[employer]ICA[employer] xxxxxxxxxxx 2014-Present [id number]. [id number] 2014 Medicaid [id number] [id number].3. [id number] 2014 Medicaid [id number]. 1.13.385.2.7.3. [id number] 2014 Unknown [id number] 2014 Unknown [id number] 1.2.840.938588.1.13.239.2.7.3. 369247.315 1990 Unknown [id number] 2.16.840.1.973591.3.579.2.278 1990 Unknown [id number] 2.16.840.1.585992.3.579.2.278 1990 Unknown [id number] 2.16.840.1.698048.3.579.2.668 1990 Unknown [id number] 2.16.840.1.560775.3.579.2.668 1990 Unknown [id number] 2.16.840.1.769564.3.579.2.903 1990 Unknown [id number] 2.16.840.1.316472.3.579.2.903 1990 Unknown [id number] 2.16.840.1.954025.3.579.2.903 1990 Unknown [id number] 2.16.840.1.995596.3.579.2.903 1990 Unknown [id number] 2.16.840.1.989516.3.579.2.903 1990 Unknown [id number] 2.16.840.1.395541.3.579.2.903 1990 Unknown [id number] 2.16.840.1.830048.3.579.2.903 1990 Unknown [id number] 2.16.840.1.916061.3.579.2.732 1990 Unknown [id number] 2.16.840.1.881516.3.579.2.903 1990 Unknown [id number] 2.16.840.1.328581.3.579.2.174 1990 Unknown [id number] 2.16.840.1.272846.3.579.2.174 1990 Unknown [id number] 2.16.840.1.746726.3.579.2.174 1990 Unknown [id number] 2.16.840.1.355649.3.579.2.174 1990 Unknown [id number] 2.16.840.1.877582.3.579.2.174 1990 Unknown [id number] 2.16.840.1.295740.3.579.2.903 1990 Unknown [id number] 2.16.840.1.494095.3.579.2.903 1990 Unknown [id number] 2.16.840.1.973223.3.579.2.356 1990 Unknown [id number] 2.16.840.1.714902.3.579.2.356 1990 Unknown [id number] 2.16.840.1.762522.3.579.2.356 1990 Unknown [id number] 2.16.840.1.316589.3.579.2.356 1990 Unknown [id number] 2.16.840.1.167416.3.579.2.356 1990 Unknown [id number] 2.16.840.1.156099.3.579.2.356 1990 Unknown [id number] 2.16.840.1.839621.3.579.2.356 1990 Unknown [id number] 2.16.840.1.358754.3.579.2.356 1990 Unknown [id number] 2.16.840.1.350960.3.579.2.356 1990 Unknown [id number] 2.16.840.1.322337.3.579.2.479 1990 Unknown [id number] 2.16.840.1.182049.3.579.2.9 1990 Unknown [id number] 2.16.840.1.874704.3.579.2.9 1990 Unknown [id number] 2.16.840.1.462615.3.579.2.1068 1990 Unknown [id number] 2.16.840.1.034102.3.579.2.1068 1990 Unknown [id number] 2.16.840.1.195595.3.579.2.1068 1990 Unknown [id number] 2.16.840.1.065519.3.579.2.1068 1990 Unknown [id number] 2.16.840.1.342220.3.579.2.1068 1990 Unknown [id number] 2.16.840.1.892230.3.579.2. 1990 Unknown [id number] 2.16.840.1.132537.3.579.2. 1990 Unknown [id number] 2.16.840.1.401555.3.579.2.1242 1990 Unknown [id number] 2.16.840.1.218245.3.579.2.1242 1990 Unknown [id number] 2.16.840.1.208831.3.579.2.1242 1990 Unknown [id number] 2.16.840.1.837334.3.579.2.627 1990 Unknown [id number] 2.16.840.1.381470.3.579.2.983 1990 Unknown [id number] 2.16.840.1.131828.3.579.2.651 1990 Unknown [id number] 2.16.840.1.634918.3.579.2.651 1990 Unknown [id number] 2.16.840.1.295535.3.579.2.651 1990 Unknown [id number] 2.16.840.1.555229.3.579.2.983 Unknown [id number] 2.16.840.1.631898.3.579.2.462 Unknown [id number] 2.16.840.1.844328.3.579.2.462 Unknown [id number] 2.16.840.1.515124.3.579.2.462 Unknown [id number] 2..840.1.296063.3.579.2.462 Unknown [id number] 2..840.1.626764.3.579.2.462 Unknown [id number] 2..840.1.191771.3.579.2.462 Unknown [id number] 2..840.1.014197.3.579.2.462 Unknown [id number] 2..840.1.739031.3.579.2.462 Unknown [id number] 2.16.840.1.218269.3.579.2.462 Unknown [id number] 2.16.840.1.034535.3.579.2.462 Unknown [id number] 2.16.840.1.866101.3.579.2.462 Unknown [id number] 2.16.840.1.219104.3.579.2.462 Unknown [id number] 2.16.840.1.699124.3.579.2.462 Unknown [id number] 2.16.840.1.802335.3.579.2.462 Unknown [id number] 2.16.840.1.162750.3.579.2.462 Unknown [id number] 2.16.840.1.977321.3.579.2.462 Unknown [id number] 2.16.840.1.784950.3.579.2.462 Unknown [id number] 2.16.840.1.265548.3.579.2.462 Social History Date Type Detail Facility Start: 09-01-2018 End: 11-23-2024 Tobacco smoking status MIIS Current every day smoker [facility] Start: 01-23-2004 End: 01-24-2021 History of tobacco use Cigarette Smoker [facility] Start: 09-01-2018 End: 11-03-2023 Cigarettes smoked current (pack per day) - Reported [facility] Start: 1990 Sex Assigned At Not on file [facility] Start: 09-01-2018 Alcohol intake Not Asked [facility] Start: 07-29-2022 End: 09-21-2023 Tobacco smoking consumption unknown [facility] Start: 11-11-2021 End: 06-07-2023 Exposure to SARS-CoV-2 (event) Not sure [facility] Start: 09-27-2020 End: 06-10-2024 Tobacco use and exposure Never used [facility] Start: 09-27-2020 End: 06-07-2023 Alcohol intake Lifetime non-drinker (finding) [facility] Start: 09-27-2020 End: 06-21-2022 History SDOH Alcohol Frequency 1 [facility] Start: 05-17-2021 End: 06-10-2024 Tobacco smoking status MIIS Ex-smoker [facility] Start: 01-23-2004 End: 01-24-2021 History of tobacco use Current smoker [facility] Start: 06-23-2021 End: 09-05-2024 Alcohol intake Current non-drinker of alcohol (finding) [facility] Start: 11-29-2021 End: 06-21-2022 History SDOH Alcohol Frequency 2 [facility] Start: 11-29-2021 End: 06-21-2022 History SDOH Social Connections Living 8 [facility] Start: 11-29-2021 End: 06-21-2022 History SDOH Physical Activity DPW 0 [facility] Start: 11-29-2021 End: 06-21-2022 History SDOH Stress 4 [facility] Start: 11-29-2021 History SDOH Housing Places Lived 3 [facility] Start: 06-13-2019 Education 21 [facility] Start: 06-21-2022 History SDOH Stress 5 [facility] Start: 09-25-2020 None [facility] Start: 09-25-2020 Cigarettes [facility] Start: 1990 Sex Assigned At Female W [facility] Start: 10-20-2022 Tobacco Comment [facility] Start: 06-21-2022 End: 11-03-2023 Social connection and isolation panel [facility] Do you belong to any clubs or organizations such as [employer] groups, [employer], Gigathlete or athleHeadroom groups, or school groups? No [facility] Are you now , , , , never or living with a partner? Living with partner [facility] How often to you hav e a drink containing alcohol? Monthly or less [facility] How many standard drinks containing alcohol do you have on a typical day? 1 or 2 [facility] How often do you hav e 6 or more drinks on 1 occasion? Never [facility] How hard is it for y ou to pay for the very basics like food, housing, medical care, and heating Not very hard [facility] Adult Depression Screening Assessment 3 [facility] Do you feel stress - tense, restless, nervous, or anxious, or unable to sleep at night because your mind is troubled all the time - these days [OSQ] Very much [facility] (I/We) worried wheth er (my/our) food would run out before (I/we) got money to buy more. Never true [facility] Start: 03-13-2023 Tobacco smoking stat us NHIS Never smoked tobacco [facility] Work Phone: Start: 03-13-2023 End: 05-16-2023 Tobacco use and exposure User of smokeless tobacco [facility] Work Phone: Start: 06-23-2017 Gender identity Identifies as female gender (finding) [facility] Do you belong to any clubs or organizations such as [employer] groups, [employer], Gigath[employer] or athletic groups, or school groups? Yes [facility] Tobacco Nicotine Use: Va ping Product in Last 90 Days. Type: Electronic Cigarettes (Vaping). [facility] Sex Assigned At Sex [facility] Start: 08-27-2024 End: 08-29-2024 Sex Female (finding) [facility] NEGATED: Highlighted row [facility] Medical Equipment Procedure Code Equipment Code Equipment Origin al Text Equipment Identifier Dates Fallopian tube clip/band ([id number] FDA Start: 03-10-2023 Goals Date Patient Goal Desired Activity /State Functional Status Date Assessment Result Facility 03-22-2024 [facility] 03-22-2024 Functional Status Standard Safet y ID band on, Call device within reach, Bed in low position, Wheels locked [facility] 10-03-2023 Functional status Ambulates;Bath room Privilege [facility] Work Phone: 03-18-2023 Functional status Activity Abili ty Independent [facility] Work Phone: 12-29-2014 Are you deaf, or do you have serious difficulty hearing No 12/29/2014 12:30 PM EDT Bonnie Eduardo LPN No [facility] 12-29-2014 Are you blind, or do you have serious difficulty seeing, even when wearing glasses No 12/29/2014 12:30 PM EDT Bonnie Eduardo LPN No [facility] 12-29-2014 Do you have serious difficulty walking or climbing stairs No 12/29/2014 12:30 PM EDT Bonnie Eduardo LPN No [facility] 12-29-2014 Do you have difficul ty dressing or bathing No 12/29/2014 12:30 PM EDT Bonnie Eduardo LPN No [facility] 12-29-2014 Because of a physica l, mental, or emotional condition, do you have difficulty doing errands alone such as visiting a physician's office or shopping No 12/29/2014 12:30 PM EDT Bonnie Eduardo LPN No [facility] Functional observable [facility] Mental Status Date Assessment Result Facility 11-23-2024 Cognitive function Level Of Cons ciousness Awake;Alert;Appropriate;Fol lows Commands [facility] Work Phone: 03-22-2024 Mental Status Orientation Oriented x 4 [facility] 03-22-2024 Mental Status [facility] 10-03-2023 Cognitive function Light Pain [facility] Work Phone: 03-10-2023 Cognitive function Level Of Cons ciousness Follows Commands;Drowsy [facility] Work Phone: 01-23-2023 Cognitive function Voice/Name [facility] Work Phone: 10-14-2021 Cognitive functi ons [id number] [facility] 12-29-2014 Because of a physica l, mental, or emotional condition, do you have serious difficulty concentrating, remembering, or making decisions No 12/29/2014 12:30 PM EDT Bonnie Eduardo LPN No [facility] Clinical Notes 07-04-2016 to 01-03-2025 Note Date & Type Note Facility 01-03-2025 Progress note [facility] 01-03-2025 Progress note Note Date/Time January 03, 2025 3:56pm [facility] [address], [address] [place] [address] OFFICE VISIT Date of Service: 01/03/25 MR#: [id number] Acct: [id number] Name: QUE SANCHEZ Rep #: [id number] : 1990 Provider: TIM Roach Age/Sex: 34/F Location: [facility] Status: Signed Intake Vital Signs 11/23/24 20:23 01/03/25 15:35 Height 5 ft 6 in 5 ft 6 in Weight: 177 lb 4 oz BMI 28.5 BP 108/68 Intake Visit Reasons: Possible BV Chief Complaint: Possible BV Wardrobe Attendant Required: No Is patient in pain?: No [...] tablet 200 mg PO QDAY 01/03/2506/29 History prenat.vits,malgorzata,coh-hbsh-lgcdi tab PO 01/03/25 5 History zinc acetate [...] full term 7lbs 2oz Female [address] [facility] [address] Emilia Jung 09/07/10 Bridget 39 live - full term 7lbs 4oz Female 46 suzette rs [facility] Satya 07/12/12 Pj 38 live - full term 7lbs 6oz Male 4 hours [facility] Lilli Piña 07/15/16 Missy 37 live - full term 7lbs 8oz Male [address] [facility] [address] Jurado 10/12/21 [place] 40 live - full term 8lbs 2oz [...] Acute Plan: HCG x 2 progesterone 01/03/25 9767 <Electronically signed by Jeanette guido CNM> Date _ Jeanette Roach CNM Cosigner Signature: Date (if applicable) CC: ~ [facility] Work Phone: 1(206) 371-982207-21-2025 Procedure note [facility] Medical Records Department [address] [place] [address] Procedure Report 12/20/24 1712 MR#: [id number] Acct: [id number] Name: QUE SANCHEZ Rep #:[id number] : 1990 34 From: Melissa Brasher DO PCP: Dr. Davide Chao MD Status:RE G CLI Location: RAD Problems Associated Problem List Diagnoses (1) Tubal reversal surgical follow up: Multi Select Codes Urinary/Genital Urinary/Genital CPT Codes: 43430 HSG/SIS Non-invasive Procedural Procedure Information Date of Procedure: 12/23/24 Pre-Procedure Diagnosis: tubal reversal follow up Post-Procedure Diagnosis: tubal reversal follow up Procedure Performed:: HSG shank skinner: No Description of procedure: Operative details: Patient [...] bilateral fallopian tubes Complications Complications: No 12/23/24 8304 Cosigner Signature (if applicable): CC: Dr. Melissa Brasher DO; Dr. Davide Chao MD~ Signed [facility]07-18-2025 Evaluation note* Diagnosis Onset Date Resolution Status Admit Date Tubal reversal surgical foll ow up acute December 20, 2024 11:44am [facility] Work Phone: 1(188) 709-724107-18-2025 Evaluation note* Diagnosis Onset Date Resolution Status Admit Date Tubal reversal surgical foll ow up acute December 20, 2024 11:44am Amenorrhea acute January 03 3:30pm Vaginal odor acute January 03, 2025 3:30pm [facility] Work Phone: 1(588) 453-692307-18-2025 Radiology Diagnostic study note [facility] Imaging Services [address] [place], [place] [address] Salpingogram MR#: [id number] Acct: [id number] Name: QUE SANCHEZ Rep #: [id number] : 1990 F 34 From: Andrés Sullivan MD PCP: Dr. Davide Chao MD Status: RE G CLI Study:Salpingogram Date of Exam: 5 Exam# [id number] Ordering Dr: Melissa Mcneill DO PROCEDURE: SALPINGOGRAM 12/20/2024 REASON FOR EXAM: HSG TECHNIQUE: SALPINGOGRAM COMPARISON: None FINDINGS: Hysterosalpingogram was performed by the cna caregiver. Imaging was provided. Dose report: 21 seconds of fluoroscopy. 8.98 mGy. 2 images were submitted. The uterus is unremarkable. Both fallopian tubes are patent with free spill. RAD/Salpingogram IMPRESSION: Unremarkable hysterosalpingogram. Reading Location: [place] [address] CC: Dr. Melissa Brasher DO; Dr. Davide Chao MD ~ Service Secretary: Signed [facility]06-21-2025 Radiology Diagnostic study note [facility] Imaging Services [address] [place], [place] [address] Chest PA and Lateral MR#: [id number] Acct: [id number] Name: QUE SANCHEZ Rep #: [id number] : 1990 F 34 From: Carolyne Vo MD PCP: Dr. Davide Chao MD Status: RE G ER Study:Chest PA and Lateral Date of Exam: 11/23/24 Exam# [id number] Ordering Dr: Ryan Pearson DO PROCEDURE: CHEST PA AND LATERAL 11/23/2024 REASON FOR EXAM: CHEST PAIN TECHNIQUE: CHEST PA AND LATERAL COMPARISON: Chest radiograph 05/08/2018. FINDINGS: Hardware: None. Heart: The heart size is normal. Mediastinum: The mediastinal contour is unremarkable. Lungs: No focal consolidation, pleural effusion or pneumothorax. Bones: The bones are unremarkable. RAD/Chest PA and Lateral IMPRESSION: NEGATIVE CHEST Reading Location: [facility] CC: Dr. Davide Chao MD; Dr. Ryan Pearson, DO ~ Service Secretary: Signed [facility]04-10-2025 Telephone encounter Note* Telephone Encounter - Omer Cowan RN - 09/12/2024 9:31 AM EDT Faxed US pelvic results to attn: Samara/nurse, [facility], per patient request. [facility]04-10-2025 Miscellaneous Notes* Telephone Encounter - Omer Cowan RN - 09/12/2024 9:31 AM EDT Faxed US pelvic results to attn: Samara/nurse, [facility], per patient request. documented in this encounterCinc[facility]04-08-2025 NoteHNO ID: [id number] Author: LATONIA GRAY MD Service: ? Author Type: Physician Type: Progress Notes Filed: 09/11/2024 23:10 Note Text: The patient presents for requested ultrasound. Full report available in the Imaging tab in [employer]. Latonia Gray [facility]04-08-2025 History of Present illness Narrative* Latonia Gray MD - 09/10/2024 11:01 PM EDT The patient presents for requested ultrasound. Full report available in the Imaging tab in [employer]. Latonia Gray MD documented in this encounterCinc[facility]04-03-2025 History of Present illness Narrative* Marina Snell, DENISSE.BLOW UP OPERATOR - 09/05/2024 7:00 AM EDT Que Sanchez is a 34 year old female who presents for problem visit 2nd opinion uterine cyst/polyp HPI: Tubal reversal 08/29/2024 in [place] - brings records with her. Was previously told thatkiley had a cyst in her uterus but now sent message on portal from [employer] that she has a uterine polypthat should be removed as it could cause miscarriage. US report as below - indicates cyst. She doeshave known adenomyosis. She would like second opinion as she does would like to achieve and was told that it was most likely soon after tubal reversal. LMP 09/04/2024 Study: Pelvic w/ Transvaginal Date of Exam: 08/21/24 Exam# [id number] Ordering Dr: Melissa Brasher DO EXAM: US [...] Living4 SAB0 IAB0 Ectopic0 Multiple0 Live Births4 Physical Medicine Teacher History LMP: 10/03/2023 (Approximate), Age at Menarche: Age at First : Age at Menopause: Physical Medicine Teacher History Comments: Sexual Activity: Yes; Male; Nuvaring [...] EGD LAPAROSCOPY SURG CHOLECYSTECTOMY 09/14/2009 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)_*[place] 09/09/2015 SVT ABLATION 05/2015 procedure was [...] Level: 4 - Moderate documented in this encounterCinc[facility]04-03-2025 NoteHNO ID: [id number] Author: MARINA SNELL APRN.CNP Service: ? Author Type: Nurse Practitioner Type: Progress Notes Filed: 09/05/2024 08:06 Note Text: Que Sanchez is a 34 year old female who presents for problem visit 2nd opinion uterine cyst/polyp HPI: Tubal reversal 08/29/2024 in [place] - brings records with her. Was previously told that she had a cyst in her uterus but now sent message on portal from [employer] that she has a uterine polyp that should be removed as it could cause miscarriage. US report as below - indicates cyst. She does have known adenomyosis. She would like second opinion as she does would like to achieve and was told that it was most likely soon after tubal reversal. LMP 09/04/2024 Study: Pelvic w/ Transvaginal Date of Exam: 08/21/24 Exam# [id number] Ordering Dr: Melissa Brasher DO EXAM: US [...] Living4 SAB0 IAB0 Ectopic0 Multiple0 Live Births4 Physical Medicine Teacher History LMP: 10/03/2023 (Approximate), Age at Menarche: Age at First : Age at Menopause: Physical Medicine Teacher History Comments: Sexual Activity: Yes; Male; Nuvaring [...] EGD LAPAROSCOPY SURG CHOLECYSTECTOMY 09/14/2009 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)_*[place] 09/09/2015 SVT ABLATION 05/2015 procedure was [...] Medication Sig gabapentin (NEURO (more content not included)...[facility] 08-21-2024 Radiology Diagnostic study note [facility] Imaging Services [address] [place] [address] Pelvic w/ Transvaginal MR#: [id number] Acct: [id number] Name: QUE SANCHEZ Rep #: [id number] : 1990 F 34 From: Alicja Pearson MD PCP: Dr. Davide Chao MD Status: RE G CLI Study:Pelvic w/ Transvaginal Date of Exam: 08/21/24 Exam# [id number] Ordering Dr: Melissa Mcneill DO EXAM: US [...] evaluation with MRI is recommended. Reading Location: [facility] CC: Dr. Melissa Brasher DO; Dr. Davide Chao MD ~ Service Secretary: Signed [facility]03-17-2025 NotePap Smear Specimen AdequacyMarch 2024 11:59pmComment.Satisfactory for evaluation. Endocervical and/or squamous metaplasticcells (endocervical component)are present.[facility] INTER[facility]ED A#[id number] Regional Medical CenterComment on above:Satisfactory for evaluation. Endocervical and/or squamous metaplasticcells (endocervical component)are present.08-19-2024 NotePap Smear Specimen AdequacyMarch 2024 11:59pmComment.Satisfactory for evaluation. Endocervical and/or squamous metaplasticcells (endocervical component)are present.[facility] A#[id number] Regional Medical CenterComment on above:Satisfactory for evaluation. Endocervical and/or squamous metaplasticcells (endocervical component)are present.08-19-2024 Evaluation note* Diagnosis Onset Date Resolution Status Admit Date Postcoital bleeding acute August 19, 2024 2:42pm [facility] Work Phone: [phone] Telephone encounter Note* Telephone Encounter - Natalie Turpin RN - 08/15/2024 4:10 PM EDT Pt called and is notified of providers results and instructions. Pt voices understanding. Natalie Turpin RN [facility]03-13-2025 Miscellaneous Notes* Telephone Encounter - Natalie Turpin [...] needs called with information documented in this encounterCinc[facility]03-13-2025 Telephone encounter Note * Telephone Encounter - [...] iron and folate levels. Davide Chao MD [facility]03-12-2025 Telephone encounter Note* Telephone Encounter - Mamie Paul RN - 08/14/2024 3:32 PM EDT patient is calling in requesting results of lab work the was completed on 08/12. patient is also asking if she can get an order for iron and folic acid levels to be checked also. please review and advise patient needs called with information [facility]03-10-2025 Telephone encounter Note* Telephone Encounter - Vera Lewis MA - 08/12/2024 4:36 PM EDT See [employer] message. Not sure what this is. Wanted to follow up. Online it says I could be anemic or have low oxygen? Other tests are normal. I've been having issues with my breathing for about a week or so, but my meters never read below 96. Probably from vaping. Just wanted to check with you ! [facility]03-10-2025 Miscellaneous Notes* Telephone Encounter - Vera Lewis MA - 08/12/2024 4:36 PM EDT See [employer] message. Not sure what this is. Wanted to follow up. Online it says I could be anemic or have low oxygen? Other tests are normal. I've been having issues with my breathing for about a week or so, but my meters never read below 96. Probably from vaping. Just wanted to check with you ! documented in this encounterCincinnati [facility]03-04-2025 History of Present illness Narrative* Davide Chao [...] visit. Either the patient or their legal advertising representative has been informed of the risks and benefits of -- and alternatives to -- treatment through a remote evaluation andconsents to proceed with the evaluation remotely. Pt sent in a [employer] message back on 07/29/24 asking for a full blood work up due to having reverse tubal surgery in the next couple months. She wanted to make sure everything was normal with kidney, liver, and heart. Lab orders have been placed. MACHINIST WOOD placed orders for other testing. Main concern [...] and works with her. Also has a Warehouse Assistant, which she feels the Warehouse Assistant is more helpful. Was started on [...] EGD LAPAROSCOPY SURG CHOLECYSTECTOMY 09/14/2009 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)_*FL 09/09/2015 SVT ABLATION 05/2015 procedure was [...] done Influenza Vaccine(1) due on 02/04/2024 Covid-19 Vaccine() Never done Cervical Cancer Screening due on [...] prn Davide Chao MD documented in this encounterCincinnati [facility]03-04-2025 NoteHNO ID: [id number] Author: DAVIDE CHAO MD Service: ? Author [...] visit. Either the patient or their legal advertising representative has been informed of the risks and benefits of -- and alternatives to -- treatment through a remote evaluation and consents to proceed with the evaluation remotely. Pt sent in a [employer] message back on 07/29/24 asking for a full blood work up due to having reverse tubal surgery in the next couple months. She wanted to make sure everything was normal with kidney, liver, and heart. Lab orders have been placed. MACHINIST WOOD placed orders for other testing. Main concern [...] and works with her. Also has a Warehouse Assistant, which she feels the Warehouse Assistant is more helpful. Was started on [...] EGD LAPAROSCOPY SURG CHOLECYSTECTOMY 09/14/2009 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)_*FL 09/09/2015 SVT ABLATION 05/2015 procedure was [...] ALLERGIES Allergen Reactions Cough (more content not included)...[facility]01-06-2025 History of Present illness Narrative* Davide Chao [...] a really bad attack so had to lug breaker and wire puller to the side off road for [...] a licensed counselor and works with her briar wood sorter which she feels the briar wood sorter is more helpful. Follows with Cardiology due to hx of arrhythmia, has taken Metoprolol 25 mg daily. No refills lately. She has talked to her switch house operator about this but has not wanted to [...] EGD LAPAROSCOPY SURG CHOLECYSTECTOMY 09/14/2009 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)_*FL 09/09/2015 SVT ABLATION 05/2015 procedure was [...] done Influenza Vaccine(1) due on 02/04/2024 Covid-19 Vaccine(1 - 2023- season) Never done Cervical Cancer [...] independently gathered by the clinical product support rep and the remaining scribed note accurately describes [...] PM. Vera Lewis MA documented in this encounterCincinnati [facility]01-06-2025 NoteHNO ID: [id number] Author: DAVIDE CHAO MD Service: ? 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 Follows with Cardiology due to hx of arrhythmia, has taken Metoprolol 25 mg daily. No refills lately. She has talked to her switch house operator about this but has not wanted to [...] EGD LAPAROSCOPY SURG CHOLECYSTECTOMY 09/14/2009 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)_*FL 09/09/2015 SVT ABLATION 05/2015 procedure was [...] No Known Problems [employer] (more content not included)...[facility]01-06-2025 Evaluation note* Diagnosis Onset Date Resolution Status Admit Date Inclusion cyst of vulva noneactive J anuary 2024 1:49pm Vaginal odor noneactive June 10, 2024 1:49pm Postcoital bleeding acute August 19, 2024 2:42pm [facility] Work Phone: 1(893) 966-435110-25-2024 History of Present illness Narrative* Davide Chao [...] office setting and agrees. Pt was at [place] [facility] with complaints of chest pain. Pt was seen at the ED for complaints of chest pain, cardiac work up was negative. Pt wrote into the office asking for advice. Notes that she's beenchoking on every single meal that she eats for the last few weeks, but worse recently. Did some research on this issues. Hx of being diagnosed in [place] with eosinophilic esophagitis. Reports this has been [...] EGD LAPAROSCOPY SURG CHOLECYSTECTOMY 09/14/2009 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)_*FL 09/09/2015 SVT ABLATION 05/2015 procedure was [...] Influenza Vaccine(1) due on 02/04/2024 Covid-19 Vaccine( season) Never done Cervical Cancer Screening due [...] prn Davide Chao MD documented in this encounterCincinnati [facility]10-25-2024 NoteHNO ID: [id number] Author: DAVIDE CHAO MD Service: ? Author [...] office setting and agrees. Pt was at [place] [facility] with complaints of chest pain. Pt was seen at the ED for complaints of chest pain, cardiac work up was negative. Pt wrote into the office asking for advice. Notes that she's been choking on every single meal that she eats for the last few weeks, but worse recently. Did some research on this issues. Hx of being diagnosed in [place] with eosinophilic esophagitis. Reports this has been [...] Scan on 03/29/2024 8:42 AM by Provider, ExternalADIA: Consultation - Emergency Medicine Diagnosed with eosinophilic [...] EGD LAPAROSCOPY SURG CHOLECYSTECTOMY 09/14/2009 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)_*FL 09/09/2015 SVT ABLATION 05/2015 procedure was [...] daily. No current facility-administered (more content not included)...[facility]10-22-2024 Telephone encounter Note* Telephone Encounter - Yue Genao MA - 03/26/2024 10:26 AM EDT Pt has been notified that she needs to see an MEDICAL PHYSICS PROFESSOR if appt is not available. PCP is out multiple daysthis month, with limited scheduling. After further review pt is scheduled for a VV Monday. Yue Genao MA [facility]10-22-2024 Miscellaneous Notes* Telephone Encounter - Yue Genao MA - 03/26/2024 10:26 AM EDT Pt has been notified that she needs to see an MEDICAL PHYSICS PROFESSOR if appt is not available. PCP is [...] year. Yue Genao MA documented in this encounterCincinnati [facility]10-22-2024 Telephone encounter Note * Telephone Encounter - Yue Genao MA - 03/26/2024 9:39 AM EDT Advised pt that she needs an appt to discuss as this has not been discussed previously over the past year. Yue Genao MA [facility]10-18-2024 Hospital Discharge instructions Patient Education 03/22/2024 15:37:05 [...] Swelling, pain or redness in one leg [id number] [employer]. [address] [place] [address]. All rights reserved. This information is not intended as a substitute for professional medical care. Always follow yourhealthcare professional's instructions. Follow Up Care 03/22/2024 14:31:02 With:DAVIDE CHAO MD Address: [address] [place] [address]- When:2-4 days [facility] 10-18-2024 Telephone encounter Note* Telephone Encounter - Davide Chao MD - 03/22/2024 5:06 PM EDT Noted Davide Chao MD [facility]10-18-2024 Miscellaneous Notes* Telephone Encounter - Davide Chao MD - 03/22/2024 5:06 PM EDT Noted Davide Chao MD * Telephone Encounter - Latanya Tam LPN - 03/22/2024 1:32 PM EDT Pt. calling from [facility] with Chest pain wanting appt today with provider. Advised Pt. she should talk to the MD that she is seeing at the Er. She states they probably won't help me. I offered her Er follow up next week and refused. documented in this encounterCincinnati [facility]10-18-2024 NoteDischarge Instructions Discharge Summary [address] [address] [id number] 03/22/2024 Patient: QUE SANCHEZ Sex: Female : 1990 Age: 33y Thank you for visiting [facility]. You have been evaluated today by [...] Causes of Chest Pain Patient Signature Facility Luggage Repairer Date/Time 1 of 4 Discharge Instructions General Instructions with ExitWriter [address] [address] [id number] 03/22/2024 Patient: QUE SANCHEZ Sex: Female : 1990 Age: 33y Thank you for visiting [facility]. You have been evaluated today by [...] Swelling, pain or redness in one leg [address] [place], [place] [address]10-18-2024 Note Discharge Instructions Thank you for allowing [facility] to assist you with your healthcare needs. The following is importantdischarge information regarding your hospital visit. What to Do Next Instructions from Your Care Team No qualifying data available. Post Acute Orders No qualifying data available. You Need to Schedule the Following Appointments Follow Up with DAVIDE CHAO MD When:Within 2-4 days Where:[address] [place] [address]- Allergies No Known Medication Allergies Medications Please ask your primary doctor or pharmacist before taking any other medication not listed, including over the counter drugs, herbal medications, vitamins and or supplements as they may interact with[facility] medications. What How Much When Why [...] Swelling, pain or redness in one leg [phone] [employer]. [address] [place] [address]. All rights reserved. This information is not intended as a substitute for professional medical care. Always follow yourhealthcare professional's instructions. Additional Information VACCINATE! IT SAVES LIVES! Members of the community who have not yet received the COVID-19 vaccine and would like to receive it can visit one of [facility] vaccine clinics. There are many vaccine clinic locations within the [facility]. For locations and available times, please visit www.[email or web address].[place].gov/. It is important to note that some COVID mobile vaccine clinics are held outdoors and may be canceled in rainy or stormy conditions. To learn more about pediatric vaccinations (ages 5-11), we invite you to visit the [facility] webpage. https://www.[email or web address]/pages/[email or web address]-Bxnqb-[email or web address]-[email or web address] stions.htmlTo learn more about the COVID-19 vaccine, we invite you to visit the CDC website for a list of frequently asked questions. https://www.cdc.gov/coronavirus/2019-ncov/vaccines/faq.html [facility] Patient Portal Access Instructions: Stay connected with your healthcare team and access your personal medical information anytime with the [facility] Patient Portal. If you would like a full copy of your medical records please contact the [facility] Medical Records Department Monday through Monday between 8a.m. and 4:30p.m. Please follow the directions below to access the portal: 1.Access the email account you provided upon registration to the [facility].2.Look for an invitation email from [facility].3.Open the email and access the invitation link: Accept Invitation to [facility]4.Fill in the required coughlin to create your account. Sign into www.[employer] with your username and password that you [...] you will allow to register on the [facility] Patient Portal for access to your information. You can also access the [facility] Patient Portal on the [employer] shell. Simply click on Health Records under [employer] and then click on the [facility] logo. [...] Call your local pharmacy or go to http://bit.[employer]/8U9Vt6m to find one close to you.3.Make use of household items: Use cat litter or old coffee grounds to dispose medications if other options arenot available. Mix your drugs with these household products, seal them in an airtight container andthrow it into the garbage. Call [facility]: [phone] to be sure your drugs can be [...] aware that I should contact my doctor. Patient/Luggage Repairer Signature: Date/Time: Relationship to Patient: Witness Name/Signature: Date/Time: [facility]10-18-2024 NoteSinus rhythm Electronic Signature: RAMON PULLIAM MD 03/22/2024 15:00:23[facility] 10-18-2024 Telephone encounter Note* Telephone Encounter - Latanya Tam LPN - 03/22/2024 1:32 PM EDT Pt. calling from [facility] with Chest pain wanting appt today with provider. Advised Pt. she should talk to the MD that she is seeing at the Er. She states they probably won't help me. I offered her Er follow up next week and refused. [facility] Work Phone: [phone]) [phone] Miscellaneous Notes* Telephone Encounter - Harini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 Up: No follow-up provider specified. Additional Information: Patient instructions, including activity, were given to the patient/family at discharge. Please seethe After Visit Summary in the electronic medical record for details. Time spent on discharge: > 30 minutes Completed by: Alexandria Diaz MD on 09/26/20, 9:21 PM documented in this [id number] History of Past illness Narrative* Problem Noted Date Resolved Date Uterine size-date discrepancy 07/04/2016 Overview: July 04, 2016 [facility] ordered Yuri Crenshaw MD Tobacco [...] states that her last menstrual period was desk lieutenant than normal, and she is uncertain of [...] she was treated one month ago at [facility] emergency room for a urinary [...] of this encounter (statuses as of 11/29/2021) [facility] History of Past illness Narrative* Problem Noted Date Resolved Date Uterine size-date discrepancy 07/04/2016 Overview: July 04, 2016 [facility] ordered Yuri Crenshaw MD Tobacco [...] states that her last menstrual period was desk lieutenant than normal, and she is uncertain of [...] she was treated one month ago at [facility] emergency room for a urinary [...] of this encounter (statuses as of 11/29/2021) [facility] History of Past illness Narrative* Problem Noted Date Resolved Date Uterine size-date discrepancy 07/04/2016 Overview: July 04, 2016 [facility] ordered Yuri Crenshaw MD Tobacco [...] states that her last menstrual period was desk lieutenant than normal, and she is uncertain of [...] she was treated one month ago at [facility] emergency room for a urinary [...] of this encounter (statuses as of 03/03/2022) [facility] of Past illness Narrative* Problem Noted [...] states that her last menstrual period was desk lieutenant than normal, and she is uncertain of [...] she was treated one month ago at [facility] emergency room for a urinary [...] ation of other contraceptive measures 06/08/2011 03/28/2013 [facility] [V23.89] 0 06/08/2011 Supervision of other high-risk (V23.89) 02/19/2008 02/25/2008 documented as of this encounter (statuses as of 03/04/2022) [facility] History of Past illness Narrative* Problem Noted [...] states that her last menstrual period was desk lieutenant than normal, and she is uncertain of [...] she was treated one month ago at [facility] emergency room for a urinary [...] of this encounter (statuses as of 06/21/2022) [facility] of Past illness Narrative* Problem Noted Date Resolved Date Uterine size-date discrepancy 07/04/2016 Overview: July 04, 2016 [facility] ordered Yuri Crenshaw MD Tobacco [...] states that her last menstrual period was desk lieutenant than normal, and she is uncertain of [...] she was treated one month ago at [facility] emergency room for a urinary [...] of this encounter (statuses as of 10/11/2022) [facility] History of Past illness Narrative* Problem Noted Date Diagnosed Date Resolved Date Uterine size-date discrepancy 07/04/2016 08/10/2016 Overview: July 04, 2016 [facility] ordered Yuri Crenshaw MD Tobacco [...] deliver at term. TKRN Anesthesia complication 12/01/2015 03/06/2016 Overview: Pt requesting anesthesia consult HPV (human [...] states that her last menstrual period was desk lieutenant than normal, and she is uncertain of [...] she was treated one month ago at [facility] emergency room for a urinary [...] ation of other contraceptive measures 06/08/2011 03/28/2013 [facility] HIGH RISK NEC [V23.89] 05/25/2010 06/08/2011 Supervision of other high-ri sk (V23.89) 02/19/2008 02/25/2008 documented as of this encounter (statuses as of 01/27/2023) [facility] of Past illness Narrative* Problem Noted [...] states that her last menstrual period was desk lieutenant than normal, and she is uncertain of [...] she was treated one month ago at [facility] emergency room for a urinary [...] of this encounter (statuses as of 01/31/2023) [facility] of Past illness Narrative* Problem Noted Date Diagnosed Date Resolved Date Uterine size-date discrepancy 07/04/2016 08/10/2016 Overview: July 04, 2016 [facility] ordered Yuri Crenshaw MD Tobacco [...] of other normal 11/30/2011 11/30/2011 High-risk 11/30/2011 10/24/20 13 Overview: November 30, 2011 PAS done with uncertain dates 11/09/2011 04/25/2012 Overview: She states that her last menstrual period was desk lieutenant than normal, and she is uncertain of [...] she was treated one month ago at [facility] emergency room for a urinary [...] of this encounter (statuses as of 03/28/2023) [facility] of Past illness Narrative* Problem Noted Date Diagnosed Date Resolved Date Uterine size-date discrepancy 07/04/2016 08/10/2016 Overview: July 04, 2016 [facility] ordered Yuri Crenshaw MD Tobacco [...] deliver at term. TKRN Anesthesia complication 12/01/2015 03/06/2016 Overview: Pt requesting anesthesia consult HPV (human [...] states that her last menstrual period was desk lieutenant than normal, and she is uncertain of [...] she was treated one month ago at [facility] emergency room for a urinary [...] of this encounter (statuses as of 04/08/2023) [facility] of Past illness Narrative* Problem Noted Date Diagnosed Date Resolved Date Uterine size-date discrepancy 07/04/2016 08/10/2016 Overview: July 04, 2016 [facility] ordered Yuri Crenshaw MD Tobacco [...] states that her last menstrual period was desk lieutenant than normal, and she is uncertain of the date of her last menstrual period. Discussed with Dr. Melsisa Vang. Ultrasound ordered by Dr. Vang for [...] she was treated one month ago at [facility] emergency room for a urinary [...] of this encounter (statuses as of 05/09/2023) [facility] of Past illness Narrative* Problem Noted Date Diagnosed Date Resolved Date Uterine size-date discrepancy 07/04/2016 08/10/2016 Overview: July 04, 2016 [facility] ordered Yuri Crenshaw MD Tobacco [...] states that her last menstrual period was desk lieutenant than normal, and she is uncertain of [...] she was treated one month ago at [facility] emergency room for a urinary [...] of this encounter (statuses as of 07/11/2023) [facility] of Past illness Narrative* Problem Noted Date Diagnosed Date Resolved Date Uterine size-date discrepancy 07/04/2016 08/10/2016 Overview: July 04, 2016 [facility] ordered Yuri Crenshaw MD Tobacco [...] deliver at term. TKRN Anesthesia complication 12/01/2015 0306/2016 Overview: Pt requesting anesthesia consult HPV (human [...] states that her last menstrual period was desk lieutenant than normal, and she is uncertain of [...] she was treated one month ago at [facility] emergency room for a urinary [...] of this encounter (statuses as of 08/10/2023) [facility] of Past illness Narrative* Problem Noted Date Diagnosed Date Resolved Date Uterine size-date discrepancy 07/04/2016 08/10/2016 Overview: July 04, 2016 [facility] ordered Yuri Crenshaw MD Tobacco [...] deliver at term. TKRN Anesthesia complication 12/01/2015 03/06/2016 Overview: Pt requesting anesthesia consult HPV (human [...] states that her last menstrual period was desk lieutenant than normal, and she is uncertain of [...] she was treated one month ago at [facility] emergency room for a urinary [...] of this encounter (statuses as of 08/11/2023) [facility] Author Melissa Saxena [facility] October 03, 2023 7:26am Note Date/Time October 03, 2023 7:2 6am [facility] Medical Records Department [address] [place] [address] Instructions for Home/Discharge Instructions 10/03/23725 MR#: [id number] Acct: [id number] Name: QUE BAILEY Rep #:[id number] : 1990 33 From: Melissa Brasher DO PCP: Dr. Davide Chao MD Status:[facility] Discharge Instructions Diet Discharge Diet: No restrictions [...] Up With: Melissa Brasher DO When: Call [phone] to schedule appointment. Test Results: Test results [...] CC: Dr. Davide Chao MD ~ Signed [facility] Work Phone: Evaluation + Plan note No data available for this section [facility] Evaluation note* Diagnosis Right sided weakness- Primary documented in this encounter [facility] note* Diagnosis Left against medical advice- Primary Blurred vision Other specified visual disturbances documented in this encounter [facility] note* Diagnosis Palpitations- Primary documented in this encounter [facility] note* Cardiovascular: S1 S2 RRR, no murmursExtremities: no calf tenderness, reflexes 2+Constitutional: alert, orientedRespiratory/Thorax: normal respiratory effort, lungs clear, no wheezes or rhonchi [facility]* Diagnosis Non-recurrent acute suppurative otitis media of left ear without spontaneous rupture of tympanic membrane- Primary documented in this encounter [facility] note* Diagnosis Anxiety Anxiety state, unspecified documented in this encounter [facility] note* Diagnosis Anxiety with depression- Primary documented in this encounter [facility] note* Diagnosis Chronic insomnia- Primary Insomnia, unspecified Anxiety with depression Gastritis without bleeding, unspecified chronicity, unspecified gastritis type documented in this encounter [facility] note* Diagnosis Back strain, initial encounter- Primary documented in this encounter [facility] [employer] Work Phone: evaluation note* Diagnosis Acute bilateral low back pain with right-sided sciatica , unspecified gestational age documented in this encounter [employer] Phone: evaluation note* Diagnosis , unspecified gestational age documented in this encounter [employer] Phone: evaluation noteNo assessment information available [facility] Work Phone: Evaluation note* Diagnosis Onset Date Resolution Status Depression affecting acute Herpes simplex infection during , antepartum acute [id number] acute History of pre-eclampsia acu te acute Rh negative status during acute Spotting acute Supervision of high risk , antepartum acute [facility] Work Phone: Evaluation note* Diagnosis Onset Date Resolution Status Depression affecting acute Herpes simplex infection during , antepartum acute [id number] acute History of pre-eclampsia acu te acute Rh negative status during acute Spotting acute Supervision of high risk , antepartum acute Depression affecting acute Herpes simplex infection during , antepartum acute [id number] acute History of pre-eclampsia acu te acute Rh negative status during acute Spotting acute Supervision of high risk , antepartum acute [facility] Work Phone: Evaluation note* Diagnosis History of PSVT (paroxysmal supraventricular tachycardia)- Primary Personal history of other diseases of circulatory system Chronic bilateral low back pain with left-sided sciatica documented [facility] this encounter [facility]* Diagnosis Tachycardia Tachycardia, unspecified Near syncope Syncope and collapse Dizziness and giddiness [facility] Onset Date Resolution Status Depression affecting acute Herpes simplex infection during , antepartum acute [id number] acute History of pre-eclampsia acu te acute Rh negative status during acute Spotting acute Supervision of high risk , antepartum acute Depression affecting acute Herpes simplex infection during , antepartum acute [id number] acute History of pre-eclampsia acu te acute Rh negative status during acute Spotting acute Supervision of high risk , antepartum acute Depression affecting acute Herpes simplex infection during , antepartum acute [id number] acute History of pre-eclampsia acu te acute Rh negative status during acute Spotting acute Supervision of high risk , antepartum acute [facility] Work Phone: Evaluation note* Diagnosis Onset Date Resolution Status Depression affecting acute Herpes simplex infection during , antepartum acute [id number] acute History of pre-eclampsia acu te acute Rh negative status during acute Spotting acute Supervision of high risk , antepartum acute Depression affecting acute Herpes simplex infection during , antepartum acute [id number] acute History of pre-eclampsia acu te acute Rh negative status during acute Spotting acute Supervision of high risk , antepartum acute Rh negative status during acute Depression affecting acute Herpes simplex infection during , antepartum acute [id number] acute History of pre-eclampsia acu te acute Rh negative status during acute Spotting acute Supervision of high risk , antepartum acute Chronic headache chronic Arthritis pain, hip acute Depression affecting acute Herpes simplex infection during , antepartum acute [id number] acute History of pre-eclampsia acu te acute Rh negative status during acute Sciatic leg pain acute Supervision of high risk , antepartum acute Chronic headache chronic Abnormal glucose acute Back pain acute Depression affecting acute Herpes simplex infection during , antepartum acute [id number] acute History of pre-eclampsia acu te acute Rh negative status during acute Supervision of high risk , antepartum acute Vaginal discharge during acute Chronic headache chronic UTI in acute [facility] Work Phone: Evaluation note* Diagnosis STD (sexually transmitted disease)- Primary Venereal disease, unspecified [facility] in this encounter [facility] Diagnosis Onset Date Resolution Status Depression affecting acute Herpes simplex infection during , antepartum acute [id number] acute History of pre-eclampsia acu te acute Rh negative status during acute Spotting acute Supervision of high risk , antepartum acute Rh negative status during acute Depression affecting acute Herpes simplex infection during , antepartum acute [id number] acute History of pre-eclampsia acu te acute Rh negative status during acute Spotting acute Supervision of high risk , antepartum acute Chronic headache chronic Arthritis pain, hip acute Depression affecting acute Herpes simplex infection during , antepartum acute [id number] acute History of pre-eclampsia acu te acute Rh negative status during acute Sciatic leg pain acute Supervision of high risk , antepartum acute Chronic headache chronic Abnormal glucose acute Back pain acute Depression affecting acute Herpes simplex infection during , antepartum acute [id number] acute History of pre-eclampsia acu te acute Rh negative status during acute Supervision of high risk , antepartum acute Vaginal discharge during acute Chronic headache chronic UTI in acute [facility] Work Phone: Evaluation note* Diagnosis Onset Date Resolution Status Depression affecting acute Herpes simplex infection during , antepartum acute [id number] acute History of pre-eclampsia acu te acute Rh negative status during acute Spotting acute Supervision of high risk , antepartum acute Rh negative status during acute Depression affecting acute Herpes simplex infection during , antepartum acute [id number] acute History of pre-eclampsia acu te acute Rh negative status during acute Spotting acute Supervision of high risk , antepartum acute Chronic headache chronic Arthritis pain, hip acute Depression affecting acute Herpes simplex infection during , antepartum acute [id number] acute History of pre-eclampsia acu te acute Rh negative status during acute Sciatic leg pain acute Supervision of high risk , antepartum acute Chronic headache chronic Abnormal glucose acute Back pain acute Depression affecting acute Herpes simplex infection during , antepartum acute [id number] acute History of pre-eclampsia acu te acute [...] Herpes simplex infection during , antepartum acute [id number] acute History of pre-eclampsia acu te Hx [...] Herpes simplex infection during , antepartum acute [id number] acute History of pre-eclampsia acu te Hx of cholecystectomy acute Hypokalemia acute acute Pruritus of acute Rh negative status during acute Sciatic leg pain acute Spotting acute Supervision of high risk , antepartum acute Vaginal discharge during acute Chronic headache chronic [facility] Work Phone: Evaluation note* Diagnosis Onset Date Resolution Status Rh negative status during acute Depression affecting acute Herpes simplex infection during , antepartum acute [id number] acute History of pre-eclampsia acu te acute Rh negative status during acute Spotting acute Supervision of high risk , antepartum acute Chronic headache chronic Arthritis pain, hip acute Depression affecting acute Herpes simplex infection during , antepartum acute [id number] acute History of pre-eclampsia acu te acute Rh negative status during acute Sciatic leg pain acute Supervision of high risk , antepartum acute Chronic headache chronic Abnormal glucose acute Back pain acute Depression affecting acute Herpes simplex infection during , antepartum acute [id number] acute History of pre-eclampsia acu te acute [...] Herpes simplex infection during , antepartum acute [id number] acute History of pre-eclampsia acu te Hx [...] Herpes simplex infection during , antepartum acute [id number] acute History of pre-eclampsia acu te Hx of cholecystectomy acute Hypokalemia acute acute Pruritus of acute Rh negative status during acute Sciatic leg pain acute Spotting acute Supervision of high risk , antepartum acute Vaginal discharge during acute Chronic headache chronic [facility] Work Phone: Evaluation note* Diagnosis Onset Date Resolution Status Rh negative status during acute Depression affecting acute Herpes simplex infection during , antepartum acute [id number] acute History of pre-eclampsia acu te acute Rh negative status during acute Supervision of high risk , antepartum acute Chronic headache chronic Spotting resolved Depression affecting acute Herpes simplex infection during , antepartum acute [id number] acute History of pre-eclampsia acu te acute Rh negative status during acute Supervision of high risk , antepartum acute Chronic headache chronic Arthritis pain, hip resolved Sciatic leg pain resolved Abnormal glucose acute Depression affecting acute Herpes simplex infection during , antepartum acute [id number] acute History of pre-eclampsia acu te acute [...] Herpes simplex infection during , antepartum acute [id number] acute History of pre-eclampsia acu te acute [...] Herpes simplex infection during , antepartum acute [id number] acute History of pre-eclampsia acu te acute [...] Herpes simplex infection during , antepartum acute [id number] acute History of pre-eclampsia acu te acute Rh negative status during acute Social discord acute Sterilization acute Supervision of high risk , antepartum acute Chronic headache chronic Hypokalemia resolved Pruritus of resolv ed [facility] Work Phone: Evaluation note* Diagnosis Hypertension, unspecified type- Primary induced hypertension, antepartum Transient hypertension of , antepartum documented in this encounter [facility] Work Phone: Evaluation note* Diagnosis Onset Date Resolution Status Chronic headache resolved Depression affecting resolved Herpes simplex infection during , antepartum resolved [id number] resolved History of pre-eclampsia res olved resolved Rh negative status during resolved Spotting resolved Supervision of high risk , antepartum resolved Arthritis pain, hip resolved Chronic headache resolved Depression affecting resolved Herpes simplex infection during , antepartum resolved [id number] resolved History of pre-eclampsia res olved resolved Rh negative status during resolved Sciatic leg pain resolved Supervision of high risk , antepartum resolved Abnormal glucose resolved Back pain resolved Chronic headache resolved Depression affecting resolved Herpes simplex infection during , antepartum resolved [id number] resolved History of pre-eclampsia res olved resolved [...] Herpes simplex infection during , antepartum resolved [id number] resolved History of pre-eclampsia res olved Hypokalemia [...] Herpes simplex infection during , antepartum resolved [id number] resolved History of pre-eclampsia res olved Hypokalemia resolved resolved Pruritus of resolv ed Rh negative status during resolved Sciatic leg pain resolved Spotting resolved Supervision of high risk , antepartum resolved Vaginal discharge during resolved Abnormal glucose resolved Chlamydia infection affecting resolved Chronic headache resolved Depression affecting resolved Elevated bilirubin resolved Herpes simplex infection during , antepartum resolved [id number] resolved History of pre-eclampsia res olved Hypokalemia resolved resolved Pruritus of resolv ed Rh negative status during resolved Social discord resolved Sterilization resolved Supervision of high risk , antepartum resolved False labor after 37 completed weeks of gestation resolved Abnormal glucose resolved Chlamydia infection affecting resolved Chronic headache resolved Depression affecting resolved Elevated bilirubin resolved Herpes simplex infection during , antepartum resolved [id number] resolved History of pre-eclampsia res olved resolved Rh negative status during resolved Social discord resolved Sterilization resolved Supervision of high risk , antepartum resolved Abnormal glucose resolved Chlamydia infection affecting resolved Chronic headache resolved Depression affecting resolved Elevated bilirubin resolved Herpes simplex infection during , antepartum resolved [id number] resolved History of pre-eclampsia res olved resolved Rh negative status during resolved Social discord resolved Sterilization resolved Supervision of high risk , antepartum resolved Status post tubal ligation a cute Abnormal glucose resolved Chlamydia infection affecting resolved Chronic headache resolved Depression affecting resolved Elevated bilirubin resolved Herpes simplex infection during , antepartum resolved [id number] resolved History of pre-eclampsia res olved resolved [...] abnormal blood chemistry [facility] this [facility]* Diagnosis Lower abdominal pain, unspecified Antepartum hemorrhage, unspecified, second trimester Maternal care for other rhesus isoimmunization, second trimester, not applicable or unspecified 21 weeks gestation of documented in this encounter [facility] Work Phone: Evaluation note* Diagnosis Anxiety Anxiety state, unspecified documented [facility] this encounter [facility]* Diagnosis Near syncope Syncope and collapse Tachycardia Tachycardia, unspecified [facility] Diagnosis Vaginal bleeding- Primary Other specified noninflammatory disorder of vagina documented in this encounter [facility] Work Phone: Evaluation note* Diagnosis Near syncope- Primary Syncope and collapse [facility] Diagnosis Onset Date Resolution Status Abnormal glucose resolved Chlamydia infection affecting resolved Chronic headache resolved Depression affecting resolved Elevated bilirubin resolved Herpes simplex infection dur ing , antepartum resolved [id number] resolved History of pre-eclampsia res olved resolved Rh negative status during resolved Social discord resolved Sterilization resolved Supervision of high risk , antepartum resolved Abnormal glucose resolved Chlamydia infection affecting resolved Chronic headache resolved Depression affecting resolved Elevated bilirubin resolved Herpes simplex infection dur ing , antepartum resolved [id number] resolved History of pre-eclampsia res olved resolved Rh negative status during resolved Social discord resolved Sterilization resolved Supervision of high risk , antepartum resolved Abnormal glucose resolved Chlamydia infection affecting resolved Chronic headache resolved Depression affecting resolved Elevated bilirubin resolved Herpes simplex infection dur ing , antepartum resolved [id number] resolved History of pre-eclampsia res olved resolved Rh negative status during resolved Social discord resolved Sterilization resolved Supervision of high risk , antepartum resolved Vaginal delivery resolved Anxiety acute Depression acute Headache acute Menorrhagia with irregular cycle acute Possible exposure to STD non eactive Vaginal odor noneactive [facility] Work Phone: Evaluation note* Diagnosis 16 weeks gestation of state, incidental Encounter for supervision of other normal in first trimester History of herpes genitalis Personal history of other infectious and parasitic disease Anxiety Anxiety state, unspecified [facility]* Diagnosis Onset Date Resolution Status Menorrhagia with irregular cycle acute Possible exposure to STD non eactive Vaginal odor noneactive [facility] Work Phone: Evaluation note* Diagnosis Viral syndrome- Primary Unspecified viral infection, in conditions classified elsewhere and of unspecified site Urinary frequency documented in this encounter [facility] note* Diagnosis Fibromyalgia Mylagia and myositis, unspecified documented in this encounter [facility] note* Diagnosis Onset Date Resolution Status Menorrhagia with irregular cycle acute Possible exposure to STD non eactive Vaginal odor noneactive Menorrhagia with irregular cycle acute Menorrhagia with irregular cycle acute [facility] Work Phone: Evaluation note* Diagnosis Near syncope- Primary Syncope and collapse documented [facility] this [facility]* Diagnosis 16 weeks gestation of state, incidental Encounter for supervision of other normal in first trimester History of herpes genitalis Personal history of other infectious and parasitic disease documented in this encounter [facility]* Diagnosis Fibromyalgia- Primary Mylagia and myositis, unspecified Anxiety with depression Near syncope Syncope and collapse URI, acute Acute upper respiratory infections of unspecified site documented [facility] this [facility]* Diagnosis Anxiety with depression- Primary documented [facility]* Diagnosis Anxiety with depression documented [facility]* Diagnosis Eosinophilic esophagitis- Primary Anxiety with depression Dysphagia, unspecified type [facility] Diagnosis Anxiety- Primary Anxiety state, unspecified Elevated blood pressure reading without diagnosis of hypertension ADHD (attention deficit hyperactivity disorder), combined type Attention deficit disorder with hyperactivity [facility] this encounter [facility]* Diagnosis Elevated blood pressure reading without diagnosis of hypertension- Primary Fibromyalgia Mylagia and myositis, unspecified Anxiety with depression ADHD (attention deficit hyperactivity disorder), combined type Attention deficit disorder with hyperactivity [facility] this encounter [facility]* Diagnosis Fatigue, unspecified type- Primary documented in this encounter [facility]* Diagnosis Uterine cyst- Primary Other specified disorders of uterus, not elsewhere classified Adenomyosis of uterus documented in this encounter [facility]* Diagnosis Uterine cyst- Primary Other specified disorders of uterus, not elsewhere classified Adenomyosis of uterus Paratubal cyst Other noninflammatory disorder of ovary, fallopian tube, and broad ligament Intramural uterine fibroid [facility] Author Melissa Saxena [facility] October 03, 2023 7:25am Note Date/Time October 03, 2023 7:2 6am [facility] Medical Records Department [address] [place] [address] History & Physical Exam 10/03/23 0724 MR#: [id number] Acct: [id number] Name: QUE BAILEY Rep #:[id number] : 1990 33 From: Melissa Brasher DO PCP: Dr. 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 The ex is now in skilled nursing and looking at 5 years in fdc. ultrasound shows the following: TECHNIQUE: Transabdominal and [...] full term 7lbs 2oz Female [address] [facility] [address] Emilia Jung 09/07/10 Bridget 39 live - full term 7lbs 4oz Female 46 hours [facility] Satya 07/12/12 Pj 38 live - full term 7lbs 6oz Male 4 hours [facility] Lilli Piña 07/15/16 Missy 37 live - full term 7lbs 8oz Male [address] [facility] [address] Jurado 10/12/21 Edward 40 live - full term 8lbs 2oz Male Christina Rueda Will Delivery Date: 02/23/08 Last Updated by: Tameka Wallaceion Cord wrapped around neck twice and around body once. Born not breathing Delivery Date: 09/07/10 Last Updated by: Tameka Wallaceion Cord around neck x1 Delivery Date: 07/12/12 [...] Brasher DO; Dr. Davide Chao MD~ Signed [facility] Work Phone: History of Present [...] other systems reviewed and negative for complaint [facility] Work Phone: History of Present illness Narrative* arrives to outpatient PT c/o . Pt presents with the following impairments: . These impairments contribute to difficulty in activity limitations and participation restrictions including . Thept s signs and symptoms are consistent with likely . The pt will benefit from skilled PT ceynjwcj2f/week for 8 weeks to address the above stated impairments and functional limitations to maximize p articipation and ease in household, social, and work related activities. The pt has a prognosis when considering positive factors including with barriers such as . The pt verbalized understanding and agreement to goals and POC. Thank you for this referral and please call [phone] with any questions or concerns. * Clinical Presentation: Stable and/or uncomplicated characteristics. * Level of Complexity: low [facility] Work Phone: History of Present illness NarrativePatient confirmed name and date of . Patient was encouraged to mildly engage TrA contraction secondary to , focusing on core control with LE/UE exercises. No increase in pain with UE/LEexercises and reduced pain with unloading. Reviewed Kegel exercises with patient. [facility] Work Phone: Hospital Discharge instructions* Activity:Return to [...] symptoms worsen, call 911 or go to [facility]. *Information obtained from RODRIGUE s: Save Your Life: Get Care for [...] pad in <1hr, egg sized blood clots) [place]-sized blood clots are normal Bright red for [...] laxative without results, contact your doctor or roads superintendent Activity No pushing, pulling, or lifting anything [...] Sexual Activity/Pelvic Rest Pelvic rest for 6 weeks or until cleared by your OB provider. This means no sex, no tampons, no douching, no baths, pools,or hot tubs. Sitz baths are ok Contraception [...] incision. You may shower and wash your incisiongently and pat dry. Your stitches will dissolve [...] have questions about Any difficulty please call [phone] to speak with a project consultant.Please join our mom'ssupport group, which is the monday of every month from [phone] in the Birthing & Women's Unit, 4th floor [facility]. No registration required.Thank you for choosing [facility]. [facility]* Attachments The following attachments cannot be sent through Care Everywhere. * Back: Strain (Afghan) documented [facility] Work Phone: Hospital Discharge instructions Additional Instructions Follow up with [facility] on February 02 as previously scheduled. You have an appointment for a surgical consultation with Dr. Morales on February 01 at 9:45am. His office is located in the Outpatient Pavilion at [address] [place] [address], [address]. Eat potassium-rich foods when able. A prescription for a potassium supplement will be sent to your pharmacy.[facility] Work Phone: Hospital Discharge instructions Additional Instructions EKG normal your labs troponin negative. Your thyroid levels normal. Use your home Zofran as needed. Tylenol Motrin as needed. Follow-up with cardiology with your history of A-fib and ablation in the past. If you develop any recurrent worsening symptoms, return to ED for reevaluation.[facility] Work Phone: Instructions* Attachments The following attachments cannot be sent through Care Everywhere. * Otitis Media (Afghan) documented in this encounterOhioHealthReason for referral (narrative)* Consultation (Routine) - Pending Review Specialty Diagnoses / Procedures Referred By Contac t Referred To Contact Obstetrics and Gynecology Procedures UT OFFICE/OUTPATIENT NEW HIGH MDM 60-74 MINUTES Cheyanne Izaguirre, [address] [place] [address] Referral ID Status Reason Start Date Expiration Date Visits Requested Visits Authorized [id number] Pending Review Specialty Services Required 03/13/2023 09/09/2023 1 1 [facility] Work Phone: Reason for referral (narrative)No reason for referral information availableWSelect [facility] Work Phone: Reason for visit Narrative* Initial Evaluation . Low back pain/Neck pain. * Referred by: Davide Chao MD [facility] Work Phone: Reason for visit Narrative* Diagnostic Procedure Only (Routine) - Closed Specialty Diagnoses / Procedures Referred By Contac t Referred To Contact [facility] Diagnoses Uterine cyst Adenomyosis of uterus Procedures PELVIC US WHI US PELVIC NONOBSTETRIC REAL-TIME IMAGE COMPLETE Marina Snell, HIGH SCHOOL BIOLOGY TEACHER.BLOW UP OPERATOR [address] [place] [address] Phone: tel: fax: [facility] [phone] [place] [address] Referral ID Status Reason Start Date Expiration Date V isits Requested Visits Authorized [id number] Closed Auto-Generate d Referral 09/05/2024 09/05/2025 1 1 [facility] Summary Purpose Family History Unknown Family Member [...] Documents on File Type Date Recorded 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 Advance Directives and Livin g Will 09/01/2018 5:16 PM Documents on File Type Date Recorded 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 Advance Directives and Livin g Will 09/01/2018 5:16 PM Latest Code Status on File Code Status Date Activated Date Inactivated Comments Full Code - Unverified 09/26/2020 8:24 PM 09/26/2020 10: 50 PM Documents on File Type Date Recorded 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 Advance Directives and Livin g Will 09/27/2020 5:16 PM Documents on File Type Date Recorded 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 Advance Directives and Livin g Will 05/17/2021 1:51 PM Latest Code Status on File Code Status Date Activated Date Inactivated Comments Full Code - Unverified 09/26/2020 8:24 PM 09/26/2020 10: 50 PM Documents on File Type Date Recorded 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 Advance Directive(s) Advance Directive(s) 10/17/2018 [...] No September 25, 2020 3:03pm Power of Cement Mason No September 25 3:03pm Advance Directive Response Recorded Date/ Time Advance Directives No July 2:22am Living Will No September 25, 2020 4:03pm Power of Cement Mason No September 25 4:03pm Advance Directive Response Recorded Date/ Time Advance Directives No July 2:22am Living Will No January 23 3 9:45pm Power of Cement Mason No January 23, 2 023 9:45pm Advance Directive Response Recorded Date/ Time Advance Directives No July 2:22am Living Will No March 09 3 5:42pm Power of Cement Mason No March 09, 2 023 5:42pm Advance Directive Response Recorded Date/ Time Advance Directives No July 1:22am Living Will No March 09 3 4:42pm Power of Cement Mason No March 09, 2 023 4:42pm Advance Directive Response Recorded Date/ Time Advance Directives No July 2:22am Living Will No September 21, 2023 8:57am Power of Cement Mason No September 20 8:57am Advance Directive Response Recorded Date/ Time Advance Directives No April 10:08am Advance Directive Response Recorded Date/ Time Do you have a Healthcare Power of Cement Mason? No November 23, 2024 8:22pm Advance Directives No April 10:08am Discharge Instructions * Instructions* Davide Marion PA-C - 09/01/2018 THE UROLOGIST AT [place] STATES THAT YOUR KIDNEY STONE IS JUST ABOVE THE LEVEL OF YOUR URINARY BLADDER AND SHOULD PASS IN THE NEAR FUTURE. IF YOU ARE STILL EXPERIENCING SYMPTOMS ON MONDAY MORNING YOU MUST CONTACT YOUR UROLOGIST AT [facility]. OUR UROLOGIST ALSO STATES THAT YOU SHOULD RETURN TO THE EMERGENCY DEPARTMENT IF YOU DEVELOP A FEVER. YOU SHOULD TAKE YOUR TEMPERATURE AT HOME ON A REGULAR BASIS TO SEE IF YOU ARE DEVELOPING A FEVER THAT YOU MAY NOT NOTICE. * Attachments The following attachments cannot be sent through Care Everywhere. * Kidney Stone (Afghan) in this encounter Assessments Diagnosis Kidney stone on left side- Primary Diagnosis Cervical pain- Primary Cervicalgia Reason for Referral Status Reason Specialty Diagnoses / Procedures Referred By Contact Referred To Contact Authorized Neurosurgery Diagnoses Cervical pain Davide Chao MD [address] [facility] [address] [place] [address] [facility] [address] [place] [address] Specialty Diagnoses / Procedures Referred By Contac t Referred To Contact Cardiology Diagnoses Palpitations Procedures Extended Holter Monitor (3-7 days) Yuri Palencia MD [address] [place] [id number] Referral ID Status Reason Start Date Expiration Date Visits Re quested Visits Authorized [id number] Closed 05/17/2021 05/17/2022 1 1 Specialty Diagnoses / Procedures Referred By Contac t Referred To Contact Cardiology Diagnoses Palpitations Procedures Echocardiogram complete Yuri Palencia MD [address] [place] [address] Referral ID Status Reason Start Date Expiration Date V isits Requested Visits Authorized [id number] New Request 05/17/2021 05/17/2022 1 1 Specialty Diagnoses / Procedures Referred By Contac t Referred To Contact Radiology Diagnoses , unspecified gestational age Procedures US OB TRANSVAGINAL Yaniv Pederson MD [address] [place] [address] Referral ID Status Reason Start Date Expiration Date Visits Re quested Visits Authorized [id number] Open 07/26/2022 07/26/2023 1 1 Specialty Diagnoses / Procedures Referred By Contac t Referred To Contact [facility] Diagnoses Chronic bilateral low back pain with left-sided sciatica Procedures CONSULT TO PHYSICAL THERAPY PHYSICAL THERAPY EVALUATION HIGH COMPLEX 45 MINS Davide Chao MD [address] [place] [address] [facility] [place] [address] [place] [address] Referral ID Status Reason Start Date Expiration Date Visits Requested Visits Authorized [id number] Pending Review Auto-Generat ed Referral 10/10/2022 10/10/2023 1 1 Specialty Diagnoses / Procedures Referred By Elder merritt Referred To Contact Cardiology Diagnoses History of PSVT (paroxysmal supraventricular tachycardia) Procedures CONSULT TO CARDIOLOGY OFFICE/OUTPATIENT [facility] 60-74 MINUTES Davide Chao MD [address] [place] [address] Referral ID Status Reason Start Date Expiration Date Visits Requested Visits Authorized [id number] Authorized PCP Requested Referral 10/10/2022 10/10/2023 1 1 Specialty Diagnoses / Procedures Referred By Elder merritt Referred To Contact Cardiovascular Medicine Diagnoses Near syncope Tachycardia Procedures 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 Alina Alvarado MD [address] [facility] 1st [place] [address] [facility] Digital Computer Systems Analyst [address] [place] [address] Referral ID Status Reason Start Date Expiration Date Visits Re quested Visits Authorized [id number] Closed 05/24/2023 06/17/2024 1 1 Specialty Diagnoses / Procedures Referred By Elder merritt Referred To Contact Diagnoses ADHD (attention deficit hyperactivity disorder), combined type Davide Chao MD [address] [place] [address] Referral ID Status Reason Start Date Expiration Date V isits Requested Visits Authorized [id number] Pending Review 1 1 Chief Complaint Patient is here for her 4 week post visit. Patient had a vaginal delivery of a male infant on 10/12/21 at 39 weeks 5 days, weighted 8 # 2 oz. Patient is currently bottle feeding. Patientwould not like to discuss control options. Patient has resumed sexual activity. Patient has no other concerns at this time. Chief Complaint and Reason for Visit Chief Complaint EORDERS Rhogam Inj VIABILITY Chief Complaint EORDERS Rhogam Inj VIABILITY NOB LMP 1/12 PAP, Reason for Visit Depression affecting Herpes simplex infection during , antepartum [id number] History of pre-eclampsia Rh negative status during Spotting Supervision of high risk , antepartum Chief Complaint EORDERS Rhogam Inj VIABILITY NOB LMP 1/12 PAP, 14 WK OB Reason for Visit Depression affecting Herpes simplex infection during , antepartum [id number] History of pre-eclampsia Rh negative status during Spotting Supervision of high risk , antepartum Depression affecting Herpes simplex infection during , antepartum [id number] History of pre-eclampsia Rh negative status during Spotting Supervision of high risk , antepartum Chief Complaint EORDERS Rhogam Inj VIABILITY NOB LMP 1/12 PAP, 14 WK OB 19 wk ob ANATOMY 18-20 WEEKS Reason for Visit Depression affecting Herpes simplex infection during , antepartum [id number] History of pre-eclampsia Rh negative status during Spotting Supervision of high risk , antepartum Depression affecting Herpes simplex infection during , antepartum [id number] History of pre-eclampsia Rh negative status during Spotting Supervision of high risk , antepartum Depression affecting Herpes simplex infection during , antepartum [id number] History of pre-eclampsia Rh negative status during Spotting Supervision of high risk , antepartum Chief Complaint 14 WK OB 19 wk ob ANATOMY 18-20 WEEKS rhogam 23 WK OB 27 WK OB/GLUCOSE 30 WK OB R/O UTI R/O UTI palpitations Reason for Visit Depression affecting Herpes simplex infection during , antepartum [id number] History of pre-eclampsia Rh negative status during Spotting Supervision of high risk , antepartum Depression affecting Herpes simplex infection during , antepartum [id number] History of pre-eclampsia Rh negative status during Spotting Supervision of high risk , antepartum Rh negative status during Depression affecting Herpes simplex infection during , antepartum [id number] History of pre-eclampsia Rh negative status during Spotting Supervision of high risk , antepartum Chronic headache Arthritis pain, hip Depression affecting Herpes simplex infection during , antepartum [id number] History of pre-eclampsia Rh negative status during Sciatic leg pain Supervision of high risk , antepartum Chronic headache Abnormal glucose Back pain Depression affecting Herpes simplex infection during , antepartum [id number] History of pre-eclampsia Rh negative status during Supervision of high risk , antepartum Vaginal discharge during Chronic headache UTI in Chief Complaint 19 wk ob ANATOMY 18-20 WEEKS rhogam 23 WK OB 27 WK OB/GLUCOSE 30 WK OB R/O UTI R/O UTI palpitations DORSALGIA, 23 WKS /NST Reason for Visit Depression affecting Herpes simplex infection during , antepartum [id number] History of pre-eclampsia Rh negative status during Spotting Supervision of high risk , antepartum Rh negative status during Depression affecting Herpes simplex infection during , antepartum [id number] History of pre-eclampsia Rh negative status during Spotting Supervision of high risk , antepartum Chronic headache Arthritis pain, hip Depression affecting Herpes simplex infection during , antepartum [id number] History of pre-eclampsia Rh negative status during Sciatic leg pain Supervision of high risk , antepartum Chronic headache Abnormal glucose Back pain Depression affecting Herpes simplex infection during , antepartum [id number] History of pre-eclampsia Rh negative status during [...] affecting Herpes simplex infection during , antepartum [id number] History of pre-eclampsia Rh negative status during Spotting Supervision of high risk , antepartum Rh negative status during Depression affecting Herpes simplex infection during , antepartum [id number] History of pre-eclampsia Rh negative status during Spotting Supervision of high risk , antepartum Chronic headache Arthritis pain, hip Depression affecting Herpes simplex infection during , antepartum [id number] History of pre-eclampsia Rh negative status during Sciatic leg pain Supervision of high risk , antepartum Chronic headache Abnormal glucose Back pain Depression affecting Herpes simplex infection during , antepartum [id number] History of pre-eclampsia Rh negative status during Supervision of high risk , antepartum Vaginal discharge during Chronic headache UTI in Depression affecting Elevated bilirubin Hypokalemia Pruritus of Supervision of high risk , antepartum Elevated bilirubin Abnormal glucose Arthritis pain, hip Back pain Chlamydia infection affecting Cholestasis during Depression affecting Elevated bilirubin Herpes simplex infection during , antepartum [id number] History of pre-eclampsia Hx of cholecystectomy Hypokalemia Pruritus of Rh negative status during Sciatic leg pain Spotting Supervision of high risk , antepartum UTI in Vaginal discharge during Chronic headache Abnormal glucose Arthritis pain, hip Back pain Chlamydia infection affecting Depression affecting Elevated bilirubin Herpes simplex infection during , antepartum [id number] History of pre-eclampsia Hx of cholecystectomy Hypokalemia [...] affecting Herpes simplex infection during , antepartum [id number] History of pre-eclampsia Rh negative status during Spotting Supervision of high risk , antepartum Chronic headache Arthritis pain, hip Depression affecting Herpes simplex infection during , antepartum [id number] History of pre-eclampsia Rh negative status during Sciatic leg pain Supervision of high risk , antepartum Chronic headache Abnormal glucose Back pain Depression affecting Herpes simplex infection during , antepartum [id number] History of pre-eclampsia Rh negative status during Supervision of high risk , antepartum Vaginal discharge during Chronic headache UTI in Depression affecting Elevated bilirubin Hypokalemia Pruritus of Supervision of high risk , antepartum Elevated bilirubin Abnormal glucose Arthritis pain, hip Back pain Chlamydia infection affecting Cholestasis during Depression affecting Elevated bilirubin Herpes simplex infection during , antepartum [id number] History of pre-eclampsia Hx of cholecystectomy Hypokalemia Pruritus of Rh negative status during Sciatic leg pain Spotting Supervision of high risk , antepartum UTI in Vaginal discharge during Chronic headache Abnormal glucose Arthritis pain, hip Back pain Chlamydia infection affecting Depression affecting Elevated bilirubin Herpes simplex infection during , antepartum [id number] History of pre-eclampsia Hx of cholecystectomy Hypokalemia [...] affecting Herpes simplex infection during , antepartum [id number] History of pre-eclampsia Rh negative status during Supervision of high risk , antepartum Chronic headache Spotting Depression affecting Herpes simplex infection during , antepartum [id number] History of pre-eclampsia Rh negative status during Supervision of high risk , antepartum Chronic headache Arthritis pain, hip Sciatic leg pain Abnormal glucose Depression affecting Herpes simplex infection during , antepartum [id number] History of pre-eclampsia Rh negative status during Supervision of high risk , antepartum Chronic headache Back pain Vaginal discharge during UTI in Depression affecting Elevated bilirubin Supervision of high risk , antepartum Hypokalemia Pruritus of Elevated bilirubin Abnormal glucose Chlamydia infection affecting Depression affecting Elevated bilirubin Herpes simplex infection during , antepartum [id number] History of pre-eclampsia Rh negative status during Supervision of high risk , antepartum Chronic headache Arthritis pain, hip Back pain Cholestasis during Hypokalemia Pruritus of Sciatic leg pain Spotting UTI in Vaginal discharge during Abnormal glucose Chlamydia infection affecting Depression affecting Elevated bilirubin Herpes simplex infection during , antepartum [id number] History of pre-eclampsia Rh negative status during Supervision of high risk , antepartum Chronic headache Arthritis pain, hip Back pain Hypokalemia Pruritus of Sciatic leg pain Spotting Vaginal discharge during Abnormal glucose Chlamydia infection affecting Depression affecting Elevated bilirubin Herpes simplex infection during , antepartum [id number] History of pre-eclampsia Rh negative status during [...] affecting Herpes simplex infection during , antepartum [id number] History of pre-eclampsia Rh negative status during Supervision of high risk , antepartum Chronic headache Spotting Depression affecting Herpes simplex infection during , antepartum [id number] History of pre-eclampsia Rh negative status during Supervision of high risk , antepartum Chronic headache Arthritis pain, hip Sciatic leg pain Abnormal glucose Depression affecting Herpes simplex infection during , antepartum [id number] History of pre-eclampsia Rh negative status during Supervision of high risk , antepartum Chronic headache Back pain Vaginal discharge during UTI in Depression affecting Elevated bilirubin Supervision of high risk , antepartum Hypokalemia Pruritus of Elevated bilirubin Abnormal glucose Chlamydia infection affecting Depression affecting Elevated bilirubin Herpes simplex infection during , antepartum [id number] History of pre-eclampsia Rh negative status during Supervision of high risk , antepartum Chronic headache Arthritis pain, hip Back pain Cholestasis during Hypokalemia Pruritus of Sciatic leg pain Spotting UTI in Vaginal discharge during Abnormal glucose Chlamydia infection affecting Depression affecting Elevated bilirubin Herpes simplex infection during , antepartum [id number] History of pre-eclampsia Rh negative status during Supervision of high risk , antepartum Chronic headache Arthritis pain, hip Back pain Hypokalemia Pruritus of Sciatic leg pain Spotting Vaginal discharge during Abnormal glucose Chlamydia infection affecting Depression affecting Elevated bilirubin Herpes simplex infection during , antepartum [id number] History of pre-eclampsia Rh negative status during [...] affecting Herpes simplex infection during , antepartum [id number] History of pre-eclampsia Rh negative status during Spotting Supervision of high risk , antepartum Arthritis pain, hip Chronic headache Depression affecting Herpes simplex infection during , antepartum [id number] History of pre-eclampsia Rh negative status during Sciatic leg pain Supervision of high risk , antepartum Abnormal glucose Back pain Chronic headache Depression affecting Herpes simplex infection during , antepartum [id number] History of pre-eclampsia Rh negative status during Supervision of high risk , antepartum Vaginal discharge during UTI in Depression affecting Elevated bilirubin Hypokalemia Pruritus of Supervision of high risk , antepartum Elevated bilirubin Abnormal glucose Arthritis pain, hip Back pain Chlamydia infection affecting Cholestasis during Chronic headache Depression affecting Elevated bilirubin Herpes simplex infection during , antepartum [id number] History of pre-eclampsia Hypokalemia Pruritus of Rh negative status during Sciatic leg pain Spotting Supervision of high risk , antepartum UTI in Vaginal discharge during Abnormal glucose Arthritis pain, hip Back pain Chlamydia infection affecting Chronic headache Depression affecting Elevated bilirubin Herpes simplex infection during , antepartum [id number] History of pre-eclampsia Hypokalemia Pruritus of Rh negative status during Sciatic leg pain Spotting Supervision of high risk , antepartum Vaginal discharge during Abnormal glucose Chlamydia infection affecting Chronic headache Depression affecting Elevated bilirubin Herpes simplex infection during , antepartum [id number] History of pre-eclampsia Hypokalemia Pruritus of Rh negative status during Social discord Sterilization Supervision of high risk , antepartum False labor after 37 completed weeks of gestation Abnormal glucose Chlamydia infection affecting Chronic headache Depression affecting Elevated bilirubin Herpes simplex infection during , antepartum [id number] History of pre-eclampsia Rh negative status during Social discord Sterilization Supervision of high risk , antepartum Abnormal glucose Chlamydia infection affecting Chronic headache Depression affecting Elevated bilirubin Herpes simplex infection during , antepartum [id number] History of pre-eclampsia Rh negative status during Social discord Sterilization Supervision of high risk , antepartum Status post tubal ligation Abnormal glucose Chlamydia infection affecting Chronic headache Depression affecting Elevated bilirubin Herpes simplex infection during , antepartum [id number] History of pre-eclampsia Rh negative status during [...] bilirubin Herpes simplex infection during , antepartum [id number] History of pre-eclampsia Rh negative status during Social discord Sterilization Supervision of high risk , antepartum Abnormal glucose Chlamydia infection affecting Chronic headache Depression affecting Elevated bilirubin Herpes simplex infection during , antepartum [id number] History of pre-eclampsia Rh negative status during Social discord Sterilization Supervision of high risk , antepartum Abnormal glucose Chlamydia infection affecting Chronic headache Depression affecting Elevated bilirubin Herpes simplex infection during , antepartum [id number] History of pre-eclampsia Rh negative status during [...] Vaginal odor January 03, 2025 3:3 0pm Chief Complaint Admit Date INT LAB ORDER November 11, 2024 4:53p m chest pain, abd pain November 23, 2024 8:2 1pm HSG December 20, 2024 11:4 4am HSG December 20, 2024 5:12 pm EPISODIC TACHYCARDIA December 31, 2024 11: 36am Possible BV January 03, 2025 3:3 0pm Amenorrhea January 05, 2025 4:3 7pm at early stage History of reve rsal of January 09, 2025 7:54pm Additional Source Comments INFORMATION SOURCE (unrecogn ized section and content) DATE CREATED AUTHOR 11/25/2017 [facility] DATE CREATED AUTHOR AUTHOR'S ORGANIZ ATION 07/25/2018 [facility] DATE CREATED AUTHOR AUTHOR'S ORGANIZ ATION 09/04/2018 [facility] Center DATE CREATED AUTHOR AUTHOR'S ORGANIZ ATION 09/27/2018 [facility] DATE CREATED AUTHOR AUTHOR'S ORGANIZ ATION 10/26/2018 [facility] DATE CREATED AUTHOR AUTHOR'S ORGANIZ ATION 10/27/2018 [facility] DATE CREATED AUTHOR AUTHOR'S ORGANIZ ATION 02/15/2021 [facility] ([place]) DATE CREATED AUTHOR AUTHOR'S ORGANIZ ATION 06/01/2021 [facility] DATE CREATED AUTHOR AUTHOR'S ORGANIZ ATION [facility] DATE CREATED AUTHOR AUTHOR'S ORGANIZ ATION 06/28/2021 [facility] DATE CREATED AUTHOR AUTHOR'S ORGANIZ ATION 11/21/2021 [facility] DATE CREATED AUTHOR AUTHOR'S ORGANIZ ATION 08/11/2022 [facility] DATE CREATED AUTHOR AUTHOR'S ORGANIZ ATION 08/11/2022 [facility] DATE CREATED AUTHOR AUTHOR'S ORGANIZ ATION 08/12/2022 [facility] DATE CREATED AUTHOR AUTHOR'S ORGANIZ ATION 10/11/2022 [facility] DATE CREATED AUTHOR AUTHOR'S ORGANIZ ATION 11/30/2022 [facility] DATE CREATED AUTHOR AUTHOR'S ORGANIZ ATION 11/30/2022 [facility] DATE CREATED AUTHOR AUTHOR'S ORGANIZ ATION 06/02/2023 [facility] DATE CREATED AUTHOR AUTHOR'S ORGANIZ ATION 02/09/2024 [facility] DATE CREATED AUTHOR AUTHOR'S ORGANIZ ATION 03/27/2024 [facility] DATE CREATED AUTHOR AUTHOR'S ORGANIZ ATION 08/18/2024 [facility] DATE CREATED AUTHOR AUTHOR'S ORGANIZ ATION 09/13/2024 [facility] DATE CREATED AUTHOR AUTHOR'S ORGANIZ ATION 12/08/2024 [facility] DATE CREATED AUTHOR AUTHOR'S ORGANIZ ATION 12/26/2024 [facility] DATE CREATED AUTHOR AUTHOR'S ORGANIZ ATION 01/07/2025 [facility] Reason for Visit (unrecogniz ed section and content) Reason Comments Flank Pain pt was seen at [facility] yesterday and told to stay for treatment of kidneu stone. pt staets she left AMA and is here today for treatment. Reason Comments Blurred Vision Reason Comments Palpitations Specialty Diagnoses / Procedures Referred By Conthyun t Referred To Contact Cardiology Diagnoses heart pounding Maricel Simeon MD [address] [place] [id number] Referral ID Status Reason Start Date Expiration Date Visits Re quested Visits Authorized [id number] Closed 05/16/2021 05/16/2022 1 1 Reason Comments [...] US OB TRANSVAGINAL Yaniv Pederson MD [address] [place] [address] Referral ID Status Reason Start Date Expiration Date Visits Re quested Visits Authorized [id number] Open 07/26/2022 07/26/2023 1 1 Reason Comments Referral Request Specialty Diagnoses / Procedures Referred By Elder t Referred To Contact Cardiovascular Medicine Diagnoses Tachycardia Near syncope Dizziness and giddiness Procedures 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 Alina Alvarado MD [address] [place] [id number] Rashard Ont Digital Computer Systems Analyst [address] [place] [phone] Referral ID Status Reason Start Date Expiration Date Visits Re quested Visits Authorized [id number] Closed 10/20/2022 11/14/2023 1 1 Reason Comments [...] Near syncope Tachycardia Procedures HOLTER MONITOR - CUSTODIAL Alina lAvarado MD [address] [place] [id number] Rashard Ont Digital Computer Systems Analyst [address] [place] [phone] Referral ID Status Reason Start Date Expiration Date Visits Re quested Visits Authorized [id number] Closed 05/24/2023 06/17/2024 1 1 Reason Comments Vaginal Bleeding Pt has been having h eavy menstrual bleeding x approx 36 hours. Denies , has had tubal ligation. Reports lower abd cramping, mild light-headedness and headache. Specialty Diagnoses / Procedures Referred By Elder merritt Referred To Contact Diagnoses Near syncope Procedures TILT TABLE TEST Alina Alvarado MD [address] [place] [address] Referral ID Status Reason Start Date Expiration Date Visits Re quested Visits Authorized [id number] Closed 05/16/2023 06/09/2024 1 1 Reason Onset [...] Comments Ovarian Cyst Reason Comments Faxed to [facility] Bernardo Sibley RN - 09/01/2018 9:05 PM EDTSBernardo armando RN - 09/01/2018 8:50 PM EDTSEden sanchez, EMT - 09/01/2018 7:28 PM EDTAndry Santiago [...] Care Teams (unrecognized sec tion and content) Burlap Roll Coverer Relationship Specialty Start Date End Date Davide Chao MD [address] [place] [address] [place] [address], [place] [address] PCP - General Family Medicine 05/13/15 Burlap Roll Coverer Relationship Specialty Start Date End Date Davide Chao MD [address] [place] [phone] PCP - General Family Medicine 06/23/17 Burlap Roll Coverer Relationship Specialty Start Date End Date Davide Chao MD [address] [place] [address], [place] [address] PCP - General Family Medicine 05/13/15 Burlap Roll Coverer Relationship Specialty Start Date End Date Davide Chao MD [address] [place] [address], [place] [address] PCP - General 04/07/09 Burlap Roll Coverer Relationship Specialty Start Date End Date Davide Chao MD [address] [place] [address], [place] [address] PCP - General 04/07/09 Burlap Roll Coverer Relationship Specialty Start Date End Date Davide Chao MD [address] [place] [address], [place] [address] PCP - General 04/07/09 Burlap Roll Coverer Relationship Specialty Start Date End Date Davide Chao MD [address] [place] [address], [place] [address] PCP - General 04/07/09 Burlap Roll Coverer Relationship Specialty Start Date End Date Davide Chao [address] [place] [address], [place] [address] PCP - General 08/22/18 Burlap Roll Coverer Relationship Specialty Start Date End Date Davide Chao [address] [place] [address] PCP - General 08/22/18 Burlap Roll Coverer Relationship Specialty Start Date End Date Davide Chao [address] [place] [address] PCP - General 08/22/18 Burlap Roll Coverer Relationship Specialty Start Date End Date Davide Chao [address] [place] [address] PCP - General 08/22/18 Team Status: Active Member Role Status Dates Dr. Davide Chao MD Family Provider Active Dr. Davide Chao MD Primary Care Provider Active Team Status: Inactive Member Role Status Dates Dr. Davide Caho MD Primary Care Provider, Referr ing Provider Active Dr. Yuri Crenshaw MD Attending Provider Active Team Status: Inactive Member Role Status Dates Dr. Davide Chao MD Primary Care Provider Active Dr. Melissa Brasher DO Attending Provider Activ e Team Status: Active Member Role Status Dates Dr. Davide Chao MD Primary Care Provider Active Love Castillo MEDICAL PHYSICS PROFESSOR, MEDICAL PHYSICS PROFESSOR-C Attending Provider Active Team Status: Inactive Member Role Status Dates Dr. Davide Chao MD Primary Care Provider, Referr ing Provider Active Dr. Melissa Brasher DO Attending Provider Activ e Team Status: Inactive Member Role Status Dates Dr. Davide Chao MD Primary Care Provider Active Love Castillo MEDICAL PHYSICS PROFESSOR, MEDICAL PHYSICS PROFESSOR-C Attending Provider Active Team Status: Inactive Member Role Status Dates Dr. Davide Chao MD Primary Care Provider Active Dr. Melissa Brasher DO Attending Provider, Refe rring Provider Active Burlap Roll Coverer Relationship Specialty Start Date End Date Davide Chao MD [address] [place] [address] PCP - General 04/07/09 Burlap Roll Coverer Relationship Specialty Start Date End Date Davide Chao MD [address] [place] [id number] PCP - General Family Medicine 06/23/17 Team Status: Inactive Member Role Status Dates Dr. Davide Chao MD Primary Care Provider, Referr ing Provider Active Laura Salinas CNM Attending Provider Active Team Status: Inactive Member Role Status Dates Dr. Davide Chao MD Primary Care Provider, Referr ing Provider Active Love Castillo MEDICAL PHYSICS PROFESSOR, MEDICAL PHYSICS PROFESSOR-C Attending Provider Active Team Status: Inactive Member [...] Active Jeanette Roach CNM Other Provider Active Burlap Roll Coverer Relationship Specialty Start Date End Date Davide Chao MD [address] [place] [address] PCP - General 04/07/09 Team Status: Inactive Member Role Status Dates Dr. Davide Chao MD Primary Care Provider Active Dr. Car Gage DO Attending Provider, Emergency Provider Active Team Status: Inactive Member Role Status Dates Dr. Davide Chao MD Primary Care Provider Active Dr. Yuri Crenshaw MD Other Provider Active Love Castillo MEDICAL PHYSICS PROFESSOR, MEDICAL PHYSICS PROFESSOR-C Other Provider Active Laura Salinas CNM Attending Provider, Referring Pr ovider Active Burlap Roll Coverer Relationship Specialty Start Date End Date Davide Chao MD [address] [place] [address] PCP - General 04/07/09 Team Status: Inactive Member Role Status Dates Dr. Davide Chao MD Primary Care Provider, Referr ing Provider Active Dr. Zander Morales MD Attending Provider Active Team Status: Active Member Role Status Dates Dr. Davide Chao MD Primary Care Provider Active Dr. Yuri Crenshaw MD Other Provider Active Love Castillo MEDICAL PHYSICS PROFESSOR, MEDICAL PHYSICS PROFESSOR-C Other Provider Active Laura Salinas CNM Attending [...] Dr. Yuri Crenshaw MD Other Provider Active Burlap Roll Coverer Relationship Specialty Start Date End Date Davide Chao MD [address] [place] [address] PCP - General 06/13/19 Team Status: Active [...] CNM Attending Provider, Referring Pro vider Active Burlap Roll Coverer Relationship Specialty Start Date End Date Davide Chao MD [address] [place] [address] PCP - General 04/07/09 Burlap Roll Coverer Relationship Specialty Start Date End Date Davide Chao MD [address] [place], [place] [address] PCP - General 04/07/09 Burlap Roll Coverer Relationship Specialty Start Date End Date Davide Chao MD [address] [place], [place] [address] PCP - General 06/13/19 Burlap Roll Coverer Relationship Specialty Start Date End Date Davide Chao MD [address] [place], [place] [address] PCP - General 04/07/09 Burlap Roll Coverer Relationship Specialty Start Date End Date Davide Chao MD [address] [place] [address] PCP - General Family Medicine 06/23/17 Burlap Roll Coverer Relationship Specialty Start Date End Date Davide Chao MD [address] [place] [address] PCP - General 06/13/19 Burlap Roll Coverer Relationship Specialty Start Date End Date Davide Chao MD [address] [place] [id number] PCP - General Family Medicine 06/23/17 Team Status: Active Member Role Status Dates Dr. Davide Chao MD Primary Care Provider Active Love Castillo MEDICAL PHYSICS PROFESSOR, MEDICAL PHYSICS PROFESSOR-C Attending Provider, Referring Provider Active Team Status: Inactive Member Role Status Dates Dr. Davide Chao MD Primary Care Provider Active Love Castillo MEDICAL PHYSICS PROFESSOR, MEDICAL PHYSICS PROFESSOR-C Attending Provider, Referring Provider Active Burlap Roll Coverer Relationship Specialty Start Date End Date Davide Chao MD [address] [place] [address] PCP - General 04/07/09 Burlap Roll Coverer Relationship Specialty Start Date End Date Davide Chao MD [address] [place] [address] PCP - General 04/07/09 Burlap Roll Coverer Relationship Specialty Start Date End Date Davide Chao MD [address] [place] [address] PCP - General 04/07/09 Burlap Roll Coverer Relationship Specialty Start Date End Date Davide Chao MD [address] [place] [address] PCP - General 04/07/09 Burlap Roll Coverer Relationship Specialty Start Date End Date Davide Chao MD [address] [place] [address] PCP - General 04/07/09 Burlap Roll Coverer Relationship Specialty Start Date End Date Davide Chao MD [address] [place] [address] PCP - General 04/07/09 Burlap Roll Coverer Relationship Specialty Start Date End Date Davide Chao MD [address] [place] [address] PCP - General 04/07/09 Burlap Roll Coverer Relationship Specialty Start Date End Date Davide Chao MD [address] [place] [address] PCP - General 04/07/09 Harini Rock APRN.BLOW UP OPERATOR [address] [place] [address] [employer]queak Worker Family Medicine 05/12/24 Isaac Marie APRN.BLOW UP OPERATOR [address] [place] [address] [employer] Worker Family Medicine 05/21/24 Burlap Roll Coverer Relationship Specialty Start Date End Date Davide Chao MD [address] [place] [address] PCP - General 04/07/09 Harini Rock APRN.BLOW UP OPERATOR [address] [place] [address] [employer] Worker Family Medicine 05/12/24 Isaac Marie APRN.BLOW UP OPERATOR [address] [place] [address] [employer] Worker Family Medicine 05/21/24 Burlap Roll Coverer Relationship Specialty Start Date End Date Davide Chao MD [address] [facility] [place] [address] PCP - General 04/07/09 Harini Rock APRN.BLOW UP OPERATOR [address] [facility] [place] [address] [facility]24 Isaac Marie APRN.BLOW UP OPERATOR [address] [facility] [place] [address] [facility] 05/21/24 Burlap Roll Coverer Relationship Specialty Start Date End Date Davide Chao MD [address] [facility] [place] [address] PCP - General 04/07/09 Harini Rock HIGH SCHOOL BIOLOGY TEACHER.BLOW UP OPERATOR [address] [facility] [place] [address] [facility] 05/12/24 Isaac Marie APRN.BLOW UP OPERATOR [address] [facility] [place] [address] [facility] 05/21/24 Team Status: Active Member Role Status Dates Dr. Davide Chao MD Primary Care Provider Active Team Status: Inactive Member Role Status Dates Dr. Davide Chao MD Primary Care Provider Active Start: June 10, 2024 End: June 10, 2024 Dr. Davide Chao MD Referring Provider Active Start: June 10, 2024 End: June 10, 2024 Love Castillo NP, MEDICAL PHYSICS PROFESSOR-C Attending Provider Active Start: June 10, 2024 End: June 10, 2024 Team Status: Inactive Member Role Status Dates Dr. Davide Chao MD Primary Care Provider Active Start: June 10, 2024 End: June 10, 2024 Love Castillo MEDICAL PHYSICS PROFESSOR, MEDICAL PHYSICS PROFESSOR-C Attending Provider Active Start: June 10, 2024 End: June 10, 2024 Love Castillo MEDICAL PHYSICS PROFESSOR, MEDICAL PHYSICS PROFESSOR-C Referring Provider Active Start: June 10, 2024 [...] August 21, 2024 End: August 21, 2024 Burlap Roll Coverer Relationship Specialty Start Date End Date Davide Chao MD [address] [facility] [place] [address] PCP - General 04/07/09 Harini Rock APRN.BLOW UP OPERATOR [address] [place] [address] [employer] Worker Family Medicine 05/12/24 Isaac Marie APRN.BLOW UP OPERATOR [address] [place] [address] Antisqueak Worker [facility] 05/21/24 Burlap Roll Coverer Relationship Specialty Start Date End Date Davide Chao MD [address] [place] [address] PCP - General 04/07/09 Harini Rock APRN.BLOW UP OPERATOR [address] [place] [address] [employer] Worker Family Medicine 05/12/24 Isaac Marie APRN.BLOW UP OPERATOR [address] [place] [address] [employer]ak Worker [facility] Medicine 05/21/24 Burlap Roll Coverer Relationship Specialty Start Date End Date Davide Chao MD [address] [place] [address] PCP - General 04/07/09 Harini Rock APRN.BLOW UP OPERATOR [address] [facility] [place] [address] [employer] Worker Family Medicine 05/12/24 10/16/24 Isaac Marie APRN.BLOW UP OPERATOR [address] [place] [address] [facility] 05/21/24 Team Status: Inactive Member Role Status Dates Dr. Davide Chao MD Primary Care Provider Active Start: October 26, 2024 End: October 26, 2024 Dr. Melissa Brasher , DO Attending Provider Activ e Start: October 26, 2024 End: October 26, 2024 Dr. Melissa Brasher , DO Referring Provider Activ e Start: October 26, 2024 End: October 26, 2024 Burlap Roll Coverer Relationship Specialty Start Date End Date Davide Chao MD [address] [place], [place] [address] PCP - General 04/07/09 Harini Rock HIGH SCHOOL BIOLOGY TEACHER.BLOW UP OPERATOR [address] [place] [address] [facility] 05/12/24 10/16/24 Isaac Marie, HIGH SCHOOL BIOLOGY TEACHER.BLOW UP OPERATOR [address] [place] [address] [facility] 05/21/24 Team Status: Inactive Member [...] Care Provider Active Start: December 31, 2024 ALINA, ROBINAPRETERESA Attending Provider Active Star t: December 31, 2024 ALINA, GUMPRECHT Referring Provider Active Star t: December 31, [...] Provider Active S tart: January 03, 2025 Team Status: Inactive Member Role/Relationship Status Dates Dr. Davide Chao MD Primary Care Provider Active Start: January 03, 2025 End: January 03, 2025 Jeanette Roach CNM Attending Provider Active S tart: January 03, 2025 End: January 03, 2025 Jeanette Roach CNM Referring Provider Active S tart: January 03, 2025 End: January 03, 2025 Team Status: Active Member Role/Relationship Status Dates Dr. Melissa Brasher DO Attending Provider Activ e Start: January 05, 2025 Dr. Davide Chao MD Primary Care Provider Active Start: January 05, 2025 Team Status: Active Member Role/Relationship Status Dates Dr. Davide Chao MD Primary Care Provider Active Start: January 07, 2025 Dr. Melissa Brasher DO Attending Provider Activ e Start: January 07, 2025 Team Status: Active Member Role/Relationship Status Dates Dr. Melissa Brasher DO Attending Provider Activ e Start: January 09, 2025 Dr. Davide Chao MD Primary Care Provider Active Start: January 09, 2025 Team Status: Inactive Member Role/Relationship Status Dates Dr. Melissa Brasher DO Attending Provider Activ e Start: January 05, 2025 End: January 05, 2025 Dr. Davide Chao MD Primary Care Provider Active Start: January 05, 2025 End: January 05, 2025 Source Comments (unrecognize d section and content) In the event this informatio n is protected by the Federal Confidentiality of Alcohol and Drug Abuse Patient Records regulations: The Federal rules restrict any use of the information to criminally investigate or prosecute any alcohol or drug abuse patient.[facility] CenterIn the event this information is protected by the Federal Confidentiality of Alcohol and Drug Abuse Patient Records regulations: The Federal rules restrict any use of the information to criminally investigate or prosecute any alcohol or drug abuse patient.[facility] CenterIn the event this information is protected by the Federal Confidentiality of Alcohol and Drug Abuse Patient Records regulations: The Federal rules restrict any use of the information to criminally investigate or prosecute any alcohol or drug abuse patient.[facility] CenterIn the event this information is protected by the Federal Confidentiality of Alcohol and Drug Abuse Patient Records regulations: The Federal rules restrict any use of the information to criminally investigate or prosecute any alcohol or drug abuse patient.[facility] CenterIn the event this information is protected by the Federal Confidentiality of Alcohol and Drug Abuse Patient Records regulations: The Federal rules restrict any use of the information to criminally investigate or prosecute any alcohol or drug abuse patient.[facility] CenterIn the event this information is protected by the Federal Confidentiality of Alcohol and Drug Abuse Patient Records regulations: The Federal rules restrict any use of the information to criminally investigate or prosecute any alcohol or drug abuse patient.[facility] CenterIn the event this information is protected by the Federal Confidentiality of Alcohol and Drug Abuse Patient Records regulations: The Federal rules restrict any use of the information to criminally investigate or prosecute any alcohol or drug abuse patient.[facility] CenterIn the event this information is protected by the Federal Confidentiality of Alcohol and Drug Abuse Patient Records regulations: The Federal rules restrict any use of the information to criminally investigate or prosecute any alcohol or drug abuse patient.[facility] CenterIn the event this information is protected by the Federal Confidentiality of Alcohol and Drug Abuse Patient Records regulations: The Federal rules restrict any use of the information to criminally investigate or prosecute any alcohol or drug abuse patient.[facility] CenterIn the event this information is protected by the Federal Confidentiality of Alcohol and Drug Abuse Patient Records regulations: The Federal rules restrict any use of the information to criminally investigate or prosecute any alcohol or drug abuse patient.[facility] CenterIn the event this information is protected by the Federal Confidentiality of Alcohol and Drug Abuse Patient Records regulations: The Federal rules restrict any use of the information to criminally investigate or prosecute any alcohol or drug abuse patient.[facility] CenterIn the event this information is protected by the Federal Confidentiality of Alcohol and Drug Abuse Patient Records regulations: The Federal rules restrict any use of the information to criminally investigate or prosecute any alcohol or drug abuse patient.[facility] CenterIn the event this information is protected by the Federal Confidentiality of Alcohol and Drug Abuse Patient Records regulations: The Federal rules restrict any use of the information to criminally investigate or prosecute any alcohol or drug abuse patient.[facility] CenterIn the event this information is protected by the Federal Confidentiality of Alcohol and Drug Abuse Patient Records regulations: The Federal rules restrict any use of the information to criminally investigate or prosecute any alcohol or drug abuse patient.[facility] CenterIn the event this information is protected by the Federal Confidentiality of Alcohol and Drug Abuse Patient Records regulations: The Federal rules restrict any use of the information to criminally investigate or prosecute any alcohol or drug abuse patient.[facility] CenterIn the event this information is protected by the Federal Confidentiality of Alcohol and Drug Abuse Patient Records regulations: The Federal rules restrict any use of the information to criminally investigate or prosecute any alcohol or drug abuse patient.[facility] CenterIn the event this information is protected by the Federal Confidentiality of Alcohol and Drug Abuse Patient Records regulations: The Federal rules restrict any use of the information to criminally investigate or prosecute any alcohol or drug abuse patient.[facility] CenterIn the event this information is protected by the Federal Confidentiality of Alcohol and Drug Abuse Patient Records regulations: The Federal rules restrict any use of the information to criminally investigate or prosecute any alcohol or drug abuse patient.[facility] CenterIn the event this information is protected by the Federal Confidentiality of Alcohol and Drug Abuse Patient Records regulations: The Federal rules restrict any use of the information to criminally investigate or prosecute any alcohol or drug abuse patient.[facility] CenterIn the event this information is protected by the Federal Confidentiality of Alcohol and Drug Abuse Patient Records regulations: The Federal rules restrict any use of the information to criminally investigate or prosecute any alcohol or drug abuse patient.[facility] CenterIn the event this information is protected by the Federal Confidentiality of Alcohol and Drug Abuse Patient Records regulations: The Federal rules restrict any use of the information to criminally investigate or prosecute any alcohol or drug abuse patient.[facility] CenterIn the event this information is protected by the Federal Confidentiality of Alcohol and Drug Abuse Patient Records regulations: The Federal rules restrict any use of the information to criminally investigate or prosecute any alcohol or drug abuse patient.[facility] CenterIn the event this information is protected by the Federal Confidentiality of Alcohol and Drug Abuse Patient Records regulations: The Federal rules restrict any use of the information to criminally investigate or prosecute any alcohol or drug abuse patient.[facility] CenterIn the event this information is protected by the Federal Confidentiality of Alcohol and Drug Abuse Patient Records regulations: The Federal rules restrict any use of the information to criminally investigate or prosecute any alcohol or drug abuse patient.[facility] CenterIn the event this information is protected by the Federal Confidentiality of Alcohol and Drug Abuse Patient Records regulations: The Federal rules restrict any use of the information to criminally investigate or prosecute any alcohol or drug abuse patient.[facility] CenterIn the event this information is protected by the Federal Confidentiality of Alcohol and Drug Abuse Patient Records regulations: The Federal rules restrict any use of the information to criminally investigate or prosecute any alcohol or drug abuse patient.[facility] CenterIn the event this information is protected by the Federal Confidentiality of Alcohol and Drug Abuse Patient Records regulations: The Federal rules restrict any use of the information to criminally investigate or prosecute any alcohol or drug abuse patient.[facility] CenterIn the event this information is protected by the Federal Confidentiality of Alcohol and Drug Abuse Patient Records regulations: The Federal rules restrict any use of the information to criminally investigate or prosecute any alcohol or drug abuse patient.[facility] CenterIn the event this information is protected by the Federal Confidentiality of Alcohol and Drug Abuse Patient Records regulations: The Federal rules restrict any use of the information to criminally investigate or prosecute any alcohol or drug abuse patient.[facility] CenterIn the event this information is protected by the Federal Confidentiality of Alcohol and Drug Abuse Patient Records regulations: The Federal rules restrict any use of the information to criminally investigate or prosecute any alcohol or drug abuse patient.[facility] CenterIn the event this information is protected by the Federal Confidentiality of Alcohol and Drug Abuse Patient Records regulations: The Federal rules restrict any use of the information to criminally investigate or prosecute any alcohol or drug abuse patient.[facility] CenterIn the event this information is protected by the Federal Confidentiality of Alcohol and Drug Abuse Patient Records regulations: The Federal rules restrict any use of the information to criminally investigate or prosecute any alcohol or drug abuse patient.[facility] Ordered Prescriptions (unrec ognized section and content) [...] preference? Yes 2338 (Given - Provider: Jessica Tijerina, MICHAEL) ondansetron ODT (Zofran-ODT) disintegrating tablet 4 mg (COMPLETED) 4 mg, oral, Once, On Mon06/06/23 at 2335, For 1 dose 233 (Given - Provider: Jessica Tijerina, MICHAEL) sodium chloride 0.9 % bolus 1,000 mL (COMPLETED) 1,000 mL, intravenous, at 1,000 mL/hr, Administer over 1 Hours, Once, On Mon06/06/23 at 2320, For 1 dose 233 (New Bag - Provider: Jessica Tijerina, MICHAEL) [...] BE BASED ON THE PRIMARY CLINICAL RECORDS. [facility]. provides no warranty or guarantee of the accuracy or completeness of information in this document.
[2025-01-11 16:58] LABS: hCG Titer Quant., Serum 1004 mIU/mL (<9 non-preg)
== END | disposition home or self-care (01) ==
LOC: LAB 16:02
PROVIDERS: PCP Family Medicine; Visit Provider Obstetrics & Gynecology
DX: Z98.890 Other specified postprocedural states (principal)
CPT/HCPCS: 84702

== ENCOUNTER → 2025-01-13 | Outpatient (CLI) | payer MEDICAID, SELFPAY ==
[2025-01-13 17:56] LABS: hCG Titer Quant., Serum 2542 mIU/mL (<9 non-preg)
== END | disposition home or self-care (01) ==
LOC: BWCLAB 14:52
PROVIDERS: Obstetrics & Gynecology; PCP Family Medicine; Visit Provider Obstetrics & Gynecology
DX: Z34.90 Encounter for supervision of normal pregnancy, unspecified, unspecified trimester (principal); Z98.890 Other specified postprocedural states
CPT/HCPCS: 36415; 84702

== ENCOUNTER 2025-03-26 13:09 | Emergency (ER) | payer MEDICAID, SELFPAY ==
[2025-03-26 13:10] VITALS: BP 118/79; PULSE 88; RESP 16; TEMP 36.8; O2SAT 100; BMI 30.3
[2025-03-26 14:00] LABS: Hematocrit 35.8 % (37-47); Hemoglobin 12.6 g/dL (12.0-15.0); Immature Granulocytes Count 0.080 X10^3/uL (0.0-0.0); Mean Corp Hgb Conc 35.2 g/dL (32-36); Mean Corpuscular Volume 89.3 fL (81-99); Mean Platelet Vol. 9.6 fl (6.2-12.0); NRBC Flagged by Analyzer 0 % (0-5); Platelet Count 264 K/mm3 (150-450); RBC Distribution Width CV 14.0 % (11.6-14.6); RBC Distribution Width SD 45.8 fl (35.1-43.9); Red Blood Count 4.01 M/mm3 (4.2-5.4); White Blood Count 10.3 K/mm3 (4.4-11.0)
[2025-03-26 14:11] LABS: D-Dimer Quantitative (DVT/PE) 0.38 FEU/ug/m (0.27-0.49)
[2025-03-26 14:47] LABS: Anion Gap 13 (5-15); BUN 7 mg/dL (4-19); BUN/Creat Ratio 10.2 RATIO (10-20); Calcium,Total 8.7 mg/dL (7.6-11.0); Carbon Dioxide 18.9 mmol/L (21.0-32.0); Chloride 104 mmol/L (98-108); Estimated Creatinine Clearance 136.26 ml/min (50-250); Glucose 110 mg/dL (70-99); Magnesium 2.1 mg/dL (1.5-2.2); Potassium 3.4 mmol/L (3.3-5.1); Troponin T High Sensitivity < 6 ng/L (<=14)
[2025-03-26 15:51] VITALS: BP 99/71; PULSE 82; RESP 16; TEMP 36.8; O2SAT 100
== END 2025-03-26 15:53 | disposition home or self-care (01) ==
PROVIDERS: Emergency Provider Student in an Organized Health Care Education/Training Program; PCP Family Medicine; Visit Provider Student in an Organized Health Care Education/Training Program
DX: O99.412 Diseases of the circulatory system complicating pregnancy, second trimester (principal); I49.3 Ventricular premature depolarization; O99.891 Other specified diseases and conditions complicating pregnancy; R00.2 Palpitations; R06.00 Dyspnea, unspecified; Z3A.15 15 weeks gestation of pregnancy; Z86.73 Personal history of transient ischemic attack (TIA), and cerebral infarction without residual deficits; Z79.82 Long term (current) use of aspirin; Z87.891 Personal history of nicotine dependence
CPT/HCPCS: 71045; 80048; 83735; 84443; 84484; 85025; 85379; 87631; 93005; 99284; A4216

== ENCOUNTER 2025-04-07 23:06 | Emergency (ER) | payer MEDICAID, SELFPAY ==
[2025-04-07 23:06] VITALS: BP 114/72; BP 115/79; PULSE 88; PULSE 91; RESP 16; RESP 18; TEMP 36.6; O2SAT 100; O2SAT 99; BMI 29.8
--- NOTE | 2025-04-07 23:46 | ED.VIS.FEGU ---
HPI HPI - Female History of Present Illness Chief Complaint: Informant: patient and spouse/S.O. Narrative Narrative: Patient is a 34-year-old female who is a G7, P6 roughly 17 weeks . She denies any vaginal bleeding or discharge or abdominal discomfort. She states that she was at her OBs office this morning and while there reportedly felt decreased movement and they did a ultrasound and documented that the baby's heartbeat was having bouts of irregularity. However reportedly it was still within normal range and there was still documented movement and she was not having signs of active miscarriage so she was discharged home. Patient states that she left the office and got her own Doppler and throughout the day has been tracking the and throughout the day has been tracking the baby's heart rate. She states that she believes the heart rate has continued to be erratic and with this she states she called her OD GRINDER OPERATOR and was advised to come to the hospital for evaluation. PFSH PFSH Medical History Cryptogenic stroke Multiple personality disorder History of Clostridium difficile infection Alcohol use Arthritis Injury of back Injury of head and neck Seizures TIA (transient ischemic attack) Eosinophilic esophagitis Difficulty swallowing History of ulceration History of IBS Electronic cigarette use History of echocardiogram History of stress test Tilt table evaluation Cardiology follow-up encounter Chest pain History of irregular heartbeat History of atrial fibrillation Tachycardia Abnormality of urination Abdominal pain affecting , antepartum 24 weeks gestation of Fungal toenail infection Home Medications ?Medication ?Instructions ?Recorded ?Last Taken ?Type prenat.vits,malgorzata,psf-feed-sgoao tab PO 01/03/25 Unknown History Probiotic PO DAILY 01/10/25 Unknown History aspirin 81 mg tablet 162 mg PO QDAY 03/14/25 Unknown History valacyclovir 500 mg tablet 500 mg PO QDAY 03/14/25 Unknown History (Valtrex) Allergy/AdvReac Type Severity Reaction Status Date / Time metronidazole (From Flagyl) Allergy Upset Verified 04/07/25 23:07 Stomach Phenylpiperazine AdvReac suicidal Verified 04/07/25 23:07 Antidepressant ideation Tetracyclic Antidepressants AdvReac suicidal Verified 04/07/25 23:07 ideation Tricyclic Antidepressants AdvReac suicidal Verified 04/07/25 23:07 and Tricy ideation Family History Maternal Grandfather Hypertension Surgical History S/P dilation and curettage (~10/03/23) Status post hysteroscopy History of cardiac radiofrequency ablation History of esophagogastroduodenoscopy (EGD) History of colonoscopy History of loop electrical excision procedure (LEEP) Status post tubal ligation History of surgery Sterilization Hx of cholecystectomy Social History household members: children Smoking Status: Former smoker how long ago did patient quit smokin.7 yrs alcohol intake: never substance use type: does not use caffeine: Yes what type of physical activity do you participate in: none seatbelt use: always do you feel safe at home: Yes ROS ROS ED Constitutional Constitutional ED: Denies chills or fever(s) Eyes Eyes: Denies blurry vision or change in vision Cardiovascular Cardiovascular: Denies chest pain Respiratory/Chest Respiratory/Chest: Denies cough or dyspnea Gastrointestinal Gastrointestinal: Denies abdominal pain, diarrhea, nausea or vomiting Genitourinary Genitourinary ED: Reports other Details: No vaginal bleeding or discharge noted ; Denies dysuria Musculoskeletal Musculoskeletal: Denies myalgias Integumentary Denies rash Neurologic Neurologic: Denies headache(s) Hematologic/Lymphatic Hematologic/Lymphatic: Denies easy bleeding or easy bruising EXAM Physical Exam Const Vital Signs: 04/07/25 23:06 04/07/25 23:06 Temperature 98 F 97.8 F Temperature Source Temporal Pulse Rate 91 88 Respiratory Rate 16 18 Blood Pressure 115/79 114/72 Blood Pressure Mean 91 86 Pulse Ox 100 99 Oxygen Delivery Method Room Air Positive well nourished and well developed General Appearance ED: well developed; Negative for pallor HEENT HEENT Narrative: Normocephalic atraumatic Eyes PERRL and EOMs intact bilaterally General Eye ED: Negative for scleral icterus Neck supple Resp normal respiratory effort and clear to auscultation bilaterally Cardio regular rate and regular rhythm GI non-tender and non-distended GI Narrative: Abdomen is gravid with fundus consistent with reported gestational age No pain on palpation No voluntary guarding or rigidity. No peritoneal signs Auscultation: normoactive bowel sounds Palpation: soft Extremity normal to inspection and full ROM Extremity Narrative: No asymmetric edema no pitting edema negative Homans' sign bilaterally Neuro oriented x3, CN's II-XII intact bilaterally and no sensory deficits noted Sensorium / Orientation: alert Motor Exam: strength 5/5 throughout Psych mental status grossly normal Skin no rashes or lesions noted and no wounds General Skin Exam: Negative for jaundice or pallor MDM MDM MDM Narrative Medical decision making narrative: Patient arrived to the ER with stable vitals. She did report a history of preeclampsia but at this time her blood pressure does not indicate such. She denies any abdominal pain cramping vaginal bleeding or discharge and therefore I have low concern for miscarriage. I did place an ultrasound on the patient's abdomen at bedside. This confirmed an IUP it did document motion and heart rate was between 150- 160 bpm. I discussed the case with OD GRINDER OPERATOR on-call Dr. Mosqueda. The patient is 17 weeks this is a nonviable state of the . She is not showing vital sign changes or preeclampsia and she is not having abdominal pain or discharge to suggest ruptured placenta or active miscarriage. Therefore there is no intervention that can be performed at this time. Therefore she recommends patient be discharged home and continue to follow-up as an outpatient. Patient was informed of this and repeat vitals remained stable and she is otherwise safe for discharge. History & Record Review Discussion w/independent historian: Patient and Significant other Management Discussion w/another healthcare provider: Rn Ostomy Discharge Plan Triage Chief Complaint: ED Provider: Lukasz Skelton Dx/Rx/DC Orders Clinical Impression: Intrauterine , Anxiety and depression, History of pre-eclampsia Instructions: ED Prescriptions: No Action Probiotic PO DAILY prenat.vits,malgorzata,[id number] Tablet PO aspirin 81 mg tablet 162 mg PO QDAY valacyclovir [Valtrex] 500 mg tablet 500 mg PO QDAY Primary Care Provider: Deshaun Chao Referrals: Katalina Mosqueda CNM [Med Staff - [facility] Prof, Obstetrics] Deshaun Chao MD [Primary Care Provider, Family Practice] Activity Restrictions/Additional Instructions: At this time the bedside ultrasound does show activity and heart rate is in the range of 150-160 which is normal. Unfortunately at 17 weeks along there is no potential intervention that can be provided for any type of distress or arrhythmia. Continue to follow-up with your OD GRINDER OPERATOR for continued evaluation. If you develop severe abdominal pain/cramping or bleeding this could indicate potential miscarriage and return to the ER for repeat evaluation Print Language: Thai Disposition Disposition: Home, Self Care Discharge Date/Time: 04/07/25 23:54
== END 2025-04-07 23:54 | disposition home or self-care (01) ==
PROVIDERS: Emergency Provider Emergency Medicine; PCP Family Medicine; Visit Provider Emergency Medicine
DX: O99.342 Other mental disorders complicating pregnancy, second trimester (principal); F32.A Depression, unspecified; F41.9 Anxiety disorder, unspecified; O09.92 Supervision of high risk pregnancy, unspecified, second trimester; Z3A.17 17 weeks gestation of pregnancy; Z87.891 Personal history of nicotine dependence
CPT/HCPCS: 99282

== ENCOUNTER 2025-05-28 23:30 | Outpatient (CLI) | payer MEDICAID, SELFPAY ==
--- OUTSIDE RECORDS SUMMARY | 2025-05-28 23:38 | XMS RPT_ITS | CCD ---
Author Organization [facility] Care Team Providers Care Transportation Equipment Painter Name Role Phone KarleyKam Unavailable Unavailable RENETTA DAWN Attending Unavailable IMCA Referring Unavailable Davide Chao Primary Care Unavailable RENETTA DAWN Attending Unavailable RENETTA DAWN Referring Unavailable Davide Chao Primary Care Unavailable Davide Chao Primary Care Provider [phone] PROVIDER, UNKNOWN Referring Unavailable Davide Chao Primary Care Unavailable Alexsi Hernadez Attending Unavailable PROVIDER, UNKNOWN Referring Unavailable Davide Chao Primary Care Unavailable UNKNOWN, PROVIDER Attending Unavailable Davide Chao Primary Care Provider [phone] Davide Chao Unavailable [phone] Rm Veras Unavailable Unavailable Davide Chao MD Primary Care Provider Davide Blount Unavailable Unavailable Cheyanne Izaguirre Unavailable Unavailable Son Gunderson Unavailable Davide Chao MD Primary Care Provider [facility] Attending Un available SYSTEM, PROVIDER NOT IN Referring Unavaila ble DAVIDE CHAO Primary Care Unavailable ALEXANDRIA FORRESTER Admitting Unavail able DAVIDE CHAO Primary Care Unavailable BARBARA CREWS Attending Unavailable BARBARA CREWS Admitting Unavailable DAVIDE CHAO Primary Care Unavailable MARICEL SIMEON Attending Unavailable DAVIDE CHAO Primary Care Unavailable TIKA RODRIGUEZ Attending UnavailTIKA Spears Admitting UnavailYURI Bautista Attending Unavailable YURI PALENCIA Referring Unavailable ELDERAGUSTO, DAVIDE Primary Care Unavailable RICHARD, YURI MOORE Admitting Unavailable RICHARD, YURI MOORE Referring Unavailable ZHANNA, DAVIDE Primary Care Unavailable BLANCO, MARICEL MAKENZIE Admitting Unavailable RICHARD, YURI MOORE Attending Unavailable BLANCO, MARICEL MAKENZIE Referring Unavailable ELDERAGUSTO, DVAIDE Primary Care Unavailable Zhanna LIMON, Davide Primary Care Provider PROVIDER, UNKNOWN Attending Unavailable PROVIDER, UNKNOWN Admitting Unavailable PATIENT, SELF Referring Unavailable Davide Chao Unavailable Unavailable Unavailable Andry Rueda Unavailable Zhanna LIMON, Davide Primary Care Provider MIREYA GAGNON Attending Unavailabl e ZHANNA, DAVIDE Primary Care Unavailable Zhanna LIMON, Davide Oglesby Primary Care Provider Davide Chao MD Primary Care Provider Zhanna LIMON, Davide Oglesby Primary Care Provider [phone] Davide Chao Primary Care Provider [phone] Dr. Davide Chao Primary Care Provider Dr. Davide Chao Referring Provider Dr. Yuri Crenshaw Attending Provider DAVIDE CHAO Primary Care Unavailable DIAB, NERY Attending Unavailable ZHANNA, DAVDIE Primary Care Unavailable YANIV PEDERSON P Attending Unavailable ZHANNA, DAVIDE Primary Care Unavailable SKYE, YANIV P Referring Unavailable ELDERAGUSTO, DAVIDE Primary Care Unavailable SKYE, YANIV P Referring Unavailable ELDERAGUSTO, DAVIDE Primary Care Unavailable DIPAK DIETZ Attending U navailable ZHANNA, DAVIDE Primary Care Unavailable ANDRY ECKERT JR. Attending Unav ailable ZHANNA, DAVIDE Primary Care Unavailable Zhanna, Dr. Davide Walsh Primary Care UnaMD ANDRY Mendiola Attending Unavail able MD ANDRY RUEDA Attending Unavail able Zhanna, Dr. Davide Walsh Primary Care MD ANDRY Melgar Referring Unavail able Zhanna, Dr. Davide Walsh Primary Care MD ANDRY Melgar Attending Unavail able MD ANDRY RUEDA Referring Unavail able Elderbrock, Dr. Davide Walsh Primary Care Unav ailable MD ANDRY RUEDA Attending Unavail able MD ANDRY RUEDA Referring Unavail able Elderbrock, Dr. Davide Walsh Primary Care Unav MD ANDRY Esquivel Attending Unavail able MD ANDRY RUEDA Referring Unavail able [place], Dr. Anil Sharma Attending Unavailabl e [place], Dr. Anli Sharma Referring Unavailabl e Elderbrock, Dr. Davide Walsh Primary Care Unav ailMD ANDRY Olivier Attending Unavail able MD ANDRY RUEDA Referring Unavail able [place], Dr. Davide Walsh Primary Care Unav MD ANDRY Esquivel Referring Unavail able MD ANDRY RUEDA Attending Unavail able Elderbrosydney, Dr. Davide Walsh Primary Care Unav ailable Zhanna, Dr. Davide Walsh Primary Care Chiquitav MD ANDRY Esquivel Referring Unavail able MD ANDRY RUEDA Attending Unavail able Zhanna, Dr. Augustine Primary Care Provider Zhanna, Dr. Augustine Referring Provider Dr. Yuri Crenshaw Attending Provider Dr. Melissa Brasher Attending Provider Byron Aranda I Unavailable Unavailable ZHANNA, DAVIDE Oglesby Primary Care Unavailable MELISSA VANG Referring Unavailab SUSANNE Snow Attending Unavailable Davide Chao MD Primary Care Provider TIM Salinas Attending Provider Zhanna, Dr. Davide Walsh Attending Unav ailable Zhanna, Dr. Davide Walsh Primary Care Chiquitav ailable Zhanna, Dr. Davide Walsh Primary Care Yahir Rueda, Dr. Andry Palacios Attending Unavai lablarissa Rueda, Dr. Andry Palacios Referring Unavai geo Valladares, Dr. John Myers Attending Un available Zhanna, Dr. Davide Walsh Primary Care Byron Chen Attending Unavailable Zhanna, Dr. Davide Walsh Primary Care Unav ailable Zhanna, Dr. Davide Walsh Attending Unav ailable Zhanna, Dr. Davide Walsh Primary Care Unav ailable Zhanna, Dr. Davide Walsh Attending Chiuqitav ailable Zhanna, Dr. Davide Walsh Primary Care Unav ailable Zhanna, Dr. Davide Walsh Attending Chiquitav ailable Zhanna, Dr. Davide Walsh Primary Care Chiquitav ailbridgette Chao, Dr. Augustine Primary Care Provider [phone] Dr. Davide Chao Referring Provider [phone] Dr. Melissa Brasher Attending Provider Dr. Yuri Crenshaw Attending Provider Anna REFORESTATION WORKER, REFORESTATION WORKER-C Love Attending Provider [phone] TIM Roach Attending Provider [phone] Dr. Yuri Crenshaw Referring Provider [phone] Dr. Yuri Crenshaw Other Provider TIM Roach Other Provider [phone] Dr. Davide Chao Primary Care Provider [phone] Dr. Davide Chao Referring Provider [phone] Dr. Melissa Brasher Attending Provider [phone] Anna REFORESTATION WORKER, REFORESTATION WORKER-C Love Other Provider Brad, ANTONIM Laura Referring Provider Brad, CNM Laura Other Provider Dr. Pam Morales Attending Provider Dr. Davide Chao Primary Care Provider Dr. Davide Chao Referring Provider TIM Salinas Attending Provider Davide Chao MD Primary Care Provider Dr. Davide Chao Primary Care Provider Dr. Davide Chao Referring Provider [phone] Dr. Yuri Crenshaw Attending Provider [phone] TIM Roach Referring Provider Dr. Yuri Crenshaw Admit Provider Dr. Melissa Brasher Referring Provider [phone] Dr. Melissa Brasher Other Provider Davide Chao MD Primary Care Provider GUMPRETERESA, ALINA Referring Unavailable DAVIDE CHAO Primary Care Unavailable GUMPRETERESA, ALINA Attending Unavailable MAXX, ALINA Referring Unavailable DAVIDE CHAO Primary Care Unavailable ALINA ALVARADO Attending Unavailable Dr. Davide Chao Primary Care Provider TIM Roach Attending Provider [phone] TIM Roach Referring Provider [phone] TIM Roach Other Provider [phone] Davide Chao Referring Provider Dr. Yuri Crenshaw Admit Provider Dr. Yuri Crenshaw Attending Provider [phone] Dr. Yuri Crenshaw Referring Provider [phone] Dr. Yuri Crenshaw Other Provider Dr. Melissa Brasher Attending Provider [phone] Dr. Melissa Brasher Referring Provider [phone] Dr. Melissa Brasher Other Provider Anna REFORESTATION WORKER, REFORESTATION WORKER-C Love Attending Provider [phone] Dr. Davide Chao Primary Care Provider Dr. Davide Chao Referring Provider Dr. Davide Chao Primary Care Provider [phone] Dr. Davide Chao Referring Provider Anna REFORESTATION WORKER, REFORESTATION WORKER-C Love Attending Provider [phone] Dr. Melissa Brasher Attending Provider [phone] Dr. Melissa Brasher Referring Provider Dr. Melissa Brasher Other Provider Davide Chao MD Primary Care Provider DAVIDE CHAO Primary Care UnavailSON Flannery W Attending Unavailable DAVIDE CHAO Primary Care Unavaila HCEYANNE Bassett Attending Unavailable DAVIDE CHAO Primary Care UnavailSON Flannery W Attending Unavailable DR DAVIDE CHAO MD Primary Care Physician Tannhof BEET END SUPERVISOR.Harini MESA Unavailable Frank BEET END SUPERVISOR.BONITA, Isaac Unavailable ALINA ALVARADO Referring Unavailable ALINA ALVARADO Attending Unavailable DAVIDE CHAO Primary Care Unavailable Dr. Davide Chao MD Primary Care Provider Dr. Davide Chao MD Referring Provider Anna REFORESTATION WORKER-CLove Attending Provider Anna REFORESTATION WORKER-CLove Referring Provider Laura Salinas CNM Attending Provider Laura Salinas CNM Referring Provider Dr. Melissa Brasher DO Attending Provider Dr. Melissa Brasher DO Referring Provider [facility] BEET END SUPERVISOR.Harini MESA Unavailable Dr. Davide Chao MD Primary Care Provider [phone] Dr. Davide Chao MD Referring Provider [facility] BEET END SUPERVISOR.Harini MESA Unavailable Jeanette Roach CNM Attending Provider Jeanette Roach CNM Referring Provider Dr. Davide Chao MD Primary Care Provider Dr. Ryan Pearson DO Emergency Provider [phone] ELDERBROCK, DAVIDE D Consulting Unavailable BATRES, TRISTIN DO Attending Unavailable BATRES, TRISTIN DO Primary Care Unavailable BATRES, TRISTIN DO Admitting Unavailable ELDERBROCK, DAVIDE D Referring Unavailable PROVIDER, UNKNOWN Consulting Unavailable Dr. Davide Chao MD Primary Care Provider Dr. Melissa Brasher DO Attending Provider Keith Saxena DO, Dr. Torres Referring Provider Dr. Ryan Pearson DO Attending Provider Dr. Bre Madrid MD Attending Provider Keith Saxena DO, Dr. Torres Other Provider ALINA ALVARADO Attending Provider ALINA ALVARADO Referring Provider Dr. Davide Chao MD Referring Provider Julius LIMON, Dr. Díaz Attending Provider Ten LIMON, Dr. Figueroa Attending Provider DAVIDE CHAO Primary Care Unavailable MAXX, ALINA Attending Unavailable SELF, SELF Referring Unavailable Davide Chao MD Primary Care Provider Tom RODRIGUEZ, Bindu Unavailable Unavailable BATRES, TRISTIN DO Admitting Unavailable BATRES, TRISTIN DO Attending Unavailable DAVIDE CHAO Referring Unavailable BATRES, TRISTIN DO Primary Care Unavailable DAVIDE CHAO Consulting Unavailable PROVIDER, UNKNOWN Consulting Unavailable LEMASTERS JUN D Admitting Unavailable LEMASTERS, JUN D Attending Unavailable ZHANNA, DAVIDE D Referring Unavailable LEMASTERS, JUN D Primary Care Unavailable DAVIDE CHAO Consulting Unavailable PROVIDER, UNKNOWN Consulting Unavailable MANFREDANTONETTE Admitting Unavailable MANFREDANTONETTE Attending Unavailable ANTONETTE SHEARER Primary Care Unavailable DAVIDE CHAO Consulting Unavailable PROVIDER, UNKNOWN Consulting Unavailable Dr. Davide Chao MD Primary Care Physician Dr. Bre Madrid MD Attending Physician Dr. Melissa Brasher DO Attending Physician Dr. Melissa Brasher DO Referring Provider Dr. Melissa Brasher DO Nurse Practitioner Bruce LIMON, Dr. Bocanegra Attending Physician [phone] Bruce LIMON, Dr. Bocanegra Referring Provider [phone] ALINA ALVARADO Attending Physician Jeanette Roach CNM Attending Physician Jeanette Roach CNM Referring Provider [phone] Ten LIMON, Dr. Figueroa Attending Physician Tolu LIMON, Dr. Alexis Attending Physician [phone] Devon LIMON, Dr. Jolly Emergency Department Physici an Unavailable Yuri Crenshaw Attending Unavailable Elderbrock, Davide Primary Care Unavailable Vande Melissa Saxena Attending Unavailabl e Elderbrock, Davide Primary Care Unavailable Salinas, Laura Referring Unavailable Salinas, Luara Attending Unavailable Elderbrock, Davide Primary Care Unavailable Salinas, Laura Attending Unavailable Elderbrock, Davide Referring Unavailable Elderbrock, Davide Primary Care Unavailable Elderbrock, Davide Referring Unavailable Anna, Love Attending Unavailable Elderbrock, Davide Primary Care Unavailable SatReuben hendrix Attending Unavailable Elderbrock, Davide Referring Unavailable Elderbrock, Davide Primary Care Unavailable BruceDaljit Referring Unavailable Daljit Barrera Attending Unavailable Elderbrock, Davide Primary Care Unavailable Vande Melissa Saxena Attending Unavailabl e Elderbrock, Davide Primary Care Unavailable Elderbrock, Davide Primary Care Unavailable Anna, Love Referring Unavailable Anna Love Attending Unavailable SatRene hendrixa Attending Unavailable Elderbrock, Davide Referring Unavailable Elderbrock, Davide Primary Care Unavailable JITTIRAT, 1 Referring Unavailable JITTIRAT, 1 Attending Unavailable Elderbrock, Davide Primary Care Unavailable Melissa Brasher Attending Unavailabl e Vande VeldeMelissa Referring Unavailabl e Elderbrock, Davide Primary Care Unavailable Melissa Brasher Attending Unavailabl e Vande Velde, Melissa Referring Unavailabl e Elderbrock, Davide Primary Care Unavailable Melissa Brasher Attending Unavailabl e Govinde Melissa Saxena Referring Unavailabl e Elderbrock, Davide Primary Care Unavailable Jeanette Roach Referring Unavailable Jeanette Roach Attending Unavailable Elderagusto, Davide Primary Care Unavailable Vande Velde, Melissa Attending Unavailabl e Vande Velde, Melissa Referring Unavailabl e Elderbrock, Davide Primary Care Unavailable Elderagusto, Davide Primary Care Unavailable Vande Velde, Melissa Attending Unavailabl e Elderbrock, Davide Primary Care Unavailable Vande Velde, Melissa Attending Unavailabl e Bruce, Daljit Referring Unavailable Bruce, Daljit Attending Unavailable Elderwoodson, Davide Primary Care Unavailable Vande Velde, Melissa Attending Unavailabl e Elderbrosydney, Davide Primary Care Unavailable Elderagusto, Davide Referring Unavailable Vande Velde, Melissa Attending Unavailabl e Vande Velde, Melissa Referring Unavailabl e [place]brock, Davide Primary Care Unavailable Vande Hemanth, Melissa Attending Unavailabl e Vande Velde, Melissa Consulting Unavailabl e Vande Velde, Melissa Referring Unavailabl e Elderbrock, Davide Primary Care Unavailable ElderDavide liz Referring Unavailable Jeanette Roach Attending Unavailable Elderagusto, Davide Primary Care Unavailable Jeanette Roach Referring Unavailable Jeanette Roach Attending Unavailable Elderagusto, Davide Primary Care Unavailable Ryan Pearson Attending Unavailable Elderagusto, Davide Primary Care Unavailable Lukasz Skelton Attending Unavailable ElderDavide liz Primary Care Unavailable Shanae Osorio Attending Unavailable Davide Chao Primary Care Unavailable Laura Salinas Referring Unavailable Laura Salinas Attending Unavailable Davide Chao Primary Care Unavailable ISAAC SHEA MD Attending Unavailable ZHANNA LIMON, DR AUGUSTINE Primary Care Unavailab MIGUEL Nair MD Attending Unavail able ZHANNA LIMON, DR AUGUSTINE Primary Care Unavailab ANTONETTE Parekh MD Attending Unavailable ZHANNA LIMON, DR AUGUSTINE Primary Care Unavailab JERRY Stanley Attending Unavailab larissa CHAO MD, DR AUGUSTINE Primary Care Unavailab DAVIDE Alcantar Primary Care Unavailable MARINA PONCE Attending Unavailable DAVIDE CHAO Primary Care Unavailable MARINA PONCE Referring Unavailable PAM ROBERTSON Attending Unavailable DAVIDE CHAO Primary Care Unavailable KATALINA COOPER Referring Unavailable DAVIDE CHAO Primary Care Unavailable ELDERBROCK, DAVIDE D Primary Care Unavailable TIZZANO, PAM P Referring Unavailable ELDERBROCK, DAVIDE D Primary Care Unavailable ELDERBROCK, DAVIDE D Referring Unavailable ELDERBROCK, DAVIDE D Primary Care Unavailable TIZZANO, PAM P Referring Unavailable COOPER, KATALINA Attending Unavailable ELDERBROCK, DAVIDE D Primary Care Unavailable COOPER, KATALINA Referring Unavailable COOPER, KATALINA Attending Unavailable COOPER, KATALINA Referring Unavailable ELDERBROCK, DAVIDE D Primary Care Unavailable COOPER, KATALINA Referring Unavailable ELDERBROCK, DAVIDE D Primary Care Unavailable CHRISTIANO UMANA Attending Unavailable ELDERBROCK, DAVIDE D Primary Care Unavailable COOPER, KATALINA Attending Unavailable COOPER, KATALINA Referring Unavailable ELDERBROCK, DAVIDE D Primary Care Unavailable ELDERBROCK, DAVIDE D Primary Care Unavailable ELDERBROCK, DAVIDE D Attending Unavailable ELDERBROCK, DAVIDE D Primary Care Unavailable ELDERBROCK, DAVIDE D Attending Unavailable ELDERBROCK, DAVIDE D Primary Care Unavailable ELDERBROCK, DAVIDE D Referring Unavailable Deannck , Dr. Augustine Primary Care Physician Keith Saxena DO, Dr. Torres Attending Physician Dr. Melissa Brasher DO Referring Provider Dr. Melissa Brasher DO Nurse Practitioner Bruce LIMON, Dr. Bocanegra Attending Physician Dr. Daljit Barrera MD Referring Provider ALINA ALVARADO Attending Physician ALINA ALVARADO Referring Provider Dr. Davide Chao MD Referring Provider Jeanette Roach CNM Attending Physician Jeanette Roach CNM Referring Provider Ten LIMON, Dr. Figueroa Attending Physician Tolu LIMON, Dr. Alexis Attending Physician Devon LIMON, Dr. Jolly Attending Physician Unavaila toibas Osorio MD, Dr. Jolly Emergency Department Physici an Unavailable Costa GONZALEZ, Dr. Lal Emergency Department Physic willy Allergies Allergy Classification Reported Allergen(s) Allergy Type Date of Onset Reaction(s) Facility Penicillins (antibiotic) (2 sources) Penicillins Drug Allergy 05-13-20 15 [facility] (7 sources) Penicillins; Translations: [PENICILLINS] Drug allergy (disorder) 05-13-20 15 [facility] Repository (5 sources) TRICYCLIC COMPOUNDS; Translations: [TRICYCLIC COMPOUNDS] Propensity to adverse reactions (disorder) 08-16-19 12 Other: See Comments [facility] Repository (1 source) Penicillin; Translations: [PENICILLIN G] Drug Allergy [facility] Repository (4 sources) Tricyclic Antidepressants; Translations: [TRICYCLIC ANTIDEPRESSANTS] Propensity to adverse reactions to drug (disorder) 08-16-19 12 [facility] Repository (15 sources) Penicillins; Translations: [Penicillins] Allergy to drug (finding) [facility] [place] Work Phone: (15 sources) Tetracycline; Translations: [tetracycline] Drug Allergy [facility] Work Phone: (20 sources) guaiFENesin; Translations: [GUAIFENESIN] Drug Allergy 10-31-19 19 Other: See Comments [facility] (20 sources) Lactose; Translations: [LACTOSE] Drug Allergy 08-21-19 GI Upset, Dyspepsia [facility] Work Phone: (20 sources) metroNIDAZOLE; Translations: [METRONIDAZOLE HCL] Drug Allergy 09-27-19 19 GI Upset [facility] Work Phone: (20 sources) Dog Dander; Translations: [DOG DANDER] Drug Allergy 10-26-19 19 Other: See Comments [facility] (20 sources) Tricyclic Antidepressants And Tricyclic Compounds; Translations: [TRICYCLIC ANTIDEPRESSANTS AND TRICYCLIC COMPOUNDS] Drug Intolerance 08-16-19 12 Other: See Comments [facility] Work Phone: (1 source) Penicillins Propensity to adverse reactions to drug 09-19-19 19 [facility] (3 sources) Antidepressants Propensity to adverse reactions 07-29-19 23 Other [facility] (20 sources) metroNIDAZOLE Drug Allergy 09-27-19 19 Dyspepsia [facility] (3 sources) *Animal Dander Propensity to adverse reactions to substance 10-26-19 [facility] (20 sources) traZODone Drug Allergy 10-29-19 suicidal ideation [facility] (20 sources) Tetracyclic Antidepressants Propensity to adverse reactions 10-29-19 suicidal ideation [facility] (20 sources) Tricyclic Antidepressants and Tricy Propensity to adverse reactions 10-29-19 23 suicidal ideation [facility] (2 sources) guaiFENesin Drug Allergy 10-31-19 19 [facility] (2 sources) Lactose (non-medical use) Propensity to adverse reactions to drug 08-21-19 19 Dyspepsia [facility] (8 sources) Tricyclic Antidepressants And Tricyclic Compounds Drug Intolerance 08-16-19 12 Other: See Comments [facility] Work Phone: (1 source) metroNIDAZOLE Drug Allergy 04-07-20 25 [facility] Repository (1 source) Tricyclic Antidepressants and Tricy Drug allergy (disorder) 04-07-20 [facility] Repository (1 source) Tetracyclic Antidepressants Drug allergy (disorder) 04-07-20 [facility] Repository (1 source) Phenylpiperazine Antidepressant Drug allergy (disorder) 04-07-20 [facility] Repository Medications Current Medications Medication Drug Class(es) [...] 0 11/21/2021 12/01/2021 Active aspirin 81 mg oral tablet (11 sources) Platelet Aggregation Inhibitor, Nonsteroidal Anti-inflammatory Drug Start: 03-14-2025 take 2 tablets by mouth once daily Start: 02-10-2025 take 2 tablets by mo [facility] once daily aspirin, enteric coated (ECOTRIN LOW STRENGTH) 81 mg EC tablet Take 2 tablets by mouth once daily. 180 tablet 3 02/10/2025 Active Start: 02-10-2025 End: 02-10-2025 take 1 tablet by mouth once daily aspirin, enteric coated (ECOTRIN LOW STRENGTH) 81 mg EC tablet Take 1 tablet by mouth once daily. 90 tablet 3 02/10/2025 02/10/2025 Discontinued Start: 09-27-2020 End: 09-26-2020 aspirin EC tablet [...] to 60 days. 21 day ethinyl estradiol 0.610894 mg/hr / etonogestrel 0.005 mg/hr vaginal system (11 sources) Progestin, Estrogen Start: 08-30-2018 NuvaRing 0.120 mg-0.015 mg/24 hours vaginal ring Dose = 1 EA, Vaginal, q4wk Start Date: 08/30/18 Status: Ordered Medication Dispense Status: Completed Total Allowed Fills: 1 Fills Dispensed: 0 End: 07-13-2022 etonogestrel-ethinyl estradi ol (NUVARING) 0.12-0.015 [...] placebo. 28 tablet 1 06/07/2023 08/02/2023 Active meclizine hydrochloride 25 mg oral tablet (1 source) Antiemetic Start: 03-17-2021 End: 03-23-2021 take 1 tablet by mouth every six [...] effect. Use care when operating dangerous machinery. Starke (Nk) (2 sources) Start: 11-23-2024 Starke (Nk) Active November 23, 2024 12:00am ondansetron 4 mg oral tablet (20 sources) Serotonin-3 Receptor Antagonist Start: 02-10-2025 take 1 tablet by mouth every eight hours as needed for nausea ondansetron (ZOFRAN) 4 mg tablet Indications: with uncertain dates in first trimester (HCC) Take 1 tablet by mouth every 8 hours as needed for nausea/vomiting. 30 tablet 02/10/2025 Active Start: 02-05-2025 End: 02-10-2025 ondansetron 4 mg oral tablet , disintegrating Dose : 4 mg = 1 tab(s), Oral, q8h, X 5 day(s), # 15 tab(s), 0 Refill(s), 02/10/25 6:02:00 PM EDT Start Date: 02/05/25 Stop Date: 02/10/25 Status: Ordered Medication Dispense Status: Completed Quantity: 15.0 Unit: tab(s) Total Allowed Fills: 1 Fills Dispensed: 0 Start: 08-10-2023 End: 08-10-2023 take 1 tablet by mouth every six [...] every 6 hours as needed for nausea/vomiting. 12 hr orphenadrine citrate 100 mg extended release oral tablet (5 sources) Muscle Relaxant Start: 07-14-19 take 1 tablet by mouth twice daily as needed for muscle spasms orphenadrine (NORFLEX) 100 MG extended release tablet Take 1 tablet by mouth 2 times daily as needed for Muscle spasms 10 tablet 0 07/14/2022 Active Start: 07-13-2022 End: 07-13-2022 orphenadrine (NORFLEX) injec tion 30 mg Prenat.Vits,Malgorzata,Boe-Ybmz-Ilk ic tablet (9 sources) Start: 01-03-2025 Start: 01-03-2025 Start: 01-03-2025 Prenat.Vits,Ca l,Viw-Turf-Aluoh tablet Active {tbl} PO January 03, 2025 12:00am 1 oral capsule (2 sources) take 1 capsule by mouth once daily 1 oral capsule ; 1 cap(s) orally once a day Quantity: 0 Refills: 0 Ordered: 14-Jul-2021 Elba Lowery Generic Substitution Allowed Hvpwcldg-Kwl-Kt-FA (PRE- PO) (3 sources) take 1 capsule by mouth once daily Hobbmigm-Qfj-Ih-FA (PRE-CARLTON PO) Take 1 capsule by mouth daily. 0 Active vit,malgorzata 74/iron/folic ( VITAMIN 1+1 ORAL) (9 sources) vit,malgorzata 74/iron/folic ( VITAMIN 1+1 ORAL) Take by mouth once daily. Active Probiotic (6 sources) Start: 01-10-2025 Start: 01-10-2025 Start: 01-10-2025 Probiotic Acti ve PO DAILY January 10, 2025 12:00am sotalol hydrochloride 80 mg oral tablet (6 sources) Antiarrhythmic Start: 01-27-2017 End: 07-13-2022 sotalol 80 mg oral tablet Dose : 80 mg = 1 tab(s), Oral, BID, # 180 tab(s), 0 Refill(s) Start Date: 01/27/17 Status: Ordered Medication Dispense Status: Completed Quantity: 180.0 Unit: tab(s) Total Allowed Fills: 1 Fills Dispensed: 0 End: 06-23-2021 sotalol 80 MG Tab tablet Deandre e 40 mg by mouth 2 times daily. 0 06/23/2021 Discontinued (Stop Taking at Discharge) valACYclovir 500 mg oral tablet (20 sources) Herpesvirus Nucleoside Analog DNA Polymerase Inhibitor, Herpes Simplex Virus Nucleoside Analog DNA Polymerase Inhibitor, Herpes Zoster Virus Nucleoside Analog DNA Polymerase Inhibitor Start: 03-14-2025 take 1 tablet by mouth once daily Start: 05-03-2021 End: 08-19-2024 take 1 tablet by mouth once daily Valacyclovir (Valtrex) 500 mg Tablet Discontinued 500 mg PO DAILY June 25, 2021 12:00am August 17, 2022 1:08pm prevention Start: 01-07-2021 take 1 tablet by abraham twice daily valACYclovir HCl - 500 MG Oral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 suspected SVT and infrequent PVCs. During the study patient had no inducible arrhythmia with programmed electrical stimulation on isoproterenol. No ablation was performed. Patient was seen and evaluated at [facility] 12/22/2018. It was felt her symptoms of palpitation were suggestive of PVCs but the PVC burden was not significant Enough to warrant EP study or ablation. It was recommended she continue medical therapy and discharged from the clinic. There is a reported history of stroke in 2020, characterized by facial drooping and persistent subjective neurological changes since that event. She also reports a history suggestive of postural orthostatic tachycardia syndrome (POTS), with symptoms of orthostatic hypotension, palpitations, and dyspnea on standing. The patient describes labile blood pressure, with episodes of both hypotension and intermittent hypertension, particularly following her most recent two years ago. Previous trials of calcium channel blockers and beta blockers were not tolerated due to exacerbation of hypotension. She has attempted non- pharmacologic measures such as increased salt intake and use of compression stockings, with unclear benefit. The patient reports ongoing symptoms of palpitations, described as a rapid heart rate, chest pounding, and dizziness, which have been present since age 21. She notes that these episodes are often brief and infrequent, making them difficult to capture on ambulatory monitoring. She distinguishes between sensations of premature ventricular contractions (PVCs), atrial fibrillation, and other arrhythmias based on symptom quality. She denies recent episodes consistent with atrial fibrillation, noting that prior episodes were infrequent and of short duration. She also reports symptoms consistent with orthostatic intolerance, including dyspnea and tachycardia upon standing. There is a history of a transient ischemic attack or stroke in 2020, with residual subjective symptoms. Additional patient data: Patient is currently in her 13-week with her seventh . Holter monitor performed from December 31 through January 08, 2025, willian tilt table test performed on June 2023 showed normal blood pressure response orthostatic tilt as well as nitroglycerin provocation. Diagnostic electrophysiology study performed 2014 at [facility] showed no inducible arrhythmias and no ablation was performed. Holter monitoring's have shown PVCs but no sustained arrhythmias. Echocardiogram performed June 01, 2021 showed normal LVEF 50-55% with normal valve function. Holter monitor performed May 17 through May 19, 2021 showed no arrhythmias. There were 237 PVCs representing 0.1% of the recording with 3 PACs. Specifically there is no evidence of atrial fibrillation. Review of systems: CONSTITUTIONAL: Fatigue positive, Fever negative RESPIRATORY: Shortness of breath positive (when standing up), Cough negative, Wheezing negative CARDIOVASCULAR: Chest pain negative, Palpitations positive (heart racing, pounding, fluttering, skipped beats), Edema negative, Pain while walking negative GASTROINTESTINAL: Nausea negative, Vomiting negative, Abdominal pain negative, Blood in stool negative, Constipation negative, Diarrhea negative, Heartburn negative, Loss of appetite negative METABOLIC/ENDOCRINE: Heat intolerance negative, Cold intolerance negative, Excessive thirst negative, Excessive hunger negative NEUROLOGICAL: Dizziness positive (especially with tachycardia or standing up), Extremity numbness negative, Extremity weakness negative, Headaches negative, Seizures negative, Tremors negative PSYCHIATRIC: Anxiety negative, Depression negative MUSCULOSKELETAL: Back pain negative, Joint pain negative, Joint swelling negative, Neck pain negative HEMATOLOGIC: Easily bleeds negative, Easily bruises negative, Lymphedema negative, Issues with blood clots negative IMMUNOLOGIC: Food allergies negative, Seasonal allergies negative Physical examination: GENERAL APPEARANCE: The patient is alert, oriented, and conversant with normal speech. She is well-groomed and in no acute distress. She is able to participate in the examination and follow comman (more content not included)... Normal [facility] [id number] PLUSon 03-10-2025 Cell-free DNA./Cell-free DNA.total Dosage of chromosome-specific cfDNA (cfDNA) [Molar fraction] 24% Normal [facility] Comment on above: Order Comment: Speci men Type: SWAB Ordering Facility: [facility] Address: [address] [place] [address] Performed By: #### B VAMP, 97313-1 #### [facility] CLIA [id number] [address] [place] [address] [place] Chr 13+18+21+X+Y aneuploidy Dosage of chromosome-specific cfDNA Ql (cfDNA) Negative [facility] Comment on above: Order Comment: Speci men Type: SWAB Ordering Facility: [facility] Address: [address] [place] [address] Performed By: #### B VAMP, 38656-7 #### [facility] CLIA [id number] [address] [place] [address] [place] Chr 21 trisomy Dosage of chromosome-specific cfDNA Ql (cfDNA) Negative [facility] Comment on above: Order Comment: Speci men Type: SWAB Ordering Facility: [facility] Address: [address] [place] [address] Performed By: #### B VAMP, 20187-8 #### [facility] CLIA [id number] [address] [place] [address] [place] Chr X and Y aneuploidy risk Sequencing Ql (cfDNA) [Interp] Not detected [facility] Comment on above: Order Comment: Speci men Type: SWAB Ordering Facility: [facility] Address: [address] [place] [address] Result Comment: Not Detected Not Detected Performed By: #### B VAMP, 22117-0 #### [facility] CLIA [id number] [address] [place] [address] [place] Citation Subhash (Reference lab test) Comment [facility] Comment on above: Order Comment: Speci men Type: SWAB Ordering Facility: [facility] Address: [address] [place] [address] Result Comment: 1. P fer BARBOSA, et al. Padma Med. 2012;14(3):296-305. 2. Nina WONG et al. Prenat Diag. 2013;33(6):591-597. 3. Mark Rodriguez et al. Clin Chem. 2015 Apr;61(4):608-616. 4. Jessa BARBOSA, et al. Padma Med. 2011;13(11):913-920. 5. ACOG/SM[facility] Practice Bulletin No. 226, Mar 2020. Performed By: #### B VAMP, 15322-1 #### [facility] CLIA [id number] [address] [place] [address] [place] Gestational age Estimated from conception date Reid Normal [facility] Comment on above: Order Comment: Speci men Type: SWAB Ordering Facility: [facility] Address: [address] [place] [address] Performed By: #### Adria VAMP, 58390-1 #### [facility] CLIA [id number] [address] [place] [address] [place] GESTATIONALAGE AGE > OR = 9W Yes Normal [facility] Comment on above: Order Comment: Speci men Type: SWAB Ordering Facility: [facility] Address: [address] [place] [address] Performed By: #### B VAMP, 75255-5 #### [facility] CLIA [id number] [address] [place] [address] [place] Laboratory comment Subhash (Report) Comment [facility] Comment on above: Order Comment: Speci men Type: SWAB Ordering Facility: [facility] Address: [address] [place] [address] Result Comment: The MaterniT(R) 21 PLUS laboratory-developed test (LDT) analyzes circulating cell-free DNA from a maternal blood sample. This test is used for screening purposes and not diagnostic. Clinical correlation is recommended. Validation data on twin pregnancies is limited and the ability of this test to detect aneuploidy in higher multiple gestations has not yet been validated. Performed By: #### B VAMP, 41688-0 #### [facility] CLIA [id number] [address] [place] [address] clinical laboratory medical director name Nom (Provider) Comment [facility] Comment on above: Order Comment: Speci men Type: SWAB Ordering Facility: [facility] Address: [address] [place] [address] Result Comment: This specimen showed an expected representation of chromosome 21, 18 and 13 material. Clinical correlation is suggested. Comment Connor Guevara MD, PhD, Director, [employer] Performed By: #### Adria VAMP, 27286-4 #### [facility] CLIA [id number] [address] [place] [address] LIMITATIONS OF THE TEST Comment [facility] Comment on above: Order Comment: Speci men Type: SWAB Ordering Facility: [facility] Address: [address] [place] [address] Result Comment: Whil e the results of these tests are highly reliable, discordant results, including inaccurate sex prediction, may occur due to placental, maternal, or mosaicism or neoplasm; vanishing twin; prior maternal organ transplant; or other causes. These tests are screening tests and not diagnostic; they do not replace the accuracy and precision of diagnosis with CVS or amniocentesis. A patient with a positive test result should be referred for genetic counseling and offered invasive diagnosis for confirmation of test results.[5] The results of this testing, including the benefits and limitations, should be discussed with a qualified healthcare provider. management decisions, including termination of the , should not be based on the results of these tests alone. The healthcare provider is responsible for the use of this information in the management of their patient. Sex chromosomal aneuploidies are not reportable for known multiple gestations. A negative result does not ensure an unaffected nor does it exclude the possibility of other chromosomal abnormalities or defects which are not a part of these tests. An uninformative result may be reported, the causes of which may include, but are not limited to, insufficient sequencing coverage, noise or artifacts in the region, amplification or sequencing bias, or insufficient fraction. These tests are not intended to identify pregnancies at risk for neural tube defects or ventral wall defects. Testing for whole chromosome abnormalities (including sex chromosomes) and for subchromosomal abnormalities could lead to the potential discovery of both and maternal genomic abnormalities that could have major, minor, or no, clinical significance. Evaluating the significance of a positive or a non-reportable result may involve both invasive testing and additional studies on the mother. Such investigations may lead to a diagnosis of maternal chromosomal or subchromosomal abnormalities, which on occasion may be associated with benign or malignant maternal neoplasms. These tests may not accurately identify triploidy, balanced rearrangements, or the precise location of subchromosomal duplications or deletions; these may be detected by diagnosis with CVS or amniocentesis. The ability to report results may be impacted by maternal BMI, maternal weight, maternal systemic lupus erythematosus (SLE) and/or by certain pharmaceutical agents such as low molecular weight heparin (for example: Lovenox(R), Xaparin(R), Clexane(R) and Fragmin(R)). Performed By: #### Adria VAMP, 76488-1 #### [facility] CLIA [id number] [address] [place] [address] [place] [facility] Monosomy X risk Dosage of chromosome-specific cfDNA Ql (Plasma cell-free+WBC DNA) [Interp] Not detected Normal [facility] Comment on above: Order Comment: Casandra moran Type: SWAB Ordering Facility: [facility] Address: [address] [place] [address] Performed By: #### Adria VAMP, 31116-2 #### [facility] CLIA [id number] [address] [place] [address] [place] NEGATIVE PREDICTIVE VALUE Note Normal [facility] Comment on above: Order Comment: Casandra moran Type: SWAB Ordering Facility: [facility] Address: [address] [place] [address] Result Comment: The Negative Predictive Value (NPV) for trisomy 21, 18, and 13 is greater than 99%. The NPV for SCA and ESS cannot be calculated as SCA and ESS are only reported when an abnormality is detected. Performed By: #### B ZORAIDA, 64643-4 #### [facility] CLIA [id number] [address] [place] [address] [place] [id number] [facility] PERFORMANCE CHARACTERISTICS Note Normal [facility] Comment on above: Order Comment: Speci men Type: SWAB Ordering Facility: [facility] Address: [address] [place], [place] [address] Result Comment: ! Sex ! Accuracy: 99.4% ! ! ! ! Region (associated syndrome) ! Est. Sens# ! Est. Spec ! ! ! ! Trisomy 21 (Down Syndrome) ! 99.1% ! 99.9% ! ! ! ! Trisomy 18 (Lazo Syndrome) ! >99.9% ! 99.6% ! ! ! ! Trisomy 13 ([place] Syndrome) ! 91.7% ! 99.7% ! ! ! ! Sex Chromosome Aneuploidies## ! 96.2% ! 99.7% ! ! ! * As reported in ISCA database nstd37 [https://www.ncbi.nlm.nih.gov/dbvar/studies/nstd37/ ] # Estimated Sensitivity. Sensitivity estimated across the observed size distribution of each syndrome [per ISCA database nstd37] and across the range of fractions observed in routine clinical NIPT. Actual sensitivity can also be influenced by other factors such as the size of the event, total sequence counts, amplification bias, or sequence bias. ## Reid gestation only. Performed By: #### Adria CONWAY, 46590-9 #### [facility] CLIA [id number] [address] [place] [address] [place] POSITIVE PREDICTIVE VALUE N/A [facility] Comment on above: Order Comment: Speci men Type: SWAB Ordering Facility: [facility] Address: [address] [place] [address] Performed By: #### Adria CONWAY, 74699-0 #### [facility] CLIA [id number] [address] [place] [address] [place] Reference Lab Test Method Comment [facility] Comment on above: Order Comment: Speci men Type: SWAB Ordering Facility: [facility] Address: [address] [place] [address] Result Comment: Circ ulating cell-free DNA was purified from the plasma component of maternal blood. The extracted DNA was then converted into a genomic DNA library for aneuploidy analysis of chromosomes 21, 18, and 13 via next generation sequencing.[1] Optional findings based on the test order include sex chromosome aneuploidy (SCA)[2], and enhanced sequencing series (ESS)[3], which will only be reported on as an additional finding when an abnormality is detected. SCA testing includes information on X and Y representation, while ESS testing includes deletions in selected regions (22q, 15q, 11q, 8q, 5p, 4p, 1p) and trisomy of chromosomes 16 and 22. Performed By: #### B VAMP, 94598-4 #### [facility] CLIA [id number] [address] [place] [address] [place] Service comment (Unsp spec) [Interp] Comment [facility] Comment on above: Order Comment: Speci men Type: SWAB Ordering Facility: [facility] Address: [address] [place] [address] Result Comment: [email or web address] is a subsidiary of [employer], using the brand [employer]. This test was developed and its performance characteristics determined by [employer]. It has not been cleared or approved by the Food and Drug Administration. This laboratory is certified under the Clinical Laboratory Improvement Amendments (CLIA) as qualified to perform high complexity clinical laboratory testing and accredited by the [employer] ([employer]). If there is future clinical need for adding MaterniT GENOME testing, this specimen will be available until term. [place] samples will not be retained beyond 60 days. [place] patients will have to send a new sample for re-sequencing ([facility] Test Code: 762999). Performed By: #### B VAMP, 16060-4 #### [facility] CLIA [id number] [address] [place] [address] [place] [facility] Sex Dosage of chromosome-specific cfDNA Nom (cfDNA) Comment [facility] Comment on above: Order Comment: Speci men Type: SWAB Ordering Facility: [facility] Address: [address] [place] [address] Result Comment: Cons istent with Male Performed By: #### B VAMP, 76150-1 #### [facility] CLIA [id number] [address] [place] [address] [facility] [place] Test performance information Subhash (Unsp spec) Comment [facility] Comment on above: Order Comment: Speci men Type: SWAB Ordering Facility: [facility] Address: [address] [place] [address] Result Comment: The performance characteristics of the MaterniT(R) 21 PLUS laboratory-developed test (LDT) have been determined in a clinical validation study with women at increased risk for chromosomal aneuploidy.[1-4] Performed By: #### Adria VAMP, 31723-5 #### [facility] CLIA [id number] [address] [place] [address] Trisomy 13 risk Dosage of chromosome-specific cfDNA Ql (cfDNA) [Interp] Negative Normal [facility] Comment on above: Order Comment: Speci men Type: SWAB Ordering Facility: [facility] Address: [address] [place] [address] Performed By: #### Adria VAMP, 92830-8 #### [facility] CLIA [id number] [address] [place] [address] OF [facility] Trisomy 18 risk Dosage of chromosome-specific cfDNA Ql (Plasma cell-free+WBC DNA) [Interp] Negative [facility] Comment on above: Order Comment: Speci men Type: SWAB Ordering Facility: [facility] Address: [address] [place] [address] Performed By: #### Adria VAMP, 12209-1 #### [facility] CLIA [id number] [address] [place] [address] [place] ED MED ADMINISTRATION DETAIL on 03-05-2025 ED MED ADMINISTRATION DETAIL 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 - QUE MCGARRY, : 1990, , Medication Administration Record [address] [address] [id number] 03/04/2025 Patient: QEU MCGARRY Sex: Female : 1990 Age: 34y MEASUREMENTS: Wt: 80.7 kg, Ht/Mack: 65.0 in, BMI: 29.62 ALLERGIES: No known drug allergies Medication Ordered Medication Administration Date/Time 1 of 1 Normal [facility] ED NURSES CLINICAL NOTEon ED NURSES CLINICAL NOTE Nurse Narrative - QUE MCGARRY, : 1990, , Nurse Clinical Narrative [address] [address] [id number] 03/04/2025 22:08:00 Patient: QUE MCGARRY Sex: Female : 1990 Age: 34y Disposition: Discharge to Home Disposition Decision Time: 23:58 03/04/2025 Departure Time: 00:04 03/05/2025 TRIAGE Arrived by private vehicle. Historian: (patient). Triage time: 22:05 03/04/2025. Acuity: LEVEL 2. Chief Complaint: CHEST PAIN and DISCOMFORT. This started just prior to arrival. Reports experiencing sweating episodes. The patient has had nausea and vomiting. Treatment PUBLIC INFORMATION DIRECTOR: None. SEPSIS SCREEN: NEGATIVE. SIRS criteria negative. No possible sources of infection. -- 22:21 03/04/25 EDT Bailee Andrea R.N. 22:10 03/04/25. BP: 120/83 MAP: 95. HR: 89. RR: 16. O2 saturation: 100% Temperature: 97.7 F. Pain level now 8/10. -- 22:20 03/04/25 EDT Bailee Andrea R.N. Measurements: 22:03/04/25 Wt: 80.7 kg, Ht/Mack: 65.0 in, BMI: 29.62 -- 22:21 03/04/25 EDT Bailee Andrea R.N. 1 of 4 Nurse Narrative - QUE MCGARRY, : 1990, , Medications: ondansetron HCl 4 mg tablet -- 22:24 03/04/25 EDT Bailee Andrea R.N. aspirin 81 mg tablet,delayed release -- 22:03/04/25 EDT Bailee Andrea R.N. ondansetron 4 mg disintegrating tablet -- 22:24 03/04/25 EDT Bailee Andrea R.N. Allergies: no known drug allergies -- 22:16 03/04/25 EDT Bailee Andrea R.N. Problems: Anxiety disorder -- 22:16 03/04/25 EDT Bailee Andrea R.N. AFIB -- 22:16 03/04/25 EDT Bailee Andrea R.N. Tachycardia -- 22:17 03/04/25 EDT Bailee Andrea R.N. PVC - Premature Venticular Complex(s) -- 22:17 03/04/25 EDT Bailee Andrea R.N. PAC - Premature Atrial Contraction(s) -- 22:17 03/04/25 EDT Bailee Andrea R.N. Interstitial Cystitis -- 22:17 03/04/25 EDT Bailee Andrea R.N. TIA - Transient Ischemic Attack -- 22:17 03/04/25 EDT Bailee Andrea R.N. Preeclampsia -- 22:18 03/04/25 EDT Bailee Andrea R.N. Seizure -- 22:18 03/04/25 EDT Bailee Andrea R.N. Surgeries: Cholecystectomy -- 22:18 03/04/25 EDT Bailee Andrea R.N. Ablation -- 22:19 03/04/25 EDT Bailee Andrea R.N. History 22:05 03/04/25. PAST MEDICAL HX: Immunizations: Tetanus status: unknown. Other immunizations: up-to-date. status: confirmed : 12 weeks. SOCIAL HX: Regular vaping. No alcohol use or drug use. The patient has not traveled outside the [place] Infectious disease exposure: No infectious disease exposure. ABUSE ASSESSMENT: The patient answered yes to the question(s) Do you feel safe in your home? and no 2 of 4 Nurse Narrative - QUE MCGARRY, : 1990, , to the question(s) Are you afraid to go home?. SELF HARM ASSESSMENT: Self harm assessment was performed. The patient answered no to the question(s) Have you recently felt down, depressed, or hopeless? and Do you have thoughts of harming or killing yourself?. FALL RISK ASSESSMENT: Fall risk assessment completed. No risk factors identified. -- 22:03/04/25 EDT Bailee Andrea R.N. Interventions 22:03/04/25. Advanced care plan discussed with patient. Patient does not have advanced directive. -- 22:03/04/25 EDT Bailee Andrea R.N. PHYSICAL ASSESSMENT 22:03/04/25. GENERAL / NEURO / PSYCH: Alert. Oriented X 4. Appears in no acute distress. HEENT: Mucous membranes are pink. RESPIRATORY: Respirations not labored. Left mid- costochondral tenderness and left mid- chest wall tenderness. The tenderness is diffuse. Breath sounds within normal limits. CVS: Normal sinus rhythm noted. Heart sounds within normal limits. Pulses within normal limits. Capillary refill less than 2 seconds. GI / : The patient has had nausea. Emesis noted. Abdomen soft and nontender. EXTREMITIES: No lower extremity edema. SKIN: Skin is warm and dry. Normal skin turgor. Skin is non-tender. -- 22:03/04/25 EDT Bailee Andrea R.N. NURSING PROGRESS NOTES 22:03/04/25. 12-LEAD EKG: EKG time: (22:03/04/2025). 12-Lead EKG was performed by a manufacturing technician and shown to the ED physician (22:03/04/2025). -- 22:03/04/25 EDT Bailee Andrea R.N. 22:03/04/25. Site #1 started in the left antecubital space with an 18g needle with aseptic technique and good blood return; 1 attempt. Blood drawn: rainbow set tube(s). Saline lock flushed with 10 mL saline. -- 22:03/04/25 EDT Chanelle Harper R.N. 22:32 03/04/25. Portable chest x-ray completed. -- 22:03/04/25 EDT Bailee Andrea R.N. 23:41 03/04/25. Call light placed in reach. Side rails up x 2. Bed placed in lowest position. Brakes of bed on. -- 00:06 03/05/25 EDT Bailee Andrea R.N. 3 of 4 Nurse Narrative - QUE MCGARRY, : 1990, , DISPOSI (more content not included)... Normal [facility] ED ORDER SHEET (CPOE ONLY)on 03-05-2025 ED ORDER SHEET (CPOE ONLY) Order Sheet - QUE MCGARRY, : 1990, , Order Sheet [place] [id number] [facility] [place] [address] [id number] 03/04/2025 Patient: QUE MCGARRY Sex: Female : 1990 Age: 34y MEASUREMENTS: Wt: 80.7 kg, Ht/Mack: 65.0 in, BMI: 29.62 ALLERGIES: No known drug allergies MEDICATION/IV/DRIP/FLUI D ORDERS Acknowledge Order Description Priority Entered d Completed LAB ORDERS Acknowledge Order Description Priority Entered d Collected Completed CBC w Diff Stat Stat 22:19 22:21 22:21 03/04/2025 03/04/2025 03/04/2025 Tamy Avendano R.N. Lemasters, D.O. CMP Stat Stat 22:19 22:21 22:21 03/04/2025 03/04/2025 03/04/2025 Tamy Avendano R.N. Lemasters, D.O. EKG - ED Stat Stat 22:19 22:21 22:21 03/04/2025 03/04/2025 03/04/2025 Tamy Avendano R.N. 1 of 3 Order Sheet - QUE MCGARRY, : 1990, , Ko [place] Troponin-I Protocol Stat 22:19 22:21 22:21 (STAT 1hr) (Sched: 03/04/2025 03/04/2025 03/04/2025 q1h X2); Stat 1 of 2 Tamy Avendano R.N. Lemasters, D.O. Troponin-I Protocol Stat 22:19 22:21 00:05 (STAT 1hr) (Sched: 03/04/2025 03/04/2025 03/05/2025 q1h X2); Stat 2 of 2 Tamy Avendano R.N. Lemasters, D.O. DIAGNOSTIC STUDY ORDERS Acknowledge Order Description Priority Entered d Completed Chest 1V Stat Stat 22:19 03/04/2025 22:21 22:32 Jun 03/04/2025 03/04/2025 [place] Alivia King, R.N. R.N. Order 22:18 Status: . Jun [place], Comments: 03/04/2025: D.OSusana Reason for Study: Chest Pain STAFF ORDERS Acknowledge Order Description Priority Entered d Collected Completed Oxygen in ER 22:19 22:21 22:21 03/04/2025 03/04/2025 03/04/2025 Tamy Avendano R.N. Lemasters, D.O. Press Set Up Person 22:19 22:21 22:21 2 of 3 Order Sheet - QUE MCGARRY, : 1990, , 03/04/2025 03/04/2025 03/04/2025 Tamy Avendano R.N. Lemasters, D.O. Vital signs every 15 22:19 22:21 22:21 minutes 03/04/2025 03/04/2025 03/04/2025 Tamy Avendano R.N. Lemasters, D.O. IV Saline Lock 22:19 22:21 22:21 03/04/2025 03/04/2025 03/04/2025 Tamy Avendano R.N. Lemasters, D.O. [Electronically signed by Jun [place] D.O. (03/05/2025 00:00 EDT)] 3 of 3 Normal [facility] ED PHYSICIAN CLINICAL REPORT on 03-05-2025 ED PHYSICIAN CLINICAL REPORT Narrative - QUE MCGARRY, : 1990, , Physician Clinical Narrative [place] [id number] [facility] [place] [id number] 03/04/2025 22:08:00 Patient: QUE MCGARRY Sex: Female : 1990 Age: 34y Disposition: Discharge Disposition Decision Time: 23:58 03/04/2025 Measurements Wt: 80.7 kg, Ht/Mack: 65.0 in, BMI: 29.62 Initial Vital Sign Measured [place] Time BP MAP HR RR O2Sat ETCO2 Temp n GCS RTS 22:10 120/83 95 89 16 100% 97.7 F 8 03/04/2025 Time Seen: 22:12 03/04/2025. Arrived- By private vehicle. Historian- patient. Independent historian- family. HISTORY OF PRESENT ILLNESS Chief Complaint: CHEST PAIN. This started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 Follows with Cardiology due to hx of arrhythmia, has taken Metoprolol 25 mg daily. No refills lately. She has talked to her strategic account manager about this but has not wanted to [...] EGD LAPAROSCOPY SURG CHOLECYSTECTOMY 09/14/2009 LEEP PROCEDURE (OPTOMETRIST ASSISTANT DEPT)_*[place] 09/09/2015 SVT ABLATION 05/2015 procedure was incomplete and did not work per patient- records requested Family History FAMILY HISTORY Problem Relation Age of Onset Psychiatry Mother Depression Thyroid Mother No Known Problems Father No Known Problems Sister No Known Problems Sister Seizures Sister Multiple Sclerosis Sister (more content not included)... Normal [facility] Genital cultureOrdered By: Omer Castillo on 06-10-2024 Genital Culture Neisseria or beta-hemolytic Streptococcus isolated. [facility] Gram Stainon 06-10-2024 Reason for Exam: Vaginal discharge Gram Stain 3+ White Blood Cells 4+ Gram positive rods No Gram negative diplococci Score = 0 Interpretation: 0-3 Normal, 4-6 Intermediate, 7-10 Positive BV Normal [facility] Comment on above: Performed By: #### L 501.76008, L501.9520, L700.8000, L506.0400 #### [facility] [address] [place], [address] Gram stainOrdered By: Love Castillo on 06-10-2024 Microscopic observation Gram stain Nom (Unsp spec) [facility] No Panel Informationon 06-10 POC Bacterial Vaginitis (Rapid) Negative [facility] Paper Goods Machine Operator Office Visit Reporton 06-10-2024 Paper Goods Machine Operator Office Visit Report [facility] [address], [address] [place] [address] OFFICE VISIT Date of Service: 06/10/24 MR#: [id number] Acct: [id number] Name: QUE MCGARRY Rep #: [id number] : 1990 Provider: MALENA samuels Age/Sex: 34/F Location: [facility] Status: Signed Intake Vital Signs 04/19/24 13:51 06/10/24 13:57 06/10/24 14:04 Height 5 ft 6 in 5 ft 6 in 5 ft 6 in Weight: 183 lb 6 oz 176 lb 6 oz BMI 29.5 28.4 BP 118/80 112/74 Intake Visit Reasons: vaginal odor/cyst Chief Complaint: Vaginal odor/cyst Pre Press Manager Required: No Is patient in pain?: No [...] home: Yes HPI vaginal odor/cyst Details: QUE MCGARRY is a 34 year old who presents [...] She and are planning to go to [place] so she can have a tubal reversal. [...] Male 4 hours [facility] Mc intosh Wang 07/15/16 Missy 37 live - full term 7lbs 8oz Male 12 hours [facility] Reny Jurado 10/12/21 [place] 40 live - full term 8lbs 2oz Male Christina Rueda Will 03/10/24 Von live - full term Male SM Delivery Date: 02/23/08 Last Updated by: Tameka Harp Cord wrapped around neck twice and around body once. Born not breath (more content not included)... Normal [facility] Chlamydia/GC MAYTE aptimaon CHLAMY,NUC ACID Negative Normal Negative [facility] Comment on above: Performed By: #### L 499.0043 #### [facility] [address] [place], [address] GC BY NUC ACID Negative Normal Negative [facility] Comment on above: Result Comment: Perf ormed at: =G - [facility] [address] [id number] Spiral Machine Operator: Rita Vallecillo MD, Phone: [phone] Performed By: #### L 499.0043 #### [facility] [address] [place], [address] Genital Culture Comprehensiv tiara 04-21-2024 VAC Reason for Exam: vaginal odor G. vaginalis (Presumptive) Amount Growth 3+ Normal [facility] Comment on above: Performed By: #### L 499.0043 #### [facility] [address] [place], [place], [address] Free T3on 04-19-2024 Free T3 [Mass/Vol] 2.9 pg/mL Normal 2.18-3.98 [facility] Comment on above: Performed By: #### L 501.49483, L501.9520, L700.8000, L506.0400 #### [facility] [address] [place], [address] Gram Stainon 3 GS Reason for Exam: vaginal odor Gram Stain 4+ Gram variable alma 1+ Epithelial cells 1+ White Blood Cells No Gram negative diplococci 1+ Clue Cells Rare Gram positive cocci Score = 8 Interpretation: 0-3 Normal, 4-6 Intermediate, 7-10 Positive BV Normal [facility] Comment on above: Performed By: #### L 501.56643, L501.9520, L700.8000, L506.0400 #### [facility] [address] [place], [address] Paper Goods Machine Operator Office Visit Reporton 04-19-2024 Paper Goods Machine Operator Office Visit Report [facility] [address], [address] [place] [address] OFFICE VISIT Date of Service: 04/19/24 MR#: [id number] Acct: [id number] Name: QUE MCGARRY Rep #: [id number] : 1990 Provider: TIM daall Age/Sex: 34/F [place] [facility] Status: Signed Intake Vital Signs 10/11/23 09:39 04/17/24 09:08 04/19/24 13:51 Height 5 ft 6 in 5 ft 6 in 5 ft 6 in Weight: 176 lb 4 oz 183 lb 6 oz BMI 28.4 29.5 BP 99/71 118/80 Intake Visit Reasons: Vaginal infection, late menses Pre Press Manager Required: No Is patient in pain?: No [...] full term 7lbs 6oz Male 4 hours [facility] intomacarena Piña 07/15/16 [place] 37 live - full term 7lbs 8oz Male 12 hours [facility] Reny Jurado 10/12/21 [place] 40 live - full term 8lbs 2oz [...] she w (more content not included)... Normal [facility] T4 Free Directon 04-19-2024 T4 FREE DIRECT 1.08 ng/dL Normal 0.76-1.46 [facility] Comment on above: Performed By: #### L 501.71601, L501.9520, L700.8000, L506.0400 #### [facility] [address] [place], [place], [id number] Thyroid Stim Hormone (TSH)on 04-19-2024 TSH 1.430 uIU/mL Normal 0.358-3.740 [facility] Comment on above: Performed By: #### L 501.77730, L501.9520, L700.8000, L506.0400 #### [facility] [address] [place], [place], [address] hCG Titer Quant., Serumon HCG QUANT. < 1 Normal 1-3 [facility] Comment on above: Result Comment: hCG levels with Gestational Age Gestational Age hCG mIU/mL (IU/L) 0.2 - 1 week 5 - 50 1-2 weeks 50 - 500 2-3 weeks 100 - 5000 3-4 weeks 500 - 25620 4-5 weeks 1000 - 14062 5-6 weeks 93033 - 100,000 6-8 weeks 68968 - 200,000 2-3 months 55134 - 100,000 Performed By: #### L 501.09421, L501.9520, L700.8000, L506.0400 #### [facility] [address] [place], [place], [address] CBC + DIFFon 03-22-2024 Baso # 0.02 x10EE3/UL Normal 0.00 - 0.10 [facility] Comment on above: Performed By: #### 2 86678 #### [address] [address] Basophils/100 WBC (Bld) 0.3 % Normal 0.0 - 2.0 [facility] Comment on above: Performed By: #### 2 65953 #### [facility],[address] [place] [address] CBC + DIFF Normal [facility] Comment on above: Result Comment: CBC- COMPLETE BLOOD COUNT Performed By: #### 2 18497 #### [facility],[address] [place] [address] EO # 0.27 x10EE3/UL Normal 0.00 - 0.50 [facility] Comment on above: Performed By: #### 2 35778 #### [facility],[address] [place] [address] Eosinophils/100 WBC (Bld) 3.4 % Normal 0.0 - 7.0 [facility] Comment on above: Performed By: #### 2 56309 #### [facility],[address] [place] [address] Erythrocyte distribution width (RBC) [Ratio] 13.9 % Normal 12.0 - 15.6 [facility] Comment on above: Performed By: #### 2 29390 #### [facility],[address] [place] [address] Hematocrit (Bld) [Volume fraction] 43.5 % Normal 34.0 - 46.0 [facility] Comment on above: Performed By: #### 2 48104 #### [facility],[address] [place] [address] Hemoglobin (Bld) [Mass/Vol] 14.3 g/dL Normal 12.0 - 16.0 [facility] Comment on above: Performed By: #### 2 42129 #### [facility],[address] [place] [address] Lymph # 1.83 x10EE3/UL Normal 0.80 - 2.80 [facility] Comment on above: Performed By: #### 2 22105 #### [facility],[address] [place], [place] [address] Lymphocytes/100 WBC (Bld) 23.0 % Normal 20.0 - 45.0 [facility] Comment on above: Performed By: #### 2 04105 #### [facility],[address] [place] [address] MANUAL DIFF N/A Normal [facility] Comment on above: Performed By: #### 2 84786 #### [facility],[address] [place] [address] MCH (RBC) [Entitic mass] 29 pg Normal 27 - 33 [facility] Comment on above: Performed By: #### 2 05574 #### [facility],[address] [place] [address] MCHC 33 X10 3 Normal 32 - 36 [facility] Comment on above: Performed By: #### 2 30532 #### [facility],[address] [place] [address] MCV (RBC) [Entitic vol] 89 fL Normal 80 - 99 [facility] Comment on above: Performed By: #### 2 35051 #### [facility],[address] [place] [address] [place] # 0.55 x10EE3/UL Normal 0.20 - 1.00 [facility] Comment on above: Performed By: #### 2 35271 #### [facility],[address] [place] [address] MONOS % 6.9 % Normal 0.0 - 10.0 [facility] Comment on above: Performed By: #### 2 28031 #### [facility],[address] [place] [address] Morphology Subhash (Bld) [Interp] N/A Normal [facility] Comment on above: Performed By: #### 2 88774 #### [facility],[address] [place] [address] Neut # 5.29 x10EE3/UL Normal 1.50 - 7.10 [facility] Comment on above: Performed By: #### 2 16679 #### [facility],[address] [place] [address] Neutrophils/100 WBC (Bld) 66.5 % Normal 46.0 - 76.0 [facility] Comment on above: Performed By: #### 2 08771 #### [facility],[address] [place] [address] PLATELET 281 x10EE3/UL Normal 150 - 450 [facility] Comment on above: Performed By: #### 2 47751 #### [facility],[address] [place] [address] Platelet mean volume (Bld) [Entitic vol] 7.8 fL Normal 6.6 - 10.5 [facility] Comment on above: Result Comment: AUTO MATED DIFFERENTIAL Performed By: #### 2 07203 #### [facility],[address] [place] [address] 29251 RBC 4.91 x 10EE6/UL Normal 4.10 - 5.30 [facility] Comment on above: Performed By: #### 2 69270 #### [facility],[address] [place] [address]68 WBC 8.0 x 10EE3/UL Normal 4.5 - 10.8 [facility] Comment on above: Performed By: #### 2 71476 #### [facility],[address] [place] [address] CMP with eGFRon 03-22-2024 AGE 33 years Normal [facility] Comment on above: Performed By: #### 2 48782 #### [facility],[address] [place] [address] 21596 Albumin [Mass/Vol] 3.7 g/dL Normal 3.4 - 5.0 [facility] Comment on above: Performed By: #### 2 64712 #### [facility],[address] [place] [address]43 Albumin/Globulin [Mass ratio] 1.2 {ratio} Normal 0.9 - 1.6 [facility] Comment on above: Performed By: #### 2 43402 #### [facility],[address] [place] [address] ALK PHOS 104 U/L Normal 46 - 116 [facility] Comment on above: Performed By: #### 2 50857 #### [facility],[address] [place] [address]6629 ALT [Catalytic activity/Vol] 25 U/L Normal 16 - 63 [facility] Comment on above: Performed By: #### 2 67577 #### [facility],[address] [place] [address] 77186 Anion gap [Moles/Vol] 14 mmol/L Normal 10 - 20 [facility] Comment on above: Performed By: #### 2 80635 #### [facility],[address] [place] [address] 24242 AST [Catalytic activity/Vol] 18 U/L Normal 13 - 39 [facility] Comment on above: Performed By: #### 2 42541 #### [facility],[address] [place] [address] B/C RATIO 17 ratio Normal 0 - 30 [facility] Comment on above: Performed By: #### 2 [id number] #### [facility],[address] [place] [address] 47681 Bilirubin [Mass/Vol] 0.9 mg/dL Normal 0.2 - 1.0 [facility] Comment on above: Performed By: #### 2 94207 #### [facility],[address] [place] [address] 60939 Calcium [Mass/Vol] 8.6 mg/dL Normal 8.5 - 10.1 [facility] Comment on above: Performed By: #### 2 05012 #### [facility],[address] [place] [address] 27864 Chloride [Moles/Vol] 105 mmol/L Normal 98 - 107 [facility] Comment on above: Performed By: #### 2 36220 #### [facility],[address] [place] [address] 61525 CMP with eGFR Normal [facility] Comment on above: Result Comment: COMP REHENSIVE METABOLIC PANEL Performed By: #### 2 33199 #### [facility],[address] [place] [address] 84527 CO2 [Moles/Vol] 24.3 mmol/L Normal 21.0 - 32.0 [facility] Comment on above: Performed By: #### 2 88051 #### [facility],[address] [place] [address] 19150 Creatinine [Mass/Vol] 0.87 mg/dL Normal 0.55 - 1.02 [facility] Comment on above: Performed By: #### 2 68530 #### [facility],[address] [place] [address] 96817 GFR/1.73 sq M.predicted among non-blacks MDRD (S/P/Bld) [Vol rate/Area] mL/min/{1.73_m2} Normal 60 - 999 [facility] Comment on above: Performed By: #### 2 60752 #### [facility],[address] [place] [address] 29899 Result Comment: ACCO RDING TO THE NATIONAL KIDNEY DISEASE EDUCATION PROGRAM(NKDE), A NORMAL eGFR IS A VALUE GREATER THAN OR EQUAL TO 60 ML/MIN/1.73 SQ METERS. CHRONIC KIDNEY DISEASE: <60mL/MIN/1.73 SQ METERS KIDNEY FAILURE: <15mL/MIN/1.73 SQ METERS THIS TEST SHOULD ONLY BE USED FOR PATIENTS 18 YEARS OF AGE AND OLDER. Globulin (S) [Mass/Vol] 3.1 g/dL Normal 1.5 - 3.8 [facility] Comment on above: Performed By: #### 2 94086 #### [facility],[address] [place] [address] 38412 Glucose [Mass/Vol] 87 mg/dL Normal 74 - 106 [facility] Comment on above: Performed By: #### 2 77248 #### [facility],[address] [place] [address] 46432 Potassium [Moles/Vol] 4.0 mmol/L Normal 3.5 - 5.1 [facility] Comment on above: Performed By: #### 2 56679 #### [facility],[address] [place] [address] 98216 Protein [Mass/Vol] 6.8 g/dL Normal 6.4 - 8.2 [facility] Comment on above: Performed By: #### 2 59295 #### [facility],[address] [place] [address] 49981 Sodium [Moles/Vol] 139 mmol/L Normal 136 - 145 [facility] Comment on above: Performed By: #### 2 01593 #### [facility],[address] [place] [address] 48134 Urea nitrogen [Mass/Vol] 15 mg/dL Normal 7 - 18 [facility] Comment on above: Performed By: #### 2 98558 #### [facility],[address] [place] [address] 67480 D-DIMER, QUANTITATIVEon 03-05 D-DIMER QUANT <200 Normal 0 - 230 [facility] Comment on above: Performed By: #### 2 81735 #### [facility],[address] [place] [address] 13163 D-DIMER, QUANTITATIVE Normal [facility] Comment on above: Result Comment: MARCI T D-DIMER Performed By: #### 2 70215 #### [facility],[address] [place] [address] ED FACILITY CODING SUMMARYon 03-22-2024 ED FACILITY CODING SUMMARY Facility Coding Facility Coding Summary [address] [address] [id number] 03/22/2024 Patient: QUE MCGARRY Sex: Female : 1990 Age: 33y Providers: Antonette Shearer D.O. DIAGNOSTIC WORKUP Chief Complaint CHEST PAIN. -- Antonette Shearer D.O. Principal Diagnosis Chest pain characterized as discomfort and pressure. -- Antonette Shearer D.O. ICD-10 Codes R07.89: Other chest pain PROCEDURES Procedures from Providers: EKG (Insufficient documentation to return CPT code.) -- Antonette Shearer D.O. Procedures from Nurses/Facility: EKG (CPT: 75075) SUPPLIES [facility] 40478-90 1 of 2 Facility Coding This is a partial abstract of information documented in the full record. Retail Pharmacy Technician must use independent judgment in selecting codes. CPT copyright 2022 [employer]. All Rights Reserved. 2 of 2 [facility] ED MED ADMINISTRATION DETAIL on 03-22-2024 ED MED ADMINISTRATION DETAIL 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 Medication Administration Record [address] [address] [id number] 03/22/2024 Patient: QUE MCGARRY Sex: Female : 1990 Age: 33y MEASUREMENTS: Wt: 81.6 kg ALLERGIES: No known drug allergies Medication Ordered Medication Administration Date/Time 1 of 1 Normal [facility] ED NURSES CLINICAL NOTEon ED NURSES CLINICAL NOTE Nurse Narrative Nurse Clinical [address] [address] [id number] 03/22/2024 Patient: QUE MCGARRY Sex: Female : 1990 Age: 33y Disposition: [...] possible sources of infection. -- 11:54 03/22/24 VETO Reyes R.N. 11:53 03/22/24. BP: 128/74 MAP: 92. HR: 78. RR: 16. O2 saturation: 99% Temperature: 98 F. Pain level now 10/12. -- 11:53 03/22/24 VETO Reyes R.N. Measurements: 11:54 03/22/24 Wt: 81.6 [...] 03/22/2024). 12-Lead EKG was performed by a manufacturing technician and shown to the ED physician. [...] R.N. 03/22/24 14:19:22 EDT) Generated by [facility] 3 of 3 Normal [facility] ED ORDER SHEET (CPOE ONLY)on 03-22-2024 ED ORDER SHEET (CPOE ONLY) Order Sheet Order Sheet [id number] [facility] [place] [address] [id number] 03/22/2024 Patient: QUE MCGARRY Sex: Female : 1990 Age: 33y MEASUREMENTS: [...] 03/22/2024 X2); Stat 2 of 2 Antonette Shearer, 1 of 3 Order Sheet D.OSusana D-Dimer Stat Stat 12:05 03/22/2024 12:10 03/22/2024 Romero Pena D.O. R.N. EKG - ED Stat Stat 12:05 03/22/2024 12:10 03/22/2024 12:16 03/22/2024 Romero Pena Cortnee Amos D.O. RScottie Urinalysis Stat Stat 12:24 03/22/2024 Antonette Shearer D.O. DIAGNOSTIC STUDY ORDERS Order Description Priority Entered Acknowledged Completed STAFF ORDERS Order Description Priority Entered Acknowledged Collected Completed IV Saline Lock 12:05 03/22/2024 12:10 03/22/2024 Romero Pena D.O. R.N. Obtain Old EKG 12:05 03/22/2024 12:10 03/22/2024 Romero Pena D.O. R.N. Press Set Up Person 12:05 03/22/2024 12:10 03/22/2024 Romero Pena D.O. R.N. 2 of 3 Order Sheet Vital signs every 15 12:05 03/22/2024 12:10 03/22/2024 minutes Romero Pena D.O. R.N. [Electronically signed by Antonette Shearer D.O. (03/22/2024 16:18 EDT)] 3 of 3 Normal [facility] ED PHYS CODING ABST SUMMARYo n 03-22-2024 ED PHYS CODING ABST SUMMARY Coding Summary Coding Summary [place] [address] [address] [place] [address] [id number] 03/22/2024 Patient: QUE MCGARRY Sex: Female : 1990 Age: 33y ICD-10 Codes R07.89: Other chest pain CPT Codes EKG (Insufficient documentation to return CPT code.) This is a partial abstract of information documented in the full record. Retail Pharmacy Technician must use independent judgment in selecting codes. CPT copyright 2022 [employer]. All Rights Reserved. 1 of 1 Normal [facility] ED PHYSICIAN CLINICAL REPORT on 03-22-2024 ED PHYSICIAN CLINICAL REPORT Narrative Physician Clinical Narrative [address] [address] [id number] 03/22/2024 Patient: QUE MCGARRY Sex: Female : 1990 Age: 33y Disposition: [...] 1.50 - 7.10 Final EDT 03/22/2024 12:33 [place] # 0.55 x10/UL 0.20 - 1.00 Final [...] 03/22/2024 CALCIUM (more content not included)... Normal [facility] ED SUPER BILLon 03-22-2024 ED SUPER BILL [address] [address] [id number] 03/22/2024 Patient: QUE MCGARRY Sex: Female : 1990 Age: 33y Item Professional Category Description Facility Code Code Quantity Fee Total Nurse/E/M EMERGENCY 118508 1 $0.00 $0.00 DEPARTMENT VISIT MODERATE SEVERITY (62932-97) Grand Total $0.00 Providers Antonette Shearer D.O. Chief Complaint CHEST PAIN. Principal Diagnosis Chest pain characterized as discomfort and pressure. ICD-10 Codes 1 of 2 [facility] R07.89: Other chest pain 2 of 2 Normal [facility] ED VISIT SUMMARYon ED VISIT SUMMARY Visit Overview Visit Overview [address] [address] [id number] 03/22/2024 Patient: QUE MCGARRY Sex: Female : 1990 Age: 33y 03/22/2024 [...] DISCOMFORT AND PRESSURE 3 of 3 Normal [facility] LABORATORYOrdered By: Christopher Roberts on 03-22-2024 [...] ng/L Male: 0-76 ng/L Testing performed on CAILabs using a homogeneous sandwich chemiluminescent immunoassay based on [employer] technology. Urea nitrogen [Mass/Vol] 12 mg/dL Normal 7 - 18 mg/dL AO ADM SS Urea nitrogen/Creatinine [Mass ratio] 15 ratio Normal 7 - 27 ratio AO ADM SS WBC (Bld) [#/Vol] 7.4 103/mcL Normal 4.5 - 10.8 10^3/mcL AO Workflow SS LABORATORYOrdered By: Jaya Gagnon on 03-22-2024 Platelets LM Ql (Bld) Normal (03/22/24 2:55 PM) Normal AO Hematology S TROPONINon 03-22-2024 HS TROPONIN 4.7 pg/mL Normal 0.0 - 51.4 [facility] Comment on above: Performed By: #### 2 70309 #### [facility],[address] [place] [address] URINALYSISon 03-22-2024 Bilirubin Ql (U) Negative Normal NORMAL: NEGATIVE [facility] Comment on above: Performed By: #### 2 54879 #### [facility],[address] [place] [address] Clarity (U) clear Normal NORMAL: CLEAR [facility] Comment on above: Performed By: #### 2 94353 #### [facility],[address] [place], [place] [address] Color (U) YELLOW Normal NORMAL: YELLOW [facility] Comment on above: Performed By: #### 2 66491 #### [facility],[address] [place] [address] 46116 Glucose Ql (U) NORM Normal NORMAL: NORMAL [facility] Comment on above: Performed By: #### 2 13777 #### [facility],[address],[place] [address] Hemoglobin Ql (U) Negative Normal NORMAL: NEGATIVE [facility] Comment on above: Performed By: #### 2 92476 #### [facility],[address] [place] [address] 22335 Ketone Negative Normal NORMAL: NEGATIVE [facility] Comment on above: Performed By: #### 2 94202 #### [facility],[address] [place] [address] 64993 Leukocytes Negative Normal NORMAL: NEGATIVE [facility] Comment on above: Performed By: #### 2 89012 #### [facility],[address] [place] [address] 57456 Nitrite Ql (U) Negative Normal NORMAL: NEGATIVE [facility] Comment on above: Performed By: #### 2 39598 #### [facility],[address] [place] [address] pH (U) 7 [pH] Normal NORMAL: 5.0-8.0 [facility] Comment on above: Performed By: #### 2 04671 #### [facility],[address] [place] [address] 32410 Protein Ql (U) Negative Normal NORMAL: NEGATIVE [facility] Comment on above: Performed By: #### 2 06049 #### [facility],[address] [place] [address] Sp [place] 1.015 Normal NORMAL: 1.010-1.030 [facility] Comment on above: Performed By: #### 2 63497 #### [facility],[address] [place], [place] [address] Specimen Type UNSPECIFIED Normal [facility] Comment on above: Performed By: #### 2 94726 #### [facility],[address] [place], [place] [address] Urinalysis dipstick W Reflex Microscopic panel (U) NOT INDICATED Normal [facility] Comment on above: Performed By: #### 2 70454 #### [facility],[address] [place] [address] Urobilinog NORM Normal NORMAL: NORMAL [facility] Comment on above: Performed By: #### 2 99276 #### [facility],[address] [place] [address] CBC W Auto Differential pane l (Bld)on 10-17-2023 Basophils (Bld) [#/Vol] 0.05 10*3/uL [facility] Basophils/100 WBC (Bld) 0.5 % [facility] Differential cell count method Nom (Bld) Auto [facility] Eosinophils (Bld) [#/Vol] 0.27 10*3/uL [facility] Eosinophils/100 WBC (Bld) 2.8 % [facility] Erythrocyte distribution width (RBC) [Ratio] 14.9 % 11.5 - 15.0 % [facility] Hematocrit (Bld) [Volume fraction] 42.5 % 36.0 - 46.0 % [facility] Hemoglobin (Bld) [Mass/Vol] 13.6 g/dL 11.5 - 15.5 g/dL [facility] Immature granulocytes (Bld) [#/Vol] 0.03 10*3/uL [facility] Immature granulocytes/100 WBC (Bld) 0.3 % [facility] Lymphocytes (Bld) [#/Vol] 2.29 10*3/uL [facility] Lymphocytes/100 WBC (Bld) 24.1 % [facility] MCH (RBC) [Entitic mass] 27.8 pg 26.0 - 34.0 pg [facility] MCHC (RBC) [Mass/Vol] 32.0 g/dL 30.5 - 36.0 g/dL [facility] MCV (RBC) [Entitic vol] 86.9 fL 80.0 - 100.0 fL [facility] Monocytes (Bld) [#/Vol] 0.62 10*3/uL [facility] Monocytes/100 WBC (Bld) 6.5 % [facility] Neutrophils (Bld) [#/Vol] 6.26 10*3/uL [facility] Neutrophils/100 WBC (Bld) 65.8 % [facility] Nucleated RBC (Bld) [#/Vol] [facility] Nucleated RBC/100 WBC (Bld) [Ratio] 0.0 % /100 WBC [facility] Platelet mean volume (Bld) [Entitic vol] 10.2 fL 9.0 - 12.7 fL [facility] Platelets (Bld) [#/Vol] 337 10*3/uL [facility] RBC (Bld) [#/Vol] 4.89 10*6/uL 3.90 - 5.2 0 m/uL [facility] WBC (Bld) [#/Vol] 9.52 10*3/uL [facility] HbA1c (Bld)on 10-17-2023 Average glucose Estimated from glycated hemoglobin (Bld) [Mass/Vol] 105 mg/dL [facility] Comment on above: eAG: (Estimated aver age glucose) is a calculated value from HgbA1c and is ambulatory service representative of the average blood glucose level in the last 2-3 month period. HbA1c (Bld) [Mass fraction] 5.3 % 4.3 - 5.6 % [facility] Comment on above: [employer] sociation guidelines indicate that patients with HgbA1c in the range 5.7-6.4% are at increased risk for development of diabetes, and intervention by lifestyle modification may be beneficial. HgbA1c greater or equal to 6.5% is considered diagnostic of diabetes. [facility] Basophil percentageOrdered B y: Melissa Saxena on 10-03-2023 Hemoglobin (Bld) [Mass/Vol] 11.9 g/dL 12.0-15.0 [facility] WBC (Bld) [#/Vol] 5.7 10*3/uL 4.4-11.0 [facility] Determination of erythrocyte mean corpuscular volume (MCV)Ordered By: Melissa Saxena on 10-03-2023 MCV (RBC) [Entitic vol] 85.5 fL 81-99 [facility] Erythrocyte distribution wid th ratioOrdered By: Melissa Saxena on 10-03-2023 Erythrocyte distribution width (RBC) [Ratio] 14.6 % 11.6-14.6 [facility] Erythrocyte distribution wid th standard deviationOrdered By: Melissa Saxena on 10-03-2023 Erythrocyte distribution width (RBC) [Entitic vol] 45.8 fL 35.1-43.9 [facility] Hematocrit Auto (Bld) [Volum e fraction]Ordered By: Melissa Saxena on 10-03-2023 Hematocrit (Bld) [Volume fraction] 36.6 % 37-47 [facility] Laboratory - Hematology and Cell countsOrdered By: Melissa Saxena on 10-03-2023 MCH (RBC) [Entitic mass] 27.8 pg 27.0-32.0 [facility] MCHC (RBC) [Mass/Vol] 32.5 g/dL 32-36 [facility] Platelet mean volume (Bld) [Entitic vol] 9.9 fL 6.2-12.0 [facility] Platelets (Bld) [#/Vol] 282 10*3/uL 150-450 [facility] RBC Auto (Bld) [#/Vol]Ordere d By: Melissa Saxena on 10-03-2023 RBC (Bld) [#/Vol] 4.28 10*6/uL 4.2-5.4 [facility] INFLUENZA A&B MOLECULAR (POC )on 08-10-2023 Flu A (POCT) Negative Negative [facility] Flu B (POCT) Negative Negative [facility] Procedural Control Valid [facility] UA DIP, URINE (POC)on 2023 BILIRUBIN UA (POCT) Negative Negative [facility] CLARITY UA (POCT) Clear [facility] COLOR UA (POCT) Yellow [facility] GLUCOSE UA (POCT) Negative Negative mg/dL [facility] Hemoglobin Ql (U) Small Abnormal [facility] KETONE UA (POCT) Negative Negative mg/dL [facility] LEUKOCYTES UA (POCT) Negative Negative [facility] NITRITE UA (POCT) Negative Negative [facility] PH UA (POCT) 6.0 4.5 - 8.0 [facility] Protein Ql (U) Negative Negative mg/dL [facility] SPECIFIC GRAVITY UA (POCT) 1.015 1.005 - 1.030 [facility] UROBILINOGEN UA (POCT) 0.2 E.U./dL Kelly l E.U./dL [facility] Serum or plasma choriogonado tropin detectionOrdered By: Love Castillo on 07-13-2023 HCG ( test) Ql < 1 mIU/mL <4 [facility] Comment on above: hCG levels with Gest ational AgeGestational Age hCG mIU/mL (IU/L)0.2 - 1 week 5 - 501-2 weeks 50 - 5002-3 weeks 100 - 28808-5 weeks 500 - 565774-2 weeks 1000 - 048441-1 weeks 11117 - 100,0006-8 weeks 28203 - 200,0002-3 months 37349 - 100,000 Absolute lymphocyte countOrd ered By: Melissa Saxena on 06-28-2023 Lymphocytes Auto (Unsp spec) [#/Vol] 1.74 10*3/uL 0.83-4.51 [facility] Automated lymphocyte count a s percentage of total leukocytesOrdered By: Melissa Saxena on 06-28-2023 Lymphocytes/100 WBC Auto (Unsp spec) 29.0 % 19-41 [facility] Basophil percentageOrdered B y: Melissa Saxena on 06-28-2023 Basophils/100 WBC (Bld) 0.8 % 0-1 [facility] Eosinophils/100 WBC (Bld) 5.7 % 0-5 [facility] Hemoglobin (Bld) [Mass/Vol] 11.9 g/dL 12.0-15.0 [facility] Monocytes/100 WBC (Bld) 6.7 % 0-10 [facility] Neutrophils (Bld) [#/Vol] 3.5 10*3/uL 2.0-7.7 [facility] Neutrophils/100 WBC (Bld) 57.5 % 47-70 [facility] WBC (Bld) [#/Vol] 6.0 10*3/uL 4.4-11.0 [facility] Chlamydia trachomatis rRNA d etection by probe and target amplification methodOrdered By: Love Castillo on 06-28-2023 C. trachomatis rRNA MAYTE+probe Ql (Unsp spec) Negative Negative [facility] Determination of erythrocyte mean corpuscular volume (MCV)Ordered By: Melissa Saxena on 06-28-2023 MCV (RBC) [Entitic vol] 88.7 fL 81-99 [facility] Erythrocyte distribution wid th ratioOrdered By: Melissa Saxena on 06-28-2023 Erythrocyte distribution width (RBC) [Ratio] 13.7 % 11.6-14.6 [facility] Erythrocyte distribution wid th standard deviationOrdered By: Melissa Saxena on 06-28-2023 Erythrocyte distribution width (RBC) [Entitic vol] 44.3 fL 35.1-43.9 [facility] Gram stain for investigation of transfusion reactionOrdered By: Love Castillo on 06-28-2023 Microscopic observation Gram stain Nom (Unsp spec) [facility] Microscopic observation Gram stain Nom (Unsp spec) [facility] Hematocrit Auto (Bld) [Volum e fraction]Ordered By: Melissa Saxena on 06-28-2023 Hematocrit (Bld) [Volume fraction] 37.6 % 37-47 [facility] Immature granulocytes/100 WB C Auto (Bld)Ordered By: Melissa Saxena on 06-28-2023 Immature granulocytes/100 WBC (Bld) 0.300 % 0.0-0.9 [facility] Comment on above: IG% - Immature Granu locytes (promyelocytes, myelocytes and metamyelocytes) > 1% indicates that a LEFT SHIFT is Present. Laboratory - Hematology and Cell countsOrdered By: Melissa Saxena on 06-28-2023 MCH (RBC) [Entitic mass] 28.1 pg 27.0-32.0 [facility] MCHC (RBC) [Mass/Vol] 31.6 g/dL 32-36 [facility] Nucleated RBC/100 WBC (Bld) [Ratio] 0 % 0-5 [facility] Platelets (Bld) [#/Vol] 388 10*3/uL 150-450 [facility] Laboratory - Microbiology an d Antimicrobial susceptibilityOrdered By: Love Castillo on 06-28-2023 N. gonorrhoeae DNA MAYTE+probe Ql (Unsp spec) Negative Negative [facility] Comment on above: Performed at: =[address] [id number] Director: Rita Vallecillo MD, Phone: [phone] No Panel InformationOrdered By: Love Castillo on 06-28-2023 Genital Culture Neisseria or beta-hemolytic Streptococcus isolated. [facility] Genital Culture Neisseria or beta-hemolytic Streptococcus isolated. [facility] No Panel Informationon 06-28 POC Bacterial Vaginitis (Rapid) Negative [facility] POC Trichomonas (Rapid) Negative [facility] Platelet mean volume Bulmaro-Ec ker (Bld) [Entitic vol]Ordered By: Melissa Saxena on 06-28-2023 Platelet mean volume (Bld) [Entitic vol] 9.7 fL 6.2-12.0 [facility] RBC Auto (Bld) [#/Vol]Ordere d By: Melissa Saxena on 06-28-2023 RBC (Bld) [#/Vol] 4.24 10*6/uL 4.2-5.4 [facility] Serum or plasma thyroid stim ulating hormone (TSH) measurement (units/volume)Ordered By: Melissa Saxena on 06-28-2023 TSH Qn 1.21 uIU/mL 0.358-3.74 [facility] Urinalysis complete W Reflex Culture panel (U)on 06-07-2023 Appearance (U) Hazy Abnormal Clear [facility] Bilirubin (U) [Mass/Vol] Negative NEGATIVE [facility] Color (U) Yellow Straw, Yellow [facility] Crystals.amorphous Computer assisted (U) [#/Area] 1+ NONE, 1+, 2+ /HPF [facility] Glucose Auto test strip (U) [Mass/Vol] Negative NEGATIVE mg/dL [facility] Interpretation and review of laboratory results Abnormal [facility] Ketones (U) [Mass/Vol] Negative NEGAT JESUS mg/dL [facility] Leukocyte clumps Auto (Urine sed) [#/Area] FEW Reference range not established. /HPF [facility] Leukocyte esterase Auto test strip Ql (U) Negative NEGATIVE [facility] Mucus Auto (Urine sed) [#/Area] 1+ Reference range not established. /LPF [facility] Nitrite Auto test strip Ql (U) Negative NEGATIVE [facility] [facility] pH (U) 7.0 [pH] 5.0, 5.5, 6.0, 6.5, 7.0, 7.5, 8.0 [facility] Protein (U) [Mass/Vol] 100 (2+) Abnormal NEGAT JESUS mg/dL [facility] RBC (U) [#/Vol] LARGE (3+) Abnormal NEGATIVE [facility] RBC Auto (Urine sed) [#/Area] >20 Abnormal NONE, 1-2, 3-5 /HPF [facility] Specific gravity (U) [Rel density] 1.020 1.005 - 1.035 [facility] Urobilinogen (U) [Mass/Vol] mg/dL NINF - 2.0 mg/dL [facility] WBC Auto (Urine sed) [#/Area] 21-50 Abnormal 1-5, NONE /HPF [facility] ANTIBODY IDENTIFICATIONon Blood group antibody investigation (P/RBC) [Interp] Inconclusive [facility] Comment on above: Performed By: #### 5 902-2 #### RAUDEL MENJIVAR ([id number]) [facility] ([facility]) [address] [place] [address] CASE # [facility] Comment on above: Performed By: #### 5 902-2 #### RAUDEL MENJIVAR ([id number]) [facility] ([facility]) [address] [place] [address] Bacteria identifiedon 2023 Bacteria identified Cx Nom (U) Test: Urine Culture Specimen Source: Clean Catch/Voided Specimen Type: Urine Specimen Date: 06/06/2023 11:41 PM Result Date: 06/08/2023 8:53 AM Result Status: Final result Abnormal: No Resulting Lab: [facility] [id number] [place] [address] CULTURE No growth [facility] Comment on above: Performed By: #### 5 902-2 #### RAUDEL MENJIVAR ([id number]) [facility] ([facility]) [address] [place] [address] Basic metabolic 2000 panelon 06-06-2023 Anion gap [Moles/Vol] 11 mmol/L 10 - 2 0 mmol/L [facility] Calcium [Mass/Vol] 9.0 mg/dL 8.6 - 10. 3 mg/dL [facility] Chloride [Moles/Vol] 107 mmol/L 98 - 10 7 mmol/L [facility] CO2 [Moles/Vol] 25 mmol/L 21 - 32 mmol/L [facility] Creatinine [Mass/Vol] 0.79 mg/dL 0.50 - 1.05 mg/dL [facility] GFR/1.73 sq M.predicted MDRD (S/P/Bld) [Vol rate/Area] - PINF [facility] Comment on above: Calculations of yolanda mated GFR are performed using the 2020 CKD-EPI Study Refit equation without the race variable for the IDMS-Traceable creatinine methods. https://jasn.asnjournals.org/content//ASN.97136 39884 Glucose [Mass/Vol] 96 mg/dL 74 - 99 mg/dL [facility] Interpretation and review of laboratory results Normal [facility] Potassium [Moles/Vol] 3.9 mmol/L 3.5 - 5.3 mmol/L [facility] Sodium [Moles/Vol] 139 mmol/L 136 - 145 mmol/L [facility] Urea nitrogen [Mass/Vol] 12 mg/dL 6 - 23 mg/dL [facility] Anion gap [Moles/Vol] 11 mmol/L Normal 10-20 [facility] Comment on above: Performed By: #### 2 4321-2 ####RAUDEL MENJIVAR ([id number])[facility] ([facility])[address] [place] [address] 57565 Calcium [Mass/Vol] 9.0 mg/dL Normal 8.6-10.3 [facility] Comment on above: Performed By: #### 2 4321-2 ####RAUDEL MENJIVAR ([id number])[facility] ([facility])[address] [place] [address] 35184 Chloride [Moles/Vol] 107 mmol/L Normal 98-107 [facility] Comment on above: Performed By: #### 2 4321-2 ####RAUDEL MENJIVAR ([id number])[facility] ([facility])[address] [place] [address] 40089 CO2 [Moles/Vol] 25 mmol/L Normal 21-32 [facility] Comment on above: Performed By: #### 2 4321-2 ####RAUDEL MENJIVAR ([id number])[facility] ([facility])[address] [place] [address] 80994 Creatinine [Mass/Vol] 0.79 mg/dL Normal 0.50-1.05 [facility] Comment on above: Performed By: #### 2 4321-2 ####RAUDEL MENJIVAR ([id number])[facility] ([facility])[address] [place] [address] 02628 GFR/1.73 sq M.predicted MDRD (S/P/Bld) [Vol rate/Area] mL/min/{1.73_m2} Normal >60 [facility] Comment on above: Result Comment: Calc ulations of estimated GFR are performed using the 2020 CKD-EPI Study Refit equation without the race variable for the IDMS-Traceable creatinine methods. https://jasn.asnjournals.org/content/early//ASN.43161 89187 Performed By: #### 2 4321-2 ####RAUDEL MENJIVAR ([id number])[facility] ([facility])[address] [place] [address] 71062 Glucose [Mass/Vol] 96 mg/dL Normal 74-99 [facility] Comment on above: Performed By: #### 2 4321-2 ####RAUDEL MENJIVAR ([id number])[facility] ([facility])[address] [place] [address] 19569 Potassium [Moles/Vol] 3.9 mmol/L Normal 3.5-5.3 [facility] Comment on above: Performed By: #### 2 4321-2 ####RAUDEL MENJIVAR ([id number])[facility] ([facility])[address] [place] [address] 41034 Sodium [Moles/Vol] 139 mmol/L Normal 136-145 [facility] Comment on above: Performed By: #### 2 4321-2 ####RAUDEL MENJIVAR ([id number])[facility] ([facility])[address] [place] [address] Urea nitrogen [Mass/Vol] 12 mg/dL Normal 6- [facility] Comment on above: Performed By: #### 2 4321-2 ####RAUDEL MENJIVAR ([id number])[facility] ([facility])[address] [place] [address] Blood type and Indirect anti body screen panel (Bld)on 06-06-2023 ABO group Nom (Bld) A Normal [facility] Comment on above: Order Comment: Revie w your Rh Negative female patient's potential need for Rh Immune Globulin (RhIg)administration. Performed By: #### 3 4532-2 ####RAUDEL MENJIVAR ([id number])[facility] ([facility])[address] [place] [address] Blood group antibody screen Ql Positive [facility] Comment on above: Order Comment: Revie w your Rh Negative female patient's potential need for Rh Immune Globulin (RhIg)administration. Performed By: #### 3 4532-2 ####RAUDEL MENJIVAR ([id number])[facility] ([facility])[address] [place] [address] US D Ag Ql (Bld) Negative [facility] Comment on above: Order Comment: Revie w your Rh Negative female patient's potential need for Rh Immune Globulin (RhIg)administration. Performed By: #### 3 4532-2 ####RAUDEL MENJIVAR ([id number])[facility] [place] [address] US CBC W Auto Differential pane l (Bld)on 06-06-2023 Basophils (Bld) [#/Vol] 0.03 10*3/uL [facility] Basophils/100 WBC (Bld) 0.4 % 0.0 - 2.0 % [facility] Eosinophils (Bld) [#/Vol] 0.39 10*3/uL [facility] Eosinophils/100 WBC (Bld) 4.8 % 0.0 - 6.0 % [facility] Erythrocyte distribution width (RBC) [Ratio] 14.9 % High 11.5 - 14.5 % [facility] Hematocrit (Bld) [Volume fraction] 37.0 % 36.0 - 46.0 % [facility] Hemoglobin (Bld) [Mass/Vol] 11.8 g/dL Low 12.0 - 16.0 g/dL [facility] Immature granulocytes (Bld) [#/Vol] 0.02 10*3/uL [facility] Immature granulocytes/100 WBC (Bld) 0.2 % 0.0 - 0.9 % [facility] Comment on above: Immature Granulocyte Count (IG) includes promyelocytes, myelocytes and metamyelocytes but does not include bands. Percent differential counts (%) should be interpreted in the context of the absolute cell counts (cells/UL). Interpretation and review of laboratory results Abnormal [facility] Lymphocytes (Bld) [#/Vol] 2.86 10*3/uL [facility] Lymphocytes/100 WBC (Bld) 35.0 % 13.0 - 44.0 % [facility] MCH (RBC) [Entitic mass] 28.6 pg 26.0 - 34.0 pg [facility] MCHC (RBC) [Mass/Vol] 31.9 g/dL Low 32.0 - 36.0 g/dL [facility] MCV (RBC) [Entitic vol] 90 fL 80 - 100 fL [facility] Monocytes (Bld) [#/Vol] 0.61 10*3/uL [facility] Monocytes/100 WBC (Bld) 7.5 % 2.0 - 10.0 % [facility] Neutrophils (Bld) [#/Vol] 4.26 10*3/uL [facility] Comment on above: Percent differential counts (%) should be interpreted in the context of the absolute cell counts (cells/uL). Neutrophils/100 WBC (Bld) 52.1 % 40.0 - 80.0 % [facility] Nucleated RBC/100 WBC (Bld) [Ratio] 0.0 % [facility] Platelets (Bld) [#/Vol] 363 10*3/uL [facility] RBC (Bld) [#/Vol] 4.12 10*6/uL [facility] WBC (Bld) [#/Vol] 8.2 10*3/uL [facility] Basophils (Bld) [#/Vol] 0.03 x10*3/uL Normal 0.00-0.10 [facility] Comment on above: Performed By: #### 5 7021-8 ####RAUDEL MENJIVAR ([id number])[facility] ([facility])[address] [place] [address] 50971 Basophils/100 WBC (Bld) 0.4 % Normal 0.0-2.0 [facility] Comment on above: Performed By: #### 5 7021-8 ####RAUDEL MENJIVAR ([id number])[facility] ([facility])[address] [place] [address] 20412 Eosinophils (Bld) [#/Vol] 0.39 x10*3/uL Normal 0.00-0.70 [facility] Comment on above: Performed By: #### 7021-8 ####RAUDEL MENJIVAR ([id number])[facility] ([facility])[address] [place] [address] 50880 Eosinophils/100 WBC (Bld) 4.8 % Normal 0.0-6.0 [facility] Comment on above: Performed By: #### 5 7021-8 ####RAUDEL MENJIVAR ([id number])[facility] ([facility])[address] [place] [address] 98980 Erythrocyte distribution width (RBC) [Ratio] 14.9 % High 11.5-14.5 [facility] Comment on above: Performed By: #### 5 7021-8 ####RAUDEL MENJIVAR ([id number])[facility] ([facility])[address] [place] [address] 22859 Hematocrit (Bld) [Volume fraction] 37.0 % Normal 36.0-46.0 [facility] Comment on above: Performed By: #### 5 7021-8 ####RAUDEL MENJIVAR ([id number])[facility] ([facility])[address] [place] [address] 95554 Hemoglobin (Bld) [Mass/Vol] 11.8 g/dL Low 12.0-16.0 [facility] Comment on above: Performed By: #### 5 7021-8 ####RAUDEL MENJIVAR ([id number])[facility] ([facility])[address] [place] [address] 98562 Immature granulocytes (Bld) [#/Vol] 0.02 x10*3/uL Normal 0.00-0.70 [facility] Comment on above: Performed By: #### 5 7021-8 ####RAUDEL MENJIVAR ([id number])[facility] ([facility])[address] [place] [address] 96149 Immature granulocytes/100 WBC (Bld) 0.2 % Normal 0.0-0.9 [facility] Comment on above: Result Comment: Yuliya ture Granulocyte Count (IG) includes promyelocytes, myelocytes and metamyelocytes but does not include bands. Percent differential counts (%) should be interpreted in the context of the absolute cell counts (cells/UL). Performed By: #### 5 7021-8 ####RAUDEL MENJIVAR ([id number])[facility] ([facility])[address] [place] [address] 71318 Lymphocytes (Bld) [#/Vol] 2.86 x10*3/uL Normal 1.20-4.80 [facility] Comment on above: Performed By: #### 5 7021-8 ####RAUDEL MENJIVAR ([id number])[facility] ([facility])[address] [place] [address] 69260 Lymphocytes/100 WBC (Bld) 35.0 % Normal 13.0-44.0 [facility] Comment on above: Performed By: #### 5 7021-8 ####RAUDEL MENJIVAR ([id number])[facility] ([facility])[address] [place] [address] 45012 MCH (RBC) [Entitic mass] 28.6 pg Normal 26.0-34.0 [facility] Comment on above: Performed By: #### 5 7021-8 ####RAUDEL MENJIVAR ([id number])[facility] ([facility])[address] [place] [address] 55697 MCHC (RBC) [Mass/Vol] 31.9 g/dL Low 32.0-36.0 [facility] Comment on above: Performed By: #### 5 7021-8 ####RAUDEL MENJIVAR ([id number])[facility] ([facility])[address] [place] [address] 72326 MCV (RBC) [Entitic vol] 90 fL Normal 80-100 [facility] Comment on above: Performed By: #### 5 7021-8 ####RAUDEL MENJIVAR ([id number])[facility] ([facility])[address] [place] [address] 75806 Monocytes (Bld) [#/Vol] 0.61 x10*3/uL Normal 0.10-1.00 [facility] Comment on above: Performed By: #### 5 7021-8 ####RAUDEL MENJIVAR ([id number])[facility] ([facility])[address] [place] [address] 26177 Monocytes/100 WBC (Bld) 7.5 % Normal 2.0-10.0 [facility] Comment on above: Performed By: #### 5 7021-8 ####RAUDEL MENJIVAR ([id number])[facility] ([facility])[address] [place] [address] 78653 Neutrophils (Bld) [#/Vol] 4.26 x10*3/uL Normal 1.20-7.70 [facility] Comment on above: Result Comment: Perc ent differential counts (%) should be interpreted in the context of the absolute cell counts (cells/uL). Performed By: #### 5 7021-8 ####RAUDEL MENJIVAR ([id number])[facility] ([facility])[address] [place] [address] 10074 Neutrophils/100 WBC (Bld) 52.1 % Normal 40.0-80.0 [facility] Comment on above: Performed By: #### 5 7021-8 ####RAUDEL MENJIVAR ([id number])[facility] ([facility])[address] [place] [address] 22367 Nucleated RBC/100 WBC (Bld) [Ratio] 0.0 /100 WBCs Normal 0.0-0.0 [facility] Comment on above: Performed By: #### 5 7021-8 ####RAUDEL MENJIVAR ([id number])[facility] ([facility])[address] [place] [address] 32758 Platelets (Bld) [#/Vol] 363 x10*3/uL Normal 150-450 [facility] Comment on above: Performed By: #### 5 7021-8 ####RAUDEL MENJIVAR ([id number])[facility] ([facility])[address] [place] [address] 84019 RBC (Bld) [#/Vol] 4.12 x10*6/uL Normal 4.00-5.20 [facility] Comment on above: Performed By: #### 5 7021-8 ####RAUDEL MENJIVAR ([id number])[facility] ([facility])[address] [place] [address] 99580 WBC (Bld) [#/Vol] 8.2 x10*3/uL Normal 4.4-11.3 [facility] Comment on above: Performed By: #### 5 7021-8 ####RAUDEL MENJIVAR ([id number])[facility] ([facility])[address] [place] [address] 23480 Urinalysis complete W Reflex Culture panel (U)on 06-06-2023 Appearance (U) Hazy Normal Clear [facility] Comment on above: Performed By: #### 5 8077-9 ####RAUDEL MENJIVAR ([id number])[facility] ([facility])[address] [place] [address] 83240 Bilirubin (U) [Mass/Vol] Negative Normal NEGATIVE [facility] Comment on above: Performed By: #### 5 8077-9 ####RAUDEL MENJIVAR ([id number])[facility] ([facility])[address] [place] [address] Color (U) Yellow Normal Straw, Yellow [facility] Comment on above: Performed By: #### 5 8077-9 ####RAUDEL MENJIVAR ([id number])[facility] ([facility])[address] [place] [address] 88576 Crystals.amorphous Computer assisted (U) [#/Area] 1+ /HPF Normal NONE, 1+, 2+ [facility] Comment on above: Performed By: #### 5 8077-9 ####RAUDEL MENJIVAR ([id number])[facility] ([facility])[address] [place] [address] Glucose Auto test strip (U) [Mass/Vol] Negative Normal NEGATIVE [facility] Comment on above: Performed By: #### 5 8077-9 ####RAUDEL MENJIVAR ([id number])[facility] ([facility])[address] [place] [address] Ketones (U) [Mass/Vol] Negative Normal NEGATIVE [facility] Comment on above: Performed By: #### 5 8077-9 ####RAUDEL MENJIVAR ([id number])[facility] ([facility])[address] [place] [address] Leukocyte clumps Auto (Urine sed) [#/Area] FEW Normal Reference range not established. [facility] Comment on above: Performed By: #### 5 8077-9 ####RAUDEL MENJIVAR ([id number])[facility] ([facility])[address] [place], [place] [id number] Leukocyte esterase Auto test strip Ql (U) Negative Normal NEGATIVE [facility] Comment on above: Performed By: #### 5 8077-9 ####RAUDEL MENJIVAR ([id number])[facility] ([facility])[address] [place] [address] 96372 Mucus Auto (Urine sed) [#/Area] 1+ /LPF Normal Reference range not established. [facility] Comment on above: Performed By: #### 5 8077-9 ####RAUDEL MENJIVAR ([id number])[facility] ([facility])[address] [place] [address] 36803 Nitrite Auto test strip Ql (U) Negative Normal NEGATIVE [facility] Comment on above: Performed By: #### 5 8077-9 ####RAUDEL MENJIVAR ([id number])[facility] ([facility])[address] [place] [address] 83705 pH (U) 7.0 [pH] Normal 5.0, 5.5, 6.0, 6.5, 7.0, 7.5, 8.0 [facility] Comment on above: Performed By: #### 5 8077-9 ####RAUDEL MENJIVAR ([id number])[facility] ([facility])[address] [place] [address] Protein (U) [Mass/Vol] 100 (2+) Normal NEGATIVE [facility] Comment on above: Performed By: #### 5 8077-9 ####RAUDEL MENJIVAR ([id number])[facility] ([facility])[address] [place] [address] 82187 RBC (U) [#/Vol] LARGE (3+) Abnormal NEGATIVE [facility] Comment on above: Performed By: #### 5 8077-9 ####RAUDEL MENJIVAR ([id number])[facility] ([facility])[address] [place] [address] 86941 RBC Auto (Urine sed) [#/Area] >20 Abnormal NONE, 1-2, 3-5 [facility] Comment on above: Performed By: #### 5 8077-9 ####RAUDEL MENJIVAR ([id number])[facility] ([facility])[address] [place] [address] 38162 Specific gravity (U) [Rel density] 1.020 Normal 1.005-1.035 [facility] Comment on above: Performed By: #### 5 8077-9 ####RAUDEL MENJIVAR ([id number])[facility] ([facility])[address] [place] [address] 38701 Urobilinogen (U) [Mass/Vol] mg/dL Normal <2.0 [facility] Comment on above: Performed By: #### 5 8077-9 ####RAUDEL MENJIVAR ([id number])[facility] ([facility])[address] [place] [address] 61326 WBC Auto (Urine sed) [#/Area] 21-50 Abnormal 1-5, NONE [facility] Comment on above: Performed By: #### 5 8077-9 ####RAUDEL MENJIVAR ([id number])[facility] ([facility])[address] [place] [address] 10535 Basophil percentageOrdered B y: Jeanette Roach on 03-18-2023 WBC (Bld) [#/Vol] 9.4 10*3/uL 4.4-11.0 [facility] Blood erythrocytes count (nu mber/volume)Ordered By: Jeanette Roach on 03-18-2023 RBC (Bld) [#/Vol] 3.98 10*6/uL 4.2-5.4 [facility] Blood hemoglobin measurement (mass/volume)Ordered By: Jeanette Roach on 03-18-2023 Hemoglobin (Bld) [Mass/Vol] 10.4 g/dL 12.0-15.0 [facility] Blood platelet mean volumeOr dered By: Jeanette Roach on 03-18-2023 Platelet mean volume (Bld) [Entitic vol] 9.1 fL 6.2-12.0 [facility] Determination of erythrocyte mean corpuscular volume (MCV)Ordered By: Jeanette Roach on 03-18-2023 MCV (RBC) [Entitic vol] 87.7 fL 81-99 [facility] Hematocrit Auto (Bld) [Volum e fraction]Ordered By: Jeanette Roach on 03-18-2023 Hematocrit (Bld) [Volume fraction] 34.9 % 37-47 [facility] Laboratory - Chemistry and C hemistry - challengeOrdered By: Jeanette Roach on 03-18-2023 ALT [Catalytic activity/Vol] 17 U/L 13-56 [facility] Laboratory - Hematology and Cell countsOrdered By: Jeanette Roach on 03-18-2023 Erythrocyte distribution width (RBC) [Entitic vol] 49.8 fL 35.1-43.9 [facility] Erythrocyte distribution width (RBC) [Ratio] 15.8 % 11.6-14.6 [facility] MCH (RBC) [Entitic mass] 26.1 pg 27.0-32.0 [facility] MCHC Auto (RBC) [Mass/Vol]Or dered By: Jeanette Roach on 03-18-2023 MCHC (RBC) [Mass/Vol] 29.8 g/dL 32-36 [facility] No Panel InformationOrdered By: Jeanette Roach on 03-18-2023 Estimated Creatinine Clearance Calc 116.32 ml/min [facility] Estimated GFR (MDRD) Amer 136 mL/min >60 [facility] Comment on above: GFR Calc Estimated GFR (MDRD) Non-Af Amer 112 mL/min >60 [facility] Comment on above: Non- GFR Calc Platelets bldOrdered By: Marc Roach on 03-18-2023 Platelets (Bld) [#/Vol] 400 10*3/uL 150-450 [facility] Serum or plasma creatinine m easurement (mass/volume)Ordered By: Jeanette Roach on 03-18-2023 Creatinine [Mass/Vol] 0.65 mg/dL 0.55-1.02 [facility] Comment on above: The validity of the calculated GFR & GFRAA in patients over 70 years has not been determined. Clinical correlation is essential. Serum or plasma uric acid me asurement (mass/volume)Ordered By: Jeanette Roach on 03-18-2023 Urate [Mass/Vol] 5.1 mg/dL 2.6-6.0 [facility] Comment on above: The drugs N-Acetylcy steine and Metamizole may falsely depress this assay. Thin prep Papanicolaou smear with manual screeningOrdered By: Jeanette Roach on 03-18-2023 Thin prep Papanicolaou smear with manual screening 12 U/L 15-37 [facility] APTTon 03-13-2023 aPTT Coag (PPP) [Time] 27 s [facility] Work Phone: Bacteria identifiedon 2022 Bacteria identified Cx Nom (U) Test: Urine Culture Specimen Source: Clean Catch/Voided Specimen Type: Urine Specimen Date: 03/13/2023 6:19 PM Result Date: 03/14/2023 7:22 PM Result Status: Final result Abnormal: No Resulting Lab: [facility] [address] [facility] [address] CULTURE No significant growth Normal [facility] Comment on above: Performed By: #### 6 30-4 ####LEA Jacobo ([id number])[facility] ([facility])[address] [place] [address] Basic metabolic 2000 panelon 03-13-2023 Anion gap [Moles/Vol] 15 mmol/L 10 - 2 0 mmol/L [facility] Calcium [Mass/Vol] 8.8 mg/dL 8.6 - 10. 3 mg/dL [facility] Chloride [Moles/Vol] 103 mmol/L 98 - 10 7 mmol/L [facility] CO2 [Moles/Vol] 25 mmol/L 21 - 32 mmol/L [facility] Creatinine [Mass/Vol] 0.51 mg/dL 0.50 - 1.05 mg/dL [facility] GFR/1.73 sq M.predicted MDRD (S/P/Bld) [Vol rate/Area] - PINF [facility] Comment on above: Calculations of yolanda mated GFR are performed using the 2020 CKD-EPI Study Refit equation without the race variable for the IDMS-Traceable creatinine methods. https://jasn.asnjournals.org/content//ASN.20466 23628 Glucose [Mass/Vol] 89 mg/dL 74 - 99 mg/dL [facility] Potassium [Moles/Vol] 3.8 mmol/L 3.5 - 5.3 mmol/L [facility] Sodium [Moles/Vol] 139 mmol/L 136 - 145 mmol/L [facility] Urea nitrogen [Mass/Vol] 10 mg/dL 6 - 23 mg/dL [facility] Anion gap [Moles/Vol] 15 mmol/L Normal 10-20 [facility] Comment on above: Performed By: #### 2 4321-2 ####RAUDEL MENJIVAR ([id number])[facility] ([facility] [place] [address] Calcium [Mass/Vol] 8.8 mg/dL Normal 8.6-10.3 [facility] Comment on above: Performed By: #### 2 4321-2 ####RAUDEL MENJIVAR ([id number])[facility] ([facility])[address] [place] [address] [id number] Chloride [Moles/Vol] 103 mmol/L Normal 98-107 [facility] Comment on above: Performed By: #### 2 4321-2 ####RAUDEL MENJIVAR ([id number])[facility] ([facility])[address] [place] [address] [id number] CO2 [Moles/Vol] 25 mmol/L Normal 21-32 [facility] Comment on above: Performed By: #### 2 4321-2 ####RAUDEL MENJIVAR ([id number])[facility] ([facility])[address] [place] [address] 60741 Creatinine [Mass/Vol] 0.51 mg/dL Normal 0.50-1.05 [facility] Comment on above: Performed By: #### 2 4321-2 ####RAUDEL MENJIVAR ([id number])[facility] ([facility])[address] [place] [address] 66481 GFR/1.73 sq M.predicted MDRD (S/P/Bld) [Vol rate/Area] mL/min/{1.73_m2} Normal >60 [facility] Comment on above: Result Comment: Calc ulations of estimated GFR are performed using the 2020 CKD-EPI Study Refit equation without the race variable for the IDMS-Traceable creatinine methods. https://jasn.asnjournals.org/content/early//ASN.98550 35748 Performed By: #### 2 4321-2 ####RAUDEL MENJIVAR ([id number])[facility] ([facility])[address] [place] [address] 38666 Glucose [Mass/Vol] 89 mg/dL Normal 74-99 [facility] Comment on above: Performed By: #### 2 4321-2 ####RAUDEL MENJIVAR ([id number])[facility] ([facility])[address] [place] [address] 40275 Potassium [Moles/Vol] 3.8 mmol/L Normal 3.5-5.3 [facility] Comment on above: Performed By: #### 2 4321-2 ####RAUDEL MENJIVAR ([id number])[facility] ([facility])[address] [place] [address] 46691 Sodium [Moles/Vol] 139 mmol/L Normal 136-145 [facility] Comment on above: Performed By: #### 2 4321-2 ####RAUDEL MENJIVAR ([id number])[facility] ([facility])[address] [place] [address] 07428 Urea nitrogen [Mass/Vol] 10 mg/dL Normal 6-23 [facility] Comment on above: Performed By: #### 2 4321-2 ####RAUDEL MENJIVAR ([id number])[facility] ([facility])[address] [place] [address] 60718 C reactive proteinon 023 CRP [Mass/Vol] 6.62 mg/dL High <1.00 [facility] Comment on above: Performed By: #### 1 988-5 #### RAUDEL MENJIVAR ([id number]) [facility] ([facility]) [address] [place] [address] 88074 C-Reactive Proteinon 023 CRP [Mass/Vol] 6.62 mg/dL High NINF - 1.00 mg/dL [facility] CBC W Auto Differential pane l (Bld)on 03-13-2023 Basophils (Bld) [#/Vol] 0.04 10*3/uL [facility] Basophils/100 WBC (Bld) 0.3 % 0.0 - 2.0 % [facility] Eosinophils (Bld) [#/Vol] 0.33 10*3/uL [facility] Eosinophils/100 WBC (Bld) 2.8 % 0.0 - 6.0 % [facility] Erythrocyte distribution width (RBC) [Ratio] 15.5 % High 11.5 - 14.5 % [facility] Hematocrit (Bld) [Volume fraction] 32.1 % Low 36.0 - 46.0 % [facility] Hemoglobin (Bld) [Mass/Vol] 9.7 g/dL Low 12.0 - 16.0 g/dL [facility] Immature granulocytes (Bld) [#/Vol] 0.12 10*3/uL [facility] Immature granulocytes/100 WBC (Bld) 1.0 % High 0.0 - 0.9 % [facility] Comment on above: Immature Granulocyte Count (IG) includes promyelocytes, myelocytes and metamyelocytes but does not include bands. Percent differential counts (%) should be interpreted in the context of the absolute cell counts (cells/UL). Interpretation and review of laboratory results Abnormal [facility] Lymphocytes (Bld) [#/Vol] 1.38 10*3/uL [facility] Lymphocytes/100 WBC (Bld) 11.8 % 13.0 - 44.0 % [facility] MCH (RBC) [Entitic mass] 26.5 pg 26.0 - 34.0 pg [facility] MCHC (RBC) [Mass/Vol] 30.2 g/dL Low 32.0 - 36.0 g/dL [facility] MCV (RBC) [Entitic vol] 88 fL 80 - 100 fL [facility] Monocytes (Bld) [#/Vol] 0.80 10*3/uL [facility] Monocytes/100 WBC (Bld) 6.9 % 2.0 - 10.0 % [facility] Neutrophils (Bld) [#/Vol] 8.99 10*3/uL High [facility] Comment on above: Percent differential counts (%) should be interpreted in the context of the absolute cell counts (cells/uL). Neutrophils/100 WBC (Bld) 77.2 % 40.0 - 80.0 % [facility] Nucleated RBC/100 WBC (Bld) [Ratio] 0.0 % [facility] Platelet mean volume (Bld) [Entitic vol] 9.6 fL 7.5 - 11.5 fL [facility] Platelets (Bld) [#/Vol] 287 10*3/uL [facility] RBC (Bld) [#/Vol] 3.66 10*6/uL Low Unive [facility] WBC (Bld) [#/Vol] 11.7 10*3/uL High [facility] Basophils (Bld) [#/Vol] 0.04 x10*3/uL Normal 0.00-0.10 [facility] Comment on above: Performed By: #### 5 7021-8 #### RAUDEL MENJIVAR ([id number]) [facility] ([facility]) [address] [place] [address] 28454 Basophils/100 WBC (Bld) 0.3 % Normal 0.0-2.0 [facility] Comment on above: Performed By: #### 5 7021-8 #### RAUDEL MENJIVAR ([id number]) [facility] ([facility]) [address] [place] [address] 01564 Eosinophils (Bld) [#/Vol] 0.33 x10*3/uL Normal 0.00-0.70 [facility] Comment on above: Performed By: #### 5 7021-8 #### RAUDEL MENJIVAR ([id number]) [facility] ([facility]) [address] [place] [address] 07784 Eosinophils/100 WBC (Bld) 2.8 % Normal 0.0-6.0 [facility] Comment on above: Performed By: #### 5 7021-8 #### RAUDEL MENJIVAR ([id number]) [facility] ([facility]) [address] [place] [address] 05483 Erythrocyte distribution width (RBC) [Ratio] 15.5 % High 11.5-14.5 [facility] Comment on above: Performed By: #### 5 7021-8 #### RAUDEL MENJIVAR ([id number]) [facility] ([facility]) [address] [place] [address] 16823 Hematocrit (Bld) [Volume fraction] 32.1 % Low 36.0-46.0 [facility] Comment on above: Performed By: #### 5 7021-8 #### RAUDEL MENJIVAR ([id number]) [facility] ([facility]) [address] [place] [address] 51885 Hemoglobin (Bld) [Mass/Vol] 9.7 g/dL Low 12.0-16.0 [facility] Comment on above: Performed By: #### 5 7021-8 #### RAUDEL MENJIVAR ([id number]) [facility] ([facility]) [address] [place] [address] 95788 Immature granulocytes (Bld) [#/Vol] 0.12 x10*3/uL Normal 0.00-0.70 [facility] Comment on above: Performed By: #### 5 7021-8 #### RAUDEL MENJIVAR ([id number]) [facility] ([facility]) [address] [place] [address] 12707 Immature granulocytes/100 WBC (Bld) 1.0 % High 0.0-0.9 [facility] Comment on above: Result Comment: Yuliya ture Granulocyte Count (IG) includes promyelocytes, myelocytes and metamyelocytes but does not include bands. Percent differential counts (%) should be interpreted in the context of the absolute cell counts (cells/UL). Performed By: #### 5 7021-8 #### RAUDEL MENJIVAR ([id number]) [facility] ([facility]) [address] [place] [address] 47682 Lymphocytes (Bld) [#/Vol] 1.38 x10*3/uL Normal 1.20-4.80 [facility] Comment on above: Performed By: #### 5 7021-8 #### RAUDEL MENJIVAR ([id number]) [facility] ([facility]) [address] [place] [address] 26543 Lymphocytes/100 WBC (Bld) 11.8 % Normal 13.0-44.0 [facility] Comment on above: Performed By: #### 5 7021-8 #### RAUDEL MENJIVAR ([id number]) [facility] ([facility]) [address] [place] [address] 03649 MCH (RBC) [Entitic mass] 26.5 pg Normal 26.0-34.0 [facility] Comment on above: Performed By: #### 5 7021-8 #### RAUDEL MENJIVAR ([id number]) [facility] ([facility]) [address] [place] [address] 29626 MCHC (RBC) [Mass/Vol] 30.2 g/dL Low 32.0-36.0 [facility] Comment on above: Performed By: #### 5 7021-8 #### RAUDEL MENJIVAR ([id number]) [facility] ([facility]) [address] [place] [address] 22664 MCV (RBC) [Entitic vol] 88 fL Normal 80-100 [facility] Comment on above: Performed By: #### 5 7021-8 #### RAUDEL MENJIVAR ([id number]) [facility] ([facility]) [address] [place], [place] [address] Monocytes (Bld) [#/Vol] 0.80 x10*3/uL Normal 0.10-1.00 [facility] Comment on above: Performed By: #### 5 7021-8 #### RAUDEL MENJIVAR ([id number]) [facility] ([facility]) [address] [place] [address] 01676 Monocytes/100 WBC (Bld) 6.9 % Normal 2.0-10.0 [facility] Comment on above: Performed By: #### 5 7021-8 #### RAUDEL MENJIVAR ([id number]) [facility] ([facility]) [address] [place] [address] 67548 Neutrophils (Bld) [#/Vol] 8.99 x10*3/uL High 1.20-7.70 [facility] Comment on above: Result Comment: Perc ent differential counts (%) should be interpreted in the context of the absolute cell counts (cells/uL). Performed By: #### 5 7021-8 #### RAUDEL MENJIVAR ([id number]) [facility] ([facility]) [address] [place] [address] 06415 Neutrophils/100 WBC (Bld) 77.2 % Normal 40.0-80.0 [facility] Comment on above: Performed By: #### 5 7021-8 #### RAUDEL MENJIVAR ([id number]) [facility] ([facility]) [address] [place] [address] 41474 Nucleated RBC/100 WBC (Bld) [Ratio] 0.0 /100 WBCs Normal 0.0-0.0 [facility] Comment on above: Performed By: #### 5 7021-8 #### RAUDEL MENJIVAR ([id number]) [facility] ([facility]) [address] [place] [address] 60396 Platelet mean volume (Bld) [Entitic vol] 9.6 fL Normal 7.5-11.5 [facility] Comment on above: Performed By: #### 5 7021-8 #### RAUDEL MENJIVAR ([id number]) [facility] ([facility]) [address] [place] [address] 31095 Platelets (Bld) [#/Vol] 287 x10*3/uL Normal 150-450 [facility] Comment on above: Performed By: #### 5 7021-8 #### RAUDEL MENJIVAR ([id number]) [facility] ([facility]) [address] [place] [address] 45439 RBC (Bld) [#/Vol] 3.66 x10*6/uL Low 4.00-5.20 [facility] Comment on above: Performed By: #### 5 7021-8 #### RAUDEL MENJIVAR ([id number]) [facility] ([facility]) [address] [place] [address] 22080 WBC (Bld) [#/Vol] 11.7 x10*3/uL High 4.4-11.3 [facility] Comment on above: Performed By: #### 5 7021-8 #### RAUDEL MENJIVAR ([id number]) [facility] ([facility]) [address] [place] [address] 32103 CRP [Mass/Vol]on 03-13-2023 Interpretation and review of laboratory results Abnormal [facility] Coagulation surface inducedo n 03-13-2023 aPTT Coag (PPP) [Time] 27 s Normal 27-38 Un [facility] Comment on above: Order Comment: The A PTT is no longer used for monitoring Unfractionated Heparin Therapy. For monitoring Heparin Therapy, use the Heparin Assay. Performed By: #### 1 4979-9 #### RAUDEL MENJIVAR ([id number]) [facility] ([facility]) [address] [place], [place] [address] Coagulation tissue factor in ducedon 03-13-2023 PT Coag (PPP) [Time] 10.9 s Normal 9.8-12.8 [facility] Comment on above: Performed By: #### 5 902-2 #### RAUDEL MENJIVAR ([id number]) [facility] ([facility]) [address] [place] [address] 58880 Hepatic function 2000 panelo n 03-13-2023 Albumin BCP dye [Mass/Vol] 3.2 g/dL Low 3.4 - 5.0 g/dL [facility] ALP [Catalytic activity/Vol] 142 U/L High 33 - 110 U/L [facility] ALT With P-5'-P [Catalytic activity/Vol] 9 U/L 7 - 45 U/L [facility] Comment on above: Patients treated wit h Sulfasalazine may generate falsely decreased results for ALT. AST With P-5'-P [Catalytic activity/Vol] 14 U/L 9 - 39 U/L [facility] Bilirubin [Mass/Vol] 0.7 mg/dL 0.0 - 1 .2 mg/dL [facility] Bilirubin.direct [Mass/Vol] 0.1 mg/dL 0.0 - 0.3 mg/dL [facility] Interpretation and review of laboratory results Abnormal [facility] Protein [Mass/Vol] 6.3 g/dL Low 6.4 - 8.2 g/dL [facility] Albumin BCP dye [Mass/Vol] 3.2 g/dL Low 3.4-5.0 [facility] Comment on above: Performed By: #### 2 4324-3 ####RAUDEL MENJIVAR ([id number])[facility] ([facility])[address] [place] [address] ALP [Catalytic activity/Vol] 142 U/L High 33-110 [facility] Comment on above: Performed By: #### 2 4324-3 ####RAUDEL MENJIVAR ([id number])[facility] ([facility])[address] [place] [address] 04004 ALT With P-5'-P [Catalytic activity/Vol] 9 U/L Normal 7-45 [facility] Comment on above: Result Comment: Monika ents treated with Sulfasalazine may generate falsely decreased results for ALT. Performed By: #### 2 4324-3 ####RAUDEL MENJIVAR ([id number])[facility] ([facility])[address] [place] [address] 59031 AST With P-5'-P [Catalytic activity/Vol] 14 U/L Normal 9-39 [facility] Comment on above: Performed By: #### 2 4324-3 ####RAUDEL MENJIVAR ([id number])[facility] ([facility])[address] [place] [address] 37350 Bilirubin [Mass/Vol] 0.7 mg/dL Normal 0.0-1.2 [facility] Comment on above: Performed By: #### 2 4324-3 ####RAUDEL MENJIVAR ([id number])[facility] ([facility])[address] [place] [address] 90660 Bilirubin.direct [Mass/Vol] 0.1 mg/dL Normal 0.0-0.3 [facility] Comment on above: Performed By: #### 2 4324-3 ####RAUDEL MENJIVAR ([id number])[facility] ([facility])[address] [place] [address] 15446 Protein [Mass/Vol] 6.3 g/dL Low 6.4-8.2 [facility] Comment on above: Performed By: #### 2 4324-3 ####RAUDEL MENJIVAR ([id number])[facility] ([facility])[address] [place] [address] [place] [address] Lactateon 03-13-2023 Lactate [Moles/Vol] 0.9 mmol/L 0.4 - 2. 0 mmol/L [facility] Lactate [Moles/Vol] 0.9 mmol/L Normal 0.4-2.0 [facility] Comment on above: Order Comment: Venip uncture immediately after or during the administration of Metamizole may lead to falsely low results. Testing should be performed immediately prior to Metamizole dosing. Performed By: #### 2 524-7 #### RAUDEL MENJIVAR ([id number]) [facility] ([facility]) [address] [place] [address] 59072 Lactate [Moles/Vol]on 2022 Interpretation and review of laboratory results Normal [facility] Venipuncture immediately after or during the administration of Metamizole may lead to falsely low results. Testing should be performed immediately prior to Metamizole dosing. [facility] Magnesiumon 03-13-2023 Magnesium [Mass/Vol] 1.91 mg/dL 1.60 - 2.40 mg/dL [facility] Magnesium [Mass/Vol] 1.91 mg/dL Normal 1.60-2.40 [facility] Comment on above: Performed By: #### 1 9123-9 #### RAUDEL MENJIVAR ([id number]) [facility] ([facility]) [address] [place] [address] 29728 Natriuretic peptide B [Mass/ Vol]on 03-13-2023 Interpretation and review of laboratory results Abnormal [facility] Natriuretic peptide B (Bld) [Mass/Vol] 285 pg/mL High 0 - 99 pg/mL [facility] <100 pg/mL - Heart failure unlikely 100-299 pg/mL - Intermediate probability of acute heart failure exacerbation. Correlate with clinical context and patient history. >=300 pg/mL - Heart Failure likely. Correlate with clinical context and patient history. BNP testing is performed using different testing methodology at [facility] than at other [facility]. Direct result comparisons should only be made within the same method. [facility] Natriuretic peptide B (Bld) [Mass/Vol] 285 pg/mL High 0-99 [facility] Comment on above: Order Comment: <100 pg/mL - Heart failure unlikely 100-299 pg/mL - Intermediate probability of acute heart failure exacerbation. Correlate with clinical context and patient history. >=300 pg/mL - Heart Failure likely. Correlate with clinical context and patient history. BNP testing is performed using different testing methodology at [facility] than at other [facility]. Direct result comparisons should only be made within the same method. Performed By: #### 3 0934-4 #### RAUDEL MENJIVAR ([id number]) [facility] ([facility]) [address] [place] [address] No Panel Informationon 03-13 Interpretation and review of laboratory results Abnormal [facility] Interpretation and review of laboratory results Normal [facility] PT Coag (PPP) [Time]Ordered By: Carey Epstein on 03-13-2023 INR Coag (PPP) [Relative time] 1.0 {INR} 0.9 - 1.1 [facility] Interpretation and review of laboratory results Normal [facility] PT Coag (PPP) [Time]on 03-13 INR Coag (PPP) [Relative time] 1.0 Normal 0.9-1.1 [facility] Comment on above: Performed By: #### 5 902-2 #### RAUDEL MENJIVAR ([id number]) [facility] ([facility]) [address] [place] [address] Phosphateon 03-13-2023 Phosphate [Mass/Vol] 4.1 mg/dL Normal 2.5-4.9 [facility] Comment on above: Result Comment: The performance characteristics of phosphorus testing in heparinized plasma have been validated by the individual laboratory site where testing is performed. Testing on heparinized plasma is not approved by the FDA; however, such approval is not necessary. Performed By: #### 2 777-1 #### RAUDEL MENJIVAR ([id number]) [facility] ([facility]) [address] [place] [address] Phosphoruson 03-13-2023 Phosphate [Mass/Vol] 4.1 mg/dL 2.5 - 4 .9 mg/dL [facility] Comment on above: The performance miles acteristics of phosphorus testing in heparinized plasma have been validated by the individual laboratory site where testing is performed. Testing on heparinized plasma is not approved by the FDA; however, such approval is not necessary. Protime-INROrdered By: Marilynn Epstein on 03-13-2023 PT Coag (PPP) [Time] 10.9 s [facility] Tropinin I.cardiac panel Hig h sensitivity methodon 03-13-2023 Interpretation and review of laboratory results Normal [facility] Less than 99th percentile of normal [...] using a different testing methodology at [facility] than at other [facility]. Direct result comparisons should only be made within the same method. [facility] Troponin I, High Sensitivity on 03-13-2023 Tropinin I.cardiac panel High sensitivity method 6 ng/L 0 - 13 ng/L [facility] Troponin I.cardiac panelon 1 Tropinin I.cardiac panel High sensitivity method 6 ng/L Normal 0-13 [facility] Comment on above: Order [...] using a different testing methodology at [facility] than at other [facility]. Direct result comparisons should only be made within the same method. Performed By: #### 8 9577-1 #### RAUDEL MENJIVAR ([id number]) [facility] ([facility]) [address] [place] [address] Urinalysis complete W Reflex Culture panel (U)on 03-13-2023 Appearance (U) Clear Clear [facility] Bilirubin (U) [Mass/Vol] Negative NEGATIVE [facility] Color (U) Straw Straw, Yellow [facility] Glucose Auto test strip (U) [Mass/Vol] Negative NEGATIVE mg/dL [facility] Ketones (U) [Mass/Vol] Negative NEGAT JESUS mg/dL [facility] Leukocyte esterase Auto test strip Ql (U) TRACE Abnormal NEGATIVE [facility] Nitrite Auto test strip Ql (U) Negative NEGATIVE [facility] pH (U) 8.0 [pH] 5.0, 5.5, 6.0, 6.5, 7.0, 7.5, 8.0 [facility] Protein (U) [Mass/Vol] Negative NEGAT JESUS mg/dL [facility] RBC (U) [#/Vol] MODERATE (2+) Abnormal NEGATIVE [facility] Specific gravity (U) [Rel density] 1.010 1.005 - 1.035 [facility] Urobilinogen (U) [Mass/Vol] mg/dL NINF - 2.0 mg/dL [facility] Appearance (U) Clear Normal Clear [facility] Comment on above: Performed By: #### 5 8077-9 ####RAUDEL MENJIVAR ([id number])[facility] ([facility])[address] [place] [address] Bilirubin (U) [Mass/Vol] Negative Normal NEGATIVE [facility] Comment on above: Performed By: #### 5 8077-9 ####RAUDEL MENJIVAR ([id number])[facility] ([facility])[address] [place] [address] 16614 Color (U) Straw Normal Straw, Yellow [facility] Comment on above: Performed By: #### 5 8077-9 ####RAUDEL MENJIVAR ([id number])[facility] ([facility])[address] [place] [address] Glucose Auto test strip (U) [Mass/Vol] Negative Normal NEGATIVE [facility] Comment on above: Performed By: #### 5 8077-9 ####RAUDEL MENJIVAR ([id number])[facility] ([facility])[address] [place] [address] Ketones (U) [Mass/Vol] Negative Normal NEGATIVE [facility] Comment on above: Performed By: #### 5 8077-9 ####RAUDEL MENJIVAR ([id number])[facility] ([facility])[address] [place] [address] Leukocyte esterase Auto test strip Ql (U) TRACE Abnormal NEGATIVE [facility] Comment on above: Performed By: #### 5 8077-9 ####RAUDEL MENJIVAR ([id number])[facility] ([facility])[address] [place] [address] Nitrite Auto test strip Ql (U) Negative Normal NEGATIVE [facility] Comment on above: Performed By: #### 5 8077-9 ####RAUDEL MENJIVAR ([id number])[facility] ([facility])[address] [place], [place] [address] pH (U) 8.0 [pH] Normal 5.0, 5.5, 6.0, 6.5, 7.0, 7.5, 8.0 [facility] Comment on above: Performed By: #### 5 8077-9 ####RAUDEL MENJIVAR ([id number])[facility] ([facility])[address] [place], [place] [address] Protein (U) [Mass/Vol] Negative Normal NEGATIVE [facility] Comment on above: Performed By: #### 5 8077-9 ####RAUDEL MENJIVAR ([id number])[facility] ([facility])[address] [place] [address] RBC (U) [#/Vol] MODERATE (2+) Abnormal NEGATIVE [facility] Comment on above: Performed By: #### 5 8077-9 ####RAUDEL MENJIVAR ([id number])[facility] ([facility])[address] [place] [address] Specific gravity (U) [Rel density] 1.010 Normal 1.005-1.035 [facility] Comment on above: Performed By: #### 5 8077-9 ####RAUDEL MENJIVAR ([id number])[facility] ([facility])[address] [place] [address] Urobilinogen (U) [Mass/Vol] mg/dL Normal <2.0 [facility] Comment on above: Performed By: #### 5 8077-9 ####RAUDEL MENJIVAR ([id number])[facility] ([facility])[address] [place] [address] Urinalysis microscopic panel Auto Ql (U)on 03-13-2023 RBC Auto (Urine sed) [#/Area] 11-20 Abnormal NONE, 1-2, 3-5 /HPF [facility] WBC Auto (Urine sed) [#/Area] 1-5 1-5, NONE /HPF [facility] RBC Auto (Urine sed) [#/Area] 11-20 Abnormal NONE, 1-2, 3-5 [facility] Comment on above: Performed By: #### 5 3315-8 ####RAUDEL MENJIVAR ([id number])[facility] ([facility])[address] [place] [address] WBC Auto (Urine sed) [#/Area] 1-5 Normal 1-5, NONE [facility] Comment on above: Performed By: #### 5 3315-8 ####RAUDEL MENJIVAR ([id number])[facility] ([facility])[address] [place] [address] XR CHEST 1 VIEWon 10-09-2023 XR CHEST 1 VIEW Interpreted By: Jasen Aguirre, STUDY: XR CHEST 1 VIEW; 03/13/2023 5:17 pm INDICATION: Signs/Symptoms:pre-ecla mpsia. COMPARISON: May 25, [address] and December 14, 2020 chest radiograph ACCESSION NUMBER(S): [id number] ORDERING CLINICIAN: EDY ORELLANA FINDINGS: AP radiograph of the chest was provided. CARDIOMEDIASTINAL SILHOUETTE: Cardiomediastinal silhouette is normal in size and configuration. LUNGS: Lungs are clear. ABDOMEN: No remarkable upper abdominal findings. BONES: No acute osseous changes. IMPRESSION: 1. No evidence of acute cardiopulmonary process. MACRO: None Signed by: Jasen Aguirre 03/13/2023 5:28 PM Dictation workstation: [id number] [facility] XR Chest Single viewon 03-13 1. No evidence of ac [place] cardiopulmonary process. MACRO: None Signed by: Jasen Aguirre 03/13/2023 5:28 PM Dictation workstation: [id number] Interpreted By: Jasen Aguirre, STUDY: XR CHEST 1 VIEW; 03/13/2023 5:17 pm INDICATION: Signs/Symptoms:pre-ecla mpsia. COMPARISON: May 25, [address] and December 14, 2020 chest radiograph ACCESSION NUMBER(S): [id number] ORDERING CLINICIAN: EDY ORELLANA FINDINGS: AP radiograph [...] December 14, 2020 chest radiograph ACCESSION NUMBER(S): [id number] ORDERING CLINICIAN: EDY ORELLANA FINDINGS: AP radiograph of the chest was provided. CARDIOMEDIASTINAL SILHOUETTE: Cardiomediastinal silhouette is normal in size and configuration. LUNGS: Lungs are clear. ABDOMEN: No remarkable upper abdominal findings. BONES: No acute osseous changes. IMPRESSION: 1. No evidence of acute cardiopulmonary process. MACRO: None Signed by: Jasen Aguirre 03/13/2023 5:28 PM Dictation workstation: [id number] [facility] Work Phone: Radiology Study observation (narrative) [facility] Work Phone: XR Chest Single viewOrdered By: Jasen Aguirre on 03-13-2023 [facility] Work Phone: aPTT Coag (PPP) [Time]on Interpretation and review of laboratory results Normal [facility] Work Phone: The APTT is no longe r used for monitoring Unfractionated Heparin Therapy. For monitoring Heparin Therapy, use the Heparin Assay. [facility] Work Phone: [facility] Work Phone: Absolute lymphocyte countOrd ered By: Yuri Crenshaw on 03-09-2023 Lymphocytes Auto (Unsp spec) [#/Vol] 2.13 10*3/uL 0.83-4.51 [facility] Basophil percentageOrdered B y: Yuri Crenshaw on 03-09-2023 Basophils/100 WBC (Bld) 0.3 % 0-1 [facility] Eosinophils/100 WBC (Bld) 2.0 % 0-5 [facility] Neutrophils (Bld) [#/Vol] 10.3 10*3/uL 2.0-7.7 [facility] Neutrophils/100 WBC (Bld) 73.2 % 47-70 [facility] WBC (Bld) [#/Vol] 14.1 10*3/uL 4.4-11.0 [facility] Blood erythrocytes count (nu mber/volume)Ordered By: Yuri Crenshaw on 03-09-2023 RBC (Bld) [#/Vol] 3.54 10*6/uL 4.2-5.4 [facility] Blood hemoglobin measurement (mass/volume)Ordered By: Yuri Crenshaw on 03-09-2023 Hemoglobin (Bld) [Mass/Vol] 9.4 g/dL 12.0-15.0 [facility] Blood lymphocytes/100 leukoc ytesOrdered By: Yuri Crenshaw on 03-09-2023 Lymphocytes/100 WBC (Bld) 15.1 % 19-41 [facility] Blood monocytes/100 leukocyt esOrdered By: Yuri Crenshaw on 03-09-2023 Monocytes/100 WBC (Bld) 8.1 % 0-10 [facility] Blood platelet mean volumeOr dered By: Yuri Crenshaw on 03-09-2023 Platelet mean volume (Bld) [Entitic vol] 10.9 fL 6.2-12.0 [facility] Determination of erythrocyte mean corpuscular volume (MCV)Ordered By: Yuri Crenshaw on 03-09-2023 MCV (RBC) [Entitic vol] 84.7 fL 81-99 [facility] Hematocrit Auto (Bld) [Volum e fraction]Ordered By: Yrui Crenshaw on 03-09-2023 Hematocrit (Bld) [Volume fraction] 30.0 % 37-47 [facility] Laboratory - Chemistry and C hemistry - challengeon 03-09-2023 Glucose Ql (U) Negative [facility] Laboratory - Hematology and Cell countsOrdered By: Yuri Crenshaw on 03-09-2023 Erythrocyte distribution width (RBC) [Entitic vol] 47.6 fL 35.1-43.9 [facility] Erythrocyte distribution width (RBC) [Ratio] 15.6 % 11.6-14.6 [facility] Immature granulocytes/100 WBC (Bld) 1.300 % 0.0-0.9 [facility] Comment on above: IG% - Immature Granu locytes (promyelocytes, myelocytes and metamyelocytes) > 1% indicates that a LEFT SHIFT is Present. MCH (RBC) [Entitic mass] 26.6 pg 27.0-32.0 [facility] Nucleated RBC/100 WBC (Bld) [Ratio] 0.1 % 0-5 [facility] Laboratory - Urinalysison Protein Ql (U) Negative [facility] MCHC Auto (RBC) [Mass/Vol]Or dered By: Yuri Crenshaw on 03-09-2023 MCHC (RBC) [Mass/Vol] 31.3 g/dL 32-36 [facility] Platelets bldOrdered By: Alexis Crenshaw on 03-09-2023 Platelets (Bld) [#/Vol] 281 10*3/uL 150-450 [facility] Serum Treponema species anti body detectionOrdered By: Yuri Crenshaw on 03-09-2023 Treponema sp Ab Ql (S) Non-Reactive [facility] Basophil percentageOrdered B y: Jeanette Roach on 03-08-2023 Basophil percentage 5-10 SEEN /hpf 0-5 [facility] Bilirubin Test strip Ql (U)O rdered By: Jeanette Roach on 03-08-2023 Bilirubin Ql (U) Negative Negative [facility] Ketones Test strip Ql (U)Ord ered By: Jeanette Roach on 03-08-2023 Ketones Ql (U) 50 mg/dl Negative [facility] Mucus LM Ql (Urine sed)Order ed By: Jeanette Roach on 03-08-2023 Mucus Ql (Urine sed) 0 SEEN /hpf [facility] Nitrite Test strip Ql (U)Ord ered By: Jeanette Roach on 03-08-2023 Nitrite Ql (U) Negative Negative [facility] Protein Test strip Ql (U)Ord ered By: Jeanette Roach on 03-08-2023 Protein Ql (U) 30 mg/dl Negative [facility] Squamous epithelial cells de tection in urine sediment by light microscopyOrdered By: Jeanette Roach on 03-08-2023 Epithelial cells.squamous LM Ql (Urine sed) 5-10 SEEN /hpf 5-10 [facility] Urine blood detectionOrdered By: Jeanette Roach on 03-08-2023 RBC Ql (U) 10 /ul Negative [facility] RBC Ql (U) 0-5 SEEN /hpf 0-5 [facility] Urine clarityOrdered By: Marc Roach on 03-08-2023 Clarity (U) Clear Clear [facility] Urine color determinationOrd ered By: Jeanette Roach on 03-08-2023 Color (U) Yellow Yellow [facility] Urine glucose detectionOrder ed By: Jeanette Roach on 03-08-2023 Glucose Ql (U) Normal mg/dl Normal [facility] Urine leukocyte esterase det ection by dipstickOrdered By: Jeanette Roach on 03-08-2023 Leukocyte esterase Test strip Ql (U) 100 /ul Negative [facility] Urine pHOrdered By: Jeanette silva on 03-08-2023 pH (U) 6.5 [pH] 5.0 - 8.0 [facility] Urine sediment bacteria coun t by microscopy (number/high power field)Ordered By: Jeanette Roach on 03-08-2023 Bacteria LM.HPF (Urine sed) [#/Area] 2 /[HPF] None Seen [facility] Urine specific gravity measu rementOrdered By: Jeanette Roach on 03-08-2023 Specific gravity (U) [Rel density] 1.015 1.002-1.030 [facility] Urobilinogen Auto test strip Ql (U)Ordered By: Jeanette Roach on 03-08-2023 Urobilinogen Ql (U) 4 mg/dl Normal [facility] Laboratory - Chemistry and C hemistry - challengeon 02-28-2023 Glucose Ql (U) Negative [facility] Laboratory - Urinalysison Protein Ql (U) Negative [facility] No Panel InformationOrdered By: Yuri Crenshaw on 02-28-2023 Group B Streptococcus Culture Group B Beta Streptococcus is not isolated. [facility] Basophil percentageOrdered B y: Yuri Crenshaw on 02-18-2023 Bilirubin [Mass/Vol] 1.00 mg/dL 0.20-1.00 [facility] Comment on above: For patients on eltr ombopag therapy, use of [place] TBIL is not recommended. Chloride [Moles/Vol] 108 mmol/L 98-107 [facility] Glucose [Mass/Vol] 85 mg/dL 74-106 [facility] Potassium [Moles/Vol] 3.7 mmol/L 3.5-5.1 [facility] Protein [Mass/Vol] 6.1 g/dL 6.4-8.2 [facility] Sodium [Moles/Vol] 137 mmol/L 136-145 [facility] WBC (Bld) [#/Vol] 10.9 10*3/uL 4.4-11.0 [facility] Blood erythrocytes count (nu mber/volume)Ordered By: Yuri Crenshaw on 02-18-2023 RBC (Bld) [#/Vol] 3.36 10*6/uL 4.2-5.4 [facility] Blood hemoglobin measurement (mass/volume)Ordered By: Yuri Crenshaw on 02-18-2023 Hemoglobin (Bld) [Mass/Vol] 9.5 g/dL 12.0-15.0 [facility] Blood platelet mean volumeOr dered By: Yuri Crenshaw on 02-18-2023 Platelet mean volume (Bld) [Entitic vol] 10.5 fL 6.2-12.0 [facility] Determination of erythrocyte mean corpuscular volume (MCV)Ordered By: Yuri Crenshaw on 02-18-2023 MCV (RBC) [Entitic vol] 87.8 fL 81-99 [facility] Gram stain for investigation of transfusion reactionOrdered By: Yuri Crenshaw on 02-18-2023 Microscopic observation Gram stain Nom (Unsp spec) [facility] Hematocrit Auto (Bld) [Volum e fraction]Ordered By: Yuri Crenshaw on 02-18-2023 Hematocrit (Bld) [Volume fraction] 29.5 % 37-47 [facility] Laboratory - Chemistry and C hemistry - challengeOrdered By: Yuri Crenshaw on 02-18-2023 ALP [Catalytic activity/Vol] 144 U/L 45-117 [facility] ALT [Catalytic activity/Vol] 11 U/L 13-56 [facility] CO2 [Moles/Vol] 20.0 mmol/L 21.0-32.0 [facility] Globulin (S) [Mass/Vol] 3.7 g/dL 2.2-4.2 [facility] Urea nitrogen/Creatinine [Mass ratio] 9.5 mg/mg 10-20 [facility] Laboratory - Hematology and Cell countsOrdered By: Yuri Crenshaw on 02-18-2023 Erythrocyte distribution width (RBC) [Entitic vol] 46.6 fL 35.1-43.9 [facility] Erythrocyte distribution width (RBC) [Ratio] 14.6 % 11.6-14.6 [facility] MCH (RBC) [Entitic mass] 28.3 pg 27.0-32.0 [facility] MCHC Auto (RBC) [Mass/Vol]Or dered By: Yuri Crenshaw on 02-18-2023 MCHC (RBC) [Mass/Vol] 32.2 g/dL 32-36 [facility] No Panel InformationOrdered By: Yuri Crenshaw on 02-18-2023 Estimated GFR (MDRD) Amer 172 mL/min >60 [facility] Comment on above: GFR Calc Estimated GFR (MDRD) Non-Af Amer 142 mL/min >60 [facility] Comment on above: Non- GFR Calc Fibrinogen 527 mg/dl 203-444 [facility] Miscellaneous Test See comment [facility] Comment on above: TEST RESULT LIMITSBi le [...] Range: All Ages: <9.2 TESTING PERFORMED AT [facility]. ORIGINAL REPORT ON FILE IN LAB CONTAINS ADDITIONAL TEST SITE INFORMATION. Vaginal Amniotic Fluid Detection Negative Negative [facility] Comment on above: Amniotic fluid not p resent indicates No Rupture of FetalMembranes at time of specimen collection. Platelets bldOrdered By: Alexis Crenshaw on 02-18-2023 Platelets (Bld) [#/Vol] 278 10*3/uL 150-450 [facility] Serum or plasma albumin edilia urement (mass/volume)Ordered By: Yuri Crenshaw on 02-18-2023 Albumin [Mass/Vol] 2.4 g/dL 3.2-5.0 [facility] Serum or plasma albumin/glob ulin mass ratioOrdered By: Yuri Crenshaw on 02-18-2023 Albumin/Globulin [Mass ratio] 0.6 {ratio} 0.9-2.4 [facility] Serum or plasma calcium edilia urement (mass/volume)Ordered By: Yuri Crenshaw on 02-18-2023 Calcium [Mass/Vol] 8.5 mg/dL 8.5-10.1 [facility] Serum or plasma creatinine m easurement (mass/volume)Ordered By: Yuri Crenshaw on 02-18-2023 Creatinine [Mass/Vol] 0.53 mg/dL 0.55-1.02 [facility] Comment on above: The validity of the calculated GFR & GFRAA in patients over 70 years has not been determined. Clinical correlation is essential. Serum or plasma urea nitroge n measurement (mass/volume)Ordered By: Yuri Crenshaw on 02-18-2023 Urea nitrogen [Mass/Vol] 5 mg/dL 7-18 [facility] Thin prep Papanicolaou smear with manual screeningOrdered By: Yuri Crenshaw on 02-18-2023 Thin prep Papanicolaou smear with manual screening Neisseria or beta-hemolytic Streptococcus isolated. [facility] Thin prep Papanicolaou smear with manual screening 11 U/L 15-37 [facility] Thin prep Papanicolaou smear with manual screening 9 5-15 [facility] Laboratory - Chemistry and C hemistry - challengeon 02-17-2023 Glucose Ql (U) Negative [facility] Laboratory - Urinalysison Protein Ql (U) Negative [facility] Neisseria gonorrhoeae genita l PCROrdered By: Laura Salinas on 02-17-2023 N. gonorrhoeae DNA MAYTE+probe Ql (Genital specimen) [facility] No Panel InformationOrdered By: Laura Salinas on 02-17-2023 Chlamydia trachomatis (PCR) [facility] Laboratory - Chemistry and C hemistry - challengeon 02-02-2023 Glucose Ql (U) Negative [facility] Laboratory - Urinalysison Protein Ql (U) Negative [facility] Absolute lymphocyte countOrd ered By: Love Castillo on 01-30-2023 Lymphocytes Auto (Unsp spec) [#/Vol] 1.57 10*3/uL 0.83-4.51 [facility] Basophil percentageOrdered B y: Love Castillo on 01-30-2023 Basophils/100 WBC (Bld) 0.2 % 0-1 [facility] Bilirubin [Mass/Vol] 1.10 mg/dL 0.20-1.00 [facility] Comment on above: For patients on eltr ombopag therapy, use of [place] TBIL is not recommended. Chloride [Moles/Vol] 107 mmol/L 98-107 [facility] Eosinophils/100 WBC (Bld) 0.8 % 0-5 [facility] Glucose [Mass/Vol] 102 mg/dL 74-106 [facility] Comment on above: Fasting Glucose resu lt from 100 to 125 mg/dL suggests IMPAIRED HOMEOSTASIS per A.D.A. criteria. Neutrophils (Bld) [#/Vol] 5.8 10*3/uL 2.0-7.7 [facility] Neutrophils/100 WBC (Bld) 69.8 % 47-70 [facility] Potassium [Moles/Vol] 3.1 mmol/L 3.5-5.1 [facility] Protein [Mass/Vol] 6.4 g/dL 6.4-8.2 [facility] Sodium [Moles/Vol] 138 mmol/L 136-145 [facility] WBC (Bld) [#/Vol] 8.4 10*3/uL 4.4-11.0 [facility] Blood erythrocytes count (nu mber/volume)Ordered By: Love Castillo on 01-30-2023 RBC (Bld) [#/Vol] 3.39 10*6/uL 4.2-5.4 [facility] Blood hemoglobin measurement (mass/volume)Ordered By: Love Castillo on 01-30-2023 Hemoglobin (Bld) [Mass/Vol] 10.1 g/dL 12.0-15.0 [facility] Blood lymphocytes/100 leukoc ytesOrdered By: Love Castillo on 01-30-2023 Lymphocytes/100 WBC (Bld) 18.8 % 19-41 [facility] Blood monocytes/100 leukocyt esOrdered By: Love Castillo on 01-30-2023 Monocytes/100 WBC (Bld) 9.4 % 0-10 [facility] Blood platelet mean volumeOr dered By: Love Castillo on 01-30-2023 Platelet mean volume (Bld) [Entitic vol] 9.8 fL 6.2-12.0 [facility] Determination of erythrocyte mean corpuscular volume (MCV)Ordered By: Love Castillo on 01-30-2023 MCV (RBC) [Entitic vol] 90.3 fL 81-99 [facility] Hematocrit Auto (Bld) [Volum e fraction]Ordered By: Love Castillo on 01-30-2023 Hematocrit (Bld) [Volume fraction] 30.6 % 37-47 [facility] Laboratory - Chemistry and C hemistry - challengeOrdered By: Love Castillo on 01-30-2023 ALP [Catalytic activity/Vol] 99 U/L 45-117 [facility] ALT [Catalytic activity/Vol] 22 U/L 13-56 [facility] CO2 [Moles/Vol] 24.0 mmol/L 21.0-32.0 [facility] Globulin (S) [Mass/Vol] 3.9 g/dL 2.2-4.2 [facility] Urea nitrogen/Creatinine [Mass ratio] 8.4 mg/mg 10-20 [facility] Laboratory - Hematology and Cell countsOrdered By: Love Castillo on 01-30-2023 Erythrocyte distribution width (RBC) [Entitic vol] 46.1 fL 35.1-43.9 [facility] Erythrocyte distribution width (RBC) [Ratio] 14.2 % 11.6-14.6 [facility] Immature granulocytes/100 WBC (Bld) 1.000 % 0.0-0.9 [facility] Comment on above: IG% - Immature Granu locytes (promyelocytes, myelocytes and metamyelocytes) > 1% indicates that a LEFT SHIFT is Present. MCH (RBC) [Entitic mass] 29.8 pg 27.0-32.0 [facility] Nucleated RBC/100 WBC (Bld) [Ratio] 0 % 0-5 [facility] MCHC Auto (RBC) [Mass/Vol]Or dered By: Love Castillo on 01-30-2023 MCHC (RBC) [Mass/Vol] 33.0 g/dL 32-36 [facility] No Panel InformationOrdered By: Love Castillo on 01-30-2023 Estimated GFR (MDRD) Amer 151 mL/min >60 [facility] Comment on above: GFR Calc Estimated GFR (MDRD) Non-Af Amer 124 mL/min >60 [facility] Comment on above: Non- GFR Calc Miscellaneous Test See comment [facility] Comment on above: TEST RESULTS LIMITSB ile Acids, Fractionated LCMSUrsodeoxycholic Acids 0.10 umol/LReference Range:All Ages: <1.9Cholic Acids 0.20 umol/LReference Range:All Ages: <2.2Chenodeoxycholic Acids 0.90 umol/LReference Range:All Ages: <5.8Deoxycholic Acids 0.50 umol/LReference Range:All Ages: <3.3Total Bile Acids 1.7 umol/LThis test was developed and its performance characteristicsdetermined by [facility]. It has not been cleared or approvedby the Food and Drug Administration.Reference Range:All Ages: <9.2 TESTING PERFORMED AT [facility]. ORIGINAL REPORT ON FILE IN LAB CONTAINS ADDITIONAL TEST SITE INFORMATION. No Panel InformationOrdered By: Yuri Crenshaw on 01-30-2023 Hepatitis C Antibody Non-Reactive Nonreactive [facility] Comment on above: Non Reactive: < 0.8 Equivocal: >/= 0.8 to < 1.0 Reactive: >/= 1.0The CDC recommends that a reactive/equivocal HCV antibody result be followed up by the HCV Nucleic Acid Amplificationtest (434543) Platelets bldOrdered By: Doug malathi Anna on 01-30-2023 Platelets (Bld) [#/Vol] 271 10*3/uL 150-450 [facility] Serum hepatitis B virus [place] antibody IgG detectionOrdered By: Yuri Crenshaw on 01-30-2023 HBV surface IgG Ql (S) Non-Reactive [facility] Comment on above: Non Reactive: Incons istent with immunity less than <10 mIU/mL Reactive: Consistent with immunity greater than or equal to 10 mIU/mL Serum or plasma albumin edilia urement (mass/volume)Ordered By: Love Castillo on 01-30-2023 Albumin [Mass/Vol] 2.5 g/dL 3.2-5.0 [facility] Serum or plasma albumin/glob ulin mass ratioOrdered By: Love Castillo on 01-30-2023 Albumin/Globulin [Mass ratio] 0.6 {ratio} 0.9-2.4 [facility] Serum or plasma calcium edilia urement (mass/volume)Ordered By: Love Castillo on 01-30-2023 Calcium [Mass/Vol] 8.6 mg/dL 8.5-10.1 [facility] Serum or plasma creatinine m easurement (mass/volume)Ordered By: Love Castillo on 01-30-2023 Creatinine [Mass/Vol] 0.59 mg/dL 0.55-1.02 [facility] Comment on above: The validity of the calculated GFR & GFRAA in patients over 70 years has not been determined. Clinical correlation is essential. Serum or plasma urea nitroge n measurement (mass/volume)Ordered By: Love Castillo on 01-30-2023 Urea nitrogen [Mass/Vol] 5 mg/dL 7-18 [facility] Thin prep Papanicolaou smear with manual screeningOrdered By: Love Castillo on 01-30-2023 Thin prep Papanicolaou smear with manual screening 17 U/L 15-37 [facility] Thin prep Papanicolaou smear with manual screening 7 5-15 [facility] Absolute lymphocyte countOrd ered By: ED PROVIDER on 01-23-2023 Lymphocytes Auto (Unsp spec) [#/Vol] 2.06 10*3/uL 0.83-4.51 [facility] Basophil percentageOrdered B y: ED PROVIDER on 01-23-2023 Basophils/100 WBC (Bld) 0.4 % 0-1 [facility] Chloride [Moles/Vol] 105 mmol/L 98-107 [facility] Eosinophils/100 WBC (Bld) 0.9 % 0-5 [facility] Glucose [Mass/Vol] 99 mg/dL 74-106 [facility] Neutrophils (Bld) [#/Vol] 8.5 10*3/uL 2.0-7.7 [facility] Neutrophils/100 WBC (Bld) 72.6 % 47-70 [facility] Potassium [Moles/Vol] 3.3 mmol/L 3.5-5.1 [facility] Sodium [Moles/Vol] 134 mmol/L 136-145 [facility] WBC (Bld) [#/Vol] 11.7 10*3/uL 4.4-11.0 [facility] Blood erythrocytes count (nu mber/volume)Ordered By: ED PROVIDER on 01-23-2023 RBC (Bld) [#/Vol] 3.71 10*6/uL 4.2-5.4 [facility] Blood hemoglobin measurement (mass/volume)Ordered By: ED PROVIDER on 01-23-2023 Hemoglobin (Bld) [Mass/Vol] 10.9 g/dL 12.0-15.0 [facility] Blood lymphocytes/100 leukoc ytesOrdered By: ED PROVIDER on 01-23-2023 Lymphocytes/100 WBC (Bld) 17.5 % 19-41 [facility] Blood monocytes/100 leukocyt esOrdered By: ED PROVIDER on 01-23-2023 Monocytes/100 WBC (Bld) 6.9 % 0-10 [facility] Blood platelet mean volumeOr dered By: ED PROVIDER on 01-23-2023 Platelet mean volume (Bld) [Entitic vol] 9.7 fL 6.2-12.0 [facility] Determination of erythrocyte mean corpuscular volume (MCV)Ordered By: ED PROVIDER on 01-23-2023 MCV (RBC) [Entitic vol] 89.2 fL 81-99 [facility] Hematocrit Auto (Bld) [Volum e fraction]Ordered By: ED PROVIDER on 01-23-2023 Hematocrit (Bld) [Volume fraction] 33.1 % 37-47 [facility] Laboratory - Chemistry and C hemistry - challengeOrdered By: ED PROVIDER on 01-23-2023 CO2 [Moles/Vol] 18.0 mmol/L 21.0-32.0 [facility] Urea nitrogen/Creatinine [Mass ratio] 14.1 mg/mg 10-20 [facility] Laboratory - Hematology and Cell countsOrdered By: ED PROVIDER on 01-23-2023 Erythrocyte distribution width (RBC) [Entitic vol] 44.8 fL 35.1-43.9 [facility] Erythrocyte distribution width (RBC) [Ratio] 13.9 % 11.6-14.6 [facility] Immature granulocytes/100 WBC (Bld) 1.700 % 0.0-0.9 [facility] Comment on above: IG% - Immature Granu locytes (promyelocytes, myelocytes and metamyelocytes) > 1% indicates that a LEFT SHIFT is Present. MCH (RBC) [Entitic mass] 29.4 pg 27.0-32.0 [facility] Nucleated RBC/100 WBC (Bld) [Ratio] 0 % 0-5 [facility] MCHC Auto (RBC) [Mass/Vol]Or dered By: ED PROVIDER on 01-23-2023 MCHC (RBC) [Mass/Vol] 32.9 g/dL 32-36 [facility] No Panel InformationOrdered By: ED PROVIDER on 01-23-2023 Estimated Creatinine Clearance Calc 151.22 ml/min [facility] Estimated GFR (MDRD) Amer 184 mL/min >60 [facility] Comment on above: GFR Calc Estimated GFR (MDRD) Non-Af Amer 152 mL/min >60 [facility] Comment on above: Non- GFR Calc Troponin I High Sensitivity 6 pg/mL 3.0-54.0 [facility] Comment on above: Please Note: New Theo t Units and Gender Specific Reference Ranges. For more information see Policy Stat Procedure [place] High Sensitivity Troponin (TNIH) and attachments. Platelets bldOrdered By: ED PROVIDER on 01-23-2023 Platelets (Bld) [#/Vol] 310 10*3/uL 150-450 [facility] Serum or plasma calcium edilia urement (mass/volume)Ordered By: ED PROVIDER on 01-23-2023 Calcium [Mass/Vol] 9.4 mg/dL 8.5-10.1 [facility] Serum or plasma creatinine m easurement (mass/volume)Ordered By: ED PROVIDER on 01-23-2023 Creatinine [Mass/Vol] 0.50 mg/dL 0.55-1.02 [facility] Comment on above: The validity of the calculated GFR & GFRAA in patients over 70 years has not been determined. Clinical correlation is essential. Serum or plasma urea nitroge n measurement (mass/volume)Ordered By: ED PROVIDER on 01-23-2023 Urea nitrogen [Mass/Vol] 7 mg/dL 7-18 [facility] Thin prep Papanicolaou smear with manual screeningOrdered By: ED PROVIDER on 01-23-2023 Thin prep Papanicolaou smear with manual screening 11 5-15 [facility] Basophil percentageOrdered B y: Yuri Crenshaw on 01-16-2023 WBC (Bld) [#/Vol] 9.8 10*3/uL 4.4-11.0 [facility] Blood erythrocytes count (nu mber/volume)Ordered By: Yuri Crenshaw on 01-16-2023 RBC (Bld) [#/Vol] 3.16 10*6/uL 4.2-5.4 [facility] Blood hemoglobin measurement (mass/volume)Ordered By: Yuri Crenshaw on 01-16-2023 Hemoglobin (Bld) [Mass/Vol] 9.5 g/dL 12.0-15.0 [facility] Blood platelet mean volumeOr dered By: Yuri Crenshaw on 01-16-2023 Platelet mean volume (Bld) [Entitic vol] 9.9 fL 6.2-12.0 [facility] Chlamydia trachomatis rRNA d etection by probe and target amplification methodOrdered By: Jeanette Roach on 01-16-2023 C. trachomatis rRNA MAYTE+probe Ql (Unsp spec) Positive Negative [facility] Determination of erythrocyte mean corpuscular volume (MCV)Ordered By: Yuri Crenshaw on 01-16-2023 MCV (RBC) [Entitic vol] 92.1 fL 81-99 [facility] Hematocrit Auto (Bld) [Volum e fraction]Ordered By: Yuri Crenshaw on 01-16-2023 Hematocrit (Bld) [Volume fraction] 29.1 % 37-47 [facility] Laboratory - Chemistry and C hemistry - challengeon 01-16-2023 Bilirubin Ql (U) Negative [facility] Glucose Ql (U) Negative [facility] Ketones Ql (U) Small (15+) [facility] Specific gravity (U) [Rel density] 1.010 [facility] Urobilinogen (U) [Mass/Vol] Negative [facility] Laboratory - Hematology and Cell countsOrdered By: Yuri Crenshaw on 01-16-2023 Erythrocyte distribution width (RBC) [Entitic vol] 45.9 fL 35.1-43.9 [facility] Erythrocyte distribution width (RBC) [Ratio] 13.5 % 11.6-14.6 [facility] MCH (RBC) [Entitic mass] 30.1 pg 27.0-32.0 [facility] Laboratory - Hematology and Cell countson 01-16-2023 Hemoglobin Ql (U) Negative [facility] Laboratory - Microbiology an d Antimicrobial susceptibilityOrdered By: Jeanette Roach on 01-16-2023 N. gonorrhoeae DNA MAYTE+probe Ql (Unsp spec) Negative Negative [facility] Comment on above: Performed at: =[facility] [address] [id number] Director: Rita Vallecillo MD, Phone: [phone] Laboratory - Specimen inform ationon 01-16-2023 Clarity (U) Clear [facility] Color (U) RED [facility] Laboratory - Urinalysison Nitrite Ql (U) Negative [facility] Protein Ql (U) Negative [facility] MCHC Auto (RBC) [Mass/Vol]Or dered By: Yuri Ten on 01-16-2023 MCHC (RBC) [Mass/Vol] 32.6 g/dL 32-36 [facility] No Panel InformationOrdered By: Jeanette Roach on 01-16-2023 Vaginal Amniotic Fluid Detection Negative Negative [facility] Comment on above: Amniotic fluid not p resent indicates No Rupture of FetalMembranes at time of specimen collection. No Panel Informationon 01-16 POC Bacterial Vaginitis (Rapid) Negative [facility] POC Trichomonas (Rapid) Negative [facility] Urine Leukocytes Positive [facility] Urine Non-Hemolyzed Blood [facility] Platelets bldOrdered By: Alexis Crenshaw on 01-16-2023 Platelets (Bld) [#/Vol] 256 10*3/uL 150-450 [facility] Absolute lymphocyte countOrd ered By: Melissa Saxena on 12-21-2022 Lymphocytes Auto (Unsp spec) [#/Vol] 1.45 10*3/uL 0.83-4.51 [facility] Basophil percentageOrdered B y: Melissa Saxena on 12-21-2022 Basophils/100 WBC (Bld) 0.4 % 0-1 [facility] Bilirubin [Mass/Vol] 0.60 mg/dL 0.20-1.00 [facility] Comment on above: For patients on eltr ombopag therapy, use of Dimension [place] TBIL is not recommended. Chloride [Moles/Vol] 106 mmol/L 98-107 [facility] Eosinophils/100 WBC (Bld) 2.5 % 0-5 [facility] Glucose [Mass/Vol] 139 mg/dL 74-106 [facility] Comment on above: Fasting Glucose resu lt greater than or equal to 126 mg/dL suggests DIABETES MELLITUS per A.D.A. criteria. Neutrophils (Bld) [#/Vol] 6.8 10*3/uL 2.0-7.7 [facility] Neutrophils/100 WBC (Bld) 73.4 % 47-70 [facility] Potassium [Moles/Vol] 3.6 mmol/L 3.5-5.1 [facility] Protein [Mass/Vol] 6.6 g/dL 6.4-8.2 [facility] Sodium [Moles/Vol] 137 mmol/L 136-145 [facility] WBC (Bld) [#/Vol] 9.3 10*3/uL 4.4-11.0 [facility] Blood erythrocytes count (nu mber/volume)Ordered By: Melissa Saxena on 12-21-2022 RBC (Bld) [#/Vol] 3.61 10*6/uL 4.2-5.4 [facility] Blood hemoglobin measurement (mass/volume)Ordered By: Melissa Saxena on 12-21-2022 Hemoglobin (Bld) [Mass/Vol] 11.0 g/dL 12.0-15.0 [facility] Blood lymphocytes/100 leukoc ytesOrdered By: Melissa Saxena on 12-21-2022 Lymphocytes/100 WBC (Bld) 15.7 % 19-41 [facility] Blood monocytes/100 leukocyt esOrdered By: Melissa Saxena on 12-21-2022 Monocytes/100 WBC (Bld) 6.9 % 0-10 [facility] Blood platelet mean volumeOr dered By: Melissa Saxena on 12-21-2022 Platelet mean volume (Bld) [Entitic vol] 9.7 fL 6.2-12.0 [facility] Determination of erythrocyte mean corpuscular volume (MCV)Ordered By: Melissa Saxena on 12-21-2022 MCV (RBC) [Entitic vol] 93.9 fL 81-99 [facility] Gestational diabetes screen 1-hour screen with 50g oral glucose loadOrdered By: Melissa Saxena on 12-21-2022 Glucose 1 Hr post 50 g glucose PO [Mass/Vol] 139 mg/dL 70-140 [facility] HIV 1 and HIV-2 antibody ass ay with HIV-1 p24 antigen detectionOrdered By: Melissa Saxena on 12-21-2022 HIV 1+2 Ab+HIV1 p24 Ag IA Ql Non-Reactive Nonreactive [facility] Hematocrit Auto (Bld) [Volum e fraction]Ordered By: Melissa Saxena on 12-21-2022 Hematocrit (Bld) [Volume fraction] 33.9 % 37-47 [facility] Laboratory - Chemistry and C hemistry - challengeOrdered By: Melissa Saxena on 12-21-2022 ALP [Catalytic activity/Vol] 79 U/L 45-117 [facility] ALT [Catalytic activity/Vol] 10 U/L 13-56 [facility] CO2 [Moles/Vol] 21.0 mmol/L 21.0-32.0 [facility] Globulin (S) [Mass/Vol] 4.1 g/dL 2.2-4.2 [facility] Urea nitrogen/Creatinine [Mass ratio] 7.8 mg/mg 10-20 [facility] Laboratory - Chemistry and C hemistry - challengeon 12-21-2022 Glucose Ql (U) Negative [facility] Laboratory - Hematology and Cell countsOrdered By: Melissa Saxena on 12-21-2022 Erythrocyte distribution width (RBC) [Entitic vol] 45.7 fL 35.1-43.9 [facility] Erythrocyte distribution width (RBC) [Ratio] 13.3 % 11.6-14.6 [facility] Immature granulocytes/100 WBC (Bld) 1.100 % 0.0-0.9 [facility] Comment on above: IG% - Immature Granu locytes (promyelocytes, myelocytes and metamyelocytes) > 1% indicates that a LEFT SHIFT is Present. MCH (RBC) [Entitic mass] 30.5 pg 27.0-32.0 [facility] Nucleated RBC/100 WBC (Bld) [Ratio] 0 % 0-5 [facility] Laboratory - Urinalysison Protein Ql (U) Negative [facility] MCHC Auto (RBC) [Mass/Vol]Or dered By: Melissa Saxena on 12-21-2022 MCHC (RBC) [Mass/Vol] 32.4 g/dL 32-36 [facility] No Panel InformationOrdered By: Melissa Saxena on 12-21-2022 Estimated GFR (MDRD) Amer 137 mL/min >60 [facility] Comment on above: GFR Calc Estimated GFR (MDRD) Non-Af Amer 113 mL/min >60 [facility] Comment on above: Non- GFR Calc Hepatitis B Surface Antigen Non-Reactive Nonreactive [facility] Hepatitis C Antibody Non-Reactive Nonreactive [facility] Comment on above: Non Reactive: < 0.8 Equivocal: >/= 0.8 to < 1.0 Reactive: >/= 1.0The CDC recommends that a reactive/equivocal HCV antibody result be followed up by the HCV Nucleic Acid Amplificationtest (044920) Rubella IgG Antibody Reactive Nonreactive [facility] Comment on above: Antibody Results Int erpretation of Immune Status Non Reactive Presumed Non-Immune Equivocal Equivocal Reactive Presumed Immune Platelets bldOrdered By: Ivanna Saxena on 12-21-2022 Platelets (Bld) [#/Vol] 280 10*3/uL 150-450 [facility] Serum Treponema species anti body detectionOrdered By: Melissa Saxena on 12-21-2022 Treponema sp Ab Ql (S) Non-Reactive [facility] Serum or plasma albumin edilia urement (mass/volume)Ordered By: Melissa Saxena on 12-21-2022 Albumin [Mass/Vol] 2.5 g/dL 3.2-5.0 [facility] Serum or plasma albumin/glob ulin mass ratioOrdered By: Melissa Saxena on 12-21-2022 Albumin/Globulin [Mass ratio] 0.6 {ratio} 0.9-2.4 [facility] Serum or plasma calcium edilia urement (mass/volume)Ordered By: Melissa Saxena on 12-21-2022 Calcium [Mass/Vol] 8.6 mg/dL 8.5-10.1 [facility] Serum or plasma creatinine m easurement (mass/volume)Ordered By: Melissa Saxena on 12-21-2022 Creatinine [Mass/Vol] 0.64 mg/dL 0.55-1.02 [facility] Comment on above: The validity of the calculated GFR & GFRAA in patients over 70 years has not been determined. Clinical correlation is essential. Serum or plasma urea nitroge n measurement (mass/volume)Ordered By: Melissa Saxena on 12-21-2022 Urea nitrogen [Mass/Vol] 5 mg/dL 7-18 [facility] Thin prep Papanicolaou smear with manual screeningOrdered By: Melissa Saxena on 12-21-2022 Thin prep Papanicolaou smear with manual screening 8 U/L 15-37 [facility] Thin prep Papanicolaou smear with manual screening 10 5-15 [facility] Urine creatinine measurement (mass/volume)Ordered By: Melissa Saxena on 12-21-2022 Creatinine (U) [Mass/Vol] 122.00 mg/dL NO RANGE EST. [facility] Urine protein measurement (m ass/volume)Ordered By: Melissa Saxena on 12-21-2022 Protein (U) [Mass/Vol] 23.1 mg/dL 0.0-11.8 [facility] Urine protein/creatinine mas s ratioOrdered By: Melissa Saxena on 12-21-2022 Protein/Creatinine (U) [Mass ratio] 189 mg/g CRE 0-200 [facility] PT Progress Noteon 3 PT Progress Note No report was sent Normal [facility] Therapy Communicationon 06- Therapy Communication Message QUE DIX no showed today 11/29/22. Pt NCNS to recheck again. Signatures Electronically signed by : Sylvia Calle PT; Nov 29 2022 9:53AM EST (Author) [facility] - Chemistry and C hemistry - challengeon 11-25-2022 Glucose Ql (U) Negative [facility] Laboratory - Urinalysison Protein Ql (U) Negative [facility] PT Progress Noteon 3 PT Progress Note No report was sent Normal [facility] Therapy Communicationon 11-03 Therapy Communication Message QUE HER canceled today 11/17/22. Pt cancel recheck today. If she does not return within 30 days she will be d/c from skilled PT per attendance policy. Signatures Electronically signed by : Sylvia Calle PT; Nov 17 2022 10:28AM EST (Author) Normal [facility] Blood type and Indirect anti body screen panel (Bld)on 11-11-2022 ABO group Nom (Bld) A [facility] Rh Nom (Bld) Negative [facility] Comment on above: Review your Rh Negat jesus female patient's potential need for Rh Immune Globulin (RhIg)administration. [facility] CBCon 11-11-2022 Erythrocyte distribution width (RBC) [Ratio] 14.2 % Normal 11.5 - 14.5 [facility] Comment on above: Performed By: #### C BC #### [address] [address] Hematocrit (Bld) [Volume fraction] 33.5 % Low 36.0 - 46.0 [facility] Comment on above: Performed By: #### C BC #### [address] [address] Hemoglobin (Bld) [Mass/Vol] 11.4 g/dL Low 12.0 - 16.0 [facility] Comment on above: Performed By: #### C BC #### [address] [address] MCHC (RBC) [Mass/Vol] 34.0 g/dL Normal 32.0 - 36.0 [facility] Comment on above: Performed By: #### C BC #### [address] [address] MCV (RBC) [Entitic vol] 93 fL Normal 80 - 100 [facility] Comment on above: Performed By: #### C BC #### [address] [address] Platelets (Bld) [#/Vol] 271 10*3/uL Normal 150 - 450 [facility] Comment on above: Performed By: #### C BC #### [address] [address] RBC 3.62 x10E12/L Low 4.00 - 5.20 [facility] Comment on above: Performed By: #### C BC #### [address] [address] WBC (Bld) [#/Vol] 10.5 10*3/uL Normal 4.4 - 11.3 [facility] Comment on above: Performed By: #### C BC #### [address] [address] CBC panel Auto (Bld)on 11-11 Erythrocyte distribution width (RBC) [Ratio] 14.2 % 11.5 - 14.5 % [facility] Hematocrit (Bld) [Volume fraction] 33.5 % Low 36.0 - 46.0 % [facility] Hemoglobin (Bld) [Mass/Vol] 11.4 g/dL Low 12.0 - 16.0 g/dL [facility] Interpretation and review of laboratory results Abnormal [facility] MCHC (RBC) [Mass/Vol] 34.0 g/dL 32.0 - 36.0 g/dL [facility] MCV (RBC) [Entitic vol] 93 fL 80 - 100 fL [facility] Platelets (Bld) [#/Vol] 271 10*3/uL [facility] RBC (Bld) [#/Vol] 3.62 10*6/uL Low [facility] WBC (Bld) [#/Vol] 10.5 10*3/uL [facility] Daily Progress Note - OB-Tri ageon 11-11-2022 Daily Progress Note - OB-Triage Current Stage: Stage: Triage OB Dating: EDC/EGA Final [id number] EGA21.1 Subjective Data: Antepartum Vaginal Bleeding: Yes Movement: Good Antepartum: Patient presents stating that she has had intermittent vaginal bleeding over the last day. Patient states that the bleeding was minimal and she then had intercourse earlier last night. Patient obtains her care in [place]. Objective Information Objective Information: T PRBPMAPSpO2 [id number]% Date/Time11/11 3: 0:256 3: 3: 3:48 Range (78 - 115 [...] related to recent intercourse. 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 Electronic Signatures for Addendum Section: Andry Rudea) (Signed Addendum 11-Nov-2022 08:36) Patient given recommendation to avoid intercourse for the time being. Electronic Signatures: Andry Rueda) (Signed 11-Nov-2022 07:48) Authored: Current Stage, OB Dating, Subjective Data, Objective Data, Assessment and Plan, Note Completion Last Updated: 11-Nov-2022 08:36 by Andry Rueda) [facility] - Blood bankon ABO group Nom (Bld) A [facility] Work Phone: Blood group antibody screen Ql Negative [facility] [email or web address] Work Phone: Rh immune globulin screen (Bld) [Interp] Negative [facility] SpotOnben Rogers Work Phone: Comment on above: Review your Rh Negat jesus female patient's potential need for Rh Immune Globulin (RhIg)administration. Laboratory - Hematology and Cell countson 11-11-2022 Erythrocyte distribution width (RBC) [Ratio] 14.2 % See Below [facility] desiben Rogers Work Phone: Comment on above: Reference Range: 11. 5 - 14.5 Hematocrit (Bld) [Volume fraction] 33.5 % below low threshold See Below [facility] SpotOnben Chappell Work Phone: Comment on above: Reference Range: 36. 0 - 46.0 Hemoglobin (Bld) [Mass/Vol] 11.4 g/dL below low threshold See Below [facility] Work Phone: Comment on above: Reference Range: 12. 0 - 16.0 MCHC (RBC) [Mass/Vol] 34.0 g/dL See Below [facility] Work Phone: Comment on above: Reference Range: 32. 0 - 36.0 MCV (RBC) [Entitic vol] 93 fL 80 - 100 [facility] Work Phone: Platelets (Bld) [#/Vol] 271 10*3/uL 150 - 450 [facility] Work Phone: RBC (Bld) [#/Vol] 3.62 {x10E12/L} below low threshold See Below [facility] Work Phone: Comment on above: Reference Range: 4.0 0 - 5.20 WBC (Bld) [#/Vol] 10.5 10*3/uL 4.4 - 11.3 [facility] Work Phone: No Panel Informationon 11-11 Normal [facility] Work Phone: TYPE + SCREENon 11-11-2022 ABO TYPE A [facility] Comment on above: Performed By: #### T +S #### [place] [address] RH TYPE Negative Normal [facility] Comment on above: Result Comment: Revi ew your Rh Negative female patient's potential need for Rh Immune Globulin (RhIg)administration. Performed By: #### T +S #### [address] [address] Triage Note - OB v4on 2022 Triage Note - OB v4 Triage: General Info: Time of Arrival on [id number] 00:07 [facility] Ac[facility] Level2 Time Acuity Level [id number] 00:15 Chief Complaintvaginal bleeding Spoken Language PreferredEnglish Source of Informationpatient Weight in kg78 kilogram(s) Weight in afq674.9 pound(s) Weight Methodactual (measured) Scale Typestanding Height in feet5 feet Height in inches5.94 inch(es) Height in cm167.4 centimeter(s) Height Methodstated BMI (kg/m2)27.834 square meter Blood Avoidance/Restrictionsn one Previous Transfusion Reactionnot applicable Patient Belongingsremains with patient Patient Belongings Remaining with Patientcell phone/electronics; clothing Home Meds have been Reviewed and Verified with Patient/Familyyes Info: Gravida6 Term Deliveries5 Deliveries0 Abortions0 Living Children5 Patient stated [id number] Calculation of EGA based on patient stated EDD21.1 Records availableno Trimester Care Initiatedfirst Care ProviderBlcarlos Vogel Current RisksRh negative, seizure disorder, previous [...] for Home Blood Pressure Monitorno Admission/Observation/D ischarge/Transfer Date/Lspi29-Roq-9103 03:53 Discharge Modeambulatory Transportation Methodprivate car Travel History: Travel or ExposureNO travel to International locations in the past 30 days Additional Information: Information Review: Allergies have been Reviewed and Verified with Patient/Familyyes Allergy, Intolerance, Adverse Event: Allergies: No Known Allergies: Active Intolerances: Flagyl: Drug, Nausea/Vomiting, Active Electronic Signatures: Eleuterio Boone) (Signed 11-Nov-2022 00:34) Authored: General Info, Info, Substance, Travel History, Additional Information Mame Hughes (RN) (Signed 11-Nov-2022 03:58) Authored: Disposition/Disch, Additional Information Last Updated: 11-Nov-2022 03:58 by Mame Hughes (RN) [facility] PLACENT LOCon 11-11-2022 US PLACENT LOC Patient Name: QUE HER STUDY: US PLACENT LOC 11/11/2022 2:16 am INDICATION: 32 y/o F with vaginal bleeding . COMPARISON: 09/10/2022 ACCESSION NUMBER(S): [id number] ORDERING CLINICIAN: ANDRY RUEDA TECHNIQUE: Transabdominal sonographic [...] recommended. Electronically signed by: SOUTH NAJERA MD [facility] for pregnancyon 3 Single live intrauterine with ultrasound average gestational age of 21 week and 4 days. Placenta is fundal in location without evidence of placenta previa. Please note the examination was performed for assessment of viability and anatomy is not assessed; correlation with outpatient full anatomic survey is recommended. [facility] Interpreted By: SOUTH NAJERA MD Patient Name: QUE HER STUDY: US PLACENT LOC 11/11/2022 2:16 am INDICATION: 32 y/o F with vaginal bleeding . COMPARISON: 09/10/2022 ACCESSION NUMBER(S): [id number] ORDERING CLINICIAN: ANDRY RUEDA TECHNIQUE: Transabdominal sonographic [...] 21 week and 4 days gestational age. [facility] [place] MD - 11/11/2022 Interpreted By: SOUTH NAJERA MD Patient Name: QUE HER STUDY: US PLACENT LOC 11/11/2022 2:16 am INDICATION: 32 y/o F with vaginal bleeding . COMPARISON: 09/10/2022 ACCESSION NUMBER(S): [id number] ORDERING CLINICIAN: ANDRY RUEDA TECHNIQUE: Transabdominal sonographic [...] with outpatient full anatomic survey is recommended. [facility] Work Phone: Radiology Study observation (narrative) [facility] Work Phone: US for pregnancyOrdered By: South Najera on 11-11-2022 [facility] Work Phone: PT Progress Noteon 3 [...] little interest or pleasure in doing things. [place]arbrough Learner(s) are identified by the patient as person(s) most likely to participate in providing care, such as managing medications or taking them to doctors? appointments. Primary Language for learning: romanian. Insurance Insurance reviewed Visit number: 08/10 Authorization required after evaluation Insurance: [facility] Evaluating therapist: Sharon Baldwin PT, DPT [...] code time is 38 minutes. Therapeutic exercise (29990): timed minutes 13, units 1 . 3x20 second each UT 3x20 second each levator scap Thoracic Extension 3 x 5 holds N Chin Tuck 10 x 3 holds N Scap Retraction 10 x 3 holds N Pec Stretch . Manual Therapy (94093): timed minutes 25, units 2 . PROM cervical 5' Gentle STW cervical paraspinals, UTs, LS, Pecs 10' Gentle traction 2'. Aquatic Therapy (72220):. Below not performed; deferred at this time [...] little interest or pleasure in doing things. [place] Learner(s) are identified by the patient as person(s) most likely to participate in providing care, such as managing medications or taking them to doctors? appointments. Primary Language for learning: romanian. Insurance Insurance reviewed Visit number: 2 07/13 Authorization required after evaluation [facility] Evaluating therapist: Sharon Baldwin, PT, DPT PT [...] code time is 43 minutes. Aquatic Therapy (23779): timed minutes 43, units 3 . All [...] Gradual exi (more content not included)... Normal [facility] - Chemistry and C hemistry - challengeon 10-28-2022 Glucose Ql (U) Negative [facility] Laboratory - Urinalysison Protein Ql (U) Negative [facility] PT Progress Noteon PT Progress Note No report was sent Normal [facility] Communicationon 10-04 Therapy Communication Message QUE [...] and agreement by the patient. Assessment Que Her, a 32 year old female, arrives to [...] you for this referral and please call [phone] with any questions or concerns. Clinical Presentation: [...] little interest or pleasure in doing things. Yarbrough Learner(s) are identified by the patient as person(s) most lik (more content not included)... Normal [facility] Thin prep Papanicolaou smear with manual screeningOrdered By: Dr. Saxena on 09-30-2022 Thin prep Papanicolaou smear with manual screening Normal genital kenny isolated [facility] Gram stain for investigation of transfusion reactionOrdered By: Dr. Saxena on 09-29-2022 Microscopic observation Gram stain Nom (Unsp spec) [facility] Gram stain for investigation of transfusion reactionOrdered By: Melissa Saxena on 09-28-2022 Microscopic observation Gram stain Nom (Unsp spec) [facility] Laboratory - Chemistry and C hemistry - challengeon 09-28-2022 Glucose Ql (U) Negative [facility] Laboratory - Urinalysison Protein Ql (U) Negative [facility] Thin prep Papanicolaou smear with manual screeningOrdered By: Melissa Saxena on 09-28-2022 Thin prep Papanicolaou smear with manual screening Normal genital kenny isolated [facility] Provider Note - ED v3on 0 Provider [...] up with Dr. Yuri Fermin out of [place]. 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 Sensation and motor function of extremities grossly intact. Psych: Appropriate mood and affect. I have reviewed and confirmed nurses/medics notes for patient past, social and family history. Portions of this note were dictated by speech recognition. An attempt at proof reading was made to minimize errors. Minor errors in business process consultant may be present. HISTORY OF PRESENTING ILLNESS [...] it with no difficulty. Patient did the [id number] test again with no difficulty showing no [...] is unreason (more content not included)... Normal [facility] ABO/RH GROUP TESTon 09-11-19 23 ABO TYPE A Normal [facility] Comment on above: Performed By: #### A BAY #### [place] [address] RH TYPE Negative Normal [facility] Comment on above: Result Comment: Revi ew your Rh Negative female patient's potential need for Rh Immune Globulin (RhIg)administration. Performed By: #### A BAY #### [address] [address] BASIC METABOLIC PANELon 04- Anion gap [Moles/Vol] 10 mmol/L Normal [facility] Comment on above: Performed By: #### B MP #### [address] [address] Calcium [Mass/Vol] 8.7 mg/dL Normal 8.6 - 10.3 [facility] Comment on above: Performed By: #### B MP #### [address] [address] Chloride [Moles/Vol] 103 mmol/L Normal 98 - 107 [facility] Comment on above: Performed By: #### B MP #### [address] [address] Creatinine [Mass/Vol] 0.56 mg/dL Normal 0.50 - 1.05 [facility] Comment on above: Performed By: #### B MP #### [address] [address] eGFR FEMALE >90 Normal >90 [facility] Comment on above: Result Comment: CALC ULATIONS OF ESTIMATED GFR ARE PERFORMED USING THE 2020 CKD-EPI STUDY REFIT EQUATION WITHOUT THE RACE VARIABLE FOR THE IDMS-TRACEABLE CREATININE METHODS. https://jasn.asnjournals.org/content///ASN.77599 11401 Performed By: #### B MP #### [address] [address] Glucose [Mass/Vol] 84 mg/dL Normal 74 - 99 [facility] Comment on above: Performed By: #### B MP #### [address] [address] HCO3 (Bld) [Moles/Vol] 24 mmol/L Normal 21 - 32 [facility] Comment on above: Performed By: #### B MP #### [address] [address] Potassium [Moles/Vol] 3.8 mmol/L Normal 3.5 - 5.3 [facility] Comment on above: Performed By: #### B MP #### [address] [address] Sodium [Moles/Vol] 133 mmol/L Low 136 - 145 [facility] Comment on above: Performed By: #### B MP #### [address] [address] Urea nitrogen [Mass/Vol] 10 mg/dL Normal 6 - 23 [facility] Comment on above: Performed By: #### B MP #### [address] [address] CBC AND DIFFERENTIALon 09-10 % AUTOMATED IMMATURE GRAN 1.8 % High 0.0 - 0.9 [facility] Comment on above: Result Comment: Yuliya ture Granulocyte Count (IG) includes promyelocytes, myelocytes and metamyelocytes but does not include bands. Percent differential counts (%) should be interpreted in the context of the absolute cell counts (cells/L). Performed By: #### C BCDF #### [address] [address] Basophils (Bld) [#/Vol] 0.03 10*3/uL Normal 0.00 - 0.10 [facility] Comment on above: Performed By: #### C BCDF #### [address] [address] Basophils/100 WBC (Bld) 0.3 % Normal 0.0 - 2.0 [facility] Comment on above: Performed By: #### C BCDF #### [address] [address] Eosinophils (Bld) [#/Vol] 0.31 10*3/uL Normal 0.00 - 0.70 [facility] Comment on above: Performed By: #### C BCDF #### [address] [address] Eosinophils/100 WBC (Bld) 3.4 % Normal 0.0 - 6.0 [facility] Comment on above: Performed By: #### C BCDF #### [address] [address] Erythrocyte distribution width (RBC) [Ratio] 13.0 % Normal 11.5 - 14.5 [facility] Comment on above: Performed By: #### C BCDF #### [address] [address] Hematocrit (Bld) [Volume fraction] 38.5 % Normal 36.0 - 46.0 [facility] Comment on above: Performed By: #### C BCDF #### [address] [address] Hemoglobin (Bld) [Mass/Vol] 13.3 g/dL Normal 12.0 - 16.0 [facility] Comment on above: Performed By: #### C BCDF #### [address] [address] Lymphocytes (Bld) [#/Vol] 2.18 10*3/uL Normal 1.20 - 4.80 [facility] Comment on above: Performed By: #### C BCDF #### [address] [address] Lymphocytes/100 WBC (Bld) 23.9 % Normal 13.0 - 44.0 [facility] Comment on above: Performed By: #### C BCDF #### [address] [address] MCHC (RBC) [Mass/Vol] 34.5 g/dL Normal 32.0 - 36.0 [facility] Comment on above: Performed By: #### C BCDF #### [address] [address] MCV (RBC) [Entitic vol] 88 fL Normal 80 - 100 [facility] Comment on above: Performed By: #### C BCDF #### [address] [address] Monocytes (Bld) [#/Vol] 0.81 10*3/uL Normal 0.10 - 1.00 [facility] Comment on above: Performed By: #### C BCDF #### [address] [address] Monocytes/100 WBC (Bld) 8.9 % Normal 2.0 - 10.0 [facility] Comment on above: Performed By: #### C BCDF #### [address] [address] Neutrophils (Bld) [#/Vol] 5.64 10*3/uL Normal 1.20 - 7.70 [facility] Comment on above: Result Comment: Perc ent differential counts (%) should be interpreted in the context of the absolute cell counts (cells/L). Performed By: #### C BCDF #### [address] [address] Neutrophils/100 WBC (Bld) 61.7 % Normal 40.0 - 80.0 [facility] Comment on above: Performed By: #### C BCDF #### [address] [address] Platelets (Bld) [#/Vol] 253 10*3/uL Normal 150 - 450 [facility] Comment on above: Performed By: #### C BCDF #### [address] [address] RBC 4.39 x10E12/L Normal 4.00 - 5.20 [facility] Comment on above: Performed By: #### C BCDF #### [address] [address] WBC (Bld) [#/Vol] 9.1 10*3/uL Normal 4.4 - 11.3 [facility] Comment on above: Performed By: #### C BCDF #### [address] [address] HCG,BETA-QUANTITATIVEon 04-0 -2022 HCG,BETA-QUANTITATIVE [address] mIU/mL Abnormal S [facility] Comment on above: Result Comment: . Total HCG measurement is performed using the [employer] Access Immunoassay which detects intact HCG and free beta HCG subunit. . This test is not indicated for use as a tumor marker. HCG testing is performed using a different test methodology at [facility] than other [facility]. Direct result comparison should only [...] elevation. Performed By: #### H CGQU #### [address] [address] Provider Note - ED v3on 0 Provider [...] She is seen by Yuri Crenshaw at [place]. Patient states that nothing makes her symptoms [...] chart was dictated with the use of [employer] software within the framework of the current [...] Flagyl T (more content not included)... Normal [facility] Risk Screen - Adult Emergenc [...] instruction; written material Cultural Considerationsnone Developmental Considerationsnone Jewish Considerationsnone Learning Assessment (Other Learner): Learning Assessment [...] injured patient at a Trauma Center ([facility] [place]/[place]): no Electronic Signatures: Jessica Tijerina) (Signed 10-Sep-2022 21:01) Authored: Preferred Language, Patient Preferred Pharmacy, Advanced Directives, Family Violence Adult, Learning Assessment (Patient), Learning Assessment (Other Learner), Pressure Injury/TB/Substance, Pressure Injury, CAGE Last Updated: 10-Sep-2022 21:01 by Jessica Tijerina (RN) References: 1. 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 CELLS 2 /HPF Normal [facility] Comment on above: Performed By: #### U AMIC ####[place] [address] WBC 1 /HPF Normal 0-5 [facility] Comment on above: Performed By: #### U AMIC ####[place] [id number] URINALYSIS WITH CULTURE IF I NDICATEDon 09-10-2022 Appearance (U) CLEAR Normal CLEAR [facility] Comment on above: Performed By: #### U ARFX #### [place] [address] Bilirubin Ql (U) Negative Normal NEGATIVE [facility] Comment on above: Performed By: #### U ARFX #### [place] [address] Color (U) Yellow Normal STRAW,YELLOW [facility] Comment on above: Performed By: #### U ARFX #### [place] [address] Glucose Ql (U) Negative Normal NEGATIVE [facility] Comment on above: Performed By: #### U ARFX #### [place] [address] Hemoglobin Ql (U) MODERATE(2+) Abnormal NEGATIVE [facility] Comment on above: Performed By: #### U ARFX #### [place] [address] Ketones Ql (U) Negative Normal NEGATIVE [facility] Comment on above: Performed By: #### U ARFX #### [place] [address] Leukocyte esterase Test strip Ql (U) Negative Normal NEGATIVE [facility] Comment on above: Performed By: #### U ARFX #### [place] [address] Nitrite Ql (U) Negative Normal NEGATIVE [facility] Comment on above: Performed By: #### U ARFX #### [place] [address] pH (U) 5.0 [pH] Normal 5.0 - 8.0 [facility] Comment on above: Performed By: #### U ARFX #### [place] [address] Protein Ql (U) Negative Normal NEGATIVE [facility] Comment on above: Performed By: #### U ARFX #### [address] [address] Specific gravity (U) [Rel density] 1.028 Normal 1.005 - 1.035 [facility] Comment on above: Performed By: #### U ARFX #### [address] [address] Urobilinogen (U) [Mass/Vol] mg/dL Normal 0.0 - 1.9 [facility] Comment on above: Performed By: #### U ARFX #### [address] [address] US AGEon [birth year]10-2022 US AGE Patient Name: QUE HER STUDY: US AGE 409[birth year]10/2022 9:33 pm INDICATION: 32 y/o F with 12 WEEKS / BLEEDING. LMP: Unknown. COMPARISON: None. ACCESSION NUMBER(S): [id number] ORDERING CLINICIAN: CHEYANNE BRIGGS TECHNIQUE: Routine ultrasound [...] Electronically signed by: EDY BRIGGS MD Normal [facility] Culture, urineOrdered By: Dr Susana Saxena on 08-20-2022 Bacteria identified Cx Nom (U) Culture exhibits no growth. [facility] Cervical or vagninal specime n microscopic examination by cytology stain (reported asOrdered By: Dr. Saxena on 08-17-2022 Cytology report Cyto stain Doc (Cvx/Vag) Comment . [facility] Comment on above: The Pap [...] rRNA MAYTE+probe Ql (Unsp spec) Negative Negative [facility] Detection in cervical specim en of any of human papilloma virus (HPV) 16, 18, 31, 33,Ordered By: Dr. Saxena on 08-17-2022 HPV 16+18+31+33+35+39+45+5 1+52+56+58+59+66+68 DNA Probe+sig amp Ql (Cvx) Negative Negative [facility] Comment on above: This nucleic acid am plification test detects fourteen high- risk HPV types (16,18,31,33,35,39,45,51,52,56,58,59,66,68)without differentiation. Laboratory - CytologyOrdered By: Dr. Saxena on 08-17-2022 Senior Data Developer Cyto stain Nom (Cvx/Vag) [ID] Comment . [facility] Comment on above: Lizandro Ferrer, [facility] otechnologist (ASCP) Laboratory - Microbiology an d Antimicrobial susceptibilityOrdered By: Dr. Saxena on 08-17-2022 N. gonorrhoeae DNA MAYTE+probe Ql (Unsp spec) Negative Negative [facility] Comment on above: Performed at: [address] [id number] Director: Rita Vallecillo MD, Phone: [phone] Laboratory - Miscellaneous t estsOrdered By: Dr. Saxena on 08-17-2022 Service comment (Unsp spec) [Interp] Comment . [facility] Comment on above: This liquid based Th inPrep(R) pap test was screened withthe use of an image guided system. Service comment (Unsp spec) [Interp] . . [facility] Liquid-based cerv Pap + CT/G C by MAYTE w reflex to high-risk HPV for ASCUSOrdered By: Dr. Saxena on 08-17-2022 Cytology report Cyto stain.thin prep Doc (Cvx/Vag) Comment . [facility] Comment on above: Criteria not met, HP V Genotype not performed.Performed at: [facility] [id number] Director: Rita Vallecillo MD, Phone: [phone] at: =G - [facility] [address] [place], [place] [id number] Director: Rita Vallecillo MD, Phone: [phone] No Panel InformationOrdered By: Dr. Saxena on 08-17-2022 Pathology report final diagnosis Narrative Comment . [facility] Comment on above: NEGATIVE FOR INTRAEP ITHELIAL [...] SARS-CoV-2/Flu/RSV plus RT-PCR Cepheid assay on the [employer] X[employer] System. This test has not been approved for use in asymptomatic patients and its performance in this patient population has not been evaluated. Negative results do not rule out the presence of SARS-CoV-2/COVID-19. Fact sheets for this EUA can be found at the following links: For Healthcare Providers: https://www.fda.gov/med ia/346859/download For Patients: https://www.fda.gov/med ia/128101/download [facility] Comment on above: Performed By: #### L [id number] #### [facility] [address] [place], [place] [address] Roberto Cruz M.D. [id number] HCG, Quanton 07-30-2022 HCG, Quant 65466 mIU/mL High <5 [facility] Comment on above: Result Comment: Non-preg premeno <=5 Postmeno <=8 Male <=3 If HCG results do not concur with clinical observations, additional testing to confirm results is recommended. Performed By: #### B HCG #### [facility] [address] [place] [address] Spiral Machine Operator: Osiel Sapp MD HCG, Quantitative, on 07-30-2022 hCG Quant 11725 High NINF [facility] Comment on above: Non-preg premeno <=5 Postmeno <=8 Male <=3 If HCG results do not concur with clinical observations, additional testing to confirm results is recommended. Interpretation and review of laboratory results Abnormal [facility] Serum or plasma choriogonado tropin detectionOrdered By: Dr. Saxena on 07-29-2022 HCG ( test) Ql 9612 mIU/mL <4 [facility] Comment on above: hCG levels with Gest ational AgeGestational Age hCG mIU/mL (IU/L)0.2 - 1 week 5 - 501-2 weeks 50 - 5002-3 weeks 100 - 81141-4 weeks 500 - 889645-1 weeks 1000 - 565449-6 weeks 13393 - 100,0006-8 weeks 26858 - 200,0002-3 months 76046 - 100,000 Cult,Urineon 07-28-2022 Cult,Urine Specimen Description .URINE, MIDSTREAM Culture NO SIGNIFICANT GROWTH Report Status FINAL 07/28/2022 Normal [facility] Comment on above: Performed By: #### U RC #### [facility] [address] [place], [place] [id number] Spiral Machine Operator: Lucas Olson MD [facility] [address] [place] [address] Spiral Machine Operator: Osiel Sapp MD HCG, Quanton 07-28-2022 HCG, Quant 7888 mIU/mL High <5 [facility] Comment on above: Result Comment: Non-preg premeno <=5 Postmeno <=8 Male <=3 If HCG results do not concur with clinical observations, additional testing to confirm results is recommended. Performed By: #### B HCG #### [facility] [address] [place] [address] Spiral Machine Operator: Osiel Sapp MD US OB TRANSVAGINALon 023 [...] by: Charles Jay MD 07/28/22 Final result [facility] Single viable intrauterine with only a yolk sac visualized with an estimated sonographic age less than 5 weeks. Question subcentimeter subchorionic hemorrhage. Recommend serial beta hCGs and follow-up ultrasound. [facility] CONSOLIDATED TRANSVAGINAL FIRST TRIMESTER OB ULTRASOUND HISTORY: [...] no free fluid seen within the cul-de-sac. [facility] Charles Foote MD - 07/28/2022 TRANSVAGINAL FIRST [...] Recommend serial beta hCGs and follow-up ultrasound. [facility] Work Phone: Radiology Study observation (narrative) [facility] Work Phone: US OB TRANSVAGINALOrdered By : Charles Jay on 07-28-2022 [facility] Work Phone: hCG, Quantitative, on 07-28-2022 hCG Quant 7888 High NINF [facility] Comment on above: Non-preg premeno <=5 Postmeno <=8 Male <=3 If HCG results do not concur with clinical observations, additional testing to confirm results is recommended. Interpretation and review of laboratory results Abnormal [facility] CBC with Diffon 07-26-2022 Abs. Basophil 0.00 k/uL Normal 0.0-0.2 [facility] Comment on above: Performed By: #### C DP, CP #### [facility] [address] [place] [address] Spiral Machine Operator: Osiel Sapp MD Abs.Neutrophil (Seg) 5.10 k/uL Normal 2.5-7.0 [facility] Comment on above: Performed By: #### C DP, CP #### [facility] [address] [place] [id number] Spiral Machine Operator: Osiel Sapp MD Auto Diff Performed YES Normal [facility] Comment on above: Performed By: #### C DP, CP #### [facility] [address] [place] [address] Spiral Machine Operator: Osiel Sapp MD Basophils/100 WBC (Bld) 0 % Normal 0-2 [facility] Comment on above: Performed By: #### C DP, CP #### [facility] [address] [place], [place] [id number] Spiral Machine Operator: Osiel Sapp MD Eosinophils (Bld) [#/Vol] 0.30 10*3/uL Normal 0.0-0.4 [facility] Comment on above: Performed By: #### C DP, CP #### [facility] [address] [place], [place] [id number] Spiral Machine Operator: Osiel Sapp MD Eosinophils/100 WBC (Bld) 3 % Normal 0-5 [facility] Comment on above: Performed By: #### C DP, CP #### [facility] [address] [place] [address] Spiral Machine Operator: Osiel Sapp MD Erythrocyte distribution width (RBC) [Ratio] 13.1 % Normal 12.1-15.2 [facility] Comment on above: Performed By: #### C DP, CP #### [facility] [address] [place] [id number] Spiral Machine Operator: Osiel Sapp MD Hematocrit (Bld) [Volume fraction] 41.1 % Normal 36-46 [facility] Comment on above: Performed By: #### C DP, CP #### [facility] [address] [place] [address] Spiral Machine Operator: Osiel Sapp MD Hemoglobin (Bld) [Mass/Vol] 14.0 g/dL Normal 12.0-16.0 [facility] Comment on above: Performed By: #### C DP, CP #### [facility] [address] [place], [place] [id number] Spiral Machine Operator: Osiel Sapp MD Lymphocytes (Bld) [#/Vol] 2.40 10*3/uL Normal 1.0-4.8 [facility] Comment on above: Performed By: #### C DP, CP #### [facility] [address] [place] [id number] [phone] Spiral Machine Operator: Osiel Sapp MD Lymphocytes/100 WBC (Bld) 28 % Normal 15-40 [facility] Comment on above: Performed By: #### C DP, CP #### [facility] [address] [place] [address] Spiral Machine Operator: Osiel Sapp MD MCH (RBC) [Entitic mass] 30.3 pg Normal 26-34 [facility] Comment on above: Performed By: #### C DP, CP #### [facility] [address] [place] [address] Spiral Machine Operator: Osiel Sapp MD MCHC (RBC) [Mass/Vol] 34.0 g/dL Normal 31-37 [facility] Comment on above: Performed By: #### C DP, CP #### [facility] [address] [place] [address] Spiral Machine Operator: Osiel Sapp MD MCV (RBC) [Entitic vol] 89.2 fL Normal 80-100 [facility] Comment on above: Performed By: #### C DP, CP #### [facility] [address] [place] [address] Spiral Machine Operator: Osiel Sapp MD Monocytes (Bld) [#/Vol] 0.60 10*3/uL Normal 0.0-1.0 [facility] Comment on above: Performed By: #### C DP, CP #### [facility] [address] [place] [address] Spiral Machine Operator: Osiel Sapp MD Monocytes/100 WBC (Bld) 7 % Normal 4-8 [facility] Comment on above: Performed By: #### C DP, CP #### [facility] [address] [place] [address] Spiral Machine Operator: Osiel Sapp MD Neutrophil (Seg) 62 % Normal 47-[address] [facility] Comment on above: Performed By: #### C DP, CP #### [facility] [address] [place], [place] [id number] Spiral Machine Operator: Osiel Sapp MD Platelets (Bld) [#/Vol] 276 10*3/uL Normal 140-450 [facility] Comment on above: Performed By: #### C DP, CP #### [facility] [address] [place], [place] [id number] Spiral Machine Operator: Osiel Sapp MD RBC (Bld) [#/Vol] 4.61 10*6/uL Normal 4.0-5.2 [facility] Comment on above: Performed By: #### C DP, CP #### [facility] [address] [place], [place] [id number] Spiral Machine Operator: Osiel Sapp MD WBC (Bld) [#/Vol] 8.3 10*3/uL Normal 3.5-11.0 [facility] Comment on above: Performed By: #### C DP, CP #### [facility] [address] [place] [address] Spiral Machine Operator: Osiel Sapp MD Comp Metabolic Profon 2022 Albumin [Mass/Vol] 4.3 g/dL Normal 3.5-5.2 [facility] Comment on above: Performed By: #### C DP, CP #### [facility] [address], [place] [id number] Spiral Machine Operator: Osiel Sapp MD Alkaline Phos 115 U/L High 35-104 [facility] Comment on above: Performed By: #### C DP, CP #### [facility] [address] [place] [address] Spiral Machine Operator: Oseil Sapp MD ALT [Catalytic activity/Vol] 16 U/L Normal 5-33 [facility] Comment on above: Performed By: #### C DP, CP #### [facility] [address], [place] [id number] [employer] Machine Operator: Osiel Sapp MD Anion gap [Moles/Vol] 12 mmol/L Normal 9-17 [facility] Comment on above: Performed By: #### C DP, CP #### [facility] [address], [place] [id number] [employer] Operator: Osiel Sapp MD AST [Catalytic activity/Vol] 17 U/L Normal <32 [facility] Comment on above: Performed By: #### C DP, CP #### [facility] [address], [place] [id number] Sp[employer] Machine Operator: Osiel Sapp MD Bilirubin [Mass/Vol] 0.6 mg/dL Normal 0.3-1.2 [facility] Comment on above: Performed By: #### C DP, CP #### [facility] [address], [place] [id number] Spiral Machine Operator: Osiel Sapp MD BUN/CRE Ratio 13 Normal 9-20 [facility] Comment on above: Performed By: #### C DP, CP #### [facility] [address], [place] [id number] Sp[employer] Machine Operator: Osiel Sapp MD Calcium [Mass/Vol] 9.1 mg/dL Normal 8.6-10.4 [facility] Comment on above: Performed By: #### C DP, CP #### [facility] [address] [place], [place] [id number] Sp[employer] Machine Operator: Osiel Sapp MD Chloride [Moles/Vol] 99 mmol/L Normal 98-107 [facility] Comment on above: Performed By: #### C DP, CP #### [facility] [address], [place] [id number] Sp[employer] Machine Operator: Osiel Sapp MD CO2 [Moles/Vol] 20 mmol/L Normal 20-31 [facility] Comment on above: Performed By: #### C DP, CP #### [facility] [address] [place] [address] Spiral Machine Operator: Osiel Sapp MD Creatinine [Mass/Vol] 0.82 mg/dL Normal 0.50-0.90 [facility] Comment on above: Performed By: #### C DP, CP #### [facility] [address] [place] [address] Spiral Machine Operator: Osiel Sapp MD GFR/1.73 sq M.predicted among non-blacks MDRD (S/P/Bld) [Vol rate/Area] mL/min/{1.73_m2} Normal >60 [facility] Comment on above: Result Comment: These [...] Performed By: #### C DP, CP #### [facility] [address] [place] [address] Spiral Machine Operator: Osiel Sapp MD Glucose [Mass/Vol] 91 mg/dL Normal 70-99 [facility] Comment on above: Performed By: #### C DP, CP #### [facility] [address] [place] [address] Spiral Machine Operator: Osiel Sapp MD Potassium [Moles/Vol] 3.7 mmol/L Normal 3.7-5.3 [facility] Comment on above: Performed By: #### C DP, CP #### [facility] [address] [place] [address] Spiral Machine Operator: Osiel Sapp MD Protein [Mass/Vol] 7.2 g/dL Normal 6.4-8.3 [facility] Comment on above: Performed By: #### C DP, CP #### [facility] [address] [place] [address] Spiral Machine Operator: Osiel Sapp MD Sodium [Moles/Vol] 131 mmol/L Low 135-144 [facility] Comment on above: Performed By: #### C DP, CP #### [facility] [address], [place] [id number] Sp[employer] Machine Operator: Osiel Sapp MD Urea nitrogen [Mass/Vol] 11 mg/dL Normal 6-20 [facility] Comment on above: Performed By: #### C DP, CP #### [facility] [address] [place] [address] Spiral Machine Operator: Osiel Sapp MD HCG, ,Urineon 07-26 Beta HCG ( test) Ql (U) Positive Abnormal NEG [facility] Comment on above: Result Comment: If H CG results do not concur with clinical observations, additional testing to confirm result is recommended. This test is not labeled for use as a tumor marker. Performed By: #### U AKRISTEL UMICAO #### [facility] [address] [place] [address] Spiral Machine Operator: Osiel Sapp MD HCG, Quanton 07-26-2022 HCG, Quant 5174 mIU/mL High <5 [facility] Comment on above: Result Comment: Non-preg premeno <=5 Postmeno <=8 Male <=3 If HCG results do not concur with clinical observations, additional testing to confirm results is recommended. Performed By: #### B HCG #### [facility] [address] [place] [address] Spiral Machine Operator: Osiel Sapp MD Urinalysis, Routineon 2022 Bilirubin, SemiQt,Ur Negative Normal NEG [facility] Comment on above: Performed By: #### U AFRANCCG, SEAICAO #### [facility] [address] [place] [address] Spiral Machine Operator: Osiel Sapp MD Blood, Urine Negative Normal NEG [facility] Comment on above: Performed By: #### U A, CG, UMICAO #### [facility] [address] [place] [address] Spiral Machine Operator: Osiel Sapp MD Clarity (U) Clear Normal CLEAR [facility] Comment on above: Performed By: #### U A, [facility], UMICAO #### [facility] [address] [place] [address] Spiral Machine Operator: Osiel Sapp MD Color (U) Yellow Normal YEL [facility] Comment on above: Performed By: #### U A, CG, UMICAO #### [facility] [address] [place] [address] Spiral Machine Operator: Osiel Sapp MD Comment Normal [facility] Comment on above: Performed By: #### U A, [facility], UMICAO #### [facility] [address] [place] [address] Spiral Machine Operator: Osiel Sapp MD Glucose Ql (U) Negative Normal NEG [facility] Comment on above: Performed By: #### U A, CG, UMICAO #### [facility] [address] [place] [address] Spiral Machine Operator: Osiel Sapp MD Ketones Ql (U) TRACE Abnormal NEG [facility] Comment on above: Performed By: #### U A, CG, UMICAO #### [facility] [address] [place] [address] Spiral Machine Operator: Osiel Sapp MD Leukocyte esterase Test strip Ql (U) 1+ Abnormal NEG [facility] Comment on above: Performed By: #### U A, UHCG, UMICAO #### [facility] [address] [place] [address] Spiral Machine Operator: Osiel Sapp MD Nitrite,Ur Negative Normal NEG [facility] Comment on above: Performed By: #### U A, [facility], UMICAO #### [facility] [address] [place] [address] Spiral Machine Operator: Osiel Sapp MD PH,Ur 5.0 Normal 5.0-8.0 [facility] Comment on above: Performed By: #### U A, [facility], UMICAO #### [facility] [address] [place] [address] Spiral Machine Operator: Osiel Sapp MD Protein Ql (U) TRACE Abnormal NEG [facility] Comment on above: Performed By: #### U A, [facility], UMICAO #### [facility] [address] [place] [address] Spiral Machine Operator: Osiel Sapp MD Spec. [place],Ur 1.025 Normal 1.005-1.030 [facility] Comment on above: Performed By: #### U A, [facility], UMICAO #### [facility] [address] [place] [address] Spiral Machine Operator: Osiel Sapp MD Urobilinogen,Ur Normal Normal NORM [facility] Comment on above: Performed By: #### U A, [facility], UMICAO #### [facility] [address] [place] [address] Spiral Machine Operator: Osiel Sapp MD Urinalysis,Microon 3 ----- Normal [facility] Comment on above: Performed By: #### U A, [facility], UMICAO #### [facility] [address] [place] [address] Spiral Machine Operator: Osiel Sapp MD Bacteria RARE Abnormal NONE [facility] Comment on above: Performed By: #### U A, UHCG, UMICAO #### [facility] [address] [place] [address] Spiral Machine Operator: Osiel Sapp MD Urine RBC's 0 TO 2 Normal 0-2 [facility] Comment on above: Performed By: #### U A, UHCG, UMICAO #### [facility] [address] [place] [address] Spiral Machine Operator: Osiel Sapp MD Urine WBC's 2 TO 5 Normal 0 [facility] Comment on above: Performed By: #### U A, CG, UMICAO #### [facility] [address] [place] [address] Spiral Machine Operator: Osiel Sapp MD CT LUMBAR SPINE WO [...] Ashly Miles DO 07/14/22 Final result Normal [facility] Unremarkable CT examination of the lumbar spine. [facility] EXAMINATION:CT LUMBA R SPINE WO CONTRAST [...] soft tissues are grossly unremarkable. [facility] Ashly Miles DO - 07/14/2022 EXAMINATION:CT [...] Unremarkable CT examination of the lumbar spine. [employer] Work Phone: CT LUMBAR SPINE WO CONTRASTO rdered By: Ashlysawyer Miles on 07-14-2022 [facility] Phone: HCG, ,Urineon 07-14 Beta HCG ( test) Ql (U) Negative Normal NEG [facility] Comment on above: Performed By: #### U HCG ####[facility] [address] [place] [address] Lab Director: Osiel Sapp MD CT LUMBAR SPINE WO CONTRASTo n 07-13-2022 Radiology Study observation (narrative) [facility] Phone: Urine Preg (Lab)on 3 Beta HCG ( test) Ql (U) Negative NEGATIVE [email or web address] [employer] COVID-19/INFLUENZA A,B MOLEC ULARon 05-09-2022 SARS-CoV-2 (COVID-19) Ab IA Ql INFLUENZA A (CEPHEID): Detected INFLUENZA B (CEPHEID): Not Detected SARS-COV-2 (CEPHEID): Not Detected This test was performed under the FDA's Emergency Use Authorization (EUA). Testing was performed using the Xpert?? Xpress SARS-CoV-2/Flu/RSV plus RT-PCR CepWorldDocid assay on the [employer] Xpress System. This test has not been approved for use in asymptomatic patients and its performance in this patient population has not been evaluated. Negative results do not rule out the presence of SARS-CoV-2/COVID-19. Fact sheets for this EUA can be found at the following links: For Healthcare Providers: https://www.fda.gov/med ia/801000/download For Patients: https://www.fda.gov/med ia/834529/download [facility] Comment on above: Performed By: #### L [id number] #### [facility] [address] [place], [place] [address] Roberto Cruz M.D. [id number] CORONAVIRUS 2019, SCREEN ASY MPTOMATICon 11-09-2021 SARS-CoV-2 (COVID-19) RNA MAYTE+probe Ql (Unsp spec) Canceled Normal [facility] Comment on above: Order Comment: TEST [...] patient management decisions. Fact sheet for providers: https://www.fda.gov/media/205938/download Fact sheet for patients: https://www.fda.gov/media/410892/download This test has received FDA Emergency Use Authorization (EUA) and has been verified by [facility] ([facility]). This test is only authorized for the duration of time that circumstances exist to justify the authorization of the emergency use of in vitro diagnostic tests for the detection of SARS-CoV-2 virus and/or diagnosis of COVID-19 infection under section 564(b)(1) of the Act, 21 U.S.C. 360bbb-3(b)(1), unless the authorization is terminated or revoked sooner. [facility] is certified under CLIA-88 as qualified to perform high complexity testing. Testing is performed in the [facility] laboratories located at [address] [place] [address]. Performed By: #### C OVSC #### [address] [place] [address] CORONAVIRUS 2019, SCREEN ASY MPTOMATICon 10-11-2021 SARS-CoV-2 (COVID-19) RNA MAYTE+probe Ql (Unsp spec) Not detected Normal Not Detected [facility] Comment on above: Result Comment: . [...] patient management decisions. Fact sheet for providers: https://www.fda.gov/media/525654/download Fact sheet for patients: https://www.fda.gov/media/193807/download This test has received FDA Emergency Use Authorization (EUA) and has been verified by [facility] ([facility]). This test is only authorized for the duration of time that circumstances exist to justify the authorization of the emergency use of in vitro diagnostic tests for the detection of SARS-CoV-2 virus and/or diagnosis of COVID-19 infection under section 564(b)(1) of the Act, 21 U.S.C. 360bbb-3(b)(1), unless the authorization is terminated or revoked sooner. [facility] is certified under CLIA-88 as qualified to perform high complexity testing. Testing is performed in the [facility] laboratories located at [address] [place] [address]. Performed By: #### C OVSC #### [place] [address] Covid 19 Resultson SARS-CoV-2 (COVID-19) RNA MAYTE+probe Ql (Unsp spec) [...] may also be contacted by the [facility] to see if any of your [...] or Naproxen (Aleve) can also be used. Ypzz-mpq-emgozrl cough and cold medicines can be used according to the instructions on the package. Some rfhz-wlb-ylfxyki medicines also contain acetaminophen. Make sure you [...] water are not available, use alcohol-based hand professor of law. Avoid touching your eyes, nose, and mouth [...] 24 suzette (more content not included)... Normal [facility] CORONAVIRUS 2019, SCREEN ASY MPTOMATICon 10-10-2021 Lab Specimen Source Nasal, Nasopharyngeal Normal [facility] Comment on above: Performed By: #### C OVSC #### [facility] [id number] [place] [address]. [place] [id number] Coronavirus 2019 RNA by PCR, Screening Asymptomticon 10-10-2021 Coronavirus 2019 RNA by PCR, Screening Asymptomtic Not detected Normal See Below [facility] [address] [place] Work Phone: Comment on above: SOURCE: Nasal, [...] make patient management decisions.Fact sheet for providers: https://www.fda.gov/media/503073/downloadFact sheet for patients: https://www.fda.gov/media/628685/downloadThis test has received FDA Emergency Use Authorization (EUA) and has been verified by [facility] ([facility]). This test is only authorized for the duration of time that circumstances exist to justify the authorization of the emergency use of in vitro diagnostic tests for the detection of SARS-CoV-2 virus and/or diagnosis of COVID-19 infection under section 564(b)(1) of the Act, 21 U.S.C. 360bbb-3(b)(1), unless the authorization is terminated or revoked sooner. [facility] is certified under CLIA-88 as qualified to perform high complexity testing. Testing is performed in the [facility] laboratories located at [address] [place] [id number]. CORONAVIRUS 2019, SCREEN ASY MPTOMATICon 10-08-2021 Lab Specimen Source Nasal, Nasopharyngeal Normal [facility] Comment on above: Order Comment: TEST CORONAVIRUS 2019, SCREEN ASYMPTOMATIC WAS CANCELLED, 11/09/2021 11:40 test not completed. Performed By: #### C OVSC #### [facility] [address] [place] [address] Laboratory - Chemistry and C hemistry - challengeon 09-26-2021 Albumin BCP dye [Mass/Vol] 3.2 g/dL below low threshold 3.4 - 5.0 [employer] Work Phone: ALP [Catalytic activity/Vol] 125 U/L above high threshold 33 - 110 [employer] Work Phone: ALT With P-5'-P [Catalytic activity/Vol] 7 U/L 7 - 45 [employer] Work Phone: Comment on above: Patients treated wit h Sulfasalazine may generate falsely decreased results for ALT. Anion gap [Moles/Vol] 14 mmol/L 10 - 20 [facility] Work Phone: AST With P-5'-P [Catalytic activity/Vol] 10 U/L 9 - 39 [employer] Work Phone: Bilirubin [Mass/Vol] 0.6 mg/dL 0.0 - 1.2 [employer] Work Phone: Calcium [Mass/Vol] 7.7 mg/dL below low threshold 8.6 - 10.3 [employer] Work Phone: Chloride [Moles/Vol] 107 mmol/L 98 - 107 [employer] Work Phone: CO2 [Moles/Vol] 18 mmol/L below low threshold 21 - 32 [employer] Work Phone: Creatinine [Mass/Vol] 0.44 mg/dL below low threshold See Below [employer] Work Phone: Comment on above: Reference Range: 0.5 0 - 1.05 Glucose [Mass/Vol] 117 mg/dL above high threshold 74 - 99 [employer] Work Phone: Potassium [Moles/Vol] 3.5 mmol/L 3.5 - 5.3 Wo [employer] Work Phone: Protein [Mass/Vol] 6.0 g/dL below low threshold 6.4 - 8.2 [employer] Work Phone: [phone] Sodium [Moles/Vol] 135 mmol/L below low threshold 136 - 145 [employer] Work Phone: Urea nitrogen [Mass/Vol] 7 mg/dL 6 - 23 [employer] Work Phone: Laboratory - Hematology and Cell countson 09-26-2021 Erythrocyte distribution width (RBC) [Ratio] 14.2 % See Below [employer] Work Phone: Comment on above: Reference Range: 11. 5 - 14.5 Hematocrit (Bld) [Volume fraction] 33.5 % below low threshold See Below [employer] Work Phone: Comment on above: Reference Range: 36. 0 - 46.0 Hemoglobin (Bld) [Mass/Vol] 11.1 g/dL below low threshold See Below [employer] Work Phone: Comment on above: Reference Range: 12. 0 - 16.0 MCHC (RBC) [Mass/Vol] 33.2 g/dL See Below [facility] [employer] Work Phone: Comment on above: Reference Range: 32. 0 - 36.0 MCV (RBC) [Entitic vol] 92 fL 80 - 100 [employer] Work Phone: Platelets (Bld) [#/Vol] 233 10*3/uL 150 - 450 [employer] Work Phone: RBC (Bld) [#/Vol] 3.66 {x10E12/L} below low threshold See Below [facility] [place] Work Phone: Comment on above: Reference Range: 4.0 0 - 5.20 WBC (Bld) [#/Vol] 12.0 10*3/uL above high threshold 4.4 - 11.3 [facility] [employer] Work Phone: No Panel Informationon 09-26 >90 >90 [facility] [employer] Work Phone: Comment on above: CALCULATIONS OF YOLANDA MATED GFR ARE PERFORMED USING THE 2020 CKD-EPI STUDY REFIT EQUATION WITHOUT THE RACE VARIABLE FOR THE IDMS-TRACEABLE CREATININE METHODS.https://jasn.asnjournals.org/content//A SN.1284665666 Total Protein, Urine Spoton 09-26-2021 Creatinine (U) [Mass/Vol] 86.0 mg/dL See Below [facility] Services[facility] [place] [address] [place] Work Phone: Comment on above: Reference Range: 20. 0 - 320.0 Protein (U) [Mass/Vol] 19 mg/dL 5 - 24 Wo [facility] [employer] Work Phone: Protein/Creatinine (U) [Ratio] 0.22 {mg/mg_Creat} above high threshold See Below [place] [address] [place] Work Phone: Comment on above: Reference Range: 0.0 0 - 0.17 Uric Acid, Serumon Urate [Mass/Vol] 4.1 mg/dL 2.3 - 6.7 [facility] [employer] [facility] [employer] Work Phone: Comment on above: Venipuncture immedia tely after or during the administration of Metamizole may lead to falsely low results. Testing should be performed immediately prior to Metamizole dosing. GROUP B STREP SCREENon 09-17 GROUP B STREP SCREEN PATIENT: ARSALAN HER IN L LOCATION: [facility] BILL#: [id number] : 89 AGE: SEX: F ORDERED BY: ANDRY RUEDA SOURCE: VAGINAL COLLECTED: 09/17/21 11:29 ANTIBIOTICS AT LINDA.: RECEIVED : 09/17/21 22:38 SITE: VAGINAL R E S U L T S GROUP B STREP SCREEN FINAL 09/19/21 12:47 NEGATIVE FOR GROUP B BETA STREP. Normal [facility] Comment on above: Performed By: #### G BSCR #### [facility] [address] [place] [address] Laboratory - Microbiology an d Antimicrobial susceptibilityon 09-17-2021 Bacteria identified Aer cx Nom (Genital specimen) [facility] [place] Work Phone: No Panel Informationon 09-17 Normal [facility] [employer] Work Phone: IO Wet Mounton 08-27-2021 IO Wet Mount Negative [facility] Work Phone: No Panel Informationon 08-05 Normal [facility] [place] Work Phone: Glucose, 1 Hour Screen, Preg nancyon 07-14-2021 Glucose 1 Hr post 50 g glucose PO [Mass/Vol] 132 mg/dL <135 [facility] [employer] Work Phone: Comment on above: Diagnostic value wit h glucose loading dose of 50 g. Reference values from [place] [employer]. Diabetes Care 2015;38(Suppl.1):S8-S16 Laboratory - Blood bankon Blood group antibody screen Ql Canceled [facility] [place] Work Phone: Blood group antibody screen Ql Negative [facility] [employer] Work Phone: Laboratory - Hematology and Cell countson 07-14-2021 Erythrocyte distribution width (RBC) [Ratio] 13.9 % See Below [facility] [employer] Work Phone: Comment on above: Reference Range: 11. 5 - 14.5 Hematocrit (Bld) [Volume fraction] 35.7 % below low threshold See Below [facility] [employer] [facility] Work Phone: Comment on above: Reference Range: 36. 0 - 46.0 Hemoglobin (Bld) [Mass/Vol] 12.3 g/dL See Below [place] [address] [place] Work Phone: Comment on above: Reference Range: 12. 0 - 16.0 MCHC (RBC) [Mass/Vol] 34.5 g/dL See Below [facility] centerMeilimeiYovany [place] Work Phone: Comment on above: Reference Range: 32. 0 - 36.0 MCV (RBC) [Entitic vol] 93 fL 80 - 100 [facility] hospitalMeilimeiKathy [place] [address] [employer] [facility] Work Phone: Platelets (Bld) [#/Vol] 260 10*3/uL 150 - 450 [facility] hospitalMeilimeiK[place] [address] [facility] [facility] Work Phone: RBC (Bld) [#/Vol] 3.83 {x10E12/L} below low threshold See Below [facility]igh hospitalLPATH [place] [address] [facility] [facility] Work Phone: Comment on above: Reference Range: 4.0 0 - 5.20 WBC (Bld) [#/Vol] 10.7 10*3/uL 4.4 - 11.3 [facility] hospitalMeilimeiKathy [place] [address] [facility] Work Phone: No Panel Informationon 07-14 NONE [facility]imeiK[place] [address] [facility] Work Phone: Rhogamon 07-14-2021 Rhogam ORDER RECD [facility] MedicalK[place] [address] [facility] Work Phone: Rhogam Canceled [facility] hospitalMeilimeiK[place] [address] [facility] Work Phone: RAPID TOX SCREEN WITH RELEX TO DRUGMCon 06-23-2021 Amphetamine (U) [Mass/Vol] Negative NEGATIVE NG/ML [facility] Comment on above: <500 ng/ml CUTOFF Barbiturates Screen Ql (U) Negative NEGATIVE NG/ML [facility] Comment on above: <200 ng/ml CUTOFF Benzodiazepines Ql (U) Negative NEGAT JESUS NG/ML [facility] Comment on above: <150 ng/ml CUTOFF Benzoylecgonine Ql (U) Negative NEGAT JESUS NG/ML [facility] Comment on above: <150 ng/ml CUTOFF Buprenorphine Ql (U) Negative NEGATIV E NG/ML [facility] Comment on above: <10 ng/ml CUTOFF Testing performed at [place] [address] Cannabinoids Screen Ql (U) Negative NEGATIVE NG/ML [facility] Comment on above: <50 ng/ml CUTOFF Methadone Screen Ql (U) Negative NEGATIVE NG/ML [facility] Comment on above: <200 ng/ml CUTOFF Methamphetamine (U) [Mass/Vol] Negative NEGATIVE NG/ML [facility] Comment on above: <500 ng/ml CUTOFF Opiates Screen Ql (U) Negative NEGATI VE NG/ML [facility] Comment on above: <100 ng/ml CUTOFF oxyCODONE Ql (U) Negative NEGATIVE NG/ML [facility] Comment on above: <100 ng/ml CUTOFF Phencyclidine Screen method >25 ng/mL Ql (U) Negative NEGATIVE NG/ML [facility] Comment on above: <25 ng/ml CUTOFF Propoxyphene+Norpropox yphene Screen Ql (U) Negative NEGATIVE NG/ML [facility] Comment on above: <300 ng/ml CUTOFF Tricyclic antidepressants Screen Ql (U) Negative NEGATIVE NG/ML [facility] Comment on above: <300 ng/ml CUTOFF [facility] URINALYSIS, MACROon 06-23-19 Bilirubin Ql (U) Negative NEGATIVE [facility] Clarity (U) CLEAR CLEAR [facility] Color (U) YELLOW YELLOW [facility] Glucose Test strip (U) [Mass/Vol] Negative NEGATIVE mg/dl [facility] Hemoglobin Ql (U) Negative NEGATIVE [facility] Ketones (U) [Mass/Vol] Negative NEGAT JESUS mg/dl [facility] Leukocyte esterase Test strip Ql (U) Negative NEGATIVE [facility] Comment on above: Testing performed at [place], [place] [address] Nitrite Ql (U) Negative NEGATIVE [facility] pH (U) 6.0 [pH] [facility] Protein Ql (U) Negative NEGATIVE mg/dl [facility] Specific gravity (U) [Rel density] 1.025 [facility] [place] Urobilinogen (U) [Mass/Vol] 0.2 mg/dL [facility] HOLTER MONITOR- EXTENDED (3 TO 7 DAYS)on [...] AV block No significant bradycardia episodes Normal [facility] Ambulatory Ferritinon 05-17-2021 Ferritin [Mass/Vol] 18 ng/mL 13 - 150 ng/mL [facility] Iron and Iron binding capaci ty panelon 05-17-2021 Iron [Mass/Vol] 123 ug/dL [facility] h Iron binding capacity [Mass/Vol] 368 [facility] Iron saturation [Mass fraction] 33 % 20 - 50 % [facility] No Panel Informationon 05-17 Interpretation and review of laboratory results Normal [facility] CTPCRon 02-14-2021 C. trachomatis Interp Normal See CT Interp N [facility] ([place]) Comment on above: Result Comment: C. t rachomatis DNA not detected. Specimen is presumptive negative for C. trachomatis. A negative result does not preclude C. trachomatis infection because results depend on adequate specimen collection, absence of inhibitors, and sufficient DNA to be detected. See CT Interp N Performed By: #### C TPCR, NGPCR1 #### [address] [address] C.trachomatis PCR Negative Normal Negative [facility] ([place]) Comment on above: Result Comment: Dias sport tube received with two swabs. Review collection procedure. Inappropriate collection may cause aberrant results. Transport tube received with two swabs. Review collection procedure. Inappropriate collection may cause aberrant results. Molecular (PCR) assay performed on the Kel[employer] Irma 4800 system. Performed By: #### C TPCR, NGPCR1 #### [address] [address] Chlam Source Vaginal Normal [facility] ([place]) Comment on above: Performed By: #### C TPCR, NGPCR1 #### [address] [address] NLITS7ss 02-14-2021 GC PCR Source Vaginal Normal [facility] ([place] Comment on above: Performed By: #### U A, PREGU #### [address] [address] N. gonorrhoeae (PCR) Negative Normal Negative [facility] ([place]) Comment on above: Result Comment: Dias sport tube received with two swabs. Review collection procedure. Inappropriate collection may cause aberrant results. Transport tube received with two swabs. Review collection procedure. Inappropriate collection may cause aberrant results. Molecular (PCR) assay performed on the Kel[employer] Irma 4800 System. Performed By: #### U A, PREGU #### [address] [address] N. gonorrhoeae Interp Normal See NG Interp N [facility] ([place]) Comment on above: Result Comment: N. g onorrhoeae DNA not detected. Specimen is presumptive negative for N. gonorrhoeae. A negative result does not preclude Neisseria gonorrhoeae infection because results depend on adequate specimen collection, absence of inhibitors, and sufficient DNA to be detected. See NG Interp N Performed By: #### U A, PREGU #### [address] [address] .Auto Diffon 02-12-2021 Basophil, Absolute 0.00 10 3/mcL Normal 0.00-0.19 [facility] ([place]) Comment on above: Performed By: #### B MP, GFR #### [place] [address] #### CBC, ADIFF, ANEU, HCGQ, ABOG #### [address] [address] Basophils/100 WBC (Bld) 0.4 % Normal 0.0-2.5 [facility] ([place]) Comment on above: Performed By: #### B MP, GFR #### [place] [address] #### CBC, ADIFF, ANEU, HCGQ, ABOG #### [address] [address] Eosinophil, Absolute 0.00 10 3/mcL Normal 0.00-0.40 [facility] ([place]) Comment on above: Performed By: #### B MP, GFR #### [place] [address] #### CBC, ADIFF, ANEU, HCGQ, ABOG #### [address] [address] Eosinophils/100 WBC (Bld) 0.1 % Normal 0.0-7.0 [facility] ([place]) Comment on above: Performed By: #### B MP, GFR #### [place] [address] #### CBC, ADIFF, ANEU, HCGQ, ABOG #### [address] [address] Lymphocyte, Absolute 1.40 10 3/mcL Normal 0.77-3.85 [facility] ([place]) Comment on above: Performed By: #### B MP, GFR #### [place] [address] #### CBC, ADIFF, ANEU, HCGQ, ABOG #### [address] [address] Lymphocytes/100 WBC (Bld) 29.2 % Normal 10.0-50.0 [facility] ([place] Comment on above: Performed By: #### B MP, GFR #### [place] [address] #### CBC, ADIFF, ANEU, HCGQ, ABOG #### [address] [address] Monocyte, Absolute 0.30 10 3/mcL Normal 0.15-1.00 [facility] ([place]) Comment on above: Performed By: #### B MP, GFR #### [place] [address] #### CBC, ADIFF, ANEU, HCGQ, ABOG #### [address] [address] Monocytes/100 WBC (Bld) 7.2 % Normal 1.7-13.0 [facility] ([place]) Comment on above: Performed By: #### B MP, GFR #### [address] [address] #### CBC, ADIFF, ANEU, HCGQ, ABOG #### [address] [address] Neutrophils/100 WBC (Bld) 63.1 % Normal 37.0-80.0 [facility] ([place]) Comment on above: Performed By: #### B MP, GFR #### [address] [address] #### CBC, ADIFF, ANEU, HCGQ, ABOG #### [address] [address] .GFRon 02-12-2021 GFR 96 ml/min/1.73sqm Normal [facility] ([place]) Comment on above: Result [...] Performed By: #### B MP, GFR #### [address] [address] #### CBC, ADIFF, ANEU, HCGQ, ABOG #### [address] [address] GFR Non- 80 ml/min/1.73sqm Normal [facility] ([place]) Comment on above: Result [...] Performed By: #### B MP, GFR #### [place] [address] #### CBC, ADIFF, ANEU, HCGQ, ABOG #### [address] [address] .NEUABSon 02-12-2021 Neutrophil, Absolute 3.00 10 3/mcL Normal 2.85-6.16 [facility] ([place]) Comment on above: Performed By: #### B MP, GFR #### [place] [address] #### CBC, ADIFF, ANEU, HCGQ, ABOG #### [address] [address] BMPon 02-12-2021 BUN/Creatinine Ratio 14 ratio Normal 7-27 [facility] ([place]) Comment on above: Performed By: #### B MP, GFR #### [place] [address] #### CBC, ADIFF, ANEU, HCGQ, ABOG #### [address] [address] Calcium [Mass/Vol] 8.4 mg/dL Normal 8.4-10.2 [facility] ([place]) Comment on above: Performed By: #### B MP, GFR #### [place] [address] #### CBC, ADIFF, ANEU, HCGQ, ABOG #### [address] [address] Chloride [Moles/Vol] 104 mmol/L Normal 98-107 [facility] ([place]) Comment on above: Performed By: #### B MP, GFR #### [place] [address] #### CBC, ADIFF, ANEU, HCGQ, ABOG #### [address] [address] CO2 [Moles/Vol] 26 mmol/L Normal 22-29 [facility] ([place]) Comment on above: Performed By: #### B MP, GFR #### [place] [address] #### CBC, ADIFF, ANEU, HCGQ, ABOG #### [address] [address] Creatinine [Mass/Vol] 0.84 mg/dL Normal 0.55-1.02 [facility] ([place]) Comment on above: Performed By: #### B MP, GFR #### [place] [address] #### CBC, ADIFF, ANEU, HCGQ, ABOG #### [address] [address] Electrolyte Balance 11.0 mEq/L Normal [facility] ([place]) Comment on above: Performed By: #### B MP, GFR #### [place] [address] #### CBC, ADIFF, ANEU, HCGQ, ABOG #### [address] [address] Glucose [Mass/Vol] 151 mg/dL High 70-105 [facility] ([place]) Comment on above: Performed By: #### B MP, GFR #### [place] [address] #### CBC, ADIFF, ANEU, HCGQ, ABOG #### [address] [address] Potassium [Moles/Vol] 3.7 mmol/L Normal 3.5-5.1 [facility] ([place]) Comment on above: Performed By: #### B MP, GFR #### [place] [address] #### CBC, ADIFF, ANEU, HCGQ, ABOG #### [address] [address] Sodium [Moles/Vol] 141 mmol/L Normal 136-145 [facility] ([place]) Comment on above: Performed By: #### B MP, GFR #### [place] [address] #### CBC, ADIFF, ANEU, HCGQ, ABOG #### [place] [phone] Urea nitrogen [Mass/Vol] 12 mg/dL Normal 7-18 [facility] ([place]) Comment on above: Performed By: #### B MP, GFR #### [place] [address] #### CBC, ADIFF, ANEU, HCGQ, ABOG #### [place] [phone] CBCon 02-12-2021 Erythrocyte distribution width (RBC) [Ratio] 13.1 % Normal 11.5-14.5 [facility] ([place]) Comment on above: Performed By: #### B MP, GFR #### [place] [address] #### CBC, ADIFF, ANEU, HCGQ, ABOG #### [address] [address] Hematocrit (Bld) [Volume fraction] 42.0 % Normal 37.0-47.0 [facility] ([place]) Comment on above: Performed By: #### B MP, GFR #### [place] [address] #### CBC, ADIFF, ANEU, HCGQ, ABOG #### [place] [phone] Hgb 14.3 G/dL Normal 12.0-16.0 [facility] ([place] Comment on above: Performed By: #### B MP, GFR #### [place] [address] #### CBC, ADIFF, ANEU, HCGQ, ABOG #### [address] [address] MCH (RBC) [Entitic mass] 31.5 pg High 27.0-31.2 [facility] ([place]) Comment on above: Performed By: #### B MP, GFR #### [place] [address] #### CBC, ADIFF, ANEU, HCGQ, ABOG #### [place] [address] MCHC 34.1 G/dL Normal 33.0-37.0 [facility] ([place] Comment on above: Performed By: #### B MP, GFR #### [place] [address] #### CBC, ADIFF, ANEU, HCGQ, ABOG #### [address] [address] MCV (RBC) [Entitic vol] 92.3 fL Normal 80.0-94.0 [facility] ([place] Comment on above: Performed By: #### B MP, GFR #### [place] [address] #### CBC, ADIFF, ANEU, HCGQ, ABOG #### [address] [address] Platelet 199 10 3/mcL Normal 130-400 [facility] ([place]) Comment on above: Performed By: #### B MP, GFR #### [place] [address] #### CBC, ADIFF, ANEU, HCGQ, ABOG #### [address] [address] Platelet mean volume (Bld) [Entitic vol] 8.6 fL Normal 7.4-10.4 [facility] ([place]) Comment on above: Performed By: #### B MP, GFR #### [address] [address] #### CBC, ADIFF, ANEU, HCGQ, ABOG #### [address] [address] RBC 4.55 10 6/mcL Normal 4.20-5.40 [facility] ([place]) Comment on above: Performed By: #### B MP, GFR #### [address] [address] #### CBC, ADIFF, ANEU, HCGQ, ABOG #### [address] [address] WBC 4.80 10 3/mcL Normal 4.60-10.80 [facility] ([place]) Comment on above: Performed By: #### B MP, GFR #### [place] [address] #### CBC, ADIFF, ANEU, HCGQ, ABOG #### [address] [address] Gel ABOon 02-12-2021 ABO/Rh Interp Negative Invalid Interpretation Code [facility] ([place]) Comment on above: Performed By: #### B MP, GFR #### [address] [address] #### CBC, ADIFF, ANEU, HCGQ, ABOG #### [address] [address] HCGQon 02-12-2021 hCG, quantitative 5108.5 mIU/mL Normal [facility] ([place]) Comment on above: Result Comment: HCG [...] Performed By: #### B MP, GFR #### [place] [address] #### CBC, ADIFF, ANEU, HCGQ, ABOG #### [address] [address] PREGUon 02-12-2021 HCG ( test) Ql (U) Positive Normal [facility] ([place]) Comment on above: Performed By: #### U A, PREGU #### [address] [address] test (u) int Detected Invalid Interpretation Code [facility] ([place]) Comment on above: Performed By: #### U A, PREGU #### [address] [address] UAon 02-12-2021 Color (U) Yellow Normal [facility] ([place] Comment on above: Performed By: #### U A, PREGU #### [address] [address] Glucose (U) [Mass/Vol] Negative Normal Negative [facility] ([place]) Comment on above: Performed By: #### U A, PREGU #### [address] [address] Ketones Ql (U) 80 mg/dL Abnormal Negative [facility] ([place]) Comment on above: Performed By: #### U A, PREGU #### [address] [address] UA Appear Clear Normal Clear [facility] ([place]) Comment on above: Performed By: #### U A, PREGU #### [address] [address] UA Bili Small Abnormal Negative [facility] ([place]) Comment on above: Performed By: #### U A, PREGU #### [place] [phone] UA Blood Negative Normal Negative [facility] ([place] Comment on above: Performed By: #### U A, PREGU #### [place] [address] UA Leuk Est Negative Normal Negative [facility] ([place] Comment on above: Performed By: #### U A, PREGU #### [place] [address] UA Nitrite Negative Normal Negative [facility] ([place] Comment on above: Performed By: #### U A, PREGU #### [place] [address] UA pH 6.0 Normal 5.0 - 8.0 [facility] ([place] Comment on above: Performed By: #### U A, PREGU #### [place] [address] UA Protein Trace Normal Negative [facility] ([place] Comment on above: Performed By: #### U A, PREGU #### [place] [address] UA Spec Grav >=1.030 Abnormal 1.015-1.025 [facility] ([place]) Comment on above: Performed By: #### U A, PREGU #### [place] [address] UA Specimen Type Clean Catch Normal [facility] ([place]) Comment on above: Performed By: #### U A, PREGU #### [place] [address] UA Urobilinogen 0.2 E.U./dL Normal 0.2-1.0 [facility] ([place]) Comment on above: Performed By: #### U A, PREGU #### [place] [address] CBC and Differentialon 10-17 Abs Baso 0.04 k/uL Normal <0.11 [facility] Comment on above: Performed By: #### C BCDIF, BETAMM, CMP, LIPA #### [facility] [address] [place] [address] Abs [place] 0.64 k/uL Normal <0.87 [facility] Comment on above: Performed By: #### C BCDIF, BETAMM, CMP, LIPA #### [facility] [address] [place] [address] Abs Neut 4.48 k/uL Normal 1.45-7.50 [facility] Comment on above: Performed By: #### C BCDIF, BETAMM, CMP, LIPA #### [facility] [address] [place] [address] Basophils/100 WBC (Bld) 0.5 % Normal [facility] Comment on above: Performed By: #### C BCDIF, BETAMM, CMP, LIPA #### [facility] [address] [place] [address] Eosinophils #/vol (Bld) 0.26 10*3/uL Normal <0.46 [facility] Comment on above: Performed By: #### C BCDIF, BETAMM, CMP, LIPA #### [facility] [address] [place] [address] Eosinophils/100 WBC (Bld) 3.4 % Normal [facility] Comment on above: Performed By: #### C BCDIF, BETAMM, CMP, LIPA #### [facility] [address] [place] [address] Erythrocyte distribution width Ratio (RBC) 13.1 % Normal 11.5-15.0 [facility] Comment on above: Performed By: #### C BCDIF, BETAMM, CMP, LIPA #### [facility] [address] [place] [address] Hematocrit Volume Fraction (Bld) 44.4 % Normal 36.0-46.0 [facility] Comment on above: Performed By: #### C BCDIF, BETAMM, CMP, LIPA #### [facility] [address] [place] [address] Hemoglobin mass conc (Bld) 14.8 g/dL Normal 11.5-15.5 [facility] Comment on above: Performed By: #### C BCDIF, BETAMM, CMP, LIPA #### [facility] [address] [place] [address] Lymphocytes #/vol (Bld) 2.28 10*3/uL Normal 1.00-4.00 [facility] Comment on above: Performed By: #### C BCDIF, BETAMM, CMP, LIPA #### [facility] [address] [place] [address] Lymphocytes/100 WBC (Bld) 29.6 % Normal [facility] Comment on above: Performed By: #### C BCDIF, BETAMM, CMP, LIPA #### [facility] [address] [place] [address] MCH Entitic mass (RBC) 30.4 pG Normal 26.0-34.[address] [facility] Comment on above: Performed By: #### C BCDIF, BETAMM, CMP, LIPA #### [facility] [address] [place] [address] MCHC mass conc (RBC) 33.3 g/dL Normal 30.5-36.0 [facility] Comment on above: Performed By: #### C BCDIF, BETAMM, CMP, LIPA #### [facility] [address] [place] [address] MCV Entitic volume (RBC) 91.2 fL Normal 80.0-100.0 [facility] Comment on above: Performed By: #### C BCDIF, BETAMM, CMP, LIPA #### [facility] [address] [place] [address] Monocytes/100 WBC (Bld) 8.3 % Normal [facility] Comment on above: Performed By: #### C BCDIF, BETAMM, CMP, LIPA #### [facility] [address] [place] [address] Neutrophils/100 WBC (Bld) 58.2 % Normal [facility] Comment on above: Performed By: #### C BCDIF, BETAMM, CMP, LIPA #### [facility] [address] [place] [address] Platelet mean volume Entitic volume (Bld) 10.7 fL Normal 9.0-12.7 [facility] Comment on above: Performed By: #### C BCDIF, BETAMM, CMP, LIPA #### [facility] [address] Platelets #/vol (Bld) 283 10*3/uL Normal 150-[address] [facility] Comment on above: Performed By: #### C BCDIF, BETAMM, CMP, LIPA #### [facility] [address] [place] [address] RBC #/vol (Bld) 4.87 10*6/uL Normal 3.90-5.20 [facility] Comment on above: Performed By: #### C BCDIF, BETAMM, CMP, LIPA #### [facility] [address] [place] [address] WBC #/vol (Bld) 7.70 10*3/uL Normal 3.70-11.00 [facility] Comment on above: Performed By: #### C BCDIF, BETAMM, CMP, LIPA #### [facility] [address] [place] [address] CT ABD/PEL W IVCONon 05-15-[address] ABD/PEL W IVCON * * *Final Report* * * DATE OF EXAM: Oct 17 2018 6:20PM [facility] 0530 - CT ABD/PEL W IVCON / [...] or pelvis. 2. Nonobstructing renal calculi bilaterally. Coupler: TONYA Transcribe Date/Time: Oct 17 2018 6:22P Dictated by : AG ALLAN MD This examination was interpreted and the report reviewed and electronically signed by: AG ALLAN MD on Oct 17 2018 6:35PM EST [id number] Normal [facility] Comp Metabolic Panelon 10-17 Albumin mass conc 4.0 g/dL Normal 3.9-4.9 [facility] Comment on above: Performed By: #### C BCDIF, BETAMM, CMP, LIPA #### [facility] [address] ALP enzyme act/vol 66 U/L Normal 34-123 [facility] Comment on above: Performed By: #### C BCDIF, BETAMM, CMP, LIPA #### [facility] [address] ALT enzyme act/vol 11 U/L Normal 7-38 [facility] Comment on above: Performed By: #### C BCDIF, BETAMM, CMP, LIPA #### [facility] [address] Anion gap molar conc 10 mmol/L Normal 9-18 [facility] Comment on above: Performed By: #### C BCDIF, BETAMM, CMP, LIPA #### [facility] [address] AST enzyme act/vol 14 U/L Normal 13-35 [facility] Comment on above: Performed By: #### C BCDIF, BETAMM, CMP, LIPA #### [facility] [address] Bilirubin mass conc 0.5 mg/dL Normal 0.2-1.3 [facility] Comment on above: Performed By: #### C BCDIF, BETAMM, CMP, LIPA #### [facility] [address] [place] [phone] Calcium mass conc 8.8 mg/dL Normal 8.5-10.2 [facility] Comment on above: Performed By: #### C BCDIF, BETAMM, CMP, LIPA #### [facility] [address] [place] [address] Chloride molar conc 104 mmol/L Normal 97-105 [facility] Comment on above: Performed By: #### C BCDIF, BETAMM, CMP, LIPA #### [facility] [address] CO2 molar conc 22 mmol/L Normal 22-30 [facility] Comment on above: Performed By: #### C BCDIF, BETAMM, CMP, LIPA #### [facility] [address] [place], [place] [id number] Creatinine mass conc 0.83 mg/dL Normal 0.58-0.96 [facility] Comment on above: Performed By: #### C BCDIF, BETAMM, CMP, LIPA #### [facility] [address] [place] [address] eGFR- Amer. >60 Normal [facility] Comment on above: Performed By: #### C BCDIF, BETAMM, CMP, LIPA #### [facility] [address] [place], [place] [id number] GFR/1.73 sq M predicted among non-blacks MDRD vol rate/area (S/P/Bld) mL/min/{1.73_m2} Normal [facility] Comment on above: Result Comment: eGFR [...] #### C BCDIF, BETAMM, CMP, LIPA #### [facility] 1000 [facility] [phone] Glucose mass conc 99 mg/dL Normal 74-99 [facility] Comment on above: Result Comment: The [place] [employer] (ADA) provides guidance for cutoff [...] Standards of Medical Care in Diabetes 2016, [place] [employer]. Diabetes Care. 2016.39(Suppl 1). Performed By: #### C BCDIF, BETAMM, CMP, LIPA #### [facility] [address] [place] [address] Potassium molar conc 3.9 mmol/L Normal 3.7-5.1 [facility] Comment on above: Performed By: #### C BCDIF, BETAMM, CMP, LIPA #### [facility] [address] [facility] [phone] Protein mass conc 7.5 g/dL Normal 6.3-8.0 [facility] Comment on above: Performed By: #### C BCDIF, BETAMM, CMP, LIPA #### [facility] [address] [facility] [phone] Sodium molar conc 136 mmol/L Normal 136-144 [facility] Comment on above: Performed By: #### C BCDIF, BETAMM, CMP, LIPA #### [facility] [address] [facility] [phone] Urea nitrogen mass conc 10 mg/dL Normal 12-23 [facility] Comment on above: Performed By: #### C BCDIF, BETAMM, CMP, LIPA #### [facility] [address] [facility] [phone] ED NOTEon 10-17-2018 ED NOTE HNO ID: [id number] Author: Elba RecinosRnTigre Nguyen RN Service: ? Author Type: Registered Nurse Type: ED Notes Filed: 10/17/2018 7:10 PM Note Text: Pt was ambulatory with her discharge [facility] ED NOTE HNO ID: [id number] Author: Elba RecinosRn) MICHAEL Nguyen Service: ? Author Type: Registered Nurse Type: ED Notes Filed: 10/17/2018 7:08 PM Note Text: Pt was discharged home and will follow up with her family medical dr as per needed [facility] ED NOTE HNO ID: [id number] Author: Elba Nguyen RN Service: ? Author Type: Registered Nurse Type: ED Notes Filed: 10/17/2018 7:00 PM Note Text: viktor pa has rounded [facility] ED NOTE HNO ID: [id number] Author: Elba Nguyen RN Service: ? Author Type: Registered Nurse Type: ED Notes Filed: 10/17/2018 5:56 PM Note Text: Pt report was received Pt is in a position of comfort [facility] ED NOTE HNO ID: [id number] Author: Charleen RecinosRnTigre Clifton RN Service: ? [...] weight loss over the last two months [facility] ED PROV NOTEon 10-17-2018 Protein mass conc HNO ID: [id number] Author: Viktor Smith ([place]) Service: Emergency Medicine Author Type: Physician Glove Operator Type: ED Provider Notes Filed: 10/17/2018 6:56 PM Note Text: ED Provider Note Patient Name: Que Her SERVICE DATE: 10/17/18 History Patient presents with: [...] PVC (premature ventricular contraction) 09/18/2015 - Seizures ([facility]) - Syncope PAST SURGICAL HISTORY Procedure Laterality Date - COLONOSCOP W/ OR W/O [facility] SPEC 11/21/2013 Colonoscopy AND EGD - COLONOSCOP W/ OR W/O [facility] SPEC 07/20/2017 Colonoscopy - EGD W/O OR W/BRUSH/WASH 07/20/2017 EGD - EGD W/O OR W/BRUSH/WASH 08/08/2018 EGD - LAPAROSCOPIC CHOLEYCYSTECTOMY 09/14/2009 - LEEP PROCEDURE ([facility] DEPT)_*[place] 09/09/2015 - SVT ABLATION 05/2015 procedure [...] or pelvis. 2. Nonobstructing renal calculi bilaterally. Coupler: PSCB Transcribe Date/Time: Oct 17 2018 6:22P [...] Abs Lymph 2.28 1.00 - 4.00 k/uL [place]% 8.3 % Abs [place] 0.64 <0.87 k/uL Eosin% 3.4 % Abs [...] Negative Negative Ketones, Urine Negative Negative Specific [place], Ur 1.015 1.001 - 1.029 Hemoglobin/Blood,Ur Negative [...] in writing to patient (patient guardian / ambulatory service representative), who verbalized understanding. This note was partially generated using [employer] voice recognition system, and there may be some incorrect words, spellings, and punctuation that were not noted in checking the note before saving SIGNATURE: ADIA Workman (Pa) 10/17/18 1856 Normal [facility] Lipaseon 10-17-2018 Lipase enzyme act/vol 35 U/L Normal 16-61 [facility] Comment on above: Performed By: #### C BCDIF, BETAMM, CMP, LIPA ####[facility] [address] [place] [address] Serum Beta HCG [facility]///[place] D/SL/LO 10-17-2018 HCG.beta subunit Qn Negative Normal Negative [facility] Comment on above: Result Comment: Fals e positives and false negatives are rare but have been described. Clinical correlation of the findings is recommended. Performed By: #### C BCDIF, BETAMM, CMP, LIPA #### [facility] [address] [address] Urinalysison 10-17-2018 Bilirubin, Urine Negative Normal Negative [facility] Comment on above: Performed By: #### U A ####[facility] [address] [place] [address] Clarity Nom (U) Clear Normal Clear [facility] Comment on above: Performed By: #### U A ####[facility] [address] [place] [address] Color Nom (U) Yellow Normal Yellow [facility] Comment on above: Performed By: #### U A ####[facility] [address] [place] [address] Glucose Ql (U) Negative Normal Negative [facility] Comment on above: Performed By: #### U A ####[facility] [address] [place] [address] Hemoglobin/Blood,Ur Negative Normal Negative [facility] Comment on above: Performed By: #### U A ####[facility] [address] [place] [address] Ketones Ql (U) Negative Normal Negative [facility] Comment on above: Performed By: #### U A ####[facility] [address] [place] [address] Leukest Negative Normal Negative [facility] Comment on above: Performed By: #### U A ####[facility] [address] [place] [address] Nitrite Ql (U) Negative Normal Negative [facility] Comment on above: Performed By: #### U A ####[facility] [address] [place] [address] pH (Bld) 6.5 Normal 5.0-8.0 [facility] Comment on above: Performed By: #### U A ####[place] [address] Protein mass conc (U) Negative Normal Negative [facility] Comment on above: Performed By: #### U A ####[address] [place] [address] Specific [place], Ur 1.015 Normal 1.001-1.029 [facility] Comment on above: Performed By: #### U A ####[address] [address] Urobilinogen Qn (U) 0.2 Normal 0.2-1.0 [facility] Comment on above: Performed By: #### U A ####[place] [address] Basic Metabolic Panelon 09-03 Calcium mass conc 9.5 mg/dL Normal 8.4-10.4 [facility] [facility] Comment on above: Performed By: #### H ADAMS BMP3 #### [employer] [address] [place] [address] Glucose mass conc 92 mg/dL Normal 70-100 [facility] Comment on above: Performed By: #### H EMDF, BMP3 #### [employer] [facility] [address] [place] [address] Urea nitrogen mass conc 13 mg/dL Normal 7-20 [facility] Comment on above: Performed By: #### H ADAMS, BMP3 #### [facility] [address] [place] [address] Anion gap molar conc [address] [facility] Comment on above: Performed By: #### H ADAMS, BMP3 #### [facility] [address] [place] [address] CO2 molar conc 25 mmol/L Normal 22-30 [facility] Comment on above: Performed By: #### H ADAMS BMP3 #### [facility] [address] [place] [address] Creatinine mass conc 0.74 mg/dL Normal 0.52-1.[address] [facility] Comment on above: Performed By: #### H ADAMS BMP3 #### [facility] [address] [place] [address] GFR/1.73 sq M predicted among blacks MDRD vol rate/area (S/P/Bld) mL/min/{1.73_m2} Normal >60 [facility] Comment on above: Performed By: #### H ADAMS BMP3 #### [facility] [address] [place] [address] GFR/1.73 sq M predicted among non-blacks MDRD vol rate/area (S/P/Bld) mL/min/{1.73_m2} Normal >60 [facility] Comment on above: Result Comment: Sour ce- MDRD equation with creatinine calibration to IDMS(NKDEP) eGFR not recommended for drug dose adjustment Performed By: #### H ADAMS BMP3 #### [facility] [address] [place] [address] Potassium molar conc 3.6 mmol/L Normal 3.5-5.[address] [facility] Comment on above: Performed By: #### H ADAMS BMP3 #### [facility] [address] [place] [address] Chloride molar conc 106 mmol/L Normal 98-107 [facility] Comment on above: Performed By: #### H ADAMS BMP3 #### [facility] [address] [place] [address] Sodium molar conc 139 mmol/L Normal 135-145 [facility] Comment on above: Performed By: #### H EMDF, BMP3 #### [facility] [address] [place] [address] HCG,Urine Qualon 09-18-2018 HCG.beta subunit ( test) Ql (U) Negative Normal Negative [facility] Comment on above: Result Comment: Preg fallon is the most common reason for HCG in urine, although choriocarcinoma, hydatidiform mole, and certain nontropho- blastic malignancies also result in detectable urinary HCG levels. Sensitivity = 20mIU/mL. Performed By: #### H CGUR, UAMAC, UAMIC #### [facility] [address] [place] [address] Hemogram w/ Autodiffon 09-18 Abs Baso Cnt 0.0 10*3/uL Normal 0.0-0.2 [facility] Comment on above: Performed By: #### H EMDF, BMP3 #### [facility] [address] [place] [address] Abs Neutrophile Cnt 4.9 10*3/uL Normal 1.8-7.[address] [facility] Comment on above: Performed By: #### H EMDF, BMP3 #### [facility] [address] [place] [address] Basophils/100 WBC (Bld) 0.6 % Normal 0.0-2.0 [facility] Comment on above: Performed By: #### H EMDF, BMP3 #### [facility] [address] [place] [address] Eosinophils #/vol (Bld) 0.1 10*3/uL Normal 0.0-0.5 [facility] Comment on above: Performed By: #### H EMDF, BMP3 #### [facility] [address] [place] [address] Eosinophils/100 WBC (Bld) 1.4 % Normal 1.0-6.0 [facility] Comment on above: Performed By: #### H EMDF, BMP3 #### [facility] [address] [place] [address] Erythrocyte distribution width Ratio (RBC) 13.5 % Normal 11.5-14.5 [facility] Comment on above: Performed By: #### H EMDF, BMP3 #### [facility] [address] [place] [address] Granulocytes/100 WBC (Bld) 63.0 % Normal 40.0-80.0 [facility] Comment on above: Performed By: #### H EMDF, BMP3 #### [facility] [address] [place] [address] Hematocrit Volume Fraction (Bld) 39.8 % Normal 35.0-47.0 [facility] Comment on above: Performed By: #### H EMDF, BMP3 #### [facility] [address] [place] [address] Hemoglobin mass conc (Bld) 13.6 g/dL Normal 11.7-16.0 [facility] Comment on above: Performed By: #### H EMDF, BMP3 #### [facility] [address] [place] [address] Lymphocytes #/vol (Bld) 2.2 10*3/uL Normal 1.0-4.3 [facility] Comment on above: Performed By: #### H EMDF, BMP3 #### [facility] [address] [place] [address] Lymphocytes/100 WBC (Bld) 27.6 % Normal 20.0-40.0 [facility] Comment on above: Performed By: #### H EMDF, BMP3 #### [facility] [address] [place] [address] MCH Entitic mass (RBC) 30.9 pg Normal 26.0-34.0 [facility] Comment on above: Performed By: #### H EMDF, BMP3 #### [facility] [address] [place] [address] MCHC mass conc (RBC) 34.3 % Normal 32.0-36.[address] [facility] Comment on above: Performed By: #### H EMDF, BMP3 #### [facility] [address] [place] [address] MCV Entitic volume (RBC) 90.0 fL Normal 79.0-98.0 [facility] Comment on above: Performed By: #### H EMDF, BMP3 #### [facility] [address] [place] [address] Monocytes #/vol (Bld) 0.6 10*3/uL Normal 0.0-0.8 [facility] Comment on above: Performed By: #### H EMDF, BMP3 #### [facility] [address] [place] [address] Monocytes/100 WBC (Bld) 7.4 % Normal 2.0-10.0 [facility] Comment on above: Performed By: #### H EMDF, BMP3 #### [facility] [address] [place] [address] Platelet mean volume Entitic volume (Bld) 8.1 fL Normal 7.4-10.4 [facility] Comment on above: Performed By: #### H EMDF, BMP3 #### [facility] [address] [place] [address] Platelets #/vol (Bld) 296 10*3/uL Normal 140-440 [facility] Comment on above: Performed By: #### H EMDF, BMP3 #### [facility] [address] [place] [address] RBC #/vol (Bld) 4.42 10*6/uL Normal 3.80-5.20 [facility] Comment on above: Performed By: #### H EMDF, BMP3 #### [facility] [address] [place] [address] WBC #/vol (Bld) 7.8 10*3/uL Normal 3.6-10.7 [facility] Comment on above: Performed By: #### H EMDF, BMP3 #### [facility] [address] [place] [address] Urinalysis,Macroon 9 Appearance Nom (U) CLEAR Normal Clear [facility] Comment on above: Performed By: #### H EMDF, CMP3, LIPA4 #### [facility] [address] [place] [address] Bilirubin,Ur Positive Normal Negative [facility] Comment on above: Performed By: #### H EMDF, CMP3, LIPA4 #### [facility] [address] [place] [address] Color Nom (U) YELLOW Normal Lt. Yellow [facility] Comment on above: Performed By: #### H EMDF, CMP3, LIPA4 #### [facility] [address] [place] [address] Glucose Ql (U) Negative Normal Negative [facility] Comment on above: Performed By: #### H EMDF, CMP3, LIPA4 #### [facility] [address] [place] [address] Ketone,Urine TRACE Normal Negative [facility] Comment on above: Performed By: #### H EMDF, CMP3, LIPA4 #### [facility] [address] [place] [address] Nitrite Ql (U) Negative Normal Negative [facility] Comment on above: Performed By: #### H EMDF, CMP3, LIPA4 #### [facility] [address] [place] [address] Occult Blood,Ur Negative Normal Negative [facility] Comment on above: Performed By: #### H EMDF, CMP3, LIPA4 #### [facility] [address] [place] [address] pH (U) 6.0 Normal 5.0-8.0 [facility] Comment on above: Performed By: #### H EMDF, CMP3, LIPA4 #### [facility] [address] [place] [address] Protein mass conc (U) TRACE Normal Negative [facility] Comment on above: Performed By: #### H EMDF, CMP3, LIPA4 #### [facility] [address] [place] [address] Specific [place],Urine 1.025 Normal 1.005-1.030 [facility] Comment on above: Performed By: #### H EMDF, CMP3, LIPA4 #### [facility] [address] [place] [address] Urobilinogen Qn (U) 1.0 mg/dL Normal 0-1 [facility] Comment on above: Performed By: #### H EMDF, CMP3, LIPA4 #### [facility] [address] [place] [address] WBC #/vol (Bld) Negative Normal Negative [facility] Comment on above: Performed By: #### H EMDF, CMP3, LIPA4 #### [facility] [address] [place] [address] Urinalysis,Microscopicon Bacteria LM.HPF #/area (Urine sed) Few (1-5) Normal Negative [facility] Comment on above: Performed By: #### H EMDF, CMP3, LIPA4 #### [facility] [address] [place] [address] Cast, Hyaline 3 - 5 Normal 0-1 [facility] Comment on above: Performed By: #### H EMDF, CMP3, LIPA4 #### [facility] [address] [place] [address] Epithelial cells LM.HPF #/area (Urine sed) 0 - 2 Normal 3-5 [facility] Comment on above: Performed By: #### H EMDF, CMP3, LIPA4 #### [facility] [address] [place] [address] Mucous Threads Moderate Normal Negative [facility] Comment on above: Performed By: #### H EMDF, CMP3, LIPA4 #### [facility] [address] [place] [address] RBC LM.HPF #/area (Urine sed) 0 - 2 Normal 0-2 [facility] Comment on above: Performed By: #### H EMDF, CMP3, LIPA4 #### [facility] [address] [place] [address] WBC LM.HPF #/area (Urine sed) 0 - 2 Normal 0-5 [facility] Comment on above: Performed By: #### H EMDF, CMP3, LIPA4 #### [facility] [address] [place] [address] BMPon 09-01-2018 Anion gap molar conc 12 mmol/L 10 - 20 mmol/L [facility] Calcium mass conc 8.3 mg/dL Low 8.4 - 10.2 mg/dL [facility] Chloride molar conc 110 mmol/L High 98 - 108 mmol/L [facility] Creatinine mass conc 1.13 mg/dL High 0.4 - 1 .1 mg/dL [facility] GFR/1.73 sq M predicted among non-blacks MDRD vol rate/area (S/P/Bld) The eGFR should be used for monitoring renal function only and not for medication dosing. [facility] GFR/1.73 sq M.predicted CKD-EPI vol rate/area (S/P/Bld) 66 >=60 mL/min/1.73 m2 [facility] Glucose mass conc 78 mg/dL 65 - 99 mg/dL [facility] HCO3 molar conc 22 mmol/L 21 - 32 mmol/L [facility] Potassium molar conc 3.4 mmol/L Low 3.5 - 5 .1 mmol/L [facility] Sodium molar conc 141 mmol/L 135 - 145 mmol/L [facility] Urea nitrogen mass conc 7 mg/dL Low 8 - 25 mg/dL [facility] Urea nitrogen/Creatinine mass ratio 6.2 mg/mg Low [facility] CBC WITH AUTO DIFFERENTIALon 09-01-2018 Basophils #/vol (Bld) 0.04 10*3/uL [facility] Basophils/100 WBC (Bld) 0.3 % [facility] Eosinophils #/vol (Bld) 0.12 10*3/uL [facility] Eosinophils/100 WBC (Bld) 0.9 % [facility] Erythrocyte distribution width Entitic volume (RBC) 13.3 % 11.6 - 14.8 % [facility] Hematocrit Volume Fraction (Bld) 38.6 % 36 - 46 % [facility] Hemoglobin mass conc (Bld) 12.9 g/dL 12 - 16 g/dL [facility] Immature granulocytes #/vol (Bld) 0.05 10*3/uL [facility] Immature granulocytes/100 WBC (Bld) 0.40 % [facility] Comment on above: The IG parameter is the percentage of metamyelocytes, myelocytes, and promyelocytes. Interpretation and review of laboratory results Abnormal [facility] Lymphocytes #/vol (Bld) 2.10 10*3/uL [facility] Lymphocytes/100 WBC (Bld) 16.4 % [facility] MCH Entitic mass (RBC) 30.1 pg 26 - 34 pg [facility] MCHC mass conc (RBC) 33.4 g/dL 31 - 37 g/dL [facility] MCV Entitic volume (RBC) 90.2 fL 80 - 100 fL [facility] Monocytes #/vol (Bld) 1.27 10*3/uL High [facility] Monocytes/100 WBC (Bld) 9.9 % [facility] Neutrophils #/vol (Bld) 9.22 10*3/uL High [facility] Neutrophils/100 WBC (Bld) 72.1 % [facility] Nucleated RBC #/vol (Bld) 0.00 10*3/uL [facility] Nucleated RBC/100 WBC Ratio (Bld) 0.0 % [facility] Platelet mean volume Entitic volume (Bld) 10.8 fL 9 - 15.5 fL [facility] Platelets #/vol (Bld) 226 10*3/[facility]L [facility] RBC #/vol (Bld) 4.28 10*6/uL [facility] lth WBC #/vol (Bld) 12.80 10*3/uL High [facility] alth CT KIDNEY STONEon 09-01-2018 Ulxe-yz-adbgnird left-sided hydroureteronephrosis secondary to an obstructing 3 mm very distal left ureteral calculus. [employer] Workstation ID: [id number] [facility] EXAMINATION: CT KIDN EY STONE HISTORY: [...] No abdominal/pelvic lymphadenopathy is present. There is sqtq-ur-ymwqirlx left-sided hydroureteronephrosis secondary to an obstructing 3 [...] device. No pelvic free fluid is evident. [facility] Interface, Rad In Cole ji Speechq - 09/01/2018 9:28 PM EDT [...] No abdominal/pelvic lymphadenopathy is present. There is zifr-vp-riknqklc left-sided hydroureteronephrosis secondary to an obstructing 3 [...] No pelvic free fluid is evident. IMPRESSION: Yibc-go-ihqrysse left-sided hydroureteronephrosis secondary to an obstructing 3 mm very distal left ureteral calculus. [employer] Workstation ID: [id number] [facility] Hepatic Function Panel (LFT) on 09-01-2018 Albumin mass conc 3.2 g/dL 3.2 - 5.2 g/dL [facility] ALP enzyme act/vol 56 U/L 40 - 140 U/L [facility] ALT enzyme act/vol 22 U/L 14 - 65 U/L [facility]alth AST enzyme act/vol 16 U/L 0 - 45 U/L [facility] alth Bilirubin mass conc 0.9 mg/dL 0 - 1.3 mg/dL [facility] Bilirubin.conjugated mass conc 0.2 mg/dL 0 - 0.4 mg/dL [facility] Interpretation and review of laboratory results Normal [facility] Protein mass conc 6.9 g/dL 6 - 8 g/dL [facility] Lipaseon 09-01-2018 Lipase enzyme act/vol 60 U/L Low 73 - 393 U/L [facility] Otheron 09-01-2018 Extra Tube Hold for add-ons. [facility] Comment on above: Auto resulted. Interpretation and review of laboratory results Abnormal [facility] URINALYSISon 09-01-2018 Bacteria Auto Ql (U) None Seen None Se en /hpf [facility] Bilirubin Ql (U) Negative Negative [facility] th Clarity Refractometry automated Nom (U) Clear Clear [facility] Color Nom (U) Yellow Colorless, Yellow [facility] Epithelial cells.squamous Auto #/area (Urine sed) <1 [facility] Glucose Automated test strip mass conc (U) Negative Negative mg/dL [facility] Hemoglobin Automated test strip Ql (U) Negative Negative [facility] Interpretation and review of laboratory results Abnormal [facility] Ketones mass conc (U) >=80 Abnormal Negati ve mg/dL [facility] Leukocyte esterase Automated test strip Ql (U) Negative Negative [facility] Mucus Auto #/area (Urine sed) Rare None Seen, Rare /lpf [facility] Nitrite Automated test strip Ql (U) Negative Negative [facility] pH (U) 5.0 [pH] [facility] Protein mass conc (U) 30 Abnormal Negati ve mg/dL [facility] Comment on above: False positive resul ts may occur in urines with large amounts of hemoglobin, pH greater than 8.0, contrast medium, or disinfectants including ammonium compounds. RBC Auto #/area (Urine sed) <1 [facility] Specific gravity Relative Density (U) 1.021 [facility] Urobilinogen mass conc (U) <2.0 <2.0 mg/dL [facility] WBC Auto #/area (Urine sed) 4 [facility] Microscopic examinat ion is performed on all urinalysis samples and only positive findings are reported. The test for blood on the chemical analytic portion of urinalysis may also be positive due to hemoglobinuria and myoglobinuria and if red blood cells are present they are quantified by microscopic examination. [facility] Urine Pregnancyon 09-01-2018 HCG ( test) Ql (U) Negative Negative [facility] Interpretation and review of laboratory results Normal [facility] US Pelvis TA/TVon 08-23-2018 US Pelvis TA/TV Patient Name: QUE HER Ultrasound Exam Date/Time 08/22/2018 22:02:00 EDT Exam US Pelvis TA/TV Ordering Physician PATRICK BUENO PETER J Accession Number [id number] CPT4 Codes 65207 (US Pelvis TA/TV), 30781 (US Transvaginal) Reason For Exam Right lower [...] Transcribed Date and Time: 08/22/2018 10:57 Normal [facility] [employer] [facility] Comp Metabolic Panelon 08-22 Calcium mass conc 9.3 mg/dL Normal 8.4-10.4 [facility] Comment on above: Performed By: #### H EMDF, CMP3, LIPA4 #### [facility] [address] [place] [address] ALP enzyme act/vol 58 U/L Normal 38-126 [facility] Comment on above: Performed By: #### H EMDF, CMP3, LIPA4 #### [facility] [address] [place] [address] ALT enzyme act/vol 25 U/L Normal 13-69 [facility] Comment on above: Performed By: #### H EMDF, CMP3, LIPA4 #### [facility] [address] [place] [address] Anion gap molar conc [address] [facility] Comment on above: Performed By: #### H EMDF, CMP3, LIPA4 #### [facility] [address] [place] [address] AST enzyme act/vol 12 U/L Low 15-46 [facility] Comment on above: Performed By: #### H EMDF, CMP3, LIPA4 #### [facility] [address] [place] [address] Bilirubin mass conc 0.6 mg/dL Normal 0.2-1.3 [facility] Comment on above: Performed By: #### H EMDF, CMP3, LIPA4 #### [facility] [address] [place] [address] CO2 molar conc 26 mmol/L Normal 22-30 [facility] Comment on above: Performed By: #### H EMDF, CMP3, LIPA4 #### [facility] [place] [address] [place] [address] Creatinine mass conc 1.10 mg/dL Normal 0.52-1.[address] [facility] Comment on above: Performed By: #### H EMDF, CMP3, LIPA4 #### [facility] [place] [address] [place] [address] GFR/1.73 sq M predicted among blacks MDRD vol rate/area (S/P/Bld) mL/min/{1.73_m2} Normal >60 [facility] [place] Comment on above: Performed By: #### H EMDF, CMP3, LIPA4 #### [facility] [place] [address] [place] [address] GFR/1.73 sq M predicted among non-blacks MDRD vol rate/area (S/P/Bld) 59.0 mL/min/{1.73_m2} Normal >60 [facility] [place] Comment on above: Result Comment: Sour ce- MDRD equation with creatinine calibration to IDMS(NKDEP) eGFR not recommended for drug dose adjustment Performed By: #### H EMDF, CMP3, LIPA4 #### [facility] [place] [address] [place] [address] Glucose mass conc 89 mg/dL Normal 70-100 [facility] Comment on above: Performed By: #### H EMDF, CMP3, LIPA4 #### [facility] [place] [address] [place] [address] Protein mass conc 6.8 g/dL Normal 6.3-8.2 [facility] Comment on above: Performed By: #### H EMDF, CMP3, LIPA4 #### [facility] [place] [address] [place] [address] Urea nitrogen mass conc 18 mg/dL Normal 7-20 [facility] [place] Comment on above: Performed By: #### H EMDF, CMP3, LIPA4 #### [facility] [place] [address] [place] [address] Potassium molar conc 3.9 mmol/L Normal 3.5-5.[address] [facility] Comment on above: Performed By: #### H EMDF, CMP3, LIPA4 #### [facility] [place] [address] [place] [address] Sodium molar conc 137 mmol/L Normal 135-145 [facility] Comment on above: Performed By: #### H EMDF, CMP3, LIPA4 #### [facility] [place] [address] [place] [address] Albumin mass conc 4.0 g/dL Normal 3.5-5.0 [facility] Comment on above: Performed By: #### H EMDF, CMP3, LIPA4 #### [facility] [place] [address] [place] [address] Chloride molar conc 103 mmol/L Normal 98-107 [facility] [place] Comment on above: Performed By: #### H EMDF, CMP3, LIPA4 #### [facility] [place] [address] [place] [address] HCG,Urine Qualon 08-22-2018 HCG.beta subunit ( test) Ql (U) Negative Normal Negative [facility] [place] Comment on above: Result Comment: Preg fallon is the most common reason for HCG in urine, although choriocarcinoma, hydatidiform mole, and certain nontropho- blastic malignancies also result in detectable urinary HCG levels. Sensitivity = 20mIU/mL. Performed By: #### U AMAC, UAMIC, HCGUR #### [facility] [place] [address] [place] [address] Hemogram w/ Autodiffon 08-22 Abs Baso Cnt 0.1 10*3/uL Normal 0.0-0.2 [facility] Comment on above: Performed By: #### H EMDF, CMP3, LIPA4 #### [facility] [place] [address] [place] [address] Abs Neutrophile Cnt 4.4 10*3/uL Normal 1.8-7.[address] [facility] Comment on above: Performed By: #### H EMDF, CMP3, LIPA4 #### [facility] [place] [address] [place] [address] Basophils/100 WBC (Bld) 0.8 % Normal 0.0-2.0 [facility] [place] Comment on above: Performed By: #### H EMDF, CMP3, LIPA4 #### [facility] [place] [address] [place] [address] Eosinophils #/vol (Bld) 0.2 10*3/uL Normal 0.0-0.5 [facility] [place] Comment on above: Performed By: #### H EMDF, CMP3, LIPA4 #### [facility] [place] [address] [place] [address] Eosinophils/100 WBC (Bld) 2.3 % Normal 1.0-6.0 [facility] [place] Comment on above: Performed By: #### H EMDF, CMP3, LIPA4 #### [facility] [place] [address] [place] [address] Erythrocyte distribution width Ratio (RBC) 13.1 % Normal 11.5-14.5 [facility] [place] Comment on above: Performed By: #### H EMDF, CMP3, LIPA4 #### [facility] [place] [address] [place] [address] Granulocytes/100 WBC (Bld) 50.3 % Normal 40.0-80.0 [facility] [place] Comment on above: Performed By: #### H EMDF, CMP3, LIPA4 #### [facility] [place] [address] [place] [address] Hematocrit Volume Fraction (Bld) 42.0 % Normal 35.0-47.0 [facility] [place] Comment on above: Performed By: #### H EMDF, CMP3, LIPA4 #### [facility] [place] [address] [place] [address] Hemoglobin mass conc (Bld) 14.4 g/dL Normal 11.7-16.0 [facility] [place] Comment on above: Performed By: #### H EMDF, CMP3, LIPA4 #### [facility] [place] [address] [place] [address] Lymphocytes #/vol (Bld) 3.3 10*3/uL Normal 1.0-4.3 [facility] [place] Comment on above: Performed By: #### H EMDF, CMP3, LIPA4 #### [facility] [place] [address] [place] [address] Lymphocytes/100 WBC (Bld) 37.7 % Normal 20.0-40.0 [facility] [place] Comment on above: Performed By: #### H EMDF, CMP3, LIPA4 #### [facility] [place] [address] [place] [address] MCH Entitic mass (RBC) 31.0 pg Normal 26.0-34.0 [facility] Comment on above: Performed By: #### H EMDF, CMP3, LIPA4 #### [facility] [place] [address] [place] [address] MCHC mass conc (RBC) 34.3 % Normal 32.0-36.[address] [facility] Comment on above: Performed By: #### H EMDF, CMP3, LIPA4 #### [facility] [place] [address] [place] [address] MCV Entitic volume (RBC) 90.3 fL Normal 79.0-98.0 [facility] [place] Comment on above: Performed By: #### H EMDF, CMP3, LIPA4 #### [facility] [place] [address] [place] [address] Monocytes #/vol (Bld) 0.8 10*3/uL Normal 0.0-0.8 [facility] Comment on above: Performed By: #### H EMDF, CMP3, LIPA4 #### [facility] [place] [address] [place] [address] Monocytes/100 WBC (Bld) 8.9 % Normal 2.0-10.0 [facility] [place] Comment on above: Performed By: #### H EMDF, CMP3, LIPA4 #### [facility] [place] [address] [place] [address] Platelet mean volume Entitic volume (Bld) 8.7 fL Normal 7.4-10.4 [facility] Comment on above: Performed By: #### H EMDF, CMP3, LIPA4 #### [facility] [place] [address] [place] [address] Platelets #/vol (Bld) 294 10*3/uL Normal 140-440 [facility] Comment on above: Performed By: #### H EMDF, CMP3, LIPA4 #### [facility] [place] [address] [place] [address] RBC #/vol (Bld) 4.65 10*6/uL Normal 3.80-5.20 [facility] Comment on above: Performed By: #### H EMDF, CMP3, LIPA4 #### [facility] [place] [address] [place] [address] WBC #/vol (Bld) 8.7 10*3/uL Normal 3.6-10.7 [facility] Comment on above: Performed By: #### H EMDF, CMP3, LIPA4 #### [facility] [place] [address] [place] [address] Lipaseon 08-22-2018 Lipase enzyme act/vol 114 U/L Normal 23-300 [facility] Comment on above: Performed By: #### H EMDF, CMP3, LIPA4 #### [facility] [place] [address] [place] [address] Urinalysis,Macroon 9 Appearance Nom (U) TURBID Normal Clear [facility] [place] Comment on above: Performed By: #### U AMAC, UAMIC, HCGUR #### [facility] [place] [address] [place] [address] Bilirubin,Ur Negative Normal Negative [facility] [place] Comment on above: Performed By: #### U AMAC, UAMIC, HCGUR #### [facility] [place] [address] [place] [address] Color Nom (U) YELLOW Normal Lt. Yellow [facility] Comment on above: Performed By: #### U AMAC, UAMIC, HCGUR #### [facility] [place] [address] [place] [address] Glucose Ql (U) Negative Normal Negative [facility] Comment on above: Performed By: #### U AMAC, UAMIC, HCGUR #### [facility] [place] [address] [place] [address] Ketone,Urine Negative Normal Negative [facility] [place] Comment on above: Performed By: #### U AMAC, UAMIC, HCGUR #### [facility] [place] [address] [place] [address] Nitrite Ql (U) Negative Normal Negative [facility] Comment on above: Performed By: #### U AMAC, UAMIC, HCGUR #### [facility] [place] [address] [place] [address] Occult Blood,Ur Negative Normal Negative [facility] Comment on above: Performed By: #### U AMAC, UAMIC, HCGUR #### [facility] [place] [address] [place] [address] pH (U) 7.5 Normal 5.0-8.0 [facility] [place] Comment on above: Performed By: #### U AMAC, UAMIC, HCGUR #### [facility] [place] [address] [place] [address] Protein mass conc (U) Negative Normal Negative [facility] Comment on above: Performed By: #### U AMAC, UAMIC, HCGUR #### [facility] [place] [address] [place] [address] Specific [place],Urine 1.021 Normal 1.005-1.030 [facility] Comment on above: Performed By: #### U AMAC, UAMIC, HCGUR #### [facility] [place] [address] [place] [address] Urobilinogen Qn (U) 0.2 mg/dL Normal 0-1 [facility] [place] Comment on above: Performed By: #### U AMAC, UAMIC, HCGUR #### [facility] [place] [address] [place] [address] WBC #/vol (Bld) Negative Normal Negative [facility] Comment on above: Performed By: #### U AMAC, UAMIC, HCGUR #### [facility] [place] [address] [place] [address] Urinalysis,Microscopicon Bacteria LM.HPF #/area (Urine sed) Negative Normal Negative [facility] [place] Comment on above: Performed By: #### U AMAC, UAMIC, HCGUR #### [facility] [place] [address] [place] [address] Cast, Hyaline 2 /[LPF] Normal 0-1 [facility] Comment on above: Performed By: #### U AMAC, UAMIC, HCGUR #### [facility] [place] [address] [place] [address] Epithelial cells LM.HPF #/area (Urine sed) TRACE Normal 3-5 [facility] [place] Comment on above: Performed By: #### U AMAC, UAMIC, HCGUR #### [facility] [place] [address] [place] [address] RBC,Urine 2 /[HPF] Normal 0-2 [facility] [place] Comment on above: Performed By: #### U AMAC, UAMIC, HCGUR #### [facility] [place] [address] [place] [address] WBC,Urine 1 /[HPF] Normal 0-5 [facility] [place] Comment on above: Performed By: #### U AMAC, UAMIC, HCGUR #### [facility] [place] [address] [place] [address] ANES Negin 08-08-2018 ANES POST HNO ID: [id number] Author: Von Crenshaw MD Service: Anesthesiology Author [...] SIGNATURE: Von Crenshaw MD PATIENT NAME: Que Her DATE: August 08, 2018 TIME: 12:32 PM PAGER/CONTACT #: [facility] ANES PREOPon 08-08-2018 ANES PREOP HNO ID: [id number] Author: Von Crenshaw MD Service: Anesthesiology Author [...] Laterality Date - COLONOSCOP W/ OR W/O [facility] SPEC 11/21/2013 Colonoscopy AND EGD - COLONOSCOP W/ OR W/O [facility] SPEC 07/20/2017 Colonoscopy - EGD W/O OR W/BRUSH/WASH 07/20/2017 EGD - LAPAROSCOPIC CHOLEYCYSTECTOMY 09/14/2009 - LEEP PROCEDURE (OPTOMETRIST ASSISTANT DEPT)_*[place] 09/09/2015 - SVT ABLATION 05/2015 procedure [...] SIGNATURE: Von Crenshaw MD PATIENT NAME: Que Her DATE: August 08, 2018 TIME: 11:08 AM CSN: [id number] [facility] PT EDon 08-08-2018 PT ED HNO ID: [id number] Author: Maury (Rn) MICHAEL [place] Service: Nursing Author Type: Registered Nurse Type: Patient Education Filed: 08/08/2018 3:06 PM Note Text: PATIENT EDUCATION TOPIC: PROCEDURE / SURGERY: Post Procedure Teaching: PATIENT NAME: Que Her [place] TO [...] None Electronically Signed By: Maury [place] RN [facility] PT ED HNO ID: [id number] Author: Laura (Rn) MICHAEL Aguillon Service: ? [...] Laura Aguillon RN In Department: [facility] ENDOSCOPY [facility] SURGICAL PATHOLOGYon 019 SURGICAL PATHOLOGY Specimen originated from [facility] Specimen #: [id number] Submitting Physician: CHEYANNE TOURE MD FINAL DIAGNOSIS [...] Stomach, biopsy (D) - Helicobacter pylori gastritis. JEDonnell/miguel a 08/09/2018 COMMENT 1. There can be [...] in one cassette. Gross examination performed at [facility], [address] [place] [address] 08/08/2018 5:18:47 PM Date of Report: 08/09/2018 Date of Procedure: 08/08/2018 Date of Receipt: 08/08/2018 Submitted by: CHEYANNE TOURE MD Location: [place] Diagnostic interpretation performed at [facility], [address] [place] [address]. [facility] Comment on above: Performed By: #### P ATHS #### [facility] [address] [place] [address] [phone] HOSPon 07-25-2018 HOSP Patient:Que Her MRN: Height:5' 6.142(1.68 m) Weight:147 lb 11.3 [...] for the following basenames: K,HCT Progress Notes ([facility]): Estephania Kate LPN 08/07/2018 4:01 PM Signed Patient is [...] appropriate container from the lab in the [facility]. It's usually several samples that are needed. Lab can explain that to her. The EGD today will check for Hpylori. Anastasia Roman RN APRN.BROOM MAKER Estephania Kate LPN 08/08/2018 9:21 AM Signed Left a detailed message for patient with information listed below. Estephania Kate LPN Progress Notes ([facility]): Rhonda Gerber LPN 07/27/2018 11:54 [...] 07/27/2018 3:23 PM Signed Pt notified via [employer]. Yue Genao Ma [facility]: QUE HER [facility] DEPARTMENT REPORT Admit Date: 11/25/17 /Age: 11 1990// ED Physician: Kam Crandall DO Med Rec #: [id number] Of Present Illness- GeneralGeneral Complaints: Lower Extremity [...] Bactrim antibioticDisposition: HOME/SELF CARE ROUTINECondition: Stable 11/25/17 [id number]: 11/25/172125T: 11/25/172125Job #: [id number]: Normal [facility] Vital Signs Date Time Vital Sign Value Performing Clinician Facility 04-07-2025 23:06-0500 Body height 167.[address] Davide Chao MD Work Phone: 4(399)002-703741 [place] [address] 04-07-2025 23:06-0500 Body mass index (BMI) [Ratio] 29.8 kg/m2 Dr. Davide Chao MD Work Phone: 7(617)062-422619 [address] 04-07-2025 23:06-0500 Body temperature 97.8 [degF] Dr. Davide Chao MD Work Phone: 0(801)599-020541 [place] [address] 04-07-2025 23:06-0500 Body weight 83.[address] Davide Chao MD Work Phone: 3(239)053-065841 [place] [address] 04-07-2025 23:06-0500 Diastolic blood pressure 72 mm[Hg] Dr. Davide Chao MD Work Phone: 6(071)998-617541 [place] [address] 04-07-2025 23:06-0500 Heart rate 88 /min Dr. Davide Chao MD Work Phone: 2(569)506-283141 [place] [address] 04-07-2025 23:06-0500 Respiratory rate 18 /min Dr. Davide Chao MD Work Phone: [facility] 04-07-2025 23:06-0500 SaO2% (BldA) [Mass fraction] 99 % Dr. Davide Chao MD Work Phone: 9(832)590-329140 [place] [address] 04-07-2025 23:06-0500 Systolic blood pressure 114 mm[Hg] Dr. Davide Chao MD Work Phone: 1(555)579-068440 [place] [address] 03-26-2025 15:51-0400 Body temperature 98.2 [degF] Dr. Davide Chao MD Work Phone: 5(641)467-046040 [place] [address] 03-26-2025 15:51-0400 Diastolic blood pressure 71 mm[Hg] Dr. Davide Chao MD Work Phone: 4(074)237-937240 [place] [address] 03-26-2025 15:51-0400 Heart rate 82 /min Dr. Davide Chao MD Work Phone: 4(326)624-490340 [place] [address] 03-26-2025 15:51-0400 Respiratory rate 16 /min Dr. Davide Chao MD Work Phone: 3(902)448-513140 [place] [address] 03-26-2025 15:51-0400 SaO2% (BldA) [Mass fraction] 100 % Dr. Davide Chao MD Work Phone: 6(925)769-190940 [place] [address] 03-26-2025 15:51-0400 Systolic blood pressure 99 mm[Hg] Dr. Davide Chao MD Work Phone: 8(636)281-047640 [place] [address] 03-26-2025 13:10-0400 Body height 167.[address] Davide Chao MD Work Phone: 3(028)488-510940 [place] [address] 03-26-2025 13:10-0400 Body mass index (BMI) [Ratio] 30.3 kg/m2 Dr. Davide Chao MD Work Phone: 3(947)943-103340 [place] [address] 03-26-2025 13:10-0400 Body weight 85.[address] Davide Chao MD Work Phone: 4(222)257-663140 [place] [address] 03-26-2025 12:43-0400 Diastolic Blood Pressure Non-Invasive 66 mm[Hg] ANTONETTE HANNON MD [facility] 03-26-2025 12:43-0400 Heart rate 89 /min ANTONETTE HANNON MD [facility] 03-26-2025 12:43-0400 Respiratory rate 16 /min ANTONETTE HANNON MD [facility] 03-26-2025 12:43-0400 Systolic Blood Pressure Non-Invasive 99 mm[Hg] ANTONETTE HANNON MD [facility] 03-26-2025 12:07-0400 Body height 167.6 cm ANTONETTE HANNON MD [facility] 03-26-2025 12:07-0400 Body temperature 97.88 [degF] ANTONETTE HANNON MD [facility] 03-26-2025 12:07-0400 Body weight 81.8 kg ANTONETTE HANNON MD [facility] 03-26-2025 12:07-0400 Diastolic Blood Pressure Non-Invasive 68 mm[Hg] ANTONETTE HANNON MD [facility] 03-26-2025 12:07-0400 Heart rate 94 /min ANTONETTE HANNON MD [facility] 03-26-2025 12:07-0400 Respiratory rate 18 /min ANTONETTE HANNON MD [facility] 03-26-2025 12:07-0400 Systolic Blood Pressure Non-Invasive 100 mm[Hg] ANTONETTE HANNON MD [facility] 03-14-2025 15:32-0400 Body mass index (BMI) [Ratio] 29.3 kg/m2 Dr. Davide Chao MD Work Phone: [facility] 03-14-2025 15:32-0400 Body weight 82.[address] Davide Chao MD Work Phone: [facility] 03-14-2025 15:32-0400 Diastolic blood pressure 67 mm[Hg] Dr. Davide Chao MD Work Phone: [facility] 03-14-2025 15:32-0400 Heart rate 86 /min Dr. Davide Chao MD Work Phone: [facility] 03-14-2025 15:32-0400 Respiratory rate 18 /min Dr. Davide Chao MD Work Phone: [facility] 03-14-2025 15:32-0400 Systolic blood pressure 97 mm[Hg] Dr. Davide Chao MD Work Phone: [facility] 02-10-2025 15:14-0400 Body height 167.6 cm Katalina Cooper BEET END SUPERVISOR.CNM Work Phone: [facility] 02-10-2025 15:14-0400 Body mass index (BMI) [Ratio] 28.57 kg/m2 Katalina Cooper BEET END SUPERVISOR.CNM Work Phone: [facility] 02-10-2025 15:14-0400 Body weight 80.29 kg Katalina Cooper BEET END SUPERVISOR.CNM Work Phone: [facility] 02-10-2025 15:14-0400 Diastolic blood pressure 60 mm[Hg] Katalina Cooper BEET END SUPERVISOR.CNM Work Phone: [facility] 02-10-2025 15:14-0400 Systolic blood pressure 114 mm[Hg] Katalina Cooper BEET END SUPERVISOR.CNM Work Phone: [facility] 01-15-2025 11:14-0400 Body mass index (BMI) [Ratio] 28.44 kg/m2 Pam [place] MD Work Phone: [facility] 01-15-2025 11:14-0400 Body weight 79.92 kg Pam Robertson MD Work Phone: [facility] 01-15-2025 11:14-0400 Diastolic blood pressure 76 mm[Hg] Pam Robertson MD Work Phone: [facility] 01-15-2025 11:14-0400 Systolic blood pressure 124 mm[Hg] Pam Robertson MD Work Phone: [facility] 01-03-2025 15:35-0400 Body height 167.[address] Davide Chao MD Work Phone: [facility] 01-03-2025 15:35-0400 Body mass index (BMI) [Ratio] 28.5 kg/m2 Dr. Davide Chao MD Work Phone: 2(184)908-794240 [place] [address] 01-03-2025 15:35-0400 Body weight 80.[address] Davide Chao MD Work Phone: 6(599)097-686140 [place] [address] 01-03-2025 15:35-0400 Diastolic blood pressure 68 mm[Hg] Dr. Davide Chao MD Work Phone: 2(451)046-831740 [place] [address] 01-03-2025 15:35-0400 Systolic blood pressure 108 mm[Hg] Dr. Davide Chao MD Work Phone: 4(047)214-871940 [place] [address] 11-23-2024 22:29-0400 Body temperature 98.1 [degF] Dr. Davide Chao MD Work Phone: 9(616)435-427040 [place] [address] 11-23-2024 22:29-0400 Diastolic blood pressure 72 mm[Hg] Dr. Davide Chao MD Work Phone: 3(935)535-611740 [place] [address] 11-23-2024 22:29-0400 Heart rate 74 /min Dr. Davide Chao MD Work Phone: 6(539)721-086840 [place] [address] 11-23-2024 22:29-0400 Respiratory rate 23 /min Dr. Davide Chao MD Work Phone: 8(969)660-093340 [place] [address] 11-23-2024 22:29-0400 SaO2% (BldA) [Mass fraction] 97 % Dr. Davide Chao MD Work Phone: 8(715)127-855340 [place] [address] 11-23-2024 22:29-0400 Systolic blood pressure 97 mm[Hg] Dr. Davide Chao MD Work Phone: [facility] 11-23-2024 20:23-0400 Body height 167.[address] Davide Chao MD Work Phone: [facility] 11-23-2024 20:23-0400 Body mass index (BMI) [Ratio] 28.3 kg/m2 Dr. Davide Chao MD Work Phone: [facility] 11-23-2024 20:23-0400 Body weight 79.[address] Davide Chao MD Work Phone: 8(289)400-897226 [place] [address] 09-05-2024 07:06-0400 Body mass index (BMI) [Ratio] 27.44 kg/m2 Marina Ponce APRN.BROOM MAKER Work Phone: [facility] 09-05-2024 07:06-0400 Body weight 77.11 kg Marina Ponce APRN.BROOM MAKER Work Phone: [facility] 09-05-2024 07:06-0400 Diastolic blood pressure 71 mm[Hg] Marina Ponce APRN.BROOM MAKER Work Phone: [facility] 09-05-2024 07:06-0400 Systolic blood pressure 104 mm[Hg] Marina Ponce APRN.BROOM MAKER Work Phone: [facility] 08-19-2024 15:36-0400 Body height 167.[address] Davide Chao MD Work Phone: [facility] 08-19-2024 15:35-0400 Body mass index (BMI) [Ratio] 27.8 kg/m2 Dr. Davide Chao MD Work Phone: [facility] 08-19-2024 15:35-0400 Body weight 78.[address] Davide Chao MD Work Phone: [facility] 08-19-2024 15:35-0400 Diastolic blood pressure 79 mm[Hg] Dr. Davide Chao MD Work Phone: 4(717)453-401826 [place] [address] 08-19-2024 15:35-0400 Systolic blood pressure 115 mm[Hg] Dr. Davide Chao MD Work Phone: [facility] 06-10-2024 18:44-0500 Body mass index (BMI) [Ratio] 28.86 kg/m2 Davide Chao MD Work Phone: [facility] 06-10-2024 18:44-0500 Body weight 81.1 kg Davide Chao MD Work Phone: [facility] 06-10-2024 18:44-0500 Diastolic blood pressure 74 mm[Hg] Davide Chao MD Work Phone: [facility] 06-10-2024 18:44-0500 Heart rate 78 /min Davide Chao MD Work Phone: [facility] 06-10-2024 18:44-0500 Respiratory rate 16 /min Davide Chao MD Work Phone: [facility] 06-10-2024 18:44-0500 Systolic blood pressure 110 mm[Hg] Davide Chao MD Work Phone: [facility] 06-10-2024 13:57-0500 Body mass index (BMI) [Ratio] 28.4 kg/m2 Dr. Davide Chao MD Work Phone: [facility] 06-10-2024 13:57-0500 Body weight [address] Davide Chao MD Work Phone: 2(663)401-949641 [place] [address] 06-10-2024 13:57-0500 Diastolic blood pressure 74 mm[Hg] Dr. Davide Chao MD Work Phone: 0(959)195-800741 [place] [address] 06-10-2024 13:57-0500 Systolic blood pressure 112 mm[Hg] Dr. Davide Chao MD Work Phone: [facility] 03-22-2024 15:52-0400 Diastolic Blood Pressure Non-Invasive 74 mm[Hg] RAMON PULLIAM MD [facility] 03-22-2024 15:52-0400 Heart rate 85 /min RAMON PULLIAM MD [facility] 03-22-2024 15:52-0400 Respiratory rate 16 /min RAMON PULILAM MD [facility] 03-22-2024 15:52-0400 Systolic Blood Pressure Non-Invasive 101 mm[Hg] RAMON PULLIAM MD [facility] 03-22-2024 15:37-0400 Diastolic Blood Pressure Non-Invasive 74 mm[Hg] RAMON PULLIAM MD [facility] 03-22-2024 15:37-0400 Heart rate 88 /min RAMON PULLIAM MD [facility] 03-22-2024 15:37-0400 Respiratory rate 18 /min RAMON PULLIAM MD [facility] 03-22-2024 15:37-0400 Systolic Blood Pressure Non-Invasive 98 mm[Hg] RAMON PULLIAM MD [facility] 03-22-2024 15:08-0400 Diastolic Blood Pressure Non-Invasive 73 mm[Hg] RAMON PULLIAM MD [facility] 03-22-2024 15:08-0400 Heart rate 78 /min RAMON PULLIAM MD [facility] 03-22-2024 15:08-0400 Respiratory rate 20 /min RAMON PULLIAM MD [facility] 03-22-2024 15:08-0400 Systolic Blood Pressure Non-Invasive 100 mm[Hg] RAMON PULLIAM MD [facility] 03-22-2024 14:32-0400 Body height 167.6 cm RAMON PULLIAM MD [facility] 03-22-2024 14:32-0400 Body temperature 97.88 [degF] RAMON PULLIAM MD [facility] 03-22-2024 14:32-0400 Body weight 81.8 kg RAMON PULLIAM MD [facility] 03-22-2024 14:32-0400 Heart rate 106 /min RAMON PULLIAM MD [facility] 10-17-2023 11:55-0400 Body mass index (BMI) [Ratio] 28.18 kg/m2 Sophie Bogner PA-C Work Phone: [facility] 10-17-2023 11:55-0400 Body weight 79.2 kg Sophie Bogner PA-C Work Phone: [facility] 10-17-2023 11:55-0400 Diastolic blood pressure 62 mm[Hg] Sophie Bogner PA-C Work Phone: [facility] 10-17-2023 11:55-0400 Heart rate 94 /min Sophie Bogner PA-C Work Phone: [facility] 10-17-2023 11:55-0400 Respiratory rate 16 /min Sophie Bogner PA-C Work Phone: [facility] 10-17-2023 11:55-0400 SaO2% (BldA) [Mass fraction] 98 % Sophie Bogner PA-C Work Phone: [facility] 10-17-2023 11:55-0400 Systolic blood pressure 89 mm[Hg] Sophie Bogner PA-C Work Phone: [facility] 10-03-2023 08:30-0400 Body temperature 96.7 [degF] Dr. Davide Chao Work Phone: 6(388)868-915241 [place] [address] 10-03-2023 08:30-0400 Diastolic blood pressure 65 mm[Hg] Dr. Davide Chao Work Phone: 1(057)845-601740 [place] [address] 10-03-2023 08:30-0400 Heart rate 83 /min Dr. Davide Chao Work Phone: 3(372)326-869840 [place] [address] 10-03-2023 08:30-0400 Respiratory rate 16 /min Dr. Davide Chao Work Phone: 3(224)800-971640 [place] [address] 10-03-2023 08:30-0400 SaO2% (BldA) [Mass fraction] 100 % Dr. Davide Chao Work Phone: 8(077)505-260640 [place] [address] 10-03-2023 08:30-0400 Systolic blood pressure 92 mm[Hg] Dr. Davide Chao Work Phone: 7(254)816-344540 [place] [address] 10-03-2023 06:24-0400 Body height 167.[address] Davide Chao Work Phone: 5(946)744-956940 [place] [address] 10-03-2023 06:24-0400 Body mass index (BMI) [Ratio] 28 kg/m2 Dr. Davide Chao Work Phone: 3(968)401-550240 [place] [address] 10-03-2023 06:24-0400 Body weight 78.[address] Davide Chao Work Phone: 4(203)686-465840 [place] [address] 09-04-2023 08:12-0400 Body mass index (BMI) [Ratio] 28.2 kg/m2 Dr. Davide Chao Work Phone: 1(621)559-379940 [place] [address] 09-04-2023 08:12-0400 Body weight 79.[address] Davide Chao Work Phone: 8(226)600-733740 [place] [address] 09-04-2023 08:12-0400 Diastolic blood pressure 65 mm[Hg] Dr. Davide Chao Work Phone: 5(079)204-183040 [place] [address] 09-04-2023 08:12-0400 Systolic blood pressure 94 mm[Hg] Dr. Davide Chao Work Phone: [facility] 08-10-2023 11:38-0500 Body temperature 97.39 [degF] Roberto Andrea [employer] Work Phone: [facility] 08-10-2023 11:38-0500 Body weight 77.6 kg Roberto Andrea [employer] SUPERVISOR[employer] Work Phone: [facility] 08-10-2023 11:38-0500 Diastolic blood pressure 76 mm[Hg] Roberto King [employer] SUPERVISOR[employer] Work Phone: [facility] 08-10-2023 11:38-0500 Heart rate 82 /min Roberto Andrea [employer] END SUPERVISOR[employer] Work Phone: [facility] 08-10-2023 11:38-0500 Respiratory rate 18 /min Roberto Andrea [employer] END SUPERVISOR[employer] Work Phone: [facility] 08-10-2023 11:38-0500 SaO2% (BldA) [Mass fraction] 99 % Roberto Andrea [employer] END SUPERVISOR[employer] Work Phone: [facility] 08-10-2023 11:38-0500 Systolic blood pressure 105 mm[Hg] Roberto Andrea [employer] END SUPERVISOR[employer] Work Phone: [facility] 06-28-2023 13:38-0500 Body height 167.[address] Davide Chao Work Phone: [facility] 06-28-2023 13:29-0500 Body mass index (BMI) [Ratio] 27 kg/m2 Dr. Davide Chao Work Phone: [facility] 06-28-2023 13:29-0500 Body weight 75.[address] Davide Chao Work Phone: [facility] 06-28-2023 13:29-0500 Diastolic blood pressure 62 mm[Hg] Dr. Davide Chao Work Phone: [facility] 06-28-2023 13:29-0500 Systolic blood pressure 96 mm[Hg] Dr. Davide Chao Work Phone: [facility] 06-07-2023 00:38-0500 Diastolic blood pressure 78 mm[Hg] Son Gunderson MD Work Phone: [facility] 06-07-2023 00:38-0500 Heart rate 63 /min Son Gunderson MD Work Phone: [facility] 06-07-2023 00:38-0500 Respiratory rate 18 /min Son Gunderson MD Work Phone: [facility] 06-07-2023 00:38-0500 SaO2% (BldA) [Mass fraction] 97 % Son Gunderson MD Work Phone: [facility] 06-07-2023 00:38-0500 Systolic blood pressure 128 mm[Hg] Son Gunderson MD Work Phone: [facility] 06-06-2023 22:28-0500 Body height 167.6 cm Son Gunderson MD Work Phone: [facility] 06-06-2023 22:28-0500 Body mass index (BMI) [Ratio] 25.82 kg/m2 Son Gunderson MD Work Phone: [facility] 06-06-2023 22:28-0500 Body temperature 96.1 [degF] Son Gunderson MD Work Phone: [facility] 06-06-2023 22:28-0500 Body weight 72.58 kg Son Gunderson MD Work Phone: [facility] 03-18-2023 03:50-0400 Diastolic blood pressure 57 mm[Hg] Dr. Davide Chao Work Phone: [facility] 03-18-2023 03:50-0400 Heart rate 64 /min Dr. Davide Chao Work Phone: [facility] 03-18-2023 03:50-0400 Systolic blood pressure 109 mm[Hg] Dr. Davide Chao Work Phone: [facility] 03-18-2023 01:35-0400 Body height 167.[address] Davide Chao Work Phone: [facility] 03-18-2023 01:35-0400 Body mass index (BMI) [Ratio] 28.2 kg/m2 Dr. Davide Chao Work Phone: [facility] 03-18-2023 01:35-0400 Body weight 79.[address] Davide Chao Work Phone: [facility] 03-18-2023 01:32-0400 SaO2% (BldA) [Mass fraction] 98 % Dr. Davide Chao Work Phone: [facility] 03-13-2023 20:01-0400 Diastolic blood pressure 89 mm[Hg] Edy Orellana MD Work Phone: [facility] 03-13-2023 20:01-0400 Heart rate 63 /min Edy Orellana MD Work Phone: [facility] 03-13-2023 20:01-0400 Respiratory rate 16 /min Edy Orellana MD Work Phone: [facility] 03-13-2023 20:01-0400 SaO2% (BldA) [Mass fraction] 97 % Edy Orellana MD Work Phone: [facility] 03-13-2023 20:01-0400 Systolic blood pressure 133 mm[Hg] Edy Orellana MD Work Phone: [facility] 03-13-2023 16:40-0400 Body height 167.6 cm Edy Orellana MD Work Phone: [facility] 03-13-2023 16:40-0400 Body mass index (BMI) [Ratio] 27.44 kg/m2 Edy Orellana MD Work Phone: [facility] 03-13-2023 16:40-0400 Body temperature 98.4 [degF] Edy Orellana MD Work Phone: [facility] 03-13-2023 16:40-0400 Body weight 77.11 kg Edy Orellana MD Work Phone: [facility] 03-11-2023 12:00-0400 Body temperature 98 [degF] Dr. Davide Chao Work Phone: 3(192)935-623740 [place] [address] 03-11-2023 12:00-0400 Diastolic blood pressure 74 mm[Hg] Dr. Davide Chao Work Phone: 4(583)407-151940 [place] [address] 03-11-2023 12:00-0400 Heart rate 67 /min Dr. Davide Chao Work Phone: 9(706)658-399440 [place] [address] 03-11-2023 12:00-0400 Respiratory rate 16 /min Dr. Davide Chao Work Phone: 3(269)941-473240 [place] [address] 03-11-2023 12:00-0400 SaO2% (BldA) [Mass fraction] 99 % Dr. Davide Chao Work Phone: 9(631)319-398740 [place] [address] 03-11-2023 12:00-0400 Systolic blood pressure 117 mm[Hg] Dr. Davide Chao Work Phone: 1(038)718-875840 [place] [address] 03-09-2023 17:37-0400 Body mass index (BMI) [Ratio] 31.4 kg/m2 Dr. Davide Chao Work Phone: 8(220)746-994340 [place] [address] 03-09-2023 17:37-0400 Body weight 88.[address] Davide Chao Work Phone: 4(244)564-743740 [place] [address] 03-09-2023 10:31-0400 Body mass index (BMI) [Ratio] 31.3 kg/m2 Dr. Davide Chao Work Phone: 2(408)315-985440 [place] [address] 03-09-2023 10:31-0400 Body weight 87.[address] Davide Chao Work Phone: 3(034)618-820640 [place] [address] 03-08-2023 05:22-0400 Body mass index (BMI) [Ratio] 31.4 kg/m2 Dr. Davide Chao Work Phone: 3(920)716-694619 [address] 03-08-2023 05:22-0400 Body weight 88.[address] Davide Chao Work Phone: 9(151)528-197440 [place] [address] 03-08-2023 04:50-0400 Body temperature 97.6 [degF] Dr. Davide Chao Work Phone: 0(579)053-254640 [place] [address] 03-08-2023 04:50-0400 Diastolic blood pressure 76 mm[Hg] Dr. Davide Chao Work Phone: 7(424)995-823840 [place] [address] 03-08-2023 04:50-0400 Heart rate 100 /min Dr. Davide Chao Work Phone: 9(349)362-656740 [place] [address] 03-08-2023 04:50-0400 SaO2% (BldA) [Mass fraction] 100 % Dr. Davide Chao Work Phone: 8(563)029-967040 [place] [address] 03-08-2023 04:50-0400 Systolic blood pressure 107 mm[Hg] Dr. Davide Chao Work Phone: 1(485)476-660140 [place] [address] 03-04-2023 09:34-0400 Body height 167.[address] Davide Chao Work Phone: 7(163)569-474840 [place] [address] 03-04-2023 09:34-0400 Body mass index (BMI) [Ratio] 31.4 kg/m2 Dr. Davide Chao Work Phone: 7(736)695-246540 [place] [address] 03-04-2023 09:34-0400 Body weight 88.[address] Davide Chao Work Phone: 9(848)848-968340 [place] [address] 03-04-2023 09:28-0400 Body temperature 97.7 [degF] Dr. Davide Chao Work Phone: 0(887)364-724640 [place] [address] 03-04-2023 09:27-0400 Diastolic blood pressure 69 mm[Hg] Dr. Davide Chao Work Phone: 1(273)178-718840 [place] [address] 03-04-2023 09:27-0400 Heart rate 99 /min Dr. Davide Chao Work Phone: [facility] 03-04-2023 09:27-0400 Systolic blood pressure 106 mm[Hg] Dr. Davide Chao Work Phone: 3(496)939-236919 [address] 03-04-2023 07:47-0400 Diastolic blood pressure 70 mm[Hg] Dr. Davide Chao Work Phone: 6(392)895-185440 [place] [address] 03-04-2023 07:47-0400 Heart rate 74 /min Dr. Davide Chao Work Phone: 6(699)336-579840 [place] [address] 03-04-2023 07:47-0400 Systolic blood pressure 122 mm[Hg] Dr. Davide Chao Work Phone: 5(056)129-471540 [place] [address] 03-04-2023 07:46-0400 Body temperature 97.6 [degF] Dr. Davide Chao Work Phone: 5(720)974-018740 [place] [address] 03-04-2023 07:46-0400 SaO2% (BldA) [Mass fraction] 100 % Dr. Davide Chao Work Phone: 5(942)933-028340 [place] [address] 03-04-2023 04:00-0400 Body mass index (BMI) [Ratio] 31.1 kg/m2 Dr. Davide Chao Work Phone: 4(796)875-119340 [place] [address] 03-04-2023 04:00-0400 Body weight 87.[address] Davide Chao Work Phone: 0(427)593-572640 [place] [address] 03-01-2023 20:19-0400 Body mass index (BMI) [Ratio] 30.6 kg/m2 Dr. Davide Chao Work Phone: 0(163)284-906740 [place] [address] 03-01-2023 20:19-0400 Body weight [address] Davide Chao Work Phone: 7(343)221-455440 [place] [address] 03-01-2023 20:10-0400 Diastolic blood pressure 64 mm[Hg] Dr. Davide Chao Work Phone: 5(276)897-131041 [place] [address] 03-01-2023 20:10-0400 Heart rate 105 /min Dr. Davide Chao Work Phone: 5(893)178-850741 [place] [address] 03-01-2023 20:10-0400 Systolic blood pressure 103 mm[Hg] Dr. Davide Chao Work Phone: 0(669)703-452940 [place] [address] 03-01-2023 20:07-0400 SaO2% (BldA) [Mass fraction] 99 % Dr. Davide Chao Work Phone: 4(001)916-971540 [place] [address] 02-28-2023 15:37-0400 Body mass index (BMI) [Ratio] 30.7 kg/m2 Dr. Davide Chao Work Phone: 4(896)642-352140 [place] [address] 02-28-2023 15:37-0400 Body weight 86.[address] Davide Chao Work Phone: 9(986)651-580140 [place] [address] 02-28-2023 15:37-0400 Diastolic blood pressure 70 mm[Hg] Dr. Davide Chao Work Phone: 3(896)513-282140 [place] [address] 02-28-2023 15:37-0400 Systolic blood pressure 102 mm[Hg] Dr. Davide Chao Work Phone: 4(612)647-169240 [place] [address] 02-18-2023 14:35-0400 Body height 167.[address] Davide Chao Work Phone: 6(307)412-445640 [place] [address] 02-18-2023 14:35-0400 Body mass index (BMI) [Ratio] 30 kg/m2 Dr. Davide Chao Work Phone: 5(595)065-883140 [place] [address] 02-18-2023 14:35-0400 Body weight 84.[address] Davide Chao Work Phone: 9(137)357-998140 [place] [address] 02-18-2023 08:48-0400 Diastolic blood pressure 66 mm[Hg] Dr. Davide Chao Work Phone: 9(429)834-110940 [place] [address] 02-18-2023 08:48-0400 Heart rate 80 /min Dr. Davide Chao Work Phone: 3(263)062-497340 [place] [address] 02-18-2023 08:48-0400 Systolic blood pressure 107 mm[Hg] Dr. Davide Chao Work Phone: 2(575)319-087340 [place] [address] 02-18-2023 07:25-0400 SaO2% (BldA) [Mass fraction] 98 % Dr. Davide Chao Work Phone: 4(221)872-878940 [place] [address] 02-17-2023 15:47-0400 Body height 165.[address] Davide Chao Work Phone: 9(212)687-439640 [place] [address] 02-17-2023 15:45-0400 Body mass index (BMI) [Ratio] 31.1 kg/m2 Dr. Davide Chao Work Phone: 8(469)248-098040 [place] [address] 02-17-2023 15:45-0400 Body weight 84.[address] Davide Chao Work Phone: 9(867)367-966840 [place] [address] 02-17-2023 15:45-0400 Diastolic blood pressure 80 mm[Hg] Dr. Davide Chao Work Phone: 2(144)614-835940 [place] [address] 02-17-2023 15:45-0400 Systolic blood pressure 110 mm[Hg] Dr. Davide Chao Work Phone: 4(064)833-138040 [place] [address] 02-02-2023 15:58-0400 Body mass index (BMI) [Ratio] 31.1 kg/m2 Dr. Davide Chao Work Phone: 8(936)098-218440 [place] [address] 02-02-2023 15:58-0400 Body weight 85.[address] Davide Chao Work Phone: 2(006)360-053240 [place] [address] 02-02-2023 15:58-0400 Diastolic blood pressure 72 mm[Hg] Dr. Davide Chao Work Phone: 0(267)328-318840 [place] [address] 02-02-2023 15:58-0400 Systolic blood pressure 110 mm[Hg] Dr. Davide Chao Work Phone: 8(891)339-642340 [place] [address] 02-01-2023 09:45-0400 Body temperature 97.3 [degF] Dr. Davide Chao Work Phone: 8(750)137-580740 [place] [address] 02-01-2023 09:45-0400 Diastolic blood pressure 73 mm[Hg] Dr. Davide Chao Work Phone: 0(158)136-609219 [address] 02-01-2023 09:45-0400 Heart rate 93 /min Dr. Davide Chao Work Phone: 0(037)581-833340 [place] [address] 02-01-2023 09:45-0400 Respiratory rate 17 /min Dr. Davide Chao Work Phone: 4(838)180-064640 [place] [address] 02-01-2023 09:45-0400 SaO2% (BldA) [Mass fraction] 99 % Dr. Davide Chao Work Phone: 3(888)693-235740 [place] [address] 02-01-2023 09:45-0400 Systolic blood pressure 106 mm[Hg] Dr. Davide Chao Work Phone: 2(669)300-435840 [place] [address] 01-30-2023 18:40-0400 Body temperature 97.8 [degF] Dr. Davide Chao Work Phone: 5(558)458-142840 [place] [address] 01-30-2023 18:40-0400 Diastolic blood pressure 68 mm[Hg] Dr. Davide Chao Work Phone: 4(952)597-215240 [place] [address] 01-30-2023 18:40-0400 Heart rate 76 /min Dr. Davide Chao Work Phone: 1(668)549-135240 [place] [address] 01-30-2023 18:40-0400 Systolic blood pressure 119 mm[Hg] Dr. Davide Chao Work Phone: 1(395)119-105740 [place] [address] 01-30-2023 14:15-0400 Body height 165.[address] Davide Chao Work Phone: 3(354)120-911140 [place] [address] 01-30-2023 14:15-0400 Body mass index (BMI) [Ratio] 30.8 kg/m2 Dr. Davide Chao Work Phone: 9(662)415-773840 [place] [address] 01-30-2023 14:15-0400 Body weight [address] Davide Chao Work Phone: 5(940)186-221340 [place] [address] 01-30-2023 14:12-0400 Body temperature 96.8 [degF] Dr. Davide Chao Work Phone: 6(720)791-843340 [place] [address] 01-30-2023 14:12-0400 Diastolic blood pressure 65 mm[Hg] Dr. Davide Chao Work Phone: 9(541)377-312840 [place] [address] 01-30-2023 14:12-0400 Heart rate 101 /min Dr. Davide Chao Work Phone: 9(508)077-282940 [place] [address] 01-30-2023 14:12-0400 Systolic blood pressure 119 mm[Hg] Dr. Davide Chao Work Phone: 7(030)764-157740 [place] [address] 01-23-2023 22:36-0400 Diastolic blood pressure 79 mm[Hg] Dr. Davide Chao Work Phone: 0(502)628-739140 [place] [address] 01-23-2023 22:36-0400 Heart rate 82 /min Dr. Davide Chao Work Phone: 9(943)407-713240 [place] [address] 01-23-2023 22:36-0400 Respiratory rate 18 /min Dr. Davide Chao Work Phone: 4(567)824-173940 [place] [address] 01-23-2023 22:36-0400 SaO2% (BldA) [Mass fraction] 100 % Dr. Davide Chao Work Phone: 4(529)473-426040 [place] [address] 01-23-2023 22:36-0400 Systolic blood pressure 117 mm[Hg] Dr. Davide Chao Work Phone: 9(654)932-996440 [place] [address] 01-23-2023 19:52-0400 Body height 167.[address] Davide Chao Work Phone: 7(651)852-246240 [place] [address] 01-23-2023 19:52-0400 Body mass index (BMI) [Ratio] 30.2 kg/m2 Dr. Davide Chao Work Phone: 8(427)154-847940 [place] [address] 01-23-2023 19:52-0400 Body temperature 97.2 [degF] Dr. Davide Chao Work Phone: 9(500)937-857040 [place] [address] 01-23-2023 19:52-0400 Body weight 84.[address] Davide Chao Work Phone: 7(338)244-642940 [place] [address] 01-16-2023 19:57-0400 Diastolic blood pressure 54 mm[Hg] Dr. Davide Chao Work Phone: 9(662)026-849840 [place] [address] 01-16-2023 19:57-0400 Heart rate 94 /min Dr. Davide Chao Work Phone: 1(032)272-091540 [place] [address] 01-16-2023 19:57-0400 SaO2% (BldA) [Mass fraction] 99 % Dr. Davide Chao Work Phone: 9(698)626-347340 [place] [address] 01-16-2023 19:57-0400 Systolic blood pressure 96 mm[Hg] Dr. Davide Chao Work Phone: 2(592)217-890440 [place] [address] 01-16-2023 19:56-0400 Body temperature 97.8 [degF] Dr. Davide Chao Work Phone: 9(240)892-533840 [place] [address] 01-16-2023 16:48-0400 Body mass index (BMI) [Ratio] 30.5 kg/m2 Dr. Davide Chao Work Phone: 4(706)792-030440 [place] [address] 01-16-2023 16:48-0400 Body weight 85.[address] Davide Chao Work Phone: 6(663)147-959240 [place] [address] 01-16-2023 15:24-0400 Body mass index (BMI) [Ratio] 30.7 kg/m2 Dr. Davide Chao Work Phone: 1(199)448-310840 [place] [address] 01-16-2023 15:24-0400 Body weight 86.[address] Davide Chao Work Phone: 9(083)493-742040 [place] [address] 12-21-2022 11:19-0400 Body mass index (BMI) [Ratio] 29.4 kg/m2 Dr. Davide Chao Work Phone: 8(815)859-562940 [place] [address] 12-21-2022 11:19-0400 Body weight 82.[address] Davide Chao Work Phone: 1(159)168-651440 [place] [address] 12-21-2022 11:19-0400 Diastolic blood pressure 70 mm[Hg] Dr. Davide Chao Work Phone: [facility] 12-21-2022 11:19-0400 Systolic blood pressure 110 mm[Hg] Dr. Davide Chao Work Phone: 5(373)840-104241 [place] [address] 11-25-2022 09:26-0400 Body mass index (BMI) [Ratio] 28.3 kg/m2 Dr. Davide Chao Work Phone: 3(341)914-839419 [address] 11-25-2022 09:26-0400 Body weight 79.[address] Davide Chao Work Phone: 5(607)622-788119 [address] 11-25-2022 09:26-0400 Diastolic blood pressure 65 mm[Hg] Dr. Davide Chao Work Phone: 8(691)988-238340 [place] [address] 11-25-2022 09:26-0400 Systolic blood pressure 98 mm[Hg] Dr. Davide Chao Work Phone: 8(957)295-264640 [place] [address] 11-11-2022 00:19-0400 Body height 167.4 cm Andry Rueda MD Work Phone: [facility] 11-11-2022 00:19-0400 Body mass index (BMI) [Ratio] 27.83 kg/m2 Andry Rueda MD Work Phone: [facility] 11-11-2022 00:19-0400 Body weight 78 kg Andry Rueda MD Work Phone: [facility] 10-28-2022 09:23-0400 Body height 167.[address] Davide Chao Work Phone: [facility] 10-28-2022 09:16-0400 Body mass index (BMI) [Ratio] 27.4 kg/m2 Dr. Davide Chao Work Phone: 6(393)161-269419 [address] 10-28-2022 09:16-0400 Body weight 77.[address] Davide Chao Work Phone: [phone] [address] 10-28-2022 09:16-0400 Diastolic blood pressure 73 mm[Hg] Dr. Davide Chao Work Phone: [facility] 10-28-2022 09:16-0400 Systolic blood pressure 106 mm[Hg] Dr. Davide Chao Work Phone: [facility] 09-28-2022 08:06-0400 Body height 167.[address] Davide Chao Work Phone: [facility] 09-28-2022 08:06-0400 Body mass index (BMI) [Ratio] 26.8 kg/m2 Dr. Davide Chao Work Phone: [facility] 09-28-2022 08:06-0400 Body weight 75.[address] Davide Chao Work Phone: [facility] 09-28-2022 08:06-0400 Diastolic blood pressure 71 mm[Hg] Dr. Davide Chao Work Phone: [facility] 09-28-2022 08:06-0400 Systolic blood pressure 104 mm[Hg] Dr. Davide Chao Work Phone: [facility] 09-11-2022 23:47-0400 Diastolic blood pressure 62 mm[Hg] Davide Chao Other Phone: [facility] 09-11-2022 23:47-0400 Heart rate 85 /min Davide Chao Other Phone: [facility] 09-11-2022 23:47-0400 Respiratory rate 15 /min Davide Chao Other Phone: [facility] 09-11-2022 23:47-0400 SaO2% (BldA) [Mass fraction] 100 % Davide Chao Other Phone: [facility] 09-11-2022 23:47-0400 Systolic blood pressure 95 mm[Hg] Davide Chao Other Phone: [facility] 09-11-2022 22:56-0400 Body height 167.6 cm Davide Chao Other Phone: [facility] 09-11-2022 22:56-0400 Body weight 72.7 kg Davide Chao Other Phone: [facility] 08-17-2022 13:25-0400 Body height 167.[address] Davide Chao Work Phone: [facility] 08-17-2022 13:24-0400 Body mass index (BMI) [Ratio] 26.4 kg/m2 Dr. Davide Chao Work Phone: [facility] 08-17-2022 13:24-0400 Body weight 74.[address] Davide Chao Work Phone: [facility] 08-17-2022 13:24-0400 Diastolic blood pressure 70 mm[Hg] Dr. Davide Chao Work Phone: [facility] 08-17-2022 13:24-0400 Systolic blood pressure 105 mm[Hg] Dr. Davide Chao Work Phone: [facility] 07-29-2022 15:16-0500 Body height 167.[address] Davide Chao Work Phone: [facility] 07-29-2022 15:16-0500 Body mass index (BMI) [Ratio] 26.9 kg/m2 Dr. Davide Chao Work Phone: [facility] 07-29-2022 15:16-0500 Body weight 75.[address] Davide Chao Work Phone: [facility] 07-29-2022 15:16-0500 Diastolic blood pressure 72 mm[Hg] Dr. Davide Chao Work Phone: [facility] 07-29-2022 15:16-0500 Systolic blood pressure 104 mm[Hg] Dr. Davide Chao Work Phone: [facility] 07-13-2022 23:15-0500 Diastolic blood pressure 71 mm[Hg] Nery Esparza MD Work Phone: [facility] 07-13-2022 23:15-0500 SaO2% (BldA) [Mass fraction] 100 % Nery Esparza MD Work Phone: [facility] 07-13-2022 23:15-0500 Systolic blood pressure 105 mm[Hg] Nery Esparza MD Work Phone: [facility] 07-13-2022 22:57-0500 Body height 167.6 cm Nery Esparza MD Work Phone: [facility] 07-13-2022 22:57-0500 Body mass index (BMI) [Ratio] 27.07 kg/m2 Nery Esparza MD Work Phone: [facility] 07-13-2022 22:57-0500 Body temperature 98.2 [degF] Nery Esparza MD Work Phone: [facility] 07-13-2022 22:57-0500 Body weight 76.07 kg Nery Esparza MD Work Phone: [facility] 07-13-2022 22:57-0500 Heart rate 96 /min Nery Esparza MD Work Phone: [facility] 07-13-2022 22:57-0500 Respiratory rate 18 /min Nery Esparza MD Work Phone: [facility] 11-21-2021 09:11-0400 Body mass index (BMI) [Ratio] 27.12 kg/m2 Mireya Gagnon CNP Work Phone: [facility] 11-21-2021 09:11-0400 Body temperature 98.4 [degF] Mireya Gagnon CNP Work Phone: [facility] 11-21-2021 09:11-0400 Body weight 76.2 kg Mireya Gagnon CNP Work Phone: [facility] 11-21-2021 09:11-0400 Diastolic blood pressure 70 mm[Hg] Mireya Gagnon CNP Work Phone: [facility] 11-21-2021 09:11-0400 Heart rate 86 /min Mireya Gagnon CNP Work Phone: [facility] 11-21-2021 09:11-0400 Respiratory rate 14 /min Mireya Gagnon CNP Work Phone: [facility] 11-21-2021 09:11-0400 SaO2% (BldA) [Mass fraction] 97 % Mireya Gagnon CNP Work Phone: [facility] 11-21-2021 09:11-0400 Systolic blood pressure 99 mm[Hg] Mireya Gagnon CNP Work Phone: [facility] 11-16-2021 13:58-0400 Body height 167.64 cm Davide Reny [employer] Work Phone: [employer] Work Phone: 11-16-2021 13:58-0400 Body mass index (BMI) [Ratio] 28.43 kg/m2 Davide Reny [employer] Work Phone: [employer] Work Phone: 11-16-2021 13:58-0400 Body surface area Derived from formula 1.9 m2 Davide Reny [employer] Work Phone: [employer] Work Phone: 11-16-2021 13:58-0400 Body weight 79.9 kg Davide Reny [employer] Work Phone: [employer] Work Phone: 11-16-2021 13:58-0400 Diastolic blood pressure 64 mm[Hg] Davide Reny [employer] Work Phone: [employer] Work Phone: 11-16-2021 13:58-0400 Systolic blood pressure 110 mm[Hg] Davide Oglesby [employer] Work Phone: [employer] Work Phone: 10-14-2021 15:28-0400 Body temperature 97.88 [degF] Davide Chao Other Phone: [facility] 10-14-2021 15:28-0400 Diastolic blood pressure 71 mm[Hg] Davide Chao Other Phone: [facility] 10-14-2021 15:28-0400 Heart rate 79 /min Davide Chao Other Phone: [facility] 10-14-2021 15:28-0400 Respiratory rate 16 /min Davide Chao Other Phone: [facility] 10-14-2021 15:28-0400 SaO2% (BldA) [Mass fraction] 99 % Davide Chao Other Phone: [facility] 10-14-2021 15:28-0400 Systolic blood pressure 118 mm[Hg] Davide Chao Other Phone: [facility] 10-08-2021 10:24-0400 Body height 167.64 cm Davide [employer] Work Phone: [employer] Work Phone: 10-08-2021 10:24-0400 Body mass index (BMI) [Ratio] 31.24 kg/m2 Davide [employer] Work Phone: [employer] Work Phone: 10-08-2021 10:24-0400 Body surface area Derived from formula 1.97 m2 Davide [employer] Work Phone: [employer] Work Phone: 10-08-2021 10:24-0400 Body weight 87.8 kg Davide [employer] Work Phone: [employer] Work Phone: 10-08-2021 10:24-0400 Diastolic blood pressure 64 mm[Hg] Davide [employer] Work Phone: [employer] Work Phone: 10-08-2021 10:24-0400 Systolic blood pressure 104 mm[Hg] Davide D [employer] Work Phone: [employer] [place] [address] [place] Work Phone: 10-01-2021 11:25-0400 Body height 167.64 cm Davide D [employer] Work Phone: [employer] [place] [address] [place] Work Phone: 10-01-2021 11:25-0400 Body mass index (BMI) [Ratio] 31.06 kg/m2 Davide D [employer] Work Phone: [employer] [place] [address] [place] Work Phone: 10-01-2021 11:25-0400 Body surface area Derived from formula 1.97 m2 Davide Oglesby [employer] Work Phone: [place] [address] [place] Work Phone: 10-01-2021 11:25-0400 Body weight 87.3 kg Davide [employer] Work Phone: [place] [address] [place] Work Phone: 10-01-2021 11:25-0400 Diastolic blood pressure 62 mm[Hg] Davide D [employer] Work Phone: [place] [address] [place] Work Phone: 10-01-2021 11:25-0400 Systolic blood pressure 102 mm[Hg] Davide D [employer] Work Phone: [employer] [place] [address] [place] Work Phone: 09-24-2021 11:14-0400 Body height 167.64 cm Davide D [employer] Work Phone: [place] [address] [place] Work Phone: 09-24-2021 11:14-0400 Body mass index (BMI) [Ratio] 30.53 kg/m2 Davide D [employer] Work Phone: [place] [address] [facility] [facility] Work Phone: 09-24-2021 11:14-0400 Body surface area Derived from formula 1.95 m2 Davide D [employer] Work Phone: [place] [address] [place] Work Phone: 09-24-2021 11:14-0400 Body weight 85.79 kg Davide D [employer] Work Phone: [place] [address] [place] Work Phone: 09-24-2021 11:14-0400 Diastolic blood pressure 80 mm[Hg] Davide D [employer] Work Phone: [place] [address] [facility] Work Phone: 09-24-2021 11:14-0400 Systolic blood pressure 110 mm[Hg] Davide D [employer] Work Phone: [place] [address] [facility] Work Phone: 09-17-2021 11:35-0400 Body height 167.64 cm Davide D [employer] Work Phone: [place] [facility] [address] [facility] Work Phone: 09-17-2021 11:35-0400 Body mass index (BMI) [Ratio] 30.21 kg/m2 Davide D [employer] Work Phone: [place] [address] [facility] Work Phone: 09-17-2021 11:35-0400 Body surface area Derived from formula 1.94 m2 Davide D [employer] Work Phone: [place] [address] [place] Work Phone: 09-17-2021 11:35-0400 Body weight 84.9 kg Davide D [employer] Work Phone: [place] [address] [place] Work Phone: 09-17-2021 11:35-0400 Diastolic blood pressure 66 mm[Hg] Davide D [employer] Work Phone: [employer] [place] [address] [facility] Work Phone: 09-17-2021 11:35-0400 Systolic blood pressure 108 mm[Hg] Davide D [employer] Work Phone: [employer] [facility] [employer] Work Phone: 09-10-2021 10:59-0400 Body height 167.64 cm Davide D [employer] Work Phone: [employer] [place] [address] [facility] Work Phone: 09-10-2021 10:59-0400 Body mass index (BMI) [Ratio] 30.1 kg/m2 Davide D [employer] Work Phone: [employer] [facility] [employer] Work Phone: 09-10-2021 10:59-0400 Body surface area Derived from formula 1.94 m2 Davide D [employer] Work Phone: [employer] [place] [address] [facility] Work Phone: 09-10-2021 10:59-0400 Body weight 84.6 kg Davide D [employer] Phone: [employer] [place] [address] [facility] Work Phone: 09-10-2021 10:59-0400 Diastolic blood pressure 62 mm[Hg] Davide D [employer] Work Phone: [place] [address] [facility] Work Phone: 09-10-2021 10:59-0400 Systolic blood pressure 110 mm[Hg] Davide D [employer] Work Phone: [place] [address] [facility] Work Phone: 08-27-2021 11:23-0400 Body height 167.64 cm Davide D [employer] Work Phone: [place] [address] [facility] Work Phone: 08-27-2021 11:23-0400 Body mass index (BMI) [Ratio] 30.04 kg/m2 Davide Oglesby [employer] Work Phone: [employer] Work Phone: 08-27-2021 11:23-0400 Body surface area Derived from formula 1.94 m2 Davide Oglesby [employer] Work Phone: [employer] [facility] [place] Work Phone: 08-27-2021 11:23-0400 Body weight 84.43 kg Davide Oglesby [employer] Work Phone: [employer] Work Phone: 08-27-2021 11:23-0400 Diastolic blood pressure 78 mm[Hg] Davide Oglesby [employer] Work Phone: [employer] Work Phone: 08-27-2021 11:23-0400 Systolic blood pressure 118 mm[Hg] Davide Oglesby [employer] Work Phone: [employer] Work Phone: 08-13-2021 08:58-0500 Body height 167.64 cm Davide Oglesby [employer] Work Phone: [employer] Work Phone: 08-13-2021 08:58-0500 Body mass index (BMI) [Ratio] 29.39 kg/m2 Davide Oglesby [employer] Work Phone: [employer] Work Phone: 08-13-2021 08:58-0500 Body surface area Derived from formula 1.92 m2 Davide Oglesby [employer] Work Phone: [employer] Work Phone: 08-13-2021 08:58-0500 Body weight 82.6 kg Davide Oglesby [employer] Work Phone: [employer] [facility] [place] Work Phone: 08-13-2021 08:58-0500 Diastolic blood pressure 60 mm[Hg] Davide Oglesby [employer] Work Phone: [employer] Work Phone: 08-13-2021 08:58-0500 Systolic blood pressure 112 mm[Hg] Davide [employer] Work Phone: [employer] Work Phone: 07-30-2021 11:06-0500 Body height 167.64 cm Davide Oglesby [employer] Work Phone: [employer] Work Phone: 07-30-2021 11:06-0500 Body mass index (BMI) [Ratio] 28.93 kg/m2 Davide Oglesby [employer] Work Phone: [employer] Work Phone: 07-30-2021 11:06-0500 Body surface area Derived from formula 1.91 m2 Davide Oglesby [employer] Work Phone: [employer] Work Phone: 07-30-2021 11:06-0500 Body weight 81.3 kg Davide Oglesby [employer] Work Phone: [employer] Work Phone: 07-30-2021 11:06-0500 Diastolic blood pressure 68 mm[Hg] Davide Oglesby [employer] Work Phone: [employer] Work Phone: 07-30-2021 11:06-0500 Systolic blood pressure 114 mm[Hg] Davide Oglesby [employer] Work Phone: [employer] Work Phone: 07-12-2021 14:39-0500 Body height 167.64 cm Davide Oglesby [employer] Work Phone: [employer] Work Phone: 07-12-2021 14:39-0500 Body mass index (BMI) [Ratio] 28.75 kg/m2 Davide Chao Work Phone: [place] [address] [place] Work Phone: 07-12-2021 14:39-0500 Body surface area Derived from formula 1.9 m2 Davide Chao Work Phone: [place] [address] [place] Work Phone: 07-12-2021 14:39-0500 Body temperature 97.7 [degF] Davide Chao Work Phone: [place] [address] [place] Work Phone: 07-12-2021 14:39-0500 Body weight 80.8 kg Davide Chao Work Phone: [place] [address] [place] Work Phone: 07-12-2021 14:39-0500 Diastolic blood pressure 64 mm[Hg] Davide Chao Work Phone: [place] [address] [place] Work Phone: 07-12-2021 14:39-0500 Systolic blood pressure 116 mm[Hg] Davide Chao Work Phone: [place] [address] [place] Work Phone: 06-23-2021 20:00-0500 Body height 167.6 cm Gallito Couch MD Work Phone: [employer] 06-23-2021 20:00-0500 Body mass index (BMI) [Ratio] 27.95 kg/m2 Gallito Couch MD Work Phone: [employer] 06-23-2021 20:00-0500 Body temperature 98.4 [degF] Gallito Couch MD Work Phone: [employer] 06-23-2021 20:00-0500 Body weight 78.55 kg Gallito Couch MD Work Phone: [facility] 06-23-2021 20:00-0500 Diastolic blood pressure 66 mm[Hg] Gallito Couch MD Work Phone: [facility] 06-23-2021 20:00-0500 Heart rate 81 /min Gallito Couch MD Work Phone: [facility] 06-23-2021 20:00-0500 Respiratory rate 18 /min Gallito Couch MD Work Phone: [facility] 06-23-2021 20:00-0500 SaO2% (BldA) [Mass fraction] 98 % Gallito Couch MD Work Phone: [facility] 06-23-2021 20:00-0500 Systolic blood pressure 101 mm[Hg] Gallito Couch MD Work Phone: [facility] 05-17-2021 13:06-0500 Body height 167.6 cm Yuri Palencia MD Work Phone: [facility] 05-17-2021 13:06-0500 Body mass index (BMI) [Ratio] 26.26 kg/m2 Yuri Palencia MD Work Phone: [facility] 05-17-2021 13:06-0500 Body weight 73.8 kg Yuri Palencia MD Work Phone: [facility] 05-17-2021 13:06-0500 Diastolic blood pressure 65 mm[Hg] Yuri Palencia MD Work Phone: [facility] 05-17-2021 13:06-0500 Heart rate 80 /min Yuri Palencia MD Work Phone: [facility] 05-17-2021 13:06-0500 SaO2% (BldA) [Mass fraction] 95 % Yuri Palencia MD Work Phone: [facility] 05-17-2021 13:06-0500 Systolic blood pressure 97 mm[Hg] Yuri Palencia MD Work Phone: [facility] 03-17-2021 02:05-0400 Diastolic blood pressure 66 mm[Hg] Davide Espitiabrock Other Phone: [facility] 03-17-2021 02:05-0400 Heart rate 59 /min Davide Espitiabrock Other Phone: [facility] 03-17-2021 02:05-0400 Respiratory rate 16 /min Davide Espitiabrock Other Phone: [facility] 03-17-2021 02:05-0400 SaO2% (BldA) [Mass fraction] 96 % Davide Espitiabrock Other Phone: [facility] 03-17-2021 02:05-0400 Systolic blood pressure 102 mm[Hg] Davide Espitiabrosydney Other Phone: [facility] 03-01-2021 06:50-0400 Diastolic blood pressure 63 mm[Hg] Davide Espitiabrock Other Phone: [facility] 03-01-2021 06:50-0400 Heart rate 60 /min Davide Espitiabrock Other Phone: [facility] 03-01-2021 06:50-0400 Respiratory rate 18 /min Davide Espitiabrosydney Other Phone: [facility] 03-01-2021 06:50-0400 SaO2% (BldA) [Mass fraction] 99 % Davide Espitiabrosydney Other Phone: [facility] 03-01-2021 06:50-0400 Systolic blood pressure 98 mm[Hg] Davide Espitiabrock Other Phone: [facility] 12-15-2020 02:09-0400 Diastolic blood pressure 72 mm[Hg] Davide Williebrock Other Phone: [facility] 12-15-2020 02:09-0400 Heart rate 74 /min Davide Williebrock Other Phone: [facility] 12-15-2020 02:09-0400 Respiratory rate 20 /min Davide Chao Other Phone: [facility] 12-15-2020 02:09-0400 SaO2% (BldA) [Mass fraction] 99 % Davide Chao Other Phone: [facility] 12-15-2020 02:09-0400 Systolic blood pressure 107 mm[Hg] Davide Chao Other Phone: [facility] 12-08-2020 03:30-0400 Diastolic blood pressure 68 mm[Hg] Davide Chao Other Phone: [facility] 12-08-2020 03:30-0400 Heart rate 61 /min Davide Chao Other Phone: [facility] 12-08-2020 03:30-0400 SaO2% (BldA) [Mass fraction] 98 % Davide Chao Other Phone: [facility] 12-08-2020 03:30-0400 Systolic blood pressure 103 mm[Hg] Davide Chao Other Phone: [facility] 12-08-2020 02:21-0400 Respiratory rate 16 /min Davide Chao Other Phone: [facility] 09-27-2020 12:09-0400 Body temperature 98.4 [degF] Barbara Crews MD Work Phone: [facility] 09-27-2020 12:09-0400 Diastolic blood pressure 76 mm[Hg] Barbara Crews MD Work Phone: [facility] 09-27-2020 12:09-0400 Heart rate 102 /min Barbara Crews MD Work Phone: [facility] 09-27-2020 12:09-0400 Respiratory rate 18 /min Barbara Crews MD Work Phone: [facility] 09-27-2020 12:09-0400 SaO2% (BldA) [Mass fraction] 100 % Barbara Crews MD Work Phone: [facility] 09-27-2020 12:09-0400 Systolic blood pressure 114 mm[Hg] Barbara Crews MD Work Phone: [facility] 09-26-2020 21:00-0400 Diastolic blood pressure 59 mm[Hg] Davide Chao Other Phone: [facility] 09-26-2020 21:00-0400 Heart rate 66 /min Davide Chao Other Phone: [facility] 09-26-2020 21:00-0400 Respiratory rate 18 /min Davide Chao Other Phone: [facility] 09-26-2020 21:00-0400 SaO2% (BldA) [Mass fraction] 99 % Davide Chao Other Phone: [facility] 09-26-2020 21:00-0400 Systolic blood pressure 95 mm[Hg] Davide Chao Other Phone: [facility] 09-26-2020 19:57-0400 Diastolic blood pressure 85 mm[Hg] [employer] [facility] Work Phone: [facility] 09-26-2020 19:57-0400 Heart rate 75 /min [employer] [facility] Work Phone: [facility] 09-26-2020 19:57-0400 Respiratory rate 16 /min [employer] [facility] Work Phone: [facility] 09-26-2020 19:57-0400 Systolic blood pressure 121 mm[Hg] [facility] Work Phone: [facility] 09-26-2020 16:40-0400 Body height 167.6 cm Davide Chao Other Phone: [facility] 09-26-2020 16:40-0400 Body temperature 98.6 [degF] Davide Chao Other Phone: [facility] 09-26-2020 16:40-0400 Body weight 72.7 kg Davide Chao Other Phone: [facility] 09-01-2018 22:18-0400 BP Diastolic 79 mm[Hg] Tony [facility] 09-01-2018 22:18-0400 BP Systolic 108 mm[Hg] Tony [facility] 09-01-2018 22:18-0400 Pulse (Heart Rate) 73 /min [facility] 09-01-2018 22:18-0400 Pulse Oximetry 100 % [facility] 09-01-2018 22:18-0400 Respiratory Rate 16 /min [facility] 09-01-2018 16:13-0400 BMI (Body Mass Index) 21.95 kg/m2 [facility] 09-01-2018 16:13-0400 Body Temperature 98.01 [degF] [facility] 09-01-2018 16:13-0400 Height 167.6 cm [facility] 09-01-2018 16:13-0400 Weight 61.69 kg [facility] Encounters Encounter Date Encounter Type Care Provider Facility Start: 04-14-2025 ambulatory JERRY CORREA APRNBONITA Facility:[facility] Start: 04-07-2025 End: 04-07-2025 Emergency department patient visit Lukasz Skelton Facility:[facility] Start: 04-07-2025 End: 04-07-2025 ambulatory KATALINA COOPER Facility:[facility] Start: 03-28-2025 ambulatory Daljit Barrera Facility:[facility] Start: 03-27-2025 End: 03-27-2025 ambulatory CHRISTIANOEDA UMANA Facility:[facility] Start: 03-26-2025 End: 03-26-2025 Emergency department patient visit ANTONETTE HANNON MD [facility] Start: 03-14-2025 End: 03-14-[address] Reuben Motley MD -[facility] Work Phone: Start: 03-14-2025 End: 03-14-[address] Davide Chao MD Work Phone: [facility] Start: 03-10-2025 End: 03-10-2025 ambulatory KATALINA COOPER Facility:[facility] Start: 03-10-2025 End: 03-10-2025 ambulatory KATALINA COOPER Facility:[facility] Start: 03-04-2025 End: 03-05-2025 Emergency department patient visit JUN BRYANT [facility] Start: 02-17-2025 End: 02-17-2025 Telephone encounter Tessie Ceh MD Work Phone: OB/Gynecology Comment on above: Constipation Start: 02-14-2025 ambulatory Reuben Satti Facilit y:[facility] Start: 02-11-2025 End: 02-11-2025 ambulatory DAVIDE CHAO Facility:[facility] Start: 02-11-2025 End: 02-11-2025 Telephone encounter Gene Rogers APRN.[employer] Work Phone: Psychiatry Comment on above: PRAF Start: 02-10-2025 End: 02-10-2025 Patient encounter procedure Katalina Cooper APRN.CNM Work Phone: OB/Gynecology Comment on above: with uncer tain dates in first trimester ([facility]) (Primary Dx); Screening for cervical cancer; Special screening examination for human papillomavirus (HPV); Screen for STD (sexually transmitted disease); History of atrial fibrillation; Rh negative status during in first trimester ([facility]); History of vacuum extraction assisted delivery; History of cholestasis during ; History of delivery of macrosomal ; Herpes simplex virus (HSV) infection; History of anxiety; Bipolar affective disorder, current episode depressed, current episode severity unspecified ([facility]); Depression, unspecified depression type; Anxiety; History of seizures; Vaping nicotine dependence, tobacco product; Other specified attention deficit hyperactivity disorder (ADHD); History of pre-eclampsia; Elevated BP without diagnosis of hypertension; Seizures ([facility]); MVP (mitral valve prolapse); History of loop electrosurgical excision procedure (LEEP) of cervix affecting in first trimester ([facility]); History of herpes simplex infection; History of chlamydia; History of PSVT (paroxysmal supraventricular tachycardia); Anxiety with depression; History of depression; History of suicide attempt; History of depression Start: 02-10-2025 End: 02-10-2025 ambulatory DAVIDE CHAO Facility:[facility] Start: 02-05-2025 End: 02-06-2025 Telephone encounter Adriano Smith MD Work Phone: OB/Gynecology Comment on above: Care Start: 02-05-2025 End: 02-05-2025 Emergency department patient visit MIGUEL SHORT MD [facility] Start: 01-30-2025 End: 01-30-2025 Patient encounter procedure [employer] [facility] OB/Gynecology Start: 01-30-2025 End: 01-30-2025 ambulatory Shingle [employer] Work Phone: OB/Gynecology Start: 01-29-2025 End: 01-29-2025 Telephone encounter Clarisse Choudharyf [employer] SUPERVISOR[employer] Work Phone: OB/Gynecology Start: 01-27-2025 End: 01-27-2025 Telephone encounter Clarisse Lizy [employer] SUPERVISOR[employer] Work Phone: OB/Gynecology Comment on above: Received Outside Med ical Records Start: 01-15-2025 End: 01-15-2025 Patient encounter procedure Pam Robertson MD Work Phone: OB/Gynecology Comment on above: Threatened (HCC) (Primary Dx) Start: 01-15-2025 End: 01-15-2025 ambulatory PAM ROBERTSON Facility:[facility] Start: 01-14-2025 End: 01-14-2025 Telephone encounter Alejo Gruber MD Work Phone: OB/Gynecology Comment on above: NOB w/ Tubal reversa l Start: 01-14-2025 End: 01-14-2025 Emergency department patient visit ISAAC SHEA MD [facility] Start: 01-13-2025 End: 01-13-[address] Davide Chao MD Work Phone: -[facility] Start: 01-13-2025 End: 01-13-[address] Yuri Crenshaw MD -[facility] Start: 01-13-2025 End: 01-13-2025 ambulatory Yuri Crenshaw Facility:[facility] Start: 01-11-2025 End: 01-11-[address] Davide Chao MD Work Phone: -Laboratory Start: 01-11-2025 End: 01-11-[address] Melissa Brasher DO -Laboratory Work Phone: Start: 01-11-2025 End: 01-11-2025 ambulatory Melissa Brasher Facility:[facility] Start: 01-09-2025 End: 01-09-[address] Davide Chao MD Work Phone: -Laboratory Start: 01-09-2025 End: 01-09-[address] Melissa Brasher DO -Laboratory Work Phone: Start: 01-09-2025 End: 02-09-2025 Release of Information Provider Not In System [facility] Historical Mapping Start: 01-09-2025 End: 02-09-2025 REBA Legacy Provider Not In System [facility] Historical Mapping Start: 01-09-2025 End: 01-09-2025 ambulatory Davide Chao Facility:[facility] Start: 01-07-2025 End: 01-07-[address] Davide Chao MD Work Phone: -Lab [facility] Start: 01-07-2025 End: 01-07-[address] Melissa Brasher DO -[facility] Start: 01-07-2025 End: 01-07-2025 ambulatory Davide Chao Facility:[facility] Start: 01-05-2025 End: 01-05-[address] Davide Chao MD Work Phone: -Laboratory Start: 01-05-2025 End: 01-05-[address] Melissa Brasher DO -Laboratory Work Phone: Start: 01-05-2025 End: 01-05-2025 ambulatory Melissa Brasher Facility:[facility] Start: 01-03-2025 End: 01-03-2025 Patient encounter procedure Jeanette Roach [facility] Work Phone: Start: 01-03-2025 End: 01-03-[address] Davide Chao MD Work Phone: -[facility] Start: 01-03-2025 End: 01-03-2025 ambulatory Jeanette Roahc Facility:[facility] Start: 12-31-[address] Davide calloway MD Work Phone: -Cardiovascular Services Work Phone: Start: 12-31-2024 [facility]ulatory [facility] Facility:[facility] Start: 12-31-2024 Non-patient / Non-visit Dr. Niko LIMON -[facility] Work Phone: Start: 12-24-2024 ambulatory DAVIDE Oglesby [facility] Start: 12-20-2024 ambulatory Melissa Brasher Fa cility:[facility] Start: 12-20-2024 Non-patient / Non-visit Dr. César Brasher DO -[facility] Start: 12-20-2024 End: 12-20-[address] Davide Chao MD Work Phone: -Radiology [facility] Start: 12-20-2024 End: 12-20-[address] Melissa Brasher DO -Radiology [facility] Work Phone: Start: 12-20-2024 End: 12-20-2024 ambulatory Melissa Brasher Facility:[facility] Start: 12-06-2024 End: 12-06-2024 Emergency department patient visit DAVIDE Oglesby [facility] Start: 12-03-2024 Non-patient / Non-visit Dr. Bre hutton MD -[facility] Work Phone: Start: 11-23-2024 End: 11-23-2024 Emergency department patient visit Dr. Davide Chao MD Work Phone: -Emergency Department Work Phone: Start: 11-15-2024 End: 11-15-[address] Davide Chao MD Work Phone: [facility] Work Phone: Start: 11-15-2024 End: 11-15-2024 Patient encounter procedure Jeanette Roach CNM -Lab [facility] Start: 11-15-2024 End: 11-15-2024 ambulatory Jeanette Roach Facility:[facility] Start: 11-11-2024 End: 11-11-[address] Davide Chao MD Work Phone: [facility] Work Phone: Start: 11-11-2024 End: 11-11-[address] Melissa Brasher DO -Laboratory Work Phone: Start: 11-11-2024 End: 11-11-2024 ambulatory Melissa Brasher Facility:[facility] Start: 10-26-2024 End: 10-26-[address] Davide Chao MD Work Phone: [facility] Work Phone: Start: 10-26-2024 End: 10-26-[address] Melissa Brasher DO -Laboratory Work Phone: Start: 10-26-2024 End: 10-26-2024 ambulatory Melissakyaw Brasher Facility:[facility] Start: 09-12-2024 End: 11-12-2024 Follow-up encounter Marina Ponce APRN.CNP Work Phone: OB/Gynecology Start: 09-12-2024 End: 09-12-2024 Telephone encounter Davide Chao MD Work Phone: [facility] [place] Comment on above: Faxed to [facility] Start: 09-10-2024 End: 09-10-2024 ambulatory Shingle Trimmer [employer] [employer] Work Phone: OB/Gynecology Start: 09-10-2024 End: 09-10-2024 Patient encounter procedure [employer] [facility] OB/Gynecology Start: 09-05-2024 End: 09-05-2024 ambulatory DAVIDE CHAO Facility:[facility] Start: 09-05-2024 End: 09-05-2024 Patient encounter procedure Marina Ponce APRN.[employer]ER Work Phone: OB/Gynecology Comment on above: Uterine cyst (Primar y Dx); Adenomyosis of uterus Start: 08-21-2024 End: 08-21-[address] Davide Chao MD Work Phone: [facility] Work Phone: Start: 08-21-2024 End: 08-21-[address] Melissa Brasher DO -Ultrasound, [facility] Work Phone: Start: 08-21-2024 End: 08-21-2024 ambulatory Melissa Brasher Facility:[facility] Start: 08-19-2024 End: 08-19-[address] Davide Chao MD Work Phone: [facility] Work Phone: Start: 08-19-2024 End: 08-19-[address] Melissa Brasher DO -Laboratory, Specimen Work Phone: Start: 08-19-2024 End: 08-19-[address] Melissa Brasher DO -[facility] Work Phone: Start: 08-19-2024 End: 08-19-2024 ambulatory Melissa Brasher Facility:[facility] Start: 08-19-2024 End: 10-19-2024 Follow-up encounter Davide Chao MD Work Phone: Family [facility] Start: 08-19-2024 End: 08-19-2024 ambulatory Melissa Brasher Facility:[facility] Start: 08-16-2024 End: 08-16-2024 ambulatory DAVIDE CHAO Facility:[facility] Start: 08-15-2024 ambulatory [facility] Start: 08-14-2024 End: 08-15-2024 Telephone encounter Davide Chao MD Work Phone: Coumadin [facility] Comment on above: Results (labs) Start: 08-12-2024 End: 08-12-2024 Follow-up encounter Davide Chao MD Work Phone: [facility] [place] Start: 08-12-2024 End: 08-12-2024 ambulatory DAVIDE CHAO Facility:[facility] Start: 08-06-2024 End: 08-06-2024 Distance Health Davide Chao MD Work Phone: Family [facility] Comment on above: Elevated blood press ure reading without diagnosis of hypertension (Primary Dx); Fibromyalgia; Anxiety with depression; ADHD (attention deficit hyperactivity disorder), combined type Start: 07-24-2024 End: 07-24-2024 Patient encounter procedure Laura Salinas CNM -Lab, [facility] Start: 07-24-2024 End: 07-24-2024 ambulatory Laura Salinas Facility:[facility] Start: 06-10-2024 End: 06-10-2024 Patient encounter procedure Davide Chao MD Work Phone: [facility] Comment on above: Anxiety (Primary Dx) ; Elevated blood pressure reading without diagnosis of hypertension; ADHD (attention deficit hyperactivity disorder), combined type Start: 06-10-2024 End: 06-10-2024 ambulatory Davide Chao Facility:[facility] Start: 06-10-2024 End: 06-10-2024 ambulatory Davide Caho Facility:[facility] Start: 04-19-2024 End: 04-19-2024 ambulatory Laura Salinas Facility:[facility] Start: 04-19-2024 End: 04-19-2024 ambulatory Laura Salinas Facility:[facility] Start: 03-29-2024 End: 03-29-2024 ambulatory Davied Chao MD Work Phone: [facility] Comment on above: Eosinophilic esophag itis (Primary Dx); Anxiety with depression; Dysphagia, unspecified type Start: 03-29-2024 End: 03-29-2024 Telemedicine consultation with patient Davide Chao MD Work Phone: [facility] Start: 03-26-2024 End: 03-26-2024 ambulatory Davide Chao MD Work Phone: [facility] Comment on above: Advice Start: 03-22-2024 End: 03-22-2024 Emergency department patient visit RAMON PULLIAM MD [facility] Start: 03-22-2024 End: 03-22-2024 Telephone encounter Davide Chao MD Work Phone: [facility] Comment on above: Chest Pain Start: 03-22-2024 End: 03-22-2024 Emergency department patient visit ANTONETTE SHEARER [facility] Start: 12-28-2023 Telephone encounter Davide deng MD Work Phone: [facility] Comment on above: Medication Request Start: 12-08-2023 End: 12-08-2023 ambulatory Davide Chao MD Work Phone: [facility] Comment on above: Anxiety with depress ion (Primary Dx) Start: 12-08-2023 End: 12-08-2023 Telemedicine consultation with patient Davide Chao MD Work Phone: [facility] Start: 11-03-2023 End: 11-03-2023 ambulatory Davide Chao MD Work Phone: [facility] Comment on above: Fibromyalgia (Primar y Dx); Anxiety with depression; Near syncope; URI, acute Start: 11-03-2023 End: 11-03-2023 Telemedicine consultation with patient Davide Chao MD Work Phone: [facility] Start: 11-01-2023 Refill Davide haq MD Work Phone: [facility] Comment on above: Refill Request Start: 10-18-2023 Telephone encounter Sophie Bond PA-C Work Phone: [facility] [place] Start: 10-17-2023 End: 10-17-2023 Office outpatient visit 25 minutes Sophie Bond PA-C Work Phone: [facility] Comment on above: Near syncope (Primar y Dx) Start: 10-03-2023 Non-patient / Non-visit Dr. Richi Chao Work Phone: [facility] Start: 10-03-2023 End: 10-03-2023 Admission to same day surgery center Dr[facility] Davide [facility]ao [facility] Start: 10-03-2023 End: 10-03-[address] Davide Chao Work Phone: [facility] Work Phone: Start: 09-04-2023 End: 09-04-[address] Davide Chao Work Phone: [facility] Work Phone: Start: 08-11-2023 ambulatory Davide haq MD Work Phone: [facility] Comment on above: Supplement Start: 08-10-2023 End: 08-10-2023 Patient encounter procedure Roberto Andrea APRN.CNP Work Phone: [facility] Comment on above: Viral syndrome (Prim james Dx); Urinary frequency Start: 07-13-2023 End: 07-13-[address] Davide Chao Work Phone: [facility] Work Phone: Start: 07-13-2023 End: 07-13-[address] Davide Chao Work Phone: [facility]-Ultrasound, [facility] Work Phone: Start: 07-11-2023 Refill Davide haq MD Work Phone: [facility] [place] Comment on above: Refill Request Start: 06-28-2023 End: 06-28-[address] Davide Chao Work Phone: [facility] Work Phone: Start: 06-28-2023 End: 06-28-[address] Davide Chao Work Phone: [facility]-Laboratory, Specimen Work Phone: Start: 06-28-2023 End: 06-28-[address] Davide Chao Work Phone: [facility] Work Phone: Start: 06-28-2023 End: 06-28-[address] Davide Chao Work Phone: [facility] Work Phone: Start: 06-09-2023 End: 06-09-2023 Subsequent hospital visit by physician Alina Alvarado MD Work Phone: [facility] [employer] Comment on above: Arrived Start: 06-06-2023 End: 06-07-2023 Emergency department patient visit Son Gunderson MD Work Phone: [facility] Emergency Medicine Comment on above: Vaginal bleeding (Pr imary Dx) Start: 05-31-2023 ambulatory ALINA ALVARADO [facility] Start: 05-31-2023 End: 05-31-2023 Subsequent hospital visit by physician Alina Alvarado MD Work Phone: [facility] [employer] Comment on above: Arrived Start: 05-08-2023 Refill Davide haq MD Work Phone: Family [facility] Comment on above: Refill Request Start: 04-07-2023 Telephone encounter Davide deng MD Work Phone: [facility] Comment on above: Patient Question Start: 03-28-2023 End: 03-28-2023 ambulatory Davide Chao MD Work Phone: [facility] Comment on above: Anxiety with depress ion (Primary Dx); Bilateral leg edema; Anemia, unspecified type; Elevated liver function tests Start: 03-28-2023 End: 03-28-2023 Telemedicine consultation with patient Davide Chao MD Work Phone: [facility] Start: 03-18-2023 Non-patient / Non-visit Dr. Richi Chao Work Phone: [facility] Start: 03-18-2023 End: 03-18-[address] Davide Chao Work Phone: [facility] Work Phone: Start: 03-18-2023 End: 03-18-[address] Davide Chao Work Phone: [facility] Work Phone: Start: 03-18-2023 End: 03-18-2023 [facility] Start: 03-13-2023 Non-patient / Non-visit Dr. Richi Chao Work Phone: [facility] Start: 03-13-2023 End: 03-13-2023 Emergency department patient visit Edy Orellana MD Work Phone: [facility] Emergency Medicine Comment on above: Hypertension, unspec ified type (Primary Dx); induced hypertension, antepartum Start: 03-12-2023 Non-patient / Non-visit Dr. Richi Chao Work Phone: [facility] Start: 03-11-2023 Non-patient / Non-visit Dr. Richi Chao Work Phone: [facility] Start: 03-10-2023 Non-patient / Non-visit Dr. Richi Chao Work Phone: [facility] Start: 03-09-2023 Non-patient / Non-visit Dr. Richi Chao Work Phone: [facility] Start: 03-09-2023 End: 03-11-2023 Evaluation and management of inpatient Dr. Davide Chao Work Phone: [facility] Work Phone: Start: 03-09-2023 End: 03-09-[address] Davide Chao Work Phone: [facility] Work Phone: Start: 03-08-2023 Non-patient / Non-visit Dr. Richi Chao Work Phone: [facility] Start: 03-08-2023 End: 03-08-[address] Davide Chao Work Phone: [facility], Outpatients Work Phone: Start: 03-04-2023 Non-patient / Non-visit Dr. Richi Chao Work Phone: [facility] Start: 03-04-2023 End: 03-04-[address] Davide Chao Work Phone: [facility] Work Phone: Start: 03-04-2023 End: 03-04-[address] Davide Chao Work Phone: [facility], Outpatients Work Phone: Start: 03-04-2023 End: 03-04-[address] Davide Chao Work Phone: [facility] Work Phone: Start: 03-04-2023 End: 03-04-[address] Davide Chao Work Phone: [facility], Outpatients Work Phone: Start: 03-03-2023 End: 03-03-[address] Davide Chao Work Phone: [facility]-Outpatient Pavilion Ultrasound Work Phone: Start: 03-01-2023 End: 03-01-[address] Davide Chao Work Phone: [facility], Outpatients Work Phone: Start: 02-28-2023 End: 02-28-[address] Davide Chao Work Phone: [facility] Work Phone: Start: 02-28-2023 End: 02-28-[address] Davide Chao Work Phone: [facility]-Ultrasound, [facility] Work Phone: Start: 02-24-2023 End: 02-24-[address] Davide Chao Work Phone: [facility]-Outpatient Pav[facility] Ultrasound Work Phone: Start: 02-22-2023 End: 02-22-[address] Davide Chao Work Phone: [facility] Work Phone: Start: 02-22-2023 End: 02-22-[address] Davide Chao Work Phone: [facility]-Outpatient Pav[facility] Ultrasound Work Phone: Start: 02-18-2023 Non-patient / Non-visit Dr. Richi Chao Work Phone: [facility] Start: 02-18-2023 End: 02-18-[address] Davide Chao Work Phone: [facility] Work Phone: Start: 02-18-2023 End: 02-18-[address] Davide [facility] Work Phone: Start: 02-17-2023 End: 02-17-[address] Davide Chao Work Phone: [facility]-Laboratory, Specimen Work Phone: Start: 02-17-2023 End: 02-17-[address] Davide Chao Work Phone: [facility] Work Phone: Start: 02-02-2023 End: 02-02-[address] Davide Chao Work Phone: [facility] Work Phone: Start: 02-01-2023 End: 02-01-[address] Davide Chao Work Phone: [facility] Work Phone: Start: 01-30-2023 Non-patient / Non-visit Dr. Richi Chao Work Phone: [facility] Start: 01-30-2023 Telephone encounter Davide deng MD Work Phone: [facility] [place] Comment on above: Pain, Back; yellowin g of sclera Start: 01-30-2023 End: 01-30-[address] Davide Chao Work Phone: [facility] Work Phone: Start: 01-30-2023 End: 01-30-[address] Davide Chao Work Phone: [facility], Outpatients Work Phone: Start: 01-27-2023 End: 01-27-2023 Patient encounter procedure Marilyn Gruber APRN.[facility] Work Phone: [facility] Comment on above: STD (sexually transm itted disease) (Primary Dx) Start: 01-23-2023 End: 01-23-2023 Emergency department patient visit Dr. Davide Chao Work Phone: [facility]-Emergency Department Work Phone: Start: 01-16-2023 Non-patient / Non-visit Dr. Richi Chao Work Phone: [facility] Start: 01-16-2023 End: 01-16-[address] Davide Chao Work Phone: [facility], Outpatients Work Phone: Start: 01-16-2023 End: 01-16-[address] Davide Chao Work Phone: [facility] Work Phone: Start: 12-21-2022 End: 12-21-[address] Davide Chao Work Phone: [facility] Work Phone: Start: 11-29-[address] Davide Chao Facility:[id number] Start: 11-29-2022 Patient encounter procedure [facility] Work [facility]: Start: 11-25-2022 End: 11-25-[address] Davide Chao Work Phone: [facility] Work Phone: Start: 11-11-2022 End: 11-11-[address] Davide Chao Work Phone: [facility] Work Phone: Start: 11-11-2022 End: 11-11-[address] Davide Chao Facility:[id number] Start: 11-11-2022 End: 11-11-2022 Subsequent hospital visit by physician Andry Rueda MD Work Phone: [facility] Comment on above: Lower abdominal pain , unspecified; Antepartum hemorrhage, unspecified, second trimester; Maternal care for other rhesus isoimmunization, second trimester, not applicable or unspecified; 21 weeks gestation of Start: 11-10-[address] Davide Chao Facility:[id number] Start: 11-04-2022 ambulatory [facility] Start: 11-04-2022 End: 11-04-2022 Subsequent hospital visit by physician Alina Alvarado MD Work Phone: [facility] [employer] Comment on above: Arrived Start: 11-04-2022 End: 11-04-[address] Davide Chao Work Phone: [facility] Work Phone: Start: 11-04-2022 End: 11-04-[address] Davide Chao Work Phone: [facility]-Outpatient Pav[facility] Ultrasound Start: 11-03-2022 AQUATICFU4, Provider : Katalina Roach, Status: Pen, Time: 11:30 AM Davide Chao [facility] Work Phone: Start: 11-01-2022 Patient encounter procedure Davide Chao Work Phone: [facility] Work Phone: Start: 11-01-[address] Davide Chao Facility:[id number] Start: 10-28-2022 End: 10-28-[address] Davide Chao Work Phone: [facility] Start: 10-18-2022 Patient encounter procedure [facility]ao [facility] Work Phone: Start: 10-18-[address] Davide Chao Facility:[id number] Start: 10-10-2022 Telephone encounter Davide deng MD Work Phone: [facility] Comment on above: Referral Request Start: 10-10-2022 End: 10-10-2022 ambulatory DAVIDE CHAO [facility] Start: 09-28-2022 End: 09-28-[address] Davide Chao Work Phone: [facility] Work Phone: Start: 09-28-2022 End: 09-28-[address] Davide Chao Work Phone: [facility]-Laboratory, Specimen Start: 09-28-2022 End: 09-28-[address] Davide Chao Work Phone: [facility] Start: 09-11-2022 End: 09-12-2022 Emergency department patient visit Byron Aranda [facility] Emergency 09 Start: 09-10-2022 End: 09-11-2022 Emergency department patient visit Dr. John Valladares Facility:[id number] Start: 08-17-2022 End: 08-17-[address] Davide Chao Work Phone: [facility] Work Phone: Start: 08-17-2022 End: 08-17-[address] Davide Chao Work Phone: [facility]-Laboratory, Specimen Start: 08-17-2022 End: 08-17-[address] Davide Chao Work Phone: [facility] Start: 08-10-[address] Davide Chao Facility:[id number] Start: 08-03-2022 End: 08-03-[address] Davide Chao Work Phone: [facility]-Ultrasound, [facility] Start: 08-02-2022 End: 08-02-2022 Emergency department patient visit ANDRY ECKERT [facility] Start: 07-30-2022 End: 07-31-2022 ambulatory [facility] Start: 07-30-2022 End: 07-30-2022 Subsequent hospital visit by physician Davide Chao Work Phone: [facility] Start: 07-29-2022 End: 07-29-[address] Davide Chao Work Phone: [facility] Work Phone: Start: 07-29-2022 End: 07-29-[address] Davide Chao Work Phone: [facility] Start: 07-28-2022 End: 07-30-2022 ambulatory YANIV Cantor SKYE [facility] Start: 07-28-2022 End: 07-30-2022 Subsequent hospital visit by physician [facility] Ultrasound Room [facility] Comment on above: Acute bilateral low back pain with right-sided sciatica; , unspecified gestational age , unspecifi ed gestational age Start: 07-26-2022 End: 07-26-2022 Emergency department patient visit [facility] Start: 07-14-2022 Emergency department patient visit [facility] Start: 07-13-2022 End: 07-14-2022 Emergency department patient visit Nery Esparza MD Work Phone: [facility] ED Comment on above: Back strain, [...] End: 05-09-2022 Emergency department patient visit DIPAK [facility] Start: 03-04-2022 End: 03-04-2022 ambulatory Davide Chao MD Work Phone: [facility] [place] Comment on above: Anxiety with depress ion (Primary Dx) Start: 03-04-2022 End: 03-04-2022 Telemedicine consultation with patient Davide Chao MD Work Phone: [facility] [place] Start: 03-03-2022 ambulatory Davide haq MD Work Phone: [facility] [place] Comment on above: Medications Start: 11-29-2021 E-mail encounter fro m caregiver [facility] Provider [facility] [place] Start: 11-29-2021 Follow-up encounter [facility] Provider Cody Hartley [place] Comment on above: Follow up Start: 11-29-2021 End: 11-29-2021 ambulatory Davide Chao MD Work Phone: [facility] Medicine [place] Comment on above: Anxiety Start: 11-29-2021 End: 11-29-2021 Telemedicine consultation with patient Davide Chao MD Work Phone: [facility] [place] Start: 11-21-2021 End: 11-21-2021 ambulatory MIREYA MOORE [facility] Start: 11-21-2021 End: 11-21-2021 Office outpatient visit 15 minutes Mireya Gagnon [facility] Work Phone: [facility] [place] Comment on above: Non-recurrent acute suppurative otitis media of left ear without spontaneous rupture of tympanic membrane (Primary Dx) Start: 11-16-[address] Davide Chao Facility:[id number] Start: 10-12-2021 End: 10-14-2021 Evaluation and management of inpatient Andry Maldonado Mohit [facility] L[facility]D 405 Start: 10-11-2021 Chart Update Davide Gregg ock Work Phone: [employer] Work Phone: Start: 10-08-2021 ambulatory MD ANDRY RUEDA Facility:[id number] Start: 10-01-2021 Office outpatient vi sit 15 minutes Davide Oglesby [employer] Work Phone: [employer] Work Phone: Start: 10-01-2021 ambulatory MD ANDRY RUEDA Facility:[id number] Start: 09-27-2021 Chart Update Davide Espitiabr ock Work Phone: [employer] Work Phone: Start: 09-24-2021 Office outpatient vi sit 10 minutes Davide Chao Work Phone: [employer] Work Phone: Start: 09-24-[address] Anil Panchal Fa cility:[id number] Start: 09-20-2021 Chart Update Davide Espitiabr ock Work Phone: [employer] Work Phone: Start: 09-17-[address] Davide Chao Facility:[id number] Start: 09-10-2021 Office outpatient vi sit 15 minutes Davide Chao Work Phone: [employer] Work Phone: Start: 09-10-[address] Davide Chao Facility:[id number] Start: 08-31-2021 AUDIT Davide Reny Espitiabr ock Work Phone: [employer] Work Phone: Start: 08-27-[address] Davide jacobo [facility] Facility:[id number] Start: 08-27-2021 Office outpatient vi sit 15 minutes Davide Chao Work Phone: [employer] Work Phone: Start: 08-13-2021 ambulatory MD ANDRY STEPHENS RD [facility] Facility:[id number] Start: 08-06-2021 Chart Update Davide Reny Cristino dung Work Phone: [facility] [place] [address] [facility] Work Phone: Start: 07-30-2021 Office outpatient vi sit 15 minutes Davide Reny Zhanna Work Phone: [facility] [employer] Work Phone: Start: 07-12-2021 Office outpatient vi sit 15 minutes Davide Reny Zhanna Work Phone: [facility] [employer] Work Phone: Start: 06-23-2021 End: 06-23-2021 Subsequent hospital visit by physician Gallito Couch MD Work Phone: [facility] Start: 05-17-2021 End: 05-21-2021 ambulatory [facility] Start: 05-17-2021 End: 05-17-2021 Office outpatient new 45 minutes Mariecl Simeon MD Work Phone: [facility] Comment on above: Palpitations (Primar y Dx) Start: 05-12-2021 End: 05-13-2021 Emergency department patient visit [facility] Start: 05-09-2021 End: 05-10-2021 Emergency department patient visit [facility] Start: 03-16-2021 End: 03-17-2021 Emergency department patient visit Cheyanne Izaguirre [facility] Emergency 10 Start: 03-01-2021 End: 03-01-2021 Emergency department patient visit Son Gunderson [facility] Emergency 12 Start: 02-12-2021 Patient requested procedure [facility] Provider [facility] Work Phone: Start: 12-14-2020 End: 12-15-2020 Emergency department patient visit Cheyanne Izaguirre [facility] Emergency 04 Start: 12-08-2020 End: 12-08-2020 Emergency department patient visit Davide Blount [facility] Emergency 16 Start: 09-27-2020 End: 09-27-2020 Emergency department patient visit DAVIDE [facility] Start: 09-27-2020 End: 09-27-2020 Emergency department patient visit Barbara Crews MD Work Phone: [facility] Emergency Department Start: 09-26-2020 End: 09-26-2020 ambulatory [facility] Start: 09-26-2020 End: 09-26-2020 Evaluation and management of inpatient Generic [facility] Work Phone: [facility] Start: 09-26-2020 End: 09-26-2020 Emergency department patient visit Rm Veras [facility] Emergency 02 Start: 08-12-2020 End: 08-12-2020 Transcribe Orders Davide Espitiawoodson Work Phone: [facility] Comment on above: Cervical pain (Prima ry Dx) Start: 09-18-2018 Emergency department patient visit UNKNOWN PROVIDER [facility] Start: 09-01-2018 End: 09-01-2018 Emergency department patient visit Tony Roe Anna Work Phone: [facility] Emergency Department Comment on above: Kidney stone on left side (Primary Dx) Start: 08-22-2018 Emergency department patient visit UNKNOWN PROVIDER [facility] Start: 08-17-2018 End: 08-17-2018 ambulatory UNKNOWN PROVIDER Facility:[facility] Start: 07-12-2018 End: 07-12-2018 Patient encounter procedure RENETTA DAWN Facility:[facility] Start: 06-21-2018 End: 06-21-2018 Patient encounter procedure RENETTA DAWN Facility:[facility] Start: 11-25-2017 End: 11-25-2017 Emergency department patient visit Kam Crandall Facility:[place] Start: 11-09-2011 End: 02-10-2025 Patient requested procedure Gene Rogers [employer] Work Phone: [facility] Procedures Date Procedure Procedure Detail Performing Clinician Start: 03-26-2025 SARS-CoV-2, Influenza & RSV (PCR) Dr. Davide Chao MD Work Phone: Start: 03-26-2025 D-dimer assay, quantitative Dr. Davide Chao MD Work Phone: Comment on above: NORMAL D-Dimer level (<0.50) indicates n o DVT or PE. Start: 03-26-[address] Davide Chao MD Work Phone: Start: 03-26-2025 Plain chest X-ray Dr. Davide Chao MD Work Phone: Start: 02-11-2025 Antibody screen DAVIDE CHAO Comment on above: Order Comment: Specimen Type: BLOOD SPEC IMEN Ordering Facility: [facility] Address: [address] [place] [address] Performed By: #### 5 [id number], [id number], [id number] #### [facility] CLIA [id number] [address] [place] [address] [place] Start: 02-10-2025 BACTERIAL VAGINOSIS NAAT Katalina Cooper APRN.CNM Work Phone: Start: 02-10-2025 Iadna chlamydia trachomatis amplified probe tq Katalina Cooper APRN.CNOmer Work Phone: Start: 02-10-2025 Us uterus limited 1/> fetuses Katalina Cooper APRN.CNOmer Work Phone: Start: 01-30-2025 Us pelvic nonobstetric real-time image complete Pam Robertson MD Work Phone: Start: 01-03-[address] Davide Chao MD Work Phone: Comment on above: Follicular phase 0.1 - 0.9 Luteal phase 1.8 - 23.9 Ovulation phase 0.1 - 12.0 First trimester 11.0 - 44.3 Second trimester 25.4 - 83.3 Third trimester 58.7 - 214.0 Postmenopausal 0.0 - 0.1Performed at: [address] [id number] Director: Maximilian Hunt PhD, Phone: [phone] Start: 01-03-[address] Davide Chao MD Work Phone: Start: 01-03-2025 Source [...] - 214.0 Postmenopausal 0.0 - 0.1Performed at: [facility] [employer] [id number] Director: Maximilian Hunt PhD, Phone: [phone] Start: 09-10-2024 Us pelvic nonobstetric real-time image complete Marina Ponce APRN.CNP Work Phone: Start: 08-21-2024 Pelvic echography [...] MD Work Phone: Start: 03-22-2024 Urinalysis TRISTIN BATRES Comment on above: Result Comment: URINALYSIS Performed By: #### 2 [id number] #### [facility],[address] [place] [address] Start: 10-03-[address] Davide Chao Work Phone: Start: 08-10-2023 INFLUENZA A&B MOLECULAR (POC) Roberto Andrea APRN.[employer]OOM MAKER Work Phone: Start: 08-10-2023 Urnls dip stick/tablet rgnt auto w/o microscopy Roberto Andrea APRN.[employer] Work Phone: Start: 07-13-[address] Davide Chao Work Phone: Start: 06-28-[address] Davide Chao Work Phone: Start: 06-28-2023 Investigation of transfusion reaction Dr. Davide Chao Work Phone: Start: 06-07-2023 Bacteria identified in Urine by Culture DAVIDE CHAO Start: 06-07-2023 EXTRA URINE APPIAH TUBE DAVIDE CHAO Start: 06-07-2023 URINALYSIS MICROSCOPIC WITH REFLEX CULTURE DAVIDE CHAO Start: 06-07-2023 URINALYSIS WITH REFLEX CULTURE AND MICROSCOPIC DAVIDE CHAO Start: 06-07-2023 Basic metabolic 2000 panel - Serum or Plasma DAVIDE CHOA Start: 06-07-2023 ANTIBODY IDENTIFICATION DAVIDE CHAO Start: [...] Plasma DAVIDE CHAO Start: 03-18-2023 EXTRA URINE APPIAH TUBE DAVIDE CHAO Start: 03-18-2023 Hepatic function [...] CHAO Start: 03-13-2023 URINALYSIS MICROSCOPIC ONLY DAVIDE GREGG [employer] Start: 03-13-2023 URINALYSIS WITH REFLEX MICROSCOPIC AND CULTURE DAVIDE CHAO Start: 03-13-2023 XR CHEST 1 VIEW DAVIDE CHAO Start: 03-13-2023 aPTT in Blood by Coagulation assay DAVIDE CHAO Start: 03-13-2023 Basic metabolic 2000 panel - Serum or Plasma DAVIDE ESPITIAAGUSTO Start: 03-13-2023 C-reactive protein DAVIDE ESPITIAJANETTESYDNEY Start: 03-13-2023 CBC W Auto Differential panel - Blood DAVIDE CHAO Start: 03-13-2023 Hepatic function 2000 panel - Serum or Plasma DAVIDE ESPITIAJANETTESYDNEY Start: 03-13-2023 Lactate [Moles/volume] in Serum or Plasma DAVIDE ESPITIAJANETTESYDNEY Start: 10-09-2023 Magnesium [Mass/volume] in Serum or Plasma DAVIDE ESPITIAAGUSTO Start: 03-13-2023 Natriuretic peptide B [Mass/volume] in Blood DAVIDE ZHANNA Start: 03-13-2023 Phosphate [Mass/volume] in Serum or Plasma DAVIDE CHAO Start: 03-13-2023 PROTIME-INR DAVIDE ESPITIAJANETTESYDNEY Start: 03-13-2023 TROPONIN I, HIGH SENSITIVITY DAVIDE ESPITIAJANETTESYDNEY Start: 03-13-2023 EXTRA URINE APPIAH TUBE DAVIDE ESPITIAJANETTESYDNEY Start: 03-13-2023 Urinalysis microscopic panel - Urine [...] on above: Performed By: #### T+S #### [place] [address] Start: 11-11-2022 Antibody screen Andry Rueda MD [...] Urine test visual color cmprsn meths Nery Epsarza MD Work Phone: Start: 11-16-2021 care only [...] Egal Work Phone: Start: 09-01-2018 Urinalysis Tony Gilmansame Egal Work Phone: Start: 08-17-2018 UROLOGY SERVICE [...] of 2) Zoster Vaccines (1 of 2) [facility] Start: 08-19-2029 Screening for malignant neoplasm of cervix Cervical Cancer Screening [facility] Start: 05-04-2026 DTaP/Tdap/Td vaccine (2 - Td or Tdap) DTaP/Tdap/Td vaccine (2 - Td or Tdap) [facility] Start: 05-04-2026 DTaP/Tdap/Td Vaccines (2 - Td or Tdap) DTaP/Tdap/Td Vaccines (2 - Td or Tdap) [facility] Start: 05-04-2026 Tetanus vaccination [facility] Start: 05-04-2026 Urine microalbumin profile [facility] Start: 01-07-2026 HPV TESTING HPV TESTING [facility] Start: 01-07-2026 PAP TESTING PAP TESTING [facility] Start: 01-07-2026 Screening for malignant neoplasm of cervix [facility] Start: 05-05-2025 End: 05-05-2025 Patient encounter procedure [facility] Comment on above: Anatomy Anatomy/OB Start: 04-07-2025 [facility] Start: 04-07-2025 End: 04-07-2025 Emergency department patient visit Departed Emergency -Emergency Department Work Phone: Start: 04-07-2025 End: 04-07-2025 Patient encounter procedure 04/07/2025 1:00 PM EST Routine Office Visit OB/Gynecology [address] [place] [address] Katalina Cooper APRN.CNM [address] [place] [address] OB OB/Gynecology Comment on above: OB Start: 03-26-2025 [facility] Start: 03-26-2025 SARS-CoV-2, Influenza & RSV (PCR) SARS-CoV-2, Influenza & RSV (PCR) [facility] Start: 03-26-2025 Plain chest X-ray Chest 1 View (Portable) [facility] Start: 03-26-2025 End: 03-26-2025 Emergency department patient visit Departed Emergency -Emergency Department Work Phone: Start: 03-17-2025 Replacement of electronic heart device, pulse generator [facility] Start: 03-14-2025 End: 03-14-2025 Evaluation of diagnostic study results [facility] Start: 03-10-2025 End: 03-10-2025 Patient encounter procedure [facility] Comment on above: Nuchal NUchal/OB Start: 02-11-2025 End: 02-11-2025 ambulatory 02/11/2025 3:30 PM EDT Results Only [facility] [address] [place] [address] [facility] Start: 02-10-2025 End: 02-10-2025 Patient encounter procedure 02/10/2025 2:45 PM EDT Initial Office Visit OB/Gynecology [address] [place] [address] Clarisse Medel APRN.[employer]OOM MAKER [address] [place] [address] New OB OB/Gynecology Comment on above: New OB Start: 02-10-2025 End: 02-10-2026 OBSTETRIC ULTRASOUND [facility] OBSTETRIC ULTRASOUND [facility] Anc Imaging Routine with uncertain dates in first trimester (HCC) Expected: 02/10/2025, Expires: 02/10/2026 [facility] Work Phone: Comment on above: Expected: 02/10/2025, Expires: Start: 02-03-2025 COVID-19 Vaccine ( season) COVID-19 Vaccine ( season) [facility] Start: 02-03-2025 Influenza vaccination [facility] Start: 01-30-2025 End: 01-30-2025 ambulatory OB/Gynecology Comment on above: Threatened (HCC) [O20.0] Threatened (HCC) Start: 01-15-2025 End: 01-15-2026 US Pelvis PELVIC US [facility] Anc Imaging Routine Threatened (HCC) Expected: 01/15/2025, Expires: 01/15/2026 [facility] Work Phone: Comment on above: Expected: 01/15/2025, Expires: Start: 01-15-2025 End: 01-15-2025 Patient encounter procedure 01/15/2025 11:10 AM EDT Office Visit OB/Gynecology [address] [place] [address] Pam Robertson MD [address] [place] [address] Early pregancy post tubal reversal, needs quants and ultrasound ordered OB/Gynecology Comment on above: Early pregancy post tubal reversal, need s quants and ultrasound ordered Start: 01-03-2025 Choriogonadotropin ( test) [Presence] in Serum or Plasma [facility] Start: 01-03-2025 Serum progesterone measurement [facility] Start: 11-23-2024 [facility] Start: 11-23-2024 End: 11-23-2024 [facility] Start: 09-10-2024 End: 09-10-2024 ambulatory 09/10/2024 2:00 PM EDT Procedure OB/Gynecology [address] [place] [address] [employer], [employer] [address] [place] [address] Uterine cyst [N85.8]; Adenomyosis of uterus [N80.03] OB/Gynecology Comment on above: Uterine cyst [N85.8]; Adenomyosis of mashpee lizzy [N80.03] Start: 09-09-2024 End: 09-09-2024 Patient encounter procedure 09/09/2024 12:40 PM EDT Office Visit [facility] [place] [address] [place], [place] [id number] Davide Chao MD [address] [place] [address] 3 month follow up Family [facility] Comment on above: 3 month follow up Start: 09-05-2024 End: 09-05-2025 US Pelvis PELVIC US [facility] Anc Imaging Routine Uterine cyst Adenomyosis of uterus Expected: 09/05/2024, Expires: 09/05/2025 [facility] Work Phone: Comment on above: Expected: 09/05/2024, Expires: Start: 08-15-2024 End: 11-14-2024 Folate [Mass/volume] in Serum or Plasma FOLATE, SERUM Lab Routine Fatigue, unspecified type Expected: 08/15/2024, Expires: 11/14/2024 [facility] Comment on above: Expected: 08/15/2024, Expires: Start: 08-15-2024 End: 11-14-2024 Iron and Iron binding capacity panel - Serum or Plasma IRON AND TIBC Lab Routine Fatigue, unspecified type Expected: 08/15/2024, Expires: 11/14/2024 [facility] Work Phone: Comment on above: Expected: 08/15/2024, Expires: Start: 03-29-2024 End: 03-29-2024 ambulatory 03/29/2024 11:40 AM EDT [facility] [place] [address] [place] [address] Davide Chao MD [address] [facility] [place] [address] Chest pain, ER visit-nothing found, can't swallow [facility] [place] Comment on above: Chest pain, ER visit-nothing found, can' t swallow Start: 02-04-2024 Covid-19 Vaccine ( season) Covid-19 Vaccine () [facility] Start: 02-04-2024 Influenza vaccination Influenza Vaccine (#1) [place] Start: 10-17-2023 End: 01-16-2024 Basic metabolic 2000 panel - Serum or Plasma [facility] Work Phone: Comment on above: Expected: 10/17/2023, Expires: Start: 10-17-2023 End: 01-16-2024 Thyrotropin [Units/volume] in Serum or Plasma [facility] Comment on above: Expected: 10/17/2023, Expires: 4 Start: 10-03-2023 Patient discharge [facility] Start: 10-03-2023 Procedure discontinued [facility] Start: 10-03-2023 Ambulation without limitation [facility] Start: 10-03-2023 Medical regimen orders management [facility] Start: 10-03-2023 Medication education [facility] Start: 10-03-2023 Taking patient vital signs [facility] Start: 10-03-2023 Vital signs measurements [facility] Start: 10-03-2023 [facility] Start: 06-28-2023 Assay of thyroid stimulating hormone tsh ASSAY THYROID STIM HORMONE [facility] Start: 06-28-2023 Blood count complete auto&auto difrntl wbc COMPLETE CBC W/AUTO DIFF WBC [facility] Start: 06-28-2023 Collection venous blood venipuncture ROUTINE VENIPUNCTURE [facility] Start: 06-19-2023 End: 06-19-2023 Patient encounter procedure 06/19/2023 1:00 PM EST Office Visit [facility] [address] [place] [address] Alina Alvarado MD [address] [place] [address] [facility] Start: 06-09-2023 End: 06-09-2023 Patient encounter procedure 06/09/2023 1:00 PM EST Appointment [employer] [facility] [employer] [facility] [address] [facility] [address] Alina Alvarado MD [address] [place] [address] [employer] [facility] [employer] [facility] Start: 06-06-2023 End: 06-06-2023 Patient encounter procedure 06/06/2023 1:45 PM EST Office Visit [facility] [address] [place] [address] Alina Alvarado MD [address] [place] [address] [facility] Card[facility] Start: 03-28-2023 End: 06-27-2023 CBC panel - Blood by Automated count CBC Lab Routine Anemia, unspecified type Expected: 03/28/2023, Expires: 06/27/2023 [facility] Work Phone: Comment on above: Expected: 03/28/2023, Expires: Start: 03-28-2023 End: 06-27-2023 Comprehensive metabolic 2000 panel - Serum or Plasma COMP METABOLIC PANEL Lab Routine Anemia, unspecified type Elevated liver function tests Expected: 03/28/2023 (Approximate), Expires: 06/27/2023 [facility] Work Phone: Comment on above: Expected: 03/28/2023 (Approximate), Expi res: 06/27/2023 Start: 03-28-2023 End: 06-27-2023 Natriuretic peptide.B prohormone N-Terminal [Mass/volume] in Serum or Plasma NT PRO BNP Lab Routine Bilateral leg edema Anemia, unspecified type Elevated liver function tests Expected: 03/28/2023, Expires: 06/27/2023 [facility] Work Phone: Comment on above: Expected: 03/28/2023, Expires: Start: 03-18-2023 Vital signs measurements [facility] Start: 03-18-2023 End: 03-18-2023 [facility] Start: 03-18-2023 Patient discharge [facility] Start: 03-11-2023 Patient discharge [facility] Start: 03-10-2023 Administration of blood product [facility] Start: 03-10-2023 Administration of medication [facility] Start: 03-10-2023 Application of ice collar, cap or bag [facility] Start: 03-10-2023 Catheterization of vein [facility] Start: 03-10-2023 Introduction of urinary catheter [facility] Start: 03-10-2023 Measuring intake and output [facility] Start: 03-10-2023 Notification of physician [facility] Start: 03-10-2023 Procedure discontinued [facility] Start: 03-10-2023 Provision of activity privileges [facility] Start: 03-10-2023 Vital signs measurements [facility] Start: 03-10-2023 [facility] Start: 03-10-2023 Consultation [facility] Start: 03-09-2023 Admission procedure [facility] Start: 03-08-2023 monitoring labor phys written report MONITOR W/REPORT [facility] Start: 03-08-2023 nonstress test NON-STRESS TEST [facility] Start: 03-08-2023 Urnls dip stick/tablet reagent auto microscopy URINALYSIS AUTO W/SCOPE [facility] Start: 03-08-2023 Nonstress test [facility] Start: 03-08-2023 Obstetric monitoring [facility] Start: 03-08-2023 Vital signs measurements [facility] Start: 03-08-2023 [facility] Start: 03-08-2023 Patient discharge [facility] Start: 03-04-2023 [facility] Start: 03-04-2023 Nonstress test [facility] Start: 03-04-2023 Biophysical profile panel US [facility] Start: 03-04-2023 Ultrasonography for biophysical profile without non-stress testing Biophysical Prof W/O Non Stres [facility] Start: 03-04-2023 Obstetric monitoring [facility] Start: 03-04-2023 Vital signs measurements [facility] Start: 03-04-2023 [facility] Start: 03-04-2023 Patient discharge [facility] Start: 03-04-2023 [facility] Start: 03-01-2023 Nonstress test [facility] Start: 03-01-2023 Obstetric monitoring [facility] Start: 03-01-2023 Vital signs measurements [facility] Start: 03-01-2023 [facility] Start: 02-18-2023 Genital Culture Genital Culture [facility] Start: 02-18-2023 Microscopic observation [Identifier] in Unspecified specimen by Gram stain Gram Stain [facility] Start: 02-18-2023 Source specific culture [facility] Start: 02-18-2023 Procedure [facility] [facility] Start: 02-18-2023 Administration of blood product [facility] Start: 02-18-2023 Nonstress test [facility] Start: 02-18-2023 Obstetric monitoring [facility] Start: 02-18-2023 Vital signs measurements [facility] Start: 02-18-2023 [facility] Start: 02-18-2023 Chlamydia deoxyribonucleic acid detection [facility] Start: 02-18-2023 Patient discharge [facility] Start: 02-03-2023 Covid-19 Vaccine () Covid-19 Vaccine () [facility] Start: 02-03-2023 Influenza vaccination [facility] Start: 01-30-2023 Nonstress test [facility] Start: 01-30-2023 Obstetric monitoring [facility] Start: 01-30-2023 Vital signs measurements [facility] Start: 01-30-2023 [facility] Start: 01-30-2023 Patient discharge [facility] Start: 01-24-2023 [facility] Start: 01-23-2023 Troponin I measurement [facility] Start: 01-23-2023 [facility] Start: 01-16-2023 Following clinical pathway protocol [facility] Start: 01-16-2023 Iv infusion hydration initial 31 min-1 hour HYDRATION IV INFUSION INIT [facility] Start: 12-21-2022 Patient referral [facility] Work Phone: Start: 11-25-2022 Patient referral [facility] Work Phone: Start: 11-17-2022 OLIVER, Provider: Sylvia Calle, Status: Pen, Time: 11:30 AM OLIVER, Provider: Sylvia Calle, Status: Pen, Time: 11:30 AM [facility] Work Phone: Start: 11-15-2022 AQUATICFU4, Provider: Katalina Roach, Status: Pen, Time: 11:30 AM AQUATICFU4, Provider: Katalina Roach, Status: Pen, Time: 11:30 AM [facility] Work Phone: Start: 11-10-2022 AQUATICFU4, Provider: Katalina Roach, Status: Pen, Time: 11:30 AM AQUATICFU4, Provider: Katalina Roach, Status: Pen, Time: 11:30 AM [facility] Work Phone: Start: 11-08-2022 AQUATICFU4, Provider: Katalina Roach, Status: Pen, Time: 11:30 AM AQUATICFU4, Provider: Katalina Roach, Status: Pen, Time: 11:30 AM [facility] Work Phone: Start: 10-28-2022 Patient referral [facility] Work Phone: Start: 08-17-2022 Liquid based cervical cytology screening [facility] Start: 02-15-2022 Patient encounter procedure ANNUAL, Provider: Andry Rueda, Status: Pen, Time: 11:00 AM [facility] Work Phone: Start: 02-03-2022 Influenza vaccination [facility] Start: 01-03-2022 Influenza vaccination Flu vaccine (#1) [facility] Start: 11-16-2021 Patient encounter procedure [facility] Start: 11-16-2021 PPV, Provider: Andry Rueda, Status: Pen, Time: 2:00 PM PPV, Provider: Andry Rueda, Status: Pen, Time: 2:00 PM [facility] Work Phone: Start: 10-12-2021 End: 10-13-2022 [facility] Comment on above: Consult provider prior [...] fentaNYL 2 mcg/mL - Bupivacaine 0.0625% PCEA ([facility] ONLY) ; DEMAND/ PCEA Dose = 4BASAL/ Continuous Rate = 10One Hour Dose Limit = 34 mL/hr mL per hourNotes from Pharmacy: [Fentanyl 2 mcg/mL - Bupivacaine 0.0625%] Start: 12-Oct-2021 End: 12-Oct-2022 Ordered: 12-Oct-2021 Osiel Valentin [facility] Start: 10-08-2021 EPVOB, Provider: Andry Rueda, Status: Pen, Time: 10:30 AM EPVOB, Provider: Andry Rueda, Status: Pen, Time: 10:30 AM [facility] Work Phone: Start: 10-01-2021 EPVOB, Provider: Andry Rueda, Status: Pen, Time: 11:15 AM EPVOB, Provider: Andry Rueda, Status: Pen, Time: 11:15 AM [facility] Work Phone: Start: 09-26-2021 Diabetes mellitus screening Diabetes Screening [facility] Start: 09-24-2021 EPVOB, Provider: Anil Panchal, Status: Pen, Time: 11:15 AM EPVOB, Provider: Anil Panchal, Status: Pen, Time: 11:15 AM [facility] Work Phone: Start: 09-17-2021 EPVOB, Provider: Andry Rueda, Status: Pen, Time: 11:30 AM EPVOB, Provider: Andry Rueda, Status: Pen, Time: 11:30 AM [facility] [address] Work Phone: Start: 09-10-2021 EPVOB, Provider: Andry Rueda, Status: Pen, Time: 11:00 AM EPVOB, Provider: Andry Rueda, Status: Pen, Time: 11:00 AM [facility] [address] Work Phone: Start: 08-13-2021 EPVOB, Provider: Andry Rueda, Status: Pen, Time: 9:00 AM EPVOB, Provider: Andry Rueda, Status: Pen, Time: 9:00 AM [facility] Work Phone: Start: 07-30-2021 EPVOB, Provider: Andry Rueda, Status: Pen, Time: 11:15 AM EPVOB, Provider: Andry Rueda, Status: Pen, Time: 11:15 AM [facility] Work Phone: Start: 07-20-2021 End: 07-20-2021 Patient encounter procedure 07/20/2021 Office Visit Cardiology Yuri Palencia MD [address] [place], [place] [id number] [facility] Start: 06-15-2021 Screening for malignant neoplasm of cervix [facility] Start: 05-17-2021 End: 07-18-2022 Echocardiography Echocardiogram complete Echocardiography Routine Palpitations Expected: 05/17/2021, Expires: 07/18/2022 [facility] Work Phone: Comment on above: Expected: 05/17/2021, Expires: 3 Start: 05-17-2021 End: 07-18-2022 Extended Holter Monitor (3-7 days) Extended Holter Monitor (3-7 days) [facility] Services Routine Palpitations Expected: 05/17/2021, Expires: 07/18/2022 [facility] Comment on above: Expected: 05/17/2021, Expires: 3 Start: 02-03-2021 Influenza vaccination [facility] Start: 2020 Screening for malignant neoplasm of cervix [facility] Start: 02-04-2020 Influenza vaccination Sequential Influenza Vaccine (#1) [facility] Start: 02-04-2020 Influenza vaccination given Sequential Influenza Vaccine (#1) [facility] Start: 02-03-2018 Influenza vaccination given SEQUENTIAL INFLUENZA VACCINE (#1) [facility] Start: 2017 HPV Vaccine (1 - 3-dose SCDM series) HPV Vaccine (1 - 3-dose SCDM series) [facility] Start: 2011 Screening for malignant neoplasm of cervix [facility] Start: 2009 Hepatitis A Vaccines (1 of 2 - Risk 2-dose series) Hepatitis A Vaccines (1 of 2 - Risk 2-dose series) [facility] Start: 2009 Hepatitis B Vaccine (1 of 3 - 19+ 3-dose series) Hepatitis B Vaccine (1 of 3 - 19+ 3-dose series) [facility] Start: 2009 Third diphtheria, tetanus and acellular pertussis (DTaP) vaccination TDAP (ADULT) [facility] Start: 2008 Anxiety Screening Anxiety Screening [facility] Start: 2008 Hepatitis C antibody, confirmatory test Hepatitis C Screening [facility] Start: 2008 Hepatitis C screening [facility] Start: 2008 Tetanus vaccination TETANUS [facility] Start: 2006 COVID-19 Vaccine (1 of 2) COVID-19 Vaccine (1 of 2) [facility] Start: 2006 COVID-19 Vaccine (1) COVID-19 Vaccine (1) [facility] Start: 2005 HIV screening [facility] Start: 2002 Adolescent depression screening assessment Depression Screening (PHQ9) [facility] Start: 2002 Depression Screen Depression Screen [facility] Start: 2002 Depression screening using PHQ-9 (Patient Health Questionnaire 9) score [facility] Start: 1995 COVID-19 Vaccine (#1) COVID-19 Vaccine (#1) [facility] Start: 1995 COVID-19 Vaccine (1) COVID-19 Vaccine (1) [facility] Start: 1993 History and physical examination, annual for health maintenance Wellness Visit [facility] Start: 1991 MMR Vaccines (1 of 1 - Standard series) MMR Vaccines (1 of 1 - Standard series) [facility] Start: 1991 Varicella vaccination Varicella Vaccines (1 of 2 - 2-dose childhood series) [facility] Start: 1991 Varicella vaccine (1 of 2 - 2-dose childhood series) Varicella vaccine (1 of 2 - 2-dose childhood series) [facility] Start: 1990 COVID-19 VACCINE (#1) COVID-19 VACCINE (#1) [facility] Start: 1990 HEPATITIS B (1 of 3 - 3-dose series) HEPATITIS B (1 of 3 - 3-dose series) [facility] Start: 1990 Hepatitis B vaccination HEP B VACCINE (1 of 3 - 3-dose series) [facility] Start: 1990 Hepatitis B Vaccine (1 of 3 - 3-dose series) Hepatitis B Vaccine (1 of 3 - 3-dose series) [facility] Start: 1990 Hepatitis B Vaccines (1 of 3 - 3-dose series) Hepatitis B Vaccines (1 of 3 - 3-dose series) [facility] Start: 1990 Hepatitis C antibody, confirmatory test HEPATITIS C VIRUS SCREENING [facility] Start: 1990 Hepatitis C screening HEPATITIS C VIRUS SCREENING [facility] Start: 1990 HIV screening HIV Screening [facility] Start: 1990 Lipid panel Lipid Panel [facility] Start: 1990 Screening for malignant neoplasm of cervix PAP SMEAR [facility] Start: 1990 Tetanus vaccination TETANUS EVERY 10 YR [facility] Start: 1990 Yearly Adult Physical Yearly Adult Physical [facility] End: 03-13-2023 Bacteria identified in Urine by Culture [facility] Work Phone: Comment on above: Once (Lab) for 1 Occurrences starting until 03/13/2023 End: 06-07-2023 Bacteria identified in Urine by Culture Urine Culture Microbiology Routine Once (Lab) for 1 Occurrences starting 06/07/2023 until 06/07/2023 [facility] Work Phone: Comment on above: Once (Lab) for 1 Occurrences starting until 06/07/2023 Bacteria identified in Urine by Culture Urine Culture Microbiology Routine 06/06/2023 11:41 PM EST [facility] Work Phone: Basic metabolic 2008 panel with ionized calcium - Serum or Plasma [facility] End: 06-06-2023 Blood type and Indirect antibody screen panel - [facility] Work Phone: Comment on above: Once (Lab) for 1 Occurrences starting until 06/06/2023 CBC W Auto Different ial panel - Blood [facility] CBC W Auto Different ial panel - Blood [facility] Creatinine [Mass/vol ume] in Urine collected for unspecified duration [facility] End: 03-13-2023 Extra Urine [employer] [facility] Work Phone: Comment on above: Once for 1 Occurrences starting 03/13/20 until 03/13/2023, 1 completed End: 06-06-2023 Extra Urine [employer] [facility] Work Phone: Comment on above: Once for 1 Occurrences starting 06/06/19 24 until 06/06/2023 Biophysical pr ofile panel US [facility] Genital microscopy, culture and sensitivities [facility] Hepatitis B surface antigen measurement [facility] Hepatitis C antibody measurement [facility] HIV 1+2 Ab+HIV1 p24 Ag [Presence] in Serum or Plasma by Immunoassay [facility] HOLTER MONITOR - PHYSICAL THERAPY NURSE JOANN R MONITOR - PHYSICAL THERAPY NURSE ECG Routine Tachycardia Near syncope Dizziness and giddiness Ordered: 10/20/2022 [facility] Comment on above: Ordered: 10/20/2022 End: 05-31-2023 HOLTER MONITOR - CORRECTION HOLTER MONITOR - PHYSICAL THERAPY NURSE ECG Routine Near syncope Tachycardia 1 Occurrences starting 05/31/2023 until 05/31/2023 [facility] Comment on above: 1 Occurrences starting 05/31/2023 until 05/31/2023 Neisseria gonorrhoea e rRNA [Presence] in Unspecified specimen by MAYTE with probe detection [facility] Path report.final Dx Spec [facility] Patient Education [facility] Work Phone: Patient referral [facility] Work Phone: PCR test for Chlamyd ia trachomatis [facility] POC DOUGH BRAKER ULTRASOUND POC DOUGH BRAKER ULTRASO UND Anc Imaging Routine with uncertain dates in first trimester (HCC) Ordered: 02/10/2025 [facility] Comment on above: Ordered: 02/10/2025 Procedure [facility] Protein [Mass/volume ] in Urine [facility] Protein/Creatinine [ Mass Ratio] in Urine [facility] Protein/Creatinine [ Ratio] in Urine [facility] Rubella IgG measurement [facility] Source specific culture [facility] Treponema sp Ab [Pre sence] in Serum [facility] End: 03-13-2023 Urinalysis complete W Reflex Culture panel - Urine [facility] Work Phone: Comment on above: Once (Lab) for 1 Occurrences starting until 03/13/2023 End: 06-06-2023 Urinalysis complete W Reflex Culture panel - Urine [facility] Work Phone: Comment on above: Once (Lab) for 1 Occurrences starting until 06/06/2023 [facility] [place] Immunization Date Immunization Notes Care Provider [facility] 08-03-2023 influenza virus vaccine, unspecified formulation Davide Chao MD Work Phone: [facility] 06-17-2019 influenza virus vaccine, unspecified formulation Davide Chao MD Work Phone: [facility] 05-04-2016 RHO(D) immune globulin- IV or IM [facility] Provider [facility] Work Phone: 05-04-2016 tetanus toxoid, reduced diphtheria toxoid, and acellular pertussis vaccine, adsorbed [facility] Provider [facility] Work Phone: 03-23-2016 influenza, injectabl e, quadrivalent, contains preservative [facility] Provider [facility] 03-23-2016 influenza virus vaccine, unspecified formulation Gallito Couch MD Work Phone: [facility] 06-14-2013 influenza virus vaccine, unspecified formulation [facility] Provider [facility] 04-25-2012 RHO(D) immune globulin- IV or IM [facility] Provider [facility] Work Phone: 04-05-2012 influenza virus vaccine, whole virus [facility] Provider [facility] 06-22-2010 RHO(D) immune globulin- IV or IM [facility] Provider [facility] Payers Date Payer Category Payer Self-pay [id number] 2017 Unknown 2014 Medicaid [facility] MED[facility] [employer] xxxxxxxxxxx 2014-Present [id number] 2014 Medicaid [id number] 2014 Medicaid [id number] [id number]. [id number] 2014 Medicaid (Managed Care) [employer] [id number] 2014 Unknown [id number] 2014 Unknown [id number] 1.2.840.769135.1.13.239.2. 7.3.362237.315 1990 Unknown [id number] .840.1.022292.3.579.2. 278 1990 Unknown [id number] 2.16840.1.933488.3.579.2. 278 1990 Unknown [id number] 2.16840.1.444134.3.579.2. 668 1990 Unknown [id number] 2.16840.1.567533.3.579.2. 668 1990 Unknown [id number] 2.16840.1.171927.3.579.2. 903 1990 Unknown [id number] 2.16.840.1.415709.3.579.2. 903 1990 Unknown [id number] 2.16.840.1.539919.3.579.2. 903 1990 Unknown [id number] 2.16.840.1.918318.3.579.2. 903 1990 Unknown [id number] 2.16.840.1.200170.3.579.2. 903 1990 Unknown [id number] 2.16.840.1.901637.3.579.2. 903 1990 Unknown [id number] 2.16.840.1.727430.3.579.2. 1990 Unknown [id number] 2.16.840.1.169240.3.579.2. 732 1990 Unknown [id number] 2.16.840.1.877438.3.579.2. 1990 Unknown [id number] 2.16.840.1.162169.3.579.2. 174 1990 Unknown [id number] 2.16.840.1.305121.3.579.2. 174 1990 Unknown [id number] 2.16.840.1.452854.3.579.2. 174 1990 Unknown [id number] 2.16.840.1.025494.3.579.2. 174 1990 Unknown [id number] 2.16.840.1.388723.3.579.2. 174 1990 Unknown [id number] 2.16.840.1.140320.3.579.2. 3 1990 Unknown [id number] 2.16.840.1.131061.3.579.2. 903 1990 Unknown [id number] 2.16.840.1.117554.3.579.2. 356 1990 Unknown [id number] 2.16.840.1.269719.3.579.2. 356 1990 Unknown [id number] 2.16.840.1.282567.3.579.2. 356 1990 Unknown [id number] 2.16.840.1.340476.3.579.2. 1990 Unknown [id number] 2.16.840.1.928021.3.579.2. 1990 Unknown [id number] 2.16.840.1.904352.3.579.2. 1990 Unknown [id number] 2.16.840.1.014068.3.579.2. 1990 Unknown [id number] 2.16.840.1.132432.3.579.2. 1990 Unknown [id number] 2.16.840.1.852659.3.579.2. 1990 Unknown [id number] 2.16.840.1.831249.3.579.2. 479 1990 Unknown [id number] 2.16.840.1.355338.3.579.2. 1068 1990 Unknown [id number] 2.16.840.1.350161.3.579.2. 1068 1990 Unknown [id number] 2.16.840.1.942478.3.579.2. 1068 1990 Unknown [id number] 2.16.840.1.486493.3.579.2. 1068 1990 Unknown [id number] 2.16.840.1.634241.3.579.2. 1068 1990 Unknown [id number] 2.16.840.1.764605.3.579.2. 1068 1990 Unknown [id number] 2.16.840.1.508825.3.579.2. 1068 1990 Unknown [id number] 2.16.840.1.961438.3.579.2. 983 1990 Unknown [id number] 2.16.840.1.218275.3.579.2. 983 1990 Unknown [id number] 2.16.840.1.898211.3.579.2. 1243 1990 Unknown [id number] 2.16.840.1.567956.3.579.2. 1243 1990 Unknown [id number] 2.16.840.1.327599.3.579.2. 1243 1990 Unknown [id number] 2.16.840.1.497825.3.579.2. 983 1990 Unknown [id number] 2.16.840.1.060602.3.579.2. 651 1990 Unknown [id number] 2.16.840.1.071148.3.579.2. 983 1990 Unknown [id number] 2.16.840.1.187441.3.579.2. 651 1990 Unknown [id number] 2.16.840.1.016125.3.579.2. 651 1990 Unknown [id number] 2.16.840.1.738789.3.579.2. 651 1990 Unknown [id number] 2.16.840.1.444529.3.579.2. 627 1990 Unknown [id number] 2.16.840.1.953895.3.579.2. 627 1990 Unknown [id number] 2.16.840.1.547550.3.579.2. 627 1990 Unknown [id number] 2.16.840.1.387527.3.579.2. 627 Unknown [id number] 2.16.840.1.415495.3.579.2. 462 Unknown [id number] 2.16.840.1.125711.3.579.2. 462 Unknown [id number] 2.16.840.1.482695.3.579.2. 462 Unknown [id number] 2.16.840.1.309754.3.579.2. 462 Unknown [id number] 2.16.840.1.298520.3.579.2. 462 Unknown [id number] 2.16.840.1.733096.3.579.2. 462 Unknown [id number] 2.16.840.1.398859.3.579.2. 462 Unknown [id number] 2.16.840.1.690725.3.579.2. 462 Unknown [id number] 2..840.1.882840.3.579.2. 462 Unknown [id number] 2.840.1.877955.3.579.2. 462 Unknown [id number] 2..840.1.898184.3.579.2. 462 Unknown [id number] 2..840.1.505347.3.579.2. 462 Unknown [id number] 2.16.840.1.936564.3.579.2. 462 Unknown [id number] 2.840.1.067772.3.579.2. 462 Unknown [id number] 2.840.1.465034.3.579.2. 462 Unknown [id number] 2.16.840.1.210954.3.579.2. 462 Unknown [id number] 2.16.840.1.411840.3.579.2. 462 Unknown [id number] 2.16.840.1.031270.3.579.2. 462 Unknown [id number] 2.16.840.1.567971.3.579.2. 462 Unknown [id number] 2.16.840.1.677916.3.579.2. 462 Unknown [id number] 2.16.840.1.272764.3.579.2. 462 Unknown [id number] 2.16.840.1.386882.3.579.2. 462 Unknown [id number] 2.16.840.1.402127.3.579.2. 462 Unknown [id number] 2.16.840.1.740906.3.579.2. 462 Unknown [id number] 2.16.840.1.492495.3.579.2. 462 Unknown [id number] 2.16.840.1.052439.3.579.2. 462 Unknown [id number] 2.16.840.1.243900.3.579.2. 462 Unknown [id number] 2.16.840.1.884134.3.579.2. 462 Social History Date Type Detail Facility Start: 09-01-2018 End: 11-23-2024 Tobacco smoking status WVIS Current every day smoker [facility] Start: 01-23-2004 End: 01-24-2021 History of tobacco use Cigarette Smoker [facility] Start: 09-01-2018 End: 11-03-2023 Cigarettes smoked current (pack per day) - Reported [facility] Start: 1990 Sex Assigned At Not on file [facility] Start: 09-01-2018 Alcohol intake Not Asked [facility] Start: 07-29-2022 End: 09-21-2023 Tobacco smoking consumption unknown [facility] Start: 11-11-2021 End: 06-07-2023 Exposure to SARS-CoV-2 (event) Not sure [facility] Start: 09-27-2020 End: 06-10-2024 Tobacco use and exposure Never used [facility] Start: 09-27-2020 End: 05-09-2023 Alcohol intake Lifetime non-drinker (finding) [facility] Start: 09-27-2020 End: 06-21-2022 History SDOH Alcohol Frequency 1 [facility] Start: 05-17-2021 End: 04-07-2025 Tobacco smoking status NHIS Ex-smoker [facility] Start: 01-23-2004 End: 01-24-2021 History of tobacco use Current smoker [facility] Start: 06-23-2021 End: 02-10-2025 Alcohol intake Current non-drinker of alcohol (finding) [facility] Start: 11-29-2021 End: 06-21-2022 History SDOH Alcohol Frequency 2 [facility] Start: 11-29-2021 End: 06-21-2022 History SDOH Social Connections Living 8 [facility] Start: 11-29-2021 End: 06-21-2022 History SDOH Physical Activity DPW 0 [facility] Start: 11-29-2021 End: 06-21-2022 History SDOH Stress 4 [facility] Start: 11-29-2021 History SDOH Housing Places Lived 3 [facility] Start: 06-13-2019 Education 21 [facility] Start: 06-21-2022 History SDOH Stress 5 [facility] Start: 09-25-2020 None [facility] Start: 09-25-2020 Cigarettes [facility] Start: 1990 Sex Assigned At Female W [facility] Start: 10-20-2022 Tobacco Comment Currently vapes [facility] Start: 12-25-2024 [facility] Start: 06-21-2022 End: 11-03-2023 Social connection and isolation panel [facility] Do you belong to any clubs or organizations such as samaritan groups, unions, fraternal or athletic groups, or school groups? No [facility] Are you now , , , , never or living with a partner? Living with partner [facility] How often to you hav e a drink containing alcohol? Monthly or less [facility] How many standard drinks containing alcohol do you have on a typical day? 1 or 2 [facility] How often do you hav e 6 or more drinks on 1 occasion? Never [facility] How hard is it for y ou to pay for the very basics like food, housing, medical care, and heating Not very hard [facility] Start: 05-06-2012 Adult Depression Screening Assessment 3 [facility] Do you feel stress - tense, restless, nervous, or anxious, or unable to sleep at night because your mind is troubled all the time - these days [OSQ] Very much [facility] (I/We) worried lexa er (my/our) food would run out before (I/we) got money to buy more. Never true [facility] Start: 03-13-2023 Tobacco smoking stat us NHIS Never smoked tobacco [facility] Work Phone: Start: 03-13-2023 End: 05-16-2023 Tobacco use and exposure User of smokeless tobacco [facility] Work Phone: Start: 06-23-2017 Gender identity Identifies as female gender (finding) [facility] Do you belong to any clubs or organizations such as samaritan groups, unions, fraternal or athletic groups, or school groups? Yes [facility] Tobacco Nicotine Use: Va ping Product in Last 90 Days. Type: Electronic Cigarettes (Vaping). [facility] Sex Assigned At [facility] Start: 10-19-2014 End: 08-27-2024 Sex Female (finding) [facility] Start: 09-01-2018 Sexual orientation Heterosexual (marcus tafoya) [facility] Are you now , , , , never or living with a partner? [facility] NEGATED: Highlighted row [facility] Medical Equipment Procedure Code Equipment Code Equipment Origin al Text Equipment Identifier Dates Fallopian tube clip/band ()[id number] Start: 03-10-2023 Goals Date Patient Goal Desired Activity /State Personal health goal Functional Status Date Assessment Result Facility 03-26-2025 Functional Status [facility] arlettedotty [facility] 03-26-2025 [facility] l [facility] 02-17-2025 Total score [AUDIT-C] 0 02/18/20 6:05 AM EDT UserMarty [facility] 02-17-2025 How often do you hav e a drink containing alcohol? Never 02/17/2025 6:05 AM EDT UserMarty Never [facility] 02-17-2025 Functional status Patient does n ot drink 02/17/2025 6:05 AM EDT UserMarty Patient does not drink [facility] 02-17-2025 How often do you hav e 6 or more drinks on 1 occasion? Never 02/17/2025 6:05 AM EDT UserMarty Never [facility] 03-22-2024 Functional Status Up ad krish [facility] 03-22-2024 Functional Status Standard Safet y ID band on, Call device within reach, Bed in low position, Wheels locked [facility] 10-03-2023 Functional status Ambulates;Bath room Privilege [facility] Work Phone: 03-18-2023 Functional status Activity Abili ty Independent [facility] Work Phone: 12-29-2014 Are you deaf, or do you have serious difficulty hearing No 12/29/2014 12:30 PM EDT Bonnie Batres LPN No [facility] 12-29-2014 Are you blind, or do you have serious difficulty seeing, even when wearing glasses No 12/29/2014 12:30 PM EDT Bonnie Batres LPN No [facility] 12-29-2014 Do you have serious difficulty walking or climbing stairs No 12/29/2014 12:30 PM EDT Bonnie Batres LPN No [facility] 12-29-2014 Do you have difficul ty dressing or bathing No 12/29/2014 12:30 PM EDT Bonnie Batres LPN No [facility] 12-29-2014 Because of a physica l, mental, or emotional condition, do you have difficulty doing errands alone such as visiting a physician's office or shopping No 12/29/2014 12:30 PM EDT Bonnie Batres LPN No [facility] Functional observable [facility] Mental Status Date Assessment Result Facility 11-23-2024 Cognitive function Level Of Cons ciousness Awake;Alert;Appropriate;Fol lows Commands [facility] Work Phone: 03-22-2024 Mental Status Orientation Oriented x 4 [facility] 03-22-2024 Mental Status [facility] 10-03-2023 Cognitive function Light Pain [facility] Work Phone: 03-10-2023 Cognitive function Level Of Cons ciousness Follows Commands;Drowsy [facility] Work Phone: 01-23-2023 Cognitive function Voice/Name [facility] Work Phone: 10-14-2021 Cognitive functi ons [id number] [facility] 12-29-2014 Because of a physica l, mental, or emotional condition, do you have serious difficulty concentrating, remembering, or making decisions No 12/29/2014 12:30 PM EDT Bonnie Batres LPN No [facility] Clinical Notes 07-04-2016 to 04-07-2025 Note Date & Type Note Facility 04-07-2025 Note HNO ID: [id number] Author: CLARISSE MEDEL APRN.BROOM MAKER Service: ? Author Type: Nurse Practitioner Type: Progress Notes Filed: 04/07/2025 16:49 Note Text: [facility] 03-26-2025 Discharge summary [facility] 03-26-2025 Radiology Diagnostic study note [facility] Imaging Services [address], [place] [address] Chest 1 View (Portable) MR#: [id number] Acct: [id number] Name: QUE MCGARRY Rep #: [id number] : 1990 F 34 From: Jaya Jaramillo MD PCP: Dr. Davide Chao MD Status: RE G ER Study:Chest 1 View (Portable) Date of Exam: 03/26/25 Exam# [id number] Ordering Dr: Rudy Osorio MD PROCEDURE: CHEST 1 VIEW (PORTABLE) 03/26/2025 REASON FOR EXAM: SOB TECHNIQUE: Frontal view of the chest. COMPARISON: Chest x-ray of 11/23/2024. RAD/Chest 1 View (Portable) IMPRESSION: Lungs appear clear throughout. No pleural effusion or pneumothorax is noted. The cardiomediastinal silhouette is within the normal range. No significant osseous change is seen. Negative examination. Reading Location: [id number] CC: Dr. Shanae Osorio MD; Dr. Davide Chao MD ~ Coupler: Signed [facility] 03-26-2025 Discharge summary Note Date/Time March 26, 2025 4:53pm [facility] Medical Records Department [address] [place] [address] Emergency Department Summary 03/26/25 MR#: [id number] Acct: [id number] Name: QUE MCGARRY Rep #:[id number] : 1990 34 From: Shanae Osorio MD PCP: Dr. Davide Chao MD Status:DE P ER Location: ED HPI History of Present Illness Chief Complaint: Shortness of Breath Narrative Narrative: Patient is a 34-year-old female presenting to the ED for intermittent dyspnea over the past few days. Patient is currently 15 weeks . Sees [facility] OBGYN. Patient states that over the past few days her pulse oxhas been dropping to 80%. States has been checking her pulse ox multiple times a day. She reports she is short of breath in the morning and then does not feelshortness of breath during the day. States she has been having palpitations foryears. She states that her has been gone for 2 weeks for his job and when he looked at his Apple Watch it showed the last time his pulse ox was in the 80s was when he was at home with her. Patient is concerned about mold. She states that they went and checked the furnace in the basement and there was black sludge all over. She denies lower extremity edema. Denies chest pain. Denies fever, chills, abdominal pain, vaginal bleeding, leakage of fluids. States when she is at home she has a headache, lightheadedness, fatigue and nausea but denies any of the symptoms here. [facility] Medical History Cryptogenic stroke Multiple personality disorder History of Clostridium difficile [...] gestation of Fungal toenail infection Home Medications ?Medication ?Instructions ?Recorded ?Last Taken ?Type prenat.vits,malgorzata,ify-qpiy-rrpry tab PO 01/03/25 Unknown History Probiotic PO DAILY 01/10/25 Unknown Hi story aspirin 81 mg tablet 162 mg PO QDAY 03/14/25 Unkn own History valacyclovir 500 mg tablet 500 mg PO QDAY 03/14/25 Unk nown History (Valtrex) Allergy/AdvReac Type Severity Reaction Status Date / Time metronidazole (From Flagyl) Allergy Upset Verified 03/26/25 13:13 Stomach Phenylpiperazine AdvReac suicidal Verified 03/26/25 13:13 Antidepressant ideation Tetracyclic Antidepressants AdvReac suicidal Verified 03/26/25 13:13 ideation Tricyclic Antidepressants AdvReac suicidal Verified 03/26/25 13:13 and Tricy ideation Family History Maternal Grandfather Hypertension Surgical History S/P dilation and curettage (~10/03/23) Status post hysteroscopy History of cardiac radiofrequency ablation History of esophagogastroduodenoscopy (EGD) History of colonoscopy History of loop electrical excision procedure (LEEP) Status post tubal ligation History of surgery Sterilization Hx of cholecystectomy Social History household members: children Smoking Status: Former smoker how long ago did patient quit smokin.7 yrs alcohol intake: never substance use type: does not use caffeine: Yes what type of physical activity do you participate in: none seatbelt use: always do you feel safe at home: Yes ROS ROS ED ROS Narrative see HPI EXAM Physical Exam Narrative Exam Narrative: Vital signs: Reviewed General: Alert and orientedx3. No acute distress HEENT: Head is normocephalic and atraumatic, sinuses nontender, pupils equal round and reactive. Nares are patent. Oropharynx and throat exams normal. Neck: Supple without lymphadenopathy nontender Cardiovascular: Regular rate and rhythm, no murmurs. No rubs or gallops. Normal S1 and S2 Respiratory: Clear to auscultation bilaterally. No wheezes, rales, rhonchi Abdominal: Soft and nontender. Normal bowel sounds. No guarding or rebound. Nonsurgical abdomen Extremities: No lower extremity edema noted. No tenderness. No bruising. Normal range of motion. Normal sensation. Skin: No rash or redness. Neurological: Cranial nerves II through XII are grossly intact. Normal strengthand sensation. Normal cerebellar function The rest of the physical exam is unremarkable Const Vital Signs: 03/26/25 13:09 03/26/25 13:10 03/26/25 15:51 Temperature 98.2 F Temperature Source Oral Pulse Rate 88 82 Respiratory Rate 16 16 Respiratory Effort Normal Non-Labored Respiratory Depth Normal Respiratory Pattern Normal Blood Pressure 118/79 99/71 Blood Pressure Mean 92 80 Pulse Ox 100 100 Oxygen Delivery Method Room Air Room Air 03/26/25 15:51 Temperature 98.2 F Temperature Source Pulse Rate 82 Respiratory Rate 16 Respiratory Effort Respiratory Depth Respiratory Pattern Blood Pressure 99/71 Blood Pressure Mean 80 Pulse Ox 100 Oxygen Delivery Method MDM MDM MDM Narrative Medical decision making narrative: Patient is a 34-year-old female presenting emergency department for multiple complaints including palpitations that been going on for years and intermittent shortness of breath with low oxygen levels on pulse ox while only in her house. Patient was seen and examined. Vitals are stable. Resting in bed comfortably no acute distress. She is on her percent on room air. She is not tachycardic. She is afebrile. Stable BP. Differential includes but is not limited to: Carbon monoxide poisoning, pneumonia, ACS, cardiac dysrhythmia, electrolyte abnormality, PE Patient denies any abdominal pain, vaginal bleeding, leakage of fluids, no indication for ultrasound imaging in terms of her . Carbon monoxide level not significantly elevated at 5.0. EKG shows sinus rhythm with occasional PVCs. No ischemic changes. No dysrhythmia. CBC with no leukocytosis and normal hemoglobin. BMP with no significant abnormalities. D-dimer using years criteria is negative, no indication for CTA of the chest. Troponin within normal limits. TSH and magnesium within normal limits. Chest x-ray obtained and reviewed by myself with no opacities, pneumothorax or wide mediastinum. Radiology read in agreement. Again patient has no symptoms at time of evaluation, she states she only has symptoms while in her house. She states her and her are getting a hotel room tonight and called their landlord about the black sludge found in the basement. Patient discharged from the Emergency Department. I do not feel that the patient's evaluation reveals any acute reason for admission atthis time. I instructed them to either follow-up with their primary care physician or promptly return to the Emergency Department for reevaluation shouldsymptoms worsen or new symptoms develop. I explained what symptoms would indicate the need to return to the emergency department. Shared decision making was used. The patient voiced understanding of the treatment plan and is agreeable with it. Clinical impression: palpitations dyspnea History & Record Review Discussion w/independent historian: Patient Lab Data Attestation: I reviewed the patient's lab results. Labs: Laboratory Results - last 24 hr 03/26/25 13:54 WBC 10.3 RBC 4.01 L Hgb 12.6 Hct 35.8 L MCV 89.3 MCH 31.4 MCHC 35.2 RDW Std Deviation 45.8 H RDW Coeff of Debra 14.0 Plt Count 264 MPV 9.6 Immature Gran % (Auto) 0.800 Neut % (Auto) 75.4 H Lymph % (Auto) 16.0 L [place] % (Auto) 5.9 Eos % (Auto) 1.6 Baso % (Auto) 0.3 Absolute Neuts (auto) 7.8 H Absolute Lymphs (auto) 1.65 Nucleated RBC % 0 D-Dimer Quant (PE/DVT) 0.38 Sodium 136 Potassium 3.4 Chloride 104 Carbon Dioxide 18.9 L Anion Gap 13 BUN 7 Creatinine 0.64 L Estim Creat Clear Calc 136.26 Est GFR (MDRD) Non-Af 119 BUN/Creatinine Ratio 10.2 Glucose 110 H Calcium 8.7 Magnesium 2.1 Troponin T High Sens < 6 TSH 0.791 Radiography Chest X-Ray - ED: 2 View, Read by ED Physician, Normal, No Acute Disease and No Infiltrates Diagnostic Testing: Clinical Impression(s) from Imaging Studies Chest X-Ray 03/26/25 13:33 IMPRESSION: Lungs appear clear throughout. No pleural effusion or pneumothorax is noted. The cardiomediastinal silhouette is within the normal range. No significant osseous change is seen. Negative examination. Reading Location: [address] Discharge Plan Triage Chief Complaint: Shortness of Breath ED Provider: Shanae Osorio Dx/Rx/DC Orders Clinical Impression: Heart palpitations, Dyspnea, unspecified Instructions: ED Dyspnea, ED Heart Palpitations Prescriptions: No Action Probiotic PO DAILY prenat.vits,malgorzata,rsl-nrrg-uwqyc Tablet PO aspirin 81 mg tablet 162 mg PO QDAY valacyclovir [Valtrex] 500 mg tablet 500 mg PO QDAY Primary Care Provider: Davide Chao Referrals: Melissa Brasher DO [Med Staff - Active Staff, Obstetrics-Gynecology (OBGYN)] - As soon as possible Davide Chao MD [Primary Care Provider, Family Practice] - As soon as possible Activity Restrictions/Additional Instructions: Your evaluation in the Emergency Department did not reveal any acute reason for admission. However, I want to emphasize that you may be early in the course of adisease process or illness even if it is not present. For this reason you shouldfollow-up within 24 hours for reevaluation with either your primary care physician or if necessary back here in the Emergency Department. You should return to the Emergency Department immediately if your symptoms worsen or new symptoms develop. Print Language: Puerto Rican Disposition Disposition: Home, Self Care Discharge Date/Time: 03/26/25 15:53 What to do if you have Problems For any increased pain, shortness of breath, bleeding, nausea or vomiting, chestpain, or any unexpected problems, contact your Primary Care Provider. Call [facility] ([phone]) or report to the closest Emergency Room. Call 911 if necessary. 03/26/257 <Electronically signed by Shanae Osorio MD> Joseigner Signature (if applicable): CC: Dr. Davide Chao MD ~ Signed [facility] Work Phone: [phone]) 158-368910-10-2025 [facility] [address] [place] [address] OFFICE VISIT Date of Service: 03/14/25 MR#: [id number] Acct: [id number] Name: QUE MCGARRY Rep #: [id number] : 1990 Provider: Dr. Amber Motley MD Age/Sex: 34/F Location: [facility] Status: Signed HPI HPI History of Present Illness Details: The patient presents for evaluation of recurrent episodes of tachycardia and palpitations. She is a 34-year-old female with a history of PVCs and an attempted ablation in 2014 at [place]. Patient underwent diagnostic electrophysiology for suspectedSVT and infrequent PVCs. During the study patient had no inducible arrhythmia with programmed electrical stimulation on isoproterenol. No ablation was performed. Patient was seen and evaluated at [facility] 12/22/2018. It was felt her symptomsof palpitation were suggestive of PVCs but the PVC burden was not significant Enough to warrant EP study or ablation. It was recommended she continue medicaltherapy and discharged from the clinic. There is a reported history of stroke in 2020, characterized by facial drooping and persistent subjective neurological changes since that event. She also reports a history suggestive of postural orthostatic tachycardia syndrome (POTS), with symptoms of orthostatic hypotension, palpitations, and dyspnea on standing. The patient describes labile blood pressure, with episodes of both hypotension and intermittent hypertension, particularly following her most recent two years ago. Previous trials of calcium channel blockersand beta blockers were not tolerated due to exacerbation of hypotension. She hasattempted non-pharmacologic measures such as increased salt intake and use of compression stockings, with unclear benefit. The patient reports ongoing symptoms of palpitations, described as a rapid heartrate, chest pounding, and dizziness, which have been present since age 21. She notes that these episodes are often brief and infrequent, making them difficult to capture on ambulatory monitoring. She distinguishes between sensations of premature ventricular contractions (PVCs), atrial fibrillation, and other arrhythmias based on symptom quality. She denies recent episodes consistent withatrial fibrillation, noting that prior episodes were infrequent and of short duration. She also reports symptoms consistent with orthostatic intolerance, including dyspnea and tachycardia upon standing. There is a history of a transient ischemic attack or stroke in 2020, with residual subjective symptoms. Additional patient data: Patient is currently in her 13-week with her seventh . Holter monitor performed from December 31 through January 08, 2025, willian tilt table test performed on June 2023 showed normal blood pressure response orthostatictilt as well as nitroglycerin provocation. Diagnostic electrophysiology study performed 2014 at [place] showed no inducible arrhythmias and no ablation was performed. Holter monitoring's have shown PVCs but no sustained arrhythmias. Echocardiogram performed June 01, 2021 showed normal LVEF 50-55% with normalvalve function. Holter monitor performed May 17 through May 19, 2021 showed no arrhythmias. There were 237 PVCs representing 0.1% of the recording with 3 PACs. Specifically there is no evidence of atrial fibrillation. Review of systems: CONSTITUTIONAL: Fatigue positive, Fever negative RESPIRATORY: Shortness of breath positive (when standing up), Cough negative, Wheezing negative CARDIOVASCULAR: Chest pain negative, Palpitations positive (heart racing, pounding, fluttering, skipped beats), Edema negative, Pain while walking negative GASTROINTESTINAL: Nausea negative, Vomiting negative, Abdominal pain negative, Blood in stool negative, Constipation negative, Diarrhea negative, Heartburn negative, Loss of appetite negative METABOLIC/ENDOCRINE: Heat intolerance negative, Cold intolerance negative, Excessive thirst negative, Excessive hunger negative NEUROLOGICAL: Dizziness positive (especially with tachycardia or standing up), Extremity numbness negative, Extremity weakness negative, Headaches negative, Seizures negative, Tremors negative PSYCHIATRIC: Anxiety negative, Depression negative MUSCULOSKELETAL: Back pain negative, Joint pain negative, Joint swelling negative, Neck pain negative HEMATOLOGIC: Easily bleeds negative, Easily bruises negative, Lymphedema negative, Issues with blood clots negative IMMUNOLOGIC: Food allergies negative, Seasonal allergies negative Physical examination: GENERAL APPEARANCE: The patient is alert, oriented, and conversant with normal speech. She is well- groomed and in no acute distress. She is able to participate in the examination and follow commands appropriately. LUNGS: Lungs are clear to auscultation bilaterally. No wheezes, rales, or rhonchi are appreciated. No use of accessory muscles or increased work of breathing observed. CARDIAC: Regular rate and rhythm. No murmurs, rubs, or gallops detected on auscultation. No peripheral edemanoted. NEUROLOGICAL: Speech is fluent and appropriate. Mental status is intact with normal attention and comprehension. No facial droop or focal neurological deficits observed. PSYCHIATRIC: Mood and affect are appropriate to the situation. Behavior is cooperative and engaged throughout the encounter. Intake Vital Signs 01/03/25 15:35 03/14/25 15:32 Height 5 ft 6 in 5 ft 6 in Weight: 182 lb BMI 29.3 BP 97/67 Blood Pressure Location Lt brachial Position Sitting Respiration 18 Pulse 86 Pulse Source Monitor Intake Visit Reasons: EST/PALPS/HX OF AFIB/ABLATION Pre Press Manager Required: No Accompanied by: Self Is patient in pain?: No Allergies metronidazole (From Flagyl) Allergy (Verified 03/14/25 15:38) Upset Stomach Phenylpiperazine Antidepressant Adverse Reaction (Verified 03/14/25 15:38) suicidal ideation Tetracyclic Antidepressants Adverse Reaction (Verified 03/14/25 15:38) suicidal ideation Tricyclic Antidepressants and Tricy Adverse Reaction (Verified 03/14/25 15:38) suicidal ideation Medications ?Medication ?Instructions ?Recorded ?Confirmed ?Type prenat.vits,malgorzata,rni-uofu-ybonm tab PO 01/03/25 5 History Probiotic PO DAILY 01/10/25 03/14/25 H istory aspirin 81 mg tablet 162 mg PO QDAY 03/14/2503/05 History valacyclovir 500 mg tablet 500 mg PO QDAY 03/14/2503/29 History (Valtrex) Ejection fraction %: 50 Have you fallen in the past year?: No PFSH Medical History Multiple personality disorder [...] History of surgery Sterilization Hx of cholecystectomy Family History Maternal Grandfather Hypertension Social History household members: children Smoking Status: Former smoker how long ago did patient quit smokin.7 yrs alcohol intake: never substance use type: does not use caffeine: Yes what type of physical activity do you participate in: none seatbelt use: always do you feel safe at home: Yes ROS Const Const: Positive for fatigue; Negative for weakness Eyes Eyes: Negative for change in vision ENT ENT: Positive for dizziness; Negative for balance problems Cardio Chest Pain: Yes Frequency: daily Character: other (pressure/pinching) Location: left chest Duration: hours and continuous Palpitations: Yes feels like its: fast and irregular Edema: None Resp Respiratory: Positive for SOB with activity and SOB at rest; Negative for SOB orthopnea\SOB lying down Additional Details: anytime having PVCs GI GI: Negative nausea or heartburn Musc Musc: Negative for balance problems Neuro Neuro: Positive for dizziness, lightheadedness and near syncope; Negative for syncope or weakness Endo Endo: Positive for fatigue Supplemental Info Supplemental Information Diagnostics: Electrocardiogram Chest X-Ray Abdomen/Pelvis CT Past Visits: Cardiology Visit Today Assessment and Plan Assessment and Plan (1) Tachycardia: Status: Acute Comment: possible POTS, PVCs. I do not suspect atrial fibrillation as an etiology. I have not seen any documented A-fib through the Holter monitor available or in review of the records from [facility] or [facility]. Plan: The patient is a 34-year-old female with a remote history of tachycardia, PVCs, initially evaluatedin 2014 at [place]. An electrophysiology study that was performed but no ablation was performed as no arrhythmia could be induced. There is diagnostic uncertainty regarding the original arrhythmia, as proceduralrecords are unavailable and the patient reports conflicting information from prior providers. She has a significant history of cerebrovascular event (stroke/TIA in 2020), which increases her thromboembolic risk if atrial fibrillation is present. Recent ambulatory monitoring (Holter, December 31?January) did not document atrial fibrillation. The monitor captured sinus rhythm with variable rates and one brief episode of atrial tachycardia with aberrancy, but no sustained or recurrent AF. Symptomatic episodes correlated with sinus rhythm, suggesting that her palpitations are not due to recurrent AF at this time. Given her history of stroke/TIA and prior suspected AF, there is a high index ofsuspicion for paroxysmal arrhythmia not captured on short-term monitoring. The diagnostic complexity is increased by her inability to tolerate external monitors and the intermittent nature of her symptoms. The risk of recurrent cerebrovascular events mandates a thorough evaluation for occult AF. Plan: Diagnostics/Labs: Consider implantable loop recorder (ILR) placement to provide long-term, continuous rhythm monitoring, as external monitors have been inadequate and symptoms are infrequent. This will help clarify the presence or absence of paroxysmal AF and guide anticoagulation decisions. I suspect predominantly patient has palpitation secondary to sinus tachycardia, rare PVCs. Patient describes some orthostatically mediated symptoms. Possibly postural tachycardia syndrome could be inthe differential although prior tilt table testing did not support this diagnosis. Patient reports that she had trialed beta-blockers and calcium channel blockers limited by hypotension. I recommended the option of Florinef or midodrine but patient reports that she has also significant spikes in blood pressure. This limits her options. For now I recommended continued hydration and lower extremity support hose. Will pursue implantable loop recorder to delineate any critical arrhythmia such as nonsustained VT or atrial fibrillation. At present insignificant data to recommend anticoagulation but her prior history of TIA makes a critical to rule out A-fib as an underlying pathology. I explained to her the risks and benefits of the loop recorder implantation including potential risk for infection bleeding. Will continue to monitor her device to our device clinic. Orders: Orders 2 12 Lead EKG performed by [facility] Today R00.0 - Tachycardia, unspecified Plan Details Follow Up: 2 Months Coding Level of Care Code Off vis,new,level 5 Diagnoses Tachycardia R00.0 Coding Level of Care Code Off vis,new,level 5 Diagnoses Tachycardia R00.0 Clinical Quality Measures Falls Risk Screening/Assistive Devices Have you fallen in the past year?: No Cardiac Ejection fraction %: 50 03/14/25 1617 ti > Date _ Reuben Motley MD Cosigner Signature: Date (if applicable) CC: ~ [facility]10-10-2025 Progress note Author Reuben Motley [facility] Note Date/Time March 14, 2025 4 :05pm [facility] [address] [place] [address] OFFICE VISIT Date of Service: 03/14/25 MR#: [id number] Acct: [id number] Name: QUE MCGARRY Rep #: [id number] : 1990 Provider: Dr. Amber Motley MD Age/Sex: 34/F Location: [facility] Status: Signed HPI HPI History of Present Illness Details: The patient presents for evaluation of recurrent episodes of tachycardia and palpitations. She is a 34-year-old female with a history of PVCs and an attempted ablation in 2014 at [place]. Patient underwent diagnostic electrophysiology for suspectedSVT and infrequent PVCs. During the study patient had no inducible arrhythmia with programmed electrical stimulation on isoproterenol. No ablation was performed. Patient was seen and evaluated at [facility] 12[facility]22/[facility]. It was felt her symptoms of palpitation were suggestive of PVCs but the PVC burden was not significant Enough to warrant EP study or ablation. It was recommended she continue medicaltherapy and discharged from the clinic. There is a reported history of stroke in 2020, characterized by facial drooping and persistent subjective neurological changes since that event. She also reports a history suggestive of postural orthostatic tachycardia syndrome (POTS), with symptoms of orthostatic hypotension, palpitations, and dyspnea on standing. The patient describes labile blood pressure, with episodes of both hypotension and intermittent hypertension, particularly following her most recent two years ago. Previous trials of calcium channel blockersand beta blockers were not tolerated due to exacerbation of hypotension. She hasattempted non-pharmacologic measures such as increased salt intake and use of compression stockings, with unclear benefit. The patient reports ongoing symptoms of palpitations, described as a rapid heartrate, chest pounding, and dizziness, which have been present since age 21. She notes that these episodes are often brief and infrequent, making them difficult to capture on ambulatory monitoring. She distinguishes between sensations of premature ventricular contractions (PVCs), atrial fibrillation, and other arrhythmias based on symptom quality. She denies recent episodes consistent withatrial fibrillation, noting that prior episodes were infrequent and of short duration. She also reports symptoms consistent with orthostatic intolerance, including dyspnea and tachycardia upon standing. There is a history of a transient ischemic attack or stroke in 2020, with residual subjective symptoms. Additional patient data: Patient is currently in her 13-week with her seventh . Holter monitor performed from December 31 through January 08, 2025, willian tilt table test performed on June 2023 showed normal blood pressure response orthostatictilt as well as nitroglycerin provocation. Diagnostic electrophysiology study performed 2014 at [facility] showed no inducible arrhythmias and no ablation was performed. Holter monitoring's have shown PVCs but no sustained arrhythmias. Echocardiogram performed June 01, 2021 showed normal LVEF 50-55% with normalvalve function. Holter monitor performed May 17 through May 19, 2021 showed no arrhythmias. There were 237 PVCs representing 0.1% of the recording with 3 PACs. Specifically there is no evidence of atrial fibrillation. Review of systems: CONSTITUTIONAL: Fatigue positive, Fever negative RESPIRATORY: Shortness of breath positive (when standing up), Cough negative, Wheezing negative CARDIOVASCULAR: Chest pain negative, Palpitations positive (heart racing, pounding, fluttering, skipped beats), Edema negative, Pain while walking negative GASTROINTESTINAL: Nausea negative, Vomiting negative, Abdominal pain negative, Blood in stool negative, Constipation negative, Diarrhea negative, Heartburn negative, Loss of appetite negative METABOLIC/ENDOCRINE: Heat intolerance negative, Cold intolerance negative, Excessive thirst negative, Excessive hunger negative NEUROLOGICAL: Dizziness positive (especially with tachycardia or standing up), Extremity numbness negative, Extremity weakness negative, Headaches negative, Seizures negative, Tremors negative PSYCHIATRIC: Anxiety negative, Depression negative MUSCULOSKELETAL: Back pain negative, Joint pain negative, Joint swelling negative, Neck pain negative HEMATOLOGIC: Easily bleeds negative, Easily bruises negative, Lymphedema negative, Issues with blood clots negative IMMUNOLOGIC: Food allergies negative, Seasonal allergies negative Physical examination: GENERAL APPEARANCE: The patient is alert, oriented, and conversant with normal speech. She is well-groomed and in no acute distress. She is able to participate in the examination and follow commands appropriately. LUNGS: Lungs are clear to auscultation bilaterally. No wheezes, rales, or rhonchi are appreciated. No use of accessory muscles or increased work of breathing observed. CARDIAC: Regular rate and rhythm. No murmurs, rubs, or gallops detected on auscultation. No peripheral edema noted. NEUROLOGICAL: Speech is fluent and appropriate. Mental status is intact with normal attention and comprehension. No facial droop or focal neurological deficits observed. PSYCHIATRIC: Mood and affect are appropriate to the situation. Behavior is cooperative and engaged throughout the encounter. Intake Vital Signs 01/03/25 15:35 03/14/25 15:32 Height 5 ft 6 in 5 ft 6 in Weight: 182 lb BMI 29.3 BP 97/67 Blood Pressure Location Lt brachial Position Sitting Respiration 18 Pulse 86 Pulse Source Monitor Intake Visit Reasons: EST/PALPS/HX OF AFIB/ABLATION Pre Press Manager Required: No Accompanied by: Self Is patient in pain?: No Allergies metronidazole (From Flagyl) Allergy (Verified 03/14/25 15:38) Upset Stomach Phenylpiperazine Antidepressant Adverse Reaction (Verified 03/14/25 15:38) suicidal ideation Tetracyclic Antidepressants Adverse Reaction (Verified 03/14/25 15:38) suicidal ideation Tricyclic Antidepressants and Tricy Adverse Reaction (Verified 03/14/25 15:38) suicidal ideation Medications ?Medication ?Instructions ?Recorded ?Confirmed ?Type prenat.vits,malgorzata,mav-[id number] tab PO 01/03/25 5 History Probiotic PO DAILY 01/10/25 03/14/25 H istory aspirin 81 mg tablet 162 mg PO QDAY 03/14/2503/05 History valacyclovir 500 mg tablet 500 mg PO QDAY 03/14/2503/29 History (Valtrex) Ejection fraction %: 50 Have you fallen in the past year?: No PFSH Medical History Multiple personality disorder [...] History of surgery Sterilization Hx of cholecystectomy Family History Maternal Grandfather Hypertension Social History household members: children Smoking Status: Former smoker how long ago did patient quit smokin.7 yrs alcohol intake: never substance use type: does not use caffeine: Yes what type of physical activity do you participate in: none seatbelt use: always do you feel safe at home: Yes ROS Const Const: Positive for fatigue; Negative for weakness Eyes Eyes: Negative for change in vision ENT ENT: Positive for dizziness; Negative for balance problems Cardio Chest Pain: Yes Frequency: daily Character: other (pressure/pinching) Location: left chest Duration: hours and continuous Palpitations: Yes feels like its: fast and irregular Edema: None Resp Respiratory: Positive for SOB with activity and SOB at rest; Negative for SOB orthopnea\SOB lying down Additional Details: anytime having PVCs GI GI: Negative nausea or heartburn Musc Musc: Negative for balance problems Neuro Neuro: Positive for dizziness, lightheadedness and near syncope; Negative for syncope or weakness Endo Endo: Positive for fatigue Supplemental Info Supplemental Information Diagnostics: Electrocardiogram Chest X-Ray Abdomen/Pelvis CT Past Visits: Cardiology Visit Today Assessment and Plan Assessment and Plan (1) Tachycardia: Status: Acute Comment: possible POTS, PVCs. I do not suspect atrial fibrillation as an etiology. I have not seen any documented A-fib through the Holter monitor available or in review of the records from [facility] or [facility]. Plan: The patient is a 34-year-old female with a remote history of tachycardia, PVCs, initially evaluated in 2014 at [place]. An electrophysiology study that was performed but no ablation was performed as no arrhythmia could be induced. There is diagnostic uncertainty regarding the original arrhythmia, as proceduralrecords are unavailable and the patient reports conflicting information from prior providers. She has a significant history of cerebrovascular event (stroke/TIA in 2020), which increases her thromboembolic risk if atrial fibrillation is present. Recent ambulatory monitoring (Holter, December 31?January) did not document atrial fibrillation. The monitor captured sinus rhythm with variable rates and one brief episode of atrial tachycardia with aberrancy, but no sustained or recurrent AF. Symptomatic episodes correlated with sinus rhythm, suggesting that her palpitations are not due to recurrent AF at this time. Given her history of stroke/TIA and prior suspected AF, there is a high index ofsuspicion for paroxysmal arrhythmia not captured on short-term monitoring. The diagnostic complexity is increased by her inability to tolerate external monitors and the intermittent nature of her symptoms. The risk of recurrent cerebrovascular events mandates a thorough evaluation for occult AF. Plan: Diagnostics/Labs: Consider implantable loop recorder (ILR) placement to provide long-term, continuous rhythm monitoring, as external monitors have been inadequate and symptoms are infrequent. This will help clarify the presence or absence of paroxysmal AF and guide anticoagulation decisions. I suspect predominantly patient has palpitation secondary to sinus tachycardia, rare PVCs. Patient describes some orthostatically mediated symptoms. Possibly postural tachycardia syndrome could be in the differential although prior tilt table testing did not support this diagnosis. Patient reports that she had trialed beta-blockers and calcium channel blockers limited by hypotension. I recommended the option of Florinef or midodrine but patient reports that she has also significant spikes in blood pressure. This limits her options. For now I recommended continued hydration and lower extremity support hose. Will pursue implantable loop recorder to delineate any critical arrhythmia such as nonsustained VT or atrial fibrillation. At present insignificant data to recommend anticoagulation but her prior history of TIA makes a critical to rule out A-fib as an underlying pathology. I explained to her the risks and benefits of the loop recorder implantation including potential risk for infection bleeding. Will continue to monitor her device to our device clinic. Orders: Orders 2 12 Lead EKG performed by [facility] Today R00.0 - Tachycardia, unspecified Plan Details Follow Up: 2 Months Coding Level of Care Code Off vis,new,level 5 Diagnoses Tachycardia R00.0 Coding Level of Care Code Off vis,new,level 5 Diagnoses Tachycardia R00.0 Clinical Quality Measures Falls Risk Screening/Assistive Devices Have you fallen in the past year?: No Cardiac Ejection fraction %: 50 03/14/25 1811 <Electronically signed by Reuben hendrix MD> Date _ Reuben Motley MD Cosigner Signature: Date (if applicable) CC: ~ [facility] Work Phone: 1(814) 921-332210-06-2025 NoteHNO ID: [id number] Author: KATALINA COOPER APRN.CNM Service: ? Author Type: Blanket Winder Helper Type: Progress Notes Filed: 03/10/2025 14:44 Note Text: JESSICA-S: Que Mcgarry is a 34 year old female who presents at 09/17/2025, by Last Menstrual Period for a routine visit. Denies headache, visual changes, chest pain, shortness of breath, vaginal bleeding, leakage of fluid, or dysuria.Declines neurology appointment. Tried to make appointment but was not getting an answer. No seizures in more than 3 years and declines further work up. Went to [facility] for PVC. Cardiology appt on 03/16 with [facility]. Made appointment for counseling at [facility] and declines psychiatry at this time. States she will not use medication as this made her feel worse. NT US today O: See flow sheet Gen: No apparent distress Abd: nontender ASSESSMENT/PLAN: 1. Supervision of high risk in first trimester -Continue PNV -Reviewed PN labs -NT US today -Anatomy US scheduled - [id number] PLUS - MYRI[facility] FORESIGHT CARRIER SCREEN 2. 12 weeks gestation of ( 3. History of seizures -No seizures in over 3 years, declines referral. 4. History of PSVT (paroxysmal supraventricular tachycardia) . -Cardiology appointment -MFM consult placed 5. Vaping nicotine dependence, tobacco product -Recommend cessation, reviewed risk to self and baby. 6. History of herpes simplex infection -HSV prophylaxis at 36 wk 7. History of cholestasis during 8. History of suicide attempt -Denies any suicidal thoughts, coping at this time 9. History of delivery of macrosomal infant 10. History of vacuum extraction assisted delivery 11. History of pre-eclampsia -Baseline labs normal -ASA 162mg PO once daily 12. History of depression 13. History of anxiety -Declines medication -Continue counseling services 14. History of loop electrosurgical excision procedure (LEEP) of cervix affecting , antepartum (HCC) PTL precautions reviewed and when to call RTO in 4 weeks DANNY Garcia APR[facility]-18-[facility] Progress note* Quick Notes - Katalina Cooper APRN.CNM - 02/18/2025 10:29 AM EDT [facility], see progress note. MFM consult placed. NIPT and PN labs next visit. [facility]09-16-2025 Miscellaneous Notes* Quick Notes - Katalina Cooper APRN.CNM - 02/18/2025 10:29 AM EDT [facility], see progress note. MFM consult placed. NIPT and PN labs next visit. [facility] Telephone encounter Note * Telephone Encounter - Tessie Che MD - 02/17/2025 4:43 PM EDT Noted thanks agree [facility] Work Phone: [phone]) 245-816609-15-2025 Miscellaneous Notes* Telephone Encounter - Tessie Che MD - 02/17/2025 4:43 PM EDT Noted thanks agree * Telephone Encounter - Nicholas Arreaga RN - 02/17/2025 4:10 PM EDT 9w5d Called in asking what she can take for constipation. Has not had BM in 6 days. Reviewed Miralax useand to continue daily stool softener once able to have bowel movement. 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 Advised patient will send mychart message to her to refer to too. Mychart message sent with link to book and safe medications and other recommendations to help constipation as well. Patient to call ifno improvement with recommendations. Only need to malgorzata her with further advice. Nicholas Arreaga RN documented in [facility] encounterMer[facility]09-[facility]-2025 Telephone encounter Note * Telephone Encounter - Nicholas Arreaga RN - 02/17/2025 4:10 PM EDT 9w5d Called in asking what she can take for constipation. Has not had BM in 6 days. Reviewed Miralax useand to continue daily stool softener once able to have bowel movement. 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 Advised patient will send mychart message to her to refer to too. Mychart message sent with link to book and safe medications and other recommendations to help constipation as well. Patient to call ifno improvement with recommendations. Only need to malgorzata her with further advice. Nicholas Arreaga RN [facility]09-09-2025 Telephone encounter Note* Telephone Encounter - Gene Rogers APRN.CNP - 02/11/2025 1:00 PM EDT Reviewed referral. Please reach out to offer this patient a new consult visit in the amslot. [facility] Work Phone: [phone]) 209-790209-09-2025 Miscellaneous Notes* Telephone Encounter - Gene Rogers APRN.CNP - 02/11/2025 1:00 PM EDT Reviewed referral. Please reach out to offer this patient a new consult visit in the amslot. * Telephone Encounter - Roselyn Robert LPN - 02/11/2025 8:28 AM EDT Nreferral from for anxiety/depression/bipolar Please review Roselyn Robert LPN documented in this encounterMer[facility]09-[facility]-2025 Telephone encounter Note * Telephone Encounter - Marlys Gutierrez RN - 02/11/2025 8:44 AM EDT 1st risk assessment form submitted 02/11/25 Marlys Gutierrez RN [facility]09-09-2025 Miscellaneous Notes* Telephone Encounter - Marlys Gutierrez RN - 02/11/2025 8:44 AM EDT 1st risk assessment form submitted 02/11/25 Marlys Gutierrez RN documented in this encounterMer[facility]09-[facility]-2025 Telephone encounter Note * Telephone Encounter - Roeslyn Robert LPN - 02/11/2025 8:28 AM EDT Nreferral from for anxiety/depression/bipolar Please review Roselyn Robert LPN [facility]09-08-2025 Instructions* Patient Instructions* Katalina Cooper APRN.CNM - 02/10/2025 2:05 PM EDT Please select the following link to access the [facility] Your Guide to a Healthy . [email or web address] Check BP twice daily and send log weekly. documented in this encounterMercy [facility]09-08-2025 NoteHNO ID: [id number] Author: KATALINA COOPER APRN.CNM Service: ? Author Type: Blanket Winder Helper Type: Progress Notes Filed: 02/18/2025 17:03 Note Text: Restaurant Greeter offered: Patient declines. INITIAL OB ASSESSMENT HPI: Que is a 34 year old White Female here to establish Obstetrical Care. Patient's last menstrual period was 12/11/2024 (exact date). from OB Dating Form. was planned Patient reported Emergency Room visit 02/05/2025 Edwin x2 for abdominal pain for GI issues Complaints: (!) Abdominal pain; Irritating vaginal discharge; Vaginal bleeding Nausea everyday and with eating. OB History Gravida7 Para6 Term6 Preterm0 AB0 Living6 SAB0 IAB0 Ectopic0 Multiple0 Live Births6 Previous history: Prior : No History of 4th degree laceration: No History of shoulder dystocia: No History of Hypertensive disorders including pre-eclampsia or gestational hypertension: Yes 2022 Emergency Room visit after delivery History of gestational diabetes: No Patient's Risk Screening for delivery: Have you had a prior reid between 20w and 36w6d? No How many pregnancies have you had before? 7 Did you have a previous baby with a GBS Infection? No Please select all that apply for any prior : N/A MEDICAL/PSYCHOSOCIAL HISTORY: History of hemorrhage or bleeding concerns: Yes Thyroid Disease: No History of chronic hypertension: No History of pre-existing diabetes: No ABO/RH(D) Date Value Ref Range Status 03/05/2021 A NEGATIVE Final BMI 28.57 kg/(m2) Last Pap: 01/07/2021 negative Pt reported 2024 abnormal. History of abnormal pap: Yes 2015 HGSIL, +HPV Prior treatment for cervical dysplasia: LEEP Last HPV: 01/12/2021 History of STDs: Chlamydia Partner History of STDs: None and HSV Did you have a partner with Herpes? no Tobacco use: No E-Cigarette/Vaping Use: Yes Caffeine use: Yes Drug use: No Alcohol use: No Multivitamin with Folic acid: Yes Would refuse blood transfusion if medically necessary: No Social Needs: How often does this describe you? I don't have enough money to pay my bills: Never Within the past 12 months, have you worried that your food would run out before you had money to buy more? Never In the past 12 months, has lack of reliable transportation kept you from going to medical appointments or work, or from getting things needed for daily living? Never In the past 12 months, have you had any concerns about having a place to live, or about the condition or quality of your housing? Never Would you like more information on any of the following (please check all that apply)? Blanket Winder Helper care Social History: Do you have any history of depression, anxiety, PTSD, or other mood problems? Yes Do you have a history of abuse or trauma that may impact your experience? No Are you currently employed? No Depression/Anxiety Screening: denies symptoms of depression. OB Depression and Anxiety Screening- This Encounter Feeling down, depressed, or hopeless: Not at all Little interest or pleasure in doing things: Not at all Feeling nervous, anxious, or on edge Nearly Everyday Not being able to stop or control worrying More than half the days Anxiety Pre-Screening Total (If >/= 3 additional questions will be reviewed) 5 Worrying too much about different things Nearly Everyday Trouble relaxing Nearly Everyday Being so restless that it is hard to sit still Several days Becoming easily annoyed or irritable More than half the days Feeling afraid, as if something awful might happen Nearly Everyday How difficult to do work, care for home, get along with people Not difficult at all TINY-7 Score 17 Genetic Screening: Partner present: No Patient verbalized knowledge of partner family health history: Yes Do you or your partner have any personal or family history of defects not previously discussed: No Do you have history of a complicated by anomaly, genetic condition, or demise: No Preeclampsia Risk Screening: Screening for prevention of preeclampsia: High risk factors: None Moderate risk ractors: Sociodemographic characteristics ( race, low socioeconomic status) OB Risk Screening: Completed, no positive findings documented. Marital Status: Partner: Name: Connor Age: 36 Occupation: Used [employer] - [employer] Gender: Male PAST MEDICAL HISTORY Diagnosis Date Anemia Anxiety Arrhythmia Bipolar affect, depressed (HCC) Chlamydia 05/2009 DJD (degenerative joint disease) GERD (gastroesophageal reflux disease) 09/18/2015 Herpes simplex virus (HSV) infection HGSIL (high grade squamous intraepithelial lesion) on Pap smear of cervix 2015 History of Helicobacter pylori infection 09/18/2015 IBS (irritable bowel syndrome) 2018 Interstitial cystitis 2018 MVP (mitral valve prolapse) O (more content not included)...[facility]09-08-2025 History of Present illness Narrative* Katalina Cooper APRN.CNM - 02/10/2025 2:02 PM EDT Restaurant Greeter offered: Patient declines. INITIAL OB ASSESSMENT HPI: Que is a 34 year old White Female here to establish Obstetrical Care. Patient's last menstrual period was 12/11/2024 (exact date). from OB Dating Form. was planned Patient reported Emergency Room visit 02/05/2025 Edwin x2 for abdominal pain for GI issues Complaints: (!) Abdominal pain; Irritating vaginal discharge; Vaginal bleeding Nausea everyday and with eating. OB History Gravida7 Para6 Term6 Preterm0 AB0 Living6 SAB0 IAB0 Ectopic0 Multiple0 Live Births6 Previous history: Prior : No History of 4th degree laceration: No History of shoulder dystocia: No History of Hypertensive disorders including pre-eclampsia or gestational hypertension: Yes 2022 Emergency Room visit after delivery History of gestational diabetes: No Patient's Risk Screening for delivery: Have you had a prior reid between 20w and 36w6d? No How many pregnancies have you had before? 7 Did you have a previous baby with a GBS Infection? No Please select all that apply for any prior : N/A MEDICAL/PSYCHOSOCIAL HISTORY: History of hemorrhage or bleeding concerns: Yes Thyroid Disease: No History of chronic hypertension: No History of pre-existing diabetes: No ABO/RH(D) Date Value Ref Range Status 03/05/2021 A NEGATIVE Final BMI 28.57 kg/(m^2) Last Pap: 01/07/2021 negative Pt reported 2024 abnormal. History of abnormal pap: Yes 2015 HGSIL, +HPV Prior treatment for cervical dysplasia: LEEP Last HPV: 01/12/2021 History of STDs: Chlamydia Partner History of STDs: None and HSV Did you have a partner with Herpes? no Tobacco use: No E-Cigarette/Vaping Use: Yes Caffeine use: Yes Drug use: No Alcohol use: No Multivitamin with Folic acid: Yes Would refuse blood transfusion if medically necessary: No Social Needs: How often does this describe you? I don't have enough money to pay my bills: Never Within the past 12 months, have you worried that your food would run out before you had money to buy more? Never In the past 12 months, has lack of reliable transportation kept you from going to medical appointments or work, or from getting things needed for daily living? Never In the past 12 months, have you had any concerns about having a place to live, or about the condition or quality of your housing? Never Would you like more information on any of the following (please check all that apply)? Blanket Winder Helper care Social History: Do you have any history of depression, anxiety, PTSD, or other mood problems? Yes Do you have a history of abuse or trauma that may impact your experience? No Are you currently employed? No Depression/Anxiety Screening: denies symptoms of depression. OB Depression and Anxiety Screening- This Encounter Feeling down, depressed, or hopeless: Not at all Little interest or pleasure in doing things: Not at all Feeling nervous, anxious, or on edge Nearly Everyday Not being able to stop or control worrying More than half the days Anxiety Pre-Screening Total (If >/= 3 additional questions will be reviewed) 5 Worrying too much about different things Nearly Everyday Trouble relaxing Nearly Everyday Being so restless that it is hard to sit still Several days Becoming easily annoyed or irritable More than half the days Feeling afraid, as if something awful might happen Nearly Everyday How difficult to do work, care for home, get along with people Not difficult at all TINY-7 Score 17 Genetic Screening: Partner present: No Patient verbalized knowledge of partner family health history: Yes Do you or your partner have any personal or family history of defects not previously discussed: No Do you have history of a complicated by anomaly, genetic condition, or demise: No Preeclampsia Risk Screening: Screening for prevention of preeclampsia: High risk factors: None Moderate risk ractors: Sociodemographic characteristics ( race, low socioeconomic status) OB Risk Screening: Completed, no positive findings documented. 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 Brasher SVT ABLATION 05/2015 procedure was incomplete and did not work per patient- records requested UNL LAP TUBAL ANASTOMOSIS Bilateral 08/29/2024 Current Outpatient Medications Medication Sig Dispense Refill vit,malgorzata 74/iron/folic ( VITAMIN 1+1 ORAL) Take by mouth once daily. No current facility-administered medications for this visit. Allergies As of Date: 02/10/2025 Allergen Noted Reaction COUGH SYRUP [GUAIFENESIN] 10/30/2018 Other: See Comments FLAGYL [METRONIDAZOLE HCL] 09/26/2018 GI Upset ANTIDEPRESSANTS [TRICYCLIC ANTIDE*08/16/2011 Other: See Comments DOG DANDER 10/25/2018 Other: See Comments LACTOSE 08/20/2018 GI Upset Fully Assessed 02/10/2025 Does patient have penicillin allergy: No REVIEW OF SYSTEMS: GENERAL: Negative for: Fever or Chills HEENT: Negative for: Headache, Impaired Vision, Ringing in Ears, Nosebleeds NECK: Negative for: Swelling, Pain, Stiffness RESPIRATORY: Negative for: Cough, Shortness of breath, Wheezing GASTROINTESTINAL: Negative for: Heartburn, Constipation, Diarrhea, Blood in stool, Vomiting MUSCULOSKELETAL: Negative for: Muscle or joint pain, stiffness, Joint swelling NEUROLOGIC/PSYCHIATRIC: Negative for: Weakness, Paralysis, Numbness, Tingling, Tremor, Anxiety, Depression, Memory loss SKIN: Negative for: Rash, Itching GENITOURINARY: Negative for: vaginal itching, vaginal discharge, hematuria or dysuria SENSITIVE EXAM: The sensitive examination was discussed with the Patient or Patient's Authorized Wastewater Plant Operator. As applicable, any other physician, advance practice provider, medical student, or other health professional student that will be observing or involved in the sensitive examination for educational or training purposes was discussed with the Patient or Authorized Wastewater Plant Operator. The Patient or Authorized Wastewater Plant Operator has agreed to proceed with the sensitive examination. (Sensitive examination includes inspection and/or palpation of the breasts, pelvis, prostate and anorectal regions). PHYSICAL EXAM: BP 114/60 Ht 5' 6 (1.68m) Wt 177 lb (80.3kg) LMP 12/11/2024 BMI 28.58 kg/(m^2). GENERAL: pleasant in no apparent distress DERMATOLOGY: Normal, without lesions, non-icteric, and non-hirsute NECK: Supple, full range of motion, no adenopathy, and thyroid normal CHEST: Normal inspiratory effort BREAST: soft, non-tender, symmetric, no dominant mass, normal nipple-areolar complex, no lymphadenopathy, and no nipple discharge ABDOMEN: soft, non-tender, and no masses NEURO: alert and oriented x3,exam grossly non-focal PELVIS: External genitalia normal without lesions. Perineal body intact. No vaginal or cervical lesions. Cervix closed. Uterus 8 week size. No adnexal masses or tenderness. Clinical Pelvimetry: Pelvimetry clinically assessed as adequate Limited OB ultrasound exam: single intrauterine , positive cardiac activity, crown-rump length 9w1d, and normal bilateral adnexa Dating LMP on: 12/11/2024 GA by LMP 8 w + 5 d JOY by LMP: 09/17/2025 Ultrasound examination on: 02/10/2025 GA by U/S based upon: CRL GA by U/S 9 w + 1 d JOY by U/S: 09/14/2025 Assigned: based on the LMP, selected on 01/30/2025 Assigned GA 8 w + 5 d Assigned JOY: 09/17/2025 ASSESSMENT: 34 year old at 8w5d wks gestational age PLAN: 1) Patient oriented to practice. Patient given new OB orientation folder. Discussed nutrition, folic acid supplementation, dietary guidelines, exercise, smoking, alcohol, caffeine, and drug use. Discussed gestational weight gain guidelines. Discussed routine OB labs including STD/HIV. 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 Discussed hemoglobin electrophoresis. Patient: Accepts Reviewed Oration-Benchling program. Patient declines referral at this time. 2) Screening: Hemoglobin A1C: ordered Baby Aspirin: The patient has been counseled about the potential benefits of low dose aspirin in and our recommendation that this be offered to all patients, regardless of whether they meet the high risk criteria specified above. She Accepts Aneuploidy Screening: Discussed aneuploidy screening, nuchal translucency/first trimester early anatomy ultrasound and NIPT. The risks/benefits and limitations of NIPT/aneuploidy screening were reviewed including the potential for false negative and false positive results. The availability of genetic counseling was reviewed. Information on aneuploidy screening was provided. The patient chooses toproceed with First trimester early anatomy ultrasound (12-13w6d), NIPT (10 weeks), and If concerns with insurance coverage, patient to call back for sequential order. Myriad Carrier Screening: Discussed myriad carrier screening. We discussed the availability of professional-society guided carrier screening and reviewed the conditions screened and limitations of screening. The availability of genetic counseling was reviewed. Information on carrier screening was provided. The patient will check insurance 3) Patient offered option of Virtual Visits. Patient prefers in person visits. 4) History of MVP, SVT, A fib, and seizures. Will consult M if ok to see or Cardio OB consultation. No medications currently 5) Referral to psychiatry due to history of anxiety, depression, possible bipolar or borderline personality disorder (seen in chart previously). 6) States history of seizures. History of seizures that she has experienced most of her life. Has never seen neurologist. States they think it is stress related. Was on medication in the past but nothing currently. Thinks last time she had one was 3 years ago. Took depakote, Keppra, and gabapentin in the past Follow up in 4 weeks or sooner prn. Katalina Cooper APRN.CNM [facility] Tele[facility] encounter Note * Telephone Encounter - Joanne Jamison RN - 02/06/2025 11:25 AM EDT ER records from 02/05 received and scanned into patients chart. Joanne Jamison RN [facility] Miscellaneous Notes* Telephone Encounter - Joanne Jamison RN - 02/06/2025 11:25 AM EDT ER records from 02/05 received and scanned into patients chart. Joanne Jamison RN * Telephone Encounter - Yolanda Leary RN - 02/06/2025 9:58 AM EDT Pt notified and voiced understanding. Yolanda Leary RN * Telephone Encounter - Kerri Argueta APRN.CNP - 02/06/2025 8:55 AM EDT Recommend pelvic rest at this time. May experience 1st trimester bleeding. Review bleeding precautions. Often these will resolve on their own. Kerri Argueta APRN.CNP * Telephone Encounter - Joanne Jamison RN - 02/06/2025 8:43 AM EDT Patient calling this morning stating she went to [facility] ER yesterday for the abdominal pain and diarrhea. Patient states she was told that she had a GI bug, but they also did ultrasound while there. Patient is concerned that she now has 2 subchorionic hematomas. Last imaging done on 01/30 showed one and patient states it has it has also grown in size. Patient denies any active bleeding or pain at this time. She has New OB scheduled for Monday, 02/10. Records request faxed to [facility]. Joanne Jamison RN * Telephone Encounter - Adriano Hines MD - 02/05/2025 1:29 PM EDT Noted. IUP was present on ultrasound- no concerns for ectopic. Continue to hydrate. Can be normal to have some pain in early . If fevers or severe pain then she needs to go to ER. * Telephone Encounter - Richelle Lange LPN - 02/05/2025 9:36 AM EDT Ob patient is 8 weeks and called c/o intermittent abdominal pain that varies in intensity and nausea X 2 weeks and reports that abdominal pain last night woke her up from sleeping and then had an episode of diarrhea. Patient states solid food tastes different and is mostly eating bread and reports a 5 lb weight loss since abdominal pain started. Pt. Stated that she is able to keep fluids down and no c/o decreased urination or dark colored urine.Denies fever, no vomiting. Patient denies vaginal bleeding and no menstrual like cramping. Patient was seen at [facility] ED for abdominal pian 01/14/25. Had pelvic ultrasound 01/30/2025 New ob appointment is 02/10/25. [facility] Telephone encounter Note * Telephone Encounter - Yolanda Leary RN - 02/06/2025 9:58 AM EDT Pt notified and voiced understanding. Yolanda Leary RN [facility]09-04-[facility] Telephone encounter Note* Telephone Encounter - Kerri Argueta APRN.CNP - 02/06/2025 8:55 AM EDT Recommend pelvic rest at this time. May experience 1st trimester bleeding. Review bleeding precautions. Often these will resolve on their own. Kerri Argueta APRN.BONITA T [facility] Work Phone: [phone] Telephone encounter Note* Telephone Encounter - Joanne Jamison RN - 02/06/2025 8:43 AM EDT Patient calling this morning stating she went to [facility] ER yesterday for the abdominal pain and diarrhea. Patient states she was told that she had a GI bug, but they also did ultrasound while there. Patient is concerned that she now has 2 subchorionic hematomas. Last imaging done on 01/30 showed one and patient states it has it has also grown in size. Patient denies any active bleeding or pain at this time. She has New OB scheduled for Monday, 02/10. Records request faxed to [facility]. Joanne Jamison RN T [facility]09-03-[facility]25 Hospital Discharge instructions Patient Education 02/05/2025 17:49:14 Abdominal Pain, Early Abdominal Pain and Early The tests you had show that you are , but the exact cause of your pain isn t clear. Some pain and bleeding are common early in . Often they stop, and you can go on to have a normal and baby. Other times the pain or bleeding can be signs of a miscarriage or ectopicpregnancy. An ectopic is a very serious problem. At this time it is unclear if your will continue normally, if you will have a miscarriage, or if you could have an ectopic . Below is some information about this. Miscarriage At this time we don t know whether you will have a miscarriage, or if things will clear up and yourpregnancy will continue normally. We understand that this is emotionally difficult. There is littlewe can say to change the way you feel. But understand that miscarriages are common. About 1 or 2 out of every [address] Some end even before you know you are . This happens for a number of reasons, and usually we never figure out why. It s important you know that it is not your fault. It didn t happen because you did anything wrong. Having sex or exercising does not cause a miscarriage. These activities are usually safe unless youhave pain or bleeding or your doctor tells you to stop. Even minor falls won t cause a miscarriage.Miscarriages happen because things were not developing as they were supposed to. No medicine can prevent a miscarriage. Ectopic In a normal , the fertilized egg attaches to the wall of the womb (uterus). In an ectopic or tubal , the fertilized egg attaches outside the uterus, usually in the fallopian tube. Very rarely, the egg attaches to an ovary or somewhere else in the abdomen. An ectopic is much less common than a miscarriage, but it is very serious. The baby cannot survive, and as it growsit can rupture the tube. This can cause internal bleeding and even . Risk factors for an ectopic are: An ectopic in the past Pelvic inflammatory disease, or PID Endometriosis Smoking An IUD Additional tests Because we don t know what s causing your symptoms, you will need more tests to figure out what theproblem is. You may need the following. Ultrasound An ultrasound can usually find a normal as early as 4 to 5 weeks along. If the ultrasounddoes not show the baby inside the uterus, it means one of the following. You have a normal less than 4 weeks along You are having or recently had a miscarriage You have an ectopic Quantitative HCG This test measures the amount of a hormone in your blood. Comparing today's test result to a repeat test in 2 days will show whether you have a normal . Laparoscopy This is a type of surgery. The healthcare provider will put a tube with a light inside your belly (abdomen) to look directly at your pelvic organs. This test is used when it is not safe to wait 2 days for blood test results. Important information If you do have an ectopic , there is a small chance that the growing fetus can tear the fallopian tube. This can cause severe internal bleeding. If this happens, you may have: Sudden severe pain in your lower abdomen Vaginal bleeding Weakness, dizziness, and sometimes fainting If any of these symptoms occur: Call 911or return right away to the hospital. Don't drive yourself. Don't go to your healthcare provider's office or to a clinic. Go to the hospital. Home care Follow these guidelines to help care for yourself at home: Rest until your next exam. Don t do anything strenuous. Eat a light diet with foods that are easy to digest. Don t have sex until your healthcare provider says it s OK. Follow-up care Follow up with your healthcare provider, or as advised. If you were told to have a repeat blood test in 2 days, it s important to get it done. If you had an X-ray or ultrasound, a radiologist will review it. You will be told of any new findings that may affect your care. Call 911 Call 911 if you have any of these: Severe pain and very heavy bleeding Severe lightheadedness, passing out, or fainting Rapid heart rate Trouble breathing Confused or difficulty waking up When to seek medical advice Call your healthcare provider right away if any of these occur: The pain in your abdomen gets worse, either suddenly or gradually. You are dizzy or weak when you stand. You have heavy vaginal bleeding. This means soaking 1 pad an hour for 3 hours. You have vaginal bleeding for more than 5 days. You have repeated vomiting or diarrhea. The pain in your abdomen moves to the lower right. You have blood in your vomit or bowel movements. This will be dark red or black. You have a fever of 100.4 F (38 C) or higher, or as directed by your healthcare provider. 8033-8842 [employer]. [address] [place] [address]. All rights reserved. This information is not intended as a substitute for professional medical care. Always follow yourhealthcare professional's instructions. Follow Up Care 02/05/2025 13:08:15 With:DAVIDE CHAO MD Address: [address] [place] [id number]- When:2-4 days [facility] 09-03-2025 Emergency department Discharge summary Discharge Instructions Thank you for allowing [facility] to assist you with your healthcare needs. The following is importantdischarge information regarding your hospital visit. Diagnosis from Today's Visit Abdominal pain Nausea What to Do Next Instructions from Your Care Team Please follow-up with your PCP/INFANT AND TODDLER TEACHER. No qualifying data available. Post Acute Orders No qualifying data available. You Need to Schedule the Following Appointments Follow Up with DAVIDE CHAO MD When:Within 2-4 days Where:[address] [place] [address]- Allergies No Known Medication Allergies Medications Please [...] medication providers or retail pharmacies. Education Materials Abdominal Pain and Early The tests you had show that you are , but the exact cause of your pain isn t clear. Some pain and bleeding are common early in . Often they stop, and you can go on to have a normal and baby. Other times the pain or bleeding can be signs of a miscarriage or ectopicpregnancy. An ectopic is a very serious problem. At this time it is unclear if your will continue normally, if you will have a miscarriage, or if you could have an ectopic . Below is some information about this. Miscarriage At this time we don t know whether you will have a miscarriage, or if things will clear up and yourpregnancy will continue normally. We understand that this is emotionally difficult. There is littlewe can say to change the way you feel. But understand that miscarriages are common. About 1 or 2 out of every [address] Some end even before you know you are . This happens for a number of reasons, and usually we never figure out why. It s important you know that it is not your fault. It didn t happen because you did anything wrong. Having sex or exercising does not cause a miscarriage. These activities are usually safe unless youhave pain or bleeding or your doctor tells you to stop. Even minor falls won t cause a miscarriage.Miscarriages happen because things were not developing as they were supposed to. No medicine can prevent a miscarriage. Ectopic In a normal , the fertilized egg attaches to the wall of the womb (uterus). In an ectopic or tubal , the fertilized egg attaches outside the uterus, usually in the fallopian tube. Very rarely, the egg attaches to an ovary or somewhere else in the abdomen. An ectopic is much less common than a miscarriage, but it is very serious. The baby cannot survive, and as it growsit can rupture the tube. This can cause internal bleeding and even . Risk factors for an ectopic are: An ectopic in the past Pelvic inflammatory disease, or PID Endometriosis Smoking An IUD Additional tests Because we don t know what s causing your symptoms, you will need more tests to figure out what theproblem is. You may need the following. Ultrasound An ultrasound can usually find a normal as early as 4 to 5 weeks along. If the ultrasounddoes not show the baby inside the uterus, it means one of the following. You have a normal less than 4 weeks along You are having or recently had a miscarriage You have an ectopic Quantitative HCG This test measures the amount of a hormone in your blood. Comparing today's test result to a repeat test in 2 days will show whether you have a normal . Laparoscopy This is a type of surgery. The healthcare provider will put a tube with a light inside your belly (abdomen) to look directly at your pelvic organs. This test is used when it is not safe to wait 2 days for blood test results. Important information If you do have an ectopic , there is a small chance that the growing fetus can tear the fallopian tube. This can cause severe internal bleeding. If this happens, you may have: Sudden severe pain in your lower abdomen Vaginal bleeding Weakness, dizziness, and sometimes fainting If any of these symptoms occur: Call 911or return right away to the hospital. Don't drive yourself. Don't go to your healthcare provider's office or to a clinic. Go to the hospital. Home care Follow these guidelines to help care for yourself at home: Rest until your next exam. Don t do anything strenuous. Eat a light diet with foods that are easy to digest. Don t have sex until your healthcare provider says it s OK. Follow-up care Follow up with your healthcare provider, or as advised. If you were told to have a repeat blood test in 2 days, it s important to get it done. If you had an X-ray or ultrasound, a radiologist will review it. You will be told of any new findings that may affect your care. Call 911 Call 911 if you have any of these: Severe pain and very heavy bleeding Severe lightheadedness, passing out, or fainting Rapid heart rate Trouble breathing Confused or difficulty waking up When to seek medical advice Call your healthcare provider right away if any of these occur: The pain in your abdomen gets worse, either suddenly or gradually. You are dizzy or weak when you stand. You have heavy vaginal bleeding. This means soaking 1 pad an hour for 3 hours. You have vaginal bleeding for more than 5 days. You have repeated vomiting or diarrhea. The pain in your abdomen moves to the lower right. You have blood in your vomit or bowel movements. This will be dark red or black. You have a fever of 100.4 F (38 C) or higher, or as directed by your healthcare provider. [id number] [employer]. [address] [place] [address], [place] [address]. All rights reserved. This information is not intended as a substitute for professional medical care. Always follow yourhealthcare professional's instructions. Additional Information VACCINATE! IT SAVES LIVES! Members of the community who have not yet received the COVID-19 vaccine and would like to receive it can visit one of [facility] vaccine clinics. There are many vaccine clinic locations within the [facility]. For locations and available times, please visit [email or web address]/. It is important to note that some COVID mobile vaccine clinics are held outdoors and may be canceled in rainy or stormy conditions. To learn more about pediatric vaccinations (ages 5-11), we invite you to visit the [facility] webpage. https://[email or web address]/[email or web address]-Kfzzvqsldxd-Wgslzmntqs-Mpvlm-[email or web address] [email or web address].htmlTo learn more about the COVID-19 vaccine, we invite you to visit the CDC website for a list of frequently asked questions. https://www.cdc.gov/coronavirus/2019-ncov/vaccines/faq.html [facility] Patient Portal Access Instructions: Stay connected with your healthcare team and access your personal medical information anytime with the [facility] Patient Portal. If you would like a full copy of your medical records please contact the [facility] Medical Records Department Monday through Monday between 8a.m. and 4:30p.m. Please follow the directions below to access the portal: 1.Access the email account you provided upon registration to the hospital.2.Look for an invitation email from [facility].3.Open the email and access the invitation link: Accept Invitation to [facility]4.Fill in the required coughlin to create your account. Sign into www.[email or web address] Interactive with your username and password that you [...] you will allow to register on the [facility] Patient Portal for access to your information. You can also access the [facility] Patient Portal on the [employer] shell. Simply click on Health Records under [employer] and then click on the MyEveTab logo. HOW TO SAFELY DISPOSE OF PRESCRIPTION [...] Call your local pharmacy or go to [email or web address] to find one close to you.3.Make use of household items: Use cat litter or old coffee grounds to dispose medications if other options arenot available. Mix your drugs with these household products, seal them in an airtight container andthrow it into the garbage. Call [facility]: [phone] to be sure your drugs can be [...] a CHART COPY Signatures Patient Education Materials Abdominal Pain, Early Medication Leaflets My discharge plan and instructions have been reviewed and explained to me and I,MARIANELAJAKEQUE Donnell understand my current condition and have read and understand these discharge instructions. I have received a written copy of the plan/instructions. If I have questions, I am aware that I should contact my doctor. 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 IUP was present on ultrasound- no concerns for ectopic. Continue to hydrate. Can be normal to have some pain in early . If fevers or severe pain then she needs to go to ER. [facility]09-03-2025 Telephone encounter Note* Telephone Encounter - Richelle Lange LPN - 02/05/2025 9:36 AM EDT Ob patient is 8 weeks and called c/o intermittent abdominal pain that varies in intensity and nausea X 2 weeks and reports that abdominal pain last night woke her up from sleeping and then had an episode of diarrhea. Patient states solid food tastes different and is mostly eating bread and reports a 5 lb weight loss since abdominal pain started. Pt. Stated that she is able to keep fluids down and no c/o decreased urination or dark colored urine.Denies fever, no vomiting. Patient denies vaginal bleeding and no menstrual like cramping. Patient was seen at [facility] ED for abdominal pian 01/14/25. Had pelvic ultrasound 01/30/2025 New ob appointment is 02/10/25. [facility]08-28-2025 NoteHNO ID: [id number] Author: LATONIA GRAY MD Service: ? Author Type: Physician Type: Progress Notes Filed: 01/30/2025 16:14 Note Text: The patient presents for requested ultrasound. Full report available in the Imaging tab in [facility]. Latonia Gray [facility]08-28-2025 History of Present illness Narrative* Latonia Gray MD - 01/30/2025 4:13 PM EDT The patient presents for requested ultrasound. Full report available in the Imaging tab in [facility]. Latonia Gray MD documented [facility] Telephone encounter Note * Telephone Encounter - Torsten Kate LPN - 01/29/2025 11:43 AM EDT Phone call placed brief message to complete OB intake questions. Torsten Kate LPN [facility]08-27-2025 Miscellaneous Notes* Telephone Encounter - Torsten Kate LPN - 01/29/2025 11:43 AM EDT Phone call placed brief message to complete OB intake questions. Torsten Kate LPN documented in [facility]Mer[facility]25 Telephone encounter Note * Telephone Encounter - Nicholas Arreaga RN - 01/27/2025 4:40 PM EDT Records received from [facility]. Given to ELVIA Robb for 02/10 NOB appt with RM. Nicholas Arreaga RN [facility]08-25-2025 Miscellaneous Notes* Telephone Encounter - Nicholas Arreaga RN - 01/27/2025 4:40 PM EDT Records received from [facility]. Given to ELVIA Robb for 02/10 NOB appt with RM. Nicholas Arreaga RN documented in [facility] encounterMer[facility]-13-2025 Note* Addendum Note - Pam Robertson MD - 01/15/2025 11:45 AM EDTAddended by: PAM ROBERTSON on: 01/15/2025 11:45 AM Modules accepted: Orders [facility]08-13-2025 Miscellaneous Notes* Addendum Note - Pam Robertson MD - 01/15/2025 11:45 AM EDTAddended by: PAM ROBERTSON on: 01/15/2025 11:45 AM Modules accepted: Orders * Addendum Note - Natalie Gusman MA - 01/15/2025 11:44 AM EDTAddended by: NATALIE GUSMAN on: 01/15/2025 11:44 AM Modules accepted: Orders documented in this encounterMer[facility]-13-2025 Note* Addendum Note - Natalie Gusman MA - 01/15/2025 11:44 AM EDTAddended by: NATALIE GUSMAN on: 01/15/2025 11:44 AM Modules accepted: Orders [facility]08-13-2025 NoteHNO ID: [id number] Author: PAM ROBERTSON MD Service: ? Author Type: Physician Type: Progress Notes Filed: 01/15/2025 11:39 Note Text: Que Mcgarry is a 34 year old female who presents for problem visit Emergency Room follow [facility] , pelvic pain, positive quants. HPI: Early post tubal reanastomosis and with appropriate rise in BHCG. LLQ pain with documented L Ovarian cyst. Apparent evidence for early subchorionic bleed. 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 Brasher SALPINGOGRAM 12/20/2024 Dr. Brasher SVT ABLATION 05/2015 procedure was incomplete and did not work per patient- records requested UNL LAP TUBAL ANASTOMOSIS Bilateral 08/29/2024 FAMILY HISTORY Problem Relation Age of Onset [...] Uncle Alcohol/Drug Maternal Uncle Alcohol/Drug Maternal Uncle SOCIAL HISTORY[1] Current Outpatient Medications Medication Sig gabapentin (NEURONTIN) [...] for this visit. Allergies As of Date: 01/15/2025 Allergen Noted Reaction COUGH SYRUP [GUAIFENESIN] 10/30/2018 Other: See Comments FLAGYL [METRONIDAZOLE HCL] 09/26/2018 GI Upset ANTIDEPRESSANTS [TRICYCLIC ANTIDE*08/16/2011 Other: See Comments DOG DANDER 10/25/2018 Other: See Comments LACTOSE 08/20/2018 GI Upset Fully Assessed 09/05/2024 After reviewing chart and ER records advise repeat ultrasound in 10-14 days and schedule new ob visit ASSESSMENT AND PLAN: Assessment AND Plan son in 2 weeks. ftft > 30m consultation with RR Pam Robertson MD [1] Social History Tobacco Use Smoking status: Former Current packs/day: 0.00 Average packs/day: 1 pack/day for 17.0 years (17.0 ttl pk-yrs) Types: Cigarettes Start date: 01/23/2004 Quit date: 01/22/2021 Years since quittin.9 Smokeless tobacco: Never Vaping Use Vaping status: current everyday user Substance Use Topics Alcohol use: No Drug use: [facility]08-13-2025 History of Present illness Narrative* Pam Robertson MD - 01/15/2025 11:02 AM EDT Que Mcgarry is a 34 year old female who presents for problem visit Emergency Room follow [facility] , pelvic pain, positive quants. HPI: Early post tubal reanastomosis and with appropriate rise in BHCG. LLQ pain with documented L Ovarian cyst. Apparent evidence for early subchorionic bleed. 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 Brasher SALPINGOGRAM 12/20/2024 Dr. Brasher SVT ABLATION 05/2015 procedure was incomplete and did not work per patient- records requested UNL LAP TUBAL ANASTOMOSIS Bilateral 08/29/2024 FAMILY HISTORY Problem Relation Age of Onset [...] Uncle Alcohol/Drug Maternal Uncle Alcohol/Drug Maternal Uncle SOCIAL HISTORY[1] Current Outpatient Medications Medication Sig gabapentin (NEURONTIN) [...] for this visit. Allergies As of Date: 01/15/2025 Allergen Noted Reaction COUGH SYRUP [GUAIFENESIN] 10/30/2018 Other: See Comments FLAGYL [METRONIDAZOLE HCL] 09/26/2018 GI Upset ANTIDEPRESSANTS [TRICYCLIC ANTIDE*08/16/2011 Other: See Comments DOG DANDER 10/25/2018 Other: See Comments LACTOSE 08/20/2018 GI Upset Fully Assessed 09/05/2024 After reviewing chart and ER records advise repeat ultrasound in 10-14 days and schedule new ob visit ASSESSMENT AND PLAN: Assessment & Plan son in 2 weeks. ftft > 30m consultation with RR Pam Robertson MD [1] Social History Tobacco Use Smoking status: Former Current packs/day: 0.00 Average packs/day: 1 pack/day for 17.0 years (17.0 ttl pk-yrs) Types: Cigarettes Start date: 01/23/2004 Quit date: 01/22/2021 Years since quittin.9 Smokeless tobacco: Never Vaping Use Vaping status: current everyday user Substance Use Topics Alcohol use: No Drug use: No documented [facility] Hospital Discharge instructions Patient Education 01/14/2025 15:41:52 Healthy Eating Habits During Healthy Eating Habits During It s important to develop healthy eating habits while you are , for you as well as for yourbaby. Here are some ways to stay healthy. Aim for a healthy weight A slow, steady rate of weight gain is often best. After the first trimester, you may gain about a pound a week. If you were overweight before , you need to gain fewer pounds. Your healthcareprovider can give you a healthy weight goal for your . Don t diet Now is not the time to diet. You may not get enough of the nutrients you and your baby need. Instead, learn how to be a healthy eater. Start by doing it for your baby. Soon, you may do it for yourself. Vitamins and supplements Talk with your healthcare provider about taking these and other vitamins and supplements. Iron makes the extra blood you need now. Calcium and vitamin D help build and keep strong bones. Folic acid helps prevent certain defects. Iodine helps the thyroid work right. Some vitamins may not be safe to take. Your healthcare provider will tell you which ones to avoid. Fluids Drink at least 8 to 10 cups of fluid daily. Your baby needs fluids. Fluids also decrease constipation, flush out toxins and waste, limit swelling, and help prevent bladder infections. Water is best. Other good choices are: Water or seltzer water with a slice of lemon or red cliff (These can also help ease an upset stomach.) Clear soups that are low in salt Low-fat or fat-free milk, soy or rice milk with calcium added Popsicles or gelatin Things to avoid Some things might harm your growing baby. Don t eat or drink: Alcohol Unpasteurized dairy foods and juices Raw or undercooked meat, poultry, fish, or eggs Unwashed fruits and vegetables Prepared meats, like deli meats or hot dogs, unless heated until steaming hot Fish that are high in mercury, like shark, swordfish, ivan mackerel, tilefish, and albacore tuna Things to limit Ask your healthcare provider whether it s safe to eat or drink: Caffeine Artificial sweeteners Organ meats Certain types of fish Fish and shellfish that contain mercury in lower amounts, like shrimp, canned light tuna, salmon, pollock, and catfish [id number] [employer] [place] [address]. All rights reserved. This information is not intended as a substitute for professional medical care. Always follow yourhealthcare professional's instructions. Follow Up Care 01/14/2025 12:48:30 With:[facility] INFANT AND TODDLER TEACHER Address: [address] [place] [address]- When:2-4 days [facility] 08-12-2025 Emergency department Discharge summary Discharge Instructions Thank you for allowing [facility] to assist you with your healthcare needs. The following is importantdischarge information regarding your hospital visit. Diagnosis from Today's Visit Abdominal pain in What to Do Next Instructions from Your Care Team No qualifying data available. Post Acute Orders No qualifying data available. You Need to Schedule the Following Appointments Follow Up with [facility] INFANT AND TODDLER TEACHER When:Within 2-4 days Where:[address] [place] [address]- Allergies No Known Medication Allergies Medications Please [...] medication providers or retail pharmacies. Education Materials Healthy Eating Habits During It s important to develop healthy eating habits while you are , for you as well as for yourbaby. Here are some ways to stay healthy. Aim for a healthy weight A slow, steady rate of weight gain is often best. After the first trimester, you may gain about a pound a week. If you were overweight before , you need to gain fewer pounds. Your healthcareprovider can give you a healthy weight goal for your . Don t diet Now is not the time to diet. You may not get enough of the nutrients you and your baby need. Instead, learn how to be a healthy eater. Start by doing it for your baby. Soon, you may do it for yourself. Vitamins and supplements Talk with your healthcare provider about taking these and other vitamins and supplements. Iron makes the extra blood you need now. Calcium and vitamin D help build and keep strong bones. Folic acid helps prevent certain defects. Iodine helps the thyroid work right. Some vitamins may not be safe to take. Your healthcare provider will tell you which ones to avoid. Fluids Drink at least 8 to 10 cups of fluid daily. Your baby needs fluids. Fluids also decrease constipation, flush out toxins and waste, limit swelling, and help prevent bladder infections. Water is best. Other good choices are: Water or seltzer water with a slice of lemon or red cliff (These can also help ease an upset stomach.) Clear soups that are low in salt Low-fat or fat-free milk, soy or rice milk with calcium added Popsicles or gelatin Things to avoid Some things might harm your growing baby. Don t eat or drink: Alcohol Unpasteurized dairy foods and juices Raw or undercooked meat, poultry, fish, or eggs Unwashed fruits and vegetables Prepared meats, like deli meats or hot dogs, unless heated until steaming hot Fish that are high in mercury, like shark, swordfish, ivan mackerel, tilefish, and albacore tuna Things to limit Ask your healthcare provider whether it s safe to eat or drink: Caffeine Artificial sweeteners Organ meats Certain types of fish Fish and shellfish that contain mercury in lower amounts, like shrimp, canned light tuna, salmon, pollock, and catfish [phone] [employer]. [address] [place] [address]. All rights reserved. This information is not intended as a substitute for professional medical care. Always follow yourhealthcare professional's instructions. Additional Information VACCINATE! IT SAVES LIVES! Members of the community who have not yet received the COVID-19 vaccine and would like to receive it can visit one of [facility] vaccine clinics. There are many vaccine clinic locations within the [facility]. For locations and available times, please visit www.[email or web address]/. It is important to note that some COVID mobile vaccine clinics are held outdoors and may be canceled in rainy or stormy conditions. To learn more about pediatric vaccinations (ages 5-11), we invite you to visit the [facility] webpage. https://www.[email or web address]/pages/0009-Mvzrq-Lcsgcahfwgy-Lrvpjokhhz-Zvvpk-Tjz stions.htmlTo learn more about the COVID-19 vaccine, we invite you to visit the CDC website for a list of frequently asked questions. https://www.cdc.gov/coronavirus/2019-ncov/vaccines/faq.html [facility] Patient Portal Access Instructions: Stay connected with your healthcare team and access your personal medical information anytime with the [facility] Patient Portal. If you would like a full copy of your medical records please contact the [facility] Medical Records Department Monday through Monday between 8a.m. and 4:30p.m. Please follow the directions below to access the portal: 1.Access the email account you provided upon [facility].2.Look for an invitation email from [facility].3.Open the email and access the invitation link: Accept Invitation to [facility]4.Fill in the required coughlin to create your account. Sign into [email or web address] with your username and password that you [...] you will allow to register on the [facility] Patient Portal for access to your information. You can also access the [facility] Patient Portal on the [employer]. Simply click on Health Records under [employer] and then click on the [facility] logo. [...] Call your local pharmacy or go to http://bit.Twitmusic/3Z5Wh4r to find one close to you.3.Make use of household items: Use cat litter or old coffee grounds to dispose medications if other options arenot available. Mix your drugs with these household products, seal them in an airtight container andthrow it into the garbage. Call [facility]: [phone] to be sure your drugs can be [...] a CHART COPY Signatures Patient Education Materials Healthy Eating Habits During Medication Leaflets My discharge plan and instructions have been reviewed and explained to me and I,QUE MCGARRY understand my current condition and have read and understand these discharge instructions. I have received a written copy of the plan/instructions. If I have questions, I am aware that I should contact my doctor. 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 Appointment rescheduled. Joanne Jamison RN [facility]08-12-2025 Miscellaneous Notes* Telephone Encounter - Joanne Jamison RN - 01/14/2025 12:07 PM EDT Patient notified and voiced understanding. Appointment rescheduled. Joanne Jamison RN * Telephone Encounter - Alejo Gruber MD - 01/14/2025 12:01 PM EDT Please schedule with AT tomorrow morning. At that visit hcg levels and US can be ordered as appropriate. Alejo Gruber MD * Telephone Encounter - Yolanda Leary RN - 01/14/2025 10:24 AM EDT LMP 12/11/24 ega 4w6d Pt states she currently is a patient at [facility], but states prior Pt here and our OB dr's delivered her children, so wanting to return. However, does appear Pt saw [facility] 09/05/24. Had Tubal reversal 08/29/24 @ personal choice in ID. HCG levels checked on 01/11/20256203=6760 01/12/25=2542 Pt states US should be done between 1500 & 2000 per her surgeon. States she mentioned this to [facility], but has not received call back and has been unable to get new OB appt scheduled. Pt is concerned and wanting US as she c/o left side pain since along with neck/shoulder discomfort; however, comforted that her HCG levels are increasing. Scheduled Pt at 11am on 01/17/25 for NOB appt. Should Pt have formal US completed soon d/t hx of tubal reversal& HCG #'s? Pt adamant that she have early OB appt with hx of tubal reversal d/t high risk. Pt plans to contact [facility] to have records transferred here. Please advise. Yolanda Leary RN documented in [place] encounterAntonio [place] [address]-12-2025 Telephone encounter Note * Telephone Encounter - Alejo Gruber MD - 01/14/2025 12:01 PM EDT Please schedule with AT tomorrow morning. At that visit hcg levels and US can be ordered as appropriate. Alejo Gruber MD [facility]08-12-2025 Telephone encounter Note* Telephone Encounter - Yolanda Leary RN - 01/14/2025 10:24 AM EDT LMP 12/11/24 ega 4w6d Pt states she currently is a patient at [facility], but states prior Pt here and our OB dr's delivered her children, so wanting to return. However, does appear Pt saw [facility] 09/05/24. Had Tubal reversal 08/29/24 @ personal choice in ID. HCG levels checked on 01/11/20252414=1936 01/12/25=2542 Pt states US should be done between 1500 & 2000 per her surgeon. States she mentioned this to [facility], but has not received call back and has been unable to get new OB appt scheduled. Pt is concerned and wanting US as she c/o left side pain since along with neck/shoulder discomfort; however, comforted that her HCG levels are increasing. Scheduled Pt at 11am on 01/17/25 for NOB appt. Should Pt have formal US completed soon d/t hx of tubal reversal& HCG #'s? Pt adamant that she have early OB appt with hx of tubal reversal d/t high risk. Pt plans to contact [facility] to have records transferred here. Please advise. Yolanda Leary RN [facility]08-01-2025 [facility] [address] [place] [address], [address] [place] [id number] OFFICE VISIT Date of Service: 01/03/25 MR#: [id number] Acct: [id number] Name: QUE MCGARRY Rep #: [id number] : 1990 Provider: TIM Roach Age/Sex: 34/F [place] [facility]: Signed Intake Vital Signs 11/23/24 20:23 01/03/25 15:35 Height 5 ft 6 in 5 ft 6 in Weight: 177 lb 4 oz BMI 28.5 BP 108/68 Intake Visit Reasons: Possible BV Chief Complaint: Possible BV Pre Press Manager Required: No Is patient in pain?: No [...] tablet 200 mg PO QDAY 01/03/2506/29 History prenat.vits,malgorzata,leg-jxxr-osgot tab PO 01/03/25 5 History zinc acetate [...] home: Yes HPI Possible BV Details: QUE MCGARRY is a 34 year old who presents [...] hours [facility] Dr. Jurado 10/12/21 Edward 40 live - [...] bimanual exam, normal palpation, uterine size normal, Notender and non-tender Bimanual Exam- Adnexa, other: normal [...] Plan: HCG x 2 progesterone 01/03/25 1556 s CNM> Date _ Jeanette Doc TIM Cosigner Signature: Date (if applicable) CC: ~ [facility] [id number] Progress note Author Jeanette Roach [facility] Note Date/Time January 03, 2025 3:5 6pm [facility] [address], [address] [place] [address] OFFICE VISIT Date of Service: 01/03/25 MR#: [id number] Acct: [id number] Name: QUE MCGARRY Rep #: [id number] : 1990 Provider: TIM Roach Age/Sex: 34/F Location: [facility] Status: Signed Intake Vital Signs 11/23/24 20:23 01/03/25 15:35 Height 5 ft 6 in 5 ft 6 in Weight: 177 lb 4 oz BMI 28.5 BP 108/68 Intake Visit Reasons: Possible BV Chief Complaint: Possible BV Pre Press Manager Required: No Is patient in pain?: No [...] tablet 200 mg PO QDAY 01/03/2506/29 History prenat.vits,malgorzata,zjz-owew-pguwt tab PO 01/03/25 5 History zinc acetate 25 mg (zinc) capsule 25 mg PO QDAY 01/03/25 History Is last menstrual period known: Yes Last Menstrual Period: 12/11/24 Post menopausal: No Patient : Yes : No [facility] Medical History Multiple personality disorder History [...] home: Yes HPI Possible BV Details: QUE MCGARRY is a 34 year old who presents [...] Female 46 suzette rs [facility] KAT Hernadez 07/12/12 Pj 38 live - full term 7lbs 6oz Male 4 hours [facility] Lilli Piña 07/15/16 Missy 37 live - full term 7lbs 8oz Male 12 hours [facility] Dr. Jurado 10/12/21 Edward 40 live - full term 8lbs 2oz Male Christina contreras Will 03/10/24 Von live - full term Male SM Delivery Date: 02/23/08 Last Updated by: Tameka Harp Cord wrapped around neck twice and around body once. Born not breathing Delivery Date: 09/07/10 Last Updated by: Taemka Harp Cord around neck x1 Delivery Date: [...] Cosigner Signature: Date (if applicable) CC: ~ [facility] Work Phone: 1(369) 128-548907-21-2025 Procedure note [facility] Medical Records Department [address] [place] [address] Procedure Report 12/20/24 1712 MR#: [id number] Acct: [id number] Name: QUE MCGARRY Rep #:[id number] : 1990 34 From: Melissa Brasher DO PCP: Dr. Davide Chao MD Status:RE G CLI Location: RAD Problems Associated Problem List Diagnoses (1) Tubal reversal surgical follow up: Multi Select Codes Urinary/Genital Urinary/Genital CPT Codes: 32326 HSG/SIS Non-invasive Procedural Procedure Information Date of Procedure: 12/23/24 Pre-Procedure Diagnosis: tubal reversal follow up Post-Procedure Diagnosis: tubal reversal follow up Procedure Performed:: HSG director medical science: No Description of procedure: Operative details: Patient [...] Brasher DO; Dr. Davide Chao MD~ Signed [facility]07-18-2025 Evaluation note* Diagnosis Onset Date Resolution Status Admit Date Tubal reversal surgical foll ow up acute December 20, 2024 11:44am [facility] Work Phone: 1(180) 137-729907-18-2025 Evaluation note* Diagnosis Onset Date Resolution Status Admit Date Tubal reversal surgical foll ow up acute December 20, 2024 11:44am Amenorrhea acute January 03 3:30pm Vaginal odor acute January 03, 2025 3:30pm [facility] Work Phone: 1(389) 931-733307-18-2025 Evaluation note* Diagnosis Onset Date Resolution Status Admit Date Tubal reversal surgical foll ow up acute December 20, 2024 11:44am Amenorrhea acute January 03 3:30pm Vaginal odor acute January 03, 2025 3:30pm Tachycardia acute March 14, 2025 2:49pm [facility] Work Phone: 1(647) 241-992807-18-2025 Radiology Diagnostic study note [facility] Imaging Services [address] [place], [place] [id number] Salpingogram MR#: [id number] Acct: [id number] Name: QUE MCGARRY Rep #: [id number] : 1990 F 34 From: Andrés Sullivan MD PCP: Dr. Davide Chao MD Status: RE G CLI Study:Salpingogram Date of Exam: 5 Exam# [id number] Ordering Dr: Melissa Mcneill DO PROCEDURE: SALPINGOGRAM 12/20/2024 REASON FOR EXAM: HSG TECHNIQUE: SALPINGOGRAM COMPARISON: None FINDINGS: Hysterosalpingogram was performed by the grader tender. Imaging was provided. Dose report: 21 seconds of fluoroscopy. 8.98 mGy. 2 images were submitted. The uterus is unremarkable. Both fallopian tubes are patent with free spill. RAD/Salpingogram IMPRESSION: Unremarkable hysterosalpingogram. Reading Location: [facility] CC: Dr. Melissa Brasher DO; Dr. Davide Chao MD ~ Coupler: Signed [facility]06-21-2025 Radiology Diagnostic study note [facility] Imaging Services [address] [place] [id number] Chest PA and Lateral MR#: [id number] Acct: [id number] Name: QUE MCGARRY Rep #: [id number] : 1990 F 34 From: Carolyne Vo MD PCP: Dr. Davide Chao MD Status: RE G ER Study:Chest PA and Lateral Date of Exam: 11/23/24 Exam# [id number] Ordering Dr: Ryan Pearson DO PROCEDURE: CHEST PA AND LATERAL 11/23/2024 REASON FOR EXAM: CHEST PAIN TECHNIQUE: CHEST PA AND LATERAL COMPARISON: Chest radiograph 05/08/2018. FINDINGS: Hardware: None. Heart: The heart size is normal. Mediastinum: The mediastinal contour is unremarkable. Lungs: No focal consolidation, pleural effusion or pneumothorax. Bones: The bones are unremarkable. RAD/Chest PA and Lateral IMPRESSION: NEGATIVE CHEST Reading Location: [facility] CC: Dr. Davide Chao MD; Dr. Ryan Pearson DO ~ Coupler: Signed [facility]04-10-2025 Telephone encounter Note* Telephone Encounter - Omer Cowan RN - 09/12/2024 9:31 AM EDT Faxed US pelvic results to attn: Samara/nurse, [facility], per patient request. [facility]04-10-2025 Miscellaneous Notes* Telephone Encounter - Omer Cowan RN - 09/12/2024 9:31 AM EDT Faxed US pelvic results to attn: Samara/nurse, [facility], per patient request. documented in this encounterMercy Health Anderson Hospital04-08-2025 NoteHNO ID: [id number] Author: LATONIA GRAY MD Service: ? Author Type: Physician Type: Progress Notes Filed: 09/11/2024 23:10 Note Text: The patient presents for requested ultrasound. Full report available in the Imaging tab in [employer]. [facility] History of Present illness Narrative* Latonia Gray MD - 09/10/2024 11:01 PM EDT The patient presents for requested ultrasound. Full report available in the Imaging tab in [employer]. Latonia Gray MD documented in this encounterMercy Health Anderson Hospital04-03-2025 History of Present illness Narrative* Marina Ponce, BEET END SUPERVISOR.BROOM MAKER - 09/05/2024 7:00 AM EDT Que Mcgarry is a 34 year old female who presents for problem visit 2nd opinion uterine cyst/polyp HPI: Tubal reversal 08/29/2024 in [place] - brings records with her. Was previously told thatkiley had a cyst in her uterus but now sent message on portal from OBGYN that she has a uterine polypthat should be removed as it could cause miscarriage. US report as below - indicates cyst. She doeshave known adenomyosis. She would like second opinion as she does would like to achieve and was told that it was most likely soon after tubal reversal. 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 Follow- up as needed. Marina Ponce APRN.CNP Medical Decision Making: Problems: Moderate: New problem with uncertain prognosis Data: Unique source(s) for external note(s) reviewed: 2 Unique test result(s) reviewed: 2 Unique test(s) ordered: 1 Medical Decision Making Level: 4 - Moderate documented in this encounterMercy Health Anderson Hospital04-03-2025 NoteHNO ID: [id number] Author: MARINA PONCE APRN.CNP Service: ? Author Type: Nurse Practitioner Type: Progress Notes Filed: 09/05/2024 08:06 Note Text: Que Mcgarry is a 34 year old female who presents for problem visit 2nd opinion uterine cyst/polyp HPI: Tubal reversal 08/29/2024 in [place] - brings records with her. 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 as needed. Follow-up with cardiology with your history of A-fib and ablation in the past. If you develop any recurrent worsening symptoms, return to ED for reevaluation.[facility] Work Phone: Hospital Discharge instructions No data available for this section [facility] Hospital Discharge instructionsAdditional Instructions Your evaluation in the Emergency Department did not reveal any acute reason for admission. However, I want to emphasize that you may be early in the course of a disease process or illness even if it is not present. For this reason you should follow-up within 24 hours for reevaluation with either your primary care physician or if necessary back here in the Emergency Department. You should return to the Emergency Department immediately if your symptoms worsen or new symptoms develop.[facility] Work Phone: Instructions* Attachments The following attachments cannot be sent through Care Everywhere. * Otitis Media (Puerto Rican) documented in [facility] note No data available for this section [facility] Reason for referral (narrative)* Consultation (Routine) - Pending Review Specialty Diagnoses / Procedures Referred By Elder merritt Referred To Contact Obstetrics and Gynecology Procedures [place] OFFICE/OUTPATIENT NEW HIGH MDM 60-74 MINUTES Cheyanne Izgauirre, [address] [place] [address] Referral ID Status Reason Start Date Expiration Date Visits Requested Visits Authorized [id number] Pending Review Specialty Services Required 03/13/2023 09/09/2023 1 1 [facility] Work Phone: Reason for referral (narrative)No reason for referral [facility] Work Phone: Reason for visit Narrative* Initial Evaluation . Low back pain/Neck pain. * Referred by: Davide Chao MD [facility] Work Phone: Reason for visit Narrative* Diagnostic Procedure Only (Routine) - Closed Specialty Diagnoses / Procedures Referred By Elder merritt Referred To Contact [facility] Diagnoses Uterine cyst Adenomyosis of uterus Procedures PELVIC US WHI US PELVIC NONOBSTETRIC REAL-TIME IMAGE COMPLETE Marina Ponce, DENISSE.BONITA [address] [place] [address] Phone: tel: fax: [address] [address] Referral ID Status Reason Start Date Expiration Date V isits Requested Visits Authorized [id number] Closed Auto-Generate d Referral 09/05/2024 09/05/2025 1 1 [facility] for visit Narrative* Diagnostic Procedure Only (Routine) - Closed Specialty Diagnoses / Procedures Referred By Conthyun t Referred To Contact [facility] Diagnoses Threatened (HCC) Procedures PELVIC US [facility] US PELVIC NONOBSTETRIC REAL-TIME IMAGE COMPLETE Pam Robertson MD [address] [place] [address] Phone: tel: fax: [address] [address] Referral ID Status Reason Start Date Expiration Date V isits Requested Visits Authorized [id number] Closed Auto-Generate d Referral 01/15/2025 01/15/2026 1 1 [facility] Summary Purpose Family History Unknown Family [...] of multiple s clerosis: Sister(V17.2, Z82.0) Status:Active Relationship Condition Age at Onset Recorded Date/T luz elena Not Specified Hypertension Unknown Advance Directives Documents on File Type Date Recorded 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 and Livin g Will 09/01/2018 5:16 PM Documents on File Type Date Recorded 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 and Livin g Will 09/01/2018 5:16 PM Latest Code Status on File Code Status Date Activated Date Inactivated Comments Full Code - Unverified 09/26/2020 8:24 PM 09/26/2020 10: 50 PM Documents on File Type Date 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 and Livin g Will 09/27/2020 5:16 PM Documents on File Type Date 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 and Livin g Will 05/17/2021 1:51 PM Latest Code Status on File Code Status Date Activated Date Inactivated Comments Full Code - Unverified 09/26/2020 8:24 PM 09/26/2020 10: 50 PM Documents on File Type Date 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 Advance Directive(s) Advance Directive(s) [...] No September 25, 2020 3:03pm Power of Railroad Car Cleaner No September 25 3:03pm Advance Directive Response Recorded Date/ Time Advance Directives No July 2:22am Living Will No September 25, 2020 4:03pm Power of Railroad Car Cleaner No September 25 4:03pm Advance Directive Response Recorded Date/ Time Advance Directives No July 2:22am Living Will No January 23 3 9:45pm Power of Railroad Car Cleaner No January 23, 2 023 9:45pm Advance Directive Response Recorded Date/ Time Advance Directives No July 2:22am Living Will No March 09 3 5:42pm Power of Railroad Car Cleaner No March 09 2 023 5:42pm Advance Directive Response Recorded Date/ Time Advance Directives No July 1:22am Living Will No March 09 3 4:42pm Power of Railroad Car Cleaner No March 09, 2 023 4:42pm Advance Directive Response Recorded Date/ Time Advance Directives No July 2:22am Living Will No September 21, 2023 8:57am Power of Railroad Car Cleaner No September 20 8:57am Advance Directive Response Recorded Date/ Time Advance Directives No April 10:08am Advance Directive Response Recorded Date/ Time Do you have a Healthcare Power of Railroad Car Cleaner? No November 23, 2024 8:22pm Advance Directives No April 10:08am Date Activated Date Inactivated Comments 09/26/2020 8:24 PM 09/26/2020 10:50 PM Advance Directive Response Recorded Date/ Time Do you have a Healthcare Power of Railroad Car Cleaner? No March 26, 2025 1:09pm Advance Directives No April 10:08am Advance Directive Response Recorded Date/ Time Do you have a Healthcare Power of Railroad Car Cleaner? No April 07, 2025 11:06pm Do you have a Healthcare Power of Railroad Car Cleaner? No March 26, 2025 12:09pm Advance Directives No April 9:08am Discharge Instructions * Instructions* Davide Marion PA-C - 09/01/2018 THE UROLOGIST AT [facility] STATES THAT YOUR KIDNEY STONE IS JUST ABOVE THE LEVEL OF YOUR URINARY BLADDER AND SHOULD PASS IN THE NEAR FUTURE. IF YOU ARE STILL EXPERIENCING SYMPTOMS ON MONDAY MORNING YOU MUST CONTACT YOUR UROLOGIST AT [facility]. OUR UROLOGIST ALSO STATES THAT YOU SHOULD RETURN TO THE EMERGENCY DEPARTMENT IF YOU DEVELOP A FEVER. YOU SHOULD TAKE YOUR TEMPERATURE AT HOME ON A REGULAR BASIS TO SEE IF YOU ARE DEVELOPING A FEVER THAT YOU MAY NOT NOTICE. * Attachments The following attachments cannot be sent through Care Everywhere. * Kidney Stone (Puerto Rican) in this encounter Assessments Diagnosis Kidney stone on left side- Primary Diagnosis Cervical pain- Primary Cervicalgia Reason for Referral Status Reason Specialty Diagnoses / Procedures Referred By Contact Referred To Contact Authorized Neurosurgery Diagnoses Cervical pain Davide Chao MD [address] [place] [address] [facility] [address] [place] [address] Specialty Diagnoses / Procedures Referred By Contac t Referred To Contact Cardiology Diagnoses Palpitations Procedures Extended Holter Monitor (3-7 days) Yuri Palencia MD [address] [place] [address] Referral ID Status Reason Start Date Expiration Date Visits Re quested Visits Authorized [id number] Closed 05/17/2021 05/17/2022 1 1 Specialty Diagnoses / Procedures Referred By Contac t Referred To Contact Cardiology Diagnoses Palpitations Procedures Echocardiogram complete Yuri Palencia MD [address] [place] [address] Referral ID Status Reason Start Date Expiration Date V isits Requested Visits Authorized [id number] New Request 05/17/2021 05/17/2022 1 1 Specialty Diagnoses / Procedures Referred By Contac t Referred To Contact Radiology Diagnoses , unspecified gestational age Procedures US OB TRANSVAGINAL Yaniv Pederson MD [address] [place] [address] Referral ID Status Reason Start Date Expiration Date Visits Re quested Visits Authorized [id number] Open 07/26/2022 07/26/2023 1 1 Specialty Diagnoses / Procedures Referred By Contac t Referred To Contact [facility] Diagnoses Chronic bilateral low back pain with left-sided sciatica Procedures CONSULT TO PHYSICAL THERAPY PHYSICAL THERAPY EVALUATION HIGH COMPLEX 45 MINS Davide Chao MD [address] [place] [address] [facility] [place] [address] [place] [address] Referral ID Status Reason Start Date Expiration Date Visits Requested Visits Authorized [id number] Pending Review Auto-Generat ed Referral 10/10/2022 10/10/2023 1 1 Specialty Diagnoses / Procedures Referred By Contac t Referred To Contact Cardiology Diagnoses History of PSVT (paroxysmal supraventricular tachycardia) Procedures CONSULT TO CARDIOLOGY OFFICE/OUTPATIENT NEW [facility] MDM 60-74 MINUTES Davide Chao MD [address] [place] [address] Referral ID Status Reason Start Date Expiration Date Visits Requested Visits Authorized [id number] Authorized PCP Requested Referral 10/10/2022 10/10/2023 1 1 Specialty Diagnoses / Procedures Referred By Contac t Referred To Contact Cardiovascular Medicine Diagnoses Near syncope Tachycardia Procedures HOLTER MONITOR - PHYSICAL THERAPY NURSE Alina Alvarado MD [address] [facility] 1st [place] [address] [facility] Press Set Up Person [address] [place] [address] Referral ID Status Reason Start Date Expiration Date Visits Re quested Visits Authorized [id number] Closed 05/24/2023 06/17/2024 1 1 Specialty Diagnoses / Procedures Referred By Contac t Referred To Contact Diagnoses ADHD (attention deficit hyperactivity disorder), combined type Davide Chao MD [address] [place] [address] Referral ID Status Reason Start Date Expiration Date V isits Requested Visits Authorized [id number] Pending Review 1 1 [facility] Complaint Patient [...] affecting Herpes simplex infection during , antepartum [id number] History of pre-eclampsia Rh negative status during Spotting Supervision of high risk , antepartum Chief Complaint EORDERS Rhogam Inj VIABILITY NOB LMP 1 PAP, 14 WK OB Reason for Visit Depression affecting Herpes simplex infection during , antepartum [id number] History of pre-eclampsia Rh negative status during Spotting Supervision of high risk , antepartum Depression affecting Herpes simplex infection during , antepartum [id number] History of pre-eclampsia Rh negative status during Spotting Supervision of high risk , antepartum Chief Complaint EORDERS Rhogam Inj VIABILITY NOB LMP 1 PAP, 14 WK OB 19 wk ob ANATOMY 18-20 WEEKS Reason for Visit Depression affecting Herpes simplex infection during , antepartum [id number] History of pre-eclampsia Rh negative status during Spotting Supervision of high risk , antepartum Depression affecting Herpes simplex infection during , antepartum [id number] History of pre-eclampsia Rh negative status during Spotting Supervision of high risk , antepartum Depression affecting Herpes simplex infection during , antepartum [id number] History of pre-eclampsia Rh negative status during Spotting Supervision of high risk , antepartum Chief Complaint 14 WK OB 19 wk ob ANATOMY 18-20 WEEKS rhogam 23 WK OB 27 WK OB/GLUCOSE 30 WK OB R/O UTI R/O UTI palpitations Reason for Visit Depression affecting Herpes simplex infection during , antepartum [id number] History of pre-eclampsia Rh negative status during Spotting Supervision of high risk , antepartum Depression affecting Herpes simplex infection during , antepartum [id number] History of pre-eclampsia Rh negative status during Spotting Supervision of high risk , antepartum Rh negative status during Depression affecting Herpes simplex infection during , antepartum [id number] History of pre-eclampsia Rh negative status during Spotting Supervision of high risk , antepartum Chronic headache Arthritis pain, hip Depression affecting Herpes simplex infection during , antepartum [id number] History of pre-eclampsia Rh negative status during Sciatic leg pain Supervision of high risk , antepartum Chronic headache Abnormal glucose Back pain Depression affecting Herpes simplex infection during , antepartum [id number] History of pre-eclampsia Rh negative status during Supervision of high risk , antepartum Vaginal discharge during Chronic headache UTI in Chief Complaint 19 wk ob ANATOMY 18-20 WEEKS rhogam 23 WK OB 27 WK OB/GLUCOSE 30 WK OB R/O UTI R/O UTI palpitations DORSALGIA, 23 WKS /NST Reason for Visit Depression affecting Herpes simplex infection during , antepartum [id number] History of pre-eclampsia Rh negative status during Spotting Supervision of high risk , antepartum Rh negative status during Depression affecting Herpes simplex infection during , antepartum [id number] History of pre-eclampsia Rh negative status during Spotting Supervision of high risk , antepartum Chronic headache Arthritis pain, hip Depression affecting Herpes simplex infection during , antepartum [id number] History of pre-eclampsia Rh negative status during Sciatic leg pain Supervision of high risk , antepartum Chronic headache Abnormal glucose Back pain Depression affecting Herpes simplex infection during , antepartum [id number] History of pre-eclampsia Rh negative status during [...] affecting Herpes simplex infection during , antepartum [id number] History of pre-eclampsia Rh negative status during Spotting Supervision of high risk , antepartum Rh negative status during Depression affecting Herpes simplex infection during , antepartum [id number] History of pre-eclampsia Rh negative status during Spotting Supervision of high risk , antepartum Chronic headache Arthritis pain, hip Depression affecting Herpes simplex infection during , antepartum [id number] History of pre-eclampsia Rh negative status during Sciatic leg pain Supervision of high risk , antepartum Chronic headache Abnormal glucose Back pain Depression affecting Herpes simplex infection during , antepartum [id number] History of pre-eclampsia Rh negative status during Supervision of high risk , antepartum Vaginal discharge during Chronic headache UTI in Depression affecting Elevated bilirubin Hypokalemia Pruritus of Supervision of high risk , antepartum Elevated bilirubin Abnormal glucose Arthritis pain, hip Back pain Chlamydia infection affecting Cholestasis during Depression affecting Elevated bilirubin Herpes simplex infection during , antepartum [id number] History of pre-eclampsia Hx of cholecystectomy Hypokalemia Pruritus of Rh negative status during Sciatic leg pain Spotting Supervision of high risk , antepartum UTI in Vaginal discharge during Chronic headache Abnormal glucose Arthritis pain, hip Back pain Chlamydia infection affecting Depression affecting Elevated bilirubin Herpes simplex infection during , antepartum [id number] History of pre-eclampsia Hx of cholecystectomy Hypokalemia [...] affecting Herpes simplex infection during , antepartum [id number] History of pre-eclampsia Rh negative status during Spotting Supervision of high risk , antepartum Chronic headache Arthritis pain, hip Depression affecting Herpes simplex infection during , antepartum [id number] History of pre-eclampsia Rh negative status during Sciatic leg pain Supervision of high risk , antepartum Chronic headache Abnormal glucose Back pain Depression affecting Herpes simplex infection during , antepartum [id number] History of pre-eclampsia Rh negative status during Supervision of high risk , antepartum Vaginal discharge during Chronic headache UTI in Depression affecting Elevated bilirubin Hypokalemia Pruritus of Supervision of high risk , antepartum Elevated bilirubin Abnormal glucose Arthritis pain, hip Back pain Chlamydia infection affecting Cholestasis during Depression affecting Elevated bilirubin Herpes simplex infection during , antepartum [id number] History of pre-eclampsia Hx of cholecystectomy Hypokalemia Pruritus of Rh negative status during Sciatic leg pain Spotting Supervision of high risk , antepartum UTI in Vaginal discharge during Chronic headache Abnormal glucose Arthritis pain, hip Back pain Chlamydia infection affecting Depression affecting Elevated bilirubin Herpes simplex infection during , antepartum [id number] History of pre-eclampsia Hx of cholecystectomy Hypokalemia [...] affecting Herpes simplex infection during , antepartum [id number] History of pre-eclampsia Rh negative status during Supervision of high risk , antepartum Chronic headache Spotting Depression affecting Herpes simplex infection during , antepartum [id number] History of pre-eclampsia Rh negative status during Supervision of high risk , antepartum Chronic headache Arthritis pain, hip Sciatic leg pain Abnormal glucose Depression affecting Herpes simplex infection during , antepartum [id number] History of pre-eclampsia Rh negative status during Supervision of high risk , antepartum Chronic headache Back pain Vaginal discharge during UTI in Depression affecting Elevated bilirubin Supervision of high risk , antepartum Hypokalemia Pruritus of Elevated bilirubin Abnormal glucose Chlamydia infection affecting Depression affecting Elevated bilirubin Herpes simplex infection during , antepartum [id number] History of pre-eclampsia Rh negative status during Supervision of high risk , antepartum Chronic headache Arthritis pain, hip Back pain Cholestasis during Hypokalemia Pruritus of Sciatic leg pain Spotting UTI in Vaginal discharge during Abnormal glucose Chlamydia infection affecting Depression affecting Elevated bilirubin Herpes simplex infection during , antepartum [id number] History of pre-eclampsia Rh negative status during Supervision of high risk , antepartum Chronic headache Arthritis pain, hip Back pain Hypokalemia Pruritus of Sciatic leg pain Spotting Vaginal discharge during Abnormal glucose Chlamydia infection affecting Depression affecting Elevated bilirubin Herpes simplex infection during , antepartum [id number] History of pre-eclampsia Rh negative status during [...] affecting Herpes simplex infection during , antepartum [id number] History of pre-eclampsia Rh negative status during Supervision of high risk , antepartum Chronic headache Spotting Depression affecting Herpes simplex infection during , antepartum [id number] History of pre-eclampsia Rh negative status during Supervision of high risk , antepartum Chronic headache Arthritis pain, hip Sciatic leg pain Abnormal glucose Depression affecting Herpes simplex infection during , antepartum [id number] History of pre-eclampsia Rh negative status during Supervision of high risk , antepartum Chronic headache Back pain Vaginal discharge during UTI in Depression affecting Elevated bilirubin Supervision of high risk , antepartum Hypokalemia Pruritus of Elevated bilirubin Abnormal glucose Chlamydia infection affecting Depression affecting Elevated bilirubin Herpes simplex infection during , antepartum [id number] History of pre-eclampsia Rh negative status during Supervision of high risk , antepartum Chronic headache Arthritis pain, hip Back pain Cholestasis during Hypokalemia Pruritus of Sciatic leg pain Spotting UTI in Vaginal discharge during Abnormal glucose Chlamydia infection affecting Depression affecting Elevated bilirubin Herpes simplex infection during , antepartum [id number] History of pre-eclampsia Rh negative status during Supervision of high risk , antepartum Chronic headache Arthritis pain, hip Back pain Hypokalemia Pruritus of Sciatic leg pain Spotting Vaginal discharge during Abnormal glucose Chlamydia infection affecting Depression affecting Elevated bilirubin Herpes simplex infection during , antepartum [id number] History of pre-eclampsia Rh negative status during [...] affecting Herpes simplex infection during , antepartum [id number] History of pre-eclampsia Rh negative status during Spotting Supervision of high risk , antepartum Arthritis pain, hip Chronic headache Depression affecting Herpes simplex infection during , antepartum [id number] History of pre-eclampsia Rh negative status during Sciatic leg pain Supervision of high risk , antepartum Abnormal glucose Back pain Chronic headache Depression affecting Herpes simplex infection during , antepartum [id number] History of pre-eclampsia Rh negative status during Supervision of high risk , antepartum Vaginal discharge during UTI in Depression affecting Elevated bilirubin Hypokalemia Pruritus of Supervision of high risk , antepartum Elevated bilirubin Abnormal glucose Arthritis pain, hip Back pain Chlamydia infection affecting Cholestasis during Chronic headache Depression affecting Elevated bilirubin Herpes simplex infection during , antepartum [id number] History of pre-eclampsia Hypokalemia Pruritus of Rh negative status during Sciatic leg pain Spotting Supervision of high risk , antepartum UTI in Vaginal discharge during Abnormal glucose Arthritis pain, hip Back pain Chlamydia infection affecting Chronic headache Depression affecting Elevated bilirubin Herpes simplex infection during , antepartum [id number] History of pre-eclampsia Hypokalemia Pruritus of Rh negative status during Sciatic leg pain Spotting Supervision of high risk , antepartum Vaginal discharge during Abnormal glucose Chlamydia infection affecting Chronic headache Depression affecting Elevated bilirubin Herpes simplex infection during , antepartum [id number] History of pre-eclampsia Hypokalemia Pruritus of Rh negative status during Social discord Sterilization Supervision of high risk , antepartum False labor after 37 completed weeks of gestation Abnormal glucose Chlamydia infection affecting Chronic headache Depression affecting Elevated bilirubin Herpes simplex infection during , antepartum [id number] History of pre-eclampsia Rh negative status during Social discord Sterilization Supervision of high risk , antepartum Abnormal glucose Chlamydia infection affecting Chronic headache Depression affecting Elevated bilirubin Herpes simplex infection during , antepartum [id number] History of pre-eclampsia Rh negative status during Social discord Sterilization Supervision of high risk , antepartum Status post tubal ligation Abnormal glucose Chlamydia infection affecting Chronic headache Depression affecting Elevated bilirubin Herpes simplex infection during , antepartum [id number] History of pre-eclampsia Rh negative status during [...] bilirubin Herpes simplex infection during , antepartum [id number] History of pre-eclampsia Rh negative status during Social discord Sterilization Supervision of high risk , antepartum Abnormal glucose Chlamydia infection affecting Chronic headache Depression affecting Elevated bilirubin Herpes simplex infection during , antepartum [id number] History of pre-eclampsia Rh negative status during Social discord Sterilization Supervision of high risk , antepartum Abnormal glucose Chlamydia infection affecting Chronic headache Depression affecting Elevated bilirubin Herpes simplex infection during , antepartum [id number] History of pre-eclampsia Rh negative status during [...] reve rsal of January 09, 2025 7:54pm Chief Complaint Admit Date INT LAB ORDER [...] reve rsal of January 09, 2025 7:54pm History of reversal of tubal ligation [facility] 2024 4:00pm Chief Complaint Admit Date HSG December 20, 2024 11:4 4am HSG December 20, 2024 5:12 pm DAY MONITOR December 31, 2024 9:00 am EPISODIC TACHYCARDIA December 31, 2024 11: 36am Possible BV January 03, 2025 3:3 0pm Amenorrhea January 05, 2025 4:3 7pm at early stage History of reve rsal of January 09, 2025 7:54pm History of reversal of tubal ligation [facility] 2024 4:00pm EST/PALPS/HX OF AFIB/ABLATION March 142024 2:49pm sob March 26, 2025 1 :09pm Reason for Visit Admit Date Tubal reversal surgical follow up December 032024 11:44am Amenorrhea January 03, 2025 3:3 0pm Vaginal odor January 03, 2025 3:3 0pm Tachycardia March 14, 2025 2 :49pm Chief Complaint Admit Date HSG December 20, 2024 11:4 4am HSG December 20, 2024 5:12 pm 30 DAY MONITOR December 31, 2024 9:00 am EPISODIC TACHYCARDIA December 31, 2024 11: 36am Possible BV January 03, 2025 3:3 0pm Amenorrhea January 05, 2025 4:3 7pm at early stage History of reve rsal of tu January 09, 2025 7:54pm History of reversal of tubal ligation [facility] 2024 4:00pm EST/PALPS/HX OF AFIB/ABLATION March 142024 2:49pm sob March 26, 2025 1 :09pm DECREASED MOVEMENT April 07, 11:06pm Additional Source Comments INFORMATION SOURCE (unrecogn ized section and content) DATE CREATED AUTHOR 11/25/2017 [facility] DATE CREATED AUTHOR AUTHOR'S ORGANIZ ATION 07/25/2018 [facility] DATE CREATED AUTHOR AUTHOR'S ORGANIZ ATION 09/27/2018 [facility] DATE CREATED AUTHOR AUTHOR'S ORGANIZ ATION 10/26/2018 [employer] DATE CREATED AUTHOR AUTHOR'S ORGANIZ ATION 10/27/2018 [facility] DATE CREATED AUTHOR AUTHOR'S ORGANIZ ATION 02/15/2021 [facility] ([place]) DATE CREATED AUTHOR AUTHOR'S ORGANIZ ATION 06/01/2021 [facility] DATE CREATED AUTHOR AUTHOR'S ORGANIZ ATION 06/02/2021 [facility] DATE CREATED AUTHOR AUTHOR'S ORGANIZ ATION 06/28/2021 [facility] DATE CREATED AUTHOR AUTHOR'S ORGANIZ ATION 11/21/2021 [facility] DATE CREATED AUTHOR AUTHOR'S ORGANIZ ATION 08/11/2022 [facility] DATE CREATED AUTHOR AUTHOR'S ORGANIZ ATION 08/11/2022 [facility] DATE CREATED AUTHOR AUTHOR'S ORGANIZ ATION 08/12/2022 [facility] DATE CREATED AUTHOR AUTHOR'S ORGANIZ ATION 10/11/2022 [facility] DATE CREATED AUTHOR AUTHOR'S ORGANIZ ATION 11/30/2022 [facility] DATE CREATED AUTHOR AUTHOR'S ORGANIZ ATION 11/30/2022 [employer] DATE CREATED AUTHOR AUTHOR'S ORGANIZ ATION 06/02/2023 [facility] DATE CREATED AUTHOR AUTHOR'S ORGANIZ ATION 02/09/2024 [facility] DATE CREATED AUTHOR AUTHOR'S ORGANIZ ATION 08/18/2024 [facility] DATE CREATED AUTHOR AUTHOR'S ORGANIZ ATION 12/08/2024 [facility] DATE CREATED AUTHOR AUTHOR'S ORGANIZ ATION 01/25/2025 [facility] DATE CREATED AUTHOR AUTHOR'S ORGANIZ ATION 02/21/2025 [facility] DATE CREATED AUTHOR AUTHOR'S ORGANIZ ATION 03/10/2025 [facility] DATE CREATED AUTHOR AUTHOR'S ORGANIZ ATION 04/09/2025 [facility] DATE CREATED AUTHOR AUTHOR'S ORGANIZ ATION 04/15/2025 [facility] DATE CREATED AUTHOR AUTHOR'S ORGANIZ ATION 04/16/2025 [facility] Reason for Visit (unrecogniz ed section and content) Reason Comments Flank Pain pt was seen at [facility] yesterday and told to stay for treatment of kidneu stone. pt staets she left AMA and is here today for treatment. Reason Comments Blurred Vision Reason Comments Palpitations Specialty Diagnoses / Procedures Referred By Elder merritt Referred To Contact Cardiology Diagnoses heart pounding Maricel Simeon MD [address] [place] [phone] Referral ID Status Reason Start Date Expiration Date Visits Re quested Visits Authorized [id number] Closed 05/16/2021 05/16/2022 1 1 Reason Comments [...] US OB TRANSVAGINAL Yaniv Pederson MD [address] [place] [address] Referral ID Status Reason Start Date Expiration Date Visits Re quested Visits Authorized [id number] Open 07/26/2022 07/26/2023 1 1 Reason Comments Referral Request Specialty Diagnoses / Procedures Referred By Tanmayac t Referred To Contact Cardiovascular Medicine Diagnoses Tachycardia Near syncope Dizziness and giddiness Procedures HOLTER MONITOR - PHYSICAL THERAPY NURSE Alina Alvarado MD [address] [address] [place] [employer] [address] [place] [phone] Referral ID Status Reason Start Date Expiration Date Visits Re quested Visits Authorized [id number] Closed 10/20/2022 11/14/2023 1 1 Reason Comments [...] Near syncope Tachycardia Procedures HOLTER MONITOR - CORRECTION Alina Alvarado MD [address] [place] [address] [place] [employer] [address] [place] [phone] Referral ID Status Reason Start Date Expiration Date Visits Re quested Visits Authorized [id number] Closed 05/24/2023 06/17/2024 1 1 Reason Comments Vaginal Bleeding Pt has been having h eavy menstrual bleeding x approx 36 hours. Denies , has had tubal ligation. Reports lower abd cramping, mild light-headedness and headache. Specialty Diagnoses / Procedures Referred By Contac t Referred To Contact Diagnoses Near syncope Procedures TILT TABLE TEST Alina Alvarado MD [address] [place] [address] Referral ID Status Reason Start Date Expiration Date Visits Re quested Visits Authorized [id number] Closed 05/16/2023 06/09/2024 1 1 Reason Onset [...] Comments Ovarian Cyst Reason Comments Faxed to [facility] Reason Comments NOB w/ Tubal reversal Reason Comments Problem Visit Reason Comments Received Outside Medical Records Reason Comments Care Reason Comments PRAF Reason Comments Constipation Reason Comments [facility] Bernardo Sibley, MICHAEL - 09/01/2018 9:05 PM EDFARZANAtransBernardo roger RN - 09/01/2018 8:50 PM Eden Oneil EMT - 09/01/2018 7:28 PM EDTUtAndry merritt [...] Care Teams (unrecognized sec tion and content) Transportation Equipment Painter Relationship Specialty Start Date End Date Davide Chao MD [address] [place] [phone] PCP - General Family Medicine 05/13/15 Transportation Equipment Painter Relationship Specialty Start Date End Date Davide Chao MD [address] [place] [phone] PCP - General Family Medicine 06/23/17 Transportation Equipment Painter Relationship Specialty Start Date End Date Davide Chao MD [address] [place] [phone] PCP - General Family Medicine 05/13/15 Transportation Equipment Painter Relationship Specialty Start Date End Date Davide Chao MD [address] [place] [phone] PCP - General 04/07/09 Transportation Equipment Painter Relationship Specialty Start Date End Date Davide Chao MD [address] [place] [phone] PCP - General 04/07/09 Transportation Equipment Painter Relationship Specialty Start Date End Date Davide Chao MD [address] [place] [phone] PCP - General 04/07/09 Transportation Equipment Painter Relationship Specialty Start Date End Date Davide Chao MD [address] [facility] [place] [address] PCP - General 04/07/09 Transportation Equipment Painter Relationship Specialty Start Date End Date Davide Chao [address] [facility] [place] [address] PCP - General 08/22/18 Transportation Equipment Painter Relationship Specialty Start Date End Date Davide Chao [address] [facility] [place] [address] PCP - General 08/22/18 Transportation Equipment Painter Relationship Specialty Start Date End Date Davide Chao [address] [facility] [address] PCP - General 08/22/18 Transportation Equipment Painter Relationship Specialty Start Date End Date Davide Chao [address] [facility] [address] PCP - General 08/22/18 Team Status: Active [...] MD Primary Care Provider Active Love Castillo REFORESTATION WORKER, REFORESTATION WORKER-C Attending Provider Active Team Status: Inactive Member Role Status Dates Dr. Davide Chao MD Primary Care Provider, Referr ing Provider Active Dr. Melissa Brasher DO Attending Provider Activ e Team Status: Inactive Member Role Status Dates Dr. Davide Chao MD Primary Care Provider Active Love Castillo REFORESTATION WORKER, REFORESTATION WORKER-C Attending Provider Active Team Status: Inactive Member Role Status Dates Dr. Davide Chao MD Primary Care Provider Active Dr. Melissa Brasher DO Attending Provider, Refe rring Provider Active Transportation Equipment Painter Relationship Specialty Start Date End Date Davide Chao MD [address] [place] [address] PCP - General 04/07/09 Transportation Equipment Painter Relationship Specialty Start Date End Date Davide Chao MD [address] [place] [phone] PCP - [facility] Family Medicine 06/23/17 Team Status: Inactive Member Role Status Dates Dr. Davide Chao MD Primary Care Provider, Referr ing Provider Active Larua Salinas CNM Attending Provider Active Team Status: Inactive Member Role Status Dates Dr. Davide Chao MD Primary Care Provider, Referr ing Provider Active Love Castillo REFORESTATION WORKER, REFORESTATION WORKER-C Attending Provider Active Team Status: Inactive Member [...] Active Jeanette Roach CNM Other Provider Active Transportation Equipment Painter Relationship Specialty Start Date End Date Davide Chao MD [address] [place], [place] [phone] PCP - General 04/07/09 Team Status: Inactive Member Role Status Dates Dr. Davide Chao MD Primary Care Provider Active Dr. Car Gage DO Attending Provider, Emergency Provider Active Team Status: Inactive Member Role Status Dates Dr. Davide Chao MD Primary Care Provider Active Dr. Yuri Crenshaw MD Other Provider Active Love Castillo REFORESTATION WORKER, REFORESTATION WORKER-C Other Provider Active ANTONI SingletonM Attending Provider, Referring Pr ovider Active Transportation Equipment Painter Relationship Specialty Start Date End Date Davide Chao MD [address] [place] [address] PCP - General 04/07/09 Team Status: Inactive Member Role Status Dates Dr. Davide Chao MD Primary Care Provider, Referr ing Provider Active Dr. Pam Morales MD Attending Provider Active Team Status: Active Member Role Status Dates Dr. Davide Chao MD Primary Care Provider Active Dr. Yuri Crenshaw MD Other Provider Active Love Castillo REFORESTATION WORKER, REFORESTATION WORKER-C Other Provider Active ANTONI SingletonM Attending Provider , Referring Provider, Other Provider [...] Dr. Yuri Crenshaw MD Other Provider Active Transportation Equipment Painter Relationship Specialty Start Date End Date Davide Chao MD [address] [place] [address] PCP - General 06/13/19 Team Status: Active [...] CNM Attending Provider, Referring Pro vider Active Transportation Equipment Painter Relationship Specialty Start Date End Date Davide Chao MD [address] [place] [address] PCP - General 04/07/09 Transportation Equipment Painter Relationship Specialty Start Date End Date Davide Chao MD [address] [place] [address] PCP - General 04/07/09 Transportation Equipment Painter Relationship Specialty Start Date End Date Davide Chao MD [address] [place] [address] PCP - General 06/13/19 Transportation Equipment Painter Relationship Specialty Start Date End Date Davide Chao MD [address] [place] [address] PCP - General 04/07/09 Transportation Equipment Painter Relationship Specialty Start Date End Date Davide Chao MD [address] [place] [address] PCP - General Family Medicine 06/23/17 Transportation Equipment Painter Relationship Specialty Start Date End Date Davide Chao MD [address] [place] [address] PCP - General 06/13/19 Transportation Equipment Painter Relationship Specialty Start Date End Date Davide Chao MD [address] [place] [address] PCP - General Family Medicine 06/23/17 Team Status: Active Member Role Status Dates Dr. Davide Chao MD Primary Care Provider Active Love Castillo REFORESTATION WORKER, REFORESTATION WORKER-C Attending Provider, Referring Provider Active Team Status: Inactive Member Role Status Dates Dr. Davide Chao MD Primary Care Provider Active Love Castillo REFORESTATION WORKER, REFORESTATION WORKER-C Attending Provider, Referring Provider Active Transportation Equipment Painter Relationship Specialty Start Date End Date Davide Chao MD [address] [place] [address] PCP - General 04/07/09 Transportation Equipment Painter Relationship Specialty Start Date End Date Davide Chao MD [address] [place], [place] [address] PCP - General 04/07/09 Transportation Equipment Painter Relationship Specialty Start Date End Date Davide Chao MD [address] [place] [address] PCP - General 04/07/09 Transportation Equipment Painter Relationship Specialty Start Date End Date Davide Chao MD [address] [place] [address] PCP - General 04/07/09 Transportation Equipment Painter Relationship Specialty Start Date End Date Davide Chao MD [address] [place] [address] PCP - General 04/07/09 Transportation Equipment Painter Relationship Specialty Start Date End Date Davide Chao MD [address] [place] [address] PCP - General 04/07/09 Transportation Equipment Painter Relationship Specialty Start Date End Date Davide Chao MD [address] [place] [address] PCP - General 04/07/09 Transportation Equipment Painter Relationship Specialty Start Date End Date Davide Chao MD [address] [place] [address] PCP - General 04/07/09 Harini Hoang APRN.BROOM MAKER [address] [place] [address] Matcher Offbearer Family Medicine 05/12/24 Isaac Marie APRN.BROOM MAKER [address] [place] [address] Matcher Offbearer Family [facility] 05/21/24 Transportation Equipment Painter Relationship Specialty Start Date End Date Davide Chao MD [address] [place] [address] PCP - General 04/07/09 Harini Hoang APRN.BROOM MAKER [address] [facility] [place] [address] Matcher Offbearer Family Medicine 05/12/24 Isaac Marie APRN.BROOM MAKER [address] [facility] [place] [address] Matcher Offbearer Family [facility] 05/21/24 Transportation Equipment Painter Relationship Specialty Start Date End Date Davide Chao MD [address] [facility] [place] [address] PCP - General 04/07/09 Harini Hoang APRN.BROOM MAKER [address] [facility] [place] [address] Matcher Offbearer Family Medicine 05/12/24 Isaac Marie APRN.BROOM MAKER [address] [facility] [place] [address] [facility] 05/[facility] Transportation Equipment Painter Relationship Specialty Start Date End Date Davide Chao MD [address] [facility] [place] [address] PCP - General 04/07/09 Harini Hoang APRN.BROOM MAKER [address] [facility] [place] [address] Matcher Offbearer Family Medicine 05/12/24 Isaac Marie APRN.BROOM MAKER [address] [facility] [place] [address] Matcher Offbearer Family [facility] 05/21/24 Team Status: Active Member Role Status Dates Dr. Davide Chao MD Primary Care Provider Active Team Status: Inactive Member Role Status Dates Dr. Davide Chao MD Primary Care Provider Active Start: June 10, 2024 End: June 10, 2024 Dr. Davide Chao MD Referring Provider Active Start: June 10, 2024 End: June 10, 2024 Love Castillo REFORESTATION WORKER, REFORESTATION WORKER-C Attending Provider Active Start: June 10, 2024 End: June 10, 2024 Team Status: Inactive Member Role Status Dates Dr. Davide Chao MD Primary Care Provider Active Start: June 10, 2024 End: June 10, 2024 Love Castillo REFORESTATION WORKER, REFORESTATION WORKER-C Attending Provider Active Start: June 10, 2024 End: June 10, 2024 Love Castillo REFORESTATION WORKER, REFORESTATION WORKER-C Referring Provider Active Start: June 10, 2024 [...] August 21, 2024 End: August 21, 2024 Transportation Equipment Painter Relationship Specialty Start Date End Date Davide Chao MD [address] [facility] [place] [address] PCP - General 04/07/09 Harini Hoang APRN.BROOM MAKER [address] [place] [address] Matcher Offbearer Family Medicine 05/12/24 Isaac Marie, BEET END SUPERVISOR.BROOM MAKER [address] [facility] [place] [address] Matcher Offbearer [facility] Medicine 05/21/24 Transportation Equipment Painter Relationship Specialty Start Date End Date Davide Chao MD [address] [place] [address] PCP - General 04/07/09 Harini Hoang, BEET END SUPERVISOR.BROOM MAKER [address] [facility] [place] [address] Matcher Offbearer Family Medicine 05/12/24 Isaac Marie APRN.BROOM MAKER [address] [place] [address] Matcher Offbearer Family [facility] 05/21/24 Transportation Equipment Painter Relationship Specialty Start Date End Date Davide Chao MD [address] [facility] [place] [address] PCP - General 04/07/09 Harini Hoang APRN.BROOM MAKER [address] [facility] [place] [address] [facility] 05/12/24 10/16/24 Isaac Marie APRN.BROOM MAKER [address] [facility], [place] [address] [facility] 05/21/24 Team Status: Inactive Member Role Status Dates Dr. Davide Chao MD Primary Care Provider Active Start: October 26, 2024 End: October 26, 2024 Dr. Melissa Brasher , DO Attending Provider Activ e Start: October 26, 2024 End: October 26, 2024 Dr. Melissa Brasher , Referring Provider Activ e Start: October 26, 2024 End: October 26, 2024 Transportation Equipment Painter Relationship Specialty Start Date End Date Davide Chao MD [address] [facility], [place] [address] PCP - General 04/07/09 Harini Hoang APRN.BROOM MAKER [address] [facility] [place] [address] Formerly [facility] 05/12/24 10/16/24 Isaac Marie APRN.BROOM MAKER [address] [facility], [place] [address] Formerly [facility] 05/21/24 Team Status: [...] Provider Active Star t: December 31, 2024 MAXX FULLER Referring Provider Active Star t: December 31, [...] January 05, 2025 End: January 05, 2025 Team Status: Inactive Member Role/Relationship Status Dates Dr. Davide Chao MD Primary Care Provider Active Start: January 07, 2025 End: January 07, 2025 Dr. Melissa Brasher DO Attending Provider Activ e Start: January 07, 2025 End: January 07, 2025 Team Status: Active Member Role/Relationship Status Dates Dr. Melissa Brasher DO Attending Provider Activ e Start: January 11, 2025 Dr. Davide Chao MD Primary Care Provider Active Start: January 11, 2025 Transportation Equipment Painter Relationship Specialty Start Date End Date Davide Chao MD [address] [place] [address] PCP - General 04/07/09 Isaac Marie APRN.BROOM MAKER [address] [place], [place] [address] [facility] 05/21/24 Transportation Equipment Painter Relationship Specialty Start Date End Date Davide Chao MD [address] [place], [place] [address] PCP - General 04/07/09 Isaac Marie APRN.BROOM MAKER [address] [place], [place] [address] Formerly [facility] 05/21/24 Team Status: Inactive Member Role/Relationship Status Dates Dr. Davide Chao MD Primary Care Provider Active Start: January 13, 2025 End: January 13, 2025 Dr. Yuri Crenshaw MD Attending Provider Active Start: January 13, 2025 End: January 13, 2025 Team Status: Inactive Member Role/Relationship Status Dates Dr. Melissa Brasher DO Attending Provider Activ e Start: January 11, 2025 End: January 11, 2025 Dr. Davide Chao MD Primary Care Provider Active Start: January 11, 2025 End: January 11, 2025 Team Status: Inactive Member Role/Relationship Status Dates Dr. Melissa Brasher DO Attending Provider Activ e Start: January 09, 2025 End: January 09, 2025 Dr. Davide Chao MD Primary Care Provider Active Start: January 09, 2025 End: January 09, 2025 Transportation Equipment Painter Relationship Specialty Start Date End Date Davide Chao MD [address] [place], [place] [address] PCP - General 04/07/09 Isaac Marie APRN.BROOM MAKER [address] [place] [address] Matcher Offbearer Family [facility] 05/21/24 Transportation Equipment Painter Relationship Specialty Start Date End Date Davide Chao MD [address] [place] [address] PCP - General 04/07/09 Isaac Marie APRN.BROOM MAKER [address] [place] [address] Matcher Offbearer [facility] 05/21/24 Transportation Equipment Painter Relationship Specialty Start Date End Date Davide Chao MD [address] [facility] [address] [place] [address] PCP - General Family Medicine 05/13/15 Transportation Equipment Painter Relationship Specialty Start Date End Date Davide Chao MD [address] [place] [address] PCP - General 04/07/09 Isaac Marie APRN.BROOM MAKER [address] [place] [address] [facility] 05/21/24 Transportation Equipment Painter Relationship Specialty Start Date End Date Davide Chao MD [address] [place] [address] PCP - General 04/07/09 Isaac Marie BEET END SUPERVISOR.BROOM MAKER [address] [place] [address] [facility] 05/21/24 Transportation Equipment Painter Relationship Specialty Start Date End Date Davide Chao MD [address] [place] [address] PCP - General 04/07/09 Isaac Marie APRN.BROOM MAKER [address] [place], [place] [address] Matcher Offbearer [facility] 05/21/24 Bindu Kebede, activities directorPaper Machine Operator [facility] Medicine 02/17/25 Transportation Equipment Painter Relationship Specialty Start Date End Date Davide Chao MD [address] [facility], [place] [address] PCP - General 04/07/09 Isaac Marie APRN.BROOM MAKER [address] [facility], [place] [id number] [facility] 05/21/24 Team Status: Active Member Role/Relationship Status Dates Dr. Davide Chao MD Primary care physician Active Team Status: Inactive Member Role/Relationship Status Dates Dr. Davide Chao MD Primary care physician Active Start: December 03, 2024 Dr. Bre Madrid MD Attending physician Active Start: December 03, 2024 Team Status: Inactive Member Role/Relationship Status Dates Dr. Davide Chao MD Primary care physician Active Start: December 20, 2024 End: December 20, 2024 Dr. Melissa Brasher , Attending physician Acti ve Start: December 20, 2024 End: December 20, 2024 Dr. Melissa Brasher , DO Referring Provider Activ e Start: December 20, 2024 End: December 20, 2024 Team Status: Active Member Role/Relationship Status Dates Dr. Davide Chao MD Primary care physician Active Start: December 20, 2024 Dr. Melissa Brasher DO Attending physician Acti ve Start: December 20, 2024 Dr. Melissa Brasher , DO Referring Provider Activ e Start: December 20, 2024 Dr. Melissa Brasher , DO Nurse Practitioner Activ e Start: December 20, 2024 Team Status: Active Member Role/Relationship Status Dates Dr. Davide Chao MD Primary care physician Active Start: December 31, 2024 Dr. Daljit Barrera MD Attending physician Active Start: December 31, 2024 Dr. Daljit Barrera MD Referring Provider Active S tart: December 31, 2024 Team Status: Active Member Role/Relationship Status Dates Dr. Davide Chao MD Primary care physician Active Start: December 31, 2024 MAXX FULLER Attending physician Active Sta rt: December 31, 2024 MAXX FULLER Referring Provider Active Star t: December 31, 2024 Team Status: Inactive Member Role/Relationship Status Dates Dr. Davide Chao MD Primary care physician Active Start: January 03, 2025 End: January 03, 2025 Dr. Davide Chao MD Referring Provider Active Start: January 03, 2025 End: January 03, 2025 Jeanette Roach CNM Attending physician Active Start: January 03, 2025 End: January 03, 2025 Team Status: Inactive Member Role/Relationship Status Dates Dr. Davide Chao MD Primary care physician Active Start: January 03, 2025 End: January 03, 2025 Jeanette Roach CNM Attending physician Active Start: January 03, 2025 End: January 03, 2025 Jeanette Roach CNM Referring Provider Active S tart: January 03, 2025 End: January 03, 2025 Team Status: Inactive Member Role/Relationship Status Dates Dr. Melissa Brasher DO Attending physician Acti ve Start: January 05, 2025 End: January 05, 2025 Dr. Davide Chao MD Primary care physician Active Start: January 05, 2025 End: January 05, 2025 Team Status: Inactive Member Role/Relationship Status Dates Dr. Davide Chao MD Primary care physician Active Start: January 07, 2025 End: January 07, 2025 Dr. Melissa Brasher DO Attending physician Acti ve Start: January 07, 2025 End: January 07, 2025 Team Status: Inactive Member Role/Relationship Status Dates Dr. Melissa Brasher DO Attending physician Acti ve Start: January 09, 2025 End: January 09, 2025 Dr. Davide Chao MD Primary care physician Active Start: January 09, 2025 End: January 09, 2025 Team Status: Inactive Member Role/Relationship Status Dates Dr. Melissa rBasher DO Attending physician Acti ve Start: January 11, 2025 End: January 11, 2025 Dr. Davide Chao MD Primary care physician Active Start: January 11, 2025 End: January 11, 2025 Team Status: Inactive Member Role/Relationship Status Dates Dr. Davide Chao MD Primary care physician Active Start: January 13, 2025 End: January 13, 2025 Dr. Yuri Crenshaw MD Attending physician Active Start: January 13, 2025 End: January 13, 2025 Team Status: Inactive Member Role/Relationship Status Dates Dr. Davide Chao MD Primary care physician Active Start: March 14, 2025 End: March 14, 2025 Dr. Davide Chao MD Referring Provider Active Start: March 14, 2025 End: March 14, 2025 Dr. Reuben Motley MD Attending physician Active Start: March 14, 2025 End: March 14, 2025 Team Status: Inactive Member Role/Relationship Status Dates Dr. Davide Chao MD Primary care physician Active Start: March 26, 2025 End: March 26, 2025 Dr. Sh[facility]io [facility] Active Start: March 26, 2025 End: March 26, 2025 Team Status: Inactive Member Role/Relationship Status Dates Dr. Davide Chao MD Primary care physician Active Start: December 20, 2024 End: December 20, 2024 Dr. Melissa Brasher DO Attending physician Acti ve Start: December 20, 2024 End: December 20, 2024 Dr. Melissa Brasher DO Referring Provider Activ e Start: December 20, 2024 End: December 20, 2024 Team Status: Active Member Role/Relationship Status Dates Dr. Davide Chao MD Primary care physician Active Start: December 20, 2024 Dr. Melissa Brasher DO Attending physician Acti ve Start: December 20, 2024 Dr. Melissa Brasher DO Referring Provider Activ e Start: December 20, 2024 Dr. Melissa Brasher DO Nurse Practitioner Activ e Start: December 20, 2024 Team Status: Active Member Role/Relationship Status Dates Dr. Davide Chao MD Primary care physician Active Start: December 31, 2024 Dr. Daljit Barrera MD Attending physician Active Start: December 31, 2024 Dr. Daljit Barrera MD Referring Provider Active S tart: December 31, 2024 Team Status: Active Member Role/Relationship Status Dates Dr. Davide Chao MD Primary care physician Active Start: December 31, 2024 MAXX FULLER Attending physician Active Sta rt: December 31, 2024 MAXX FULLER Referring Provider Active Star t: December 31, 2024 Team Status: Inactive Member Role/Relationship Status Dates Dr. Davide Chao MD Primary care physician Active Start: January 03, 2025 End: January 03, 2025 Dr. Davide Chao MD Referring Provider Active Start: January 03, 2025 End: January 03, 2025 Jeanette Roach CNM Attending physician Active Start: January 03, 2025 End: January 03, 2025 Team Status: Inactive Member Role/Relationship Status Dates Dr. Davide Chao MD Primary care physician Active Start: January 03, 2025 End: January 03, 2025 Jeanette Roach CNM Attending physician Active Start: January 03, 2025 End: January 03, 2025 Jeanette Roach CNM Referring Provider Active S tart: January 03, 2025 End: January 03, 2025 Team Status: Inactive Member Role/Relationship Status Dates Dr. Melissa Brasher DO Attending physician Acti ve Start: January 05, 2025 End: January 05, 2025 Dr. Davide Chao MD Primary care physician Active Start: January 05, 2025 End: January 05, 2025 Team Status: Inactive Member Role/Relationship Status Dates Dr. Davide Chao MD Primary care physician Active Start: January 07, 2025 End: January 07, 2025 Dr. Melissa Brasher DO Attending physician Acti ve Start: January 07, 2025 End: January 07, 2025 Team Status: Inactive Member Role/Relationship Status Dates Dr. Melissa Brasher DO Attending physician Acti ve Start: January 09, 2025 End: January 09, 2025 Dr. Davide Chao MD Primary care physician Active Start: January 09, 2025 End: January 09, 2025 Team Status: Inactive Member Role/Relationship Status Dates Dr. Melissa Brasher DO Attending physician Acti ve Start: January 11, 2025 End: January 11, 2025 Dr. Davide Chao MD Primary care physician Active Start: January 11, 2025 End: January 11, 2025 Team Status: Inactive Member Role/Relationship Status Dates Dr. Davide Chao MD Primary care physician Active Start: January 13, 2025 End: January 13, 2025 Dr. Yuri Crenshaw MD Attending physician Active Start: January 13, 2025 End: January 13, 2025 Team Status: Inactive Member Role/Relationship Status Dates Dr. Davide Chao MD Primary care physician Active Start: March 14, 2025 End: March 14, 2025 Dr. Davide Chao MD Referring Provider Active Start: March 14, 2025 End: March 14, 2025 Dr. Reuben Motley MD Attending physician Active Start: March 14, 2025 End: March 14, 2025 Team Status: Inactive Member Role/Relationship Status Dates Dr. Davide Chao MD Primary care physician Active Start: March 26, 2025 End: March 26, 2025 Dr. Shanae Osorio MD Attending physician Active Start: March 26, 2025 End: March 26, 2025 Dr. Shanae Osorio MD Emergency Departmen t Physician Active Start: March 26, 2025 End: March 26, 2025 Team Status: Inactive Member Role/Relationship Status Dates Dr. Davide Chao MD Primary care physician Active Start: April 07, 2025 End: April 07, 2025 Dr. Lukasz Skelton DO Emergency Departme nt Physician Active Start: April 07, 2025 End: April 07, 2025 Source Comments (unrecognize d section and content) In the event this informatio n is protected by the Federal Confidentiality of Alcohol and Drug Abuse Patient Records regulations: The Federal rules restrict any use of the information to criminally investigate or prosecute any alcohol or drug abuse patient.[facility] ClinicIn the event this information is protected by the Federal Confidentiality of Alcohol and Drug Abuse Patient Records regulations: The Federal rules restrict any use of the information to criminally investigate or prosecute any alcohol or drug abuse patient.[facility] HospitalIn the event this information is protected by the Federal Confidentiality of Alcohol and Drug Abuse Patient Records regulations: The Federal rules restrict any use of the information to criminally investigate or prosecute any alcohol or drug abuse patient.[facility] HospitalIn the event this information is protected by the Federal Confidentiality of Alcohol and Drug Abuse Patient Records regulations: The Federal rules restrict any use of the information to criminally investigate or prosecute any alcohol or drug abuse patient.[facility] HospitalIn the event this information is protected by the Federal Confidentiality of Alcohol and Drug Abuse Patient Records regulations: The Federal rules restrict any use of the information to criminally investigate or prosecute any alcohol or drug abuse patient.[facility] HospitalIn the event this information is protected by the Federal Confidentiality of Alcohol and Drug Abuse Patient Records regulations: The Federal rules restrict any use of the information to criminally investigate or prosecute any alcohol or drug abuse patient.[facility] HospitalIn the event this information is protected by the Federal Confidentiality of Alcohol and Drug Abuse Patient Records regulations: The Federal rules restrict any use of the information to criminally investigate or prosecute any alcohol or drug abuse patient.[facility] HospitalIn the event this information is protected by the Federal Confidentiality of Alcohol and Drug Abuse Patient Records regulations: The Federal rules restrict any use of the information to criminally investigate or prosecute any alcohol or drug abuse patient.[facility] HospitalIn the event this information is protected by the Federal Confidentiality of Alcohol and Drug Abuse Patient Records regulations: The Federal rules restrict any use of the information to criminally investigate or prosecute any alcohol or drug abuse patient.[facility] HospitalIn the event this information is protected by the Federal Confidentiality of Alcohol and Drug Abuse Patient Records regulations: The Federal rules restrict any use of the information to criminally investigate or prosecute any alcohol or drug abuse patient.[facility] HospitalIn the event this information is protected by the Federal Confidentiality of Alcohol and Drug Abuse Patient Records regulations: The Federal rules restrict any use of the information to criminally investigate or prosecute any alcohol or drug abuse patient.[facility] HospitalIn the event this information is protected by the Federal Confidentiality of Alcohol and Drug Abuse Patient Records regulations: The Federal rules restrict any use of the information to criminally investigate or prosecute any alcohol or drug abuse patient.[facility] HospitalIn the event this information is protected by the Federal Confidentiality of Alcohol and Drug Abuse Patient Records regulations: The Federal rules restrict any use of the information to criminally investigate or prosecute any alcohol or drug abuse patient.[facility] HospitalIn the event this information is protected by the Federal Confidentiality of Alcohol and Drug Abuse Patient Records regulations: The Federal rules restrict any use of the information to criminally investigate or prosecute any alcohol or drug abuse patient.[facility] HospitalIn the event this information is protected by the Federal Confidentiality of Alcohol and Drug Abuse Patient Records regulations: The Federal rules restrict any use of the information to criminally investigate or prosecute any alcohol or drug abuse patient.[facility] HospitalIn the event this information is protected by the Federal Confidentiality of Alcohol and Drug Abuse Patient Records regulations: The Federal rules restrict any use of the information to criminally investigate or prosecute any alcohol or drug abuse patient.[facility] HospitalIn the event this information is protected by the Federal Confidentiality of Alcohol and Drug Abuse Patient Records regulations: The Federal rules restrict any use of the information to criminally investigate or prosecute any alcohol or drug abuse patient.[facility] HospitalIn the event this information is protected by the Federal Confidentiality of Alcohol and Drug Abuse Patient Records regulations: The Federal rules restrict any use of the information to criminally investigate or prosecute any alcohol or drug abuse patient.[facility] HospitalIn the event this information is protected by the Federal Confidentiality of Alcohol and Drug Abuse Patient Records regulations: The Federal rules restrict any use of the information to criminally investigate or prosecute any alcohol or drug abuse patient.[facility] HospitalIn the event this information is protected by the Federal Confidentiality of Alcohol and Drug Abuse Patient Records regulations: The Federal rules restrict any use of the information to criminally investigate or prosecute any alcohol or drug abuse patient.[facility] HospitalIn the event this information is protected by the Federal Confidentiality of Alcohol and Drug Abuse Patient Records regulations: The Federal rules restrict any use of the information to criminally investigate or prosecute any alcohol or drug abuse patient.[facility] HospitalIn the event this information is protected by the Federal Confidentiality of Alcohol and Drug Abuse Patient Records regulations: The Federal rules restrict any use of the information to criminally investigate or prosecute any alcohol or drug abuse patient.[facility] HospitalIn the event this information is protected by the Federal Confidentiality of Alcohol and Drug Abuse Patient Records regulations: The Federal rules restrict any use of the information to criminally investigate or prosecute any alcohol or drug abuse patient.[facility] HospitalIn the event this information is protected by the Federal Confidentiality of Alcohol and Drug Abuse Patient Records regulations: The Federal rules restrict any use of the information to criminally investigate or prosecute any alcohol or drug abuse patient.[facility] HospitalIn the event this information is protected by the Federal Confidentiality of Alcohol and Drug Abuse Patient Records regulations: The Federal rules restrict any use of the information to criminally investigate or prosecute any alcohol or drug abuse patient.[facility] HospitalIn the event this information is protected by the Federal Confidentiality of Alcohol and Drug Abuse Patient Records regulations: The Federal rules restrict any use of the information to criminally investigate or prosecute any alcohol or drug abuse patient.[facility] HospitalIn the event this information is protected by the Federal Confidentiality of Alcohol and Drug Abuse Patient Records regulations: The Federal rules restrict any use of the information to criminally investigate or prosecute any alcohol or drug abuse patient.[facility] HospitalIn the event this information is protected by the Federal Confidentiality of Alcohol and Drug Abuse Patient Records regulations: The Federal rules restrict any use of the information to criminally investigate or prosecute any alcohol or drug abuse patient.[facility] HospitalIn the event this information is protected by the Federal Confidentiality of Alcohol and Drug Abuse Patient Records regulations: The Federal rules restrict any use of the information to criminally investigate or prosecute any alcohol or drug abuse patient.[facility] HospitalIn the event this information is protected by the Federal Confidentiality of Alcohol and Drug Abuse Patient Records regulations: The Federal rules restrict any use of the information to criminally investigate or prosecute any alcohol or drug abuse patient.[facility] HospitalIn the event this information is protected by the Federal Confidentiality of Alcohol and Drug Abuse Patient Records regulations: The Federal rules restrict any use of the information to criminally investigate or prosecute any alcohol or drug abuse patient.[facility] HospitalIn the event this information is protected by the Federal Confidentiality of Alcohol and Drug Abuse Patient Records regulations: The Federal rules restrict any use of the information to criminally investigate or prosecute any alcohol or drug abuse patient.[facility] HospitalIn the event this information is protected by the Federal Confidentiality of Alcohol and Drug Abuse Patient Records regulations: The Federal rules restrict any use of the information to criminally investigate or prosecute any alcohol or drug abuse patient.[facility] HospitalIn the event this information is protected by the Federal Confidentiality of Alcohol and Drug Abuse Patient Records regulations: The Federal rules restrict any use of the information to criminally investigate or prosecute any alcohol or drug abuse patient.[facility] HospitalIn the event this information is protected by the Federal Confidentiality of Alcohol and Drug Abuse Patient Records regulations: The Federal rules restrict any use of the information to criminally investigate or prosecute any alcohol or drug abuse patient.[facility] HospitalIn the event this information is protected by the Federal Confidentiality of Alcohol and Drug Abuse Patient Records regulations: The Federal rules restrict any use of the information to criminally investigate or prosecute any alcohol or drug abuse patient.[facility] HospitalIn the event this information is protected by the Federal Confidentiality of Alcohol and Drug Abuse Patient Records regulations: The Federal rules restrict any use of the information to criminally investigate or prosecute any alcohol or drug abuse patient.[facility] HospitalIn the event this information is protected by the Federal Confidentiality of Alcohol and Drug Abuse Patient Records regulations: The Federal rules restrict any use of the information to criminally investigate or prosecute any alcohol or drug abuse patient.[facility] HospitalIn the event this information is protected by the Federal Confidentiality of Alcohol and Drug Abuse Patient Records regulations: The Federal rules restrict any use of the information to criminally investigate or prosecute any alcohol or drug abuse patient.[facility] HospitalIn the event this information is protected by the Federal Confidentiality of Alcohol and Drug Abuse Patient Records regulations: The Federal rules restrict any use of the information to criminally investigate or prosecute any alcohol or drug abuse patient.[facility] HospitalIn the event this information is protected by the [facility] Confidentiality of Alcohol and Drug Abuse Patient Records regulations: The Federal rules restrict any use of the information to criminally investigate or prosecute any alcohol or drug abuse patient.[facility] HospitalIn the event this information is protected by the Federal Confidentiality of Alcohol and Drug Abuse Patient Records regulations: The Federal rules restrict any use of the information to criminally investigate or prosecute any alcohol or drug abuse patient.[facility] Ordered Prescriptions (unrec ognized section and [...] IntraMUSCular, ONCE, 1 dose, On Mon07/13/22 at [id number] (Given - Provider: Jailyn Corley RN) [...] 1 dose 2338 (Given - Provider: Jessica Tijerina, MICHAEL) sodium chloride 0.9 % bolus 1,000 mL (COMPLETED) 1,000 mL, intravenous, at 1,000 mL/hr, Administer over 1 Hours, Once, On Mon06/06/23 at 2320, For 1 dose 2338 (New Bag - Provider: Jessica Tijerina, MICHAEL) 003 (Stopped - Provider: Jessica Tijerina RN) Goals (unrecognized section and content) Type Care Experience svdLabor Preferences -CB/BF classes: nolabor support person: Willlabor intervention preferences: []pain management options preferred: wants epidural if stablecut cord/dad catch: cordbreastfeeding: bottlePP control planned: spouse vasectomy now completediscussed possible routes of delivery and associated risks: []special requests: [] FOR RECORDS PERTAINING TO PATIENTS WHO ARE [...] BE BASED ON THE PRIMARY CLINICAL RECORDS. [employer] provides no warranty or guarantee of the accuracy or completeness of information in this document.
[2025-05-28 23:47] VITALS: PULSE 90; RESP 16; TEMP 36.3; O2SAT 98
[2025-05-28 23:52] VITALS: BP 101/68; PULSE 92
[2025-05-29 00:04] VITALS: BP 103/64; PULSE 82
[2025-05-29 00:17] LABS: Color, Urine Yellow (Yellow); Glucose, Dipstick Normal (Normal); Ketone-Dipstick 5 mg/dl (Negative); Leukocyte Esterase-Dipstick 500 /ul (Negative); Nitrite-Dipstick Negative (Negative); Occult Blood-Urine Negative /ul (Negative); Protein-Dipstick Negative (Negative); Specific Gravity, Urine 1.015 (1.002-1.030); Urine Bilirubin Dipstick Negative (Negative)
[2025-05-29 00:24] VITALS: BMI 31.1
--- NOTE | 2025-05-29 06:14 | OB.TRI.NOTE ---
HPI - General General Date of Admission: 05/28/25 Date of Service: 05/28/25 Chief Complaint: Visual disturbance HPI Narrative QUE SANCHEZ, is a 35 F who presents blurry vision. No headache. No swelling. Has hx of anxiety. BP normal. No protein in the urine. Vision improved spontaneously. Has had several episodes of panic attacks this month. Maternal Data Information Final JOY: 09/17/25 Gestational age: 24+1 [facility] Medical History (Updated 05/29/25 @ 06:[address] Melissa Connor MD) 24 weeks gestation of Cryptogenic stroke Multiple personality disorder History of Clostridium difficile infection Alcohol use Arthritis Injury of back Injury of head and neck Seizures TIA (transient ischemic attack) Eosinophilic esophagitis Difficulty swallowing History of ulceration History of IBS Electronic cigarette use History of echocardiogram History of stress test Tilt table evaluation Cardiology follow-up encounter Chest pain History of irregular heartbeat History of atrial fibrillation Tachycardia Abnormality of urination Abdominal pain affecting , antepartum Fungal toenail infection Home Medications ?Medication ?Instructions ?Recorded ?Last Taken ?Type prenat.vits,malgorzata,rwc-jiii-onlev 1 tab PO 01/03/25 05/27/25 History aspirin 81 mg tablet 162 mg PO QDAY 03/14/25 05/28/25 History buspirone 5 mg tablet 5 mg PO TID 05/28/25 05/28/25 History omeprazole magnesium 20 mg 20 mg PO DAILY 05/28/25 05/28/25 History capsule,delayed release ([employer] (omeprazole)) Allergy/AdvReac Type Severity Reaction Status Date / Time lactose Allergy Mild Upset Verified 05/28/25 23:56 Stomach metronidazole (From Flagyl) Allergy Upset Verified 05/28/25 23:56 Stomach Phenylpiperazine AdvReac suicidal Verified 05/28/25 23:56 Antidepressant ideation Tetracyclic Antidepressants AdvReac suicidal Verified 05/28/25 23:56 ideation Tricyclic Antidepressants AdvReac suicidal Verified 05/28/25 23:56 and Tricy ideation Family History Maternal Grandfather Hypertension Surgical History S/P dilation and curettage (~10/03/23) Status post hysteroscopy History of cardiac radiofrequency ablation History of esophagogastroduodenoscopy (EGD) History of colonoscopy History of loop electrical excision procedure (LEEP) Status post tubal ligation History of surgery Sterilization Hx of cholecystectomy Social History household members: children Smoking Status: Former smoker how long ago did patient quit smokin.7 yrs alcohol intake: never substance use type: does not use caffeine: Yes what type of physical activity do you participate in: none seatbelt use: always do you feel safe at home: Yes History 7 Elective abortions Hx Para 6 Spontaneous abortions Hx # Term Pregnancies Ectopic pregnancies Hx # Pregnancies Multiple births # of living children Past Pregnancies Del. Date Name GA/Weeks Outcome Route Bth Weight Infant Gen Labor Lgth Anesthesia Del Locatn Provider FOB 02/23/08 Radha 42 live - full term 7lbs 2oz Female 14 epidural [facility] Dr. Emilia Jung 09/07/10 Kaila 39 live - full term 7lbs 4oz Female 46 hours [facility] Satya 07/12/12 Pj 38 live - full term 7lbs 6oz Male 4 hours [facility] Lilli Piña 07/15/16 Missy 37 live - full term 7lbs 8oz Male 12 hours [facility] Dr. Jurado 10/12/21 Papillion 40 live - full term 8lbs 2oz Male [facility] [address] Rueda Will 03/10/24 Von live - full term Male [facility] Delivery Date: 02/23/08 Last Updated by: Tameka Harp Cord wrapped around neck twice and around body once. Born not breathing Delivery Date: 09/07/10 Last Updated by: Tameka Harp Cord around neck x1 Delivery Date: 07/12/12 Last Updated by: Tameka Harp Blood pressure dropped, passed out during labor, was getting prepped for csection when she woke up and delivered vaginally. Delivery Date: 07/15/16 Last Updated by: Tameka Harp Anemia Delivery Date: 10/12/21 Last Updated by: Tameka Harp No issues during or delivery. NST FHR Rate Baby A Baseline: 150 Assessment & Plan (1) Vision changes: (2) 24 weeks gestation of : PLAN: Plan Follow up as scheduled
== END 2025-05-29 00:40 | disposition home or self-care (01) ==
LOC: WPOUT 23:33 → WP 23:34
PROVIDERS: PCP Family Medicine; Referring Provider Obstetrics & Gynecology; Visit Provider Obstetrics & Gynecology
DX: O99.891 Other specified diseases and conditions complicating pregnancy (principal); H53.8 Other visual disturbances; O99.342 Other mental disorders complicating pregnancy, second trimester; F41.0 Panic disorder [episodic paroxysmal anxiety]; Z3A.24 24 weeks gestation of pregnancy; Z86.73 Personal history of transient ischemic attack (TIA), and cerebral infarction without residual deficits; Z79.82 Long term (current) use of aspirin; Z79.899 Other long term (current) drug therapy; Z87.891 Personal history of nicotine dependence
CPT/HCPCS: 59050; 81002; 87086; 87088; 99221; G0378